=== PATIENT | female | born 1960 | race Caucasian/White ===

== ENCOUNTER 2019-04-23 20:34 | Inpatient (IN) | payer MEDICAID, SELFPAY ==
[2019-04-23 20:40] VITALS: BP 218/87; TEMP 36.8
--- NOTE | 2019-04-23 20:44 | W.ED.GENAD ---
Discharge Plan Disposition Patient Disposition: [facility] INPATIENT Condition: Improving Discharge Details Chief Complaint: Abd Prob Clinical Impression: Left sided abdominal pain, Altered bowel elimination due to intestinal ostomy Primary Care Provider: Hanane Martinez ED Provider: Ten Albrecht Home Meds and New Rx's Prescriptions: No Action docusate sodium [Colace] 100 mg Capsule 50 mg PO DAILY RF: 0 Medical Decision Making This is a 58-year-old female who presents today for severe abdominal pain. Patient had a colectomy on March 19 for diverticulitis. Over the last 24 hours she has had no output from her ostomy site, pain began this afternoon and is currently severe. Entire abdomen is diffusely tender throughout, guarding and rebound is present. Near absent bowel sounds. Patient does appear to be in notable pain and distress. Differential is highest for obstruction, postop perforation or infection, and less likely volvulus or atypical intussusception. We will treat the patient's pain, gently rehydrate, get a CT scan for further differentiation monitor closely. 10:[address] scan has returned, no evidence of obstruction. The stomach is notably distended, however there is no evidence of small bowel obstruction. Digital exam of the stoma for the patient's ostomy site shows easy invagination with no signs of obstruction. I did contact radiology and spoke with radiologist and they see no signs of obstruction distally anywhere else. Potential gastric outlet obstruction, but no radiographic evidence of this otherwise. Laboratory work-up shows white count of 12, no bandemia. Potassium 3.4, electrolytes otherwise normal. Lactate mildly elevated at 2 lipase normal. Patient still has no output from her ostomy site. This does concern me. The pain is improved with the Dilaudid, however she still has definite left-sided abdominal pain on palpation. I did contact surgery Dr. Wayne discussed the case and imaging findings with her. At this time she would like to keep the patient overnight for observation. We will place an NG tube, I have placed orders including continued hydration fluids at 150 cc/h, in addition to Ofirmev and Toradol being the primary means of pain control with morphine only being used for breakthrough pain. Patient will remain n.p.o. otherwise. I have extensively reviewed the treatment plan with the patient. I have addressed all patient concerns at this time. I have also discussed the plan with the admitting physician and they agree with the current assessment and plan and have agreed to assume responsibility for the patient. All parties demonstrate verbal understanding and agreement with our assessment and plan at this time. FINDINGS: There is minimal atelectasis within the lung bases. There are degenerative changes of the spine. There is no liver mass. There is no intrahepatic biliary dilatation. The patient is status post cholecystectomy. There are no ductal stones. The pancreas is unremarkable. The spleen is unremarkable. There is no adrenal mass. There is no hydronephrosis. There are no renal calculi. There is no perinephric stranding. There is no renal mass. The aorta is normal in caliber. The IVC is normal in caliber. There is no retroperitoneal adenopathy. There is no mesenteric adenopathy. The stomach is filled with food. There is no gastric wall thickening. The small bowel loops in the upper abdomen are nondistended with no bowel wall thickening. There are changes of left-sided colostomy. There is some feces seen within the colon and some scattered colonic diverticuli. There is some edema within the subcutaneous fat likely due to recent surgery. In the pelvis: A normal appendix is seen within the right lower quadrant. The bladder is unremarkable. The patient is status post hysterectomy. There are no adnexal masses. There is no free fluid within the pelvis. There is no inguinal adenopathy. There is no pelvic adenopathy. There are postop changes of the rectosigmoid colon. IMPRESSION: 1. Left-sided colostomy. Stranding of the mesenteric fat likely due to recent surgery. 2. The stomach is distended with food. No small bowel obstruction is identified. Thank you for allowing us to participate in the care of your patient. Dictated and Authenticated by: Smuan Bledsoe MD 04/23/2019 9:28 PM Eastern Time ([place] & [place]) HPI General Date/Time Provider Initiated Documentation: 04/23/19 20:35. HPI Narrative: 58-year-old female with no significant past medical history but a past surgical history positive for cholecystectomy, hysterectomy, umbilical hernia repair x2, with diverticulitis and subsequent colectomy and wound VAC on April 08 of this year, performed by Dr. Hodge of the [facility], surgery was performed at [facility] though. Patient recently moved to [place]. Patient states that she has been having normal output from her ostomy until yesterday, she has not had any output for the last 24 hours, she developed mild pain earlier this afternoon which is subsequently become severe pain this evening. She has had no vomiting, but does admit to nausea. Pain is described as stabbing crampy and severe. There was a small amount of blood at her ostomy site earlier today. She denies any fever or chills. She denies any chest pain or urinary symptoms. Wound VAC is still in place. No other complaints at this time. Related Data Home Medications Medication Instructions Recorded Confirmed docusate sodium [Colace] 50 mg PO DAILY 04/23/19 04/23/19 Allergies Allergy/AdvReac Type Severity Reaction Status Date / Time No Known Allergies Allergy Unverified 04/23/19 20:59 Review of Systems All systems reviewed & are unremarkable except as noted in HPI and below PFSH Medical History (Updated 04/23/19 @ 22:11 by Ten Albrecht DO) Diverticulitis (Chronic) Surgical History (Updated 04/23/19 @ 21:05 by Magaly Ballard) History of (Chronic) History of cholecystectomy (Chronic) History of colostomy (Acute) History of hernia repair (Chronic) History of partial colectomy (Acute) Social History Smoking/Tobacco Use Status: Unknown Do you feel safe at home: Yes Do you feel safe in your relationship?: Yes Exam Narrative Exam Narrative: 1.Const: Well-nourished, Well-developed, appearing stated age 2.Eyes: PERRL, no conjunctival injection, and symmetrical lids. 3.ENT: Atraumatic external nose and ears. Moist MM. Neck: Symmetric, trachea midline, No thyromegaly. 4.CVS: +S1/S2, No murmurs or gallops. Peripheral pulses 2+ and equal in all extremities. Brisk capillary refill in all extremities. 5.RESP: Unlabored respiratory effort. Clear to auscultation bilaterally. No wheezes rales or rhonchi 6.GI: Tense abdomen, mild distention, near absent bowel sounds, notable tenderness with voluntary guarding throughout. No tenderness over the stoma itself, however the remainder of the surrounding abdomen is exquisitely tender. Wound VAC in place with no redness erythema or drainage. Stoma itself is pink/reddish, small amount of minimal blood. Palpation of the ostomy site allows digital invagination without difficulty, no signs of ostomy site obstruction. 7.MSK: Normocephalic/Atraumatic, Extremities w/o deformity or ttp No cyanosis or clubbing, Normal movement of all extremities 8.Skin: Warm, Dry. No rashes or lesions. 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 Sensation grossly intact, no focal neurologic deficits. 10.Psych: (AAO) x3. Appropriate mood and affect
[2019-04-23] MEDS: HYDROmorphone 2 MG/ML VIAL 1 MG IVP (20:49)
[2019-04-23] MEDS: Normal Saline 1,000 ML 1000 ML IV (20:50)
--- NOTE | 2019-04-23 20:56 | DI.CT_ITS ---
EXAM: CT ABDOMEN PELVIS W CLINICAL HISTORY: Recent colectomy, distention, no output for 24 hrs TECHNIQUE: Post IV contrast. Without oral contrast. COMPARISON: No exams were available for comparison FINDINGS: The lung bases show mild dependent changes. The liver, spleen, pancreas, kidneys and adrenals are un remarkable. The patient is status post cholecystectomy and hysterectomy. There are surgical clips in the anterior abdominal wall. The left sided colostomy is seen. There is some stranding in this a lorne which is likely secondary to the recent surgery. There is sigmoid diverticulosis. There is no ev idence of bowel obstruction. There is no free air or free fluid. The appendix appears normal. Bladder is unremarkable. The aorta is calcified and shows slight focal dilatation 2.2 cm. IMPRESSION: Status post left lower quadrant colostomy. There is stranding in the fat surrounding the ostomy pres umably related to recent surgery. There is no evidence of obstruction.
[2019-04-23] MEDS: Omnipaque 350 MG/ML 100 ML BTL IJ (20:57)
[2019-04-23 21:00] LABS: Abs Immature Grans 0.02 k/cumm (0.0-0.09); Absolute Basophil Count 0.08 k/cumm (0.0-0.2); Absolute Eosinophil Count 0.59 k/cumm (0.0-0.7); Absolute Lymphocyte Count 4.84 k/cumm (1.2-3.4); Absolute Neutrophil Count 6.21 k/cumm (1.2-6.7); Basophils % 0.6; Eosinophils % 4.7; HCT 43.1 % (36.0-46.0); HGB 14.3 g/dL (12.0-15.5); Immature Grans % 0.2 %; Lymphocytes % 38.3; Mean Corp. HGB Concentration 33.2 g/dL (32.0-36.0); Mean Corpuscular Hemoglobin 30.4 pg (27.0-33.0); Mean Corpuscular Volume 91.7 fL (80-95); Mean Platelet Volume 9.5 fL (8.0-11.0); Monocytes % 7.1; Neutrophils % 49.1; Platelet Count 371 x1000/uL (130-400); RBC Distribution Width 14.8 % (11.7-14.6); White Blood Cell Count 12.65 k/cumm (4.4-10.8)
[2019-04-23 21:14] LABS: ALT 22 U/L (14-59); AST 17 U/L (15-37); Albumin 3.5 g/dL (3.4-5.0); Alkaline Phosphatase 104 U/L (46-116); BUN 16 mg/dL (7-18); Bilirubin, Total 0.2 mg/dL (0.2-1.0); CREATININE 0.81 mg/dL (0.55-1.02); Calcium 9.1 mg/dL (8.5-10.1); Chloride 105 mmol/L (98-107); Glucose 159 mg/dL (74-106); Lipase 110 U/L (73-393); Potassium 3.4 mmol/L (3.5-5.1); Sodium 141 mmol/L (136-145); Total Protein 7.7 g/dL (6.4-8.2)
--- NOTE | 2019-04-23 21:29 | DI.VRAD_ITS ---
PROCEDURE INFORMATION: Exam: CT Abdomen And Pelvis With Contrast Exam date and time: 04/23/2019 8:44 PM Age: 58 years old Clinical indication: Abdominal pain; Generalized; Prior surgery; Patient HX: Recent colectomy, distention; Additional info: No output for 24 hours TECHNIQUE: Imaging protocol: Computed tomography of the abdomen and pelvis with intravenous contrast. COMPARISON: No relevant prior studies available. FINDINGS: There is minimal atelectasis within the lung bases. There are degenerative changes of the spine. There is no liver mass. There is no intrahepatic biliary dilatation. The patient is status post cholecystectomy. There are no ductal stones. The pancreas is unremarkable. The spleen is unremarkable. There is no adrenal mass. There is no hydronephrosis. There are no renal calculi. There is no perinephric stranding. There is no renal mass. The aorta is normal in caliber. The IVC is normal in caliber. There is no retroperitoneal adenopathy. There is no mesenteric adenopathy. The stomach is filled with food. There is no gastric wall thickening. The small bowel loops in the upper abdomen are nondistended with no bowel wall thickening. There are changes of left-sided colostomy. There is some feces seen within the colon and some scattered colonic diverticuli. There is some edema within the subcutaneous fat likely due to recent surgery. In the pelvis: A normal appendix is seen within the right lower quadrant. The bladder is unremarkable. The patient is status post hysterectomy. There are no adnexal masses. There is no free fluid within the pelvis. There is no inguinal adenopathy. There is no pelvic adenopathy. There are postop changes of the rectosigmoid colon. IMPRESSION: 1. Left-sided colostomy. Stranding of the mesenteric fat likely due to recent surgery. 2. The stomach is distended with food. No small bowel obstruction is identified. Dictated and Authenticated by: Suman Bledsoe MD. Ordering:ANITA Caal MD
[2019-04-23] MEDS: Ondansetron 4 MG/2 ML VIAL (22:30)
[2019-04-23] MEDS: ACETAMINOPHEN 1,000 MG/100 ML BTL 400 MG IVPB (22:30)
[2019-04-23 22:32] VITALS: BP 168/90; PULSE 74; RESP 18; TEMP 36.8; O2SAT 98
[2019-04-23 23:09] VITALS: BP 119/74; PULSE 63; RESP 18; TEMP 36; O2SAT 97
[2019-04-23] MEDS: Normal Saline 1,000 ML 150 ML IV (23:44)
[2019-04-24 03:28] VITALS: BP 136/69; PULSE 62; RESP 17; TEMP 36.6; O2SAT 97
[2019-04-24] MEDS: Normal Saline 1,000 ML 150 ML IV (03:44)
[2019-04-24] MEDS: ACETAMINOPHEN 1,000 MG/100 ML BTL 400 MG IVPB (03:56)
[2019-04-24 07:03] VITALS: BP 135/83; PULSE 63; RESP 16; TEMP 35.8; O2SAT 96
[2019-04-24 07:41] LABS: Bilirubin Negative (Negative); Blood Trace-intact (Negative); Clarity Clear (Clear); Glucose Negative (Negative); Ketones Negative (Negative); Leukocyte Esterase Negative (Negative); Nitrite Negative (Negative); Specific Gravity 1.015 (1.005-1.025); Urobilinogen 0.2 EU/dL (Up TO 0.2); pH 5.5 (5-8)
[2019-04-24 07:52] LABS: Bacteria Rare HPF (Negative); C & S Indicated? No; Casts Negative LPF (Negative); Crystals Negative HPF (Negative); Epithelial Cells Few HPF (Negative); Mucus Negative (Negative); WBC 0-2 HPF (0-5)
--- NOTE | 2019-04-24 09:11 | INITIAL_ITS ---
- If Service Date Differs Date of service: 04/24/19 Time of Service: 09:11 Care Management Initial Assess REASON FOR HOSPITALIZATION:: Abdominal pain, Gastric Distension PAST MEDICAL HISTORY/PAST SURGICAL HISTORY:: Patient had a colectomy on March 19 for ruptured diverticulitis. She now has an ostomy, and a wound vac. Tobacco dependency. Surgical hx: , hattie, colostomy, hernia repair, partial colectomy. PREVIOUS FUNCTIONAL STATUS/SOCIAL/FAMILY SUPPORTS:: Jahaira lives in [place], [place] her main support is her sister in law Kimberly Holm. Jahaira is at baseline indepedent with ADL's, meals and other daily functions. 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 Jahaira currently has a NG tube in place. Jahaira states she wants to have a cigarette and does not want nicotine replacement. Jahaira states she has home health services for the wound vac and ostomy she receives dressing changes three times a week. ADVANCE DIRECTIVES:: None on file she states she has the forms however she has not completed them to date. Has patient been provided with information about the portal?: Yes Did the patient sign up for the portal?: No CODE STATUS:: Full Code INSURANCE COVERAGE / FINANCIAL ISSUES:: [place] Medicaid pending, she was told last week it was all set and will be rectroactive CURRENT HOME/COMMUNITY SERVICES/EQUIPMENT:: Home Health nursing, wound vac PRIMARY CARE PHYSICIAN:: Hanane Martinez, [place] POTENTIAL DISCHARGE NEEDS:: Follow up with surgical provider and resumption of home health services for nursing as time of discharge. PATIENT/FAMILY EDUCATION NEEDS:: Discharge edcuation, limitations and follow up plan of care including ask me three and self management. ANTICIPATED BARRIERS TO DISCHARGE:: None TRANSPORTATION:: Via private car with family at time of discharge PLAN:: Jahaira will be discharged home when medically ready. Her sister in law will bring in the dressing supplies for the wound vac to change prior to discharge. She will need resumption of home health services nursing on discharge instructions. CM to continue to assess for potential discharge needs.
[2019-04-24 09:40] LABS: Lactate 0.7 mmol/L (0.6-1.4)
[2019-04-24 09:41] LABS: HCT 39.7 % (36.0-46.0); HGB 12.7 g/dL (12.0-15.5); Mean Corpuscular Hemoglobin 29.9 pg (27.0-33.0); Mean Corpuscular Volume 93.4 fL (80-95); Mean Platelet Volume 9.2 fL (8.0-11.0); Platelet Count 302 x1000/uL (130-400); RBC 4.25 m/cumm (4.00-5.20); RBC Distribution Width 14.7 % (11.7-14.6); White Blood Cell Count 9.54 k/cumm (4.4-10.8)
[2019-04-24 09:49] LABS: Anion Gap 9.3 mmol/L (3-11); BUN 13 mg/dL (7-18); CO2 26.7 mmol/L (21.0-32.0); CREATININE 0.52 mg/dL (0.55-1.02); Calcium 8.4 mg/dL (8.5-10.1); Chloride 108 mmol/L (98-107); Glucose 92 mg/dL (74-106); Magnesium 1.7 mg/dL (1.8-2.4); Potassium 3.5 mmol/L (3.5-5.1); Sodium 144 mmol/L (136-145)
--- NOTE | 2019-04-24 09:56 | HPE_ITS ---
Date of service: 04/24/19 Time of Service: 09:57 Assessment and Plan Assessment and plan (1) Constipation: Status: Acute Assessment and plan: A\\ 58 year old female status post Hartmans procedure for diverticulitis. Was doing well up until yesterday when she had increased abdominal pain around the ostomy. Also had had no stool through her ostomy in 24 hours. Has hx of intermittent constipation and takes Colace as needed. CT scan showed no ileus or obstruction. Only abnormality was gastric distention with food. Moderate amount of stool in her large bowel on CT scan. Digital exam of ostomy reveals a small ostomy with a tight passage through the fascia. No stool in this part of the large bowel on exam. Ostomy otherwise healthy Minimal output from NG tube. Increased gas from ostomy today, but still no stool P\\ Clamp NG tube Mag Citrate Continue NPO until there is some stool through her ostomy Will get records from [facility] Qualifiers: Constipation type: unspecified constipation type Qualified Code(s): K59.00 - Constipation, unspecified (2) Gastric distention: Status: Acute Assessment and plan: A\\ Stomach full of food on CT scan. Minimal output from the NG tube Abdominal exam benign P\\ Clamp Ng tube and check residuals (3) Hypomagnesemia: Status: Acute Assessment and plan: A\\ Magnesium low at 1.7 P\\ replace with 2 GM IV recheck in am (4) DVT prophylaxis: Status: Acute Assessment and plan: P\\ Lovenox SQ daily Ambulate TID at least History of Present Illness History of Present Illness Chief Complaint: Abdominal pain Consults Consult date: 04/23/19 Requesting physician: Ten Albrecht Narrative: This is a 58-year-old female who presented to [facility] ER for severe abdominal pain last night. Patient had a colectomy on March 19 for ruptured diverticulitis. Patient states that she was seen at [facility] ER on March 12 for abdominal pain and was diagnosed with uncomplicated diverticulitis. She was discharged on antibiotics. Her pain worsened on March 16 and she went back to the ER at [facility]. She was admitted for IV antibiotics. 3 days later she developed worsening pain dispite IV antibiotics and was taken to the OR for Hartmans procedure. She has an end colostomy in the LLQ and a wound vac. Prior to arrival in our ER she had had no output from her ostomy site for 24 hours. She ate breakfast as usual yesterday and then went grocery shopping with her Brother. [place] she came home she had some cramping abdominal pain which she thought was from hunger and so she ate lunch. She then developed progressively worse pain. her caregiver tried giving her an enema without results. She did call her surgeon regarding taking a laxative but was told to go to the ER. CT scan reviewed by me today shows a stomach full of food. No abnormal dilatation of the small or large bowel. There is a fair amount of stool throughout the colon. There is some mild mesenteric inflammation. No abscess is identified. No bowel wall thickening or gastric wall thickening. Patient denies history of Gastritis or PUD. She does seem to get constipated easily. This morning she feels a lot better and is starting to have increased gas from her ostomy but no stool yet. She has required minimal pain medication overnight. Her NG tube has put out minimal amount of clear fluid tinged with blood. her only complaint this morning is that of a sore throat from the Ng tube Labs reviewed and are unremarkable. Lactate is back to normal. Magnesium is low. Review of Systems Constitutional Constitutional: Denies fatigue, Denies fever(s), Denies headache(s), Denies malaise, Reports poor appetite and Denies weight loss Eyes Eyes: Denies change in vision ENT Ears, Nose, Mouth, and Throat: Denies dysphagia, Denies headache(s) and Denies hoarseness Cardiovascular Cardiovascular: Denies chest pain, Denies chest pain at rest, Denies chest pain with activity, Denies rapid heart rate, Denies irregular heart rhythm, Denies palpitations, Denies dyspnea and Denies dyspnea on exertion Respiratory Respiratory: Denies chest congestion, Denies cough, Denies dyspnea and Denies dyspnea on exertion Gastrointestinal Gastrointestinal: Reports as per HPI, Denies dysphagia, Denies dyspepsia and Denies heartburn Genitourinary Genitourinary: Reports system reviewed and no additional complaints, except as docu, Denies hematuria and Denies dysuria Musculoskeletal Musculoskeletal: Reports system reviewed and no additional complaints, except as docu Integumentary/Breasts Skin/Breast: Reports system reviewed and no additional complaints, except as docu Neurologic Neurologic: Reports system reviewed and no additional complaints, except as docu and Denies headache(s) Psychiatric Psychiatric: Reports system reviewed and no additional complaints, except as docu Endocrine Endocrine: Reports system reviewed and no additional complaints, except as docu, Denies fatigue and Denies palpitations Hematologic/Lymphatic Hematologic/Lymphatic: Denies easy bleeding, Denies easy bruising and Denies lymphadenopathy Allergic/Immunologic Allergic/Immunologic: Reports system reviewed and no additional complaints, except as docu [facility] Medical History (Updated 04/24/19 @ 10:17 by Sherri Wayne MD) Diverticulitis (Chronic) Surgical History (Updated 04/23/19 @ 21:05 by Magaly Ballard) History of (Chronic) History of cholecystectomy (Chronic) History of colostomy (Acute) History of hernia repair (Chronic) History of partial colectomy (Acute) Social History (Updated 04/24/19 @ 09:57 by Sherri Wayne MD) Smoking/Tobacco Use Status: Never Alcohol Intake: current Alcohol Intake frequency: holidays/special occasions only Drug use: Never Do you feel safe at home: Yes Do you feel safe in your relationship?: Yes Meds Home Medications and Allergies Home Medications Medication Instructions Recorded Confirmed Type docusate sodium [Colace] 50 mg PO DAILY 04/23/19 04/23/19 History Allergies Allergy/AdvReac Type Severity Reaction Status Date / Time No Known Allergies Allergy Unverified 04/23/19 20:59 Exam Const General: cooperative, comfortable and no acute distress Nutritional Appearance: obese Orientation: alert and oriented x3 HENMT Head: normocephalic and atraumatic Eyes Pupils: PERRL Resp Effort & Inspection: normal respiratory effort Auscultation: clear to auscultation bilaterally Cardio Rate: regular rate Rhythm: regular rhythm Heart Sounds: no gallops, no murmurs and no rubs GI Inspection: normal to inspection Palpation: soft, no hepatosplenomegaly and nontender Auscultation: hypoactive bowel sounds Other: Ostomy- [place], very small Digital exam- very tight going through the fascia. No stool past the fascia Wound vac in place Results Labs Result diagrams: 04/24/19 09:30 04/24/19 09:30 Labs: Laboratory Results - last 24 hr 04/23/19 04/23/19 04/23/19 20:50 20:50 20:50 WBC 12.65 H RBC 4.70 Hgb 14.3 Hct 43.1 MCV 91.7 MCH 30.4 MCHC 33.2 RDW 14.8 H Plt Count 371 MPV 9.5 Immature Gran % 0.2 Neutrophils % 49.1 Lymphocytes % 38.3 Monocytes % 7.1 Eosinophils % 4.7 Basophils % 0.6 Absolute Neutrophils 6.21 Absolute Lymphocytes 4.84 H Absolute Monocytes 0.90 H Absolute Eosinophils 0.59 Absolute Basophils 0.08 Sodium 141 Potassium 3.4 L Chloride 105 Carbon Dioxide 26.0 Anion Gap 10.0 BUN 16 Creatinine 0.81 Estimated GFR/1.73 m2 >= 60.00 Glucose 159 H Lactate 2.0 H Calcium 9.1 Magnesium Total Bilirubin 0.2 AST 17 ALT 22 Alkaline Phosphatase 104 Total Protein 7.7 Albumin 3.5 Lipase 110 Urine Color Urine Clarity Urine pH Ur Specific [place] Urine Protein Urine Ketones Urine Blood Urine Nitrite Urine Bilirubin Urine Urobilinogen Ur Leukocyte Esterase Urine RBC Urine WBC Ur Epithelial Cells Urine Crystals Urine Bacteria Urine Casts Urine Mucus Ur Culture Indicated? Urine Glucose Patient ABO/Rh Antibody Screen 04/23/19 04/24/19 04/24/19 20:51 07:16 09:30 WBC RBC Hgb Hct MCV MCH MCHC RDW Plt Count MPV Immature Gran % Neutrophils % Lymphocytes % Monocytes % Eosinophils % Basophils % Absolute Neutrophils Absolute Lymphocytes Absolute Monocytes Absolute Eosinophils Absolute Basophils Sodium 144 Potassium 3.5 Chloride 108 H Carbon Dioxide 26.7 Anion Gap 9.3 BUN 13 Creatinine 0.52 L Estimated GFR/1.73 m2 >= 60.00 Glucose 92 D Lactate Calcium 8.4 L Magnesium 1.7 L Total Bilirubin AST ALT Alkaline Phosphatase Total Protein Albumin Lipase Urine Color Yellow Urine Clarity Clear Urine pH 5.5 Ur Specific [place] 1.015 Urine Protein Negative Urine Ketones Negative Urine Blood Trace-intact H Urine Nitrite Negative Urine Bilirubin Negative Urine Urobilinogen 0.2 Ur Leukocyte Esterase Negative Urine RBC 3-5 H Urine WBC 0-2 Ur Epithelial Cells Few Urine Crystals Negative Urine Bacteria Rare Urine Casts Negative Urine Mucus Negative Ur Culture Indicated? No Urine Glucose Negative Patient ABO/Rh O Positive Antibody Screen Negative 04/24/19 04/24/19 09:30 09:30 WBC 9.54 RBC 4.25 Hgb 12.7 Hct 39.7 MCV 93.4 MCH 29.9 MCHC 32.0 RDW 14.7 H Plt Count 302 MPV 9.2 Immature Gran % Neutrophils % Lymphocytes % Monocytes % Eosinophils % Basophils % Absolute Neutrophils Absolute Lymphocytes Absolute Monocytes Absolute Eosinophils Absolute Basophils Sodium Potassium Chloride Carbon Dioxide Anion Gap BUN Creatinine Estimated GFR/1.73 m2 Glucose Lactate 0.7 Calcium Magnesium Total Bilirubin AST ALT Alkaline Phosphatase Total Protein Albumin Lipase Urine Color Urine Clarity Urine pH Ur Specific [place] Urine Protein Urine Ketones Urine Blood Urine Nitrite Urine Bilirubin Urine Urobilinogen Ur Leukocyte Esterase Urine RBC Urine WBC Ur Epithelial Cells Urine Crystals Urine Bacteria Urine Casts Urine Mucus Ur Culture Indicated? Urine Glucose Patient ABO/Rh Antibody Screen Last Vital Signs Temp 96.4 F L 04/24/19 07:03 Pulse 63 04/24/19 07:03 Resp 16 04/24/19 07:03 BP 135/83 04/24/19 07:03 Pulse Ox 96 04/24/19 07:03
[2019-04-24] MEDS: Normal Saline Flush 10 ML SYR IVP (10:21)
[2019-04-24] MEDS: Pantoprazole 40 MG VIAL IVP (10:21)
[2019-04-24] MEDS: Magnesium Citrate 300 ML BTL PO (10:22)
[2019-04-24] MEDS: Normal Saline 1,000 ML 80 ML IV (10:22)
[2019-04-24] MEDS: MAGNESIUM SULFATE 2 GM/50 ML BAG IVPB (10:29)
[2019-04-24] MEDS: Polyethylene Glycol 3350 17 GM PACKET PO ×2 (10:37→21:32)
--- NOTE | 2019-04-24 10:56 | PHARADMIT ---
Admission Pharmacy Clinical Review Abdominal pain, gastric distention Code Status Full Code Current Weight 92.6 kg Renally Cleared and Narrow Therapeutic Index Meds CrCl~56ml/min QTc Value / Action Taken n/a BP Control, Fever BP 135/83 Afebrile Electrolytes reviewed K+ 3.5 Mag 1.7 (2gram IV x1) DVT Prophylaxis NONE at this time Opiate Usage / Scheduled Bowel Regimen Ordered no/yes Plt/SCr for Heparin / Enoxaparin Plt 302 SCr 0.52 INR for Warfarin H/H stable, WBC/Bands H/H 12.7/39.7 WBC 9.54 Antibiotic appropriateness n/a Cultures and Sensitivities n/a Surgical ABX d/c within 24 hr DM control / Insulin Dosing Heart Failure (Check EF%) (DRAGAN's, B-Block, Diuretics) IV to PO Switch IV APAP ordered scheduled but pt refusing, expect Surgeon to change Home Meds Reviewed Home Meds Not Ordered ok Comments Mag Citrate, Miralax for constipation- does have colostomy w/no stool x 24hr CT scan: no ileus or obstruction diet: npo
--- NOTE | 2019-04-24 14:20 | PGE_ITS ---
Date of Service Date of service: 04/24/19 Time of Service: 14:20 Assessment and Plan Assessment and plan (1) Constipation: Status: Acute Assessment and plan: Having stool and air come through the Ostomy. Stool is in small pellets. D/C NG Continue to sip on the Mag Citrate MAy sip on Mariel[employer] Pastora and ice chips Qualifiers: Constipation type: unspecified constipation type Qualified Code(s): K59.00 - Constipation, unspecified Subjective Subjective Interval history since last seen: Patient feeling a bit better. No pain. HAs been up a couple of times. HAs some stool in the bag as well as air. Feels full when trying to have the Mag Citrate placed through the NG tube. HAd a small amount of emesis of Mag Citrate. Fells the fullness disapear every time she has some stool come through the ostomy Exam GI Palpation: soft and nontender Auscultation: normoactive bowel sounds (increased from this am) Objective Objective Clinical Data: Abnormal lab results 04/23/19 04/23/19 04/23/19 Range/Units 20:50 20:50 20:50 WBC 12.65 H (4.4-10.8) k/cumm RDW 14.8 H (11.7-14.6) % Absolute Lymphocytes 4.84 H (1.2-3.4) k/cumm Absolute Monocytes 0.90 H (0.11-0.7) k/cumm Potassium 3.4 L (3.5-5.1) mmol/L Chloride (98-107) mmol/L Creatinine (0.55-1.02) mg/dL Glucose 159 H (74-106) mg/dL Lactate 2.0 H (0.6-1.4) mmol/L Calcium (8.5-10.1) mg/dL Magnesium (1.8-2.4) mg/dL Urine Blood (Negative) Urine RBC (0-2) HPF 04/24/19 04/24/19 04/24/19 Range/Units 07:16 09:30 09:30 WBC (4.4-10.8) k/cumm RDW 14.7 H (11.7-14.6) % Absolute Lymphocytes (1.2-3.4) k/cumm Absolute Monocytes (0.11-0.7) k/cumm Potassium (3.5-5.1) mmol/L Chloride 108 H (98-107) mmol/L Creatinine 0.52 L (0.55-1.02) mg/dL Glucose (74-106) mg/dL Lactate (0.6-1.4) mmol/L Calcium 8.4 L (8.5-10.1) mg/dL Magnesium 1.7 L (1.8-2.4) mg/dL Urine Blood Trace-intact H (Negative) Urine RBC 3-5 H (0-2) HPF Vital Signs Temperature 96.4 F L 04/24/19 07:03 Temperature Source Tympanic 04/24/19 07:03 Pulse 63 04/24/19 07:03 Pulse Rhythm Regular 04/24/19 07:30 Respiratory Rate 16 04/24/19 07:03 Respiratory Effort Non-Labored 04/24/19 07:30 Respiratory Depth Normal 04/24/19 07:30 Respiratory Pattern Normal 04/24/19 07:30 Blood Pressure 135/83 04/24/19 07:03 Pulse Oximetry 96 04/24/19 07:03 Oxygen Delivery Method Room Air 04/24/19 07:03 Oxygen Flow Rate 0 04/24/19 07:03 Pain Level 0 04/24/19 03:28 Intake & Output 04/23/19 04/24/19 04/24/19 23:59 11:59 23:59 Intake Total 1100 / 1100 1695 / 1695 Output Total 100 / 100 1000 / 1275 275 / 1275 Balance 1000 / 1000 695 / 420 -275 / 420 Weight 197 lb 15.99 oz 204 lb 2.369 oz Intake: IV 1100 / 1100 1695 / 1695 Output: Gastric Drainage 50 / 250 200 / 250 Right Nare 50 / 250 200 / 250 Urine 950 / 950 Emesis 100 / 100 75 / 75 Other: Urine Color Yellow Urine Appearance Clear Urine Odor None Emesis Description Undigested Food Clear/Water Voiding Methods Toilet Laboratory Results WBC 9.54 k/cumm (4.4-10.8) 04/24/19 09:30 RBC 4.25 m/cumm (4.00-5.20) 04/24/19 09:30 Hgb 12.7 g/dL (12.0-15.5) 04/24/19 09:30 Hct 39.7 % (36.0-46.0) 04/24/19 09:30 MCV 93.4 fL (80-95) 04/24/19 09:30 MCH 29.9 pg (27.0-33.0) 04/24/19 09:30 MCHC 32.0 g/dL (32.0-36.0) 04/24/19 09:30 RDW 14.7 % (11.7-14.6) H 04/24/19 09:30 Plt Count 302 x1000/uL (130-400) 04/24/19 09:30 MPV 9.2 fL (8.0-11.0) 04/24/19 09:30 Immature Gran % 0.2 % 04/23/19 20:50 Neutrophils % 49.1 04/23/19 20:50 Lymphocytes % 38.3 04/23/19 20:50 Monocytes % 7.1 04/23/19 20:50 Eosinophils % 4.7 04/23/19 20:50 Basophils % 0.6 04/23/19 20:50 Absolute Neutrophils 6.21 k/cumm (1.2-6.7) 04/23/19 20:50 Absolute Lymphocytes 4.84 k/cumm (1.2-3.4) H 04/23/19 20:50 Absolute Monocytes 0.90 k/cumm (0.11-0.7) H 04/23/19 20:50 Absolute Eosinophils 0.59 k/cumm (0.0-0.7) 04/23/19 20:50 Absolute Basophils 0.08 k/cumm (0.0-0.2) 04/23/19 20:50 Sodium 144 mmol/L (136-145) 04/24/19 09:30 Potassium 3.5 mmol/L (3.5-5.1) 04/24/19 09:30 Chloride 108 mmol/L (98-107) H 04/24/19 09:30 Carbon Dioxide 26.7 mmol/L (21.0-32.0) 04/24/19 09:30 Anion Gap 9.3 mmol/L (3-11) 04/24/19 09:30 BUN 13 mg/dL (7-18) 04/24/19 09:30 Creatinine 0.52 mg/dL (0.55-1.02) L 04/24/19 09:30 Estimated GFR/1.73 m2 >= 60.00 (mL/min/1.73m2) 04/24/19 09:30 Glucose 92 mg/dL (74-106) D 04/24/19 09:30 Lactate 0.7 mmol/L (0.6-1.4) 04/24/19 09:30 Calcium 8.4 mg/dL (8.5-10.1) L 04/24/19 09:30 Magnesium 1.7 mg/dL (1.8-2.4) L 04/24/19 09:30 Total Bilirubin 0.2 mg/dL (0.2-1.0) 04/23/19 20:50 AST 17 U/L (15-37) 04/23/19 20:50 ALT 22 U/L (14-59) 04/23/19 20:50 Alkaline Phosphatase 104 U/L (46-116) 04/23/19 20:50 Total Protein 7.7 g/dL (6.4-8.2) 04/23/19 20:50 Albumin 3.5 g/dL (3.4-5.0) 04/23/19 20:50 Lipase 110 U/L (73-393) 04/23/19 20:50 Urine Color Yellow (Yellow) 04/24/19 07:16 Urine Clarity Clear (Clear) 04/24/19 07:16 Urine pH 5.5 (5-8) 04/24/19 07:16 Ur Specific [place] 1.015 (1.005-1.025) 04/24/19 07:16 Urine Protein Negative mg/dL (Negative) 04/24/19 07:16 Urine Ketones Negative mg/dL (Negative) 04/24/19 07:16 Urine Blood Trace-intact (Negative) H 04/24/19 07:16 Urine Nitrite Negative (Negative) 04/24/19 07:16 Urine Bilirubin Negative (Negative) 04/24/19 07:16 Urine Urobilinogen 0.2 EU/dL (Up TO 0.2) 04/24/19 07:16 Ur Leukocyte Esterase Negative (Negative) 04/24/19 07:16 Urine RBC 3-5 HPF (0-2) H 04/24/19 07:16 Urine WBC 0-2 HPF (0-5) 04/24/19 07:16 Ur Epithelial Cells Few HPF (Negative) 04/24/19 07:16 Urine Crystals Negative HPF (Negative) 04/24/19 07:16 Urine Bacteria Rare HPF (Negative) 04/24/19 07:16 Urine Casts Negative LPF (Negative) 04/24/19 07:16 Urine Mucus Negative (Negative) 04/24/19 07:16 Ur Culture Indicated? No 04/24/19 07:16 Urine Glucose Negative mg/dL (Negative) 04/24/19 07:16 Patient ABO/Rh O Positive 04/23/19 20:51 Antibody Screen Negative 04/23/19 20:51
[2019-04-24 16:14] VITALS: BP 155/92; PULSE 65; RESP 17; TEMP 36.8; O2SAT 97
--- NOTE | 2019-04-24 18:06 | NUR.NOTE ---
Nursing Note: Beginning of the shift, pt called staff to empty colostomy bag and fha underwriter did it emptied 400 cc liquidy stool while she was on bed.just after cleaning pt bag, pt requested to go to toilet for voiding and independently get out of bed just need assistance on IV pole then pt walked in the hallway without difficulty and back to bed with family at bedside. At 1750 hrs., pt called and the fha underwriter responded and asked the fha underwriter to empty the colostomy bag for second time, The fha underwriter asked her if we can do it in the bathroom but she stated No!, I can't walk because I have cramps then fha underwriter offered we will do it on bed with my supervision, it upsets her and said No! I am also nauseous then verbally and physically aggressive that moment and got out of herself to bathroom and throwing the fha underwriter out of the door. Education of [place] on appliance care not able to be implemented because of pt behavior presented. insulation cupola charger nurse took over.
[2019-04-24 19:29] VITALS: BP 145/90; PULSE 62; RESP 16; TEMP 36.9; O2SAT 97
[2019-04-24 23:05] VITALS: BP 131/76; PULSE 61; RESP 18; TEMP 36.5; O2SAT 95
[2019-04-25] MEDS: Normal Saline 1,000 ML 80 ML IV (00:24)
[2019-04-25 03:32] VITALS: BP 142/82; PULSE 69; RESP 18; TEMP 36.8; O2SAT 94
[2019-04-25 06:38] LABS: Magnesium 2.2 mg/dL (1.8-2.4)
--- NOTE | 2019-04-25 07:26 | W.PM.PROGNOT ---
Date of Service Date of service: 04/25/19 Time of Service: 07:26 Assessment and Plan Assessment and plan (1) Constipation: Status: Acute Assessment and plan: (+) Flatus and Stool in ostomy Wound vac in place, due to be changed today. Patient will need to shower prior to this being changed. Her gmgwdw-[id number]-nel will be bringing in her dressing material's. Diet was advanced to a soft diet for breakfast. Encouraged her to sit out of bed for meals and to ambulate throughout the day. D/C home potentially later today if tolerating soft diet. Qualifiers: Constipation type: unspecified constipation type Qualified Code(s): K59.00 - Constipation, unspecified Subjective Subjective Interval history since last seen: Patient reports that she is feeling much better this morning. Denies any nausea or vomiting. (+) Flatus and stool through her ostomy. Exam Const General: cooperative, healthy appearing and comfortable Resp Effort & Inspection: normal respiratory effort, no audible wheezes and no cough GI Inspection: normal to inspection and incision (Woudn vac in place. ) Palpation: soft, no guarding and nontender Objective Objective Clinical Data: Abnormal lab results 04/24/19 04/24/19 04/24/19 Range/Units 07:16 09:30 09:30 RDW 14.7 H (11.7-14.6) % Chloride 108 H (98-107) mmol/L Creatinine 0.52 L (0.55-1.02) mg/dL Calcium 8.4 L (8.5-10.1) mg/dL Magnesium 1.7 L (1.8-2.4) mg/dL Urine Blood Trace-intact H (Negative) Urine RBC 3-5 H (0-2) HPF Vital Signs Temperature 36.8 C 04/25/19 03:32 Temperature Source Tympanic 04/25/19 03:32 Pulse 69 04/25/19 03:32 Pulse Rhythm Regular 04/25/19 00:28 Respiratory Rate 18 04/25/19 03:32 Respiratory Effort Non-Labored 04/25/19 00:28 Respiratory Depth Normal 04/25/19 00:28 Respiratory Pattern Normal 04/25/19 00:28 Blood Pressure 142/82 H 04/25/19 03:32 Pulse Oximetry 94 L 04/25/19 03:32 Oxygen Delivery Method Room Air 04/25/19 03:32 Oxygen Flow Rate 0 04/25/19 03:32 Pain Level 0 04/25/19 03:32 Intake & Output 04/24/19 04/25/19 04/25/19 18:59 06:59 18:59 Intake Total 1335 / 2335 1000 / 2335 Output Total 2625 / 3125 500 / 3125 Balance -1290 / -790 500 / -790 Weight 92.6 kg 92.6 kg Intake: IV 1095 / 2095 1000 / 2095 Oral 240 / 240 Output: Gastric Drainage 250 / 250 Right Nare 250 / 250 Urine 1700 / 1900 200 / 1900 Stool 600 / 900 300 / 900 Emesis 75 / 75 Other: Urine Color Yellow Yellow Urine Appearance Clear Clear Urine Odor None Stool Size Large Stool Characteristics Liquid Emesis Description Clear/Water Voiding Methods Toilet Toilet Laboratory Results WBC 9.54 k/cumm (4.4-10.8) 04/24/19 09:30 RBC 4.25 m/cumm (4.00-5.20) 04/24/19 09:30 Hgb 12.7 g/dL (12.0-15.5) 04/24/19 09:30 Hct 39.7 % (36.0-46.0) 04/24/19 09:30 MCV 93.4 fL (80-95) 04/24/19 09:30 MCH 29.9 pg (27.0-33.0) 04/24/19 09:30 MCHC 32.0 g/dL (32.0-36.0) 04/24/19 09:30 RDW 14.7 % (11.7-14.6) H 04/24/19 09:30 Plt Count 302 x1000/uL (130-400) 04/24/19 09:30 MPV 9.2 fL (8.0-11.0) 04/24/19 09:30 Immature Gran % 0.2 % 04/23/19 20:50 Neutrophils % 49.1 04/23/19 20:50 Lymphocytes % 38.3 04/23/19 20:50 Monocytes % 7.1 04/23/19 20:50 Eosinophils % 4.7 04/23/19 20:50 Basophils % 0.6 04/23/19 20:50 Absolute Neutrophils 6.21 k/cumm (1.2-6.7) 04/23/19 20:50 Absolute Lymphocytes 4.84 k/cumm (1.2-3.4) H 04/23/19 20:50 Absolute Monocytes 0.90 k/cumm (0.11-0.7) H 04/23/19 20:50 Absolute Eosinophils 0.59 k/cumm (0.0-0.7) 04/23/19 20:50 Absolute Basophils 0.08 k/cumm (0.0-0.2) 04/23/19 20:50 Sodium 144 mmol/L (136-145) 04/24/19 09:30 Potassium 3.5 mmol/L (3.5-5.1) 04/24/19 09:30 Chloride 108 mmol/L (98-107) H 04/24/19 09:30 Carbon Dioxide 26.7 mmol/L (21.0-32.0) 04/24/19 09:30 Anion Gap 9.3 mmol/L (3-11) 04/24/19 09:30 BUN 13 mg/dL (7-18) 04/24/19 09:30 Creatinine 0.52 mg/dL (0.55-1.02) L 04/24/19 09:30 Estimated GFR/1.73 m2 >= 60.00 (mL/min/1.73m2) 04/24/19 09:30 Glucose 92 mg/dL (74-106) D 04/24/19 09:30 Lactate 0.7 mmol/L (0.6-1.4) 04/24/19 09:30 Calcium 8.4 mg/dL (8.5-10.1) L 04/24/19 09:30 Magnesium 2.2 mg/dL (1.8-2.4) 04/25/19 05:55 Total Bilirubin 0.2 mg/dL (0.2-1.0) 04/23/19 20:50 AST 17 U/L (15-37) 04/23/19 20:50 ALT 22 U/L (14-59) 04/23/19 20:50 Alkaline Phosphatase 104 U/L (46-116) 04/23/19 20:50 Total Protein 7.7 g/dL (6.4-8.2) 04/23/19 20:50 Albumin 3.5 g/dL (3.4-5.0) 04/23/19 20:50 Lipase 110 U/L (73-393) 04/23/19 20:50 Urine Color Yellow (Yellow) 04/24/19 07:16 Urine Clarity Clear (Clear) 04/24/19 07:16 Urine pH 5.5 (5-8) 04/24/19 07:16 Ur Specific [place] 1.015 (1.005-1.025) 04/24/19 07:16 Urine Protein Negative mg/dL (Negative) 04/24/19 07:16 Urine Ketones Negative mg/dL (Negative) 04/24/19 07:16 Urine Blood Trace-intact (Negative) H 04/24/19 07:16 Urine Nitrite Negative (Negative) 04/24/19 07:16 Urine Bilirubin Negative (Negative) 04/24/19 07:16 Urine Urobilinogen 0.2 EU/dL (Up TO 0.2) 04/24/19 07:16 Ur Leukocyte Esterase Negative (Negative) 04/24/19 07:16 Urine RBC 3-5 HPF (0-2) H 04/24/19 07:16 Urine WBC 0-2 HPF (0-5) 04/24/19 07:16 Ur Epithelial Cells Few HPF (Negative) 04/24/19 07:16 Urine Crystals Negative HPF (Negative) 04/24/19 07:16 Urine Bacteria Rare HPF (Negative) 04/24/19 07:16 Urine Casts Negative LPF (Negative) 04/24/19 07:16 Urine Mucus Negative (Negative) 04/24/19 07:16 Ur Culture Indicated? No 04/24/19 07:16 Urine Glucose Negative mg/dL (Negative) 04/24/19 07:16 Patient ABO/Rh O Positive 04/23/19 20:51 Antibody Screen Negative 04/23/19 20:51
[2019-04-25 07:33] VITALS: BP 145/95; PULSE 64; RESP 17; TEMP 36.6; O2SAT 95
[2019-04-25] MEDS: Polyethylene Glycol 3350 17 GM PACKET PO (08:11)
[2019-04-25] MEDS: Normal Saline Flush 10 ML SYR IVP (09:48)
[2019-04-25] MEDS: Pantoprazole 40 MG VIAL IVP (09:48)
--- NOTE | 2019-04-25 10:22 | NUR.NOTE ---
Nursing Note: PT TOLERATED HER BREAKFAST WELL. NOTIFIED AND SAID SHE'D BE UP TO SEE PT AFTER HER Cases today which would be after lunch. Pt wants to leave by 1130 or 12n or she will sign out AMA. notified of pts intent.
--- NOTE | 2019-04-25 11:01 | W.NUTCONSULT ---
Date of service: 04/25/19 Time of Service: 11:01 Nutritional Consult ASSESSMENT: 58 year old female admitted with abdominal pain, constipation, s/p Hartmans procedure (03/19/19) for diverticulitis with ostomy, reports no BM for several days. BMI indicates morbid obesity. Following soft, high fiber diet and receiving IV hydration. Will follow and adjust meal plan as needed. INTERVENTION: soft , high fiber diet MONITORING AND EVALUATION: weight, po intake, labs Time Spent in Nutritional Counseling and Treatment: 0 time spent face to face
--- NOTE | 2019-04-25 11:20 | W.PM.DS.N ---
Documented by User: JESSIE Landers 04/25/19 11:30 Date of service: 04/25/19 Time of Service: 11:20 DS: Diagnosis Discharge Diagnosis (1) Constipation: Status: Acute Discharge Plan Disposition Patient Disposition: HOME Condition: Good Discharge Details Chief Complaint: Abd Prob Clinical Impression: Left sided abdominal pain, Altered bowel elimination due to intestinal ostomy Reason For Visit: ABDOMIN PAIN, GASTRIC DISTENTION Admit Date/Time: 04/23/19 21:48 Admit Provider: Sherri Wayne Attending Provider: Sherri Wayne Primary Care Provider: Hanane Martinez ED Provider: Ten Albrecht Hospital Course Hospital Course: 58 y/o female s/p rahman procedure for diverticulitis presented to the ER with complaints of abdominal pain around her ostomy and no stool out of her ostomy x 24 hours. She was admitted on 04/24/19 and was treated with mag citrate and miralax. She had (+) flatus and stool during the day on 04/24, showing her constipation had resolved. Her diet was progressed to a soft diet in the AM of 04/25/19 which the patient tolerated without any complaints of abdominal pain. She will be D/C to home. She is eager to return home and states that her Yovvap-ug-Ymy will assist her in changing her wound vac for she does not wish to wait. She was instructed to follow up with her surgeon from [facility]. Restart Home Health as directed by her surgeon Home Meds and New Rx's Prescriptions: Continued docusate sodium [Colace] 100 mg Capsule 50 mg PO DAILY RF: 0 Discharge Instructions Additional Instructions: Continue with taking daily Colace and Miralax to maintain soft stools to prevent constipation. Ensure they are you staying hydrated also to reduce your risk of becoming constipated. Stand Alone Forms: Nursing Discharge Form Referrals: [facility] [place] [Other] (follow up with your surgeon) Activity:: Activity as Tolerated Equipment/Supplies:: No Equipment Needed Diet:: Soft, Low Fiber diet Discharge Orders Discharge Orders: Discharge Order (Routine); Ordered 04/25/19 Ordered By: Miranda Magallon Discharge Data Discharge Date/Time-TO BE ENTERED AT DEPARTURE: 04/25/19 12:00 DS: Summary Status at Discharge Functional status at discharge: independent ambulation Overall status at discharge: patient is progressing back to baseline Mental Status: mental status grossly normal Speech and Movement: speech and movement normal Mood: congruent mood Affect: normal affect Exam Const General: cooperative, healthy appearing and comfortable Resp Effort & Inspection: normal respiratory effort, no audible wheezes and no cough GI Inspection: normal to inspection and incision (Woudn vac in place. ) Palpation: soft, no guarding and nontender Psych Mental Status: mental status grossly normal Speech and Movement: speech and movement normal Mood: congruent mood Affect: normal affect DS: Data Vitals/I&O Vitals and I&O: Vital Signs Temperature 36.6 C 04/25/19 07:33 Temperature Source Tympanic 04/25/19 07:33 Pulse 64 04/25/19 07:33 Pulse Rhythm Regular 04/25/19 08:44 Respiratory Rate 17 04/25/19 07:33 Respiratory Effort Non-Labored 04/25/19 08:44 Respiratory Depth Normal 04/25/19 08:44 Respiratory Pattern Normal 04/25/19 08:44 Blood Pressure 145/95 H 04/25/19 07:33 Pulse Oximetry 95 04/25/19 07:33 Oxygen Delivery Method Room Air 04/25/19 07:33 Oxygen Flow Rate 0 04/25/19 07:33 Pain Level 0 04/25/19 07:33 Intake & Output 04/24/19 04/25/19 04/25/19 18:59 06:59 18:59 Intake Total 1335 / 2335 1000 / 2335 804 / 804 Output Total 2625 / 3125 500 / 3125 150 / 150 Balance -1290 / -790 500 / -790 654 / 654 Weight 92.6 kg 92.6 kg Intake: IV 1095 / 2095 1000 / 2095 804 / 804 Oral 240 / 240 Output: Gastric Drainage 250 / 250 Right Nare 250 / 250 Urine 1700 / 1900 200 / 1900 Stool 600 / 900 300 / 900 150 / 150 Emesis 75 / 75 Other: Urine Color Yellow Yellow Urine Appearance Clear Clear Urine Odor None Stool Size Large Stool Characteristics Liquid Liquid Emesis Description Clear/Water Voiding Methods Toilet Toilet Toilet Data Completed and Pending Labs on day of discharge: Labs from last 24 hours 04/25/19 05:55 Magnesium 2.2 [facility] Medical History (Updated 04/24/19 @ 10:17 by Sherri Wayne MD) Diverticulitis (Chronic) Surgical History (Updated 04/23/19 @ 21:05 by Magaly Ballard) History of (Chronic) History of cholecystectomy (Chronic) History of colostomy (Acute) History of hernia repair (Chronic) History of partial colectomy (Acute) Social History (Updated 04/24/19 @ 09:57 by Sherri Wayne MD) Smoking/Tobacco Use Status: Never Alcohol Intake: current Alcohol Intake frequency: holidays/special occasions only Drug use: Never Do you feel safe at home: Yes Do you feel safe in your relationship?: Yes Documented by User: Sherri Wayne MD 04/25/19 13:29 Discharge Plan Disposition Patient Disposition: HOME Condition: Good Discharge Details Chief Complaint: Abd Prob Clinical Impression: Left sided abdominal pain, Altered bowel elimination due to intestinal ostomy Reason For Visit: ABDOMIN PAIN, GASTRIC DISTENTION Admit Date/Time: 04/23/19 21:48 Admit Provider: Sherri Wayne Attending Provider: Sherri Wayne Primary Care Provider: Hanane Martinez ED Provider: Ten Albrecht Hospital Course Hospital Course: 58 y/o female s/p rahman procedure for diverticulitis presented to the ER with complaints of abdominal pain around her ostomy and no stool out of her ostomy x 24 hours. She was admitted on 04/24/19 and was treated with mag citrate and miralax. She had (+) flatus and stool during the day on 04/24, showing her constipation had resolved. Her diet was progressed to a soft diet in the AM of 04/25/19 which the patient tolerated without any complaints of abdominal pain. She will be D/C to home. She is eager to return home and states that her Dxxbbk-ap-Cle will assist her in changing her wound vac for she does not wish to wait. She was instructed to follow up with her surgeon from [facility]. Restart Home Health as directed by her surgeon Home Meds and New Rx's Prescriptions: Continued docusate sodium [Colace] 100 mg Capsule 50 mg PO DAILY RF: 0 Discharge Instructions Additional Instructions: Continue with taking daily Colace and Miralax to maintain soft stools to prevent constipation. Ensure they are you staying hydrated also to reduce your risk of becoming constipated. Stand Alone Forms: Nursing Discharge Form Referrals: [facility] [place] [Other] (follow up with your surgeon) Activity:: Activity as Tolerated Equipment/Supplies:: No Equipment Needed Diet:: Soft, Low Fiber diet Discharge Orders Discharge Orders: Discharge Order (Routine); Ordered 04/25/19 Ordered By: Miranda Magallon Discharge Data Discharge Date/Time-TO BE ENTERED AT DEPARTURE: 04/25/19 12:00 [facility] Medical History (Updated 04/24/19 @ 10:17 by Sherri Wayne MD) Diverticulitis (Chronic) Surgical History (Updated 04/23/19 @ 21:05 by Magaly Ballard) History of (Chronic) History of cholecystectomy (Chronic) History of colostomy (Acute) History of hernia repair (Chronic) History of partial colectomy (Acute) Social History (Updated 04/24/19 @ 09:57 by Sherri Wayne MD) Smoking/Tobacco Use Status: Never Alcohol Intake: current Alcohol Intake frequency: holidays/special occasions only Drug use: Never Do you feel safe at home: Yes Do you feel safe in your relationship?: Yes
--- NOTE | 2019-04-25 13:42 | PDOC.CMDIS ---
- If Service Date Differs Date of service: 04/25/19 Time of Service: 13:43 LACE Index Scoring Tool - Questions: Length of Stay (in days): 2 Acuity (Admit via E.D.?): Yes E.D. Visits: 1 - Answers: Total Score: 6 Risk of Readmission: Low Risk Care Management Discharge Reason for Hospitalization: Abdominal pain, Gastric Distension Discharge Plan: Jahaira will be discharged home with a resumption of home health nursing. She will transport via priavte vehicle with a friend and follow up with her surgeon and PCP. Patient/Family Education Needs: Discharge and follow up plans, limitations and Ask Me Three. Services Needed at Discharge: Home Health Care Services
== END 2019-04-25 12:00 | disposition home or self-care (01) | DRG 395 ==
LOC: ER 22:11 → MS 22:41
PROVIDERS: Admitting Provider Surgery; Emergency Provider Student in an Organized Health Care Education/Training Program; PCP Hospitalist; Visit Provider Surgery
DX: K94.03 Colostomy malfunction (principal); K59.00 Constipation, unspecified; Y83.6 Removal of other organ (partial) (total) as the cause of abnormal reaction of the patient, or of later complication, without mention of misadventure at the time of the procedure; K31.89 Other diseases of stomach and duodenum; Z90.49 Acquired absence of other specified parts of digestive tract
CPT/HCPCS: 36415; 80048; 80053; 83690; 85027; 86850; 86900; 86901; 96361; 96374; 96375; 99222; 99223; 99233; 99238; 99285; NC; 74177; 81003; 81015; 83605; 83735; 85025; J0131; J2405; J3490

== ENCOUNTER 2020-04-24 13:26 | Emergency (ER) | payer MEDICAID, SELFPAY ==
[2020-04-24] VITALS (25 sets, daily range): BP systolic 107–153; BP diastolic 49–101; PULSE 64–90; RESP 12–26; TEMP 36.3; O2SAT 88–98
--- NOTE | 2020-04-24 13:45 | RT.EKG_ITS ---
APPROVED REPORT Exam: Resting ECG Patient Location: E HR:87 bpm ECG Measurements Heart Rate 87 AXIS TX 142 P 10 QRSd 64 QRS 18 QT 384 T 88 QTc 462 Conclusion Sinus rhythm...normal P axis, V-rate 60- 99 Nonspecific T abnormalities, lateral leads...T <-0.10mV, I aVL V5 V6 I have reviewed and interpreted ECG and agree with software generated interpretation.
[2020-04-24] MEDS: Ondansetron 4 MG/2 ML VIAL IVP (14:04)
[2020-04-24] MEDS: Normal Saline Flush 10 ML SYR IVP ×2 (14:04→15:11)
[2020-04-24] MEDS: Normal Saline 1,000 ML 1000 ML IV (14:04)
[2020-04-24 14:06] LABS: Absolute Basophil Count 0.08 10^3/uL (0.0-0.2); Absolute Monocyte Count 1.39 10^3/uL (0.1-0.8); Basophils % 0.4; Eosinophils % 1.3; HCT 51.5 % (36.0-46.0); Immature Grans % 0.5; MCH 30.8 pg (27.0-33.0); MCV 93.3 fL (80-95); MPV 9.6 fL (8.0-11.0); Neutrophils % 62.8; Nucleated RBC 0 %; Platelet Count 340 10^3/uL (130-400); RBC 5.52 10^6/uL (3.93-5.22); RDW 12.8 % (11.7-14.6); RDW-SD 44.4 fL; WBC 19.81 10^3/uL (4.4-10.8)
[2020-04-24 14:07] LABS: Absolute Eosinophil Count 0.26 10^3/uL (0.0-0.7); Absolute Lymphocyte Count 5.55 10^3/uL (1.2-3.4); Absolute Neutrophil Count 12.44 10^3/uL (1.2-6.7)
[2020-04-24 14:18] LABS: Diff Comment Agrees w/ Instrument; RBC Morphology Normal
[2020-04-24 14:21] LABS: ALT 29 U/L (14-59); AST 18 U/L (15-37); Albumin 3.5 g/dL (3.4-5.0); Alkaline Phosphatase 113 U/L (46-116); Anion Gap 12.6 mmol/L (3-11); BUN 22 mg/dL (7-18); Bilirubin, Total 0.5 mg/dL (0.2-1.0); CO2 24.4 mmol/L (21.0-32.0); CREATININE 0.8 mg/dL (0.55-1.02); Calcium 9.8 mg/dL (8.5-10.1); Chloride 101 mmol/L (98-107); Glucose 128 mg/dL (74-106); Magnesium 2.2 mg/dL (1.8-2.4); Sodium 138 mmol/L (136-145); Total Protein 7.9 g/dL (6.4-8.2)
[2020-04-24 14:22] LABS: Troponin I < 0.05 ng/mL (<0.06)
--- NOTE | 2020-04-24 14:38 | ED.GENADUL_ITS ---
Discharge Plan Disposition Patient Disposition: [facility] Condition: Serious Discharge Details Clinical Impression: Small bowel obstruction Primary Care Provider: Hanane Martinez ED Provider: Konstantin Miller Home Meds and New Rx's Prescriptions: No Action albuterol 90 mcg/actuation Aerosol 90 mcg INHALATION PRN PRNRF: 0 Discharge Data Discharge Date/Time-TO BE ENTERED AT DEPARTURE: 04/24/20 20:55 Medical Decision Making <Ladonna Sandoval - Last Filed: 04/25/20 12:19> 59-year-old female presents to the ED with chief complaint of lower abdominal pain, nausea and vomiting for the last 3 days. She does have a history of diverticulosis and diverticulitis with resection surgery done in September of last year at [facility]. She states that she always has some sort of pain since the surgery but it has worsened over the last 3 days. She states that she is unable to even tolerate water by mouth. She denies any fever, no diarrhea, she denies any problems urinating or burning with urination. She is a current every day smoker. She denies any shortness of breath or trouble breathing. She has a past medical history of diverticulitis, colostomy partial colectomy, cholecystectomy, . She does not currently have a colostomy. She states that the pain is intermittent and waxes and wanes describes as sharp. At this time work-up ordered including CBC, CMP, EKG, troponin, urinalysis, blood cultures x2 be ordered, glucose is 128 Labs show white blood cell count of 19.81, hemoglobin 17.0, hematocrit 51.5, 1550: Spoke with radiologist regarding CT appears patient has a bowel obstruction related to the abdominal wall hernia. 1614: Surgery paged. FINDINGS: ABDOMEN: Lung Bases: Dependent atelectasis. Liver: There is decreased attenuation of the liver consistent with fatty infiltration. No measurable mass. The liver measures 21 cm in length. Portal, Superior Mesenteric, and Splenic Veins: Unremarkable. Gallbladder and Biliary Tract: Status post cholecystectomy. No biliary ductal dilatation. Pancreas: Normal density, no abnormal calcifications or inflammatory process. Spleen: Normal. Adrenals: No masses seen. Kidneys: Normal size, contour and axis. No radiodense stones or obstructive uropathy. No masses seen. Abdominal Aorta: Abdominal portion non-dilated. Moderate atherosclerosis. Bowel: There is a paraumbilical hernia containing a loop of small bowel and a small amount of fluid. The bowel proximal to the hernia is eyaf-ll-nwisbqfvef dilated. The bowel distal to the hernia is of normal caliber. (Series 5, images 487 through 581). The findings are suspicious for small-bowel obstruction. Appendix is unremarkable. Colonic diverticulosis but no evidence of acute diverticulitis. Peritoneal Cavity: No ascites, collection or mesenteric inflammatory response. No free air. Lymph Nodes: Within normal limits. Bones: Within normal limits for the patient's age. Soft Tissues: Please see above. PELVIS: Bladder: Symmetric distention, no gross wall thickening. Reproductive Organs: Status post hysterectomy. Lymph Nodes: Within normal limits. Bones: Within normal limits for the patient's age. IMPRESSION: Findings most suggestive of a small bowel obstruction secondary to the para umbilical hernia. Results of this exam have been verbally communicated with provider. Case discussed with oncoming provider JESSIE Leigh lactate ordered and added onto labs. At this time surgical consult is pending. <JESSIE Barber - Last Filed: 04/24/20 21:33> I assumed care of this patient at 1600, diagnosis of small bowel obstruction already made. Lactate pending. Surgical consultation pending. Lactate 1.3 I received a call back from surgery, Dr. Carcamo, who personally reviewed the the case. Given her complicated past medical history, previous abdominal surgery, etc., she recommends transfer to [facility], higher level of care. I subsequently spoke with Dr. Rollins, surgery at [facility]. He is agreeable to accept transfer of the patient. He does recommend transferring the patient to the ER. Patient had initially declined an NG tube but after speaking with the patient again she was agreeable to NG tube placement. NG tube placement attempted twice both in the left nare, patient refused attempt in the right nare. Both attempts were unsuccessful. Patient declined a 3rd attempt. It was made very clear to the patient that the surgical team at [facility] felt as though the NG tube was necessary. Not placing the NG tube could directly result in aspiration, prolonged time on a ventilator, eventually . Patient declined. Tr ansportation here to transport patient to [facility] ER. A 3rd attempt was not made. Patient agreeable to transfer. All appropriate paperwork completed. The patient remained hemodynamically stable under my care. Medical Records Medical records reviewed: Yes I reviewed the patient's medical records. HPI <Ladonna Sandoval - Last Filed: 04/25/20 12:19> General Mode of arrival: ambulatory . Date/Time Provider Initiated Documentation: 04/24/20 13:48 . Limitations to Documentation: no limitations . Information obtained by: patient . HPI Narrative: 59-year-old female presents to the ED with chief complaint of lower abdominal pain, nausea and vomiting for the last 3 days. She does have a history of diverticulosis and diverticulitis with resection surgery done in September of last year at [facility]. She states that she always has some sort of pain since the surgery but it has worsened over the last 3 days. She states that she is unable to even tolerate water by mouth. She denies any fever, no diarrhea, she denies any problems urinating or burning with urination. She is a current every day smoker. She denies any shortness of breath or trouble breathing. She has a past medical history of diverticulitis, colostomy partial colectomy, cholecys tectomy, . She does not currently have a colostomy. She states that the pain is intermittent and waxes and wanes describes as sharp. Related Data Home Medications Medication Instructions Recorded Confirmed albuterol 90 mcg INHALATION PRN PRN 04/24/20 04/24/20 Allergies Allergy/AdvReac Type Severity Reaction Status Date / Time No Known Allergies Allergy Unverified 04/24/20 13:38 General Stated Complaint: Nausea/Vomit/Diar TAE: 3 Review of Systems <Ladonna Sandoval - Last Filed: 04/25/20 12:19> Narrative: Constitutional: Negative for weight loss, alert and oriented, well groomed, obese body habitus, appears uncomfortable. HEENT: Denies trauma, headaches, blurry vision, nasal discharge, sore throat, trouble swallowing. Chest: Denies chest pain, palpitations, irregular rhythm, hypertension. Respiratory: Denies Shortness of breath, cough, hemoptysis. GI: Denies diarrhea, constipation. Positive abdominal pain, nausea, vomiting x3 days : Denies dysuria, hematuria, flank pain, rectal bleeding. Neuro: Denies dizziness, blurry vision, weakness, syncope, headache or facial numbness. Hematologic: Denies easy bruising, intolerance to heat or cold, hair loss. PFSH <Ladonna Sandoval - Last Filed: 04/25/20 12:19> Medical History Diverticulitis Surgical History History of History of cholecystectomy History of colostomy History of hernia repair History of partial colectomy Social History Smoking/Tobacco Use Status: Current every day Tobacco Type: cigarettes Smoking risk assessment performed?: Yes Alcohol Intake: never Drug use: Never Substance use type: does not use Do you feel safe at home: Yes Do you feel safe in your relationship?: Yes Exam <Ladonna Sandoval - Last Filed: 04/25/20 12:19> Narrative Exam Narrative: Constitutional: Alert and oriented x3. Appears stated age. obese body habitus. Head: Normocephalic, no trauma. Eyes: Pupils PERRLA, Red reflex noted, EOM's intact. Eyelids symmetrical without lesions, discharge, or swelling. ENT: Bilateral TM's WNL, External ear normal to inspection, no mastoid TTP, swelling, or erythema, Nasal turbinates WNL, no nasal discharge. Normal dentition, Posterior pharynx WNL, no exudate. Chest: RRR, Normal S1, S2, distal pulses intact. Resp: Lungs clear to auscultation bilaterally, rales, or rhonchi. Patient has scattered wheezes throughout, does use albuterol and is a current daily smoker. O2 sat is 96% on room air. Abdominal: Obese habitus, very tender with palpation to the lower left quadrant and lower right quadrant, does have healed surgical scars noted midline vertically, pain increases with movement. Musculoskeletal: Normal gait, 5/5 strength to all four extremities. Skin: No suspicious rashes or lesions. Capillary refill less than 2 sec. Neurologic: Cranial nerves II-XII intact. Alert and oriented x 3. DTR's intact. Hematologic/Lymphatic: No ecchymosis, no lymphadenopathy. Course <Ladonna Sandoval - Last Filed: 04/25/20 12:19> Vital Signs Vital signs: Vital Signs Temperature 36.3 C L 04/24/20 13:36 Pulse 90 04/24/20 13:36 Respiratory Rate 20 04/24/20 13:36 Blood Pressure 153/101 H 04/24/20 13:36 Pulse Oximetry 96 04/24/20 13:36 Temperature 36.3 C L 04/24/20 13:36 Temperature Source Skin 04/24/20 13:36 Pulse 90 04/24/20 13:36 Respiratory Rate 20 04/24/20 13:36 Respiratory Effort 04/24/20 13:38 Blood Pressure 153/101 H 04/24/20 13:36 Blood Pressure Position Sitting 04/24/20 13:36 Pulse Oximetry 96 04/24/20 13:36 Oxygen Delivery Method Room Air 04/24/20 13:36 Oxygen Flow Rate 0 04/24/20 13:36 Pain Level 8 04/24/20 13:36 Lab/Test Results Lab/Test Results: Laboratory Tests Range/Units 04/24/20 04/24/20 13:52 13:52 WBC (4.4-10.8) 10^3/uL 19.81 H RBC (3.93-5.22) 10^6/uL 5.52 H Hgb (11.2-15.7) g/dL 17.0 H Hct (36.0-46.0) % 51.5 H MCV (80-95) fL 93.3 MCH (27.0-33.0) pg 30.8 MCHC (32.0-36.0) % 33.0 RDW (11.7-14.6) % 12.8 Plt Count (130-400) 10^3/uL 340 MPV (8.0-11.0) fL 9.6 Immature Gran % 0.5 Neutrophils % 62.8 Lymphocytes % 28.0 Monocytes % 7.0 Eosinophils % 1.3 Basophils % 0.4 Nucleated RBC % % 0 Absolute Neutrophils (1.2-6.7) 10^3/uL 12.44 H Absolute Lymphocytes (1.2-3.4) 10^3/uL 5.55 H Absolute Monocytes (0.1-0.8) 10^3/uL 1.39 H Absolute Eosinophils (0.0-0.7) 10^3/uL 0.26 Absolute Basophils (0.0-0.2) 10^3/uL 0.08 RBC Morphology Normal Sodium (136-145) mmol/L 138 Potassium (3.5-5.1) mmol/L 4.0 Chloride (98-107) mmol/L 101 Carbon Dioxide (21.0-32.0) mmol/L 24.4 Anion Gap (3-11) mmol/L 12.6 H BUN (7-18) mg/dL 22 H Creatinine (0.55-1.02) mg/dL 0.8 Estimated GFR/1.73 m2 (mL/min/1.73m2) >= 60.00 Glucose (74-106) mg/dL 128 H Calcium (8.5-10.1) mg/dL 9.8 Magnesium (1.8-2.4) mg/dL 2.2 Total Bilirubin (0.2-1.0) mg/dL 0.5 AST (15-37) U/L 18 ALT (14-59) U/L 29 Alkaline Phosphatase (46-116) U/L 113 Troponin I (<0.06) ng/mL < 0.05 Total Protein (6.4-8.2) g/dL 7.9 Albumin (3.4-5.0) g/dL 3.5 Sign Out <Ladonna Sandoval - Last Filed: 04/25/20 12:19> Sign Out Data: Sign Out Comment: Bowel Obstruction, Pending surgical consult, Carlos Alberto mendez initially at 1630 vasiliy. Last updated by Ladonna Sandoval at 04/24/20 16:37
[2020-04-24] MEDS: metroNIDAZOLE 500 MG/100 ML BAG 100 MG IVPB (15:11)
[2020-04-24] MEDS: Normal Saline - Diluent 50 ML VIAL IV (15:39)
[2020-04-24] MEDS: Omnipaque 350 MG/ML 100 ML BTL IJ (15:39)
--- NOTE | 2020-04-24 15:41 | DI.CT_ITS ---
EXAM: CT ABDOMEN PELVIS W CLINICAL HISTORY: Abdominal pain, hx diverticulitis and colectomy TECHNIQUE: Imaging Protocol: Axial computed tomography images with coronal and sagittal reformatted images were created and reviewed CONTRAST MATERIAL: Intravenous: Omnipaque 350 Contrast volume:100 mL Oral: No COMPARISON: CT CT ABDOMEN PELVIS W from 04/23/2019 FINDINGS: ABDOMEN: Lung Bases: Dependent atelectasis. Liver: There is decreased attenuation of the liver consistent with fatty infiltration. No measurable mass. The liver measures 21 cm in length. Portal, Superior Mesenteric, and Splenic Veins: Unremarkable. Gallbladder and Biliary Tract: Status post cholecystectomy. No biliary ductal dilatation. Pancreas: Normal density, no abnormal calcifications or inflammatory process. Spleen: Normal. Adrenals: No masses seen. Kidneys: Normal size, contour and axis. No radiodense stones or obstructive uropathy. No masses seen. Abdominal Aorta: Abdominal portion non-dilated. Moderate atherosclerosis. Bowel: There is a paraumbilical hernia containing a loop of small bowel and a small amount of fluid. The bowel proximal to the hernia is lwxj-el-mzdghicwtt dilated. The bowel distal to the hernia is o f normal caliber. (Series 5, images 487 through 581). The findings are suspicious for small-bowel o bstruction. Appendix is unremarkable. Colonic diverticulosis but no evidence of acute diverticulitis . Peritoneal Cavity: No ascites, collection or mesenteric inflammatory response. No free air. Lymph Nodes: Within normal limits. Bones: Within normal limits for the patient's age. Soft Tissues: Please see above. PELVIS: Bladder: Symmetric distention, no gross wall thickening. Reproductive Organs: Status post hysterectomy. Lymph Nodes: Within normal limits. Bones: Within normal limits for the patient's age. IMPRESSION: Findings most suggestive of a small bowel obstruction secondary to the para umbilical hernia. Results of this exam have been verbally communicated with provider. RADIATION DOSE DELIVERED: 1,306.85mGy.cm Total DLP DATA REPOSITORY: All CT scans at this facility are submitted to the National Radiology Data Registry (NRDR) Dose Index Registry (DIR) with the [employer] ([employer]). RADIATION OPTIMIZATION: All CT scans at this facility use at least one of these dose optimization te chniques: automated exposure control; mA and/or kV adjustment per patient size (includes targeted exa ms where dose is matched to clinical indication); or iterative reconstruction.
[2020-04-24 16:42] LABS: Lactate 1.3 mmol/L (0.6-1.4)
[2020-04-24 17:24] LABS: Troponin I < 0.05 ng/mL (<0.06)
== END 2020-04-24 20:55 | disposition short-term general hospital (02) ==
PROVIDERS: Registered Nurse Emergency; Emergency Provider Physician Assistant; PCP Hospitalist
DX: K42.0 Umbilical hernia with obstruction, without gangrene (principal); Y83.8 Other surgical procedures as the cause of abnormal reaction of the patient, or of later complication, without mention of misadventure at the time of the procedure
CPT/HCPCS: 36415; 80053; 87040; 93005; 96361; 96365; 96366; 96375; 99285; 74177; 81003; 83605; 83735; 84484; 85025; 93010; J2405; J3490

== ENCOUNTER 2020-08-01 01:26 | Outpatient (CLI) | payer MEDICAID, SELFPAY ==
--- NOTE | 2020-08-01 09:36 | DI.RAD_ITS ---
Exam(s) XR KNEE RT 4V+ EXAM: XR KNEE RT 4V+ CLINICAL HISTORY: RT KNEE PAIN, M25.561. TECHNIQUE: 2D digital imaging was performed. COMPARISON: No exams were available for comparison FINDINGS: There is no evidence of obvious acute fracture although there does appear to be a small joint effusio n. No obvious degenerative changes nor osseous lesions. On the frontal view there is a subtle verti mary grace line in the intercondylar region of the distal femur, possibly nutrient artery canal. IMPRESSION: DATA REPOSITORY: RADIATION DOSE DELIVERED:
--- NOTE | 2020-08-01 09:36 | DI.RAD_ITS ---
Exam(s) XR KNEE LT 4V+ EXAM: XR KNEE LT 4V+ CLINICAL HISTORY: LT KNEE PAIN, M25.562. TECHNIQUE: 2D digital imaging was performed. COMPARISON: CR XR KNEE RT 4V+ from 08/01/2020 FINDINGS: Four views of left knee reveal no evidence of fracture or prominent joint effusion. No obvious degen erative changes nor osseous lesions. No osteochondral defect. IMPRESSION: DATA REPOSITORY: RADIATION DOSE DELIVERED:
== END 2020-08-01 01:46 ==
PROVIDERS: PCP Hospitalist; Visit Provider Hospitalist
DX: M25.561 Pain in right knee (principal); M25.562 Pain in left knee; M25.461 Effusion, right knee
CPT/HCPCS: 73564

== ENCOUNTER 2020-10-19 03:57 | Outpatient (CLI) | payer MEDICAID, SELFPAY ==
--- NOTE | 2020-10-19 07:15 | DI.MRI_ITS ---
Exam(s) MR LOWER JOINT RT WO EXAM: MR LOWER JOINT RT WO CLINICAL HISTORY: RT KNEE PAIN, INTERNAL DERANGEMENT, M23.91 TECHNIQUE: Multiplanar multisequence MRI was performed.. COMPARISON: No exams were available for comparison FINDINGS: MR examination of the knee was performed according to the usual protocol. There is a small knee joint effusion. There is a 2 cm x 1 cm Gibbons's cyst noted. No significant bony signal abnormality seen. Medial tibiofemoral joint: There is irregular thinning of the articular cartilage of the medial femor al condyle medial tibial plateau. There is a mildly displaced tear of the posterior horn the medial meniscus which probably extends into the posterior attachment. The medial collateral ligament appear s intact. No posteromedial corner injury seen. Lateral tibiofemoral joint: The articular cartilage of the femur and tibia appears slightly thinned w ith no focal defect period. The meniscus and attachments appear intact. The lateral collateral liga ment complex and posterolateral corner structures appear intact, with the exception an apparent small cyst at the myotendinous junction of the popliteus which may represent an old tear.. Patellofemoral joint and extensor mechanism: The articular cartilage of the patellofemoral joint show s mild signal abnormality involving both the patellar and trochlear components without significant co ntour defect period. The superior and inferior patellar fat pads appear normal with no signal abnorm ality. The quadriceps tendon and patellar tendon appear intact with no evidence of a tear or significant bessie ma. The medial and lateral retinacula appear intact. Cruciate ligaments: Posterior cruciate ligament appears normal. Anterior cruciate ligament shows no evidence of a tear but does show diffuse abnormal signal consistent with degeneration. Tibiofibular joint: No specific abnormality involving the tibiofibular joint. IMPRESSION: Medial meniscal posterior horn/attachment tear. Degenerative articular cartilage changes of the medial tibiofemoral joint. Probable small old myotendinous junction tear of the popliteus with resulting chronic cyst. Degeneration of the anterior cruciate ligament without evidence of a tear DATA REPOSITORY:
== END 2020-10-19 04:17 ==
PROVIDERS: PCP Hospitalist; Visit Provider Student in an Organized Health Care Education/Training Program
DX: M23.8X1 Other internal derangements of right knee (principal); S83.241A Other tear of medial meniscus, current injury, right knee, initial encounter; X58.XXXA Exposure to other specified factors, initial encounter
CPT/HCPCS: 73721

== ENCOUNTER 2020-12-03 02:36 | Outpatient (CLI) | payer MEDICAID, SELFPAY ==
[2020-12-03 10:48] LABS: Source Nasal/Nares
[2020-12-03 14:17] LABS: COVID-19 PCR Negative (Negative)
== END 2020-12-03 02:37 | disposition home or self-care (01) ==
LOC: LBO 02:37
PROVIDERS: PCP Hospitalist; Visit Provider Student in an Organized Health Care Education/Training Program
DX: Z20.822 Contact with and (suspected) exposure to COVID-19 (principal); Z01.818 Encounter for other preprocedural examination
CPT/HCPCS: 87635

== ENCOUNTER 2020-12-04 11:03 | Day surgery (SDC) | payer MEDICAID, SELFPAY ==
[2020-12-04] VITALS (10 sets, daily range): BP systolic 100–174; BP diastolic 57–98; PULSE 61–81; RESP 12–26; TEMP 36–36.5; O2SAT 92–98; BMI 47.8
--- NOTE | 2020-12-04 10:27 | ANES.PREOP_ITS ---
General Info Date of Service Date Performed: 12/04/20 Height: 4 ft 10 in Weight: 103.873 kg Body Mass Index (BMI): 47.8 Surgical Procedure: Operation Date: 12/04/20 13:55 Proposed Procedures Side Surgeon p Knee Arthroscopy (R) partial medial meniscectomy Right Azar Johnson MD Meds Allergies and Home Medications Allergies Allergy/AdvReac Type Severity Reaction Status Date / Time No Known Allergies Allergy Unverified 12/04/20 11:34 Home Medication Medication Instructions Recorded albuterol 90 mcg INHALATION PRN PRN 04/24/20 senna 2 mg PO 12/04/20 Current Visit Medications: Current Medications Generic Name Dose Route Start Last Admin Trade Name Freq PRN Reason Stop Dose Admin Ringer's Solution 1,000 mls @ 80 mls/hr 12/04/20 06:00 IV 01/02/21 23:59 INFUSION MICHAEL Cefazolin Sodium 2,000 mg/ 100 mls @ 200 mls/hr 12/04/20 06:00 Sodium Chloride IVPB 12/04/20 16:00 PREOP MICHAEL IV Miscellaneous Supplies 1 each 12/04/20 06:00 Iv Access IV 01/02/21 23:59 DIRECTED MICHAEL Sodium Chloride 0 ml 12/04/20 06:00 Normal Saline Flush 10 Ml Syr IV 01/02/21 23:59 PRN PRN Sodium Chloride 0 ml 12/04/20 06:00 Normal Saline 10 Ml Vial IJ 01/02/21 23:59 DIRECTED PRN Sterile Water 0 ml 12/04/20 06:00 Water,Injection,Sterile 10 Ml Vial IJ 01/02/21 23:59 DIRECTED PRN PFSH Active Problems Active Problems: Problem Status Onset Code Left sided abdominal pain R10.9 Altered bowel elimination due to intestinal ostomy K94.19 Constipation K59.00 Gastric distention K31.89 Hypomagnesemia E83.42 DVT prophylaxis Z29.9 Internal derangement of right knee M23.91 Internal derangement of left knee M23.92 Medical History Medical History Anal fissure Diverticulitis History of anal fissures Surgical History Surgical History (Updated 12/04/20 @ 11:37 by Ya Ryan) 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 History of x2 History of cholecystectomy History of colostomy History of hernia repair umbilical x3 History of partial colectomy Hx of colonoscopy Status post hysterectomy Tobacco Smoking/Tobacco Use Status: Current every day Tobacco Type: cigarettes Smoking packs per day: 1 Smoking cigarettes per day: 20.0 Years smoked: 43 Smoking pack- years: 43.00 Alcohol Alcohol Intake: never Substance Use Substance use: Never Substance use type: does not use Vital Signs and Lab Results Lab Results Blood Type / Crossmatch: No Data to Display Complete Blood Count: No Data to Display Complete Metabolic Panel: No Data to Display Liver Function Panel: No Data to Display Coagulation Panel: No Data to Display Cardiac Panel: No Data to Display Arterial Blood Gas: No Data to Display Venous Blood Gas: No Data to Display Pancreas Panel: No Data to Display Thyroid Panel: No Data to Display Infectious Disease: Coronavirus (COVID-19)(PCR) Negative (Negative) 12/03/20 10:12/03/20 Coronavirus 2019 Source Nasal/Nares 12/03/20 10:12/03/20 Blood Cultures: No Data to Display Toxicology Panel: No Data to Display Imaging and Studies Imaging and Studies EKG Summary: 04/2020: sinus rhythm, normal P axis. Anesthesia Assessment and Plan Anesthesia History Personal History: No History of Anesthesia Complications Family History: No Family History of Anesthesia Complications Exercise Tolerance Exercise Tolerance: Metabolic Equivalents<4 Pertinent Negatives Pertinent Negatives: No Symptoms of GERD, No Major Cardiovascular Symptoms or Complaints, No Major Pulmonary Symptoms or Complaints and No History of CVA/TIA Cardiac & Pulmonary Exam Cardiac Exam: Normal S1/S2 Heart Sounds Pulmonary Exam: Clear Bilateral Breath Sounds Airway Exam Known Difficult Airway: No Mallampati Class: 3 Mouth Opening: Normal (> 3cm) Thyromental Distance: Greater than 3 cm Neck Range of Motion: Full ROM Neck Circumference: Normal Teeth Condition: Normal Dentition and Loose or Chipped (Two broken molars) Tooth Numberin. Patient indicated broken. Difficult to ascertain number of tooth 2. Patient indicated broken. Difficult to ascertain number of tooth ASA Classification ASA Score: ASA 3 Emergency Case?: No NPO Status NPO Status: NPO Clears >2 hours, Solids >8 hours Anesthesia Plan Resuscitation Status: Full Code Anesthesia Technique: General Anesthesia Airway Planned: Endotracheal Tube Monitors Used: Standard Monitors Preoperative Comments:: 60 yo female for knee scope. Sig PMHx: asthma (albut): Patient denies, reports bronchitis 6 years ago is reason for this diagnosis. Has not used albuterol since. previous anesthesia: mac grade 1 x 2, easy mask.
[2020-12-04] MEDS: Lactated Ringers 1,000 ML 80 ML IV (11:55)
--- NOTE | 2020-12-04 13:20 | W.PM.DSUDISC ---
Discharge Plan Disposition Patient Disposition: HOME Condition: Good Discharge Details Reason For Visit: Right knee internal derangement Attending Provider: Azar Johnsno Primary Care Provider: Hanane Martinez Home Meds and New Rx's Prescriptions: New acetaminophen 500 mg tablet 500 mg PO Q6H PRN (Reason: pain) Qty: 60 RF: 2 ibuprofen 600 mg tablet 600 mg PO TID PRN (Reason: pain) Qty: 60 RF: 0 hydrocodone-acetaminophen 5-325 mg tablet 1 tab PO Q6H PRN (Reason: severe pain) Qty: 4 RF: 0 Continued albuterol 90 mcg/actuation Aerosol 90 mcg INHALATION PRN PRNRF: 0 senna 187 mg Tablet 2 mg PO RF: 0 Discharge Instructions Stand Alone Forms: Alex Knee Arthroscopy Equipment/Supplies: Partial Weight Bearing Crutches Activity:: Elevate Remove Dressings/Wound Care:: 72 hours Shower/Bathe:: 72 hours Diet:: As Tolerated Discharge Orders Discharge Orders: Discharge Order (Routine); Ordered 12/04/20 Ordered By: Mavis Rodriguez DS: Diagnosis Discharge Diagnosis (1) Internal derangement of right knee: Status: Acute
[2020-12-04] MEDS: ceFAZolin 2,000 MG in Normal Saline 100 ML 200 MG IVPB (13:49)
[2020-12-04] MEDS: Bupivacaine 0.5% Pres-Free 30 ML VIAL (14:27)
[2020-12-04] MEDS: HYDROmorphone 2 MG/ML VIAL IVP ×2 (15:20→15:35)
[2020-12-04] MEDS: Normal Saline Flush 10 ML SYR IV (15:20)
--- NOTE | 2020-12-04 15:54 | W.ANESPOSTOP ---
Postoperative Evaluation Date, Time and Location Date Performed: 12/04/20 Time Performed: 15:55 Patient Location: PACU Vital Signs Most Recent Imported Vital Signs: Most Recent Vital Signs Temp Pulse Resp BP Pulse Ox 36.2 C L 63 12 125/68 93 12/04/20 15:51 12/04/20 15:51 12/04/20 15:51 12/04/20 15:51 12/04/20 15:51 Pain Score Most Recent Pain Score: Most Recent Pain Score Pain Level 5 12/04/20 15:51 Assessment Mental Status: Awake (Alert & Oriented to Patient Baseline) Airway and Respiratory Function: Patent airway with normal (patient baseline) respiratory exam Cardiovascular Function: Hemodynamically Stable Hydration Status: Adequately Hydrated Nausea & Vomiting: No Nausea or Vomiting Pain: Pain is tolerable per patient Peripheral Nerve Block: Patient did not receive a nerve block
--- NOTE | 2020-12-04 18:01 | ROE_ITS ---
Date of service: 12/04/20 Time of Service: 14:31 Operative Note Operative Note DATE OF PROCEDURE: 12/04/20 PRE-OP DIAGNOSIS: Right Knee Medial Meniscus Tear POST-OP DIAGNOSIS: same Right Knee Lateral Meniscus Tear PROCEDURE: Right knee arthroscopic partial medial and lateral meniscectomies SURGEON: Azar Johnson ANESTHESIA TYPE: General LMA/ETT Refer to Anesthesia Record ESTIMATED BLOOD LOSS: 0 PATHOLOGY: none sent TOURNIQUET TIME: 0 COMPLICATIONS: None Patient was transported to: PACU Patient's condition: stable Indications: I have seen Jahaira in clinic for symptoms of a meniscus tear. This was confirmed based on MRI and exam findings. Nonoperative measures were exhausted but disability and pain persisted. I discussed knee arthroscopy with meniscal intervention with the patient. I reviewed the risks of the procedure to include, but not limited to, bleeding, infection, pain, stiffness, damage to nerves or vessels, recurrence, blood clot. Despite these risks, the patient elected to proceed. Findings: A diagnostic arthroscopy was performed with the following findings: Suprapatellar Pouch: Mild inflammatory changes, no loose bodies Medial Compartment: Complex medial meniscal tear, only a small portion of meniscal root intact, focal areas of grade II chondromalacia, no loose bodies Notch: ACL and PCL were intact Lateral Compartment: Complex tearing of the lateral meniscus at the posterior horn, intact meniscal root, there were some areas of fissuring and focal grade II chondromalacia, mostly of the tibia, No loose bodies Patellofemoral Compartment: Some central grade II chondromalacia of the patella and trochlea, slight lateral maltracking Procedure Description: Jahaira was greeted in the preoperative holding area where the correct side was identified and marked. The consent was reviewed with the patient and signed. The history and physical was updated. All questions were answered. Jahaira was taken back to the operating room. The patient was placed into the sup ine position on the operating room table. All bony prominences were well padded. Prophylactic antibiotics in the form of cefazolin were administered. The right leg was then prepped with Chloraprep and draped in a standard fashion with stockinette and extremity drape. A timeout to confirm correct identity, side and site, procedure, allergies, anesthesia, and medical concerns was performed. The leg was placed into a pneumatic leg robertson, [id number]. A standard lateral portal was made at the lateral border of the patella tendon in line with the inferior pole of the patella, soft spot. The skin and deep tissue was incised sharply and the blunt trochar was inserted atraumatically. A diagnostic arthroscopy was performed and the findings are listed above. The suprapatellar pouch had only some mild inflammatory change. The patellofemoral articulation showed some central chondromalacia of the trochlea and the patella ridge as well as slight lateral tracking and extended position which localized into the trochlea in a flexed position. The lateral gutter had no loose bodies and the medial gutter had no loose bodies. The knee was brought into some valgus stress in extension to open the medial compartment. A medial portal was made, localized by a spinal needle. The portal was created with an #11 blade through skin and capsule under direct visualization avoiding any meniscal injury. A probe was then inserted into the medial compartment. The medial compartment was fully inspected. The chondral surface of the tibia showed grade I chondromalacia and the surface of the femur showed focal areas of grade II chondromalacia. The medial meniscus had a complex meniscal tear. There was a complex tear which extended into the root leaving only a small band of tissue attached to the root and the posterior aspect of the medial meniscus. There is also a vertical tear at the meniscocapsular junction in the body of the medial meniscus. The meniscal tissue quality was quite poor as I was able to penetrate my probe into the meniscus with very little effort.. After evaluation, the meniscus was debrided down to a stable base using a series of biters and arthroscopic paige. It was probed afterwards to confirm that the tear had been removed and the meniscus was stable. Unfortunately, given the complexity of the tear, there is little meniscus remaining in the posterior aspect of the medial compartment. There is a small band of tissue attached to the root and the capsule of the posterior knee but the near entirety of the posterior horn was unstable and of poor quality. The notch was then inspected which showed an intact ACL and an intact PCL. The leg was then brought into a figure of 4 position. The lateral compartment was fully inspected with the arthroscope and a probe. The chondral surface of the lateral femur showed only some fissuring. The chondral surface of the lateral tibia showed some focal areas of grade II chondromalacia. The lateral meniscus had a complex meniscal tear of the posterior horn and extending towards the root. The posterior root attachment was intact. After evaluation, the meniscus was debrided down to a stable base using a series of biters and arthroscopic paige. It was probed afterwards to confirm that the tear had been removed and the meniscus was stable. The arthroscope was brought back into the suprapatellar pouch and the leg was in full extension. The knee was thoroughly irrigated with the arthroscopic fluid on high flow and pressure. Inflow was stopped and excess fluid was removed. The wounds were closed with 4-0 Nylon. The knee was then anesthetized with 0.5% bupivacaine. They were dressed with Xeroform, 4x4 gauze, ABD pad, Kerlix and an DRAGAN wrap. A cryo-cuff was applied. The patient tolerated the procedure well and was returned to the Same Day Surgery area in a stable condition suffering no known complication.
== END 2020-12-04 17:03 | disposition home or self-care (01) ==
PROVIDERS: PCP Hospitalist; Visit Provider Student in an Organized Health Care Education/Training Program
PROC: (CPT 29870; principal; 2020-12-04 13:45)
DX: M23.251 Derangement of posterior horn of lateral meniscus due to old tear or injury, right knee (principal); M23.231 Derangement of other medial meniscus due to old tear or injury, right knee; M17.11 Unilateral primary osteoarthritis, right knee; M94.261 Chondromalacia, right knee
CPT/HCPCS: 29880; J0690; J1100; J1885; J2001; J2405; J2704

== ENCOUNTER 2021-02-05 07:26 | Inpatient (IN) | payer MEDICAID, SELFPAY ==
[2021-02-05] VITALS (95 sets, daily range): BP systolic 97–162; BP diastolic 57–100; PULSE 56–87; RESP 8–26; TEMP 36.3–36.8; O2SAT 89–97
[2021-02-05] MEDS: Normal Saline 1,000 ML 1000 ML IV (08:20)
--- NOTE | 2021-02-05 08:30 | W.ED.GENAD ---
Discharge Plan Disposition Patient Disposition: [facility] INPATIENT Condition: Improving Discharge Details Chief Complaint: Nausea/Vomit/Diar Clinical Impression: SBO (small bowel obstruction) Admit Date/Time: 02/05/21 16:37 Admit Provider: Mavis Carcamo Attending Provider: Mavis Carcamo Primary Care Provider: Hanane Martinez ED Provider: Beti Ward Discharge Data Discharge Date/Time-TO BE ENTERED AT DEPARTURE: 02/05/21 17:35 Medical Decision Making Patient is a pleasant 60-year-old female presents today with chief complaint of abdominal discomfort, nausea and vomiting. She reports that abdominal pain began at 10 AM yesterday. Has been persistent since then. States that the pain is fairly diffuse and indicates the central and left side of her abdomen is area of maximal pain. Feel that her abdomen is more bloated and distended than typical. States that she has vomited x3 this morning. Describes the vomit as brown. Had 2 very small loose bowel movement this morning. Denies any blood in her stool. She denies any fevers or chills. Patient denies any chest pain, shortness of breath. Past surgical history is pertinent for , cholecystectomy, colectomy with colostomy and reversal, hysterectomy. Past surgical history is pertinent for anal fissure. on exam, patient appears uncomfortable. She is obese. She has normal cardiac auscultation, lungs are clear. Abdomen is firm. She has diminished bowel sounds. Surgical scarring has healed well. Patient is slightly symptomatic. And primarily can potential obstruction based on exam. No CVA tenderness. Patient denies any vaginal discharge, change in urinary habits. Also consider recurrence of her diverticulitis. Will obtain baseline labs, patient given Zofran for her nausea which worked quite well. Will give acetaminophen for discomfort. Will obtain CT for evaluation of her abdominal comfort. Labs reviewed, signficant for WBC of 16. Contacted by radiologist. He eis concerned for SBO. Advises that the previous ventral hernia has recurred and that they notee even more hernias. He advises that proximal to the SBO, there is thickening consistent with enteritis. He advises consultation with general surgery, as her hx is complicated has offered to discuss with theem as well. Reviewed note from [facility] from her last episode of discomfort in April. At that time, patient was admitted for incarcerated ventral hernia with SBO. Consult with general surgeon. She is currently in surgery but will review imaging when she is completed. Advise placing NGT. Patient refuses NGT, states they have had difficulty placing this in the past. General surgeon reviewed images, concerned she needs another procedure for her recurrent hernia and advised transfer to [facility] for definitive care. Images pushed, will request consult and transfer. [facility] called back, unable to accept secondary to capacity. Called [facility], they are unable to accept secondary to capacity. Will request consult with general surgery at [facility] to see if immediate surgical intervention is needed. Patient is feeling improved. She had 4mg of Zofran with no recurrence of her nausea, vomiting. Did well with APAP for pain. Consulted with generaly surgery, Dr. Moeller reviewed the images. He does not see evidence to suggest immediate surgical intervention. She advised holding off on he NGT as stomach is decompress. Advised omnipaque and abdominal XR Q6hrs x 4. If to the colon within 24 hours, indicates imrpvement and continued non-operative management. Advises that this can improve resolution of the SBO. Does not feel that she needs immediate surgical intervention. Gives 50mL undiluted omnipaque. Consulted again with surgery here, they are concerned for possible incarcerated hernia and will not accept patient here. They do not feel that [facility] is approriate facility for her as we cannot provide surgcial care. Discussed concern for possible incarcerateed hernia with radiologist, he advises that this is possible. Have contacted a multitude of hospitals in [place], [place], [place], [place]. No bed availability at [facility] time. Discussed with patient. She is now passing flatus. Spoke with surgeorn here, as marizol is now passing flatus and has had no continued N/V, improvement of pain, will admit here for continued observation of SBO. Discussed plan with the patient who is in agreement. HPI General Mode of arrival: ambulatory. Date/Time Provider Initiated Documentation: 02/05/21 07:27. Limitations to Documentation: no limitations. Information obtained by: patient, RN notes reviewed and old records reviewed. History of Present Illness 60 year old F presents to the emergency department with the chief complaint of abdominal pain, nausea, vomiting, described as severe and similar to prior episodes, with intensity rated at 8. Quality is described as constant, and is localized to the abdomen. Patient reports no radiation. Patient started experiencing this day(s) (1) and it has been constant. No relieving factors improve symptom(s), No exacerbating factors reported . Patient notes loss of appetite and nausea/vomiting; denies chest pain, cough, diaphoresis, fever/chills, headaches, rash, shortness of breath and weakness. Patient did receive the following treatments prior to arrival, none Related Data Home Medications Medication Instructions Recorded Confirmed albuterol 90 mcg INHALATION PRN PRN 04/24/20 02/05/21 acetaminophen 500 mg PO Q6H PRN #60 tab 12/04/20 02/05/21 ibuprofen 600 mg PO TID PRN #60 tab 12/04/20 02/05/21 senna 2 mg PO DAILY 12/04/20 02/05/21 Previous Rx's Medication Instructions Recorded acetaminophen 500 mg PO Q6H PRN #60 tab 12/04/20 ibuprofen 600 mg PO TID PRN #60 tab 12/04/20 Allergies Allergy/AdvReac Type Severity Reaction Status Date / Time No Known Allergies Allergy Unverified 02/05/21 08:07 General Stated Complaint: Nausea/Vomit/Diar TAE: 3 Review of Systems Constitutional Constitutional: Reports as per HPI, Denies chills, Denies fever(s) and Denies headache(s) ENT Ears, Nose, Mouth, and Throat: Denies headache(s) Cardiovascular Cardiovascular: Reports as per HPI, Denies chest pain and Denies dyspnea Respiratory Respiratory: Reports as per HPI, Denies cough and Denies dyspnea Gastrointestinal Gastrointestinal: Reports as per HPI Musculoskeletal Musculoskeletal: Reports as per HPI and Denies back pain Integumentary/Breasts Skin/Breast: Reports as per HPI and Denies rash Neurologic Neurologic: Reports as per HPI and Denies headache(s) [facility] Active Problem List BMI 45.0-49.9, adult (Acute) Dehydration (Acute) Recurrent ventral hernia (Acute) Ventral hernia with bowel obstruction (Acute) Status post arthroscopy of right knee (Acute 12/04/20) Internal derangement of right knee (Acute) Internal derangement of left knee (Acute) Medical History Anal fissure Diverticulitis History of anal fissures Surgical History 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 History of x2 History of cholecystectomy History of colostomy History of hernia repair umbilical x3 History of partial colectomy Hx of colonoscopy Status post hysterectomy Social History Smoking/Tobacco Use Status: Current every day Tobacco Type: cigarettes Smoking packs per day: 1 Smoking cigarettes per day: 20.0 Years smoked: 43 Smoking pack-years: 43.00 Smoking risk assessment performed?: Yes Alcohol Intake: never Drug use: Never Substance use type: does not use 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 [employer] Current gender identity: male Do you feel safe at home: Yes Do you feel safe in your relationship?: Yes Exam Const General: cooperative, uncomfortable, no acute distress, well developed and ill appearing acutely Nutritional Appearance: well nourished and overweight Orientation: alert and awake HENMS Head: normal to inspection Mouth: mucous membranes dry Resp Effort & Inspection: normal respiratory effort, able to speak in complete sentences and no respiratory distress Auscultation: clear to auscultation bilaterally, no rales, no rhonchi and no wheezes Cardio Rate: regular rate Rhythm: regular rhythm Heart Sounds: S1 normal and S2 normal GI Inspection: distended and visible herniation Palpation: firm (diffuse), no guarding, no hepatosplenomegaly, no pulsatile masses, not rigid and tender (diffusely tender) with no rebound tenderness Percussion: tympanic to percussion Auscultation: absent bowel sounds Back/Spine/Pelvis Back: no CVA tenderness Skin General skin exam: no rashes or lesions noted Trauma: no lacerations or abrasions Neuro General: patient alert and patient awake Cognition: normal cognition Speech: speech normal Gait: normal gait Psych Appearance: grossly normal and well kempt Mental Status: mental status grossly normal Speech and Movement: speech and movement normal Course Vital Signs Vital signs: Vital Signs Temperature 36.3 C L 02/05/21 07:59 Pulse 86 02/05/21 07:59 Respiratory Rate 20 02/05/21 07:59 Blood Pressure 149/76 H 02/05/21 07:59 Pulse Oximetry 97 02/05/21 07:59 Temperature 36.3 C L 02/05/21 07:59 Temperature Source Temporal Artery Scan 02/05/21 07:59 Pulse 86 02/05/21 07:59 Respiratory Rate 20 02/05/21 07:59 Respiratory Effort Non-Labored 02/05/21 08:06 Blood Pressure 149/76 H 02/05/21 07:59 Blood Pressure Position Supine 02/05/21 07:59 Pulse Oximetry 97 02/05/21 07:59 Oxygen Delivery Method Room Air 02/05/21 07:59 Oxygen Flow Rate 0 02/05/21 07:59 Pain Level 8 02/05/21 07:59
[2021-02-05] MEDS: Ondansetron 4 MG/2 ML VIAL IVP (08:35)
[2021-02-05 08:44] LABS: Abs Immature Grans 0.09 10^3/uL (0.0-0.06); Absolute Basophil Count 0.07 10^3/uL (0.0-0.2); Absolute Lymphocyte Count 2.45 10^3/uL (1.2-3.4); Absolute Monocyte Count 1.02 10^3/uL (0.1-0.8); Absolute Neutrophil Count 13.16 10^3/uL (1.2-6.7); Basophils % 0.4; Eosinophils % 0.8; HCT 50.6 % (36.0-46.0); HGB 16.2 g/dL (11.2-15.7); Immature Grans % 0.5; Lymphocytes % 14.5; MCH 30.5 pg (27.0-33.0); MCV 95.1 fL (80-95); MPV 9.4 fL (8.0-11.0); Neutrophils % 77.8; Nucleated RBC 0 %; Platelet Count 321 10^3/uL (130-400); RBC 5.32 10^6/uL (3.93-5.22); RDW 12.6 % (11.7-14.6); RDW-SD 44.7 fL; WBC 16.92 10^3/uL (4.4-10.8)
[2021-02-05 08:49] LABS: Absolute Eosinophil Count 0.14 10^3/uL (0.0-0.7)
[2021-02-05 08:56] LABS: ALT 29 U/L (14-59); AST 19 U/L (15-37); Albumin 3.4 g/dL (3.4-5.0); Alkaline Phosphatase 114 U/L (46-116); BUN 23 mg/dL (7-18); Bilirubin, Total 0.5 mg/dL (0.2-1.0); CREATININE 0.9 mg/dL (0.55-1.02); Calcium 9.2 mg/dL (8.5-10.1); Chloride 103 mmol/L (98-107); Glucose 185 mg/dL (74-106); Lipase 48 U/L (73-393); Magnesium 2.2 mg/dL (1.8-2.4); Potassium 3.8 mmol/L (3.5-5.1); Sodium 141 mmol/L (136-145); Total Protein 7.4 g/dL (6.4-8.2)
[2021-02-05] MEDS: ACETAMINOPHEN 1,000 MG/100 ML BTL 400 MG IVPB (09:03)
--- NOTE | 2021-02-05 10:37 | DI.CT_ITS ---
Exam(s) CT ABDOMEN PELVIS W EXAM: CT ABDOMEN PELVIS W INDICATION: diffuse pain, concerned for obstruction. COMPARISON: CT CT ABDOMEN PELVIS W from 04/23/[address] ABDOMEN PELVIS W from 04/23/[address] ABDOMEN PELVIS W from 04/24/2020 TECHNIQUE: FINDINGS: CT examination of the abdomen and pelvis was performed with a bolus infusion of 100 cc of Omnipaque 3 50. Images obtained through the lung bases are unremarkable. There is marked hepatic steatosis without evidence of focal hepatic lesion. Gallbladder has been surgically removed. No biliary dilatation. Pancreas appears normal. There is low attenuation lesion of anterior aspect inferior pole of the spleen measuring up to about 2.4 cm in diameter, this was not present prior CT April [address] of April 2020. Diagn ostic possibilities would include infarct or mass.. Adrenals appear normal. There are probable small bilateral renal cysts. No hydronephrosis, nephrolithiasis, renal mass. Uri nary bladder unremarkable. Abdominal aorta is of normal diameter and no major vascular abnormality is seen. There are multiple complex ventral hernias. There loops bowel projecting into the anterior abdominal wall least 2 supraumbilical sites. There is marked soft tissue edema and free fluid in the more inf eriorly located sac. There are multiple loops of dilated small bowel, small bowel associated with whitmore perior hernia sac is non dilated. Small bowel associated with or inferiorly located hernia sac is mo derately dilated and there is marked proximal dilatation of small suggesting a small bowel obstructio n at this site. Note is also made of wall thickening of 3rd portion of the duodenum and the proximal jejunum, this is a nonspecific finding but the possibility of enteritis is raised. Uterus is atrophic or absent. IMPRESSION: Appearance of small bowel obstruction, this is in the setting of complex ventral hernia, findings sug gest bowel obstruction at the level of the inferior most ventral hernia site. Additionally there is wall thickening of proximal small bowel remote from the hernia sites raising th e possibility of enteritis. Please correlate clinically. RADIATION DOSE DELIVERED: Total DLP Total DLP CTDIvol RADIATION OPTIMIZATION: All CT scans at this facility use at least one of these dose optimization te chniques: automated exposure control; mA and/or kV adjustment per patient size (includes targeted exa ms where dose is matched to clinical indication); or iterative reconstruction.
[2021-02-05] MEDS: Omnipaque 350 MG/ML 100 ML BTL IJ (10:46)
[2021-02-05] MEDS: Normal Saline - Diluent 50 ML VIAL IV (10:46)
[2021-02-05] MEDS: Lactated Ringers 1,000 ML 250 ML IV (11:15)
[2021-02-05 11:55] LABS: Bilirubin Negative (Negative); Blood Trace-lysed (Negative); Clarity Clear (Clear); Glucose Negative (Negative); Ketones Negative (Negative); Leukocyte Esterase Negative (Negative); Nitrite Negative (Negative); Specific Gravity 1.015 (1.005-1.025)
[2021-02-05 11:59] LABS: Bacteria Negative HPF (Negative); C & S Indicated? No; Casts Negative LPF (Negative); Crystals Negative HPF (Negative); Epithelial Cells Rare HPF (Negative); Mucus Moderate (Negative); WBC 0-2 HPF (0-5)
--- NOTE | 2021-02-05 14:18 | DI.RAD_ITS ---
Exam(s) RF SMALL BOWEL SERIES EXAM: RF SMALL BOWEL SERIES CLINICAL HISTORY: known SBO, omnique for passage 50mL per surgeon TECHNIQUE: COMPARISON: No exams were available for comparison FINDINGS: Images of the abdomen were obtained approximately 6 hours following ingestion contrast material, a no n diluted Omnipaque period there is moderate small bowel distension. There is moderate quantity of c ontrast material throughout the colon including the rectum. Additional images were obtained approximately 12 hours later and show virtually all of the contrast m aterial to have exited the small bowel. Mild small bowel distension persists. There is residual con trast in a nondistended colon. IMPRESSION: The appearance is consistent with significant interval improvement in low-grade small bowel obstructi on since yesterday's CT examination. Mild small bowel dilatation persists. RADIATION DOSE DELIVERED: Total DLP
[2021-02-05] MEDS: Ketorolac 15 MG/ML VIAL IM (14:19)
[2021-02-05] MEDS: Omnipaque 350 MG/ML 50 ML BTL IJ (14:27)
[2021-02-05] MEDS: Lactated Ringers 1,000 ML 100 ML IV (15:31)
--- NOTE | 2021-02-05 16:43 | HPE_ITS ---
Date of service: 02/05/21 Time of Service: 16:43 Assessment and Plan Assessment and plan (1) Ventral hernia with bowel obstruction: Status: Acute Assessment and plan: continue conservative medical management will try ominpaque to reduce hernias. check A1c. I did review the CT w/ radiology. 90 minutes spent in consultation today. (2) Recurrent ventral hernia: Status: Acute (3) Dehydration: Status: Acute (4) BMI 45.0-49.9, adult: Status: Acute History of Present Illness Consults Consult date: 02/05/21 Narrative: PT present to the ED c/o acue abodminal pain and vomting. Pt is well known to the surgical staff. She had a ruptured diverticula and required diverting ostomy. She had a subsequent take down. She developed a incionsal hernia and had a repair w/ out mesh for an acute incarceration, April 2020. This was done at [facility]. I did review her CT w/ rads. Pt has high pitched BS and not passing gas. She actually has multiple hernias. The superior hernia is reducible. The lower hernia is not palpable secondary to BMI. [facility] general Sx reviewed her CT. They did not feel she required emergent surgical intervention and declined admission and continue conservative medical managent. Pt is not a canciddate for surgery at [facility]. She is too high risk and we do not have the implants to do her sugrery. If she requires surgery- she would be best served by transfer to a tertiary center b/c of her BMI and extensive ramiro iation. Unfortunately, due to Covid, there are no ICU beds available in the [place] area. I am going to admit her for pain managemnt and fluids. Hopefully she will resolve spontaeously. 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 History of x2 History of cholecystectomy History of colostomy History of hernia repair umbilical x3 History of partial colectomy Hx of colonoscopy Status post hysterectomy Social History Smoking/Tobacco Use Status: Current every day Tobacco Type: cigarettes Smoking packs per day: 1 Smoking cigarettes per day: 20.0 Years smoked: 43 Smoking pack- years: 43.00 Smoking risk assessment performed?: Yes Alcohol Intake: never Drug use: Never Substance use type: does not use 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 Current gender identity: male Do you feel safe at home: Yes Do you feel safe in your relationship?: Yes Meds Allergies and Home Medications Allergies Allergy/AdvReac Type Severity Reaction Status Date / Time No Known Allergies Allergy Unverified 02/05/21 08:07 Home Medications Medication Instructions Recorded Confirmed Type albuterol 90 mcg INHALATION PRN PRN 04/24/20 02/05/21 History acetaminophen 500 mg PO Q6H PRN #60 tab 12/04/20 02/05/21 Rx ibuprofen 600 mg PO TID PRN #60 tab 12/04/20 02/05/21 Rx senna 2 mg PO DAILY 12/04/20 02/05/21 History Exam Resp Effort & Inspection: able to speak in complete sentences Auscultation: clear to auscultation bilaterally Cardio Rate: regular rate Rhythm: regular rhythm GI Inspection: large pannus, obesity and scar Other: superior hernia- which is easily reducible. inferior hernias are not palpable secondary to obesity. She does have significant tenderness Extrem General: no clubbing, cyanosis or edema Results Labs Result diagrams: 02/05/21 08:20 02/05/21 08:20 Labs: Laboratory Results - last 24 hr 02/05/21 02/05/21 02/05/21 08:20 08:20 11:42 WBC 16.92 H RBC 5.32 H Hgb 16.2 H Hct 50.6 H MCV 95.1 H MCH 30.5 MCHC 32.0 RDW 12.6 Plt Count 321 MPV 9.4 Immature Gran % 0.5 Neutrophils % 77.8 Lymphocytes % 14.5 Monocytes % 6.0 Eosinophils % 0.8 Basophils % 0.4 Nucleated RBC % 0 Absolute Neutrophils 13.16 H Absolute Lymphocytes 2.45 Absolute Monocytes 1.02 H Absolute Eosinophils 0.14 Absolute Basophils 0.07 Sodium 141 Potassium 3.8 Chloride 103 Carbon Dioxide 29.0 Anion Gap 9.0 BUN 23 H Creatinine 0.9 Estimated GFR/1.73 m2 >= 60.00 Glucose 185 H Calcium 9.2 Magnesium 2.2 Total Bilirubin 0.5 AST 19 ALT 29 Alkaline Phosphatase 114 Total Protein 7.4 Albumin 3.4 Lipase 48 Urine Color Yellow Urine Clarity Clear Urine pH 6.0 Ur Specific [place] 1.015 Urine Protein Negative Urine Ketones Negative Urine Blood Trace-lysed H Urine Nitrite Negative Urine Bilirubin Negative Urine Urobilinogen 1.0 H Ur Leukocyte Esterase Negative Urine RBC 3-5 H Urine WBC 0-2 Ur Epithelial Cells Rare Urine Crystals Negative Urine Bacteria Negative Urine Casts Negative Urine Mucus Moderate Ur Culture Indicated? No Urine Glucose Negative Last Vital Signs Temp 36.3 C L 02/05/21 15:32 Pulse 66 02/05/21 15:15 Resp 10 L 02/05/21 15:20 BP 147/77 H 02/05/21 15:15 Pulse Ox 91 L 02/05/21 15:20
[2021-02-05 16:53] LABS: Source Nasal/Nares
[2021-02-05] MEDS: Enoxaparin 40 MG/0.4 ML SYR SC (18:42)
[2021-02-05] MEDS: FAMOTIDINE 20 MG/50 ML BAG 200 MG IVPB (18:42)
[2021-02-05] MEDS: Normal Saline Flush 10 ML SYR IVP (19:55)
[2021-02-05 20:22] LABS: Hemoglobin A1C 7.1 % (<5.7)
[2021-02-05 20:30] LABS: C-Reactive Protein 3.47 mg/dL (0.0-0.3); TSH 1.18 uIU/mL (0.36-3.74)
--- NOTE | 2021-02-05 21:15 | DI.VRAD_ITS ---
PROCEDURE INFORMATION: Exam: XR Abdomen Exam date and time: 02/05/2021 7:25 PM Age: 60 years old Clinical indication: Abdominal pain; Generalized; Prior surgery; Surgery date: 6+ months; Surgery type: Cholecystectomy. Colostomy, hernia repair, partial colectomy, ; Patient HX: Incarcerated ventral hernia/sbo; Additional info: PT drank oral contrast post CT today. TECHNIQUE: Imaging protocol: XR of the abdomen. Views: 2 Views. Upright and supine views. COMPARISON: CT ABDOMEN PELVIS W 02/05/2021 10:35 AM FINDINGS: Lungs: Lung bases are clear. Gastrointestinal tract: Similar diffuse dilation to small bowel loops, in keeping with known small bowel obstruction. Small bowel loops measure up to 4.6 cm in greatest diameter. There is contrast material appreciated throughout small bowel loops and at the level of the rectum. Intraperitoneal space: There is no free intraperitoneal air. Organs: Surgical clips are present in the right upper quadrant, consistent with previous cholecystectomy. Bones/joints: No acute skeletal abnormality or aggressive osseous lesion. IMPRESSION: 1. Persistent small bowel obstruction. 2. No discrete evidence for bowel perforation at this time. Dictated and Authenticated by: Samir Beard MD. Ordering:JAVIER Gamble MD
[2021-02-05 21:22] LABS: COVID-19 PCR Negative (Negative)
[2021-02-05] MEDS: Lactated Ringers 1,000 ML 125 ML IV (21:50)
[2021-02-06] MEDS: Lactated Ringers 1,000 ML 125 ML IV (05:23)
--- NOTE | 2021-02-06 07:10 | PGE_ITS ---
Date of Service Date of service: 02/06/21 Time of Service: 07:10 Assessment and Plan Assessment and plan (1) Ventral hernia with bowel obstruction: Status: Acute Assessment and plan: Continue conservative medical management Pain Control, nsg aware and going to administer pain medications. IV fluids Continue NPO status (+) BM this morning No nausea or vomiting Encouraged pulmonary toilet Ambulation and Activity OOB throughout the day (2) Recurrent ventral hernia: Status: Acute (3) Dehydration: Status: Acute (4) BMI 45.0-49.9, adult: Status: Acute Subjective Subjective Interval history since last seen: Patient reports that she slept well over night. She had a BM this morning. The patient reports that around 6:30 this morning her pain returned, she describes this pain at a level of 8/10PL. She is intermittently moaning and crying out in pain while conversing with this provider. Denies having any nausea or vomiting. Exam Const General: cooperative, comfortable and in distress moderate Orientation: alert and oriented x3 Resp Effort & Inspection: normal respiratory effort, no audible wheezes and no cough GI Inspection: normal to inspection Palpation: soft, guarding and tender periumbilically Auscultation: hypoactive bowel sounds Objective Last Vital Signs Temp 36.6 C 02/05/21 23:02 Pulse 74 02/05/21 23:02 Resp 18 02/05/21 23:02 BP 122/78 02/05/21 23:02 Pulse Ox 93 02/05/21 23:02 Laboratory Results - last 24 hr 02/05/21 02/05/21 02/05/21 08:20 08:20 08:20 WBC 16.92 H RBC 5.32 H Hgb 16.2 H Hct 50.6 H MCV 95.1 H MCH 30.5 MCHC 32.0 RDW 12.6 Plt Count 321 MPV 9.4 Immature Gran % 0.5 Neutrophils % 77.8 Lymphocytes % 14.5 Monocytes % 6.0 Eosinophils % 0.8 Basophils % 0.4 Nucleated RBC % 0 Absolute Neutrophils 13.16 H Absolute Lymphocytes 2.45 Absolute Monocytes 1.02 H Absolute Eosinophils 0.14 Absolute Basophils 0.07 Sodium 141 Potassium 3.8 Chloride 103 Carbon Dioxide 29.0 Anion Gap 9.0 BUN 23 H Creatinine 0.9 Estimated GFR/1.73 m2 >= 60.00 Glucose 185 H Hemoglobin A1c Calcium 9.2 Magnesium 2.2 Total Bilirubin 0.5 AST 19 ALT 29 Alkaline Phosphatase 114 C-Reactive Protein 3.47 H Total Protein 7.4 Albumin 3.4 Lipase 48 TSH 1.18 Urine Color Urine Clarity Urine pH Ur Specific [place] Urine Protein Urine Ketones Urine Blood Urine Nitrite Urine Bilirubin Urine Urobilinogen Ur Leukocyte Esterase Urine RBC Urine WBC Ur Epithelial Cells Urine Crystals Urine Bacteria Urine Casts Urine Mucus Ur Culture Indicated? Urine Glucose COVID-19 Source SARS-CoV-2 (PCR) 02/05/21 02/05/21 02/05/21 08:20 11:42 16:51 WBC RBC Hgb Hct MCV MCH MCHC RDW Plt Count MPV Immature Gran % Neutrophils % Lymphocytes % Monocytes % Eosinophils % Basophils % Nucleated RBC % Absolute Neutrophils Absolute Lymphocytes Absolute Monocytes Absolute Eosinophils Absolute Basophils Sodium Potassium Chloride Carbon Dioxide Anion Gap BUN Creatinine Estimated GFR/1.73 m2 Glucose Hemoglobin A1c 7.1 H Calcium Magnesium Total Bilirubin AST ALT Alkaline Phosphatase C-Reactive Protein Total Protein Albumin Lipase TSH Urine Color Yellow Urine Clarity Clear Urine pH 6.0 Ur Specific [place] 1.015 Urine Protein Negative Urine Ketones Negative Urine Blood Trace-lysed H Urine Nitrite Negative Urine Bilirubin Negative Urine Urobilinogen 1.0 H Ur Leukocyte Esterase Negative Urine RBC 3-5 H Urine WBC 0-2 Ur Epithelial Cells Rare Urine Crystals Negative Urine Bacteria Negative Urine Casts Negative Urine Mucus Moderate Ur Culture Indicated? No Urine Glucose Negative COVID-19 Source Nasal/Nares SARS-CoV-2 (PCR) Negative
[2021-02-06] MEDS: MORPHine 2 MG/ML SYR IVP (07:13)
[2021-02-06 07:25] LABS: Abs Immature Grans 0.07 10^3/uL (0.0-0.06); Absolute Eosinophil Count 0.28 10^3/uL (0.0-0.7); Absolute Monocyte Count 0.75 10^3/uL (0.1-0.8); Basophils % 0.5; Eosinophils % 2.2; HCT 46.8 % (36.0-46.0); HGB 14.8 g/dL (11.2-15.7); Immature Grans % 0.5; Lymphocytes % 24.6; MCH 30.2 pg (27.0-33.0); MCHC 31.6 % (32.0-36.0); MCV 95.5 fL (80-95); MPV 9.7 fL (8.0-11.0); Monocytes % 5.8; Neutrophils % 66.4; Nucleated RBC 0 %; Platelet Count 239 10^3/uL (130-400); RDW 12.7 % (11.7-14.6); RDW-SD 45.2 fL; WBC 12.95 10^3/uL (4.4-10.8)
[2021-02-06 07:34] LABS: Absolute Basophil Count 0.06 10^3/uL (0.0-0.2); Absolute Lymphocyte Count 3.19 10^3/uL (1.2-3.4)
[2021-02-06 07:35] LABS: Anion Gap 8.2 mmol/L (3-11); BUN 19 mg/dL (7-18); CO2 28.8 mmol/L (21.0-32.0); CREATININE 0.7 mg/dL (0.55-1.02); Calcium 8.5 mg/dL (8.5-10.1); Chloride 105 mmol/L (98-107); Glucose 132 mg/dL (74-106); Potassium 3.7 mmol/L (3.5-5.1); Sodium 142 mmol/L (136-145)
[2021-02-06 07:55] VITALS: BP 167/97; PULSE 68; RESP 18; TEMP 37; O2SAT 92
[2021-02-06] MEDS: Ketorolac 30 MG/ML VIAL IVP (08:59)
[2021-02-06] MEDS: Normal Saline Flush 10 ML SYR IVP (09:02)
--- NOTE | 2021-02-06 10:50 | INITIAL_ITS ---
- If Service Date Differs Date of service: 02/06/21 Time of Service: 10:50 Care Management Initial Assess REASON FOR HOSPITALIZATION:: Incarcerated ventral hernia PAST MEDICAL HISTORY/PAST SURGICAL HISTORY:: Active Problem List . BMI 45.0-49.9, adult (Acute). Dehydration (Acute). Recurrent ventral hernia (Acute). Ventral hernia with bowel obstruction (Acute). Status post arthroscopy of right knee (Acute 12/04/20). Internal derangement of right knee (Acute). Internal derangement of left knee (Acute). Medical History . Anal fissure. Diverticulitis. History of anal fissures. Surgical History . 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 History of . x2. History of cholecystectomy. History of colostomy. History of hernia repair. umbilical x3. History of partial colectomy. Hx of colonoscopy. Status post hysterectomy PREVIOUS FUNCTIONAL STATUS/SOCIAL/FAMILY SUPPORTS:: Jahaira lives in [place] with her brother and his partner Kimberly. 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 Jahaira is independent with ADL's, meals and other daily functions at baseline. CURRENT FUNCTIONAL STATUS:: Jahaira was lying in bed when CM met with her. She shared that she is frustrated. She has not been able to eat and drink since Thursday. She is hoping to go home today after talking with the surgeon and feels she can manage just as well at home in her own bed. ADVANCE DIRECTIVES:: None, has the paperwork at home if she desires to complete. Has patient been provided with info about the portal/API?: Yes Did the patient sign up for the portal?: No CODE STATUS:: Full Code INSURANCE COVERAGE / FINANCIAL ISSUES:: Medicaid CURRENT HOME/COMMUNITY SERVICES/EQUIPMENT:: None PRIMARY CARE PHYSICIAN:: Hanane Martinez PATIENT/FAMILY EDUCATION NEEDS:: Discharge education, limitations and follow up plan of care including ask me three and self management. TRANSPORTATION:: Via private vehicle with family PLAN:: Anticipate Jahaira will be discharged home with no services via private vehicle with family when medically cleared by surgeon. Pt will follow up with community providers and discharge plan of care as prescribed.
--- NOTE | 2021-02-06 14:05 | W.PM.DS.N ---
Date of service: 02/06/21 Time of Service: 14:06 DS: Diagnosis Discharge Diagnosis (1) Ventral hernia with bowel obstruction: Status: Acute (2) Recurrent ventral hernia: Status: Acute (3) Dehydration: Status: Acute (4) BMI 45.0-49.9, adult: Status: Acute Discharge Plan Disposition Patient Disposition: HOME Condition: Improving Discharge Details Reason For Visit: Incarcerated ventral hernia Admit Date/Time: 02/05/21 16:37 Admit Provider: Mavis Carcamo Attending Provider: Mavis Carcamo Primary Care Provider: Hanane Martinez [facility] Hospital Course: Ms Montgomery is a 60 year old female who was admitted yesterday with a SBO due to a ventral hernia. BY the time she was admitted she had started pasing flatus and she was no longer nauseated. Overnight she slept and requiered no pain medications. The next morning a follow up Xray revealed that her small bowel was not as dilated and the contrast had moved into the rectum. On exam the patient was non-tender. She had several liquid BM's and was passing lots of flatus. She was started on a clear liquid diet and discharged home. Home Meds and New Rx's Prescriptions: Continued albuterol 90 mcg/actuation Aerosol 90 mcg INHALATION PRN PRNRF: 0 senna 187 mg Tablet 2 mg PO DAILY RF: 0 acetaminophen 500 mg tablet 500 mg PO Q6H PRN (Reason: pain) Qty: 60 RF: 2 ibuprofen 600 mg tablet 600 mg PO TID PRN (Reason: pain) Qty: 60 RF: 0 Discharge Instructions Instructions: Clear Liquid Diet (DC), GI (Gastrointestinal) Soft Diet (DC) Additional Instructions: Activity at Home after surgery: 1. Make sure you walk outside at least 4 times per day 2. You should be able to climb a flight of stairs 3. Please refrain from lifting more then 15 pounds Diet, Nutrition, & wound healin. Continue with clear liquids for 24 hours and then advance diet to a soft diet Pain Medications: 1. Tylenol 650mg every 6 hours as needed and Ibuprofen 600 mg every 6 hours as needed. You may alternate between the 2 medications every 3 hours For Constipation: 1. Take Milk of Magnesia or MiraLax as needed for constipation Other: 1. If you develop N/V and abdominal pain please go to [facility] or [facility] for care. As we discussed your case is very complicated and your abdominal hernias are complex and we would have a hard time fixing them here at [facility]. Please call our office if you develop: 1. Fevers >101.5 2. Nausea or Vomiting 3. Worsening pain 4. Redness and thick discharge from the wounds If after hours please call the Hospital at and ask to speak to the on-call surgeon Activity:: see above Equipment/Supplies:: No Equipment Needed Diet:: see above Discharge Orders Discharge Orders: Discharge Order (Routine); Ordered 02/06/21 Ordered By: Sherri Wayne DS: Summary Time Spent with Patient providing and/or coordinating discharge services: Less than 30 minutes Status at Discharge Functional status at discharge: independent ambulation Overall status at discharge: patient is back to baseline Mental Status: mental status grossly normal Speech and Movement: speech and movement normal Mood: congruent mood Affect: normal affect Exam Resp Effort & Inspection: normal respiratory effort Auscultation: clear to auscultation bilaterally Cardio Rate: regular rate Rhythm: regular rhythm Heart Sounds: no gallops, no murmurs and no rubs GI Inspection: normal to inspection Palpation: soft and nontender Auscultation: normal bowel sounds Psych Mental Status: mental status grossly normal Speech and Movement: speech and movement normal Mood: congruent mood Affect: normal affect DS: Data Vitals/I&O Vitals and I&O: Vital Signs Temperature 98.6 F 02/06/21 07:55 Temperature Source Tympanic 02/06/21 07:55 Pulse 68 02/06/21 07:55 Pulse Rhythm Regular 02/06/21 04:07 Pulse 60 02/05/21 17:20 Respiratory Rate 18 02/06/21 07:55 Respiratory Effort 02/06/21 07:25 Respiratory Depth Deep 02/06/21 07:25 Respiratory Pattern Normal 02/06/21 07:25 Blood Pressure 167/97 H 02/06/21 07:55 Blood Pressure Mean 102 02/05/21 17:16 Blood Pressure Position Supine 02/05/21 07:59 Pulse Oximetry 92 02/06/21 07:55 Oxygen Delivery Method Room Air 02/06/21 07:55 Oxygen Flow Rate 0 02/06/21 07:55 Pain Level 8 02/06/21 08:59 Comment 02/05/21 17:17 Intake & Output 02/05/21 02/06/21 02/06/21 23:59 11:59 23:59 Intake Total 1445 / 2545 943.75 / 1943.75 1000 / 1943.75 Output Total 200 / 400 600 / 600 Balance 1245 / 2145 343.75 / 1343.75 1000 / 1343.75 Weight 232 lb Intake: IV 1445 / 2545 943.75 / 1943.75 1000 / 1943.75 Output: Urine 200 / 400 200 / 200 Stool 400 / 400 Other: Urine Color Light [place] Yellow Urine Appearance Clear Clear Urine Odor Normal None Stool Characteristics Liquid Brown Voiding Methods Toilet Toilet Data Completed and Pending Labs on day of discharge: Labs from last 24 hours 02/06/21 02/06/21 02/05/21 07:00 07:00 16:51 WBC 12.95 H RBC 4.90 Hgb 14.8 Hct 46.8 H MCV 95.5 H MCH 30.2 MCHC 31.6 L RDW 12.7 Plt Count 239 MPV 9.7 Immature Gran % 0.5 Neutrophils % 66.4 Lymphocytes % 24.6 Monocytes % 5.8 Eosinophils % 2.2 Basophils % 0.5 Nucleated RBC % 0 Absolute Neutrophils 8.60 H Absolute Lymphocytes 3.19 Absolute Monocytes 0.75 Absolute Eosinophils 0.28 Absolute Basophils 0.06 Sodium 142 Potassium 3.7 Chloride 105 Carbon Dioxide 28.8 Anion Gap 8.2 BUN 19 H Creatinine 0.7 Estimated GFR/1.73 m2 >= 60.00 Glucose 132 H Hemoglobin A1c Calcium 8.5 C-Reactive Protein TSH COVID-19 Source Nasal/Nares SARS-CoV-2 (PCR) Negative 02/05/21 02/05/21 08:20 08:20 WBC RBC Hgb Hct MCV MCH MCHC RDW Plt Count MPV Immature Gran % Neutrophils % Lymphocytes % Monocytes % Eosinophils % Basophils % Nucleated RBC % Absolute Neutrophils Absolute Lymphocytes Absolute Monocytes Absolute Eosinophils Absolute Basophils Sodium Potassium Chloride Carbon Dioxide Anion Gap BUN Creatinine Estimated GFR/1.73 m2 Glucose Hemoglobin A1c 7.1 H Calcium C-Reactive Protein 3.47 H TSH 1.18 COVID-19 Source SARS-CoV-2 (PCR) [facility] Active Problem List SBO (small bowel obstruction) (Acute) BMI 45.0-49.9, adult (Acute) Dehydration (Acute) Recurrent ventral hernia (Acute) Ventral hernia with bowel obstruction (Acute) Status post arthroscopy of right knee (Acute 12/04/20) Internal derangement of right knee (Acute) Internal derangement of left knee (Acute) Medical History Anal fissure Diverticulitis History of anal fissures Surgical History 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 History of x2 History of cholecystectomy History of colostomy History of hernia repair umbilical x3 History of partial colectomy Hx of colonoscopy Status post hysterectomy Social History Smoking/Tobacco Use Status: Current every day Tobacco Type: cigarettes Smoking packs per day: 1 Smoking cigarettes per day: 20.0 Years smoked: 43 Smoking pack-years: 43.00 Smoking risk assessment performed?: Yes Alcohol Intake: never Drug use: Never Substance use type: does not use 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
--- NOTE | 2021-02-06 15:02 | CMDISCH_ITS ---
- If Service Date Differs Date of service: 02/06/21 Time of Service: 15:02 LACE Index Scoring Tool - Questions: Length of Stay (in days): 1 Acuity (Admit via E.D.?): Yes E.D. Visits: 2 - Answers: Total Score: 6 Risk of Readmission: Low Risk Care Management Discharge Reason for Hospitalization: Incarcerated ventral hernia Discharge Plan: Discharge home with no new services via private vehicle with family. Follow up with community providers and discharge plan of care as presc ribed. Patient/Family Education Needs: Review discharge instructions, limitations and plan to follow up with community providers. ask me three.
--- NOTE | 2021-02-06 15:24 | CHAPLAIN ---
Jahaira said she is being discharged today, but is disappointed that she will not be traveling with family members to [place] for Thanksgiving. A group of relatives already left earlier today. Jahaira said her niece is coming over from [place] to take Jahaira back to [place] for Thanksgiving. She hadn't eaten in four days, so was happy to be having clear liquids today.
== END 2021-02-06 17:23 | disposition home or self-care (01) | DRG 394 ==
LOC: ER 08:12 → MS 22:42
PROVIDERS: Registered Nurse Emergency; Surgery; Admitting Provider Surgery; Emergency Provider Physician Assistant; PCP Hospitalist; Visit Provider Surgery
DX: K43.6 Other and unspecified ventral hernia with obstruction, without gangrene (principal); Z68.42 Body mass index [BMI] 45.0-49.9, adult; R19.7 Diarrhea, unspecified; E86.0 Dehydration; F17.210 Nicotine dependence, cigarettes, uncomplicated; E66.9 Obesity, unspecified
CPT/HCPCS: 36415; 80048; 80053; 83690; 87635; 96361; 96365; 96372; 96375; 99285; J1650; 74177; 74250; 81003; 81015; 83036; 83735; 84443; 85025; 86140; J0131; J1885; J2270; J2405; J3490; Q9967

== ENCOUNTER 2021-04-08 02:06 | Outpatient (CLI) | payer MEDICAID, SELFPAY ==
--- NOTE | 2021-04-08 07:15 | DI.MRI_ITS ---
Exam(s) MR LOWER JOINT RT WO EXAM: MR LOWER JOINT RT WO CLINICAL HISTORY: R KNEE PAIN,S/P ARTHROSCOPY,[id number] TECHNIQUE: Multiplanar multisequence MRI of the knee was performed. COMPARISON: MR MR LOWER JOINT RT WO from 10/19/2020 FINDINGS: EFFUSION: There is a prominent joint effusion. There is also a Gibbons cyst in the popliteal fossa whi ch measures 5 cm craniocaudal by 1.8 cm AP by 2 cm wide. MARROW:There is subarticular edema in the mid and lateral aspect tibial plateau with a developing sub articular 4 x 4 millimeter cyst in the tibial plateau at this level. No abnormal signal evident in t he medial tibial plateau. No abnormal signal in the fibular head and neck. There are no significant osseous lesions. PATELLOFEMORAL COMPARTMENT: There is significant subcutaneous edema anterior to the patella and prakash lar ligament. However, the quadriceps and patellar tendons are intact. There is also no abnormal si gnal within the patella itself. There is no significant thinning of the retropatellar cartilage. No evidence of fissure nor signific ant chondral defect. No osteochondral defect at this level.There is no intraosseous signal to sugges t recent patellar dislocation. There are no patellar retinacular tears. CRUCIATE LIGAMENTS: There is now high-grade tear of the ACL, not evident on the prior scan of October 2020.The posterior cruciate ligament is intact MEDIAL COMPARTMENT/MEDIAL MENISCUS: There is increased tearing and attenuation of the posterior horn of the medial meniscus.This predominately involves the posterior horn. Some thinning of the hyaline cartilage over the medial femoral condyle noted. Also marginal osteophy sandra. Mild subarticular edema. MEDIAL COLLATERAL LIGAMENT: Brain signal but no high-grade tear. LATERAL COMPARTMENT/LATERAL MENISCUS: There is no evidence of lateral meniscal tear.There are no silvestre dral defects, osteochondral defects, nor osteophytes evident. However, subarticular edema is seen in the tibial plateau. Only minimal cartilage loss seen over the lateral femoral condyle and no osteophytes at this level. ILIOTIBIAL BAND: Intact LATERAL COLLATERAL LIGAMENT COMPLEX: The fibular collateral ligament is intact. The biceps femoris t endon is intact.Multi-septated cystic finding at the musculotendinous junction of the popliteus but n o tear of the popliteus tendon. IMPRESSION: 1. Compared to the prior MRI scan of October 2020 there is now a large joint effusion and there is a B kendra cyst in the popliteal fossa. 2. There is also now a full-thickness tear of the ACL, not previously present 3. Increase tear of medial meniscus. No obvious tear of the lateral meniscus. 4. Increasing intraosseous bone edema evident in the tibial plateau, most prominent posteriorly in th e lateral compartment and sub spinous tibial plateau region 5. MCL sprain signal evident no full-thickness tear DATA REPOSITORY:
== END 2021-04-08 02:26 ==
PROVIDERS: PCP Hospitalist; Visit Provider Student in an Organized Health Care Education/Training Program
DX: M25.561 Pain in right knee; M71.21 Synovial cyst of popliteal space [Baker], right knee; S83.241A Other tear of medial meniscus, current injury, right knee, initial encounter; S83.411A Sprain of medial collateral ligament of right knee, initial encounter
CPT/HCPCS: 73721

== ENCOUNTER 2021-04-15 01:51 | Outpatient (CLI) | payer MEDICAID, SELFPAY ==
[2021-04-15 13:46] LABS: HCT 46.1 % (36.0-46.0); HGB 14.8 g/dL (11.2-15.7); MCH 29.9 pg (27.0-33.0); MCHC 32.1 % (32.0-36.0); MCV 93.1 fL (80-95); MPV 9.5 fL (8.0-11.0); Platelet Count 301 10^3/uL (130-400); RBC 4.95 10^6/uL (3.93-5.22); RDW 12.5 % (11.7-14.6); RDW-SD 42.9 fL
[2021-04-15 14:00] LABS: ESR 26 mm/hr (0-30)
[2021-04-15 14:38] LABS: C-Reactive Protein 1.21 mg/dL (0.0-0.3)
== END 2021-04-15 01:52 | disposition home or self-care (01) ==
LOC: LBO 01:51
PROVIDERS: PCP Hospitalist; Visit Provider Student in an Organized Health Care Education/Training Program
DX: M23.8X1 Other internal derangements of right knee (principal)
CPT/HCPCS: 36415; 85027; 85652; 86140

== ENCOUNTER 2021-04-17 11:07 | Outpatient (CLI) | payer MEDICAID, SELFPAY ==
--- NOTE | 2021-04-17 10:30 | DI.RAD_ITS ---
Exam(s) XR STANDING ALIGNMENT EXAM: XR STANDING ALIGNMENT CLINICAL HISTORY: eval R knee pain s/p arthroscopy. TECHNIQUE: 2D digital imaging was performed. Standing AP views were performed from the pelvis throu gh the ankles. COMPARISON: CR XR KNEE LT 4V+ from 08/01/2020 CR XR KNEE RT 4V+ from 08/01/2020 FINDINGS: Visualization of the hip joint is somewhat limited due to patient body habitus. There is no signific ant overall leg length discrepancy. There are degenerative changes of the medial femoral tibial join t space of the right knee. The left knee is unremarkable. There is mild narrowing of the left tibio talar joint. IMPRESSION: No significant leg length discrepancy. Mild degenerative changes of the knees and ankles. DATA REPOSITORY: RADIATION DOSE DELIVERED:
== END 2021-04-17 11:08 | disposition home or self-care (01) ==
LOC: DIORS 11:08
PROVIDERS: PCP Hospitalist; Referring Provider Hospitalist; Visit Provider Student in an Organized Health Care Education/Training Program
DX: M25.561 Pain in right knee (principal); M23.8X1 Other internal derangements of right knee; Z98.890 Other specified postprocedural states; M17.11 Unilateral primary osteoarthritis, right knee
CPT/HCPCS: 77073

== ENCOUNTER 2021-04-17 14:44 | Outpatient (REF) | payer MEDICAID, SELFPAY ==
[2021-04-17 12:59] LABS: Clarity Clear; Nucleated Cells 185 uL (0)
[2021-04-17 13:41] LABS: Mononuclear Cells 80 %; Polynuclear Cells 20 %
== END 2021-04-17 14:45 | disposition home or self-care (01) ==
LOC: LBN 14:44
PROVIDERS: PCP Hospitalist; Visit Provider Student in an Organized Health Care Education/Training Program
DX: M25.561 Pain in right knee (principal); Z98.890 Other specified postprocedural states; M13.861 Other specified arthritis, right knee
CPT/HCPCS: 87070; 87205; 89051

== ENCOUNTER 2021-04-25 02:46 | Outpatient (CLI) | payer MEDICAID, SELFPAY | END 2021-04-25 02:47 | disposition home or self-care (01) | LOC: LBO 02:47 | PROVIDERS: PCP Nurse Practitioner; Visit Provider Nurse Practitioner ==

== ENCOUNTER 2021-05-13 15:00 | Outpatient (CLI) | payer MEDICAID, SELFPAY ==
--- NOTE | 2021-05-13 14:45 | DI.RAD_ITS ---
Exam(s) XR WRIST LT COMPLETE EXAM: XR WRIST LT COMPLETE CLINICAL HISTORY: L wrist pain for 3 weeks M25.532 PAIN LT WRIST. TECHNIQUE: 2D digital imaging was performed. COMPARISON: No exams were available for comparison FINDINGS: BONES: No acute fracture is present. No bony destructive lesion is seen. JOINTS: The carpal bones are normally aligned. SOFT TISSUE: Normal. IMPRESSION: Unremarkable radiographs of the left wrist. DATA REPOSITORY: RADIATION DOSE DELIVERED:
== END 2021-05-13 15:20 ==
PROVIDERS: PCP Nurse Practitioner; Visit Provider Nurse Practitioner
DX: M25.532 Pain in left wrist (principal)
CPT/HCPCS: 73110

== ENCOUNTER 2021-05-14 03:38 | Outpatient (CLI) | payer MEDICAID, SELFPAY ==
[2021-05-14 11:39] LABS: ALT 22 U/L (14-59); AST 10 U/L (15-37); Albumin 3.6 g/dL (3.4-5.0); Alkaline Phosphatase 123 U/L (46-116); Anion Gap 8.4 mmol/L (3-11); BUN 21 mg/dL (7-18); Bilirubin, Total 0.3 mg/dL (0.2-1.0); CO2 30.6 mmol/L (21.0-32.0); CREATININE 0.7 mg/dL (0.55-1.02); Calcium 9.5 mg/dL (8.5-10.1); Chloride 101 mmol/L (98-107); Glucose 145 mg/dL (74-106); Potassium 3.8 mmol/L (3.5-5.1); Sodium 140 mmol/L (136-145); TSH (W/Ref FT4) 1.27 uIU/mL (0.36-3.74); Total Protein 7.4 g/dL (6.4-8.2)
[2021-05-14 14:21] LABS: Calculated LDL 193 mg/dL (<100); Cholesterol 273 mg/dL (<200); HDL Cholesterol 39 mg/dL (40-60); Triglyceride 206 mg/dL (<150)
== END 2021-05-14 03:39 | disposition home or self-care (01) ==
LOC: LBO 03:38
PROVIDERS: PCP Nurse Practitioner; Visit Provider Nurse Practitioner
DX: E11.9 Type 2 diabetes mellitus without complications (principal); I10 Essential (primary) hypertension
CPT/HCPCS: 36415; 80053; 80061; 84443

== ENCOUNTER 2021-06-14 00:48 | Outpatient (CLI) | payer MEDICAID, SELFPAY ==
--- NOTE | 2021-06-14 07:00 | DI.CT_ITS ---
Exam(s) CT HEAD WO EXAM: CT HEAD WO CLINICAL HISTORY: memory loss,R43.3. TECHNIQUE: Imaging Protocol: Axial computed tomography images with coronal and sagittal reformatted images were created and reviewed COMPARISON: No exams were available for comparison FINDINGS: Ventricles and Extra axial spaces: Normal in size and morphology for the patient's age. Hemorrhage: None. 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 There is a small area of encephalomalacia in the posterior medial right occipital lobe which may represent a prior insult. No acute territorial infarct is seen. Midline shift: None. Brainstem/Cerebellum: Normal. Calvarium: Normal. Visualized Paranasal sinuses/Mastoids: Clear. Soft Tissues: Unremarkable. IMPRESSION: No acute intracranial process. RADIATION DOSE DELIVERED: 692.14mGy.cm Total DLP DATA REPOSITORY: All CT scans at this facility are submitted to the National Radiology Data Registry (NRDR) Dose Index Registry (DIR) with the [employer] [place] [employer] (ACR). RADIATION OPTIMIZATION: All CT scans at this facility use at least one of these dose optimization te chniques: automated exposure control; mA and/or kV adjustment per patient size (includes targeted exa ms where dose is matched to clinical indication); or iterative reconstruction.
== END 2021-06-14 01:08 ==
PROVIDERS: PCP Nurse Practitioner; Visit Provider Nurse Practitioner
DX: R41.3 Other amnesia (principal)
CPT/HCPCS: 70450

== ENCOUNTER 2021-06-18 04:37 | Outpatient (CLI) | payer MEDICAID, SELFPAY ==
[2021-06-18 11:46] LABS: TSH (W/Ref FT4) 1.75 uIU/mL (0.36-3.74); Vitamin B12 445 pg/mL (193-986)
== END 2021-06-18 04:38 | disposition home or self-care (01) ==
LOC: LBO 04:37
PROVIDERS: PCP Nurse Practitioner; Visit Provider Nurse Practitioner
DX: R41.3 Other amnesia (principal); I10 Essential (primary) hypertension
CPT/HCPCS: 36415; 82607; 84443

== ENCOUNTER → 2021-07-18 12:40 | Outpatient (CLI) | payer MEDICAID, SELFPAY ==
--- NOTE | 2021-07-18 09:30 | DI.CT_ITS ---
Exam(s) CT ABDOMEN PELVIS WO EXAM: CT ABDOMEN PELVIS WO CLINICAL HISTORY: Pain since June 22, ventral hernia repair 05/07, abd pain TECHNIQUE: COMPARISON: CT CT ABDOMEN PELVIS W from 02/05/2021 FINDINGS: CT examination of the abdomen and pelvis was performed with oral contrast only. Note is made of coronary artery calcification. Images obtained through the lung bases are unremarkable. Liver spleen and pancreas have a grossly normal non-contrast appearance. Gallbladder is has been janette gically removed. No biliary dilatation seen. Adrenals appear normal bilaterally. There is no evidence of urinary tract calcification or obstructi on. Abdominal aorta is of normal diameter. No abdominal or pelvic adenopathy seen. Urinary bladder is unremarkable in appearance. Uterus is atrophic or absent. Note is made of anastomotic sutures of the sigmoid colon. Prior examination of February 05, 2021 showed multiple complex ventral hernias. On today's examinati on, which is reportedly postoperative, there is a reduction in the number and size of the complex her nias, however a number of ventral hernias do persist, several of which contain unobstructed loop of b owel. No gross abscess identified by noncontrast criteria. No significant bowel wall abnormality se en. IMPRESSION: Multiple persistent or recurrent small ventral hernias which contain bowel, no evidence of bowel obst ruction at this time RADIATION DOSE DELIVERED: 1,310.38mGy.cm Total DLP !Error CTDIvol RADIATION OPTIMIZATION: All CT scans at this facility use at least one of these dose optimization te chniques: automated exposure control; mA and/or kV adjustment per patient size (includes targeted exa ms where dose is matched to clinical indication); or iterative reconstruction.
[2021-07-18] MEDS: Breeza Beverage 473 ML BTL PO ×2 (11:46→11:47)
[2021-07-18] MEDS: Gastrografin 120 ML BTL 25 ML PO (11:47)
== END ==
PROVIDERS: PCP Nurse Practitioner; Visit Provider Nurse Practitioner
DX: K43.9 Ventral hernia without obstruction or gangrene; R10.9 Unspecified abdominal pain; Z87.19 Personal history of other diseases of the digestive system; Z98.890 Other specified postprocedural states; Z90.49 Acquired absence of other specified parts of digestive tract
CPT/HCPCS: 74176

== ENCOUNTER → 2021-08-05 02:16 | Outpatient (CLI) | payer MEDICAID, SELFPAY ==
--- NOTE | 2021-08-05 07:45 | DI.MRI_ITS ---
Exam(s) MR ANGIO BRAIN WO CLINICAL HISTORY: stroke, abnl ct scan, I63.9. TECHNIQUE: 3D [id number] study. MIP reconstructions COMPARISON: None. FINDINGS: Exam mildly limited by motion. Carotid Arteries: No aneurysm, occlusion or significant stenosis. Anterior Cerebral Arteries: Right: No aneurysm, occlusion or significant stenosis. Left: No aneurysm, occlusion or significant stenosis. Middle Cerebral Arteries: Right: No aneurysm, occlusion or significant stenosis. Left: No aneurysm, occlusion or significant stenosis. Posterior Cerebral Arteries: Right: No aneurysm, occlusion or significant stenosis. Left: No aneurysm, occlusion or significant stenosis. Vertebral Arteries: Right: No aneurysm, occlusion or significant stenosis. Left: No aneurysm, occlusion or significant stenosis. Basilar Artery: No aneurysm, occlusion or significant stenosis. IMPRESSION: Normal MRA examination of the [place]. DATA REPOSITORY:
--- NOTE | 2021-08-05 07:45 | DI.MRI_ITS ---
Exam(s) MR ANGIO NECK WO EXAM: MR ANGIO NECK WO CLINICAL HISTORY: stroke, abnl ct scan, I63.9 TECHNIQUE: 2D and 3D [id number] studies. MIP reconstructions. COMPARISON: No exams were available for comparison FINDINGS: Exam mildly limited by motion. Mild amount of plaque at the left common carotid bulb and proximal left internal carotid artery no si gnificant stenosis. No significant plaque or stenosis of right common, internal or external carotid arteries. No significant stenosis of the vertebral arteries. IMPRESSION: Mild mount of plaque at the left common carotid bulb and proximal left internal carotid artery causin g mild stenosis. No evidence of dissection. DATA REPOSITORY:
--- NOTE | 2021-08-05 07:45 | DI.MRI_ITS ---
Exam(s) MR BRAIN WO EXAM: MR BRAIN WO CLINICAL HISTORY: abnormal CT scan, I63.9, stroke TECHNIQUE: Multiplanar multisequence MRI of the brain was performed. COMPARISON: CT CT HEAD WO from 06/14/2021 MR MR ANGIO BRAIN WO from 08/05/2021 FINDINGS: VENTRICLES AND EXTRA AXIAL SPACES: Normal in size and morphology for the patient's age. MIDLINE SHIFT: None. CEREBRAL PARENCHYMA: Small area of old infarct with focus of hemosiderin right occipital lobe. No fo cus of restricted diffusion to suggest acute infarct. No space-occupying lesion identified. HEMORRHAGE: None. BRAINSTEM/CEREBELLUM: Small area of old infarct inferior right cerebellum. VISUALIZED PARANASAL SINUSES/MASTOIDS:Clear. [place]: Normal flow void. PITUITARY GLAND: Unremarkable. OTHER FINDINGS: None. IMPRESSION: Small areas of old infarction in the right occipital lobe and inferior right cerebellum. No acute ab normalities. DATA REPOSITORY:
--- NOTE | 2021-08-05 13:25 | DI.US_ITS ---
APPROVED REPORT EXAM: Comprehensive 2D, Doppler, and color-flow Echocardiogram Patient Location: Out-Patient Train Operator: Vero Holloway RDCS (AE) Indications: Stroke Echo Enhancing Agent Indication: Rule out Shunt Agent(s) / Amount(s) Used: Agitated Saline 30.0 cc Comments: Contrast study was performed with 3 IV injections of 10ccs of agitated normal saline, at re st, with cough and post valsalva maneuver. Negative contrast study for shunt flow. Other Information Study Quality: Adequate. Technically limited study due to body habitus. Conclusion Normal left ventricular wall thickness and chamber size. Estimated ejection fraction is 60%. Wall m otion is normal Normal right ventricular size and systolic function The atria are normal in size Aortic valve is trileaflet with trace to mild regurgitation Moderate mitral annular calcification with trace regurgitation Normal tricuspid valve with trace regurgitation There is no evidence of intracardiac shunting with agitated saline Mildly dilated ascending aorta Wall motion Left Ventricle The left ventricle is normal size. The left ventricular systolic function is normal. The left ventric ular ejection fraction is within the normal range. There is normal left ventricular wall thickness. T here is normal LV segmental wall motion. There is no ventricular septal defect visualized. LVEF is 60 %. Right Ventricle The right ventricle is normal size. The right ventricular systolic function is normal. Atria The left atrium size is normal. The right atrium size is normal. The interatrial septum is intact wit h no evidence for an atrial septal defect. Saline bubble contrast intravenous injection does not demo nstrate PFO. Aortic Valve The aortic valve is normal in structure. Aortic valve is trileaflet. There is no aortic valvular sten osis. Trace to mild aortic regurgitation. Mitral Valve Moderate mitral annular calcification. No evidence of mitral valve stenosis. Trace mitral regurgitati on. Tricuspid Valve The tricuspid valve is normal in structure. There is no tricuspid valve stenosis. Trace tricuspid reg urgitation. Unable to assess PA pressure. Pulmonic Valve The pulmonary valve is normal in structure. There is no pulmonic valvular stenosis. Trace to mild pul nati regurgitation. Great Vessels The aortic root is normal in size. The ascending aorta is mildly dilated. Aortic arch is not well vis ualized. IVC is normal in size and collapses >50% with inspiration. Pericardium Prominent anterior epicardial fat pad is present. 2D Dimensions IVSD d PLAX 0.98 cm F: 0.6-1.0 LV Vol A2C d MOD 101.9 mL LVPW d PLAX 0.94 cm F: 0.6 - 1.0 LV Vol A4C d MOD 71.3 mL LVID d PLAX 4.21 cm F: 3.8 - 5.2 LA vol/ BSA A2C s A-L 22.3 mL/m2 LVDs 2.80 cm F: 2.2 - 3.5 LA vol/ BSA A4C s A-L 19.0 mL/m2 Ao Root d 3.00 cm F: 2.7 - 3.3 LA Vol/ BSA Biplane s A-L 20.9 mL/m2 RA Area A4C 14.43 cm2 LA Area A4C s MOD 15.38 cm2 RA Vol/ BSA A4C s A-L 20.2 mL/m2 LA Area A2C s MOD 16.44 cm2 Ao Asc Diam d 3.40 cm F: 2.3 - 3.1 LV EF A4C MOD 60.8 % LV EF Teichholz 61.0 % LV EF A2C MOD 59.0 % LVEF (Meyer's) 57.19 % F: 54 - 74 LV EF Biplane MOD 57.2 % LV Volume 64.33 mL F: 46 - 106 SV 48.79 mL LV Volume Index 32.82 mL/m2 F: 29 - 61 SV Index 24.79 mL/m2 LV Vol Biplane MOD 85.3 mL FS 32.35 % M-Mode TAPSE 1.58 cm (M/F) >1.7 LV Diastology MV E' medial 0.088 (>0.07 m/s) E/A Ratio 0.6 LV E/e MED 8.85 (<14) MV E Vmax 0.78 (0.4-1.3 m/s) MV E' lateral 0.094 (>0.1 m/s) MV A Vmax 1.20 (0.4-1.3 m/s) LV E/e LAT 8.30 (<14) MV E/A Ratio 0.64 MV E/E' medial 8.89 MV E/E' lateral 8.31 Aortic Valve LVOT Area 3.40 cm2 AoV Area Vmax 2.82 cm2 LVOT Vmax 1.67 m/s AoV Area/ BSA (Vmax) 1.43 cm2/m2 LVOT Mean Peter. 1.00 m/s JAG Mean Peter. 2.58 cm2 LVOT Peak Grad 11.2 mmHg JAG Mean Peter. Index 1.31 cm2/m2 LVOT Mean Grad 4.9 mmHg AR DT 4000 msec LVOT VTI 0.363 m AR PHT 1160 msec LVOT Diam s 2.05 cm AoV Vmax 2.02 m/s Velocity Ratio 0.82 AoV Mean Peter. 1.31 m/s AoV Peak Grad 16.2 mmHg LVOT SV 123.39 mL AoV Mean Grad 7.8 mmHg AoV VTI 0.337 m AoV Area VTI 3.66 cm2 AoV Area/ BSA (VTI) 1.86 cm/m2 Mitral Valve MV DT 355 (160-240 msec) MV PHT 103 msec MV Area PHT 2.14 cm2 MV VTI 0.405 m MV Area VTI 3.05 (4.0-6.0 cm2) Pulmonary Valve PV Vmax 1.28 (0.5-1.5 m/s) RVOT Peak Gr. 3.47 mmHg PV Peak Grad 6.6 mmHg RVOT Mean Gr. 1.70 mmHg PV Mean Grad 3.7 mmHg RVOT VTI 0.186 m PV VTI 0.227 m RVOT Vmax 0.93 m/s
== END ==
PROVIDERS: PCP Nurse Practitioner; Visit Provider Nurse Practitioner Adult Health
DX: I63.9 Cerebral infarction, unspecified (principal)
CPT/HCPCS: 70544; 70547; 70551; 93306

== ENCOUNTER → 2021-08-14 03:14 | Outpatient (CLI) | payer MEDICAID, SELFPAY | PROVIDERS: PCP Nurse Practitioner; Visit Provider Student in an Organized Health Care Education/Training Program ==

== ENCOUNTER 2021-09-27 14:40 | Emergency (ER) | payer MEDICAID, SELFPAY ==
--- OUTSIDE RECORDS SUMMARY | 2021-09-27 14:47 | XMS_ITS | Encounter Summary ---
:1960 Author Organization [facility] Address [address] [place] [address] Care Team Providers Name Role Phone Hanane Martinez MD Primary Care Provider [phone] Encounter Details Date Type Department Care Team Description 10/26/2019 Travel Social History Tobacco Use Types Packs/Day Years Used Date Current Every Day Smoker 0.5 40 Smokeless Tobacco: Never Used Alcohol Use Standard Drinks/Week Comments Not Currently 0 (1 standard drink = 0.6 oz pure alcoho l) Sex Assigned at Date Recorded Not on file COVID-19 Exposure Response Date Recorded In the last month, have you been in contact with No / Unsure 10/26/2019 10:01 EDT someone who was confirmed or suspected to have Coronavirus / COVID-19? documented as of this encounter Plan of Treatment Not on filedocumented as of this encounter Visit Diagnoses Not on filedocumented in this encounter Care Teams Human Services Program Specialist Relationship Specialty Start Date End Date Hanane Martinez MD PCP - General 02/09/19 04/03/21 documented as of this encounter
--- OUTSIDE RECORDS SUMMARY | 2021-09-27 14:47 | XMS_ITS | Encounter Summary ---
:1960 Author Organization [facility] Address [address] [place] [address] Care Team Providers Name Role Phone Hanane Martinez MD Primary Care Provider [phone] Reason for Referral Cardiology (Routine) - New Request Specialty Diagnoses / Procedures Referred By Contact Refer red To Contact Diagnoses Pre-operative cardiovascular examination Negro Story MD Procedures EKG 12-LEAD [address] [facility] [address] [place] [address] Referral ID Status Reason Start Date Expiration Date Visits V isits Requested Authorized [id number] New Request 11/08/2019 1 1 Encounter Details Date Type Department Care Team Description 11/08/2019 Orders Only [facility] Negro Story, Pre- operative laboratory examination (Primary Dx); ENT - Papo BAUMAN Encounter for preoperative screening lab oratory testing for COVID-19 virus; [address] [facility] Pre-operative cardiovascular examination ; [place] [address] [address] Current smoker; [phone] [place], [place] [phone] Social History Tobacco Use Types Packs/Day Years [...] as of this encounter Plan of Treatment Scheduled Orders Name Type Priority Associated Diagnoses Order S chedule EKG 12-LEAD ECG Routine Pre-operative cardiovascular Expected: 11/17/2019 examination documented as of this encounter Visit Diagnoses Diagnosis Pre-operative laboratory examination - P rimary Pre-procedural laboratory examination Encounter for preoperative screening lab oratory testing for COVID-19 virus Pre-operative cardiovascular examination Current smoker Tobacco use disorder Pre-op chest exam Pre-operative respiratory examination documented in this encounter Care Teams Blindmaker Relationship Specialty Start Date End Date Hanane Martinez MD PCP - General 02/09/19 04/03/21 documented as of this encounter
--- OUTSIDE RECORDS SUMMARY | 2021-09-27 14:47 | XMS_ITS | Encounter Summary ---
:1960 Author Organization [facility] Address [address] [place] [address] Care Team Providers Name Role Phone Hanane Martinez MD Primary Care Provider [phone] Reason for Visit Reason Onset Date Comments Appointment Related 11/08/2019 Encounter Details Date Type Department Care Team Description 11/08/2019 Telephone [facility] - Jose Alberto Story MD Appointment Related [place] [address] [place] [address] [place], [place] [phone] (Wo rk) Social History Tobacco Use Types Packs/Day Years Used Date Current Every Day Smoker 0.5 40 Smokeless Tobacco: Never Used Alcohol Use Standard Drinks/Week Comments Not Currently 0 (1 standard drink = 0.6 oz pure alcoho l) Sex Assigned at Date Recorded Not on file COVID-19 Exposure Response Date Recorded In the last month, have you been in contact with No / Unsure 11/17/2019 9:29 EDT someone who was confirmed or suspected to have Coronavirus / COVID-19? documented as of this encounter Miscellaneous Notes Telephone Encounter - Justa Modi - 11/18/2019 1501 EDT Patient requested anterior nares test due to deviated septum and nose bleeding. Can you please change her order to the anterior nares test? Thank you elephone Encounter - Justa Modi - 11/18/2019 1442 EDT C-19 screening recommended by provider. Routed for testing ordering. GETTING A RIDE, UNSURE OF VEHICLE PROCEDURE 11/27 Spoke to patient and verbally gave instructions for Testing Facility. Patient is instructed to be there at am / pm sharp. elephone Encounter - Vane Alaniz - 11/08/2019 1147 EDT Pt scheduled for out patient surgery Dr. Story on 11/27 Order in [employer] Pt has confirmed to quarantine documented in this encounter Plan of Treatment Not on filedocumented as of this encounter Visit Diagnoses Diagnosis Pre-procedure lab exam - Primary Pre-procedural laboratory examination documented in this encounter Care Teams Diesel Truck Driver Relationship Specialty Start Date End Date Hanane Martinez MD PCP - General 02/09/19 04/03/21 documented as of this encounter
--- OUTSIDE RECORDS SUMMARY | 2021-09-27 14:47 | XMS_ITS | Encounter Summary ---
:1960 Author Organization [facility] Address [address] [place] [address] Care Team Providers Name Role Phone Hanane Martinez MD Primary Care Provider [phone] Reason for Visit Reason Comments Post-OP Follow Up surgery 11/27, today suture r emoval Encounter Details Date Type Department Care Team Description 12/07/2019 Office Visit [facility] [facility] Negro Story, Granular cell tumor [address] [facility] (Primary Dx) [address] [place] [address] [address] [place] [address] Social History Tobacco Use Types Packs/Day Years Used Date Current Every Day Smoker 0.5 40 Smokeless Tobacco: Never Used Alcohol Use Standard Drinks/Week Comments Not Currently 0 (1 standard drink = 0.6 oz pure alcoho l) Sex Assigned at Date Recorded Not on file COVID-19 Exposure Response Date Recorded In the last month, have you been in contact with No / Unsure 12/07/2019 10:56 EDT someone who was confirmed or suspected to have Coronavirus / COVID-19? 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 SUBJECTIVE: The patient is doing well, no problems eating. OBJECTIVE: Good wound healing, no evidence of infection. Sutures removed. Pathology shows granular cell tumor with positive margin. 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 PLAN: Follow up with ENT in 3 months or p.r.n. documented in this encounter Plan of Treatment Not on filedocumented as of this encounter Visit Diagnoses Diagnosis Granular cell tumor - Primary Other benign neoplasm of connective and other soft tissue of unspecified site documented in this encounter Care Teams Manager Air Relationship Specialty Start Date End Date Hanane Martinez MD PCP - General 02/09/19 04/03/21 documented as of this encounter
--- OUTSIDE RECORDS SUMMARY | 2021-09-27 14:47 | XMS_ITS | Encounter Summary ---
:1960 Author Organization [facility] Address [address] [place] [address] Care Team Providers Name Role Phone Hanane Martinez MD Primary Care Provider [phone] Reason for Visit Reason Comments Other approx 1 year ago had a smal l pimple on tongue and within a week enlarge. recently causing more discom fort depending on food. denies bleeding. Consult (3 - 10 Business Days) - Authorization Not Required Specialty Diagnoses / Procedures Referred By Contact Refer red To Contact Otolaryngology Diagnoses Tongue lesion Hanane Martinez [place] [facility] [id number] [place] [address] Phone: [phone] Referral ID Status Reason Start Expiration Visits Visits Date Date Requested Authorized [id number] Authorization Specialty 1 1 Not Required Services 0 Required Encounter Details Date Type Department Care Team Description 10/26/2019 Office Visit [facility] ENT Negro Story, Tongue lesion (Primary - Papo BAUMAN Dx) 130 [facility] [address] [place] [address] [address] [place] [address] Social History Tobacco Use Types [...] / COVID-19? documented as of this encounter Last Filed Vital Signs Vital Sign Reading Time Taken Comments Blood Pressure 130/82 10/26/2019 1010 EDT Pulse 85 10/26/2019 1010 EDT Temperature - - Respiratory Rate - - Oxygen Saturation - - Inhaled Oxygen Concentration - - Weight 88.9 kg (196 lb) 10/26/2019 1010 EDT Height 152.4 cm (5') 10/26/2019 1010 EDT Body Mass Index 38.28 10/26/2019 1010 EDT documented in this encounter Progress Notes Negro Story MD - 10/26/2019 1010 EDT This is a consult from Hanane Martinez for evaluation of a tongue lesion. HISTORY OF PRESENT ILLNESS: This is a 59-year-old female with a 1-year history of a lesion on the dorsal surface of the tongue that began as a small pimple, which went away and then came back, gradually enlarging over time. It is otherwise asymptomatic, not painful but is causing more discomfort with eating over time. No prior history of trauma or infection. No bleeding. Symptoms are of mild severity, constant. No known modifying factors or other associated signs or symptoms. PAST MEDICAL HISTORY: Current medications include Tylenol, albuterol, and ibuprofen. She has no known drug allergies. MEDICAL ILLNESSES: Significant for asthma, hypertension, diverticulitis. PRIOR SURGERIES: Include colon surgery. FAMILY HISTORY: Negative for anesthesia problems. SOCIAL HISTORY: Positive for smoking. REVIEW OF SYSTEMS: Otherwise negative for a complete review of all systems. PHYSICAL EXAM: General: Well-developed, well-nourished, alert, oriented and cooperative adult femalein no acute distress. Normal voice. Vital Signs: Height 60 inches, weight 196. Blood pressure 130/82, pulse 85. No reportable pain. The face is normal without lesions. Facial strength is symmetric. Eyeexam is normal. Ears: External ears are normal, canals are clear, tympanic membranes are normal. Hearing is intact. Nose: Nasal dorsum is midline; the airway is patent. Oral cavity, lips, floor of mouth, and buccal mucosa within normal limits. There is a 2 cm raised, firm lesion on the dorsal surface of the left anterior tongue. Firm, no ulceration. Neck: No pathologic lymphadenopathy. Trachea is midline. Thyroid is normal. Chest: Clear to auscultation. Heart: Regular rate and rhythm. PROCEDURE: Biopsy of the tongue lesion. ??? INFORMED CONSENT: I explained the procedure, as well as benefits of the procedure, alternative treatments, and consequences of no treatment to patient. ??? Verbal consent for the procedure was obtained. ??? A pre-procedure verification was conducted prior to the procedure. ??? Final verification/timeout immediately prior to procedure has been conducted by the attending provider, including all members of the procedural team as appropriate to their involvement in the procedure. ??? The patient's identity, procedure, and when applicable the: side/site, patient position, availability of special equipment or special requirements was verbally confirmed prior to the procedure. The procedure along with the possible risks, complications, alternatives and aims were discussed indetail with the patient who understands these risks and agrees with the procedure. Topical and localanesthesia was applied. A 3 mm punch biopsy was then performed. Bleeding was controlled with silver nitrate. Specimen was sent to pathology. The patient tolerated the procedure well, no complications. IMPRESSION: Tongue lesion. PLAN: Follow up in 1 week for a review of biopsy results. documented in this encounter Plan of Treatment Not on filedocumented as of this encounter Procedures Procedure Name Priority Date/Time Associated Diagnosis Comme [facility] SURGICAL PATHOLOGY Routine 10/26/2019 Tongue lesion Results for this procedure are i n the results section . documented in this encounter Results SURGICAL PATHOLOGY (10/26/2019) Specimen Narrative [facility] - 020 14:31 EDT Name: BILL MONTGOMERY ? : [birth year] ?Age/Sex: 59/F ?Unit#: [id number] ? Loc: LAB.OPX ? Status: REG REF ?? Reg Date: 10/26/19 ? Pt.Phone Number : ? Specimen: [id number] ? STA TUS: SOUT ?Spec Date:10/26/19 ? Physician Copies: ?Negro Story ??M Tissues: A ?? Tongue biopsy (TONGUE) ? CPT: 39465 ?? Units: ??1 ? 82649 ? 1 ? 83299 ? 1 ? 47400 ? 3 ?FINAL DIAGNOSIS ? TONGUE, PUNCH BIOPSY; ? 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 ??See comment. ? 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 ? - PAS stain positive for fungus, morphologically consistent with Frances. ?COMMENT ? The submucosa is expanded by a prolifer ation of bland appearing polygonal cells with abundant eosinophilic granular cyt oplasm. ??The lesional cells are strongly positive for S100 protein (negative for pankeratin, p63 and CD68). ??Histology and S100 positivity are compatible with granular cell tumor. ??The overlying squamous mucosa is proliferative with c omplex architecture but no overtly malignant features. 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 ??Clinical correlation is recomm ended. ?? Immunohistochemical staining was perfor med on this case to further characterize the lesion. Positive controls stained a ppropriately. ?? Antibody Clone ? Result Keratin AE1-AE3 (AE1/AE3, [facility]) ?Highlights squamous epithelium p63 (4A4, [facility]) ?Highlights epithelial basal layer S-100 (4C4.9, [place]) ?Positive in lesional cells CD68 (514H12, Leica) ?Negative in lesional cells (background ? nonspecific weak reactivity) ?? NOTE: ??One or more of the reagents us ed in immunohistochemical testing in this case may not have been cleared or appro margie by the U.S. Food and Drug Administration (FDA). ??The FDA has det ermined that such clearance or approval is not necessary. ??These tests are use d for clinical purposes. ??They should not be regarded as investigational or for r esearch. ??These reagents' performance characteristics have been determined by [facility] and/or Patient: BILL MONTGOMERY ? #[id number] ? (Continued) Specimen: [id number] ? Rec eived: 10/26/19-6 ?(Continued) ?COMMENT ? (Continued) by the referring laboratory. ??The posi tive and negative controls worked appropriately. If immunoperoxidase belem gutiérrez has been performed on alcohol fixed cytology specimens, which has not been fully validated, the assays should be interpreted with caution and correla lorraine with clinical data. ??This laboratory is certified under the Clinical Laborat ory Improvement Amendments of 1988 (CLIA-88) as qualified to perform high complexity clinical laboratory testing. ? GROSS DESCRIPTION ? Received in formalin labeled Pedro esdras [place] is a piece of burdick-white tissue ? measuring 0.4 x 0.3 x 0.3 cm, ginna ble to orient. ??es 1 KF ?? PREOP DX/CLINICAL HISTORY ?Tongue lesion. Signed ____(signature on file)____ Lorene Santillan M.D. 10/31/19 By the signature above, the attending ph ysician certifies that he/she has personally conducted a gross and/or microscopic exa mination of the described specimens and rendered or confirmed the above diagnosi s. Test Performed by [facility], [address] [place] [address] Supervisor Electron Tube Processing: Lorene Gayle MD PHD Performing Organization Address City/State/ZIP Code Phon e Number [facility] [address] [place] [address] documented in this encounter Visit Diagnoses Diagnosis Tongue lesion - Primary Other specified conditions of the tongue documented in this encounter Discontinued Medications Medication Sig Discontinue Reason Start Date End Date ondansetron (ZOFRAN) 4 Take 1 Tab by mouth 09/23/2019 10/26/2019 mg tablet every 8 hours as needed for Nausea. nystatin (MYCOSTATIN) APPLY 2 TO 3 TIMES A 04/08/2019 10/26/2019 powder DAY NEEDED WITH DRESSING VAC CHANGES amLODIPine (NORVASC) 10 Take 10 mg by mouth 09/20/2019 10/26/2019 mg tablet daily. documented as of this encounter Care Teams Cold Mill Operator Relationship Specialty Start Date End Date Hanane Martinez MD PCP - General 02/09/19 04/03/21 documented as of this encounter
--- OUTSIDE RECORDS SUMMARY | 2021-09-27 14:47 | XMS_ITS | Encounter Summary ---
:1960 Author Organization [facility] Address [address] [place] [address] Care Team Providers Name Role Phone Hanane Martinez MD Primary Care Provider [phone] Reason for Visit Reason Onset Date Comments Update 05/27/2019 Encounter Details Date Type Department Care Team Description 06/01/2019 Telephone [facility] Mary Jo Drew RN Update Family Medicine - [place] [address] [address] Social History Tobacco Use Types Packs/Day Years Used Date Never Assessed Sex Assigned at Date Recorded Not on file documented as of this encounter Miscellaneous Notes Telephone Encounter - Hanane Martinez MD - 06/01/2019 1440 EDT noted Telephone Encounter - Clarissa Drew - 06/01/2019 1405 EDT Message left on Rx line by [facility] that Jahaira has been d/c'd from [facility] services. She reports that Jahaira's [id number] is assisting Jahaira and that they are independent in Jahaira's ostomy care so are no longer in need of [facility]. documented in this encounter Plan of Treatment Not on filedocumented as of this encounter Visit Diagnoses Not on filedocumented in this encounter Care Teams Cost Recorder Relationship Specialty Start Date End Date Hanane Martinez MD PCP - General 02/09/19 04/03/21 documented as of this encounter
--- OUTSIDE RECORDS SUMMARY | 2021-09-27 14:47 | XMS_ITS | Encounter Summary ---
:1960 Author Organization [facility] Address [address] [place] [address] Care Team Providers Name Role Phone Hanane Martinez MD Primary Care Provider [phone] Reason for Referral Consult (Routine) - Closed Specialty Diagnoses / Procedures Referred By Contact Refer red To Contact Diagnoses Medial knee pain, right Hanane Martinez MD [place] [address] [facility] Quinn Patel MD [place] [address] [address] [place] [address] Phone: Fax: Referral ID Status Reason Start Date Expiration Date Visits V isits Requested Authorized [id number] Closed Specialty 07/30/2020 1 1 Services Required Question Answer Reason for Request: chronic partial right ACL te ar, significant subacute worsening with locking/catching, media l tenderness, ?meniscal injury Reason for Visit Reason Comments Knee Pain Encounter Details Date Type Department Care Team Description 07/30/2020 Office Visit [facility] - Hanane Martinez edial knee pain, right (Primary Dx); [facility] Family Medicine MD [place] Chronic pain of left knee - [place] [address] [place], [place] [phone] (Wo rk) Social History Tobacco Use Types Packs/Day Years Used Date Current Every Day Smoker 0.5 40 Smokeless Tobacco: Never Used Alcohol Use Standard Drinks/Week Comments Not Currently 0 (1 standard drink = 0.6 oz pure alcoho l) Sex Assigned at Date Recorded Not on file documented as of this encounter Last Filed Vital Signs Vital Sign Reading Time Taken Comments Blood Pressure 140/70 07/30/2020 1534 EDT Pulse 87 07/30/2020 1534 EDT Temperature 36.8 ??C (98.2 ??F) 07/30/2020 1534 EDT Respiratory Rate 18 07/30/2020 1534 EDT Oxygen Saturation 98% 07/30/2020 1534 EDT Inhaled Oxygen Concentration - - Weight - - Height 152.4 cm (5') 07/30/2020 1534 EDT Body Mass Index - - documented in this encounter Progress Notes Hanane Martinez MD - 07/30/2020 7713 EDT [facility] Primary Care Subjective: Chief Complaint(s): Knee Pain HPI: Has a history of a fall about 5 years ago in which she tore both ACLs, complete on the left partial on the right. Has had waxing and waning apin in the right knee since that time. In the last few months right knee is significantly more painful. Sometimes trouble bending it. Seems unstable, has given out on Jahaira a couple times. Also endorses frequent locking, catching. No new injuries or falls the triggered the subacute worsening. Has been swollen but not red or hot. Remainder of leg has not been swollen. I have reviewed patient's tobacco history: reports that she has been smoking. She has a 20.00 pack-year smoking history. She has never used smokeless tobacco. I have reviewed current problem list and current medications. ROS: see HPI Objective: Examination: Vitals: BP 140/70 (BP Cuff Location: Left arm, BP Patient Position: Sitting, BP Cuff Sizes: Adult, long) Pulse 87 Temp 36.8 ??C (98.2 ??F) (Oral) Resp 18 Ht 152.4 cm (60) SpO2 98% BMI 38.28 kg/m??Body mass index is 38.28 kg/m??. A+O, NAD Bilateral knees without redness or warmth Right knee may be slightly swollen compared to left Tender along right medial joint line, lateral non-tender Pain with both verus and valgus stress to right knee, did not appreciate laxity Unable to flex right knee to 90 degrees due to pain, [facility] test deferred in setting pain/limited ROM Data reviewed with patient (past results): Assessment & Plan: 1. Medial knee pain, right Sent to [facility] in [facility] CONS/FOLLOW UP ORTHOPEDICS; Future - XR KNEE RIGHT 4 OR MORE VIEWS; Future 2. Chronic pain of left knee Sent to [facility] in [facility] - XR KNEE LEFT 4 OR MORE VIEWS; Future Return if symptoms worsen or fail to improve. I spent a total of 30 minutes on the date of this encounter meeting with the patient and reviewing documentation/coordinating care as described in the above note. No procedures were performed at the time of the visit. BTDevika Heart RN - 07/30/2020 1545 EDT Jahaira is here today for RT knee pain. Has a torn ACL in her RT knee which has been getting increasingly more painful. documented in this encounter Plan of Treatment Scheduled Referrals Name Type Priority Associated Order Schedule Diagnoses AMB CONS/FOLLOW UP Outpatient Referral Routine Medial knee dwayne n, Expected: ORTHOPEDICS right 07/30/2020 (Approximate) documented as of this encounter Visit Diagnoses Diagnosis Medial knee pain, right - Primary Chronic pain of left knee Pain in joint, lower leg documented in this encounter Discontinued Medications Medication Sig Discontinue Reason Start Date End Date ALBUTEROL INHL Inhale as directed as needed. Error 1 07/30/2020 documented as of this encounter Historical Medications This list may reflect changes made after this encounter. Medication Sig Dispensed Refills Start Date End Date ALBUTEROL INHL Inhale as directed as needed. 0 07/30/2020 added in this encounter Care Teams Head Strength And Conditioning Coach Relationship Specialty Start Date End Date Hanane Martinez MD PCP - General 02/09/19 04/03/21 documented as of this encounter
--- OUTSIDE RECORDS SUMMARY | 2021-09-27 14:47 | XMS_ITS | Encounter Summary ---
:1960 Author Organization [facility] Address [address] [place] [address] Care Team Providers Name Role Phone Hanane Martinez MD Primary Care Provider [phone] Encounter Details Date Type Department Care Team Description 12/07/2019 Travel Social History Tobacco Use Types Packs/Day [...] on filedocumented in this encounter Care Teams Pm Technician Relationship Specialty Start Date End Date Hanane Martinez MD PCP - General 02/09/19 04/03/21 documented as of this encounter
--- OUTSIDE RECORDS SUMMARY | 2021-09-27 14:47 | XMS_ITS | Encounter Summary ---
:1960 Author Organization [facility] Address [address] [place] [address] Care Team Providers Name Role Phone Hanane Martinez MD Primary Care Provider [phone] Encounter Details Date Type Department Care Team Description 11/28/2019 Results Only [facility] Jose Alberto Montes MD [address] [place] [address] [place] [address] (Wo rk) Social History Tobacco Use [...] Procedure Name Priority Date/Time Associated Diagnosis Comme nts SURGICAL PATHOLOGY Routine 11/28/2019 Results f or this procedure are i n the results section . documented in this encounter Results SURGICAL PATHOLOGY (11/28/2019) Specimen Narrative [facility] - 020 9:25 EDT Name: BILL MONTGOMERY ? : [birth year] ?Age/Sex: 59/F ?Unit#: [id number] ? Loc: SDS ? Status: DEP SDC ?? Reg Date: 11/28/19 ? Pt.Phone Number : ? Specimen: [id number] ? KAMI KINCAID: SIRISHA ?Spec Date:11/28/19 ? Physician Copies: ?Negro Story ??M Tissues: A ?? Tongue biopsy (TONGUE) ? Hanane Martinez CPT: 13716 ?? Units: ??1 ? 07211 ? 1 ?FINAL DIAGNOSIS ? TONGUE, EXCISIONAL BIOPSY; ? 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 The strong, diffuse S100 immunoreactivi ty, tumor cell morphology, and presence of pseudoepitheliomatous hyperplasia [place] pport the diagnosis. Clinicopathologic correlation is suggested. ?? Immunohistochemical staining was perfor med on this case to further characterize the lesion. Positive controls stained a ppropriately. ?? Antibody Clone ? Result S-100 (4C4.9, [place]) ? Tumor cells strongly positive ?? NOTE: ??One or more of the [...] reagents' performance characteristics have been determined by [facility] and/or by the referring laboratory. ??The posi tive and negative controls worked appropriately. If immunoperoxidase stai brock has been performed on alcohol fixed cytology specimens, which has not been fully validated, the assays should be interpreted with caution and correla lorraine with clinical data. ??This laboratory is certified under the Clinical Laborat ory Improvement Amendments of 1988 (CLIA-88) as qualified to perform high complexity clinical laboratory testing. ? GROSS DESCRIPTION ? Received in formalin labeled [facility] and tongue lesion is a telfa pad ? with two seperate fragments of fi rm white tissue ranging in size from 1.2 x 1.1 ? x 0.9 cm to 0.7 x 0.4 x 0.4 cm. T he putative resection margin of the larger ? piece of tissue is inked black. ? ?The specimens are serially sectioned and Patient: BILL MONTGOMERY ? #[id number] ? (Continued) Specimen: [id number] ? Rec eived: 11/28/19-1245 ?(Continued) ? GROSS DESCRIPTION ?(Continued) ? entirely submitted in one sincere hoyos ??MS ?? PREOP DX/CLINICAL HISTORY ?Tongue lesion. Signed ____(signature on file)____ Jori Jain 12/02/19 ?? By the signature above, the attending ph ysician certifies that he/she has personally conducted a gross and/or microscopic exa mination of the described specimens and rendered or confirmed the above diagnosi s. Test Performed by [facility], [address] [place] [address] Supervisor Payroll: Lorene Gayle MD PHD Performing Organization Address City/State/[facility] Code Phon e Number [facility] [address] [place] [address] documented in this encounter Visit Diagnoses Not on filedocumented in this encounter Care Teams Microbiology Director Relationship Specialty Start Date End Date Hanane Martinez MD PCP - General 02/09/19 04/03/21 documented as of this encounter
--- OUTSIDE RECORDS SUMMARY | 2021-09-27 14:47 | XMS_ITS | Encounter Summary ---
:1960 Author Organization [facility] Address [address] [place] [address] Care Team Providers Name Role Phone Hanane Martinez MD Primary Care Provider [phone] Reason for Visit Reason Onset Date Comments Other 05/08/2020 TCM Encounter Details Date Type Department Care Team Description 05/08/2020 Telephone [facility] Channing marques, Hanane Mendez MD Other (TCM) Family Medicine - [address] [place] [address] [place] [address] [phone] Social History Tobacco Use Types Packs/Day Years Used Date Current Every Day Smoker 0.5 40 Smokeless Tobacco: Never Used Alcohol Use Standard Drinks/Week Comments Not Currently 0 (1 standard drink = 0.6 oz pure alcoho l) Sex Assigned at Date Recorded Not on file documented as of this encounter Miscellaneous Notes Telephone Encounter - Payton Saenz RN - 05/08/2020 6750 EST Spoke with Jahaira. She's doing well. Was just discharged from home health since she's doing so well. No indication of infection at the incision. She is watching for this, but her brother is also checking this every two days at least. Sutures are dissolveable per Jahaira. Has a follow up with [facility] on [id number]. Once she has that appt and gets the all clear, she is going to call here to scheduled an appt with Dr. Martinez. Wants to discuss her knees (reports bilateral torn ACLs). States that she saw ortho for this about 5 years ago, and they advised surgery. Was not able to have surgery at the time, as she didn't have insurance. Does not feel that she needs a TCM visit with Dr. Martinez as she is already seeing [facility]. Reviewed meds and allergies with her. Pain has been fine (has not needed anything for pain since the first few days of being home). Bowelsand bladder are WNL, and eating and drinking well. Has not needed Miralax or Senna. Aware of the indications for needing to be assessed again, including but not limited to infection atthe incision site. elephone Encounter - Kandi Hall - 05/08/2020 0808 EST Admission date: 04/24/2020 Discharged from: [facility] Discharge date: 04/27/2020 Discharge to: Home with [facility] Diagnosis: Incarcerated ventral hernia with SBO documented in this encounter Plan of Treatment Not on filedocumented as of this encounter Visit Diagnoses Not on filedocumented in this encounter Discontinued Medications Medication Sig Discontinue Reason Start Date End Date acetaminophen (TYLENOL) Take 500 mg by Therapy completed 09/19/2019 05/08/2020 500 mg tablet mouth every 6 hours as needed. ibuprofen (MOTRIN) 600 mg Take 600 mg by Therapy completed 09/19/1905/08/2020 tablet mouth every 6 hours as needed. documented as of this encounter Historical Medications This list may reflect changes made after this encounter. Medication Sig Dispensed Refills Start Date End Date SENEXON-S 8.6-50 mg per Take 2 Tabs by mouth 0 tablet 2 times daily as needed. polyethylene glycol Take 17 g by mouth 0 04/27/19 21 (GLYCOLAX) 17 gram/dose daily as needed. powder nicotine polacrilex Take 2 mg by mouth 0 04/27/19 21 (NICORETTE) 2 mg gum once as needed. nicotine (NICODERM CQ) 21 Place 1 Patch onto 0 mg/24 hr patch the skin daily. added in this encounter Care Teams Legal Archivist Relationship Specialty Start Date End Date Hanane Martinez MD PCP - General 02/09/19 04/03/21 documented as of this encounter
--- OUTSIDE RECORDS SUMMARY | 2021-09-27 14:47 | XMS_ITS | Clinical Summary ---
:1960 Author Organization [facility] Address [address] [place] [address] Care Team Providers Name Role Phone None, Provider Primary Care Provider Unavailable Allergies No known active allergies Medications Medication Sig Dispensed Refills Start Date End Date Status albuterol (PROAIR HFA) 2 puff(s) inhaled 0 6 Active 90 mcg/actuation USING SPACER 4 inhaler times a day X 1 WEEK THEN PRN nicotine (NICODERM CQ) Place 1 Patch 0 04/27/2020 Active 21 mg/24 hr patch onto the skin daily. nicotine polacrilex Take 2 mg by 0 04/27/2020 Active (NICORETTE) 2 mg gum mouth once as needed. polyethylene glycol Take 17 g by 0 04/27/2020 Active (GLYCOLAX) 17 gram/dose mouth daily as powder needed. SENEXON-S 8.6-50 mg per Take 2 Tabs by 0 04/27/2020 Active tablet mouth 2 times daily as needed. 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 Cutaneous fungal infection 09/23/2019 De Quervain's tenosynovitis, right 09/23/2019 Essential (primary) hypertension 09/23/2019 Smoker 09/23/2019 Attention to colostomy ([facility]) 09/05/2019 Diverticulitis 08/15/2019 Surgical History Surgery Date Site/Laterality Comments COLON SURGERY 03/19/2019 colostomy placed Medical History Medical History Date Comments Diverticulitis 2019 Asthma Hypertension Social History Tobacco Use Types Packs/Day Years Used Date Current Every Day Smoker 0.5 40 Smokeless Tobacco: Never Used Alcohol Use Standard Drinks/Week Comments Not Currently 0 (1 standard drink = 0.6 oz pure alcoho l) Sex Assigned at Date Recorded Not on file Last Filed Vital Signs Vital Sign Reading Time Taken Comments Blood Pressure 140/70 07/30/2020 1534 EDT Pulse 87 07/30/2020 1534 EDT Temperature 36.8 ??C (98.2 ??F) 07/30/2020 1534 EDT Respiratory Rate 18 07/30/2020 1534 EDT Oxygen Saturation 98% 07/30/2020 1534 EDT Inhaled Oxygen Concentration - - Weight 88.9 kg (196 lb) 11/17/2019 0935 EDT Height 152.4 cm (5') 07/30/2020 1534 EDT Body Mass Index 38.28 10/26/2019 1010 EDT Plan of Treatment Health Maintenance Due Date Last Done Comments Asthma Action Plan 1960 Hepatitis C Screen 1960 Lung Function Test (Spirometry) 1960 Social Determinants Of Health (SDOH) 1960 COVID-19 Vaccine (#1) 01/23/1963 Lipid Profile Screening (Cholesterol) 1965 Pneumococcal Immunization (1 - PCV) 1968 Behavioral Health Screen 1974 HIV Screening 1978 Advance Directive 1980 Preventive Care Visit 1980 Pertussis (Adult) Immunization 1981 Tetanus (Adult) Immunization 1981 Cervical Cancer Screening 07/24/1983 Barium Enema (Colon Cancer Screening) 2012 Fecal Blood Test (Colon Cancer Screening) 2012 Fecal DNA (Colon Cancer Screening) 2012 Shingles Immunization (1 of 2) 2012 Sigmoidoscopy (Colon Cancer Screening) 2012 Breast Cancer Screening 01/26/2019 01/26/2017 Influenza Immunization (Adult) (#1) 2021 Colonoscopy (Colon Cancer Screening) 08/17/2029 08/18/2019 Colorectal Cancer Screening 08/17/2029 Insurance Payer Benefit Plan Subscriber ID Effective Phone Address Typ e / Group Dates MEDICAID ACO MEDICAID ACO [id number] 2020-Pres [phone] [address] Medicaid [place] [address] [place] [id number] Jahaira Montgomery Personal/Family Self 1960 [address] [place] [address] Jahaira Montgomery Personal/Family Self 1960 [address] [place] [address] Care Teams Environmental Health Technician Relationship Specialty Start Date End Date None, Provider PCP - General 04/04/21
--- OUTSIDE RECORDS SUMMARY | 2021-09-27 14:47 | XMS_ITS | Encounter Summary ---
:1960 Author Organization [facility] Address [address] [place] [address] Care Team Providers Name Role Phone Hanane Martinez MD Primary Care Provider [phone] Encounter Details Date Type Department Care Team Description 11/24/2019 Results Only [facility] [place] - Jose Alberto Story MD [place] [address] [place], [place] [id number] [place] [phone] (Wo rk) Social History Tobacco Use [...] Name Priority Date/Time Associated Diagnosis Comme nts COVID-19 TESTING Routine 11/24/2019 9:55 EDT Resu lts for this procedure are i n the results section. documented in this encounter Results COVID-19 TESTING (11/24/2019 9:55 EDT) Performing Lab [facility] Comment: [facility] Please indicate the Triage Tier2 Test performed or referred by The [address] [address] COVID-19 rt-PCR Not Detected Negative [facility] Result Comment: [facility] 2019-novel Coronavirus (2019-nCoV) not detected by the qRT-PCR assay. Consider testing for other respiratory viruses or re-collecting for 2019-nCoV testing. Note: Optimum timing for peak viral levels during infections caused by 2019-nCoV have not been determined. Collecti on of multiple specimens from the same patient may be necess jenaro to detect the virus. Limitations Positive results are indicative of active infection wi th SARS-CoV-2 but do not rule out bacterial infection or co-infection with other viruses. The agent detected ma y not be the definite cause of disease. In addition, detecti on of viral RNA may not indicate the presence of infectious virus or that SARS-CoV-2 is the causative agent for clinical symptoms. Negative results do not preclude SARS-CoV-2 infection and should not be used as the sole basis for patient manag ement decisions. Negative results must be combined with clin ical observations, patient history, and epidemiological information. False negative results may also occur if amplification inhibitors are present in the specimen o r if inadequate numbers of organisms are present in the specimen. Optimum specimen types and timing for peak v iral levels during infections caused by SARS-CoV-2 have not been fully determined. Collection of multiple specimens (ty pes and time points) from the same patient may be necessar y to detect the virus. The test was validated for use with upper respiratory specimens obtained via nasopharyngeal or oropharyngeal swabs in VTM, UTM, M4, M5, M6, saline, and MTM media. The performance of this test has not been established for other specimens. Specimens collected using other FDA recomme nded Specimen Collection Materials listed in the FDA COVID- 19 [employer] communication (June 09, 2019) are processed with the caveat that they were not all valid ated for use with this test and the result must be interpre lorraine in this context. Furthermore, a false negative results may occur if a specimen is improperly collected, transport ed or handled. If the virus mutates in the RT-PCR target region, SARS-CoV-2 may not be detected or may be detected less predictably. Inhibitors or other types of interference may produce a false negative result. An interference study evaluatin g the effect of common cold medications was not performed. This test is not FDA-cleared but its performance characteristics were established by our CLIA-certified , CAP-accredited, high complexity laboratory in [facility] with CLIA regulations, College of [place] Pathologist s (CAP) guidelines (Jun 02, 2019), and FDA guidance (May 14, 2019). This test is only for use under the Food and Drug Administration's Emergency Use Authorization. Specimen Narrative [facility] - 020 10:50 EDT PRE PROCEDURAL ??11/27 Performing Organization Address City/State/[facility] Code Phon e Number [facility] [address] [place] [address] documented in this encounter Visit Diagnoses Not on filedocumented in this encounter Care Teams Clinical Support Tech Relationship Specialty Start Date End Date Hanane Martinez MD PCP - General 02/09/19 04/03/21 documented as of this encounter
--- OUTSIDE RECORDS SUMMARY | 2021-09-27 14:47 | XMS_ITS | Encounter Summary ---
:1960 Author Organization [facility] Address [address] [place] [address] Care Team Providers Name Role Phone Hanane Martinez MD Primary Care Provider [phone] None, Provider Primary Care Provider Unavailable Encounter Details Date Type Department Care Team Description 11/24/2019 Lab Requisition [facility] Outr Resulting Lab, Pathology & Laboratory Provider General acute hospital [address], [place] [id number] Social History Tobacco Use Types Packs/Day Years [...] encounter Procedures Procedure Name Priority Date/Time Associated Comments Diagnosis DO NOT ORDER Today 11/24/2019 9:55 EDT Results for this STANDALONE - BROAD procedure are in COVID TEST the results section. COVID-19 TESTING Routine 11/24/2019 9:55 EDT Resu lts for this procedure are i n the results section. documented in this encounter Results DO NOT ORDER STANDALONE - BROAD COVID TEST (11/24/2019 9:55 EDT) COVID-19 rt-PCR NEGATIVE Negative [facility] Result Comment: LABORATORY 2019-novel Coronavirus (2019 -nCoV) not detected by the qRT-PCR assay. Consider testing for other respiratory viruses or re-collecting for 2019-nCoV testing. Note: Optimum timing for peak viral levels du ring infections caused by 20 -nCoV have not been determined. Collection of multiple specimens from the same patient may be necessary to detect the virus. Limitations Positive results are indicat nathan of active infection with SARS-CoV-2 but do not rule out bacterial infection or co-infection with other viruses. The agent detected may not be the definite cause of diseas e. In addition, detection of viral RNA may not indicate the presence of infectious virus or that SARS-CoV-2 is the causative agent for clinical symptoms. Negative results do not prec lude SARS-CoV-2 infection and should not be used as the sole basis for patient management decisions. Negative results must be combined with clinical observations, patient his tory, and epidemiological in formation. False negative results may also occur if amplification inhibitors are present in the specimen or if inadequate numbers of organisms are present in the specimen. Op timum specimen types and jaylin ing for peak viral levels during infections caused by SARS-CoV-2 have not been fully determined. Collection of multiple specimens (types and time points) from the same patient may be necessary to detect the virus. The test was validated for u with upper respiratory specimens obtained via nasopharyngeal or oropharyngeal swabs in VTM, UTM, M4, M5, M6, saline, and MTM media. The performance of this test has not be en established for other spe cimens. Specimens collected using other FDA recommended Specimen Collection Materials listed in the FDA COVID-19 [employer] communication (June 09, 2019) are pr ocessed with the caveat that they were not all validated for use with this test and the result must be interpreted in this context. Furthermore, a false negative results may occur if a specimen is improperly collected, transported or handled. If the virus mutates in the RT-PCR target region, SARS-CoV-2 may not be detected or may be detected less predictably. Inhibitors or other types of interference may produce a false negative result. An interference study evaluating the effect of common cold medications was not performed. This test is not FDA-cleared but its performance characteristics were established by our CLIA-certified, CAP-accredited, high complexity laboratory in accordance with CLIA regulations, College of [place] an Pathologists (CAP) guidel iván (Jun 02, 2019), and FDA guidance (May 14, 2019). This test is only for use un darrel the Food and Drug Administration's Emergency Use Authorization. Specimen Swab - Entire nasopharynx (body structur e) Performing Organization Address City/State/ZIP Code Phon e Number [facility] [place], [place] COVID-19 TESTING (11/24/2019 9:55 EDT) COVID-19 rt-PCR NEGATIVE Negative [facility] Result Comment: LABORATORY 2019-novel Coronavirus (2019 -nCoV) not detected by the qRT-PCR assay. Consider testing for other respiratory viruses or re-collecting for 2019-nCoV testing. Note: Optimum timing for peak viral levels du ring infections caused by 20 -nCoV have not been determined. Collection of multiple specimens from the same patient may be necessary to detect the virus. Limitations Positive results are indicat nathan of active infection with SARS-CoV-2 but do not rule out bacterial infection or co-infection with other viruses. The agent detected may not be the definite cause of diseas e. In addition, detection of viral RNA may not indicate the presence of infectious virus or that SARS-CoV-2 is the causative agent for clinical symptoms. Negative results do not prec lude SARS-CoV-2 infection and should not be used as the sole basis for patient management decisions. Negative results must be combined with clinical observations, patient his tory, and epidemiological in formation. False negative results may also occur if amplification inhibitors are present in the specimen or if inadequate numbers of organisms are present in the specimen. Op timum specimen types and jaylin ing for peak viral levels during infections caused by SARS-CoV-2 have not been fully determined. Collection of multiple specimens (types and time points) from the same patient may be necessary to detect the virus. The test was validated for u se with upper respiratory specimens obtained via nasopharyngeal or oropharyngeal swabs in VTM, UTM, M4, M5, M6, saline, and MTM media. The performance of this test has not be en established for other spe cimens. Specimens collected using other FDA recommended Specimen Collection Materials listed in the FDA COVID-19 [employer] communication (June 09, 2019) are pr ocessed with the caveat that they were not all validated for use with this test and the result must be interpreted in this context. Furthermore, a false negative results may occur if a specimen is improperly collected, transported or handled. If the virus mutates in the RT-PCR target region, SARS-CoV-2 may not be detected or may be detected less predictably. Inhibitors or other types of interference may produce a false negative result. An interference study evaluating the effect of common cold medications was not performed. This test is not FDA-cleared but its performance characteristics were established by our CLIA-certified, CAP-accredited, high complexity laboratory in accordance with CLIA regulations, College of [place] an Pathologists (CAP) guidel iván (Jun 02, 2019), and FDA guidance (May 14, 2019). This test is only for use un darrel the Food and Drug Administration's Emergency Use Authorization. Performing Lab [facility] LABORATORY SERVICES Specimen Swab Performing Organization Address City/State/[facility] Code Phon e Number [facility] [address] [place] [address] SERVICES [facility] [place], [place] documented in this encounter Visit Diagnoses Not on filedocumented in this encounter Care Teams Principal Automation Engineer Relationship Specialty Start Date End Date Hanane Martinez MD PCP - General 02/09/19 04/03/21 None, Provider PCP - General 04/04/21 documented as of this encounter
--- OUTSIDE RECORDS SUMMARY | 2021-09-27 14:47 | XMS_ITS | Encounter Summary ---
:1960 Author Organization [facility] Address [address] [place] [address] Care Team Providers Name Role Phone Hanane Martinez MD Primary Care Provider [phone] Reason for Visit Reason Onset Date Comments Results 08/02/2020 Encounter Details Date Type Department Care Team Description 08/02/2020 Telephone [facility] - [facility] Hanane Christian MD Results Family Medicine - [facility] [address] [place] [address] [address] [place] [address] [place], [place] [id number] [phone] Social History Tobacco Use Types Packs/Day Years Used Date Current Every Day Smoker 0.5 40 Smokeless Tobacco: Never Used Alcohol Use Standard Drinks/Week Comments Not Currently 0 (1 standard drink = 0.6 oz pure alcoho l) Sex Assigned at Date Recorded Not on file documented as of this encounter Miscellaneous Notes Telephone Encounter - Devika Heart RN - 08/02/2020 1607 EDT Relayed results to Jahaira. Plans to follow up with ortho. elephone Encounter - Hanane Martinez MD - 08/02/2020 1458 EDT xrays from [facility] show small joint effusion but no obvious fractures and no significant arthritis. Would follow up with ortho as planned. documented in this encounter Plan of Treatment Not on filedocumented as of this encounter Visit Diagnoses Not on filedocumented in this encounter Care Teams Distillery Worker General Relationship Specialty Start Date End Date Hnaane Martinez MD PCP - General 02/09/19 04/03/21 documented as of this encounter
--- OUTSIDE RECORDS SUMMARY | 2021-09-27 14:47 | XMS_ITS | Encounter Summary ---
:1960 Author Organization [facility] Address [address] [place] [address] Care Team Providers Name Role Phone Hanane Martinez MD Primary Care Provider [phone] Reason for Visit Reason Comments Follow-up f/u tumor excision 11/28/2019 Encounter Details Date Type Department Care Team Description 02/28/2020 [facility] ENT Negro Story, Granular cell tumor [address] [facility] (Primary Dx) [address] [place] [address] [address] [place] [address] Social History Tobacco Use Types [...] been in contact with No / Unsure 02/28/2020 10:08 EST someone who was confirmed or suspected to have Coronavirus / COVID-19? 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 SUBJECTIVE: Patient is doing well no problems. OBJECTIVE: Good wound healing. No evidence of recurrent disease. ASSESSMENT: Doing well status post partial glossectomy. PLAN: Follow-up with ENT as needed. documented in this encounter Plan of Treatment Not on filedocumented as of this encounter Visit Diagnoses Diagnosis Granular cell tumor - Primary Other benign neoplasm of connective and other soft tissue of unspecified site documented in this encounter Care Teams Automobile Tire Builder Relationship Specialty Start Date End Date Hanane Martinez MD PCP - General 02/09/19 04/03/21 documented as of this encounter
--- OUTSIDE RECORDS SUMMARY | 2021-09-27 14:47 | XMS_ITS | Encounter Summary ---
:1960 Author Organization [facility] Address [address] [place] [address] Care Team Providers Name Role Phone Hanane Martinez MD Primary Care Provider [phone] Encounter Details Date Type Department Care Team Description 03/25/2019 Results Only [facility] Magnolia Hawkins MD Lab - Main [place] [address] [facility] [address] [place] [address] [place] [address] [phone] Social History Tobacco Use Types Packs/Day Years Used Date Never Assessed Sex Assigned at Date Recorded Not on file documented as of this encounter Plan of Treatment Not on filedocumented as of this encounter Procedures Procedure Name Priority Date/Time Associated Diagnosis Comme nts CREATININE Routine 03/25/2019 6:00 EST Results for this procedure are i n the results section . documented in this encounter Results CREATININE (03/25/2019 6:00 EST) CREATININE 0.70 0.52 - 1.04 [facility] mg/dL [facility] eGFR >60 [facility] Comment: [facility] Chronic renal impairment is defined as GFR <60 Multiply result by 1.210 for patients . eGFR calculated using the IDMS-traceable MDRD Study Equation. ??(effective 01/16/2014) Specimen Narrative [facility] - 020 7:26 EST Does PT Have a Latex Allergy? NO Performing Organization Address City/State/ZIP Code Phon e Number [facility] [address] [place] [address] [facility] documented in this encounter Visit Diagnoses Not on filedocumented in this encounter Care Teams Riveting Machine Operator Relationship Specialty Start Date End Date Hanane Martinez MD PCP - General 02/09/19 04/03/21 documented as of this encounter
--- OUTSIDE RECORDS SUMMARY | 2021-09-27 14:47 | XMS_ITS | Encounter Summary ---
:1960 Author Organization [facility] Address [address] [place] [address] Care Team Providers Name Role Phone Hanane Martinez MD Primary Care Provider [phone] Reason for Visit Reason Onset Date Comments Other 03/28/2019 TCM Encounter Details Date Type Department Care Team Description 03/28/2019 Telephone [facility] - [facility] Hanane Christian MD Other (TCM) Family Medicine - [facility] [address] [place] [address] [place], [place] [id number] [phone] Social History Tobacco Use Types Packs/Day Years Used Date Never Assessed Sex Assigned at Date Recorded Not on file documented as of this encounter Miscellaneous Notes Telephone Encounter - Payton Saenz RN - 03/28/2019 4059 EST I spoke with Jahaira. She was doing well. Has a follow up appt with Dr. Jiang this so declined a f/u appt here. Reviewed meds and allergies (NKDA). States that she was told prior to discharge that she did not need to take any PO antibiotics as she had received enough antibiotics in the hospital. Taking Tylenol and hydrocodone/APAP PRN only (mostly just before home health does dressing changes). Max of two times per day. Aware that she should take less than 3000 mg of Tylenol daily from all sources. Aware of what to watch out for in terms of fever, incisional redness, etc. No further questions/concerns for our office at this point. elephone Encounter - HallKandi - 03/28/2019 0817 EST Admission date: 03/16/2019 Discharged from: [facility] Med/Surg Discharge date:03/25/2019 Discharge to: ? Diagnosis: Diverticulitis documented in this encounter Plan of Treatment Not on filedocumented as of this encounter Visit Diagnoses Not on filedocumented in this encounter Discontinued Medications Medication Sig Discontinue Reason Start Date End Date ciprofloxacin HCl Alternate therapy 03/14/201903/28 (CIPRO) 500 mg tablet metroNIDAZOLE (FLAGYL) Alternate therapy 03/14/2019 03/28/2019 500 mg tablet nicotine (NICODERM CQ) 1 PATCH transdermally Patient Stopped 201603/28/2019 21 mg/24 hr patch once a day Taking documented as of this encounter Historical Medications This list may reflect changes made after this encounter. Medication Sig Dispensed Refills Start Date End Date albuterol (PROAIR HFA) 2 puff(s) inhaled 0 2015 90 mcg/actuation USING SPACER 4 times a inhaler day X 1 WEEK THEN PRN docusate sodium Take 50 mg by mouth 0 09/23/2019 (COLACE) 50 mg capsule daily. metroNIDAZOLE (FLAGYL) 0 03/14/2019 500 mg tablet HYDROcodone-acetaminoph 0 03/26/2019 0 07/05/2019 en (NORCO) 10-325 mg tablet ciprofloxacin HCl 0 03/14/2019 020 (CIPRO) 500 mg tablet nicotine (NICODERM CQ) 1 PATCH transdermally 0 03/28/2019 21 mg/24 hr patch once a day added in this encounter Care Teams Advanced Registered Nurse Relationship Specialty Start Date End Date Hanane Martinez MD PCP - General 02/09/19 04/03/21 documented as of this encounter
--- OUTSIDE RECORDS SUMMARY | 2021-09-27 14:47 | XMS_ITS | Encounter Summary ---
:1960 Author Organization [facility] Address [address] [place] [address] Care Team Providers Name Role Phone Hanane Martinez MD Primary Care Provider [phone] Reason for Visit Reason Comments Discuss Surgery Encounter Details Date Type Department Care Team Description 11/17/2019 Office Visit [facility] ENT Negro Story, Tongue lesion (Primary Dx); - Papo BAUMAN Granular cell tumor [address] [facility] [address] [place] [address] [address] [place] [address] Social History Tobacco Use Types [...] Sign Reading Time Taken Comments Blood Pressure 143/89 11/17/2019 0935 EDT Pulse 90 11/17/2019 0935 EDT Temperature - - Respiratory Rate - - Oxygen Saturation - - Inhaled Oxygen Concentration - - Weight 88.9 kg (196 lb) 11/17/2019 0935 EDT Height - - Body Mass Index 38.28 10/26/2019 1010 EDT documented in this encounter Progress Notes Negro Story MD - 11/17/2019 0940 EDT CHIEF COMPLAINT: Tongue lesion. HISTORY OF PRESENT ILLNESS: This is a 59-year-old female with a 1-year history of a lesion on the dorsal surface of her tongue that began as a small pimple, enlarging over time. 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 She is scheduled for excision of the tongue lesion. PAST MEDICAL HISTORY: Current medications include Tylenol, albuterol, ibuprofen. She has no known drug allergies. Medical illness is significant for asthma, hypertension, diverticulitis. Prior surgeries include colon surgery. Family history is negative for anesthesia problems. Social history is positive for smoking. PHYSICAL EXAMINATION: General: Well-developed, well-nourished, alert, oriented, cooperative adult female in no acute distress. Normal voice. Vital signs: Height 60 inches, weight 196. See nursing notesfor vital signs. The face is normal without lesions. Facial strength is symmetric. Eye exam is normal. Ears: External ears are normal. Hearing is grossly intact. Nose: Nasal dorsum is midline, the airway is patent. Oral cavity shows the lips, floor of mouth and buccal mucosa are within normal limits. There is a 2 cm raised, firm lesion on the dorsal surface of left anterior tongue. Neck: No pathologic lymphadenopathy. Trachea is midline. Chest is clear to auscultation. Heart regular rate and rhythm. IMPRESSION: Granular cell tumor of the tongue. PLAN: Excision. Informed consent, the procedure along with the possible risks, complications, alternatives and aims were discussed in detail with the patient who understands these risks and agrees withthe surgery. Preoperative laboratory tests were ordered, the consent was signed. No prescriptions were written for the patient. documented in this encounter Plan of Treatment Not on filedocumented as of this encounter Procedures Procedure Name Priority Date/Time Associated Comments Diagnosis EKG 12-LEAD 11/17/2019 10:34 Results for this EDT procedure are i n the results section. COMPLETE BLOOD COUNT Routine 11/17/2019 10:26 Tongue lesion Re sults for this WITH DIFFERENTIAL EDT procedure are in (AUTO) the results section. COMPREHENSIVE Routine 11/17/2019 10:26 Tongue lesion Results f or this METABOLIC PANEL (CMP) EDT proced ure are in the results section. XR CHEST 2 VIEWS 11/17/2019 10:19 Results for this EDT procedure are i n the results section. documented in this encounter Results EKG 12-LEAD (11/17/2019 10:34 EDT) Specimen Narrative [facility] - 020 10:34 EDT ? [facility] ? Test Date: ?2019-11-17 10:34:12 Pat Name: ? BILL MONTGOMERY ? Department: ?Room: ? Gender: ? F ?Darklight Inspector: ?? TIB : ?1960 ? Requested By: Order Number: ?Reading : ?? Osvaldo Fraire MD ? Measurements Intervals ?[place] ? Rate: ? 68 ? P: ?58 NV: ? 122 ?QRS: ?37 QRSD: ? 78 ? T: ?75 QT: ? 434 ? QTc: ?461 ? Interpretive Statements Normal sinus rhythm Possible Left atrial enlargement Borderline ECG Compared to ECG 06/06/2017 16:15:51 No significant changes Electronically Signed On 11-17-2019 17:51: 29 EDT by Osvaldo Fraire MD [email or web address] Procedure Note Osvaldo Fraire MD - 11/17/2019 [facility] Test Date: 2019-11-17 10:34:12 Pat Name: BILL MONTGOMERY Department: Room: Gender: F Darklight Inspector: JUAN M : 1960 Requested By: Order Number: Reading MD: Osvaldo Fraire MD Measurements Intervals [place] Rate: 68 P: 58 NV: 122 QRS: 37 QRSD: 78 T: 75 QT: 434 QTc: 461 Interpretive Statements Normal sinus rhythm Possible Left atrial enlargement Borderline ECG Compared to ECG 06/06/2017 16:15:51 No significant changes Electronically Signed On 11-17-2019 17:51: 29 EDT by Osvaldo Fraire MD [email or web address] Performing Organization Address City/[facility]/ZIP Code Phon e Number [facility] [address] [place] [address] (ABNORMAL) COMPREHENSIVE METABOLIC PANEL (CMP) (11/17/2019 10:26 EDT) ALBUMIN - [facility] 3.8 3.4 - 4.9 [facility] g/dL [facility] ALKALINE 99 38 - 126 U/L [facility] PHOSPHATASE [facility] BILIRUBIN TOTAL 0.4 0.2 - 1.3 [facility] mg/dL [facility] BUN - [facility] 15 10 - 26 mg/dL [facility] CALCIUM - [facility] 9.7 8.5 - 10.5 [facility] mg/dL [facility] Chloride 106 96 - 110 [facility] mmol/L [facility] CO2 Total 27 22 - 32 mEq/L [facility] CREATININE 0.60 0.52 - 1.04 [facility] mg/dL [facility] eGFR >60 [facility] Comment: [facility] Chronic renal impairment is defined as GFR <60 Multiply result by 1.210 for patients . eGFR calculated using the IDMS-traceable MDRD Study Equation. ??(effective 01/16/2014) Anion Gap 7 0 - 18 [facility] GLUCOSE - [facility] 122 (H) 70 - 100 [facility] mg/dL [facility] Potassium 3.9 3.5 - 5.0 [facility] mEq/L [facility] Sodium 140 136 - 145 [facility] mEq/L [facility] TOTAL PROTEIN - 6.8 6.2 - 8.[address] [facility] gm/dL [facility] SGOT/AST - [facility] 21 14 - 36 U/L [facility] SGPT/ALT - [facility] 17 0 - 35 U/L [facility] Specimen Narrative [facility] - 020 11:21 EDT Does PT Have a Latex Allergy? NO Performing Organization Address City/State/ZIP Code Phon e Number [facility] [address] [place] [address] COMPLETE BLOOD COUNT WITH DIFFERENTIAL (AUTO) (11/17/2019 10:26 EDT) Pathologist Sig nature Gran # 6.8 2.2 - 8.85 [facility] 10e3/uL [facility] BASO # - [facility] 0.10 0.01 - 0.11 [facility] 10e/uL [facility] BASO % - [facility] 1 0 - 2 % [facility] EOS # - [facility] 0.39 0.03 - 0.61 [facility] 10e3/ul [facility] EOS % - [facility] 4 0 - 5 % [facility] GRAN % - [facility] 60.7 40 - 80 % [facility] HEMATOCRIT - [facility] 44.2 34.9 - 44.4 % [facility] HEMOGLOBIN - [facility] 14.4 11.6 - 15.2 g/dl [facility] IG# - [facility] 0.06 0 - 0.7 10e3/uL [facility] IG% - [facility] 0.5 0 - 0.9 % [facility] LYMPH # - [facility] 3.2 1.09 - 3.3 [facility] 10e3/ul [facility] LYMPH% - [facility] 28.8 20 - 40 % [facility] MEAN CORPUSCULAR HGB - 30.8 26.7 - 33.3 pg [facility] MEAN CORPUSCULAR HGB 32.6 32.1 - 35.9 g/dL [facility] MEAN CELL VOLUME - 94.4 81 - 98 fl [facility] MONO # - [facility] 0.6 0.1 - 0.8 [facility] 10e3/uL [facility] MONO% - [facility] 5.6 0 - 12 % [facility] PLATELET COUNT 301 141 - 377 [facility] 10e3/ul [facility] RED BLOOD COUNT - [facility] 4.68 3.86 - 5.04 [facility] ME D 10e3/ul [facility] RED CELL DISTRI WIDTH 12.6 <14.7 % [facility] WHITE BLOOD COUNT - 11.1 4.0 - 12.4 [facility] 10e3/ul [facility] Specimen Narrative [facility] - 020 11:00 EDT Does PT Have a Latex Allergy? NO Performing Organization Address City/State/ZIP Code Phon e Number [facility] [address] [place] [address] XR CHEST 2 VIEWS (11/17/2019 10:19 EDT) Specimen Narrative [facility] - 11/17/2019 10:19 EDT ? EXAM: RADIOLOGY/CHEST PA ?? LAT ?EX. D/ (1013) ? CLINICAL INFORMATION: ? F17.200 CURRENT SMOKER ? Z01.811 PRE-OP EXAM ? INDICATION: F17.200 CURRENT SMOKE R, Z01.811 PRE-OP EXAM ??PREOP CXR, ? CURRENT SMOKER ? TECHNIQUE: ??Chest, PA and latera l views ? COMPARISON: 03/19/2019. ? FINDINGS: The lungs are clear. Th e cardiomediastinal silhouette and ? pulmonary vessels are ??within no rmal limits. No pleural effusion or ? pneumothorax is seen. ? IMPRESSION: ? 1. No acute cardiopulmonary disea se detected. ? REPORT SIGNED IN OTHER VENDOR SYSTEM 11/17/2019 ?Reported B y: Alberto Gallo MD ? CC: Negro Story ? Transcribed Date/Time: 11/17/2019 (1019) ? Biomedical Engineering Aide: ? Printed Date/Time: 11/17/2019 (01 01) ? PAGE 1 ? Anny d Report ? Procedure Note Alberto Gallo MD - 11/17/2019 EXAM: RADIOLOGY/CHEST PA LAT EX. D/T: 0 11/17/2019 (1013) CLINICAL INFORMATION: F17.200 CURRENT SMOKER Z01.811 PRE-OP EXAM INDICATION: F17.200 CURRENT SMOKER, Z01 .811 PRE-OP EXAM PREOP CXR, CURRENT SMOKER TECHNIQUE: Chest, PA and lateral views COMPARISON: 03/19/2019. FINDINGS: The lungs are clear. The card iomediastinal silhouette and pulmonary vessels are within normal richardson its. No pleural effusion or pneumothorax is seen. IMPRESSION: 1. No acute cardiopulmonary disease det ected. REPORT SIGNED IN OTHER VENDOR SYSTEM 11/17/2019 Reported By: Alberto Gallo MD CC: Negro Story MD Transcribed Date/Time: 11/17/2019 (1019 ) Biomedical Engineering Aide: Printed Date/Time: 11/17/2019 (8164) PAGE 1 Signed Report Performing Organization Address City/State/ZIP Code Phon e Number [facility]IOLOG[facility] documented in this encounter Visit Diagnoses Diagnosis Tongue lesion - Primary Other specified conditions of the tongue Granular cell tumor Other benign neoplasm of connective and other soft tissue of unspecified site documented in this encounter Care Teams Equal Opportunity Counselor Relationship Specialty Start Date End Date Hanane Martinez MD PCP - General 02/09/19 04/03/21 documented as of this encounter
--- OUTSIDE RECORDS SUMMARY | 2021-09-27 14:47 | XMS_ITS | Encounter Summary ---
:1960 Author Organization [facility] Address [address] [place] [address] Care Team Providers Name Role Phone Hanane Martinez MD Primary Care Provider [phone] Encounter Details Date Type Department Care Team Description 03/23/2019 Results Only [facility] Magnolia Hawkins MD Lab - Main [place] [address] [facility] [address] [place] [address] [place] [address] [phone] Social History Tobacco Use Types Packs/Day Years Used Date Never Assessed Sex Assigned at Date Recorded Not on file documented as of this encounter Plan of Treatment Not on filedocumented as of this encounter Procedures Procedure Name Priority Date/Time Associated Diagnosis Comme nts CREATININE Routine 03/23/2019 6:10 EST Results for this procedure are i n the results section . documented in this encounter Results CREATININE (03/23/2019 6:10 EST) CREATININE 0.72 0.52 - 1.04 [facility] mg/dL [facility] eGFR >[address] [facility] Comment: [facility] Chronic renal impairment is defined as GFR <60 Multiply result by 1.210 for patients . eGFR calculated using the IDMS-traceable MDRD Study Equation. ??(effective 01/16/2014) Specimen Narrative [facility] - 020 7:14 EST Does PT Have a Latex Allergy? NO Performing Organization Address City/State/ZIP Code Phon e Number [facility] [address] [place] [address] [facility] documented in this encounter Visit Diagnoses Not on filedocumented in this encounter Care Teams Student Records Coordinator Relationship Specialty Start Date End Date Hanane Martinez MD PCP - General 02/09/19 04/03/21 documented as of this encounter
--- OUTSIDE RECORDS SUMMARY | 2021-09-27 14:47 | XMS_ITS | Encounter Summary ---
:1960 Author Organization [facility] Address [address] [place] [address] Care Team Providers Name Role Phone Hanane Martinez MD Primary Care Provider [phone] Reason for Visit (Routine/Next Available) - Receiving Office to Obtain Authorization Specialty Diagnoses / Procedures Referred By Contact Refer red To Contact Procedures Unknown, Provider, CT OUTSIDE IMAGES BODY Phone: Referral ID Status Reason Start Expiration Visits Visits Date Date Requested Authorized [id number] Receiving Office 1 to Obtain 1 Authorization Encounter Details Date Type Department Care Team Description 02/05/2021 Hospital Encounter [facility] Secondary Reads [place] Social History Tobacco Use Types Packs/Day Years Used Date Current Every Day Smoker 0.5 40 Smokeless Tobacco: Never Used Alcohol Use Standard Drinks/Week Comments Not Currently 0 (1 standard drink = 0.6 oz pure alcoho l) Sex Assigned at Date Recorded Not on file documented as of this encounter Medications at Time of Discharge Medication Sig Dispensed Refills Start Date End Date albuterol (PROAIR HFA) 90 2 puff(s) inhaled 0 05/2015 mcg/actuation inhaler USING SPACER 4 times a day X 1 WEEK THEN PRN nicotine (NICODERM CQ) 21 Place 1 Patch onto 0 mg/24 hr patch the skin daily. nicotine polacrilex Take 2 mg by mouth 0 04/27/19 21 (NICORETTE) 2 mg gum once as needed. polyethylene glycol Take 17 g by mouth 0 04/27/19 21 (GLYCOLAX) 17 gram/dose daily as needed. powder SENEXON-S 8.6-50 mg per Take 2 Tabs by mouth 0 tablet 2 times daily as needed. documented as of this encounter Discharge Disposition Disposition Code Departure Means Destination Home or Self Care documented in this encounter Plan of Treatment Not on filedocumented as of this encounter Procedures Procedure Name Priority Date/Time Associated Diagnosis Comme nts CT OUTSIDE IMAGES Routine 02/05/2021 13:53 Result s for this BODY EST procedure are i n the results section. documented in this encounter Results CT OUTSIDE IMAGES BODY (02/05/2021 13:53 EST) Specimen Narrative 02/05/2021 13:53 EST This is a non-reportable exam. documented in this encounter Visit Diagnoses Not on filedocumented in this encounter Care Teams Theatre Director Relationship Specialty Start Date End Date Hanane Martinez MD PCP - General 02/09/19 04/03/21 documented as of this encounter
--- OUTSIDE RECORDS SUMMARY | 2021-09-27 14:47 | XMS_ITS | Encounter Summary ---
:1960 Author Organization [facility] Address [address] [place] [address] Care Team Providers Name Role Phone Hanane Martinez MD Primary Care Provider [phone] Reason for Visit Reason Comments Other conversation re: brother hav ing COVID-19 testing Encounter Details Date Type Department Care Team Description 07/05/2019 Telemedicine [facility] - Xavi Reeder, Exp osure to [facility] Family Medicine - EMILIE disease (Primary Dx) [address] [address] [place], [place] [phone] Social History Tobacco Use Types Packs/Day Years Used Date Current Every Day Smoker 0.5 40 Smokeless Tobacco: Never Used Alcohol Use Standard Drinks/Week Comments Not Currently 0 (1 standard drink = 0.6 oz pure alcoho l) Sex Assigned at Date Recorded Not on file documented as of this encounter Last Filed Vital Signs Vital Sign Reading Time Taken Comments Blood Pressure - - Pulse - - Temperature - - Respiratory Rate - - Oxygen Saturation - - Inhaled Oxygen Concentration - - Weight 87.5 kg (193 lb) 07/05/2019 1157 EDT Height 149.9 cm (4' 11) 07/05/2019 1157 EDT Body Mass Index 38.98 07/05/2019 1157 EDT documented in this encounter Progress Notes Xavi Reeder PA-C - 07/05/2019 1145 EDT [facility] Telephone Visit Verbal consent: The concept of ???Telemedicine?? has been described to the patient. Patient has been informed of the anticipated benefits and possible risks. Patient understands the information provided regarding telemedicine, has had the opportunity to ask questions about this information, and all questions have been answered to patient???s satisfaction. Patient consents for the use of telemedicine in his/her medical care and authorizes the transmission of any relevant medical information to providers and their staff involved in patient???s medical or mental health care. Verbal consent obtained by myself or auxiliary staff: yes. Subjective: Chief Complaint(s): Other (conversation re: brother having COVID-19 testing) HPI: This patient is a 58-year-old female with 96-[id number]-mqvv history of smoking, questionable asthma who presents today due to exposure to viral illness via her brother. She has been staying with her brothersince she had an abdominal surgery and is scheduled to have colostomy reversal procedure within the next 4 weeks. Her brother recently came down with fevers, body aches and was tested for coronavirus 2019, which was negative. Patient herself does not currently have any symptoms but is wondering what she should be looking out for in regards to symptoms. She specifically denies any fevers, body aches, sinus congestion, sore throat, swollen glands, GI symptoms, cough, shortness of breath. I have reviewed patient's tobacco history: reports that she has been smoking. She has a 20.00 pack-year smoking history. She has never used smokeless tobacco. I have reviewed current problem list and current medications. ROS: ROS See HPI Objective: Examination: Home Vitals: Ht (!) 149.9 cm (59) Wt 87.5 kg (193 lb) BMI 38.98 kg/m?? Pertinent exam findings: speaking in full sentences, no audible wheeze and mood and affect appropriate Data reviewed with patient: Reviewed and/or ordered active problem list, medication list, allergies,family history, social history, health maintenance, notes from last encounter tests Assessment & Plan: 1. Exposure to viral disease Reviewed signs/symptoms of coronavirus 2019 that are most common, patient will call if she develops any of the symptoms or has any other questions or concerns moving forward. Given that she is asymptomatic and that her brother was negative with testing, not going to test her at this point just yet. Patient initiated phone contact with the office: yes. Patient is an established patient (parent, guardian) yes. E/M provided within previous 7 days for same medical assessment: no Anticipate E/M service within 24hrs or next available urgent appointment no. This visit was conducted by telephone. I spent a total of 11 minutes in discussion with the patient as described in the progress note. documented in this encounter Plan of Treatment Not on filedocumented as of this encounter Visit Diagnoses Diagnosis Exposure to viral disease - Primary Contact with or exposure to other viral diseases documented in this encounter Discontinued Medications Medication Sig Discontinue Reason Start Date End Date HYDROcodone-acetaminophen (NORCO) 10-325 Therapy compl eted 03/26/2019 07/05/2019 mg tablet documented as of this encounter Historical Medications This list may reflect changes made after this encounter. Medication Sig Dispensed Refills Start Date End Date polyethylene glycol 3350 Take 17 g by mouth 0 09/23/2019 (MIRALAX) 17 gram packet daily. nystatin (MYCOSTATIN) APPLY 2 TO 3 TIMES A 0 03/1710/26/2019 powder DAY NEEDED WITH DRESSING VAC CHANGES added in this encounter Care Teams Architect Intern Relationship Specialty Start Date End Date Hanane Martinez MD PCP - General 02/09/19 04/03/21 documented as of this encounter
--- OUTSIDE RECORDS SUMMARY | 2021-09-27 14:47 | XMS_ITS | Encounter Summary ---
:1960 Author Organization [facility] Address [address] [place] [address] Care Team Providers Name Role Phone Hanane Martinez MD Primary Care Provider [phone] Encounter Details Date Type Department Care Team Description 11/17/2019 Travel Social History Tobacco Use Types Packs/Day [...] on filedocumented in this encounter Care Teams Electrolysis Engineer Relationship Specialty Start Date End Date Hanane Martinez MD PCP - General 02/09/19 04/03/21 documented as of this encounter
--- OUTSIDE RECORDS SUMMARY | 2021-09-27 14:47 | XMS_ITS | Encounter Summary ---
:1960 Author Organization [facility] Address [address] [place] [address] Care Team Providers Name Role Phone Hanane Martienz MD Primary Care Provider [phone] Encounter Details Date Type Department Care Team Description 03/24/2019 Results Only [facility] Magnolia Hawkins MD Lab - Main [place] [address] [facility] [address] [place] [address] [place] [address] [phone] Social History Tobacco Use Types Packs/Day Years Used Date Never Assessed Sex Assigned at Date Recorded Not on file documented as of this encounter Plan of Treatment Not on filedocumented as of this encounter Procedures Procedure Name Priority Date/Time Associated Diagnosis Comme nts CREATININE Routine 03/24/2019 6:15 EST Results for this procedure are i n the results section . documented in this encounter Results CREATININE (03/24/2019 6:15 EST) CREATININE 0.69 0.52 - 1.04 [facility] mg/dL [facility] eGFR >60 [facility] Comment: [facility] Chronic renal impairment is defined as GFR <60 Multiply result by 1.210 for patients . eGFR calculated using the IDMS-traceable MDRD Study Equation. ??(effective 01/16/2014) Specimen Narrative [facility] - 020 7:29 EST Does PT Have a Latex Allergy? NO Performing Organization Address City/State/ZIP Code Phon e Number [facility] [address] [place] [address] [facility] documented in this encounter Visit Diagnoses Not on filedocumented in this encounter Care Teams Cryolite Recovery Operator Relationship Specialty Start Date End Date Hanane Martinez MD PCP - General 02/09/19 04/03/21 documented as of this encounter
--- OUTSIDE RECORDS SUMMARY | 2021-09-27 14:47 | XMS_ITS | Encounter Summary ---
:1960 Author Organization [facility] Address [address] [place] [address] Care Team Providers Name Role Phone Hanane Martinez MD Primary Care Provider [phone] Encounter Details Date Type Department Care Team Description 03/22/2019 Results Only [facility] Magnolia Hawkins MD Lab - [address] [place] [address] [place] [address] [phone] Social History Tobacco Use Types Packs/Day Years Used Date Never Assessed Sex Assigned at Date Recorded Not on file documented as of this encounter Plan of Treatment Not on filedocumented as of this encounter Procedures Procedure Name Priority Date/Time Associated Comments Diagnosis COMPLETE BLOOD COUNT Routine 03/22/2019 6:40 Resu lts for this WITH DIFFERENTIAL EST procedure are in (AUTO) the results section. BASIC METABOLIC PANEL Routine 03/22/2019 6:40 Res ults for this (BMP) EST procedure are i n the results section. documented in this encounter Results (ABNORMAL) BASIC METABOLIC PANEL (BMP) (03/22/2019 6:40 EST) BUN - [facility] 13 10 - 26 mg/dL [facility] CALCIUM - [facility] 7.9 (L) 8.5 - 10.5 [facility] mg/dL [facility] Chloride 106 96 - 110 [facility] mmol/L [facility] CO2 Total 30 22 - 32 mEq/L [facility] CREATININE 0.72 0.52 - 1.04 [facility] mg/dL [facility] eGFR >60 [facility] Comment: [facility] Chronic renal impairment is defined as GFR <60 Multiply result by 1.210 for patients . eGFR calculated using the IDMS-traceable MDRD Study Equation. ??(effective 01/16/2014) Anion Gap 3 0 - 18 [facility] GLUCOSE - [facility] 80 70 - 100 mg/dL [facility] Potassium 3.7 3.5 - 5.0 [facility] mEq/L [facility] Sodium 139 136 - 145 [facility] mEq/L [facility] Specimen Narrative [facility] - 020 7:47 EST Does PT Have a Latex Allergy? NO Performing Organization Address City/State/ZIP Code Phon e Number [facility] [address] LAB (ABNORMAL) COMPLETE BLOOD COUNT WITH DIFFERENTIAL (AUTO) (03/22/2019 6:40 EST) Pathologist Sig nature Gran # 9.5 (H) 2.2 - 8.85 [facility] 10e3/uL [facility] BASO # - [facility] 0.06 0.01 - 0.11 [facility] 10e/uL [facility] BASO % - [facility] 0 0 - 2 % [facility] EOS # - [facility] 0.34 0.03 - 0.61 [facility] 10e3/ul [facility] EOS % - [facility] 3 0 - 5 % [facility] GRAN % - [facility] 70.8 40 - 80 % [facility] HEMATOCRIT - [facility] 32.5 (L) 34.9 - 44.4 % [facility] HEMOGLOBIN - [facility] 10.2 (L) 11.6 - 15.2 [facility] g/dl [facility] IG# - CV 0.27 0 - 0.7 10e3/uL [facility] IG% - [facility] 2.0 (H) 0 - 0.9 % [facility] LYMPH # - [facility] 2.5 1.09 - 3.3 [facility] 10e3/ul [facility] LYMPH% - [facility] 18.9 (L) 20 - 40 % [facility] MEAN CORPUSCULAR HGB 29.7 26.7 - 33.3 pg [facility] ME D - [facility] LAB MEAN CORPUSCULAR HGB 31.4 (L) 32.1 - 35.9 [facility] CONC - [facility] g/dL [facility]ENTER [facility] MEAN CELL VOLUME - 94.8 81 - 98 fl [facility] MONO # - [facility] 0.7 0.1 - 0.8 [facility] 10e3/uL [facility] MONO% - [facility] 5.4 0 - 12 % [facility] PLATELET COUNT 388 (H) 141 - [address] [facility] RED BLOOD COUNT - 3.43 (L) 3.86 - 5.04 [facility] 10e3/ul [facility] RED CELL DISTRI WIDTH 14.1 <14.7 % [facility] WHITE BLOOD COUNT - 13.4 (H) 4.0 - 12.4 [place] [id number] [facility] Specimen Performing Organization Address City/State/ZIP Code Phon e Number [facility] [address] LAB documented in this encounter Visit Diagnoses Not on filedocumented in this encounter Care Teams Mowing Machine Operator Relationship Specialty Start Date End Date Hanane Martinez MD PCP - General 02/09/19 04/03/21 documented as of this encounter
--- OUTSIDE RECORDS SUMMARY | 2021-09-27 14:47 | XMS_ITS | Encounter Summary ---
:1960 Author Organization [facility] Address [address] [place] [address] Care Team Providers Name Role Phone Hanane Martinez MD Primary Care Provider [phone] Encounter Details Date Type Department Care Team Description 08/06/2020 Abstract [facility] - [facility] Cht Panel Coord [facility], Family Medicine - De ifeanyi Alatorre [facility] [place] [address] [place] [address] Social History Tobacco Use Types Packs/Day Years [...] Name Priority Date/Time Associated Diagnosis Comme nts COLONOSCOPY PROCEDURE Routine 08/18/2019 Result s for this procedure are i n the results section . documented in this encounter Results COLONOSCOPY PROCEDURE (08/18/2019) Pathologist Sig nature Colonoscopy Colonoscopy, External Comment: Diverticulosis, exam otherwise normal from end-colostomy to cecum and the remnany Lucy's pouch, f/u to discuss colostomy reversal documented in this encounter Visit Diagnoses Not on filedocumented in this encounter Care Teams Bracelet Former Relationship Specialty Start Date End Date Hanane Martinez MD PCP - General 02/09/19 04/03/21 documented as of this encounter
--- OUTSIDE RECORDS SUMMARY | 2021-09-27 14:47 | XMS_ITS | Encounter Summary ---
:1960 Author Organization [facility] Address [address] [place] [address] Care Team Providers Name Role Phone Hanane Martinez MD Primary Care Provider [phone] Reason for Visit Reason Onset Date Comments Diagnostic Imaging Report 04/14/2019 Encounter Details Date Type Department Care Team Description 04/14/2019 Telephone [facility] - Payton Saenz Dia gnostic Imaging [facility] Family Medicine - RN Report [place] [address] [place] [address] [phone] Social History Tobacco Use Types Packs/Day Years Used Date Never Assessed Sex Assigned at Date Recorded Not on file documented as of this encounter Miscellaneous Notes Telephone Encounter - Hanane Martinez MD - 04/15/2019 1128 EST noted Telephone Encounter - Clarissa Drew - 04/15/[address] Martinez would like for Jahaira to come in for appt to discuss further and evaluate. Jahaira currently in [place] where she has family that can assist her and where she is receiving [facility] Jahaira will call back to schedule appt when her sister is available as she currently relies onher sister for transportation. elephone Encounter - Payton Saenz RN - 04/14/[address] Martinez's request, called the patient. Per CT report from 03/17/19, there was a low density 4X 5 cm left adnexal cyst structure for which workup with a pelvic US or MRI is recommended. Spoke with Jahaira. She stated that about 2 weeks ago she started having cramping and pelvic/vaginal pain (onearea/side not worse than the other) along with a brown, mucus-filled vaginal discharge. Dr. Hodge was called at that point, and it was her belief, per Jahaira, that a cyst might have burst and as long as she wasn't having other symptoms like a fever, nausea, etc, that nothing further needed to be done. Jahaira reports that Dr. Jiang was also notified, and he agreed. Of note, last night was the first n ight where Jahaira did not have any vaginal discharge, and she hasn't had any today. If you believe that additional imaging/testing is needed, however, she agrees to it. Please advise. documented in this encounter Plan of Treatment Not on filedocumented as of this encounter Visit Diagnoses Not on filedocumented in this encounter Care Teams Oncology Social Work Relationship Specialty Start Date End Date Hanane Martinez MD PCP - General 02/09/19 04/03/21 documented as of this encounter
--- OUTSIDE RECORDS SUMMARY | 2021-09-27 14:47 | XMS_ITS | Encounter Summary ---
:1960 Author Organization [facility] Address [address] [place] [address] Care Team Providers Name Role Phone Hanane Martinez MD Primary Care Provider [phone] Reason for Referral PT/OT/ST (Routine) - Closed Specialty Diagnoses / Procedures Referred By Contact Refer red To Contact Diagnoses Post-operative [facility] Hanane Martinez MD [address] [place] [phone] Referral ID Status Reason Start Date Expiration Date Visits Requ ested Visits Authorized [id number] Closed 09/23/2019 1 1 Question Answer Reason for Request: Will call home health servic es already in place to request OT eval for equipment recommend ations Reason for Visit Reason Comments Follow-up hospital discharge Encounter Details Date Type Department Care Team Description 09/23/[address] [facility] - Hanane Martinez rinary urgency (Primary Dx); [facility] Family Medicine MD Vanessa Post-operative [facility] [place] [address] [place] [address] [address] [place], [place] [phone] (Wo rk) Social History Tobacco Use [...] Sign Reading Time Taken Comments Blood Pressure 124/66 09/23/2019922 EDT Pulse 88 09/23/2019922 EDT Temperature 36.9 ??C (98.5 ??F) 09/23/2019922 EDT Respiratory Rate - - Oxygen Saturation - - Inhaled Oxygen Concentration - - Weight 84.8 kg (187 lb) 09/23/2019922 EDT Height - - Body Mass Index 37.77 07/05/2019 1157 EDT documented in this encounter Ordered Prescriptions Prescription Sig Dispensed Refills Start Date End Date ondansetron (ZOFRAN) 4 mg Take 1 Tab by mouth 30 Tab 0 0 09/23/2019 10/26/2019 tablet every 8 hours as needed for Nausea. documented in this encounter Progress Notes Hanane Martinez MD - 09/23/2019 09 EDT [facility] Primary Care Subjective: Chief Complaint(s): Follow-up (hospital discharge ) HPI[place] [facility] [place] for Lucy's reversal with colostomy take down, need to end anastomosis, had an intraoperative indwelling J-J ureteral stent placed. Course complicated by hypertensive emergency with Blurred vision, started on amlodipine. No further incidences, BP has been well controlled at home, tolerating amlodipine. Has ongoing urinary frequency that is unchanged from hospital discharge and tells me she was cautioned by Urology that this would be the case. No dysuria. No fevers or chills. Some nausea since the procedure that is also unchanged. No vomiting. Hoping to get some nausea medication. Also having trouble with the wedge she is using (slides to the bottom) and the belt she was given. Hoping to get some equipment recommendations. We discussed a [facility] home health referral. I have reviewed patient's tobacco history: reports that she has been smoking. She has a 20.00 pack-year smoking history. She has never used smokeless tobacco. I have reviewed current problem list and current medications. ROS: see HPI Objective: Examination: Vitals: BP 124/66 Pulse 88 Temp 36.9 ??C (98.5 ??F) Wt 84.8 kg (187 lb) BMI 37.77 kg/m?? Body mass index is 37.77 kg/m??. A+O, NAD Anicteric RRR CTAB and non-labored abd soft, midlines surgical scar with stables in place, well approximated, no erythema or drainage. No extremity edema Data reviewed with patient (past results): [facility] [place] and hospital course Assessment & Plan: 1. Post-operative state OT referral for equipment recommendations. - AMB CONS/FOLLOW UP OCCUPATIONAL THERAPY; Future Urine dip obtained in error before visit completed and history/symptoms reviewed. Notable for blood,to be expected in setting ureteral stent placement. Follow up with urology as planned. Ondansetron sent for nausea. Return in about 3 months (around 12/24/2019) for hypertension, sooner prn. documented in this encounter Plan of Treatment Scheduled Referrals Name Type Priority Associated Order Schedule Diagnoses AMB CONS/FOLLOW UP Outpatient Referral Routine Post-operative Expected: OCCUPATIONAL THERAPY state 020 (Approximate) documented as of this encounter Procedures Procedure Name Priority Date/Time Associated Diagnosis Comme nts POCT URINE Routine 09/23/2019 9:38 EDT Urinary urgency Resul ts for this DIPSTICK, VISUAL procedure a re in READ the results section. documented in this encounter Results (ABNORMAL) POCT URINE DIPSTICK, VISUAL READ (09/23/2019 9:38 EDT) Pathologist Sig nature Color, UA [place] POINT OF CARE [facility] Clarity, UA Clear [facility] Glucose, UA Negative . mg/dL [facility] Bilirubin, UA Negative . POINT [facility]ARE [facility] Ketones, UA Negative . mg/dL [facility] Spec Grav, UA 1.015 . [facility] Blood, UA Large . [facility] pH, UA 5.0 4.6 - 8.0 [facility] Protein, UA 3+ (A) . mg/dL [facility] Urobilinogen, UA 0.2 0.2 - 1.0 E.U./dL [facility] Nitrite, UA Negative . POINT [facility] CARE [facility] Leuk Esterase Moderate . POINT OF CARE [facility] Comment POINT OF CARE [facility] Specimen Urine - Urine, Clean Catch Performing Organization Address City/State/ZIP Code Phon e Number [facility] POINT OF CARE POINT OF CARE [facility] documented in this encounter Visit Diagnoses Diagnosis Urinary urgency - Primary Urgency of urination Post-operative state Other postprocedural status documented in this encounter Discontinued Medications Medication Sig Discontinue Reason Start Date End Date clindamycin (CLEOCIN) every 6 hours. Therapy completed 10/06/2017 09/23/2019 300 mg capsule docusate sodium (COLACE) Take 100 mg by mouth Therapy completed 09/23/2019 100 mg capsule daily. docusate sodium (COLACE) Take 50 mg by mouth Therapy completed 09/23/2019 50 mg capsule daily. metroNIDAZOLE (FLAGYL) TAKE 4 TABLETS Therapy completed 09/06/2019 09/23/2019 500 mg tablet ORALLY AT 7PM. AND 11PM. NIGHT BEFORE SURGERY neomycin 500 mg tablet TAKE 4 TABLETS Therapy completed 09/06/2019 09/23/2019 ORALLY AT 7PM. AND 11PM. NIGHT BEFORE SURGERY polyethylene glycol 3350 Take 17 g by mouth Therapy completed 09/23/2019 (MIRALAX) 17 gram packet daily. polyethylene MIX AND DRINK Therapy completed 08/06/20192019 glycol-electrolytes DIRECTED (NULYTELY) 420 gram solution ondansetron (ZOFRAN) 8 TAKE 1 TABLET ORALLY Dose adjustment 020 09/23/2019 mg tablet AT 1PM. THE AFTERNOON BEFORE SURGERY THEN EVERY 8 HOURS documented as of this encounter Historical Medications This list may reflect changes made after this encounter. Medication Sig Dispensed Refills Start Date End Date ibuprofen (MOTRIN) 600 mg Take 600 mg by mouth 0 09/19/2019 05/08/2020 tablet every 6 hours as needed. acetaminophen (TYLENOL) Take 500 mg by mouth 0 05/08/2020 500 mg tablet every 6 hours as needed. clindamycin (CLEOCIN) 300 every 6 hours. 0 201709/23/2019 mg capsule metroNIDAZOLE (FLAGYL) TAKE 4 TABLETS 0 0 09/23/2019 500 mg tablet ORALLY AT 7PM. AND 11PM. NIGHT BEFORE SURGERY docusate sodium (COLACE) Take 100 mg by mouth 0 09/23/2019 100 mg capsule daily. polyethylene MIX AND DRINK 0 08/06/20192019 glycol-electrolytes DIRECTED (NULYTELY) 420 gram solution ondansetron (ZOFRAN) 8 mg TAKE 1 TABLET ORALLY 0 09/06/2019 09/23/2019 tablet AT 1PM. THE AFTERNOON BEFORE SURGERY THEN EVERY 8 HOURS neomycin 500 mg tablet TAKE 4 TABLETS 0 0 09/23/2019 ORALLY AT 7PM. AND 11PM. NIGHT BEFORE SURGERY amLODIPine (NORVASC) 10 Take 10 mg by mouth 0 09/201910/26/2019 mg tablet daily. enoxaparin (LOVENOX) 40 Inject 40 mg into 0 09/1810/13/2019 mg/0.4 mL injection the skin daily. added in this encounter Care Teams Animal Husbandry Teacher Relationship Specialty Start Date End Date Hanane Martinez MD PCP - General 02/09/19 04/03/21 documented as of this encounter
[2021-09-27 14:48] VITALS: BP 127/75; PULSE 99; RESP 16; TEMP 36.8; O2SAT 92
--- OUTSIDE RECORDS SUMMARY | 2021-09-27 14:48 | XMS_ITS | Encounter Summary ---
:1960 Author Organization [facility] Address [address] [place] [address] Care Team Providers Name Role Phone Hanane Martinez MD Primary Care Provider [phone] Encounter Details Date Type Department Care Team Description 03/19/2019 Results Only [facility] Magnolia Hawkins MD Lab - [address] [address] [place], [place] [id number] [phone] Social History Tobacco Use Types Packs/Day Years Used Date Never Assessed Sex Assigned at Date Recorded Not on file documented as of this encounter Plan of Treatment Not on filedocumented as of this encounter Procedures Procedure Name Priority Date/Time Associated Comments Diagnosis COMPLETE BLOOD COUNT Routine 03/19/2019 13:00 Res ults for this WITH DIFFERENTIAL EST procedure are in (AUTO) the results section. TROPONIN I Routine 03/19/2019 13:00 Results for this EST procedure are i n the results section. TYPE AND SCREEN Routine 03/19/2019 13:00 Results for this EST procedure are i n the results section. CK Routine 03/19/2019 13:00 Results for this EST procedure are i n the results section. COMPREHENSIVE Routine 03/19/2019 13:00 Results fo r this METABOLIC PANEL (CMP) EST proced ure are in the results section. POCT GLUCOSE, Routine 03/19/2019 12:36 Results fo r this INTERFACED EST procedure are i n the results section. COMPLETE BLOOD COUNT Routine 03/19/2019 5:55 Resu lts for this WITH DIFFERENTIAL EST procedure are in (AUTO) the results section. CREATININE Routine 03/19/2019 5:55 Results for this EST procedure are i n the results section. ELECTROLYTES Routine 03/19/2019 5:55 Results for this EST procedure are i n the results section. SURGICAL PATHOLOGY Routine 03/19/2019 Results f or this procedure are i n the results section. documented in this encounter Results TYPE AND SCREEN (03/19/2019 13:00 EST) [facility] BLOOD TYPE [facility] O Positive [facility] Antibody Screen NEGATIVE [facility] Specimen Expires: 04/09/2019 @2359 [facility] Specimen Performing Organization Address [facility] Phon e Number [facility] [address] [place], [place] [id number] [place] [address] LAB TROPONIN I (03/19/2019 13:00 EST) [facility] Troponin I <0.034 0.000 [facility] (ng/mL) Comment: 0.034 ng/mL [facility] Interpretation comments: ??Cutoff for a positive troponin result is set at the 99th percentile of the upper reference limit. ??Elevated troponin must always be interpreted in the context of the clinical presentation. ?Serial troponin testing 3-6 hr from baseline is fav ored over relying on a single troponin level. ?? The results of this assay can be falsely lowered d ue to the consumption of Biotin. Specimen Performing Organization Address [facility] Phon e Number [facility] [address] [place], [place] [id number] [place] [address] LAB CK (03/19/2019 13:00 EST) [facility] CPK [facility] 44 30 - 135 U/L [facility] AB Specimen Performing Organization Address City/[facility]/ZIP [facility] Phon [place] Number [facility] [address] [place] [address] [facility] (ABNORMAL) COMPREHENSIVE METABOLIC PANEL (CMP) (03/19/2019 13:00 EST) [facility] ALBUMIN [facility] 3.0 (L) 3.4 - 4.9 [facility] g/dL [facility] ALKALINE 92 38 - 126 U/L [facility] PHOSPHATASE [facility] BILIRUBIN TOTAL 0.6 0.2 - 1.3 [facility] mg/dL [facility] BUN - [facility] 7 (L) 10 - 26 mg/dL [facility] CALCIUM - [facility] 8.3 (L) 8.5 - 10.5 [facility] mg/dL [facility] Chloride 103 96 - 110 [facility] mmol/L [facility] CO2 Total 25 22 - 32 mEq/L [facility] CREATININE 0.51 (L) 0.52 - 1.04 [facility] mg/dL [facility] eGFR >60 [facility] Comment: MED CENTER LAB Chronic renal impairment is defined as GFR <60 Multiply result by 1.210 for patients . eGFR calculated using the IDMS-traceable MDRD Study Equation. ??(effective 01/16/2014) Anion Gap 8 0 - 18 [facility] GLUCOSE - [facility] 127 (H) 70 - 100 [facility] mg/dL [facility] Potassium 3.9 3.5 - 5.0 [facility] mEq/L [facility] Sodium 136 136 - 145 [facility] mEq/L [facility] TOTAL PROTEIN - 6.2 6.2 - 8.2 [facility] gm/dL [facility] SGOT/AST - [facility] 29 14 - 36 U/L [facility] SGPT/ALT - [facility] 33 9 - 52 U/L [facility] Specimen Performing Organization Address City/State/[facility] Code Phon e Number [facility] [address] LAB (ABNORMAL) COMPLETE BLOOD COUNT WITH DIFFERENTIAL (AUTO) (03/19/2019 13:00 EST) Pathologist Sig nature Gran # 12.5 (H) 2.2 - 8.85 [facility] 10e3/uL CENTER LAB BASO # - [facility] 0.10 0.01 - 0.11 [facility] 10e/uL [facility]ENTER [facility] BASO % - [facility] 1 0 - 2 % [facility] EOS # - [facility] 0.17 0.03 - 0.61 [facility] 10e3/ul CENTER LAB EOS % - [facility] 1 0 - 5 % [facility] GRAN % - [facility] 71.7 40 - 80 % [facility] HEMATOCRIT - [facility] 38.9 34.9 - 44.4 % [facility] HEMOGLOBIN - [facility] 12.5 11.6 - 15.2 [facility] g/dl [facility] IG# - [facility] 0.46 0 - 0.7 10e3/uL [facility] IG% - [facility] 2.6 (H) 0 - 0.9 % [facility] LYMPH # - [facility] 2.8 1.09 - 3.3 [facility] 10e3/ul [facility] LYMPH% - [facility] 16.2 (L) 20 - 40 % [facility] MEAN CORPUSCULAR HGB 29.8 26.7 - 33.3 pg [facility] ME D [facility]ENTER LAB MEAN CORPUSCULAR HGB 32.1 32.1 - 35.9 [facility] CONC [facility] g/dL [facility] MEAN CELL VOLUME - 92.8 81 - [address] [facility] LAB MONO # - [facility] 1.4 (H) 0.1 - 0.8 [facility] 10e3/uL [facility] MONO% [facility] 7.9 0 - 12 % [facility] PLATELET COUNT 377 141 - 377 [facility] 10e3/ul [facility] RED BLOOD COUNT - 4.19 3.86 - 5.04 [facility] 10e3/ul [facility] RED CELL DISTRI WIDTH 13.7 <14.7 % [facility] WHITE BLOOD COUNT - 17.4 (H) 4.0 - 12.4 [facility] 10e3/ul [facility] Specimen Performing Organization Address City/[facility]/ZIP Code Phon e Number [facility] [address] LAB (ABNORMAL) POCT GLUCOSE, GLUCOMETER (03/19/2019 12:36 EST) Pathologist Sig nature Glucose, POC 131 (H) 70 - 100 mg/dL [facility] Specimen Performing Organization Address City/[facility]/ZIP Code Phon e Number [facility] [address] LAB (ABNORMAL) ELECTROLYTES (03/19/2019 5:55 EST) Pathologist Sig nature Chloride 101 96 - 110 mmol/L [facility] CENT R LAB CO2 Total 27 22 - 32 mEq/L [facility] Anion Gap 6 0 - 18 [facility] Potassium 3.8 3.5 - 5.0 mEq/L [facility] Sodium 134 (L) 136 - 145 mEq/L [facility] Specimen Narrative [facility] - 020 7:34 EST Does PT Have a Latex Allergy? NO Performing Organization Address City/[facility]/ZIP Code Phon e Number [facility] [address] LAB CREATININE (03/19/2019 5:55 EST) CREATININE 0.53 0.52 - 1.04 [facility] mg/dL [facility] eGFR >60 [facility] Comment: [facility]ENTER LAB Chronic renal impairment is defined as GFR <60 Multiply result by 1.210 for patients . eGFR calculated using the IDMS-traceable MDRD Study Equation. ??(effective 01/16/2014) Specimen Narrative [facility] - 7:34 EST Does PT Have a Latex Allergy? NO Performing Organization Address City/[facility]/ZIP Code Phon e Number [facility] [address] LAB (ABNORMAL) COMPLETE BLOOD COUNT WITH DIFFERENTIAL (AUTO) (03/19/2019 5:55 EST) Pathologist Sig nature Gran # 12.5 (H) 2.2 - 8.85 [facility] 10e3/uL [facility]ENTER LAB BASO # - [facility] 0.08 0.01 - 0.11 [facility] 10e/uL [facility] BASO % - [facility] 1 0 - 2 % [facility] EOS # - [facility] 0.16 0.03 - 0.61 [facility] 10e3/ul [facility] EOS % - [facility] 1 0 - 5 % [facility] GRAN % - [facility] 72.8 40 - 80 % [facility] HEMATOCRIT - [facility] 35.6 34.9 - 44.4 % [facility] HEMOGLOBIN - [facility] 11.6 11.6 - 15.2 [facility] g/dl [facility] IG# - [facility] 0.42 0 - 0.7 10e3/uL [facility] IG% - [facility] 2.5 (H) 0 - 0.9 % [facility] LYMPH # - [facility] 2.8 1.09 - 3.3 [facility] 10e3/ul [facility] LYMPH% - [facility] 16.2 (L) 20 - 40 % [facility] MEAN CORPUSCULAR HGB 29.7 26.7 - 33.3 pg [facility] ME D - [facility] CENTER LAB MEAN CORPUSCULAR HGB 32.6 32.1 - 35.9 [facility] CONC - [facility] g/dL CENTER LAB MEAN CELL VOLUME - 91.3 81 - [address] [facility] LAB MONO # - [facility] 1.2 (H) 0.1 - 0.8 [facility] 10e3/uL [facility] MONO% - [facility] 7.1 0 - 12 % [facility] PLATELET COUNT 347 141 - 377 [facility] 10e3/ul [facility] RED BLOOD COUNT - 3.90 3.86 - 5.04 [facility] 10e3/ul [facility] RED CELL DISTRI WIDTH 13.7 <14.7 % [facility] WHITE BLOOD COUNT - 17.1 (H) 4.0 - 12.4 [facility] 10e3/ul [facility] Specimen Performing Organization Address City/State/[facility] Code Phon e Number [facility] [address] [place], [place] [id number] [place] [address] LAB SURGICAL PATHOLOGY (03/19/2019) Specimen Narrative [facility] - 020 10:34 EST Name: BILL MONTGOMERY ? : [birth year] ?Age/Sex: 58/F ?Unit#: [id number] ? Loc: 2S ?Status: ADM IN ? Reg Date: 03/16/19 ? Pt.Phone Number : ? Specimen: [id number] ? [facility] ATUS: SOUT ?Spec Date:03/19/19 ? Physician Copies: ?Magnolia Hodge ?? Tissues: A ?? Colon, resection other claudia n tumor (SIGMOID) ?Hanane Martinez ? B ?? Skin cyst (PELVIC CYST ) ? CPT: 73665 ?? Units: ??1 ? 66465 ? 1 ?FINAL DIAGNOSIS ? A. ??SIGMOID COLON, LAPROSCOPIC R ESECTION; ? - Acute diverticulitis with focal perforation, background diverticular disease ? - Peritonitis and focal fat necro sis ? - No histologic evidence of dyspl libby or malignancy ? - Resection margins viable, one m argin involved by peritonitis ? B. ??PELVIC CYST, EXCISION; ? - Ovary with serous cystadenoma, 5.5 cm (greatest dimension) ? GROSS DESCRIPTION ? A. ??Received in formalin in a co ntainer labeled Bill Montgomery S and sigmoid ? colon is an unoriented, previuos ly opened, 12.2 x 3.4 cm segment of sigmoid ? colon with attached epiploic fat. ??Serial sectioning reveals multiple ? diverticula with a focal area of hemorrhage that appears to penetrate into the ? adrián-sigmoidal fat. ??Representat nathan sections are submitted. ?A1-2: ? Resection mar gins, ?A3-4: ? Representativ e sections of diverticula, ?A5: ? Focus of per iappendiceal hemorrhage, ?A6: ? Additional s ection of diverticula, ?A7: ? Random secti on of normal-appearing mucosa. ? B. ??Received in formalin in a co ntainer labeled Bill Montgomery S and pelvic ? cyst is a 46-gram, 5.5 x 4.2 x 3 .8 cm, burdick cyst filled with serous-type fluid. ? The white capsular surface is smo oth and glistening with no apparent masses or ? lesions. The internal cyst wall i s smooth and glistening, except for a solitary ? 0.7 cm (greatest dimension) clear walled internal cyst. ??Supervisor Of Research ? sections are submitted in sincere es B1 and B2. ?MS Patient: BILL MONTGOMERY ? #[id number] ? (Continued) Specimen: [id number] ? Re ceived: 03/20/19-1256 ?(Continued) ?? PREOP DX/CLINICAL HISTORY ?DIVERTICULITIS Signed ____(signature on file)____ Jori Jain 03/22/19 ?? By the signature above, the attending ph ysician certifies that he/she has personally conducted a gross and/or microscopic exa mination of the described specimens and rendered or confirmed the above diagnosi s. Test Performed by [facility], [address] [place] [address] Nursing Home Admissions Director: Lorene Gayle MD PHD Performing Organization Address City/State/ZIP Code Phon e Number [facility] [address] [place] [address] LAB documented in this encounter Visit Diagnoses Not on filedocumented in this encounter Care Teams Transplant Nurse Relationship Specialty Start Date End Date Hanane Martinez MD PCP - General 02/09/19 04/03/21 documented as of this encounter
--- OUTSIDE RECORDS SUMMARY | 2021-09-27 14:48 | XMS_ITS | Encounter Summary ---
:1960 Author Organization [facility] Address [address] [place] [address] Care Team Providers Name Role Phone Abhinav Agarwal MD Primary Care Provider Unavailable Encounter Details Date Type Department Care Team Description 05/06/2015 Historical Results [facility] - [place] Only [facility] [place], [address] [place], [place] [address] 2 [facility] [phone] [place] [address] Social History Tobacco Use Types Packs/Day Years Used Date Never Assessed Sex Assigned at Date Recorded Not on file documented as of this encounter Plan of Treatment Not on filedocumented as of this encounter Procedures Procedure Name Priority Date/Time Associated Diagnosis Comme nts MR KNEE WO CONTRAST 05/06/2015 12:21 Resu lts for this LEFT EST procedure are i n the results section. documented in this encounter Results MR KNEE WO CONTRAST LEFT (05/06/2015 12:21 EST) Specimen Narrative RADIOLOGY - 05/06/2015 12:37 EST ? EXAM: MAGNETIC RESONANCE IMAGING/KNEE LT ??EX. D/ (1135) ? CLINICAL INFORMATION: ? W00.9XXD ? L KNEE INJURY S/P FELL ON ICE ? R/O ACP TEAR OR CAPSUL TEAR ? KNEE LT W/O CONTRAST ? Signs and Symptoms/Comments: W00. 9XXD: L KNEE INJURY S/P FELL ON ICE. ? RULE OUT ACL OR CAPSULE TEAR. ? Comparison: Left knee radiographs on 03/27/2015. ? Technique: Noncontrast MR of the left knee was performed with the ? following sequences: Axial T2 fat sat, sagittal proton density, ? sagittal proton density fat sat, coronal proton density, coronal ? proton density fat-sat. ? FINDINGS: ? Medial Meniscus: Subtle altered i ntrasubstance signal in the ? posterior horn of the medial meni scus likely reflects mucoid ? degeneration as no definite fluid signal is identified extending to ? the articular surface to suggest a tear (sagittal proton density ? fat-sat image 9, coronal proton d ensity fat-sat image 15). The medial ? meniscus is otherwise unremarkabl e. The meniscal root ligaments are ? intact. ? Lateral Meniscus: The lateral men iscus and meniscal root ligaments ? are intact. ? Medial Supporting Structures: Tra ce fluid adjacent to the proximal ? aspect of the superficial MCL may be reactive or represent sequela of ? low-grade strain. No MCL tear is identified. ? Lateral Supporting Structures: Th e iliotibial band, FCL, biceps ? femoris and popliteus tendons are intact. ? Cruciate Ligaments: There is a co mplete tear of the anterior cruciate ? ligament (sagittal images 13). Th e posterior cruciate ligament is ? intact. ? Extensor Mechanism: The extensor mechanism of the knee is intact. ? Cartilage: Mild superficial chond ral thinning and irregularity are ? present in the tibiofemoral and p atellofemoral compartments. ? Bone Marrow: Mild bone marrow con tusions are present in the lateral ? femoral condyle and lateral tibia l plateau. ? Joint Space: A small suprapatella r joint effusion is present with ? mild reactive synovitis. Tiny lob ulated fluid signal structures ? between the posterior joint reces s and the popliteus tendon may ? reflect tiny ganglion cysts or re dundant synovium (sagittal image 16, ? axial image 8). No definite intra -articular bodies are identified. ? PAGE 1 ? Anny d Report ? (CONTINUED) ? Supporting Soft Tissues: Mild lorne ctive subcutaneous edema is present ? about the knee. ? IMPRESSION: ? 1. Complete ACL tear. ? 2. Probable focal mucoid degenera tion in the posterior horn of the ? medial meniscus. No definite meni scal tear identified. ? 3. Mild bone marrow contusions in the lateral femoral condyle and ? tibial plateau. ? 4. Mild tricompartmental degenera tive changes. ? 5. Small suprapatellar joint effu nicolasa. ? REPORT SIGNED IN OTHER VENDOR SYSTEM 05/06/2015 ?Reported B y: Noel Silva MD ? CC: ? Transcribed Date/Time: 05/06/2015 (1237) ? Edge Gluer: ? Printed Date/Time: 08/26/2018 (13 46) ? PAGE 2 ? Anny d Report ? Procedure Note Noel Silva MD - 01/19/2019 EXAM: MAGNETIC RESONANCE IMAGING/KNEE L T EX. D/ (1135) CLINICAL INFORMATION: W00.9XXD L KNEE INJURY S/P FELL ON ICE R/O ACP TEAR OR CAPSUL TEAR KNEE LT W/O CONTRAST Signs and Symptoms/Comments: W00.9XXD: L KNEE INJURY S/P FELL ON ICE. RULE OUT ACL OR CAPSULE TEAR. Comparison: Left knee radiographs on 02/2016. Technique: Noncontrast MR of the left k nee was performed with the following sequences: Axial T2 fat sat, sagittal proton density, sagittal proton density fat sat, arambula l proton density, coronal proton density fat-sat. FINDINGS: Medial Meniscus: Subtle altered intrasu bstance signal in the posterior horn of the medial meniscus l ikely reflects mucoid degeneration as no definite fluid signa l is identified extending to the articular surface to suggest a tear (sagittal proton density fat-sat image 9, coronal proton density fat-sat image 15). The medial meniscus is otherwise unremarkable. The meniscal root ligaments are intact. Lateral Meniscus: The lateral meniscus and meniscal root ligaments are intact. Medial Supporting Structures: Trace flu id adjacent to the proximal aspect of the superficial MCL may be re active or represent sequela of low-grade strain. No MCL tear is identi fied. Lateral Supporting Structures: The ilio tibial band, FCL, biceps femoris and popliteus tendons are intac t. Cruciate Ligaments: There is a complete tear of the anterior cruciate ligament (sagittal images 13). The post erior cruciate ligament is intact. Extensor Mechanism: The extensor mechan ism of the knee is intact. Cartilage: Mild superficial chondral th inning and irregularity are present in the tibiofemoral and patello femoral compartments. Bone Marrow: Mild bone marrow contusion s are present in the lateral femoral condyle and lateral tibial plat eau. Joint Space: A small suprapatellar join t effusion is present with mild reactive synovitis. Tiny lobulated fluid signal structures between the posterior joint recess and the popliteus tendon may reflect tiny ganglion cysts or redundan t synovium (sagittal image 16, axial image 8). No definite intra-artic ular bodies are identified. PAGE 1 Signed Report (CONTINUED) Supporting Soft Tissues: Mild reactive subcutaneous edema is present about the knee. IMPRESSION: 1. Complete ACL tear. 2. Probable focal mucoid degeneration i n the posterior horn of the medial meniscus. No definite meniscal t ear identified. 3. Mild bone marrow contusions in the l ateral femoral condyle and tibial plateau. 4. Mild tricompartmental degenerative c hanges. 5. Small suprapatellar joint effusion. REPORT SIGNED IN OTHER VENDOR SYSTEM 05/06/2015 Reported By: Noel Silva MD CC: Transcribed Date/Time: 05/06/2015 (2984 ) Edge Gluer: Printed Date/Time: 08/26/2018 (2123) PAGE 2 Signed Report Performing Organization Address City/State/ZIP Code Phon e Number RADIOLOGY documented in this encounter Visit Diagnoses Not on filedocumented in this encounter Care Teams Hogshead Weigher Relationship Specialty Start Date End Date Abhinav Agarwal MD PCP - General 01/20/15 02/08/19 documented as of this encounter
--- OUTSIDE RECORDS SUMMARY | 2021-09-27 14:48 | XMS_ITS | Encounter Summary ---
:1960 Author Organization [facility] Address [address] [place] [address] Care Team Providers Name Role Phone Unavailable Primary Care Provider Unavailable Encounter Details Date Type Department Care Team Description 02/19/2009 Orders Only [facility] Kyle Pepe MD Laboratory Services - [address] [place] [id number] [address] [facility] [place] [address] [phone] Social History Tobacco Use Types Packs/Day Years Used Date Never Assessed Sex Assigned at Date Recorded Not on file documented as of this encounter Plan of Treatment Not on filedocumented as of this encounter Procedures Procedure Name Priority Date/Time Associated Comments Diagnosis HPV DETECTION, HIGH Routine 02/19/2009 16:58 Resu lts for this RISK TYPES EST procedure are i n the results section. CYTOPATHOLOGY Routine 02/19/2009 0:00 Results for this EST procedure are i n the results section. documented in this encounter Results HUMAN PAPILLOMA VIRUS DNA TEST (02/19/2009 16:58 EST) Specimen Description Cervix, ThinPrep [facility] vial Result Negative for HPV [facility] types 16, 18, 31, 33, 35, 39, 45, 51, 52, 56, 58, 59, and 68. Report Status Final [facility] 03/07/2009 Specimen Performing Organization Address City/State/ZIP Code Phon e Number [facility] [address] [place] [address] SERVICES [facility] [address] [place] [address] CYTOPATHOLOGY (02/19/2009 0:00 EST) Pathology Report: CYTOPATHOLOGY REPORT ? TOBIAS ALL EN ? LAB Reports generated via PraXcell interface contain original data; ? however they are lacking the format of the original report. ? Caution should be taken when reading/interpreting unformatted reports. ? Name: ? CHIKIS, BILL ? Accession #: ? [id number] ? : ? 1960 (Age: 48) ??F ?Collect Date: ? 02/19/2009 ? Location: ? [facility] ? Receive Date: ? 02/22/2009 ? Provider: ?KYLE YORRA MD ? Copy to: ? Specimen/Source: ? Pap Test, Vagina, ThinPrep Imaging System with manual ?? evaluation ? Last Menstrual Period: ? Treatment History: ? Hysterectomy: 2000 ? Other: ? HPVDX - HPV testing requeste d regardless of diagnosis on current ThinPrep Pap ?? test. ? SPECIMEN ADEQUACY ? Satisfactory for Eval uation ? - assessment of transformati on zone component not applicable ( e.g. atrophy, ? vaginal sample, hysterectomy ) ? GENERAL CATEGORIZATION ? Negative for Intraepi thelial Lesion or Malignancy ? INTERPRETATION ? Trichomonas vaginalis present. ? Document reviewed and electr onically signed by: ? Jean Claude Aldridge, CT( CP) ? Report Date: ??12/14/ 2009 11:05 ? End of Report ? Specimen Performing Organization Address City/State/ZIP Code Phon e Number [facility] [address] [place] [address] SERVICES [facility] [address] [place] [address] documented in this encounter Visit Diagnoses Not on filedocumented in this encounter
--- OUTSIDE RECORDS SUMMARY | 2021-09-27 14:48 | XMS_ITS | Encounter Summary ---
:1960 Author Organization [facility] Address [address] [place] [address] Care Team Providers Name Role Phone Hanane Martinez MD Primary Care Provider [phone] Encounter Details Date Type Department Care Team Description 03/21/2019 Results Only [facility] system Magnolia Hawkins MD Lab - [address] [place] [address] [place] [address] [phone] Social History Tobacco Use Types Packs/Day Years Used Date Never Assessed Sex Assigned at Date Recorded Not on file documented as of this encounter Plan of Treatment Not on filedocumented as of this encounter Procedures Procedure Name Priority Date/Time Associated Comments Diagnosis COMPLETE BLOOD COUNT Routine 03/21/2019 5:30 Resu lts for this WITH DIFFERENTIAL EST procedure are in (AUTO) the results section. BASIC METABOLIC PANEL Routine 03/21/2019 5:30 Res ults for this (BMP) EST procedure are i n the results section. documented in this encounter Results (ABNORMAL) BASIC METABOLIC PANEL (BMP) (03/21/2019 5:30 EST) BUN - [facility] 10 10 - 26 mg/dL [facility] CALCIUM - [facility] 7.8 (L) 8.5 - 10.5 [facility] mg/dL [facility] Chloride 103 96 - 110 [facility] mmol/L [facility] CO2 Total 29 22 - 32 mEq/L [facility] CREATININE 0.86 0.52 - 1.04 [facility] mg/dL [facility] eGFR >60 [facility] Comment: [facility] Chronic renal impairment is defined as GFR <60 Multiply result by 1.210 for patients . eGFR calculated using the IDMS-traceable MDRD Study Equation. ??(effective 01/16/2014) Anion Gap 5 0 - 18 [facility] GLUCOSE - [facility] 125 (H) 70 - 100 mg/dL [facility] Potassium 4.0 3.5 - 5.0 [facility] mEq/L [facility] Sodium 137 136 - 145 [facility] mEq/L [facility] Specimen Narrative [facility] - 020 7:35 EST Does PT Have a Latex Allergy? NO Performing Organization Address City/State/ZIP Code Phon e Number [facility] [address] LAB (ABNORMAL) COMPLETE BLOOD COUNT WITH DIFFERENTIAL (AUTO) (03/21/2019 5:30 EST) Pathologist Sig nature Gran # 11.6 (H) 2.2 - 8.85 [facility] 10e3/uL [facility] BASO # - [facility] 0.06 0.01 - 0.11 [facility] 10e/uL [facility] BASO % - [facility] 0 0 - 2 % [facility] EOS # - [facility] 0.23 0.03 - 0.61 [facility] 10e3/ul [facility] EOS % - [facility] 2 0 - 5 % [facility] GRAN % - [facility] 74.2 40 - 80 % [facility] HEMATOCRIT - [facility] 32.5 (L) 34.9 - 44.4 % [facility] HEMOGLOBIN - [facility] 10.1 (L) 11.6 - 15.2 [facility] g/dl [facility] IG# - [facility] 0.27 0 - 0.7 10e3/uL [facility] IG% - [facility] 1.7 (H) 0 - 0.9 % [facility] LYMPH # - [facility] 2.5 1.09 - 3.3 [facility] 10e3/ul [facility] LYMPH% - [facility] 16.0 (L) 20 - 40 % [facility] MEAN CORPUSCULAR HGB 29.7 26.7 - 33.3 pg [facility] D - [facility] CENTER LAB MEAN CORPUSCULAR HGB 31.1 (L) 32.1 - 35.9 [facility] CONC - [facility] g/dL CENTER LAB MEAN CELL VOLUME - 95.6 81 - 98 fl [facility] MONO # - [facility] 1.0 (H) 0.1 - 0.8 [facility] 10e3/uL [facility] MONO% - [facility] 6.2 0 - 12 % [facility] PLATELET COUNT 372 141 - 377 [place] [id number] [facility] RED BLOOD COUNT - 3.40 (L) 3.86 - 5.04 [facility] 10e3/ul [facility] RED CELL DISTRI WIDTH 13.9 <14.7 % [facility] WHITE BLOOD COUNT - 15.6 (H) 4.0 - 12.4 [place] [id number] [facility] Specimen Performing Organization Address City/State/ZIP Code Phon e Number [facility] [address] [place], [place] [id number] [place] [address] LAB documented in this encounter Visit Diagnoses Not on filedocumented in this encounter Care Teams Financial Agent Relationship Specialty Start Date End Date Hanane Martinez MD PCP - General 02/09/19 04/03/21 documented as of this encounter
--- OUTSIDE RECORDS SUMMARY | 2021-09-27 14:48 | XMS_ITS | Encounter Summary ---
:[address] [facility] Address [address] [place] [address] Care Team Providers Name Role Phone Hanane Martinez MD Primary Care Provider Reason for Referral (Routine) - Receiving Office to Obtain Authorization Specialty Diagnoses / Procedures Referred By Contact Refer red To Contact Procedures Unknown, MD Dipti CT OUTSIDE IMAGES BODY Phone: Referral ID Status Reason Start Expiration Visits Visits Date Date Requested Authorized [id number] Receiving Office 03/17/201903 16 to Obtain Authorization (Routine) - Receiving Office to Obtain Authorization Specialty Diagnoses / Procedures Referred By Contact Refer red To Contact Procedures Lowell, MD Dipti XR OUTSIDE IMAGES CHEST Phone: Referral ID Status Reason Start Expiration Visits Visits Date Date Requested Authorized [id number] Receiving Office 03/17/201903 16 to Obtain Authorization Reason for Visit (Routine) - Receiving Office to Obtain Authorization Specialty Diagnoses / Procedures Referred By Contact Refer red To Contact Procedures Unknown, MD Dipti CT OUTSIDE IMAGES BODY Phone: Referral ID Status Reason Start Expiration Visits Visits Date Date Requested Authorized [id number] Receiving Office 03/16/201903 16 to Obtain Authorization Encounter Details Date Type Department Care Team Description 03/17/2019 Hospital Encounter [facility] Radiology - Main [place] [address] [place], [place] [address] Social History Tobacco Use Types Packs/Day Years Used Date Never Assessed Sex Assigned at Date Recorded Not on file documented as of this encounter Medications at Time of Discharge Medication Sig Dispensed Refills Start Date End Date albuterol (PROAIR HFA) 2 puff(s) inhaled 0 2015 90 mcg/actuation USING SPACER 4 times a inhaler day X 1 WEEK THEN PRN ciprofloxacin HCl 0 03/14/2019 020 (CIPRO) 500 mg tablet clindamycin (CLEOCIN) every 6 hours. 0 10/06/2017 09/23/2019 300 mg capsule metroNIDAZOLE (FLAGYL) 0 03/14/2019 500 mg tablet nicotine (NICODERM CQ) 1 PATCH transdermally 0 03/28/2019 21 mg/24 hr patch once a day documented as of this encounter Discharge Disposition Disposition Code Departure Means Destination Home or Self Care documented in this encounter Plan of Treatment Not on filedocumented as of this encounter Procedures Procedure Name Priority Date/Time Associated Diagnosis Comme nts CT OUTSIDE IMAGES Routine 03/17/2019 12:20 Result s for this BODY EST procedure are i n the results section. XR OUTSIDE IMAGES Routine 03/17/2019 12:19 Result s for this CHEST EST procedure are i n the results section. CT OUTSIDE IMAGES Routine 03/16/2019 21:38 Result s for this BODY EST procedure are i n the results section. documented in this encounter Results CT OUTSIDE IMAGES BODY (03/17/2019 12:20 EST) Specimen Narrative [facility] - 03/17/2019 12:20 EST This result has an attachment that is no t available. This is a non-reportable exam. Procedure Note Reva Barrera - 03/17/2019 This is a non-reportable exam. Performing Organization Address City/State/ZIP Code Phon e Number [facility] XR OUTSIDE IMAGES CHEST (03/17/2019 12:19 EST) Specimen Narrative [facility] - 03/17/2019 12:19 EST This result has an attachment that is no t available. This is a non-reportable exam. Procedure Note Reva Barrera - 03/17/2019 This is a non-reportable exam. Performing Organization Address City/[facility] Code Phon e Number [facility] CT OUTSIDE IMAGES BODY (03/16/2019 21:38 EST) Specimen Narrative [facility] - 03/16/2019 21:38 EST This result has an attachment that is no t available. This is a non-reportable exam. Procedure Note Moises Freeman - 03/16/2019 This is a non-reportable exam. Performing Organization Address City/State/ZIP Code Phon e Number [facility] documented in this encounter Visit Diagnoses Not on filedocumented in this encounter Care Teams Audiology Technician Relationship Specialty Start Date End Date Hanane Martinez MD PCP - General 02/09/19 04/03/21 documented as of this encounter
--- OUTSIDE RECORDS SUMMARY | 2021-09-27 14:48 | XMS_ITS | Encounter Summary ---
:[address] [facility] Address [address] [place] [address] Care Team Providers Name Role Phone Hanane Martinez MD Primary Care Provider [phone] Encounter Details Date Type Department Care Team Description 03/16/2019 Historical Results [facility] - Kendrick Zapata, Rosa [facility] Lab - Main [facility] DO [address] [place] [id number] [place] [address] [phone] Social History Tobacco Use Types Packs/Day Years Used Date Never Assessed Sex Assigned at Date Recorded Not on file documented as of this encounter Plan of Treatment Not on filedocumented as of this encounter Procedures Procedure Name Priority Date/Time Associated Diagnosis Comme nts BACTERIAL CULTURE, Routine 03/16/2019 20:48 Resul ts for this URINE EST procedure are i n the results section. documented in this encounter Results BACTERIAL CULTURE, URINE (03/16/2019 20:48 EST) USUAL UROGENITAL [facility] - [facility] CitrateConcentration <10,000 CFU/ML [facility] Specimen Performing Organization Address City/State/ZIP Code Phon e Number [facility] [address] [place], [place] [id number] [place] [address] LAB documented in this encounter Visit Diagnoses Not on filedocumented in this encounter Care Teams Rotary Slicing Machine Operator Relationship Specialty Start Date End Date Hanane Martinez MD PCP - General 02/09/19 04/03/21 documented as of this encounter
--- OUTSIDE RECORDS SUMMARY | 2021-09-27 14:48 | XMS_ITS | Encounter Summary ---
:1960 Author Organization [facility] Address [address] [place] [address] Care Team Providers Name Role Phone Abhinav Agarwal MD Primary Care Provider Unavailable Encounter Details Date Type Department Care Team Description 03/27/2015 Hospital Encounter [facility] - Unknown, Provi darrel, [facility] [phone] [place] [address] (Work) [place] [address] Social History Tobacco Use Types Packs/Day Years Used Date Never Assessed Sex Assigned at Date Recorded Not on file documented as of this encounter Discharge Disposition Disposition Code Departure Means Destination Home or Self Prison documented in this encounter Plan of Treatment Not on filedocumented as of this encounter Visit Diagnoses Not on filedocumented in this encounter Care Teams Assembler Product Relationship Specialty Start Date End Date Abhinav Agarwal MD PCP - General 01/20/15 02/08/19 documented as of this encounter
--- OUTSIDE RECORDS SUMMARY | 2021-09-27 14:48 | XMS_ITS | Encounter Summary ---
:1960 Author Organization [facility] Address [address] [place] [address] Care Team Providers Name Role Phone Hanane Martinez MD Primary Care Provider [phone] None, Provider Primary Care Provider Unavailable Encounter Details Date Type Department Care Team Description 03/13/2019 Results Only Imaging [facility] - [place], [facility] Radiology Resul ts PA-C [address] [place] [address] [place], [place] [phone] Social History Tobacco Use Types Packs/Day Years Used Date Never Assessed Sex Assigned at Date Recorded Not on file documented as of this encounter Plan of Treatment Not on filedocumented as of this encounter Procedures Procedure Name Priority Date/Time Associated Diagnosis Comme nts CT ABDOMEN PELVIS W 03/13/2019 14:21 Resu lts for this CONTRAST EST procedure are i n the results section. documented in this encounter Results CT ABDOMEN PELVIS W CONTRAST (03/13/2019 14:21 EST) Specimen Narrative [facility] - 03/13/2019 14:21 EST ? EXAM: CAT SCAN/ABDOMEN PELVIS WITH CONTRA EX. D/ (1351) ? CLINICAL INFORMATION: ? lower abdominal pain, vomiting ? PROCEDURE INFORMATION: ? Exam: CT Abdomen And Pelvis With Contrast ? Exam date and time: 03/13/2019 12 :26 PM ? Age: 58 years old ? Clinical indication: Other: Unkno wn; Prior surgery; Surgery ? type: Cholecystectomy, (x2), hernia (x2), ? hysterectomy, appendectomy; Addit ional info: Lower abdominal ? pain, vomiting ? TECHNIQUE: ? Imaging protocol: Computed tomogr aphy of the abdomen and pelvis ? with intravenous contrast. ? Radiation optimization: All CT sc ans at this facility use at ? least one of these dose optimizat ion techniques: automated ? exposure control; mA and/or kV ad justment per patient size ? (includes targeted exams where do se is matched to clinical ? indication); or iterative reconst ruction. ? Contrast material: OMNI 350; Cont rast volume: 100 ml; Contrast ? route: RT ANTECUBITAL; ? COMPARISON: ? No relevant prior studies availab le. ? FINDINGS: ? Liver: Normal. No mass. ? Gallbladder and bile ducts: Previ ous cholecystectomy. ? Pancreas: Normal. No ductal dilat ion. ? Spleen: Normal. No splenomegaly. ? Adrenals: Normal. No mass. ? Kidneys and ureters: Normal. No h ydronephrosis. ? Stomach and bowel: Segment of wal l thickening at the mid sigmoid ? colon, consistent in appearance w ith acute diverticulitis. Small ? foci of extraluminal air within t he adjacent pericolonic ? mesenteric fat, consistent with a contained diverticular ? perforation. ? Appendix: No evidence of appendic itis. ? Intraperitoneal space: See Stomac h And Bowel Finding. ? Vasculature: Unremarkable. No abd ominal aortic aneurysm. ? Lymph nodes: Unremarkable. No enl arged lymph nodes. ? Bladder: Unremarkable as visualiz ed. ? Reproductive: Left adnexal cyst m easures 4.8 x 4.2 cm. ? Bones/joints: Unremarkable. No ac winnebago fracture. ? Soft tissues: Unremarkable. ? IMPRESSION: ? 1. Segment of wall thickening at the mid sigmoid colon, ? consistent in appearance with acu te diverticulitis. Small foci ? of extraluminal air within the ad jacent pericolonic mesenteric ? fat, consistent with a contained diverticular perforation. ? 2. As an underlying malignancy ca nnot be entirely excluded, a ? follow-up examination after a cou rse of treatment is recommended ? PAGE 1 ? Anny d Report ? (CONTINUED) ? if clinically warranted. ? 3. Left adnexal cyst measures 4.8 x 4.2 cm. ? REPORT SIGNED IN OTHER VENDOR SYSTEM 03/13/2019 ?Reported B y: Ivanna Stack MD ? CC: ? Transcribed Date/Time: 03/13/2019 (1421) ? Senior Production Planner: ? Printed Date/Time: 03/13/2019 (14 21) ? PAGE 2 ? Anny d Report ? Procedure Note Ivanna Stack MD - 03/13/2019 EXAM: CAT SCAN/ABDOMEN PELVIS WITH CONT RA EX. D/ (1351) CLINICAL INFORMATION: lower abdominal pain, vomiting PROCEDURE INFORMATION: Exam: CT Abdomen And Pelvis With Contra st Exam date and time: 03/13/2019 12:26 PM Age: 58 years old Clinical indication: Other: Unknown; Pr ior surgery; Surgery type: Cholecystectomy, (x2), hernia (x2), hysterectomy, appendectomy; Additional info: Lower abdominal pain, vomiting TECHNIQUE: Imaging protocol: Computed tomography o f the abdomen and pelvis with intravenous contrast. Radiation optimization: All CT scans at this facility use at least one of these dose optimization te chniques: automated exposure control; mA and/or kV adjustme nt per patient size (includes targeted exams where dose is matched to clinical indication); or iterative reconstructio n. Contrast material: OMNI 350; Contrast v olume: 100 ml; Contrast route: RT ANTECUBITAL; COMPARISON: No relevant prior studies available. FINDINGS: Liver: Normal. No mass. Gallbladder and bile ducts: Previous ch olecystectomy. Pancreas: Normal. No ductal dilation. Spleen: Normal. No splenomegaly. Adrenals: Normal. No mass. Kidneys and ureters: Normal. No hydrone phrosis. Stomach and bowel: Segment of wall thic kening at the mid sigmoid colon, consistent in appearance with ac winnebago diverticulitis. Small foci of extraluminal air within the adj acent pericolonic mesenteric fat, consistent with a conta ined diverticular perforation. Appendix: No evidence of appendicitis. Intraperitoneal space: See Stomach And Bowel Finding. Vasculature: Unremarkable. No abdominal aortic aneurysm. Lymph nodes: Unremarkable. No enlarged lymph nodes. Bladder: Unremarkable as visualized. Reproductive: Left adnexal cyst measure s 4.8 x 4.2 cm. Bones/joints: Unremarkable. No acute fr acture. Soft tissues: Unremarkable. IMPRESSION: 1. Segment of wall thickening at the mi d sigmoid colon, consistent in appearance with acute div erticulitis. Small foci of extraluminal air within the adjacent pericolonic mesenteric fat, consistent with a contained divert icular perforation. 2. As an underlying malignancy cannot b e entirely excluded, a follow-up examination after a course of treatment is recommended PAGE 1 Signed Report (CONTINUED) if clinically warranted. 3. Left adnexal cyst measures 4.8 x 4.2 cm. REPORT SIGNED IN OTHER VENDOR SYSTEM 03/13/2019 Reported By: Ivanna Stack MD CC: Transcribed Date/Time: 03/13/2019 (7050 ) Senior Production Planner: Printed Date/Time: 03/13/2019 (2833) PAGE 2 Signed Report Performing Organization Address City/State/ZIP Code Phon e Number [facility] documented in this encounter Visit Diagnoses Not on filedocumented in this encounter Care Teams Public Relations Account Supervisor Relationship Specialty Start Date End Date Hanane Martinez MD PCP - General 02/09/19 04/03/21 None, Provider PCP - General 04/04/21 documented as of this encounter
--- OUTSIDE RECORDS SUMMARY | 2021-09-27 14:48 | XMS_ITS | Encounter Summary ---
:1960 Author Organization [facility] Address [address] [place] [address] Care Team Providers Name Role Phone Abhinav Agarwal MD Primary Care Provider Unavailable Encounter Details Date Type Department Care Team Description 12/21/2015 Historical Results [facility] - Hilary Campos , Only [facility] Res[facility] PA-C [address] [place], [place] [id number] [place] [address] Road [address] [place] [address] Social History Tobacco Use Types Packs/Day Years Used Date Never Assessed Sex Assigned at Date Recorded Not on file documented as of this encounter Plan of Treatment Not on filedocumented as of this encounter Procedures Procedure Name Priority Date/Time Associated Diagnosis Comme nts XR CHEST 2 VIEWS 12/21/2015 17:40 EDT Res ults for this procedure are i n the results section. documented in this encounter Results XR CHEST 2 VIEWS (12/21/2015 17:40 EDT) Specimen Narrative [facility] RADIOLOGY - 12/21/2015 17:45 EDT ? EXAM: RADIOLOGY EXPRESS CARE/EXP CARE XR ??EX. D/ (1733) ? CLINICAL INFORMATION: ? R05 - COUGH, COMPLETED COURSE OF PREDNISONE. XRAY DONE AT EX[facility] ? EXP CARE XR CHEST PA ?? LAT ? Signs and Symptoms/Comments: R05 - COUGH, COMPLETED COURSE OF ? PREDNISONE. XRAY DONE AT [facility] ? Comparison: 01/08/2009. CT abdome n on 12/03/2006. ? FINDINGS: ? Frontal and lateral views of the chest were performed. The lungs are ? clear. No pneumothorax or pleural effusion is present. The ? cardiomediastinal silhouette and pulmonary vascularity are ? unremarkable. Mild multilevel tho racolumbar degenerative disease is ? present. Cholecystectomy clips ar e present. ? IMPRESSION: ? No acute cardiopulmonary process. ? REPORT SIGNED IN OTHER VENDOR SYSTEM 12/21/2015 ?Reported B y: Noel Silva MD ? CC: ? Transcribed Date/Time: 12/21/2015 (1745) ? Globe Cleaner: [email or web address] ? Printed Date/Time: 08/27/2018 (13 14) ? PAGE 1 ? Anny d Report ? Procedure Note Noel Silva MD - 01/19/2019 EXAM: RADIOLOGY EXPRESS CARE/EXP CARE X R EX. D/ (1733) CLINICAL INFORMATION: R05 - COUGH, COMPLETED COURSE OF PREDNI SONE. XRAY DONE AT [facility] EXP CARE XR CHEST PA LAT Signs and Symptoms/Comments: R05 - COUG H, COMPLETED COURSE OF PREDNISONE. XRAY DONE AT EX[facility] Comparison: 01/08/2009. CT abdomen on . FINDINGS: Frontal and lateral views of the chest were performed. The lungs are clear. No pneumothorax or pleural effus ion is present. The cardiomediastinal silhouette and pulmon jenaro vascularity are unremarkable. Mild multilevel thoracolu mbar degenerative disease is present. Cholecystectomy clips are pres ent. IMPRESSION: No acute cardiopulmonary process. REPORT SIGNED IN OTHER VENDOR SYSTEM 12/21/2015 Reported By: Noel Silva MD CC: Transcribed Date/Time: 12/21/2015 (2562 ) Globe Cleaner: Printed Date/Time: 08/27/2018 (0433) PAGE 1 Signed Report Performing Organization Address City/State/ZIP Code Phon e Number [facility] RADIOLOGY documented in this encounter Visit Diagnoses Not on filedocumented in this encounter Care Teams Vault Attendant Relationship Specialty Start Date End Date Abhinav Agarwal MD PCP - General 01/20/15 02/08/19 documented as of this encounter
--- OUTSIDE RECORDS SUMMARY | 2021-09-27 14:48 | XMS_ITS | Encounter Summary ---
:1960 Author Organization [facility] Address [address] [place] [address] Care Team Providers Name Role Phone Abhinav Agarwal MD Primary Care Provider Unavailable Encounter Details Date Type Department Care Team Description 06/01/2017 Hospital Encounter [facility] - Unknown, Karthiki darrel, [facility] [phone] [place] [address] (Work) [place] [address] Social History Tobacco Use Types Packs/Day Years Used Date Never Assessed Sex Assigned at Date Recorded Not on file documented as of this encounter Medications at Time of Discharge Medication Sig Dispensed Refills Start Date End Date albuterol (PROAIR 2 puff(s) inhaled USING 0 12/16 HFA) 90 mcg/actuation SPACER 4 times a day X 1 inhaler WEEK THEN PRN nicotine (NICODERM 1 PATCH transdermally 0 201603/28/2019 CQ) 21 mg/24 hr patch once a day documented as of this encounter Discharge Disposition Disposition Code Departure Means Destination Home or Self Halfway documented in this encounter Plan of Treatment Not on filedocumented as of this encounter Visit Diagnoses Not on filedocumented in this encounter Care Teams Outsole Tacker Relationship Specialty Start Date End Date Abhinav Agarwal MD PCP - General 01/20/15 02/08/19 documented as of this encounter
--- OUTSIDE RECORDS SUMMARY | 2021-09-27 14:48 | XMS_ITS | Encounter Summary ---
:[address] [facility] Address [address] [place] [address] Care Team Providers Name Role Phone Hanane Martinez MD Primary Care Provider [phone] Encounter Details Date Type Department Care Team Description 03/17/2019 Results Only [facility] Hawkins MD Lab - [address] [address] [place], [place] [id number] [phone] Social History Tobacco Use Types Packs/Day Years Used Date Never Assessed Sex Assigned at Date Recorded Not on file documented as of this encounter Plan of Treatment Not on filedocumented as of this encounter Procedures Procedure Name Priority Date/Time Associated Comments Diagnosis COMPLETE BLOOD COUNT Routine 03/17/2019 6:15 Resu lts for this AND DIFFERENTIAL EST procedure a re in the results section. CREATININE Routine 03/17/2019 6:15 Results for this EST procedure are i n the results section. documented in this encounter Results (ABNORMAL) COMPLETE BLOOD COUNT AND DIFFERENTIAL (03/17/2019 6:15 EST) ABSOLUTE NEUTROPHIL 14.04 (H) 1.7 - 7.0 [facility] COUN - [facility] 10e3/ul CENTER LAB BANDS - [facility] 4 (H) 0 - 3 % [facility] HEMATOCRIT - [facility] 38.6 34.9 - 44.4 % [facility] HEMOGLOBIN - [facility] 12.8 11.6 - 15.2 [facility] g/dl [facility] LYMPH # - [facility] 3.06 (H) 0.9 - 2.9 [facility] 10e3/uL CENTER LAB LYMPHOCYTES - [facility] 17 (L) 20 - 40 % [facility] LAB MEAN CORPUSCULAR HGB 30.0 26.7 - 33.3 pg [facility] ME D - [facility] CENTER LAB MEAN CORPUSCULAR HGB 33.2 32.1 - 35.9 [facility] CONC - [facility] g/dL CENTER LAB MEAN CELL VOLUME - 90.6 81 - 98 fl [facility] LAB MONO # - [facility] 0.90 0.3 - 0.9 [facility] 10e3/uL CENTER LAB MONOCYTE - [facility] 5 0 - 12 % [facility] LAB PLATELET COUNT 300 141 - 377 [facility] 10e3/ul [facility] NEUTROPHILS - [facility] 74 40 - 80 % [facility] LAB RED BLOOD COUNT - 4.26 3.86 - 5.04 [facility] 10e3/ul [facility] RED CELL DISTRI WIDTH 13.4 <14.7 % [facility] LAB WHITE BLOOD COUNT - 18.0 (H) 4.0 - 12.4 [facility] 10e3/ul [facility] Specimen Performing Organization Address City/[facility]/ZIP Code Phon e Number [facility] [address] LAB CREATININE (03/17/2019 6:15 EST) CREATININE 0.56 0.52 - 1.04 [facility] mg/dL [facility] eGFR >60 [facility] Comment: CENTER LAB Chronic renal impairment is defined as GFR <60 Multiply result by 1.210 for patients . eGFR calculated using the IDMS-traceable MDRD Study Equation. ??(effective 01/16/2014) Specimen Narrative [facility] - 020 7:23 EST Does PT Have a Latex Allergy? NO Performing Organization Address City/[facility]/ZIP Code Phon e Number [facility] [address] [place] [id number] [facility] documented in this encounter Visit Diagnoses Not on filedocumented in this encounter Care Teams Marine Steam Fitter Relationship Specialty Start Date End Date Hanane Martinez MD PCP - General 02/09/19 04/03/21 documented as of this encounter
--- OUTSIDE RECORDS SUMMARY | 2021-09-27 14:48 | XMS_ITS | Encounter Summary ---
:[address] [facility] Address [address] [place] [address] Care Team Providers Name Role Phone Abhinav Agarwal MD Primary Care Provider Unavailable Encounter Details Date Type Department Care Team Description 01/26/2017 Hospital Encounter [facility] - Unknown, Yasmany rooj [facility] [phone] [place] [address] (Work) [place] [address] Social History Tobacco Use Types Packs/Day Years [...] Code Departure Means Destination Home or Self Assisted documented in this encounter Plan of Treatment Not on filedocumented as of this encounter Visit Diagnoses Not on filedocumented in this encounter Care Teams Mastercam Programmer Relationship Specialty Start Date End Date Abhinav Agarwal MD PCP - General 01/20/15 02/08/19 documented as of this encounter
--- OUTSIDE RECORDS SUMMARY | 2021-09-27 14:48 | XMS_ITS | Encounter Summary ---
:1960 Author Organization [facility] Address [address] [place] [address] Care Team Providers Name Role Phone Abhinav Agarwal MD Primary Care Provider Unavailable Encounter Details Date Type Department Care Team Description 05/05/2015 Historical Results [facility] - Shana Only [facility] Radiology Resul ts Johanna, [address] Sonam, [place] [address] [address] [facility] [phone] [place] [address] Social History Tobacco Use Types Packs/Day Years Used Date Never Assessed Sex Assigned at Date Recorded Not on file documented as of this encounter Plan of Treatment Not on filedocumented as of this encounter Visit Diagnoses Not on filedocumented in this encounter Care Teams Financial Report Service Sales Agent Relationship Specialty Start Date End Date Abhinav Agarwal MD PCP - General 01/20/15 02/08/19 documented as of this encounter
--- OUTSIDE RECORDS SUMMARY | 2021-09-27 14:48 | XMS_ITS | Encounter Summary ---
:1960 Author Organization [facility] Address [address] [place] [address] Care Team Providers Name Role Phone Hanane Martinez MD Primary Care Provider [phone] Encounter Details Date Type Department Care Team Description 03/16/2019 Results Only [facility] - [facility] Anival Dong DO Lab - [address] [address] [place] [address] [phone] Social History Tobacco Use Types Packs/Day Years Used Date Never Assessed Sex Assigned at Date Recorded Not on file documented as of this encounter Plan of Treatment Not on filedocumented as of this encounter Procedures Procedure Name Priority Date/Time Associated Comments Diagnosis LACTIC ACID SEPSIS Routine 03/16/2019 20:50 Resul ts for this REFLEX - [facility] EST procedure are in the results section. URINALYSIS/COMPLETE - Routine 03/16/2019 20:48 Re sults for this [facility] EST procedure are i n the results section. COMPLETE BLOOD COUNT Routine 03/16/2019 20:30 Res ults for this WITH DIFFERENTIAL EST procedure are in (AUTO) the results section. C REACTIVE PROTEIN Routine 03/16/2019 20:30 Resul ts for this EST procedure are i n the results section. COMPREHENSIVE Routine 03/16/2019 20:30 Results fo r this METABOLIC PANEL (CMP) EST proced ure are in the results section. documented in this encounter Results LACTIC ACID SEPSIS REFLEX - [facility] (03/16/2019 20:50 EST) Pathologist [facility] nature LACTIC ACID - [facility] 1.0 <2.0 mmol/L [facility] NTER LAB Specimen Performing Organization Address City/[facility]/ZIP Code Phon e Number [facility] [address] LAB URINALYSIS/COMPLETE - [facility] (03/16/2019 20:48 EST) URINE APPEARANCE - Clear CLEAR [facility] URINE BACTERIA - FEW [facility] URINE BILIRUBIN - Negative NEGATIVE [facility] DIPSTICK [facility] URINE BLOOD - [facility] 2+ NEG [facility] URINE COLOR - [facility] Yellow YELLOW [facility] URINE GLUCOSE - Negative NEGATIVE [facility] DIPSTICK [facility] URINE KETONE - [facility] Negative NEGATIVE [facility] LAB URINE LEUK ESTERASE Trace NEG [facility] LAB URINE NITRITE - Negative NEG [facility] URINE PH - [facility] 6.5 4.0 - 8.0 [facility] URINE PROTEIN - Negative NEG [facility] DIPSTICK [facility] URINE RBC - [facility] NEG rbc/hpf [facility] URCULTIF+? - [facility] Culture Ordered [facility] URINE SPECIFIC <=1.005 1.001 - 1.035 [facility] GRAVITY [facility] URINE SQUAMOUS CELLS FEW NEG #/hpf [facility] URINE UROBILINOGEN - 0.2 0.2 - 1.0 [facility] URINE WBC - [facility] 1-4 NEG wbc/hpf [facility] Specimen Performing Organization Address City/[facility]/ZIP Code Phon e Number [facility] [address] LAB (ABNORMAL) C REACTIVE PROTEIN (03/16/2019 20:30 EST) Pathologist Sig nature C-Reactive Protein 260.8 (H) <10.0 mg/L [facility] Specimen Performing Organization Address City/[facility]/ZIP Code Phon e Number [facility] [address] LAB (ABNORMAL) COMPREHENSIVE METABOLIC PANEL (CMP) (03/16/2019 20:30 EST) Pathologist [facility] ALBUMIN - [facility] 3.3 (L) 3.4 - 4.9 [facility] g/dL [facility] ALKALINE 100 38 - 126 U/L [facility] PHOSPHATASE [facility] BILIRUBIN TOTAL 0.5 0.2 - 1.3 [facility] mg/dL [facility] BUN - [facility] 13 10 - 26 mg/dL [facility] CALCIUM - [facility] 8.9 8.5 - 10.5 [facility] mg/dL [facility] Chloride 98 96 - 110 [facility] mmol/L [facility] CO2 Total 26 22 - 32 mEq/L [facility] LAB CREATININE 0.56 0.52 - 1.04 [facility] mg/dL [facility] LAB eGFR >60 [facility] Comment: [facility] LAB Chronic renal impairment is defined as GFR <60 Multiply result by 1.210 for patients . eGFR calculated using the IDMS-traceable MDRD Study Equation. ??(effective 01/16/2014) Anion Gap 9 0 - 18 [facility] GLUCOSE - [facility] 133 (H) 70 - 100 [facility] mg/dL [facility] Potassium 4.0 3.5 - 5.0 [facility] mEq/L [facility] Sodium 133 (L) 136 - 145 [facility] mEq/L [facility] TOTAL PROTEIN - 6.6 6.2 - 8.2 [facility] gm/dL [facility] LAB SGOT/AST - [facility] 39 (H) 14 - 36 U/L [facility] SGPT/ALT - [facility] 36 9 - 52 U/L [facility] Specimen Performing Organization Address City/State/[facility] Code Phon e Number [facility] [address] LAB (ABNORMAL) COMPLETE BLOOD COUNT WITH DIFFERENTIAL (AUTO) (03/16/2019 20:30 EST) Pathologist Sig nature Gran # 14.6 (H) 2.2 - 8.85 [facility] 10e3/uL CENTER LAB BASO # - [facility] 0.08 0.01 - 0.11 [facility] 10e/uL CENTER LAB BASO % - [facility] 0 0 - 2 % [facility] EOS # - [facility] 0.06 0.03 - 0.61 [facility] 10e3/ul CENTER LAB EOS % - [facility] 0 0 - 5 % [facility] GRAN % - [facility] 77.5 40 - 80 % [facility] HEMATOCRIT - [facility] 43.5 34.9 - 44.4 % [facility] HEMOGLOBIN - [facility] 14.4 11.6 - 15.2 [facility] g/dl [place] [facility] IG# - [facility] 0.22 0 - 0.7 10e3/uL [facility] IG% - [facility] 1.2 (H) 0 - 0.9 % [facility] LYMPH # - [facility] 2.4 1.09 - 3.3 [facility] 10e3/ul [place] [facility] LYMPH% - [facility] 12.9 (L) 20 - 40 % [facility] MEAN CORPUSCULAR HGB 30.0 26.7 - 33.3 pg [facility] ME D [facility] CENTER LAB MEAN CORPUSCULAR HGB 33.1 32.1 - 35.9 [facility] CONC - [facility] g/dL CENTER LAB MEAN CELL VOLUME - 90.6 81 - 98 fl [facility] CENTER LAB MONO # - [facility] 1.5 (H) 0.1 - 0.8 [facility] 10e3/uL [place] [facility] MONO% - [facility] 7.7 0 - 12 % [facility] LAB PLATELET COUNT 337 141 - 377 [facility] 10e3/ul [place] [facility] RED BLOOD COUNT - 4.80 3.86 - 5.04 [facility] 10e3/ul [place] [facility] RED CELL DISTRI WIDTH 13.1 <14.7 % [facility] LAB WHITE BLOOD COUNT - 18.9 (H) 4.0 - 12.4 [facility] 10e3/ul [place] [facility] Specimen Performing Organization Address City/State/ZIP Code Phon e Number [facility] [address] [place], [place] [id number] [place] [address] LAB documented in this encounter Visit Diagnoses Not on filedocumented in this encounter Care Teams Automobile Service Writer Relationship Specialty Start Date End Date Hanane Martinez MD PCP - General 02/09/19 04/03/21 documented as of this encounter
--- OUTSIDE RECORDS SUMMARY | 2021-09-27 14:48 | XMS_ITS | Encounter Summary ---
:1960 Author Organization [facility] Address [address] [place] [address] Care Team Providers Name Role Phone Abhinav Agarwal MD Primary Care Provider Unavailable Encounter Details Date Type Department Care Team Description 12/21/2015 Hospital Encounter [facility] - Unknown, Provi darrel, [facility] [phone] [place] [address] (Work) [place] [address] Social History Tobacco Use Types Packs/Day Years Used Date Never Assessed Sex Assigned at Date Recorded Not on file documented as of this encounter Medications at Time of Discharge Medication Sig Dispensed Refills Start Date End Date albuterol (PROAIR HFA) 90 2 puff(s) inhaled 0 05/2015 mcg/actuation inhaler USING SPACER 4 times a day X 1 WEEK THEN PRN documented as of this encounter Discharge Disposition Disposition Code Departure Means Destination Home or Self Long Term documented in this encounter Plan of Treatment Not on filedocumented as of this encounter Visit Diagnoses Not on filedocumented in this encounter Care Teams Scheduling Representative Relationship Specialty Start Date End Date Abhinav Agarwal MD PCP - General 01/20/15 02/08/19 documented as of this encounter
--- OUTSIDE RECORDS SUMMARY | 2021-09-27 14:48 | XMS_ITS | Encounter Summary ---
:1960 Author Organization [facility] Address [address] [place] [address] Care Team Providers Name Role Phone Hanane Martinez MD Primary Care Provider [phone] None, Provider Primary Care Provider Unavailable Encounter Details Date Type Department Care Team Description 03/19/2019 Results Only Imaging [facility] - Hilario Hodge [facility] Radiology Resul ts [address] [phone] (Wo rk) Social History Tobacco Use Types Packs/Day Years Used Date Never Assessed Sex Assigned at Date Recorded Not on file documented as of this encounter Plan of Treatment Not on filedocumented as of this encounter Procedures Procedure Name Priority Date/Time Associated Diagnosis Comme nts XR CHEST 1 VIEW 03/19/2019 17:32 Results for this EST procedure are i n the results section. XR ABDOMEN 1 VIEW 03/19/2019 14:00 Result s for this EST procedure are i n the results section. XR CHEST 1 VIEW 03/19/2019 13:34 Results for this EST procedure are i n the results section. documented in this encounter Results XR CHEST 1 VIEW (03/19/2019 17:32 EST) Specimen Narrative [facility] RADIOLOG[facility] - 03/19/2019 17:32 EST ? EXAM: RADIOLOGY/CHEST-PORTABLE ?EX. D/ (1721) ? CLINICAL INFORMATION: ? Confirm central line tip placemen t ? PROCEDURE INFORMATION: ? Exam: XR Chest, 1 View ? Exam date and time: 03/19/2019 4:54 PM ? Age: 58 years old ? Clinical indication: Pain; Other: Confirm central line tip ? placement; Patient HX: Please sta te if line is in lower svc or ? not ? TECHNIQUE: ? Imaging protocol: XR of the chest ? Views: 1 view. ? COMPARISON: ? CR (AP Non Grid, CHEST, Portable Chest) 03/19/2019 12:44 PM ? FINDINGS: ? Tubes, catheters and devices: Rig ht IJ catheter tip over the ? distal SVC. Enteric tube tip is b eyond the proximal portion of ? the stomach and is not seen becau se it is below the inferior ? margin of the film. ? Lungs: Mild interstitial pattern consistent with infectious ? pneumonitis, allergic pneumonitis or pulmonary interstitial ? edema. ? Pleural space: Unremarkable. No p leural effusion. No ? pneumothorax. ? Heart/Mediastinum: Unremarkable. No cardiomegaly. ? Bones/joints: Unremarkable. ? Other findings: Patient rotation to the right. ? IMPRESSION: ? 1. Right IJ catheter tip over the distal SVC. ? 2. Mild interstitial pattern cons istent with infectious ? pneumonitis, allergic pneumonitis or pulmonary interstitial ? edema. ? 3. Enteric tube tip is beyond the proximal portion of the ? stomach and is not seen because i t is below the inferior margin ? of the film. ? REPORT SIGNED IN OTHER VENDOR SYSTEM 03/19/2019 ?Reported B y: Jas Aly MD ? CC: ? Transcribed Date/Time: 03/19/2019 (1732) ? [place]: ? Printed Date/Time: 03/19/2019 (17 32) ? PAGE 1 ? Anny d Report ? Procedure Note Jas Aly MD - 03/19/2019 EXAM: RADIOLOGY/CHEST-PORTABLE EX. D/ (1721) CLINICAL INFORMATION: Confirm central line tip placement PROCEDURE INFORMATION: Exam: XR Chest, 1 View Exam date and time: 03/19/2019 4:54 PM Age: 58 years old Clinical indication: Pain; Other: Confi rm central line tip placement; Patient HX: Please state if line is in lower svc or not TECHNIQUE: Imaging protocol: XR of the chest Views: 1 view. COMPARISON: CR (AP Non Grid, CHEST, Portable Chest) 03/19/2019 12:44 PM FINDINGS: Tubes, catheters and devices: Right IJ catheter tip over the distal SVC. Enteric tube tip is beyond the proximal portion of the stomach and is not seen because it is below the inferior margin of the film. Lungs: Mild interstitial pattern consis tent with infectious pneumonitis, allergic pneumonitis or pu lmonary interstitial edema. Pleural space: Unremarkable. No pleural effusion. No pneumothorax. Heart/Mediastinum: Unremarkable. No car diomegaly. Bones/joints: Unremarkable. Other findings: Patient rotation to the right. IMPRESSION: 1. Right IJ catheter tip over the dista l SVC. 2. Mild interstitial pattern consistent with infectious pneumonitis, allergic pneumonitis or pu lmonary interstitial edema. 3. Enteric tube tip is beyond the proxi mal portion of the stomach and is not seen because it is b elow the inferior margin of the film. REPORT SIGNED IN OTHER VENDOR SYSTEM 03/19/2019 Reported By: Jas Aly MD CC: Transcribed Date/Time: 03/19/2019 (1732 ) [place]: Printed Date/Time: 03/19/2019 (1732) PAGE 1 Signed Report Performing Organization Address City/State/ZIP Code Phon e Number [facility] RAD[facility] XR ABDOMEN 1 VIEW (03/19/2019 14:00 EST) Specimen Narrative [facility] RAD[facility] - 03/19/2019 14:00 EST ? EXAM: RADIOLOGY/ABDOMEN PORTABLE KUB ?EX. D/ (9894) ? CLINICAL INFORMATION: ? acute abdominal pain r/o perforat ion ? PROCEDURE INFORMATION: ? Exam: XR Abdomen, 1 View ? Exam date and time: 03/19/2019 12:0 0 AM ? Age: 58 years old ? Clinical indication: Abdominal pa in; Acute; Additional info: ? Acute abdominal pain R/O perforat ion ? TECHNIQUE: ? Imaging protocol: XR of the abdom en. ? Views: Frontal supine view of the abdomen. 1 View. ? COMPARISON: ? CT ABDOMEN PELVIS WITH CONTRAST 9:02 PM ? FINDINGS: ? Gastrointestinal tract: Small bow el dilatation ? Intraperitoneal space: Postoperat nathan change in the pelvis. ? Organs: Cholecystectomy. ? Bones/joints: No acute findings. ? IMPRESSION: ? Nonspecific bowel dilatation cons istent with ileus versus ? partial small bowel obstruction. ? REPORT SIGNED IN OTHER VENDOR SYSTEM 03/19/2019 ?Reported B y: Abel Bright MD ? CC: ? Transcribed Date/Time: 03/19/2019 (1400) ? [place]: ? Printed Date/Time: 03/19/2019 (14 00) ? PAGE 1 ? Anny d Report ? Procedure Note Abel Bright MD - 03/19/2019 EXAM: RADIOLOGY/ABDOMEN PORTABLE KUB EX . D/ (1354) CLINICAL INFORMATION: acute abdominal pain r/o perforation PROCEDURE INFORMATION: Exam: XR Abdomen, 1 View Exam date and time: 03/19/2019 12:00 AM Age: 58 years old Clinical indication: Abdominal pain; Ac bertha; Additional info: Acute abdominal pain R/O perforation TECHNIQUE: Imaging protocol: XR of the abdomen. Views: Frontal supine view of the abdom en. 1 View. COMPARISON: CT ABDOMEN PELVIS WITH CONTRAST 0 9:02 PM FINDINGS: Gastrointestinal tract: Small bowel dil atation Intraperitoneal space: Postoperative ch louie in the pelvis. Organs: Cholecystectomy. Bones/joints: No acute findings. IMPRESSION: Nonspecific bowel dilatation consistent with ileus versus partial small bowel obstruction. REPORT SIGNED IN OTHER VENDOR SYSTEM 03/19/2019 Reported By: Abel Bright MD CC: Transcribed Date/Time: 03/19/2019 (1400 ) [place]: Printed Date/Time: 03/19/2019 (1400) PAGE 1 Signed Report Performing Organization Address City/State/ZIP Code Phon e Number [facility] XR CHEST 1 VIEW (03/19/2019 13:34 EST) Specimen Narrative [facility] - 03/19/2019 13:34 EST ? EXAM: RADIOLOGY/CHEST-PORTABLE ?EX. D/ (1306) ? CLINICAL INFORMATION: ? INCREASED ABDOMINAL PAIN. ? PROCEDURE INFORMATION: ? Exam: XR Chest, 1 View ? Exam date and time: 03/19/2019 1:05 PM ? Age: 58 years old ? Clinical indication: Pain; Other: Abdominal; Additional info: ? Increased abdominal pain. ? TECHNIQUE: ? Imaging protocol: XR of the chest ? Views: 1 view. ? COMPARISON: ? CR CHEST (PA ?? LAT) 03/16/2019 10: 25 PM ? FINDINGS: ? Lungs: Minimal nonspecific inters titial thickening, unchanged. ? No consolidation. ? Pleural space: Unremarkable. No p leural effusion. No ? pneumothorax. ? Heart/Mediastinum: Unremarkable. No cardiomegaly. ? Bones/joints: No acute findings. ? IMPRESSION: ? No acute findings. ? REPORT SIGNED IN OTHER VENDOR SYSTEM 03/19/2019 ?Reported B y: Abel Bright MD ? CC: ? Transcribed Date/Time: 03/19/2019 (1334) ? [place]ser: HIS.[email or web address] ? Printed Date/Time: 03/19/2019 (13 34) ? PAGE 1 ? Anny d Report ? Procedure Note Abel Bright MD - 03/19/2019 EXAM: RADIOLOGY/CHEST-PORTABLE EX. D/ (1306) CLINICAL INFORMATION: INCREASED ABDOMINAL PAIN. PROCEDURE INFORMATION: Exam: XR Chest, 1 View Exam date and time: 03/19/2019 1:05 PM Age: 58 years old Clinical indication: Pain; Other: Abdom inal; Additional info: Increased abdominal pain. TECHNIQUE: Imaging protocol: XR of the chest Views: 1 view. COMPARISON: CR CHEST (PA LAT) 03/16/2019 10:25 PM FINDINGS: Lungs: Minimal nonspecific interstitial thickening, unchanged. No consolidation. Pleural space: Unremarkable. No pleural effusion. No pneumothorax. Heart/Mediastinum: Unremarkable. No car diomegaly. Bones/joints: No acute findings. IMPRESSION: No acute findings. REPORT SIGNED IN OTHER VENDOR SYSTEM 03/19/2019 Reported By: Abel Bright MD CC: Transcribed Date/Time: 03/19/2019 (6362 ) [place]: Printed Date/Time: 03/19/2019 (4651) PAGE 1 Signed Report Performing Organization Address City/State/ZIP Code Phon e Number [facility] documented in this encounter Visit Diagnoses Not on filedocumented in this encounter Care Teams Clinical Trial Assistant Relationship Specialty Start Date End Date Hanane Martinez MD PCP - General 02/09/19 04/03/21 None, Provider PCP - General 04/04/21 documented as of this encounter
--- OUTSIDE RECORDS SUMMARY | 2021-09-27 14:48 | XMS_ITS | Encounter Summary ---
:1960 Author Organization [facility] Address [address] [place] [address] Care Team Providers Name Role Phone Hanane Martinez MD Primary Care Provider Encounter Details Date Type Department Care Team Description 03/13/2019 Results Only [facility]- Lianet Solo PA-C [phone] [place] [phone] Social History Tobacco Use Types Packs/Day Years Used Date Never Assessed Sex Assigned at Date Recorded Not on file documented as of this encounter Plan of Treatment Not on filedocumented as of this encounter Procedures Procedure Name Priority Date/Time Associated Comments Diagnosis LACTIC ACID SEPSIS Routine 03/13/2019 12:36 Resul ts for this REFLEX - [facility] EST procedure are in the results section. LIPASE - [facility] Routine 03/13/2019 12:24 Results fo r this EST procedure are i n the results section. COMPLETE BLOOD COUNT Routine 03/13/2019 12:24 Res ults for this WITH DIFFERENTIAL EST procedure are in (AUTO) the results section. C REACTIVE PROTEIN Routine 03/13/2019 12:24 Resul ts for this EST procedure are i n the results section. COMPREHENSIVE Routine 03/13/2019 12:24 Results fo r this METABOLIC PANEL (CMP) EST proced ure are in the results section. documented in this encounter Results LACTIC ACID SEPSIS REFLEX - [facility] (03/13/2019 12:36 EST) Pathologist Sig nature LACTIC ACID [place] [facility] 1.8 <2.0 mmol/L [facility] Specimen Performing Organization Address City/State/ZIP Code Phon e Number [facility] [phone] [place] [address] LAB LIPASE [facility] (03/13/2019 12:24 EST) Pathologist Sig nature [facility] 35 <251 U/L [facility] Specimen Performing Organization Address City/State/ZIP Code Phon e Number [facility] [address] [place] [address] [facility] (ABNORMAL) C REACTIVE PROTEIN (03/13/2019 12:24 EST) Pathologist Sig nature C-Reactive Protein 170.8 (H) <10.0 mg/L [facility] Specimen Performing Organization Address City/[facility]/ZIP Code Phon e Number [facility] [address] LAB (ABNORMAL) COMPREHENSIVE METABOLIC PANEL (CMP) (03/13/2019 12:24 EST) ALBUMIN - [facility] 3.7 3.4 - 4.9 [facility] g/dL [facility] ALKALINE 90 38 - 126 U/L [facility] PHOSPHATASE [facility] BILIRUBIN TOTAL 0.6 0.2 - 1.3 [facility] mg/dL [facility] BUN - [facility] 17 10 - 26 mg/dL [facility] CALCIUM - [facility] 9.4 8.5 - 10.5 [facility] mg/dL [facility] Chloride 99 96 - 110 [facility] mmol/L [facility] CO2 Total 31 22 - 32 mEq/L [facility] CREATININE 0.97 0.52 - 1.04 [facility] mg/dL [facility] eGFR 59 [facility] Comment: [facility] Stage 3: Moderate renal impairment is defined as GFR 3 0-59 Multiply result by 1.210 for patients . eGFR calculated using the IDMS-traceable MDRD Study Equation. ??(effective 01/16/2014) Anion Gap 6 0 - 18 [facility] GLUCOSE - [facility] 120 (H) 70 - 100 [facility] mg/dL [facility] Potassium 4.2 3.5 - 5.0 [facility] mEq/L [facility] Sodium 136 136 - 145 [facility] mEq/L [facility] TOTAL PROTEIN - 6.7 6.2 - 8.2 [facility] gm/dL [facility] SGOT/AST - [facility] 21 14 - 36 U/L [facility] SGPT/ALT - [facility] 25 9 - 52 U/L [facility] Specimen Performing Organization Address City/State/ZIP Code Phon e Number [facility] [address] [place], [place] [id number] [place] [address] LAB (ABNORMAL) COMPLETE BLOOD COUNT WITH DIFFERENTIAL (AUTO) (03/13/2019 12:24 EST) Pathologist Sig nature Gran # 16.1 (H) 2.2 - 8.85 [facility] 10e3/uL [facility] BASO # - [facility] 0.07 0.01 - 0.11 [facility] 10e/uL [facility] BASO % - [facility] 0 0 - 2 % [facility] EOS # - [facility] 0.04 0.03 - 0.61 [facility] 10e3/ul [facility] EOS % - [facility] 0 0 - 5 % [facility] GRAN % - [facility] 90.4 (H) 40 - 80 % [facility] HEMATOCRIT - [facility] 45.8 (H) 34.9 - 44.4 % [facility] HEMOGLOBIN - [facility] 15.2 11.6 - 15.2 [facility] g/dl [facility] IG# - [facility] 0.09 0 - 0.7 10e3/uL [facility] IG% - [facility] 0.5 0 - 0.9 % [facility] LYMPH # - [facility] 1.2 1.09 - 3.3 [facility] 10e3/ul [facility] LYMPH% - [facility] 6.4 (L) 20 - 40 % [facility] MEAN CORPUSCULAR HGB 30.6 26.7 - 33.3 pg [facility] ME D - CV [facility]ENTER LAB MEAN CORPUSCULAR HGB 33.2 32.1 - 35.9 [facility] CONC - [facility] g/dL [facility] MEAN CELL VOLUME - 92.3 81 - 98 fl [facility] MONO # - [facility] 0.4 0.1 - 0.8 [facility] 10e3/uL [facility] MONO% - [facility] 2.1 0 - 12 % [facility] PLATELET COUNT 272 141 - 377 [facility] 10e3/ul CENTER LAB RED BLOOD COUNT - 4.96 3.86 - 5.04 [facility] 10e3/ul [facility] RED CELL DISTRI WIDTH 12.7 <14.7 % [facility] LAB WHITE BLOOD COUNT - 17.8 (H) 4.0 - 12.4 [facility] 10e3/[facility] LAB Specimen Performing Organization Address City/State/ZIP Code Phon e Number [facility] [address] LAB documented in this encounter Visit Diagnoses Not on filedocumented in this encounter Care Teams Snuff Container Inspector Relationship Specialty Start Date End Date Hanane Martinez MD PCP - General 02/09/19 04/03/21 documented as of this encounter
--- OUTSIDE RECORDS SUMMARY | 2021-09-27 14:48 | XMS_ITS | Encounter Summary ---
:1960 Author Organization [facility] Address [address] [place] [address] Care Team Providers Name Role Phone Hanane Martinez MD Primary Care Provider [phone] None, Provider Primary Care Provider Unavailable Encounter Details Date Type Department Care Team Description 03/16/2019 Results Only Imaging [facility] - Monica Dong DO [facility] [place] [address] [facility] [address] [place] [phone] (Wo rk) Social History Tobacco Use Types Packs/Day Years Used Date Never Assessed Sex Assigned at Date Recorded Not on file documented as of this encounter Plan of Treatment Not on filedocumented as of this encounter Procedures Procedure Name Priority Date/Time Associated Diagnosis Comme nts XR CHEST 2 VIEWS 03/16/2019 22:32 Results for this EST procedure are i n the results section. CT ABDOMEN PELVIS W 03/16/2019 22:02 Resu lts for this CONTRAST EST procedure are i n the results section. documented in this encounter Results XR CHEST 2 VIEWS (03/16/2019 22:32 EST) Specimen Narrative [facility] RADIOLOGY - 03/16/2019 22:32 EST ? EXAM: RADIOLOGY/CHEST PA ?? LAT ?EX. D/ (2228) ? CLINICAL INFORMATION: ? possible preop ? PROCEDURE INFORMATION: ? Exam: XR Chest, 2 Views ? Exam date and time: 03/16/2019 00:0 0 ? Age: 58 years old ? Clinical indication: Smoker's cou gh; Additional info: Possible ? preop, smoker ? TECHNIQUE: ? Imaging protocol: XR of the chest ? Views: 2 views. ? COMPARISON: ? CR ([id number], CHEST, CHEST PA) 1 03/28/2016 11:40 ? FINDINGS: ? Lungs: Low lung volumes. No airsp chantel consolidation. Slight ? vascular and interstitial crowdin g probably relating to low lung ? volumes. ? Pleural space: No pleural effusio n. No pneumothorax. ? Heart/Mediastinum: No cardiomegal y. ? Bones/joints: No acute fracture. ? Other findings: Right upper quadr ant clips, probable ? cholecystectomy. ? IMPRESSION: ? No acute cardiopulmonary patholog y. ? REPORT SIGNED IN OTHER VENDOR SYSTEM 03/16/2019 ?Reported B y: Alessandra Zee MD ? CC: ? Transcribed Date/Time: 03/16/2019 (2232) ? Wafer Polishing Lead Worker: [facility] ? Printed Date/Time: 03/16/2019 (22 32) ? PAGE 1 ? Anny d Report ? Procedure Note Alessandra Zee MD - 03/16/2019 EXAM: RADIOLOGY/CHEST PA LAT EX. D/T: 0 03/16/2019 (2228) CLINICAL INFORMATION: possible preop PROCEDURE INFORMATION: Exam: XR Chest, 2 Views Exam date and time: 03/16/2019 00:00 Age: 58 years old Clinical indication: Smoker's cough; Ad ditional info: Possible preop, smoker TECHNIQUE: Imaging protocol: XR of the chest Views: 2 views. COMPARISON: CR ([id number], CHEST, CHEST PA) 017 11:40 FINDINGS: Lungs: Low lung volumes. No airspace co nsolidation. Slight vascular and interstitial crowding prob ably relating to low lung volumes. Pleural space: No pleural effusion. No pneumothorax. Heart/Mediastinum: No cardiomegaly. Bones/joints: No acute fracture. Other findings: Right upper quadrant cl ips, probable cholecystectomy. IMPRESSION: No acute cardiopulmonary pathology. REPORT SIGNED IN OTHER VENDOR SYSTEM 03/16/2019 Reported By: Alessandra Zee MD CC: Transcribed Date/Time: 03/16/2019 (2231 ) Wafer Polishing Lead Worker: Printed Date/Time: 03/16/2019 (2231) PAGE 1 Signed Report Performing Organization Address City/State/ZIP Code Phon e Number [facility] RADIOLOGY CT ABDOMEN PELVIS W CONTRAST (03/16/2019 22:02 EST) Specimen Narrative [facility] RADIOLOG[facility] - 03/16/2019 22:02 EST ? AN ADDENDUM IS INCLUDED ON THIS REPORT ? ADDENDUM ? THIS REPORT CONTAINS FINDINGS DEQUAN T MAY BE CRITICAL TO PATIENT ? CARE. The pertinent findings were verbally communicated via ? telephone conference with MONICA VILLASENOR at 22:02 EST on ? 03/16/2019. The findings were ackno wledged and understood. ? ADDEND UM SIGNED IN OTHER VENDOR SYSTEM 03/16/2019 ?Reported B y: Alessandra Zee MD ?Transcribe d: 03/16/2019 (2202) [facility] ?REPORT ? EXAM: CAT SCAN/ABDOMEN PELVIS WIT H CONTRA EX. D/ (2125) ? CLINICAL INFORMATION: ? worsening diverticulitis ? PROCEDURE INFORMATION: ? Exam: CT Abdomen And Pelvis With Contrast ? Exam date and time: 03/16/2019 20:3 9 ? Age: 58 years old ? Clinical indication: Other: Worse brock diverticulitis; Prior ? surgery; Surgery date: 6+ months; Surgery type: Appy, reina, ? hysterectomy, hernia repair ? TECHNIQUE: ? Imaging protocol: Computed tomogr [...] rast volume: 100 ml; Contrast ? route: IV; ? COMPARISON: ? CT ABDOMEN PELVIS WITH CONTRAST 1 13:35 ? FINDINGS: ? Lungs: Minimal dependent subsegme ntal atelectasis. ? Liver: Similar mild hepatomegaly, 22 cm craniocaudad. ? Gallbladder and bile ducts: Reina cystectomy. ? Pancreas: A truncated appearance of the distal pancreas probably ? surgical resection and appearing similar to the previous study. ? No pancreatic ductal dilation. ? Spleen: No splenomegaly or focal lesions. ? Adrenals: No mass. ? Kidneys and ureters: A benign-quinn earing 5 mm left renal probable ? cyst similar to the previous stud y, no dedicated imaging follow ? up indicated in the absence of cl inically suspicious findings. ? No renal masses or hydronephrosis bilaterally. ? Stomach and bowel: Redemonstratio n of significant wall ? thickening and diverticular infla mmation in the mid to distal ? sigmoid colon, overall slight inc rease in wall thickening ? PAGE 1 ? Anny d Report ? (CONTINUED) ? AN ADDENDUM IS INC LUDED ON THIS REPORT ? particularly distal aspect of the inflamed segment. No colonic ? obstruction. Extensive descending and sigmoid diverticulosis ? again seen. Proximal colon is unr emarkable. No acute pathology ? in the small bowel. ? Appendix: No evidence of appendic itis. ? Intraperitoneal space: Significan t worsening of a sigmoid ? diverticulitis, now involving a m oderate amount of mesenteric ? gas in the sigmoid colon mesenter y, dominant region ? approximately 6 x 5 cm, as well a s a new very small associated ? paracolic abscess, 2 x 2 centimet ers. Extension of mesenteric ? gas more cephalad than on the pre vious study however there is no ? rafa upper pneumoperitoneum. ? Vasculature: See Reproductive Fin ding. ? Lymph nodes: No significantly enl arged lymph nodes. ? Bladder: Unremarkable as visualiz ed. ? Reproductive: Similar minor dilat ion distal aorta with no ? pressure. Mild aortoiliac atheros clerosis. Hysterectomy. ? Redemonstration of a low density 4 x 5 cm left adnexal cystic ? structure for which workup with p elvic ultrasound or MRI is ? recommended given the presumed po stmenopausal age if not ? previously performed. Similar sin ce the recent prior study. ? Bones/joints: A chronic appearing mild anterolisthesis L5 over ? S1 in the setting of significant degenerative changes in the ? lumbar spine. No acute fracture o r subluxation. ? Soft tissues: No suspicious lesio ns. ? Other findings: Pelvic edema over all has worsened. New mild ? presacral edema. ? IMPRESSION: ? 1. Significant worsening of known sigmoid diverticulitis. ? Increased mesenteric gas, predomi nantly confined to the sigmoid ? mesentery. A new 2 x 2 centimeter paracolic abscess. ? 2. Incidental findings as describ ed are similar to the recent ? prior study. ? REPORT SIGNED IN OTHER VENDOR SYSTEM 03/16/2019 ?Reported B y: Alessandra Zee MD ? CC: ? Transcribed Date/Time: 03/16/2019 (2201) ? Wafer Polishing Lead Worker: ? Printed Date/Time: 03/16/2019 (07 05) ? PAGE 2 ? Anny d Report ? Procedure Note Alessandra Zee MD - 03/16/2019 AN ADDENDUM IS INCLUDED ON THIS REPO RT ADDENDUM THIS REPORT CONTAINS FINDINGS THAT MAY BE CRITICAL TO PATIENT CARE. The pertinent findings were verba lly communicated via telephone conference with JORGE VILLASENOR at 22:02 EST on 03/16/2019. The findings were acknowledge d and understood. ADDENDUM SIGNED IN OTHER VENDOR SYS TEM 03/16/2019 Reported By: Alessandra Zee MD Transcribed: 03/16/2019 (2201) [facility] REPORT EXAM: CAT SCAN/ABDOMEN PELVIS WITH CONT RA EX. D/ (2124) CLINICAL INFORMATION: worsening diverticulitis PROCEDURE INFORMATION: Exam: CT Abdomen And Pelvis With Contra st Exam date and time: 03/16/2019 20:39 Age: 58 years old Clinical indication: Other: Worsening d iverticulitis; Prior surgery; Surgery date: 6+ months; Surge ry type: Appy, reina, hysterectomy, hernia repair TECHNIQUE: Imaging protocol: Computed tomography o f [...] Contrast v olume: 100 ml; Contrast route: IV; COMPARISON: CT ABDOMEN PELVIS WITH CONTRAST 019 13:35 FINDINGS: Lungs: Minimal dependent subsegmental a telectasis. Liver: Similar mild hepatomegaly, 22 cm craniocaudad. Gallbladder and bile ducts: Cholecystec maria. Pancreas: A truncated appearance of the distal pancreas probably surgical resection and appearing simila r to the previous study. No pancreatic ductal dilation. Spleen: No splenomegaly or focal lesion s. Adrenals: No mass. Kidneys and ureters: A benign-appearing 5 mm left renal probable cyst similar to the previous study, no dedicated imaging follow up indicated in the absence of clinical ly suspicious findings. No renal masses or hydronephrosis bilat erally. Stomach and bowel: Redemonstration of s ignificant wall thickening and diverticular inflammatio n in the mid to distal sigmoid colon, overall slight increase in wall thickening PAGE 1 Signed Report (CONTINUED) AN ADDENDUM IS INCLUDED ON THIS REPO RT particularly distal aspect of the infla med segment. No colonic obstruction. Extensive descending and s igmoid diverticulosis again seen. Proximal colon is unremarka ble. No acute pathology in the small bowel. Appendix: No evidence of appendicitis. Intraperitoneal space: Significant wors ening of a sigmoid diverticulitis, now involving a moderat e amount of mesenteric gas in the sigmoid colon mesentery, dom inant region approximately 6 x 5 cm, as well as a ne w very small associated paracolic abscess, 2 x 2 centimeters. E xtension of mesenteric gas more cephalad than on the previous study however there is no rafa upper pneumoperitoneum. Vasculature: See Reproductive Finding. Lymph nodes: No significantly enlarged lymph nodes. Bladder: Unremarkable as visualized. Reproductive: Similar minor dilation di stal aorta with no pressure. Mild aortoiliac atheroscleros is. Hysterectomy. Redemonstration of a low density 4 x 5 cm left adnexal cystic structure for which workup with pelvic ultrasound or MRI is recommended given the presumed postmeno pausal age if not previously performed. Similar since the recent prior study. Bones/joints: A chronic appearing mild anterolisthesis L5 over S1 in the setting of significant degene rative changes in the lumbar spine. No acute fracture or subl uxation. Soft tissues: No suspicious lesions. Other findings: Pelvic edema overall hammond s worsened. New mild presacral edema. IMPRESSION: 1. Significant worsening of known sigmo id diverticulitis. Increased mesenteric gas, predominantly confined to the sigmoid mesentery. A new 2 x 2 centimeter parac olic abscess. 2. Incidental findings as described are similar to the recent prior study. REPORT SIGNED IN OTHER VENDOR SYSTEM 03/16/2019 Reported By: Alessandra Zee MD CC: Transcribed Date/Time: 03/16/2019 (2201 ) Wafer Polishing Lead Worker: Printed Date/Time: 03/16/2019 (2201) PAGE 2 Signed Report Performing Organization Address City/State/ZIP Code Phon e Number [facility] documented in this encounter Visit Diagnoses Not on filedocumented in this encounter Care Teams Chemical Waste Management Technician Relationship Specialty Start Date End Date Hanane Martinez MD PCP - General 02/09/19 04/03/21 None, Provider PCP - General 04/04/21 documented as of this encounter
--- OUTSIDE RECORDS SUMMARY | 2021-09-27 14:48 | XMS_ITS | Encounter Summary ---
:1960 Author Organization [facility] Address [address] [place] [address] Care Team Providers Name Role Phone Abhinav Agarwal MD Primary Care Provider Unavailable Encounter Details Date Type Department Care Team Description 06/06/2017 Historical Results [facility] - Darshan Griffith, Only [facility] [place] [facility] [address] [place], [place] [address] [place] [address] [phone] Social History Tobacco Use Types Packs/Day Years Used Date Never Assessed Sex Assigned at Date Recorded Not on file documented as of this encounter Plan of Treatment Not on filedocumented as of this encounter Procedures Procedure Name Priority Date/Time Associated Comments Diagnosis TROPONIN I Routine 06/06/2017 16:20 Results for this EDT procedure are i n the results section. COMPLETE BLOOD COUNT Routine 06/06/2017 16:20 Res ults for this AND DIFFERENTIAL EDT procedure a re in the results section. COMPREHENSIVE Routine 06/06/2017 16:20 Results fo r this METABOLIC PANEL (CMP) EDT proced ure are in the results section. documented in this encounter Results (ABNORMAL) COMPREHENSIVE METABOLIC PANEL (CMP) (06/06/2017 16:20 EDT) ALBUMIN - [facility] 3.6 3.4 - 4.9 [facility] g/dL [facility] ALKALINE 88 38 - 126 U/L [facility] PHOSPHATASE - [facility] BILIRUBIN TOTAL 0.2 0.2 - 1.3 [facility] mg/dL [facility] BUN - [facility] 23 10 - 26 mg/dL [facility] CALCIUM - [facility] 9.1 8.5 - 10.5 [facility] mg/dL [facility] Chloride 105 96 - 110 [facility] mmol/L [facility] CO2 Total 28 22 - 32 mEq/L [facility] CREATININE 0.81 0.52 - 1.04 [facility] mg/dL [facility] eGFR >60 [facility] Comment: [facility] Chronic renal impairment is defined as GFR <60 Multiply result by 1.210 for patients . eGFR calculated using the IDMS-traceable MDRD Study Equation. ??(effective 01/16/2014) Anion Gap 7 0 - 18 [facility] GLUCOSE - [facility] 128 (H) 70 - 100 [facility] mg/dL [facility] Potassium 4.0 3.5 - 5.0 [facility] mEq/L [facility] Sodium 140 136 - 145 [facility] mEq/L [facility] TOTAL PROTEIN - 6.2 6.2 - 8.2 [facility] gm/dL [facility] SGOT/AST - [facility] 25 14 - 36 U/L [facility] SGPT/ALT - [facility] 33 9 - 52 U/L [facility] Specimen Narrative [facility] - 018 16:36 EDT Does PT Have a Latex Allergy? NO Performing Organization Address City/[facility] Code Phon e Number [facility] [address] LAB TROPONIN I (06/06/2017 16:20 EDT) Troponin I <0.012 0.000 - [facility] (ng/mL) Comment: 0.034 ng/mL [facility] Interpretation comments: ??Cutoff for a positive troponin result is set at the 99th percentile of the upper reference limit. ??Elevated troponin must always be interpreted in the context of the clinical presentation. ?Serial troponin testing 3-6 hr from baseline is fav ored over relying on a single troponin level. Specimen Narrative [facility] - 018 17:11 EDT Does PT Have a Latex Allergy? NO Performing Organization Address City/[facility] Code Phon e Number [facility] [address] LAB (ABNORMAL) COMPLETE BLOOD COUNT AND DIFFERENTIAL (06/06/2017 16:20 EDT) Pathologist Sig nature ABSOLUTE NEUTROPHIL 6.83 1.7 - 7.0 [facility] COUN - [facility] 10e3/ul CENTER LAB BASOPHILS - [facility] 0.12 0.0 - 0.3 [facility] 10e3/uL [facility] LAB BASOPHIL - [facility] 1 0 - 2 % [facility] EOS # - [facility] 0.12 0.05 - 0.5 [facility] 10e3/uL [facility] EOSINOPHILS - [facility] 1 0 - 5 % [facility] HEMATOCRIT - [facility] 46.3 34.0 - 47.0 % [facility] HEMOGLOBIN - [facility] 15.3 11.2 - 15.7 [facility] g/dl [facility] LYMPH # - [facility] 4.51 (H) 0.9 - 2.9 [facility] 10e3/uL [facility] LYMPHOCYTES - [facility] 37 20 - 40 % [facility] MEAN CORPUSCULAR HGB 31.0 26 - 34 pg [facility] MEAN CORPUSCULAR HGB 33.0 31 - 36 g/dL [facility] CON[facility] MEAN CELL VOLUME - 93.7 77 - [address] [facility] MONO # - [facility] 0.61 0.3 - 0.9 [facility] 10e3/uL [facility] MONOCYTE - [facility] 5 0 - 12 % [facility] PLATELET COUNT 185 150 - 400 [facility] 10e3/ul [facility] NEUTROPHILS - [facility] 56 40 - 80 % [facility] RED BLOOD COUNT - 4.94 3.8 - [address] [facility] 10e6/ul [facility] LAB RED CELL DISTRI WIDTH 13.6 11.8 - 15.6 % [facility] ME D [facility] WHITE BLOOD COUNT - 12.2 (H) 3.5 - 10.5 [facility] 10e3/ul [facility] LAB Specimen Narrative [facility] - 018 17:10 EDT Does PT Have a Latex Allergy? NO Performing Organization Address City/State/ZIP Code Phon e Number [facility] [address] [place] [address] [facility] documented in this encounter Visit Diagnoses Not on filedocumented in this encounter Care Teams Equal Opportunity Officer Relationship Specialty Start Date End Date Abhinav Agarwal MD PCP - General 01/20/15 02/08/19 documented as of this encounter
--- OUTSIDE RECORDS SUMMARY | 2021-09-27 14:48 | XMS_ITS | Encounter Summary ---
:1960 Author Organization [facility] Address [address] [place] [address] Care Team Providers Name Role Phone Abhinav Agarwal MD Primary Care Provider Unavailable Encounter Details Date Type Department Care Team Description 01/26/2017 Historical Results [facility] - Lana Martinez Only [facility] Radiology SMD Results [address] [place] [address] [phone] (Wo rk) Social History Tobacco Use Types Packs/Day Years Used Date Never Assessed Sex Assigned at Date Recorded Not on file documented as of this encounter Plan of Treatment Not on filedocumented as of this encounter Procedures Procedure Name Priority Date/Time Associated Comments Diagnosis XR CHEST 2 VIEWS 01/26/2017 13:40 Results for this EST procedure are i n the results section. US BREAST LIMITED 01/26/2017 12:44 Result s for this UNILATERAL EST procedure are i n the results section. MA BREAST DIAGNOSTIC 01/26/2017 12:44 Res ults for this ISAAK BILATERAL EST procedure are in the results section. documented in this encounter Results XR CHEST 2 VIEWS (01/26/2017 13:40 EST) Specimen Narrative RADIOLOGY - 01/26/2017 13:43 EST ? EXAM: RADIOLOGY/CHEST (PA ?? LAT) ?EX. D/ (1149) ? CLINICAL INFORMATION: ? R07.89 CHEST WALL PAIN ? (L) CHEST WALL PAIN/TENDERNESS, ? R/O RIB LESION ? CHEST (PA ?? LAT) ? Signs and Symptoms/Comments: ??R0 7.89 CHEST WALL PAIN, (L) CHEST WALL ? PAIN/TENDERNESS, R/O RIB LESION ? Comparisons: 12/21/2015, 9 ? FINDINGS: ? PA and lateral views of the chest were performed. The lungs are ? clear. No pneumothorax or pleural effusion is present. The ? cardiomediastinal silhouette and pulmonary vascularity are normal. No ? displaced rib fracture or destruc tive rib lesion is visible ? radiographically. Mild multilevel thoracolumbar degenerative changes ? are present. Right upper quadrant surgical clips suggest prior ? cholecystectomy. ? IMPRESSION: ? 1. ??No acute cardiopulmonary pro cess. ? 2. ??No findings to explain left chest wall pain. CT (or MR) ? recommended if symptoms persist. ? REPORT SIGNED IN OTHER VENDOR SYSTEM 01/26/2017 ?Reported B y: Noel Silva MD ? CC: ? Transcribed Date/Time: 01/26/2017 (1343) ? Supervisor Safety Deposit: ? Printed Date/Time: 09/01/2018 (13 42) ? PAGE 1 ? Anny d Report ? Procedure Note Noel Silva MD - 01/19/2019 EXAM: RADIOLOGY/CHEST (PA LAT) EX. D/ (1149) CLINICAL INFORMATION: R07.89 CHEST WALL PAIN (L) CHEST WALL PAIN/TENDERNESS, R/O RIB LESION CHEST (PA LAT) Signs and Symptoms/Comments: R07.[address] WALL PAIN, (L) CHEST WALL PAIN/TENDERNESS, R/O RIB LESION Comparisons: 12/21/2015, 01/08/2009 FINDINGS: PA and lateral views of the chest were performed. The lungs are clear. No pneumothorax or pleural effus ion is present. The cardiomediastinal silhouette and pulmon jenaro vascularity are normal. No displaced rib fracture or destructive r ib lesion is visible radiographically. Mild multilevel thora columbar degenerative changes are present. Right upper quadrant surgi mary grace clips suggest prior cholecystectomy. IMPRESSION: 1. No acute cardiopulmonary process. 2. No findings to explain left chest wa ll pain. CT (or MR) recommended if symptoms persist. REPORT SIGNED IN OTHER VENDOR SYSTEM 01/26/2017 Reported By: Noel Silva MD CC: Transcribed Date/Time: 01/26/2017 (0551 ) Supervisor Safety Deposit: Printed Date/Time: 09/01/2018 (3740) PAGE 1 Signed Report Performing Organization Address City/State/ZIP Code Phon e Number RADIOLOGY US BREAST LIMITED UNILATERAL (01/26/2017 12:44 EST) Specimen Narrative RADIOLOGY - 01/26/2017 12:44 EST ? EXAM: ULTRASOUND/UNILATERAL BREAST LIMITE EX. D/ (1124) ? CLINICAL INFORMATION: ? N64.4 (L) BREAST PAIN/TENDERNESS ? LATERAL LOWER QUADRANT ?? (L) JEANNE ST WALL MID ? AXILLARY LINE R/O MASS ? UNILATERAL BREAST LIMITED, MAMMO BILATERAL DX W ISAAK ? SIGNS AND SYMPTOMS/COMMENTS: ??N6 4.4 (L) BREAST PAIN/TENDERNESS, ? LATERAL LOWER QUADRANT ?? (L) JEANNE ST WALL MID, AXILLARY LINE R/O MASS. ? Of note, the patient reports a br oad area of pain radiating from the ? left nipple out laterally. Howeve r, she denies a palpable lump or ? nipple discharge ? COMPARISONS: MAMMOGRAPHY - 2008. ? FINDINGS: ? RIGHT BREAST MAMMOGRAPHY: 2-D (C- view) and 3-D CC and MLO views were ? performed with CAD. ? The breast tissue is of fatty den sity. No suspicious mass, ? calcifications, or architectural distortion is identified. ? LEFT BREAST MAMMOGRAPHY: 2-D (C-v iew) and 3-D CC, XCCL and MLO views ? were performed with CAD. ? The breast tissue is of fatty den sity. The patient denies a focal ? palpable lump, therefore a marker could not be placed. No suspicious ? mass, calcifications, or architec tural distortion is identified. ? LEFT BREAST ULTRASOUND: Targeted ultrasound of the outer half of the ? left breast was performed includi ng the retroareolar breast. ? No sonographic abnormality is alexa ntified in the scanned portion of ? the breast to explain patient's p ain. ? RIGHT BREAST IMPRESSION: BI-RADS Category 1: Normal. ? Normal. ? LEFT BREAST IMPRESSION: BI-RADS C ategory 2: Benign. ? No mammographic or sonographic ab normality identified to explain ? patient's breast pain. ? RECOMMENDATION: Follow-up with re ferring provider as negative imaging ? results should never preclude fur ther evaluation and/or biopsy of any ? clinically suspicious palpable cristina mp. Resume annual mammographic ? screening with next exam to be sc heduled for January 2018. ? FINAL ASSESSMENT: ??SCREENING RIG HT BREAST MAMMOGRAM - Category 1 - ? Negative. ? FINAL ASSESSMENT: ??DIAGNOSTIC LE FT BREAST MAMMOGRAM/ULTRASOUND - ? Category 2 - Benign findings. ? These findings and recommendation s were discussed with the patient by ? PAGE 1 ? Anny d Report ? (CONTINUED) ? the inspector bullet slugs shortly after com pletion of the examination. ? These results will be communicate d to your patient via a lay letter ? from Radiology. ??If any addition al imaging is needed we will contact ? your patient directly. ? REPORT SIGNED IN OTHER VENDOR SYSTEM 01/26/2017 ?Reported B y: Noel Silva MD ? CC: ? Transcribed Date/Time: 01/26/2017 (1244) ? Supervisor Safety Deposit: ? Printed Date/Time: 09/01/2018 (13 42) ? PAGE 2 ? Anny d Report ? Procedure Note Noel Silva MD - 01/19/2019 EXAM: ULTRASOUND/UNILATERAL BREAST LIMI TE EX. D/ (1124) CLINICAL INFORMATION: N64.4 (L) BREAST PAIN/TENDERNESS LATERAL LOWER QUADRANT (L) CHEST WALL M ID AXILLARY LINE R/O MASS UNILATERAL BREAST LIMITED, MAMMO BILATE RAL DX W ISAAK SIGNS AND SYMPTOMS/COMMENTS: N64.4 (L) BREAST PAIN/TENDERNESS, LATERAL LOWER QUADRANT (L) CHEST WALL M ID, AXILLARY LINE R/O MASS. Of note, the patient reports a broad ar ea of pain radiating from the left nipple out laterally. However, she denies a palpable lump or nipple discharge COMPARISONS: MAMMOGRAPHY - 03/06/2009. FINDINGS: RIGHT BREAST MAMMOGRAPHY: 2-D (C-view) and 3-D CC and MLO views were performed with CAD. The breast tissue is of fatty density. No suspicious mass, calcifications, or architectural distor tion is identified. LEFT BREAST MAMMOGRAPHY: 2-D (C-view) a nd 3-D CC, XCCL and MLO views were performed with CAD. The breast tissue is of fatty density. The patient denies a focal palpable lump, therefore a marker could not be placed. No suspicious mass, calcifications, or architectural distortion is identified. LEFT BREAST ULTRASOUND: Targeted ultras ound of the outer half of the left breast was performed including the retroareolar breast. No sonographic abnormality is identifie d in the scanned portion of the breast to explain patient's pain. RIGHT BREAST IMPRESSION: BI-RADS Catego ry 1: Normal. Normal. LEFT BREAST IMPRESSION: BI-RADS Categor y 2: Benign. No mammographic or sonographic abnormal ity identified to explain patient's breast pain. RECOMMENDATION: Follow-up with referrin g provider as negative imaging results should never preclude further e valuation and/or biopsy of any clinically suspicious palpable lump. Re sume annual mammographic screening with next exam to be schedule d for January 2018. FINAL ASSESSMENT: SCREENING RIGHT BREAS T MAMMOGRAM - Category 1 - Negative. FINAL ASSESSMENT: DIAGNOSTIC LEFT BREAS T MAMMOGRAM/ULTRASOUND - Category 2 - Benign findings. These findings and recommendations were discussed with the patient by PAGE 1 Signed Report (CONTINUED) the inspector bullet slugs shortly after completio n of the examination. These results will be communicated to y our patient via a lay letter from Radiology. If any additional imagi ng is needed we will contact your patient directly. REPORT SIGNED IN OTHER VENDOR SYSTEM 01/26/2017 Reported By: Noel Silva MD CC: Transcribed Date/Time: 01/26/2017 (3176 ) Supervisor Safety Deposit: Printed Date/Time: 09/01/2018 (6845) PAGE 2 Signed Report Performing Organization Address City/State/ZIP Code Phon e Number RADIOLOGY MA BREAST DIAGNOSTIC ISAAK BILATERAL (01/26/2017 12:44 EST) Specimen Narrative [facility] RADIOLOGY - 01/26/2017 12:44 EST ? EXAM: MAMMOGRAM/MAMMO BILATERAL DX W ISAAK EX. D/ (1053) ? CLINICAL INFORMATION: ? N64.4 (L) BREAST PAIN ? (R) SCREENING ? UNILATERAL BREAST LIMITED, MAMMO BILATERAL DX W ISAAK ? SIGNS AND SYMPTOMS/COMMENTS: ??N6 4.4 (L) BREAST PAIN/TENDERNESS, ? LATERAL LOWER QUADRANT ?? (L) JEANNE ST WALL MID, AXILLARY LINE R/O MASS. ? Of note, the patient reports a br oad area of pain radiating from the ? left nipple out laterally. Howeve r, she denies a palpable lump or ? nipple discharge ? COMPARISONS: MAMMOGRAPHY - 2008. ? FINDINGS: ? RIGHT BREAST MAMMOGRAPHY: 2-D (C- view) and 3-D CC and MLO views were ? performed with CAD. ? The breast tissue is of fatty den sity. No suspicious mass, ? calcifications, or architectural distortion is identified. ? LEFT BREAST MAMMOGRAPHY: 2-D (C-v iew) and 3-D CC, XCCL and MLO views ? were performed with CAD. ? The breast tissue is of fatty den sity. The patient denies a focal ? palpable lump, therefore a marker could not be placed. No suspicious ? mass, calcifications, or architec tural distortion is identified. ? LEFT BREAST ULTRASOUND: Targeted ultrasound of the outer half of the ? left breast was performed includi ng the retroareolar breast. ? No sonographic abnormality is alexa ntified in the scanned portion of ? the breast to explain patient's p ain. ? RIGHT BREAST IMPRESSION: BI-RADS Category 1: Normal. ? Normal. ? LEFT BREAST IMPRESSION: BI-RADS C ategory 2: Benign. ? No mammographic or sonographic ab normality identified to explain ? patient's breast pain. ? RECOMMENDATION: Follow-up with re ferring provider as negative imaging ? results should never preclude fur ther evaluation and/or biopsy of any ? clinically suspicious palpable cristina mp. Resume annual mammographic ? screening with next exam to be sc heduled for January 2018. ? FINAL ASSESSMENT: ??SCREENING RIG HT BREAST MAMMOGRAM - Category 1 - ? Negative. ? FINAL ASSESSMENT: ??DIAGNOSTIC LE FT BREAST MAMMOGRAM/ULTRASOUND - ? Category 2 - Benign findings. ? These findings and recommendation s were discussed with the patient by ? the inspector bullet slugs shortly after com pletion of the examination. ? PAGE 1 ? Anny d Report ? (CONTINUED) ? These results will be communicate d to your patient via a lay letter ? from Radiology. ??If any addition al imaging is needed we will contact ? your patient directly. ? REPORT SIGNED IN OTHER VENDOR SYSTEM 01/26/2017 ?Reported B y: Noel Silva MD ? CC: ? Transcribed Date/Time: 01/26/2017 (9604) ? Supervisor Safety Deposit: ? Printed Date/Time: 09/01/2018 (13 42) ? PAGE 2 ? Anny d Report ? Procedure Note Noel Silva MD - 01/19/2019 EXAM: MAMMOGRAM/MAMMO BILATERAL DX W TO MO EX. D/ (1053) CLINICAL INFORMATION: N64.4 (L) BREAST PAIN (R) SCREENING UNILATERAL BREAST LIMITED, MAMMO BILATE RAL DX W ISAAK SIGNS AND SYMPTOMS/COMMENTS: N64.4 (L) BREAST PAIN/TENDERNESS, LATERAL LOWER QUADRANT (L) CHEST WALL M ID, AXILLARY LINE R/O MASS. Of note, the patient reports a broad ar ea of pain radiating from the left nipple out laterally. However, she denies a palpable lump or nipple discharge COMPARISONS: MAMMOGRAPHY - 03/06/2009. FINDINGS: RIGHT BREAST MAMMOGRAPHY: 2-D (C-view) and 3-D CC and MLO views were performed with CAD. The breast tissue is of fatty density. No suspicious mass, calcifications, or architectural distor tion is identified. LEFT BREAST MAMMOGRAPHY: 2-D (C-view) a nd 3-D CC, XCCL and MLO views were performed with CAD. The breast tissue is of fatty density. The patient denies a focal palpable lump, therefore a marker could not be placed. No suspicious mass, calcifications, or architectural distortion is identified. LEFT BREAST ULTRASOUND: Targeted ultras ound of the outer half of the left breast was performed including the retroareolar breast. No sonographic abnormality is identifie d in the scanned portion of the breast to explain patient's pain. RIGHT BREAST IMPRESSION: BI-RADS Catego ry 1: Normal. Normal. LEFT BREAST IMPRESSION: BI-RADS Categor y 2: Benign. No mammographic or sonographic abnormal ity identified to explain patient's breast pain. RECOMMENDATION: Follow-up with referleslie g provider as negative imaging results should never preclude further e valuation and/or biopsy of any clinically suspicious palpable lump. Re sume annual mammographic screening with next exam to be schedule d for January 2018. FINAL ASSESSMENT: SCREENING RIGHT BREAS T MAMMOGRAM - Category 1 - Negative. FINAL ASSESSMENT: DIAGNOSTIC LEFT BREAS T MAMMOGRAM/ULTRASOUND - Category 2 - Benign findings. These findings and recommendations were discussed with the patient by the inspector bullet slugs shortly after completio n of the examination. PAGE 1 Signed Report (CONTINUED) These results will be communicated to y our patient via a lay letter from Radiology. If any additional imagi ng is needed we will contact your patient directly. REPORT SIGNED IN OTHER VENDOR SYSTEM 01/26/2017 Reported By: Noel Silva MD CC: Transcribed Date/Time: 01/26/2017 (1241 ) Supervisor Safety Deposit: Printed Date/Time: 09/01/2018 (2470) PAGE 2 Signed Report Performing Organization Address City/State/ZIP Code Phon e Number RADIOLOGY documented in this encounter Visit Diagnoses Not on filedocumented in this encounter Care Teams Ocularist Relationship Specialty Start Date End Date Abhinav Agarwal MD PCP - General 01/20/15 02/08/19 documented as of this encounter
--- OUTSIDE RECORDS SUMMARY | 2021-09-27 14:48 | XMS_ITS | Encounter Summary ---
:1960 Author Organization [facility] Address [address] [place] [address] Care Team Providers Name Role Phone Hanane Martinez MD Primary Care Provider [phone] Reason for Visit (Routine) - Receiving Office to Obtain Authorization Specialty Diagnoses / Procedures Referred By Contact Refer red To Contact Procedures Unknown, Provider, CT OUTSIDE IMAGES BODY Phone: Referral ID Status Reason Start Expiration Visits Visits Date Date Requested Authorized [id number] Receiving Office 03/17/2019 1 1 to Obtain Authorization Encounter Details Date Type Department Care Team Description 03/13/2019 Hospital Encounter [facility] Radiology - Main [address] [address] Social History Tobacco Use Types Packs/Day Years Used Date Never Assessed Sex Assigned at Date Recorded Not on file documented as of this encounter Medications at Time of Discharge Medication Sig Dispensed Refills Start Date End Date albuterol (PROAIR HFA) 2 puff(s) inhaled USING 0 12/17/2015 90 mcg/actuation SPACER 4 times a day X inhaler 1 WEEK THEN PRN clindamycin (CLEOCIN) every 6 hours. 0 10/06/2017 09/23/2019 300 mg capsule nicotine (NICODERM CQ) 1 PATCH transdermally 0 03/28/2019 21 mg/24 hr patch once a day documented as of this encounter Discharge Disposition Disposition Code Departure Means Destination Home or Self Care documented in this encounter Plan of Treatment Not on filedocumented as of this encounter Procedures Procedure Name Priority Date/Time Associated Diagnosis Comme nts CT OUTSIDE IMAGES Routine 03/17/2019 11:59 Result s for this BODY EST procedure are i n the results section. documented in this encounter Results CT OUTSIDE IMAGES BODY (03/17/2019 11:59 EST) Specimen Narrative JACQUELYN - 03/17/2019 11:59 EST This result has an attachment that is no t available. This is a non-reportable exam. Procedure Note Reva Barrera - 03/17/2019 This is a non-reportable exam. Performing Organization Address City/State/[facility] Code Phon e Number JACQUELYN documented in this encounter Visit Diagnoses Not on filedocumented in this encounter Care Teams Fiber Optic Assembly Worker Relationship Specialty Start Date End Date Hanane Martinez MD PCP - General 02/09/19 04/03/21 documented as of this encounter
--- OUTSIDE RECORDS SUMMARY | 2021-09-27 14:48 | XMS_ITS | Encounter Summary ---
:1960 Author Organization [facility] Address [address] [place] [address] Care Team Providers Name Role Phone Hanane Martinez MD Primary Care Provider [phone] Encounter Details Date Type Department Care Team Description 03/18/2019 Results Only [facility] Magnolia Hawkins MD Lab - [address] [id number] [place], [place] [id number] [phone] Social History Tobacco Use Types Packs/Day Years Used Date Never Assessed Sex Assigned at Date Recorded Not on file documented as of this encounter Plan of Treatment Not on filedocumented as of this encounter Procedures Procedure Name Priority Date/Time Associated Comments Diagnosis COMPLETE BLOOD COUNT Routine 03/18/2019 6:10 Resu lts for this AND DIFFERENTIAL EST procedure a re in the results section. CREATININE Routine 03/18/2019 6:10 Results for this EST procedure are i n the results section. documented in this encounter Results (ABNORMAL) COMPLETE BLOOD COUNT AND DIFFERENTIAL (03/18/2019 6:10 EST) ABSOLUTE NEUTROPHIL 12.01 (H) 1.7 - 7.0 [facility] COUN - [facility] 10e3/ul CENTER LAB ATYPICAL LYMPHOCYTES 6 % [facility] CENTER LAB BANDS - [facility] 8 (H) 0 - 3 % [facility] EOS # - [facility] 0.18 0.05 - 0.5 [facility] 10e3/uL CENTER LAB EOSINOPHILS - [facility] 1 0 - 5 % [facility] LAB HEMATOCRIT - [facility] 38.3 34.9 - 44.4 % [facility] HEMOGLOBIN - [facility] 12.5 11.6 - 15.2 [facility] g/dl CENTER LAB LYMPH # - [facility] 5.27 (H) 0.9 - 2.9 [facility] 10e3/uL CENTER LAB LYMPHOCYTES - [facility] 23 20 - 40 % [facility] LAB MEAN CORPUSCULAR HGB 30.0 26.7 - 33.3 pg [facility] ME D - [facility] CENTER LAB MEAN CORPUSCULAR HGB 32.6 32.1 - 35.9 [facility] g/dL CENTER LAB MEAN CELL VOLUME - 92.1 81 - 98 fl [facility] MONO # - [facility] 0.72 0.3 - 0.9 [facility] 10e3/uL [facility] MONOCYTE - [facility] 4 0 - 12 % [facility] LAB PLATELET COUNT 317 141 - 377 [facility] 10e3/ul [facility] NEUTROPHILS - [facility] 58 40 - 80 % [facility] LAB RED BLOOD COUNT - 4.16 3.86 - [address].04 [facility] 10e3/ul [facility] RED CELL DISTRI WIDTH 13.5 <14.7 % [facility] CENTER LAB WHITE BLOOD COUNT - 18.2 (H) 4.0 - 12.4 [facility] 10e3/ul [facility] Specimen Performing Organization Address City/[facility] Code Phon e Number [facility] [address] LAB CREATININE (03/18/2019 6:10 EST) CREATININE 0.62 0.52 - 1.04 [facility] mg/dL [facility] eGFR >60 [facility] Comment: CENTER LAB Chronic renal impairment is defined as GFR <60 Multiply result by 1.210 for patients . eGFR calculated using the IDMS-traceable MDRD Study Equation. ??(effective 01/16/2014) Specimen Narrative [facility] - 020 7:33 EST Does PT Have a Latex Allergy? NO Performing Organization Address City/[facility] Code Phon e Number [facility] [address] LAB documented in this encounter Visit Diagnoses Not on filedocumented in this encounter Care Teams Rental Manager Relationship Specialty Start Date End Date Hanane Martinez MD PCP - General 02/09/19 04/03/21 documented as of this encounter
--- OUTSIDE RECORDS SUMMARY | 2021-09-27 14:48 | XMS_ITS | Encounter Summary ---
:1960 Author Organization [facility] Address [address] [place] [address] Care Team Providers Name Role Phone Hanane Martinez MD Primary Care Provider [phone] Encounter Details Date Type Department Care Team Description 03/20/2019 Results Only [facility] Magnolia Hawkins MD Lab - [address] [place] [address] [place], [place] [id number] [phone] Social History Tobacco Use Types Packs/Day Years Used Date Never Assessed Sex Assigned at Date Recorded Not on file documented as of this encounter Plan of Treatment Not on filedocumented as of this encounter Procedures Procedure Name Priority Date/Time Associated Comments Diagnosis COMPLETE BLOOD COUNT Routine 03/20/2019 5:30 Resu lts for this WITH DIFFERENTIAL EST procedure are in (AUTO) the results section. BASIC METABOLIC PANEL Routine 03/20/2019 5:30 Res ults for this (BMP) EST procedure are i n the results section. documented in this encounter Results (ABNORMAL) BASIC METABOLIC PANEL (BMP) (03/20/2019 5:30 EST) BUN - [facility] 6 (L) 10 - 26 mg/dL [facility] CALCIUM - [facility] 7.7 (L) 8.5 - 10.5 [facility] mg/dL [facility] Chloride 103 96 - 110 [facility] mmol/L [facility] CO2 Total 29 22 - 32 mEq/L [facility] CREATININE 0.50 (L) 0.52 - 1.04 [facility] mg/dL [facility] eGFR >60 [facility] Comment: [facility] Chronic renal impairment is defined as GFR <60 Multiply result by 1.210 for patients . eGFR calculated using the IDMS-traceable MDRD Study Equation. ??(effective 01/16/2014) Anion Gap 3 0 - 18 [facility] GLUCOSE - [facility] 195 (H) 70 - 100 mg/dL [facility] Potassium 4.3 3.5 - 5.0 [facility] mEq/L [facility] Sodium 135 (L) 136 - 145 [facility] mEq/L [facility] Specimen Narrative [facility] - 020 7:32 EST Does PT Have a Latex Allergy? NO Performing Organization Address City/State/ZIP Code Phon e Number [facility] [address] LAB (ABNORMAL) COMPLETE BLOOD COUNT WITH DIFFERENTIAL (AUTO) (03/20/2019 5:30 EST) Pathologist Sig nature Gran # 12.4 (H) 2.2 - 8.85 [facility] 10e3/uL [facility] BASO # - [facility] 0.04 0.01 - 0.11 [facility] 10e/uL [facility] BASO % - [facility] 0 0 - 2 % [facility] EOS # - [facility] 0.01 (L) 0.03 - 0.61 [facility] 10e3/ul [place] EOS % - [facility] 0 0 - 5 % [facility] GRAN % - [facility] 81.3 (H) 40 - 80 % [facility] HEMATOCRIT - [facility] 36.9 34.9 - 44.4 % [facility] HEMOGLOBIN - [facility] 11.8 11.6 - 15.2 [facility] g/dl [place] IG# - [facility] 0.28 0 - 0.7 10e3/uL [facility] IG% - [facility] 1.8 (H) 0 - 0.9 % [facility] LYMPH # - [facility] 1.5 1.09 - 3.3 [facility] 10e3/ul [place] LYMPH% - [facility] 9.9 (L) 20 - 40 % [facility] MEAN CORPUSCULAR HGB 29.4 26.7 - 33.3 pg [facility] ME D - [facility] CENTER LAB MEAN CORPUSCULAR HGB 32.0 (L) 32.1 - 35.9 [facility] g/dL [facility] MEAN CELL VOLUME - 91.8 81 - 98 fl [facility] MONO # - [facility] 1.0 (H) 0.1 - 0.8 [facility] 10e3/uL [place] [facility] MONO% - [facility] 6.6 0 - 12 % [facility] PLATELET COUNT 389 (H) 141 - 377 [place] [id number]/ul [facility] RED BLOOD COUNT - 4.02 3.86 - 5.04 [facility] 10e3/ul [place] [facility] RED CELL DISTRI WIDTH 13.5 <14.7 % [facility] WHITE BLOOD COUNT - 15.3 (H) 4.0 - 12.4 [facility] 10e3/[facility] LAB Specimen Performing Organization Address City/State/ZIP Code Phon e Number [facility] [address] [place], [place] [id number] [place] [address] LAB documented in this encounter Visit Diagnoses Not on filedocumented in this encounter Care Teams Integrity Specialist Relationship Specialty Start Date End Date Hanane Martinez MD PCP - General 02/09/19 04/03/21 documented as of this encounter
--- OUTSIDE RECORDS SUMMARY | 2021-09-27 14:48 | XMS_ITS | Encounter Summary ---
:1960 Author Organization [facility] [place] [address] Care Team Providers Name Role Phone Ally Ortiz Mary MNUOZ Primary Care Provider Encounter Details Date Type Department Care Team Description 09/27/2021 Telephone [facility] Grecia Anglin, [place] [address] Social History Tobacco Use Types Packs/Day Years Used Date Current Every Day Smoker Cigarettes 0.5 40 Smokeless Tobacco: Never Used Alcohol Use Standard Drinks/Week Comments Never 0 (1 standard drink = 0.6 oz pure alcoho l) almost 20 years Alcohol Habits Answer Date Recorded How often do you have a drink containing alcohol? Never 08/18/2019 How many drinks containing alcohol do you have on a Not aske d typical day when you are drinking? How often do you have six or more drinks on one Not asked occasion? Comment: almost 20 years 08/18/2019 Sex Assigned at Date Recorded Not on file documented as of this encounter Miscellaneous Notes Telephone Encounter - Grecia Anglin RN - 09/27/2021 2:27 PM EDT GENA Barrera from Jahaira's PCP office ([facility]) called to inform us that Jahaira had called them today to try and get imaging done through us. Holly spoke with the patient and instructed her to go to the local ED as that was a more appropriate place to be evaluated/get imaging done todaygiven the patient new onset of symtoms. The patient agreed with this plan and will present to [facility] ED today. documented in this encounter Plan of Treatment Upcoming Encounters Date Type Specialty Care Team Description 09/30/2021 Office Visit General Surgery Paloma Mota APRN [facility] ER GENERAL SURGERY [place], [place] [address] (Wo rk) 09/30/2021 Office Visit Infectious Diseases Werner Harrell MD [facility] ER INFECTIOUS DISEA [place], [place] [address] (Wo rk) documented as of this encounter Visit Diagnoses Not on filedocumented in this encounter Care Teams Court Deputy Relationship Specialty Start Date End Date Ally Ortiz APRN PCP - General Internal Medicine 04/24/21 [address] [place] [address] documented as of this encounter
--- OUTSIDE RECORDS SUMMARY | 2021-09-27 14:48 | XMS_ITS | Encounter Summary ---
:1960 Author Organization [facility] Address [address] [place] [address] Care Team Providers Name Role Phone Abhinav Agarwal MD Primary Care Provider Unavailable Encounter Details Date Type Department Care Team Description 03/27/[address] [facility] Wiley Only [facility] Radiology Resul ts MD Yazmin 130 [facility] [address] [phone] Social History Tobacco Use Types Packs/Day Years Used Date Never Assessed Sex Assigned at Date Recorded Not on file documented as of this encounter Plan of Treatment Not on filedocumented as of this encounter Procedures Procedure Name Priority Date/Time Associated Diagnosis Comme nts XR KNEE 4 OR MORE 03/27/2015 22:27 Result s for this VIEWS EST procedure are i n the results section. XR KNEE LEFT 4 OR 03/27/2015 22:26 Result s for this MORE VIEWS EST procedure are i n the results section. documented in this encounter Results XR KNEE 4 OR MORE VIEWS (03/27/2015 22:27 EST) Specimen Narrative [facility] - 03/27/2015 22:27 EST ? EXAM: RADIOLOGY/[id number]+VIE EX. D/ (2206) ? CLINICAL INFORMATION: ? PAIN, TRAUMA ? EXAM: ? XR Right Knee Complete, 4 or M ore Views. ? CLINICAL HISTORY: ? 54 years old, female; Pain; Kn ee; Right; Additional info: ? Pain, trauma ? TECHNIQUE: ? Four or more views of the righ t knee. ? COMPARISON: ? No relevant prior studies tito lable. ? FINDINGS: ? There is no evidence of fractu re. The joint spaces are well ? maintained. There is no bony dest ruction. ??There is no joint ? effusion. ? IMPRESSION: ? No evidence of fracture. ? REPORT SIGNED IN OTHER VENDOR SYSTEM 03/27/2015 ?Reported B y: Suman Bledsoe MD ? CC: ? Transcribed Date/Time: 03/27/2015 (2227) ? Fibre Optic Cable Splicer: ? Printed Date/Time: 08/25/2018 (12 33) ? PAGE 1 ? Anny d Report ? Procedure Note Suman Bledsoe MD - 01/19/2019 EXAM: RADIOLOGY/[id number]+V IE EX. D/ (2206) CLINICAL INFORMATION: PAIN, TRAUMA EXAM: XR Right Knee Complete, 4 or More Views . CLINICAL HISTORY: 54 years old, female; Pain; Knee; Right ; Additional info: Pain, trauma TECHNIQUE: Four or more views of the right knee. COMPARISON: No relevant prior studies available. FINDINGS: There is no evidence of fracture. The j oint spaces are well maintained. There is no bony destructio n. There is no joint effusion. IMPRESSION: No evidence of fracture. REPORT SIGNED IN OTHER VENDOR SYSTEM 03/27/2015 Reported By: Suman Bledsoe MD CC: Transcribed Date/Time: 03/27/2015 (7007 ) [employer] Cable Splicer: Printed Date/Time: 08/25/2018 (2988) PAGE 1 Signed Report Performing Organization Address City/State/ZIP Code Phon e Number [facility] XR KNEE LEFT 4 OR MORE VIEWS (03/27/2015 22:26 EST) Specimen Narrative [facility] - 03/27/2015 22:27 EST ? EXAM: RADIOLOGY/[id number]+VIEW EX. D/ (4598) ? CLINICAL INFORMATION: ? PAIN, TRAUMA ? EXAM: ? XR Left Knee Complete, 4 or Mo re Views. ? CLINICAL HISTORY: ? 54 years old, female; Pain; Kn ee; Left; Additional info: Pain, ? trauma ? TECHNIQUE: ? Four or more views of the left knee. ? COMPARISON: ? No relevant prior studies tito juárez. ? FINDINGS: ? No fractures are identified. ? ?The joint spaces are ? well-maintained. ??There is a morteza nt effusion. ??There is no bony ? destruction. ? IMPRESSION: ? Joint effusion. ? No evidence of fracture. ? REPORT SIGNED IN OTHER VENDOR SYSTEM 03/27/2015 ?Reported B y: Suman Bledsoe MD ? CC: ? Transcribed Date/Time: 03/27/2015 (7) ? Fib[employer] Optic Cable Splicer: ? Printed Date/Time: 08/25/2018 (12 33) ? PAGE 1 ? Anny d Report ? Procedure Note Suman Bledsoe MD - 01/19/2019 EXAM: RADIOLOGY/[id number]+ EW EX. D/ (6) CLINICAL INFORMATION: PAIN, TRAUMA EXAM: XR Left Knee Complete, 4 or More Views. CLINICAL HISTORY: 54 years old, female; Pain; Knee; Left; Additional info: Pain, trauma TECHNIQUE: Four or more views of the left knee. COMPARISON: No relevant prior studies available. FINDINGS: No fractures are identified. The joint spaces are well-maintained. There is a joint effus ion. There is no bony destruction. IMPRESSION: Joint effusion. No evidence of fracture. REPORT SIGNED IN OTHER VENDOR SYSTEM 03/27/2015 Reported By: Suman Bledsoe MD CC: Transcribed Date/Time: 03/27/2015 (2226 ) Fib[employer] Optic Cable Splicer: Printed Date/Time: 08/25/2018 (4232) PAGE 1 Signed Report Performing Organization Address City/State/ZIP Code Phon e Number [facility] documented in this encounter Visit Diagnoses Not on filedocumented in this encounter Care Teams Gas Pumper Relationship Specialty Start Date End Date Abhinav Agarwal MD PCP - General 01/20/15 02/08/19 documented as of this encounter
--- OUTSIDE RECORDS SUMMARY | 2021-09-27 14:48 | XMS_ITS | Encounter Summary ---
:1960 [place] [address] Care Team Providers Name Role Phone Gabriele Ortizkwadwo Hernandez APRN Primary Care Provider Encounter Details Date Type Department Care Team Description 09/27/2021 Notes Only General Surgery at [facility] Paloma Mota APRN [facility] [place] [phone] GENERAL SURGERY [phone] [place], [place] [address] (Wo rk) Social History Tobacco Use Types [...] on file documented as of this encounter Progress Notes Paloma Mota APRN - 09/27/2021 1:02 PM EDT Quinton Fermin logging operations inspector RN from [facility] called to report increased erythema, and tenderness from the periwound tissue as well as new purulence from the pt's abdominal wound. From my conversation with him, is sounds as though this is an acute change. I have asked him to have the pt report to her local ED or [facility] ED for further evaluation as she may need labs and repeat imaging. He told me he would do this. I have discussed the above with Dr Frost documented in this encounter Plan of Treatment Upcoming Encounters Date Type Specialty Care Team Description 09/30/2021 Office Visit General Surgery Paloma Mota APRN [facility] GENERAL SURGERY [place], [place] [address] (Wo rk) 09/30/2021 Office Visit Infectious Diseases Werner Harrell MD [facility] INFECTIOUS DISEA [place], [place] [address] (Wo rk) documented as of this encounter Visit Diagnoses Not on filedocumented in this encounter Care Teams Pan Operator Relationship Specialty Start Date End Date Ally Ortiz APRN PCP - General Internal Medicine 04/24/[address] [place] [place] [address] documented as of this encounter
--- OUTSIDE RECORDS SUMMARY | 2021-09-27 14:48 | XMS_ITS | Clinical Summary ---
:1960 Author Organization [facility] [place] [address] Care Team Providers Name Role Phone Ally Ortiz APRN Primary Care Provider Allergies Active Allergy Reactions Severity Noted Date Comments Aspirin Nausea Only 09/02/2021 Medications Medication Sig Dispensed Refills Start Date End Date Status atorvastatin (Lipitor) 20 Take 20 mg by 0 06/11/2021 Active mg Tablet mouth every evening. hydroCHLOROthiazide Take 25 mg by 0 04/22/2021 Active (Hydrodiuril) 25 mg mouth daily. Tablet clopidogreL (Plavix) 75 Take 75 mg by 0 Active mg Tablet mouth daily. metroNIDAZOLE (Flagyl) Take 1 tablet 123 tablet 0 08/22/2021 0 Active 500 mg Tablet by mouth 3 2 times daily for 41 days. doxycycline monohydrate Take 1 capsule 82 capsule 0 08/22/2021 Active (Monodox) 100 mg Capsule by mouth 2 2 times daily for 41 days. gabapentin (Neurontin) Take 2 90 capsule 12 09/19/2021 Active 300 mg Capsule capsules by mouth 3 times daily. HYDROmorphone (Dilaudid) Take 1 tablet 20 tablet 0 09/19/2021 Active 2 mg Tablet by mouth every 4 hours as needed for Pain (for wound changes only). Active Problems Patient Care Coordination Note Formatting of this note might be differe nt from the original. Has used: [facility] PHONE: [phone] FAX: [phone] Problem Noted Date Abscess of abdominal wall 09/02/2021 Wound infection after surgery 08/12/2021 Recurrent abdominal hernia 07/22/2021 Incarcerated ventral hernia 04/25/2021 Incarcerated hernia 04/25/2020 Ostomy nurse consultation 07/26/2019 Resolved Problems Problem Noted Date Resolved Date Attention to colostomy 09/05/2019 10/18/2019 Diverticulitis 08/15/2019 10/18/2019 Encounters Date Type Specialty Care Team Description 09/27/2021 Telephone General Surgery Grecia Anglin RN 09/27/2021 Notes Only General Surgery Paloma Mota, VASCULAR NURSE 09/13/2021 Anesthesia Event Surgery Paloma Daniels MD Spence, Brian C, MD 09/13/2021 Surgery Surgery Ai Arriaza, EDILMAEME NT SKIN AND MD SUBCU, FIRST 20 SQ CM, ABDOMEN (WR VU 1.01) 09/11/2021 Anesthesia Event Hugh Cevallos MD 09/02/2021 - Hospital Encounter Fred Delong MD Abscess; 09/19/2021 Jerod Frost, Wound infe ction after surgery; Abscess of abdominal wall Negro Watters, Joshua Jaquez MD Briggs, Alexandra, Gabriel Fairchild MD 09/02/2021 Orders Only Radiology Jerod Nieto, DO 09/02/2021 Telephone General Surgery Hanane Moralez, GENA 08/19/2021 Anesthesia Event Surgery Hailey Pérez MD Fillingham, Jacquelyn N, EXPANDED DUTY DENTAL ASSISTANT 08/19/2021 Surgery Surgery Jerod Frost, SECONDARY CLOSURE SURGICAL WOUND OR DEHISCENCE, EXTENSIVE OR COMPLICATED, TR UNK (WRVU 12.04) 08/17/2021 Anesthesia Event Surgery Joan Lepe MD Grua, Bengt J, MD 08/17/2021 Surgery Surgery Negro Watters, DEBRIDEMENT SKIN AND SUBCU, FIRST 20 SQ CM, ABDOMEN (WR VU 1.01) 08/15/2021 Anesthesia Event Surgery Adonis Piedra, Patricia Bradley, EXPANDED DUTY DENTAL ASSISTANT 08/15/2021 Surgery Surgery Gabriel Daniel MD MODIFIER WOUND VAC 08/12/2021 Anesthesia Event Surgery Shola Montilla, Patricia Funes MD 08/12/2021 Surgery Surgery Joshua Che I & D Alin MARTÍNEZ MD SIMPLE OR SINGL E, TRUNK (WRVU 1.2 2) 08/12/2021 - Hospital Encounter Camacho, Wound inf ection 08/22/2021 Viviana Abrams MD after surgery Joshua Che MD Rhynhart, Kurt K, MD Briggs, Alexandra, MD 08/07/2021 Emergency Emergency Left lower quad rant abdominal pain; Medicine Hypokalemia; History of vent ral hernia repair 08/07/2021 Office Visit General Surgery Paloma Mota, Jennifer y follow-up VASCULAR NURSE 08/07/2021 Notes Only General Surgery Paloma Mota, VASCULAR NURSE 2021 Anesthesia Event Surgery Azar Dent MD Cahill, Emily, HAIDER 2021 Surgery Surgery Negro Watters, HERNIA DANIELITO RUIZ MD VENTRAL OR INCISIONAL, RECURRENT, INCARCERATED (W RVU 15.53) 07/22/2021 - Hospital Encounter Negro Watters, Recur rent abdominal 07/25/2021 hernia without obstruction or gangrene, unspecified her geraldo type 07/22/2021 Office Visit General Surgery Negro Watters, Sary t incisional hernia with incarceration 07/18/2021 Ancillary Radiology Ally Ortiz, Procedure VASCULAR NURSE 07/18/2021 Transcribe Orders Primary Care Ally Ortiz, S/P re pair of ventral hernia; VASCULAR NURSE Chronic abdomin al pain from Last 3 Months Family History Medical History Relation Comments Cancer Father pancreas Relation Status Comments Father Social History Tobacco Use Types Packs/Day Years Used Date Current Every Day Smoker Cigarettes 0.5 40 Smokeless Tobacco: Never Used Tobacco Cessation: Ready to Quit: Yes Alcohol Use Standard Drinks/Week Comments Never 0 [...] Sign Reading Time Taken Comments Blood Pressure 137/76 09/19/2021 7:55 AM EDT Pulse 64 09/18/2021 12:40 PM EDT Temperature 36.8 ??C (98.2 ??F) 09/19/2021 7:55 AM EDT Respiratory Rate 16 09/19/2021 7:55 AM EDT Oxygen Saturation 96% 09/19/2021 7:55 AM EDT Inhaled Oxygen Concentration - - Weight 97.1 kg (214 lb) 09/02/2021 11:00 PM EDT Height 149.9 cm (4' 11) 09/02/2021 11:00 PM EDT Body Mass Index 43.22 09/02/2021 11:00 PM EDT Plan of Treatment Upcoming Encounters Date Type Specialty Care Team Description 09/30/2021 Office Visit General Surgery Paloma Mota, TAMMY [facility] GENERAL SURGERY [place], [place] [address] (Wo rk) 09/30/2021 Office Visit Infectious Diseases Werner Harrell MD [facility] INFECTIOUS [place], [place] [address] (Wo rk) Health Maintenance Due Date Last Done Comments Covid-19 Vaccine (#1) 07/24/1967 Pneumococcal Vaccine: At-Risk 1968 5-64yrs (1 - PCV) HIV screen 1980 Hepatitis C Screening 1980 Tdap adult 1981 Tetanus vaccine 1981 HPV test 1992 PAP Smear 1992 Breast Cancer Share Decision 2002 Needed Breast Cancer screening 2012 Zoster vaccine (1 of 2) 2012 Advance Directive 2017 Influenza (Flu) vaccine (1 of 1 - 11/14/2021 Influenza standard series) Diabetes Screening (HgbA1C or 09/06/2024 09/06/2021, 2021, Glucose) 09/03/2021, Additional history exists Colonoscopy 08/17/2029 08/18/2019, 08/18/2019 Medical Devices Implanted Type Area Hammer Adjuster Device Shelf Model / Identifier Expiration Serial / Date Lot Stent,Uret,Univ,Soft,5fr,22-32 ([id number]) - [id number] IMPLANTS Righ t: [place] 04/04/2022 [id number] / Implanted: Qty: 1 on 09/14/2019 by Werner Fournier MD at [facility] [employer] / [employer] - [id number] [place] [employer] Graft Soft Tissue [id number] Mesh Square Ov in[employer] ([id number]) (Autoreq) - [id number] IMPLANTS N/A: [employer] - 09/12/2021 [id number] / Implanted: Qty: 1 on 2021 by Negro Watters MD at [facility] Abdomen NOE BIO I / [id number] Procedures Procedure Name Priority Date/Time Associated Comments Diagnosis POCT GLUCOSE Routine 09/19/2021 10:54 Results for this AM EDT procedure are i n the results section. POCT GLUCOSE Routine 09/19/2021 7:52 Results for this AM EDT procedure are i n the results section. POCT GLUCOSE Routine 09/18/2021 8:41 Results for this PM EDT procedure are i n the results section. POCT GLUCOSE Routine 09/18/2021 5:46 Results for this PM EDT procedure are i n the results section. POCT GLUCOSE Routine 09/18/2021 12:42 Results for this PM EDT procedure are i n the results section. POCT GLUCOSE Routine 09/18/2021 8:31 Results for this AM EDT procedure are i n the results section. POCT GLUCOSE Routine 09/17/2021 8:57 Results for this PM EDT procedure are i n the results section. POCT GLUCOSE Routine 09/17/2021 3:29 Results for this PM EDT procedure are i n the results section. POCT GLUCOSE Routine 09/17/2021 11:07 Results for this AM EDT procedure are i n the results section. POCT GLUCOSE Routine 09/17/2021 6:42 Results for this AM EDT procedure are i n the results section. POCT GLUCOSE Routine 09/16/2021 9:04 Results for this PM EDT procedure are i n the results section. POCT GLUCOSE Routine 09/16/2021 4:31 Results for this PM EDT procedure are i n the results section. POCT GLUCOSE Routine 09/16/2021 11:45 Results for this AM EDT procedure are i n the results section. POCT GLUCOSE Routine 09/16/2021 7:01 Results for this AM EDT procedure are i n the results section. POCT GLUCOSE Routine 09/15/2021 9:24 Results for this PM EDT procedure are i n the results section. POCT GLUCOSE Routine 09/15/2021 3:45 Results for this PM EDT procedure are i n the results section. POCT GLUCOSE Routine 09/15/2021 11:29 Results for this AM EDT procedure are i n the results section. POCT GLUCOSE Routine 09/15/2021 7:44 Results for this AM EDT procedure are i n the results section. POCT GLUCOSE Routine 09/14/2021 9:23 Results for this PM EDT procedure are i n the results section. POCT GLUCOSE Routine 09/14/2021 4:28 Results for this PM EDT procedure are i n the results section. POCT GLUCOSE Routine 09/14/2021 11:56 Results for this AM EDT procedure are i n the results section. POCT GLUCOSE Routine 09/14/2021 7:58 Results for this AM EDT procedure are i n the results section. POCT GLUCOSE Routine 09/13/2021 10:30 Results for this PM EDT procedure are i n the results section. DEBRIDEMENT SKIN AND 09/13/2021 8:13 midline wound SUBCU, FIRST 20 SQ CM, PM EDT needing debridemen t ABDOMEN (WRVU 1.01) POCT GLUCOSE Routine 09/13/2021 3:37 Results for this PM EDT procedure are i n the results section. DEBRIDEMENT SKIN AND Routine 09/13/2021 1:21 SUBCU, ABDOMEN PM EDT POCT GLUCOSE Routine 09/13/2021 11:55 Results for this AM EDT procedure are i n the results section. POCT GLUCOSE Routine 09/13/2021 7:38 Results for this AM EDT procedure are i n the results section. POCT GLUCOSE Routine 09/12/2021 8:37 Results for this PM EDT procedure are i n the results section. POCT GLUCOSE Routine 09/12/2021 4:50 Results for this PM EDT procedure are i n the results section. POCT GLUCOSE Routine 09/12/2021 11:44 Results for this AM EDT procedure are i n the results section. POCT GLUCOSE Routine 09/12/2021 8:01 Results for this AM EDT procedure are i n the results section. POCT GLUCOSE Routine 09/11/2021 9:01 Results for this PM EDT procedure are i n the results section. POCT GLUCOSE Routine 09/11/2021 4:22 Results for this PM EDT procedure are i n the results section. POCT GLUCOSE Routine 09/11/2021 12:06 Results for this PM EDT procedure are i n the results section. POCT GLUCOSE Routine 09/11/2021 7:18 Results for this AM EDT procedure are i n the results section. POCT GLUCOSE Routine 09/10/2021 9:38 Results for this PM EDT procedure are i n the results section. POCT GLUCOSE Routine 09/10/2021 6:43 Results for this PM EDT procedure are i n the results section. POCT GLUCOSE Routine 09/10/2021 11:33 Results for this AM EDT procedure are i n the results section. POCT GLUCOSE Routine 09/10/2021 7:29 Results for this AM EDT procedure are i n the results section. POCT GLUCOSE Routine 09/09/2021 8:11 Results for this PM EDT procedure are i n the results section. POCT GLUCOSE Routine 09/09/2021 3:50 Results for this PM EDT procedure are i n the results section. POCT GLUCOSE Routine 09/09/2021 11:49 Results for this AM EDT procedure are i n the results section. POCT GLUCOSE Routine 09/09/2021 7:11 Results for this AM EDT procedure are i n the results section. POCT GLUCOSE Routine 09/08/2021 8:36 Results for this PM EDT procedure are i n the results section. POCT GLUCOSE Routine 09/08/2021 3:26 Results for this PM EDT procedure are i n the results section. POCT GLUCOSE Routine 09/08/2021 12:01 Results for this PM EDT procedure are i n the results section. POCT GLUCOSE Routine 09/08/2021 7:57 Results for this AM EDT procedure are i n the results section. POCT GLUCOSE Routine 09/07/2021 8:39 Results for this PM EDT procedure are i n the results section. POCT GLUCOSE Routine 09/07/2021 5:26 Results for this PM EDT procedure are i n the results section. POCT GLUCOSE Routine 09/07/2021 12:09 Results for this PM EDT procedure are i n the results section. POCT GLUCOSE Routine 09/06/2021 8:12 Results for this PM EDT procedure are i n the results section. POCT GLUCOSE Routine 09/06/2021 4:46 Results for this PM EDT procedure are i n the results section. POCT GLUCOSE Routine 09/06/2021 11:28 Results for this AM EDT procedure are i n the results section. HC PHOSPHORUS, SERUM Routine 09/06/2021 9:09 Resu lts for this AM EDT procedure are i n the results section. HC MAGNESIUM, SERUM Routine 09/06/2021 9:09 Resul ts for this AM EDT procedure are i n the results section. HC VENIPUNCTURE Routine 09/06/2021 9:09 Results f or this AM EDT procedure are i n the results section. POCT GLUCOSE Routine 09/06/2021 7:37 Results for this AM EDT procedure are i n the results section. HC PHOSPHORUS, SERUM Routine 09/06/2021 4:33 Resu lts for this AM EDT procedure are i n the results section. HC MAGNESIUM, SERUM Routine 09/06/2021 4:33 Resul ts for this AM EDT procedure are i n the results section. HC VENIPUNCTURE Routine 09/06/2021 4:33 Results f or this AM EDT procedure are i n the results section. POCT GLUCOSE Routine 09/05/2021 8:03 Results for this PM EDT procedure are i n the results section. POCT GLUCOSE Routine 09/05/2021 4:38 Results for this PM EDT procedure are i n the results section. POCT GLUCOSE Routine 09/05/2021 11:30 Results for this AM EDT procedure are i n the results section. POCT GLUCOSE Routine 09/05/2021 7:15 Results for this AM EDT procedure are i n the results section. POCT GLUCOSE Routine 09/04/2021 8:19 Results for this PM EDT procedure are i n the results section. POCT GLUCOSE Routine 09/04/2021 4:19 Results for this PM EDT procedure are i n the results section. POCT GLUCOSE Routine 09/04/2021 11:30 Results for this AM EDT procedure are i n the results section. POCT GLUCOSE Routine 09/04/2021 7:40 Results for this AM EDT procedure are i n the results section. POCT GLUCOSE Routine 09/03/2021 8:36 Results for this PM EDT procedure are i n the results section. POCT GLUCOSE Routine 09/03/2021 4:35 Results for this PM EDT procedure are i n the results section. DIFFERENTIAL, AUTOMATED Timed 09/03/2021 3:29 R esults for this PM EDT procedure are i n the results section. HEMOGRAM Timed 09/03/2021 3:29 Results for this PM EDT procedure are i n the results section. HC CBC,PLT & AUTO DIFF Timed 09/03/2021 3:29 PM EDT HC PHOSPHORUS, SERUM Routine 09/03/2021 3:29 Resu lts for this PM EDT procedure are i n the results section. HC MAGNESIUM, SERUM Routine 09/03/2021 3:29 Resul ts for this PM EDT procedure are i n the results section. HC VENIPUNCTURE Timed 09/03/2021 3:29 Results f or this PM EDT procedure are i n the results section. POCT GLUCOSE Routine 09/03/2021 12:29 Results for this PM EDT procedure are i n the results section. POCT GLUCOSE Routine 09/03/2021 7:36 Results for this AM EDT procedure are i n the results section. HC VENIPUNCTURE Timed 09/03/2021 1:24 Results f or this AM EDT procedure are i n the results section. URINALYSIS MICROSCOPIC STAT 09/02/2021 10:30 R esults for this EXAM PM EDT procedure are i n the results section. URINALYSIS WITH REFLEX STAT 09/02/2021 10:30 R esults for this CULTURE PM EDT procedure are i n the results section. POCT GLUCOSE Routine 09/02/2021 10:10 Results for this PM EDT procedure are i n the results section. RAPID COVID-19 PCR STAT 09/02/2021 9:31 Result s for this ([facility]) PM EDT procedure are in the results section. HC BLOOD CULTURE- STAT 09/02/2021 7:30 Results for this PM EDT procedure are i n the results section. CT ABDOMEN AND PELVIS W STAT 09/02/2021 6:01 R esults for this CONTRAST PM EDT procedure are i n the results section. HC BLOOD CULTURE- STAT 09/02/2021 5:08 Results for this PM EDT procedure are i n the results section. PHOSPHORUS STAT 09/02/2021 5:07 Results for this PM EDT procedure are i n the results section. MAGNESIUM STAT 09/02/2021 5:07 Results for this PM EDT procedure are i n the results section. SCAN, PERIPHERAL BLOOD STAT 09/02/2021 5:07 Re sults for this PM EDT procedure are i n the results section. DIFFERENTIAL, AUTOMATED STAT 09/02/2021 5:07 R esults for this PM EDT procedure are i n the results section. HEMOGRAM STAT 09/02/2021 5:07 Results for this PM EDT procedure are i n the results section. HC L-LACTATE STAT 09/02/2021 5:07 Results for this PM EDT procedure are i n the results section. BASIC METABOLIC PANEL STAT 09/02/2021 5:07 Res ults for this (NON-FASTING) PM EDT procedure are in the results section. HC CBC,PLT & AUTO DIFF STAT 09/02/2021 5:07 PM EDT POCT GLUCOSE Routine 08/22/2021 7:45 Results for this AM EDT procedure are i n the results section. POCT GLUCOSE Routine 08/22/2021 3:38 Results for this AM EDT procedure are i n the results section. POCT GLUCOSE Routine 08/22/2021 2:04 Results for this AM EDT procedure are i n the results section. POCT GLUCOSE Routine 08/21/2021 10:19 Results for this PM EDT procedure are i n the results section. POCT GLUCOSE Routine 08/21/2021 3:38 Results for this PM EDT procedure are i n the results section. POCT GLUCOSE Routine 08/21/2021 11:22 Results for this AM EDT procedure are i n the results section. POCT GLUCOSE Routine 08/21/2021 7:44 Results for this AM EDT procedure are i n the results section. POCT GLUCOSE Routine 08/21/2021 4:08 Results for this AM EDT procedure are i n the results section. POCT GLUCOSE Routine 08/20/2021 11:31 Results for this PM EDT procedure are i n the results section. POCT GLUCOSE Routine 08/20/2021 8:13 Results for this PM EDT procedure are i n the results section. POCT GLUCOSE Routine 08/20/2021 3:30 Results for this PM EDT procedure are i n the results section. POCT GLUCOSE Routine 08/20/2021 11:09 Results for this AM EDT procedure are i n the results section. HC VENIPUNCTURE Timed 08/20/2021 10:31 Results for this AM EDT procedure are i n the results section. POCT GLUCOSE Routine 08/20/2021 7:27 Results for this AM EDT procedure are i n the results section. POCT GLUCOSE Routine 08/20/2021 5:14 Results for this AM EDT procedure are i n the results section. POCT GLUCOSE Routine 08/19/2021 11:34 Results for this PM EDT procedure are i n the results section. POCT GLUCOSE Routine 08/19/2021 8:26 Results for this PM EDT procedure are i n the results section. POCT GLUCOSE Routine 08/19/2021 6:53 Results for this PM EDT procedure are i n the results section. SCAN DOC: TELEMETRY 08/19/2021 5:52 STRIPS PM EDT SECONDARY CLOSE Routine 08/19/2021 5:20 SURGICAL WOUND OR PM EDT DEHISCENCE, EXTENS/COMPLICAT, TRNK SECONDARY CLOSURE 08/19/2021 4:05 Abdominal wall SURGICAL WOUND OR PM EDT wound DEHISCENCE, EXTENSIVE OR COMPLICATED, TRUNK (WRVU 12.04) POCT GLUCOSE Routine 08/19/2021 12:02 Results for this PM EDT procedure are i n the results section. POCT GLUCOSE Routine 08/19/2021 7:57 Results for this AM EDT procedure are i n the results section. SCAN, PERIPHERAL BLOOD Routine 08/19/2021 5:50 Re sults for this AM EDT procedure are i n the results section. DIFFERENTIAL, AUTOMATED Routine 08/19/2021 5:50 R esults for this AM EDT procedure are i n the results section. HEMOGRAM Routine 08/19/2021 5:50 Results for this AM EDT procedure are i n the results section. HC PHOSPHORUS, SERUM Routine 08/19/2021 5:50 Resu lts for this AM EDT procedure are i n the results section. HC MAGNESIUM, SERUM Routine 08/19/2021 5:50 Resul ts for this AM EDT procedure are i n the results section. BASIC METABOLIC PANEL Routine 08/19/2021 5:50 Res ults for this (NON-FASTING) AM EDT procedure are in the results section. HC C-REACTIVE PROTEIN Routine 08/19/2021 5:50 Res ults for this AM EDT procedure are i n the results section. HC VENIPUNCTURE Routine 08/19/2021 5:50 AM EDT POCT GLUCOSE Routine 08/19/2021 4:39 Results for this AM EDT procedure are i n the results section. POCT GLUCOSE Routine 08/19/2021 12:03 Results for this AM EDT procedure are i n the results section. POCT GLUCOSE Routine 08/18/2021 7:54 Results for this PM EDT procedure are i n the results section. POCT GLUCOSE Routine 08/18/2021 5:22 Results for this PM EDT procedure are i n the results section. POCT GLUCOSE Routine 08/18/2021 12:05 Results for this PM EDT procedure are i n the results section. HC VENIPUNCTURE Timed 08/18/2021 8:45 Results f or this AM EDT procedure are i n the results section. POCT GLUCOSE Routine 08/18/2021 8:28 Results for this AM EDT procedure are i n the results section. POCT GLUCOSE Routine 08/18/2021 4:20 Results for this AM EDT procedure are i n the results section. POCT GLUCOSE Routine 08/17/2021 11:32 Results for this PM EDT procedure are i n the results section. POCT GLUCOSE Routine 08/17/2021 8:02 Results for this PM EDT procedure are i n the results section. POCT GLUCOSE Routine 08/17/2021 4:52 Results for this PM EDT procedure are i n the results section. SCAN DOC: TELEMETRY 08/17/2021 12:28 STRIPS PM EDT POCT GLUCOSE Routine 08/17/2021 12:26 Results for this PM EDT procedure are i n the results section. MODIFIER WOUND VAC 08/17/2021 11:38 Abdominal wall AM EDT wound DEBRIDEMENT SKIN AND 08/17/2021 11:38 Abdominal wall SUBCU, FIRST 20 SQ CM, AM EDT wound ABDOMEN (WRVU 1.01) POCT GLUCOSE Routine 08/17/2021 11:20 Results for this AM EDT procedure are i n the results section. POCT GLUCOSE Routine 08/17/2021 7:53 Results for this AM EDT procedure are i n the results section. DEBRIDEMENT SKIN AND Routine 08/17/2021 7:23 SUBCU, ABDOMEN AM EDT POCT GLUCOSE Routine 08/17/2021 4:12 Results for this AM EDT procedure are i n the results section. POCT GLUCOSE Routine 08/16/2021 11:06 Results for this PM EDT procedure are i n the results section. POCT GLUCOSE Routine 08/16/2021 8:27 Results for this PM EDT procedure are i n the results section. HC C-REACTIVE PROTEIN Routine 08/16/2021 5:44 Res ults for this PM EDT procedure are i n the results section. POCT GLUCOSE Routine 08/16/2021 4:38 Results for this PM EDT procedure are i n the results section. POCT GLUCOSE Routine 08/16/2021 12:22 Results for this PM EDT procedure are i n the results section. POCT GLUCOSE Routine 08/16/2021 7:38 Results for this AM EDT procedure are i n the results section. POCT GLUCOSE Routine 08/16/2021 4:26 Results for this AM EDT procedure are i n the results section. HC VANCOMYCIN Timed 08/16/2021 4:07 Results for this AM EDT procedure are i n the results section. POCT GLUCOSE Routine 08/16/2021 12:24 Results for this AM EDT procedure are i n the results section. POCT GLUCOSE Routine 08/15/2021 7:15 Results for this PM EDT procedure are i n the results section. POCT GLUCOSE Routine 08/15/2021 4:58 Results for this PM EDT procedure are i n the results section. COVID-19 PCR Routine 08/15/2021 3:31 Results for this PM EDT procedure are i n the results section. POCT GLUCOSE Routine 08/15/2021 12:42 Results for this PM EDT procedure are i n the results section. POCT GLUCOSE Routine 08/15/2021 6:21 Results for this AM EDT procedure are i n the results section. PHOSPHORUS Routine 08/15/2021 5:40 Results for this AM EDT procedure are i n the results section. MAGNESIUM Routine 08/15/2021 5:40 Results for this AM EDT procedure are i n the results section. BASIC METABOLIC PANEL Routine 08/15/2021 5:40 Res ults for this (NON-FASTING) AM EDT procedure are in the results section. DEBRIDEMENT SKIN, Routine 08/15/2021 3:52 SUBCU, MUSCLE, ABDOMEN AM EDT DEBRIDEMENT SKIN, 08/15/2021 2:59 Abdominal wall SUBCU, MUSCLE, ABDOMEN AM EDT abscess (WRVU 2.7) MODIFIER WOUND VAC 08/15/2021 2:59 Abdominal wall AM EDT abscess POCT GLUCOSE Routine 08/14/2021 11:26 Results for this PM EDT procedure are i n the results section. POCT GLUCOSE Routine 08/14/2021 7:39 Results for this PM EDT procedure are i n the results section. POCT GLUCOSE Routine 08/14/2021 4:34 Results for this PM EDT procedure are i n the results section. HC VENIPUNCTURE Timed 08/14/2021 12:01 Results for this PM EDT procedure are i n the results section. POCT GLUCOSE Routine 08/14/2021 11:32 Results for this AM EDT procedure are i n the results section. POCT GLUCOSE Routine 08/14/2021 8:03 Results for this AM EDT procedure are i n the results section. EKG 12-LEAD STAT 08/14/2021 4:30 Wound infection Results f or this AM EDT after surgery procedure are in the results section. BASIC METABOLIC PANEL Routine 08/14/2021 3:47 Res ults for this (NON-FASTING) AM EDT procedure are in the results section. HC PHOSPHORUS, SERUM Routine 08/14/2021 3:47 Resu lts for this AM EDT procedure are i n the results section. HC VENIPUNCTURE Routine 08/14/2021 3:47 Results f or this AM EDT procedure are i n the results section. POCT GLUCOSE Routine 08/14/2021 2:58 Results for this AM EDT procedure are i n the results section. POCT GLUCOSE Routine 08/13/2021 9:40 Results for this PM EDT procedure are i n the results section. POCT GLUCOSE Routine 08/13/2021 4:44 Results for this PM EDT procedure are i n the results section. POCT GLUCOSE Routine 08/13/2021 1:54 Results for this PM EDT procedure are i n the results section. POCT GLUCOSE Routine 08/13/2021 11:47 Results for this AM EDT procedure are i n the results section. DIFFERENTIAL, AUTOMATED Routine 08/13/2021 5:54 R esults for this AM EDT procedure are i n the results section. HEMOGRAM Routine 08/13/2021 5:54 Results for this AM EDT procedure are i n the results section. HC HEMOGLOBIN A1C Routine 08/13/2021 5:54 Results for this AM EDT procedure are i n the results section. HC PHOSPHORUS, SERUM Routine 08/13/2021 5:54 Resu lts for this AM EDT procedure are i n the results section. HC MAGNESIUM, SERUM Routine 08/13/2021 5:54 Resul ts for this AM EDT procedure are i n the results section. BASIC METABOLIC PANEL Routine 08/13/2021 5:54 Res ults for this (NON-FASTING) AM EDT procedure are in the results section. HC CBC,PLT & AUTO DIFF Routine 08/13/2021 5:54 AM EDT ANAEROBIC CULTURE Routine 08/12/2021 7:49 Results for this PM EDT procedure are i n the results section. TISSUE CULTURE Routine 08/12/2021 7:49 Results fo r this PM EDT procedure are i n the results section. ANAEROBIC CULTURE Routine 08/12/2021 7:49 Results for this PM EDT procedure are i n the results section. BODY FLUID CULTURE, Routine 08/12/2021 7:49 Resul ts for this AEROBIC PM EDT procedure are i n the results section. HC TISSUE CULTURE Routine 08/12/2021 7:49 PM EDT HC BODY FLUID CULTURE Routine 08/12/2021 7:49 PM EDT SCAN DOC: TELEMETRY 08/12/2021 7:31 STRIPS PM EDT I & D ABSCESS, SIMPLE 08/12/2021 6:17 wound infection OR SINGLE, TRUNK (WRVU PM EDT 1.22) I&D ABSCESS, Routine 08/12/2021 5:45 SIMPLE/SINGLE,TRUNK PM EDT RAPID COVID-19 PCR STAT 08/12/2021 4:02 Result s for this ([facility]) PM EDT procedure are in the results section. CT ABDOMEN AND PELVIS STAT 08/12/2021 2:33 Res ults for this WO CONTRAST PM EDT procedure are i n the results section. BLOOD GAS 2 VENOUS Routine 08/12/2021 2:15 Result s for this PM EDT procedure are i n the results section. DIFFERENTIAL, AUTOMATED STAT 08/12/2021 2:10 R esults for this PM EDT procedure are i n the results section. HEMOGRAM STAT 08/12/2021 2:10 Results for this PM EDT procedure are i n the results section. BASIC METABOLIC PANEL STAT 08/12/2021 2:10 Res ults for this (NON-FASTING) PM EDT procedure are in the results section. HC CBC,PLT & AUTO DIFF STAT 08/12/2021 2:[address] ABDOMEN AND PELVIS STAT 08/07/2021 3:16 Res ults for this WO CONTRAST PM EDT procedure are i n the results section. L-LACTATE2 WHOLE BLOOD Routine 08/07/2021 2:47 Re sults for this PM EDT procedure are i n the results section. DIFFERENTIAL, AUTOMATED STAT 08/07/2021 2:46 R esults for this PM EDT procedure are i n the results section. HEMOGRAM STAT 08/07/2021 2:46 Results for this PM EDT procedure are i n the results section. HC LIPASE STAT 08/07/2021 2:46 Results for this PM EDT procedure are i n the results section. COMPREHENSIVE METABOLIC STAT 08/07/2021 2:46 R esults for this PANEL (NON-FASTING) PM EDT procedur e are in the results section. HC CBC,PLT & AUTO DIFF STAT 08/07/2021 2:46 PM EDT POCT GLUCOSE Routine 07/24/2021 5:33 Results for this AM EDT procedure are i n the results section. HC PHOSPHORUS, SERUM Routine 07/24/2021 5:21 Resu lts for this AM EDT procedure are i n the results section. HC MAGNESIUM, SERUM Routine 07/24/2021 5:21 Resul ts for this AM EDT procedure are i n the results section. HC VENIPUNCTURE Routine 07/24/2021 5:21 Results f or this AM EDT procedure are i n the results section. SCAN DOC: TELEMETRY 2021 5:45 STRIPS PM EDT POCT GLUCOSE Routine 2021 5:40 Results for this PM EDT procedure are i n the results section. IMPLANT MESH FOR Routine 2021 5:06 INCISIONAL OR VENTRAL PM EDT HERNIA REPAIR HERNIA REPAIR,VENTRAL Routine 2021 5:06 OR INCISIONAL, PM EDT RECURRENT, INCARCERATED ANAEROBIC CULTURE Routine 2021 3:37 Results for this PM EDT procedure are i n the results section. ABSCESS/WOUND ASPIRATE Routine 2021 3:37 Re sults for this CULTURE PM EDT procedure are i n the results section. HC GRAM STAIN FOR Routine 2021 3:37 BACTERIA PM EDT IMPLANT MESH FOR 2021 2:35 recurrent ventral INCISIONAL OR VENTRAL PM EDT hernia HERNIA REPAIR (WRVU 4.88) HERNIA REPAIR, VENTRAL 2021 2:35 recurrent ventr al OR INCISIONAL, PM EDT hernia RECURRENT, INCARCERATED (WRVU 15.53) TYPE AND SCREEN Routine 2021 4:29 Results f or this VALIDITY AM EDT procedure are i n the results section. ABORH RECHECK STATUS Routine 2021 4:29 Resu lts for this AM EDT procedure are i n the results section. ANTIBODY SCREEN Routine 2021 4:29 Results f or this AM EDT procedure are i n the results section. ABO/RH TYPING Routine 2021 4:29 Results for this AM EDT procedure are i n the results section. DIFFERENTIAL, AUTOMATED Routine 2021 4:29 R esults for this AM EDT procedure are i n the results section. HEMOGRAM Routine 2021 4:29 Results for this AM EDT procedure are i n the results section. HC ABO-MICROTITER Routine 2021 4:29 AM EDT HC PHOSPHORUS, SERUM Routine 2021 4:29 Resu lts for this AM EDT procedure are i n the results section. HC MAGNESIUM, SERUM Routine 2021 4:29 Resul ts for this AM EDT procedure are i n the results section. COMPREHENSIVE METABOLIC Routine 2021 4:29 R esults for this PANEL (NON-FASTING) AM EDT procedur e are in the results section. HC CBC,PLT & AUTO DIFF Routine 2021 4:29 AM EDT HC PARTIAL Routine 2021 4:29 Results for this THROMBOPLASTIN TIME AM EDT procedur e are in the results section. HC PROTHROMBIN TIME Routine 2021 4:29 Resul ts for this AM EDT procedure are i n the results section. RAPID COVID-19 PCR Routine 07/22/2021 7:21 Result s for this ([facility]) PM EDT procedure are in the results section. SCAN, PERIPHERAL BLOOD Routine 07/22/2021 4:52 Re sults for this PM EDT procedure are i n the results section. DIFFERENTIAL, AUTOMATED Routine 07/22/2021 4:52 R esults for this PM EDT procedure are i n the results section. HEMOGRAM Routine 07/22/2021 4:52 Results for this PM EDT procedure are i n the results section. HC PHOSPHORUS, SERUM Routine 07/22/2021 4:52 Resu lts for this PM EDT procedure are i n the results section. HC MAGNESIUM, SERUM Routine 07/22/2021 4:52 Resul ts for this PM EDT procedure are i n the results section. BASIC METABOLIC PANEL Routine 07/22/2021 4:52 Res ults for this (NON-FASTING) PM EDT procedure are in the results section. HC VENIPUNCTURE Routine 07/22/2021 4:52 PM EDT FILM LIBRARY STORAGE Routine 07/18/2021 3:53 Resu lts for this ONLY CT ABDOMEN AND PM EDT procedur e are in PELVIS the results section. CT SCAN (SCAN) 07/18/2021 12:00 Results f or this AM EDT procedure are i n the results section. from Last 3 Months Results POCT Glucose (09/19/2021 10:54 AM EDT)Only the most recent of122 resultswithin the time period is included. athologist Signature POC Glucose 175 65 - 199 [place] mg/dL [facility] Comment: Supplemental ranges: <140 mg/dL before meals <180 mg/dL all other times of the day Specimen Anatomical Collection Method Collection Time Receive d Time (Source) Location / / Volume Laterality Blood 09/19/2021 10:54 09/19/2021 AM EDT 10:54 AM EDT Gabriel Daniel MD POINT OF CARE TEST ORDERABLE S Performing Organization Address City/State/ZIP Code Phon e Number [address] Phosphorus (09/06/2021 9:09 AM EDT)Only the most recent of11 resultswithin the time period is included. athologist Signature Phosphorus 4.0 2.5 - 4.5 [facility] [place] mg/dL [facility] Specimen Anatomical Collection Method Collection Time Receive d Time (Source) Location / / Volume Laterality Blood 09/06/2021 9:09 AM 2 9:22 EDT AM EDT Resulting Agency Comment Spec In Lab Negro Watters MD CHEMISTRY ORDERABLES Performing Organization Address City/State/ZIP Code Phon e Number [address] Magnesium (09/06/2021 9:09 AM EDT)Only the most recent of11 resultswithin the time period is included. athologist Signature Magnesium 0.73 0.69 - 1.07 [facility] mmol/L [facility] Specimen Anatomical Collection Method Collection Time Receive d Time (Source) Location / / Volume Laterality Blood 09/06/2021 9:09 AM 2 9:22 EDT AM EDT Resulting Agency Comment Spec In Lab Negro Watters MD CHEMISTRY ORDERABLES Performing Organization Address City/State/ZIP Code Phon e Number [address] (ABNORMAL) Basic Metabolic Panel (non-fasting) (09/06/2021 9:09 AM EDT)Only the most recent of12 resultswithin the time period is included. athologist Signature Glucose Lvl 118 65 - 199 [facility] mg/dL [facility] Comment: Diabetes: >=200 mg/dL plus symp toms BUN 23 (H) 8 - 18 mg/dL [facility] Creatinine 0.59 (L) 0.70 - 1.20 mg/dL [facility] Sodium 141 135 - 145 mmol/L [facility] Potassium 4.0 3.5 - 5.0 mmol/L [facility] Comment: Please note: ??Patients with WBC >100,00 0 may have falsely elevated Potassium levels. ??For accurate Potassium quantif ication in these patients send serum separator tube (gold top) for subsequent determinations. ??Contact the Clinical Chemistry Laboratory if there are any qu estions. Chloride 104 98 - 107 mmol/L [facility] CO2 27 22 - 31 mmol/L [facility] Anion Gap 10 5 - 15 mmol/L [facility] Calcium 9.3 8.5 - 10.5 mg/dL [facility] Estimated GFR 104 >=60 mL/min/1.73 m?? [facility] Comment: This patient's estimated GFR was calcula lorraine using the 2020 CKD-EPI equation. The estimated GFR can vary from the morro ured GFR by up to 30% in the absence of rapidly changing kidney function. Assess ment of the estimated GFR is not appropriate when creatinine concentratio ns are rapidly changing. For clinical situations in which a more precise estim ate of GFR is necessary, consider alternative methods of GFR estimation whitmore ch as a 24-hour urine creatinine clearance. Assignment of CKD stage 1-5 for patients with an eGFR near the transition point between stages may be based on clinical assessment of muscle mass and symptoms in addition to eGFR. Specimen Anatomical Collection Method Collection Time Receive d Time (Source) Location / / Volume Laterality Blood 09/06/2021 9:09 AM 2 9:22 EDT AM EDT Resulting Agency Comment Spec In Lab Negro Watters MD CHEMISTRY ORDERABLES Performing Organization Address City/State/[place] [address] (ABNORMAL) Hemogram (09/03/2021 3:29 PM EDT)Only the most recent of8 results within the time period is included. Analysis Performed At Patho logist Time Signature WBC 8.8 4.0 - 9.5 [facility] x10(3)/[facility] LABORATORY RBC 4.05 4.00 - [facility] [place] 5.21 [facility] x10(6)/[facility] LABORATORY Hemoglobin 12.1 11.7 - [facility] 15.5 g/dL [facility] Hematocrit 37.9 35.7 - [facility] 45.8 % [facility] MCV 93.6 82.6 - [facility] 94[facility]4 [facility] LAB[facility]ATORY MCH 29.9 27.1 - [facility] 32.0 pg [facility] MCHC 31.9 31.7 - [facility] 35.0 g/dL [facility] Platelets 296 145 - 357 [facility] x10(3)/[facility] LABORATORY RDWSD 48.1 (H) 37.0 - [facility] 46.0 [facility] LABORATORY RDWCV 14.1 11.5 - [facility] 14.1 % [facility] MPV 9.8 7.6 - 12.9 [facility] LABORATORY nRBC % Auto 0.0 % [facility] nRBC Abs Auto 0.000 0.000 - [facility] 0.000 [facility] x10(3)/[facility] LABORATORY Specimen Anatomical Collection Method Collection Time Receive d Time (Source) Location / / Volume Laterality Blood 09/03/2021 3:29 PM 2 4:08 EDT PM EDT Resulting Agency Comment Spec In Lab Rosmery Moreno MD HEMATOLOGY ORDERABLES Performing Organization Address City/State/[place] [address] (ABNORMAL) Differential, Automated (09/03/2021 3:29 PM EDT)Only the most recent of8 resultswithin the time period is included. Patholo gist Method Time Signature Neutrophils % 51.7 % [facility] Neutr Abs (ANC) 4.57 1.70 - [facility] 6.10 [facility] x10(3)/[facility] LABORATORY Lymphocytes % 31.6 % [facility] Lymphocytes Abs 2.8 0.9 - 3.2 [facility] x10(3)/[facility] LABORATORY Monocytes % 7.7 % [facility] Monocyte Abs 0.7 0.3 - 0.9 [facility] x10(3)/[facility] LABORATORY Eosinophils % 7.8 % [facility] Eosinophils Abs 0.7 (H) 0.0 - 0.4 [facility] x10(3)/[facility] LABORATORY Basophils % 0.9 % [facility] Basophils Abs 0.1 0.0 - 0.1 [facility] x10(3)/[facility] LABORATORY Immature Gran % 0.30 % [facility] Comment: Immature granulocytes(IG's)percentage an d absolute count will include metamyelocytes, myelocytes, and promyelo cytes. Blood smears from CBCs yielding IG's will be scanned manually for concor dance. If this scan disagrees with the automated IG or if promyelocytes are not ed, a manual differential will be performed. Shantell Gran Abs 0.03 0.00 - 0.04 x10(3)/[facility] LABORATORY Specimen Anatomical Collection Method Collection Time Receive d Time (Source) Location / / Volume Laterality Blood 09/03/2021 3:29 PM 2 4:08 EDT PM EDT Resulting Agency Comment Spec In Lab Rosmery Moreno MD HEMATOLOGY ORDERABLES Performing Organization Address City/State/[place] [address] (ABNORMAL) Urinalysis Microscopic Exam (09/02/2021 10:30 PM EDT) P athologist Signature RBC UA 5 (H) 0 - 4 /HPF [facility] WBC UA 9 (H) 0 - 5 /HPF [facility] Squam Epith UA 3 <=4 /HPF [facility] Hyaline Cast 7 (H) 0 - 2 /LPF [facility] Specimen Anatomical Collection Method Collection Time Receive d Time (Source) Location / / Volume Laterality Clean Catch 09/02/2021 10:30 09/02/2021 Urine PM EDT 11:00 PM EDT Resulting Agency Comment Spec In Lab Charly Agrawal MD URINE ORDERABLES Performing Organization Address City/State/[place] [address] (ABNORMAL) Urinalysis with reflex Culture (09/02/2021 10:30 PM EDT) [facility] Method Time Signature Glucose UA Negative Negative [facility] mg/dL [facility] Protein UA Trace (A) Negative [facility] mg/dL [facility] Bilirubin UA Negative Negative [facility] mg/dL [facility] Comment: Clinical correlation required for positi ve Urine Bilirubin results as false positive may occur with some drugs and d rug related products. If a false positive is suspected a serum total bili herring should be considered if clinically indicated. Urobilinogen UA Normal Normal mg/dL [facility] pH UA 6.0 5.0 - 8.0 [facility] Blood UA Negative Negative mg/dL [facility] Ketones UA Negative Negative mg/dL [facility] Nitrite UA Negative Negative [facility] Leukocytes UA Trace (A) Negative [facility] LABORATORY Appearance UA Clear Clear [facility] Spec [place] UA >=1.030 (A) 1.005 - 1.030 [facility] LAB[facility]ATORY Color UA Yellow Yellow [facility] Culture Reflexed No [facility] Specimen Anatomical Collection Method Collection Time Receive d Time (Source) Location / / Volume Laterality Clean Catch 09/02/2021 10:30 09/02/2021 Urine PM EDT 11:00 PM EDT Resulting Agency Comment Spec In Lab Jerod Frost MD URINE ORDERABLES Performing Organization Address City/State/ZIP Code [place] [address] COVID-19 PCR (09/02/2021 9:31 PM EDT)Only the most recent of3 resultswithin the time period is included. [facility] Method Time Signature SARS-CoV-2 Not Detected Not Detected [place] RNA PCR [facility] Comment: This result should be interpreted in com bination with the clinical observations, patient history and epidem iological information. For testing of asymptomatic individuals, assay performa nce characteristics and clinical utility have not been evaluated. Testing for SARS-CoV-2 (Severe acute respiratory syndrome coronavirus 2, form erly known as 2018 novel coronavirus or 2019-nCoV) to aid in the diagnosis of CO VID-19 is performed using the Simplexa COVID-19 Direct Assay by [employer] (powering [employer])noemi Pinpoint MD as authorized by the FDA issued Emergency Use Authorization (EUA). This assay is intended for In-vitro Diagnostic (IVD) use with nasopharyngeal swabs collected from individuals meeting the CDC criteria for testing. Th e assay is performed based on the instructions for use and additional guid ance provided by the FDA. Testing is performed in the Microbiology Laboratory within the Department of Pathology and Laboratory Medicine at [facility], certified under the Clinical Laboratory Improvement Amendmen ts of 1988 (CLIA), 42 U.S.C. section 263a, to perform high complexity tests. Assay performance has been verified according to clinical laboratory regulat ory requirements. Test results are provided above. A resul t of Not Detected indicates that the viral RNA target is not present but does not preclude SARS-CoV-2 infection. False negative results may occur if a sp ecimen is improperly collected, transported or handled; if amplification inhibitors are present; or if inadequate numbers of viral particles ar e present in the specimen. A result of Detected suggests a current or recent infection and the patient is presumed to be infected. Positive and negative pr edictive values for this test are highly dependent on disease prevalence. A result of Invalid indicates the inability to conclusively determine the presence or absence of SARS-CoV-2 RNA in the sample which can be due to a vari ety of factors. Recollection is recommended in the case of an invalid re sult. CDC COVID-19 criteria for testing on hum an specimens and clinical management guidance information are available at [facility] Coronavirus Disease 2019 (COVID-19) webpage under Information fo r Healthcare Professionals (https://www.cdc.gov/coronavirus/2019-nc ov/hcp/index.html). Additional information about this and ot her EUA tests can be found in provider and patient fact sheets at the following FDA website: https://www.fda.gov/medical-devices/clvsxkbhifw-snvwavx-8643-usuuj-45-vqdxjzcrh- nmh-pjduklechvorhw-fmwpluf-devices/czsnh-gikumhhfiza-mrtg SARS-CoV-2 Source [employer]OR LABORATORY TECHNICIAN Swab [facility] Specimen (Source) Anatomical Collection Method Collection Time Re ceived Time Location / / Volume Laterality Nasopharyngeal Swab 09/02/2021 9:31 09/02 PM EDT 10:05 PM EDT Comment: Symptoms->Surveillance Resulting Agency Comment Spec In Lab Ten Delong MD MICROBIOLOGY - GENERAL ORDER [place] Performing Organization Address City/[facility]/[place]IP [place] [address] Blood culture (09/02/2021 7:30 PM EDT)Only the most recent of2 resultswithin the time period is included. [facility] gist Method Time Signature Blood Culture No growth OLGA HDOGE at 5 days. [facility] Specimen Anatomical Collection Method Collection Time Receive d Time (Source) Location / / Volume Laterality Blood 09/02/2021 7:30 PM 8:05 EDT PM EDT Comment: Right AC Resulting Agency Comment Spec In Lab Shira Mcclelland MD MICROBIOLOGY - BLOOD ORDERAB LES Performing Organization Address City/[facility]/ZIP Code Phon e Number [address] CT Abdomen & Pelvis w Contrast (09/02/2021 6:01 PM EDT) Anatomical Region Laterality Modality Abdomen, Pelvis Computed Tomography Specimen (Source) Anatomical Collection Method Collection Time Re ceived Time Location / / Volume Laterality 09/02/2021 6:23 PM EDT Impressions 09/02/2021 6:19 PM EDT 1. ??Interval placement of a catheter in to the subcutaneous fat of the lower anterior abdominal wall. There is persis tent air and fluid in this region although it has improved. Hazy soft tiss ue stranding consistent with ongoing infection/inflammation. Cannot exclude a n enterocutaneous fistula given technique utilized. Correlation with ope rative history is needed as none has been provided. Thank you for letting us participate in the care of this patient. ??If you are a health care provider and have any questi ons regarding this report, please contact the number below. ??For patients who have questions please contact the health career education teacher that requested your imaging first. ? Narrative 09/02/2021 6:19 PM EDT EXAMINATION: CT ABDOMEN AND PELVIS W CONTRAST CLINICAL HISTORY: Abdominal abscess/infe ction suspected TECHNIQUE: Helical CT of the abdomen and pelvis was performed following the intravenous administration of contrast. 120 cc of Omnipaque 350 were given intravenously. Oral contrast was not adm inistered. COMPARISON: 08/12/2021, 04/24/2020 FINDINGS: Lower chest: No basilar pleural or peric ardial effusion. No focal consolidation. Liver: Normal size and density with smoo th contour. Widely patent hepatic and portal veins. No focal lesions. Bile ducts: Nondilated. Gallbladder: Surgically absent Pancreas: Fatty infiltration, most prono unced in the tail, unchanged from 04/2020. No adjacent inflammation. Spleen: Normal Adrenals: Normal. Kidneys: A less than 5 mm low-attenuatio n lesion in each kidney are both unchanged from 04/2020 and remain too sma ll to characterize. There is focal posterior right upper pole scarring. No hydronephrosis or urolithiasis. Urinary Bladder: Normal. Vasculature: 27 mm ectasia of the infrar enal aorta is unchanged. Lymph Nodes: No enlarged lymph nodes. Bowel: No definite dilated small or larg e bowel loops, suboptimally assessed due to lack of contrast. Normal terminal ile um and appendix. Scattered colonic diverticuli are present, most pronounced in the sigmoid colon. Rectosigmoid anastomosis is widely patent. Peritoneum and mesentery: No free intrap eritoneal fluid, loculated collection, or mesenteric inflammation. No free intr aperitoneal air. Abdominal wall: There is a subcutaneous catheter in the ventral subcutaneous fat extending from the right side, with a U- shaped configuration, terminating in the left lower midline abdomen. Multiple foc i of air intermixed with fluid throughout the anterior subcutaneous fat , and there is multifocal soft tissue stranding. Overall the findings have imp roved. Reproductive organs: Uterus is surgicall y absent. Neither ovary is identified. No adnexal masses. Osseous structures: No suspicious lesion s. Moderate hypertrophic facet arthropathy is present in the lower lumb ar spine. No suspicious lytic or sclerotic osseous lesion. Procedure Note Kathy Jolly MD - 09/02/2021Formatt ing of this note might be different from the original. EXAMINATION: CT ABDOMEN AND PELVIS W CON TRAST CLINICAL HISTORY: Abdominal abscess/infe ction suspected TECHNIQUE: Helical CT of the abdomen and pelvis was performed following the intravenous administration of contrast. 120 cc of Omnipaque 350 were given intravenously. Oral contrast was not adm inistered. COMPARISON: 08/12/2021, 04/24/2020 FINDINGS: Lower chest: No basilar pleural or peric ardial effusion. No focal consolidation. Liver: Normal size and density with smoo th contour. Widely patent hepatic and portal veins. No focal lesions. Bile ducts: Nondilated. Gallbladder: Surgically absent Pancreas: Fatty infiltration, most prono unced in the tail, unchanged from 04/2020. No adjacent inflammation. Spleen: Normal Adrenals: Normal. Kidneys: A less than 5 mm low-attenuatio n lesion in each kidney are both unchanged from 04/2020 and remain too sma ll to characterize. There is focal posterior right upper pole scarring. No hydronephrosis or urolithiasis. Urinary Bladder: Normal. Vasculature: 27 mm ectasia of the infrar enal aorta is unchanged. Lymph Nodes: No enlarged lymph nodes. Bowel: No definite dilated small or larg e bowel loops, suboptimally assessed due to lack of contrast. Normal terminal ile um and appendix. Scattered colonic diverticuli are present, most pronounced in the sigmoid colon. Rectosigmoid anastomosis is widely patent. Peritoneum and mesentery: No free intrap eritoneal fluid, loculated collection, or mesenteric inflammation. No free intr aperitoneal air. Abdominal wall: There is a subcutaneous catheter in the ventral subcutaneous fat extending from the right side, with a U- shaped configuration, terminating in the left lower midline abdomen. Multiple foc i of air intermixed with fluid throughout the anterior subcutaneous fat , and there is multifocal soft tissue stranding. Overall the findings have imp roved. Reproductive organs: Uterus is surgicall y absent. Neither ovary is identified. No adnexal masses. Osseous structures: No suspicious lesion s. Moderate hypertrophic facet arthropathy is present in the lower lumb ar spine. No suspicious lytic or sclerotic osseous lesion. IMPRESSION 1. Interval placement of a catheter into the subcutaneous fat of the lower anterior abdominal wall. There is persis tent air and fluid in this region although it has improved. Hazy soft tiss ue stranding consistent with ongoing infection/inflammation. Cannot exclude a n enterocutaneous fistula given technique utilized. Correlation with ope rative history is needed as none has been provided. Thank you for letting us participate in the care of this patient. If you are a health care provider and have any questi ons regarding this report, please contact the number below. For patients w ho have questions please contact the health career education teacher that requested your imaging first. Shira Mcclelland MD IMG CT ORDERABLES Scan, Peripheral Blood (09/02/2021 5:07 PM EDT)Only the most recent of3 results within the time period is included. [facility] gist Method Time Signature Plat Estimate Increased [facility] RBC Morphology Normal [facility] Specimen Anatomical Collection Method Collection Time Receive d Time (Source) Location / / Volume Laterality Blood 09/02/2021 5:07 PM 2 5:23 EDT PM EDT Resulting Agency Comment Spec In Lab Demetrius ROMAN HEMATOLOGY ORDERABLES Performing Organization Address City/[facility]/ZIP Code Phon e Number [address] Lactate, whole blood, send to lab ([facility] [place] [place]) (09/02/2021 5:07 PM EDT) athologist Signature Lactate WB 2.1 0.5 - 2.2 [facility] mmol/L [facility] Specimen Anatomical Collection Method Collection Time Receive d Time (Source) Location / / Volume Laterality Blood 09/02/2021 5:07 PM 5:22 EDT PM EDT Resulting Agency Comment Spec In Lab Shira Mcclelland MD CHEMISTRY ORDERABLES Performing Organization Address City/[facility]/ZIP Code Phon e Number [address] Vancomycin, trough (08/20/2021 10:31 AM EDT)Only the most recent of4 results within the time period is included. athologist Signature Vanc Trough 19.3 mg/L [facility] Comment: Therapeutic range for complicated infect ions such as bacteremia, endocarditis, osteomyelitis, meningitis, and hospital- acquired pneumonia caused by S. aureus: 15-20 mg/L Therapeutic range for other indications: 10-15 mg/L Toxic: >20 mg/L Reference: Vancomycin Therapeutic Monitoring: Clive perez and Recommendations from the ASHP, IDSA and SIDP Task Force. ??Am J Health- Syst Pharm. 2009; 66:82-98 Specimen Anatomical Collection Method Collection Time Receive d Time (Source) Location / / Volume Laterality Blood 08/20/2021 10:31 08/20/2021 AM EDT 10:56 AM EDT Resulting Agency Comment Spec In Lab Loco White MD CHEMISTRY ORDERABLES Performing Organization Address City/[facility]/ZIP Code Phon e Number [address] SCAN DOC: TELEMETRY STRIPS (08/19/2021 5:52 PM EDT)Only the most recent of4 resultswithin the time period is included. Narrative This result has an attachment that is no t available. Unknown MEDIA MGR SCAN EXT ORDR/RSLT (ABNORMAL) CRP, acute inflammation (08/19/2021 5:50 AM EDT)Only the most recent of2 resultswithin the time period is included. P athologist Signature CRP 40.2 (H) <=4.9 mg/L [facility] Comment: result rechecked-KS Specimen Anatomical Collection Method Collection Time Receive d Time (Source) Location / / Volume Laterality Blood 08/19/2021 5:50 AM 6:07 EDT AM EDT Resulting Agency Comment Spec In Lab Loco White MD CHEMISTRY ORDERABLES Performing Organization Address City/State/[place] [address] COVID-19 PCR (08/15/2021 3:31 PM EDT) Patholo gist Method Time Signature SARS-CoV-2 Not Detected Not Detected [facility] Comment: This result should be interpreted in com bination with the clinical observations, patient history and epidem iological information in making a final diagnosis. For testing of asymptomatic i ndividuals, assay performance characteristics and clinical utility hav e not been evaluated. Testing for SARS-CoV-2 (Severe acute respiratory syn drome coronavirus 2, formerly known as 2019 novel coronavirus or 2019-nCoV) to aid in the diagnosis of COVID-19 is performed using the [employer] VERONICA S-CoV-2 Assay as authorized by the FDA Emergency Use Authorization (EUA). This EUA assay is intended for In-vitro Diagnostic (IVD) use with respiratory sp ecimens such as nasopharyngeal swabs collected from individuals during the ac bertha phase of infection. This assay is performed based on the instructions for use provided by [employer] and additional guidance provided by CDC and FDA. Testing is performed in the [facility] Laboratory within the Department of Pathology and Laboratory Medicine at [facility], certified under the Clinical Laboratory Improvement Amendments of 1988 (CLIA), 42 U.S.C. 263a, to perform high complexi ty tests. Assay performance has been verified according to clinical laborator y regulatory requirements for use with specimens collected from individuals brandon pected of COVID-19. Test results are provided above. A result of Not Detecte d indicates that the viral RNA target is not present above the limit of detect ion, but does not preclude SARS-CoV-2 infection. False negative results may oc cur if a specimen is improperly collected, transported or handled; if am plification inhibitors are present; or if inadequate numbers of viral particles are present in the specimen. When a diagnostic test is negative, the possibi lity of a false negative result should be considered in the context of a patien t's recent exposures and the presence of clinical signs and symptoms consisten t with COVID-19. A result of Detected indicates that RNA from SARS-CoV-2 was d etected and the patient is infected. As required or requested by public health a uthorities, positive specimens may be sent for additional testing. Positive an d negative predictive values for this test are highly dependent on disease pre valence. A result of Invalid indicates that neither the viral RNA tar gets nor the internal control target was detected. An invalid result suggests the presence of inhibitors. Recollection and re-testing is recommend ed in the case of an invalid result. CDC COVID-19 criteria for testing on hum an specimens and clinical management guidance information are available at [facility] CDC Coronavirus Disease 2019 (COVID-19) webpage under Information fo r Healthcare Professionals (https://www.cdc.gov/coronavirus/2019-nc ov/hcp/index.html) Additional information about this and ot her EUA tests can be found in provider and patient fact sheets at the following FDA website: https://www.fda.gov/medical-devices/enygipfdbtt-rdgzqkn-0989-mckrp-27-uucfavpjq- hqc-jhyjyhilqilknv-wqjwjwq-devices/boyxa-tvjhywgjbcg-geaq SARS-Cov-2 RNA Source COLOR LABORATORY TECHNICIAN Swab [facility] Specimen (Source) Anatomical Collection Method Collection Time Re ceived Time Location / / Volume Laterality Nasopharyngeal Swab 08/15/2021 3:31 08/15 PM EDT 9:54 PM EDT Comment: Symptoms->Surveillance Resulting Agency Comment Spec In Lab Loco White MD MICROBIOLOGY - GENERAL ORDER ARLEY Performing Organization Address City/State/[place] [address] EKG 12 Lead (08/14/2021 4:30 AM EDT) Component Value Ref Range Test Analysis Performed Pathologis t Method Time At Signature Ventricular rate 46 BPM MUSE SYSTEM Atrial Rate 46 BPM MUSE SYSTEM P-R Interval 114 ms MUSE SYSTEM QRS Duration 80 ms MUSE SYSTEM Q-T Interval 518 ms MUSE SYSTEM QTC Calculated 453 ms MUSE SYSTEM (Bezet) Calculated P [place] 49 degrees MUSE SYSTEM Calculated R [place] 28 degrees MUSE SYSTEM Calculated T [place] 72 degrees MUSE SYSTEM INTERPRETATION Marked sinus bradycardia MUSE SYSTEM Abnormal ECG When compared with ECG of 18-SEP-2019 11:29, Vent. rate has decreased BY ??24 BPM I personally reviewed the tracing and edited the fellows int erpretation Confirmed by fellow Senser, Cuauhtemoc Liu ([id number]) on 08/14/2021 2:2 6:50 PM Confirmed by MD Acosta, Gabriel ([id number]) on 08/14/2021 3:04:56 P M Specimen Anatomical Collection Method Collection Time Receive d Time (Source) Location / / Volume Laterality 08/14/2021 4:30 AM 2 3:04 EDT PM EDT Loco White MD ECG ORDERABLES Performing Organization Address City/State/ZIP Code Phon e Number MUSE SYSTEM (ABNORMAL) Hemoglobin A1c (08/13/2021 5:54 AM EDT) Analysis Performed At Patho logist Time Signature Hemoglobin A1C 7.1 (H) 4.3 - 5.6 [facility] Comment: Reference Range: 4.3 - 5.6% 5.7 - 6.4% - Increased Risk of Developin g Diabetes Mellitus >= 6.5% - Consistent with diagnosis of D iabetes Mellitus In the absence of hyperglycemia (i.e. pl asma glucose > 200 mg/dL) or classic symptoms of hyperglycemia a repeat measu rement of HbA1c should be performed on a separate sample to confirm the diagnos is. Diagnosis and Classification of Diabetes Mellitus, Diabetes Care 2013; 36: Suppl. 1, I48-77 Est Avg Gluc 156 mg/dL [facility] Comment: eAG equivalents for HbA1c percentages: HbA1c(%) ?eAG(mg/dL) 6.0 ?126 6.5 ?140 7.0 ?154 7.5 ?169 8.0 ?183 8.5 ?197 9.0 ?212 9.5 ?226 10.0 ? 240 Limitations: The eAG calculation has not been validated on women, individuals below 18 years old and above 70 years old, and individuals with hemoglobinopathies. Additional resources are available on [facility] website. Adrian DUMONT, Rufus J, Jaylene R, et al. ??Tr anslating the A1C assay into estimated average glucose values. ??Diabetes Care 2008:31(8):0946-9364. Specimen Anatomical Collection Method Collection Time Receive d Time (Source) Location / / Volume Laterality Blood 08/13/2021 5:54 AM 2 6:05 EDT AM EDT Resulting Agency Comment Spec In Lab Joshua Che MD CHEMISTRY ORDERABLES Performing Organization Address City/State/[place] [address] (ABNORMAL) Anaerobic Culture (08/12/2021 7:49 PM EDT)Only the most recent of3 resultswithin the time period is included. [facility] gist Method Time Signature Anaerobic Moderate OLGA Culture Chilangoia POCATELLO magna (A) [facility] Organism Finemaryldia OLGA magna (A) [facility] Specimen Anatomical Collection Method Collection Time Receive d Time (Source) Location / / Volume Laterality Stomach 08/12/2021 7:49 PM 2 8:56 EDT PM EDT Comment: Abdominal Wall Abscess Tissue C ulture Resulting Agency Comment Spec In Lab Organism Antibiotic Method Susceptibility Finegoldia magna Metronidazole MINIMUM INHIBITORY CONCENTRATIO N 0.5: Sensitive Finegoldia magna Penicillin MINIMUM INHIBITORY CONCENTRATIO N 0.125: Sensitive Finegoldia magna Vancomycin MINIMUM INHIBITORY CONCENTRATIO N 0.25 Joshua Che MD MICROBIOLOGY - GENERAL ORDER [place] Performing Organization Address City/[facility]/[place] [address] (ABNORMAL) Tissue culture (08/12/2021 7:49 PM EDT) Component Value Ref Test Analysis Performed At [facility] Range Method Time Signature Tissue Moderate OLGA Culture Coagulase POCATELLO negative [facility] species (A) LABORATORY Gram Stain Moderate Neutrophils seen [facility] Moderate Gram Positive Cocci seen POCATELLO Results called to and read back by maritza ??08/12/21 21:42:05 [facility] () [facility] Organism Coagulase OLGA negative POCATELLO Staphylococcus [facility] species () [facility] Organism Gram Positive OLGA Cocci () [facility] Specimen Anatomical Collection Method Collection Time Receive d Time (Source) Location / / Volume Laterality Stomach 08/12/2021 7:49 PM 8:56 EDT PM EDT Comment: Abdominal Wall Abscess Tissue C ulture Resulting Agency Comment Spec In Lab Organism Antibiotic Method Susceptibility Coagulase negative staphylococcus Ciprofloxacin MICROSCAN METH OD Sensitive species Coagulase negative staphylococcus Clindamycin MICROSCAN METH OD Resistant species Coagulase negative staphylococcus Erythromycin MICROSCAN METH OD Resistant species Coagulase negative staphylococcus Gentamicin MICROSCAN METH OD Sensitive species Comment: Gentamicin is not a ppropriate for Barton-therapy. Coagulase negative staphylococcus Levofloxacin MICROSCAN METH OD Sensitive species Coagulase negative staphylococcus Oxacillin MICROSCAN METH OD Resistant species Coagulase negative staphylococcus Rifampin MICROSCAN METH OD Sensitive species Coagulase negative staphylococcus Tetracycline MICROSCAN METH OD Sensitive species Coagulase negative staphylococcus Trimethoprim/Sulfa MICROSCAN M ETHOD Sensitive species Coagulase negative staphylococcus Vancomycin MICROSCAN METH OD Sensitive species Joshua Che MD MICROBIOLOGY - GENERAL ORDER [place] Performing Organization Address City/[facility]/ZIP Code Phon e Number [place] [id number] (ABNORMAL) Body Fluid Culture, Aerobic (08/12/2021 7:49 PM EDT) Component Value Ref Test Analysis Performed At Patholo gist Range Method Time Signature Body Fluid Moderate mixed Gram Positive organisms including Coagulase negative [facility] Culture Staphylococcus species [facility] CK Susceptibilities previously reported [facility] () [facility] Gram Stain Cytocentrifuge Gram Stain performed OLGA Neutrophils seen NAVEEN Many Gram Positive Cocci seen [facility] Results called to and read back by Dilip rojas ?? 22:08:54 [facility] () LABORATORY Organism Coagulase negative OLGA Staphylococcus POCATELLO species (A) [facility] Organism Gram Positive Cocci [facility] (A) [facility] Specimen (Source) Anatomical Collection Method Collection Time Re ceived Time Location / / Volume Laterality Abdominal Fluid 08/12/2021 7:49 8:55 PM EDT PM EDT Comment: Abdominal Wall Abscess Fluid Cu lture Resulting Agency Comment Spec In Lab Joshua Che MD MICROBIOLOGY - GENERAL ORDER [place] Performing Organization Address City/State/ZIP Code Phon e Number [place] [id number] CT Abdomen & Pelvis wo Contrast (08/12/2021 2:33 PM EDT)Only the most recent of2 resultswithin the time period is included. Anatomical Region Laterality Modality Abdomen, Pelvis Computed Tomography Specimen (Source) Anatomical Collection Method Collection Time Re ceived Time Location / / Volume Laterality 08/12/2021 2:51 PM EDT Impressions 08/12/2021 3:53 PM EDT * ??Interval increase in size of midline gas containing soft tissue abscess superficial to the prior mesh repair, no w measuring up to 15 cm in craniocaudal dimension. * ??No evidence of hernia recurrence or intraperitoneal abscess extension. Preliminary report signed by: Jone haskins at 08/12/2021 3:00 PM I have personally reviewed the image(s) and the resident's interpretation and agree with the findings, Jas sanchez MD at 08/12/2021 3:53 PM Thank you for letting us participate in the care of this patient. ??If you are a health care provider and have any questi ons regarding this report, please contact the number below. ??For patients who have questions please contact the health career education teacher that requested your imaging first. ? Narrative 08/12/2021 3:53 PM EDT EXAMINATION: CT ABDOMEN AND PELVIS WO CONTRAST CLINICAL HISTORY: Abdominal pain, post-o p; worsening post-op abd pain now with increased drainage, eval abscess, perfor ation PLEASE PROTOCOL TO WITH IV CONTRAST IF A BLE -- had a recent noncon CT and think contrast will help differentiate TECHNIQUE: Helical CT of the abdomen and pelvis was performed without the use of intravenous contrast. ??Multiplanar refo rmatted images were generated. COMPARISON: CT 08/07/2021 FINDINGS: The absence of intravenous contrast limi ts the evaluation of solid viscera and vasculature. Lower chest: Normal. Liver: Normal. Bile ducts: Nondilated. Gallbladder: Surgically absent. Pancreas: Normal attenuation without rolly blu dilatation. Spleen: Normal. Adrenals: Normal. Right kidney/ureter: No collecting syste m dilation or calculi. Left kidney/ureter: No collecting system dilation or calculi. Urinary Bladder: No bladder or proximal urethral calculi. Vasculature: No aneurysm. Lymph Nodes: No enlarged lymph nodes. Bowel: Small bowel loops are nondilated. Question mild wall thickening of anterior small bowel loops adjacent to t he hernia mesh repair, likely reactive. Normal appendix. Peritoneum and mesentery: No ascites, fr ee air, or loculated fluid collection. No mesenteric inflammation. Abdominal wall: Status post ventral ramiro ia repair. Interval increase in size of gas containing collection within the ant erior abdominal soft tissues superficial to the mesh. Collection now measures quinn roximately 15.0 cm in craniocaudal dimension and 2.8 cm in depth. Increased adjacent superficial fat stranding. No definite intraperitoneal extension or ev idence of hernia recurrence. Reproductive organs: Status post hystere ctomy. No adnexal masses. 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 Procedure Note Jas Weir MD - 08/12/2021Form atting of this note might be different from the original. EXAMINATION: CT ABDOMEN AND PELVIS WO CO NTRAST CLINICAL HISTORY: Abdominal pain, post-o p; worsening post-op abd pain now with increased drainage, eval abscess, perfor ation PLEASE PROTOCOL TO WITH IV CONTRAST IF A BLE -- had a recent noncon CT and think contrast will help differentiate TECHNIQUE: Helical CT of the abdomen and pelvis was performed without the use of intravenous contrast. Multiplanar reform atted images were generated. COMPARISON: CT 08/07/2021 FINDINGS: The absence of intravenous contrast limi ts the evaluation of solid viscera and vasculature. Lower chest: Normal. Liver: Normal. Bile ducts: Nondilated. Gallbladder: Surgically absent. Pancreas: Normal attenuation without rolly blu dilatation. Spleen: Normal. Adrenals: Normal. Right kidney/ureter: No collecting syste m dilation or calculi. Left kidney/ureter: No collecting system dilation or calculi. Urinary Bladder: No bladder or proximal urethral calculi. Vasculature: No aneurysm. Lymph Nodes: No enlarged lymph nodes. Bowel: Small bowel loops are nondilated. Question mild wall thickening of anterior small bowel loops adjacent to t he hernia mesh repair, likely reactive. Normal appendix. Peritoneum and mesentery: No ascites, fr ee air, or loculated fluid collection. No mesenteric inflammation. Abdominal wall: Status post ventral ramiro ia repair. Interval increase in size of gas containing collection within the ant erior abdominal soft tissues superficial to the mesh. Collection now measures quinn roximately 15.0 cm in craniocaudal dimension and 2.8 cm in depth. Increased adjacent superficial fat stranding. No definite intraperitoneal extension or ev idence of hernia recurrence. Reproductive organs: Status post hystere ctomy. No adnexal masses. 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 IMPRESSION * Interval increase in size of midline g as containing soft tissue abscess superficial to the prior mesh repair, no w measuring up to 15 cm in craniocaudal dimension. * No evidence of hernia recurrence or in traperitoneal abscess extension. Preliminary report signed by: Jone haskins at 08/12/2021 3:00 PM I have personally reviewed the image(s) and the resident's interpretation and agree with the findings, Jas sanchez MD at 08/12/2021 3:53 PM Thank you for letting us participate in the care of this patient. If you are a health care provider and have any questi ons regarding this report, please contact the number below. For patients w ho have questions please contact the health career education teacher that requested your imaging first. Tu Banegas VASCULAR NURSE IMG CT ORDERABLES (ABNORMAL) BLOOD GAS 2 VENOUS (08/12/2021 2:15 PM EDT) Analysis Performed At [facility] logis Time Signature pH Lan 7.43 (H) 7.32 - [facility] 7.42 [facility] pCO2 Lan 44 41 - 51 [facility] pO2 Lan 29 25 - 40 [facility] HCO3 Lan 28.2 mmol/L [facility] BE Lan 3.8 mmol/L [facility] Hgb Blood Gas 14.2 11.[address] [facility] 15.5 g/dL [facility] O2HB Lan 51.2 % [facility] COHB Lan 5.8 % [facility] Comment: Nonsmokers: 0.5-1.5% COHB Smokers: Variable, but usually less than 10% Toxic: 20-30% COHB Lethal: Greater than 60% COHB METHB Lan 0.2 <=1.5 % [facility] Na Whole Blood 136 135 - 145 mmol/L [facility] K Whole Blood 2.6 (Critical) 3.5 - 5.0 mmol/L [facility] Comment: Noted by instrument maintenance supervisor. Please note: Patients with WBC >100,000 may have falsely elevated Potassium levels. Contact the Clinical Chemistry L aboratory if there are any questions. ICa Whole Blood 1.19 1.15 - 1.33 mmol/L [facility] Comment: Note: ??Total bilirubin higher than 20 m g/dL may lead to falsely low ionized calcium. CL Whole Blood 97 (L) 98 - 107 mmol/L [facility] Gluc Whole Bld 146 65 - 199 mg/dL [facility] Comment: Diabetes: >=200 mg/dL plus symp toms Lactate WB 1.7 0.5 - 2.2 mmol/L [facility] BGas Source Venous [facility] Specimen Anatomical Collection Method Collection Time Receive d Time (Source) Location / / Volume Laterality Blood 08/12/2021 2:15 PM 2 2:15 EDT PM EDT Viviana Camacho MD CHEMISTRY ORDERABLES Performing Organization Address City/[facility]/ZIP Code Phon e Number [address] L-Lactate2 Whole Blood (08/07/2021 2:47 PM EDT) P athologist Signature Lactate WB 1.4 0.5 - 2.2 [facility] LABORATORY Specimen Anatomical Collection Method Collection Time Receive d Time (Source) Location / / Volume Laterality Blood 08/07/2021 2:47 PM 2 2:47 EDT PM EDT Emergency Dept CHEMISTRY ORDERABLES Performing Organization Address City/[facility]/ZIP Code Phon e Number [address] Lipase (08/07/2021 2:46 PM EDT) P athologist Signature Lipase 16 0 - 60 [facility] unit/L [facility] Specimen Anatomical Collection Method Collection Time Receive d Time (Source) Location / / Volume Laterality Blood 08/07/2021 2:46 PM 2 2:50 EDT PM EDT Resulting Agency Comment Spec In Lab Tu Banegas APRN CHEMISTRY ORDERABLES Performing Organization Address City/State/[place] [address] (ABNORMAL) Comprehensive metabolic panel (non-fasting) (08/07/2021 2:46 PM EDT) Only the most recent of2 resultswithin the time period is included. athologist Signature Glucose Lvl 120 65 - 199 [facility] mg/dL [facility] Comment: Diabetes: >=200 mg/dL plus symp toms BUN 16 8 - 18 mg/dL [facility] Creatinine 0.70 0.70 - 1.20 mg/dL [facility] Sodium 139 135 - 145 mmol/L [facility] Potassium 2.8 (Critical) 3.5 - 5.0 mmol/L [facility] Comment: Called by: Aleja, Read back by: Macy burkett, Date/Time:08/07/21 15:28. Please note: ??Patients with WBC >100,00 0 may have falsely elevated Potassium levels. ??For accurate Potassium quantif ication in these patients send serum separator tube (gold top) for subsequent determinations. ??Contact the Clinical Chemistry Laboratory if there are any qu estions. Chloride 97 (L) 98 - 107 mmol/L [facility] CO2 30 22 - 31 mmol/L [facility] Anion Gap 12 5 - 15 mmol/L [facility] Calcium 10.1 8.5 - 10.5 mg/dL [facility] Total Protein 7.4 6.1 - 8.0 g/dL [facility] Albumin 4.0 3.2 - 5.2 g/dL [facility] AST 14 0 - 30 unit/L [facility] ALT 16 0 - 30 unit/L [facility] Alk Phos 118 (H) 35 - 105 unit/L [facility] Total Bilirubin 0.3 0.2 - 1.3 mg/dL [facility] Estimated GFR 95 >=60 mL/min/1.73 m?? [facility] Comment: This patient? s estimated glomerular filtration rate (eGFR) is between 95 mL/min/1.73 m2 (patients with less muscl e mass) and 110 mL/min/1.73 m2 (patients with more muscle mass) as dete rmined by the CKD-EPI equation. Assessment of eGFR is not appropriate wh en creatinine concentrations are rapidly changing. For clinical decisions where creatinine clearance will affect therapy, a 24-hour urine creatinine armando david may be advised. Assignment of CKD stage 1 - 5 for patien ts with an eGFR near the transition point between stages may be based on cli nical assessment of muscle mass and symptoms in addition to eGFR. Specimen Anatomical Collection Method Collection Time Receive d Time (Source) Location / / Volume Laterality Blood 08/07/2021 2:46 PM 2 2:50 EDT PM EDT Resulting Agency Comment Spec In Lab Tu Banegas APRN CHEMISTRY ORDERABLES Performing Organization Address City/[facility]/[place] [address] Abscess/Wound Aspirate Culture (2021 3:37 PM EDT) Component Value Ref Test Analysis Performed At [facility] Method Time Signature Abscess/Wound Normal cutaneous tania isolated from broth culture. OLGA Aspirate No growth on original plates. [facility] LABORATORY Gram Stain Few Neutrophils seen OLGA No microorganisms seen. [facility] Specimen Anatomical Collection Method Collection Time Receive d Time (Source) Location / / Volume Laterality Deep Wound ABDOMEN / Unknown 2021 3:37 PM 07/14 4:00 EDT PM EDT Comment: Midline Abdominal wound - cultu re Resulting Agency Comment Spec In Lab Lisandro Treviño MD MICROBIOLOGY - GENERAL ORDER [place] Performing Organization Address City/[facility]/[place] [address] Type and Screen Validity (2021 4:29 AM EDT) [facility] Method Time Signature T&S only valid [facility] LABORATORY Comment: This Type and Screen result is only valid at the [facility] Hospital Specimen Anatomical Collection Method Collection Time Receive d Time (Source) Location / / Volume Laterality Blood 2021 4:29 AM 2 4:58 EDT AM EDT Resulting Agency Comment Spec In Lab Willie Chandler MD BLOOD BANK ORDERABLES Performing Organization Address City/State/[place] [address] ABORH Recheck Status (2021 4:29 AM EDT) Patholo gist Method Time Signature ABORH Type Completed [facility] LABORATORY Specimen Anatomical Collection Method Collection Time Receive d Time (Source) Location / / Volume Laterality Blood 2021 4:29 AM 2 4:58 EDT AM EDT Resulting Agency Comment Spec In Lab Willie Chandler MD BLOOD BANK ORDERABLES Performing Organization Address City/[facility]/[place] [address] ABO/Rh Typing (2021 4:29 AM EDT) P athologist Signature ABORh Type O Pos [facility] Specimen Anatomical Collection Method Collection Time Receive d Time (Source) Location / / Volume Laterality Blood 2021 4:29 AM 2 4:58 EDT AM EDT Resulting Agency Comment Spec In Lab Willie Chandler MD BLOOD BANK ORDERABLES Performing Organization Address City/[facility]/[place] [address] APTT (2021 4:29 AM EDT) P athologist Signature PTT 34 25 - 37 sec [facility] Comment: The PTT is NOT appropriate for heparin m onitoring. Use the Anti-Xa level for heparin monitoring (HEP UFH) or LMWH mon itoring (HEP LMW). A PTT less than 37 seconds generally indicates adequate hem ostasis. Specimen Anatomical Collection Method Collection Time Receive d Time (Source) Location / / Volume Laterality Blood 2021 4:29 AM 2 4:49 EDT AM EDT Resulting Agency Comment Spec In Lab Negro Watters MD HEMATOLOGY ORDERABLES Performing Organization Address City/State/[place] [address] Prothrombin Time (2021 4:29 AM EDT) P athologist Signature PT 11.6 9.4 - 12.5 [facility] LABORATORY INR 1.0 [facility] Comment: An INR <2.0 indicates adequate procoagul ant activity for hemostasis in most patients without underlying bleeding dis orders, though the INR may not adequately reflect hemostatic capacity i n patients with liver disease and synthetic impairment. The recommended ta rget INR range for therapeutic anticoagulation is 2.0 ? 3.0 for most applications, though lower and higher ranges may be appropriate depending on c linical circumstances. Specimen Anatomical Collection Method Collection Time Receive d Time (Source) Location / / Volume Laterality Blood 2021 4:29 AM 2 4:49 EDT AM EDT Resulting Agency Comment Spec In Lab Negro Watters MD HEMATOLOGY ORDERABLES Performing Organization Address City/State/ZIP Code Phon e Number [address] Antibody screen (2021 4:29 AM EDT) Patholo gist Method Time Signature Ab Screen Negative [facility] LABORATORY Expires at 07/26/2021 [facility] [id number] on: [facility] Specimen Anatomical Collection Method Collection Time Receive d Time (Source) Location / / Volume Laterality Blood 2021 4:29 AM 2 4:58 EDT AM EDT Resulting Agency Comment Spec In Lab Willie Chandler MD BLOOD BANK ORDERABLES Performing Organization Address City/State/[place] [address] Film Library- Storage Only CT Abdomen & Pelvis (07/18/2021 3:53 PM EDT) Specimen (Source) Anatomical Location Collection Method / Collectio n Time Received Time / Laterality Volume Narrative [facility] - 07/18/2021 3:53 PM EDT This exam is auto-finalizing. It's purpo se is for storage only. Ally Ortiz APRN IMG FILM LIBRARY ORDERABLES Performing Organization Address City/State/ZIP Code Phon e Number [facility] [place], [place] SCAN DOC: CT SCAN (07/18/2021 12:00 AM EDT) Narrative This result has an attachment that is no t available. Unknown MEDIA MGR SCAN EXT ORDR/RSLT from Last 3 Months Insurance Payer Benefit Plan / Subscriber ID Effective Dates Phone Addre ss Type Group [place] [id number] 2019-Presen [phone] [address] [place] [address] Advance Directives Latest Code Status on File Code Status Date Activated Date Inactivated Comments Attempt Cardiopulmonary Resuscitation - 09/02/2021 8:37 PM 09/20/19 22 2:39 PM Inpatient Code Status decision made by: Patient Attempt Cardiopulmonary Resuscitation - 08/12/2021 5:29 PM 08/23/19 22 2:09 PM Inpatient Code Status decision made by: Patient Attempt Cardiopulmonary Resuscitation - 07/22/2021 3:04 PM 07/26/19 22 7:25 PM Inpatient Code Status decision made by: Patient Attempt Cardiopulmonary Resuscitation - 04/25/2021 2:11 AM 022 4:32 PM Inpatient Code Status decision made by: Patient Attempt Cardiopulmonary Resuscitation - 04/25/2020 2:00 AM 021 3:21 PM Inpatient Code Status decision made by: Patient Care Teams Optical Mechanic Apprentice Relationship Specialty Start Date End Date Ally Ortiz APRN PCP - General Internal Medicine 04/24/21 [address] [place] [address]
--- OUTSIDE RECORDS SUMMARY | 2021-09-27 14:49 | XMS_ITS | Encounter Summary ---
:1960 [place] [address] Care Team Providers Name Role Phone Diana Ally Mary MUNOZ Primary Care Provider Reason for Visit Auth/Cert Specialty Diagnoses / Procedures Referred By Contact Refer red To Contact Diagnoses Abscess of abdominal wall Abscess Jerod Frost MD [facility] Procedures EMERGENCY I [facility] [place] [address] Referral ID Status Reason Start Date Expiration Date Visits Requ ested Visits Authorized [id number] 1 1 Encounter Details Date Type Department Care Team Description 09/13/2021 Anesthesia Event Main Operating Room Paloma Das MD [facility] [place] [address] [facility] Ramakrishna Jaeger MD [facility] [place] [address] [place] [address] Anesthesia Record Procedure Summary Procedure Name Responsible Anesthesia Start Anesthesia Stop Anesthesiologist Time Time DEBRIDEMENT SKIN AND Paloma Daniels MD 09/13/2109/13 SUBCU, FIRST 20 SQ CM, ABDOMEN (WRVU 1.01) (Midline Abdomen) Events Date Time Event Comment 09/13/20211947 AN Verify 2011 Start 2011 An Start Data 2019 An Induction 2021 An Intubation 2022 Anesthesia Ready 2022 An Data Art 2045 Extubation/LMA Out 2046 an stop data 2048 Recovery or ICU Handoff Patient care was transferred to the destination unit staff after review of the patient's medica l history, current anesthetic/surgi mary grace status and plan, according to the Provider Handoff Checklist. 2052 Stop Name Total Propofol 200 mg Propofol INF 46.12 mg fentaNYL 100 mcg Ondansetron 4 mg ePHEDrine 5 mg Lactated Ringers 200 mL Agents Name O2 Air N2O Sevoflurane (et) O2 Auxiliary Flowmeter 2 Blood No blood administrations on file. Lines, Drains, and Airways Type Details Placement Removal Incision 07/23/21; 1511; midline, 07/23/21 1511 by anterior; abdomen; Nikos Avila RN vertical PIV 09/02/21; 1713; median 09/02/21 1713 by Ponce, 0 09/16/21 1501 by cubital vein (antecubital GENA Benavides, GENA Dorado), left; [id number] catheter system; 20 gauge; Angela AVERY; IV LEAKING; site care per policy/procedure, removed per policy/procedure, catheter/device intact; 09/16/21; 1501 Supraglottic Mask Ventilation: Not 09/13/212021 by Adán, 09/13/212045 by Attempted (0); LMA Type: Pattie E, SEISMIC SURVEY ASSISTANT Pattie Mccain, iGel; LMA Size: 4; SEISMIC SURVEY ASSISTANT Inserted by: Paige Davies CRNA documented in this encounter Social History Tobacco Use Types Packs/Day Years [...] on file documented as of this encounter OR Notes Anesthesia Postprocedure Evaluation - Paloma Daniels MD - 09/13/2021 9:30 PM EDT Department of Anesthesiology Post-procedure Note Patient: Jahaira Montgomery Procedure Summary Date: 09/13/21 Room / Location: [address] MAIN OR Anesthesia Start: 2011 Anesthesia Stop: 2052 Procedure: DEBRIDEMENT SKIN AND SUBCU, FIRST 20 SQ CM, ABDOMEN (WRVU 1.01) (Midline Abdomen) Diagnosis: (midline wound needing debridement) Surgeons: Ai Arriaza MD Responsible Provider: Paloma Daniels MD Anesthesia Type: general ASA Status: 3 All Anesthesia Providers: Anesthesiologist: Paloma Daniels MD SEISMIC SURVEY ASSISTANT: Pattie Mccain CRNA Vitals Value Taken Time BP 133/89 09/13/212114 Temp Pulse 62 09/13/212129 Resp 15 09/13/212129 SpO2 95 % 09/13/212129 Pain Level Vitals shown include unvalidated device data. Patient Location: PACU/[facility] Level of Consciousness: Awake and Alert Pain Management: Satisfactory Analgesia PONV: None Cardiovascular Status: At Baseline Respiratory Status: Room Air and Stable Respiratory Status Postoperative Fluid Status: Intravascular EUvolemia Possible Anesthetic Complications: NONE apparent at time of evaluation Final Primary Anesthesia Type: General (The anesthetic type performed was the same as planned.) Comments: Ms. Montgomery tolerated the procedure well and without complication. VSS on RA. Anesthesia Preprocedure Evaluation - Paloma Daniels MD - 09/13/2021 7:35 PM EDT Pre-Anesthesia Evaluation for: Jahaira Montgomery a 61 y.o. female. Procedure(s): DEBRIDEMENT SKIN AND SUBCU, FIRST 20 SQ CM, ABDOMEN (WRVU 1.01) MODIFIER WOUND VAC Patient Active Problem List Diagnosis Date Noted ??? Abscess of abdominal wall 09/02/2021 ??? Wound infection after surgery 08/12/2021 ??? Recurrent abdominal hernia 07/22/2021 ??? Incarcerated ventral hernia 04/25/2021 ??? Incarcerated hernia 04/25/2020 ??? Ostomy nurse consultation 07/26/2019 Past Medical History: Diagnosis Date ??? Chronic pain Chronic bilat knee (ACL) pain ??? Claudication left leg no acl right leg torn acl ??? Diverticulitis ??? Syncope fainted 10 years ago from heat Past Surgical History: Procedure Laterality Date ??? COLON SURGERY 03/19/2019 Open Lucy's ??? HERNIA REPAIR open umbilical x2 ??? HYSTERECTOMY ??? PRO CLOSE ENTEROSTOMY, RESEC+COLOREC ANAS N/A 09/14/2019 @CLOSE ENTEROSTOMY, LG,SM INTESTINE, W\RESECT COLORECTAL ANAST. (WRVU 27.9) performed by Miryam Wiley MD at [facility] MAIN OR ??? PRO COLONOSCOPY, DIAGNOSTIC N/A 08/18/2019 COLONOSCOPY, DIAGNOSTIC performed by Emigdio Lanier MD at [facility] ENDOSCOPY ??? PRO CYSTOSCOPY, INSERT URETERAL STENT Right 09/14/2019 CYSTO, STENT PLACEMENT INTRAOP, TEMPORARY (WRVU 2.82) performed by Werner Fournier MD at [facility] OR ? ? PRO DEBRIDEMENT MUSCLE AND FASCIA 20 SQ CM/< Midline 08/15/2021 DEBRIDEMENT SKIN, SUBCU, MUSCLE, ABDOMEN (WRVU 2.7) performed by Gabriel Daniel MD at [facility] OR ? ? PRO DEBRIDEMENT SUBCUTANEOUS TISSUE 20 SQCM/< Midline 08/17/2021 DEBRIDEMENT SKIN AND SUBCU, FIRST 20 SQ CM, ABDOMEN (WRVU 1.01) performed by Negro Watters MD [facility] OR ??? PRO EXPLORATION OF ABDOMEN N/A 04/25/2020 @EXPLORATORY LAPAROTOMY, WITH/WITHOUT BIOPSY(S) (WRVU 12.54) performed by Jerod Frost MD at [facility] OR ??? PRO IMPLANT MESH HERNIA REPAIR/DEBRIDEMENT CLOSURE N/A 2021 IMPLANT MESH FOR INCISIONAL OR VENTRAL HERNIA REPAIR (WRVU 4.88) performed by Negro Watters MD at [facility] OR ??? PRO INCISION AND DRAINAGE ABSCESS SIMPLE/SINGLE N/A 08/12/2021 I & D ABSCESS, SIMPLE OR SINGLE, TRUNK (WRVU 1.22) performed by Joshua Che MD at [facility] OR ??? PRO MOBILIZE SPLENIC FLEX N/A 09/14/2019 @MOBILIZATION OF SPLENIC FLEXURE (WRVU 2.23) performed by Miryam Wiley MD at [facility] OR ??? PRO OMENTAL FLAP, INTRA-ABDOMINAL 09/14/2019 @OMENTAL FLAP, INTRA-ABDOMINAL (WRVU 6.54) performed by Miryam Wiley MD at [facility] OR ??? PRO REPAIR RECURR INCIS HERNIA, DEONTE N/A 04/25/2020 HERNIA REPAIR, VENTRAL OR INCISIONAL, RECURRENT, INCARCERATED (WRVU 15.53) performed by Jerod Frost MD at [facility] OR ??? PRO REPAIR RECURR INCIS HERNIA, DEONTE Left 04/25/2021 HERNIA REPAIR, VENTRAL OR INCISIONAL, RECURRENT, INCARCERATED (WRVU 15.53) performed by Loco White MD at [facility] OR ??? PRO REPAIR RECURR INCIS HERNIA, DEONTE N/A 2021 HERNIA REPAIR, VENTRAL OR INCISIONAL, RECURRENT, INCARCERATED (WRVU 15.53) performed by Negro Watters MD at [facility] OR ??? PRO SEC CLSR SURG WOUND/DEHSN EXTENSIVE/COMPLICATED Midline 08/19/2021 SECONDARY CLOSURE SURGICAL WOUND OR DEHISCENCE, EXTENSIVE OR COMPLICATED, TRUNK (WRVU 12.04) performed by Jerod Frost MD at [facility] OR ??? PRO SIGMOIDOSCOPY, DIAGNOSTIC N/A 09/14/2019 SIGMOIDOSCOPY, FLEXIBLE W/WO SPECIMEN BY BRUSHING OR WASHING (WRVU 0.84) performed by Miryam Wiley MD at [facility] OR ??? TUBAL LIGATION Social History Tobacco Use ??? Smoking status: Current Every Day Smoker Packs/day: 0.50 Years: 40.00 Pack years: 20.00 Types: Cigarettes ??? Smokeless tobacco: Never Used Substance Use Topics ??? Alcohol use: Never Comment: almost 20 years Social History Substance and Sexual Activity Drug Use Never Allergies Allergen Reactions ??? Aspirin Nausea Only Medications: MAR and/or home medications have been reviewed. Physical Exam: Preprocedure Vitals Current as of 09/13/21 1935 BP: 147/75 Pulse: Not recorded Resp: Not recorded SpO2: 97 Temp: 36.8 ??C (98.2 ??F) Height: 149.9 cm (4' 11) (09/02/21) Weight: 97.1 kg (214 lb) (09/02/21) BMI: 43.22 IBW: 39.1 kg (86 lb 3.6 oz) Last edited 09/13/21 1534 by DM Airway Assessment: Mallampati: II TM distance: >3 FB Neck ROM: full Cardiovascular Assessment: system normal Pulmonary Assessment: pulmonary exam normal Dental Assessment: - normal exam Misc Assessment: Patient is wearing No contact(s). IV access: Peripheral line Last Filed Perioperative Cognitive Screening None Anesthesia Plan: ASA 3 general, with a(n) intravenous induction Ms. Montgomery is a 61 year old female with PMhx of tobacco abuse, and an incarcerated ventral hernia with a midline wound with VAC placement returning to the OR for serial debridement. Pt has an ADR to ASA. Pt has tolerated GA multiple times without issue, last for similar procedure with GA/LMA (iGel #4). Serial consent in place. Region - Other Informed Consent: Anesthetic plan and risks discussed with patient. Plan discussed with SEISMIC SURVEY ASSISTANT. Anesthesia Screening documented in this encounter Plan of Treatment Upcoming Encounters Date Type Specialty Care Team Description 09/30/2021 Office Visit General Surgery Paloma Mota, ED TRANSPORTER [facility] GENERAL SURGERY [place], [place] [address] (Wo rk) 09/30/2021 Office Visit Infectious Diseases Werner Harrell MD [facility] INFECTIOUS DISEA [place], [place] [address] (Wo rk) documented as of this encounter Visit Diagnoses Not on filedocumented in this encounter Administered Medications Inactive Administered Medications - up to 3 most recent administrations Medication Order MAR Action Action Date Dose Rate Site ePHEDrine sulfate (5 mg/mL) Given 09/13/2021 8:27 PM EDT 5 mg multi-dose injection Intravenous, PRN, Starting on Thu09/13/21 at 2026, Until Thu09/13/21 at 2052, Anesthesia Intra-op, Routine fentaNYL (pf) (50 mcg/mL) multi-dose Given 09/13/2021 8:17 PM ED T 50 mcg injection Intravenous, PRN, Starting on Thu09/13/21 at 2015, Until Thu09/13/21 at 2052, Anesthesia Intra-op, Routine Given 09/13/2021 8:15 PM EDT 50 mcg lactated ringers infusion New Bag 09/13/2021 8:12 PM EDT Intravenous, CONTINUOUS PRN, Starting on Thu09/13/21 at 2012, Until Thu09/13/21 at 2052, Anesthesia Intra-op ondansetron (pf) (Zofran) (2 mg/mL) inje ction Given 09/13/2021 8:27 PM EDT 4 mg Intravenous, PRN, Starting on Thu09/13/21 at 2026, Until Thu09/13/21 at 2052, Anesthesia Intra-op, Routine propofoL (Diprivan) (10 mg/mL) New Bag 09/13/2021 8:22 PM 25 m cg/kg/min 14.565 mL/hr infusion EDT Intravenous, CONTINUOUS PRN, Starting on Thu09/13/21 at 1951, Until Thu09/13/21 at 2052, Anesthesia Intra-op, Routine propofoL (Diprivan) 10 mg/mL bolus injection Given 03/2021 8:19 PM EDT 200 mg (Anesthesia) Intravenous, PRN, Starting on Thu09/13/21 at 2019, Until Thu09/13/21 at 2052, Anesthesia Intra-op documented in this encounter Care Teams Paint Striping Machine Operator Relationship Specialty Start Date End Date Ally Ortiz, ED TRANSPORTER PCP - General Internal Medicine 04/24/21 [address] [place] [address] documented as of this encounter
--- OUTSIDE RECORDS SUMMARY | 2021-09-27 14:49 | XMS_ITS | Encounter Summary ---
:1960 Author Organization [facility] [place] [address] Care Team Providers Name Role Phone Ally Ortiz APRN Primary Care Provider Reason for Visit Reason Comments Abdominal Pain Auth/Cert Specialty Diagnoses / Procedures Referred By Contact Refer red To Contact Diagnoses Abscess of abdominal wall Abscess Jerod Frost MD [facility] Procedures [facility] [place] [address] Referral ID Status Reason Start Date Expiration Date Visits Requ ested Visits Authorized [id number] 1 1 Encounter Details Date Type Department Care Team Description 09/13/2021 Surgery Main Operating Room Ai Arriaza DE BRIDEMENT SKIN AND Nella Xiao MD SUBCU, FIRST 20 SQ CM, [facility] ABDOMEN (WRVU 1.01) [facility] [place] [address] [place] [address] [phone] Social History Tobacco Use Types Packs/Day Years [...] Sign Reading Time Taken Comments Blood Pressure 133/89 09/13/2021 9:15 PM EDT Pulse 67 09/13/2021 9:15 PM EDT Temperature 36.4 ??C (97.5 ??F) 09/13/2021 8:52 PM EDT Respiratory Rate 11 09/13/2021 9:15 PM EDT Oxygen Saturation 95% 09/13/2021 9:15 PM EDT Inhaled Oxygen Concentration - - Weight 97.1 kg (214 lb) 09/02/2021 11:00 PM EDT Height 149.9 cm (4' 11) 09/02/2021 11:00 PM EDT Body Mass Index 43.22 09/02/2021 11:00 PM EDT documented in this encounter Discharge Summaries Gus Clark MD - 09/13/2021 8:38 AM EDT General Surgery Inpatient - Discharge Summary Patient Name: Jahaira Montgomery Patient Age: 61 y.o. Birthdate: 1960 Admit date: 09/02/2021 Discharge date: 09/19/2021 Admitting Physician: Gabriel Daniel MD Primary Diagnosis: Abdominal pain, abdominal open wound Secondary Diagnosis: Active Hospital Problems Diagnosis ??? Abscess of abdominal wall Resolved Hospital Problems No resolved problems to display. Active Non-Hospital Problems Diagnosis ??? Wound infection after surgery ??? Recurrent abdominal hernia ??? Incarcerated ventral hernia ??? Incarcerated hernia ??? Ostomy nurse consultation HPI: Jahaira Montgomery is a 61 y.o. female with a history of tobacco use, obesity, T2DM (HbA1c 7.1%), chronic knee pain, diverticulitis s/p Lucy's procedure with reversal 03/2019, incarcerated ventral hernia in 04/2020 s/p primary repair, hospitalization in 04/2021 for recurrent incarcerated ventral hernia treated conservatively, and most recently??s/p??ventral??hernia repair with??Ovitex on-lay??mesh??with 2 supra-mesh drains??07/23/[address] Watters. Postoperatively she developed an abscess anterior to the mesh, s/p I&D and eventual closure over a drain. ?? She presented to the ED with sharp left abdominal pain. It was similar to the pain she had in the past. It did not not radiate. It was relatively constant. She denied fevers, chills, cough, SOB, nausea, or vomiting. Her drain has been reportedly putting out about 25mL every other day. Her PO intake was poor. Of note, on exam she had received 2mg dilaudid and was somnolent, limiting her history of present illness. History obtained only in part from the patient, mostly from her two family members. Operations/Major Procedures: - 09/13/2021: DEBRIDEMENT SKIN AND SUBCU, FIRST 20 SQ CM, ABDOMEN (WRVU 1.01) (Midline) Operative Findings: Necrotic skin edge along left lateral aspect of wound and necrotic fat debrided. Hospital Course: Jahaira Montgomery was admitted to the hospital for abdominal pain, similar to her chronic abdominal pain, in the setting of recent ventral hernia repair c/b abd wall abscess requiring I&D, serial wound vac changes, and eventual closure over a GEE drain (prior admission). Admission labs were notable for severe hypokalemia which was corrected while in the hospital. Her GEE drain was removed on hospital day 1. Sutures from the inferior portion of the incision were also removed on hospitalday 1, removal of sutures from the remainder of the wound had to be aborted secondary to poor patient tolerance. Remainder of sutures were removed the following day, requiring IV anxiolytics and liposomal lidocaine cream for pain control. At this time the wound was noted to be dehisced at the umbilicus. The wound was probed with evacuation of old hematoma. A wound vac was placed, however pt did not tolerate presence of wound vac secondary to pain. The wound vac was removed and replaced with wet to dry dressing which was changed daily. On 09/08 20 cc of lidocaine was injected into subcutaneous tissueon left upper incision edge. This was met with immediately relief of pain which lasted for a few hours before the pain returned. On 09/09 a mixture of 10cc 1% lidocaine and 40mg (1cc) of triamcinolone was injected into the left side of Mrs. Montgomery's open incision with significant but temporary relief of pain. On 09/13 Mrs. Montgomery was taken to the operating room for debridement of the left side of her open incision and possible traction neurectomy. The left side of her wound was debrided at that time, however no nerve was identified in the OR so traction neurectomy was not performed. The following day on 09/14 she had a wound vac placed at bedside and she tolerated the procedure well. On 09/15 she had some severe abdominal with ambulation, she was given IV dilaudid x1 with resolution of pain. She then was able to ambulate multiple times later that day with pain adequately controlled with PO meds. Her wound vac was changed at bedside on 09/15 which was not tolerated well. The patient had to be given additional IV Dilaudid on top of pre vac change PO Dilaudid. Given intolerance of wound vac changes, the patient was switched over to receiving Aquacel AG dressing changes. She tolerated the procedure well the day prior and today (09/19). Plan is for her to continue with Aquacel AG dressing changes at home with VNA services 3x a week on a MWF schedule. Mrs. Montgomery is hemodynamically stable, tolerating a full diet, and has been determined medically ready for discharge by the surgery team on 09/19/21. Important Studies and Lab Data: See below. Pathology: none Microbiology: Blood Culture from 09/02: No growth at 5 days. Labs: No CBC, CMP since 09/03 Pending Lab Data at Discharge: none Studies: Results for orders placed or performed during the hospital encounter of 09/02/21 CT Abdomen & Pelvis w Contrast (Exam End: 09/02/2021 6:01 PM) Impression 1. Interval placement of a catheter into the subcutaneous fat of the lower anterior abdominal wall. There is persistent air and fluid in this region although it has improved. Hazy soft tissue stranding consistent with ongoing infection/inflammation. Cannot exclude an enterocutaneous fistula given technique utilized. Correlation with operative history is needed as none has been provided. Thank you for letting us participate in the care of this patient. If you are a health care provider and have any questions regarding this report, please contact the number below. For patients who have questions please contact the health nursing care partner that requested your imaging first. Discharge Exam: Last value Range last 12 hrs Temperature Temp: 36.8 ??C (98.2 ??F) Temp: [36.7 ??C (98.1 ??F)-36.8 ??C (98.2 ??F)] Heart Rate Heart Rate: 64 Heart Rate: -- Blood Pressure BP: 137/76 BP: (130-141)/(71-76) Respiratory Rate Resp: 16 Resp: [16] SpO2 SpO2: 96 % SpO2: [95 %-96 %] I/Os: I/O last 3 completed shifts: In: 900 [P.O.:900] Out: 25 [Other:25] No intake/output data recorded. Physical exam: General: Alert, in distress/ pain with movement Neuro: Oriented, speech normal, moves all extremities spontaneously HEENT: No scleral icterus, atraumatic, normocephalic Cardio: Regular rhythm Pulm: Breathing comfortably on room air Abd: Protuberant abdomen, midline incision with Aquacel dressing in place, small spot of erythema onabdominal wall (unchanged from previous) : Voiding spontaneously Extremities: Movement of all 4 extremities, no edema of ankles or fingers Discharge Plans: Discharge to: Home with VNA services VNA: Yes, for wound care Please evaluate Jahaira Montgomery for admission to Home Health. [address] [address] Phone Number: [phone] (home) Date of : 1960 Inpatient DOCUMENTATION FOR VNA SERVICES (INCLUDING THOSE PATIENTS WITH MEDICARE COVERAGE REQUIRING HOME VNA SERVICES AND/OR HOSPICE SERVICES) PATIENT'S LOCATION: Jahaira Montgomery [address] [address] Recruiting Specialist's Name: Self In discussion with the attending physician, it is certified that this patient is under their care and that they, or a Nurse Practitioner,Clinical Nurse specialist or Physician Chancellor who is working directly with them, had a face to face encounter that meets the physician face to face encounter requirements with this patient on The encounter with the patient was in whole, or in part, for the following medical condition, which is the primary reason for home health care services: abdominal wound, open, dressing changes In discussion with the provider, it is certified that, based on their findings, the following services are medically necessary for home health services. To provide the following care/treatments with the clinical findings supporting the need for servicesas follows: HOME CARE ORDERS: RN ORDERS:Assess wound or incision, vital signs, cardiopulmonary status, nutrition, hydration, elimination, meds effectiveness and management; reinforce education re health issues Wound care instructions: Please change the Aquacel AG Advantage dressing on a M, W, F schedule. Please use scissors to createa circular form with the dressing. The [place] should cover the inside of the wound well. No healing tissue should be exposed. You can apply a Mepilex dressing on top afterwards. Please write the date of change on top of the Mepilex so that the visiting nurses can know when the last dressing change wasperformed. Location: Midline abdomen Cleaning solutions and instructions: N/A Packing material: Aquacel AG Advantage (instructions above) Dressing materials and instructions: Mepilex (instructions above) Frequency: M, W, F schedule OT: assess and continue rehab for managing ADL's. HOME HEALTH CARE AGENCY: [facility]. [address] [place] [id number] Start of care: 24-48hrs after discharge Please note that any additional orders needs or changes will need to be obtained from this patient'sPCP: Ally Ortiz, STRIP CUTTING MACHINE OPERATOR [id number] [facility] [id number] All A agencies which cover the area of patient's residence have been reviewed, either verbally or in writing, and patient/family have chosen the home health care agency noted Discharge Conditions/Prognosis: Stable Discharge Medications: The following medications have been prescribed for you. If you notice any adverse reactions to your medications, please contact your primary care physician immediately or go to the nearest Emergency Department. Your Medications New Medications Dose Details gabapentin 300 mg Cap Commonly known as: Neurontin Take 2 capsules by mouth 3 times daily. 600 mg Quantity: 90 capsule Refills: 12 HYDROmorphone 2 mg Tab Commonly known as: Dilaudid Take 1 tablet by mouth every 4 hours as needed for Pain (for wound changes only). 2 mg Quantity: 20 tablet Refills: 0 Continued medications, unchanged Dose Details atorvastatin 20 mg Tab Commonly known as: Lipitor Take 20 mg by mouth every evening. 20 mg Refills: 0 clopidogreL 75 mg Tab Commonly known as: Plavix Take 75 mg by mouth daily. 75 mg Refills: 0 doxycycline monohydrate 100 mg Cap Commonly known as: Monodox Take 1 capsule by mouth 2 times daily for 41 days. 100 mg Quantity: 82 capsule Refills: 0 hydroCHLOROthiazide 25 mg Tab Commonly known as: Hydrodiuril Take 25 mg by mouth daily. 25 mg Refills: 0 metroNIDAZOLE 500 mg Tab Commonly known as: Flagyl Take 1 tablet by mouth 3 times daily for 41 days. 500 mg Quantity: 123 tablet Refills: 0 STOPPED Medications acetaminophen 500 mg Tab Commonly known as: Tylenol Extra Strength Eszopiclone 1 mg Tab Commonly known as: LUNESTA polyethylene glycoL 17 gram/dose Powd Commonly known as: Miralax senna 8.6 mg Tab Commonly known as: Senokot senna-docusate 8.6-50 mg Tab Commonly known as: Pericolace Updated Allergies/ADRs: Allergies Allergen Reactions ??? Aspirin Nausea Only Scheduled Appointments: Future Appointments Date Time Provider Department Center 09/30/2021 1:30 PM Werner Harrell MD [facility] ID [id number] [facility] Instructions Given to Patient at Discharge:. Thank you for trusting [facility] with your care. We will see you in clinic in 2 weeks for checkup. You are able to shower, but please refrain from bathing or hot tubs until after your follow-up clinic appointment. Please do not scrub your wound, but let soapy water run over it to clean it. We encourage mobility to build muscle and balance, but we recommend against heavy lifting (more than 10 pounds, or a gallon of milk) and straining yourself in any way. Please take tylenol and ibuprofen for pain, along with Dilaudid 2mg PO PRN that we have prescribed for you. Please do not hesitate to call the Surgery Clinic if your pain is not adequately controlled. In addition, please reach out to the Surgery Clinic, your primary care physician, or present to the emergency room if you experience persistent nausea, vomiting, abdominal pain, inability to have a bowel movement or pass flatus, fevers, chills, or if your wound appears infected (becomes red, smells, pus). We have not halted any of the medications you take at home. Please continue taking all of the medications you took before this hospitalization as you did before. CC: Ally Ortiz APRN Signed: Gus Clark MD Acute Care Surgery Service Team Pager #[phone] 09/19/2021 10:18 AM documented in this encounter Discharge Instructions Patient InstructionsGus Clark MD - 09/19/2021 10:24 AM EDT Discharge Instructions You were were admitted and treated for the following diagnosis: abdominal pain, abdominal wound dehiscence, open wound CALL YOUR PHYSICIAN IF: You have a fever greater than 101F You have diarrhea or vomiting for >24 hours, or stop having bowel movements and passing flatus You have worsening pain, not controlled with your pain medication. You develop redness, swelling, or new drainage from your wounds Follow up: Future Appointments Date Time Provider Department Center 09/30/2021 1:30 PM Werner Harrell MD [facility] ID [id number] [facility] Narcotics: You may be given a prescription for a narcotic medication immediately following your surgery. You are to use them only for wound changes NEEDED. Narcotics do not reduce inflammation and it is inflammation that is usually a major cause of pain after surgery. Narcotics have many side effects such as constipation, lightheadedness, dizziness, sedation, confusion, nausea and vomiting. Driving and the use of alcohol are not recommended while you are using narcotic pain medications. Non-steroidal anti-inflammatories (NSAIDS) such as aspirin, and ibuprofen (Advil, Motrin) are medications that reduce pain and inflammation. To reduce your chance of side effects, it is recommended that you use Tylenol as needed for pain andthen NSAIDs and use narcotics as the last resort. Alternative means of pain relief such as rest and relaxation, positioning, as well as decreasing stimulants such as coffee, tea, soft drinks, and nicotine may also help to alleviate pain. If you continue to experience significant pain 4-5 days after your discharge, it may be necessary selina re-evaluated by your physician. Driving Restrictions: - No driving if you are too sore to enter or exit your vehicle comfortably, or if you are too sore to easily check your blind spot. No driving while using prescription pain medications Activities: - Discuss return to work or school with your provide at your follow up appointment in the trauma clinic. - Increase your activity slowly. If it hurts don't do it, but try again the following day. - You may tire easily, so frequent naps may be necessary.. - Talk with your doctor about when you can return to work or school. - You may take a shower but have someone nearby in case you need help. Diet: Eat a well-balanced diet. Fresh fruits, vegetables and fiber-containing foods are recommended. This will assist in wound healing. Recommendations: - Take it easy for two weeks. Remember, If it hurts, don't do it. - Take several slow, short walks each day for the first two weeks, and gradually increase your distance. We recommend at least 4 times a day. Wound Care: - You can shower per usual routine - Do not submerge wounds under water (avoid spas, pools and bathtubs) until fully healed. - Do not use creams, oils, or ointments on the wound. - See follow-up appointments for removal of sutures/shelley. Comfort: - Some soreness can be expected. - Take your pain medication as needed and prescribed. - Taper use of pain medication as pain lessens. Follow up appointments: 1. You will have follow-up appointments at [facility] as indicated in the ???Future Appointments and Orders?? section of your discharge summary. If X-rays or CT scans have been ordered for you prior to thisappointment you will need to report to the Radiology department, desk 3T, 1 hour prior to your clinic appointment time. 2. If you do not have a scheduled follow-up appointment listed at the time of discharge, you will benotified of your scheduled appointment on the next business day. Please call [phone] if you do not hear from us by that time, as your timely follow-up is very important to us. Your care was managed by the Trauma and Acute Care Surgery Team at [facility]. If you have any questions or concerns, please feel free to contact us. Provider Contact Information: General Surgery: [facility] (after business hours): CC: Primary Care Physician: Ally Ortiz APRN documented in this encounter Medications at Time of Discharge Medication Sig Dispensed Refills Start Date End Date gabapentin (Neurontin) 300 Take 2 capsules 90 capsule 12 09/2021 mg Capsule by mouth 3 times daily. HYDROmorphone (Dilaudid) 2 Take 1 tablet by 20 tablet 0 09/2021 mg Tablet mouth every 4 hours as needed for Pain (for wound changes only). metroNIDAZOLE (Flagyl) 500 Take 1 tablet by 123 tablet 0 11/202110/02/2021 mg Tablet mouth 3 times daily for 41 days. doxycycline monohydrate Take 1 capsule 82 capsule 0 08/23/19 22 10/02/2021 (Monodox) 100 mg Capsule by mouth 2 times daily for 41 days. clopidogreL (Plavix) 75 mg Take 75 mg by 0 Tablet mouth daily. atorvastatin (Lipitor) 20 mg Take 20 mg by 0 05/15 Tablet mouth every evening. hydroCHLOROthiazide Take 25 mg by 0 04/22/2021 (Hydrodiuril) 25 mg Tablet mouth daily. documented as of this encounter Progress Notes Dilip Dawson RN - 09/19/2021 11:18 AM EDT Patient discharge to home with VNA. IV removed, site benign. My assessment remains unchanged from myprevious assessment. RN Discussed pain management with patient, pain tolerable. Patient medicated prior to discharge. Patient has all belongings and supplies needed. Patient received After Visit Summary and prescriptions. These were reviewed, patient verbalizes understanding of AVS. All questions answered. Patient encouraged to call with questions or concerns. Patient discharged to home with family. Dilip Dawson RN Gus Clark MD - 09/19/2021 9:33 AM EDT ID/MECHANISM OF INJURY: Jahaira Montgomery is a 61 y.o. female S/p ventral hernia repair, abscess, abdominal wall debridement, open healing wound OR CASE INFORMATION: 09/13/2021 Procedure(s): DEBRIDEMENT SKIN AND SUBCU, FIRST 20 SQ CM, ABDOMEN (WRVU 1.01) FOLLOW-UP NEEDED: Does pt need to f-u with surgeon or LUBRICATING ENGINEER (please indicate reason if attending provider): LUBRICATING ENGINEER How soon should TACS f/u be? The patient has an appointment with ID on 09/30. If we can get her to be able to be seen by us on the that would be ideal given that she lives 2 hours away. Her appt with ID is at 1:30 pm. Does patient need imaging prior to TACS f/u? No Are CT/MRI Safety questions complete (if needed)? No, n/a Does patient have shelley/sutures? When should they be removed? What service is responsible? No Does patient need labs with TACS f/u? No Follow-up with other services? No Advise of Service and needs. Imaging orders entered: No, n/a Radiology Safety questions done for MRI/CT? N/A New or current ostomy? Ostomy nurse shared visit N/A Mobility concerns: Fully ambulatory Wound vac (requires 60min clinic visit) N/A On vent? If Yes - Needs to have someone from facility and supplies. N/A On Dialysis: N/A INCIDENTAL FINDINGS Incidental Findings (yes/no): No OPIOID CONSENT/NARCOTIC AGREEMENTS Current Month Narcotic Consent? N/A D/c to: Home with VNA services If Rehab - Rehab Name: PCP Name: TAMMY Marx MD 09/19/2021 Racehl Mendoza RN - 09/19/2021 4:01 AM EDT OUTCOME EVALUATION NOTE: OUTCOME SUMMARY: Pt A&O x 4, VSS on RA. Pt continues to struggle with pain control. ABd wound with dry gauze dressing in place. No drainage noted. Patient progressing towards d/c goals appropriately at this time. Patient's pain adequately controlled with scheduled and PRN medications, see MAR for medications given. Will continue to monitor and help patient reach d/c goals. PLAN MOVING FORWARD: Pain control Mobilize D/C planning INDIVIDUALIZED FALL PREVENTION: Patient is currently a high risk to Fall. Patient educated on bed/chair alarm, demonstrates proper use of call glover and verbalizes understanding of fall preventions implemented. Patient-specific fall risk factors per assessment: [current deficits]: Pain, wound management, Medications, Hospital Environment, Impaired Mobility Assistance [level of assistance required for transfers and ambulation]: SBA Supervision [direct monitoring required during toileting and ADLs]: Eyes on with ADL's Surveillance [continuous indirect monitoring]: Masimo, Purposeful Rounding, Nurse Knowledge Exchangeat Bedside, Bed Alarm Set Gabriel Daniel MD - 09/18/2021 2:51 PM EDT Acute Care Surgery Inpatient Progress Note ID: Jahaira Montgomery is a 61 y.o. female with a history of tobacco use, obesity, T2DM (HbA1c 7.1%), chronic knee pain, diverticulitis s/p Lucy's procedure with reversal 03/2019, incarcerated ventral hernia in 04/2020 s/p primary repair, hospitalization in 04/2021 for recurrent incarcerated ventral herniatreated conservatively, and most recently??s/p??ventral??hernia repair with??Ovitex on-lay??mesh??with 2 supra-mesh drains??07/23/21. Postoperatively she developed an abscess anterior to the mesh, s/p I&D and eventual closure over a drain on prior admission admitted for abdominal pain, found to have skin dehiscence and hypersensitive left sided abdominal wall. 09/13/2021: Abdominal wall debridement and local field block 09/14/2021: Wound vac placed at bedside 09/16/2021: Wound vac change at bedside Subjective/Interval Events: -APS consulted, recommend Dilaudid scale 2 to 6 mg every 4 as needed, increasing gabapentin to 600 3times daily -Pain control improved last night with new regimen -No acute events overnight O: Vitals: Patient Vitals for the past 24 hrs: BP Temp Temp src Pulse Resp SpO2 09/18/21 1240 162/80 36.8 ??C (98.2 ??F) Oral 64 16 95 % 09/18/21 1210 136/78 -- Oral 61 16 92 % 09/18/21 0803 155/80 36.8 ??C (98.2 ??F) Oral 63 16 94 % 09/18/21 0316 129/66 36.8 ??C (98.2 ??F) Oral -- 16 96 % 09/18/21 0200 -- -- -- -- -- 97 % 09/17/21 2336 148/71 36.8 ??C (98.2 ??F) Oral -- 18 96 % 09/17/21 2053 (!) 143/92 36.8 ??C (98.2 ??F) Axillary -- 18 91 % 09/17/21 1525 143/69 37 ??C (98.6 ??F) Oral -- 17 90 % General: Alert, in distress/ pain with movement Neuro: Oriented, speech normal, moves all extremities spontaneously HEENT: No scleral icterus, atraumatic, normocephalic Cardio: Regular rhythm Pulm: Breathing comfortably on room air Abd: Protuberant abdomen, midline incision with wound vac in place, small spot of erythema on abdominal wall (unchanged from previous) : Voiding spontaneously Extremities: Movement of all 4 extremities, no edema of ankles or fingers Labs: - No new Micro: - Blood cxs collected on 09/02 final read: no growth Images: no new A/P: 61-year-old woman with recent recurrent hernia repair with overtax onlay complicated by abdominal wall abscess status post incision and drainage, serial VAC OR changes, and eventual closure over drain 2 weeks ago. She presented with recurrent left abdominal pain, skin incision dehiscence, and hypersensitive left abdominal wall. Now 5 Days Post-Op from abdominal wound debridement (09/13) with her wound vac was changed at bedside 09/16. Since the vac change she continues to endorse 10/10 pain, APS was consulted yesterday (09/17) and adjustments were made to her pain regimen. She appears to have improved pain control with the new regimen thus far. We attempted a wound VAC change at bedside today, due to severe pain we did not replace the wound VAC. Her wound was packed and covered with an ABD pad. Going forward we will plan to haveher wound packed with Aquacel Ag with dressing changes every other day. If she is able to tolerate dressing change tomorrow, she may be able to be discharged on this dressing change schedule with VNA to [facility]. Plan: Neuro/ Pain: - Scheduled Tylenol - Gabapentin 600 TID - Lidociane patches - 2-6mg Dilaudid PRN CV: - Hemodynamically stable, CTM - Cont home Atorvastatin, Plavix, HCTZ Resp: - Encourage IS, OOB - No active interventions, CTM GI: - Antiemetics PRN - Miralax daily - Senna-docusate PRN FEN: F: PO ad patrice E: CTM, supplement prn N: Carb Control diet 60/60/75 CHO counting level 2 Renal/: - Adequate UOP Heme: - DVT ppx: Lovenox daily, SCDs - Cont home Plavix ID: - Cont home Doxycycline and flagyl until ID appointment 09/30 for prior wound cultures on last admission Endo: - Insulin sliding scale Wound: - Wound vac removed at bedside today 09/18, wound packed and covered with ABD pad - Plan for Aquacel AG wound packing and dressing changes every other day - s/p debridement in OR 09/13. Wound vac placed at bedside 09/14, wound vac change 09/16. Dispo: - PT/OT consulted - Floor status Code Status: Attempt Cardiopulmonary Resuscitation - Inpatient Troy Weaver MD 09/18/21 [facility] 5055 Acute Care Surgery Attending Addendum: I have seen this patient and agree with the above note with the following additions and/or modifications. Comfortable on our arrival as she had been pre-medicatedwith dilaudid for the VAC change. Despite using saline to remove the dressing she was in exquisite pain. This does not appear to be a durable discharge plan for home wound care so will move towards an Aquacel dressing covered by ABD. Will change this at the bedside tomorrow and if tolerated plan to discharge with Aquacel Ag to allow for every other day dressing changes. Rachel Mendoza RN - 09/18/2021 2:25 AM EDT OUTCOME SUMMARY: ?? Pt A&O x 4, VSS on RA. Abdominal Wound vac in place with minimal serosanguinous output Pt with increased pain throughout day. Pain medications increased on previous shift and pt states her pain control is much better. Up to BSC and using bedpan for elimination. Patient progressing towards d/c goals appropriately at this time. Patient's pain adequately controlled with scheduled and PRN medications, see MAR for medications given. ?? Plan Moving Forward ?? Will continue to monitor and help patient reach d/c goals. ?? PLAN MOVING FORWARD: ?? Pain control Mobilize Wound vac D/C planning ?? INDIVIDUALIZED FALL PREVENTION: Patient is currently a high risk to Fall. Patient educated on bed/chair alarm, demonstrates proper use of call glover and verbalizes understanding of fall preventions implemented. Patient-specific fall risk factors per assessment: [current deficits]: Wound vac, Pain, Medications,Hospital Environment, Impaired Mobility, Recent Surgery ?? Assistance [level of assistance required for transfers and ambulation]: SBA ?? Supervision [direct monitoring required during toileting and ADLs]: Hands on with ADL's ?? Surveillance [continuous indirect monitoring]: Masimo, Purposeful Rounding, Nurse Knowledge Exchangeat Bedside, Bed Alarm Set Lena Walton RN - 09/17/2021 6:29 PM EDT OUTCOME EVALUATION NOTE: OUTCOME SUMMARY: Pt AOx4 throughout shift. VSS. Pain not well controlled throughout shift. ACS consulted to assist w/pain management; medication regimen adjusted. Wound vac therapy continued at continuous -125. BM today. PLAN MOVING FORWARD: Mobilize Pain management D/C planning INDIVIDUALIZED FALL PREVENTION INTERVENTIONS: Patient-specific fall risk factors per assessment: [current deficits]: Pain medication, wound vac, hospital environment, Assistance [level of assistance required for transfers and ambulation]: Standby Supervision [direct monitoring required during toileting and ADLs]: Eyes on Surveillance [continuous indirect monitoring]: Masimo, bed alarm, purposeful rounding, room close tonurses station : Stephenie Norwood MD - 09/17/2021 3:21 PM EDT Acute Pain Service Daily Visit Note Jahaira Montgomery is being evaluated for the management of their acute somatic nociceptive pain with a neuropathic component. Interval History: Jahaira reports that she has been in excruciating 10/10 pain which comes and goes. Pain is described as sharp, lightning-like and radiating outwards from the left side of her wound vac. The only alleviating factor is when she does not move at all. Problem List: Active Hospital Problems Diagnosis ??? Abscess of abdominal wall Resolved Hospital Problems No resolved problems to display. Active Non-Hospital Problems Diagnosis ??? Wound infection after surgery ??? Recurrent abdominal hernia ??? Incarcerated ventral hernia ??? Incarcerated hernia ??? Ostomy nurse consultation Review of Systems: Sedation Level: awake, alert Pruritis/Skin: denies GI/Bowels/Nausea: denies Vital Signs: Last Set of Vitals BP 124/73 (BP Location (NBP): Left arm, Patient Position: Sitting) Pulse 66 Temp 36.9 ??C (98.4 ??F) (Oral) Resp 17 Ht 149.9 cm (4' 11) Wt 97.1 kg (214 lb) SpO2 95% BMI 43.22 kg/m?? Pain Scores: 10 Physical Exam: Affect: appropriate Pain Behaviors: guarding, tearful Pertinent Medications: Tylenol 1000mg Q6hrs Gabapentin 300mg TID Dilaudid PO 2mg Q 4hrs PRN, with an additional 2mg after 30min Ibuprofen 400mg Q6hrs PRN Lido patches x3 Assessment: Jahaira is a 61 yo female with multiple abdominal surgeries in relatively recent past with persistent pain from abdominal incision complicated by abscess s/p I+D. Admitted for left-sided abd pain and undergoing serial wound debridements and vac changes. Patient currently with poor pain control. Jahaira reports that she had good relief with slightly higher doses of PO Dilaudid (4mg). Plan: -Consider changing PO Dilaudid regimen to 2-6mg PO Q4hrs PRN -Consider increasing gabapentin to 600mg TID if tolerated -Continue all other multimodal adjuncts Possible weaning recs for discharge: Dilaudid PO 2-6mg Q4hrs PRN for 2 days Dilaudid PO 2-4mg Q4hrs PRN for 2 days Dilaudid PO 2-4mg Q6hrs PRN for 2 days Dilaudid PO 2mg PRN for subsequent days Plan was discussed with patient, and ACS team. Recommendations as above, please page if further consultation required. Cassi Muñiz MD 09/17/2021 Acute Pain Service Pager: [phone] I have seen and examined the patient. I have reviewed Dr. Muñiz's note and agree with the findings, assessment and plan. STEPHENIE NORWOOD MD Gabriel Daniel MD - 09/17/2021 12:10 PM EDT Acute Care Surgery Inpatient Progress Note ID: Jahaira Montgomery is a 61 y.o. female with a history of tobacco use, obesity, T2DM (HbA1c 7.1%), chronic knee pain, diverticulitis s/p Lucy's procedure with reversal 03/2019, incarcerated ventral hernia in 04/2020 s/p primary repair, hospitalization in 04/2021 for recurrent incarcerated ventral herniatreated conservatively, and most recently??s/p??ventral??hernia repair with??Ovitex on-lay??mesh??with 2 supra-mesh drains??07/23/21. Postoperatively she developed an abscess anterior to the mesh, s/p I&D and eventual closure over a drain on prior admission admitted for abdominal pain, found to have skin dehiscence and hypersensitive left sided abdominal wall. 09/13/2021: Abdominal wall debridement and local field block 09/14/2021: Wound vac placed at bedside 09/16/2021: Wound vac change at bedside Subjective/Interval Events: - No acute events overnight - Wound vac change, suction holding - Continues to have 10/10 pain post-vac change, given PRN dilaudid IV and PO with minimal relief O: Vitals: Patient Vitals for the past 24 hrs: BP Temp Temp src Resp SpO2 09/17/21 1104 124/73 36.9 ??C (98.4 ??F) Oral 17 95 % 09/17/21 0826 151/84 36.8 ??C (98.2 ??F) Oral 18 92 % 09/17/21 0424 129/72 36.7 ??C (98.1 ??F) Oral 16 94 % 09/16/210 138/69 37 ??C (98.6 ??F) Oral 16 96 % 09/16/212007 117/68 37 ??C (98.6 ??F) Oral 16 96 % 09/16/21 192 125/68 37 ??C (98.6 ??F) Oral 18 97 % 09/16/21 163 159/84 36.7 ??C (98.1 ??F) Oral 16 95 % General: Alert, in distress/ pain with movement Neuro: Oriented, speech normal, moves all extremities spontaneously HEENT: No scleral icterus, atraumatic, normocephalic Cardio: Regular rhythm Pulm: Breathing comfortably on room air Abd: Protuberant abdomen, midline incision with wound vac in place, small spot of erythema on abdominal wall (unchanged from previous) : Voiding spontaneously Extremities: Movement of all 4 extremities, no edema of ankles or fingers Labs: - No new Micro: - Blood cxs collected on 09/02 final read: no growth Images: no new A/P: 61-year-old woman with recent recurrent hernia repair with overtax onlay complicated by abdominal wall abscess status post incision and drainage, serial VAC OR changes, and eventual closure over drain 2 weeks ago. She presented with recurrent left abdominal pain, skin incision dehiscence, and hypersensitive left abdominal wall. Now 4 Days Post-Op from abdominal wound debridement (09/13) with wound vac placed at bedside 09/14. Underwent wound vac change yesterday with significant pain. Was given PRN dilaudid 4mg PO and 0.2mg dilaudid IV before procedure. Since the vac change she continues to endorse 10/10 pain that is minimally relieved with current pain regimen. Mrs. Montgomery refused APS services last week, but today was amenableto the idea. We will touch base them today (09/17). If she can tolerate the wound vac we can plan to d/c later this week. We reached out to her PCP to ask if they would be able to change daily wet to drydressings should Ms. Montgomery not tolerate a wound vac- they report not having the time/resources daily. She has VNA for wound vac changes set up. - Speak to APS for care home pain management - Wound Vac change at bedside 09/18 Plan: Neuro/ Pain: - Scheduled Tylenol, Ibuprofen prn, Gabapentin, Lidociane patches, Dilaudid PRN CV: - Hemodynamically stable, CTM - Cont home Atorvastatin, Plavix, HCTZ Resp: - Encourage IS, OOB - No active interventions, CTM GI: - Antiemetics PRN - Miralax daily - Senna-docusate PRN FEN: F: PO ad patrice E: CTM, supplement prn N: Carb Control diet 60/60/75 CHO counting level 2 Renal/: - Adequate UOP Heme: - DVT ppx: Lovenox daily, SCDs - Cont home Plavix ID: - Cont home Doxycycline and flagyl until ID appointment 09/30 for prior wound cultures on last admission Endo: - Insulin sliding scale Wound: - Wound vac placed in open wound, set to 125 suction Prophy: Resp: OOB, IS GI: antiemetics PRN DVT: Lovenox, IPCs, OOB Dispo: - PT/OT consulted - Floor status Code Status: Attempt Cardiopulmonary Resuscitation - Inpatient Gus Clark MD 09/17/21 [facility] 5054 Acute Care Surgery Attending Addendum: I have seen this patient and agree with the above note with the following additions and/or modifications. Pain continues to be problematic, PS help appreciated. Suspect a focal suture causing her pain and consider an alternative dressing plan with VAC change tomorrow. Adonis Little - 09/17/2021 11:19 AM EDT Narrative:Follow-up visit for continued assessment and support.? Assessment:Patient coping positively with stresses of illness/hospitalization at this time. Patient was awake, alert, oriented and in bed. Patient says that she is hoping to get better and go home and has two children. Patient is taking one day at time and seems to be calm. ?? Intervention and Outcome:Provided emotional, spiritual support and listening presence.??Theatrical Dresser services accepted. Conversation to build trusting relationship. Provided pastoral presence. Provided spiritual guidance. ?? Follow-up: yes ?? Time in Direct Care:10 Mins Adonis isaias 09/17/2021 Rachel Mendoza RN - 09/17/2021 2:35 AM EDT OUTCOME EVALUATION NOTE: OUTCOME SUMMARY: Pt A&O x 4, VSS on RA. Wound vac changed on previous shift. Pt with increased pain post drsg change. Pain control improved after extra medication given. Wound vac with scant serosanguinous drainage. Up to BSC for elimination. Patient progressing towards d/c goals appropriately at this time. Patient's pain adequately controlled with scheduled and PRN medications, see MAR for medications given. Plan Moving Forward Will continue to monitor and help patient reach d/c goals. PLAN MOVING FORWARD: Pain control Mobilize Wound vac D/C planning INDIVIDUALIZED FALL PREVENTION: Patient is currently a high risk to Fall. Patient educated on bed/chair alarm, demonstrates proper use of call glover and verbalizes understanding of fall preventions implemented. Patient-specific fall risk factors per assessment: [current deficits]: Wound vac, Pain, Medications,Hospital Environment, Impaired Mobility, Recent Surgery Assistance [level of assistance required for transfers and ambulation]: SBA Supervision [direct monitoring required during toileting and ADLs]: Hands on with ADL's Surveillance [continuous indirect monitoring]: [place], Purposeful Rounding, Nurse Knowledge Exchangeat Bedside, Bed Alarm Set arheen Lafleur RN - 09/16/2021 6:14 PM EDT OUTCOME EVALUATION NOTE: ?? OUTCOME SUMMARY: ?? Patient a/ox4. Patient's pain well controlled until wound vac change this afternoon. Pain 10/10 after vac change, 1x dose of IV Dilaudid given. Pain still not controlled w/ PO PRN Dilaudid, team paged.VSS on RA. Incisional wound vac to abdomen C/D/I, set to -125mmHG, no output this shift. PIV replaced, new 20G in R arm, capped. Voiding in BSC. LBM 09/16. Tolerating carb control diet. BG well controlled with insulin. ?? PLAN MOVING FORWARD: ?? Pain control Mobilize Wound vac to -125 D/C planning ?? INDIVIDUALIZED FALL PREVENTION: Patient is currently a high risk to Fall. Patient educated on bed/chair alarm, demonstrates proper use of call glover and verbalizes understanding of fall preventions implemented. Patient-specific fall risk factors per assessment: [current deficits]: Wound vac, Pain, Medications,Hospital Environment, Impaired Mobility, Recent Surgery ?? Assistance [level of assistance required for transfers and ambulation]: SBA ?? Supervision [direct monitoring required during toileting and ADLs]: Hands on with ADL's ?? Surveillance [continuous indirect monitoring]: [place], Purposeful Rounding, Bed Alarm Set Ai Arriaza MD - 09/16/2021 11:40 AM EDT Acute Care Surgery Inpatient Progress Note ID: Jahaira Montgomery is a 61 y.o. female with a history of tobacco use, obesity, T2DM (HbA1c 7.1%), chronic knee pain, diverticulitis s/p Lucy's procedure with reversal 03/2019, incarcerated ventral hernia in 04/2020 s/p primary repair, hospitalization in 04/2021 for recurrent incarcerated ventral herniatreated conservatively, and most recently??s/p??ventral??hernia repair with??Ovitex on-lay??mesh??with 2 supra-mesh drains??07/23/21. Postoperatively she developed an abscess anterior to the mesh, s/p I&D and eventual closure over a drain on prior admission admitted for abdominal pain, found to have skin dehiscence and hypersensitive left sided abdominal wall. 09/13/2021: Abdominal wall debridement and local field block 09/14/2021: Wound vac placed at bedside 09/16/2021: Plan to change wound vac Subjective/Interval Events: - No acute events overnight - Pt continues to complain of abd pain with movement 09/22, PO dilaudid effective for pain control O: Vitals: Patient Vitals for the past 24 hrs: BP Temp Temp src Resp SpO2 09/16/21 1138 -- 37 ??C (98.6 ??F) Oral 15 -- 09/16/21 0748 155/79 36.7 ??C (98.1 ??F) Oral 14 96 % 09/16/21 0317 143/71 36.8 ??C (98.2 ??F) Oral 16 97 % 09/15/21 2342 126/68 36.7 ??C (98.1 ??F) Oral 18 93 % 09/15/21 2250 142/70 36.8 ??C (98.2 ??F) Oral 20 91 % 09/15/21 1942 121/64 36.6 ??C (97.9 ??F) Oral 18 95 % 09/15/21 1548 116/64 36.8 ??C (98.2 ??F) Oral 16 94 % General: Alert, no acute distress Neuro: Alert and oriented, speech normal, moves all extremities spontaneously HEENT: No scleral icterus, atraumatic, normocephalic Cardio: Regular rhythm Pulm: Breathing comfortably on room air Abd: Protuberant abdomen, midline incision with wound vac in place, small new spot of erythema on abdominal wall : Voiding spontaneously Extremities: Movement of all 4 extremities, no edema of ankles or fingers Labs: - No new Micro: - Blood cxs collected on 09/02 final read: no growth A/P: 61-year-old woman with recent recurrent hernia repair with overtax onlay complicated by abdominal wall abscess status post incision and drainage, serial VAC OR changes, and eventual closure over drain 2 weeks ago. She presented with recurrent left abdominal pain, skin incision dehiscence, and hypersensitive left abdominal wall. Now 3 Days Post-Op from abdominal wound debridement (09/13) with wound vac placed at bedside 09/14. She is tolerating the vac well though with some manageable discomfort in the left side of the wound. Planfor wound vac change today (09/16) and if she tolerates it, plan to d/c her home soon with VNA help. Plan: Neuro/ Pain: - Scheduled Tylenol, Ibuprofen prn, Gabapentin, Lidociane patches, Dilaudid PRN - 4mg of Dilaudid ordered to be administered prior to wound vac change per previous note CV: - Hemodynamically stable, CTM - Cont home Atorvastatin, Plavix, HCTZ Resp: - Encourage IS, OOB - No active interventions, CTM GI: - Antiemetics PRN - Miralax daily - Senna-docusate PRN FEN: F: PO ad patrice E: CTM, supplement prn N: Carb Control diet 60/60/75 CHO counting level 2 Renal/: - Adequate UOP Heme: - DVT ppx: Lovenox daily, SCDs - Cont home Plavix ID: - Cont home Doxycycline and flagyl until ID appointment 09/30 for prior wound cultures on last admission Endo: - Insulin sliding scale Wound: - Wound vac placed in open wound, set to 125 suction, plan to change today, Saturday 09/16 Prophy: Resp: OOB, IS GI: antiemetics PRN DVT: Lovenox, IPCs, OOB Dispo: - PT/OT consulted - Floor status Code Status: Attempt Cardiopulmonary Resuscitation - Inpatient Gus Clark MD 09/16/21 [facility] 5054 Attending Addendum I have seen and examined the patient, I have reviewed the vitals, labs and pertinent imaging. I havediscussed the documentation above and agree, with the following comments: Small new area of erythema on left abdominal wall today - marked at bedside. Plan for vac change today to see whether this is feasible for wound care as an outpatient. Ai Arriaza MD [id number] Rachel Mendoza RN - 09/16/2021 6:00 AM EDT OUTCOME EVALUATION NOTE: OUTCOME SUMMARY: Pt A&O x 4, VSS on RA. Pt continues to complain of abd pain with movement 09/22, PO dilaudid effective for pain control. Abd wound vac in place, no output noted. Pt up to BSC for elimination. Patient progressing towards d/c goals appropriately at this time. Patient's pain adequately controlled withscheduled and PRN medications, see MAR for medications given. Will continue to monitor and help patient reach d/c goals. PLAN MOVING FORWARD: Pain control Mobilize Wound vac PO antibiotics D/C planning INDIVIDUALIZED FALL PREVENTION: Patient is currently a high risk to Fall. Patient educated on bed/chair alarm, demonstrates proper use of call glover and verbalizes understanding of fall preventions implemented. Patient-specific fall risk factors per assessment: [current deficits]: Wound vac, Pain, Medications,Hospital Environment, Impaired Mobility, Recent Surgery Assistance [level of assistance required for transfers and ambulation]: SBA Supervision [direct monitoring required during toileting and ADLs]: Hands on with ADL's Surveillance [continuous indirect monitoring]: Abner Miller Roundmarybel, Nurse Knowledge Exchangeat Bedside, Bed Alarm Set Farheen Doll RN - 09/15/2021 5:36 PM EDT OUTCOME EVALUATION NOTE: OUTCOME SUMMARY: Patient a/ox4. Patient reports pain 3/10 without moving and 7-10/10 with walking / repositioning. Severe pain after ambulating this morning, team notified, 1x of IV Dilaudid given. PO PRN Dilaudid given around the clock. VSS on RA. Incisional wound vac to abdomen C/D/I, set to -125mmHG, no output thisshift. PIV intact, capped. Voiding in bedpan r/t pain w/ mobilization. LBM 7/3. Tolerating carb control diet. BG well controlled with insulin. PLAN MOVING FORWARD: Pain control Mobilize Wound vac to -125 D/C planning INDIVIDUALIZED FALL PREVENTION: Patient is currently a high risk to Fall. Patient educated on bed/chair alarm, demonstrates proper use of call glover and verbalizes understanding of fall preventions implemented. Patient-specific fall risk factors per assessment: [current deficits]: Wound vac, Pain, Medications,Hospital Environment, Impaired Mobility, Recent Surgery Assistance [level of assistance required for transfers and ambulation]: SBA Supervision [direct monitoring required during toileting and ADLs]: Hands on with ADL's Surveillance [continuous indirect monitoring]: Abner Miller, Bed Alarm Set Ai Arriaza MD - 09/15/2021 8:19 AM EDT Acute Care Surgery Inpatient Progress Note ID: Jahaira Montgomery is a 61 y.o. female with a history of tobacco use, obesity, T2DM (HbA1c 7.1%), chronic knee pain, diverticulitis s/p Lucy's procedure with reversal 03/2019, incarcerated ventral hernia in 04/2020 s/p primary repair, hospitalization in 04/2021 for recurrent incarcerated ventral herniatreated conservatively, and most recently??s/p??ventral??hernia repair with??Ovitex on-lay??mesh??with 2 supra-mesh drains??07/23/21. Postoperatively she developed an abscess anterior to the mesh, s/p I&D and eventual closure over a drain on prior admission admitted for abdominal pain, found to have skin dehiscence and hypersensitive left sided abdominal wall. 09/13/2021: Abdominal wall debridement and local field block 09/14/2021: Wound vac placed at bedside Subjective/Interval Events: - Wound vac placed at bedside, tolerated well with some additional pain medication (2mg of dilaudid) - No acute events overnight, sleeping well this am O: Vitals: Patient Vitals for the past 24 hrs: BP Temp Temp src Resp SpO2 09/15/21 0740 129/75 36.8 ??C (98.2 ??F) Oral 16 94 % 09/15/21 0034 124/62 36.7 ??C (98.1 ??F) Oral 18 91 % 09/14/21 2118 128/71 37.1 ??C (98.8 ??F) Oral -- 95 % 09/14/21 1630 129/66 37 ??C (98.6 ??F) Oral 18 94 % 09/14/21 1154 128/70 36.8 ??C (98.2 ??F) Oral 18 94 % General: Alert, no acute distress Neuro: Alert and oriented, speech normal, moves all extremities spontaneously HEENT: No scleral icterus, atraumatic, normocephalic Cardio: Regular rhythm Pulm: Breathing comfortably on room air Abd: Protuberant abdomen, midline incision with wound vac in place : Voiding spontaneously Extremities: Movement of all 4 extremities, no edema of ankles or fingers Labs: - No new Micro: - Blood cxs collected on 09/02 final read: no growth A/P: 61-year-old woman with recent recurrent hernia repair with overtax onlay complicated by abdominal wall abscess status post incision and drainage, serial VAC OR changes, and eventual closure over drain 2 weeks ago. She presented with recurrent left abdominal pain, skin incision dehiscence, and hypersensitive left abdominal wall. Now 2 Days Post-Op from abdominal wound debridement (09/13) with wound vac placed at bedside 09/14. She is tolerating the vac well though with some manageable discomfort in the left side of the wound. Planfor wound vac change Thursday and if tolerating plan to d/c her home with VNA help with wound vacs within a week. Plan: Neuro/ Pain: - Scheduled Tylenol, Ibuprofen prn, Gabapentin, Lidociane patches, Dilaudid PRN, Will need 4mg of dilaudid given prior to wound vac change CV: - Hemodynamically stable, CTM - Cont home Atorvastatin, Plavix, HCTZ Resp: - Encourage IS, OOB - No active interventions, CTM GI: - Antiemetics PRN - Miralax daily - Senna-docusate PRN FEN: F: PO ad patrice E: CTM, supplement prn N: Carb Control diet 60/60/75 CHO counting level 2 Renal/: - Adequate UOP Heme: - DVT ppx: Lovenox daily, SCDs - Cont home Plavix ID: - Cont home Doxycycline and flagyl until ID appointment 09/30 for prior wound cultures on last admission Endo: - Insulin sliding scale Wound: - Wound vac placed in open wound, set to 125 suction, plan to change Saturday 09/16 Prophy: Resp: OOB, IS GI: antiemetics PRN DVT: Lovenox, IPCs, OOB Dispo: - PT/OT consulted - Floor status Code Status: Attempt Cardiopulmonary Resuscitation - Inpatient Danica Ricks MD 09/15/21 ACS 5052 Attending Addendum I have seen and examined the patient, I have reviewed the vitals, labs and pertinent imaging. I havediscussed the documentation above and agree, with the following comments: Reporting more pain at the time of my visit - encouraged her to take the PO meds and still mobilize / ambulate. If pain can be tolerable with the vac in place with low dose medications that is ideal - if not, we will have to reconsider next steps though options are limited if vac is not feasible. Ai Arriaza MD [phone] Teri Singh, RN - 09/15/2021 3:12 AM EDT OUTCOME EVALUATION NOTE: OUTCOME SUMMARY: Pt A&O x4. VSS, O2 sats maintained on RA. Abdomen with surgical incision with negative pressure wound therapy. Wound Vac to 125 continuous with no output this shift. Endorses pain to surgical site,pain managed with scheduled and PRN medication, see MAR for medication administered. No acute distress noted and/or reported at this current time. Care clustered to promote sleep hygiene. All safety measures in place, no immediate needs at this present time, see flow sheets for additional documentation. PLAN MOVING FORWARD: Pain control Mobilize Monitor I/Os D/c planning INDIVIDUALIZED FALL PREVENTION: Patient is currently a risk to Fall. Patient educated on bed/chair alarm, demonstrates proper use of call glover and verbalizes understanding of fall preventions implemented. Patient-specific fall risk factors per assessment: [current deficits]: Lines/tubes/drains, Pain, Medications, Hospital Environment. Assistance [level of assistance required for transfers and ambulation]: Standby Supervision [direct monitoring required during toileting and ADLs]: Eyes on with ADL's Surveillance [continuous indirect monitoring]: Bed alarm, Masimo, Purposeful Rounding, Nurse Knowledge Exchange Patient-specific fall prevention interventions for sensory deficits provided, if applicable: n/a CPG GOAL OUTCOME EVALUATION: Lena Walton RN - 09/14/2021 6:38 PM EDT OUTCOME EVALUATION NOTE: OUTCOME SUMMARY: Pt AOx4 throughout shift. VSS. Pt reporting consistent abdominal pain throughout shift; medicated PRN. 1030 team placed wound vac to abdomen; -125 continuous. OOB w/ standby assist to help manage woundvac. PLAN MOVING FORWARD: Mobilize Pain management D/C planning INDIVIDUALIZED FALL PREVENTION INTERVENTIONS: Patient-specific fall risk factors per assessment: [current deficits]: Pain medication, wound vac, hospital environment, Assistance [level of assistance required for transfers and ambulation]: Standby Supervision [direct monitoring required during toileting and ADLs]: Eyes on Surveillance [continuous indirect monitoring]: Masimo, bed alarm, purposeful rounding, room close tonurses station : Adonis Little - 09/14/2021 3:19 PM EDT Theatrical Dresser Encounter Note Patient Name: Jahaira Montgomery : [id number] MR#: [id number] Admit Date: 09/02/2021 4:29 PM Hospital Day 12 days Narrative:Follow-up visit for continued assessment and support. Assessment:Patient coping positively with stresses of illness/hospitalization at this time. 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 Intervention and Outcome:Provided emotional, spiritual support and listening presence. Theatrical Dresser services accepted. Conversation to build trusting relationship. Follow-up: yes Time in Direct Care:03 Mins Adonis Little 09/14/2021 Ai Arriaza MD - 09/14/2021 10:01 AM EDT Acute Care Surgery Inpatient Progress Note ID: Jahaira Montgomery is a 61 y.o. female with a history of tobacco use, obesity, T2DM (HbA1c 7.1%), chronic knee pain, diverticulitis s/p Lucy's procedure with reversal 03/2019, incarcerated ventral hernia in 04/2020 s/p primary repair, hospitalization in 04/2021 for recurrent incarcerated ventral herniatreated conservatively, and most recently??s/p??ventral??hernia repair with??Ovitex on-lay??mesh??with 2 supra-mesh drains??07/23/21. Postoperatively she developed an abscess anterior to the mesh, s/p I&D and eventual closure over a drain on prior admission. Admitted for L abd pain. Presented with severe hypokalemia. Subjective/Interval Events: - Pt went to the OR yesterday (09/13) for wound debridement and also received a field block with 30 ccof 0.25% Sensorcaine into the subcutaneous tissues around wound area. Pt doing well post procedure. - No acute events overnight O: Vitals: Patient Vitals for the past 24 hrs: BP Temp Temp src Pulse Resp SpO2 09/14/21 0751 117/73 36.7 ??C (98.1 ??F) Oral -- -- 94 % 09/14/21 0605 131/75 36.6 ??C (97.9 ??F) Oral 66 16 96 % 09/14/21 0155 116/60 36.5 ??C (97.7 ??F) Oral 61 18 94 % 09/13/21 2205 107/71 36.7 ??C (98.1 ??F) Oral -- 18 98 % 09/13/21 2130 135/68 36.1 ??C (97 ??F) Temporal 62 15 95 % 09/13/21 2115 133/89 -- -- 67 11 95 % 09/13/21 2100 127/72 -- -- 71 10 99 % 09/13/212 136/81 36.4 ??C (97.5 ??F) Temporal 76 8 98 % 09/13/212005 (!) 150/96 36.7 ??C (98.1 ??F) Oral 87 -- 98 % 09/13/21 1534 147/75 36.8 ??C (98.2 ??F) Oral -- -- 97 % 09/13/21 1131 133/71 36.9 ??C (98.4 ??F) Oral -- 18 96 % General: Alert, no acute distress Neuro: Alert and oriented, speech normal, moves all extremities spontaneously HEENT: No scleral icterus, atraumatic, normocephalic Cardio: Regular rhythm Pulm: Breathing comfortably on room air Abd: Protuberant abdomen, midline incision with wet to dry kerlix packing and Mepilex on top c/d/i. : Voiding spontaneously Extremities: Movement of all 4 extremities, no edema of ankles or fingers Labs: - No new Micro: - Blood cxs collected on 09/02 final read: no growth A/P: 61-year-old woman with recent recurrent hernia repair with overtax onlay complicated by abdominal wall abscess status post incision and drainage, serial VAC OR changes, and eventual closure over drain 2 weeks ago. She presented with recurrent left upper quadrant abdominal pain, leukocytosis to 16, and severe hypokalemia. Mrs. Montgomery reported continued pain with palpation at the L wound border. We believed this is due wesley exposed nerve ending or neuroma formation. Overall, her wound appears to be healing well and has improved granulation tissue. The left border of her open incision had appeared necrotic over the pastfew days. She was taken to the OR yesterday (09/13) for debridement and a field block injection. Doingwell post procedure. She has been getting WTD dressing changes, however given the size of the wound,and [id number] management, she would benefit form a wound vac placement. Wound vac placed today(09/14). If Mrs. Montgomery can tolerate the wound vac, we plan to d/c her home with VNA help with wound va cs within a week. - On Carb Control diet - Wound vac placed today (09/14) - Ambulation encouraged Plan: Neuro/ Pain: - Scheduled Tylenol 1g q6h, Ibuprofen 400 mg q6h PRN, Gabapentin 300 mg TID, Lidociane patches - PO Dilaudid 2 mg q4h PRN for pain not controlled on current regimen - Given 2mg Dilaudid, one time dose, for pain management during wound vac placement (09/14) - APS consulted 09/10, recs appreciated CV: - Hemodynamically stable, CTM - Cont home Atorvastatin, Plavix, HCTZ Resp: - Encourage IS, OOB - No active interventions, CTM GI: - Antiemetics PRN - Miralax daily - Senna-docusate PRN FEN: F: PO ad patrice E: CTM, supplement prn N: Carb Control diet 60/60/75 CHO counting level 2 Renal/: - No active interventions, CTM - Adequate UOP Heme: - DVT ppx: Lovenox daily - Cont home Plavix ID: - Cont home PO Flagyl 500 mg q8h, Monodox - No active interventions, CTM Endo: - Insulin sliding scale MSK: - Wound vac placed in open wound, set to 125 suction Prophy: Resp: OOB, IS GI: antiemetics PRN DVT: Lovenox, IPCs, OOB Dispo: - PT/OT consulted - Floor status Code Status: Attempt Cardiopulmonary Resuscitation - Inpatient Gus Clark MD 09/14/21 ACS 5054 Attending Addendum I have seen and examined the patient, I have reviewed the vitals, labs and pertinent imaging. I havediscussed the documentation above and agree, with the following comments: Feeling quite well today - some discomfort but not severe pain at the same site near the wound, she is happy with this. Vac on today. Will plan for inpatient change on Thursday and then home if doing well. Ai Arriaza MD [phone] Evelia Martin RN - 09/14/2021 5:28 AM EDT OUTCOME EVALUATION NOTE: OUTCOME SUMMARY: Patient progressing towards d/c goals appropriately at this time. Patient's pain adequately controlled with scheduled pain medications and PRN, see MAR for medications given. Went to the OR for a debridement of the abdomen.Tolerated well. Pain controlled. Abdomen dressing is clean, dry, and intact. Will continue to monitor and help patient reach d/c goals. PLAN MOVING FORWARD: Pain control Mobilize D/c planning INDIVIDUALIZED FALL PREVENTION: Patient is currently a low risk to Fall. Patient educated on bed/chair alarm, demonstrates proper use of call glover and verbalizes understanding of fall preventions implemented. Patient-specific fall risk factors per assessment: [current deficits]: Recent procedure, Pain, Medications, Hospital Environment. Assistance [level of assistance required for transfers and ambulation]: Independent Supervision [direct monitoring required during toileting and ADLs]: Independent with ADL's Surveillance [continuous indirect monitoring]: Masimo, Purposeful hourly Roundings, Nurse Knowledge Exchange Patient-specific fall prevention interventions for sensory deficits provided, if applicable: N/A CPG GOAL OUTCOME EVALUATION: Ezra Swain MD - 09/14/2021 2:22 AM EDT Post-Operative Check Jahaira Montgomery is a 61 y.o. female s/p Procedure(s): DEBRIDEMENT SKIN AND SUBCU, FIRST 20 SQ CM, ABDOMEN (WRVU 1.01) S: No fever/chills, chest pain, SOB, pain well controlled, offers no complaints. O: Temp: [36.1 ??C (97 ??F)-36.7 ??C (98.1 ??F)] Heart Rate: [61-87] Resp: [8-18] BP: (107-150)/(60-96) SpO2: [94 %-99 %] Heart Rate from SpO2: [60 bpm-76 bpm] I/O last 3 completed shifts: In: 400 [P.O.:400] Out: - I/O this shift: In: 300 [P.O.:100; I.V.:200] Out: 5 [Blood:5] Physical Exam Gen: A0x3, NAD, resting comfortably CVS: RRR, no murmurs/rubs/gallops Resp: CTAB, breathing comfortably on RA Abd: Nontender, slightly distended, midline wound dressing is clean and dry. AP Jahaira Montgomery is a 61 y.o. female s/p debridement of midline wound. currently in stable condition and recovering well - Carb Control diet 60/60/75 CHO counting level 2 - Pain well controlled - Hemodynamically stable, UOP adequate - Continue post operative plan per primary team Ezra Swain MD 09/14/2021 Pattie Prado RN - 09/13/2021 8:55 PM EDT 2049: Patient arrived to PACU13 from OR. Vital signs stable. Alarms audible and set appropriately. Report received from surgical service and anesthesia. Abdominal incision dressing clean, dry, intact. Patient in no apparent distress. 2139: Patient resting in bed. Appears comfortable. Converses appropriately. Endorses incisional painstarting, 2 mg PO dilaudid given. Tolerating ice chips and sips of water. Report given to GENA Altamirano on 3W. Ai Arriaza MD - 09/13/2021 1:47 PM EDT Acute Care Surgery Inpatient Progress Note ID: Jahaira Montgomery is a 61 y.o. female with a history of tobacco use, obesity, T2DM (HbA1c 7.1%), chronic knee pain, diverticulitis s/p Lucy's procedure with reversal 03/2019, incarcerated ventral hernia in 04/2020 s/p primary repair, hospitalization in 04/2021 for recurrent incarcerated ventral herniatreated conservatively, and most recently??s/p??ventral??hernia repair with??Ovitex on-lay??mesh??with 2 supra-mesh drains??07/23/21. Postoperatively she developed an abscess anterior to the mesh, s/p I&D and eventual closure over a drain on prior admission. Admitted for L abd pain. Presented with severe hypokalemia. Subjective/Interval Events: - Denies nausea, emesis, chest pain, fever. No other complaints at this time. - Wet to Dry dressing changed daily. - APS recs: PO opioids before vac changes (when necessary), discharge on tylenol and ibuprofen - No acute events overnight. - NPO at midnight for OR today (09/13) O: Vitals: - Vital signs stable, sating well on RA Patient Vitals for the past 24 hrs: BP Temp Temp src Resp SpO2 09/13/21 1131 133/71 36.9 ??C (98.4 ??F) Oral 18 96 % 09/13/21 0740 153/77 36.6 ??C (97.9 ??F) Oral -- 96 % 09/13/21 0554 128/69 36.7 ??C (98.1 ??F) Oral 18 93 % 09/13/21 0017 129/59 36.7 ??C (98.1 ??F) Oral 16 97 % 09/12/21 2042 145/71 36.8 ??C (98.2 ??F) Oral 16 -- 09/12/21 1604 111/67 37 ??C (98.6 ??F) Oral 16 97 % General: Alert, no acute distress Neuro: Alert and oriented, speech normal, moves all extremities spontaneously HEENT: No scleral icterus, atraumatic, normocephalic Cardio: Regular rhythm Pulm: Breathing comfortably on room air Abd: Protuberant abdomen, midline incision with wet to dry kerlix packing and Mepilex on top c/d/i. Dressing changed at beside, left wound border has some necrotic tissue sloughing at skin line. : Voiding spontaneously Extremities: Movement of all 4 extremities, no edema of ankles or fingers Labs: - No new Micro: - No new - Blood cxs collected on 09/02 final read: no growth Images reviewed (CT on 09/02 for persistent abd pain, see report) A/P: 61-year-old woman with recent recurrent hernia repair with overtax onlay complicated by abdominal wall abscess status post incision and drainage, serial VAC OR changes, and eventual closure over drain 2 weeks ago. She presented with recurrent left upper quadrant abdominal pain, leukocytosis to 16, and severe hypokalemia. Mrs. Montgomery reports continued pain with palpation at the L wound border. We believe this is due to an exposed nerve ending or neuroma formation. The left boarder of her open incision has appeared necrotic over the past few days. We are planning to take her to the OR today (09/13) for debridement, possible traction neurectomy, and wound vac placement. Her wound appears to be healing well and has improved granulation tissue. She has been getting WTD dressing changes, however given the size of the wound,and [id number]-kb-[id number] management, she would benefit form a wound vac placement. Mrs. Campo is hemodynamically stable and there are no signs/sxs of systemic infection. If Mrs. Montgomery can tolerate the wound vac, we plan to d/c her home with VNA help with wound vacs within a week. - Possibly OR today (09/13) for debridement, possible traction neurectomy, and wound vac placement - NPO since midnight Plan: Neuro: #Pain - Scheduled Tylenol 1g q6h - Gabapentin 300 mg TID - Lidociane patches - PO Dilaudid 2 mg q4h PRN for pain not controlled on current regimen - Ibuprofen 400 mg q6h PRN - S/p local lidociane + triamcinolone injection along L side of incision 09/09 - APS consulted 09/10, recs: --Encourage Jahaira to take her PO opioid prior to wound vac changes / debridements CV: - Hemodynamically stable, CTM - Cont home atorvastatin, plavix, HCTZ, Resp: - Encourage IS, OOB - No active interventions, CTM GI: - Antiemetics PRN - Miralax daily - Senna-docusate PRN FEN: F: PO ad patrice E: CTM, supplement prn N: NPO diet (Give Meds) Renal/: - No active interventions, CTM - Adequate UOP Heme: - DVT ppx: lovenox daily - Cont home plavix ID: - Cont home PO Flagyl 500 mg q8h, Monodox - No active interventions, CTM Endo: - Insulin sliding scale MSK: - Midline incision opened at bedside - Wound change (wet to dry) completed 09/13 Prophy: Resp: OOB, IS GI: antiemetics PRN DVT: Lovenox, IPCs, OOB Dispo: - PT/OT consulted - Floor status Code Status: Attempt Cardiopulmonary Resuscitation - Inpatient Gus Clark MD 09/13/21 ACS 5054 \Attending Addendum I have seen and examined the patient, I have reviewed the vitals, labs and pertinent imaging. I havediscussed the documentation above and agree, with the following comments: Awaiting OR time - I hope to be able to do this today or this evening. I discussed this with her andshe understands. Ai Arriaza MD [phone] Adonis Little - 09/12/2021 3:07 PM EDT Theatrical Dresser Encounter Note Patient Name: Jahaira Montgomery : [id number] MR#: [id number] Admit Date: 09/02/2021 4:29 PM Hospital Day 10 days Narrative:Visited to introduce and assess acceptance of Theatrical Dresser services. Assessment: Patient was awake, alert, oriented and in bed. Patient coping positively with stresses of illness/hospitalization at this time. Patient says that she is hoping to get better and go home as she is living with family. Pt talked about her children and grandchildren which are source of courageand strength and purpose of life. Intervention and Outcome:Provided emotional, spiritual support and listening presence. Theatrical Dresser services accepted. Conversation to build trusting relationship. Provided pastoral presence. Provided spiritual guidance. Follow-up: yes Time in Direct Care:10 Mins Adonis Little 09/12/2021 Ai Arriaza MD - 09/12/2021 2:45 PM EDT Acute Care Surgery Inpatient Progress Note ID: Jahaira Montgomery is a 61 y.o. female with a history of tobacco use, obesity, T2DM (HbA1c 7.1%), chronic knee pain, diverticulitis s/p Lucy's procedure with reversal 03/2019, incarcerated ventral hernia in 04/2020 s/p primary repair, hospitalization in 04/2021 for recurrent incarcerated ventral herniatreated conservatively, and most recently??s/p??ventral??hernia repair with??Ovitex on-lay??mesh??with 2 supra-mesh drains??07/23/[address] Watters. Postoperatively she developed an abscess anterior tothe mesh, s/p I&D and eventual closure over a drain on prior admission. Admitted for L abd pain.Presented with severe hypokalemia. Subjective/Interval Events: - Denies nausea, emesis, chest pain, fever. No other complaints at this time. - Wet to Dry dressing changed daily. - No acute events overnight. O: Vitals: - Vital signs stable, sating well on RA Patient Vitals for the past 24 hrs: BP Temp Temp src Resp SpO2 09/12/21 1146 137/89 36.8 ??C (98.2 ??F) Oral 16 97 % 09/12/21 0804 147/78 36.6 ??C (97.9 ??F) Oral 16 97 % 09/12/21 0305 126/62 36.6 ??C (97.9 ??F) Oral 16 97 % 09/11/21 2305 127/76 36.7 ??C (98.1 ??F) Oral 16 95 % 09/11/212057 150/75 36.6 ??C (97.9 ??F) Oral 16 96 % 09/11/21 1622 -- -- -- -- 99 % 09/11/211617 150/76 36.7 ??C (98.1 ??F) Oral 15 96 % General: Alert, no acute distress Neuro: Alert and oriented, speech normal, moves all extremities spontaneously HEENT: No scleral icterus, atraumatic, normocephalic Cardio: Regular rhythm Pulm: Breathing comfortably on room air Abd: Protuberant abdomen, midline incision with wet to dry kerlix packing and Mepilex on top c/d/i. Dressing changed at beside, wound appears to have increased granulation tissue from prior, some fibrinous exudate at base of wound, left wound border has some necrotic tissue sloughing at skin line. : Voiding spontaneously Extremities: Movement of all 4 extremities, swelling much improved post course of lasix Labs: - No new Micro: - No new - Blood cxs collected on 09/02 final read: no growth Images reviewed (CT on 09/02 for persistent abd pain, see report) A/P: 61-year-old woman with recent recurrent hernia repair with overtax onlay complicated by abdominal wall abscess status post incision and drainage, serial VAC OR changes, and eventual closure over drain 2 weeks ago. She presented with recurrent left upper quadrant abdominal pain, leukocytosis to 16, and severe hypokalemia. Mrs. Montgomery reports continued improvement in pain associated with her wound. She still reports pain with palpation at the L wound border. This may be due to an exposed nerve, however the pain is improved from prior. Her wound appears to be healing well and has improved granulation tissue. She has beengetting WTD dressing changes, however given the size of the wound she would benefit form a wound vacplacement, however this will be dependent on her ability to tolerate the wound vac from a pain perspective. We discussed the possibility of taking her to the OR for a debridement, wound vac placement and possible traction neurectomy if exposed nerve is identified in the OR. Pt amenable to plan. Bc pt and family are unable to change dressing, PT/OT consults are in place for possible rehab qualification. Plan: Neuro: #Pain - Scheduled Tylenol 1g q6h - Gabapentin 300 mg TID - Lidociane patches - PO Dilaudid 2 mg q4h PRN for pain not controlled on current regimen - Ibuprofen 400 mg q6h PRN - S/p local lidociane + triamcinolone injection along L side of incision 09/09 - APS consulted 09/10, recs: --Encourage Jahaira to take her PO opioid prior to wound vac changes / debridements -- Consider 2.5mg-5mg dronabinol BID CV: - Hemodynamically stable, CTM - Cont home atorvastatin, plavix, HCTZ, Resp: - Encourage IS, OOB - No active interventions, CTM GI: - Antiemetics PRN - Miralax daily - Senna-docusate PRN FEN: F: PO ad patrice E: CTM, supplement prn N: Carb Control diet 75/75/90 CHO counting level 3 NPO diet (Give Meds) after midnight due to OR scheduled 09/13 for traction neurectomy and wound vac placement Renal/: - No active interventions, CTM - Adequate UOP Heme: - DVT ppx: lovenox daily - Cont home plavix ID: - Cont home PO Flagyl 500 mg q8h, Monodox - No active interventions, CTM Endo: - Insulin sliding scale MSK: - Midline incision opened at bedside - Wound change (wet to dry) completed 09/12 Prophy: Resp: OOB, IS GI: antiemetics PRN DVT: Lovenox, IPCs, OOB Dispo: - PT/OT consulted - Floor status Code Status: Attempt Cardiopulmonary Resuscitation - Inpatient Gus Clark MD 09/12/21 ACS 5054 Attending Addendum I have seen and examined the patient, I have reviewed the vitals, labs and pertinent imaging. I havediscussed the documentation above and agree, with the following comments: Plan OR tomorrow for wound exploration / debridement. She is loathe to try any additional pain medications as she does not want them - she is looking forward to seeing how the OR works. Ai Arriaza MD [phone] Sherie Castañeda - 09/11/2021 2:56 PM EDT Nutrition Services Note - Low Nutrition Acuity Jahaira Montgomery is a 61 y.o. female Reason for intervention: hospital day 9 Nutrition Plan: Continue current diet. Encourage good PO intake. Snack added 1x/day. Monitor weight. Support and encouragement provided. Patient screened for hospital length of stay. Patient seen in room for a nutrition visit. Per patient, her appetite at the hospital comes and goes, but was very good prior to admission. PO intakes recorded in flow sheets consistently documented at 100%. Patient endorses some hunger between meals, pat mahamed requested to received a snack of Baked lay's chips in the afternoon. Patient had no nutrition questions at this time. Nutrition services to continue to monitor and follow up. Active Orders Diet Carb Control diet 75/75/90 CHO counting level 3 Frequency: Effective Now Number of Occurrences: Until Specified Admit Weight: 97.07 kg Estimated body mass index is 43.22 kg/m?? as calculated from the following: Height as of this encounter: 149.9 cm (4' 11). Weight as of this encounter: 97.1 kg (214 lb). Wt Readings from Last 5 Encounters: 09/02/21 97.1 kg (214 lb) 08/12/21 104.3 kg (230 lb) 07/24/21 102.4 kg (225 lb 12 oz) 07/22/21 102.4 kg (225 lb 11.2 oz) 04/24/21 107 kg (236 lb) Weight loss: not clinically significant - per graph. Patient does not know UBW, but does endorse that she feels that she has lost some weight recently. Appetite: Excellent (75%-100%) Food allergies:no known food allergies Chewing/Swallowing difficulty: none Nausea/Vomiting: no nausea and no vomiting Last Bowel Movement: 09/09/21 Patient education / questions: all nutrition related questions answered at this time Nutrition services to follow weekly through hospital course unless consulted in the interim. TONE Yeung [phone] Ai Arriaza MD - 09/11/2021 10:14 AM EDT Acute Care Surgery Inpatient Progress Note ID: Jahaira Montgomery is a 61 y.o. female with a history of tobacco use, obesity, T2DM (HbA1c 7.1%), chronic knee pain, diverticulitis s/p Lucy's procedure with reversal 03/2019, incarcerated ventral hernia in 04/2020 s/p primary repair, hospitalization in 04/2021 for recurrent incarcerated ventral herniatreated conservatively, and most recently??s/p??ventral??hernia repair with??Ovitex on-lay??mesh??with 2 supra-mesh drains??07/23/[address] Watters. Postoperatively she developed an abscess anterior tothe mesh, s/p I&D and eventual closure over a drain on prior admission. Admitted for L abd pain.Presented with severe hypokalemia. Subjective/Interval Events: - Brother, Solomon, updated yesterday by team - APS consulted to assist with pain management, recs pending - Patient still reportspain concentrated on the L side of her open incision and associated with point tenderness near skin border, however this is improved form prior. - Denies nausea, emesis, chest pain, fever. No other complaints at this time. - was able to shower yesterday O: Vitals: - Vital signs stable, sating well on RA Patient Vitals for the past 24 hrs: BP Temp Temp src Pulse Resp SpO2 09/11/21 0717 151/76 36.6 ??C (97.9 ??F) Oral 56 16 96 % 09/11/21 0310 131/77 36.7 ??C (98.1 ??F) Oral -- 18 94 % 09/10/21 2320 155/76 36.7 ??C (98.1 ??F) Oral -- 16 95 % 09/10/21 1944 131/69 36.9 ??C (98.4 ??F) Oral -- 16 92 % 09/10/21 1610 141/79 36.9 ??C (98.4 ??F) Oral 74 16 96 % 09/10/21 1218 137/69 36.3 ??C (97.3 ??F) Oral -- 15 97 % General: Alert, no acute distress Neuro: Alert and oriented, speech normal, moves all extremities spontaneously HEENT: No scleral icterus, atraumatic, normocephalic Cardio: Regular rhythm Pulm: Breathing comfortably on room air Abd: Protuberant abdomen, midline incision with wet to dry kerlix packing and Mepilex on top c/d/i. Dressing changed at beside, wound appears to have increased granulation tissue from prior, some fibrinous exudate at base of wound, Left wound border has some necrotic tissue sloughing at skin line. : Voiding spontaneously Extremities: movement of all 4 extremities, swelling much improved post course of lasix No new labs Micro: no new - blood cxs collected on 09/02 final read: no growth Images reviewed (CT on 09/02 for persistent abd pain, see report) A/P: 61-year-old woman with recent recurrent hernia repair with overtax onlay complicated by abdominal wall abscess status post incision and drainage, serial VAC OR changes, and eventual closure over drain 2 weeks ago. She presented with recurrent left upper quadrant abdominal pain, leukocytosis to 16, and severe hypokalemia. Mrs. Montgomery reports continued improvement in pain associated with her wound. She still reports pain with palpation at the L wound border. This may be due to an exposed nerve, however the pain is improved from prior. Her wound appears to be healing well and has improved granulation tissue. She has be getting WTD dressing changes, however given the size of the wound she would benefit form a wound vac placement, however this will be dependent on her ability to tolerate the wound vac from a pain perspective. We will discuss the possibility of taking her to the OR for a debridement, wound vac placement and possible traction neurectomy if exposed nerve is identified in the OR. Bc pt and family are unable to change dressing, PT/OT consults are in place for possible rehab qualification. Plan: Neuro: #Pain - Scheduled Tylenol 1g q6h - Gabapentin 300 mg TID - Lidociane patches - PO Dilaudid 2 mg q4h PRN for pain not controlled on current regimen - Ibuprofen 400 mg q6h PRN - s/p local lidociane + triamcinolone injection along L side of incision 09/09 - APS consulted 09/10, recs pending CV: - Hemodynamically stable, CTM - cont home atorvastatin, plavix, HCTZ, Resp: - Encourage IS, OOB - No active interventions, CTM GI: - antiemetics PRN - Miralax daily - Senna-docusate PRN FEN: F: PO ad patrice E: CTM, supplement prn N: Carb Control diet 75/75/90 CHO counting level 3 Renal/: - No active interventions, CTM - adequate UOP Heme: - DVT ppx: lovenox daily - cont home plavix ID: - Cont home PO Flagyl 500 mg q8h, Monodox - No active interventions, CTM Endo: - Insulin sliding scale MSK: - Midline incision opened at bedside - Will discuss possible OR for debridement, wound vac placement and traction neurectomy Prophy: Resp: OOB, IS GI: antiemetics PRN DVT: Lovenox, IPCs, OOB Dispo: - PT/OT consulted - Floor status Code Status: Attempt Cardiopulmonary Resuscitation - Inpatient Troy Weaver MD 09/11/21 ACS 5057 Attending Addendum I have seen and examined the patient, I have reviewed the vitals, labs and pertinent imaging. I havediscussed the documentation above and agree, with the following comments: Reported improvement with injection of the site with local anesthetic, but still with pain in that identical spot. Discussed with her the possibility of debridement and possibly neurectomy if identifiable in coming days. She is amenable to this. Will continue to explore options that will work for her to move forward with wound care. Ai Arriaza MD [phone] Joshua Che MD - 09/10/2021 7:53 PM EDT Acute Care Surgery Inpatient Progress Note ID: Jahaira Montgomery is a 61 y.o. female with a history of tobacco use, obesity, T2DM (HbA1c 7.1%), chronic knee pain, diverticulitis s/p Lucy's procedure with reversal 03/2019, incarcerated ventral hernia in 04/2020 s/p primary repair, hospitalization in 04/2021 for recurrent incarcerated ventral herniatreated conservatively, and most recently??s/p??ventral??hernia repair with??Ovitex on-lay??mesh??with 2 supra-mesh drains??07/23/[address] Watters. Postoperatively she developed an abscess anterior tothe mesh, s/p I&D and eventual closure over a drain on prior admission. Admitted for L abd pain.Presented with severe hypokalemia. S: - Pt saying her abdominal pain has subsided, so much so that she was able to shower for the first time in two weeks and comfortably so. This is due to the lidocaine and triamcinolone injection given toher on 09/09. Pt very happy with her care. - Her abdominal pain is typically concentrated on the L side of her open incision and associated with point tenderness near skin border. - Denies nausea, emesis, chest pain, fever. No other complaints at this time. 24 hour events: - PT/OT assessing for discharge plan. Case management also on board. - No acute events overnight. O: Vitals: - Vital signs stable, sating well on RA Patient Vitals for the past 24 hrs: BP Temp Temp src Pulse Resp SpO2 09/10/21 1944 131/69 36.9 ??C (98.4 ??F) Oral -- 16 92 % 09/10/21 1610 141/79 36.9 ??C (98.4 ??F) Oral 74 16 96 % 09/10/21 1218 137/69 36.3 ??C (97.3 ??F) Oral -- 15 97 % 09/10/21 0732 140/78 36.3 ??C (97.3 ??F) Oral -- 14 98 % 09/10/21 0420 109/70 36.6 ??C (97.9 ??F) Oral -- 14 98 % 09/09/21 2320 108/61 37.1 ??C (98.8 ??F) Oral -- 14 95 % General: Alert, no acute distress Neuro: Alert and oriented, speech normal, moves all extremities spontaneously HEENT: No scleral icterus, atraumatic, normocephalic Cardio: Regular rhythm Pulm: Breathing comfortably on room air Abd: Protuberant abdomen, midline incision with wet to dry kerlix packing and ABD on top c/d/i, no pain with palpation of the L abdomen, slight discomfort with wound dressing changes : Voiding spontaneously Extremities: movement of all 4 extremities, swelling much improved post course of lasix No new labs Micro: no new - blood cxs collected on 09/02 final read: no growth Images reviewed (CT on 09/02 for persistent abd pain, see report) A/P: 61-year-old woman with recent recurrent hernia repair with overtax onlay complicated by abdominal wall abscess status post incision and drainage, serial VAC OR changes, and eventual closure over drain 2 weeks ago. She presented with recurrent left upper quadrant abdominal pain, leukocytosis to 16, and severe hypokalemia. Mrs. Montgomery currently denies L sided abdominal pain that was typically concentrated in the L side ofher open incision. This is as a result of the lidocaine and triamcinolone injection she received on 09/09. Bc pt and family are unable to change dressing, PT/OT consults are in place for possible rehab q ualification. Continue to change dressing daily with wet to drys covered with ABD. - Daily wet to dry dressing to midline wound until the patient is able to tolerate a wound vac. - We will attempt wound vac placement on 09/11. If patient unable to tolerate, we will return to wet and dry dressing. - Case Management is following and has placed referrals to three local SNF/ Swing locations. - Brother (Solomon) called by this MD today (09/10) and updated on Ms. Montgomery's situation and discharge planning. - APS consulted for care home pain modality care. NEURO: Gabapentin, lidocaine patches, Tylenol, ibuprofen, Dilaudid p.o., local lidociane + triamcinolone injection along L side of incision 09/09 CV: Hemodynamically normal. Atorvastatin, clopidogrel PULM: Encourage OOB/IS GI/FEN: Carb Control diet 75/75/90 CHO counting level 3 RENAL: UOP adequate ENDO: RADHA HEME: DVT ppx with Lovenox ID: Doxycycline, metronidazole MSK: RADHA PPX: PPI, IS, SCDs LINES: PIV DISPO: Floor status, Attempt Cardiopulmonary Resuscitation - Inpatient Gus Clark MD 09/10/21 ACS 5052 I saw and evaluated the patient with Dr. Clark (resident). I have independently reviewed the relevant laboratory and radiographic studies. I have edited the above note and agree with the details as written. My physical examination confirms the resident's findings. The assessment and plan were formulated in discussion with me at the time of the visit and I agree with them as documented. Joshua Che MD Gretchen Marshall RN - 09/10/2021 7:29 PM EDT Admit to from [facility], report received from Vilma [id number], VSS on RA, pain adequately controlled Pt denies chest pain, sob, nausea, numbness or tingling Skin to perineum is excoriated, z-guard applied Abdominal incision/wound dressing c/d/i Oriented to room & call glover, will continue to monitor Vilma Watkins RN - 09/10/2021 3:50 PM EDT PT A+Ox4 and denies any pain or SOB. VSS. See flowsheet. Abdominal incision packed w/ gauze and covered w/ mepilex. Report given to GENA Godinez and transferred to [facility]. Sandrine Delarosa, PT - 09/10/2021 11:29 AM EDT Physical Therapy Note Treatment Number PT: 2 Patient profile: Jahaira Montgomery??is a 61 y.o.??female??with a history of tobacco use, obesity, T2DM (HbA1c 7.1%), chronic knee pain, diverticulitis s/p Lucy's procedure with reversal 03/2019, incarcerated ventral hernia in 04/2020 s/p primary repair, hospitalization in 04/2021 for recurrent incarcerated ventral hernia treated conservatively, and most recently??s/p??ventral??hernia repair with??Ovitex on-lay??mesh??with 2 supra-mesh drains??07/23/[address] Watters. Postoperatively she developed an abscess anterior to the mesh, s/p I&D and eventual closure over a drain on prior admission. Admittedfor L abd pain. Presented with severe hypokalemia. ?? Interval History: has had lidocaine injection x2 to subcutaneous tissue on the left upper incision edge with good relief Social History: lives with siblings, ramp into one level living space, has FWW to use as needed at home ?? Precautions/Special Considerations: open wound (wet to dry dressing), abdominal pain (likely from nerve irritation near incision) ? Mobility and Positioning Recommendations: ?? Pt. to utilize no device and supervision for ambulation and transfers with nursing. ?? Please encourage up to chair for meal times as able. ?? Pt encouraged to ambulate frequently with staff, getting into the bathroom for toileting and walking out in the king >/= 3 times daily as able. Subective: Fingers crossed that this continues to work, it's definitely better. If I can tolerate the vac dressing, I can go home. Objective: Patient seen for physical therapy and demonstrated the following: Pain: it's sore, but not sharp like it was; I might be sore from the needle Mental Status: alert oriented, appropriate Vital Signs: vital signs have been stable, Spo2 95-97% with activity and at rest ?? Checked in with pt. Had brought her a cane to try but she had not tried it yet. Pt had also had another lidocaine injection and was feeling sore but much less pain overall. She was able to get out of the chair and demonstrate independent bed mobility (hob up slightly to the level that her stacked pillows are at home). ?? She ambulated in hallway with cane but did not like it and did not feel any added benfit to her stability or knee issues and prefers no device at this time ?? Pt left in bedside recliner chair Assessment: Jahaira Montgomery was seen today for physical therapy treatment session for continuation of POC. Pt mobilizing independently today in/out of bed. She tried a cane for her knee issues, but prefers no device and is safe with or without; cane was taken from her room. Pt pleased with her pain control today and is hoping she will tolerate the vac dressing next trial so she can go home. Anticipated Discharge Disposition (PT): home with home health Consult Recommendations: No other consults recommended at this time. Anticipated Equipment Needs at Discharge (PT): None Goals: Goal met today 09/10/21 1. Pt able to perform bed mobility with HOB flat, no rail as it will be at home. ?? Plan: Therapy Frequency (PT): Monitor as outlined in initial evaluation. Patient agrees with plan asstated. Time IN / OUT: 115-1127 Total Minutes, Physical Therapy: 12 Billing Code: te-theodore SANDRINE DELAROSA, PT Pager: [phone] Physical Therapy Inpatient Rehabilitation Department Supriya Olivera RN - 09/10/2021 4:36 AM EDT Pt a/ox4 no c/o CP. Pain managed with scheduled and PRN medications. See flowsheets for I/O. Per provider note waiting for SNF placement. Safety maintained. Danica Ricks MD - 09/09/2021 7:01 PM EDT After discussing the risks and benefits performed a local nerve block with 10cc of lidocaine and 40mg (1cc) of triamcinolone injected into the subcutaneous tissue on the left upper incision edge. This was met with immediate relief of pain. Danica Ricks MD PGY-5 Acute Care Surgery pager [phone] Joshua Che MD - 09/09/2021 4:33 PM EDT Acute Care Surgery Inpatient Progress Note ID: Jahaira Montgomery is a 61 y.o. female with a history of tobacco use, obesity, T2DM (HbA1c 7.1%), chronic knee pain, diverticulitis s/p Lucy's procedure with reversal 03/2019, incarcerated ventral hernia in 04/2020 s/p primary repair, hospitalization in 04/2021 for recurrent incarcerated ventral herniatreated conservatively, and most recently??s/p??ventral??hernia repair with??Ovitex on-lay??mesh??with 2 supra-mesh drains??07/23/[address] Watters. Postoperatively she developed an abscess anterior tothe mesh, s/p I&D and eventual closure over a drain on prior admission. Admitted for L abd pain.Presented with severe hypokalemia. S: - Continues to endorse abdominal pain. Her abdominal pain is concentrated on the L side of her open incision and associated with point tenderness near skin border. - Reports that the abdominal pain completely subsided following the lidocaine injection for ~4 hours, pain then returned to prior intensity. - Denies nausea, emesis, chest pain, fever. No other complaints at this time. 24 hour events: - Lidocaine injection along L side of open incision - PT/OT consult placed to see if Mrs. Montgomery qualifies for rehab - Pt states she and family are unable to do dressing changes at home - No acute events overnight. O: Vitals: - Vital signs stable, sating well on RA Patient Vitals for the past 24 hrs: BP Temp Temp src Resp SpO2 09/09/21 1541 145/78 36.6 ??C (97.9 ??F) Oral 16 98 % 09/09/21 1212 129/77 -- -- -- 97 % 09/09/21 0828 115/67 36.9 ??C (98.4 ??F) Oral 15 97 % 09/09/21 0352 95/71 36.9 ??C (98.4 ??F) Oral 14 96 % 09/09/21 0003 130/72 37.3 ??C (99.1 ??F) Oral 14 98 % 09/08/21 1958 117/67 37.1 ??C (98.8 ??F) Oral 18 97 % General: Alert, no acute distress Neuro: Alert and oriented, speech normal, moves all extremities spontaneously HEENT: No scleral icterus, atraumatic, normocephalic Cardio: Regular rhythm Pulm: Breathing comfortably on room air Abd: Protuberant abdomen, midline incision with wet to dry kerlix packing and ABD on top c/d/i, painwith palpation of the L abdomen, pain with light touch on L side of open incision, discomfort with wound dressing changes : Voiding spontaneously Extremities: movement of all 4 extremities, swelling much improved post course of lasix No new labs Micro: no new - blood cxs collected on 09/02 final read: no growth Images reviewed (CT on 09/02 for persistent abd pain, see report) A/P: 61-year-old woman with recent recurrent hernia repair with overtax onlay complicated by abdominal wall abscess status post incision and drainage, serial VAC OR changes, and eventual closure over drain 2 weeks ago. She presented with recurrent left upper quadrant abdominal pain, leukocytosis to 16, and severe hypokalemia. Mrs. Montgomery continues to endorse L sided abdominal pain that is concentrated in the L side of her open incision. The abdominal pain is worsened by palpation of the L abdomen and light touching of the Lside of the incision. Possibly due to exposed nerve from prior operation and wound opening, injection with local lidocaine led to complete resolution of pain for ~4 hrs. Bc pt and family are unable to change dressing, PT/OT consults are in place for possible rehab qualification. Continue to change dressing daily with wet to drys covered with ABD. Due to the success of the local lidocaine, on 09/09, the patient was injected with a mix of triamcinolone and lidocaine. - Daily wet to dry dressing to midline wound until the patient is able to tolerate a wound vac. - Local lidocaine + triamcinolone injection along L side of open incision tomorrow - Will take pic of wound for chart 09/10 - Case Management is following and has placed referrals to three local SNF/ Swing locations. NEURO: Gabapentin, lidocaine patches, Tylenol, ibuprofen, Dilaudid p.o., local lidociane + triamcinolone injection along L side of incision tomorrow CV: Hemodynamically normal. Atorvastatin, clopidogrel PULM: Encourage OOB/IS GI/FEN: Carb Control diet 75/75/90 CHO counting level 3 RENAL: UOP adequate ENDO: RADHA HEME: DVT ppx with Lovenox ID: Doxycycline, metronidazole MSK: RADHA PPX: PPI, IS, SCDs LINES: PIV DISPO: Floor status, Attempt Cardiopulmonary Resuscitation - Inpatient Gus Clark MD 09/09/21 ACS 5054 I saw and evaluated the patient with Dr. Clark (resident). I have independently reviewed the relevant laboratory and radiographic studies. I have edited the above note and agree with the details as written. My physical examination confirms the resident's findings. The assessment and plan were formulated in discussion with me at the time of the visit and I agree with them as documented. Joshua Che MD Elida Kapoor I, OT - 09/09/2021 2:00 PM EDT Occupational Therapy Evaluation Patient profile: Per MD note: Jahaira Montgomery??is a 61 y.o.??female??with a history of tobacco use, obesity, T2DM (HbA1c 7.1%), chronic knee pain, diverticulitis s/p Lucy's procedure with reversal 03/2019, incarcerated ventral hernia in 04/2020 s/p primary repair, hospitalization in 04/2021 for recurrent incarcerated ventral hernia treated conservatively, and most recently??s/p??ventral??hernia repair with??Ovitex on-lay??mesh??with 2 supra-mesh drains??07/23/[address] Watters. Postoperatively she developed an abscess anterior to the mesh, s/p I&D and eventual closure over a drain on prior admission. Admitted for L abd pain. Presented with severe hypokalemia. Past Medical History: Diagnosis Date ??? Chronic [...] 27.9) performed by Miryam Wiley MD at [facility] MAIN OR ??? PRO COLONOSCOPY, DIAGNOSTIC N/A 08/18/2019 COLONOSCOPY, DIAGNOSTIC performed by Emigdio Lanier MD at [facility] ENDOSCOPY ??? PRO CYSTOSCOPY, INSERT URETERAL STENT Right 09/14/2019 CYSTO, STENT PLACEMENT INTRAOP, TEMPORARY (WRVU 2.82) performed by Werner Fournier MD at [facility] MAIN OR ? ? PRO DEBRIDEMENT MUSCLE AND FASCIA 20 SQ CM/< Midline 08/15/2021 DEBRIDEMENT SKIN, SUBCU, MUSCLE, ABDOMEN (WRVU 2.7) performed by Gabriel Daniel MD at [facility] OR ? ? PRO DEBRIDEMENT SUBCUTANEOUS TISSUE 20 SQCM/< Midline 08/17/2021 DEBRIDEMENT SKIN AND SUBCU, FIRST 20 SQ CM, ABDOMEN (WRVU 1.01) performed by Negro Watters MD [facility] OR ??? PRO EXPLORATION OF ABDOMEN N/A 04/25/2020 @EXPLORATORY LAPAROTOMY, WITH/WITHOUT BIOPSY(S) (WRVU 12.54) performed by Jerod Frost MD at [facility] OR ??? PRO IMPLANT MESH HERNIA REPAIR/DEBRIDEMENT CLOSURE N/A 2021 IMPLANT MESH FOR INCISIONAL OR VENTRAL HERNIA REPAIR (WRVU 4.88) performed by Negro Watters MD at [facility] OR ??? PRO INCISION AND DRAINAGE ABSCESS SIMPLE/SINGLE N/A 08/12/2021 I & D ABSCESS, SIMPLE OR SINGLE, TRUNK (WRVU 1.22) performed by Joshua Che MD at [facility] OR ??? PRO MOBILIZE SPLENIC FLEX N/A 09/14/2019 @MOBILIZATION OF SPLENIC FLEXURE (WRVU 2.23) performed by Miryam Wiley MD at [facility] OR ??? PRO OMENTAL FLAP, INTRA-ABDOMINAL 09/14/2019 @OMENTAL FLAP, INTRA-ABDOMINAL (WRVU 6.54) performed by Miryam Wiley MD at [facility] OR ??? PRO REPAIR RECURR INCIS HERNIA, DEONTE N/A 04/25/2020 HERNIA REPAIR, VENTRAL OR INCISIONAL, RECURRENT, INCARCERATED (WRVU 15.53) performed by Jerod Frost MD at [facility] OR ??? PRO REPAIR RECURR INCIS HERNIA, DEONTE Left 04/25/2021 HERNIA REPAIR, VENTRAL OR INCISIONAL, RECURRENT, INCARCERATED (WRVU 15.53) performed by Loco White MD at [facility] OR ??? PRO REPAIR RECURR INCIS HERNIA, DEONTE N/A 2021 HERNIA REPAIR, VENTRAL OR INCISIONAL, RECURRENT, INCARCERATED (WRVU 15.53) performed by Negro Watters MD at [facility] OR ??? PRO SEC CLSR SURG WOUND/DEHSN EXTENSIVE/COMPLICATED Midline 08/19/2021 SECONDARY CLOSURE SURGICAL WOUND OR DEHISCENCE, EXTENSIVE OR COMPLICATED, TRUNK (WRVU 12.04) performed by Jerod Frost MD at [facility] MAIN OR ??? PRO SIGMOIDOSCOPY, DIAGNOSTIC N/A 09/14/2019 SIGMOIDOSCOPY, FLEXIBLE W/WO SPECIMEN BY BRUSHING OR WASHING (WRVU 0.84) performed by Miryam Wiley MD at [facility] MAIN OR ??? TUBAL LIGATION Social History: Patient lives with her brother and extended family Home Setup: lives on 1st level; has been staying on the couch; too painful to get into bed; walk in shower w shower seat DME: FWW, shower seat Baseline ADL/Mobility: EMELIA assists w ADLs; family assists w IADLs; wiping is challenging for pt; pt has a bidet at home Precautions/Special Considerations: midline incision, AAT, full code Subjective: My family is going on vacation to [place]. My EMELIA helps me w dressing and bathing. Right now when I am sitting here, my pain is a 0. Objective: Seen today for OT evaluation. Cognitive Status/Behavior: ?? Behavior / Mood: alert and cooperative ?? Alert and oriented to: person, place, time and situation ?? Follows commands: multi step and 100% of the time ?? Attention: WFL ?? Safety awareness: WFL Vision & Perception: ?? WNL/WFL ?? corrective lenses multimedia producer Communication: WFL Range of motion, strength, coordination: Bilateral UEs are within functional limitations LE limitations: WFL; pt reports needing knee replacements; decreased strength and weakness; see PT note for further detail Sensation: no report of numbness and tingling Activities of Daily Living: Self-feeding: independent Grooming: independent Dressing: pt used both feet to doff socks; pt uses this technique at home; discussed w pt to do the technique in sitting; use of sock aide and min cues; pt able to don socks seated in recliner chair Bathing: anticipate mod I Toileting: Transfer: SBA no device Hygiene: anticipate max A; pt reports difficulty wiping but has a bidet at home that she uses Functional Mobility: Supine to sit: not assessed; pt presented in recliner chair and agreeable to therapy Sit to stand: SBA Ambulation: SBA no device; ~15 ft to BR from recliner chair; reaching for environmental supports intermittently Stand to sit: SBA Sit to supine: pt left in recliner with all needs met and call glover within reach Balance: Sitting balance: good Standing balance: fair + Vitals: VSS on RA Pain: 0/10 at rest; increased w Skin: midline incision dressing c/d/i Education: patient have been educated on Role of occupational therapy/rehabilitation, Transfers, Assistive device/technique, Adaptive equipment training, ADL, Positioning, Safety, Functional Mobility, Activity pacing/Energy conservation, Balance, Recommendations and Discharge planning and verbalizes understanding. Patient status, treatment, and mobility recommendations discussed with nursing. Assessment: Pt has been seen for occupational therapy evaluation. Jahaira Montgomery presents with the following performance skill deficits and client factors: increased pain and decreased flexibility/ROM. These performance deficits have led to activity limitations and participation restrictions in the following areas of occupation: dressing, bathing and toileting. However, despite the deficits listed above pt demonstrates the ability to manage own needs. Pt reports she has LH AE from previous admissions.Reviewed AE; bag liner and sock aide; as well as gave pt handout for technique. Pt demonstrated good technique w cues. Anticipate that pt will return home with assistance from family once medically ready. Do not anticipate further OT needs while hospitalized. Equipment Recommendations: Equipment Needs Upon Discharge (OT): None Anticipated Discharge Disposition (OT): home with supervision Other Recommendations: ?? Transfer to recliner chair and/or BR as appropriate with SBA no device, ambulate as tolerated ?? Encourage participation in ADL's by providing set up A on tray table and physical assist only as needed Other Recommendations: No other consults recommended at this time Plan: OT: Therapy Frequency (OT): Monitor Total Minutes, Occupational Therapy: 30 (1 low complexity eval ([id number])) OT Evaluation Code Rationale: ?? Diagnosis & Pertinent Co-Morbidities affecting Plan of Care: see PMHx ?? Occupational Profile & Client History: Brief Expanded Extensive x ?? Assessment of Occupational Performance: 1-3 performance deficits x 3-5 performance deficits 5 + performance deficits ?? Clinical Decision Making: Low Moderate High x Clinical decision making of low complexity using standardized patient assessment instrument and measurable assessment of functional outcome. Pager: [phone] Elida Kapoor OT 09/09/2021 Occupational Therapy Rehabilitation Department Sandrine Delarosa, PT - 09/09/2021 12:01 PM EDT Physical Therapy Evaluation Patient profile: Jahaira Montgomery??is a 61 y.o.??female??with a history of tobacco use, obesity, T2DM (HbA1c 7.1%), chronic knee pain, diverticulitis s/p Lucy's procedure with reversal 03/2019, incarcerated ventral hernia in 04/2020 s/p primary repair, hospitalization in 04/2021 for recurrent incarcerated ventral hernia treated conservatively, and most recently??s/p??ventral??hernia repair with??Ovitex on-lay??mesh??with 2 supra-mesh drains??07/23/[address] Watters. Postoperatively she developed an abscess anterior to the mesh, s/p I&D and eventual closure over a drain on prior admission. Admittedfor L abd pain. Presented with severe hypokalemia. ?? Patient with the following active problems: Past Medical History: Diagnosis Date ??? Chronic [...] 27.9) performed by Miryam Wiley MD at [facility] MAIN OR ??? PRO COLONOSCOPY, DIAGNOSTIC N/A 08/18/2019 COLONOSCOPY, DIAGNOSTIC performed by Emigdio Lanier MD at [facility] ENDOSCOPY ??? PRO CYSTOSCOPY, INSERT URETERAL STENT Right 09/14/2019 CYSTO, STENT PLACEMENT INTRAOP, TEMPORARY (WRVU 2.82) performed by Werner Fournier MD at [facility] MAIN OR ? ? PRO DEBRIDEMENT MUSCLE AND FASCIA 20 SQ CM/< Midline 08/15/2021 DEBRIDEMENT SKIN, SUBCU, MUSCLE, ABDOMEN (WRVU 2.7) performed by Gabriel Daniel MD at [facility] OR ? ? PRO DEBRIDEMENT SUBCUTANEOUS TISSUE 20 SQCM/< Midline 08/17/2021 DEBRIDEMENT SKIN AND SUBCU, FIRST 20 SQ CM, ABDOMEN (WRVU 1.01) performed by Negro Watters MD [facility] OR ??? PRO EXPLORATION OF ABDOMEN N/A 04/25/2020 @EXPLORATORY LAPAROTOMY, WITH/WITHOUT BIOPSY(S) (WRVU 12.54) performed by Jerod Frost MD at [facility] OR ??? PRO IMPLANT MESH HERNIA REPAIR/DEBRIDEMENT CLOSURE N/A 2021 IMPLANT MESH FOR INCISIONAL OR VENTRAL HERNIA REPAIR (WRVU 4.88) performed by Negro Watters MD at [facility] OR ??? PRO INCISION AND DRAINAGE ABSCESS SIMPLE/SINGLE N/A 08/12/2021 I & D ABSCESS, SIMPLE OR SINGLE, TRUNK (WRVU 1.22) performed by Joshua Che MD at [facility] OR ??? PRO MOBILIZE SPLENIC FLEX N/A 09/14/2019 @MOBILIZATION OF SPLENIC FLEXURE (WRVU 2.23) performed by Miryam Wiley MD at [facility] OR ??? PRO OMENTAL FLAP, INTRA-ABDOMINAL 09/14/2019 @OMENTAL FLAP, INTRA-ABDOMINAL (WRVU 6.54) performed by Miryam Wiely MD at [facility] OR ??? PRO REPAIR RECURR INCIS HERNIA, DEONTE N/A 04/25/2020 HERNIA REPAIR, VENTRAL OR INCISIONAL, RECURRENT, INCARCERATED (WRVU 15.53) performed by Jerod Frost MD at [facility] OR ??? PRO REPAIR RECURR INCIS HERNIA, DEONTE Left 04/25/2021 HERNIA REPAIR, VENTRAL OR INCISIONAL, RECURRENT, INCARCERATED (WRVU 15.53) performed by Loco White MD at [facility] OR ??? PRO REPAIR RECURR INCIS HERNIA, DEONTE N/A 2021 HERNIA REPAIR, VENTRAL OR INCISIONAL, RECURRENT, INCARCERATED (WRVU 15.53) performed by Negro Watters MD at [facility] OR ??? PRO SEC CLSR SURG WOUND/DEHSN EXTENSIVE/COMPLICATED Midline 08/19/2021 SECONDARY CLOSURE SURGICAL WOUND OR DEHISCENCE, EXTENSIVE OR COMPLICATED, TRUNK (WRVU 12.04) performed by Jerod Frost MD at [facility] MAIN OR ??? PRO SIGMOIDOSCOPY, DIAGNOSTIC N/A 09/14/2019 SIGMOIDOSCOPY, FLEXIBLE W/WO SPECIMEN BY BRUSHING OR WASHING (WRVU 0.84) performed by Miryam Wiley MD at [facility] MAIN OR ??? TUBAL LIGATION Social History: lives with siblings, ramp into one level living space, has FWW to use as needed at home Precautions/Special Considerations: open wound (wet to dry dressing), abdominal pain (likely from nerve irritation near incision) Mobility and Positioning Recommendations: ?? Pt. to utilize no device and supervision for ambulation and transfers with nursing. ?? Please encourage up to chair for meal times as able. ?? Pt encouraged to ambulate frequently with staff, getting into the bathroom for toileting and walking out in the king >/= 3 times daily as able. Subjective: ???I would be fine if it wasn't for this pain, and my family can't change these dressings.?? Objective: Pt seen for evaluation today. Pain: 5/10 pain L side of abdominal incision, did not seem to change with mobility (timing for PT evaluation was around scheduled dilaudid) Vital Signs: SpO2: 97-98% on RA HR: 81-93 BP: 115/67 rest, 129/83 after mobility Mental Status: alert, oriented to person, place, and time, pleasant and cooperative Vision: no acute issues noted Skin: open abdominal wound, covered with wet to dry dressing, no drainage noted on dressing; would benefit from wound vac, but cannot tolerate it Musculoskeletal: ROM: wfl(limited L shoulders > 70 degrees due to stretch it causes to abdomen); Knees are painful/stiff (was scheduled for R TKA prior to when issue began with abdomen, but has been put off)) Strength: wfl throughout, symmetrical Sensation: hypersensitive at bottom of feet and L side of Abd wound (per vascular team , though to be an irritated nerve) Bed Mobility:Pt was already out of bed, per nurse required min A (HOB up slightly) due to discomfort. We discussed getting up from a flat bed as at home and pt stated that she would be able to do so aslong as her pain is controlled. the other day when they gave me that nerve block , I got up with out any problem at all Transfers: Sit to Stand: supervision Stand to Sit: supervision Bed to Chair: supervision Gait: Distance: able to ambulate 300 ft in hallway Device used: none Level of assist: supervision Gait mechanics: antalgic gait, favors R knee, trendelenburg gait with lean to R, occasional mild LOBbalance with stepping to L or R and independent recovery Stairs: NT today, pt does not have stairs at home Balance: good sitting, standing static good, occ stepping strategy with ambulation noted(due to my knee instability), but no recent or h/o falls and good independent recovery. Has FWW at home, if ever needed Education: patient has been educated on Bed mobility and verbalizes understanding. Patient status, treatment, and mobility recommendations discussed with nursing. Addendum:dropped of cane for pt to to try in her room next time she mobilizes and will check in withher tomorrow; she was initially resistance, but willing to give it a try to see if it made her a little more comfortable walking due to her knee. Assessment: Jahaira Montgomery was seen today for physical therapy evaluation. Pt presents with abdominal pain thought to be nerve irritation from recent surgeries. When pain is controlled, pt feels she can mobilize without difficulty. When pain is not controlled it is very difficult for pt especially to mobilize OOB and to tolerate transfers/gait. It is very important that she remain to maintain good strength and endurance for her general healing as well as her eventual upcoming knee replacement, making pain control critical. Team is working on this. Will reassess bed mobility in the next few days if pain is better controlled for this kind of movement. Consult Recommendations: No other consults recommended at this time. D/C rec: home with VN if pain can be well controlled to allow for safe and comfortable mobility Goals: 1. Pt able to perform bed mobility with HOB flat, no rail as it will be at home. Plan: 1-2 more times for therapy including bed mobility training. Patient/family understand and agree with plan as stated above. 2017 PT Evaluation Code Rationale: ?? Diagnosis & Pertinent Co-Morbidities, personal factors, and present illness affecting Plan ofCare: (see above); Additional personal factors or co- morbidities that impact plan: ?? Total # of Factors: 0 1-2 3+ x ?? Examination of body system impairments, functional limitations and behaviors, and/or participation restrictions. Addressing 1-2 elements x Addressing 3 + elements Addressing 4 + elements ?? Clinical presentation: See assessment above. Stable/Uncomplicated Evolving/Fluctuating Symptoms Unstable/Unpredictable x ?? Clinical decision making of low complexity based on pt's functional performance as outlined in this evaluation. Time IN / OUT: 0671-1095 Total Minutes, Physical Therapy: 38 Billing Code: kike SANDRINE DELAROSA, PT Pager: [phone] Physical Therapy Inpatient Rehabilitation Department Supriya Olivera RN - 09/09/2021 4:49 AM EDT Pt a/ox4 this shift. Pain managed w/ PRN and scheduled meds see MAY. PT able to rest in bed throughout shift. Needs PT consult to determine placement. See flowsheets for I/O. Safety maintained. Danica Ricks MD - 09/08/2021 1:19 PM EDT After discussing the risks and benefits performed a local nerve block with 20cc of lidocaine injected into the subcutaneous tissue on the left upper incision edge. This was met with immediate relief ofpain. Danica Ricks MD PGY-5 Acute Care Surgery pager [phone] Patricia Crabtree PT - 09/08/2021 11:05 AM EDT Physical Therapy Contact Note Consult received, thank you, and pt history reviewed in eDH. Unable to complete initial physical therapy assessment at this time. Attempted to see pt this AM, yet pt politely deferred working with PT this date 2/2 increased abdominal pain. Pt reported that she spent most of yesterday sitting in the recliner chair and ambulate 3x with staff. Pt agreeable to working with PT tomorrow if pain better controlled. PT to follow up as able/appropriate. Please page thiswriter if you have any questions, thank you. Patricia Crabtree, PT, DPT Pager #[phone] Physical Therapy Inpatient Rehabilitation Troy Weaver MD - 09/08/2021 9:33 AM EDTSummary: Jahaira Montgomery Progress Note 09/08 Acute Care Surgery Inpatient Progress Note ID: Jahaira Montgomery is a 61 y.o. female with a history of tobacco use, obesity, T2DM (HbA1c 7.1%), chronic knee pain, diverticulitis s/p Lucy's procedure with reversal 03/2019, incarcerated ventral hernia in 04/2020 s/p primary repair, hospitalization in 04/2021 for recurrent incarcerated ventral herniatreated conservatively, and most recently??s/p??ventral??hernia repair with??Ovitex on-lay??mesh??with 2 supra-mesh drains??07/23/[address] Watters. Postoperatively she developed an abscess anterior tothe mesh, s/p I&D and eventual closure over a drain on prior admission. Admitted for L abd pain.Presented with severe hypokalemia. S: - continues to endorse abdominal pain. Her abdominal pain is concentrated on the L side of her open incision and associated with point tenderness near skin border. - Denies nausea, emesis, chest pain, fever. No other complaints at this time. 24 hour events: - walked with nurse - PT/OT consult placed to see if Mrs. Montgomery qualifies for rehab - pt states she and family are unable to do dressing changes at home O: Vitals: Patient Vitals for the past 24 hrs: BP Temp Temp src Pulse Resp SpO2 09/08/21 1159 104/78 37.1 ??C (98.8 ??F) Oral -- 15 97 % 09/08/21 0754 128/72 37.3 ??C (99.1 ??F) Oral 79 13 96 % 09/08/21 0300 105/68 37.5 ??C (99.5 ??F) Oral -- 12 94 % 09/07/212043 181/83 37.4 ??C (99.3 ??F) Oral -- 18 99 % 09/07/21 1729 141/85 -- -- -- 16 95 % General: Alert, no acute distress Neuro: Alert and oriented, speech normal, moves all extremities spontaneously HEENT: No scleral icterus, atraumatic, normocephalic Cardio: Regular rhythm Pulm: Breathing comfortably on room air Abd: Protuberant abdomen, midline incision with wet to dry kerlix packing and ABD on top c/d/i, painwith palpation of the L abdomen, pain with light touch on L side of open incision : Voiding spontaneously Extremities: edema of fingers, ankles, and forearms bilaterally much improved No new labs Micro: - blood cxs collected on 09/02 final read: no growth Images reviewed (CT on 09/02 for persistent abd pain, see report) A/P: 61-year-old woman with recent recurrent hernia repair with overtax onlay complicated by abdominal wall abscess status post incision and drainage, serial VAC OR changes, and eventual closure over drain 2 weeks ago. She presented with recurrent left upper quadrant abdominal pain, leukocytosis to 16, and severe hypokalemia. Mrs. Montgomery continues to endorse L sided abdominal pain that is concentrated in the L side of her open incision. The abdominal pain is worsened by palpation of the L abdomen and light touching of the Lside of the incision. Possibly due to exposed nerve from prior operation and wound opening, plan to inject locally with lidocaine today. Bc pt and family are unable to change dressing, PT/OT consults are in place for possible rehab qualification. Continue to change dressing daily with wet to drys covered with ABD. - Daily wet to dry dressing to midline wound - Local lidocaine along L side of open incision NEURO: Gabapentin, lidocaine patches, Tylenol, ibuprofen, Dilaudid p.o., local lidocaine along L side of incision CV: Hemodynamically normal. Atorvastatin, clopidogrel PULM: Encourage OOB/IS GI/FEN: Carb Control diet 75/75/90 CHO counting level 3, RENAL: UOP adequate ENDO: RADHA HEME: DVT ppx with Lovenox ID: Doxycycline, metronidazole MSK: RADHA PPX: PPI, IS, SCDs LINES: PIV DISPO: Floor status, Attempt Cardiopulmonary Resuscitation - Inpatient Troy Weaver MD 09/08/21 ACS 5054 Associated attestation - Negro Watters MD - 09/08/2021 5:52 PM EDT This patient was personally seen and examined on team rounds. I agree with the assessment and plan as discussed. Diagnoses and therapy were explained and all questions were answered. No clear explanation of pain, ?inflammation secondary to old hematoma. No signs of wound infection. Remains quite severe, recommended and agreed to local anesthesia infiltration in attempt to provide relief and break cycle of pain stimulation. Did not tolerate VAC, continue with moist to moist dressing changes until pain improves to the pointof allowing another attempt at VAC placement DC planning Negro Watters MD 09/08/2021 5:51 PM Sheila Abdullahi RN - 09/07/2021 6:08 PM EDT OUTCOME EVALUATION NOTE: OUTCOME SUMMARY: Patient ambulated in hallway twice today. Gait unsteady, but able to catch balance with contact assist. Encouraging ambulation as tolerated to build endurance. PT and OT consults placed. Dressing completed wet-dry as directed by team. Pt will need dressing changes daily. Potential for wound vac to be put back in place if pt can tolerate. Pain well controlled today with scheduled Tylenol. PLAN MOVING FORWARD: Daily dressing changes on midline wound Discharge planning Miryam Whatley MD - 09/07/2021 4:37 PM EDT Acute Care Surgery Inpatient Progress Note ID: Jahaira Montgomery is a 61 y.o. female with a history of tobacco use, obesity, T2DM (HbA1c 7.1%), chronic knee pain, diverticulitis s/p Lcuy's procedure with reversal 03/2019, incarcerated ventral hernia in 04/2020 s/p primary repair, hospitalization in 04/2021 for recurrent incarcerated ventral herniatreated conservatively, and most recently??s/p??ventral??hernia repair with??Ovitex on-lay??mesh??with 2 supra-mesh drains??07/23/[address] Watters. Postoperatively she developed an abscess anterior tothe mesh, s/p I&D and eventual closure over a drain on prior admission. Admitted for L abd pain.Presented with severe hypokalemia. S: Mrs. Montgomery continues to be tearful during rounds and continues to endorse abdominal pain. Deniesnausea, emesis, chest pain, fever. No other complaints at this time. Additionally, reports swelling of fingers and all 4 extremities. 24 hour events: - abdominal pain much improved - pt states she and family are unable to do dressing changes at home O: Vitals: Afebrile, blood pressure within normal limits, saturating over 90% on room air General: Alert, no acute distress, c/o abdominal pain Neuro: Alert and oriented, speech normal, moves all extremities spontaneously HEENT: No scleral icterus Cardio: Regular rhythm Pulm: Breathing comfortably on room air Abd: Protuberant abdomen, midline incision with wet to dry kerlix packing and ABD on top c/d/i : Voiding spontaneously Extremities: edema of fingers, ankles, and forearms bilaterally much improved No AM labs Images reviewed (CT on 09/02 for persistent abd pain, see report) A/P: 61-year-old woman with recent recurrent hernia repair with overtax onlay complicated by abdominal wall abscess status post incision and drainage, serial VAC OR changes, and eventual closure over drain 2 weeks ago. She presented with recurrent left upper quadrant abdominal pain, leukocytosis to 16, and severe hypokalemia. Mrs. Montgomery abdominal pain improved after opening incision. Changing dressing daily with wet to dryscovered with ABD. - Daily wet to dry dressing to midline wound NEURO: Gabapentin, lidocaine patches, Tylenol, ibuprofen, Dilaudid p.o. CV: Hemodynamically normal. Atorvastatin, clopidogrel PULM: Encourage OOB/IS GI/FEN: Carb Control diet 75/75/90 CHO counting level 3, RENAL: UOP adequate ENDO: RADHA HEME: DVT ppx with Lovenox ID: Doxycycline, metronidazole MSK: RADHA PPX: PPI, IS, SCDs LINES: PIV DISPO: Floor status, Attempt Cardiopulmonary Resuscitation - Inpatient Miryam Whatley MD 09/07/21 ACS 5057 Associated attestation - Negro Watters MD - 09/08/2021 7:28 AM EDT This patient was personally seen and examined on team rounds. I agree with the assessment and plan as discussed. Diagnoses and therapy were explained and all questions were answered. No clear explanation of pain, ?inflammation secondary to old hematoma. No signs of wound infection. Did not tolerate VAC, continue with moist to moist dressing changes Shraddhae DC planning Negro Watters MD 09/08/2021 7:27 AM Lynnette Judd RN - 09/06/2021 6:19 PM EDT A/Ox4. Continuous pulse oxymetry monitoring. No reports of chest pain or SOB. SpO2 WNL. Ambulated in king x1. Up to commode x2. BM x2. Spontaneous voiding. Wet to dry dressing over abdominal wound. Dressing CDI. Daily dressing changes per care team. Family expressed concerns with being able to provide appropriate care for pt when ready for discharge. Rosmery Moreno MD - 09/06/2021 1:43 PM EDT Acute Care Surgery Inpatient Progress Note ID: Jahaira Montgomery is a 61 y.o. female with a history of tobacco use, obesity, T2DM (HbA1c 7.1%), chronic knee pain, diverticulitis s/p Lucy's procedure with reversal 03/2019, incarcerated ventral hernia in 04/2020 s/p primary repair, hospitalization in 04/2021 for recurrent incarcerated ventral herniatreated conservatively, and most recently??s/p??ventral??hernia repair with??Ovitex on-lay??mesh??with 2 supra-mesh drains??07/23/[address] Watters. Postoperatively she developed an abscess anterior tothe mesh, s/p I&D and eventual closure over a drain on prior admission. Admitted for L abd pain.Presented with severe hypokalemia. S: Mrs. Montgomery continues to be tearful during rounds and continues to endorse abdominal pain. Deniesnausea, emesis, chest pain, fever. No other complaints at this time. Additionally, reports swelling of fingers and all 4 extremities. 24 hour events: - abdominal pain much improved - pt midline incision dehiscence at skin, fascia intact - has d/c plan for when medically ready (will go home w/ brother) O: Vitals: Afebrile, blood pressure within normal limits, saturating over 90% on room air General: Alert, no acute distress, c/o abdominal pain Neuro: Alert and oriented, speech normal, moves all extremities spontaneously HEENT: No scleral icterus Cardio: Regular rhythm Pulm: Breathing comfortably on room air Abd: Protuberant abdomen, midline incision with skin dehiscence at superior aspect of wound, tracks inferiorly : Voiding spontaneously Extremities: edema of fingers, ankles, and forearms bilaterally much improved No AM labs Images reviewed (CT on 09/02 for persistent abd pain, see report) A/P: 61-year-old woman with recent recurrent hernia repair with overtax onlay complicated by abdominal wall abscess status post incision and drainage, serial VAC OR changes, and eventual closure over drain 2 weeks ago. She presented with recurrent left upper quadrant abdominal pain, leukocytosis to 16, and severe hypokalemia. Mrs. Montgomery continues to endorse persistent abdominal pain and is tearful in room. Incision opened further at bedside and old clotted hematoma evacuated, likely source of patients pain. Wound packed atbedside with kerlix wet to dry and plan for vac placement later today. - Daily wet to dry dressing to midline wound - Bmp with hypokalemia resolved NEURO: Gabapentin, lidocaine patches, Tylenol, ibuprofen, Dilaudid p.o.. Dilaudid IV for severe breakthrough pain not responsive to oral medications. CV: Hemodynamically normal. Atorvastatin, clopidogrel PULM: Encourage OOB/IS GI/FEN: Carb Control diet 75/75/90 CHO counting level 3, RENAL: UOP adequate ENDO: RADHA HEME: DVT ppx with Lovenox ID: Doxycycline, metronidazole MSK: RADHA PPX: PPI, IS, SCDs LINES: PIV DISPO: Floor status, Attempt Cardiopulmonary Resuscitation - Inpatient Rosmery Moreno MD 09/06/21 ACS 5050 Associated attestation - Negro Watters MD - 09/06/2021 2:28 PM EDT This patient was personally seen and examined on team rounds. I agree with the assessment and plan as discussed. Diagnoses and therapy were explained and all questions were answered. No clear explanation of pain, ?inflammation secondary to old hematoma. No signs of wound infection. VAC to facilitate healing and wound care, next change tomorrow Yaneli TORRES planning with [facility] for VAC changes Negro Watters MD 09/06/2021 2:27 PM Miryam Whatley MD - 09/05/2021 11:33 AM EDT Acute Care Surgery Inpatient Progress Note ID: Jahaira Montgomery is a 61 y.o. female with a history of tobacco use, obesity, T2DM (HbA1c 7.1%), chronic knee pain, diverticulitis s/p Lucy's procedure with reversal 03/2019, incarcerated ventral hernia in 04/2020 s/p primary repair, hospitalization in 04/2021 for recurrent incarcerated ventral herniatreated conservatively, and most recently??s/p??ventral??hernia repair with??Ovitex on-lay??mesh??with 2 supra-mesh drains??07/23/[address] Watters. Postoperatively she developed an abscess anterior tothe mesh, s/p I&D and eventual closure over a drain on prior admission. Admitted for L abd pain.Presented with severe hypokalemia. S: Mrs. Montgomery continues to be tearful during rounds and continues to endorse abdominal pain. Deniesnausea, emesis, chest pain, fever. No other complaints at this time. Additionally, reports swelling of fingers and all 4 extremities. 24 hour events: - continued abdominal pain - pt midline incision dehiscence at skin, fascia intact - due to persistent pain, started PRN dilaudid PO, lidoderm patches PRN, and gabapentin 300 TID - has d/c plan for when medically ready (will go home w/ brother) O: Vitals: Afebrile, blood pressure within normal limits, saturating over 90% on room air General: Alert, no acute distress, c/o abdominal pain Neuro: Alert and oriented, speech normal, moves all extremities spontaneously HEENT: No scleral icterus Cardio: Regular rhythm Pulm: Breathing comfortably on room air Abd: Protuberant abdomen, midline incision with skin dehiscence at superior aspect of wound, tracks inferiorly, small amount of clotted hematoma evacuated : Voiding spontaneously Extremities: edema of fingers, ankles, and forearms bilaterally No AM labs Images reviewed (CT on 09/02 for persistent abd pain, see report) A/P: 61-year-old woman with recent recurrent hernia repair with overtax onlay complicated by abdominal wall abscess status post incision and drainage, serial VAC OR changes, and eventual closure over drain 2 weeks ago. She presented with recurrent left upper quadrant abdominal pain, leukocytosis to 16, and severe hypokalemia. Mrs. Montgomery continues to endorse persistent abdominal pain and is tearful in room. Incision opened further at bedside and old clotted hematoma evacuated, likely source of patients pain. Wound packed atbedside with kerlix wet to dry and plan for vac placement later today. - place vac over midline wound - lasix 20mg BID NEURO: Gabapentin, lidocaine patches, Tylenol, ibuprofen, Dilaudid p.o.. Dilaudid IV for severe breakthrough pain not responsive to oral medications. CV: Hemodynamically normal. Atorvastatin, clopidogrel PULM: Encourage OOB/IS GI/FEN: Carb Control diet 75/75/90 CHO counting level 3, RENAL: UOP adequate, lasix 20mg BID ENDO: RADHA HEME: DVT ppx with Lovenox ID: Doxycycline, metronidazole MSK: RADHA PPX: PPI, IS, SCDs LINES: PIV DISPO: Floor status, Attempt Cardiopulmonary Resuscitation - Inpatient Miryam Whatley MD 09/05/21 ACS 5054 Associated attestation - Negro Watters MD - 09/05/2021 4:20 PM EDT This patient was personally seen and examined on team rounds. I agree with the assessment and plan as discussed. Diagnoses and therapy were explained and all questions were answered. No clear explanation of pain, ?inflammation secondary to old hematoma. No signs of wound infection. Her midline incision dehisced with suture removal, exposing old hematoma. This was bluntly opened further at bedside to allow for improved drainage and wound care. Will place a VAC to facilitate healing and wound care. Yaneli TORRES planning with [facility] for VAC changes Negro Watters MD 09/05/2021 4:18 PM Miryam Whatley MD - 09/04/2021 2:57 PM EDTSummary: Jahaira Montgomery Progress Note 09/04 Acute Care Surgery Inpatient Progress Note ID: Jahaira Montgomery is a 61 y.o. female with a history of tobacco use, obesity, T2DM (HbA1c 7.1%), chronic knee pain, diverticulitis s/p Lucy's procedure with reversal 03/2019, incarcerated ventral hernia in 04/2020 s/p primary repair, hospitalization in 04/2021 for recurrent incarcerated ventral herniatreated conservatively, and most recently??s/p??ventral??hernia repair with??Ovitex on-lay??mesh??with 2 supra-mesh drains??07/23/[address] Watters. Postoperatively she developed an abscess anterior tothe mesh, s/p I&D and eventual closure over a drain on prior admission. Admitted for L abd pain.Presented with severe hypokalemia. S: Mrs. Montgomery continues to be tearful during rounds and continues to endorse abdominal pain. Deniesnausea, emesis, chest pain, fever. No other complaints at this time. Additionally, reports swelling of fingers and all 4 extremities. 24 hour events: - repleted K (responded to 3.5) - attempted to remove sutures yesterday. Aborted due to scabbing over sutures and intense pain. Incision left to soak in [place] overnight and will remove remaining sutures today. - due to persistent pain, started PRN dilaudid PO, lidoderm patches PRN, and gabapentin 300 TID - Mg repleted (responded to 0.88) - has d/c plan for when medically ready (will go home w/ brother) O: Vitals: Afebrile, intermittent bradycardia, blood pressure within normal limits, saturating over 90%on room air General: Alert, tearful upon surgery team entering room Neuro: Alert and oriented, speech normal, moves all extremities spontaneously HEENT: No scleral icterus Cardio: Intermittent bradycardia, regular rhythm Pulm: Breathing comfortably on room air Abd: Protuberant abdomen, midline incision closed with Prolene sutures, well approximated. : Voiding spontaneously Extremities: edema of fingers, ankles, and forearms bilaterally Significant labs: - CBC: WBC 8.8 (from 16.8), hgb 12.1 (down 14.1), plt 296 (down 387), otherwise stable + wnl - Chemistry: Cr 0.55 (from 0.58), Ca 8.4 (down 8.7) Images reviewed (CT on 09/02 for persistent abd pain, see report) A/P: 61-year-old woman with recent recurrent hernia repair with overtax onlay complicated by abdominal wall abscess status post incision and drainage, serial VAC OR changes, and eventual closure over drain 2 weeks ago. She presented with recurrent left upper quadrant abdominal pain, leukocytosis to 16, and severe hypokalemia. Mrs. Montgomery continues to endorse persistent LLQ abdominal pain and often appears tearful when in herroom. She would report pain when removing sutures to the point we had to stop yesterday and start a new pain regimen of gabapentin, lidoderm, and PO dilaudid PRN. Mrs. Montgomery's abdominal pain has been worked up with a CT abd/pelvis with contrast on 09/02. For Mrs. Montgomery's swelling we have started 20mglasix BID and d/c'd IVF. She is on flagyl 500 Q8 and doxy 100mg BID. Pt's Mg and K responded appropriately to repletion. - remove remaining midline sutures, observe for dehiscence - lasix 20mg BID - d/c IVF NEURO: Gabapentin, lidocaine patches, Tylenol, ibuprofen, Dilaudid p.o.. Dilaudid IV for severe breakthrough pain not responsive to oral medications. CV: Hemodynamically normal. Atorvastatin, clopidogrel PULM: Encourage OOB/IS GI/FEN: Carb Control diet 75/75/90 CHO counting level 3, halt IVF; replete electrolytes PRN; RENAL: UOP adequate, lasix 20mg BID ENDO: RADHA HEME: DVT ppx with Lovenox ID: Doxycycline, metronidazole MSK: RADHA PPX: PPI, IS, SCDs LINES: PIV DISPO: Floor status, Attempt Cardiopulmonary Resuscitation - Inpatient Miryam Whatley MD 09/04/21 Associated attestation - Negro Watters MD - 09/05/2021 6:53 AM EDT This patient was personally seen and examined on team rounds. I agree with the assessment and plan as discussed. Diagnoses and therapy were explained and all questions were answered. No clear explanation of pain. No signs of wound infection. Remove sutures Diurese DC planning Negro Watters MD 09/05/2021 6:52 AM Vilma Watkins RN - 09/03/2021 6:15 PM EDT OUTCOME EVALUATION NOTE: OUTCOME SUMMARY: PT A+Ox4 and denies any SOB. PT c/o of ABD pain most of the day that was brought on when she wakes up and moves. Pain medication given w/ some relief. Pt states that she just wants to be left alone.and is upset because she is not getting what I want? VSS. See flow sheet. ABD incision [employer]. Provider removed GEE drain and sutures. PLAN MOVING FORWARD: Continue to monitor INDIVIDUALIZED FALL PREVENTION INTERVENTIONS: Patient-specific fall risk factors per assessment: [current deficits]: Gen weakness, purwick, SpO2 Assistance [level of assistance required for transfers and ambulation]: 1A Supervision [direct monitoring required during toileting and ADLs]: Intermittent supervision Surveillance [continuous indirect monitoring]: SPO2, Rounds Patient-specific fall prevention interventions for sensory deficits provided, if applicable: Bed in lowest position, nonskid socks, call glover within reach CARE PLAN GOAL OUTCOME EVALUATION: Ongoing Rosmery Moreno MD - 09/03/2021 4:31 PM EDT Acute Care Surgery Inpatient Progress Note ID: Jahaira Montgomery is a 61 y.o. female with a history of tobacco use, obesity, T2DM (HbA1c 7.1%), chronic knee pain, diverticulitis s/p Lucy's procedure with reversal 03/2019, incarcerated ventral hernia in 04/2020 s/p primary repair, hospitalization in 04/2021 for recurrent incarcerated ventral herniatreated conservatively, and most recently??s/p??ventral??hernia repair with??Ovitex on-lay??mesh??with 2 supra-mesh drains??07/23/[address] Watters. Postoperatively she developed an abscess anterior tothe mesh, s/p I&D and eventual closure over a drain on prior admission. Admitted for L abd pain.Presented with severe hypokalemia. S: Tearful this morning. States she is having pain in her abdomen. Denies nausea, emesis, chest pain, fever. No other complaints at this time. 24 hour events: Admitted. K recheck overnight 2.5, being repleted. Hospital Course: 09/02: Admitted. Hypokalemia. O: Vitals: Afebrile, intermittent bradycardia, blood pressure within normal limits, saturating over 90%on room air General: Alert, tearful upon surgery team entering room Neuro: Alert and oriented, speech normal, moves all extremities spontaneously HEENT: No scleral icterus Cardio: Intermittent bradycardia, regular rhythm Pulm: Breathing comfortably on room air Abd: Protuberant abdomen, midline incision closed with Prolene sutures, well approximated. GEE right abdomen with minimal serous drainage. : Voiding spontaneously Extremities: No edema Labs reviewed Notable for hypokalemia to 2.5 Images reviewed A/P: 61-year-old woman with recent recurrent hernia repair with overtax onlay complicated by abdominal wall abscess status post incision and drainage, serial VAC OR changes, and eventual closure over drain 2 weeks ago. She presented with recurrent left upper quadrant abdominal pain, leukocytosis to 16, and severe hypokalemia. -Continue potassium repletion, recheck BMP this afternoon -We will add gabapentin and Lidoderm patches for pain control -GEE drain with serous output, will remove today -We will discontinue midline abdominal sutures NEURO: Gabapentin, lidocaine patches, Tylenol, ibuprofen, Dilaudid p.o.. Dilaudid IV for severe breakthrough pain not responsive to oral medications. CV: Hemodynamically normal. Atorvastatin, clopidogrel PULM: Encourage OOB/IS GI/FEN: Carb Control diet 75/75/90 CHO counting level 3, LR at 75 cc/h; replete electrolytes PRN; RENAL: UOP adequate. ENDO: RADHA HEME: DVT ppx with Lovenox ID: Doxycycline, metronidazole MSK: RADHA PPX: PPI, IS, SCDs LINES: PIV DISPO: Floor status, Attempt Cardiopulmonary Resuscitation - Inpatient Rosmery Moreno MD 09/03/21 Associated attestation - Negro Watters MD - 09/04/2021 11:02 AM EDT This patient was personally seen and examined on team rounds. I agree with the assessment and plan as discussed. Diagnoses and therapy were explained and all questions were answered. CT images reviewed No clear explanation of pain. No signs of wound infection. Will remove drain and sutures Negro Watters MD 09/04/2021 11:02 AM Miryam Brown RN - 09/03/2021 6:34 AM EDT Pt admitted from ED overnight, c/o 12/23 abd pain, partially controlled with pain meds (see eMAR), K and mag replaced, IV fluids continued, GEE drain with minimal output documented in this encounter H&P Notes Jerod Frost MD - 09/02/2021 8:08 PM EDT [facility] Department of Surgery History and Physical Chief Complaint: Abdominal pain HPI: Jahaira Montgomery is a 61 y.o. female with a history of tobacco use, obesity, T2DM (HbA1c 7.1%), chronic knee pain, diverticulitis s/p Lucy's procedure with reversal 03/2019, incarcerated ventral hernia in 04/2020 s/p primary repair, hospitalization in 04/2021 for recurrent incarcerated ventral hernia treated conservatively, and most recently??s/p??ventral??hernia repair with??Ovitex on-lay??mesh??with 2 supra-mesh drains??07/23/[address] Watters. Postoperatively she developed an abscess anterior to the mesh, s/p I&D and eventual closure over a drain. She presents with sharp left abdominal pain since yesterday. It is similar to the pain she has had in the past. It does not radiate. It is relatively constant. She denies fevers, chills, cough, SOB, nausea, or vomiting. Her drain has been reportedly putting out about 25mL every other day. Her PO intake has been poor recently due to being a picky eater, and over the last day due to pain. Of note, on exam she had received 2mg dilaudid and was somnolent, limiting her history of present illness. Historyobtained only in part from the patient, mostly from her two family members. Past Medical History Past Medical History: Diagnosis Date ??? Chronic pain Chronic bilat knee (ACL) pain ??? Claudication left leg no acl right leg torn acl ??? Diverticulitis ??? Syncope fainted 10 years ago from heat Past Surgical History Past Surgical History: Procedure Laterality Date ??? COLON SURGERY 03/19/2019 Open Lucy's ??? HERNIA REPAIR open umbilical x2 ??? HYSTERECTOMY ??? PRO CLOSE ENTEROSTOMY, RESEC+COLOREC ANAS N/A 09/14/2019 @CLOSE ENTEROSTOMY, LG,SM INTESTINE, W\RESECT COLORECTAL ANAST. (WRVU 27.9) performed by Miryam Wiley MD at [facility] MAIN OR ??? PRO COLONOSCOPY, DIAGNOSTIC N/A 08/18/2019 COLONOSCOPY, DIAGNOSTIC performed by Emigdio Lanier MD at [facility] ENDOSCOPY ??? PRO CYSTOSCOPY, INSERT URETERAL STENT Right 09/14/2019 CYSTO, STENT PLACEMENT INTRAOP, TEMPORARY (WRVU 2.82) performed by Werner Fournier MD at [facility] MAIN OR ? ? PRO DEBRIDEMENT MUSCLE AND FASCIA 20 SQ CM/< Midline 08/15/2021 DEBRIDEMENT SKIN, SUBCU, MUSCLE, ABDOMEN (WRVU 2.7) performed by Gabriel Daniel MD at [facility] MAIN OR ? ? PRO DEBRIDEMENT SUBCUTANEOUS TISSUE 20 SQCM/< Midline 08/17/2021 DEBRIDEMENT SKIN AND SUBCU, FIRST 20 SQ CM, ABDOMEN (WRVU 1.01) performed by Negro Watters MD [facility] MAIN OR ??? PRO EXPLORATION OF ABDOMEN N/A 04/25/2020 @EXPLORATORY LAPAROTOMY, WITH/WITHOUT BIOPSY(S) (WRVU 12.54) performed by Jerod Frost MD at [facility] OR ??? PRO IMPLANT MESH HERNIA REPAIR/DEBRIDEMENT CLOSURE N/A 2021 IMPLANT MESH FOR INCISIONAL OR VENTRAL HERNIA REPAIR (WRVU 4.88) performed by Negro Watters MD at [facility] OR ??? PRO INCISION AND DRAINAGE ABSCESS SIMPLE/SINGLE N/A 08/12/2021 I & D ABSCESS, SIMPLE OR SINGLE, TRUNK (WRVU 1.22) performed by Joshua Che MD at [facility] OR ??? PRO MOBILIZE SPLENIC FLEX N/A 09/14/2019 @MOBILIZATION OF SPLENIC FLEXURE (WRVU 2.23) performed by Miryam Wiley MD at [facility] OR ??? PRO OMENTAL FLAP, INTRA-ABDOMINAL 09/14/2019 @OMENTAL FLAP, INTRA-ABDOMINAL (WRVU 6.54) performed by Miryam Wiley MD at [facility] OR ??? PRO REPAIR RECURR INCIS HERNIA, DEONTE N/A 04/25/2020 HERNIA REPAIR, VENTRAL OR INCISIONAL, RECURRENT, INCARCERATED (WRVU 15.53) performed by Jerod Frost MD at [facility] OR ??? PRO REPAIR RECURR INCIS HERNIA, DEONTE Left 04/25/2021 HERNIA REPAIR, VENTRAL OR INCISIONAL, RECURRENT, INCARCERATED (WRVU 15.53) performed by Loco White MD at [facility] OR ??? PRO REPAIR RECURR INCIS HERNIA, DEONTE N/A 2021 HERNIA REPAIR, VENTRAL OR INCISIONAL, RECURRENT, INCARCERATED (WRVU 15.53) performed by Negro Watters MD at [facility] OR ??? PRO SEC CLSR SURG WOUND/DEHSN EXTENSIVE/COMPLICATED Midline 08/19/2021 SECONDARY CLOSURE SURGICAL WOUND OR DEHISCENCE, EXTENSIVE OR COMPLICATED, TRUNK (WRVU 12.04) performed by Jerod Frost MD at [facility] OR ??? PRO SIGMOIDOSCOPY, DIAGNOSTIC N/A 09/14/2019 SIGMOIDOSCOPY, FLEXIBLE W/WO SPECIMEN BY BRUSHING OR WASHING (WRVU 0.84) performed by Miryam Wiley MD at [facility] MAIN OR ??? TUBAL LIGATION Medications No current facility-administered medications on file prior to encounter. Current Outpatient Medications on File Prior to Encounter Medication Sig Dispense Refill ??? polyethylene glycoL (Miralax) 17 gram/dose Powder Take 17 g by mouth daily as needed (take as need for constipation. Hold if you are having diarrhea) for up to 30 doses. 510 g 0 ??? senna (Senokot) 8.6 mg Tablet Take 2 tablets by mouth nightly. Hold if you are having diarrhea 60 tablet 11 ??? senna-docusate (Pericolace) 8.6-50 mg Tablet Take 2 tablets by mouth 2 times daily as needed forConstipation. Hold if you are having diarrhea 60 tablet 11 ??? metroNIDAZOLE (Flagyl) 500 mg Tablet Take 1 tablet by mouth 3 times daily for 41 days. 123 tablet 0 ??? doxycycline monohydrate (Monodox) 100 mg Capsule Take 1 capsule by mouth 2 times daily for 41 days. 82 capsule 0 ??? clopidogreL (Plavix) 75 mg Tablet Take 75 mg by mouth daily. ??? atorvastatin (Lipitor) 20 mg Tablet Take 20 mg by mouth every evening. ??? hydroCHLOROthiazide (Hydrodiuril) 25 mg Tablet Take 25 mg by mouth daily. ??? Eszopiclone (LUNESTA) 1 mg Tablet Take 1 mg by mouth nightly as needed. ??? acetaminophen (Tylenol Extra Strength) 500 mg Tablet Take 1 tablet by mouth every 6 hours as needed for Pain. 30 tablet 0 Allergies No Known Allergies Family History Family History Problem Relation Age of Onset ??? Cancer Father pancreas Social History Social History Socioeconomic History ??? Marital status: Single Spouse name: Not on file ??? Number of children: Not on file ??? Years of education: Not on file ??? Highest education level: Not on file Occupational History ??? Not on file Tobacco Use ??? Smoking status: Current Every Day Smoker Packs/day: 0.50 Years: 40.00 Pack years: 20.00 Types: Cigarettes ??? Smokeless tobacco: Never Used Vaping Use ??? Vaping Use: Never used Substance and Sexual Activity ??? Alcohol use: Never Comment: almost 20 years ??? Drug use: Never ??? Sexual activity: Not on file Other Topics Concern ??? Not on file Social History Narrative ??? Not on file Social Determinants of Health Financial Resource Strain: Not on file Food Insecurity: Not on file Transportation Needs: Not on file Physical Activity: Not on file Housing Stability: Not on file Review of Systems As above Physical Exam Temp: [37 ??C (98.6 ??F)] Heart Rate: [76-103] Resp: [10-21] BP: (121-160)/(64-123) SpO2: [91 %-99 %] Heart Rate from SpO2: [75 bpm-82 bpm] No intake/output data recorded. General: Sleepy but arousable, NAD CV: RRR Resp: Unlabored Abd: Soft, obese, nondistended. Sharp tenderness focally in the left midabdomen otherwise benign exam. Midline healing with some scabbing, sutures in place, drain with serous output. Ext: Mildly edematous lower legs with out hair, slightly pink at baseline, warm, dry Neuro: No gross deficit Labs Recent Results (from the past 24 hour(s)) Basic Metabolic Panel (non-fasting) Result Value Ref Range Glucose Lvl 132 65 - 199 mg/dL BUN 16 8 - 18 mg/dL Creatinine 0.58 (L) 0.70 - 1.20 mg/dL Sodium 140 135 - 145 mmol/L Potassium 2.5 (CRIT) 3.5 - 5.0 mmol/L Chloride 98 98 - 107 mmol/L CO2 24 22 - 31 mmol/L Anion Gap 18 (H) 5 - 15 mmol/L Calcium 9.5 8.5 - 10.5 mg/dL Estimated GFR 104 >=60 mL/min/1.73 m?? Lactate, whole blood, send to lab ([facility]) Result Value Ref Range Lactate WB 2.1 0.5 - 2.2 mmol/L Hemogram Result Value Ref Range WBC 16.8 (H) 4.0 - 9.5 x10(3)/mcL RBC 4.64 4.00 - 5.21 x10(6)/mcL Hemoglobin 14.1 11.7 - 15.5 g/dL Hematocrit 41.7 35.7 - 45.8 % MCV 89.9 82.6 - 94.4 fL MCH 30.4 27.1 - 32.0 pg MCHC 33.8 31.7 - 35.0 g/dL Platelets 387 (H) 145 - 357 x10(3)/mcL RDWSD 46.0 37.0 - 46.0 fL RDWCV 14.0 11.5 - 14.1 % MPV 9.4 7.6 - 12.9 fL nRBC % Auto 0.0 % nRBC Abs Auto 0.000 0.000 - 0.000 x10(3)/mcL Differential, Automated Result Value Ref Range Neutrophils % 63.0 % Neutr Abs (ANC) 10.53 (H) 1.70 - 6.10 x10(3)/mcL Lymphocytes % 24.8 % Lymphocytes Abs 4.2 (H) 0.9 - 3.2 x10(3)/mcL Monocytes % 7.0 % Monocyte Abs 1.2 (H) 0.3 - 0.9 x10(3)/mcL Eosinophils % 3.9 % Eosinophils Abs 0.7 (H) 0.0 - 0.4 x10(3)/mcL Basophils % 0.7 % Basophils Abs 0.1 0.0 - 0.1 x10(3)/mcL Immature Gran % 0.60 % Shantell Gran Abs 0.10 (H) 0.00 - 0.04 x10(3)/mcL Scan, Peripheral Blood Result Value Ref Range Plat Estimate Increased RBC Morphology Normal Imaging CT A/P Interval placement of a catheter into the subcutaneous fat of the lower anterior abdominal wall. There is persistent air and fluid in this region although it has improved. Hazy soft tissue stranding consistent with ongoing infection/inflammation. Cannot exclude an enterocutaneous fistula given technique utilized. Correlation with operative history is needed as none has been provided. Assessment: This is a 61 y.o. female with a history of tobacco use, obesity, T2DM (HbA1c 7.1%), chronic knee pain, diverticulitis s/p Lucy's procedure, multiple recurrent hernia repairs recently with ovitex onlay complicated by abscess s/p I&D, vac, and closure over a drain who presents with recurrent left sided abdominal pain similar to her chronic abdominal pain, leukocytosis, and hypokalemia. No apparent recurrence of her abscess, though there is still inflammation in the wound bed. Drainis benign and has minimal output. Electrolyte abnormalities secondary to poor PO intake, dehydration, and diuretic use. We will admit for observation, rule out UTI, replete electrolytes, and work on pain control. Plan: NEURO/PAIN: Tylenol, lido patch, ibuprofen, will consider gabapentin CV: Home statin, plavix PULM: IS, monitor GI: Carb control diet /FE: UA ID: Continue course of doxy/flagyl HEME: RADHA ENDO: SSI PROPHYLAXIS: Lovenox nightly DISPO: Floor, full code Charly Agrawal MD 09/02/2021 General Surgery Pager [phone] Attending Addendum I have seen and examined the patient and reviewed the history documented above and I agree with the details as written. I have reviewed the laboratory data and viewed the pertinent imaging. The assessment and plan were formulated in discussion with me and I agree with them as documented. 61 yo female with recent recurrent hernia repair with Ovitex onlay complicated by abscess s/p I&D, vac, and closure over a drain 2 weeks ago who presents with recurrent left upper quadrant abdominal pain similar but more severe than her chronic abdominal pain, along with severe hypokalemia and wbcto 16. Drain has been putting out 25 mL every other day and she reports the drainage as cloudy. Drainage appears serous on examination in the ED. CT scan shows collapsed pocket in the subq space with some air. Will plan to admit for IV abx, drain observation and repletion of K. No indication for surgical intervention at this time. Tonya Frost MD documented in this encounter Procedure Notes Gus Clark MD - 09/16/2021 3:57 PM EDT [facility] [place] [facility] Wound Vac Change Note ID: Jahaira Montgomery ( ) Wound Location: Midline abdomen Wound Dimensions: 12cm W x 15cm L x 3cm D Procedure: Dilaudid 4mg PO was given prior to the procedure for pain and anxiolysis. The wound vac change was performed at the bedside. Healthy granulation tissue was found in wound. A new vac sponge was placed with good approximation and good seal. 2 pieces of black sponge were used. The patient tolerated the procedure with need for additional pain medication. 0.2 Dilaudid IV had to be administered during the vac change for pain management. Gus Clark MD 09/16/2021 Gus Clark MD - 09/14/2021 10:49 AM EDT [facility]acement Note ID: Jahaira Montgomery ( ) Wound Location: Midline abdomen Wound Dimensions: 12cm W x 15cm L x 3cm D Procedure: The wound vac placement was performed at the bedside. Healthy granulation tissue was found in wound. A new vac sponge was placed with good approximation and good seal. 1 piece of black sponge was used. Vac was set to 125 suction. The patient tolerated the procedure well with need for additional pain medication (2mg Dilaudid PO x1). Gus Clark MD 09/14/2021 documented in this encounter ED Notes Angela Serra RN - 09/02/2021 9:31 PM EDT Pt being brought to the floor by transpo. She is leaving with all personal belongings. Pt is requesting more pain medication at this time. Pt refused to take her oral antibiotics at this time stating I am in too much pain to sit up. Angela Serra RN - 09/02/2021 9:00 PM EDT Report called to receiving GENA. Lauri ordered. Angela Serra RN - 09/02/2021 7:22 PM EDT Surgery at bedside Angela Serra RN - 09/02/2021 5:49 PM EDT Pt in CT Ten Delong MD - 09/02/2021 4:42 PM EDT ED Attending Note HPI: Jahaira Montgomery is a 61 y.o. female who presents to the Emergency Department with increasing abdominal pain similar to multiple prior episodes as documented below, although somewhat more severe. He has had decreased output, although did have a bowel movement yesterday, which partially relieved this pain.Output from her GEE drain over the past 24 hours has become somewhat purulent. Patient has not had any fevers, nausea, or vomiting. She has not had any oral solid intake since yesterday. Patient states still on and compliant with doxy/flagyl as at discharge. Per chart review: 03/2019 Diverticulitis s/p Lucy's with reversal 04/2020 incarcerative ventral hernia repair 04/2021 recurrent ventral hernia (nonop) 2021 ventral hernia repair with mesh C[place], 2 supramesh drains left in 08/07/2021 drains pulled, shelley, out, c/o pain found to be due to 9 cm asbcess, readmitted, drained, multiple wound vac changes in OR 08/20/2021 wound closure over a drain Abscess CoNS, had been on vanc with flagyl addition recommended by ID based on + finegoldia magna anaerobic CX and transitioned to doxy/flagyl at discharge on 08/22 Review of Systems Pertinent positives and negatives are included in the HPI, otherwise at least ten systems were reviewed and negative. Past Medical and Surgical Histories, Social History, Medications, Allergies were reviewed in the chart. Vitals: ED Triage Vitals [09/02/21 1551] BP: (!) 160/123 Heart Rate: (!) 103 Resp: 20 Temp: 37 ??C (98.6 ??F) Temp src: n/a SpO2: 98 % O2 Device: n/a O2 Flow Rate (L/min): n/a Physical Exam Gen: Moderate distress Eyes: Anicteric/noninjected Pulm: CTAB CV: Tachy, regular, no mgr Abd: incision clean, intact with trace serous drainage. Some bloody purulent drainage in GEE drain. Moderate diffuse tenderness somewhat worse inferiorly. Nondistended per patient. Neuro awake/alert/interacting appropriately Skin warm/dry/no rashes ED Course: DDx includes recurrent abscess, hernia, SBO, perforation Plan: sx control, IVF ressuc given poor oral intake, CT A/P for likely recurrent infection, ACS consult Ten Delong MD 09/02/21 [id number] Demetrius Camejo PA - 09/02/2021 3:52 PM EDT 61 y/o F with hx of recurrent abdominal abscesses presents to the ED with worsening abdominal pain and concern for recurrent abscess. Pain has been getting worse over the last 24 hours. No fevers or chills. Appears very uncomfortable. Belly labs, CT scan, and cultures ordered. Demetrius Camejo PA 09/02/21 [id number] documented in this encounter Miscellaneous Notes Care Management Discharge - Aria Shultz RN - 09/19/2021 10:35 AM EDT CARE MANAGEMENT FINAL DISCHARGE NOTE Chart reviewed, care reviewed with primary team and at interdisciplinary rounds. Patient is medically ready for discharge to Home with [facility]. Confirmed through John that RN will see 3x week starting tomorrow. Team updated. Needs for Transition of Care: Plan for discharge is: [facility] Facility / Swing Outpatient Agency/Support Group Needs: Homecare agency Home Health Services: Registered Nurse, Occupational Therapy Agency Referrals & Follow-up Care: Contact information for follow-up Home Health & Hospice, [facility] [address] [place] [address] Transportation: family or friend will provide Functional status prior to admission: Independent Home Environment: Others in the home: sibling(s). Current Living Arrangements: home/apartment/condo. Accessibility Concerns:2 level home, stays on first level, ramp with railing to enter.. 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 All are in agreement with plan. Aria Shultz RN, BSN Case Management Plan of Care - Gretchen Marshall RN - 09/18/2021 4:16 PM EDT OUTCOME EVALUATION NOTE: OUTCOME SUMMARY: AOx4, VSS on RA, pain controlled w/ scheduled & PRN meds Pt denies chest pain, sob, nausea, numbness or tingling Abdominal incision/wound vac in place this am. Removed per team and NOT replaced this afternoon due to pain. When oob activity was offered, pt c/o feeling like she has no energy to do anything. Up to commode to void/pass BMs. LBM 09/18 PLAN MOVING FORWARD: Discharge pending pain control INDIVIDUALIZED FALL PREVENTION INTERVENTIONS: Patient-specific fall risk factors per assessment: [current deficits]: Hospital setting, pain Assistance [level of assistance required for transfers and ambulation]: sba Supervision [direct monitoring required during toileting and ADLs]: Eyes on Surveillance [continuous indirect monitoring]: Thom Patient-specific fall prevention interventions for sensory deficits provided, if applicable: [X] N/A CARE PLAN GOAL OUTCOME EVALUATION: Care Management - Aria Shultz RN - 09/17/2021 3:09 PM EDT OFFICE OF CARE MANAGEMENT PROGRESS NOTE LOS: Hospital Day 15 days Chart reviewed, care reviewed with primary team and at interdisciplinary rounds. Patient continues to meet inpatient level of care related to: Wound vac changes Tu//Sat. Team completed Medicaid form for Wound vac. Faxed to [facility] form and supporting documentation. Functional status prior to admission: Independent Home Environment: Others in the home: sibling(s). Current Living Arrangements: home/apartment/condo. Accessibility Concerns: 2 level home, stays on first level, ramp with railing to enter.. 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 DME used at home: none Other DME Needs: Wound Vac Provider: [facility] Delivery: In Process Patient is insured through: Primary Insurance: [place] Pay[place] / Plan: [place] / Product Type: *No Product type* / Secondary Insurance: N/A Last Physical Therapy Recommendation: home with home health with None Last Occupational Therapy Recommendation: home with supervision with None Plan for discharge is: [facility] Facility / Swing Outpatient Agency/Support Group Needs: Homecare agency Home Health Services: Registered Nurse, Occupational Therapy Agency Referrals: [facility], [facility] Transportation: family or friend will provide Plan going forward: Care Management will continue to follow and assist with discharge planning and coordination of care as indicated. Anticipated Date of Discharge: 09/18/2021 Aria Shultz RN, BSN Case Management Op Note - Ai Arriaza MD - 09/13/2021 8:52 PM EDT [facility] Operative Note Patient Name: Jahaira Montgomery : [id number] MR#: [id number] Case Date: 09/13/2021 Surgeon: Surgeon(s) and Role: * Ai Arriaza MD - Primary * Bentley Dale MD - Resident Preoperative diagnosis: midline wound needing debridement Postoperative diagnosis: midline wound needing debridement Procedure(s) (LRB): DEBRIDEMENT SKIN AND SUBCU, FIRST 20 SQ CM, ABDOMEN (WRVU 1.01) (Midline) Findings: Necrotic skin edge along left lateral aspect of wound and necrotic fat debrided. Anesthesia: General Estimated Blood Loss: * No values recorded between 09/13/2021 8:33 PM and 09/13/2021 8:46 PM * Specimens removed during surgery: None Drains: None Surgical Closure: Other Than Primary Closure - deep and superficial layers are left completely open during original surgery Disposition: awakened from anesthesia, extubated and taken to the recovery room in a stable condition, having suffered no apparent untoward event. Condition: doing well (Please see the Surgical Encounter Summary for any Implant and Specimen details pertinent to this patient.) HPI/Surgical Indications: Jahaira Montgomery is a 61 y.o. female with a history of recurrent ventral hernia s/p multiple repairs, most recently w/ Ovitex onlay mesh in July c/b wound infection and dehiscence of skin. Procedure Description: Ms. Montgomery was brought to the operating room and positioned supine on the operating room table. Following induction of general endotracheal anesthesia, the abdomen was prepped and draped in usual sterile fashion. A standard surgical safety timeout was performed. Necrotic skin and subcutaneous fat on the left lateral aspect of the wound was debrided with cauteryback to healthy bleeding tissue. Hemostasis was ensured. There was no obvious nerve in the area thatcould be identified. A field block with 30 cc of 0.25% Sensorcaine was injected into the subcutaneous tissues in the area. The wound was packed with a single saline-soaked Kerlix. An ABD pad and Medipore tape were placed over top. All counts were correct at the conclusion of the procedure. The patient was awakened from anesthesia, extubated, and transferred to recovery room in stable condition having suffered no untoward event. Dr. Arriaza was present for all critical portions of the procedure. Surgical Infection Prevention Bundle Used? N/A Bentley Dale MD Attestation: Case Date: 09/13/2021 I was present and I participated during the entire procedure (does not need to include opening and closing). Total area of debridement approximately 6cm x 4cm. Ai Arriaza MD 09/13/2021 Plan of Care - Christiano Shea RN - 09/13/2021 4:41 PM EDT OUTCOME EVALUATION NOTE: ?? OUTCOME SUMMARY: ?? A&Ox4, VSS on RA. Voiding to toilet stand by assist. NPO since midnight for potential OR today. Patient progressing towards d/c goals appropriately at this time. Patient's pain adequately controlled with scheduled and PRN medications, see MAR for medications given. Dressing to incision/wound CDI.Will continue to monitor and help patient reach d/c goals. ?? PLAN MOVING FORWARD: ?? Pain control Mobilize Wound management - OR today? D/C planning ?? INDIVIDUALIZED FALL PREVENTION: Patient is currently a medium risk to Fall. Patient educated on bed/chair alarm, demonstrates proper use of call glover and verbalizes understanding of fall preventions implemented. Patient-specific fall risk factors per assessment: [current deficits]: Pain, Medications, Hospital Environment ?? Assistance [level of assistance required for transfers and ambulation]: SBA ?? Supervision [direct monitoring required during toileting and ADLs]: Eyes on with ADL's ?? Surveillance [continuous indirect monitoring]: Masimo, Purposeful Rounding, Nurse Knowledge Exchangeat Bedside, Bed Alarm Set Plan of Care - Tiana Connelly RN - 09/13/2021 3:34 AM EDT OUTCOME EVALUATION NOTE: OUTCOME SUMMARY: A/Ox4. Voices needs and wants. Up with SBA in room. VSS on RA. Tolerating diet, NPO at OH for procedure. Conts with glucose monitoring for hypo/hyperglycemia. Denies pain. PLAN MOVING FORWARD: Pain control, wound care, OR, maintain comfort and safety INDIVIDUALIZED FALL PREVENTION INTERVENTIONS: Patient-specific fall risk factors per assessment: Hospital environment, weakness Assistance: SBA Supervision: Eyes on Surveillance: Bed locked in low position, call glover within reach, purposeful hourly rounding, clutter free environment, bed/chair alarm on Patient-specific fall prevention interventions for sensory deficits provided: N/A CPG GOAL OUTCOME EVALUATION: Continue care plan as documented. Consult Note - Jerod Reyes MD - 09/12/2021 1:28 PM EDT Acute Pain Service Consultation Date of APS Consultation: 09/12/2021 Jahaira Montgomery is being evaluated for the management of their acute pain on chronic pain. Pain is categorized as somatic nociceptive pain. History of Present Illness: 61 y.o.??female??with a history of tobacco use, obesity, T2DM (HbA1c 7.1%), chronic knee pain, diverticulitis s/p Lucy's procedure with reversal 03/2019, incarcerated ventral hernia in 04/2020 s/p primary repair, hospitalization in 04/2021 for recurrent incarcerated ventral hernia treated conservatively, and most recently??s/p??ventral??hernia repair with??Ovitex on-lay??mesh??with 2 supra-mesh drains??07/23/[address] Watters. Postoperatively she developed an abscess anterior to the mesh, s/p I&D and eventual closure over a drain on prior admission. Admitted for L abd pain. Undergoing wound debridements this hospitalization. Past Medical History: Past Medical History: Diagnosis Date ??? Chronic pain Chronic bilat knee (ACL) pain ??? Claudication left leg no acl right leg torn acl ??? Diverticulitis ??? Syncope fainted 10 years ago from heat Family History: Family History Problem Relation Age of Onset ??? Cancer Father pancreas Social History: Social History Socioeconomic History ??? Marital status: Single Spouse name: Not on file ??? Number of children: Not on file ??? Years of education: Not on file ??? Highest education level: Not on file Occupational History ??? Not on file Tobacco Use ??? Smoking status: Current Every Day Smoker Packs/day: 0.50 Years: 40.00 Pack years: 20.00 Types: Cigarettes ??? Smokeless tobacco: Never Used Vaping Use ??? Vaping Use: Never used Substance and Sexual Activity ??? Alcohol use: Never Comment: almost 20 years ??? Drug use: Never ??? Sexual activity: Not on file Other Topics Concern ??? Not on file Social History Narrative ??? Not on file Social Determinants of Health Financial Resource Strain: Not on file Food Insecurity: Not on file Transportation Needs: Not on file Physical Activity: Not on file Housing Stability: Not on file Review of Systems: Sedation Level: awake Pruritis/Skin: none GI/Bowels/Nausea: none Vital Signs: Last Set of Vitals BP 137/89 (BP Location (NBP): Right arm, Patient Position: Lying) Pulse 56 Temp 36.8 ??C (98.2 ??F) (Oral) Resp 16 Ht 149.9 cm (4' 11) Wt 97.1 kg (214 lb) SpO2 97% BMI 43.22 kg/m?? Pain Scores: 3 Physical Exam: Affect: normal Pain Behaviors: none Labs: Pertinent Medications: HYDROmorphone Assessment: 61 y.o.??female??with multiple abdominal surgeries in relatively recent past with persistent pain from abdominal incision complicated by abscess s/p I+D. Admitted for L abd pain. Undergoing wound debridements this hospitalization. Recommendations: - Encourage Jahaira to take her PO opioid prior to wound vac changes / debridements - Consider 2.5mg-5mg dronabinol BID - discharge recs: acetaminophen and ibuprofen Plan discussed with patient and APS attending. Consult service will sign off. Jerod Reyes MD 09/12/2021 Acute Pain Service Pager: [phone] Associated attestation - Neal Espinal MD - 09/18/2021 4:31 PM EDT I have seen and examined the patient, providing onofre components as outlined below. I have reviewed the resident???s above note; Plan of Care - Christiano Shea RN - 09/12/2021 11:37 AM EDT OUTCOME EVALUATION NOTE: ?? OUTCOME SUMMARY: ?? A&Ox4, VSS on RA. Voiding to toilet stand by assist. NPO since midnight for potential OR today. Patient progressing towards d/c goals appropriately at this time. Patient's pain adequately controlled with scheduled and PRN medications, see MAR for medications given. Dressing to incision/wound CDI.Will continue to monitor and help patient reach d/c goals. ?? PLAN MOVING FORWARD: ?? Pain control Mobilize Wound management - OR today? D/C planning ?? INDIVIDUALIZED FALL PREVENTION: Patient is currently a medium risk to Fall. Patient educated on bed/chair alarm, demonstrates proper use of call glover and verbalizes understanding of fall preventions implemented. Patient-specific fall risk factors per assessment: [current deficits]: Pain, Medications, Hospital Environment ?? Assistance [level of assistance required for transfers and ambulation]: SBA ?? Supervision [direct monitoring required during toileting and ADLs]: Eyes on with ADL's ?? Surveillance [continuous indirect monitoring]: Masimo, Purposeful Rounding, Nurse Knowledge Exchangeat Bedside, Bed Alarm Set Care Management - Aria Shultz RN - 09/12/2021 9:04 AM EDT OFFICE OF CARE MANAGEMENT PROGRESS NOTE LOS: Hospital Day 10 days Chart reviewed, care reviewed with primary team and at interdisciplinary rounds. Patient continues to meet inpatient level of care related to: Patient will be going to OR today and the team will attempt to place wound vac. Reminded team that we will need wound measurements to order wound vac if it is needed at DC. Functional status prior to admission: Independent Home Environment: Others in the home: sibling(s). Current Living Arrangements: home/apartment/condo. Accessibility Concerns: 2 level home, stays on first level, ramp with railing to enter.. 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 DME used at home: none DME Needed at Discharge: ??Woundvac Patient is insured through: Primary Insurance: [place] Payor[place] / Plan: [place] / Product Type: *No Product type* / Secondary Insurance: N/A Last Physical Therapy Recommendation: home with home health with None Last Occupational Therapy Recommendation: home with supervision with None Plan for discharge is: [facility] Facility / Swing Outpatient Agency/Support Group Needs: Homecare agency Home Health Services: Registered Nurse, Occupational Therapy Agency Referrals: [facility] for RN, OT Transportation: family or friend will provide Barriers to discharge: Woundcare Plan going forward: Care Management will continue to follow and assist with discharge planning and coordination of care as indicated. Anticipated Date of Discharge: 09/17/2021 Aria Shultz RN, BSN Case Management Plan of Care - Evelia Perez RN - 09/12/2021 12:34 AM EDT OUTCOME EVALUATION NOTE: ?? OUTCOME SUMMARY: ?? Patient progressing towards d/c goals appropriately at this time. A&Ox4, VSS on RA. Patient's pain adequately controlled with scheduled and PRN medications, see MAR for medications given. Dressing to incision/wound CDI. Voiding to toilet SBA. NPO since midnight for potential OR today. Will continue to monitor and help patient reach d/c goals. ?? PLAN MOVING FORWARD: ?? Pain control Mobilize Wound management - OR today? D/C planning ?? INDIVIDUALIZED FALL PREVENTION: Patient is currently a medium risk to Fall. Patient educated on bed/chair alarm, demonstrates proper use of call glover and verbalizes understanding of fall preventions implemented. Patient-specific fall risk factors per assessment: [current deficits]: Pain, Medications, Hospital Environment ?? Assistance [level of assistance required for transfers and ambulation]: SBA ?? Supervision [direct monitoring required during toileting and ADLs]: Eyes on with ADL's ?? Surveillance [continuous indirect monitoring]: Saritha Millerful Rounding, Nurse Knowledge Exchangeat Bedside, Bed Alarm Set Plan of Care - Gretchen Marshall RN - 09/11/2021 7:18 PM EDT OUTCOME EVALUATION NOTE: OUTCOME SUMMARY: AOx4, VSS on RA, pain adequately controlled Pt denies chest pain, sob, nausea, numbness or tingling Skin to perineum is excoriated, z-guard applied periodically Abdominal incision/wound dressing c/d/i Ambulated 2 laps around unit with staff Pt became tearful in the afternoon when informed she would likely go back to the OR tomorrow. This production underwriter offered emotional support & to take the patient off the unit in a wheelchair for a change of scenery- the patient seemed appreciative but did decline at the time PLAN MOVING FORWARD: OR tomorrow Discharge pending pain control INDIVIDUALIZED FALL PREVENTION INTERVENTIONS: Patient-specific fall risk factors per assessment: [current deficits]: Hospital setting, pain Assistance [level of assistance required for transfers and ambulation]: sba Supervision [direct monitoring required during toileting and ADLs]: Eyes on Surveillance [continuous indirect monitoring]: Thom Patient-specific fall prevention interventions for sensory deficits provided, if applicable: [X] N/A CARE PLAN GOAL OUTCOME EVALUATION: Plan of Care - Evelia Perez RN - 09/11/2021 3:03 AM EDT OUTCOME EVALUATION NOTE: OUTCOME SUMMARY: Patient progressing towards d/c goals appropriately at this time. A&Ox4, VSS on RA. Patient's pain adequately controlled with scheduled and PRN medications, see MAR for medications given. Dressing to incision/wound CDI. Voiding to toilet SBA. Will continue to monitor and help patient reach d/c goals. PLAN MOVING FORWARD: Pain control Mobilize Wound management D/C planning INDIVIDUALIZED FALL PREVENTION: Patient is currently a medium risk to Fall. Patient educated on bed/chair alarm, demonstrates proper use of call glover and verbalizes understanding of fall preventions implemented. Patient-specific fall risk factors per assessment: [current deficits]: Pain, Medications, Hospital Environment Assistance [level of assistance required for transfers and ambulation]: SBA Supervision [direct monitoring required during toileting and ADLs]: Eyes on with ADL's Surveillance [continuous indirect monitoring]: Paul, Purposeful Rounding, Nurse Knowledge Exchangeat Bedside, Bed Alarm Set Care Management - Aria Shultz RN - 09/09/2021 2:54 PM EDT Based on discussions with the multi-disciplinary healthcare team, the patient would benefit from SNF/ Swing level of care at discharge. I have met with the patient to: ?? discuss discharge planning needs. ?? provide the [facility], Office of Care Management letter from the Canopy Inspector pertaining to rehab referrals. ?? provide a letter describing our affiliations within the [facility] and educate about their right to choose where referrals are sent. ?? provide the CMS Star Quality Rating handout. ?? review the different levels of rehab including SNF, swing, and acute. ?? provide a list of facilities within their preferred geographic area. ?? request that they provide at least three choices for referral. They have requested referrals to: [facility] previous [facility] [address] [place] [address] P: [phone] F: [phone] [facility] ([facility]) [address] [place] [address] (Accepts pts only after exhausting all other local SNF options) [facility] [address] [place] [address] Note routed to a Roll Filler who will communicate referrals to facilities and provide any required information. Care Management - Aria Shultz RN - 09/06/2021 1:38 PM EDT OFFICE OF CARE MANAGEMENT PROGRESS NOTE LOS: Hospital Day 4 days Chart reviewed, care reviewed with primary team and at interdisciplinary rounds. Patient continues to meet inpatient level of care related to: wet to dry dressing d/t patient unable to tolerate wound vac. At discharge patient will require daily dressing changes. Called [facility] and [place] 3x week. Patient unable to see wound to participate in wound care. Patient called family (brother and sister in law) and they stated they are uncomfortable changing patient's dressing. Asked team to order a PT/OT consults to see if patient needs inpatient rehab. Team updated of above. Functional status prior to admission: Independent Home Environment: Others in the home: sibling(s). Current Living Arrangements: home/apartment/condo. Accessibility Concerns: 2 level home, stays on first level, ramp with railing to enter.. 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 DME used at home: none Patient is insured through: Primary Insurance: [place] Payor: [place] / Plan: [place] / Product Type: *No Product type* / Secondary Insurance: N/A Plan for discharge is: Home w/ Services Outpatient Agency/Support Group Needs: Homecare agency Home Health Services: Registered Nurse, Occupational Therapy Agency Referrals: [facility] for RN, OT Transportation: family or friend will provide Plan going forward: Care Management will continue to follow and assist with discharge planning and coordination of care as indicated. Anticipated Date of Discharge: 09/07/2021 Aria Shultz RN, BSN Case Management Initial Assessments - Aria Shultz RN - 09/03/2021 2:17 PM EDT Office of Care Management Initial Assessment Aria Shultz RN reviewed record and discussed patient with Care Team. 61 yo female with recent recurrent hernia repair with [employer] onlay complicated by abscess s/p I&D, vac, and closure over a drain 2 weeks ago who presents with recurrent left upper quadrant abdominal pain similar but more severe than her chronic abdominal pain, along with severe hypokalemia and wbcto 16. Drain has been putting out 25 mL every other day and she reports the drainage as cloudy. Drainage appears serous on examination in the ED. CT scan shows collapsed pocket in the subq space with some air. Will plan to admit for IV abx, drain observation and repletion of K. No indication for surgical intervention at this time. ??D. Ten Frost MD Patient admitted to [facility] for follow up with pain. Source of Information: Team, bedside nurse, medical record, and Patient Introduced self/reviewed role; services accepted. Reason for Hospitalization: Pain from incision Covid Vaccination Status: 1st, 2nd & booster (Moderna x3) Last COVID test: Lab Results Component Value Date COVID19 Not Detected 08/15/2021 [id number] Not Detected 09/02/2021 Past medical History: Past Medical History: Diagnosis Date ??? Chronic pain Chronic bilat knee (ACL) pain ??? Claudication left leg no acl right leg torn acl ??? Diverticulitis ??? Syncope fainted 10 years ago from heat Hospitalizations Within the Past 30 Days: previous discharge plan unsuccessful Current Decision-Making Capacity: Self Advance Care Planning: Attempt Cardiopulmonary Resuscitation - Inpatient <no information> -Advanced Directive: No, declines If AD's have not been completed brother would be surrogate decision maker per [place] surrogate decision making law. (Only good for 180 days) Any patient receiving care at [facility] must abide by [place] law. The hierarchy for surrogate decision making is: (a) Patient???s spouse, or civil union partner or common law spouse unless there is a divorce proceeding, separation agreement, or restraining order limiting that person???s relationship with the patient. (b) Any adult son or daughter of the patient. (c) Either parent of the patient. (d) Any adult brother or sister of the patient. (e) Any adult grandchild of the patient. (f) Any grandparent of the patient. (g) Any adult aunt, uncle, niece, or nephew of the patient. (h) A close friend of the patient. (i) The agent with financial power of production drilling machine operator or a conservator appointed in accordance with RSA 464-A. (j) The guardian of the patient???s estate. Current Coping/Education/Information Needs: coping ok 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 Functional Status Prior to Admission: Independent Prior ADLs & IADLs: Independent with all ADLs & IADLs Home Environment: Others in the home: sibling(s). Current Living Arrangements: home/apartment/condo. Accessibility Concerns:2 level home, stays on first level, ramp with railing to enter.. Resource / Environmental Concerns: Resource/Environmental Concerns: none Current DME: none Home Address confirmed as: [address] [place] [id number] Social & Family Supports: Extended Emergency Contact Information Primary Emergency Contact: SOLOMON LACY Mobile Relation: Sibling Current Care Provided by: self Provides Primary Care For: no one Caregiver if needed: sibling(s) Quality of Family relationships: helpful, involved Community Resources being provided currently: homecare agency Behavioral Health History: Denies Substance Use/Abuse listed: Social History Tobacco Use Smoking Status Current Every Day Smoker ??? Packs/day: 0.50 ??? Years: 40.00 ??? Pack years: 20.00 ??? Types: Cigarettes Smokeless Tobacco Never Used In the past year have you used an illegal drug or used a prescription medication for non-medical reasons?: No 0 No problems reported 1-2 Low level 3-5 Moderate level 6-8 Substantial level 9- 10 Severe level In the past year have you had 4 or more drinks a day containing alcohol?: No 0 to 7 points: Low risk 8 to 15 points: Medium risk 16 to 19 points: High risk 20 to 40 points: Addiction likely Other Pertinent/Service Specific Information: n/a Health/Prescription Coverage: Primary Insurance: [place] Payor[place] / Plan: [place] / Product Type: *No Product type* / Secondary Insurance: N/A Prescription Coverage: Yes Preferred Pharmacy: [id number] - [place], [place] - [address] [address] [place], [place] - [address] [facility] [address] [place] [address] [address] [facility] [id number] Status: Patient is a : No Primary Care Provider: Ally Ortiz APRN [phone] Patient/Caregiver Goals of Treatment: figure out the pain Potential Needs for Transition of Care: home health care Agency Referrals: I have met with the patient to: ?? discuss discharge planning needs. ?? provide the [facility], Office of Care Management letter from the Canopy Inspector pertaining to rehab referrals. ?? provide a letter describing our affiliations within the [facility] and educate about their right to choose where referrals are sent. ?? provide a list of Home Health Agencies / Durable Medical Equipment vendors which serve their preferred geographic area. ?? provided patient with [facility] Star Quality Rating handout. They have requested referrals to: [facility] For RN & OT [address] [place] [address] PHONE: [phone] FAX: [phone] Note routed to a Roll Filler who will communicate referrals to facilities and provide any required information. Transportation: no concerns Transportation Anticipated: family or friend will provide Concerns to be Addressed: discharge planning Assessment: Patient is admitted to ACS service for Pain Plan: Patient will require test to determine pain issues. When med ready she will discharge home with brother and support of [facility] [employer]. A member of the Care Management team will continue to monitor progress, follow for continuity of care and assist with transition of care planning. Aria Shultz, RN, BSN Case Management ED Triage - Ellen Stauffer RN - 09/02/2021 3:52 PM EDT HPI (Adult) Stated Reason for Visit: recent abd abcess with surgery, no with signifiant abd pain, reported melody discharge from wound in abd, denies fever documented in this encounter Plan of Treatment Upcoming Encounters Date Type Specialty Care Team Description 09/30/2021 Office Visit General Surgery Paloma Mota, STRIP CUTTING MACHINE OPERATOR [facility] ER GENERAL SURGERY [place], [place] [address] (Wo rk) 09/30/2021 Office Visit Infectious Diseases Werner Harrell MD [facility] ER INFECTIOUS DISEA SE [place], [place] [address] (Wo rk) Scheduled Referrals Name Type Priority Associated Diagnoses Order S chedule Referral to Home Outpatient Referral Routine Wound infection O rdered: Health after surgery 09/19/2021 Abscess of abdominal wall documented as of this encounter Procedures Procedure Name Priority Date/Time Associated Diagnosis Comme nts POCT GLUCOSE Routine 09/19/2021 10:54 Results for this AM EDT procedure are i n the results section. POCT GLUCOSE Routine 09/19/2021 7:52 AM Results f or this EDT procedure are i n the results section. POCT GLUCOSE Routine 09/18/2021 8:41 PM Results f or this EDT procedure are i n the results section. POCT GLUCOSE Routine 09/18/2021 5:46 PM Results f or this EDT procedure are i n the results section. POCT GLUCOSE Routine 09/18/2021 12:42 Results for this PM EDT procedure are i n the results section. POCT GLUCOSE Routine 09/18/2021 8:31 AM Results f or this EDT procedure are i n the results section. POCT GLUCOSE Routine 09/17/2021 8:57 PM Results f or this EDT procedure are i n the results section. POCT GLUCOSE Routine 09/17/2021 3:29 PM Results f or this EDT procedure are i n the results section. POCT GLUCOSE Routine 09/17/2021 11:07 Results for this AM EDT procedure are i n the results section. POCT GLUCOSE Routine 09/17/2021 6:42 AM Results f or this EDT procedure are i n the results section. POCT GLUCOSE Routine 09/16/2021 9:04 PM Results f or this EDT procedure are i n the results section. POCT GLUCOSE Routine 09/16/2021 4:31 PM Results f or this EDT procedure are i n the results section. POCT GLUCOSE Routine 09/16/2021 11:45 Results for this AM EDT procedure are i n the results section. POCT GLUCOSE Routine 09/16/2021 7:01 AM Results f or this EDT procedure are i n the results section. POCT GLUCOSE Routine 09/15/2021 9:24 PM Results f or this EDT procedure are i n the results section. POCT GLUCOSE Routine 09/15/2021 3:45 PM Results f or this EDT procedure are i n the results section. POCT GLUCOSE Routine 09/15/2021 11:29 Results for this AM EDT procedure are i n the results section. POCT GLUCOSE Routine 09/15/2021 7:44 AM Results f or this EDT procedure are i n the results section. POCT GLUCOSE Routine 09/14/2021 9:23 PM Results f or this EDT procedure are i n the results section. POCT GLUCOSE Routine 09/14/2021 4:28 PM Results f or this EDT procedure are i n the results section. POCT GLUCOSE Routine 09/14/2021 11:56 Results for this AM EDT procedure are i n the results section. POCT GLUCOSE Routine 09/14/2021 7:58 AM Results f or this EDT procedure are i n the results section. POCT GLUCOSE Routine 09/13/2021 10:30 Results for this PM EDT procedure are i n the results section. DEBRIDEMENT SKIN AND 09/13/2021 8:13 PM midline wound SUBCU, FIRST 20 SQ EDT needing debridement CM, ABDOMEN (WRVU 1.01) POCT GLUCOSE Routine 09/13/2021 3:37 PM Results f or this EDT procedure are i n the results section. DEBRIDEMENT SKIN AND Routine 09/13/2021 1:21 PM SUBCU, ABDOMEN EDT POCT GLUCOSE Routine 09/13/2021 11:55 Results for this AM EDT procedure are i n the results section. POCT GLUCOSE Routine 09/13/2021 7:38 AM Results f or this EDT procedure are i n the results section. POCT GLUCOSE Routine 09/12/2021 8:37 PM Results f or this EDT procedure are i n the results section. POCT GLUCOSE Routine 09/12/2021 4:50 PM Results f or this EDT procedure are i n the results section. POCT GLUCOSE Routine 09/12/2021 11:44 Results for this AM EDT procedure are i n the results section. POCT GLUCOSE Routine 09/12/2021 8:01 AM Results f or this EDT procedure are i n the results section. POCT GLUCOSE Routine 09/11/2021 9:01 PM Results f or this EDT procedure are i n the results section. POCT GLUCOSE Routine 09/11/2021 4:22 PM Results f or this EDT procedure are i n the results section. POCT GLUCOSE Routine 09/11/2021 12:06 Results for this PM EDT procedure are i n the results section. POCT GLUCOSE Routine 09/11/2021 7:18 AM Results f or this EDT procedure are i n the results section. POCT GLUCOSE Routine 09/10/2021 9:38 PM Results f or this EDT procedure are i n the results section. POCT GLUCOSE Routine 09/10/2021 6:43 PM Results f or this EDT procedure are i n the results section. POCT GLUCOSE Routine 09/10/2021 11:33 Results for this AM EDT procedure are i n the results section. POCT GLUCOSE Routine 09/10/2021 7:29 AM Results f or this EDT procedure are i n the results section. POCT GLUCOSE Routine 09/09/2021 8:11 PM Results f or this EDT procedure are i n the results section. POCT GLUCOSE Routine 09/09/2021 3:50 PM Results f or this EDT procedure are i n the results section. POCT GLUCOSE Routine 09/09/2021 11:49 Results for this AM EDT procedure are i n the results section. POCT GLUCOSE Routine 09/09/2021 7:11 AM Results f or this EDT procedure are i n the results section. POCT GLUCOSE Routine 09/08/2021 8:36 PM Results f or this EDT procedure are i n the results section. POCT GLUCOSE Routine 09/08/2021 3:26 PM Results f or this EDT procedure are i n the results section. POCT GLUCOSE Routine 09/08/2021 12:01 Results for this PM EDT procedure are i n the results section. POCT GLUCOSE Routine 09/08/2021 7:57 AM Results f or this EDT procedure are i n the results section. POCT GLUCOSE Routine 09/07/2021 8:39 PM Results f or this EDT procedure are i n the results section. POCT GLUCOSE Routine 09/07/2021 5:26 PM Results f or this EDT procedure are i n the results section. POCT GLUCOSE Routine 09/07/2021 12:09 Results for this PM EDT procedure are i n the results section. POCT GLUCOSE Routine 09/06/2021 8:12 PM Results f or this EDT procedure are i n the results section. POCT GLUCOSE Routine 09/06/2021 4:46 PM Results f or this EDT procedure are i n the results section. POCT GLUCOSE Routine 09/06/2021 11:28 Results for this AM EDT procedure are i n the results section. HC PHOSPHORUS, SERUM Routine 09/06/2021 9:09 AM R esults for this EDT procedure are i n the results section. HC MAGNESIUM, SERUM Routine 09/06/2021 9:09 AM Re sults for this EDT procedure are i n the results section. HC VENIPUNCTURE Routine 09/06/2021 9:09 AM Result s for this EDT procedure are i n the results section. POCT GLUCOSE Routine 09/06/2021 7:37 AM Results f or this EDT procedure are i n the results section. HC PHOSPHORUS, SERUM Routine 09/06/2021 4:33 AM R esults for this EDT procedure are i n the results section. HC MAGNESIUM, SERUM Routine 09/06/2021 4:33 AM Re sults for this EDT procedure are i n the results section. HC VENIPUNCTURE Routine 09/06/2021 4:33 AM Result s for this EDT procedure are i n the results section. POCT GLUCOSE Routine 09/05/2021 8:03 PM Results f or this EDT procedure are i n the results section. POCT GLUCOSE Routine 09/05/2021 4:38 PM Results f or this EDT procedure are i n the results section. POCT GLUCOSE Routine 09/05/2021 11:30 Results for this AM EDT procedure are i n the results section. POCT GLUCOSE Routine 09/05/2021 7:15 AM Results f or this EDT procedure are i n the results section. POCT GLUCOSE Routine 09/04/2021 8:19 PM Results f or this EDT procedure are i n the results section. POCT GLUCOSE Routine 09/04/2021 4:19 PM Results f or this EDT procedure are i n the results section. POCT GLUCOSE Routine 09/04/2021 11:30 Results for this AM EDT procedure are i n the results section. POCT GLUCOSE Routine 09/04/2021 7:40 AM Results f or this EDT procedure are i n the results section. POCT GLUCOSE Routine 09/03/2021 8:36 PM Results f or this EDT procedure are i n the results section. POCT GLUCOSE Routine 09/03/2021 4:35 PM Results f or this EDT procedure are i n the results section. HEMOGRAM Timed 09/03/2021 3:29 PM Results f or this EDT procedure are i n the results section. DIFFERENTIAL, Timed 09/03/2021 3:29 PM Results for this AUTOMATED EDT procedure are i n the results section. HC CBC,PLT & AUTO Timed 09/03/2021 3:29 PM DIFF EDT HC PHOSPHORUS, SERUM Routine 09/03/2021 3:29 PM R esults for this EDT procedure are i n the results section. HC MAGNESIUM, SERUM Routine 09/03/2021 3:29 PM Re sults for this EDT procedure are i n the results section. HC VENIPUNCTURE Timed 09/03/2021 3:29 PM Result s for this EDT procedure are i n the results section. POCT GLUCOSE Routine 09/03/2021 12:29 Results for this PM EDT procedure are i n the results section. POCT GLUCOSE Routine 09/03/2021 7:36 AM Results f or this EDT procedure are i n the results section. HC VENIPUNCTURE Timed 09/03/2021 1:24 AM Result s for this EDT procedure are i n the results section. URINALYSIS STAT 09/02/2021 10:30 Results for this MICROSCOPIC EXAM PM EDT procedure a re in the results section. URINALYSIS WITH STAT 09/02/2021 10:30 Results for this REFLEX CULTURE PM EDT procedure are in the results section. POCT GLUCOSE Routine 09/02/2021 10:10 Results for this PM EDT procedure are i n the results section. RAPID COVID-19 PCR STAT 09/02/2021 9:31 PM Res ults for this ([facility]) EDT procedure are in the results section. HC BLOOD CULTURE- STAT 09/02/2021 7:30 PM Resu lts for this EDT procedure are i n the results section. CT ABDOMEN AND PELVIS STAT 09/02/2021 6:01 PM Results for this W CONTRAST EDT procedure are i n the results section. HC BLOOD CULTURE- STAT 09/02/2021 5:08 PM Resu lts for this EDT procedure are i n the results section. SCAN, PERIPHERAL STAT 09/02/2021 5:07 PM Resul ts for this BLOOD EDT procedure are i n the results section. HEMOGRAM STAT 09/02/2021 5:07 PM Results f or this EDT procedure are i n the results section. DIFFERENTIAL, STAT 09/02/2021 5:07 PM Results for this AUTOMATED EDT procedure are i n the results section. HC L-LACTATE STAT 09/02/2021 5:07 PM Results f or this EDT procedure are i n the results section. HC CBC,PLT & AUTO STAT 09/02/2021 5:07 PM DIFF EDT PHOSPHORUS STAT 09/02/2021 5:07 PM Results f or this EDT procedure are i n the results section. MAGNESIUM STAT 09/02/2021 5:07 PM Results f or this EDT procedure are i n the results section. BASIC METABOLIC PANEL STAT 09/02/2021 5:07 PM Results for this (NON-FASTING) EDT procedure are in the results section. documented in this encounter Results POCT Glucose (09/19/2021 10:54 AM EDT) athologist Signature POC Glucose 175 65 - 199 NELLA NAVEEN mg/dL [facility] Comment: Supplemental ranges: <140 mg/dL before meals <180 mg/dL all other times of the day Specimen Anatomical Collection Method Collection Time Receive d Time (Source) Location / / Volume Laterality Blood 09/19/2021 10:54 09/19/2021 AM EDT 10:54 AM EDT Gabriel Daniel MD POINT OF CARE TEST ORDERABLE S Performing Organization Address City/[facility]/ZIP Code Phon e Number [address] POCT Glucose (09/19/2021 7:52 AM EDT) athologist Signature POC Glucose 108 65 - 199 NELLA NAVEEN mg/dL [facility] Comment: Supplemental ranges: <140 mg/dL before meals <180 mg/dL all other times of the day Specimen Anatomical Collection Method Collection Time Receive d Time (Source) Location / / Volume Laterality Blood 09/19/2021 7:52 AM 7:52 EDT AM EDT Gabriel Daniel MD POINT OF CARE TEST ORDERABLE S Performing Organization Address City/State/[place] [address] POCT Glucose (09/18/2021 8:41 PM EDT) athologist Signature POC Glucose 184 65 - 199 NELLA NAVEEN mg/dL [facility] Comment: Supplemental ranges: <140 mg/dL before meals <180 mg/dL all other times of the day Specimen Anatomical Collection Method Collection Time Receive d Time (Source) Location / / Volume Laterality Blood 09/18/2021 8:41 PM 2 8:41 EDT PM EDT Gabriel Daniel MD POINT OF CARE TEST ORDERABLE S Performing Organization Address City/State/[place] [address] POCT Glucose (09/18/2021 5:46 PM EDT) athologist Signature POC Glucose 135 65 - 199 NELLA HERNANDEZNAVEEN mg/dL [facility] Comment: Supplemental ranges: <140 mg/dL before meals <180 mg/dL all other times of the day Specimen Anatomical Collection Method Collection Time Receive d Time (Source) Location / / Volume Laterality Blood 09/18/2021 5:46 PM 5:46 EDT PM EDT Gabriel Daniel MD POINT OF CARE TEST ORDERABLE S Performing Organization Address City/State/ZIP Code Phon e Number [address] POCT Glucose (09/18/2021 12:42 PM EDT) athologist Signature POC Glucose 133 65 - 199 NELLA HERNANDEZNAVEEN mg/dL [facility] Comment: Supplemental ranges: <140 mg/dL before meals <180 mg/dL all other times of the day Specimen Anatomical Collection Method Collection Time Receive d Time (Source) Location / / Volume Laterality Blood 09/18/2021 12:42 09/18/2021 PM EDT 12:42 PM EDT Gabriel Daniel MD POINT OF CARE TEST ORDERABLE S Performing Organization Address City/State/ZIP Code Phon e Number [address] POCT Glucose (09/18/2021 8:31 AM EDT) athologist Signature POC Glucose 109 65 - 199 NELLA NAVEEN mg/dL [facility] Comment: Supplemental ranges: <140 mg/dL before meals <180 mg/dL all other times of the day Specimen Anatomical Collection Method Collection Time Receive d Time (Source) Location / / Volume Laterality Blood 09/18/2021 8:31 AM 8:31 EDT AM EDT Gabriel Daniel MD POINT OF CARE TEST ORDERABLE S Performing Organization Address City/State/[place] [address] POCT Glucose (09/17/2021 8:57 PM EDT) athologist Signature POC Glucose 155 65 - 199 NELLA NAVEEN mg/dL [facility] Comment: Supplemental ranges: <140 mg/dL before meals <180 mg/dL all other times of the day Specimen Anatomical Collection Method Collection Time Receive d Time (Source) Location / / Volume Laterality Blood 09/17/2021 8:57 PM 2 8:57 EDT PM EDT Gabriel Daniel MD POINT OF CARE TEST ORDERABLE S Performing Organization Address City/State/[place] [address] (ABNORMAL) POCT Glucose (09/17/2021 3:29 PM EDT) athologist Signature POC Glucose 225 (H) 65 - 199 NELLA HERNANDEZNAVEEN mg/dL [facility] Comment: Supplemental ranges: <140 mg/dL before meals <180 mg/dL all other times of the day Specimen Anatomical Collection Method Collection Time Receive d Time (Source) Location / / Volume Laterality Blood 09/17/2021 3:29 PM 2 3:29 EDT PM EDT Gabriel Daniel MD POINT OF CARE TEST ORDERABLE S Performing Organization Address City/State/[place] [address] POCT Glucose (09/17/2021 11:07 AM EDT) athologist Signature POC Glucose 156 65 - 199 NELLA NAVEEN mg/dL [facility] Comment: Supplemental ranges: <140 mg/dL before meals <180 mg/dL all other times of the day Specimen Anatomical Collection Method Collection Time Receive d Time (Source) Location / / Volume Laterality Blood 09/17/2021 11:07 09/17/2021 AM EDT 11:07 AM EDT Gabriel Daniel MD POINT OF CARE TEST ORDERABLE S Performing Organization Address City/State/[place] [address] POCT Glucose (09/17/2021 6:42 AM EDT) athologist Signature POC Glucose 135 65 - 199 NELLA NAVEEN mg/dL [facility] Comment: Supplemental ranges: <140 mg/dL before meals <180 mg/dL all other times of the day Specimen Anatomical Collection Method Collection Time Receive d Time (Source) Location / / Volume Laterality Blood 09/17/2021 6:42 AM 2 6:42 EDT AM EDT Gabriel Daniel MD POINT OF CARE TEST ORDERABLE S Performing Organization Address City/State/[place] [address] POCT Glucose (09/16/2021 9:04 PM EDT) athologist Signature POC Glucose 154 65 - 199 NELLA NAVEEN mg/dL [facility] Comment: Supplemental ranges: <140 mg/dL before meals <180 mg/dL all other times of the day Specimen Anatomical Collection Method Collection Time Receive d Time (Source) Location / / Volume Laterality Blood 09/16/2021 9:04 PM 2 9:04 EDT PM EDT Ai Arriaza MD POINT OF CARE TEST ORDERABLE S Performing Organization Address City/State/[place] [address] POCT Glucose (09/16/2021 4:31 PM EDT) athologist Signature POC Glucose 155 65 - 199 [place]LLA [place]AVEEN mg/dL [facility] Comment: Supplemental ranges: <140 mg/dL before meals <180 mg/dL all other times of the day Specimen Anatomical Collection Method Collection Time Receive d Time (Source) Location / / Volume Laterality Blood 09/16/2021 4:31 PM 2 4:31 EDT PM EDT Ai Arriaza MD POINT OF CARE TEST ORDERABLE S Performing Organization Address City/State/ZIP Code Phon e Number [address] POCT Glucose (09/16/2021 11:45 AM EDT) athologist Signature POC Glucose 133 65 - 199 [place] NAVEEN mg/dL [facility] Comment: Supplemental ranges: <140 mg/dL before meals <180 mg/dL all other times of the day Specimen Anatomical Collection Method Collection Time Receive d Time (Source) Location / / Volume Laterality Blood 09/16/2021 11:45 09/16/2021 AM EDT 11:45 AM EDT Ai Arriaza MD POINT OF CARE TEST ORDERABLE S Performing Organization Address City/State/ZIP Code Phon e Number [address] POCT Glucose (09/16/2021 7:01 AM EDT) athologist Signature POC Glucose 125 65 - 199 [place]AVE[place] mg/dL [facility] Comment: Supplemental ranges: <140 mg/dL before meals <180 mg/dL all other times of the day Specimen Anatomical Collection Method Collection Time Receive d Time (Source) Location / / Volume Laterality Blood 09/16/2021 7:01 AM 7:01 EDT AM EDT Ai Arriaza MD POINT OF CARE TEST ORDERABLE S Performing Organization Address City/State/ZIP Code Phon e Number [address] POCT Glucose (09/15/2021 9:24 PM EDT) athologist Signature POC Glucose 139 65 - 199 [place]AVE[place] mg/dL [facility] Comment: Supplemental ranges: <140 mg/dL before meals <180 mg/dL all other times of the day Specimen Anatomical Collection Method Collection Time Receive d Time (Source) Location / / Volume Laterality Blood 09/15/2021 9:24 PM 2 9:24 EDT PM EDT Ai Arriaza MD POINT OF CARE TEST ORDERABLE S Performing Organization Address City/State/ZIP Code Phon e Number [address] POCT Glucose (09/15/2021 3:45 PM EDT) athologist Signature POC Glucose 186 65 - 199 [place]AVE[place] mg/dL [facility] Comment: Supplemental ranges: <140 mg/dL before meals <180 mg/dL all other times of the day Specimen Anatomical Collection Method Collection Time Receive d Time (Source) Location / / Volume Laterality Blood 09/15/2021 3:45 PM 3:45 EDT PM EDT Ai Arriaza MD POINT OF CARE TEST ORDERABLE S Performing Organization Address City/State/[place] [address] POCT Glucose (09/15/2021 11:29 AM EDT) athologist Signature POC Glucose 145 65 - 199 [place] NAVE[place] mg/dL [facility] Comment: Supplemental ranges: <140 mg/dL before meals <180 mg/dL all other times of the day Specimen Anatomical Collection Method Collection Time Receive d Time (Source) Location / / Volume Laterality Blood 09/15/2021 11:29 09/15/2021 AM EDT 11:29 AM EDT Ai Arriaza MD POINT OF CARE TEST ORDERABLE S Performing Organization Address City/State/[place] [address] POCT Glucose (09/15/2021 7:44 AM EDT) athologist Signature POC Glucose 107 65 - 199 [place]AVE[place] mg/dL [facility] Comment: Supplemental ranges: <140 mg/dL before meals <180 mg/dL all other times of the day Specimen Anatomical Collection Method Collection Time Receive d Time (Source) Location / / Volume Laterality Blood 09/15/2021 7:44 AM 7:44 EDT AM EDT Ai Arriaza MD POINT OF CARE TEST ORDERABLE S Performing Organization Address City/State/ZIP Code Phon e Number [place] [id number] [address] POCT Glucose (09/14/2021 9:23 PM EDT) athologist Signature POC Glucose 177 65 - 199 NELL[place] NAVEEN mg/dL [facility] Comment: Supplemental ranges: <140 mg/dL before meals <180 mg/dL all other times of the day Specimen Anatomical Collection Method Collection Time Receive d Time (Source) Location / / Volume Laterality Blood 09/14/2021 9:23 PM 2 9:23 EDT PM EDT Ai Arriaza MD POINT OF CARE TEST ORDERABLE S Performing Organization Address City/State/[place] [address] (ABNORMAL) POCT Glucose (09/14/2021 4:28 PM EDT) athologist Signature POC Glucose 231 (H) 65 - 199 [place] NAVEEN mg/dL [facility] Comment: Supplemental ranges: <140 mg/dL before meals <180 mg/dL all other times of the day Specimen Anatomical Collection Method Collection Time Receive d Time (Source) Location / / Volume Laterality Blood 09/14/2021 4:28 PM 2 4:28 EDT PM EDT Ai Arriaza MD POINT OF CARE TEST ORDERABLE S Performing Organization Address City/State/[place] [address] POCT Glucose (09/14/2021 11:56 AM EDT) athologist Signature POC Glucose 160 65 - 199 [place] NAVEEN mg/dL [facility] Comment: Supplemental ranges: <140 mg/dL before meals <180 mg/dL all other times of the day Specimen Anatomical Collection Method Collection Time Receive d Time (Source) Location / / Volume Laterality Blood 09/14/2021 11:56 09/14/2021 AM EDT 11:56 AM EDT Ai Arriaza MD POINT OF CARE TEST ORDERABLE S Performing Organization Address City/State/[place] [address] POCT Glucose (09/14/2021 7:58 AM EDT) athologist Signature POC Glucose 171 65 - 199 [place] NAVE[place] mg/dL [facility] Comment: Supplemental ranges: <140 mg/dL before meals <180 mg/dL all other times of the day Specimen Anatomical Collection Method Collection Time Receive d Time (Source) Location / / Volume Laterality Blood 09/14/2021 7:58 AM 2 7:58 EDT AM EDT Ai Arriaza MD POINT OF CARE TEST ORDERABLE S Performing Organization Address City/State/[place] [address] POCT Glucose (09/13/2021 10:30 PM EDT) athologist Signature POC Glucose 167 65 - 199 [place]AVE[place] mg/dL [facility] Comment: Supplemental ranges: <140 mg/dL before meals <180 mg/dL all other times of the day Specimen Anatomical Collection Method Collection Time Receive d Time (Source) Location / / Volume Laterality Blood 09/13/2021 10:30 09/13/2021 PM EDT 10:30 PM EDT Ai Arriaza MD POINT OF CARE TEST ORDERABLE S Performing Organization Address City/State/[place] [address] POCT Glucose (09/13/2021 3:37 PM EDT) athologist Signature POC Glucose 124 65 - 199 [place]AVE[place] mg/dL [facility] Comment: Supplemental ranges: <140 mg/dL before meals <180 mg/dL all other times of the day Specimen Anatomical Collection Method Collection Time Receive d Time (Source) Location / / Volume Laterality Blood 09/13/2021 3:37 PM 2 3:37 EDT PM EDT Ai Arriaza MD POINT OF CARE TEST ORDERABLE S Performing Organization Address City/State/[place] [address] POCT Glucose (09/13/2021 11:55 AM EDT) athologist Signature POC Glucose 118 65 - 199 [place]AVE[place] mg/dL [facility] Comment: Supplemental ranges: <140 mg/dL before meals <180 mg/dL all other times of the day Specimen Anatomical Collection Method Collection Time Receive d Time (Source) Location / / Volume Laterality Blood 09/13/2021 11:55 09/13/2021 AM EDT 11:55 AM EDT Ai Arriaza MD POINT OF CARE TEST ORDERABLE S Performing Organization Address City/State/[place] [address] POCT Glucose (09/13/2021 7:38 AM EDT) athologist Signature POC Glucose 116 65 - 199 [place]AVE[place] mg/dL [facility] Comment: Supplemental ranges: <140 mg/dL before meals <180 mg/dL all other times of the day Specimen Anatomical Collection Method Collection Time Receive d Time (Source) Location / / Volume Laterality Blood 09/13/2021 7:38 AM 2 7:38 EDT AM EDT Ai Arriaza MD POINT OF CARE TEST ORDERABLE S Performing Organization Address City/State/[place] [address] POCT Glucose (09/12/2021 8:37 PM EDT) athologist Signature POC Glucose 131 65 - 199 [place]AVE[place] mg/dL [facility] Comment: Supplemental ranges: <140 mg/dL before meals <180 mg/dL all other times of the day Specimen Anatomical Collection Method Collection Time Receive d Time (Source) Location / / Volume Laterality Blood 09/12/2021 8:37 PM 2 8:37 EDT PM EDT Ai Arriaza MD POINT OF CARE TEST ORDERABLE S Performing Organization Address City/State/[place] [address] POCT Glucose (09/12/2021 4:50 PM EDT) athologist Signature POC Glucose 183 65 - 199 [place]AVE[place] mg/dL [facility] Comment: Supplemental ranges: <140 mg/dL before meals <180 mg/dL all other times of the day Specimen Anatomical Collection Method Collection Time Receive d Time (Source) Location / / Volume Laterality Blood 09/12/2021 4:50 PM 2 4:50 EDT PM EDT Ai Arriaza MD POINT OF CARE TEST ORDERABLE S Performing Organization Address City/State/[place] [address] POCT Glucose (09/12/2021 11:44 AM EDT) athologist Signature POC Glucose 128 65 - 199 [place]AVEEN mg/dL [facility] Comment: Supplemental ranges: <140 mg/dL before meals <180 mg/dL all other times of the day Specimen Anatomical Collection Method Collection Time Receive d Time (Source) Location / / Volume Laterality Blood 09/12/2021 11:44 09/12/2021 AM EDT 11:44 AM EDT Ai Arriaza MD POINT OF CARE TEST ORDERABLE S Performing Organization Address City/State/[place] [address] POCT Glucose (09/12/2021 8:01 AM EDT) athologist Signature POC Glucose 116 65 - 199 [place]AVE[place] mg/dL [facility] Comment: Supplemental ranges: <140 mg/dL before meals <180 mg/dL all other times of the day Specimen Anatomical Collection Method Collection Time Receive d Time (Source) Location / / Volume Laterality Blood 09/12/2021 8:01 AM 2 8:01 EDT AM EDT Ai Arriaza MD POINT OF CARE TEST ORDERABLE S Performing Organization Address City/State/[place] [address] (ABNORMAL) POCT Glucose (09/11/2021 9:01 PM EDT) athologist Signature POC Glucose 218 (H) 65 - 199 [place]AVE[place] mg/dL [facility] Comment: Supplemental ranges: <140 mg/dL before meals <180 mg/dL all other times of the day Specimen Anatomical Collection Method Collection Time Receive d Time (Source) Location / / Volume Laterality Blood 09/11/2021 9:01 PM 2 9:01 EDT PM EDT Ai Arriaza MD POINT OF CARE TEST ORDERABLE S Performing Organization Address City/State/ZIP Code Phon e Number [address] POCT Glucose (09/11/2021 4:22 PM EDT) P athologist Signature POC Glucose 137 65 - 199 [place]AVE[place] mg/dL [facility] Comment: Supplemental ranges: <140 mg/dL before meals <180 mg/dL all other times of the day Specimen Anatomical Collection Method Collection Time Receive d Time (Source) Location / / Volume Laterality Blood 09/11/2021 4:22 PM 2 4:22 EDT PM EDT Joshua Che MD POINT OF CARE TEST ORDERABLE S Performing Organization Address City/State/[place] [address] POCT Glucose (09/11/2021 12:06 PM EDT) athologist Signature POC Glucose 163 65 - 199 [place]AVE[place] mg/dL [facility] Comment: Supplemental ranges: <140 mg/dL before meals <180 mg/dL all other times of the day Specimen Anatomical Collection Method Collection Time Receive d Time (Source) Location / / Volume Laterality Blood 09/11/2021 12:06 09/11/2021 PM EDT 12:06 PM EDT Joshua Che MD POINT OF CARE TEST ORDERABLE S Performing Organization Address City/State/ZIP Code Phon e Number [place] [id number] [facility] [address] POCT Glucose (09/11/2021 7:18 AM EDT) athologist Signature POC Glucose 141 65 - 199 [place] NAVEEN mg/dL [facility] Comment: Supplemental ranges: <140 mg/dL before meals <180 mg/dL all other times of the day Specimen Anatomical Collection Method Collection Time Receive d Time (Source) Location / / Volume Laterality Blood 09/11/2021 7:18 AM 06/29/202 2 7:18 EDT AM EDT Joshua Che MD POINT OF CARE TEST ORDERABLE S Performing Organization Address City/State/ZIP Code Phon e Number [address] POCT Glucose (09/10/2021 9:38 PM EDT) athologist Signature POC Glucose 199 65 - 199 [place]AVE[place] mg/dL [facility] Comment: Supplemental ranges: <140 mg/dL before meals <180 mg/dL all other times of the day Specimen Anatomical Collection Method Collection Time Receive d Time (Source) Location / / Volume Laterality Blood 09/10/2021 9:38 PM 2 9:38 EDT PM EDT Joshua Che MD POINT OF CARE TEST ORDERABLE S Performing Organization Address City/[facility]/[place] [address] POCT Glucose (09/10/2021 6:43 PM EDT) athologist Signature POC Glucose 149 65 - 199 [place] NAVE[place] mg/dL [facility] Comment: Supplemental ranges: <140 mg/dL before meals <180 mg/dL all other times of the day Specimen Anatomical Collection Method Collection Time Receive d Time (Source) Location / / Volume Laterality Blood 09/10/2021 6:43 PM 2 6:43 EDT PM EDT Joshua Che MD POINT OF CARE TEST ORDERABLE S Performing Organization Address City/State/[place] [address] POCT Glucose (09/10/2021 11:33 AM EDT) athologist Signature POC Glucose 125 65 - 199 [place] NAVE[place] mg/dL [facility] Comment: Supplemental ranges: <140 mg/dL before meals <180 mg/dL all other times of the day Specimen Anatomical Collection Method Collection Time Receive d Time (Source) Location / / Volume Laterality Blood 09/10/2021 11:33 09/10/2021 AM EDT 11:33 AM EDT Joshua Che MD POINT OF CARE TEST ORDERABLE S Performing Organization Address City/State/[place] [address] POCT Glucose (09/10/2021 7:29 AM EDT) athologist Signature POC Glucose 126 65 - 199 [place] HERNAN[place]ZNAVEEN mg/dL [facility] Comment: Supplemental ranges: <140 mg/dL before meals <180 mg/dL all other times of the day Specimen Anatomical Collection Method Collection Time Receive d Time (Source) Location / / Volume Laterality Blood 09/10/2021 7:29 AM 2 7:29 EDT AM EDT Joshua Che MD POINT OF CARE TEST ORDERABLE S Performing Organization Address City/[facility]/[place] [address] (ABNORMAL) POCT Glucose (09/09/2021 8:11 PM EDT) athologist Signature POC Glucose 221 (H) 65 - 199 [place]AVE[place] mg/dL [facility] Comment: Supplemental ranges: <140 mg/dL before meals <180 mg/dL all other times of the day Specimen Anatomical Collection Method Collection Time Receive d Time (Source) Location / / Volume Laterality Blood 09/09/2021 8:11 PM 2 8:11 EDT PM EDT Joshua Che MD POINT OF CARE TEST ORDERABLE S Performing Organization Address City/State/[place] [address] POCT Glucose (09/09/2021 3:50 PM EDT) athologist Signature POC Glucose 165 65 - 199 [place] NAVEEN mg/dL [facility] Comment: Supplemental ranges: <140 mg/dL before meals <180 mg/dL all other times of the day Specimen Anatomical Collection Method Collection Time Receive d Time (Source) Location / / Volume Laterality Blood 09/09/2021 3:50 PM 2 3:50 EDT PM EDT Joshua Che MD POINT OF CARE TEST ORDERABLE S Performing Organization Address City/State/ZIP Code Phon e Number [address] POCT Glucose (09/09/2021 11:49 AM EDT) athologist Signature POC Glucose 121 65 - 199 [place] NAVEEN mg/dL [facility] Comment: Supplemental ranges: <140 mg/dL before meals <180 mg/dL all other times of the day Specimen Anatomical Collection Method Collection Time Receive d Time (Source) Location / / Volume Laterality Blood 09/09/2021 11:49 09/09/2021 AM EDT 11:49 AM EDT Negro Watetrs MD POINT OF CARE TEST ORDERABLE S Performing Organization Address City/[facility]/ZIP Code Phon e Number [address] POCT Glucose (09/09/2021 7:11 AM EDT) athologist Signature POC Glucose 117 65 - 199 [place] NAVE[place] mg/dL [facility] Comment: Supplemental ranges: <140 mg/dL before meals <180 mg/dL all other times of the day Specimen Anatomical Collection Method Collection Time Receive d Time (Source) Location / / Volume Laterality Blood 09/09/2021 7:11 AM 2 7:11 EDT AM EDT Negro Watters MD POINT OF CARE TEST ORDERABLE S Performing Organization Address City/[facility]/ZIP Code Phon e Number [address] POCT Glucose (09/08/2021 8:36 PM EDT) athologist Signature POC Glucose 175 65 - 199 [place] NAVEEN mg/dL [facility] Comment: Supplemental ranges: <140 mg/dL before meals <180 mg/dL all other times of the day Specimen Anatomical Collection Method Collection Time Receive d Time (Source) Location / / Volume Laterality Blood 09/08/2021 8:36 PM 2 8:36 EDT PM EDT Negro Watters MD POINT OF CARE TEST ORDERABLE S Performing Organization Address City/State/[place] [address] (ABNORMAL) POCT Glucose (09/08/2021 3:26 PM EDT) athologist Signature POC Glucose 206 (H) 65 - 199 [place] NAVE[place] mg/dL [facility] Comment: Supplemental ranges: <140 mg/dL before meals <180 mg/dL all other times of the day Specimen Anatomical Collection Method Collection Time Receive d Time (Source) Location / / Volume Laterality Blood 09/08/2021 3:26 PM 3:26 EDT PM EDT Negro Watters MD POINT OF CARE TEST ORDERABLE S Performing Organization Address City/State/ZIP Code Phon e Number [place] [phone] POCT Glucose (09/08/2021 12:01 PM EDT) athologist Signature POC Glucose 142 65 - 199 [place] NAVEEN mg/dL [facility] Comment: Supplemental ranges: <140 mg/dL before meals <180 mg/dL all other times of the day Specimen Anatomical Collection Method Collection Time Receive d Time (Source) Location / / Volume Laterality Blood 09/08/2021 12:01 09/08/2021 PM EDT 12:01 PM EDT Negro Watters MD POINT OF CARE TEST ORDERABLE S Performing Organization Address City/State/ZIP Code Phon e Number [facility] [place] [address] POCT Glucose (09/08/2021 7:57 AM EDT) athologist Signature POC Glucose 137 65 - 199 NELL[place] NAVEEN mg/dL [facility] Comment: Supplemental ranges: <140 mg/dL before meals <180 mg/dL all other times of the day Specimen Anatomical Collection Method Collection Time Receive d Time (Source) Location / / Volume Laterality Blood 09/08/2021 7:57 AM 7:57 EDT AM EDT Negro Watters MD POINT OF CARE TEST ORDERABLE S Performing Organization Address City/State/ZIP Code Phon e Number [address] POCT Glucose (09/07/2021 8:39 PM EDT) athologist Signature POC Glucose 132 65 - 199 [facility] NAVE[facility] mg/dL [facility] Comment: Supplemental ranges: <140 mg/dL before meals <180 mg/dL all other times of the day Specimen Anatomical Collection Method Collection Time Receive d Time (Source) Location / / Volume Laterality Blood 09/07/2021 8:39 PM 2 8:39 EDT PM EDT Negro Watters MD POINT OF CARE TEST ORDERABLE S Performing Organization Address City/State/ZIP Code Phon e Number [address] POCT Glucose (09/07/2021 5:26 PM EDT) athologist Signature POC Glucose 123 65 - 199 [facility] Comment: Supplemental ranges: <140 mg/dL before meals <180 mg/dL all other times of the day Specimen Anatomical Collection Method Collection Time Receive d Time (Source) Location / / Volume Laterality Blood 09/07/2021 5:26 PM 2 5:26 EDT PM EDT Negro Watters MD POINT OF CARE TEST ORDERABLE S Performing Organization Address City/State/ZIP Code Phon e Number [address] POCT Glucose (09/07/2021 12:09 PM EDT) athologist Signature POC Glucose 117 65 - 199 [place] NAVEEN mg/dL [facility] Comment: Supplemental ranges: <140 mg/dL before meals <180 mg/dL all other times of the day Specimen Anatomical Collection Method Collection Time Receive d Time (Source) Location / / Volume Laterality Blood 09/07/2021 12:09 09/07/2021 PM EDT 12:09 PM EDT Negro Watters MD POINT OF CARE TEST ORDERABLE S Performing Organization Address City/State/ZIP Code Phon e Number [address] POCT Glucose (09/06/2021 8:12 PM EDT) athologist Signature POC Glucose 174 65 - 199 [place] NAVEEN mg/dL [facility] Comment: Supplemental ranges: <140 mg/dL before meals <180 mg/dL all other times of the day Specimen Anatomical Collection Method Collection Time Receive d Time (Source) Location / / Volume Laterality Blood 09/06/2021 8:12 PM 2 8:12 EDT PM EDT Negro Watters MD POINT OF CARE TEST ORDERABLE S Performing Organization Address City/State/ZIP Code Phon e Number [address] POCT Glucose (09/06/2021 4:46 PM EDT) athologist Signature POC Glucose 123 65 - 199 [facility] mg/dL [facility] Comment: Supplemental ranges: <140 mg/dL before meals <180 mg/dL all other times of the day Specimen Anatomical Collection Method Collection Time Receive d Time (Source) Location / / Volume Laterality Blood 09/06/2021 4:46 PM 2 4:46 EDT PM EDT Negro Watters MD POINT OF CARE TEST ORDERABLE S Performing Organization Address City/State/[place] [address] (ABNORMAL) POCT Glucose (09/06/2021 11:28 AM EDT) athologist Signature POC Glucose 202 (H) 65 - 199 [place] NAVEEN mg/dL [facility] Comment: Supplemental ranges: <140 mg/dL before meals <180 mg/dL all other times of the day Specimen Anatomical Collection Method Collection Time Receive d Time (Source) Location / / Volume Laterality Blood 09/06/2021 11:28 09/06/2021 AM EDT 11:28 AM EDT Negro Watters MD POINT OF CARE TEST ORDERABLE S Performing Organization Address City/State/[place] [address] Phosphorus (09/06/2021 9:09 AM EDT) athologist Signature Phosphorus 4.0 2.5 - 4.5 [facility] Specimen Anatomical Collection Method Collection Time Receive d Time (Source) Location / / Volume Laterality Blood 09/06/2021 9:09 AM 2 9:22 EDT AM EDT Resulting Agency Comment Spec In Lab Negro Watters MD CHEMISTRY ORDERABLES Performing Organization Address City/[facility]/ZIP Code Phon e Number [address] Magnesium (09/06/2021 9:09 AM EDT) athologist Signature Magnesium 0.73 0.69 - 1.07 [facility]L [facility] Specimen Anatomical Collection Method Collection Time Receive d Time (Source) Location / / Volume Laterality Blood 09/06/2021 9:09 AM 2 9:22 EDT AM EDT Resulting Agency Comment Spec In Lab Negro Watters MD CHEMISTRY ORDERABLES Performing Organization Address City/State/ZIP Code Phon e Number [address] (ABNORMAL) Basic Metabolic Panel (non-fasting) (09/06/2021 9:09 AM EDT) athologist Signature Glucose Lvl 118 65 - 199 [facility] mg/dL [facility] Comment: Diabetes: >=200 mg/dL plus symp toms BUN 23 (H) 8 - 18 mg/dL [facility] Creatinine 0.59 (L) 0.70 - 1.20 mg/dL [facility] Sodium 141 135 - 145 mmol/L [facility] Potassium 4.0 3.5 - 5.0 mmol/L [facility] Comment: Please note: ??Patients with WBC >100,00 0 may have falsely elevated Potassium levels. ??For accurate Potassium quantif ication in these patients send serum separator tube (gold top) for subsequent determinations. ??Contact the Clinical Chemistry Laboratory if there are any qu estions. Chloride 104 98 - 107 mmol/L [facility] CO2 27 22 - 31 mmol/L [facility] Anion Gap 10 5 - 15 mmol/L [facility] Calcium 9.3 8.5 - 10.5 mg/dL [facility] Estimated GFR 104 >=60 mL/min/1.73 m?? [facility] Comment: This patient's estimated GFR [...] Organization Address City/State/ZIP Code Phon e Number [address] POCT Glucose (09/06/2021 7:37 AM EDT) P athologist Signature POC Glucose 124 65 - 199 [facility] mg/dL [facility] Comment: Supplemental ranges: <140 mg/dL before meals <180 mg/dL all other times of the day Specimen Anatomical Collection Method Collection Time Receive d Time (Source) Location / / Volume Laterality Blood 09/06/2021 7:37 AM 2 7:37 EDT AM EDT Negro Watters MD POINT OF CARE TEST ORDERABLE S Performing Organization Address City/State/[place] [address] (ABNORMAL) Phosphorus (09/06/2021 4:33 AM EDT) athologist Signature Phosphorus 4.6 (H) 2.5 - 4.5 [facility] Comment: result rechecked-sf Specimen Anatomical Collection Method Collection Time Receive d Time (Source) Location / / Volume Laterality Blood 09/06/2021 4:33 AM 2 4:38 EDT AM EDT Resulting Agency Comment Spec In Lab Negro Watters MD CHEMISTRY ORDERABLES Performing Organization Address City/State/ZIP Code Phon e Number [address] Magnesium (09/06/2021 4:33 AM EDT) athologist Signature Magnesium 0.76 0.69 - 1.07 [facility] mmol/L [facility] Specimen Anatomical Collection Method Collection Time Receive d Time (Source) Location / / Volume Laterality Blood 09/06/2021 4:33 AM 2 4:38 EDT AM EDT Resulting Agency Comment Spec In Lab Negro Watters MD CHEMISTRY ORDERABLES Performing Organization Address City/State/ZIP Code Phon e Number [address] (ABNORMAL) Basic Metabolic Panel (non-fasting) (09/06/2021 4:33 AM EDT) athologist Signature Glucose Lvl 114 65 - 199 [facility] mg/dL [facility] Comment: Diabetes: >=200 mg/dL plus symp toms BUN 24 (H) 8 - 18 mg/dL [facility] Comment: result rechecked-sf Creatinine 0.62 (L) 0.70 - 1.20 mg/dL [facility] Sodium 140 135 - 145 mmol/L [facility] Potassium 3.7 3.5 - 5.0 mmol/L [facility] Comment: Please note: ??Patients with WBC >100,00 0 may have falsely elevated Potassium levels. ??For accurate Potassium quantif ication in these patients send serum separator tube (gold top) for subsequent determinations. ??Contact the Clinical Chemistry Laboratory if there are any qu estions. Chloride 104 98 - 107 mmol/L [facility] CO2 25 22 - 31 mmol/L [facility] Anion Gap 11 5 - 15 mmol/L [facility] Calcium 9.5 8.5 - 10.5 mg/dL [facility] Comment: result rechecked-sf Estimated GFR 103 >=60 mL/min/1.73 m?? [facility] Comment: This patient's estimated GFR [...] Location / / Volume Laterality Blood 09/06/2021 4:33 AM 2 4:38 EDT AM EDT Resulting Agency Comment Spec In Lab Negro Watters MD CHEMISTRY ORDERABLES Performing Organization Address City/State/[place] [address] POCT Glucose (09/05/2021 8:03 PM EDT) P athologist Signature POC Glucose 138 65 - 199 [facility] mg/dL [facility] Comment: Supplemental ranges: <140 mg/dL before meals <180 mg/dL all other times of the day Specimen Anatomical Collection Method Collection Time Receive d Time (Source) Location / / Volume Laterality Blood 09/05/2021 8:03 PM 2 8:03 EDT PM EDT Negro Watters MD POINT OF CARE TEST ORDERABLE S Performing Organization Address City/State/[place] [address] POCT Glucose (09/05/2021 4:38 PM EDT) athologist Signature POC Glucose 122 65 - 199 [facility] mg/dL [facility] Comment: Supplemental ranges: <140 mg/dL before meals <180 mg/dL all other times of the day Specimen Anatomical Collection Method Collection Time Receive d Time (Source) Location / / Volume Laterality Blood 09/05/2021 4:38 PM 2 4:38 EDT PM EDT Negro Watters MD POINT OF CARE TEST ORDERABLE S Performing Organization Address City/State/[place] [address] POCT Glucose (09/05/2021 11:30 AM EDT) athologist Signature POC Glucose 137 65 - 199 [facility] mg/dL [facility] Comment: Supplemental ranges: <140 mg/dL before meals <180 mg/dL all other times of the day Specimen Anatomical Collection Method Collection Time Receive d Time (Source) Location / / Volume Laterality Blood 09/05/2021 11:30 09/05/2021 AM EDT 11:30 AM EDT Negro Watters MD POINT OF CARE TEST ORDERABLE S Performing Organization Address City/State/[place] [address] POCT Glucose (09/05/2021 7:15 AM EDT) athologist Signature POC Glucose 188 65 - 199 [facility] mg/dL [facility] Comment: Supplemental ranges: <140 mg/dL before meals <180 mg/dL all other times of the day Specimen Anatomical Collection Method Collection Time Receive d Time (Source) Location / / Volume Laterality Blood 09/05/2021 7:15 AM 7:15 EDT AM EDT Negro Watters MD POINT OF CARE TEST ORDERABLE S Performing Organization Address City/State/[place] [address] (ABNORMAL) POCT Glucose (09/04/2021 8:19 PM EDT) athologist Signature POC Glucose 220 (H) 65 - 199 [facility] mg/dL [facility] Comment: Supplemental ranges: <140 mg/dL before meals <180 mg/dL all other times of the day Specimen Anatomical Collection Method Collection Time Receive d Time (Source) Location / / Volume Laterality Blood 09/04/2021 8:19 PM 2 8:19 EDT PM EDT Negro Watters MD POINT OF CARE TEST ORDERABLE S Performing Organization Address City/State/[place] [address] (ABNORMAL) POCT Glucose (09/04/2021 4:19 PM EDT) athologist Signature POC Glucose 225 (H) 65 - 199 [facility] Comment: Supplemental ranges: <140 mg/dL before meals <180 mg/dL all other times of the day Specimen Anatomical Collection Method Collection Time Receive d Time (Source) Location / / Volume Laterality Blood 09/04/2021 4:19 PM 2 4:19 EDT PM EDT Negro Watters MD POINT OF CARE TEST ORDERABLE S Performing Organization Address City/State/[place] [address] POCT Glucose (09/04/2021 11:30 AM EDT) athologist Signature POC Glucose 114 65 - 199 [facility] mg/dL [facility] Comment: Supplemental ranges: <140 mg/dL before meals <180 mg/dL all other times of the day Specimen Anatomical Collection Method Collection Time Receive d Time (Source) Location / / Volume Laterality Blood 09/04/2021 11:30 09/04/2021 AM EDT 11:30 AM EDT Negro Wattesr MD POINT OF CARE TEST ORDERABLE S Performing Organization Address City/State/[place] [address] POCT Glucose (09/04/2021 7:40 AM EDT) athologist Signature POC Glucose 125 65 - 199 [facility] mg/dL [facility] Comment: Supplemental ranges: <140 mg/dL before meals <180 mg/dL all other times of the day Specimen Anatomical Collection Method Collection Time Receive d Time (Source) Location / / Volume Laterality Blood 09/04/2021 7:40 AM 2 7:40 EDT AM EDT Negro Watters MD POINT OF CARE TEST ORDERABLE S Performing Organization Address City/State/[place] [address] POCT Glucose (09/03/2021 8:36 PM EDT) athologist Signature POC Glucose 106 65 - 199 [facility] mg/dL [facility] Comment: Supplemental ranges: <140 mg/dL before meals <180 mg/dL all other times of the day Specimen Anatomical Collection Method Collection Time Receive d Time (Source) Location / / Volume Laterality Blood 09/03/2021 8:36 PM 2 8:36 EDT PM EDT Negro Watters MD POINT OF CARE TEST ORDERABLE S Performing Organization Address City/State/[place] [address] POCT Glucose (09/03/2021 4:35 PM EDT) athologist Signature POC Glucose 135 65 - 199 [facility] mg/dL [facility] Comment: Supplemental ranges: <140 mg/dL before meals <180 mg/dL all other times of the day Specimen Anatomical Collection Method Collection Time Receive d Time (Source) Location / / Volume Laterality Blood 09/03/2021 4:35 PM 2 4:35 EDT PM EDT Negro Watters MD POINT OF CARE TEST ORDERABLE S Performing Organization Address City/State/[place] [address] (ABNORMAL) Differential, Automated (09/03/2021 3:29 PM EDT) [facility] gist Method Time Signature Neutrophils % 51.7 % [facility] Neutr Abs (ANC) 4.57 1.70 - [facility] 6.10 [facility] x10(3)/[facility] LABORATORY Lymphocytes % 31.6 % [facility] Lymphocytes Abs 2.8 0.9 - 3.2 [facility] x10(3)/[facility] LABORATORY Monocytes % 7.7 % [facility] Monocyte Abs 0.7 0.3 - 0.9 [facility] x10(3)/[facility] LABORATORY Eosinophils % 7.8 % [facility] Eosinophils Abs 0.7 (H) 0.0 - 0.4 [facility] x10(3)/[facility] LABORATORY Basophils % 0.9 % [facility] Basophils Abs 0.1 0.0 - 0.1 [facility] x10(3)/[facility] LABORATORY Immature Gran % 0.30 % [facility] Comment: Immature granulocytes(IG's)percentage an d absolute count will include metamyelocytes, myelocytes, and promyelo cytes. Blood smears from CBCs yielding IG's will be scanned manually for concor dance. If this scan disagrees with the automated IG or if promyelocytes are not ed, a manual differential will be performed. [place] Gran Abs 0.03 0.00 - 0.04 x10(3)/[facility] Specimen Anatomical Collection Method Collection Time Receive d Time (Source) Location / / Volume Laterality Blood 09/03/2021 3:29 PM 4:08 EDT PM EDT Resulting Agency Comment Spec In Lab Rosmery Moreno MD HEMATOLOGY ORDERABLES Performing Organization Address City/State/[place] [address] (ABNORMAL) Hemogram (09/03/2021 3:29 PM EDT) Analysis Performed At [facility] logist Time Signature WBC 8.8 4.0 - 9.5 [facility] x10(3)/[facility] LABORATORY RBC 4.05 4.00 - [facility] 5.21 [facility] x10(6)/[facility]OR[facility]ORY Hemoglobin 12.1 11.7 - [facility] 15.5 g/dL [facility] Hematocrit 37.9 35.7 - [facility] 45.8 % [facility] MCV 93.6 82.6 - [facility] 94.4 [facility] LABORATORY MCH 29.9 27.1 - [facility] 32.0 pg [facility] MCHC 31.9 31.7 - [facility] 35.0 g/dL [facility] Platelets 296 145 - 357 [facility] x10(3)/[facility] LABORATORY RDWSD 48.1 (H) 37.0 - [facility] 46.0 [facility] LABORATORY RDWCV 14.1 11.5 - [facility] 14.1 % [facility] MPV 9.8 7.6 - 12.9 [facility] LABORATORY nRBC % Auto 0.0 % [facility] nRBC Abs Auto 0.000 0.000 - [facility] 0.000 [facility] x10(3)/[facility] LABORATORY Specimen Anatomical Collection Method Collection Time Receive d Time (Source) Location / / Volume Laterality Blood 09/03/2021 3:29 PM 2 4:08 EDT PM EDT Resulting Agency Comment Spec In Lab Rosmery Moreno MD HEMATOLOGY ORDERABLES Performing Organization Address City/State/[place] [address] (ABNORMAL) Phosphorus (09/03/2021 3:29 PM EDT) P athologist Signature Phosphorus 2.0 (L) 2.5 - 4.5 [facility] mg/dL [facility] Specimen Anatomical Collection Method Collection Time Receive d Time (Source) Location / / Volume Laterality Blood 09/03/2021 3:29 PM 2 4:08 EDT PM EDT Resulting Agency Comment Spec In Lab Jerod Frost MD CHEMISTRY ORDERABLES Performing Organization Address City/State/[place] [address] Magnesium (09/03/2021 3:29 PM EDT) athologist Signature Magnesium 0.88 0.69 - 1.07 [facility] mmol/L [facility] Specimen Anatomical Collection Method Collection Time Receive d Time (Source) Location / / Volume Laterality Blood 09/03/2021 3:29 PM 2 4:08 EDT PM EDT Resulting Agency Comment Spec In Lab Jerod Frost MD CHEMISTRY ORDERABLES Performing Organization Address City/State/ZIP Code Phon e Number [address] (ABNORMAL) Basic Metabolic Panel (non-fasting) (09/03/2021 3:29 PM EDT) athologist Signature Glucose Lvl 162 65 - 199 [facility] mg/dL [facility] Comment: Diabetes: >=200 mg/dL plus symp toms BUN 11 8 - 18 mg/dL [facility] Creatinine 0.55 (L) 0.70 - 1.20 mg/dL [facility] Sodium 139 135 - 145 mmol/L [facility] Potassium 3.5 3.5 - 5.0 mmol/L [facility] Comment: Please note: ??Patients with WBC >100,00 0 may have falsely elevated Potassium levels. ??For accurate Potassium quantif ication in these patients send serum separator tube (gold top) for subsequent determinations. ??Contact the Clinical Chemistry Laboratory if there are any qu estions. Chloride 104 98 - 107 mmol/L [facility] CO2 24 22 - 31 mmol/L [facility] Anion Gap 11 5 - 15 mmol/L [facility] Calcium 8.4 (L) 8.5 - 10.5 mg/dL [facility] Estimated GFR 106 >=60 mL/min/1.73 m?? [facility] Comment: This patient's estimated GFR [...] Comment Spec In Lab Jerod Frost MD CHEMISTRY ORDERABLES Performing Organization Address City/[facility]/ZIP Code Phon e Number [address] POCT Glucose (09/03/2021 12:29 PM EDT) P athologist Signature POC Glucose 128 65 - 199 [facility] mg/dL [facility] Comment: Supplemental ranges: <140 mg/dL before meals <180 mg/dL all other times of the day Specimen Anatomical Collection Method Collection Time Receive d Time (Source) Location / / Volume Laterality Blood 09/03/2021 12:29 09/03/2021 PM EDT 12:29 PM EDT Jerod Frost MD POINT OF CARE TEST ORDERABLE S Performing Organization Address City/[facility]/[place] [address] POCT Glucose (09/03/2021 7:36 AM EDT) P athologist Signature POC Glucose 129 65 - 199 [facility] mg/dL [facility] Comment: Supplemental ranges: <140 mg/dL before meals <180 mg/dL all other times of the day Specimen Anatomical Collection Method Collection Time Receive d Time (Source) Location / / Volume Laterality Blood 09/03/2021 7:36 AM 2 7:36 EDT AM EDT Jerod Frost MD POINT OF CARE TEST ORDERABLE S Performing Organization Address City/[facility]/[place] [address] (ABNORMAL) Basic Metabolic Panel (non-fasting) (09/03/2021 1:24 AM EDT) athologist Signature Glucose Lvl 150 65 - 199 [facility] mg/dL [facility] Comment: Diabetes: >=200 mg/dL plus symp toms BUN 15 8 - 18 mg/dL [facility] Creatinine 0.58 (L) 0.70 - 1.20 mg/dL [facility] Sodium 139 135 - 145 mmol/L [facility] Potassium 2.9 (Critical) 3.5 - 5.0 mmol/L [facility] Comment: Called by: ray, Read back by: glenn barry, Date/Time:09/03/21 02:07. Please note: ??Patients with WBC >100,00 0 may have falsely elevated Potassium levels. ??For accurate Potassium quantif ication in these patients send serum separator tube (gold top) for subsequent determinations. ??Contact the Clinical Chemistry Laboratory if there are any qu estions. Chloride 100 98 - 107 mmol/L [facility] CO2 29 22 - 31 mmol/L [facility] Anion Gap 10 5 - 15 mmol/L [facility] Calcium 8.7 8.5 - 10.5 mg/dL [facility] Estimated GFR 104 >=60 mL/min/1.73 m?? [facility] Comment: This patient's estimated GFR [...] Location / / Volume Laterality Blood 09/03/2021 1:24 AM 2 1:32 EDT AM EDT Resulting Agency Comment Spec In Lab Jerod Frost MD CHEMISTRY ORDERABLES Performing Organization Address City/State/[place] [address] (ABNORMAL) Urinalysis Microscopic Exam (09/02/2021 10:30 PM EDT) P athologist Signature RBC UA 5 (H) 0 - 4 /HPF [facility] WBC UA 9 (H) 0 - 5 /HPF [facility] Squam Epith UA 3 <=4 /HPF [facility] Hyaline Cast 7 (H) 0 - 2 /LPF [facility] Specimen Anatomical Collection Method Collection Time Receive d Time (Source) Location / / Volume Laterality Clean Catch 09/02/2021 10:30 09/02/2021 Urine PM EDT 11:00 PM EDT Resulting Agency Comment Spec In Lab Charly Agrawal MD URINE ORDERABLES Performing Organization Address City/State/[place] [address] (ABNORMAL) Urinalysis with reflex Culture (09/02/2021 10:30 PM EDT) Patholo gist Method Time Signature Glucose UA Negative Negative [facility] Protein UA Trace (A) Negative [facility] Bilirubin UA Negative Negative [facility] Comment: Clinical correlation required for positi ve Urine Bilirubin results as false positive may occur with some drugs and d rug related products. If a false positive is suspected a serum total bili herring should be considered if clinically indicated. Urobilinogen UA Normal Normal mg/dL [facility] pH UA 6.0 5.0 - 8.[address] [facility] Blood UA Negative Negative mg/dL [facility] Ketones UA Negative Negative mg/dL [facility] Nitrite UA Negative Negative [facility] Leukocytes UA Trace (A) Negative [facility] LABORATORY Appearance UA Clear Clear [facility] Spec [place] UA >=1.030 (A) 1.005 - 1.030 [facility] Color UA Yellow Yellow [facility] Culture Reflexed No [facility] Specimen Anatomical Collection Method Collection Time Receive d Time (Source) Location / / Volume Laterality Clean Catch 09/02/2021 10:30 09/02/2021 Urine PM EDT 11:00 PM EDT Resulting Agency Comment Spec In Lab Jerod Frost MD URINE ORDERABLES Performing Organization Address City/[facility]/ZIP Code Phon e Number [address] POCT Glucose (09/02/2021 10:10 PM EDT) P athologist Signature POC Glucose 163 65 - 199 [facility] mg/dL [facility] Comment: Supplemental ranges: <140 mg/dL before meals <180 mg/dL all other times of the day Specimen Anatomical Collection Method Collection Time Receive d Time (Source) Location / / Volume Laterality Blood 09/02/2021 10:10 09/02/2021 PM EDT 10:10 PM EDT Jerod Frost MD POINT OF CARE TEST ORDERABLE S Performing Organization Address City/State/[place] [address] COVID-19 PCR (09/02/2021 9:31 PM EDT) [facility] Method Time Signature SARS-CoV-2 Not Detected Not Detected [facility] RNA PCR [facility] Comment: This result should be interpreted in com bination with the clinical observations, patient history and epidem iological information. For testing of asymptomatic individuals, assay performa nce characteristics and clinical utility have not been evaluated. Testing for SARS-CoV-2 (Severe acute respiratory syndrome coronavirus 2, form erly known as 2019 novel coronavirus or 2019-nCoV) to aid in the diagnosis of CO VID-19 is performed using the Simplexa COVID-19 Direct Assay by [employer] as authorized by the FDA issued Emergency Use Authorization (EUA). This assay is intended for In-vitro Diagnostic (IVD) use with nasopharyngeal swabs collected from individuals meeting the CDC criteria for testing. assay is performed based on the instructions for use and additional guid ance provided by the FDA. Testing is performed in the Microbiology Laboratory within the Department of Pathology and Laboratory Medicine at [facility], certified under the Clinical [...] clinical management guidance information are available at e CDC Coronavirus Disease 2019 (COVID-19) webpage under Information fo r Healthcare Professionals (https://www.cdc.gov/coronavirus/2019-nc ov/hcp/index.html). Additional information about this and ot her EUA tests can be found in provider and patient fact sheets at the following FDA website: https://www.fda.gov/medical-devices/addktbjodfc-ffaglmo-0757-cqozo-36-fvqhjqhcz- wat-ybqhjfedgjtfuk-dfrffce-devices/sovib-psucisduirh-zbhg SARS-CoV-2 Source [employer] Swab [facility] Specimen (Source) Anatomical Collection Method Collection Time Re ceived Time Location / / Volume Laterality Nasopharyngeal Swab 09/02/2021 9:31 09/02 PM EDT 10:05 PM EDT Comment: Symptoms->Surveillance Resulting Agency Comment Spec In Lab Ten Delong MD MICROBIOLOGY - GENERAL ORDER ARLEY Performing Organization Address City/[facility]/ZIP Code Phon [place] [address] Blood culture (09/02/2021 7:30 PM EDT) [facility] gist Method Time Signature Blood Culture No growth [facility]LL[facility] HODGE at 5 days. [facility] Specimen Anatomical Collection Method Collection Time Receive d Time (Source) Location / / Volume Laterality Blood 09/02/2021 7:30 PM 8:05 EDT PM EDT Comment: Right AC Resulting Agency Comment Spec In Lab Shira Mcclelland MD MICROBIOLOGY - BLOOD ORDERAB LES Performing Organization Address City/[facility]/ZIP Code Phon [place] [address] Abdomen & Pelvis w [...] who have questions please contact the health nursing care partner that requested your imaging first. ? Narrative [...] ho have questions please contact the health nursing care partner that requested your imaging first. Shira Mcclelland MD IMG CT ORDERABLES Blood culture (09/02/2021 5:08 PM EDT) [facility] gist Method Time Signature Blood Culture No growth NELLA NAVEEN at 5 days. [facility] Specimen Anatomical Collection Method Collection Time Receive d Time (Source) Location / / Volume Laterality Blood 09/02/2021 5:08 PM 2 5:23 EDT PM EDT Comment: l ac Resulting Agency Comment Spec In Lab Shira Mcclelland MD MICROBIOLOGY - BLOOD ORDERAB LES Performing Organization Address City/[facility]/[place] [address] Phosphorus (09/02/2021 5:07 PM EDT) athologist Signature Phosphorus 2.9 2.5 - 4.5 NELLA SHANNONCOCK mg/dL [facility] Specimen Anatomical Collection Method Collection Time Receive d Time (Source) Location / / Volume Laterality Blood Venous Draw / 09/02/2021 5:07 PM 09/03/19 22 5:29 Unknown EDT PM EDT Resulting Agency Comment Spec In Lab Charly Agrawal MD CHEMISTRY ORDERABLES Performing Organization Address City/[facility]/[place] [address] (ABNORMAL) Magnesium (09/02/2021 5:07 PM EDT) athologist Signature Magnesium 0.65 (L) 0.69 - 1.07 [facility] mmol/L [facility] Specimen Anatomical Collection Method Collection Time Receive d Time (Source) Location / / Volume Laterality Blood Venous Draw / 09/02/2021 5:07 PM 09/03/19 22 5:29 Unknown EDT PM EDT Resulting Agency Comment Spec In Lab Charly Agrawal MD CHEMISTRY ORDERABLES Performing Organization Address City/[facility]/[place] [address] Scan, Peripheral Blood (09/02/2021 5:07 PM EDT) [facility] Method Time Signature Plat Estimate Increased [facility] RBC Morphology Normal [facility] Specimen Anatomical Collection Method Collection Time Receive d Time (Source) Location / / Volume Laterality Blood 09/02/2021 5:07 PM 2 5:23 EDT PM EDT Resulting Agency Comment Spec In Lab Demetrius ROMAN HEMATOLOGY ORDERABLES Performing Organization Address City/State/[place] [address] (ABNORMAL) Differential, Automated (09/02/2021 5:07 PM EDT) [facility] Method Time Signature Neutrophils % 63.0 % [facility] Neutr Abs (ANC) 10.53 (H) 1.70 - [facility] 6.10 [facility] x10(3)/[facility] LABORATORY Lymphocytes % 24.8 % [facility] Lymphocytes Abs 4.2 (H) 0.9 - 3.2 [facility] x10(3)/[facility] LABORATORY Monocytes % 7.0 % [facility] Monocyte Abs 1.2 (H) 0.3 - 0.9 [facility] x10(3)/[facility] LABORATORY Eosinophils % 3.9 % [facility] Eosinophils Abs 0.7 (H) 0.0 - 0.4 [facility] x10(3)/[facility] LABORATORY Basophils % 0.7 % [facility] Basophils Abs 0.1 0.0 - 0.1 [facility] x10(3)/[facility] LABORATORY Immature Gran % 0.60 % [facility] Comment: Immature granulocytes(IG's)percentage an d absolute count will include metamyelocytes, myelocytes, and promyelo cytes. Blood smears from CBCs yielding IG's will be scanned manually for concor dance. If this scan disagrees with the automated IG or if promyelocytes are not ed, a manual differential will be performed. Shantell Gran Abs 0.10 (H) 0.00 - 0.04 x10(3)/[facility] LABORATORY Specimen Anatomical Collection Method Collection Time Receive d Time (Source) Location / / Volume Laterality Blood 09/02/2021 5:07 PM 5:23 EDT PM EDT Resulting Agency Comment Spec In Lab Demetrius ROMAN HEMATOLOGY ORDERABLES Performing Organization Address City/State/[place] [address] (ABNORMAL) Hemogram (09/02/2021 5:07 PM EDT) Analysis Performed At Patho logist Time Signature WBC 16.8 (H) 4.0 - 9.5 [facility] x10(3)/[facility] LABORATORY RBC 4.64 4.00 - [facility] x10(6)/[facility] LABORATORY Hemoglobin 14.1 11.7 - [facility] 15.[facility] g/dL [facility] Hematocrit 41.7 35.7 - [facility] 45.[facility] % [facility] MCV 89.9 82.6 - [facility] 94.4 [facility] LABORATORY MCH 30.4 27.1 - [facility] 32.0 pg [facility] MCHC 33.8 31.7 - [facility] 35.0 g/dL [facility] Platelets 387 (H) 145 - 357 [facility] x10(3)/[facility] LABORATORY RDWSD 46.0 37.0 - [facility] 46.0 [facility] LABORATORY RDWCV 14.0 11.5 - [facility] 14.1 % [facility] MPV 9.4 7.6 - 12.9 [facility] LABORATORY nRBC % Auto 0.0 % [facility] nRBC Abs Auto 0.000 0.000 - [facility] 0.000 [facility] x10(3)/[facility] LABORATORY Specimen Anatomical Collection Method Collection Time Receive d Time (Source) Location / / Volume Laterality Blood 09/02/2021 5:07 PM 2 5:23 EDT PM EDT Resulting Agency Comment Spec In Lab Demetrius ROMAN HEMATOLOGY ORDERABLES Performing Organization Address City/[facility]/ZIP Code Phon e Number [address] Lactate, whole blood, send to lab ([facility]) (09/02/2021 5:07 PM EDT) athologist Signature Lactate WB 2.1 0.5 - 2.2 [facility] mmol/L [facility] Specimen Anatomical Collection Method Collection Time Receive d Time (Source) Location / / Volume Laterality Blood 09/02/2021 5:07 PM 2 5:22 EDT PM EDT Resulting Agency Comment Spec In Lab Shira Mcclelland MD CHEMISTRY ORDERABLES Performing Organization Address City/State/ZIP Code Phon e Number [address] (ABNORMAL) Basic Metabolic Panel (non-fasting) (09/02/2021 5:07 PM EDT) P athologist Signature Glucose Lvl 132 65 - 199 [facility] mg/dL [facility] Comment: Diabetes: >=200 mg/dL plus symp toms BUN 16 8 - 18 mg/dL [facility] Creatinine 0.58 (L) 0.70 - 1.20 mg/dL [facility] Sodium 140 135 - 145 mmol/L [facility] Potassium 2.5 (Critical) 3.5 - 5.0 mmol/L [facility] Comment: Called by: TAMMY, Read back by: Bharti garner, Date/Time:09/02/21 18:11. Please note: ??Patients with WBC >100,00 0 may have falsely elevated Potassium levels. ??For accurate Potassium quantif ication in these patients send serum separator tube (gold top) for subsequent determinations. ??Contact the Clinical Chemistry Laboratory if there are any qu estions. Chloride 98 98 - 107 mmol/L [facility] CO2 24 22 - 31 mmol/L [facility] Anion Gap 18 (H) 5 - 15 mmol/L [facility] Calcium 9.5 8.5 - 10.5 mg/dL [facility] Estimated GFR 104 >=60 mL/min/1.73 m?? [facility] Comment: This patient's estimated GFR [...] Mcclelland MD CHEMISTRY ORDERABLES Performing Organization Address City/State/[place] [address] documented in this encounter Visit Diagnoses Not on filedocumented in this encounter Admitting Diagnoses Diagnosis Abscess of abdominal wall Cellulitis and abscess of trunk documented in this encounter Administered Medications Inactive Administered Medications - up to 3 most recent administrations Medication Order MAR Action Action Date Dose Rate Site acetaminophen (Tylenol) tablet Given 09/19/2021 11:03 AM EDT 1,0 00 mg 1,000 mg 1,000 mg, Oral, EVERY 6 HOURS SCHEDULED, First dose (after last modification) on Thu09/03/21 at 1800, Until Discontinued, Should be used concomitantly if other analgesics are ordered. Maximum dose of acetaminophen is 4000 mg from all sources in 24 hours., Routine Given 09/19/2021 5:44 AM EDT 1,000 mg Given 09/18/2021 11:29 PM EDT 1,000 mg atorvastatin (Lipitor) tablet 20 mg Given 09/18/2021 5:47 PM EDT 20 mg 20 mg, Oral, EVERY EVENING, First dose on Thu09/02/21 at 2245, Until Discontinued, Routine Given 09/17/2021 5:14 PM EDT 20 mg Given 09/16/2021 5:05 PM EDT 20 mg BUpivacaine (pf) (Marcaine) Given 09/13/2021 8:45 PM EDT 30 mLs 19- Surgical Site (2.5 mg/mL) 0.25% injection ONCE PRN, Starting on Thu09/13/21 at 2045, Until Thu09/19/21 at 1439, Intra-Operative (Intra-Procedure), Routine clopidogreL (Plavix) tablet 75 mg Given 09/19/2021 9:09 AM EDT 75 mg 75 mg, Oral, DAILY, First dose on Thu09/03/21 at 0900, Until Discontinued, Routine Given 09/18/2021 8:39 AM EDT 75 mg Given 09/17/2021 9:33 AM EDT 75 mg dextrose 10% infusion 250 mL, at 1,000 mL/hr, Intravenous, IRIS RY 30 MIN PRN, Starting on Thu09/02/21 at 2146, Until Thu09/19/21 at 1439, For B G 50-70 mg/dL: Oral treatment preferred: If able to drink, give 120 mL Juice or Regu lar (not diet) soda OR If NPO, give 15 gram glucose 40% oral gel massaged into buccal mucosa OR if unconscious or uncooperative, give 25 gram (250 mL) Dex trose 10% IV over 15 minutes per protocol OR, if no IV access, 1 mg Glucagon IM. * * For BG less than 50 mg/dL: Oral treatment preferred: If able to drink, give 240 mL Juice or Regu lar (not diet) soda OR If NPO, give 30 gram glucose 40% oral gel m assaged in buccal mucosa OR if unconscious or uncooperative, give 25 gram (250 mL) Dextrose 10% I V over 15 minutes per protocol OR, if no IV access, 1 mg Glucagon IM. Rech darnell BG in 30 minutes. May repeat juice/soda, gel, dextrose or gluc agon once per episode. For persistent hypoglycemia, consider longer-acting treatment for the duration of the active insulin. doxycycline monohydrate (Monodox) capsule 100 Given 9:09 AM EDT 100 mg mg 100 mg, Oral, 2 TIMES DAILY, First dose on Thu09/02/21 at 2100, Until Discontinued, Routine Given 09/18/2021 8:38 PM EDT 100 mg Given 09/18/2021 8:39 AM EDT 100 mg enoxaparin (Lovenox) (40 mg/0.4 Given 09/18/2021 8:38 PM EDT 40 mg Abdominal Tissue mL) subcutaneous injection 40 mg 40 mg, Subcutaneous, NIGHTLY, First dose on Thu09/02/21 at 2245, Until Discontinued, Routine Given 09/17/2021 8:23 PM EDT 40 mg Abdom inal Tissue Given 09/16/2021 9:05 PM EDT 40 mg Abdom inal Tissue gabapentin (Neurontin) capsule 600 mg Given 09/19/2021 9:10 AM EDT 600 mg 600 mg, Oral, 3 TIMES DAILY, First dose (after last modification) on Thu09/17/21 at 2100, Until Discontinued, Routine Given 09/18/2021 8:38 PM EDT 600 mg Given 09/18/2021 2:57 PM EDT 600 mg glucagon (Glucagen) (1 mg/mL) injection solution 1 mg 1 mg, Intramuscular, EVERY 30 MIN PRN, S tarting on Thu09/02/21 at 2146, Until Kiara 09/19/21 at 1439, Low blood sugar, For BG 50-70 mg/dL: Oral treatment preferred: If able to drink, give 120 mL Juice or R egular (not diet) soda OR If NPO, give 15 gram glucose 40% oral gel massaged into buccal mucosa OR if unconscious or uncooperative, give 25 gram (250 mL) Dex trose 10% IV over 15 minutes per protocol OR, if no IV access, 1 mg Glucagon IM. * * For BG less than 50 mg/dL: Oral treatment preferred: If able to drink, give 240 mL Juice or Regu lar (not diet) soda OR If NPO, give 30 gram glucose 40% oral gel m assaged in buccal mucosa OR if unconscious or uncooperative, give 25 gram (250 mL) Dextrose 10% I V over 15 minutes per protocol OR, if no IV access, 1 mg Glucagon IM. Rech darnell BG in 30 minutes. May repeat juice/soda, gel, dextrose or gluc agon once per episode. For persistent hypoglycemia, consider longer-acting treatment for the duration of the active insulin., Routine glucose (Glutose) 40% oral geL 15-30 g of glucose, Buccal, EVERY 30 MIN PRN, Starting on Thu09/02/21 at 2146, Until Kiara 09/19/21 at 1439, Low blood suga r, For BG 50-70 mg/dL: Oral treatment preferred: If able to drink, give 120 mL Juice or Regu lar (not diet) soda OR If NPO, give 15 gram glucose 40% oral gel massaged into b uccal mucosa OR if unconscious or uncooperative, give 25 gr am (250 mL) Dextrose 10% IV over 15 minutes per protocol OR, if no IV access, 1 mg G lucagon IM. For BG less than 50 mg/dL: Oral treatment preferred: If able to dri nk, give 240 mL Juice or Regular (not diet) soda OR If NPO, give 30 gram glucose 40% oral gel massaged in buccal mucosa OR if unconscious or uncooperative, give 25 gr am (250 mL) Dextrose 10% IV over 15 minutes per protocol OR, if no IV access, 1 mg G lucagon IM. Recheck BG in 30 minutes. May repeat juice/soda, gel, dextrose or gluc agon once per episode. For persistent hypoglycemia, consider longer-acting treatment for the duration of the active insulin. 1 tube of Glutose-15 contains 1 5 grams of glucose (net weight of tube = 37.5 grams.), Routine hydroCHLOROthiazide (Hydrodiuril) tablet 25 mg Given 09/19/2021 9:10 AM EDT 25 mg 25 mg, Oral, DAILY, First dose on Thu09/06/21 at 1145, Until Discontinued, Routine Given 09/18/2021 8:38 AM EDT 25 mg Given 09/17/2021 9:32 AM EDT 25 mg HYDROmorphone (Dilaudid) tablet 2 mg 2 mg, Oral, EVERY 4 HOURS PRN, Starting on Thu09/17/21 at 1732, Until Kiara 09/19/21 at 1439, Pain, for mild pain (1-3), May give an additiona l 2 mg once if pain not relieved in 30-60 minutes., Routine HYDROmorphone (Dilaudid) tablet 4 mg Given 09/19/2021 11:04 AM EDT 4 mg 4 mg, Oral, EVERY 4 HOURS PRN, Starting on Thu09/17/21 at 1732, Until Kiara 09/19/21 at 1439, Pain, for moderate pain (4-6), May give an additional 2 mg once if pain not relieved in 30-60 minutes., Routine Given 09/18/2021 8:38 PM EDT 4 mg Given 09/18/2021 2:57 PM EDT 4 mg HYDROmorphone (Dilaudid) tablet 6 mg 6 mg, Oral, EVERY 4 HOURS PRN, Starting on Thu09/17/21 at 1732, Until Kiara 09/19/21 at 1439, Pain, for severe pain (7-10), May give an additional 2 mg once if pain not relieved in 30-60 minutes., Routine ibuprofen (Motrin) tablet 400 mg Given 09/18/2021 3:04 PM EDT 400 mg 400 mg, Oral, EVERY 6 HOURS PRN, Starting on Thu09/02/21 at 2033, Until Kiara 09/19/21 at 1439, Pain, for MODERATE pain (4-6), Should be used concomitantly if other analgesics are ordered. Do not administer with ketorolac., Routine Given 09/17/2021 10:18 AM EDT 400 mg Given 09/16/2021 9:22 PM EDT 400 mg insulin lispro (HumaLOG;Admelog) (100 Given 09/19/2021 11:05 AM EDT 2 Units unit/mL) subcutaneous injection vial 1-6 Units 1-6 Units, Subcutaneous, 4 TIMES DAILY BEFORE MEALS & NIGHTLY, First dose on Thu09/02/21 at 2245, Until Discontinued, CORRECTION BOLUS [1-6 Units] Moderate Sliding Scale (BG in mg/dL): Correction factor 20 (1 unit of insulin is expected to drop the glucose 20 mg/dL) BG 140 - 160 Give 1 unit BG 161 - 180 Give 2 units BG 181 - 200 Give 3 units BG 201 - 220 Give 4 units BG 221 - 240 Give 5 units BG greater than 240, give 6 units and recheck BG in 2 hours. - If recheck BG is LESS than 240, give no insulin and resume schedule. - If recheck BG is GREATER than 240, give 6 units and repeat BG in 2 hours (no more than 3 times) & call for new insulin orders. DO NOT hold if NPO, unless specifically directed to do so by written order. Per Blood Glucose Monitoring Policy, re-check a BG of > 240 mg/dL in 2 hours., Routine Given 09/18/2021 8:44 PM EDT 3 Units Given 09/17/2021 8:58 PM EDT 1 Units Abdom inal Tissue lidocaine (Lidoderm) 5% Patch Applied 09/19/2021 11:03 AM 3 patches 13- Abdomen patch 3 patch EDT (Left) 3 patch, Transdermal, EVERY 24 HOURS, First dose on Thu09/03/21 at 1200, Until Discontinued, Apply patch(es) for 12 hours, and then remove for 12 hours., Routine Patch Applied 09/18/2021 12:43 PM EDT 3 patches 13- Abdomen (Left) Patch Applied 09/17/2021 11:26 AM EDT 3 patches 13- Abdomen (Left) lidocaine (Lidoderm) topical patch REMOV AL Transdermal, EVERY 24 HOURS, First dose on Thu09/03/21 at 2315, Until Discontinued, Remove lidocaine 5% patch metroNIDAZOLE (Flagyl) tablet 500 mg Given 09/19/2021 5:44 AM EDT 500 mg 500 mg, Oral, EVERY 8 HOURS SCHEDULED, First dose on Thu09/03/21 at 0500, Until Discontinued, Routine Given 09/18/2021 10:28 PM EDT 500 mg Given 09/18/2021 2:57 PM EDT 500 mg miconazole (Micotin) 2 % powder Given 09/16/2021 9:06 PM EDT Topical (Top), 2 TIMES DAILY, First dose on Thu09/06/21 at 2100, Until Discontinued Given 09/15/2021 8:02 PM EDT Given 09/14/2021 9:20 PM EDT ondansetron (pf) (Zofran) (2 mg/mL) inje ction 4-8 mg 4-8 mg, Intravenous, EVERY 8 HOURS PRN, Starting on Thu09/02/21 at 2032, Until Kiara 09/19/21 at 1439, Nausea, Start with 4mg a nd if ineffective in 30 minutes, give an additional 4mg If multiple antiemetic s are ordered, give ondansetron first. ondansetron (Zofran) tablet 4-8 mg 4-8 mg, Oral, EVERY 8 HOURS PRN, Startin g on Thu09/02/21 at 2032, Until Kiara 09/19/21 at 1439, Nausea, Vomiting, If multiple antiemetics are ordered, use ondansetron first. PO Preferred. If patient unable to take PO, may give IV if ordered. Start with 4mg and if ineffective in 45 minutes, give an add itional 4mg. If unable to take PO, may give IV., Routine polyethylene glycoL (Miralax) packet 17 g 17 g, Oral, DAILY, First dose on 08/15 at 1145, Until Discontinued, Routine senna-docusate (Pericolace) 8.6-50 mg per Given 2021 8:35 AM EDT 2 tablets tablet 2 tablet 2 tablet, Oral, 2 TIMES DAILY PRN, Starting on Thu09/02/21 at 2146, Until Kiara 09/19/21 at 1439, Constipation, Routine sodium chloride 0.9 % (flush) (BD PosiFlush Given 09/19/2021 9:0 0 AM EDT 5 mLs Normal Saline 0.9) flush 5 mL 5 mL, Intravenous, 2 TIMES DAILY, First dose on Thu09/02/21 at 2245, Until Discontinued, Recovery (Recovery-Hospital Unit), Routine Given 09/18/2021 8:47 PM EDT 5 mLs Given 09/18/2021 8:39 AM EDT 5 mLs documented in this encounter Active and Recently Administered Medications Times are shown in EDT. Scheduled Medication Order 09/17/2021 09/18/2021 09/19/2021 acetaminophen (Tylenol) tablet 1,000 mg 0528 (Given - Provider: Rachel Mendoza RN)1126 (Given - Provider: Christel Parker LPN)1713 (Given - Provider: Christel Parker LPN)2334 (Given - Provider: Rachel Mendoza RN) 0516 (Given - Provider: Rachel Mendoza RN)1243 (Given - Provider: Marah Urena RN)1747 (Given - Provider: Marah Urena RN)2329 (Given - Provider: Good Escobedo LPN) 0544 (Given - Provider: Good Escobedo LPN)1103 (Given - Provider: Dilip Dawson RN) 1,000 mg, Oral, EVERY 6 HOURS SCHEDULED, First dose (after last modification) on Thu09/03/21 at 1800, Until Discontinued, Should be used concomitantly if other analgesics are ordered. Maximum dose of ac etaminophen is 4000 mg from all sources in 24 hours., Routine atorvastatin (Lipitor) tablet 20 mg 171 (Given - Prov ider: Christel Parker LPN) 174 (Given - Provider: Marah Urena RN) 20 mg, Oral, EVERY EVENING, First dose o n Thu09/02/21 at 2245, Until Discontinued, Routine clopidogreL (Plavix) tablet 75 mg 0933 (Given - Provider: Latoya Walton RN) 0839 (Given - Provider: Gretchen Marshall RN) 0909 (Given - Provider: Christel Parker LPN) 75 mg, Oral, DAILY, First dose on Thu at 0900, Until Discontinued, Routine doxycycline monohydrate (Monodox) capsule 100 mg 0933 (Given - Provider: Lena Walton RN)2022 (Given - Provider: Rachel Mendoza RN) 0839 (Given - Provider: Gretchen Marshall RN)2037 (Given - Provider: Rachel Mendoza RN) 0909 (Given - Provider: Christel Parker LPN) 100 mg, Oral, 2 TIMES DAILY, First dose on Thu09/02/21 at 2100, Until Discontinued, Routine enoxaparin (Lovenox) (40 mg/0.4 mL) subcutaneous injec tion 40 mg 2022 (Given - Provider: Rachel Mendoza RN) 2037 (Given - Provider: Rachel Mendoza RN) 40 mg, Subcutaneous, NIGHTLY, First dose on Thu09/02/21 at 2245, Until Discontinued, Routine gabapentin (Neurontin) capsule 300 mg (CANCELED) 0933 (Given - Provider: Lena Walton RN)1543 (Given - Provider: Christel Parker LPN) 300 mg, Oral, 3 TIMES DAILY, First dose on Thu09/03/21 at 1500, Until Discontinued, Routine gabapentin (Neurontin) capsule 600 mg 2022 (Given - Pr ovider: Rachel Mendoza RN) 0838 (Given - Provider: Gretchen Marshall RN)1457 (Given - Provider: Gretchen Marshall RN)2037 (Given - Provider: Rachel Mendoza RN) 0910 (Given - Provider: Christel Parker LPN) 600 mg, Oral, 3 TIMES DAILY, First dose (after last modification) on Thu09/17/21 at 2100, Until Discontinued, Routine hydroCHLOROthiazide (Hydrodiuril) tablet 25 mg 0932 (G iven - Provider: Lena Walton RN) 0838 (Given - Provider: Gretchen Marshall RN) 0910 (Give n - Provider: Christel Parker LPN) 25 mg, Oral, DAILY, First dose on Thu at 1145, Until Discontinued, Routine HYDROmorphone (Dilaudid) tablet 2 mg (COMPLETED) 1038 (Given - Provider: Christel Parker LPN) 2 mg, Oral, ONCE, 1 dose, On Thu09/17/21 at 1130, Routine HYDROmorphone (Dilaudid) tablet 4 mg (COMPLETED) 1243 (Given - Provider: Marah Urena RN) 4 mg, Oral, ONCE, 1 dose, On Thu09/18/21 at 1330, VILLA, Routine insulin lispro (HumaLOG;Admelog) (100 un it/mL) subcutaneous injection vial 1-6 Units(Linked Group 1) 0730 (Not Given - Provider: Rachel Ellis RN - Reason: Order parameters not met)1126 (Given - Provider: Christel Parker LPN - Comment: BG 156)1544 (Given - Provider: Christel Parker LPN - Comment: BG 225) 0730 (Not Given - Provider: Gretchen Marshall RN - Reason: Order parameters not met)1130 (Not Given - Provider: Gretchen Marshall RN - Reason: Order parameters not met)1630 (Not Given - Provider: Marah Urena RN - Reason: Order parameters not met) 0730 (Not Given - Provider: Christel hunt LPN - Reason: Order parameters not met - Comment: BG 108)1105 (Given - Provider: Dilip Dawson RN - Comment: BG 175) 1-6 Units, Subcutaneous, 4 TIMES DAILY B EFORE MEALS & NIGHTLY, First dose on Thu09/02/21 at 2245, Until Discontinued, CORRECTION BOLUS [1-6 Units] Moderate Sliding Scale (BG in mg/dL): Correctio 2057 (Given - Provider: Rachel Mendoza RN) 2043 (Given - Provider: Rachel Mendoza RN) n factor 20 (1 unit of insulin is expect ed to drop the glucose 20 mg/dL) BG 140 - 160 Give 1 unit BG 161 - 180 Give 2 units BG 181 - 200 Give 3 units BG 201 - 220 Give 4 units BG 221 - 240 Give 5 units BG greater than 240, give 6 units and re check BG in 2 hours. - If recheck BG is LESS than 240, give no insulin and resume schedule. - If recheck BG is GREATER than 240, give 6 units and repeat BG in 2 h ours (no more than 3 times) & call for n ew insulin orders. DO NOT hold if NPO, unless specifically directed to do so by written order. Per Blood Glucose Monitoring Policy, re-check a BG of > 240 mg/dL in 2 hours., Routine lidocaine (Lidoderm) 5% patch 3 patch(Linked Group 2) 1126 (Patch Applied - Provider: Christel Parker LPN) 1243 (Patch Applied - Provider: Marah Urena, GENA) 1103 (Patch Applied - Provider: Dilip Dawson RN) 3 patch, Transdermal, EVERY 24 HOURS, Fi rst dose on Thu09/03/21 at 1200, Until Discontinued, Apply patch(es) for 12 hours, and then remove for 12 hours., Routine lidocaine (Lidoderm) topical patch REMOVAL(Linked Grou p 2) 2315 (Patch Removed - Provider: Rachel Mendoza RN) 2315 (Patch Removed - Provider: Rachel Mendoza RN) Transdermal, EVERY 24 HOURS, First dose on Thu09/03/21 at 2315, Until Discontinued, Remove lidocaine 5% patch metroNIDAZOLE (Flagyl) tablet 500 mg 0528 (Given - Pro vider: Rachel Mendoza RN)1542 (Given - Provider: Christel Parker LPN)2207 (Given - Provider: Rachel Mendoza RN) 0516 (Given - Provider: Rachel Mendoza RN)1457 (Given - Provider: Gretchen Marshall RN)2228 (Given - Provider: Rachel Mendoza RN) 0544 (Given - Provider: Good Escobedo LPN) 500 mg, Oral, EVERY 8 HOURS SCHEDULED, F irst dose on Thu09/03/21 at 0500, Until Discontinued, Routine miconazole (Micotin) 2 % powder 0900 (Not Given - Prov ider: Lena Walton RN - Reason: Patient/family refused)2100 (Not Given - Provider: Rachel Mendoza RN - Reason: Patient/family refused) 0900 (Not Given - Provider: Gretchen quiñones RN - Reason: Patient/family refused)2100 (Not Given - Provider: Rachel Mendoza RN - Reason: Patient/family refused) 0900 (Not Given - Provider: Christel hunt LPN - Reason: Patient/family refused) Topical (Top), 2 TIMES DAILY, First dose on Thu09/06/21 at 2100, Until Discontinued polyethylene glycoL (Miralax) packet 17 g 0900 (Not Gi leta - Provider: Lena Walton RN - Reason: Patient/family refused) 0900 (Not Given - Provider: Gretchen Marshall RN - Reason: Patient/family refused) 0900 (Not Given - Provider: Christel Parker LPN - Reason: Patient/family refused) 17 g, Oral, DAILY, First dose on 08/15 at 1145, Until Discontinued, Routine sodium chloride 0.9 % (flush) (BD PosiFlush Normal Harpal ine 0.9) flush 5 mL 0935 (Given - Provider: Lena Walton RN)2024 (Given - Provider: Rachel Mendoza RN) 0839 (Given - Provider: Gretchen Marshall RN)2046 (Given - Provider: Rachel Mendoza RN) 0900 (Given - Provider: Dell Sawyer) 5 mL, Intravenous, 2 TIMES DAILY, First dose on Thu09/02/21 at 2245, Until Discontinued, Recovery (Recovery-Hospital Unit), Routine PRN Medication Order 09/17/2021 09/18/2021 09/19/2021 dextrose 10% infusion(Linked Group 3) 250 mL, at 1,000 mL/hr, Intravenous, IRIS RY 30 MIN PRN, Starting on Thu09/02/21 at 2146, Until Kiara 09/19/21 at 1439, For BG 50-70 mg/dL: Oral treatment preferred: If able to drink, give 120 mL Juice or Regular (not diet) soda OR If NPO, give 15 gram glucose 40% oral gel massaged into buccal mucosa OR if unconscious or uncooperative, give 25 gram (250 mL) Dextrose 10% IV over 15 minutes per protocol OR , if no IV access, 1 mg Glucagon IM. For BG less than 50 mg/dL: Oral treatment preferred: If able to drink, give 240 mL Juice or Regular (not diet) soda OR If NPO, give 30 gram glucose 40% oral gel m assaged in buccal mucosa OR if unconscio us or uncooperative, give 25 gram (250 mL) Dextrose 10% IV over 15 minutes per protocol OR, if no IV access, 1 mg Glucagon IM. Recheck BG in 30 minutes. May rep eat juice/soda, gel, dextrose or glucago n once per episode. For persistent hypoglycemia, consider longer-acting treatment for the duration of the active insulin. glucagon (Glucagen) (1 mg/mL) injection solution 1 mg(Linked Elvia up 3) 1 mg, Intramuscular, EVERY 30 MIN PRN, S tarting on Thu09/02/21 at 2146, Until Kiara 09/19/21 at 1439, Low blood sugar, For BG 50-70 mg/dL: Oral treatment preferred: If able to drink, give 120 mL Juice or Regular (not diet) soda OR If NPO, give 15 gram glucose 40% oral gel massaged into buccal mucosa OR if unconscious or uncooperative, give 25 gram (250 mL) Dextrose 10% IV over 15 minutes per protocol O R, if no IV access, 1 mg Glucagon IM. For BG less than 50 mg/dL: Oral treatment preferred: If able to drink, give 240 mL Juice or Regular (not diet) soda OR If NPO, give 30 gram glucose 40% oral gel massaged in buccal mucosa OR if unconsci ous or uncooperative, give 25 gram (250 mL) Dextrose 10% IV over 15 minutes per protocol OR, if no IV access, 1 mg Glucagon IM. Recheck BG in 30 minutes. May re peat juice/soda, gel, dextrose or glucag on once per episode. For persistent hypoglycemia, consider longer-acting treatment for the duration of the active insulin., Routine glucose (Glutose) 40% oral geL(Linked Group 3) 15-30 g of glucose, Buccal, EVERY 30 MIN PRN, Starting on Thu09/02/21 at 2146, Until Kiara 09/19/21 at 1439, Low blood sugar, For BG 50-70 mg/dL: Oral treatment preferred: If able to drink, give 120 mL J uice or Regular (not diet) soda OR If LUBRICATING ENGINEER O, give 15 gram glucose 40% oral gel massaged into buccal mucosa OR if unconscious or uncooperative, give 25 gram (250 mL) Dextrose 10% IV over 15 minutes per pro tocol OR, if no IV access, 1 mg Glucagon IM. For BG less than 50 mg/dL: Oral treatment preferred: If able to drink, give 240 mL Juice or Regular (not diet) soda OR If NPO, give 30 gram glucose 40% or al gel massaged in buccal mucosa OR if u nconscious or uncooperative, give 25 gram (250 mL) Dextrose 10% IV over 15 minutes per protocol OR, if no IV access, 1 mg Glucagon IM. Recheck BG in 30 minutes. May repeat juice/soda, gel, dextrose or glucagon once per episode. For persistent hypoglycemia, consider longer-acting treatment for the duration of the active insulin. 1 tube of Glutose-15 contains 15 grams of glucose (net weight of tube = 37.5 grams.), Routine HYDROmorphone (Dilaudid) tablet 2 mg (CANCELED) 0736 ( Given - Provider: Lena Walton RN) 2 mg, Oral, EVERY 4 HOURS PRN, Starting on Thu09/06/21 at 1042, Until Thu09/17/21 at 1046, Pain, For pain not controlled with current regimen., Routine HYDROmorphone (Dilaudid) tablet 2 mg (CANCELED) 1144 ( Given - Provider: Christel Parker LPN) 2 mg, Oral, EVERY 4 HOURS PRN, Starting on Thu09/17/21 at 1042, Until Thu09/17/21 at 1737, Pain, For pain not releived within 30-60 minutes of receiving 2 mg dilaudid, give additional 2mg dilaudid, For pa in not releived within 30-60 minutes of receiving 2 mg dilaudid, give additional 2mg dilaudid, Routine HYDROmorphone (Dilaudid) tablet 2 mg(Linked Group 4) 1 823 (See Alternative - Provider: Christel Parker LPN)2207 (See Alternative - Provider: Rachel Mendoza RN) 0518 (See Alternative - Provider: Rachel Mendoza RN)0939 (See Alternative - Provider: Gretchen Marshall RN)1457 (See Alternative - Provider: Gretchen Marshall RN)2038 (See Alternative - Provider: Rachel Mendoza RN) 1104 (See Alternative - Provider: Dilip Dawson RN) 2 mg, Oral, EVERY 4 HOURS PRN, Starting on Thu09/17/21 at 1732, Until Thu09/19/21 at 1439, Pain, for mild pain (1-3), May give an additional 2 mg once if pain not relieved in 30-60 minutes., Routine HYDROmorphone (Dilaudid) tablet 4 mg(Linked Group 4) 1 823 (Given - Provider: Christel aPrker LPN)2207 (Given - Provider: Rachel Mendoza RN) 0518 (Given - Provider: Rachel Mendoza RN)0939 (Given - Provider: Gretchen Marshall RN)1457 (Given - Provider: Gretchen Marshall RN)2037 (Given - Provider: Rachel Mendoza RN) 1104 (Given - Provider: Dell Sawyer) 4 mg, Oral, EVERY 4 HOURS PRN, Starting on Thu09/17/21 at 1732, Until Kiara 09/19/21 at 1439, Pain, for moderate pain (4-6), May give an additional 2 mg once if pain not relieved in 30-60 minutes., Routine HYDROmorphone (Dilaudid) tablet 6 mg(Linked Group 4) 1 823 (See Alternative - Provider: Christel Parker LPN)2207 (See Alternative - Provider: Rachel Mendoza RN) 0518 (See Alternative - Provider: Rachel Mendoza RN)0939 (See Alternative - Provider: Gretchen Marshall RN)1457 (See Alternative - Provider: Gretchen Marshall RN)2037 (See Alternative - Provider: Rachel Mendoza RN) 1104 (See Alternative - Provider: Dilip Dawson RN) 6 mg, Oral, EVERY 4 HOURS PRN, Starting on Thu09/17/21 at 1732, Until Kiara 09/19/21 at 1439, Pain, for severe pain (7-10), May give an additional 2 mg once if pain not relieved in 30-60 minutes., Routine ibuprofen (Motrin) tablet 400 mg 1018 (Given - Provider: Jamilah Parker LPN) 1504 (Given - Provider: Gretchen Marshall RN) 400 mg, Oral, EVERY 6 HOURS PRN, Startin g on Thu09/02/21 at 2033, Until Kiara 09/19/21 at 1439, Pain, for MODERATE pain (4-6), Should be used concomitantly if other analgesics are ordered. Do not administer with ketorolac., Routine lidocaine (Xylocaine) 1% (10 mg/mL) injection 3 mg 3 mg (0.3 mL), Subcutaneous, ONCE PRN, 1 dose, Starting on Thu09/02/21 at 2146, Until Kiara 09/19/21 at 1439, for discomfort with PIV insertion, Recovery (Recovery- Hospital Unit), Routine naloxone (Narcan) (0.4 mg/mL) injection 0.2 mg 0.2 mg, Intravenous, EVERY 1 MIN PRN, St arting on Thu09/02/21 at 2146, Until Kiara 09/19/21 at 1439, Opioid Reversal, If respiratory rate less than 6 OR the patient is unable to arouse OR SpO2 is declining, Give for respiratory rate of less than or equal to 6 and patient is heavily sedated or unarousable. May repeat every 60 seconds to increase respiratory rate. DO NOT exceed 2 mg total dose., Recovery (Recovery-Hospital Unit), Routine ondansetron (pf) (Zofran) (2 mg/mL) injection 4-8 mg(Linked Grou p 5) 4-8 mg, Intravenous, EVERY 8 HOURS PRN, Starting on Thu09/02/21 at 2031, Until Kiara 09/19/21 at 1439, Nausea, Start with 4mg and if ineffective in 30 minutes, give an additional 4mg If multiple antiemetics are ordered, give ondansetron first. ondansetron (Zofran) tablet 4-8 mg(Linked Group 5) 4-8 mg, Oral, EVERY 8 HOURS PRN, Startin g on Thu09/02/21 at 2031, Until Kiara 09/19/21 at 1439, Nausea, Vomiting, If multiple antiemetics are ordered, use ondansetron first. PO Preferred. If patient ginna ble to take PO, may give IV if ordered. Start with 4mg and if ineffective in 45 minutes, give an additional 4mg. If unable to take PO, may give IV., Routine senna-docusate (Pericolace) 8.6-50 mg per tablet 2 tablet 2 tablet, Oral, 2 TIMES DAILY PRN, Start ing on Thu09/02/21 at 2146, Until Kiara 09/19/21 at 1439, Constipation, Routine sodium chloride 0.9 % (flush) (BD PosiFlush Normal Saline 0.9) f lush 5-20 mL 5-20 mL, Intravenous, EVERY 1 MIN PRN, S tarting on Thu09/02/21 at 2146, Until Kiara 09/19/21 at 1439, flush, Flush pertains to all indwelling lines. Flush per protocol found in the job aid using the link pr ovided on this medication record., Recovery (Recovery-Hospital U nit), Routine Linked Groups Order Group 1: POCT Fingerstick Glucose (CANCELED) Routine, 4 TIMES DAILY BEFORE MEALS & AT BEDTIME, First occurrence on Thu09/02/21 at 2200, Until Specified
Consider choosing FOUR TIMES A DAY BEFORE MEALS AND AT BEDTIME as frequency fo r: Patients who have a good hypoglycemia awareness: -Patients who are eating meals during the day and sleeping at night -Patient who are otherwise stable And insulin lispro (HumaLOG;Admelog) (100 unit/mL) subcutaneous injection vial 1-6 UnitsJump to med 1-6 Units, Subcutaneous, 4 TIMES DAILY B EFORE MEALS & NIGHTLY, First dose on Thu09/02/21 at 2245, Until Discontinued
CORRECTION BOLUS [1-6 Units] Moderate Sliding Scale (BG in mg/dL): Correction factor 20 (1 unit of insulin is expected to drop the glucose 20 mg/dL) BG 140 - 160 Give 1 unit BG 161 - 180 Give 2 units BG 181 - 200 Give 3 units BG 201 - 220 Give 4 units BG 221 - 240 Give 5 units BG greater than 240, give 6 units and recheck BG in 2 hours. - If recheck BG is LESS than 240, give n o insulin and resume schedule. - I f recheck BG is GREATER than 240, give 6 units and repeat BG in 2 hours (no more than 3 times) & call for new insulin orders. DO N OT hold if NPO, unless specifically dire cted to do so by written order. Per Blood Glucose Monitoring Policy, re-check a BG of > 240 mg/dL in 2 hours.
Routine Group 2: lidocaine (Lidoderm) 5% patch 3 patchJump to med 3 patch, Transdermal, EVERY 24 HOURS, Fi rst dose on Thu09/03/21 at 1200, Until Discontinued
Apply patch(es) for 12 hours, and then remove for 12 hours.
Routine And lidocaine (Lidoderm) topical patch REMOVALJump to med Transdermal, EVERY 24 HOURS, First dose on Thu09/03/21 at 2315, Until Discontinued
Remove lidocaine 5% patch
Group 3: glucose (Glutose) 40% oral geLJump to med 15-30 g of glucose, Buccal, EVERY 30 MIN PRN, Starting on Thu09/02/21 at 2146, Until Kiara 09/19/21 at 1439, Low blood sugar
For BG 50-70 mg/dL: &nbsp ;Oral treatment preferred: If able to dr ink, give 120 mL Juice or Regular (not diet) soda OR If NPO, give 15 gram glucose 40% oral gel massaged into buccal mucosa OR if unconscious or uncooperative, giv e 25 gram (250 mL) Dextrose 10% IV over 15 minutes per protocol OR, if no IV access, 1 mg Glucagon IM. For BG less than 50 mg/dL: Oral treatment pref erred: If able to drink, give 240 mL Jui ce or Regular (not diet) soda OR If NPO, give 30 gram glucose 40% oral gel massaged in buccal mucosa OR if unconscious or uncooperative, give 25 gram (250 mL) Dex trose 10% IV over 15 minutes per protoco l OR, if no IV access, 1 mg Glucagon IM. Recheck BG in 30 minutes. May repeat juice/soda, gel, dextrose or glucagon once per episode.&nbs p; For persistent hypoglycemia, consider longer-acting treatment for the duration of the active insulin. 1 tube of Glutose-15 contains 15 grams of glucose (net weight of tube = 37.5 grams.)
Routine Or dextrose 10% infusionJump to med 250 mL, at 1,000 mL/hr, Intravenous, IRIS RY 30 MIN PRN, Starting on Thu09/02/21 at 2146, Until Kiara 09/19/21 at 1439
For BG 50-70 mg/dL: Oral tr eatment preferred: If able to drink, giv e 120 mL Juice or Regular (not diet) soda OR If NPO, give 15 gram glucose 40% oral gel massaged into buccal mucosa OR if unconscious or uncooperative, give 25 gra m (250 mL) Dextrose 10% IV over 15 minut es per protocol OR, if no IV access, 1 mg Glucagon IM. For BG less than 50 mg/dL: Oral treatment preferred: I f able to drink, give 240 mL Juice or Re gular (not diet) soda OR If NPO, give 30 gram glucose 40% oral gel massaged in buccal mucosa OR if unconscious or uncooperative, give 25 gram (250 mL) Dextrose 10 % IV over 15 minutes per protocol OR, if no IV access, 1 mg Glucagon IM. Recheck BG in 30 minutes. May repeat juice/soda, gel, dextrose or glucagon once per episode. &n bsp; For persistent hypoglycemia, cons ider longer-acting treatment for the duration of the active insulin.
Or glucagon (Glucagen) (1 mg/mL) injection solution 1 mgJump to med 1 mg, Intramuscular, EVERY 30 MIN PRN, S tarting on Thu09/02/21 at 2146, Until Kiara 09/19/21 at 1439, Low blood sugar
For BG 50-70 mg/dL: Oral t reatment preferred: If able to drink, gi ve 120 mL Juice or Regular (not diet) soda OR If NPO, give 15 gram glucose 40% oral gel massaged into buccal mucosa OR if unconscious or uncooperative, give 25 gr am (250 mL) Dextrose 10% IV over 15 guilherme sandra per protocol OR, if no IV access, 1 mg Glucagon IM. For BG less than 50 mg/dL: Oral treatment preferred: If able to drink, give 240 mL Juice or R egular (not diet) soda OR If NPO, give 30 gram glucose 40% oral gel massaged in buccal mucosa OR if unconscious or uncooperative, give 25 gram (250 mL) Dextrose 1 0% IV over 15 minutes per protocol OR, i f no IV access, 1 mg Glucagon IM. Recheck BG in 30 minutes. May repeat juice/soda, gel, dextrose or glucagon once per episode. 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
Routine Group 4: HYDROmorphone (Dilaudid) tablet 2 mgJump to med 2 mg, Oral, EVERY 4 HOURS PRN, Starting on Thu09/17/21 at 1732, Until Kiara 09/19/21 at 1439, Pain, for mild pain (1-3)
May give an additional 2 mg once if pain not relieved in 30-60 minutes.
Routine Or HYDROmorphone (Dilaudid) tablet 4 mgJump to med 4 mg, Oral, EVERY 4 HOURS PRN, Starting on Thu09/17/21 at 1732, Until Kiara 09/19/21 at 1439, Pain, for moderate pain (4-6)
May give an additional 2 mg once if pain not relieved in 30-60 minutes.
Routine Or HYDROmorphone (Dilaudid) tablet 6 mgJump to med 6 mg, Oral, EVERY 4 HOURS PRN, Starting on Thu09/17/21 at 1732, Until Kiara 7 at 1439, Pain, for severe pain (7-10)
May give an additional 2 mg once if pain not relieved in 30-60 minutes.
Routine Group 5: ondansetron (Zofran) tablet 4-8 mgJump to med 4-8 mg, Oral, EVERY 8 HOURS PRN, Startin g on Thu09/02/21 at 2031, Until Kiara 09/19/21 at 1439, Nausea, Vomiting
If multiple antiemetics are ordered, use ondansetron first. PO Preferr ed. If patient unable to take PO, may gi ve IV if ordered. Start with 4mg and if ineffective in 45 minutes, give an additional 4mg. If unable to take PO, may give IV.
Routine Or ondansetron (pf) (Zofran) (2 mg/mL) injection 4-8 mgJump to med 4-8 mg, Intravenous, EVERY 8 HOURS PRN, Starting on 09/02/21 at 2031, Until Kiara 09/19/21 at 1439, Nausea
Start with 4mg and if ineffective in 30 minutes, give an additional 4mg If multiple antiemetics are ordered, give o ndansetron first.
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
--- OUTSIDE RECORDS SUMMARY | 2021-09-27 14:49 | XMS_ITS | Encounter Summary ---
:1960 Author Organization [facility] [place] [address] Care Team Providers Name Role Phone Ally Ortiz APRN Primary Care Provider Reason for Referral Home Health Care (Routine) - Pending Review Specialty Diagnoses / Procedures Referred By Contact Refer red To Contact Diagnoses Wound infection after surgery Abscess of abdominal wall Gabriel Daniel MD Home [facility] H[facility], [facility] [address] [place] [address] [place] [address] [place] [address] Phone: Fax: Referral ID Status Reason Start Expiration Visits Visits Date Date Requested Authorized [id number] Pending Consult, 09/19/2021 03/18/2022 999 999 Review Test & Treat Reason for Visit Reason Comments Abdominal Pain Auth/Cert Specialty Diagnoses / Procedures Referred By Contact Refer red To Contact Diagnoses Abscess of abdominal wall Abscess Jerod Frost MD [facility] Procedures EMERGENCY [facility] [place] [address] Referral ID Status Reason Start Date Expiration Date Visits Requ ested Visits Authorized [id number] 1 1 Encounter Details Date Type Department Care Team Description 09/02/2021 - Hospital Encounter 3 Fred Cardoza MD [facility] [place] [address] Abs[facility]; [facility] [place] [address] [facility]ound [facility] [place] [address] Abscess of abdominal wall [facility] Joshua Che MD [facility] [place] [address] Ai Corrales MD [facility] [place] [address] [place], [place] Gabriel Daniel MD [facility] [place] [phone] Social History Tobacco Use Types Packs/Day Years [...] who have questions please contact the health student career development specialist that requested your imaging first. Discharge Exam: [...] Montgomery for admission to Home Health. [address] [address] Phone Number: [phone] (home) Date of : 1960 Inpatient DOCUMENTATION FOR VNA SERVICES (INCLUDING THOSE PATIENTS WITH MEDICARE COVERAGE REQUIRING HOME VNA SERVICES AND/OR HOSPICE SERVICES) PATIENT'S LOCATION: Jahaira Montgomery [address] [address] User Interface Developer's Name: Self In discussion with the attending physician, it is certified that this patient is under their care and that they, or a Nurse Practitioner,Clinical Nurse specialist or Physician Relationship Manager who is working directly with them, had [...] createa circular form with the dressing. The cherokee should cover the inside of the wound [...] for managing ADL's. HOME HEALTH CARE AGENCY: [facility]. [address] [place] [id number] Start of care: 24-48hrs after discharge Please note that any additional orders needs or changes will need to be obtained from this patient'sPCP: Ally Ortiz, MEDICAL ASSEMBLY [phone] [facility] [id number] All A agencies which cover the [...] Center 09/30/2021 1:30 PM Werner Harrell MD [facility] ID [id number] [facility] Instructions Given to Patient at Discharge:. Thank you for trusting [facility] with your care. We will see you [...] MD Acute Care Surgery Service Team Pager #[phone] 09/19/2021 10:18 AM documented in this encounter [...] Center 09/30/2021 1:30 PM Werner Harrell MD [facility] ID [id number] [facility] Narcotics: You may be given a prescription [...] 1. You will have follow-up appointments at [facility] as indicated in the ???Future Appointments and [...] on the next business day. Please call [phone] if you do not hear from us by that time, as your timely follow-up is very important to us. Your care was managed by the Trauma and Acute Care Surgery Team at [facility]. If you have any questions or concerns, please feel free to contact us. Provider Contact Information: General Surgery: [facility] (after business hours): CC: Primary Care Physician: Ally Ortiz APRN documented in this encounter Medications at Time of Discharge Medication Sig Dispensed Refills Start Date End Date gabapentin (Neurontin) 300 Take 2 capsules 90 capsule 09/2021 mg Capsule by mouth 3 times [...] to home with family. Dilip Dawson RN BT Gus Clark MD - 09/19/2021 9:33 AM EDT ID/MECHANISM OF INJURY: Jahaira Montgomery is a 61 y.o. female S/p ventral hernia repair, abscess, abdominal wall debridement, open healing wound OR CASE INFORMATION: 09/13/2021 Procedure(s): DEBRIDEMENT SKIN AND SUBCU, FIRST 20 SQ CM, ABDOMEN (WRVU 1.01) FOLLOW-UP NEEDED: Does pt need to f-u with surgeon or ORDER SELECTOR (please indicate reason if attending provider): ORDER SELECTOR How soon should TACS f/u be? The [...] Name: PCP Name: TAMMY Marx MD 09/19/2021 Rachel Mendoza RN - 09/19/2021 4:01 AM EDT [...] (98.2 ??F) Oral -- 18 96 % 09/17/213 (!) 143/92 36.8 ??C (98.2 ??F) Axillary [...] - Inpatient Troy Weaver MD 09/18/21 [facility] 5054 Acute Care Surgery Attending Addendum: [...] Muñiz MD 09/17/2021 Acute Pain Service Pager: [phone] I have seen and examined the patient. [...] ??C (98.1 ??F) Oral 16 94 % 09/16/212319 138/69 37 ??C (98.6 ??F) Oral 16 96 % 09/16/212007 117/68 37 ??C (98.6 ??F) Oral 16 96 % 09/16/21 192 125/68 37 ??C (98.6 ??F) Oral 18 97 % 09/16/21 1632 159/84 36.7 ??C (98.1 ??F) Oral 16 [...] set up. - Speak to APS for half-way pain management - Wound Vac change at [...] and Outcome:Provided emotional, spiritual support and listening presence.??Spray Machine Operator services accepted. Conversation to build trusting relationship. Provided pastoral presence. Provided spiritual guidance. ?? Follow-up: yes ?? Time in Direct Care:10 Mins Adonis Little 09/17/2021 Rachel Mendoza RN - 09/17/2021 2:35 [...] Bed Alarm Set Farheen Doll RN - 09/16/2021 6:14 PM EDT OUTCOME [...] R arm, capped. Voiding in BSC. LBM /. Tolerating carb control diet. BG well controlled [...] bed/chair alarm, demonstrates proper use of call glovre and verbalizes understanding of fall preventions implemented. [...] - Inpatient Danica Ricks MD 09/15/21 [facility] 5054 Attending Addendum I have seen [...] not feasible. Ai Arriaza MD [phone] Teri Singh RN - 09/15/2021 3:12 AM EDT OUTCOME [...] purposeful rounding, room close tonurses station : dAonis Little - 09/14/2021 3:19 PM EDT Spray Machine Operator Encounter Note Patient Name: Jahaira Montgomery : [id number] MR#: [id number] Admit Date: 09/02/2021 4:29 PM Hospital Day 12 days Narrative:Follow-up visit for continued assessment and support. Assessment:Patient coping positively with stresses of illness/hospitalization at this time. 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 Intervention and Outcome:Provided emotional, spiritual support and listening presence. Spray Machine Operator services accepted. Conversation to build trusting relationship. [...] (98.1 ??F) Oral -- -- 94 % 07/02/22 0605 131/75 36.6 ??C (97.9 ??F) Oral [...] 127/72 -- -- 71 10 99 % 09/13/212051 136/81 36.4 ??C (97.5 ??F) Temporal 76 [...] however given the size of the wound,and lnl-eo-[id number] management, she would benefit form a wound [...] - Inpatient Gus Clark MD 09/14/21 ACS 4152 Attending Addendum I have seen and examined [...] however given the size of the wound,and yfe-cx-eysqvsqk management, she would benefit form a wound [...] Adonis Little - 09/12/2021 3:07 PM EDT Spray Machine Operator Encounter Note Patient Name: Jahaira Montgomery : [id number] MR#: [id number] Admit Date: 09/02/2021 4:29 PM Hospital Day 10 days Narrative:Visited to introduce and assess acceptance of Spray Machine Operator services. Assessment: Patient was awake, alert, oriented [...] Outcome:Provided emotional, spiritual support and listening presence. Spray Machine Operator services accepted. Conversation to build trusting relationship. [...] ??C (98.1 ??F) Oral 16 95 % 09/11/21 2058 150/75 36.6 ??C (97.9 ??F) Oral 16 96 % 09/11/21 1622 -- -- -- -- 99 % 09/11/21 1618 150/76 36.7 ??C (98.1 ??F) Oral 15 [...] Patient endorses some hunger between meals, pat ient requested to received a snack of Baked [...] hospital course unless consulted in the interim. Sherie Castañeda, TONE [phone] Ai Arriaza MD - 09/11/2021 10:14 AM [...] - Inpatient Troy Weaver MD 09/11/21 [facility] 5054 Attending Addendum I have seen [...] and discharge planning. - APS consulted for half-way pain modality care. NEURO: Gabapentin, lidocaine patches, [...] - Inpatient Gus Clark MD 09/10/21 [facility] 5054 I saw and evaluated the [...] - 09/10/2021 7:29 PM EDT Admit to 3W from [facility], report received from HERLINDA Barajas on RA, pain adequately controlled Pt denies [...] given to GENA Godinez [facility] Sandrine Delarosa, PT - 09/10/2021 11:29 [...] Total Minutes, Physical Therapy: 12 Billing Code: te-f SANDRINE DELAROSA PT Pager: [phone] Physical Therapy Inpatient Rehabilitation Department Supriya Olivera [...] Ricks MD PGY-5 Acute Care Surgery pager [phone] Joshua Che MD - 09/09/2021 4:33 PM [...] as documented. Joshua Che MD Elida Kapoor OT - 09/09/2021 2:00 PM EDT Occupational Therapy Evaluation Patient profile: Per note: Jahaira Montgomery??is a 61 y.o.??female??with a [...] 27.9) performed by Miryam Wiley MD at [facility] MAIN OR ??? PRO COLONOSCOPY, DIAGNOSTIC N/A 08/18/2019 COLONOSCOPY, DIAGNOSTIC performed by Emigdio Lanier MD at [facility] ENDOSCOPY ??? PRO CYSTOSCOPY, INSERT URETERAL STENT Right 09/14/2019 CYSTO, STENT PLACEMENT INTRAOP, TEMPORARY (WRVU 2.82) performed by Werner Fournier MD at [facility] MAIN OR ? ? PRO DEBRIDEMENT MUSCLE AND FASCIA 20 SQ CM/< Midline 08/15/2021 DEBRIDEMENT SKIN, SUBCU, MUSCLE, ABDOMEN (WRVU 2.7) performed by Gabriel Daniel MD at [facility] MAIN OR ? ? PRO DEBRIDEMENT SUBCUTANEOUS TISSUE 20 SQCM/< Midline 08/17/2021 DEBRIDEMENT SKIN AND SUBCU, FIRST 20 SQ CM, ABDOMEN (WRVU 1.01) performed by Negro Watters MD Count includes the [facility] OR ??? PRO EXPLORATION OF ABDOMEN N/A 04/25/2020 @EXPLORATORY LAPAROTOMY, WITH/WITHOUT BIOPSY(S) (WRVU 12.54) performed by Jerod Frost MD at [facility] MAIN OR ??? PRO IMPLANT MESH HERNIA REPAIR/DEBRIDEMENT CLOSURE N/A 2021 IMPLANT MESH FOR INCISIONAL OR VENTRAL HERNIA REPAIR (WRVU 4.88) performed by Negro Watters MD at [facility] OR ??? PRO INCISION AND DRAINAGE ABSCESS SIMPLE/SINGLE N/A 08/12/2021 I & D ABSCESS, SIMPLE OR SINGLE, TRUNK (WRVU 1.22) performed by Joshua Che MD at [facility] OR ??? PRO MOBILIZE SPLENIC FLEX N/A 09/14/2019 @MOBILIZATION OF SPLENIC FLEXURE (WRVU 2.23) performed by Miryam Wiley MD at [facility] OR ??? PRO OMENTAL FLAP, INTRA-ABDOMINAL 09/14/2019 @OMENTAL FLAP, INTRA-ABDOMINAL (WRVU 6.54) performed by Miryam Wiley MD at [facility] OR ??? PRO REPAIR RECURR INCIS HERNIA, DEONTE N/A 04/25/2020 HERNIA REPAIR, VENTRAL OR INCISIONAL, RECURRENT, INCARCERATED (WRVU 15.53) performed by Jerod Frost MD at [facility] OR ??? PRO REPAIR RECURR INCIS HERNIA, DEONTE Left 04/25/2021 HERNIA REPAIR, VENTRAL OR INCISIONAL, RECURRENT, INCARCERATED (WRVU 15.53) performed by Loco White MD at [facility] OR ??? PRO REPAIR RECURR INCIS HERNIA, DEONTE N/A 2021 HERNIA REPAIR, VENTRAL OR INCISIONAL, RECURRENT, INCARCERATED (WRVU 15.53) performed by Negro Watters MD at [facility] OR ??? PRO SEC CLSR SURG WOUND/DEHSN EXTENSIVE/COMPLICATED Midline 08/19/2021 SECONDARY CLOSURE SURGICAL WOUND OR DEHISCENCE, EXTENSIVE OR COMPLICATED, TRUNK (WRVU 12.04) performed by Jerod Frost MD at [facility] OR ??? PRO SIGMOIDOSCOPY, DIAGNOSTIC N/A 09/14/2019 SIGMOIDOSCOPY, FLEXIBLE W/WO SPECIMEN BY BRUSHING OR WASHING (WRVU 0.84) performed by Miryam Wiley MD at [facility] OR ??? TUBAL LIGATION Social History: Patient [...] My family is going on vacation to [place]. My EMELIA helps me w dressing and [...] & Perception: ?? WNL/WFL ?? 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 Diagnosis & [...] and measurable assessment of functional outcome. Pager: [phone] Elida Kapoor OT 09/09/2021 Occupational Therapy Rehabilitation Department Sandrine Delarosa PT - 09/09/2021 12:01 PM EDT Physical [...] 27.9) performed by Miryam Wiley MD at [facility] MAIN OR ??? PRO COLONOSCOPY, DIAGNOSTIC N/A 08/18/2019 COLONOSCOPY, DIAGNOSTIC performed by Emigdio Lanier MD at [facility] ENDOSCOPY ??? PRO CYSTOSCOPY, INSERT URETERAL STENT Right 09/14/2019 CYSTO, STENT PLACEMENT INTRAOP, TEMPORARY (WRVU 2.82) performed by Werner Fournier MD at [facility] MAIN OR ? ? PRO DEBRIDEMENT MUSCLE AND FASCIA 20 SQ CM/< Midline 08/15/2021 DEBRIDEMENT SKIN, SUBCU, MUSCLE, ABDOMEN (WRVU 2.7) performed by Gabriel Daniel MD at [facility] MAIN OR ? ? PRO DEBRIDEMENT SUBCUTANEOUS TISSUE 20 SQCM/< Midline 08/17/2021 DEBRIDEMENT SKIN AND SUBCU, FIRST 20 SQ CM, ABDOMEN (WRVU 1.01) performed by Negro Watters MD [facility] MAIN OR ??? PRO EXPLORATION OF ABDOMEN N/A 04/25/2020 @EXPLORATORY LAPAROTOMY, WITH/WITHOUT BIOPSY(S) (WRVU 12.54) performed by Jerod Frost MD at [facility] OR ??? PRO IMPLANT MESH HERNIA REPAIR/DEBRIDEMENT CLOSURE N/A 2021 IMPLANT MESH FOR INCISIONAL OR VENTRAL HERNIA REPAIR (WRVU 4.88) performed by Negro Watters MD at [facility] OR ??? PRO INCISION AND DRAINAGE ABSCESS SIMPLE/SINGLE N/A 08/12/2021 I & D ABSCESS, SIMPLE OR SINGLE, TRUNK (WRVU 1.22) performed by Joshua Che MD at [facility] OR ??? PRO MOBILIZE SPLENIC FLEX N/A 09/14/2019 @MOBILIZATION OF SPLENIC FLEXURE (WRVU 2.23) performed by Miryam Wiley MD at [facility] OR ??? PRO OMENTAL FLAP, INTRA-ABDOMINAL 09/14/2019 @OMENTAL FLAP, INTRA-ABDOMINAL (WRVU 6.54) performed by Miryam Wiley MD at [facility] OR ??? PRO REPAIR RECURR INCIS HERNIA, DEONTE N/A 04/25/2020 HERNIA REPAIR, VENTRAL OR INCISIONAL, RECURRENT, INCARCERATED (WRVU 15.53) performed by Jerod Frost MD at [facility] OR ??? PRO REPAIR RECURR INCIS HERNIA, DEONTE Left 04/25/2021 HERNIA REPAIR, VENTRAL OR INCISIONAL, RECURRENT, INCARCERATED (WRVU 15.53) performed by Loco White MD at [facility] OR ??? PRO REPAIR RECURR INCIS HERNIA, DEONTE N/A 2021 HERNIA REPAIR, VENTRAL OR INCISIONAL, RECURRENT, INCARCERATED (WRVU 15.53) performed by Negro Watters MD at [facility] OR ??? PRO SEC CLSR SURG WOUND/DEHSN EXTENSIVE/COMPLICATED Midline 08/19/2021 SECONDARY CLOSURE SURGICAL WOUND OR DEHISCENCE, EXTENSIVE OR COMPLICATED, TRUNK (WRVU 12.04) performed by Jerod Frost MD at [facility] OR ??? PRO SIGMOIDOSCOPY, DIAGNOSTIC N/A 09/14/2019 SIGMOIDOSCOPY, FLEXIBLE W/WO SPECIMEN BY BRUSHING OR WASHING (WRVU 0.84) performed by Miryam Wiley MD at [facility] OR ??? TUBAL LIGATION Social History: lives [...] in this evaluation. Time IN / OUT: 6981-1341 Total Minutes, Physical Therapy: 38 Billing Code: kike DELAROSA, PT Pager: [phone] Physical Therapy Inpatient Rehabilitation Department Supriya Olivera [...] Ricks MD PGY-5 Acute Care Surgery pager [phone] Patricia Crabtree PT - 09/08/2021 11:05 AM [...] thank you. Patricia Crabtree, PT, DPT Pager #[phone] Physical Therapy Inpatient Rehabilitation Troy Weaver MD [...] (99.5 ??F) Oral -- 12 94 % 09/07/21 2044 181/83 37.4 ??C (99.3 ??F) Oral -- [...] changes on midline wound Discharge planning Miryam Lay MD - 09/07/2021 4:37 PM EDT Acute [...] - Inpatient Miryam Whatley MD 09/07/21 [facility] 5054 Associated attestation - Negro Watters [...] continue with moist to moist dressing changes Yaneli TORRES planning Negro Watters MD 09/08/2021 7:27 AM [...] - Inpatient Rosmery Moreno MD 09/06/21 [facility] 5054 Associated attestation - Negro Watters [...] healing and wound care, next change tomorrow Diurese DC planning with VNA for VAC changes Negro [...] No signs of wound infection. Remove sutures Yaneli TORRES planning Negro Watters MD 09/05/2021 6:52 AM [...] want? VSS. See flow sheet. 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 Provider removed GEE drain and sutures. PLAN [...] Frost MD - 09/02/2021 8:08 PM EDT [facility] Department of Surgery History and Physical [...] 27.9) performed by Miryam Wiley MD at [facility] MAIN OR ??? PRO COLONOSCOPY, DIAGNOSTIC N/A 08/18/2019 COLONOSCOPY, DIAGNOSTIC performed by Emigdio Lanier MD at [facility] ENDOSCOPY ??? PRO CYSTOSCOPY, INSERT URETERAL STENT Right 09/14/2019 CYSTO, STENT PLACEMENT INTRAOP, TEMPORARY (WRVU 2.82) performed by Werner Fournier MD at [facility] OR ? ? PRO DEBRIDEMENT MUSCLE AND FASCIA 20 SQ CM/< Midline 08/15/2021 DEBRIDEMENT SKIN, SUBCU, MUSCLE, ABDOMEN (WRVU 2.7) performed by Gabriel Daniel MD at [facility] OR ? ? PRO DEBRIDEMENT SUBCUTANEOUS TISSUE 20 SQCM/< Midline 08/17/2021 DEBRIDEMENT SKIN AND SUBCU, FIRST 20 SQ CM, ABDOMEN (WRVU 1.01) performed by Negro Watters MD Count includes the [facility] OR ??? PRO EXPLORATION OF ABDOMEN N/A 04/25/2020 @EXPLORATORY LAPAROTOMY, WITH/WITHOUT BIOPSY(S) (WRVU 12.54) performed by Jerod Frost MD at [facility] OR ??? PRO IMPLANT MESH HERNIA REPAIR/DEBRIDEMENT CLOSURE N/A 2021 IMPLANT MESH FOR INCISIONAL OR VENTRAL HERNIA REPAIR (WRVU 4.88) performed by Negro Watters MD at [facility] OR ??? PRO INCISION AND DRAINAGE ABSCESS SIMPLE/SINGLE N/A 08/12/2021 I & D ABSCESS, SIMPLE OR SINGLE, TRUNK (WRVU 1.22) performed by Joshua Che MD at [facility] OR ??? PRO MOBILIZE SPLENIC FLEX N/A 09/14/2019 @MOBILIZATION OF SPLENIC FLEXURE (WRVU 2.23) performed by Miryam Wiley MD at [facility] OR ??? PRO OMENTAL FLAP, INTRA-ABDOMINAL 09/14/2019 @OMENTAL FLAP, INTRA-ABDOMINAL (WRVU 6.54) performed by Miryam Wiley MD at [facility] OR ??? PRO REPAIR RECURR INCIS HERNIA, DEONTE N/A 04/25/2020 HERNIA REPAIR, VENTRAL OR INCISIONAL, RECURRENT, INCARCERATED (WRVU 15.53) performed by Jerod Frost MD at [facility] OR ??? PRO REPAIR RECURR INCIS HERNIA, DEONTE Left 04/25/2021 HERNIA REPAIR, VENTRAL OR INCISIONAL, RECURRENT, INCARCERATED (WRVU 15.53) performed by Loco White MD at [facility] OR ??? PRO REPAIR RECURR INCIS HERNIA, DEONTE N/A 2021 HERNIA REPAIR, VENTRAL OR INCISIONAL, RECURRENT, INCARCERATED (WRVU 15.53) performed by Negro Watters MD at [facility] OR ??? PRO SEC CLSR SURG WOUND/DEHSN EXTENSIVE/COMPLICATED Midline 08/19/2021 SECONDARY CLOSURE SURGICAL WOUND OR DEHISCENCE, EXTENSIVE OR COMPLICATED, TRUNK (WRVU 12.04) performed by Jerod Frost MD at [facility] OR ??? PRO SIGMOIDOSCOPY, DIAGNOSTIC N/A 09/14/2019 SIGMOIDOSCOPY, FLEXIBLE W/WO SPECIMEN BY BRUSHING OR WASHING (WRVU 0.84) performed by Miryam Wiley MD at [facility] OR ??? TUBAL LIGATION Medications No current [...] m?? Lactate, whole blood, send to lab ([facility]) Result Value Ref Range Lactate WB 2.1 [...] Charly Agrawal MD 09/02/2021 General Surgery Pager [phone] Attending Addendum I have seen and examined [...] Clark MD - 09/16/2021 3:57 PM EDT ACS Surgery Service Wound Vac Change Note ID: [...] Clark MD - 09/14/2021 10:49 AM EDT [facility] Placement Note ID: [...] 9:00 PM EDT Report called to receiving RN. Lauri ordered. 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 Pain has been getting worse over the last 24 hours. No fevers or chills. Appears very uncomfortable. Belly labs, CT scan, and cultures ordered. Demetrius Camejo PA 09/02/21 1553 documented in this encounter Miscellaneous Notes Care Management Discharge - Aria Shultz RN - 09/19/2021 10:35 AM EDT CARE MANAGEMENT FINAL DISCHARGE NOTE Chart reviewed, care reviewed with primary team and at interdisciplinary rounds. Patient is medically ready for discharge to Home with [facility]. Confirmed through John that RN will see 3x week starting tomorrow. Team updated. Needs for Transition of Care: Plan for discharge is: Long Term Facility / Swing Outpatient Agency/Support Group Needs: Homecare agency Home Health Services: Registered Nurse, Occupational Therapy Agency Referrals & Follow-up Care: Contact information for follow-up Home Health & Hospice, [place] [address] Transportation: family or friend will provide Functional [...] of care related to: Wound vac changes Tu//Thu. Team completed Medicaid form for Wound vac. Faxed to [employer] form and supporting documentation. Functional status prior to admission: Independent Home Environment: Others in the home: sibling(s). Current Living Arrangements: home/apartment/condo. Accessibility Concerns: 2 level home, stays on first level, ramp with railing to enter.. 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 DME used at home: none Other DME Needs: Wound Vac Provider: [place] Delivery: In Process Patient is insured through: Primary Insurance: [place] Payor[place] / Plan: [place] / Product Type: *No Product type* / Secondary Insurance: N/A Last Physical Therapy Recommendation: home with home health with None Last Occupational Therapy Recommendation: home with supervision with None Plan for discharge is: Long Term Facility / Swing Outpatient Agency/Support Group Needs: Homecare agency Home Health Services: Registered Nurse, Occupational Therapy Agency Referrals: [facility], [facility] Transportation: family or friend will provide Plan going forward: Care Management will continue to follow and assist with discharge planning and coordination of care as indicated. Anticipated Date of Discharge: 09/18/2021 Aria Shultz RN, BSN Case Management Op Note - Ai Arriaza MD - 09/13/2021 8:52 PM EDT [facility] Operative Note Patient Name: Jahaira Montgomery : [id number] MR#: [id number] Case Date: 09/13/2021 Surgeon: Surgeon(s) and Role: [...] VSS on RA. Tolerating diet, NPO at [place] for procedure. Conts with glucose monitoring for [...] Reyes MD 09/12/2021 Acute Pain Service Pager: [phone] Associated attestation - Neal Espinal MD - [...] supervision with None Plan for discharge is: Long Term Facility / [facility] Outpatient Agency/Support Group Needs: Homecare agency Home Health Services: Registered Nurse, Occupational Therapy Agency Referrals: [facility] for RN, OT Transportation: family [...] go back to the OR tomorrow. This medical writer offered emotional support & to take the [...] on with ADL's Surveillance [continuous indirect monitoring]: Paul Purposeful Rounding, Nurse Knowledge Exchangeat Bedside, Bed Alarm Set Care Management - Aria Shultz RN - 09/09/2021 2:54 PM EDT Based on discussions with the multi-disciplinary healthcare team, the patient would benefit from SNF/ Swing level of care at discharge. I have met with the patient to: ?? discuss discharge planning needs. ?? provide the [facility], Office of Care Management letter from the Doffer pertaining to rehab referrals. ?? provide a letter describing our affiliations within the [facility] and educate about their right to choose where referrals are sent. ?? provide the CMS Star Quality Rating handout. ?? review the different levels of rehab including SNF, swing, and acute. ?? provide a list of facilities within their preferred geographic area. ?? request that they provide at least three choices for referral. They have requested referrals to: [facility] [place] [address] [place] [address] P: [phone] F: [phone] [facility]) [address] [place] [address] (Accepts pts only after exhausting all other local SNF options) [facility] [address] [place] [address] Note routed to a Plumbing Engineer who will communicate referrals to facilities and [...] patient will require daily dressing changes. Called [facility] and the [place] [facility] visits would be 3x week. Patient [...] Services: Registered Nurse, Occupational Therapy Agency Referrals: [facility] for RN, OT Transportation: family [...] ??D. Ten Frost MD Patient admitted to [facility] for follow up with pain. Source of Information: Team, bedside nurse, medical record, and Patient Introduced self/reviewed role; services accepted. Reason for Hospitalization: Pain from incision Covid Vaccination Status: 1st, 2nd & booster (Moderna x3) Last COVID test: Lab Results Component Value Date COVID19 Not Detected 08/15/2021 [id number] Not Detected 09/02/2021 Past medical History: Past [...] brother would be surrogate decision maker per [place] surrogate decision making law. (Only good for 180 days) Any patient receiving care at [facility] must abide by [place] law. The hierarchy for surrogate decision making [...] (i) The agent with financial power of estate attorney or a conservator appointed in accordance with [...] Current DME: none Home Address confirmed as: [address] [place] [id number] Social & Family Supports: Extended Emergency Contact [...] Insurance: N/A Prescription Coverage: Yes Preferred Pharmacy: [email or web address] [email or web address] [place], [place] - [address] [facility] [address] [facility] [address] [place], [place] - [address] [facility] [address] [facility] [address] [facility] [address] [place] Status: Patient is a : No Primary Care Provider: Ally Ortiz APRN [phone] Patient/Caregiver Goals of Treatment: figure out the pain Potential Needs for Transition of Care: home health care Agency Referrals: I have met with the patient to: ?? discuss discharge planning needs. ?? provide the [facility], Office of Care Management letter from the Doffer pertaining to rehab referrals. ?? provide a letter describing our affiliations within the [facility] and educate about their right to choose where referrals are sent. ?? provide a list of Home Health Agencies / Durable Medical Equipment vendors which serve their preferred geographic area. ?? provided patient with [facility] Star Quality Rating handout. They have requested referrals to: [facility] For RN & OT [address] [facility] [address] PHONE: [phone] FAX: [phone] Note routed to a Plumbing Engineer who will communicate referrals to facilities and provide any required information. Transportation: no concerns Transportation Anticipated: family or friend will provide Concerns to be Addressed: discharge planning Assessment: Patient is admitted to ACS service for Pain Plan: Patient will require test to determine pain issues. When med ready she will discharge home with brother and support of [facility]. A member of the Care Management team will continue to monitor progress, follow for continuity of care and assist with transition of care planning. Aria Shultz RN, BSN Case Management ED Triage - Ellen Stauffer RN - 09/02/2021 3:52 PM EDT HPI (Adult) Stated Reason for Visit: recent abd abcess with surgery, no with signifiant abd pain, reported melody discharge from wound in abd, denies fever documented in this encounter Plan of Treatment Upcoming Encounters Date Type Specialty Care Team Description 09/30/2021 Office Visit General Surgery Paloma Mota, [facility] GENERAL SURGERY [place], [place] [address] (Wo rk) 09/30/2021 Office Visit Infectious Diseases Werner Harrell MD [facility]ICAL [facility] INFECTIOUS DISEA [place], [place] [address] (Wo rk) Scheduled Referrals Name [...] POC Glucose 175 65 - 199 OLGA NAVEEN mg/dL [facility] Comment: Supplemental ranges: <140 mg/dL before meals <180 mg/dL all other times of the day Specimen Anatomical Collection Method Collection Time Receive d Time (Source) Location / / Volume Laterality Blood 09/19/2021 10:54 09/19/2021 AM EDT 10:54 AM EDT Gabriel Daniel MD POINT OF CARE TEST ORDERABLE S Performing Organization Address City/[facility]/ZIP Code Phon e Number [address] POCT Glucose (09/19/2021 7:52 AM EDT) athologist Signature POC Glucose 108 65 - 199 OL[place] HERNANDEZNAVEEN mg/dL [facility] Comment: Supplemental ranges: <140 mg/dL before meals <180 mg/dL all other times of the day Specimen Anatomical Collection Method Collection Time Receive d Time (Source) Location / / Volume Laterality Blood 09/19/2021 7:52 AM 2 7:52 EDT AM EDT Gabriel Daniel MD POINT OF CARE TEST ORDERABLE S Performing Organization Address City[facility]/ZIP Code Phon e Number [address] POCT Glucose (09/18/2021 8:41 PM EDT) athologist Signature POC Glucose 184 65 - 199 OL[place] HERNANDEZNAVEEN mg/dL [facility] Comment: Supplemental ranges: <140 mg/dL before meals <180 mg/dL all other times of the day Specimen Anatomical Collection Method Collection Time Receive d Time (Source) Location / / Volume Laterality Blood 09/18/2021 8:41 PM 2 8:41 EDT PM EDT Gabriel Daniel MD POINT OF CARE TEST ORDERABLE S Performing Organization Address City[facility]/ZIP [place] [address] POCT Glucose (09/18/2021 5:46 PM EDT) athologist Signature POC Glucose 135 65 - 199 [place] HERNANDEZNAVEEN mg/dL [facility] Comment: Supplemental ranges: <140 mg/dL before meals <180 mg/dL all other times of the day Specimen Anatomical Collection Method Collection Time Receive d Time (Source) Location / / Volume Laterality Blood 09/18/2021 5:46 PM 2 5:46 EDT PM EDT Gabriel Daniel MD POINT OF CARE TEST ORDERABLE S Performing Organization Address City/State/ZIP Code Phon e Number [address] POCT Glucose (09/18/2021 12:42 PM EDT) athologist Signature POC Glucose 133 65 - 199 OL[place] NAVEEN mg/dL [facility] Comment: Supplemental ranges: <140 mg/dL before meals <180 mg/dL all other times of the day Specimen Anatomical Collection Method Collection Time Receive d Time (Source) Location / / Volume Laterality Blood 09/18/2021 12:42 09/18/2021 PM EDT 12:42 PM EDT Gabriel Daniel MD POINT OF CARE TEST ORDERABLE S Performing Organization Address [facility]/ZIP Code Phon e Number [address] POCT Glucose (09/18/2021 8:31 AM EDT) athologist Signature POC Glucose 109 65 - 199 OL[place] NAVEEN mg/dL [facility] Comment: Supplemental ranges: <140 mg/dL before meals <180 mg/dL all other times of the day Specimen Anatomical Collection Method Collection Time Receive d Time (Source) Location / / Volume Laterality Blood 09/18/2021 8:31 AM 2 8:31 EDT AM EDT Gabriel Daniel MD POINT OF CARE TEST ORDERABLE S Performing Organization Address [facility]/[place] [address] POCT Glucose (09/17/2021 8:57 PM EDT) athologist Signature POC Glucose 155 65 - 199 OLGA NAVEEN mg/dL [facility] Comment: Supplemental ranges: <140 mg/dL before meals <180 mg/dL all other times of the day Specimen Anatomical Collection Method Collection Time Receive d Time (Source) Location / / Volume Laterality Blood 09/17/2021 8:57 PM 2 8:57 EDT PM EDT Gabriel Daniel MD POINT OF CARE TEST ORDERABLE S Performing Organization Address City/State/[place] [address] (ABNORMAL) POCT Glucose (09/17/2021 3:29 PM EDT) athologist Signature POC Glucose 225 (H) 65 - 199 OL[place] NAVEEN mg/dL [facility] Comment: Supplemental ranges: <140 mg/dL before meals <180 mg/dL all other times of the day Specimen Anatomical Collection Method Collection Time Receive d Time (Source) Location / / Volume Laterality Blood 09/17/2021 3:29 PM 3:29 EDT PM EDT Gabriel Daniel MD POINT OF CARE TEST ORDERABLE S Performing Organization Address [facility]/[place] [address] POCT Glucose (09/17/2021 11:07 AM EDT) athologist Signature POC Glucose 156 65 - 199 OL[place] NAVEEN mg/dL [facility] Comment: Supplemental ranges: <140 mg/dL before meals <180 mg/dL all other times of the day Specimen Anatomical Collection Method Collection Time Receive d Time (Source) Location / / Volume Laterality Blood 09/17/2021 11:07 09/17/2021 AM EDT 11:07 AM EDT Gabriel Daniel MD POINT OF CARE TEST ORDERABLE S Performing Organization Address City/State/[place] [address] POCT Glucose (09/17/2021 6:42 AM EDT) athologist Signature POC Glucose 135 65 - 199 OL[place] NAVEEN mg/dL [facility] Comment: Supplemental ranges: <140 mg/dL before meals <180 mg/dL all other times of the day Specimen Anatomical Collection Method Collection Time Receive d Time (Source) Location / / Volume Laterality Blood 09/17/2021 6:42 AM 6:42 EDT AM EDT Gabriel Daniel MD POINT OF CARE TEST ORDERABLE S Performing Organization Address City/State/[place] [address] [facility] [address] POCT Glucose (09/16/2021 9:04 PM EDT) athologist Signature POC Glucose 154 65 - 199 [place] HERNANDEZNAVEEN mg/dL [facility] Comment: Supplemental ranges: <140 mg/dL before meals <180 mg/dL all other times of the day Specimen Anatomical Collection Method Collection Time Receive d Time (Source) Location / / Volume Laterality Blood 09/16/2021 9:04 PM 2 9:04 EDT PM EDT Ai Arriaza MD POINT OF CARE TEST ORDERABLE S Performing Organization Address City/State/ZIP Code Phon e Number [address] POCT Glucose (09/16/2021 4:31 PM EDT) athologist Signature POC Glucose 155 65 - 199 [place] HERNANDEZNAVEEN mg/dL [facility] Comment: Supplemental ranges: <140 mg/dL before meals <180 mg/dL all other times of the day Specimen Anatomical Collection Method Collection Time Receive d Time (Source) Location / / Volume Laterality Blood 09/16/2021 4:31 PM 2 4:31 EDT PM EDT Ai Arriaza MD POINT OF CARE TEST ORDERABLE S Performing Organization Address City/State/ZIP Code Phon e Number [place] [id number] [facility] [address] POCT Glucose (09/16/2021 11:45 AM EDT) athologist Signature POC Glucose 133 65 - 199 OL[place] NAVEEN mg/dL [facility] Comment: Supplemental ranges: <140 mg/dL before meals <180 mg/dL all other times of the day Specimen Anatomical Collection Method Collection Time Receive d Time (Source) Location / / Volume Laterality Blood 09/16/2021 11:45 09/16/2021 AM EDT 11:45 AM EDT Ai Arriaza MD POINT OF CARE TEST ORDERABLE S Performing Organization Address City/State/ZIP Code Phon e Number [address] POCT Glucose (09/16/2021 7:01 AM EDT) athologist Signature POC Glucose 125 65 - 199 OL[place] NAVEEN mg/dL [facility] Comment: Supplemental ranges: <140 mg/dL before meals <180 mg/dL all other times of the day Specimen Anatomical Collection Method Collection Time Receive d Time (Source) Location / / Volume Laterality Blood 09/16/2021 7:01 AM 2 7:01 EDT AM EDT Ai Arriaza MD POINT OF CARE TEST ORDERABLE S Performing Organization Address City/State/ZIP Code Phon e Number [address] POCT Glucose (09/15/2021 9:24 PM EDT) athologist Signature POC Glucose 139 65 - 199 [place]VEEN mg/dL [facility] Comment: Supplemental ranges: <140 mg/dL before meals <180 mg/dL all other times of the day Specimen Anatomical Collection Method Collection Time Receive d Time (Source) Location / / Volume Laterality Blood 09/15/2021 9:24 PM 2 9:24 EDT PM EDT Ai Arriaza MD POINT OF CARE TEST ORDERABLE S Performing Organization Address City/State/ZIP Code Phon e Number [address] POCT Glucose (09/15/2021 3:45 PM EDT) athologist Signature POC Glucose 186 65 - 199 [place] NAVEEN mg/dL [facility] Comment: Supplemental ranges: <140 mg/dL before meals <180 mg/dL all other times of the day Specimen Anatomical Collection Method Collection Time Receive d Time (Source) Location / / Volume Laterality Blood 09/15/2021 3:45 PM 2 3:45 EDT PM EDT Ai Arriaza MD POINT OF CARE TEST ORDERABLE S Performing Organization Address City/State/Z[place] [address] POCT Glucose (09/15/2021 11:29 AM EDT) athologist Signature POC Glucose 145 65 - 199 [place] HERNANDEZNAVEEN mg/dL [facility] Comment: Supplemental ranges: <140 mg/dL before meals <180 mg/dL all other times of the day Specimen Anatomical Collection Method Collection Time Receive d Time (Source) Location / / Volume Laterality Blood 09/15/2021 11:29 09/15/2021 AM EDT 11:29 AM EDT Ai Arriaza MD POINT OF CARE TEST ORDERABLE S Performing Organization Address City/State/Z[place] [address] POCT Glucose (09/15/2021 7:44 AM EDT) athologist Signature POC Glucose 107 65 - 199 [place] HERNANDEZNAVEEN mg/dL [facility] Comment: Supplemental ranges: <140 mg/dL before meals <180 mg/dL all other times of the day Specimen Anatomical Collection Method Collection Time Receive d Time (Source) Location / / Volume Laterality Blood 09/15/2021 7:44 AM 7:44 EDT AM EDT Ai Arriaza MD POINT OF CARE TEST ORDERABLE S Performing Organization Address City/State/[place] [address] POCT Glucose (09/14/2021 9:23 PM EDT) athologist Signature POC Glucose 177 65 - 199 OL[place] NAVEEN mg/dL [facility] Comment: Supplemental ranges: <140 mg/dL before meals <180 mg/dL all other times of the day Specimen Anatomical Collection Method Collection Time Receive d Time (Source) Location / / Volume Laterality Blood 09/14/2021 9:23 PM 9:23 EDT PM EDT Ai Arriaza MD POINT OF CARE TEST ORDERABLE S Performing Organization Address City/State/Z[place] [address] (ABNORMAL) POCT Glucose (09/14/2021 4:28 PM EDT) athologist Signature POC Glucose 231 (H) 65 - 199 OL[place] NAVEEN mg/dL [facility] Comment: Supplemental ranges: <140 mg/dL before meals <180 mg/dL all other times of the day Specimen Anatomical Collection Method Collection Time Receive d Time (Source) Location / / Volume Laterality Blood 09/14/2021 4:28 PM 2 4:28 EDT PM EDT Ai Arriaza MD POINT OF CARE TEST ORDERABLE S Performing Organization Address City/State/Z[place] [address] POCT Glucose (09/14/2021 11:56 AM EDT) athologist Signature POC Glucose 160 65 - 199 [place] NAVEEN mg/dL [facility] Comment: Supplemental ranges: <140 mg/dL before meals <180 mg/dL all other times of the day Specimen Anatomical Collection Method Collection Time Receive d Time (Source) Location / / Volume Laterality Blood 09/14/2021 11:56 09/14/2021 AM EDT 11:56 AM EDT Ai Arriaza MD POINT OF CARE TEST ORDERABLE S Performing Organization Address City/State/ZIP Code Phon e Number [address] POCT Glucose (09/14/2021 7:58 AM EDT) athologist Signature POC Glucose 171 65 - 199 [place] NAVEEN mg/dL [facility] Comment: Supplemental ranges: <140 mg/dL before meals <180 mg/dL all other times of the day Specimen Anatomical Collection Method Collection Time Receive d Time (Source) Location / / Volume Laterality Blood 09/14/2021 7:58 AM 2 7:58 EDT AM EDT Ai Arriaza MD POINT OF CARE TEST ORDERABLE S Performing Organization Address City/State/ZIP [place] [address] POCT Glucose (09/13/2021 10:30 PM EDT) athologist Signature POC Glucose 167 65 - 199 [place] HERNANDEZNAVEEN mg/dL [facility] Comment: Supplemental ranges: <140 mg/dL before meals <180 mg/dL all other times of the day Specimen Anatomical Collection Method Collection Time Receive d Time (Source) Location / / Volume Laterality Blood 09/13/2021 10:30 09/13/2021 PM EDT 10:30 PM EDT Ai Arriaza MD POINT OF CARE TEST ORDERABLE S Performing Organization Address City/State/ZIP Code Phon e Number [address] POCT Glucose (09/13/2021 3:37 PM EDT) athologist Signature POC Glucose 124 65 - 199 [facility] Comment: Supplemental ranges: <140 mg/dL before meals <180 mg/dL all other times of the day Specimen Anatomical Collection Method Collection Time Receive d Time (Source) Location / / Volume Laterality Blood 09/13/2021 3:37 PM 3:37 EDT PM EDT Ai Arriaza MD POINT OF CARE TEST ORDERABLE S Performing Organization Address City/State/Z[place] [address] POCT Glucose (09/13/2021 11:55 AM EDT) athologist Signature POC Glucose 118 65 - 199 OL[place] NAVEEN mg/dL [facility] Comment: Supplemental ranges: <140 mg/dL before meals <180 mg/dL all other times of the day Specimen Anatomical Collection Method Collection Time Receive d Time (Source) Location / / Volume Laterality Blood 09/13/2021 11:55 09/13/2021 AM EDT 11:55 AM EDT Ai Arriaza MD POINT OF CARE TEST ORDERABLE S Performing Organization Address City/State/ZIP Code Phon e Number [address] POCT Glucose (09/13/2021 7:38 AM EDT) athologist Signature POC Glucose 116 65 - 199 [place] NAVEEN mg/dL [facility] Comment: Supplemental ranges: <140 mg/dL before meals <180 mg/dL all other times of the day Specimen Anatomical Collection Method Collection Time Receive d Time (Source) Location / / Volume Laterality Blood 09/13/2021 7:38 AM 2 7:38 EDT AM EDT Ai Arriaza MD POINT OF CARE TEST ORDERABLE S Performing Organization Address City/State/ZIP Code Phon e Number [address] POCT Glucose (09/12/2021 8:37 PM EDT) athologist Signature POC Glucose 131 65 - 199 [place] NAVEEN mg/dL [facility] Comment: Supplemental ranges: <140 mg/dL before meals <180 mg/dL all other times of the day Specimen Anatomical Collection Method Collection Time Receive d Time (Source) Location / / Volume Laterality Blood 09/12/2021 8:37 PM 2 8:37 EDT PM EDT Ai Arriaza MD POINT OF CARE TEST ORDERABLE S Performing Organization Address City/State/Z[place] [address] POCT Glucose (09/12/2021 4:50 PM EDT) athologist Signature POC Glucose 183 65 - 199 [place] NAVEEN mg/dL [facility] Comment: Supplemental ranges: <140 mg/dL before meals <180 mg/dL all other times of the day Specimen Anatomical Collection Method Collection Time Receive d Time (Source) Location / / Volume Laterality Blood 09/12/2021 4:50 PM 2 4:50 EDT PM EDT Ai Arriaza MD POINT OF CARE TEST ORDERABLE S Performing Organization Address City/State/ZIP Code Phon e Number [address] POCT Glucose (09/12/2021 11:44 AM EDT) athologist Signature POC Glucose 128 65 - 199 [place] NAVEEN mg/dL [facility] Comment: Supplemental ranges: <140 mg/dL before meals <180 mg/dL all other times of the day Specimen Anatomical Collection Method Collection Time Receive d Time (Source) Location / / Volume Laterality Blood 09/12/2021 11:44 09/12/2021 AM EDT 11:44 AM EDT Ai Arriaza MD POINT OF CARE TEST ORDERABLE S Performing Organization Address City/State/Z[place] [address] POCT Glucose (09/12/2021 8:01 AM EDT) athologist Signature POC Glucose 116 65 - 199 [place] NAVEEN mg/dL [facility] Comment: Supplemental ranges: <140 mg/dL before meals <180 mg/dL all other times of the day Specimen Anatomical Collection Method Collection Time Receive d Time (Source) Location / / Volume Laterality Blood 09/12/2021 8:01 AM 2 8:01 EDT AM EDT Ai Arriaza MD POINT OF CARE TEST ORDERABLE S Performing Organization Address City/State/Z[place] [address] (ABNORMAL) POCT Glucose (09/11/2021 9:01 PM EDT) athologist Signature POC Glucose 218 (H) 65 - 199 [place] NAVEEN mg/dL [facility] Comment: Supplemental ranges: <140 mg/dL before meals <180 mg/dL all other times of the day Specimen Anatomical Collection Method Collection Time Receive d Time (Source) Location / / Volume Laterality Blood 09/11/2021 9:01 PM 2 9:01 EDT PM EDT Ai Arriaza MD POINT OF CARE TEST ORDERABLE S Performing Organization Address City/State/Z[place] [address] POCT Glucose (09/11/2021 4:22 PM EDT) athologist Signature POC Glucose 137 65 - 199 [place] NAVEEN mg/dL [facility] Comment: Supplemental ranges: <140 mg/dL before meals <180 mg/dL all other times of the day Specimen Anatomical Collection Method Collection Time Receive d Time (Source) Location / / Volume Laterality Blood 09/11/2021 4:22 PM 2 4:22 EDT PM EDT Joshua Che MD POINT OF CARE TEST ORDERABLE S Performing Organization Address City/State/ZIP [place] [address] POCT Glucose (09/11/2021 12:06 PM EDT) athologist Signature POC Glucose 163 65 - 199 [place] HER[place]NAVEEN mg/dL [facility] Comment: Supplemental ranges: <140 mg/dL before meals <180 mg/dL all other times of the day Specimen Anatomical Collection Method Collection Time Receive d Time (Source) Location / / Volume Laterality Blood 09/11/2021 12:06 09/11/2021 PM EDT 12:06 PM EDT Joshua hCe MD POINT OF CARE TEST ORDERABLE S Performing Organization Address City/State/Z[place] [address] POCT Glucose (09/11/2021 7:18 AM EDT) athologist Signature POC Glucose 141 65 - 199 OL[place] NAVEEN mg/dL [facility] Comment: Supplemental ranges: <140 mg/dL before meals <180 mg/dL all other times of the day Specimen Anatomical Collection Method Collection Time Receive d Time (Source) Location / / Volume Laterality Blood 09/11/2021 7:18 AM 2 7:18 EDT AM EDT Joshua Che MD POINT OF CARE TEST ORDERABLE S Performing Organization Address City/State/Z[place] [address] POCT Glucose (09/10/2021 9:38 PM EDT) athologist Signature POC Glucose 199 65 - 199 [place] NAVEEN mg/dL [facility] Comment: Supplemental ranges: <140 mg/dL before meals <180 mg/dL all other times of the day Specimen Anatomical Collection Method Collection Time Receive d Time (Source) Location / / Volume Laterality Blood 09/10/2021 9:38 PM 2 9:38 EDT PM EDT Joshua Che MD POINT OF CARE TEST ORDERABLE S Performing Organization Address City/State/Z[place] [address] POCT Glucose (09/10/2021 6:43 PM EDT) athologist Signature POC Glucose 149 65 - 199 [place] mg/dL [facility] Comment: Supplemental ranges: <140 mg/dL before meals <180 mg/dL all other times of the day Specimen Anatomical Collection Method Collection Time Receive d Time (Source) Location / / Volume Laterality Blood 09/10/2021 6:43 PM 2 6:43 EDT PM EDT Joshua Che MD POINT OF CARE TEST ORDERABLE S Performing Organization Address City/State/ZIP Code Phon e Number [address] POCT Glucose (09/10/2021 11:33 AM EDT) athologist Signature POC Glucose 125 65 - 199 [facility] mg/dL [facility] Comment: Supplemental ranges: <140 mg/dL before meals <180 mg/dL all other times of the day Specimen Anatomical Collection Method Collection Time Receive d Time (Source) Location / / Volume Laterality Blood 09/10/2021 11:33 09/10/2021 AM EDT 11:33 AM EDT Joshua Che MD POINT OF CARE TEST ORDERABLE S Performing Organization Address City/State/[place] [address] POCT Glucose (09/10/2021 7:29 AM EDT) athologist Signature POC Glucose 126 65 - 199 [place] mg/dL [facility] Comment: Supplemental ranges: <140 mg/dL before meals <180 mg/dL all other times of the day Specimen Anatomical Collection Method Collection Time Receive d Time (Source) Location / / Volume Laterality Blood 09/10/2021 7:29 AM 2 7:29 EDT AM EDT Joshua Che MD POINT OF CARE TEST ORDERABLE S Performing Organization Address City/State/ZIP [place] [address] (ABNORMAL) POCT Glucose (09/09/2021 8:11 PM EDT) athologist Signature POC Glucose 221 (H) 65 - 199 [place] mg/dL [facility] Comment: Supplemental ranges: <140 mg/dL before meals <180 mg/dL all other times of the day Specimen Anatomical Collection Method Collection Time Receive d Time (Source) Location / / Volume Laterality Blood 09/09/2021 8:11 PM 2 8:11 EDT PM EDT Joshua Che MD POINT OF CARE TEST ORDERABLE S Performing Organization Address City/State/ZIP [place] [address] POCT Glucose (09/09/2021 3:50 PM EDT) athologist Signature POC Glucose 165 65 - 199 [place] mg/dL [facility] Comment: Supplemental ranges: <140 mg/dL before meals <180 mg/dL all other times of the day Specimen Anatomical Collection Method Collection Time Receive d Time (Source) Location / / Volume Laterality Blood 09/09/2021 3:50 PM 2 3:50 EDT PM EDT Joshua Che MD POINT OF CARE TEST ORDERABLE S Performing Organization Address City/State/ZIP [place] [address] POCT Glucose (09/09/2021 11:49 AM EDT) athologist Signature POC Glucose 121 65 - 199 [place] mg/dL [facility] Comment: Supplemental ranges: <140 mg/dL before meals <180 mg/dL all other times of the day Specimen Anatomical Collection Method Collection Time Receive d Time (Source) Location / / Volume Laterality Blood 09/09/2021 11:49 09/09/2021 AM EDT 11:49 AM EDT Negro Watters MD POINT OF CARE TEST ORDERABLE S Performing Organization Address City/State/Z[place] [address] POCT Glucose (09/09/2021 7:11 AM EDT) athologist Signature POC Glucose 117 65 - 199 [place] mg/dL [facility] Comment: Supplemental ranges: <140 mg/dL before meals <180 mg/dL all other times of the day Specimen Anatomical Collection Method Collection Time Receive d Time (Source) Location / / Volume Laterality Blood 09/09/2021 7:11 AM 2 7:11 EDT AM EDT Authorizing Provider Result Kim Watters MD POINT OF CARE TEST ORDERABLE S Performing Organization Address City/State/ZIP [place] [address] POCT Glucose (09/08/2021 8:36 PM EDT) athologist Signature POC Glucose 175 65 - 199 [place] mg/dL [facility] Comment: Supplemental ranges: <140 mg/dL before meals <180 mg/dL all other times of the day Specimen Anatomical Collection Method Collection Time Receive d Time (Source) Location / / Volume Laterality Blood 09/08/2021 8:36 PM 2 8:36 EDT PM EDT Authorizing Provider Result Kim Watters MD POINT OF CARE TEST ORDERABLE S Performing Organization Address City/State/ZIP [place] [address] (ABNORMAL) POCT Glucose (09/08/2021 3:26 PM EDT) athologist Signature POC Glucose 206 (H) 65 - 199 [place] mg/dL [facility] Comment: Supplemental ranges: <140 mg/dL before meals <180 mg/dL all other times of the day Specimen Anatomical Collection Method Collection Time Receive d Time (Source) Location / / Volume Laterality Blood 09/08/2021 3:26 PM 2 3:26 EDT PM EDT Negro Watters MD POINT OF CARE TEST ORDERABLE S Performing Organization Address City/State/ZIP [place] [address] POCT Glucose (09/08/2021 12:01 PM EDT) athologist Signature POC Glucose 142 65 - 199 [place] mg/dL [facility] Comment: Supplemental ranges: <140 mg/dL before meals <180 mg/dL all other times of the day Specimen Anatomical Collection Method Collection Time Receive d Time (Source) Location / / Volume Laterality Blood 09/08/2021 12:01 09/08/2021 PM EDT 12:01 PM EDT Negro Watters MD POINT OF CARE TEST ORDERABLE S Performing Organization Address City/State/ZIP [place] [address] POCT Glucose (09/08/2021 7:57 AM EDT) athologist Signature POC Glucose 137 65 - 199 [place] mg/dL [facility] Comment: Supplemental ranges: <140 mg/dL before meals <180 mg/dL all other times of the day Specimen Anatomical Collection Method Collection Time Receive d Time (Source) Location / / Volume Laterality Blood 09/08/2021 7:57 AM 2 7:57 EDT AM EDT Negro Watters MD POINT OF CARE TEST ORDERABLE S Performing Organization Address City/State/ZIP [place] [address] POCT Glucose (09/07/2021 8:39 PM EDT) athologist Signature POC Glucose 132 65 - 199 [place] mg/dL [facility] Comment: Supplemental ranges: <140 mg/dL before meals <180 mg/dL all other times of the day Specimen Anatomical Collection Method Collection Time Receive d Time (Source) Location / / Volume Laterality Blood 09/07/2021 8:39 PM 2 8:39 EDT PM EDT Negro Watters MD POINT OF CARE TEST ORDERABLE S Performing Organization Address City/State/Z[place] [address] POCT Glucose (09/07/2021 5:26 PM EDT) P athologist Signature POC Glucose 123 65 - 199 [place] mg/dL [facility] Comment: Supplemental ranges: <140 mg/dL before meals <180 mg/dL all other times of the day Specimen Anatomical Collection Method Collection Time Receive d Time (Source) Location / / Volume Laterality Blood 09/07/2021 5:26 PM 2 5:26 EDT PM EDT Negro Watters MD POINT OF CARE TEST ORDERABLE S Performing Organization Address City/[facility]/ZIP [place] [address] POCT Glucose (09/07/2021 12:09 PM EDT) P athologist Signature POC Glucose 117 65 - 199 [place]AVE[place] mg/dL [facility] Comment: Supplemental ranges: <140 mg/dL before meals <180 mg/dL all other times of the day Specimen Anatomical Collection Method Collection Time Receive d Time (Source) Location / / Volume Laterality Blood 09/07/2021 12:09 09/07/2021 PM EDT 12:09 PM EDT Negro Watters MD POINT OF CARE TEST ORDERABLE S Performing Organization Address City/State/ZIP Code Phon e Number [address] POCT Glucose (09/06/2021 8:12 PM EDT) P athologist Signature POC Glucose 174 65 - 199 [place]AVE[place] mg/dL [facility] Comment: Supplemental ranges: <140 mg/dL before meals <180 mg/dL all other times of the day Specimen Anatomical Collection Method Collection Time Receive d Time (Source) Location / / Volume Laterality Blood 09/06/2021 8:12 PM 2 8:12 EDT PM EDT Negro Watters MD POINT OF CARE TEST ORDERABLE S Performing Organization Address City/[facility]/ZIP [place] [address] POCT Glucose (09/06/2021 4:46 PM EDT) athologist Signature POC Glucose 123 65 - 199 [place] mg/dL [facility] Comment: Supplemental ranges: <140 mg/dL before meals <180 mg/dL all other times of the day Specimen Anatomical Collection Method Collection Time Receive d Time (Source) Location / / Volume Laterality Blood 09/06/2021 4:46 PM 2 4:46 EDT PM EDT Negro Watters MD POINT OF CARE TEST ORDERABLE S Performing Organization Address [facility]/ZIP [place] [address] (ABNORMAL) POCT Glucose (09/06/2021 11:28 AM EDT) athologist Signature POC Glucose 202 (H) 65 - 199 [place] mg/dL [facility] Comment: Supplemental ranges: <140 mg/dL before meals <180 mg/dL all other times of the day Specimen Anatomical Collection Method Collection Time Receive d Time (Source) Location / / Volume Laterality Blood 09/06/2021 11:28 09/06/2021 AM EDT 11:28 AM EDT Negro Watters MD POINT OF CARE TEST ORDERABLE S Performing Organization Address City/[facility]/ZIP [place] [address] Phosphorus (09/06/2021 9:09 AM EDT) athologist Signature Phosphorus 4.0 2.5 - 4.5 [facility] mg/dL [facility] Specimen Anatomical Collection Method Collection Time Receive d Time (Source) Location / / Volume Laterality Blood 09/06/2021 9:09 AM 9:22 EDT AM EDT Resulting Agency Comment Spec In Lab Negro Watters MD CHEMISTRY ORDERABLES Performing Organization Address City/State/[place] [address] [facility] [address] Magnesium (09/06/2021 9:09 AM EDT) athologist Signature Magnesium 0.73 0.69 - 1.07 [facility] mmol/L [facility] Specimen Anatomical Collection Method Collection Time Receive d Time (Source) Location / / Volume Laterality Blood 09/06/2021 9:09 AM 9:22 EDT AM EDT Resulting Agency Comment Spec In Lab Negro Watters MD CHEMISTRY ORDERABLES Performing Organization Address City/State/ZIP Code Phon e Number [address] (ABNORMAL) Basic Metabolic Panel (non-fasting) (09/06/2021 9:09 AM EDT) athologist Signature Glucose Lvl 118 65 - 199 [facility] mg/dL [facility] Comment: Diabetes: >=200 mg/dL plus symp toms BUN 23 (H) 8 - 18 mg/dL [facility] Creatinine 0.59 (L) 0.70 - 1.20 mg/dL [facility] Sodium 141 135 - 145 mmol/L [facility] Potassium 4.0 3.5 - 5.0 mmol/L [facility] Comment: Please note: ??Patients with WBC >100,00 0 may have falsely elevated Potassium levels. ??For accurate Potassium quantif ication in these patients send serum separator tube (gold top) for subsequent determinations. ??Contact the Clinical Chemistry Laboratory if there are any qu estions. Chloride 104 98 - 107 mmol/L [facility] CO2 27 22 - 31 mmol/L [facility] Anion Gap 10 5 - 15 mmol/L [facility] Calcium 9.3 8.5 - 10.5 mg/dL [facility] Estimated GFR 104 >=60 mL/min/1.73 m?? [facility] Comment: This patient's estimated GFR [...] Watters MD CHEMISTRY ORDERABLES Performing Organization Address City/[facility]/ZIP [place] [address] POCT Glucose (09/06/2021 7:37 AM EDT) athologist Signature POC Glucose 124 65 - 199 [facility] mg/dL [facility] Comment: Supplemental ranges: <140 mg/dL before meals <180 mg/dL all other times of the day Specimen Anatomical Collection Method Collection Time Receive d Time (Source) Location / / Volume Laterality Blood 09/06/2021 7:37 AM 2 7:37 EDT AM EDT Negro Watters MD POINT OF CARE TEST ORDERABLE S Performing Organization Address City/[facility]/ZIP [place] [address] (ABNORMAL) Phosphorus (09/06/2021 4:33 AM EDT) P athologist Signature Phosphorus 4.6 (H) 2.5 - 4.5 [facility] mg/dL [facility] Comment: result rechecked-sf Specimen Anatomical Collection Method Collection Time Receive d Time (Source) Location / / Volume Laterality Blood 09/06/2021 4:33 AM 2 4:38 EDT AM EDT Resulting Agency Comment Spec In Lab Negro Watters MD CHEMISTRY ORDERABLES Performing Organization Address City/State/ZIP Code Phon e Number [place] [id number] [facility] Drive Magnesium (09/06/2021 4:33 AM EDT) athologist Signature Magnesium 0.76 0.69 - 1.07 [facility] mmol/L [facility] Specimen Anatomical Collection Method Collection Time Receive d Time (Source) Location / / Volume Laterality Blood 09/06/2021 4:33 AM 4:38 EDT AM EDT Resulting Agency Comment Spec In Lab Negro Watters MD CHEMISTRY ORDERABLES Performing Organization Address City/State/ZIP Code Phon e Number [address] (ABNORMAL) Basic Metabolic Panel (non-fasting) (09/06/2021 4:33 AM EDT) athologist Signature Glucose Lvl 114 65 - 199 [facility] mg/dL [facility] Comment: Diabetes: >=200 mg/dL plus symp toms BUN 24 (H) 8 - 18 mg/dL [facility] Comment: result rechecked-sf Creatinine 0.62 (L) 0.70 - 1.20 mg/dL [facility] Sodium 140 135 - 145 mmol/L [facility] Potassium 3.7 3.5 - 5.0 mmol/L [facility] Comment: Please note: ??Patients with WBC >100,00 0 may have falsely elevated Potassium levels. ??For accurate Potassium quantif ication in these patients send serum separator tube (gold top) for subsequent determinations. ??Contact the Clinical Chemistry Laboratory if there are any qu estions. Chloride 104 98 - 107 mmol/L [facility] CO2 25 22 - 31 mmol/L [facility] Anion Gap 11 5 - 15 mmol/L [facility] Calcium 9.5 8.5 - 10.5 mg/dL [facility] Comment: result rechecked-sf Estimated GFR 103 >=60 mL/min/1.73 m?? [facility] Comment: This patient's estimated GFR [...] Watters MD CHEMISTRY ORDERABLES Performing Organization Address City/[facility]/ZIP Code Phon e Number [address] POCT Glucose (09/05/2021 8:03 PM EDT) athologist Signature POC Glucose 138 65 - 199 [facility] mg/dL [facility] Comment: Supplemental ranges: <140 mg/dL before meals <180 mg/dL all other times of the day Specimen Anatomical Collection Method Collection Time Receive d Time (Source) Location / / Volume Laterality Blood 09/05/2021 8:03 PM 2 8:03 EDT PM EDT Negro Watters MD POINT OF CARE TEST ORDERABLE S Performing Organization Address City/State/ZIP [place] [address] POCT Glucose (09/05/2021 4:38 PM EDT) athologist Signature POC Glucose 122 65 - 199 [facility] Comment: Supplemental ranges: <140 mg/dL before meals <180 mg/dL all other times of the day Specimen Anatomical Collection Method Collection Time Receive d Time (Source) Location / / Volume Laterality Blood 09/05/2021 4:38 PM 2 4:38 EDT PM EDT Negro Watters MD POINT OF CARE TEST ORDERABLE S Performing Organization Address City/State/Z[place] [address] POCT Glucose (09/05/2021 11:30 AM EDT) athologist Signature POC Glucose 137 65 - 199 [place] mg/dL [facility] Comment: Supplemental ranges: <140 mg/dL before meals <180 mg/dL all other times of the day Specimen Anatomical Collection Method Collection Time Receive d Time (Source) Location / / Volume Laterality Blood 09/05/2021 11:30 09/05/2021 AM EDT 11:30 AM EDT Negro Watters MD POINT OF CARE TEST ORDERABLE S Performing Organization Address City/State/Z[place] [address] POCT Glucose (09/05/2021 7:15 AM EDT) athologist Signature POC Glucose 188 65 - 199 [place]AVE[place] mg/dL [facility] Comment: Supplemental ranges: <140 mg/dL before meals <180 mg/dL all other times of the day Specimen Anatomical Collection Method Collection Time Receive d Time (Source) Location / / Volume Laterality Blood 09/05/2021 7:15 AM 2 7:15 EDT AM EDT Negro Watters MD POINT OF CARE TEST ORDERABLE S Performing Organization Address City/State/ZIP [place] [address] (ABNORMAL) POCT Glucose (09/04/2021 8:19 PM EDT) athologist Signature POC Glucose 220 (H) 65 - 199 [place]AVEEN mg/dL [facility] Comment: Supplemental ranges: <140 mg/dL before meals <180 mg/dL all other times of the day Specimen Anatomical Collection Method Collection Time Receive d Time (Source) Location / / Volume Laterality Blood 09/04/2021 8:19 PM 2 8:19 EDT PM EDT Negro Watters MD POINT OF CARE TEST ORDERABLE S Performing Organization Address City/State/Z[place] [address] (ABNORMAL) POCT Glucose (09/04/2021 4:19 PM EDT) P athologist Signature POC Glucose 225 (H) 65 - 199 [facility] mg/dL [facility] Comment: Supplemental ranges: <140 mg/dL before meals <180 mg/dL all other times of the day Specimen Anatomical Collection Method Collection Time Receive d Time (Source) Location / / Volume Laterality Blood 09/04/2021 4:19 PM 4:19 EDT PM EDT Negro Watters MD POINT OF CARE TEST ORDERABLE S Performing Organization Address City/State/ZIP Code Phon e Number [address] POCT Glucose (09/04/2021 11:30 AM EDT) athologist Signature POC Glucose 114 65 - 199 [place]AVE[place] mg/dL [facility] Comment: Supplemental ranges: <140 mg/dL before meals <180 mg/dL all other times of the day Specimen Anatomical Collection Method Collection Time Receive d Time (Source) Location / / Volume Laterality Blood 09/04/2021 11:30 09/04/2021 AM EDT 11:30 AM EDT Negro Watters MD POINT OF CARE TEST ORDERABLE S Performing Organization Address City/State/Z[place] [address] POCT Glucose (09/04/2021 7:40 AM EDT) athologist Signature POC Glucose 125 65 - 199 [place]AVE[place] mg/dL [facility] Comment: Supplemental ranges: <140 mg/dL before meals <180 mg/dL all other times of the day Specimen Anatomical Collection Method Collection Time Receive d Time (Source) Location / / Volume Laterality Blood 09/04/2021 7:40 AM 7:40 EDT AM EDT Negro Watters MD POINT OF CARE TEST ORDERABLE S Performing Organization Address City/State/ZIP Code Phon e Number [address] POCT Glucose (09/03/2021 8:36 PM EDT) P athologist Signature POC Glucose 106 65 - 199 [facility] Comment: Supplemental ranges: <140 mg/dL before meals <180 mg/dL all other times of the day Specimen Anatomical Collection Method Collection Time Receive d Time (Source) Location / / Volume Laterality Blood 09/03/2021 8:36 PM 2 8:36 EDT PM EDT Negro Watters MD POINT OF CARE TEST ORDERABLE S Performing Organization Address City/State/ZIP Code Phon e Number [address] POCT Glucose (09/03/2021 4:35 PM EDT) athologist Signature POC Glucose 135 65 - 199 [facility] Comment: Supplemental ranges: <140 mg/dL before meals <180 mg/dL all other times of the day Specimen Anatomical Collection Method Collection Time Receive d Time (Source) Location / / Volume Laterality Blood 09/03/2021 4:35 PM 2 4:35 EDT PM EDT Negro Watters MD POINT OF CARE TEST ORDERABLE S Performing Organization Address City/State/ZIP Code Phon e Number [address] (ABNORMAL) Differential, Automated (09/03/2021 3:29 PM EDT) [facility] gist Method Time Signature Neutrophils % 51.7 % [facility] Neutr Abs (ANC) 4.57 1.70 - [facility] 6.10 [facility] x10(3)/[facility] LABORATORY Lymphocytes % 31.6 % [facility] Lymphocytes Abs 2.8 0.9 - 3.2 [facility] x10(3)/[facility] LABORATORY Monocytes % 7.7 % [facility] Monocyte Abs 0.7 0.3 - 0.9 [facility] x10(3)/[facility] LABORATORY Eosinophils % 7.8 % [facility] Eosinophils Abs 0.7 (H) 0.0 - 0.4 [facility] x10(3)/[facility] LABORATORY Basophils % 0.9 % [facility] Basophils Abs 0.1 0.0 - 0.1 [facility] x10(3)/[facility] LABORATORY Immature Gran % 0.30 % [facility] Comment: Immature granulocytes(IG's)percentage an d absolute count will include metamyelocytes, myelocytes, and promyelo cytes. Blood smears from CBCs yielding IG's will be scanned manually for concor dance. If this scan disagrees with the automated IG or if promyelocytes are not ed, a manual differential will be performed. [place] Gran Abs 0.03 0.00 - 0.04 x10(3)/[facility] MAR Y [facility] LABORATORY Specimen Anatomical Collection Method Collection Time Receive d Time (Source) Location / / Volume Laterality Blood 09/03/2021 3:29 PM 2 4:08 EDT PM EDT Resulting Agency Comment Spec In Lab Rosmery Moreno MD HEMATOLOGY ORDERABLES Performing Organization Address City/State/[place] [address] (ABNORMAL) Hemogram (09/03/2021 3:29 PM EDT) Analysis Performed At Patho logist Time Signature WBC 8.8 4.0 - 9.5 [facility] x10(3)/[facility] LABORATORY RBC 4.05 4.00 - [facility] 5.21 [facility] x10(6)/[facility] LABORATORY Hemoglobin 12.1 11.7 - [facility] 15.5 g/dL [facility] Hematocrit 37.9 35.7 - [facility] 45.8 % [facility] MCV 93.6 82.6 - [facility] 94.4 fL [facility] MCH 29.9 27.1 - [facility] 32.0 pg [facility] MCHC 31.9 31.7 - [place] [facility] 35.0 g/dL [facility] Platelets 296 145 - 357 [facility] LABORATORY RDWSD 48.1 (H) 37.0 - [place] 46.0 [facility] LABORATORY RDWCV 14.1 11.5 - [facility] 14.1 % [facility] MPV 9.8 7.6 - 12.9 [facility] LABORATORY nRBC % Auto 0.0 % [facility] nRBC Abs Auto 0.000 0.000 - [place] 0.000 [facility] x10(3)/[facility] LABORATORY Specimen Anatomical Collection Method Collection Time Receive d Time (Source) Location / / Volume Laterality Blood 09/03/2021 3:29 PM 2 4:08 EDT PM EDT Resulting Agency Comment Spec In Lab Rosmery Moreno MD HEMATOLOGY ORDERABLES Performing Organization Address City/State/ZIP Code Phon e Number [address] (ABNORMAL) Phosphorus (09/03/2021 3:29 PM EDT) P athologist Signature Phosphorus 2.0 (L) 2.5 - 4.5 [facility] Specimen Anatomical Collection Method Collection Time Receive d Time (Source) Location / / Volume Laterality Blood 09/03/2021 3:29 PM 2 4:08 EDT PM EDT Resulting Agency Comment Spec In Lab Jerod Frost MD CHEMISTRY ORDERABLES Performing Organization Address City/State/ZIP Code Phon e Number [address] Magnesium (09/03/2021 3:29 PM EDT) P athologist Signature Magnesium 0.88 0.69 - 1.07 [facility] mmol/L [facility] Specimen Anatomical Collection Method Collection Time Receive d Time (Source) Location / / Volume Laterality Blood 09/03/2021 3:29 PM 2 4:08 EDT PM EDT Resulting Agency Comment Spec In Lab Jerod Frost MD CHEMISTRY ORDERABLES Performing Organization Address City/State/[place] [address] (ABNORMAL) Basic Metabolic Panel (non-fasting) (09/03/2021 3:29 PM EDT) P athologist Signature Glucose Lvl 162 65 - 199 [facility] mg/dL [facility] Comment: Diabetes: >=200 mg/dL plus symp toms BUN 11 8 - 18 mg/dL [facility] Creatinine 0.55 (L) 0.70 - 1.20 mg/dL [facility] Sodium 139 135 - 145 mmol/L [facility] Potassium 3.5 3.5 - 5.0 mmol/L [facility] Comment: Please note: ??Patients with WBC >100,00 0 may have falsely elevated Potassium levels. ??For accurate Potassium quantif ication in these patients send serum separator tube (gold top) for subsequent determinations. ??Contact the Clinical Chemistry Laboratory if there are any qu estions. Chloride 104 98 - 107 mmol/L [facility] CO2 24 22 - 31 mmol/L [facility] Anion Gap 11 5 - 15 mmol/L [facility] Calcium 8.4 (L) 8.5 - 10.5 mg/dL [facility] Estimated GFR 106 >=60 mL/min/1.73 m?? [facility] Comment: This patient's estimated GFR [...] Organization Address City/State/ZIP Code Phon e Number [address] POCT Glucose (09/03/2021 12:29 PM EDT) athologist Signature POC Glucose 128 65 - 199 [place] mg/dL [facility] Comment: Supplemental ranges: <140 mg/dL before meals <180 mg/dL all other times of the day Specimen Anatomical Collection Method Collection Time Receive d Time (Source) Location / / Volume Laterality Blood 09/03/2021 12:29 09/03/2021 PM EDT 12:29 PM EDT Jerod Frost MD POINT OF CARE TEST ORDERABLE S Performing Organization Address City/[facility]/ZIP [place] [address] POCT Glucose (09/03/2021 7:36 AM EDT) athologist Signature POC Glucose 129 65 - 199 [facility] mg/dL [facility] Comment: Supplemental ranges: <140 mg/dL before meals <180 mg/dL all other times of the day Specimen Anatomical Collection Method Collection Time Receive d Time (Source) Location / / Volume Laterality Blood 09/03/2021 7:36 AM 2 7:36 EDT AM EDT Jerod Frost MD POINT OF CARE TEST ORDERABLE S Performing Organization Address City/State/[place] [address] (ABNORMAL) Basic Metabolic Panel (non-fasting) (09/03/2021 1:24 AM EDT) athologist Signature Glucose Lvl 150 65 - 199 [facility] Comment: Diabetes: >=200 mg/dL plus symp toms BUN 15 8 - 18 mg/dL [facility] Creatinine 0.58 (L) 0.70 - 1.20 mg/dL [facility] Sodium 139 135 - 145 mmol/L [facility] Potassium 2.9 (Critical) 3.5 - 5.0 mmol/L [facility] Comment: Called by: ray, Read back by: glenn barry, Date/Time:09/03/21 02:07. Please note: ??Patients with WBC >100,00 0 may have falsely elevated Potassium levels. ??For accurate Potassium quantif ication in these patients send serum separator tube (gold top) for subsequent determinations. ??Contact the Clinical Chemistry Laboratory if there are any qu estions. Chloride 100 98 - 107 mmol/L [facility] CO2 29 22 - 31 mmol/L [facility] Anion Gap 10 5 - 15 mmol/L [facility] Calcium 8.7 8.5 - 10.5 mg/dL [facility] Estimated GFR 104 >=60 mL/min/1.73 m?? [facility] Comment: This patient's estimated GFR [...] Organization Address City/State/[place] [address] (ABNORMAL) Urinalysis Microscopic Exam (09/02/2021 10:30 PM EDT) P athologist Signature RBC UA 5 (H) 0 - 4 /HPF [facility] WBC UA 9 (H) 0 - 5 /HPF [facility] Squam Epith UA 3 <=4 /HPF [facility] Hyaline Cast 7 (H) 0 - 2 /LPF [facility] Specimen Anatomical Collection Method Collection Time Receive d Time (Source) Location / / Volume Laterality Clean Catch 09/02/2021 10:30 09/02/2021 Urine PM EDT 11:00 PM EDT Resulting Agency Comment Spec In Lab Charly Agrawal MD URINE ORDERABLES Performing Organization Address City/State/[place] [address] (ABNORMAL) Urinalysis with reflex Culture (09/02/2021 10:30 PM EDT) Patholo gist Method Time Signature Glucose UA Negative Negative [facility] mg/dL [facility] Protein UA Trace (A) Negative [facility] mg/dL [facility] Bilirubin UA Negative Negative [facility] mg/dL [facility] Comment: Clinical correlation required for positi ve Urine Bilirubin results as false positive may occur with some drugs and d rug related products. If a false positive is suspected a serum total bili herring should be considered if clinically indicated. Urobilinogen UA Normal Normal mg/dL [facility] pH UA 6.0 5.0 - 8.0 [facility] Blood UA Negative Negative mg/dL [facility] Ketones UA Negative Negative mg/dL [facility] Nitrite UA Negative Negative [facility] Leukocytes UA Trace (A) Negative [facility] LABORATORY Appearance UA Clear Clear [facility] Spec Jackson UA >=1.030 (A) 1.005 - 1.030 [facility] Color UA Yellow Yellow [facility] Culture Reflexed No [facility] Specimen Anatomical Collection Method Collection Time Receive d Time (Source) Location / / Volume Laterality Clean Catch 09/02/2021 10:30 09/02/2021 Urine PM EDT 11:00 PM EDT Resulting Agency Comment Spec In Lab Jerod Frost MD URINE ORDERABLES Performing Organization Address City/State/ZIP Code Phon e Number [address] POCT Glucose (09/02/2021 10:10 PM EDT) P athologist Signature POC Glucose 163 65 - 199 [facility] Comment: Supplemental ranges: <140 mg/dL before meals <180 mg/dL all other times of the day Specimen Anatomical Collection Method Collection Time Receive d Time (Source) Location / / Volume Laterality Blood 09/02/2021 10:10 09/02/2021 PM EDT 10:10 PM EDT Jerod Frost MD POINT OF CARE TEST ORDERABLE S Performing Organization Address City/State/[place] [address] COVID-19 PCR (09/02/2021 9:31 PM EDT) Patholo gist Method Time Signature SARS-CoV-2 Not Detected Not Detected [facility] RNA PCR [facility] Comment: This result should be interpreted [...] using the Simplexa COVID-19 Direct Assay by Oncimmuneu vicente as authorized by the FDA issued Emergency [...] Department of Pathology and Laboratory Medicine at [facility], certified under the Clinical Laboratory Improvement Amendmen [...] fact sheets at the following FDA website: https://www.fda.gov/medical-devices/kizcqtnmocy-gvunizc-5557-vacit-89-ovpynhogs- rzk-hkppsorvyqezir-ffqeudh-devices/ryaaq-fpdrkokhsuq-gksb SARS-CoV-2 Source ORDER SELECTOR Swab [facility] Specimen (Source) Anatomical Collection Method Collection Time Re ceived Time Location / / Volume Laterality Nasopharyngeal Swab 09/02/2021 9:31 09/02 PM EDT 10:05 PM EDT Comment: Symptoms->Surveillance Resulting Agency Comment Spec In Lab Ten Delong MD MICROBIOLOGY - GENERAL ORDER ARLEY Performing Organization Address City/State/ZIP Code [place] [address] Blood culture (09/02/2021 7:30 PM EDT) [facility] gist Method Time Signature Blood Culture No growth [facility] HODGE at 5 days. [facility] Specimen Anatomical Collection Method Collection Time Receive d Time (Source) Location / / Volume Laterality Blood 09/02/2021 7:30 PM 2 8:05 EDT PM EDT Comment: Right AC Resulting Agency Comment Spec In Lab Shira Mcclelland MD MICROBIOLOGY - BLOOD ORDERAB LES Performing Organization Address City/State/ZIP [place] [address] Abdomen & Pelvis [...] who have questions please contact the health student career development specialist that requested your imaging first. ? Narrative [...] ho have questions please contact the health student career development specialist that requested your imaging first. Shira Mcclelland MD IMG CT ORDERABLES Blood culture (09/02/2021 5:08 PM EDT) Patholo gist Method Time Signature Blood Culture No growth [facility] HODGE at 5 days. [facility] Specimen Anatomical Collection Method Collection Time Receive d Time (Source) Location / / Volume Laterality Blood 09/02/2021 5:08 PM 5:23 EDT PM EDT Comment: l ac Resulting Agency Comment Spec In Lab Shira Mcclelland MD MICROBIOLOGY - BLOOD ORDERAB LES Performing Organization Address City/[facility]/ZIP [place] [address] Phosphorus (09/02/2021 5:07 PM EDT) athologist Signature Phosphorus 2.9 2.5 - 4.5 [place] [facility] mg/dL [facility] Specimen Anatomical Collection Method Collection Time Receive d Time (Source) Location / / Volume Laterality Blood Venous Draw / 09/02/2021 5:07 PM 09/03/19 22 5:29 Unknown EDT PM EDT Resulting Agency Comment Spec In Lab Charly Agrawal MD CHEMISTRY ORDERABLES Performing Organization Address City/[facility]/ZIP [place] [address] (ABNORMAL) Magnesium (09/02/2021 5:07 PM EDT) P athologist Signature Magnesium 0.65 (L) 0.69 - 1.07 [place] mmol/L [facility] Specimen Anatomical Collection Method Collection Time Receive d Time (Source) Location / / Volume Laterality Blood Venous Draw / 09/02/2021 5:07 PM 09/03/19 22 5:29 Unknown EDT PM EDT Resulting Agency Comment Spec In Lab Charly Agrawal MD CHEMISTRY ORDERABLES Performing Organization Address City/[facility]/ZIP Code Phon e Number [place] Scan, Peripheral Blood (09/02/2021 5:07 PM EDT) [facility] Method Time Signature Plat Estimate Increased [facility] RBC Morphology Normal [facility] Specimen Anatomical Collection Method Collection Time Receive d Time (Source) Location / / Volume Laterality Blood 09/02/2021 5:07 PM 5:23 EDT PM EDT Resulting Agency Comment Spec In Lab Demetrius ROMAN HEMATOLOGY ORDERABLES Performing Organization Address City/State/ZIP Code Phon e Number [address] (ABNORMAL) Differential, Automated (09/02/2021 5:07 PM EDT) [facility] [employer] Method Time Signature Neutrophils % 63.0 % [facility] Neutr Abs (ANC) 10.53 (H) 1.70 - [facility] 6.10 [facility] x10(3)/[facility] LABORATORY Lymphocytes % 24.8 % [facility] Lymphocytes Abs 4.2 (H) 0.9 - 3.2 [facility] x10(3)/[facility] LABORATORY Monocytes % 7.0 % [facility] Monocyte Abs 1.2 (H) 0.3 - 0.9 [facility] x10(3)/[facility] LABORATORY Eosinophils % 3.9 % [facility] Eosinophils Abs 0.7 (H) 0.0 - 0.4 [facility] x10(3)/[facility] LABORATORY Basophils % 0.7 % [facility] Basophils Abs 0.1 0.0 - 0.1 [facility] x10(3)/[facility] LABORATORY Immature Gran % 0.60 % [facility] Comment: Immature granulocytes(IG's)percentage an d absolute count will include metamyelocytes, myelocytes, and promyelo cytes. Blood smears from CBCs yielding IG's will be scanned manually for concor dance. If this scan disagrees with the automated IG or if promyelocytes are not ed, a manual differential will be performed. Shantell Gran Abs 0.10 (H) 0.00 - 0.04 x10(3)/[facility] LABORATORY Specimen Anatomical Collection Method Collection Time Receive d Time (Source) Location / / Volume Laterality Blood 09/02/2021 5:07 PM 2 5:23 EDT PM EDT Resulting Agency Comment Spec In Lab Demetrius ROMAN HEMATOLOGY ORDERABLES Performing Organization Address City/State/[place] [address] (ABNORMAL) Hemogram (09/02/2021 5:07 PM EDT) Analysis Performed At Patho logist Time Signature WBC 16.8 (H) 4.0 - 9.5 [facility] x10(3)/[facility] LABORATORY RBC 4.64 4.00 - [facility] 5.21 [facility] x10(6)/[facility] LABORATORY Hemoglobin 14.1 11.7 - [facility] 15.5 g/dL [facility] Hematocrit 41.7 35.7 - [facility] 45.8 % [facility] MCV 89.9 82.6 - [facility] 94.4 [facility] LABORATORY MCH 30.4 27.1 - [facility] 32.0 pg [facility] MCHC 33.8 31.7 - [facility] 35.0 g/dL [facility] Platelets 387 (H) 145 - 357 [facility] x10(3)/[facility] LABORATORY RDWSD 46.0 37.0 - [facility] 46.0 [facility] LABORATORY RDWCV 14.0 11.5 - [facility] 14.1 % [facility] MPV 9.4 7.6 - 12.9 [facility] LABORATORY nRBC % Auto 0.0 % [facility] nRBC Abs Auto 0.000 0.000 - [facility] 0.000 [facility] x10(3)/[facility] LABORATORY Specimen Anatomical Collection Method Collection Time Receive d Time (Source) Location / / Volume Laterality Blood 09/02/2021 5:07 PM 2 5:23 EDT PM EDT Resulting Agency Comment Spec In Lab Demetrius ROMAN HEMATOLOGY ORDERABLES Performing Organization Address City/State/ZIP Code Phon e Number [address] Lactate, whole blood, send to lab ([facility]) (09/02/2021 5:07 PM EDT) athologist Signature Lactate WB 2.1 0.5 - 2.2 [facility] mmol/L [facility] Specimen Anatomical Collection Method Collection Time Receive d Time (Source) Location / / Volume Laterality Blood 09/02/2021 5:07 PM 5:22 EDT PM EDT Resulting Agency Comment Spec In Lab Shira Mcclelland MD CHEMISTRY ORDERABLES Performing Organization Address City/[facility]/ZIP [place] [address] (ABNORMAL) Basic Metabolic Panel (non-fasting) (09/02/2021 5:07 PM EDT) athologist Signature Glucose Lvl 132 65 - 199 [facility] mg/dL [facility] Comment: Diabetes: >=200 mg/dL plus symp toms BUN 16 8 - 18 mg/dL [facility] Creatinine 0.58 (L) 0.70 - 1.20 mg/dL [facility] Sodium 140 135 - 145 mmol/L [facility] Potassium 2.5 (Critical) 3.5 - 5.0 mmol/L [facility] Comment: Called by: TAMMY, Read back by: Bharti garner, Date/Time:09/02/21 18:11. Please note: ??Patients with WBC >100,00 0 may have falsely elevated Potassium levels. ??For accurate Potassium quantif ication in these patients send serum separator tube (gold top) for subsequent determinations. ??Contact the Clinical Chemistry Laboratory if there are any qu estions. Chloride 98 98 - 107 mmol/L [facility] CO2 24 22 - 31 mmol/L [facility] Anion Gap 18 (H) 5 - 15 mmol/L [facility] Calcium 9.5 8.5 - 10.5 mg/dL [facility] Estimated GFR 104 >=60 mL/min/1.73 m?? [facility] Comment: This patient's estimated GFR [...] Organization Address City/State/ZIP Code Phon e Number [place] [id number]OS[address] documented in this encounter Visit Diagnoses Diagnosis Abscess Cellulitis and abscess of unspecified si te Wound infection after surgery Other postoperative infection Abscess of abdominal wall Cellulitis and abscess of trunk documented in this encounter Admitting Diagnoses Diagnosis Abscess of abdominal wall Cellulitis and abscess of trunk documented in this encounter Administered Medications Inactive Administered Medications - up to 3 most recent administrations Medication Order MAR Action Action Date Dose Rate Site acetaminophen (Tylenol) tablet Given 09/03/2021 12:15 PM EDT 1,0 00 mg 1,000 mg 1,000 mg, Oral, EVERY 6 HOURS PRN, Starting on 09/02/21 at 2033, Until Thu09/03/21 at 1643, Pain, for MODERATE pain (4-6), Should be used concomitantly if other analgesics are ordered. Maximum dose of acetaminophen is 4000 mg from all sources in 24 hours., Routine Given 09/03/2021 5:47 AM EDT 1,000 mg Given 09/02/2021 10:20 PM EDT 1,000 mg acetaminophen (Tylenol) tablet 1,000 mg Given 09/19/2021 11:03 AM EDT 1,000 mg 1,000 mg, Oral, EVERY 6 [...] Given 09/16/2021 5:05 PM EDT 20 mg clopidogreL (Plavix) tablet 75 mg Given 09/19/2021 [...] 2146, Until Kiara 09/19/21 at 1439, For B G 50-70 mg/dL: [...] PM EDT 40 mg Abdom inal Tissue furosemide (Lasix) (10 mg/mL) injection 20 mg Given 09/06/2021 9:00 AM EDT 20 mg 20 mg, Intravenous, 2 TIMES DAILY, First dose on Thu09/04/21 at 1145, Until Discontinued Given 09/05/2021 4:53 PM EDT 20 mg Given 09/05/2021 8:35 AM EDT 20 mg gabapentin (Neurontin) capsule 300 mg Given 09/17/2021 3:43 PM EDT 300 mg 300 mg, Oral, 3 TIMES DAILY, First dose on Thu09/03/21 at 1500, Until Discontinued, Routine Given 09/17/2021 9:33 AM EDT 300 mg Given 09/16/2021 9:05 PM EDT 300 mg gabapentin (Neurontin) capsule 600 mg Given 09/19/2021 [...] 9:32 AM EDT 25 mg HYDROmorphone (Dilaudid) (0.5 mg/0.5 mL) Given 09/03/2021 6:19 A M EDT 0.2 mg injection syringe 0.2 mg 0.2 mg, Intravenous, EVERY 2 HOURS PRN, Starting on Thu09/02/21 at 2034, Until Thu09/03/21 at 0709, Pain, For breakthrough pain >5/10 not controlled by tylenol/ibuprofen, Routine Given 09/02/2021 9:53 PM EDT 0.2 mg HYDROmorphone (Dilaudid) (0.5 mg/0.5 mL) Given 09/03/2021 7:56 P M EDT 0.2 mg injection syringe 0.2 mg 0.2 mg, Intravenous, EVERY 2 HOURS PRN, Starting on Thu09/03/21 at 0708, Until Thu09/04/21 at 0916, Pain, For breakthrough pain not controlled by tylenol/ibuprofen. If PO dilaudid is ordered, use po first, Routine HYDROmorphone (Dilaudid) (0.5 mg/0.5 mL) Given 09/05/2021 5:53 P M EDT 0.2 mg injection syringe 0.2 mg 0.2 mg, Intravenous, ONCE, 1 dose, On Thu09/05/21 at 1830, Routine HYDROmorphone (Dilaudid) (0.5 mg/0.5 mL) Given 09/15/2021 11:19 AM EDT 0.2 mg injection syringe 0.2 mg 0.2 mg, Intravenous, ONCE, 1 dose, On Thu09/15/21 at 1130, Routine HYDROmorphone (Dilaudid) (0.5 mg/0.5 mL) Given 09/16/2021 1:27 P M EDT 0.2 mg injection syringe 0.2 mg 0.2 mg, Intravenous, ONCE, 1 dose, On Thu09/16/21 at 1415, Routine HYDROmorphone (Dilaudid) (0.5 mg/0.5 mL) Given 09/16/2021 7:31 P M EDT 0.2 mg injection syringe 0.2 mg 0.2 mg, Intravenous, ONCE, 1 dose, On Thu09/16/21 at 2015, Routine HYDROmorphone (Dilaudid) (0.5 mg/0.5 mL) Given 09/02/2021 5:13 P M EDT 1 mg injection syringe 1 mg 1 mg, Intravenous, ONCE, 1 dose, On Thu09/02/21 at 1656, STAT HYDROmorphone (Dilaudid) (0.5 mg/0.5 mL) Given 09/02/2021 7:13 P M EDT 1 mg injection syringe 1 mg 1 mg, Intravenous, ONCE, 1 dose, On Thu09/02/21 at 1904, STAT HYDROmorphone (Dilaudid) (2 mg/mL) multi-dose Given 9:44 PM EDT 0.6 mg injection solution 0.6 mg 0.6 mg, Intravenous, EVERY 10 MIN PRN, Starting on Thu09/13/21 at 2053, Until Thu09/13/21 at 2200, Pain, For Moderate to Severe Pain (6-10 out of 10), Hold for respiratory rate less than 10 per minute. Maximum dose 4 mg over one hour including administrations in the OR. If multiple pain medications are ordered, start with HYDROmorphone or morphine and use fentaNYL for breakthrough pain, PACU Recovery, Routine HYDROmorphone (Dilaudid) tablet 2 mg Given 09/03/2021 9:06 PM EDT 2 mg 2 mg, Oral, EVERY 4 HOURS PRN, Starting on Thu09/03/21 at 0708, Until Thu09/03/21 at 2157, Pain, Routine Given 09/03/2021 5:03 PM EDT 2 mg Given 09/03/2021 1:24 PM EDT 2 mg HYDROmorphone (Dilaudid) tablet 2 mg Given 09/17/2021 7:36 AM EDT 2 mg 2 mg, Oral, EVERY 4 HOURS PRN, Starting on Thu09/06/21 at 1042, Until Thu09/17/21 at 1046, Pain, For pain not controlled with current regimen., Routine Given 09/16/2021 9:22 PM EDT 2 mg Given 09/16/2021 5:30 PM EDT 2 mg HYDROmorphone (Dilaudid) tablet 2 mg Given 09/14/2021 10:39 AM EDT 2 mg 2 mg, Oral, ONCE, 1 dose, On Thu09/14/21 at 1130, VILLA- do not need to wait for 11:30am, Routine HYDROmorphone (Dilaudid) tablet 2 mg Given 09/17/2021 10:38 AM EDT 2 mg 2 mg, Oral, ONCE, 1 dose, On Thu09/17/21 at 1130, Routine HYDROmorphone (Dilaudid) tablet 2 mg Given 09/17/2021 11:44 AM EDT 2 mg 2 mg, Oral, EVERY 4 HOURS PRN, Starting on Thu09/17/21 at 1042, Until Thu09/17/21 at 1737, Pain, For pain not releived within 30-60 minutes of receiving 2 mg dilaudid, give additional 2mg dilaudid, For pain not releived within 30-60 minutes of receiving 2 mg dilaudid, give additional 2mg dilaudid, Routine HYDROmorphone (Dilaudid) tablet 2 mg 2 mg, Oral, EVERY 4 HOURS PRN, Starting on Thu09/17/21 at 1732, Until Thu09/19/21 at 1439, Pain, for mild pain (1-3), May give an additiona l 2 mg once if pain not relieved in 30-60 minutes., Routine HYDROmorphone (Dilaudid) tablet 2-4 mg Given 09/06/2021 5:24 AM EDT 2 mg 2-4 mg, Oral, EVERY 4 HOURS PRN, Starting on Thu09/03/21 at 2156, Until Thu09/06/21 at 1046, Pain, For pain 3-7, give 2mg PO Dilaudid For 8-10, give 4mg PO Dilaudid, Routine Given 09/05/2021 9:05 PM EDT 2 mg Given 09/05/2021 4:51 PM EDT 2 mg HYDROmorphone (Dilaudid) tablet 4 mg Given 09/16/2021 12:43 PM EDT 4 mg 4 mg, Oral, ONCE, 1 dose, On Thu09/16/21 at 1245, To be administered at 12:00 pm today (09/16)., Routine HYDROmorphone (Dilaudid) tablet 4 mg Given 09/19/2021 11:04 AM EDT 4 mg 4 mg, Oral, EVERY 4 HOURS PRN, Starting on Thu09/17/21 at 1732, Until Thu09/19/21 at 1439, Pain, for moderate pain (4-6), May give an additional 2 mg once if pain not relieved in 30-60 minutes., Routine Given 09/18/2021 8:38 PM EDT 4 mg Given 09/18/2021 2:57 PM EDT 4 mg HYDROmorphone (Dilaudid) tablet 4 mg Given 09/18/2021 12:43 PM EDT 4 mg 4 mg, Oral, ONCE, 1 dose, On Thu09/18/21 at 1330, VILLA, Routine HYDROmorphone (Dilaudid) tablet 6 mg 6 mg, [...] PM EDT 1 Units Abdom inal Tissue iohexoL (Omnipaque) (300 mg/mL) solution Given 09/02/2021 5:51 P M EDT 120 mLs 0-200 mL 0-200 mL, Intravenous, ONCE PRN, 1 dose, Starting on Thu09/02/21 at 1751, Until Thu09/02/21 at 1751, Per Protocol, Warning Vesicant/Irritant Medication , Radiology Contrast, Routine lactated Ringers 1,000 mL IV bolus New Bag 09/02/2021 5:17 PM EDT 2000 mL/hr at 2,000 mL/hr, Intravenous, ONCE, 1 dose, On Thu09/02/21 at 1656 lactated ringers infusion New Bag 09/04/2021 12:51 AM EDT 75 mL/hr 75 mL/hr 75 mL/hr, Intravenous, CONTINUOUS, Starting on Thu09/02/21 at 2039, Until Thu09/04/21 at 0916 Rate/Dose Verify 09/03/2021 7:30 PM EDT 75 mL/hr 75 mL/hr New Bag 09/03/2021 11:30 AM EDT 75 mL/hr 75 mL/hr lidocaine (Lidoderm) 5% Patch Applied 09/19/2021 11:03 [...] 2315, Until Discontinued, Remove lidocaine 5% patch lidocaine (Xylocaine) 1% (10 mg/mL) Given 09/08/2021 12:15 PM ED T 200 mg injection 200 mg 200 mg (20 mL), Subcutaneous, ONCE, 1 dose, On Thu09/08/21 at 1215, Routine Liposomal Lidocaine (LMX) 4 % cream Given 09/04/2021 1:38 PM EDT Topical (Top), ONCE, On Thu09/04/21 at 1330, 1 dose, Rub a small amount of LMX4 cream into site for 30 seconds. Apply a thick second layer of LMX4 cream to site and cover with occlusive dressing. Remove product after 30 minutes. Total application time should not exceed 60 minutes. LORazepam (Ativan) (2 mg/mL) injection 1 mg Given 09/04/2021 1:55 PM EDT 1 mg 1 mg, Intravenous, ONCE, 1 dose, On Thu09/04/21 at 1430, For suture removal, Routine magnesium sulfate 2 g in sterile water New Bag 09/02/2021 9:28 PM EDT 2 g 25 mL/hr 50 mL infusion 2 g, Intravenous, ONCE, 1 dose, On Thu09/02/21 at 2024, Administer over 120 Minutes magnesium sulfate 2 g in sterile water New Bag 09/03/2021 2:53 AM EDT 2 g 25 mL/hr 50 mL infusion 2 g, Intravenous, ONCE, 1 dose, On Thu09/03/21 at 0315, Administer over 120 Minutes metroNIDAZOLE (Flagyl) 500 mg in New Bag 09/02/2021 7:00 PM 500 mg 200 mL/hr sodium chloride 0.9% 100 mL infusion EDT 500 mg, Intravenous, ONCE, 1 dose, On Thu09/02/21 at 1815, Administer over 30 Minutes, Indication for (Active or Suspected): Anaerobic infection-GI/Intrabdominal metroNIDAZOLE (Flagyl) tablet 500 mg Given 09/19/2021 [...] on 08/15 at 1145, Until Discontinued, Routine potassium chloride 10 mEq in New Bag 09/02/2021 9:19 PM EDT 10 mEq 100 mL/hr sterile water 100 mL infusion 10 mEq, Intravenous, EVERY HOUR, 4 doses, First dose on Thu09/02/21 at 1815, Last dose on Thu09/02/21 at 2100, Administer over 60 Minutes, Warning Vesicant/Irritant Medication New Bag 09/02/2021 8:26 PM EDT 10 mEq 100 mL/hr New Bag 09/02/2021 7:17 PM EDT 10 mEq 100 mL/hr potassium chloride 10 mEq in New Bag 09/03/2021 11:30 AM EDT 10 mE q 100 mL/hr sterile water 100 mL infusion 10 mEq, Intravenous, EVERY 2 HOURS, 5 doses, First dose on Thu09/03/21 at 0315, Last dose on Thu09/03/21 at 1115, Administer over 60 Minutes, Warning Vesicant/Irritant Medication New Bag 09/03/2021 9:11 AM EDT 10 mEq 100 mL/hr New Bag 09/03/2021 6:20 AM EDT 10 mEq 100 mL/hr potassium chloride ER (K-Dur/Klor-Con) tablet Given 5:47 AM EDT 40 mEq 40 mEq 40 mEq, Oral, ONCE, 1 dose, On Thu09/03/21 at 0615, Please dissolve 20 mEq tablet may be dissolved in water for administration, Routine potassium chloride ER (K-Dur/Klor-Con) tablet Given 8:01 PM EDT 40 mEq 40 mEq 40 mEq, Oral, ONCE, 1 dose, On Thu09/03/21 at 1945, 20 mEq tablet may be dissolved in water for administration, Routine potassium, sodium phosphates (Neutra-Phos) Given 09/03/2021 9:31 PM EDT 3 g 280-160-250 mg oral packet 3 g 3 g, Oral, ONCE, 1 dose, On Thu09/03/21 at 1945, Take with full glass of water, Routine senna-docusate (Pericolace) 8.6-50 mg per Given [...] hours., Routine atorvastatin (Lipitor) tablet 20 mg 1714 (Given - Prov ider: Christel Parker LPN) 1747 (Given - Provider: Marah Urena RN) 20 [...] Routine gabapentin (Neurontin) capsule 300 mg (CANCELED) 33 (Given - Provider: Lena Walton RN)1543 (Given [...] LPN) 1243 (Patch Applied - Provider: Marah Urena RN) 1103 (Patch Applied - Provider: Dilip Dawson [...] EVERY 30 MIN PRN, S tarting on 09/02/21 at 2146, Until Kiara 09/19/21 at 1439, [...] Buccal, EVERY 30 MIN PRN, Starting on 09/02/21 at 2146, Until Kiara 09/19/21 at 1439, Low blood sugar, For BG 50-70 mg/dL: Oral treatment preferred: If able to drink, give 120 mL J uice or Regular (not diet) soda OR If ORDER SELECTOR O, give 15 gram glucose 40% oral [...] 4) 1 823 (Given - Provider: Christel Parker LPN)2207 (Given - Provider: Rachel Mendoza RN) 0518 (Given - Provider: Rachel Mendoza RN)0939 (Given - Provider: Gretchen Marshall RN)1457 (Given - Provider: Gretchen Marshall RN)2037 (Given - Provider: Rachel Mendoza RN) 1104 (Given - Provider: Dilip Dawson, Dell Kaye) 4 mg, Oral, EVERY 4 HOURS PRN, [...] Marshall RN)2038 (See Alternative - Provider: Rachel Mendoza, RN) 1104 (See Alternative - Provider: Dilip Dawson, GENA) 6 mg, Oral, EVERY 4 HOURS PRN, Starting on Thu09/17/21 at 1732, Until Kiara 09/19/21 at 1439, Pain, for severe pain (7-10), May give an additional 2 mg once if pain not relieved in 30-60 minutes., Routine ibuprofen (Motrin) tablet 400 mg 1018 (Given - Provider: Jamilah Parker LPN) 1504 (Given - Provider: Gretchen Marshall, GENA) 400 mg, Oral, EVERY 6 HOURS PRN, [...] Start ing on Thu09/02/21 at 2146, Until Thu09/19/21 at 1439, Constipation, Routine sodium chloride 0.9 [...] Thu09/02/21 at 2146, Until Thu09/19/21 at 1439, Low blood sugar
For BG [...] IRIS RY 30 MIN PRN, Starting on 09/02/21 at 2146, Until Kiara 09/19/21 at 1439
[...] EVERY 30 MIN PRN, S tarting on 09/02/21 at 2146, Until Kiara 09/19/21 at 1439, [...] episode. & nbsp; For persistent hypoglycemia, con proration clerk longer-acting treatment for the duration of the [...] Oral, EVERY 4 HOURS PRN, Starting on Tu09/17/21 at 1732, Until Kiara 09/19/21 at 1439, Pain, for moderate pain (4-6)
May give an additional 2 mg once if pain not relieved in 30-60 minutes.
Routine Or HYDROmorphone (Dilaudid) tablet 6 mgJump to med 6 mg, Oral, EVERY 4 HOURS PRN, Starting on Thu09/17/21 at 1732, Until Kiara 09/19/21 at 1439, Pain, for severe pain (7-10)
May give an additional 2 mg once if pain not relieved in 30-60 minutes.
Routine Group 5: ondansetron (Zofran) tablet 4-8 mgJump to med 4-8 mg, Oral, EVERY 8 HOURS PRN, Startin g on Thu09/02/21 at 203, Until Kiara 09/19/21 at 1439, Nausea, Vomiting
[...] 8 HOURS PRN, Starting on Thu09/02/21 at 203, Until Kiara 09/19/21 at 1439, Nausea
Start with 4mg and if ineffective in 30 minutes, give an additional 4mg If multiple antiemetics are ordered, give o ndansetron first.
documented in this encounter Care Teams Director Of Engineering Relationship Specialty Start Date End Date Ally Ortiz APRN PCP - General Internal Medicine 04/24/21 [address] [address] documented as of this encounter
--- OUTSIDE RECORDS SUMMARY | 2021-09-27 14:50 | XMS_ITS | Encounter Summary ---
:1960 Author Organization [facility] [place] [address] Care Team Providers Name Role Phone Ally Ortiz APRN Primary Care Provider Reason for Referral Home Health Care (Routine) - Authorized Specialty Diagnoses / Procedures Referred By Contact Refer red To Contact Diagnoses Wound infection after surgery Ai Arriaza MD [facility], [place] [address] [facility] [place] [address] Phone: Fax: Referral ID Status Reason Start Date Expiration Visits Visits Date Requested Authorized [id number] Authorized Consult, 08/22/2021 02/18/2022 999 999 Test & Treat Reason for Visit Reason Comments Post-op Problem Auth/Cert Specialty Diagnoses / Procedures Referred By Contact Refer red To Contact Diagnoses Wound infection after surgery Procedures ER IPI Referral ID Status Reason Start Date Expiration Date Visits Requ ested Visits Authorized [id number] 1 1 Encounter Details Date Type Department Care Team Description 08/12/2021 - Hospital Encounter 4 [facility] - CodyZita MD [facility] EMERGENCY [place] [address] Wound infection 08/22/2021 [facility] Joshua Che [place] [facility] [place] [address] after surgery [facility] Loco White MD [facility] [place] [address] [facility] Ai Arriaza MD [facility] [place] [address] [place] [address] Social History Tobacco Use Types Packs/Day Years [...] Sign Reading Time Taken Comments Blood Pressure 167/85 08/22/2021 8:21 AM EDT Pulse 55 08/22/2021 3:40 AM EDT Temperature 36.6 ??C (97.9 ??F) 08/22/2021 8:21 AM EDT Respiratory Rate 20 08/22/2021 7:47 AM EDT Oxygen Saturation 92% 08/22/2021 8:21 AM EDT Inhaled Oxygen Concentration - - Weight 104.3 kg (230 lb) 08/12/2021 1:39 PM EDT Height 149.9 cm (4' 11) 08/12/2021 1:39 PM EDT Body Mass Index 46.45 08/12/2021 1:39 PM EDT documented in this encounter Discharge Summaries Rosmery Moreno MD - 08/22/2021 10:18 AM EDT Images from the original note were not included. Acute Care Surgery Discharge Summary Patient Name: Jahaira Montgomery Patient Age: 61 y.o. : 1960 Attending Physician: Ai Arriaza MD Date of Admission: 08/12/2021 Date of Discharge: 08/22/21 ID: 61 y.o.yo pt admitted on 08/12/2021 for abdominal wall abscess Other In-hospital Issues: - Sinus bradycardia - Acute Pain Secondary Diagnosis: Past Medical History: Diagnosis Date ??? Chronic pain Chronic bilat knee (ACL) pain ??? Claudication left leg no acl right leg torn acl ??? Diverticulitis ??? Syncope fainted 10 years ago from heat Allergies: No Known Allergies Operations/Procedures: 08/12/2021 I & D ABSCESS, SIMPLE OR SINGLE, TRUNK (WRVU 1.22) (N/A) 08/15/2021 MODIFIER WOUND VAC (N/A) DEBRIDEMENT SKIN, SUBCU, MUSCLE, ABDOMEN (WRVU 2.7) (Midline) ?? 08/17/2021 Procedure(s): DEBRIDEMENT SKIN AND SUBCU, FIRST 20 SQ CM, ABDOMEN (WRVU 1.01) MODIFIER WOUND VAC 08/20/2021 SECONDARY CLOSURE SURGICAL WOUND OR DEHISCENCE, EXTENSIVE OR COMPLICATED, TRUNK (WRVU 12.04) (Midline) Operative findings: 08/12/2021 - [id number] abscess of abdominal wall over mesh. - Skin and subcutaneous tissue debrided, superficial layers of ovitex mesh removed as they had dissociated from the bulk of the mesh. - Vac placed with 1 piece white and 1 piece black sponge 08/15/2021 Small amount of mesh debrided from the edge of the fascia. Ischemic fat sharply removed with scissors. One white sponge and one black sponge placed.??[id number] wound.?? 08/17/2021 -22 x 14 x 4 cm wound, clean with healthy granulation tissue 08/20/2021 Wound clean with beginning of granulation base, additional necrotic fat debrided on the left side ofthe wound with electrocautery back to healthy tissue, small skin flaps raised and skin closed down the midline with 2-0 Prolene over 15 Fr channel drain HPI (Mavis Tamayo MD 08/12/2021): Jahaira Montgomery is a 61 y.o. female with tobacco use, obesity, T2DM (HbA1c 7.1%), chronic knee pain, diverticulitis s/p Lucy's procedure with reversal 03/2019, incarcerated ventral hernia in 04/2020 s/pprimary repair, hospitalization in 04/2021 for recurrent incarcerated ventral hernia treated conservatively, and most recently s/p ventral hernia repair with Ovitex on-lay mesh with 2 supra- mesh drains 07/23/[address] Watters, The left drain was pulled prior to discharge, and the right drain was pulledin clinic 08/07 at which time the shelley were also removed. She complained of pain during that clinic visit and was sent to the ED for further evaluation where CT scan showed a 9cm collection ventral to the mesh containing a fair amount of gas c/f possible abscess. However, the wound appeared to be healing well, and the air was thought to be related to the GEE that was removed that day since the eyelet was well outside the body, so she was discharged home. ?? She again presented to the ED today with intense pain around her incision and purulent drainage. Thepain awoke her from sleep early this morning, and nothing she has done (ice, tylenol) has relieved her pain even a little. She noticed new erythema at the wound edges and some purulent drainage, so shepresented to the ED where workup notable for tachycardia, a white count of 16.6, and CT showing enlarged gas-containing collection ventral to the mesh. She endorses fever/chills but denies obstructive symptoms. Hospital Course: Ms. Montgomery presented [place] [facility] [place] and subsequently seen by the ACS team due to the above history. She was made NPO, started on IV zosyn and vancomycin, and given IV fluids with potassium replacement, and pain was managed with IV dilaudid. She was taken to the IR for the above noted procedure and the above noted findings. A wound vac was placed, and the procedure was uncomplicated. Wound cultures were obtained and grew coagulase negative staph, with the discontinuation of her zosyn at that time. Post-opperatively she had episodes of asymptomatic bradycardia that was confirmed with EKG and was self resolving. She was taken back to the OR for routine wound vac changes as noted above without complication, and subsequently uncomplicated post-op course. Infectious disease was consultedregarding antibiotic management, with the recommendation made to continue vancomycin and start metronidazole (08/16/2021). On 08/19 maintenance IVF were started while NPO for a slight increase in creatinine (Cr 0.78). Patient was taken to the OR the final time on 08/20/2021 for wound closure over a drain. Ms. Montgomery tolerated the operations without complication. She tolerated the resumption of her diet andnormalized to PO pain medication. Based off of wound cultures, ID recommended to change vancomycin to PO doxycycline with continuation of metronidazole for 4 wks, with scheduled ID clinic follow up. Jahaira Montgomery's pain was adequately controlled on non-narcotic medications, she was maintaining adequate oxygen saturation on room air, and was hemodynamically stable. She was tolerating a diet without abdominal complaints and voiding adequately. WBC and Hgb were stable. She was ambulating, voiding spontaneously, and having BMs. Jahaira Montgomery was evaluated by the Surgery Team and deemed medically stable for discharge today 08/22/21. Plan: - Follow up in general surgery clinic in 2 weeks for wound check, suture removal, and drain check/removal - Discharged on doxycycline 100mg BID and metronidazole 500mg TID for at least 6 weeks. The patient was given a prescription to last until 2 days after scheduled ID follow up on 09/30. Active issues to be addressed at discharge: GEE drain management. Incidental Radiographic Findings: None Pending Lab Data at Discharge: None Pertinent Lab Data: No results for input(s): WBC, HGB, HCT, PLATELET, PT, INR, PTT in the last 72 hours. No results for input(s): NA, K, CL, CO2, BUN, CREATININE, GLUCOSE, CALCIUM, MAGNESIUM, PHOS in the last 72 hours. Microbiology Data: Microbiology Results (Last 30 days) Procedure Component Value Units Date/Time COVID-19 PCR [[id number]] Collected: 08/15/21 1531 Lab Status: Final result Specimen: Nasopharyngeal Swab Updated: 08/16/21 0251 SARS-CoV-2 RNA Not Detected Comment: This result should be interpreted in combination with the clinical observations, patient history and epidemiological information in making a final diagnosis. For testing of asymptomatic individuals, assay performance characteristics and clinical utility have not been evaluated. Testing for SARS-CoV-2 (Severe acute respiratory syndrome coronavirus 2, formerly known as 2019 novel coronavirus or 2019-nCoV) to aid in the diagnosis of COVID-19 is performed using the [employer] SARS-CoV-2 Assay as authorized by the FDA Emergency Use Authorization (EUA). This EUA assay is intended for In-vitro Diagnostic (IVD) use with respiratory specimens such as nasopharyngeal swabs collected from individuals during the acute phase of infection. This assay is performed based on the instructions for use provided by [employer] and additional guidance provided by CDC and FDA. Testing is performed in the [facility] [employer] [facility] within the Department of Pathology and Laboratory Medicine at [facility], certified under the Clinical Laboratory Improvement Amendments of 1988 (CLIA), 42 U.S.C. 263a, to perform high complexity tests. Assay performance has been verified according to clinical laboratory regulatory requirements for use with specimens collected from individuals suspected of COVID-19. Test results are provided above. A result of Not Detected indicates that the viral RNA target is not present above the limit of detection, but does not preclude SARS-CoV-2 infection. False negative results may occur if a specimen is improperly collected, transported or handled; if amplification inhibitors are present; or if inadequate numbers of viral particles are present in the specimen. When a diagnostic test is negative, the possibility of a false negative result should be considered in the context of a patient's recent exposures and the presence of clinical signs and symptoms consistent with COVID-19. A result of Detected indicates that RNA from SARS-CoV-2 was detected and the patient is infected. As required or requested by public health authorities, positive specimens may be sent for additional testing. Positive and negative predictive values for this test are highly dependent on disease prevalence. A result of Invalid indicates that neither the viral RNA targets nor the internal control target was detected. An invalid result suggests the presence of inhibitors. Recollection and re-testing is recommended in the case of an invalid result. CDC COVID-19 criteria for testing on human specimens and clinical management guidance information are available at the CDC Coronavirus Disease 2019 (COVID-19) webpage under Information for Healthcare Professionals (https://www.cdc.gov/coronavirus/2019-ncov/hcp/index.html) Additional information about this and other EUA tests can be found in provider and patient fact sheets at the following FDA website: https://www.fda.gov/medical-devices/uefvrsbbagh-slckpcp-4094-orfac-62-xfstnyhpa- agh-huiglzkcxdqyxk-ggrhnuu-devices/iogjy-dvuzhamprff-nbbk SARS-Cov-2 RNA Source [employer] Swab Body Fluid Culture, Aerobic & Anaerobic Abdominal Fluid [[id number]] (Abnormal) Collected: 08/12/211948 Lab Status: Final result Specimen: Abdominal Fluid Updated: 08/16/21 1551 Tissue Culture, Aerobic & Anaerobic Stomach [[id number]] (Abnormal) Collected: 08/12/211948 Lab Status: Final result Specimen: Stomach Updated: 08/20/21 1236 Body Fluid Culture, Aerobic [[id number]] (Abnormal) Collected: 08/12/211948 Lab Status: Final result Specimen: Abdominal Fluid Updated: 08/16/21 1319 Body Fluid Culture -- Moderate mixed Gram Positive organisms including Coagulase negative Staphylococcus species Susceptibilities previously reported Gram Stain -- Cytocentrifuge Gram Stain performed Neutrophils seen Many Gram Positive Cocci seen Results called to and read back by Dilip rojas 08/12/21 22:08:54 WS Anaerobic Culture [[id number]] Collected: 08/12/211948 Lab Status: Final result Specimen: Abdominal Fluid Updated: 08/16/21 1551 Anaerobic Culture No anaerobic organisms isolated Tissue culture [[id number]] (Abnormal) (Susceptibility) Collected: 08/12/211948 Lab Status: Final result Specimen: Stomach Updated: 08/20/21 1236 Tissue Culture Moderate Coagulase negative Staphylococcus species Gram Stain -- Moderate Neutrophils seen Moderate Gram Positive Cocci seen Results called to and read back by maritza 08/12/21 21:42:05 WS Susceptibility Coagulase negative staphylococcus species MICROSCAN METHOD Ciprofloxacin Sensitive Clindamycin Resistant Erythromycin Resistant Gentamicin Sensitive [1] Levofloxacin Sensitive Oxacillin Resistant Rifampin Sensitive Tetracycline Sensitive Trimethoprim/Sulfa Sensitive Vancomycin Sensitive [1] Gentamicin is not appropriate for [place]-therapy. Linear View Anaerobic Culture [[id number]] (Abnormal) (Susceptibility) Collected: 08/12/211948 Lab Status: Final result Specimen: Stomach Updated: 08/18/21 1355 Anaerobic Culture Moderate Finegoldia magna Susceptibility Finegoldia magna MINIMUM INHIBITORY CONCENTRATION Metronidazole Sensitive Penicillin Sensitive Linear View COVID-19 PCR [[id number]] Collected: 08/12/21 1602 Lab Status: Final result Specimen: Nasopharyngeal Swab Updated: 08/12/21 1859 SARS-CoV-2 RNA PCR Not Detected Comment: This result should be interpreted in combination with the clinical observations, patient history and epidemiological information. For testing of asymptomatic individuals, assay performance characteristics and clinical utility have not been evaluated. Testing for SARS-CoV-2 (Severe acute respiratory syndrome coronavirus 2, formerly known as 2019 novel coronavirus or 2019-nCoV) to aid in the diagnosis of COVID-19 is performed using the [employer] COVID-19 Direct Assay by [employer] as authorized by the FDA issued Emergency Use Authorization (EUA). This assay is intended for In-vitro Diagnostic (IVD) use with nasopharyngeal swabs collected from individuals meeting the CDC criteria for testing. The assay is performed based on the instructions for use and additional guidance provided by the FDA. Testing is performed in the Microbiology Laboratory within the Department of Pathology and Laboratory Medicine at [facility], certified under the Clinical Laboratory Improvement Amendments of 1988 (CLIA), 42 U.S.C. section 263a, to perform high complexity tests. Assay performance has been verified according to clinical laboratory regulatory requirements. Test results are provided above. A result of Not Detected indicates that the viral RNA target is not present but does not preclude SARS-CoV-2 infection. False negative results may occur if a specimen is improperly collected, transported or handled; if amplification inhibitors are present; or if inadequate numbers of viral particles are present in the specimen. A result of Detected suggests a current or recent infection and the patient is presumed to be infected. Positive and negative predictive values for this test are highly dependent on disease prevalence. A result of Invalid indicates the inability to conclusively determine the presence or absence of SARS-CoV-2 RNA in the sample which can be due to a variety of factors. Recollection is recommended in the case of an invalid result. CDC COVID-19 criteria for testing on human specimens and clinical management guidance information are available at the CDC Coronavirus Disease 2019 (COVID-19) webpage under Information for Healthcare Professionals (https://www.cdc.gov/coronavirus/2019-ncov/hcp/index.html). Additional information about this and other EUA tests can be found in provider and patient fact sheets at the following FDA website: https://www.fda.gov/medical-devices/pvobgwyvlxs-hnyrten-0127-wiixh-10-gzupgsaqc- djv-iidlwvjjodmppj-bgugtsu-devices/slcmc-gshywlhdmsb-ggrg SARS-CoV-2 Source [employer] Swab Abscess/Wound Asp Culture, Aerobic and Anaerobic Deep Wound; Abdomen [[id number]] Collected: 07/23/211536 Lab Status: Final result Specimen: Deep Wound from Abdomen Updated: 07/27/21 1340 Abscess/Wound Aspirate Culture [[id number]] Collected: 07/23/211536 Lab Status: Final result Specimen: Deep Wound from Abdomen Updated: 07/27/21 1029 Abscess/Wound Aspirate Culture -- Normal cutaneous tania isolated from broth culture. No growth on original plates. Gram Stain -- Few Neutrophils seen No microorganisms seen. Anaerobic Culture [[id number]] Collected: 07/23/211536 Lab Status: Final result Specimen: Deep Wound from Abdomen Updated: 07/27/21 1340 Anaerobic Culture No anaerobic organisms isolated Pertinent Imaging: Results for orders placed or performed during the hospital encounter of 08/12/21 CT Abdomen & Pelvis wo Contrast (Exam End: 08/12/2021 2:33 PM) Impression * Interval increase in size of midline gas containing soft tissue abscess superficial to the prior mesh repair, now measuring up to 15 cm in craniocaudal dimension. * No evidence of hernia recurrence or intraperitoneal abscess extension. Preliminary report signed by: Jone Sanders at 08/12/2021 3:00 PM I have personally reviewed the image(s) and the resident's interpretation and agree with the findings, Jas Weir MD at 08/12/2021 3:53 PM Thank you for letting us participate in the care of this patient. If you are a health care provider and have any questions regarding this report, please contact the number below. For patients who have questions please contact the health animal care giver that requested your imaging first. Discharge Physical Examination: Vital Signs: Last value Range last 24hrs Temperature Temp: 36.6 ??C (97.9 ??F) Temp: [36.5 ??C (97.7 ??F)-36.8 ??C (98.2 ??F)] Heart Rate Heart Rate: 55 Heart Rate: [55-58] Blood Pressure BP: 167/85 BP: (134-189)/(60-92) Respiratory Rate Resp: 20 Resp: [16-20] SpO2 SpO2: 92 % SpO2: [91 %-94 %] Physical Exam: GENERAL: Alert, awake and in no apparent distress, obese HEAD: Normocephalic, atraumatic FACE: Pupils/eyes: Equal round and reactive to light, no orbital or periorbital ecchymosis or edema. No scleral icterus, subconjunctival hemorrhage, no injection. LUNGS: breathing comfortably on RA CARDIAC: Intermittent asymptomatic bradycardia ABDOMEN/GI: Soft, nontender, nondistended. Wound C/D/I closed with prolene sutures. GEE in place withSS/serous output EXT: Normal and symmetric movement, normal range of motion, no edema NEURO: alert and oriented, normal speech, answers questions appropriately, moves all extremities spontaneously Current Medications: The following medications have been prescribed for you. If you notice any adverse reactions to your medications, please contact your primary care physician immediately or go to the nearest Emergency Department. Your Medications New Medications Dose Details doxycycline monohydrate 100 mg Cap Commonly known as: Monodox Take 1 capsule by mouth 2 times daily for 41 days. 100 mg Quantity: 82 capsule Refills: 0 metroNIDAZOLE 500 mg Tab Commonly known as: Flagyl Take 1 tablet by mouth 3 times daily for 41 days. 500 mg Quantity: 123 tablet Refills: 0 Continued medications with new dosing Dose Details polyethylene glycoL 17 gram/dose Powd Commonly known as: Miralax Take 17 g by mouth daily as needed (take as need for constipation. Hold if you are having diarrhea) for up to 30 doses. What changed: reasons to take this 17 g Quantity: 510 g Refills: 0 senna 8.6 mg Tab Commonly known as: Senokot Take 2 tablets by mouth nightly. Hold if you are having diarrhea What changed: additional instructions 2 tablet Quantity: 60 tablet Refills: 11 senna-docusate 8.6-50 mg Tab Commonly known as: Pericolace Take 2 tablets by mouth 2 times daily as needed for Constipation. Hold if you are having diarrhea What changed: additional instructions 2 tablet Quantity: 60 tablet Refills: 11 Continued medications, unchanged Dose Details acetaminophen 500 mg Tab Commonly known as: Tylenol Extra Strength Take 1 tablet by mouth every 6 hours as needed for Pain. 500 mg Quantity: 30 tablet Refills: 0 atorvastatin 20 mg Tab Commonly known as: Lipitor Take 20 mg by mouth every evening. 20 mg Refills: 0 clopidogreL 75 mg Tab Commonly known as: Plavix Take 75 mg by mouth daily. 75 mg Refills: 0 Eszopiclone 1 mg Tab Commonly known as: LUNESTA Take 1 mg by mouth nightly as needed. 1 mg Refills: 0 hydroCHLOROthiazide 25 mg Tab Commonly known as: Hydrodiuril Take 25 mg by mouth daily. 25 mg Refills: 0 STOPPED Medications ALBUTEROL INHL ibuprofen 200 mg Tab Commonly known as: Advil ibuprofen 600 mg Tab Commonly known as: Advil nicotine 14 mg/24 hr Pt24 Commonly known as: Nicoderm CQ nicotine polacrilex 2 mg Gum Commonly known as: Nicorette potassium chloride ER 20 mEq Tbtq Commonly known as: K-Dur/Klor-Con Disposition: Home with VNA Scheduled Appointments: The following appointments have been scheduled on your behalf: Future Appointments Date Time Provider Department Center 09/03/2021 10:30 AM Paloma Mota APRN [facility] [place] 09/30/2021 1:30 PM Werner Harrell MD [facility] [place] [id number] [place]patient Services/Studies: Referral to Home Health Referral Priority: Routine Referral Type: Home Health Care Referral Reason: Consult, Test & Treat Referred to Provider: [facility] Number of Visits Requested: 999 Special Instructions Given to Patient at Discharge:. An After Visit Summary was printed and given to the patient. Patient Instructions [facility] Department of General Surgery Discharge Instructions CALL YOUR PHYSICIAN'S OFFICE IF: ??? You have a fever greater than 101 degrees Farenheit (38.3C) within one month of your surgery. ? ? You have diarrhea or vomiting for >24 hours, stop having bowel movements and/or passing flatus, have pain with urination. ??? You have worsening pain, not controlled with your pain medication. ??? You develop redness, swelling, or new drainage from your wound. Medications: [x] Pain Control [x] Non-narcotic pain medication - We recommend alternating with tylenol 650mg and ibuprofen 400-600mg every 6 hours (ie; tylenol at12pm, ibuprofen 3pm, tylenol 6pm, ibuprofen 9pm). - Do not take more than 4,000mg (4g) of tylenol in 24hours. [x] Antibiotics - You have been prescribed 100mg doxycycline twice daily and 500mg metronidazole three times daily.You will be on these antibiotics for at least 4 weeks. You will follow up with infectious diseases regarding further antibiotic plans. [x] Other Medication(s) - The remainder of your medications are listed in the first section of the After Visit Summary. Driving Restrictions: - No driving if you are too sore from surgery to enter or exit your vehicle comfortably, or if you are too sore to easily check your blind spot. No driving while using narcotic pain medications. Shower: - It is ok to shower. You can shower per usual routine and let soapy water run over your incision. Pat incision dry with a clean, dry towel. Do not submerge the wound under water (no swimming or soaking) for at least 6 weeks, or until approved by your surgeon. Diet: [x] You have been cleared to resume your regular diet - We recommend eating a regular healthy diet (ie; fresh fruits, vegetables and fiber-containing foods will assist in wound healing,) Activity: - It is normal to feel tired after surgery/hospitalization. Be as active as tolerated as this will improve recovery and prevent blood clots. - You should avoid any heavy lifting for 4 weeks after surgery. A gallon of milk is a good estimateof the maximum you should be lifting while your wounds heal. -We recommend taking several slow, short walks each day for the first two weeks, and gradually increase your distance. We recommend at least 4 times a day. Wound/Incision Care: Closure: Your skin incision is closed with: [x] Sutures - If your sutures are visible, they will need to be removed at a follow up appointment.If they are not visible, then they are underneath the skin and will dissolve. You may also have Steristrips covering your skin, which are strips of white tape that should fall off after ~10 days (if not, please remove manually). You may shower with them on. Infection: Observe for changes and alert the clinic if new/worsening redness or drainage. Things to avoid: Do not use creams, oils, or ointments on the wound. Keep wound open to air if it is not draining. Lines/Drains/Tubes: [] You are being discharged with a GEE drain. Please see the multidisciplinary instructions below for details Who to call? If you have concerns or questions: - During the day, it is best to call the [facility] to speak with the Surgery nurses. The number is [phone]. - During the night or weekends call the [facility] sewer pipe press operator at [phone] and ask to speak to the surgery resident concrete craftsman for general surgery. Please note: Your surgeon may not be Drapery Estimator, especially during the night or on weekends, so be ready to describe yourself and your surgery when you call. Follow up appointments: You will follow up with Infectious Diseases on 09/30/21 at 1:30pm as below. You will follow up with general Surgery on 09/03/21 at 10:30am as below In regards to the your potassium levels, they were low when you came into the hospital, but become normal while you were here. Please follow up with your primary care provider early next week (Thursday or Thursday) for a potassium check. Future Appointments Date Time Provider Department Center 09/03/2021 10:30 AM Paloma Mota APRN [facility] 09/30/2021 1:30 PM Werner Harrell MD [facility] ID [facility] [x] Follow-up appointment with General Surgery has already been scheduled [] A request for a follow-up appointment has been made and you should receive information via phone/mail in the next week. If you do not hear anything, please call the clinic at [phone] to confirmor reschedule. If you need a prior authorization, please call the General Surgery Clinic nurses [phone] for prior authorizations assistance General Instructions None Your care was managed by the Trauma and Acute Care Surgery Team at [facility]. If you have any questions or concerns, please feel free to contact us. Provider Contact Information: General Surgery Scheduling: Nurses line for questions: [facility] (after business hours): CC: TAMMY Marx APRN Signed: Rosmery Moreno MD Department of Surgery 08/22/2021 Acute Care Surgery Pager [phone] documented in this encounter Discharge Instructions Patient InstructionsRosmery Moreno MD - 08/22/2021 8:54 AM EDT [facility] Department of General Surgery Discharge Instructions CALL YOUR PHYSICIAN'S OFFICE IF: You have a fever greater than 101 degrees Farenheit (38.3C) within one month of your surgery. You have diarrhea or vomiting for >24 hours, stop having bowel movements and/or passing flatus, have pain with urination. You have worsening pain, not controlled with your pain medication. You develop redness, swelling, or new drainage from your wound. Medications: [x] Pain Control [x] Non-narcotic pain medication - We recommend alternating with tylenol 650mg and ibuprofen 400-600mg every 6 hours (ie; tylenol at12pm, ibuprofen 3pm, tylenol 6pm, ibuprofen 9pm). - Do not take more than 4,000mg (4g) of tylenol in 24hours. [x] Antibiotics - You have been prescribed 100mg doxycycline twice daily and 500mg metronidazole three times daily.You will be on these antibiotics for at least 4 weeks. You will follow up with infectious diseases regarding further antibiotic plans. [x] Other Medication(s) - The remainder of your medications are listed in the first section of the After Visit Summary. Driving Restrictions: - No driving if you are too sore from surgery to enter or exit your vehicle comfortably, or if you are too sore to easily check your blind spot. No driving while using narcotic pain medications. Shower: - It is ok to shower. You can shower per usual routine and let soapy water run over your incision. Pat incision dry with a clean, dry towel. Do not submerge the wound under water (no swimming or soaking) for at least 6 weeks, or until approved by your surgeon. Diet: [x] You have been cleared to resume your regular diet - We recommend eating a regular healthy diet (ie; fresh fruits, vegetables and fiber-containing foods will assist in wound healing,) Activity: - It is normal to feel tired after surgery/hospitalization. Be as active as tolerated as this will improve recovery and prevent blood clots. - You should avoid any heavy lifting for 4 weeks after surgery. A gallon of milk is a good estimateof the maximum you should be lifting while your wounds heal. -We recommend taking several slow, short walks each day for the first two weeks, and gradually increase your distance. We recommend at least 4 times a day. Wound/Incision Care: Closure: Your skin incision is closed with: [x] Sutures - If your sutures are visible, they will need to be removed at a follow up appointment.If they are not visible, then they are underneath the skin and will dissolve. You may also have Steristrips covering your skin, which are strips of white tape that should fall off after ~10 days (if not, please remove manually). You may shower with them on. Infection: Observe for changes and alert the clinic if new/worsening redness or drainage. Things to avoid: Do not use creams, oils, or ointments on the wound. Keep wound open to air if it is not draining. Lines/Drains/Tubes: [] You are being discharged with a GEE drain. Please see the multidisciplinary instructions below for details Who to call? If you have concerns or questions: - During the day, it is best to call the General Surgery Clinic to speak with the Surgery nurses. The number is [phone]. - During the night or weekends call the [facility] sewer pipe press operator at [phone] and ask to speak to the surgery resident concrete craftsman for general surgery. Please note: Your surgeon may not be Drapery Estimator, especially during the night or on weekends, so be ready to describe yourself and your surgery when you call. Follow up appointments: You will follow up with Infectious Diseases on 09/30/21 at 1:30pm as below. You will follow up with general Surgery on 09/03/21 at 10:30am as below In regards to the your potassium levels, they were low when you came into the hospital, but become normal while you were here. Please follow up with your primary care provider early next week (Thursday or Thursday) for a potassium check. Future Appointments Date Time Provider Department Center 09/03/2021 10:30 AM Paloma Mota APRN [facility] 09/30/2021 1:30 PM Werner Harrell MD [facility] [place] [facility] [x] Follow-up appointment with General Surgery has already been scheduled [] A request for a follow-up appointment has been made and you should receive information via phone/mail in the next week. If you do not hear anything, please call the clinic at [phone] to confirmor reschedule. If you need a prior authorization, please call the General Surgery Clinic nurses [phone] for prior authorizations assistance documented in this encounter Medications at Time of Discharge Medication Sig Dispensed Refills Start Date End Date metroNIDAZOLE (Flagyl) 500 Take 1 tablet by [...] 04/22/2021 (Hydrodiuril) 25 mg Tablet mouth daily. polyethylene glycoL Take 17 g by 510 g 0 08/22/202109/2021 (Miralax) 17 gram/dose mouth daily as Powder needed (take as need for constipation. Hold if you are having diarrhea) for up to 30 doses. senna (Senokot) 8.6 mg Take 2 tablets 60 tablet 11 2 09/19/2021 Tablet by mouth nightly. Hold if you are having diarrhea senna-docusate (Pericolace) Take 2 tablets 60 tablet 11 11/202109/19/2021 8.6-50 mg Tablet by mouth 2 times daily as needed for Constipation. Hold if you are having diarrhea Eszopiclone (LUNESTA) 1 mg Take 1 mg by 0 04/18/ 022 09/19/2021 Tablet mouth nightly as needed. acetaminophen (Tylenol Extra Take 1 tablet by 30 tablet 0 0 09/19/2019 09/19/2021 Strength) 500 mg Tablet mouth every 6 hours as needed for Pain. documented as of this encounter Progress Notes Rosmery Moreno MD - 08/22/2021 9:10 AM EDT ID/MECHANISM OF INJURY: Jahaira Montgomery is a 61 y.o. female S/p I&D abd wall abscess, vac placement with serial changes in OR, now s/p wound closure over GEE drain OR CASE INFORMATION: 08/19/2021 Procedure(s): SECONDARY CLOSURE SURGICAL WOUND OR DEHISCENCE, EXTENSIVE OR COMPLICATED, [facility]UNK [facility] FOLLOW-UP NEEDED: Does pt need to f-u with surgeon or FIREARMS INSTRUCTOR (please indicate reason if attending provider): Yes, FIREARMS INSTRUCTOR How soon should TACS f/u be? 2 weeks Does patient need imaging prior to TACS f/u? No Are CT/MRI Safety questions complete (if needed)? No Does patient have shelley/sutures? When should they be removed? What service is responsible? Sutures, should be removed in 2 weeks, TACS is responsible Does patient need labs with TACS f/u? No Follow-up with other services? Yes, Infectious Diseases Advise of Service and needs. Imaging orders entered: No Radiology Safety questions done for MRI/CT? No New or current ostomy? Ostomy nurse shared visit No Mobility concerns: Fully ambulatory Wound vac (requires 60min clinic visit) No On vent? If Yes - Needs to have someone from facility and supplies. No On Dialysis: No (SCHEDULE?) INCIDENTAL FINDINGS Incidental Findings (yes/no): No OPIOID CONSENT/NARCOTIC AGREEMENTS Current Month Narcotic Consent? No Isolation No Isolation D/c to: Home If Rehab - Rehab Name: PCP Name: TAMMY Marx MD 08/22/2021 Ai Arriaza MD - 08/21/2021 12:12 PM EDT Images from the original note were not included. Acute Care Surgery Inpatient Progress Note ID: Jahaira Montgomery is a 61 y.o. female with tobacco use, obesity, T2DM (HbA1c 7.1%), chronic knee pain, diverticulitis s/p Lucy's procedure with reversal 03/2019, incarcerated ventral hernia in /p primary repair, hospitalization in 04/2021 for recurrent incarcerated ventral hernia treated non-operatively, and most recently s/p ventral hernia repair with Ovitex on-lay mesh with 2 supra-mesh drains 07/23/[address] Watters, The left drain was pulled prior to discharge, and the right drain was pulled in clinic 08/07 at which time the shelley were also removed. She complained of pain during that clinic visit and was sent to the ED for further evaluation where CT scan showed a 9cm collection ventral to the mesh containing a fair amount of gas c/f possible abscess. However, the wound appeared to be healing well, and the air was thought to be related to the GEE that was removed that day since the eyelet was well outside the body, so she was discharged home. ?? She again presented to the ED at a later day with intense pain around her incision and purulent drainage, fever, chills and leukocytosis. She was taken to the operating room on 08/12/21 for I &D of abdominal wall abscess. 24 hour events/Subjective: - evaluated by PT, cleared for home - pain well controlled on oral medications Hospital Course: 08/12: To OR for I&D abdominal wall hernia. 08/13: Pain well controlled. 08/14: OR for I&D abdominal wall hernia and wound vac change. 08/15: no changes 08/16: vac reinforced in the morning with good seal. ID consult, flagyl added. 08/17: no changes 08/18: to OR for vac change 08/19:: to OR for abd wound closure over GEE drain. 08/20: evaluated by PT, cleared for home. Pain well controlled on oral medications. O: Vitals: Afebrile, HR and BP WNL, saturating over 90% on RA General: Sitting comfortably in bed, conversant Neuro: alert and oriented, speech normal, moves all extremities spontaneously HEENT: no scleral icterus Cardio: Regular rate Pulm: breathing comfortably on RA Abd: soft, nondistended, appropriate adrián-incisional tenderness, midline incision C/D/I, open to air, closed with sutures, GEE with SS output. Abd binder in place Extremities: WWP, no edema Labs reviewed Micro: Microbiology Results (Last 30 days) Procedure Component Value Units Date/Time Body Fluid Culture, Aerobic & Anaerobic Abdominal Fluid [[id number]] (Abnormal) Collected: 08/12/211948 Lab Status: Preliminary result Specimen: Abdominal Fluid Updated: 08/14/21 1059 Tissue Culture, Aerobic & Anaerobic Stomach [[id number]] (Abnormal) Collected: 08/12/211948 Lab Status: Preliminary result Specimen: Stomach Updated: 08/15/21 0949 Body Fluid Culture, Aerobic [[id number]] (Abnormal) Collected: 08/12/211948 Lab Status: Preliminary result Specimen: Abdominal Fluid Updated: 08/14/21 1059 Body Fluid Culture -- Moderate mixed Gram Positive organisms including Coagulase negative Staphylococcus species Gram Stain -- Cytocentrifuge Gram Stain performed Neutrophils seen Many Gram Positive Cocci seen Results called to and read back by Dilip rojas 08/12/21 22:08:54 WS Anaerobic Culture [[id number]] Collected: 08/12/211948 Lab Status: Preliminary result Specimen: Abdominal Fluid Updated: 08/13/21 1135 Anaerobic Culture No anaerobic organisms isolated to date Tissue culture [[id number]] (Abnormal) (Susceptibility) Collected: 08/12/211948 Lab Status: Preliminary result Specimen: Stomach Updated: 08/15/21 0949 Tissue Culture Moderate Coagulase negative Staphylococcus species Gram Stain -- Moderate Neutrophils seen Moderate Gram Positive Cocci seen Results called to and read back by maritza 08/12/21 21:42:05 WS Susceptibility Coagulase negative staphylococcus species MICROSCAN METHOD Ciprofloxacin Sensitive Clindamycin Resistant Erythromycin Resistant Gentamicin Sensitive [1] Levofloxacin Sensitive Oxacillin Resistant Tetracycline Sensitive Trimethoprim/Sulfa Sensitive Vancomycin Sensitive [1] Gentamicin is not appropriate for [place]-therapy. Linear View A/P: 61 year old female with history as above admitted for abdominal wall abscess now s/p I&D inOR and vac placement, serial returns to the operating room for wound vac changes and now s/p abd wound closure over surgical drain on 08/19/21. Pain is well controlled on PO medications. - transition vancomycin to oral doxycycline, continue flagyl per ID recs - cultures with coag negative staph - PT evaluation, cleared for home - Carb Control diet 60/60/75 CHO counting level 2 NEURO: ileana tylenol for pain, dilaudid, lidocaine patches CV: Hemodynamically normal. Atorvastatin, hctz PULM: Encourage OOB/IS GI/FEN: Carb Control diet 60/60/75 CHO counting level 2 at midnight for OR , pericolace, bisacodyl; replete electrolytes PRN RENAL: UOP adequate ENDO: SSI HEME: DVT ppx with lovenox ID: doxycline, flagyl MSK: RADHA PPX: PPI, IS, SCDs LINES: PIV DISPO: Floor status, Attempt Cardiopulmonary Resuscitation - Inpatient Rosmery Moreno MD 08/21/21 Acute Care Surgery Pager: [phone] Attending Addendum I have seen and examined the patient, I have reviewed the vitals, labs and pertinent imaging. I havediscussed the documentation above and agree, with the following comments: Looks great and in excellent spirits today. Eager to progress to home tomorrow. Plan for likely discharge in AM if she continues to do this well. Appreciate ID recommendations for oral abx regimen, switched today. Ai Arriaza MD [id number] Patricia Rai OT - 08/21/2021 10:36 AM EDT Occupational Therapy Evaluation Patient profile: Jahaira Montgomery??is a 61 y.o.??female??with tobacco use, obesity, T2DM (HbA1c 7.1%), chronic knee pain, diverticulitis s/p Lucy's procedure with reversal 03/2019, incarcerated ventral hernia in 04/2020 s/p primary repair, hospitalization in 04/2021 for recurrent incarcerated ventral hernia treated non- operatively, and most recently??s/p??ventral??hernia repair with??Ovitex on-lay??mesh??with 2 supra-mesh drains??07/23/[address] Watters, The left drain was pulled prior to discharge, and the right drain was pulled in clinic 08/07 at which time the shelley were also removed. She complained of pain during that clinic visit and was sent to the ED for further evaluation where CT scan showed a 9cm collection ventral to the mesh containing a fair amount of gas c/f possible abscess. However,the wound appeared to be healing well, and the air was thought to be related to the GEE that was removed that day since the eyelet was well outside the body, so she was discharged home. She again presented to the ED at a later day with intense pain around her incision and purulent drainage, fever, chills and leukocytosis. She was taken to the operating room on 08/12/21 for I &D of abdominal wall abscess.? Past Medical History: Diagnosis Date ??? Chronic [...] 27.9) performed by Miryam Wiley MD at [facility] MAIN OR ??? PRO COLONOSCOPY, DIAGNOSTIC N/A 08/18/2019 COLONOSCOPY, DIAGNOSTIC performed by Emigdio Lanier MD at [facility] ENDOSCOPY ??? PRO CYSTOSCOPY, INSERT URETERAL STENT Right 09/14/2019 CYSTO, STENT PLACEMENT INTRAOP, TEMPORARY (WRVU 2.82) performed by Werner Fournier MD at [facility] MAIN OR ? ? PRO DEBRIDEMENT MUSCLE AND FASCIA 20 SQ CM/< Midline 08/15/2021 DEBRIDEMENT SKIN, SUBCU, MUSCLE, ABDOMEN (WRVU 2.7) performed by Olya Daniel MD at [facility] MAIN OR ? ? PRO DEBRIDEMENT SUBCUTANEOUS TISSUE 20 SQCM/< Midline 08/17/2021 DEBRIDEMENT SKIN AND SUBCU, FIRST 20 SQ CM, ABDOMEN (WRVU 1.01) performed by Negro Watters MD [facility] MAIN OR ??? PRO EXPLORATION OF ABDOMEN N/A 04/25/2020 @EXPLORATORY LAPAROTOMY, WITH/WITHOUT BIOPSY(S) (WRVU 12.54) performed by Liberty Swann MD at [facility] MAIN OR ??? PRO IMPLANT MESH HERNIA REPAIR/DEBRIDEMENT CLOSURE N/A 2021 IMPLANT MESH FOR INCISIONAL OR VENTRAL HERNIA REPAIR (WRVU 4.88) performed by Negro Watters MD at [facility] MAIN OR ??? PRO INCISION AND DRAINAGE ABSCESS SIMPLE/SINGLE N/A 08/12/2021 I & D ABSCESS, SIMPLE OR SINGLE, TRUNK (WRVU 1.22) performed by Joshua Che MD at [facility] OR ??? PRO MOBILIZE SPLENIC FLEX N/A 09/14/2019 @MOBILIZATION OF SPLENIC FLEXURE (WRVU 2.23) performed by Miryam Wiley MD at [facility] OR ??? PRO OMENTAL FLAP, INTRA-ABDOMINAL 09/14/2019 @OMENTAL FLAP, INTRA-ABDOMINAL (WRVU 6.54) performed by Miryam Wiley MD at [facility] OR ??? PRO REPAIR RECURR INCIS HERNIA, DEONTE N/A 04/25/2020 HERNIA REPAIR, VENTRAL OR INCISIONAL, RECURRENT, INCARCERATED (WRVU 15.53) performed by Liberty Swann MD at [facility] OR ??? PRO REPAIR RECURR INCIS HERNIA, DEONTE Left 04/25/2021 HERNIA REPAIR, VENTRAL OR INCISIONAL, RECURRENT, INCARCERATED (WRVU 15.53) performed by Loco White MD at [facility] OR ??? PRO REPAIR RECURR INCIS HERNIA, DEONTE N/A 2021 HERNIA REPAIR, VENTRAL OR INCISIONAL, RECURRENT, INCARCERATED (WRVU 15.53) performed by Negro Watters MD at [facility] OR ??? PRO SEC CLSR SURG WOUND/DEHSN EXTENSIVE/COMPLICATED Midline 08/19/2021 SECONDARY CLOSURE SURGICAL WOUND OR DEHISCENCE, EXTENSIVE OR COMPLICATED, TRUNK (WRVU 12.04) performed by Liberty Swann MD at [facility] OR ??? PRO SIGMOIDOSCOPY, DIAGNOSTIC N/A 09/14/2019 SIGMOIDOSCOPY, FLEXIBLE W/WO SPECIMEN BY BRUSHING OR WASHING (WRVU 0.84) performed by Miryam Wiley MD at [facility] OR ??? TUBAL LIGATION Social History: Home set up: pt lives in a large 2 level home with several family members. All needs met on the 1stlevel and there is a ramp at the entrance. Pt essentially has 24/7 supervision/assist available. Bathroom has a stall shower with grab bars. PLOF: Pt is independent with most ADLs; EMELIA assist with drying off after shower and occasional bathing if needed. Pt wears dresses and slip on shoes. Pt c/o difficulty with anything that requires bending but uses a structural test engineer for picking things up from the floor, a sock aid when she wears socks, and toilet bidet for BM hygiene. Family manages medical front desk coordinator, shopping and cooking. Pt uses a rollator at all times. Pt has been receiving VNA services for nursing services. Prior to her surgery in 2021, pt was fully independent with all I/ADLs but was not working. DME: rollator, shower chair Falls: pt denies falls Precautions/Special Considerations: at risk to fall, midline abdominal incision, abdominal binder Subjective: My knees are really bad so I don't go far. Objective: Seen today for OT evaluation. Pain: 0/10 Vitals: o HR: 68 bpm o SpO2: 95% on RA Cognitive Status/Behavior: ?? Behavior / Mood: alert and cooperative ?? Alert and oriented to: person, place, time and situation ?? Follows commands: multi step and 100% of the time ?? Attention: WFL ?? Safety awareness: WFL Vision & Perception: WNL/WFL corrective lenses surgical sales representative Communication/Hearing: WFL Musculoskeletal: Hand dominance: right Strength/AROM: WFL Skin: midline abdominal incision Activities of Daily Living: Self-feeding: independent Grooming: independent Dressing: NA Bathing: pt reports independence Toileting: max assist for BM hygiene d/t abdominal incision and body habitus. Provided pt with a toilet aid and instructed on use; pt verbalized understanding Functional Mobility: NA; per RN, pt ambulated to/from bathroom with supervision Education: Patient has been educated on Role of occupational therapy/rehabilitation, Transfers, ADL,Positioning, Safety, Functional Mobility, Activity pacing/Energy conservation, Balance, Recommendations and Discharge planning and pt verbalized understanding. Patient status, treatment, and mobility recommendations discussed with nursing. Assessment: Pt has been seen for occupational therapy evaluation. Jahaira Montgomery presents with the following performance skill deficits and client factors: decreased flexibility/ROM, precautions/bracing,compromised mobility status and skin integrity. These performance deficits have led to activity limitations and participation restrictions in the following areas of occupation: toileting, transfers/mobility and home management. However, despite the deficits listed above pt appears to be close to her baseline level of function. Anticipate that pt will return home with assistance once medically ready. Do not anticipate further OT needs while hospitalized. Equipment needs at discharge: Equipment Needs Upon Discharge (OT): None Anticipated Discharge Disposition (OT): home with home health, home with supervision Staff Recommendations: ??? Bathroom/Commode for toileting ??? Reorient pt multiple times a day as needed ??? Assist pt OOB to chair for meals ??? Promote wellbeing through engagement in leisure and relaxation activities ??? Encourage good sleep hygiene with appropriate sleep/wake cycles ??? Utilize upright chair position using bed features or transfer to recliner chair as appropriate ??? Encourage participation in ADL's and provide physical assist only as needed Other Recommendations: No other consults recommended at this time Plan: OT: Therapy Frequency (OT): evaluation only Total Minutes, Occupational Therapy: 23 (Evaluation; 10:36-10:59) 2017 OT Evaluation Code Rationale: ?? Diagnosis & [...] and measurable assessment of functional outcome. Pager: [phone] Patricia Rai, INGRIDR/L Occupational Therapy Rehabilitation Department Uy, Werner Gama MD - 08/20/2021 6:40 PM EDT INFECTIOUS DISEASE FOLLOW-UP NOTE Patient ID: Jahaira Montgomery Room: [address] [place] [address] Active ID Issue(s): Abdominal SSTI infection involving mesh Antimicrobial Therapy: Vancomycin and metronidazole Intercurrent Events/Subjective Data: S/p secondary closure on 08/19 with findings: Findings: Wound clean with beginning of granulation base, additional necrotic fat debrided on the left side ofthe wound with electrocautery back to healthy tissue, small skin flaps raised and skin closed down the midline with 2-0 Prolene over 15 Fr channel drain. Tolerating PO intake, no nausea or vomiting No rash or diarrhea No fevers or rigors Physical Exam: BP 133/64 (BP Location (NBP): Left arm, Patient Position: Lying) Pulse 61 Temp 36.5 ??C (97.7 ??F) (Oral) Resp 16 Ht 149.9 cm (4' 11) Wt 104.3 kg (230 lb) SpO2 93% BMI 46.45 kg/m?? General: awake, alert, obese oriented x 3, non-toxic Eyes: no icterus, no pallor HENT:NC/AT, no nasal secretions, no tonsillar exudates, no thrush, no ulceration Neck: no LAD Cardiovascular: RRR, no murmur Pulmonary: CTA bilateral Abdomen: BS + +abdominal binder; non tender on mild palpation Ext: no pedal edema Skin: no rashes, no splinter hemorrhages Neuro: alert and oriented to person place time and situation. No facial droop. No dysarthia Psych: normal affect R sided GEE surgical drain 08/19 - Medications: Medications reviewed. Labs: Labs reviewed. Vanc trough levels 19.3 Microbiology: 08/12 Abdominal fluid Cx: Mod mixed GP organisms including CoNS/MRSE (S: doxy, TMP-SMX) 08/12 Abdominal fluid Cx: Finegoldia magna (mckeon-S) Imaging: Imaging reviewed. No new imaging today Impression: Jahaira Montgomery is a 61 y.o.female with history of stroke who we are seeing for abdominal incisional SSTI adjacent to biologic mesh with intraoperative cultures growing CoNS and Finegoldia magna. Based onimaging, the fluid collection was superficial without intraperitoneal extension or evidence of hernia. This was supported by intraoperative findings as well. Her wound was closed by secondary closure on 08/19. We initially thought of adding rifampin given the presence of mesh. However, it has significant drug interaction with Plavix which the patient is taking for secondary prevention of stroke. We felt that targeting the CoNS and F.magna with 2 antibiotics would be enough without the need for rifampin. At this juncture, we make the following recommendations below. Recommendations: Please adjust/decrease the dose of IV vancomycin dosing to target trough levels (10-15 mcg/kg) -- discuss with pharmacy If being discharge, please switch IV vancomycin to PO doxycycline 100 mg PO BID Continue PO metronidazole 500 mg PO TID. Continue for at least 4 weeks. Please order outpatient referral to ID. Follow up in ID in 4 weeks, give patient adequate supply of PO doxy and Flagyl until follow up. Duration of therapy ~3-6 months given the presence of the mesh. Patient discussed with ID attending Dr. Tracy. Recommendations discussed with primary treating team. ID consult service will sign off. Please do not hesitate to page ID RED [phone] with any questions or concerns. Werner Harrell MD Infectious Diseases Fellow Pager #: [phone] 08/20/2021 6:22 PM Associated attestation - Liberty Tracy MD - 08/21/2021 9:42 AM EDT I have seen and examined the patient and discussed the assessment and plan with the fellow. I reviewed the fellow's note and I agree with the documented findings and recommendations. Liberty Tracy MD ID Staff Physician Porsha Santos RN - 08/20/2021 2:52 PM EDT RN/CM has updated [employer] rep/[facility]. Pt will NOT be discharged home with VAC in place. Merle Santos RN (Jonas) RN/CM - Cellphone: [phone] Pager: [phone] Covering Service RN/CM Arvin Lacy PT - 08/20/2021 1:15 PM EDT Physical Therapy Evaluation Patient profile: per note, Jahaira Montgomery??is a 61 y.o.??female??with tobacco use, obesity, T2DM (HbA1c 7.1%), chronic knee pain, diverticulitis s/p Lucy's procedure with reversal 03/2019, incarcerated ventral hernia in 04/2020 s/p primary repair, hospitalization in 04/2021 for recurrent incarcerated ventral hernia treated non-operatively, and most recently??s/p??ventral??hernia repair with??Ovitex on-lay??mesh??with 2 supra-mesh drains??07/23/[address] Watters, The left drain was pulled prior todischarge, and the right drain was pulled in clinic 08/07 at which time the shelley were also removed. She complained of pain during that clinic visit and was sent to the ED for further evaluation whereCT scan showed a 9cm collection ventral to the mesh containing a fair amount of gas c/f possible abscess. However, the wound appeared to be healing well, and the air was thought to be related to the JPthat was removed that day since the eyelet was well outside the body, so she was discharged home. She again presented to the ED at a later day with intense pain around her incision and purulent drainage, fever, chills and leukocytosis. She was taken to the operating room on 08/12/21 for I &D of abdominal wall abscess.? 24 hour events/Subjective: - to OR for abd wound closure - pain well controlled on oral medications ?? Surgeries this admission: 08/12: To OR for I&D abdominal wall hernia. 08/14: OR for I&D abdominal wall hernia and wound vac change. 08/18: to OR for vac change 08/20: to OR for abd wound closure over GEE drain. Patient with the following active problems: Past [...] 27.9) performed by Miryam Wiley MD at [facility] MAIN OR ??? PRO COLONOSCOPY, DIAGNOSTIC N/A 08/18/2019 COLONOSCOPY, DIAGNOSTIC performed by Emigdio Lanier MD at [facility] ENDOSCOPY ??? PRO CYSTOSCOPY, INSERT URETERAL STENT Right 09/14/2019 CYSTO, STENT PLACEMENT INTRAOP, TEMPORARY (WRVU 2.82) performed by Werner Fournier MD at [facility] OR ? ? PRO DEBRIDEMENT MUSCLE AND FASCIA 20 SQ CM/< Midline 08/15/2021 DEBRIDEMENT SKIN, SUBCU, MUSCLE, ABDOMEN (WRVU 2.7) performed by Olya Daniel MD at [facility] OR ? ? PRO DEBRIDEMENT SUBCUTANEOUS TISSUE 20 SQCM/< Midline 08/17/2021 DEBRIDEMENT SKIN AND SUBCU, FIRST 20 SQ CM, ABDOMEN (WRVU 1.01) performed by Negro Watters MD [facility] OR ??? PRO EXPLORATORY OF ABDOMEN N/A 04/25/2020 @EXPLORATORY LAPAROTOMY, WITH/WITHOUT BIOPSY(S) (WRVU 12.54) performed by Liberty Swann MD at [facility] OR ??? PRO IMPLANT MESH HERNIA REPAIR/DEBRIDEMENT CLOSURE N/A 2021 IMPLANT MESH FOR INCISIONAL OR VENTRAL HERNIA REPAIR (WRVU 4.88) performed by Negro Watters MD at [facility] OR ??? PRO INCISION AND DRAINAGE ABSCESS SIMPLE/SINGLE N/A 08/12/2021 I & D ABSCESS, SIMPLE OR SINGLE, TRUNK (WRVU 1.22) performed by Joshua Che MD at [facility] OR ??? PRO MOBILIZE SPLENIC FLEX N/A 09/14/2019 @MOBILIZATION OF SPLENIC FLEXURE (WRVU 2.23) performed by Miryam Wiley MD at [facility] OR ??? PRO OMENTAL FLAP, INTRA-ABDOMINAL 09/14/2019 @OMENTAL FLAP, INTRA-ABDOMINAL (WRVU 6.54) performed by Miryam Wiley MD at [facility] OR ??? PRO REPAIR RECURR INCIS HERNIA, DEONTE N/A 04/25/2020 HERNIA REPAIR, VENTRAL OR INCISIONAL, RECURRENT, INCARCERATED (WRVU 15.53) performed by Liberty Swann MD at [facility] OR ??? PRO REPAIR RECURR INCIS HERNIA, DEONTE Left 04/25/2021 HERNIA REPAIR, VENTRAL OR INCISIONAL, RECURRENT, INCARCERATED (WRVU 15.53) performed by Loco White MD at [facility] OR ??? PRO REPAIR RECURR INCIS HERNIA, DEONTE N/A 2021 HERNIA REPAIR, VENTRAL OR INCISIONAL, RECURRENT, INCARCERATED (WRVU 15.53) performed by Negro Watters MD at [facility] MAIN OR ??? PRO SEC CLSR SURG WOUND/DEHSN EXTENSIVE/COMPLICATED Midline 08/19/2021 SECONDARY CLOSURE SURGICAL WOUND OR DEHISCENCE, EXTENSIVE OR COMPLICATED, TRUNK (WRVU 12.04) performed by Liberty Swann MD at [facility] MAIN OR ??? PRO SIGMOIDOSCOPY, DIAGNOSTIC N/A 09/14/2019 SIGMOIDOSCOPY, FLEXIBLE W/WO SPECIMEN BY BRUSHING OR WASHING (WRVU 0.84) performed by Miryam Wiley MD at [facility] MAIN OR ??? TUBAL LIGATION Social History: Pt lives with multiple family members in a large house, she has all needs on main floor and has rampto enter. She has bad knees, and she uses a rollator walker at all times. She is indep at home, doesnot drive, and does not walk long distances. Precautions/Special Considerations: midline incision, abdominal binder, obesity Mobility and Positioning Recommendations: ?? Pt. to utilize walker and indep other than help for IV pole, for ambulation and transfers with nursing. ?? Please encourage up to chair for meal times as able. ?? Pt encouraged to ambulate frequently with staff, getting into the bathroom for toileting and walking out in the king >/= 3 times daily as able. Subjective: ???I can walk, no problem I've walked out her a few times?? Objective: Pt seen for evaluation today. Pain: moderate Vital Signs: stable Mental Status: alert, oriented to person, place, and time Musculoskeletal: ROM: WFL, limited d/t body habitus baseline Strength: WFL Bed Mobility: Supine to Sit: indep Sit to Supine: indep Transfers: Sit to Stand: indep Stand to Sit: indep Gait: Distance: 150 feet Device used: front wheel walker Level of assist: indep other than help for IV pole Gait mechanics: steady, normal Balance: Sitting Static: good Sitting Dynamic: good Standing Static: good with walker Standing Dynamic / Gait: Good with walker Education: patient has been educated on Bed mobility, Role of therapy and Discharge planning and verbalizes understanding. Patient status, treatment, and mobility recommendations discussed with nursing. Assessment: Jahaira Montgomery was seen today for physical therapy evaluation. The patient tolerated the PT eval well. She is essentially at or very near her functional baseline and has no ongoing PT needs. Discharge Recommendations: Based on the current findings, Anticipated Discharge Disposition (PT): home with daily check in whenmedically ready for hospital discharge. Consult Recommendations: No other consults recommended at this time Equipment needs: Anticipated Equipment Needs at Discharge (PT): None Plan: Therapy Frequency (PT): evaluation only. Patient/family understand and agree with plan as [...] in this evaluation. Time IN / OUT: 5414-8567 Total Minutes, Physical Therapy: 15 Billing Code: Swetha Lacy, PT Pager: [phone] Physical Therapy Inpatient Rehabilitation Department Ai Arriaza MD - 08/20/2021 11:05 AM EDT Images from the original note were not included. Acute Care Surgery Inpatient Progress Note ID: Jahaira Montgomery is a 61 y.o. female with tobacco use, obesity, T2DM (HbA1c 7.1%), chronic knee pain, diverticulitis s/p Lucy's procedure with reversal 03/2019, incarcerated ventral hernia in /p primary repair, hospitalization in 04/2021 for recurrent incarcerated ventral hernia treated non-operatively, and most recently s/p ventral hernia repair with Ovitex on-lay mesh with 2 supra-mesh drains 07/23/[address] Watters, The left drain was pulled prior to discharge, and the right drain was pulled in clinic 08/07 at which time the shelley were also removed. She complained of pain during that clinic visit and was sent to the ED for further evaluation where CT scan showed a 9cm collection ventral to the mesh containing a fair amount of gas c/f possible abscess. However, the wound appeared to be healing well, and the air was thought to be related to the GEE that was removed that day since the eyelet was well outside the body, so she was discharged home. ?? She again presented to the ED at a later day with intense pain around her incision and purulent drainage, fever, chills and leukocytosis. She was taken to the operating room on 08/12/21 for I &D of abdominal wall abscess. 24 hour events/Subjective: - to OR for abd wound closure - pain well controlled on oral medications Hospital Course: 08/12: To OR for I&D abdominal wall hernia. 08/13: Pain well controlled. 08/14: OR for I&D abdominal wall hernia and wound vac change. 08/15: no changes 08/16: vac reinforced in the morning with good seal. ID consult, flagyl added. 08/17: no changes 08/18: to OR for vac change 08/19: No changes 08/20: to OR for abd wound closure over GEE drain. O: Vitals: Afebrile, HR and BP WNL, saturating over 90% on RA General: Sitting comfortably in bed, conversant Neuro: alert and oriented, speech normal, moves all extremities spontaneously HEENT: no scleral icterus Cardio: Regular rate Pulm: breathing comfortably on RA Abd: soft, nondistended, appropriate adrián-incisional tenderness, midline incision with dressing C/D/I, GEE with SS output. Abd binder in place Extremities: WWP, no edema Labs reviewed Micro: Microbiology Results (Last 30 days) Procedure Component Value Units Date/Time Body Fluid Culture, Aerobic & Anaerobic Abdominal Fluid [[id number]] (Abnormal) Collected: 08/12/211948 Lab Status: Preliminary result Specimen: Abdominal Fluid Updated: 08/14/21 1059 Tissue Culture, Aerobic & Anaerobic Stomach [[id number]] (Abnormal) Collected: 08/12/211948 Lab Status: Preliminary result Specimen: Stomach Updated: 08/15/21 0949 Body Fluid Culture, Aerobic [[id number]] (Abnormal) Collected: 08/12/211948 Lab Status: Preliminary result Specimen: Abdominal Fluid Updated: 08/14/21 1059 Body Fluid Culture -- Moderate mixed Gram Positive organisms including Coagulase negative Staphylococcus species Gram Stain -- Cytocentrifuge Gram Stain performed Neutrophils seen Many Gram Positive Cocci seen Results called to and read back by Dilip rojas 08/12/21 22:08:54 WS Anaerobic Culture [[id number]] Collected: 08/12/211948 Lab Status: Preliminary result Specimen: Abdominal Fluid Updated: 08/13/21 1135 Anaerobic Culture No anaerobic organisms isolated to date Tissue culture [[id number]] (Abnormal) (Susceptibility) Collected: 08/12/211948 Lab Status: Preliminary result Specimen: Stomach Updated: 08/15/21 0949 Tissue Culture Moderate Coagulase negative Staphylococcus species Gram Stain -- Moderate Neutrophils seen Moderate Gram Positive Cocci seen Results called to and read back by maritza 08/12/21 21:42:05 WS Susceptibility Coagulase negative staphylococcus species MICROSCAN METHOD Ciprofloxacin Sensitive Clindamycin Resistant Erythromycin Resistant Gentamicin Sensitive [1] Levofloxacin Sensitive Oxacillin Resistant Tetracycline Sensitive Trimethoprim/Sulfa Sensitive Vancomycin Sensitive [1] Gentamicin is not appropriate for [place]-therapy. Linear View A/P: 61 year old female with history as above admitted for abdominal wall abscess now s/p I&D inOR and vac placement, serial returns to the operating room for wound vac changes and now s/p abd wound closure over surgical drain on 08/19/21. Pain is well controlled on PO medications. - continue vanc, flagyl. Appreciate ID recommendations for oral abx treatment plan as pt nears discharge criteria. - cultures with coag negative staph - PT evaluation - Carb Control diet 60/60/75 CHO counting level 2 NEURO: ileana tylenol for pain, dilaudid, lidocaine patches CV: Hemodynamically normal. Atorvastatin, hctz PULM: Encourage OOB/IS GI/FEN: Carb Control diet 60/60/75 CHO counting level 2 at midnight for OR , pericolace, bisacodyl; replete electrolytes PRN RENAL: UOP adequate ENDO: SSI HEME: DVT ppx with lovenox ID: Vanc, flagyl MSK: RADHA PPX: PPI, IS, SCDs LINES: PIV DISPO: Floor status, Attempt Cardiopulmonary Resuscitation - Inpatient Rosmery Moreno MD 08/20/21 Acute Care Surgery Pager: [phone] Attending Addendum I have seen and examined the patient, I have reviewed the vitals, labs and pertinent imaging. I havediscussed the documentation above and agree, with the following comments: Wound now closed and drain in place. Working towards discharge. Mobilizing more today. PT/OT involved. Appreciate ID recommendations for abx course. On oral medications at this time and doing well, will monitor progress. If continued progress, could discharge in next 48 hours. Ai Arriaza MD [phone] Sabrina Corona RN - 08/20/2021 6:43 AM EDT OUTCOME EVALUATION NOTE: OUTCOME SUMMARY: Pt AO x4. Vitals WNL. 1L NC O2 needed at NOC. S/p Secondary wound closure and GEE drain placement. Pain of 9-10/10, managed with PRN Dilaudid. Midline dressing CDI. GEE drain with good output. Abdominal binder in place. Refused to get OOB, so bedpan being used. No other concerns. ?? PLAN MOVING FORWARD: DC planning Pain and post-op management ?? INDIVIDUALIZED FALL PREVENTION INTERVENTIONS: Patient-specific fall risk factors per assessment: [current deficits]: IV lines, hospital environment, narcotics. ?? Assistance [level of assistance required for transfers and ambulation]: Currently on bed. Refused to get OOB due to pain. Was SBA FWW prior to surgery. ?? Supervision [direct monitoring required during toileting and ADLs]: Hands on. ?? Surveillance [continuous indirect monitoring]: Call glover within reach, purposeful hourly rounding. ?? Patient-specific fall prevention interventions for sensory deficits provided, if applicable: Yes, non-skid socks when OOB. Room near unit. ?? CPG Goal Outcome Evaluation: Ongoing. Farnaz Moeller RN - 08/19/2021 6:35 PM EDT Handoff from Clarissa. Patient resting with eyes closed. VSS. 1940 - Report called to GENA Bennett. Nadir Prather Jr., MD - 08/19/2021 6:00 PM EDT Post-Op Check Note ID: Patient Name: Jahaira Montgomery : 1960 Jahaira Montgomery is a 61 y.o. female s/p closure of midline wound S: Patient sleeping comfortably. No chest pain or SOB. Abdominal binder in place. Surgical bandage intact. O: Temp: [36.8 ??C (98.2 ??F)] Heart Rate: -- Resp: [18] BP: (115)/(64) SpO2: [92 %] Heart Rate from SpO2: [70 bpm] Physical Exam: GEN: NAD, sleeping comfortably CV: regular rate PULM: no increased work of breathing on RA ABD: soft, appropriately tender, binder in place, surgical dressing intact minimal SS output from drain EXT: WWP, no LE edema NEURO: grossly intact A&P: Jahaira Montgomery is a 61 y.o. female s/p midline wound closure currently in stable condition and recovering well. - Vitals: WNL - Pain: well controlled - Volume status: appears euvolemic - Diet: Carb Control diet 60/60/75 CHO counting level 2 - DVT prophylaxis: Lovenox, SCDs - Labs: none - Imaging: none - Dispo: floor status - Continue post operative plan per primary team Nadir Prather Jr, MD General Surgery PGY-1 Ai Arriaza MD - 08/19/2021 9:19 AM EDT Images from the original note were not included. Acute Care Surgery Inpatient Progress Note ID: Jahaira Montgomery is a 61 y.o. female with tobacco use, obesity, T2DM (HbA1c 7.1%), chronic knee pain, diverticulitis s/p Lucy's procedure with reversal 03/2019, incarcerated ventral hernia in /p primary repair, hospitalization in 04/2021 for recurrent incarcerated ventral hernia treated non-operatively, and most recently s/p ventral hernia repair with Ovitex on-lay mesh with 2 supra- mesh drains 07/23/[address] Watters, The left drain was pulled prior to discharge, and the right drain was pulled in clinic 08/07 at which time the shelley were also removed. She complained of pain during that clinic visit and was sent to the ED for further evaluation where CT scan showed a 9cm collection ventral to the mesh containing a fair amount of gas c/f possible abscess. However, the wound appeared to be healing well, and the air was thought to be related to the GEE that was removed that day since the eyelet was well outside the body, so she was discharged home. ?? She again presented to the ED at a later day with intense pain around her incision and purulent drainage, fever, chills and leukocytosis. She was taken to the operating room on 08/12/21 for I &D of abdominal wall abscess. 24 hour events/Subjective: - no acute events overnight Hospital Course: 08/12: To OR for I&D abdominal wall hernia. 08/13: Pain well controlled. 08/14: OR for I&D abdominal wall hernia and wound vac change. 08/15: no changes 08/16: vac reinforced in the morning with good seal. ID consult, flagyl added. 08/17: no changes 08/18: to OR for vac change O: Vitals: Afebrile, HR and BP WNL, saturating over 90% on RA General: Sitting comfortably in bed, conversant Neuro: alert and oriented, speech normal, moves all extremities spontaneously HEENT: no scleral icterus Cardio: Regular rate Pulm: breathing comfortably on RA Abd: soft, nondistended, adrián-incisional tenderness (on left side), mid wound vac in place holding suction. Extremities: WWP, no edema Labs reviewed Notable for creatinine 0.78 from 0.44 Micro: Microbiology Results (Last 30 days) Procedure Component Value Units Date/Time Body Fluid Culture, Aerobic & Anaerobic Abdominal Fluid [[id number]] (Abnormal) Collected: 08/12/211948 Lab Status: Preliminary result Specimen: Abdominal Fluid Updated: 08/14/21 1059 Tissue Culture, Aerobic & Anaerobic Stomach [[id number]] (Abnormal) Collected: 08/12/211948 Lab Status: Preliminary result Specimen: Stomach Updated: 08/15/21 0949 Body Fluid Culture, Aerobic [[id number]] (Abnormal) Collected: 05/30/22 1949 Lab Status: Preliminary result Specimen: Abdominal Fluid Updated: 08/14/21 1059 Body Fluid Culture -- Moderate mixed Gram Positive organisms including Coagulase negative Staphylococcus species Gram Stain -- Cytocentrifuge Gram Stain performed Neutrophils seen Many Gram Positive Cocci seen Results called to and read back by Dilip rojas 08/12/21 22:08:54 WS Anaerobic Culture [[id number]] Collected: 08/12/211948 Lab Status: Preliminary result Specimen: Abdominal Fluid Updated: 08/13/21 1135 Anaerobic Culture No anaerobic organisms isolated to date Tissue culture [[id number]] (Abnormal) (Susceptibility) Collected: 08/12/211948 Lab Status: Preliminary result Specimen: Stomach Updated: 08/15/21 0949 Tissue Culture Moderate Coagulase negative Staphylococcus species Gram Stain -- Moderate Neutrophils seen Moderate Gram Positive Cocci seen Results called to and read back by maritza 08/12/21 21:42:05 WS Susceptibility Coagulase negative staphylococcus species MICROSCAN METHOD Ciprofloxacin Sensitive Clindamycin Resistant Erythromycin Resistant Gentamicin Sensitive [1] Levofloxacin Sensitive Oxacillin Resistant Tetracycline Sensitive Trimethoprim/Sulfa Sensitive Vancomycin Sensitive [1] Gentamicin is not appropriate for [place]-therapy. Linear View A/P: 61 year old female with history as above admitted for abdominal wall abscess now s/p I&D inOR and vac placement. - continue vanc, flagyl - cultures with coag negative staph - to OR for vac change today - IVF while NPO given slight increase in creatinine. After OR will encourage PO hydration. NEURO: ileana tylenol for pain, dilaudid, lidocaine patches CV: Hemodynamically normal. Atorvastatin, hctz PULM: Encourage OOB/IS GI/FEN: NPO diet (Give Meds) at midnight for OR , pericolace, bisacodyl; replete electrolytes PRN RENAL: UOP adequate ENDO: SSI HEME: DVT ppx with lovenox ID: Vanc, flagyl MSK: RADHA PPX: PPI, IS, SCDs LINES: PIV DISPO: Floor status, Attempt Cardiopulmonary Resuscitation - Inpatient Rosmery Moreno MD 08/19/21 Acute Care Surgery Pager: [phone] Attending Addendum I have seen and examined the patient, I have reviewed the vitals, labs and pertinent imaging. I havediscussed the documentation above and agree, with the following comments: Return to OR for evaluation of wound and possible closure today. Slight increase in creatinine but appears well, no hemodynamic concerns, receiving IVF while NPO. Ai Arriaza MD [phone] Loco White MD - 08/18/2021 9:25 AM EDT Images from the original note were not included. Acute Care Surgery Inpatient Progress Note ID: Jahaira Montgomery is a 61 y.o. female with tobacco use, obesity, T2DM (HbA1c 7.1%), chronic knee pain, diverticulitis s/p Lucy's procedure with reversal 03/2019, incarcerated ventral hernia in /p primary repair, hospitalization in 04/2021 for recurrent incarcerated ventral hernia treated non-operatively, and most recently s/p ventral hernia repair with Ovitex on-lay mesh with 2 supra-mesh drains 07/23/[address] Watters, The left drain was pulled prior to discharge, and the right drain was pulled in clinic 08/07 at which time the shelley were also removed. She complained of pain during that clinic visit and was sent to the ED for further evaluation where CT scan showed a 9cm collection ventral to the mesh containing a fair amount of gas c/f possible abscess. However, the wound appeared to be healing well, and the air was thought to be related to the GEE that was removed that day since the eyelet was well outside the body, so she was discharged home. ?? She again presented to the ED at a later day with intense pain around her incision and purulent drainage, fever, chills and leukocytosis. She was taken to the operating room on 08/12/21 for I &D of abdominal wall abscess. 24 hour events/Subjective: - Patient went to OR yesterday for abdominal wound vac change. - no acute events overnight Hospital Course: 08/12: To OR for I&D abdominal wall hernia. 08/13: Pain well controlled. 08/14: OR for I&D abdominal wall hernia and wound vac change. 08/15: no changes 08/16: vac reinforced in the morning with good seal. ID consult, flagyl added. 08/17: OR for I&D abdominal wall hernia and wound vac change. O: Vitals: Afebrile, HR and BP WNL, saturating over 90% on RA General: Sitting comfortably in bed, conversant Neuro: alert and oriented, speech normal, moves all extremities spontaneously HEENT: no scleral icterus Cardio: Regular rate Pulm: breathing comfortably on RA Abd: soft, nondistended, adrián-incisional tenderness (on left side), mid wound vac in place holding suction. Extremities: WWP, no edema Labs reviewed Micro: Microbiology Results (Last 30 days) Procedure Component Value Units Date/Time Body Fluid Culture, Aerobic & Anaerobic Abdominal Fluid [[id number]] (Abnormal) Collected: 08/12/211948 Lab Status: Preliminary result Specimen: Abdominal Fluid Updated: 08/14/21 1059 Tissue Culture, Aerobic & Anaerobic Stomach [[id number]] (Abnormal) Collected: 08/12/211948 Lab Status: Preliminary result Specimen: Stomach Updated: 08/15/21 0949 Body Fluid Culture, Aerobic [[id number]] (Abnormal) Collected: 08/12/211948 Lab Status: Preliminary result Specimen: Abdominal Fluid Updated: 08/14/21 1059 Body Fluid Culture -- Moderate mixed Gram Positive organisms including Coagulase negative Staphylococcus species Gram Stain -- Cytocentrifuge Gram Stain performed Neutrophils seen Many Gram Positive Cocci seen Results called to and read back by Dilip rojas 08/12/21 22:08:54 WS Anaerobic Culture [[id number]] Collected: 08/12/211948 Lab Status: Preliminary result Specimen: Abdominal Fluid Updated: 08/13/21 1135 Anaerobic Culture No anaerobic organisms isolated to date Tissue culture [[id number]] (Abnormal) (Susceptibility) Collected: 08/12/211948 Lab Status: Preliminary result Specimen: Stomach Updated: 08/15/21 0949 Tissue Culture Moderate Coagulase negative Staphylococcus species Gram Stain -- Moderate Neutrophils seen Moderate Gram Positive Cocci seen Results called to and read back by maritza 08/12/21 21:42:05 WS Susceptibility Coagulase negative staphylococcus species MICROSCAN METHOD Ciprofloxacin Sensitive Clindamycin Resistant Erythromycin Resistant Gentamicin Sensitive [1] Levofloxacin Sensitive Oxacillin Resistant Tetracycline Sensitive Trimethoprim/Sulfa Sensitive Vancomycin Sensitive [1] Gentamicin is not appropriate for [place]-therapy. Linear View A/P: 61 year old female with history as above admitted for abdominal wall abscess now s/p I&D inOR and vac placement. - Continue vanc, flagyl. ID consult, appreciate recommendations - Cultures with coag negative staph - to OR tomorrow for vac change, NPO at midnight NEURO: ileana tylenol for pain, dilaudid, lidocaine patches CV: Hemodynamically normal. Atorvastatin, hctz PULM: Encourage OOB/IS GI/FEN: Carb Control diet 60/60/75 CHO counting level 2 NPO diet (Give Meds) at midnight for OR tomorrow, pericolace, bisacodyl; replete electrolytes PRN RENAL: UOP adequate ENDO: SSI HEME: DVT ppx with lovenox ID: Vanc, flagyl MSK: RADHA PPX: PPI, IS, SCDs LINES: PIV DISPO: Floor status, Attempt Cardiopulmonary Resuscitation - Inpatient John Reyes MD 08/18/21 Acute Care Surgery Pager: [phone] SURGICAL ATTENDING NOTE: Pt seen and examined with the resident staff on AM rounds and I agree with the above note and plan with the following additions/modifications. No acute events overnight. Patient had her VAC changed yesterday with no issues. She is scheduled to have it repeated again tomorrow. She has no complaints atthe present time include any nausea or vomiting or fevers or chills. She states her pain is being adequately controlled. She is tolerating a diet without difficulty. Presently patient is on vancomycin and Flagyl for both coag negative staph as well as Finegoldia magna with antibiotic sensitivities pending. Will discuss with infectious disease today regarding appropriate antibiotic regimen. Given thatthe mesh is completely covered by fascia on the completely sure we need to continue with prolonged IV antibiotics but will continue them until after the operating room tomorrow. We will consider possible wound closure over drain tomorrow if the wound bed looks healthy in appearance. Otherwise as noted above. BT Gabriela Acharya MD - 08/17/2021 6:48 PM EDT Post-Operative Progress Note Jahaira Montgomery 08/17/2021 Surgery/Issue: Procedure(s): DEBRIDEMENT SKIN AND SUBCU, FIRST 20 SQ CM, ABDOMEN (WRVU 1.01) MODIFIER WOUND VAC Date of surgery: 08/17/2021 Subjective/Events: Pt was seen and examined. She having some LLQ abdominal pain similar to previous but was somewhat uncomfortable because of it. No tenderness around or under where the wound vac was replaced. Patient eating and drinking well, tolerating PO intake, no N/V. Objcetive: Temp: [36.6 ??C (97.9 ??F)] Heart Rate: -- Resp: [16-18] BP: (154-156)/(68-86) SpO2: [91 %-95 %] Heart Rate from SpO2: [58 bpm] Intake/Output Summary (Last 24 hours) at 08/17/2021 2247 Last data filed at 08/17/2021 1856 Gross per 24 hour Intake 1268 ml Output 2350 ml Net -1082 ml Lab Results Component Value Date NA 137 08/15/2021 K 3.5 08/15/2021 CL 101 08/15/2021 CO2 28 08/15/2021 BUN 17 08/15/2021 CREATININE 0.44 (L) 08/15/2021 GLUCOSE 106 08/15/2021 CALCIUM 8.6 08/15/2021 Lab Results Component Value Date WBC 12.1 (H) 08/13/2021 HGB 11.5 (L) 08/13/2021 HCT 36.2 08/13/2021 MCV 92.3 08/13/2021 PLATELET 374 (H) 08/13/2021 Lab Results Component Value Date INR 1.0 2021 Exam: General: alert, no acute distress Head: atraumatic, non cyanotic Cardiac: regular rate Pulmonary: normal respiratory effort. Abdominal: tenderness to palpation over the LLQ, midline vac in place with excellent seal. Neuro: grossly intact, follows commands, moving all extremities Psych: normal affect, good insight/judgment A/P: Jahaira Montgomery is a 61 y.o. female patient s/p wound vac change in OR. 1. Pain - controlled 2. Nausea - denies 3. Specific c/o - none 4. Volume status - Urine output adequate 5. DVT prophylaxis - SCDs, enoxaparin 6. Diet: Carb Control diet 60/60/75 CHO counting level 2 7. Requested Imaging: none 8. Disposition - floor status Gabriela Acharya MD PGY1 General Surgery Miryam Youngblood RN - 08/17/2021 12:36 PM EDT 1222 pt admitted from OR s/p wound vac change. Monitors attached and alarms set. Report received from OR team. Pt arrousable, following simple commands, c/o abd discomfort. wcm 1255 Pt grabbing abdomen and shifting belly complaining of left sided pain. Medicated with 0.2 of IVDilaudid and 4 mg PO. VSS. WCM. 1345 report given and patient transported back to her room. Loco White MD - 08/17/2021 11:30 AM EDT Images from the original note were not included. Acute Care Surgery Inpatient Progress Note ID: Jahaira Montgomery is a 61 y.o. female with tobacco use, obesity, T2DM (HbA1c 7.1%), chronic knee pain, diverticulitis s/p Lucy's procedure with reversal 03/2019, incarcerated ventral hernia in /p primary repair, hospitalization in 04/2021 for recurrent incarcerated ventral hernia treated non-operatively, and most recently s/p ventral hernia repair with Ovitex on-lay mesh with 2 supra- mesh drains 07/23/[address] Watters, The left drain was pulled prior to discharge, and the right drain was pulled in clinic 08/07 at which time the shelley were also removed. She complained of pain during that clinic visit and was sent to the ED for further evaluation where CT scan showed a 9cm collection ventral to the mesh containing a fair amount of gas c/f possible abscess. However, the wound appeared to be healing well, and the air was thought to be related to the GEE that was removed that day since the eyelet was well outside the body, so she was discharged home. ?? She again presented to the ED at a later day with intense pain around her incision and purulent drainage, fever, chills and leukocytosis. She was taken to the operating room on 08/12/21 for I &D of abdominal wall abscess. 24 hour events/Subjective: - no acute events overnight Hospital Course: 08/12: To OR for I&D abdominal wall hernia. 08/13: Pain well controlled. 08/14: OR for I&D abdominal wall hernia and wound vac change. 08/15: no changes 08/16: vac reinforced in the morning with good seal. ID consult, flagyl added. O: Vitals: Afebrile, HR and BP WNL, saturating over 90% on RA General: Sitting comfortably in bed, conversant Neuro: alert and oriented, speech normal, moves all extremities spontaneously HEENT: no scleral icterus Cardio: Regular rate Pulm: breathing comfortably on RA Abd: soft, nondistended, adrián-incisional tenderness (on left side), mid wound vac in place holding suction. Extremities: WWP, no edema Labs reviewed Notable for downtrending leukocytosis normalized K Micro: Microbiology Results (Last 30 days) Procedure Component Value Units Date/Time Body Fluid Culture, Aerobic & Anaerobic Abdominal Fluid [[id number]] (Abnormal) Collected: 08/12/211948 Lab Status: Preliminary result Specimen: Abdominal Fluid Updated: 08/14/21 1059 Tissue Culture, Aerobic & Anaerobic Stomach [[id number]] (Abnormal) Collected: 08/12/211948 Lab Status: Preliminary result Specimen: Stomach Updated: 08/15/21 0949 Body Fluid Culture, Aerobic [[id number]] (Abnormal) Collected: 08/12/211948 Lab Status: Preliminary result Specimen: Abdominal Fluid Updated: 08/14/21 1059 Body Fluid Culture -- Moderate mixed Gram Positive organisms including Coagulase negative Staphylococcus species Gram Stain -- Cytocentrifuge Gram Stain performed Neutrophils seen Many Gram Positive Cocci seen Results called to and read back by Dilip rojas 08/12/21 22:08:54 WS Anaerobic Culture [[id number]] Collected: 08/12/211948 Lab Status: Preliminary result Specimen: Abdominal Fluid Updated: 08/13/21 1135 Anaerobic Culture No anaerobic organisms isolated to date Tissue culture [[id number]] (Abnormal) (Susceptibility) Collected: 08/12/211948 Lab Status: Preliminary result Specimen: Stomach Updated: 08/15/21 0949 Tissue Culture Moderate Coagulase negative Staphylococcus species Gram Stain -- Moderate Neutrophils seen Moderate Gram Positive Cocci seen Results called to and read back by maritza 08/12/21 21:42:05 WS Susceptibility Coagulase negative staphylococcus species MICROSCAN METHOD Ciprofloxacin Sensitive Clindamycin Resistant Erythromycin Resistant Gentamicin Sensitive [1] Levofloxacin Sensitive Oxacillin Resistant Tetracycline Sensitive Trimethoprim/Sulfa Sensitive Vancomycin Sensitive [1] Gentamicin is not appropriate for [place]-therapy. Linear View A/P: 61 year old female with history as above admitted for abdominal wall abscess now s/p I&D inOR and vac placement. - continue vanc, flagyl - cultures with coag negative staph - to OR for vac change NEURO: ileana tylenol for pain, dilaudid, lidocaine patches CV: Hemodynamically normal. Atorvastatin, hctz PULM: Encourage OOB/IS GI/FEN: NPO diet (Give Meds) at midnight for OR tomorrow, pericolace, bisacodyl; replete electrolytes PRN RENAL: UOP adequate ENDO: SSI HEME: DVT ppx with lovenox ID: Vanc, flagyl MSK: RADHA PPX: PPI, IS, SCDs LINES: PIV DISPO: Floor status, Attempt Cardiopulmonary Resuscitation - Inpatient Rosmery Moreno MD 08/17/21 Acute Care Surgery Pager: [phone] SURGICAL ATTENDING NOTE: Pt seen and examined with the resident staff on AM rounds and I agree with the above note and plan with the following additions/modifications. Patient overall doing well. She remains afebrile stable vitals. Plan is for OR today for VAC sponge change and wound evaluation. We will continue antibiotics until we have complete speciation and sensitivities. Otherwise as noted above. Ralph Abdullahi RN - 08/17/2021 6:52 AM EDT OUTCOME EVALUATION NOTE: OUTCOME SUMMARY: Pt is A/Ox4 and VSS on RA. No complaints of nausea, SOB or numbness/tingling. Pain reported in abdomen. Pain managed with scheduled and PRN medications. Pt up to bathroom to void, adequate output. WV in abdomen to -125. NPO at 0000 for OR today. Pt able to rest in between care overnight. PLAN MOVING FORWARD: Discharge planning Encourage ambulation Monitor I&O INDIVIDUALIZED FALL PREVENTION INTERVENTIONS: Patient-specific fall risk factors per assessment: [current deficits]: Tethering lines, recent surgery, narcotics, weakness, mobility aid, unfamiliar environment Assistance [level of assistance required for transfers and ambulation]: SBA w/ walker Supervision [direct monitoring required during toileting and ADLs]: SBA Surveillance [continuous indirect monitoring]: Purposeful rounding, call glover within reach Patient-specific fall prevention interventions for sensory deficits provided, if applicable: [X] No CPG GOAL OUTCOME EVALUATION: Loco White MD - 08/16/2021 1:12 PM EDT Acute Care Surgery Inpatient Progress Note ID: Jahaira Montgomery is a 61 y.o. female with tobacco use, obesity, T2DM (HbA1c 7.1%), chronic knee pain, diverticulitis s/p Lucy's procedure with reversal 03/2019, incarcerated ventral hernia in /p primary repair, hospitalization in 04/2021 for recurrent incarcerated ventral hernia treated non-operatively, and most recently s/p ventral hernia repair with Ovitex on-lay mesh with 2 supra-mesh drains 07/23/[address] Watters, The left drain was pulled prior to discharge, and the right drain was pulled in clinic 08/07 at which time the shelley were also removed. She complained of pain during that clinic visit and was sent to the ED for further evaluation where CT scan showed a 9cm collection ventral to the mesh containing a fair amount of gas c/f possible abscess. However, the wound appeared to be healing well, and the air was thought to be related to the GEE that was removed that day since the eyelet was well outside the body, so she was discharged home. ?? She again presented to the ED at a later day with intense pain around her incision and purulent drainage, fever, chills and leukocytosis. She was taken to the operating room on 08/12/21 for I &D of abdominal wall abscess. 24 hour events/Subjective: - Lilypad on wound vac changed overnight. Alarming leak again this morning, reinforced at bedside, holding suction. - She endorses adrián-incisional pain on left side this morning, otherwise no nausea, emesis, chest pain, or SOB. Hospital Course: 08/12: To OR for I&D abdominal wall hernia. 08/13: Pain well controlled. 08/14: OR for I&D abdominal wall hernia and wound vac change. Reeder discontinues, voiding. 08/15: No acute events. O: Vitals: Afebrile, HR and BP WNL, saturating over 90% on RA General: Sitting comfortably in bed, conversant Neuro: alert and oriented, speech normal, moves all extremities spontaneously HEENT: no scleral icterus Cardio: Regular rate Pulm: breathing comfortably on RA Abd: soft, nondistended, adrián-incisional tenderness (on left side), abd wound vac in place holding suction. Extremities: WWP, no edema Labs reviewed Notable for vancomycin trough 20.1 Micro: Tissue culture [[id number]] (Abnormal) Collected: 08/12/211948 Lab Status: Preliminary result Specimen: Stomach Updated: 08/15/21 0949 Tissue Culture Moderate Coagulase negative Staphylococcus species??Abnormal?? Gram Stain --??Abnormal?? Moderate Neutrophils seen Moderate Gram Positive Cocci seen Results called to and read back by maritza ??08/12/21 21:42:05 WS ??Abnormal?? Susceptibility Coagulase negative staphylococcus species MICROSCAN METHOD Ciprofloxacin Sensitive Clindamycin Resistant Erythromycin Resistant Gentamicin Sensitive 1 Levofloxacin Sensitive Oxacillin Resistant Tetracycline Sensitive Trimethoprim/Sulfa Sensitive Vancomycin Sensitive ?? A/P: 61 year old female with history as above admitted for abdominal wall abscess now s/p I&D inOR and vac placement. - continue vanc - cultures with coag negative staph, ID for further abx management - to OR tomorrow for vac change, NPO at midnight NEURO: ileana tylenol for pain, dilaudid, lidocaine patches CV: Hemodynamically normal. Atorvastatin, hctz PULM: Encourage OOB/IS GI/FEN: Carb Control diet 75/75/90 CHO counting level 3 NPO diet (Give Meds) at midnight for OR tomorrow, pericolace, bisacodyl; replete electrolytes PRN RENAL: UOP adequate ENDO: SSI HEME: DVT ppx with lovenox ID: Vanc MSK: RADHA PPX: PPI, IS, SCDs LINES: PIV DISPO: Floor status, Attempt Cardiopulmonary Resuscitation - Inpatient Rosmery Moreno MD 08/16/21 Acute Care Surgery Pager: [phone] SURGICAL ATTENDING NOTE: Pt seen and examined with the resident staff on AM rounds and I agree with the above note and plan with the following additions/modifications. Events overnight include a leaking VAC sponge that was corrected quite easily at the bedside. She otherwise remains afebrile with stable vitals. Plan is for return trip to the operating room tomorrow for VAC sponge change. Continue antibiotics as noted above.Otherwise as noted above. Ralph Abdullahi RN - 08/16/2021 6:16 AM EDT OUTCOME EVALUATION NOTE: OUTCOME SUMMARY: Pt is A/Ox4 and VSS on RA. No complaints of nausea, SOB or numbness/tingling. Pain reported in abdomen. Pain managed with scheduled and PRN medications. Pt up to bathroom to void, adequate output. WV in abdomen to -125. NPO at 0000 for OR today. WV darline pad needing to be changed overnight by MD. Pt able to rest in between care overnight. PLAN MOVING FORWARD: Discharge planning Encourage ambulation Monitor I&O INDIVIDUALIZED FALL PREVENTION INTERVENTIONS: Patient-specific fall risk factors per assessment: [current deficits]: Tethering lines, recent surgery, narcotics, weakness, mobility aid, unfamiliar environment Assistance [level of assistance required for transfers and ambulation]: SBA w/ walker Supervision [direct monitoring required during toileting and ADLs]: SBA Surveillance [continuous indirect monitoring]: Purposeful rounding, call glover within reach Patient-specific fall prevention interventions for sensory deficits provided, if applicable: [X] No CPG GOAL OUTCOME EVALUATION: John Reyes MD - 08/15/2021 9:45 AM EDT Images from the original note were not included. Acute Care Surgery Inpatient Progress Note ID: Jahaira Montgomery is a 61 y.o. female with tobacco use, obesity, T2DM (HbA1c 7.1%), chronic knee pain, diverticulitis s/p Lucy's procedure with reversal 03/2019, incarcerated ventral hernia in /p primary repair, hospitalization in 04/2021 for recurrent incarcerated ventral hernia treated non-operatively, and most recently s/p ventral hernia repair with Ovitex on-lay mesh with 2 supra-mesh drains 07/23/[address] Watters, The left drain was pulled prior to discharge, and the right drain was pulled in clinic 08/07 at which time the shelley were also removed. She complained of pain during that clinic visit and was sent to the ED for further evaluation where CT scan showed a 9cm collection ventral to the mesh containing a fair amount of gas c/f possible abscess. However, the wound appeared to be healing well, and the air was thought to be related to the GEE that was removed that day since the eyelet was well outside the body, so she was discharged home. ?? She again presented to the ED at a later day with intense pain around her incision and purulent drainage, fever, chills and leukocytosis. She was taken to the operating room on 08/12/21 for I &D of abdominal wall abscess. 24 hour events/Subjective: - This morning, patient went to OR again for I&D and wound vac change, which she tolerated well. - She endorses adrián-incisional pain on left side this morning, otherwise no nausea, emesis, chest pain, or SOB. - Reeder catheter was removed yesterday, patient was able to void without issues. - Cultures grew coagulase negative staph yesterday, Zosyn was discontinued and Vancomycin was resumed. - Patient had some episodes of asymptomatic bradycardia yesterday, EKG showed sinus bradycardia. Hospital Course: 08/12: To OR for I&D abdominal wall hernia. 08/13: Pain well controlled. 08/14: OR for I&D abdominal wall hernia and wound vac change. O: Vitals: Afebrile, HR and BP WNL, saturating over 90% on RA General: Sitting comfortably in bed, conversant Neuro: alert and oriented, speech normal, moves all extremities spontaneously HEENT: no scleral icterus Cardio: Regular rate Pulm: breathing comfortably on RA Abd: soft, nondistended, adrián-incisional tenderness (on left side), mid wound vac in place holding suction. Extremities: WWP, no edema Labs reviewed Notable for downtrending leukocytosis normalized K Micro: Microbiology Results (Last 30 days) Procedure Component Value Units Date/Time Body Fluid Culture, Aerobic & Anaerobic Abdominal Fluid [[id number]] (Abnormal) Collected: 08/12/211948 Lab Status: Preliminary result Specimen: Abdominal Fluid Updated: 08/14/21 1059 Tissue Culture, Aerobic & Anaerobic Stomach [[id number]] (Abnormal) Collected: 08/12/211948 Lab Status: Preliminary result Specimen: Stomach Updated: 08/15/21 0949 Body Fluid Culture, Aerobic [[id number]] (Abnormal) Collected: 08/12/211948 Lab Status: Preliminary result Specimen: Abdominal Fluid Updated: 08/14/21 1059 Body Fluid Culture -- Moderate mixed Gram Positive organisms including Coagulase negative Staphylococcus species Gram Stain -- Cytocentrifuge Gram Stain performed Neutrophils seen Many Gram Positive Cocci seen Results called to and read back by Dilip orjas 08/12/21 22:08:54 WS Anaerobic Culture [[id number]] Collected: 08/12/211948 Lab Status: Preliminary result Specimen: Abdominal Fluid Updated: 08/13/21 1135 Anaerobic Culture No anaerobic organisms isolated to date Tissue culture [[id number]] (Abnormal) (Susceptibility) Collected: 08/12/211948 Lab Status: Preliminary result Specimen: Stomach Updated: 08/15/21 0949 Tissue Culture Moderate Coagulase negative Staphylococcus species Gram Stain -- Moderate Neutrophils seen Moderate Gram Positive Cocci seen Results called to and read back by maritza 08/12/21 21:42:05 WS Susceptibility Coagulase negative staphylococcus species MICROSCAN METHOD Ciprofloxacin Sensitive Clindamycin Resistant Erythromycin Resistant Gentamicin Sensitive [1] Levofloxacin Sensitive Oxacillin Resistant Tetracycline Sensitive Trimethoprim/Sulfa Sensitive Vancomycin Sensitive [1] Gentamicin is not appropriate for [place]-therapy. Linear View A/P: 61 year old female with history as above admitted for abdominal wall abscess now s/p I&D inOR and vac placement. - continue vanc - cultures with coag negative staph - to OR tomorrow for vac change, NPO at midnight NEURO: ileana tylenol for pain, dilaudid, lidocaine patches CV: Hemodynamically normal. Atorvastatin, hctz PULM: Encourage OOB/IS GI/FEN: Carb Control diet 75/75/90 CHO counting level 3 NPO diet (Give Meds) at midnight for OR tomorrow, pericolace, bisacodyl; replete electrolytes PRN RENAL: UOP adequate ENDO: SSI HEME: DVT ppx with lovenox ID: Vanc MSK: RADHA PPX: PPI, IS, SCDs LINES: PIV DISPO: Floor status, Attempt Cardiopulmonary Resuscitation - Inpatient John Reyes MD 08/15/21 Acute Care Surgery Pager: [phone] Ralph Abdullahi RN - 08/15/2021 6:55 AM EDT OUTCOME EVALUATION NOTE: OUTCOME SUMMARY: Pt is A/Ox4 and VSS on RA. No complaints of nausea, SOB or numbness/tingling. Pain reported in abdomen. Pain managed with scheduled and PRN medications. Pt up to bathroom to void, adequate output. Pt had 2 small BMs in toilet overnight. WV in abdomen to -125. Pt left this AM for OR I&D. Returned from PACU in stable condition. PLAN MOVING FORWARD: Discharge planning Encourage ambulation Monitor I&O INDIVIDUALIZED FALL PREVENTION INTERVENTIONS: Patient-specific fall risk factors per assessment: [current deficits]: Tethering lines, recent surgery, narcotics, weakness, mobility aid, unfamiliar environment Assistance [level of assistance required for transfers and ambulation]: SBA w/ walker Supervision [direct monitoring required during toileting and ADLs]: SBA Surveillance [continuous indirect monitoring]: Purposeful rounding, call glover within reach Patient-specific fall prevention interventions for sensory deficits provided, if applicable: [X] No CPG GOAL OUTCOME EVALUATION: Kenneth Shelton RN - 08/15/2021 5:59 AM EDT 0355 Pt arrived to PACU from OR on hospital bed. Pt attached to monitor, wound vac intact and set [id number], hemodynamically stable, receiving 6L O2 via SFM and opens eyes to pain. 0527 Pt ready for transfer from PACU to room. 0558 SBAR handoff report given with opportunity to ask questions, Jackson AVERY. Hina Ho RN - 08/14/2021 6:42 PM EDT . OUTCOME EVALUATION NOTE: OUTCOME SUMMARY: Pt A&Ox4, VSS on RA. Pt complaining of 4/10 at rest, 8/10 pain with movement - pain localized toleft lower abdominal area. PRN PO dilaudid given x2. Pt NPO throughout day, plan for OR tonight around 9PM for WV change and debridement. Reeder removed mid day, pt voiding adequately, passed voiding trial. WV at -125, dressing CDI. IV ABX given per orders. PLAN MOVING FORWARD: Pain management WV change/debridement Monitor I/Os INDIVIDUALIZED FALL PREVENTION INTERVENTIONS: Patient-specific fall risk factors per assessment: [current deficits]: Pain/narcotics Lines/drains Unfamiliar environment Assistance [level of assistance required for transfers and ambulation]: 1A w/FWW Supervision [direct monitoring required during toileting and ADLs]: Hands on Surveillance [continuous indirect monitoring]: Purposeful rounding Call glover within reach Maso Patient-specific fall prevention interventions for sensory deficits provided, if applicable: Lights adjusted to task Non skid socks when OOB CARE PLAN GOAL OUTCOME EVALUATION: Ongoing Loco White MD - 08/14/2021 10:55 AM EDT Acute Care Surgery Inpatient Progress Note ID: Jahaira Montgomery is a 61 y.o. female with tobacco use, obesity, T2DM (HbA1c 7.1%), chronic knee pain, diverticulitis s/p Lucy's procedure with reversal 03/2019, incarcerated ventral hernia in /p primary repair, hospitalization in 04/2021 for recurrent incarcerated ventral hernia treated non-operatively, and most recently s/p ventral hernia repair with Ovitex on-lay mesh with 2 supra- mesh drains 07/23/[address] Watters, The left drain was pulled prior to discharge, and the right drain was pulled in clinic 08/07 at which time the shelley were also removed. She complained of pain during that clinic visit and was sent to the ED for further evaluation where CT scan showed a 9cm collection ventral to the mesh containing a fair amount of gas c/f possible abscess. However, the wound appeared to be healing well, and the air was thought to be related to the GEE that was removed that day since the eyelet was well outside the body, so she was discharged home. ?? She again presented to the ED at a later day with intense pain around her incision and purulent drainage, fever, chills and leukocytosis. She was taken to the operating room on 08/12/21 for I &D of abdominal wall abscess. OR findings: - [id number] abscess of abdominal wall over mesh. - Skin and subcutaneous tissue debrided, superficial layers of ovitex mesh removed as they had dissociated from the bulk of the mesh. - Vac placed with 1 piece white and 1 piece black sponge S: Feels well this morning. No complaints. Denies fever, chills, nausea, emesis. 24 hour events: - no acute events Hospital Course: 08/12: To OR for I&D abdominal wall hernia. 08/13: Pain well controlled. O: Vitals: Afebrile, HR and BP WNL, saturating over 90% on RA General: Sitting comfortably in bed, conversant Neuro: alert and oriented, speech normal, moves all extremities spontaneously HEENT: no scleral icterus Cardio: Regular rate Pulm: breathing comfortably on RA Abd: soft, nondistended, adrián-incisional tenderness, wound vac in place holding suction. : reeder with clear yellow urine Extremities: WWP, no edema Labs reviewed Notable for downtrending leukocytosis normalized K Micro: Body Fluid Culture, Aerobic [[id number]] (Abnormal) Collected: 08/12/211948 Lab Status: Preliminary result Specimen: Abdominal Fluid Updated: 08/14/21 1059 Body Fluid Culture --??Abnormal?? Moderate mixed Gram Positive organisms including Coagulase negative Staphylococcus species ??Abnormal?? Gram Stain --??Abnormal?? Cytocentrifuge Gram Stain performed Neutrophils seen Many Gram Positive Cocci seen Results called to and read back by Dilip rojas ??08/12/21 22:08:54 WS ??Abnormal?? Anaerobic Culture [[id number]] Collected: 08/12/211948 Lab Status: Preliminary result Specimen: Abdominal Fluid Updated: 08/13/21 1135 Anaerobic Culture No anaerobic organisms isolated to date Tissue culture [[id number]] (Abnormal) Collected: 08/12/211948 Lab Status: Preliminary result Specimen: Stomach Updated: 08/14/21 1059 Tissue Culture --??Abnormal?? Moderate Coagulase negative Staphylococcus species Susceptibility testing in progress ??Abnormal?? Gram Stain --??Abnormal?? Moderate Neutrophils seen Moderate Gram Positive Cocci seen Results called to and read back by maritza ??08/12/21 21:42:05 WS ??Abnormal?? A/P: 61 year old female with history as above admitted for abdominal wall abscess now s/p I&D inOR and vac placement. - continue vanc, dc zosyn - cultures with coag negative staph - discontinue reeder - to OR today for vac change - asymptomatic bradycardia, EKG showing sinus bradycardia NEURO: ileana tyl for pain. Oxycodone, dilaudid CV: Hemodynamically normal. Atorvastatin, hctz PULM: Encourage OOB/IS GI/FEN: NPO diet (Give Meds) pericolace, bisacodyl; replete electrolytes PRN; RENAL: UOP adequate. ENDO: SSI, hA1c HEME: DVT ppx with lovenox ID: Vanc, zosyn MSK: RADHA PPX: PPI, IS, SCDs LINES: PIV, reeder DISPO: Floor status, Attempt Cardiopulmonary Resuscitation - Inpatient Rosmery Moreno MD 08/14/21 SURGICAL ATTENDING NOTE: Pt seen and examined with the resident staff on AM rounds and I agree with the above note and plan with the following additions/modifications. Cultures finalized to coag negative staph with sensitivities pending. We will continue vancomycin for now. Plan is for operating room VAC change today. Otherwise noted above. Susana Payne RN - 08/13/2021 7:42 PM EDT Alert and oriented x4. SBA, declined ambulation in the hallways. VSS. Weaned to room air. Persistent pain to left upper abdominal quadrant reported to MD, pain medicine changed, po dilaudid given withgood effect. Wound vac in place to midline incision. Reeder catheter in place, maintain per MD, low urine output reported to MD, no new orders. Sliding scale insulin started today, eating well. Bowel sounds normoactive, passing gas, no BM this shift. Rosmery Moreno MD - 08/13/2021 10:14 AM EDT Acute Care Surgery Inpatient Progress Note ID: Jahaira Montgomery is a 61 y.o. female with tobacco use, obesity, T2DM (HbA1c 7.1%), chronic knee pain, diverticulitis s/p Lucy's procedure with reversal 03/2019, incarcerated ventral hernia in /p primary repair, hospitalization in 04/2021 for recurrent incarcerated ventral hernia treated non-operatively, and most recently s/p ventral hernia repair with Ovitex on-lay mesh with 2 supra-mesh drains 07/23/[address] Watters, The left drain was pulled prior to discharge, and the right drain was pulled in clinic 08/07 at which time the shelley were also removed. She complained of pain during that clinic visit and was sent to the ED for further evaluation where CT scan showed a 9cm collection ventral to the mesh containing a fair amount of gas c/f possible abscess. However, the wound appeared to be healing well, and the air was thought to be related to the GEE that was removed that day since the eyelet was well outside the body, so she was discharged home. ?? She again presented to the ED at a later day with intense pain around her incision and purulent drainage, fever, chills and leukocytosis. She was taken to the operating room on 08/12/21 for I &D of abdominal wall abscess. OR findings: - [id number] abscess of abdominal wall over mesh. - Skin and subcutaneous tissue debrided, superficial layers of ovitex mesh removed as they had dissociated from the bulk of the mesh. - Vac placed with 1 piece white and 1 piece black sponge S: Wells well this morning. No complaints. Denies fever, chills, nausea, emesis. 24 hour events: To OR for above procedure Hospital Course: 08/12: To OR for I&D abdominal wall hernia. O: Vitals: Afebrile, HR and BP WNL, saturating over 90% on RA General: Sitting comfortably in bed, conversant Neuro: alert and oriented, speech normal, moves all extremities spontaneously HEENT: no scleral icterus Cardio: Regular rate Pulm: breathing comfortably on RA Abd: soft, nondistended, adrián-incisional tenderness, wound vac in place holding suction. : reeder with clear yellow urine Extremities: WWP, no edema Labs reviewed Notable for downtrending leukocytosis normalized K Micro: Body Fluid Culture, Aerobic [[id number]] (Abnormal) Collected: 08/12/211948 Lab Status: Preliminary result Specimen: Abdominal Fluid Updated: 08/12/212208 Gram Stain --??Abnormal?? Cytocentrifuge Gram Stain performed Neutrophils seen Many Gram Positive Cocci seen Results called to and read back by Dilip rojas ??08/12/21 22:08:54 WS ??Abnormal?? Tissue culture [[id number]] (Abnormal) Collected: 08/12/211948 Lab Status: Preliminary result Specimen: Stomach Updated: 08/12/212141 Gram Stain --??Abnormal?? Moderate Neutrophils seen Moderate Gram Positive Cocci seen Results called to and read back by maritza ??08/12/21 21:42:05 WS ??Abnormal?? A/P: 61 year old female with history as above admitted for abdominal wall abscess now s/p I&D inOR and vac placement. - continue IV abx - NPO at midnight for vac change in OR tomorrow NEURO: ileana tyl for pain. Oxycodone, dilaudid CV: Hemodynamically normal. Atorvastatin, hctz PULM: Encourage OOB/IS GI/FEN: Carb Control diet 75/75/90 CHO counting level 3 NPO diet (Give Meds) pericolace, bisacodyl; replete electrolytes PRN; RENAL: UOP adequate. ENDO: SSI, hA1c HEME: DVT ppx with lovenox ID: Vanc, zosyn MSK: RADHA PPX: PPI, IS, SCDs LINES: PIV, reeder DISPO: Floor status, Attempt Cardiopulmonary Resuscitation - Inpatient Rosmery Moreno MD 08/13/21 Kalee Rojas RN - 08/13/2021 1:24 AM EDT Report taken from Clarissa AVERY in PACU. Pt arrived to room 426 via bed around 2100. A&Ox4. VSS on 3L NC. Afebrile. Pt denies SOB, CP, N/V, N/T. Passing flatus. Pt c/o LUQ & LLQ abd pain 8/10, toosoon to give oxy & tylenol; PRN IV dilaudid given w/ good effect. Abd wound vac to -125 intact. Reeder cath in place w/ adequate UOP. Masimo attached. SCDs on. LR IVF d/c'd per MAY. Pt oriented to room & call glover. Tolerating PO intake. Bed alarm on. Nadir Prather Jr., MD - 08/13/2021 12:13 AM EDT Post-Op Check Note ID: Patient Name: Jahaira Montgomery : 1960 Jahaira Montgomery is a 61 y.o. female s/p Procedure(s): I & D ABSCESS, SIMPLE OR SINGLE, TRUNK (WRVU 1.22). S: Patient feels well overall without fever/chills, nausea/vomiting, chest pain, or shortness of breath. She was initially sleeping comfortably. Her abdominal pain is localized left adjacent to her incision. She otherwise offers no new complaints. O: Temp: [36.1 ??C (97 ??F)-36.6 ??C (97.9 ??F)] Heart Rate: [65-82] Resp: [7-13] BP: (101-141)/(55-77) SpO2: [83 %-100 %] Heart Rate from SpO2: [65 bpm-76 bpm] Physical Exam: GEN: A&O, NAD, resting comfortably CV: regular rate PULM: no increased work of breathing on RA ABD: obese, soft, tender left adjacent to midline incision, non-distended wound vac in place holding appropriate suction NEURO: grossly intact A&P: Jahaira Montgomery is a 61 y.o. female s/p I&D of midline incision with wound vac placement currently in stable condition and recovering well. - Vitals: WNL - Pain: well controlled - Volume status: appears euvolemic - Diet: Carb Control diet 75/75/90 CHO counting level 3 - DVT prophylaxis: HSQ, SCDs - Dispo: floor status - Continue post-operative plan per primary team Nadir Prather Jr, MD General Surgery PGY-1 08/13/2021 12:13 AM documented in this encounter H&P Notes Mckenna Sandoval MD - 08/17/2021 7:19 AM EDT General Surgery Interval H&P HPI: Jahaira Montgomery is a 61 y.o. ??with tobacco use, obesity, T2DM (HbA1c 7.1%), chronic knee pain, diverticulitis s/p Lucy's procedure with reversal 03/2019, incarcerated ventral hernia in 04/2020 s/pprimary repair, hospitalization in 04/2021 for recurrent incarcerated ventral hernia treated non-operatively, and most recently??s/p??ventral??hernia repair with??Ovitex on-lay??mesh??with 2 supra-mesh drains??07/23/[address] Watters, The left drain was pulled prior to discharge, and the right drain was pulled in clinic 08/07 at which time the shelley were also removed. She complained of pain during that clinic visit and was sent to the ED for further evaluation where CT scan showed a 9cm collection ventral to the mesh containing a fair amount of gas c/f possible abscess. However, the wound appeared to be healing well, and the air was thought to be related to the GEE that was removed that day since the eyelet was well outside the body, so she was discharged home. ?? She again presented to the ED at a later day with intense pain around her incision and purulent drainage, fever, chills and leukocytosis. She was taken to the operating room on 08/12/21 for I &D of abdominal wall abscess. She has been undergoing serial wound vac changes in the OR for her abdominal wall abscess. She reports pain at the site of her wound vac that is unchanged but otherwise feels well. Denies fevers, chills, SOB, chest pain. O: Patient Vitals for the past 24 hrs: Temp Heart Rate From SP02 Resp BP SpO2 O2 Device 08/16/21 0735 36.4 ??C (97.5 ??F) 63 bpm 18 137/86 94 % RA 08/16/21 1220 36.8 ??C (98.2 ??F) 62 bpm 17 153/82 94 % RA 08/16/21 1634 36.8 ??C (98.2 ??F) -- -- -- -- -- 08/16/21 1635 36.8 ??C (98.2 ??F) 57 bpm 18 145/78 93 % RA 08/16/21 2025 36.9 ??C (98.4 ??F) 60 bpm 16 144/77 94 % RA 08/16/21 2309 36.7 ??C (98.1 ??F) 65 bpm 18 146/76 95 % RA 08/17/21 0413 36.4 ??C (97.5 ??F) 68 bpm 18 154/76 95 % RA Physical Exam: General: NAD, resting comfortably, pleasant, conversant HEENT: NCAT, EOMI CVS: Regular rate Pulm: nonlabored breathing on room air Abd: soft, nontender, nondistended, wound vac in place over abdomen with minimal output Skin: warm, dry Ext: no cyanosis, cap refill <2sec Neuro: grossly intact, nonfocal, moving all four extremities spontaneously No results for input(s): WBC, HGB, HCT, PLATELET, PT, INR, PTT in the last 72 hours. Recent Labs 08/15/21 0540 NA 137 K 3.5 CL 101 CO2 28 BUN 17 CREATININE 0.44* GLUCOSE 106 CALCIUM 8.6 MAGNESIUM 0.81 PHOS 3.0 ASSESSMENT/PLAN: Jahaira Montgomery is a 61 y.o. admitted for abdominal wall abscess now s/p I&D in ORand vac placement, now undergoing serial wound vac changes. A serial consent was signed, all questions were answered, and the patient would like to proceed as planned. Mckenna Sandoval MD PGY-2, General Surgery Mckenna Sandoval MD - 08/16/2021 8:47 AM EDT General Surgery Interval H&P HPI: Jahaira Montgomery is a 61 y.o. ??with tobacco use, obesity, T2DM (HbA1c 7.1%), chronic knee pain, diverticulitis s/p Lucy's procedure with reversal 03/2019, incarcerated ventral hernia in 04/2020 s/pprimary repair, hospitalization in 04/2021 for recurrent incarcerated ventral hernia treated non-operatively, and most recently??s/p??ventral??hernia repair with??Ovitex on-lay??mesh??with 2 supra-mesh drains??07/23/[address] Watters, The left drain was pulled prior to discharge, and the right drain was pulled in clinic 08/07 at which time the shelley were also removed. She complained of pain during that clinic visit and was sent to the ED for further evaluation where CT scan showed a 9cm collection ventral to the mesh containing a fair amount of gas c/f possible abscess. However, the wound appeared to be healing well, and the air was thought to be related to the GEE that was removed that day since the eyelet was well outside the body, so she was discharged home. ?? She again presented to the ED at a later day with intense pain around her incision and purulent drainage, fever, chills and leukocytosis. She was taken to the operating room on 08/12/21 for I &D of abdominal wall abscess. She has been undergoing serial wound vac changes in the OR for her abdominal wall abscess. She reports pain at the site of her wound vac but otherwise feels well. Denies fevers, chills, SOB, chest pain. O: Patient Vitals for the past 24 hrs: Temp Heart Rate From SP02 Pulse Resp BP SpO2 O2 Device 08/15/21 1242 36.8 ??C (98.2 ??F) 60 bpm -- 16 144/74 94 % -- 08/15/21 1243 -- 55 bpm -- -- -- 94 % -- 08/15/21 1426 -- 54 bpm -- -- 129/80 92 % -- 08/15/21 1655 37 ??C (98.6 ??F) 64 bpm -- 18 159/85 96 % -- 08/15/21 1921 36.6 ??C (97.9 ??F) 58 bpm 62 18 156/86 96 % RA 08/16/21 0026 36.6 ??C (97.9 ??F) 64 bpm 59 16 159/84 94 % RA 08/16/21 0428 36.6 ??C (97.9 ??F) 56 bpm 64 16 167/82 96 % RA 08/16/21 0735 36.4 ??C (97.5 ??F) 63 bpm -- 18 137/86 94 % RA Physical Exam: General: NAD, resting comfortably, pleasant, conversant HEENT: NCAT, EOMI CVS: Regular rate Pulm: nonlabored breathing on room air Abd: soft, nontender, nondistended, wound vac in place over abdomen with minimal output Skin: warm, dry Ext: no cyanosis, cap refill <2sec Neuro: grossly intact, nonfocal, moving all four extremities spontaneously No results for input(s): WBC, HGB, HCT, PLATELET, PT, INR, PTT in the last 72 hours. Recent Labs 08/15/21 0540 08/14/21 0347 NA 137 139 K 3.5 3.1* CL 101 102 CO2 28 Not Perf BUN 17 25* CREATININE 0.44* 0.66* GLUCOSE 106 155 CALCIUM 8.6 8.6 MAGNESIUM 0.81 0.79 PHOS 3.0 2.6 ASSESSMENT/PLAN: Jahaira Montgomery is a 61 y.o. admitted for abdominal wall abscess now s/p I&D in ORand vac placement. A serial consent was signed, all questions were answered, and the patient would like to proceed as planned. Mckenna Sandoval MD PGY-2, General Surgery Joshua Che MD - 08/12/2021 2:34 PM EDT Images from the original note were not included. General Surgery Admission History and Physical Note Reason for consult: post-op wound infection Consulting team: Emergency Department HPI: Jahaira Montgomery is a 61 y.o. female with tobacco use, obesity, T2DM (HbA1c 7.1%), chronic knee pain, diverticulitis s/p Lucy's procedure with reversal 03/2019, incarcerated ventral hernia in 04/2020 s/pprimary repair, hospitalization in 04/2021 for recurrent incarcerated ventral hernia treated conservatively, and most recently s/p ventral hernia repair with Ovitex on-lay mesh with 2 supra- mesh drains 07/23/[address] Watters, The left drain was pulled prior to discharge, and the right drain was pulledin clinic 08/07 at which time the shelley were also removed. She complained of pain during that clinic visit and was sent to the ED for further evaluation where CT scan showed a 9cm collection ventral to the mesh containing a fair amount of gas c/f possible abscess. However, the wound appeared to be healing well, and the air was thought to be related to the GEE that was removed that day since the eyelet was well outside the body, so she was discharged home. She again presented to the ED today with intense pain around her incision and purulent drainage. Thepain awoke her from sleep early this morning, and nothing she has done (ice, tylenol) has relieved her pain even a little. She noticed new erythema at the wound edges and some purulent drainage, so shepresented to the ED where workup notable for tachycardia, a white count of 16.6, and CT showing enlarged gas-containing collection ventral to the mesh. She endorses fever/chills but denies obstructive symptoms. PMH: Past Medical History: Diagnosis Date ??? Chronic pain Chronic bilat knee (ACL) pain ??? Claudication left leg no acl right leg torn acl ??? Diverticulitis ??? Syncope fainted 10 years ago from heat PSH: Past Surgical History: Procedure Laterality Date ??? COLON SURGERY 03/19/2019 Open Lucy's ??? HERNIA REPAIR open umbilical x2 ??? HYSTERECTOMY ??? PRO CLOSE ENTEROSTOMY, RESEC+COLOREC ANAS N/A 09/14/2019 @CLOSE ENTEROSTOMY, LG,SM INTESTINE, W\RESECT COLORECTAL ANAST. (WRVU 27.9) performed by Miryam Wiley MD at [facility] OR ??? PRO COLONOSCOPY, DIAGNOSTIC N/A 08/18/2019 COLONOSCOPY, DIAGNOSTIC performed by Emigdio Lanier MD at [facility] ENDOSCOPY ??? PRO CYSTOSCOPY, INSERT URETERAL STENT Right 09/14/2019 CYSTO, STENT PLACEMENT INTRAOP, TEMPORARY (WRVU 2.82) performed by Werner Fournier MD at [facility] OR ??? PRO EXPLORATORY OF ABDOMEN N/A 04/25/2020 @EXPLORATORY LAPAROTOMY, WITH/WITHOUT BIOPSY(S) (WRVU 12.54) performed by Liberty Swann MD at [facility] OR ??? PRO IMPLANT MESH HERNIA REPAIR/DEBRIDEMENT CLOSURE N/A 2021 IMPLANT MESH FOR INCISIONAL OR VENTRAL HERNIA REPAIR (WRVU 4.88) performed by Negro Watters MD at [facility] OR ??? PRO MOBILIZE SPLENIC FLEX N/A 09/14/2019 @MOBILIZATION OF SPLENIC FLEXURE (WRVU 2.23) performed by Miryam Wiley MD at [facility] OR ??? PRO OMENTAL FLAP, INTRA-ABDOMINAL 09/14/2019 @OMENTAL FLAP, INTRA-ABDOMINAL (WRVU 6.54) performed by Miryam Wiley MD at [facility] OR ??? PRO REPAIR RECURR INCIS HERNIA, DEONTE N/A 04/25/2020 HERNIA REPAIR, VENTRAL OR INCISIONAL, RECURRENT, INCARCERATED (WRVU 15.53) performed by Liberty Swann MD at [facility] OR ??? PRO REPAIR RECURR INCIS HERNIA, DEONTE Left 04/25/2021 HERNIA REPAIR, VENTRAL OR INCISIONAL, RECURRENT, INCARCERATED (WRVU 15.53) performed by Loco White MD at [facility] OR ??? PRO REPAIR RECURR INCIS HERNIA, DEONTE N/A 2021 HERNIA REPAIR, VENTRAL OR INCISIONAL, RECURRENT, INCARCERATED (WRVU 15.53) performed by Negro Watters MD at [facility] MAIN OR ??? PRO SIGMOIDOSCOPY, DIAGNOSTIC N/A 09/14/2019 SIGMOIDOSCOPY, FLEXIBLE W/WO SPECIMEN BY BRUSHING OR WASHING (WRVU 0.84) performed by Miryam Wiley MD at [facility] MAIN OR ??? TUBAL LIGATION MEDICATIONS: Medication Sig ??? potassium chloride ER (K-Dur/Klor-Con) 20 mEq Tab Sust.Rel. Particle/Crystal Take 1 tablet by mouth 2 times daily. ??? atorvastatin (Lipitor) 20 mg Tablet Take 20 mg by mouth every evening. ??? hydroCHLOROthiazide (Hydrodiuril) 25 mg Tablet Take 25 mg by mouth daily. ??? Eszopiclone (LUNESTA) 1 mg Tablet Take 1 mg by mouth nightly. ??? senna (Senokot) 8.6 mg Tablet Take 1 tablet by mouth daily. ??? ALBUTEROL INHL Inhale into the lungs as needed. ??? senna-docusate (Pericolace) 8.6-50 mg Tablet Take 2 tablets by mouth 2 times daily as needed forConstipation. ??? polyethylene glycoL (Miralax) 17 gram/dose Powder Take 17 g by mouth daily as needed for up to 30 doses. (Patient not taking: Reported on 07/22/2021) ??? nicotine (NICODERM CQ) 14 mg/24 hr Patch 24 hr Change 1 patch on the skin Q10 Weeks. (Patient not taking: No sig reported) ??? nicotine polacrilex (NICORETTE) 2 mg Gum Take 1 each by mouth as needed for Smoking cessation. (Patient not taking: No sig reported) ??? acetaminophen (Tylenol Extra Strength) 500 mg Tablet Take 1 tablet by mouth every 6 hours as needed for Pain. ??? ibuprofen (Advil;Motrin) 600 mg Tablet Take 1 tablet by mouth every 6 hours as needed for Pain. ALLERGIES: No Known Allergies FAMILY HISTORY: Family History Problem Relation Age of Onset ??? Cancer Father pancreas SOCIAL HISTORY: Socioeconomic History ??? Marital status: Single Occupational History Tobacco Use ??? Smoking status: Current Every Day Smoker Packs/day: 0.50 Years: 40.00 Pack years: 20.00 Types: Cigarettes ??? Smokeless tobacco: Never Used Vaping Use ??? Vaping Use: Never used Substance and Sexual Activity ??? Alcohol use: Never Comment: almost 20 years ??? Drug use: Never PHYSICAL EXAM: Afebrile General: mild distress, moaning in ED stretcher, grimaces intermittently during conversation CV: HR 110s regular, hypertensive SBP 180s Pulm: breathing comfortably on RA Abd/GI: obese, not distended, soft, tender to palpation near incision, steri strips saturated, skin edges with 1-3cm erythema and seropurulent drainage from middle 3rd of wound Extr: warm, dry, no notable edema Neuro: alert, oriented, no focal deficits LABS: Recent Labs 08/12/21 1410 08/07/21 1446 WBC 16.6* 13.6* HGB 13.4 13.8 HCT 40.7 41.2 PLATELET 480* 368* NEUTROABS 11.06* 7.89* Recent Labs 08/07/21 1446 NA 139 K 2.8* CL 97* CO2 30 BUN 16 CREATININE 0.70 Recent Labs 08/07/21 1446 CALCIUM 10.1 Recent Labs 08/07/21 1446 GLUCOSE 120 Recent Labs 08/07/21 1446 AST 14 ALT 16 ALKPHOS 118* BILITOT 0.3 IMAGING: CT A/P 08/12/21: * Interval increase in size of midline gas containing soft tissue abscess superficial to the prior mesh repair, now measuring up to 15 cm in craniocaudal dimension. * No evidence of hernia recurrence or intraperitoneal abscess extension. CT A/P 08/07/21: 1. Ventral hernia repair with mesh. No recurrent hernia. 2. Mostly gas containing collection ventral to the mesh 9 cm in craniocaudal dimension. This is moregas than expected 2 weeks post op. Suspicious linear tract to the right periumbilical skin surface. Suspected abscess. ASSESSMENT and RECOMMENDATIONS: Jahaira Montgomery is a 61 y.o. female with wound infection and superficial s/p ventral hernia repair withmesh. Will admit for IV antibiotics and operative debridement. - Admit to Floor - Consented and booked for I&D in OR, likely VAC placement - IV Zosyn q8h - NPO, okay for regular diet post-op - IVF bolus and K replacement in ED - Pain control with scheduled tylenol, PRN oxycodone, IV dilaudid for breakthrough - DVT ppx: SQH q8h - Code status: FULL Evaluated and discussed with attending surgeon Dr. Che and communicated to ED team. Mavis Tamayo MD 08/12/2021 General Surgery consult pager #[phone] I saw and evaluated the patient with Dr. Tamayo (resident). I have independently reviewed the relevant laboratory and radiographic studies. I have edited the above note and agree with the details as written. My physical examination confirms the resident's findings. The assessment and plan were formulated in discussion with me at the time of the visit and I agree with them as documented. The patient is a 61yo woman with an abdominal wall/wound infection following a ventral hernia repairwith Ovitex mesh earlier this month. NPO for OR, proceeding with I&D of abdominal wall, potential wound vac placement. Joshua Che MD documented in this encounter Nursing Notes Clarissa Velázquez RN - 08/12/2021 7:33 PM EDT 1924: Pt. Arrived from OR to PA22. Monitors on, alarms active and audible. 2049: Report to GENA Granda documented in this encounter ED Notes Violeta Kumar RN - 08/12/2021 6:00 PM EDT 1800: Report callled to floor, OR called about pt being seen soon. Will wait to send patient to floor after OR. Viviana Camacho MD - 08/12/2021 2:37 PM EDT Images from the original note were not included. ED Attending Note HPI: Jahaira Montgomery is a 61 y.o. female who presents to the Emergency Department with pain and purulent drainage from surgical incision. Patient had a hernia repair with mesh on 07/23, seen on 08/07 for pain around her incision site and was ultimately discharged home. This morning she was awoken from sleep in the early hours by intense pain in her abdomen and redness around her incision. She had been previously managing her pain with ibuprofen and Tylenol, has had no relief from this today. Denies any fevers. On the way to the hospital began having purulent drainage from her incision as well. Review of Systems Constitutional: Negative for activity change, appetite change, chills, fatigue and fever. HENT: Negative for trouble swallowing and voice change. Eyes: Negative for visual disturbance. Respiratory: Negative for cough and shortness of breath. Cardiovascular: Negative for chest pain. Gastrointestinal: Positive for abdominal pain. Negative for nausea and vomiting. Genitourinary: Negative for difficulty urinating. Skin: Positive for color change and wound. Neurological: Negative for headaches. All other systems reviewed and are negative. Pertinent positives and negatives are included in the HPI, otherwise at least ten systems were reviewed and negative. Past Medical and Surgical Histories, Social History, Medications, Allergies were reviewed in the chart. Vitals: ED Triage Vitals [08/12/21 1339] BP: 180/88 Heart Rate: (!) 110 Resp: 20 Temp: 37.4 ??C (99.3 ??F) Temp src: Oral SpO2: 96 % O2 Device: RA O2 Flow Rate (L/min): n/a Physical Exam Constitutional: General: She is in acute distress. Comments: Distress, moaning in pain HENT: Head: Normocephalic and atraumatic. Nose: Nose normal. Mouth/Throat: Mouth: Mucous membranes are moist. Eyes: Extraocular Movements: Extraocular movements intact. Pupils: Pupils are equal, round, and reactive to light. Cardiovascular: Rate and Rhythm: Normal rate. Pulmonary: Effort: Pulmonary effort is normal. No respiratory distress. Abdominal: Tenderness: There is abdominal tenderness. Comments: Erythema and purulent drainage from ventral incision, see photo below Musculoskeletal: Cervical back: Normal range of motion. Neurological: General: No focal deficit present. Mental Status: She is alert. Psychiatric: Mood and Affect: Mood normal. ED Course: I have reviewed labs and imaging, images and available reports, and they are significant for: Labs Reviewed HEMOGRAM - Abnormal; Notable for the following components: Result Value WBC 16.6 (*) Platelets 480 (*) All other components within normal limits DIFFERENTIAL, AUTOMATED - Abnormal; Notable for the following components: Neutr Abs (ANC) 11.06 (*) Monocyte Abs 1.3 (*) Eosinophils Abs 0.9 (*) Basophils Abs 0.2 (*) Shantell Gran Abs 0.06 (*) All other components within normal limits CBC (WITH DIFF) REQUEST FOR BLOOD GAS DRAW ([facility]) BASIC METABOLIC PANEL (NON-FASTING) BLOOD GAS [address] Abdomen & Pelvis wo Contrast (Results Pending) Procedures Assessment and Plan: 61 y.o. female with pain, erythema and purulence draining from hernia repair incision site. Patient is tachycardic but afebrile. Pain controlled with IV Dilaudid, patient started on Zosyn. Found to be hypokalemic to 2.6, potassium repletion ordered as well. Patient will be evaluated by the surgery team for surgical site infection. CT scan has been ordered as well. Anticipate admission for further management. Did this case involve critical care? No The visit findings, diagnosis, and care plan were discussed with the patient. Viviana Camacho MD 08/12/21 1451 Tu Banegas APRN - 08/12/2021 1:44 PM EDT Patient Name: Jahaira Montgomery Patient Age/: 61 y.o./1960 Encounter Date: 08/12/2021 Brief Provider Triage Note 61 y.o. female presents to the emergency department with abdominal pain and large volumes of reported drainage. S/p hernia repair with mesh on 07/23. Complicated history and surgical history seen here on 08/07. Brief focused physical exam notable for alert female who appears uncomfortable. Drainage leaking through clothes and onto floor. BP 180/88 Pulse (!) 110 Temp 37.4 ??C (99.3 ??F) (Oral) Resp 20 Ht 149.9 cm (4' 11) Wt 104.3 kg (230 lb) SpO2 96% BMI 46.45 kg/m?? Plan: labs, CT Brought to ED room 11 Patient requires further evaluation, diagnosis and management in the emergency department. PPE worn during this encounter: Level 2 mask and Eyeglasses Tu Banegas APRN 08/12/21 1346 documented in this encounter Miscellaneous Notes Plan of Care - Evelia Durham RN - 08/22/2021 12:09 PM EDT Patient A/Ox4, VSS on room air. Pain well controlled. Noted patient with frequent dry cough, afebrile. MD notified. Voiding adequately in the toilet. Loose BMx1. Scheduled stool softener refused. Incision site CDI. Abdominal binder remained in place. GEE drain to bulb with minimal SS output. Discharge o rder received and patient informed. PIV removed and pressure dressing applied. Discharge summary/education given to patient and verbalized understanding. All issue/concern addressed. Patient left unit via wheelchair accompanied by the AIRCRAFT MAINTENANCE INSTRUCTOR, along with personal belongings. Care Management Discharge - Porsha Santos RN - 08/22/2021 10:43 AM EDT CARE MANAGEMENT FINAL DISCHARGE NOTE Chart reviewed, care reviewed with primary team and at interdisciplinary rounds. Patient is medically ready for discharge today. Needs for Transition of Care: Plan for discharge is: Home w/ Services Outpatient Agency/Support Group Needs: Homecare agency Home Health Services: Wound care, Registered Nurse Agency Referrals & Follow-up Care: [facility] [address] [place] [address] Transportation: family or friend will provide Functional status prior to admission: Independent Home Environment: Others in the home: sibling(s). Current Living Arrangements: home/apartment/condo. Accessibility Concerns:ramp to enter home and lives on one level. 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 DME used at home: none DME Needed at Discharge: none anticipated Patient is insured through: Primary Insurance: [place] Payor[place] / Plan: [place] / Product Type: *No Product type* / Secondary Insurance: N/A Prescription Coverage: Yes This plan was formulated with input from patient and team. All are in agreement with plan. Merle Santos RN (Jonas) RN/CM - Cellphone: [phone] Pager: [phone] Covering Service RN/CM Plan of Care - Evelia Durham RN - 08/21/2021 7:16 PM EDT OUTCOME EVALUATION NOTE: OUTCOME SUMMARY: Patient Jahaira had a good day, up to toilet with walker. VSS on room air. Tolerated oral intake well. Pain well controled. GEE drain to bulb. Patient will go home with GEE drain. GEE drain care initiated, however patient refused GEE drain care. Patient stated that her xlaslc-ir-wvw will do it when she gets home. Vajldq-fy-hyv has done it before. 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 Active bowel sounds, loose/creamy stool. Refused Miralax. Voiding in the toilet with adequate urine output. Worked with OT. All issue/concern addressed. Continue to monitor. PLAN MOVING FORWARD: Monitor I/O, V/S, fingerstick Q4H OOB ambulating D/C planning home INDIVIDUALIZED FALL PREVENTION INTERVENTIONS: Patient-specific fall risk factors per assessment: [current deficits]: Unfamiliar environment, drain Assistance [level of assistance required for transfers and ambulation]: SBA, with walker Supervision [direct monitoring required during toileting and ADLs]: Arm reach Surveillance [continuous indirect monitoring]: Purposeful hourly rounding, call light within reach,safety precaution maintained. Patient-specific fall prevention interventions for sensory deficits provided, if applicable: [X] Yes CARE PLAN GOAL OUTCOME EVALUATION: Ongoing Plan of Care - Kandi Grubbs RN - 08/19/2021 6:13 PM EDT Outcome Evaluation Note: Outcome Summary: Pt A&Ox4, VSS on RA, afebrile. Pt reporting moderate pain with PRN Dilaudid and scheduled meds. Midline abdomen WV to -125 suction, CDI. AUOP via bathroom, no BM this shift. Pt NPO for OR debridement / closure. [facility] 1535 - Pt down to OR. Plan Moving Forward: DC planning. Individualized Fall Prevention Interventions: Patient-specific fall risk factors per assessment: [current deficits]: Narcotics, tethering lines / drains. Assistance [level of assistance required for transfers and ambulation]: SBA with FWW. Supervision [direct monitoring required during toileting and ADLs]: Hands on. Surveillance [continuous indirect monitoring]: Masimo, call glover within reach, purposeful hourly rounding, bed alarm. Patient-specific fall prevention interventions for sensory deficits provided, if applicable: Yes, non-skid socks when OOB. CPG Goal Outcome Evaluation: Ongoing. Op Note - Liberty Swann MD - 08/19/2021 5:19 PM EDT [facility] [place] Patient Name: Jahaira Montgomery : [id number] MR#: [id number] Case Date: 08/19/2021 Surgeon: Surgeon(s) and Role: * Liberty Swann MD - Primary * Lisandro Treviño MD - Resident Preoperative diagnosis: Abdominal wall wound Postoperative diagnosis: Abdominal wall wound Procedure(s) (LRB): SECONDARY CLOSURE SURGICAL WOUND OR DEHISCENCE, EXTENSIVE OR COMPLICATED, TRUNK (WRVU 12.04) (Midline) Findings: Wound clean with beginning of granulation base, additional necrotic fat debrided on the left side ofthe wound with electrocautery back to healthy tissue, small skin flaps raised and skin closed down the midline with 2-0 Prolene over 15 Fr channel drain Anesthesia: General Estimated Blood Loss: 2 mL Specimens removed during surgery: None Drains: 15 Fr Adrian drain Surgical Closure: Primary Closure - skin incision is closed but with open spaces for wires, piotr, drains or other devices Disposition: awakened from anesthesia, extubated and taken to the recovery room in a stable condition, having suffered no apparent untoward event. Condition: doing well without problems (Please see the Surgical Encounter Summary for any Implant and Specimen details pertinent to this patient.) HPI/Surgical Indications: Jahaira Montgomery??is a 61 y.o.??female??who recently underwent abdominal ventral hernia repair with meshon 2021. ?? She represented??08/12/2021??with signs and symptoms of a wound infection with a large subcutaneous abscess confirmed on CT??which was opened, drained and debrided on admission. A VAC was placed. Plan for VAC change, debridement and possible wound closure. ? Procedure Description: The patient was brought to the operating room where a time out was performed to confirm the patient's identity and the procedure. The patient was placed in supine position on the OR bed. General anesthesia was induced and the patient was intubated. 1 piece of black sponge and 2 pieces of white sponge were removed which correlated with charted sponge number and tag on the plastic. ?? The patient was sterilely prepped and draped in usual fashion. The wound was overall clean, with healthy granulation tissue. ??20 sq cm of additional necrotic fat was sharply debrided on the left side of the wound with electrocautery back to healthy tissue. Small skin flaps raised with electrocautery.15 Fr channel drain brought into the wound through a separate stab incision and positioned in the wound bed. Skin closed down the midline for the entire 25 cm of the wound length with 2-0 Prolene vertical mattress sutures. Incision dressed with Xeroform and Primapore dressing. All counts were correct at the end of the case. The patient tolerated the procedure well, was extubated in the OR and was taken to the recovery room in good condition. Attestation: Case Date: 08/19/2021 I was present and I participated during the entire procedure (does not need to include opening and closing). LIBERTY SWANN MD 08/19/2021 Care Management - Porsha Santos RN - 08/19/2021 12:03 PM EDT OFFICE OF CARE MANAGEMENT PROGRESS NOTE LOS: Hospital Day 7 days Chart reviewed, care reviewed with primary team and at interdisciplinary rounds. Patient continues to meet inpatient level of care related to: 08/19/2021 - Rosmery Moreno MD 61 year old female with history as above admitted for abdominal wall abscess now s/p I&D in OR and vac placement. ?? - continue vanc, flagyl - cultures with coag negative staph - to OR for vac change today - IVF while NPO for relative EITAN. After OR will encourage PO hydration. IDR: 08/19/2021 - 08/19: OR Today - close wounds over drain; DC Thursday - NO VAC AT DC. [facility] updated and will communicate final information on date of discharge. Functional status prior to admission: Independent Home Environment: Others in the home: sibling(s). Current Living Arrangements: home/apartment/condo. Accessibility Concerns: ramp to enter home and lives on one level. 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 DME used at home: none DME Needed at Discharge: none anticipated Patient is insured through: Primary Insurance: [place] Pay[place] / Plan: [place] / Product Type: *No Product type* / Secondary Insurance: N/A Plan for discharge is: Home w/ Services Outpatient Agency/Support Group Needs: Homecare agency Home Health Services: Wound care, Registered Nurse Agency Referrals: Agata LOPEZ Transportation: family or friend will provide Barriers to discharge: Discharge planning Plan going forward: [facility] Care Management will continue to follow and assist with discharge planning and coordination of care as indicated. Anticipated Date of Discharge: 08/20/2021 Merle Freeman) GENA Santos RN/CM - Cellphone: [phone] Pager: [phone] Covering Service RN/CM Plan of Care - Pablo Cancino RN - 08/18/2021 5:16 PM EDT OUTCOME EVALUATION NOTE: ?? OUTCOME SUMMARY: ?? Pt A&Ox4. Vanco troph critical this AM-MD and pharmacy notified-vanco held per pharmacy instructions and MD aware. OOB 1 assist w/walker. Walked for 1 lap in the hallway today-tolerated well. Washed up and linens changed today. Pain in L.abdomen 3-7/10-tolerable per pt w/PRN dilaudid per MAY. Wound vac to -125mmhg of suction CDI. Bowel sounds audible and hypoactive-pt passing gas. Abdomen soft but tender.??Lungs dim. IS encouraged. BLE trace edema-scott coloration. Pulses palpable. Bowel sounds normoactive-passing flatus. LBM??6/2-offered suppository but pt declined. VSS. WCTM.? PLAN MOVING FORWARD: ?? Monitor pain control. Encourage movement. Encourage staying awake more during the day.??NPO at 0000 for WV change in the morning. ?? INDIVIDUALIZED FALL PREVENTION INTERVENTIONS: ?? Patient-specific fall risk factors per assessment: [current deficits]:?1??assist OOB w/walker; WVcreates tripping hazard; obese; uses a walker at baseline? Assistance [level of assistance required for transfers and ambulation]:?1??assist OOB w/walker? Supervision [direct monitoring required during toileting and ADLs]:?SBA??w/walker? Surveillance [continuous indirect monitoring]:?Masimo? Patient-specific fall prevention interventions for sensory deficits provided, if applicable:?[X] Yes??Bed alarm on; room near nurse's station? CARE PLAN GOAL OUTCOME EVALUATION:? Consult Note - Kaye Peña, [facility] - 08/18/2021 9:47 AM EDT Clinical Pharmacist Note-Vanc Jahaira Montgomery [id number] 1960 Jahaira Montgomery is a 61 y.o. female is being monitored due to antibiotic therapy which includes intravenous vancomycin. Regimen: Vancomycin 1750 mg every 12 hours Indication: treatment of GI/Intraabdominal infection Initiation Date: 08/13/21 Day of Therapy: 5 Targeted Goal Range: 10 - 15 mcg/mL Pharmacokinetic information: Wt Readings from Last 1 Encounters: 08/12/21 104.3 kg (230 lb) Ht Readings from Last 1 Encounters: 08/12/21 149.9 cm (4' 11) Labs: Vancomycin: Vanc Trough (mg/L) Date Value 08/18/2021 25.4 (CRIT) Creatinine clearance: Creatinine (mg/dL) Date Value 08/15/2021 0.44 (L) Estimated Half-Life (T1/2) = 11 hours: Recommendations: Dosing recommendations: ?? Hold the 0900 dose on 08/18/21 due to supratherapeutic level of 25.4 mg/L. ?? Based on this information a dose of 1250 mg every 12 hours, to start at 2000 (time) on 08/18/2021 should achieve an estimated trough level of 10 - 15 mcg/mL. Monitoring recommendations: ?? A new steady state level should be achieved after 4 half-lives. I suggest rechecking a vancomycintrough level (30 minutes prior to a scheduled dose) at 0730 (time) on 08/20/21. We will continue to monitor the patient as long as she remains on vancomycin therapy. Please watch SCr, BUN and fluid status closely. Please page the care area pharmacist with any questions you may have. Alternately, during off-hours you may call [phone] to contact a pharmacist. Kaye Peña [facility] Pager [phone] Plan of Care - Clarissa Hay RN - 08/18/2021 4:41 AM EDT OUTCOME EVALUATION NOTE: OUTCOME SUMMARY: Pt VSS on RA. Fingersticks within range. Pain controlled with PRN IV Dilaudid and PO Dilaudid, alongwith scheduled tylenol. @23:30 Pt c/o pain in PIV when flush, vasc access to assess, PIV ok to use. @0430, pt asked for iv dilaudid, PIV flushed, pt c/o pain. This RN told pt I have to page vasc accessto come assess, pt refused saying she didn't want to be poked, and would wait for PO pain meds. Pt educated upon reasoning for paging vasc access to assess. Wound Vac -125. AUOP via bed pain. WCM. PLAN MOVING FORWARD: Pain Control Q4 Fingersticks Discharge Planning INDIVIDUALIZED FALL PREVENTION INTERVENTIONS: Patient-specific fall risk factors per assessment: [current deficits]: Narcotics for pain, tetheringlines/drains, Assistance [level of assistance required for transfers and ambulation]: 2A FWW Supervision [direct monitoring required during toileting and ADLs]: Hands on Surveillance [continuous indirect monitoring]: Paul, purposeful rounding, call glover within reach Patient-specific fall prevention interventions for sensory deficits provided, if applicable: [X] Yes, non skids on, lighting adjusted CARE PLAN GOAL OUTCOME EVALUATION: Ongoing Plan of Care - Pablo Cancino RN - 08/17/2021 5:51 PM EDT OUTCOME EVALUATION NOTE: ?? OUTCOME SUMMARY: ?? Pt A&Ox4. OOB 1 assist w/walker. Pain prior to WV change controlled. Pt received WV change in ORand returned around 1353-c/o 10/10 pain but stated it was improving and she did not want me to page for more pain meds at that time. Pt given IV dilaudid at 1626 and PO dilaudid at 1703-sleeping between doses-WCTM. Voiding w/o difficulty in bedpan-says she does not want to get OOB until pain more controlled. Wound vac to -125mmhg of suction CDI. Bowel sounds audible and normoactive-pt passing gas. Abdomen soft but tender. Lungs dim. IS encouraged. BLE trace edema-scott coloration. Pulses palpable. Bowel sounds normoactive- passing flatus. LBM 6/2. VSS. WCTM.? PLAN MOVING FORWARD: ?? Monitor pain control. Encourage movement. Encourage staying awake more during the day.? INDIVIDUALIZED FALL PREVENTION INTERVENTIONS: ?? Patient-specific fall risk factors per assessment: [current deficits]:?1 assist OOB w/walker; NotOOB since WV change; WV creates tripping hazard; obese; uses a walker at baseline? Assistance [level of assistance required for transfers and ambulation]:?1 assist OOB w/walker? Supervision [direct monitoring required during toileting and ADLs]:? SBA w/walker? Surveillance [continuous indirect monitoring]:?Masimo? Patient-specific fall prevention interventions for sensory deficits provided, if applicable:?[X] Yes??Bed alarm on; room near nurse's station? CARE PLAN GOAL OUTCOME EVALUATION:? Op Note - Jean Claude Aly MD - 08/17/2021 12:09 PM EDT [facility] [place] Patient Name: Jahaira Montgomery : [id number] MR#: [id number] Case Date: 08/17/2021 Surgeon: Surgeon(s) and Role: * Negro Watters MD - Primary * Jean Claude Aly MD - Resident * Mckenna Sandoval MD - Resident Preoperative diagnosis: Abdominal wall wound Postoperative diagnosis: Abdominal wall wound Procedure(s) (LRB): DEBRIDEMENT SKIN AND SUBCU, FIRST 20 SQ CM, ABDOMEN (WRVU 1.01) (Midline) Findings: -22 x 14 x 4 cm wound, clean with healthy granulation tissue Anesthesia: General Estimated Blood Loss: * No values recorded between 08/17/2021 12:01 PM and 08/17/2021 12:10 PM * Specimens removed during surgery: * No orders in the log * Drains: none Surgical Closure: Primary Closure - skin incision is completely closed without any wires, piotr, drains or other devices Disposition: awakened from anesthesia, extubated and taken to the recovery room in a stable condition, having suffered no apparent untoward event. Condition: doing well without problems (Please see the Surgical Encounter Summary for any Implant and Specimen details pertinent to this patient.) HPI/Surgical Indications: Jahaira Montgomery??is a 61 y.o.??female??who recently underwent abdominal ventral hernia repair with meshon 2021. She represented 08/12/2021 with signs and symptoms of a wound infection with a large subcutaneous abscess confirmed on CT which was opened, drained and debrided on admission. A vac was placed. Plan for vac change and serial debridement. Procedure Description: The patient was brought to the operating room where a time out was performed to confirm the patient's identity and the procedure. General anesthesia was induced and the patient was intubated. The patient was placed in supine position with arms in. 1 piece of black sponge and 1 piece of white sponge was removed which correlated with charted sponge number and tag on the plastic. The patient was sterilely prepped and draped in usual fashion. The wound was overall clean, with healthy granulation tissue. 4 x 4 cm of necrotic fat was sharply debrided with Metzenbaum scissors. The wound was irrigated. The wound vac was replaced with 1 black and 2 white sponges. The patient was awoken from anesthesia and taken to recovery without issue. Dr. Watters present for all critical portions of the procedure. Jean Claude Aly MD 08/17/2021 12:14 PM Associated attestation - Negro Watters MD - 08/17/2021 12:30 PM EDT I was the attending physician supervising the resident in the above care and I was present with the resident for the onofre component(s) of the procedure and remained immediately available throughout the remainder. Negro Watters MD 08/17/2021 12:30 PM Plan of Care - Pablo Cancino, RN - 08/16/2021 6:23 PM EDT OUTCOME EVALUATION NOTE: ?? OUTCOME SUMMARY: ?? Pt A&Ox4. OOB 1 assist w/walker. Pt denied any dizziness w/ambulation today; c/o of increased pain and appears fatigued w/ a lot of movement. Pt went for two walks today; tolerated well. Pain throughout the day 2-7/10 in LUQ of abdomen-pt pain well controlled and decreases to 2/10 after doses. This RN encouraging lower doses of pain medication during the day so pt will stay awake-pt has been tolerating well and is agreeable to this plan. Voiding w/o difficulty. Wound vac to -125mmhg of suction CDI-reinforced this morning and has not leaked since. Bowel sounds audible and normoactive-pt passing gas. Abdomen soft but tender. Lungs dim w/expiratory wheezing in L. lobes of lungs-unchanged. IS encouraged. BLE trace edema-scott coloration. Pulses palpable. Bowel sounds normoactive- passing flatus. LBM /. VSS. WCTM. ?? PLAN MOVING FORWARD: ?? NPO 0000 tonight for WV change in OR tomorrow. Monitor pain control. Encourage movement. Encourage staying awake more during the day. ?? INDIVIDUALIZED FALL PREVENTION INTERVENTIONS: ?? Patient-specific fall risk factors per assessment: [current deficits]: 1 assist OOB w/walker; dizzy yesterday; WV creates tripping hazard; obese; uses a walker at baseline ?? Assistance [level of assistance required for transfers and ambulation]: 1 assist OOB w/walker ?? Supervision [direct monitoring required during toileting and ADLs]: SBA w/walker ?? Surveillance [continuous indirect monitoring]: Masimo ?? Patient-specific fall prevention interventions for sensory deficits provided, if applicable: [X] YesBed alarm on; chair alarm on; room near nurse's station ? CARE PLAN GOAL OUTCOME EVALUATION: ?? Care Management - Aria Shultz RN - 08/16/2021 1:17 PM EDT OFFICE OF CARE MANAGEMENT PROGRESS NOTE LOS: Hospital Day 4 days Chart reviewed, care reviewed with primary team and at interdisciplinary rounds. Patient continues to meet inpatient level of care related to: Patient requiring OR for wound vac changes. Wound vac order has been approved for when patient is discharged.. Functional status prior to admission: Independent Home Environment: Others in the home: sibling(s). Current Living Arrangements: home/apartment/condo. Accessibility Concerns: ramp to enter home and lives on one level. 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 DME used at home: none Patient is insured through: Primary Insurance: [place] Pay[place] / Plan: [place] / Product Type: *No Product type* / Secondary Insurance: N/A Plan for discharge is: Home w/ Services Outpatient Agency/Support Group Needs: Homecare agency Home Health Services: Wound care, Registered Nurse Agency Referrals: [facility] for RN, OT and [facility] for wound vac. Wound vac approved. Transportation: family or friend will provide Barriers to discharge: None Plan going forward: Care Management will continue to follow and assist with discharge planning and coordination of care as indicated. Anticipated Date of Discharge: 08/21/2021 Aria Shultz RN, BSN Case Management Consult Note - Viviana Topete MD - 08/16/2021 1:09 PM EDT Infectious Disease Reason for consult: complex intraabdominal infection Requesting: Loco Luque MD (General Surgery) History of Present Illness: This is a 61 y/o female with a complicated abdominal surgical history including Lucy's procedure for diverticulitis s/p reversal and recurrent incarcerated ventral hernia that was eventually repaired with mesh who presents with a complex intraabdominal infection involving mesh. Jahaira initially underwent Lucy's procedure for complicated diverticulitis in March 2019, followed by Lucy's reversal and primary ventral hernia repair in September 2019. In April 2020, she presented with SBO in setting of incarcerated ventral hernia for which she underwent exploratory laparotomy with repair of the incarcerated hernia without mesh on 04/25/20. She did well until April 2021, when she presented again with recurrent incarcerated ventral hernia that was unable to be reduced at bedside. She went to the OR on 04/25/21, where she was found to have a superior hernia defect containing non-obstructed transverse colon and an inferior defect with incarcerated loop of small bowel. Thiswas reduced and all bowel appeared viable. Hernia was ultimately repaired primarily without mesh. InMay 2021, she presented again with abdominal pain. She went to the OR on 07/23/21, where she was found to have multiple ventral hernia defects without any incarcerated or threatened bowel and subsequentunder repair with mesh. Cultures sent intra-op were negative. She was discharged on 07/25/21 with only a right sided drain. Jahaira reports that she initially did well, but then developed progressive left sided abdominal pain.She presented for General Surgery follow-up visit on 08/07/21, where her shelley and right sided drain was removed. She was then referred to the ER since she was in a lot of pain. Labs showed WBC 13.6. CT A/P showed a gas containing collection ventral to the mesh that was 9cm in craniocaudal dimension (more gas than expected for post-op changes) with suspicious linear tract to the right periumbilical skin surface. General Surgery attributed the gas to recent drain removal and did not think the patient's presentation was consistent with an infection. She was discharged home. She reports that the pain escalated over the next couple of days, prompting her to re-present to theED. On the way to the hospital, she noticed that her incision had purulent drainage. On arrival, shewas afebrile with stable vitals. Labs showed WBC 16.6. Repeat CT A/P showed interval increase in size of midline gas-containing soft tissue abscess superior to prior mesh repair, now measuring up to 15cm in craniocaudal dimension, without evidence of hernia recurrence or retroperitoneal abscess extension. She was taken to the OR on 08/12/21 with below findings per operative note: Findings: - [id number] abscess of abdominal wall over mesh. - Skin and subcutaneous tissue debrided, superficial layers of ovitex mesh removed as they had dissociated from the bulk of the mesh. - Vac placed with 1 piece white and 1 piece black sponge Wound cultures sent of the purulent drainage are growing moderate mixed gram positive organisms including CoNS (R-oxacillin; gram stain: moderate neutrophils, GPC) and moderate Finegoldia magna. She was started on vancomycin. She returned to the OR on 08/14/21 with below findings: Findings: Small amount of mesh debrided from the edge of the fascia. Ischemic fat sharply removed with scissors. One white sponge and one black sponge placed.??[id number] wound.?? At bedside interview, Jahaira reports that she is hanging in there. Still has LLQ abdominal pain. She has been tolerating her antibiotics. No nausea, vomiting, or diarrhea. No new rashes. 10-point ROS: negative other than that stated in HPI. Other Medical and Surgical History: - DM - HLD - Tongue tumor s/p partial glossectomy - Anal fissures - - Hysterectomy - CCY Medications: reviewed Allergies/SE to antibiotics: none Family History: negative for recurrent infections or immunocompromised conditions Social History: She lives with brother and [id number] in [facility]. They own several cats and dogs. She is a chronic tobacco smoker. No alcohol or recreational drug use. Objective: BP 153/82 (BP Location (NBP): Right arm, Patient Position: Lying) Pulse 64 Temp 36.8 ??C (98.2 ??F) (Oral) Resp 17 Ht 149.9 cm (4' 11) Wt 104.3 kg (230 lb) SpO2 94% BMI 46.45 kg/m?? General: pleasant obese female in no acute distress HEENT: oropharynx without exudates or erythema, neck supple CV: regular rate and rhythm, no obvious murmurs Resp: clear to auscultation bilaterally; no wheezing, crackles, or rhonchi Abd: rotund, midline incision with wound vac, tender to palpation to light touch on left side Skin: no visible rashes, chronic skin discoloration on lower extremities Neuro: alert and oriented, able to follow commands, moves extremities spontaneously Pertinent labs, microbiology, imaging and procedures were reviewed. Impression: In brief, this is a 61 y/o female with a complicated abdominal history including Lucy's procedure for diverticulitis that was reversed in September 2019 and recurrent incarcerated ventral hernia that was ultimately repaired with mesh in July 2021 who presented with worsening left sided abdominal pain and purulent drainage from her incision. Imaging showed an enlarging gas-containing collection suspicious for an abscess that was ventral to the mesh with possible communication to the periumbilical skin surface. She was taken to the OR for serial debridements and incremental excision of the infected mesh. We were consulted for antimicrobial guidance in treatment of this complex intraabdominal infection. Infection seems to be localized to ventral to the mesh without any intraperitoneal extension based on radiographic and intraoperative findings. Nevertheless source control with eradication of infectionwill be difficult any time a foreign body (in this case, her mesh) is involved. General Surgery is pl anning to take her back to the OR tomorrow for further debridement. In the meantime, we suggest the addition of metronidazole to cover the Finegoldia magna isolate. CoNS (R-oxacillin) is well-covered with vancomycin. Further recommendations to follow pending her clinical course and culture data. Recommendations: 1. Continue vancomycin per pharmacy, trough goal 10-15 2. Start metronidazole 500mg PO q8h 3. Follow-up cultures 4. Check a set of CRP with am labs to help us monitor disease progression Following. Please call with questions. Discussed with attending, Dr. Efrem Bhatt, DO ID Fellow Red Team Pager: [phone] Infectious Diseases Attending I saw the patient with the infectious diseases fellow. I have made some modifications and agree withthe presentation of data and the assessment and plan as outlined above. The patient appears to understand the plan and also the challenges we face with sterilizing necessary mesh. Viviana Topete MD Professor, Department of Medicine Page [phone] minutes of this 55 minute visit were spent on the floor/unit in counseling or coordination of care with the patient, regarding treatment of infection as detailed in note above. Consult Note - Alberto Murrieta [facility] - 08/16/2021 7:06 AM EDT Clinical Pharmacist Note-Vanc Jahaira Montgomery [id number] Jahaira Montgomery is a 61 y.o. female is being monitored due to antibiotic therapy which includes intravenous vancomycin. Regimen: Vancomycin 1000 mg every 8 hours Indication: treatment of GI/intraabdomial infection Initiation Date:08/13/21 Day of Therapy:3 Targeted Goal Range: 10 - 15 mcg/mL Pharmacokinetic information: Wt Readings from Last 1 Encounters: 08/12/21 104.3 kg (230 lb) Ht Readings from Last 1 Encounters: 08/12/21 149.9 cm (4' 11) Labs: Vancomycin: Vanc Trough (mg/L) Date Value 08/16/2021 20.1 (CRIT) Creatinine clearance: Creatinine (mg/dL) Date Value 08/15/2021 0.44 (L) Estimated Half-Life (T1/2) = 8 hours: Estimated Volume of distribution (Vd) = 73 Liters Recommendations: Dosing recommendations: ?? Based on this information a dose of 1750 mg every 12 hours, to start at 09:00 (time) on 08/16/21 (today) should achieve an estimated trough level of 10 - 15 mcg/mL. Monitoring recommendations: ?? A new steady state level should be achieved after 4 half-lives. I suggest rechecking a vancomycintrough level (30 minutes prior to a scheduled dose) if significant changes in renal function. ?? Consider trough prior to 4th or 5th dose to confirm trough attainment. We will continue to monitor the patient as long as she remains on vancomycin therapy. Please watch SCr, BUN and fluid status closely. Please page the care area pharmacist with any questions you may have. Alternately, during off-hours you may call [phone] to contact a pharmacist. ALBERTO MURRIETA [facility] Pager [phone] Plan of Care - Pablo Cancino RN - 08/15/2021 7:01 PM EDT OUTCOME EVALUATION NOTE: OUTCOME SUMMARY: Pt A&Ox4. OOB 1-2 assist w/walker. Pt OOB to nurse's station around 1430. Pt felt dizzy/ like the room was spinning and assisted to wheelchair. Pt BP in wheelchair 129/80 and assisted back to bed. Pt dizziness resolved. Pain throughout the day 3-/10 in LUQ of abdomen-pt tends to fall asleep directly after pain medication. Since pt dizzy around 1430 this RN has been trying to encourage lower dose of the pain medication if tolerable for pt's pain and pt pain still seems well controlled w/the lower doses/pt still falls asleep after dose and rests comfortably. Voiding w/o difficulty. Wound vac to-125mmhg of suction CDI. Lungs dim w/expiratory wheezing in ANAMARIA of lungs-MD notified and aware. IS encouraged. BLE trace edema-scott coloration. Pulses palpable. Bowel sounds normoactive-passing flatus. LBM today. VSS. WCTM. PLAN MOVING FORWARD: NPO 0000 tonight for WV change in OR tomorrow. Monitor pain control. Encourage movement. Encourage staying awake more during the day. INDIVIDUALIZED FALL PREVENTION INTERVENTIONS: Patient-specific fall risk factors per assessment: [current deficits]: 2 assist OOB; dizzy today; WVcreates tripping hazard; obese; uses a walker at baseline Assistance [level of assistance required for transfers and ambulation]: 2 assist OOB w/walker Supervision [direct monitoring required during toileting and ADLs]: Hands on 2 assist OOB w/walker Surveillance [continuous indirect monitoring]: Masimo Patient-specific fall prevention interventions for sensory deficits provided, if applicable: [X] YesBed alarm on; chair alarm on; room near nurse's station CARE PLAN GOAL OUTCOME EVALUATION: Brief Op Note - Olya Daniel MD - 08/15/2021 3:49 AM EDT Brief Operative Note Patient Name: Jahaira Montgomery : [id number] MR#: [id number] Case Date: 08/15/2021 Surgeon: Surgeon(s) and Role: * Olya Daniel MD - Primary * Charly Agrawal MD - Resident * Shauna Whitaker MD - Resident Preoperative diagnosis: Abdominal wall abscess Postoperative diagnosis: Abdominal wall abscess Procedure(s) (LRB): MODIFIER WOUND VAC (N/A) DEBRIDEMENT SKIN, SUBCU, MUSCLE, ABDOMEN (WRVU 2.7) (Midline) Anesthesia: General Findings: Small amount of mesh debrided from the edge of the fascia. Ischemic fat sharply removed with scissors. One white sponge and one black sponge placed. Complications: none Estimated Blood Loss: 20 mls Specimens removed during surgery: None Fluids: 300 mls PRBCs: none (See Anesthesia Record/Report for Other Blood Products) Urine Output: (no urine output recorded) Drains: none Disposition: awakened from anesthesia, extubated and taken to the recovery room in a stable condition, having suffered no apparent untoward event. Condition: doing well without problems (Please see the Surgical Encounter Summary for any Implant and Specimen details pertinent to this patient.) Surgical Infection Prevention Bundle Used? N/A Op Note - Olya Daniel MD - 08/15/2021 3:21 AM EDT Images from the original note were not included. [facility] [place] Patient Name: Jahaira Montgomery : [id number] MR#: [id number] Case Date: 08/15/2021 Surgeon: Surgeon(s) and Role: * Olya Daniel MD - Primary * Charly Agrawal MD - Resident Preoperative diagnosis: Abdominal wall abscess Postoperative diagnosis: Abdominal wall abscess Procedure(s) (LRB): MODIFIER WOUND VAC (N/A) DEBRIDEMENT SKIN, SUBCU, MUSCLE, ABDOMEN (WRVU 2.7) (Midline) Findings: Small amount of mesh debrided from the edge of the fascia. Ischemic fat sharply removed with scissors. One white sponge and one black sponge placed. [id number] wound. Anesthesia: General Estimated Blood Loss: 20 mls Specimens removed during surgery: None Drains: Wound vac Surgical Closure: Other Than Primary Closure - superficial layers are left completely open during original surgery, deep layers completely closed Disposition: awakened from anesthesia, extubated and taken to the recovery room in a stable condition, having suffered no apparent untoward event. Condition: doing well without problems (Please see the Surgical Encounter Summary for any Implant and Specimen details pertinent to this patient.) HPI/Surgical Indications: Jahaira Montgomery is a 61 y.o. female who recently underwent abdominal ventral hernia repair with mesh on 2021. She represented 08/12/2021 with signs and symptoms of a wound infection with a large subcutaneous abscess confirmed on CT which was opened, drained and debrided on admission. A vac was placed. Plan for vac change and serial debridement. Procedure Description: The patient was identified and consented preoperatively. She was brought to the OR and after induction of anesthesia an LMA was placed. She was positioned supine. Her wound vac was removed and 1 piece black and 1 piece white sponge were removed. Her abdomen was prepped with betadine and draped in sterile fashion. Antibiotics had recently been given. A timeout was performed. Her wound showed early granulation tissue along the base of the wound over the fascia. The midline remained similarly discolored with no obvious fluctuance, no fascial dehiscence. The remaining mesh was intact. The wound edges had ischemic fat that was sharply debrided with scissors until healthier bleeding tissue was identified. The wound was irrigated with warm saline. Hemostasis was ensured. A wound vac was reapplied in usual fashion with 1 piece white and 1 piece black in the wound. All counts were correct. The patient was extubated and returned to the PACU in stable condition. A picture from prior to debridement is below: Surgical Infection Prevention Bundle Used? N/A Attestation: Case Date: 08/15/2021 I was present and I participated during the entire procedure (does not need to include opening and closing). OLYA DANIEL MD 08/15/2021 Plan of Care - Enedina Gastelum RN - 08/14/2021 3:45 AM EDT OUTCOME EVALUATION NOTE: OUTCOME SUMMARY: Patient complains of pain on LUQ, medicated with dilaudid 4 mg every 4 hours and patient reported adequate pain control. Wound vac in place on abdomen. NPO since MN. Reeder draining yellow urine adequate amounts. Patient slept well. HR 48 when sleeping and alarming on Masimo at times. PLAN MOVING FORWARD: Monitor pain control, Plan for OR in am. Monitor vital signs INDIVIDUALIZED FALL PREVENTION INTERVENTIONS: Patient-specific fall risk factors per assessment: [current deficits]: unfamiliar place, pain , narcotics Assistance [level of assistance required for transfers and ambulation]: 1 assist Supervision [direct monitoring required during toileting and ADLs]: Hands on Surveillance [continuous indirect monitoring]: Call light in reach, purposeful rounds Patient-specific fall prevention interventions for sensory deficits provided, if applicable: [X] Yesadjust lighting CARE PLAN GOAL OUTCOME EVALUATION: ongoing Initial Assessments - Aria Shultz RN - 08/13/2021 1:37 PM EDT Office of Care Management Initial Assessment Aria Shultz RN reviewed record and discussed patient with Care Team. Patient previously admitted from 07/22-07/25 for hernia repair. On the went to f/u appt to remove shelley and came back [facility] yesterday with abdominal pain d/t surgical wound infection. Pt is now s/p I&D in OR and wound vac placement. To OR tomorrow for wound vac change. Source of Information: Team, bedside nurse, medical record, and Patient Introduced self/reviewed role; services accepted. Reason for Hospitalization: Wound infection after surgery Last COVID test: Lab Results Component Value Date COVID19 Not Detected 04/27/2021 [id number] Not Detected 08/12/2021 Past medical History: Past Medical History: Diagnosis [...] declines If AD's have not been completed sibling would be surrogate decision maker per [place] surrogate decision making law. (Only good for 180 days) Any patient receiving care at [facility] must abide by [place] law. The hierarchy for surrogate decision making [...] (i) The agent with financial power of real estate attorney or a conservator appointed in accordance with RSA 464-A. (j) The guardian of the patient???s estate. Current Coping/Education/Information Needs: coping ok 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, Assistive Equipment and Assistive Person Functional Status Prior to Admission: Independent Prior ADLs & IADLs: Independent with all ADLs & IADLs Home Environment: Others in the home: sibling(s). Current Living Arrangements: home/apartment/condo. Accessibility Concerns:ramp to enter home and lives on one level. Resource / Environmental Concerns: Resource/Environmental Concerns: none Current DME: none Home Address confirmed as: [address] [place] [id number] Social & Family Supports: Extended Emergency Contact Information Primary Emergency Contact: SOLOMON LACY Mobile Relation: Sibling Current Care Provided by: self Provides Primary Care For: no one Caregiver if needed: sibling(s) Quality of Family relationships: helpful, involved Community Resources being provided currently: homecare agency Behavioral Health History: denies Substance Use/Abuse confirmed: Social History Tobacco Use Smoking Status Current Every Day Smoker ??? Packs/day: 0.50 ??? Years: 40.00 ??? Pack years: 20.00 ??? Types: Cigarettes Smokeless Tobacco Never Used 0 No problems reported 1-2 Low level 3-5 Moderate level 6-8 Substantial level 9- 10 Severe level 0 to 7 points: Low risk 8 to 15 points: Medium risk 16 to 19 points: High risk 20 to 40 points: Addiction likely Other Pertinent/Service Specific Information: n/a Health/Prescription Coverage: Primary Insurance: [place] Pay[place] / Plan[place] / Product Type: *No Product type* / Secondary Insurance: N/A Prescription Coverage: Yes Preferred Pharmacy: [facility] [address] [facility] [address] [facility] [address] Status: Patient is a : No Primary Care Provider: Ally Ortiz, [employer]SULTANT [phone] Patient/Caregiver Goals of Treatment: feel better Potential Needs for Transition of Care: home health care Agency Referrals: I have met with the patient to: ?? discuss discharge planning needs. ?? provide the [facility], Office of Care Management letter from the Plastic Eye Technician pertaining to rehab referrals. ?? provide a letter describing our affiliations within the [facility] and educate about their right to choose where referrals are sent. ?? provide a list of Home Health Agencies / Durable Medical Equipment vendors which serve their preferred geographic area. ?? provided patient with [facility] Star Quality Rating handout. They have requested referrals to: [facility] [place] [address] PHONE: [phone] FAX: [phone] Name: [employer]-For wound vac Tel.#: [phone] fax#: Equipment ordered:wound vac Note routed to a Tread Cutter who will communicate referrals to facilities and provide any required information. Transportation: no concerns Transportation Anticipated: family or friend will provide Concerns to be Addressed: discharge planning Assessment: Patient is admitted to [facility] service for wound infection after surgery Plan: Patient will go home with support of brother, homecare and will require a wound vac. Wound Vacpaperwork faxed to [facility]. Order placed. Medicaid paperwork given to team tocomplete and will need to be faxed to [facility]. A member of the Care Management team will continue to monitor progress, follow for continuity of care and assist with transition of care planning. Aria Shultz RN, BSN Case Management Consult Note - Manuel King RPH - 08/13/2021 12:00 PM EDT TelePharmacy Home Medication List Update for Medication Reconciliation 08/13/21 12:00 PM Jahaira Montgomery 1960 No Known Allergies ??? Person Interviewed: patient ??? Quality of Interview/accuracy of medication list: good ??? Sources used to compile medication list: [x] Epic medication list [x] SureScripts [] PCP/Specialist list [] Retail pharmacy [] Patient list [] MAR [] Other ??? Changes made to home medication list: o Additions: - Plavix 75mg po daily o Deletions: - Nicotine patches - Nicotine gum - Albuterol inhaler o Changes: - Senokot 2 tab po nightly - Ibuprofen 400mg po every 6 hours prn ??? Additional Notes: None ??? Recommended changes: None The home medication list is now updated to the best of my knowledge and is ready to be reconciled bythe provider. Please contact the TelePharmacy Medication Reconciliation Pharmacist at for any questions. Manuel King RPH Op Note - Joshua Che MD - 08/12/2021 6:51 PM EDT [facility] [place] Patient Name: Jahaira Montgomery : [id number] MR#: [id number] Case Date: 08/12/2021 Surgeon: Surgeon(s) and Role: * Joshua Che MD - Primary * Charly Agrawal MD - Resident Preoperative diagnosis: wound infection Postoperative diagnosis: wound infection Procedure(s) (LRB): I & D ABSCESS, SIMPLE OR SINGLE, TRUNK (WRVU 1.22) (N/A) Findings: - [id number] abscess of abdominal wall over mesh. - Skin and subcutaneous tissue debrided, superficial layers of ovitex mesh removed as they had dissociated from the bulk of the mesh. - Vac placed with 1 piece white and 1 piece black sponge Anesthesia: General Estimated Blood Loss: * No values recorded between 08/12/2021 6:51 PM and 08/12/2021 7:14 PM * Specimens removed during surgery: Wound cultures Drains: Vac Surgical Closure: Other Than Primary Closure - superficial layers are left completely open during original surgery, deep layers completely closed Disposition: awakened from anesthesia, extubated and taken to the recovery room in a stable condition, having suffered no apparent untoward event. Condition: doing well without problems (Please see the Surgical Encounter Summary for any Implant and Specimen details pertinent to this patient.) HPI/Surgical Indications: Jahaira Montgomery is a 61 y.o. female who recently underwent abdominal ventral hernia repair with mesh on 2021. She represented today with signs and symptoms of a wound infection with a large subcutaneous abscess confirmed on CT. Plan for debridement, drainage of abscess, wound exploration. Procedure Description: The patient was identified and consented preoperatively. She was brought to the OR and after induction of anesthesia an ETT and reeder were placed. She was positioned supine. Her abdomen was prepped with betadine and draped in sterile fashion. Antibiotics had recently been given.A timeout was performed. There was an area of necrotic skin overlying the abscess that was sharply debrided and excised with a scalpel, measuring approximately 7cm by 3 cm by 1 cm. Wound cultures were sent from the pus emanating from the wound. The entire midline incision was reopened as there was purulent material along the entire length of the incision. The abscess was completely drained and areas of loculated material opened. There were loose superficial layers of the ovitex mesh that were removed but the bulk of the mesh was left in place. There was midline discoloration underlying the mesh but no obvious infection andno evidence of fascial dehiscence or EC fistula. Hemostasis was gained with cautery. A small bleeding vein along the skin edge was controlled with vicryl stitches. A strip of white sponge was placed over the midline portion of the mesh and a black sponge placed on top. The vac was secured and suction applied in usual fashion. The patient was extubated and returned to the PACU in stable condition. Allcounts were correct. Surgical Infection Prevention Bundle Used? N/A Attestation: Case Date: 08/12/2021 I was present and I participated during the entire procedure (does not need to include opening and closing). Joshua Che MD 08/12/2021 documented in this encounter Plan of Treatment Upcoming Encounters Date Type Specialty Care Team Description 09/30/2021 Office Visit General Surgery Paloma Mota, T[facility] GENERAL SURGERY [place], [place] [address] (Wo rk) 09/30/2021 Office Visit Infectious Diseases Werner Harrell MD [facility] INF[facility]OUS [place], [place] [address] (Wo rk) Scheduled Referrals Name Type Priority Associated Diagnoses Order S chedule Referral to Home Outpatient Referral Routine Wound infection O rdered: Health after surgery 08/22/2021 documented as of this encounter Procedures Procedure Name Priority Date/Time Associated Comments Diagnosis POCT GLUCOSE Routine 08/22/2021 7:45 AM Results f or this EDT procedure are i n the results section. POCT GLUCOSE Routine 08/22/2021 3:38 AM Results f or this EDT procedure are i n the results section. POCT GLUCOSE Routine 08/22/2021 2:04 AM Results f or this EDT procedure are i n the results section. POCT GLUCOSE Routine 08/21/2021 10:19 Results for this PM EDT procedure are i n the results section. POCT GLUCOSE Routine 08/21/2021 3:38 PM Results f or this EDT procedure are i n the results section. POCT GLUCOSE Routine 08/21/2021 11:22 Results for this AM EDT procedure are i n the results section. POCT GLUCOSE Routine 08/21/2021 7:44 AM Results f or this EDT procedure are i n the results section. POCT GLUCOSE Routine 08/21/2021 4:08 AM Results f or this EDT procedure are i n the results section. POCT GLUCOSE Routine 08/20/2021 11:31 Results for this PM EDT procedure are i n the results section. POCT GLUCOSE Routine 08/20/2021 8:13 PM Results f or this EDT procedure are i n the results section. POCT GLUCOSE Routine 08/20/2021 3:30 PM Results f or this EDT procedure are i n the results section. POCT GLUCOSE Routine 08/20/2021 11:09 Results for this AM EDT procedure are i n the results section. HC VENIPUNCTURE Timed 08/20/2021 10:31 Results for this AM EDT procedure are i n the results section. POCT GLUCOSE Routine 08/20/2021 7:27 AM Results f or this EDT procedure are i n the results section. POCT GLUCOSE Routine 08/20/2021 5:14 AM Results f or this EDT procedure are i n the results section. POCT GLUCOSE Routine 08/19/2021 11:34 Results for this PM EDT procedure are i n the results section. POCT GLUCOSE Routine 08/19/2021 8:26 PM Results f or this EDT procedure are i n the results section. POCT GLUCOSE Routine 08/19/2021 6:53 PM Results f or this EDT procedure are i n the results section. SECONDARY CLOSE Routine 08/19/2021 5:20 PM SURGICAL WOUND OR EDT DEHISCENCE, EXTENS/COMPLICAT, TRNK SECONDARY CLOSURE 08/19/2021 4:05 PM Abdominal wall SURGICAL WOUND OR EDT wound DEHISCENCE, EXTENSIVE OR COMPLICATED, TRUNK (WRVU 12.04) POCT GLUCOSE Routine 08/19/2021 12:02 Results for this PM EDT procedure are i n the results section. POCT GLUCOSE Routine 08/19/2021 7:57 AM Results f or this EDT procedure are i n the results section. HC C-REACTIVE PROTEIN Routine 08/19/2021 5:50 AM Results for this EDT procedure are i n the results section. SCAN, PERIPHERAL Routine 08/19/2021 5:50 AM Resul ts for this BLOOD EDT procedure are i n the results section. HEMOGRAM Routine 08/19/2021 5:50 AM Results f or this EDT procedure are i n the results section. DIFFERENTIAL, Routine 08/19/2021 5:50 AM Results for this AUTOMATED EDT procedure are i n the results section. HC VENIPUNCTURE Routine 08/19/2021 5:50 AM EDT HC PHOSPHORUS, SERUM Routine 08/19/2021 5:50 AM R esults for this EDT procedure are i n the results section. HC MAGNESIUM, SERUM Routine 08/19/2021 5:50 AM Re sults for this EDT procedure are i n the results section. BASIC METABOLIC PANEL Routine 08/19/2021 5:50 AM Results for this (NON-FASTING) EDT procedure are in the results section. POCT GLUCOSE Routine 08/19/2021 4:39 AM Results f or this EDT procedure are i n the results section. POCT GLUCOSE Routine 08/19/2021 12:03 Results for this AM EDT procedure are i n the results section. POCT GLUCOSE Routine 08/18/2021 7:54 PM Results f or this EDT procedure are i n the results section. POCT GLUCOSE Routine 08/18/2021 5:22 PM Results f or this EDT procedure are i n the results section. POCT GLUCOSE Routine 08/18/2021 12:05 Results for this PM EDT procedure are i n the results section. HC VENIPUNCTURE Timed 08/18/2021 8:45 AM Result s for this EDT procedure are i n the results section. POCT GLUCOSE Routine 08/18/2021 8:28 AM Results f or this EDT procedure are i n the results section. POCT GLUCOSE Routine 08/18/2021 4:20 AM Results f or this EDT procedure are i n the results section. POCT GLUCOSE Routine 08/17/2021 11:32 Results for this PM EDT procedure are i n the results section. POCT GLUCOSE Routine 08/17/2021 8:02 PM Results f or this EDT procedure are i n the results section. POCT GLUCOSE Routine 08/17/2021 4:52 PM Results f or this EDT procedure are i n the results section. POCT GLUCOSE Routine 08/17/2021 12:26 Results for this PM EDT procedure are i n the results section. MODIFIER WOUND VAC 08/17/2021 11:38 Abdominal wall AM EDT wound DEBRIDEMENT SKIN AND 08/17/2021 11:38 Abdominal wall SUBCU, FIRST 20 SQ AM EDT wound CM, ABDOMEN (WRVU 1.01) POCT GLUCOSE Routine 08/17/2021 11:20 Results for this AM EDT procedure are i n the results section. POCT GLUCOSE Routine 08/17/2021 7:53 AM Results f or this EDT procedure are i n the results section. DEBRIDEMENT SKIN AND Routine 08/17/2021 7:23 AM SUBCU, ABDOMEN EDT POCT GLUCOSE Routine 08/17/2021 4:12 AM Results f or this EDT procedure are i n the results section. POCT GLUCOSE Routine 08/16/2021 11:06 Results for this PM EDT procedure are i n the results section. POCT GLUCOSE Routine 08/16/2021 8:27 PM Results f or this EDT procedure are i n the results section. HC C-REACTIVE PROTEIN Routine 08/16/2021 5:44 PM Results for this EDT procedure are i n the results section. POCT GLUCOSE Routine 08/16/2021 4:38 PM Results f or this EDT procedure are i n the results section. POCT GLUCOSE Routine 08/16/2021 12:22 Results for this PM EDT procedure are i n the results section. POCT GLUCOSE Routine 08/16/2021 7:38 AM Results f or this EDT procedure are i n the results section. POCT GLUCOSE Routine 08/16/2021 4:26 AM Results f or this EDT procedure are i n the results section. HC VANCOMYCIN Timed 08/16/2021 4:07 AM Results for this EDT procedure are i n the results section. POCT GLUCOSE Routine 08/16/2021 12:24 Results for this AM EDT procedure are i n the results section. POCT GLUCOSE Routine 08/15/2021 7:15 PM Results f or this EDT procedure are i n the results section. POCT GLUCOSE Routine 08/15/2021 4:58 PM Results f or this EDT procedure are i n the results section. COVID-19 PCR Routine 08/15/2021 3:31 PM Results f or this EDT procedure are i n the results section. POCT GLUCOSE Routine 08/15/2021 12:42 Results for this PM EDT procedure are i n the results section. POCT GLUCOSE Routine 08/15/2021 6:21 AM Results f or this EDT procedure are i n the results section. PHOSPHORUS Routine 08/15/2021 5:40 AM Results f or this EDT procedure are i n the results section. MAGNESIUM Routine 08/15/2021 5:40 AM Results f or this EDT procedure are i n the results section. BASIC METABOLIC PANEL Routine 08/15/2021 5:40 AM Results for this (NON-FASTING) EDT procedure are in the results section. DEBRIDEMENT SKIN, Routine 08/15/2021 3:52 AM SUBCU, MUSCLE, EDT ABDOMEN DEBRIDEMENT SKIN, 08/15/2021 2:59 AM Abdominal wall SUBCU, MUSCLE, EDT abscess ABDOMEN (WRVU 2.7) MODIFIER WOUND VAC 08/15/2021 2:59 AM Abdominal wall EDT abscess POCT GLUCOSE Routine 08/14/2021 11:26 Results for this PM EDT procedure are i n the results section. POCT GLUCOSE Routine 08/14/2021 7:39 PM Results f or this EDT procedure are i n the results section. POCT GLUCOSE Routine 08/14/2021 4:34 PM Results f or this EDT procedure are i n the results section. HC VENIPUNCTURE Timed 08/14/2021 12:01 Results for this PM EDT procedure are i n the results section. POCT GLUCOSE Routine 08/14/2021 11:32 Results for this AM EDT procedure are i n the results section. POCT GLUCOSE Routine 08/14/2021 8:03 AM Results f or this EDT procedure are i n the results section. EKG 12-LEAD STAT 08/14/2021 4:30 AM Wound infection Result s for this EDT after surgery procedure are in the results section. HC PHOSPHORUS, SERUM Routine 08/14/2021 3:47 AM R esults for this EDT procedure are i n the results section. HC VENIPUNCTURE Routine 08/14/2021 3:47 AM Result s for this EDT procedure are i n the results section. BASIC METABOLIC PANEL Routine 08/14/2021 3:47 AM Results for this (NON-FASTING) EDT procedure are in the results section. POCT GLUCOSE Routine 08/14/2021 2:58 AM Results f or this EDT procedure are i n the results section. POCT GLUCOSE Routine 08/13/2021 9:40 PM Results f or this EDT procedure are i n the results section. POCT GLUCOSE Routine 08/13/2021 4:44 PM Results f or this EDT procedure are i n the results section. POCT GLUCOSE Routine 08/13/2021 1:54 PM Results f or this EDT procedure are i n the results section. POCT GLUCOSE Routine 08/13/2021 11:47 Results for this AM EDT procedure are i n the results section. HEMOGRAM Routine 08/13/2021 5:54 AM Results f or this EDT procedure are i n the results section. DIFFERENTIAL, Routine 08/13/2021 5:54 AM Results for this AUTOMATED EDT procedure are i n the results section. HC CBC,PLT & AUTO Routine 08/13/2021 5:54 AM DIFF EDT HC PHOSPHORUS, SERUM Routine 08/13/2021 5:54 AM R esults for this EDT procedure are i n the results section. HC MAGNESIUM, SERUM Routine 08/13/2021 5:54 AM Re sults for this EDT procedure are i n the results section. HC HEMOGLOBIN A1C Routine 08/13/2021 5:54 AM Resu lts for this EDT procedure are i n the results section. BASIC METABOLIC PANEL Routine 08/13/2021 5:54 AM Results for this (NON-FASTING) EDT procedure are in the results section. ANAEROBIC CULTURE Routine 08/12/2021 7:49 PM Resu lts for this EDT procedure are i n the results section. ANAEROBIC CULTURE Routine 08/12/2021 7:49 PM Resu lts for this EDT procedure are i n the results section. HC TISSUE CULTURE Routine 08/12/2021 7:49 PM EDT HC BODY FLUID CULTURE Routine 08/12/2021 7:49 PM EDT TISSUE CULTURE Routine 08/12/2021 7:49 PM Results for this EDT procedure are i n the results section. BODY FLUID CULTURE, Routine 08/12/2021 7:49 PM Re sults for this AEROBIC EDT procedure are i n the results section. I & D ABSCESS, SIMPLE 08/12/2021 6:17 PM wound infecti on OR SINGLE, TRUNK EDT (WRVU 1.22) I&D ABSCESS, Routine 08/12/2021 5:45 PM SIMPLE/SINGLE,TRUNK EDT RAPID COVID-19 PCR STAT 08/12/2021 4:02 PM Res ults for this ([facility]) EDT procedure are in the results section. CT ABDOMEN AND PELVIS STAT 08/12/2021 2:33 PM Results for this WO CONTRAST EDT procedure are i n the results section. BLOOD GAS 2 VENOUS Routine 08/12/2021 2:15 PM Res ults for this EDT procedure are i n the results section. HEMOGRAM STAT 08/12/2021 2:10 PM Results f or this EDT procedure are i n the results section. DIFFERENTIAL, STAT 08/12/2021 2:10 PM Results for this AUTOMATED EDT procedure are i n the results section. HC CBC,PLT & AUTO STAT 08/12/2021 2:10 PM DIFF EDT BASIC METABOLIC PANEL STAT 08/12/2021 2:10 PM Results for this (NON-FASTING) EDT procedure are in the results section. documented in this encounter Results POCT Glucose (08/22/2021 7:45 AM EDT) P athologist Signature POC Glucose 105 65 - 199 [facility] mg/dL [facility] Comment: Supplemental ranges: <140 mg/dL before meals <180 mg/dL all other times of the day Specimen Anatomical Collection Method Collection Time Receive d Time (Source) Location / / Volume Laterality Blood 08/22/2021 7:45 AM 7:45 EDT AM EDT Ai Arriaza MD POINT OF CARE TEST ORDERABLE S Performing Organization Address City/State/ZIP [place] [address] POCT Glucose (08/22/2021 3:38 AM EDT) athologist Signature POC Glucose 96 65 - 199 [place] mg/dL [facility] Comment: Supplemental ranges: <140 mg/dL before meals <180 mg/dL all other times of the day Specimen Anatomical Collection Method Collection Time Receive d Time (Source) Location / / Volume Laterality Blood 08/22/2021 3:38 AM 2 3:38 EDT AM EDT Ai Arriaza MD POINT OF CARE TEST ORDERABLE S Performing Organization Address City/State/[place] [address] POCT Glucose (08/22/2021 2:04 AM EDT) athologist Signature POC Glucose 106 65 - 199 [place] mg/dL [facility] Comment: Supplemental ranges: <140 mg/dL before meals <180 mg/dL all other times of the day Specimen Anatomical Collection Method Collection Time Receive d Time (Source) Location / / Volume Laterality Blood 08/22/2021 2:04 AM 2 2:04 EDT AM EDT Ai Arriaza MD POINT OF CARE TEST ORDERABLE S Performing Organization Address City/State/[place] [address] POCT Glucose (08/21/2021 10:19 PM EDT) athologist Signature POC Glucose 106 65 - 199 [place] mg/dL [facility] Comment: Supplemental ranges: <140 mg/dL before meals <180 mg/dL all other times of the day Specimen Anatomical Collection Method Collection Time Receive d Time (Source) Location / / Volume Laterality Blood 08/21/2021 10:19 08/21/2021 PM EDT 10:19 PM EDT Ai Arriaza MD POINT OF CARE TEST ORDERABLE S Performing Organization Address City/State/[place] [address] POCT Glucose (08/21/2021 3:38 PM EDT) athologist Signature POC Glucose 97 65 - 199 [place] mg/dL [facility] Comment: Supplemental ranges: <140 mg/dL before meals <180 mg/dL all other times of the day Specimen Anatomical Collection Method Collection Time Receive d Time (Source) Location / / Volume Laterality Blood 08/21/2021 3:38 PM 2 3:38 EDT PM EDT Ai Arriaza MD POINT OF CARE TEST ORDERABLE S Performing Organization Address City/State/ZIP Code Phon e Number [address] POCT Glucose (08/21/2021 11:22 AM EDT) athologist Signature POC Glucose 144 65 - 199 [facility] Comment: Supplemental ranges: <140 mg/dL before meals <180 mg/dL all other times of the day Specimen Anatomical Collection Method Collection Time Receive d Time (Source) Location / / Volume Laterality Blood 08/21/2021 11:22 08/21/2021 AM EDT 11:22 AM EDT Loco White MD POINT OF CARE TEST ORDERABLE S Performing Organization Address City/State/ZIP Code Phon e Number [address] POCT Glucose (08/21/2021 7:44 AM EDT) athologist Signature POC Glucose 105 65 - 199 [facility] [place] mg/dL [facility] Comment: Supplemental ranges: <140 mg/dL before meals <180 mg/dL all other times of the day Specimen Anatomical Collection Method Collection Time Receive d Time (Source) Location / / Volume Laterality Blood 08/21/2021 7:44 AM 2 7:44 EDT AM EDT Loco White MD POINT OF CARE TEST ORDERABLE S Performing Organization Address City/State/ZIP Code Phon e Number [address] POCT Glucose (08/21/2021 4:08 AM EDT) athologist Signature POC Glucose 109 65 - 199 [place] mg/dL [facility] Comment: Supplemental ranges: <140 mg/dL before meals <180 mg/dL all other times of the day Specimen Anatomical Collection Method Collection Time Receive d Time (Source) Location / / Volume Laterality Blood 08/21/2021 4:08 AM 2 4:08 EDT AM EDT Loco White MD POINT OF CARE TEST ORDERABLE S Performing Organization Address City/State/ZIP Code Phon e Number [address] POCT Glucose (08/20/2021 11:31 PM EDT) athologist Signature POC Glucose 113 65 - 199 [place] mg/dL [facility] Comment: Supplemental ranges: <140 mg/dL before meals <180 mg/dL all other times of the day Specimen Anatomical Collection Method Collection Time Receive d Time (Source) Location / / Volume Laterality Blood 08/20/2021 11:31 08/20/2021 PM EDT 11:31 PM EDT Loco White MD POINT OF CARE TEST ORDERABLE S Performing Organization Address City/State/[place] [address] POCT Glucose (08/20/2021 8:13 PM EDT) athologist Signature POC Glucose 118 65 - 199 [place] mg/dL [facility] Comment: Supplemental ranges: <140 mg/dL before meals <180 mg/dL all other times of the day Specimen Anatomical Collection Method Collection Time Receive d Time (Source) Location / / Volume Laterality Blood 08/20/2021 8:13 PM 2 8:13 EDT PM EDT Loco White MD POINT OF CARE TEST ORDERABLE S Performing Organization Address City/State/ZIP Code Phon e Number [address] POCT Glucose (08/20/2021 3:30 PM EDT) athologist Signature POC Glucose 118 65 - 199 [place] mg/dL [facility] Comment: Supplemental ranges: <140 mg/dL before meals <180 mg/dL all other times of the day Specimen Anatomical Collection Method Collection Time Receive d Time (Source) Location / / Volume Laterality Blood 08/20/2021 3:30 PM 3:30 EDT PM EDT Loco White MD POINT OF CARE TEST ORDERABLE S Performing Organization Address City/[facility]/ZIP Code Phon e Number [address] POCT Glucose (08/20/2021 11:09 AM EDT) P athologist Signature POC Glucose 143 65 - 199 [facility] mg/dL [facility] Comment: Supplemental ranges: <140 mg/dL before meals <180 mg/dL all other times of the day Specimen Anatomical Collection Method Collection Time Receive d Time (Source) Location / / Volume Laterality Blood 08/20/2021 11:09 08/20/2021 AM EDT 11:09 AM EDT Loco White MD POINT OF CARE TEST ORDERABLE S Performing Organization Address City/[facility]/[place] [address] Vancomycin, trough (08/20/2021 10:31 AM EDT) P athologist Signature Vanc Trough 19.3 mg/L [facility] Comment: Therapeutic range for complicated infect ions such as bacteremia, endocarditis, osteomyelitis, meningitis, and hospital- acquired pneumonia caused by S. aureus: 15-20 mg/L Therapeutic range for other indications: 10-15 mg/L Toxic: >20 mg/L Reference: Vancomycin Therapeutic Monitoring: Clive w and Recommendations from the ASHP, IDSA and SIDP Task Force. ??[employer] J [employer]- Syst Pharm. 2009; 66:82-98 Specimen Anatomical Collection Method Collection Time Receive d Time (Source) Location / / Volume Laterality Blood 08/20/2021 10:31 08/20/2021 AM EDT 10:56 AM EDT Resulting Agency Comment Spec In Lab Loco White MD CHEMISTRY ORDERABLES Performing Organization Address City/[facility]/ZIP Code [place] [address] POCT Glucose (08/20/2021 7:27 AM EDT) athologist Signature POC Glucose 113 65 - 199 [place] mg/dL [facility] Comment: Supplemental ranges: <140 mg/dL before meals <180 mg/dL all other times of the day Specimen Anatomical Collection Method Collection Time Receive d Time (Source) Location / / Volume Laterality Blood 08/20/2021 7:27 AM 2 7:27 EDT AM EDT Loco White MD POINT OF CARE TEST ORDERABLE S Performing Organization Address City/State/ZIP Code Phon e Number [place] [id number] POCT Glucose (08/20/2021 5:14 AM EDT) athologist Signature POC Glucose 128 65 - 199 [place] mg/dL [facility] Comment: Supplemental ranges: <140 mg/dL before meals <180 mg/dL all other times of the day Specimen Anatomical Collection Method Collection Time Receive d Time (Source) Location / / Volume Laterality Blood 08/20/2021 5:14 AM 2 5:14 EDT AM EDT Loco White MD POINT OF CARE TEST ORDERABLE S Performing Organization Address City/State/ZIP [place] [address] POCT Glucose (08/19/2021 11:34 PM EDT) athologist Signature POC Glucose 174 65 - 199 [place] mg/dL [facility] Comment: Supplemental ranges: <140 mg/dL before meals <180 mg/dL all other times of the day Specimen Anatomical Collection Method Collection Time Receive d Time (Source) Location / / Volume Laterality Blood 08/19/2021 11:34 08/19/2021 PM EDT 11:34 PM EDT Loco White MD POINT OF CARE TEST ORDERABLE S Performing Organization Address City/State/ZIP [place] [address] POCT Glucose (08/19/2021 8:26 PM EDT) athologist Signature POC Glucose 153 65 - 199 [place] mg/dL [facility] Comment: Supplemental ranges: <140 mg/dL before meals <180 mg/dL all other times of the day Specimen Anatomical Collection Method Collection Time Receive d Time (Source) Location / / Volume Laterality Blood 08/19/2021 8:26 PM 2 8:26 EDT PM EDT Loco White MD POINT OF CARE TEST ORDERABLE S Performing Organization Address City/State/ZIP Code Phon e Number [address] POCT Glucose (08/19/2021 6:53 PM EDT) athologist Signature POC Glucose 150 65 - 199 [place] mg/dL [facility] Comment: Supplemental ranges: <140 mg/dL before meals <180 mg/dL all other times of the day Specimen Anatomical Collection Method Collection Time Receive d Time (Source) Location / / Volume Laterality Blood 08/19/2021 6:53 PM 2 6:53 EDT PM EDT Loco White MD POINT OF CARE TEST ORDERABLE S Performing Organization Address City/State/[place] [address] POCT Glucose (08/19/2021 12:02 PM EDT) athologist Signature POC Glucose 106 65 - 199 [place] mg/dL [facility] Comment: Supplemental ranges: <140 mg/dL before meals <180 mg/dL all other times of the day Specimen Anatomical Collection Method Collection Time Receive d Time (Source) Location / / Volume Laterality Blood 08/19/2021 12:02 08/19/2021 PM EDT 12:02 PM EDT Loco White MD POINT OF CARE TEST ORDERABLE S Performing Organization Address City/State/[place] [address] POCT Glucose (08/19/2021 7:57 AM EDT) P athologist Signature POC Glucose 105 65 - 199 [facility] mg/dL [facility] Comment: Supplemental ranges: <140 mg/dL before meals <180 mg/dL all other times of the day Specimen Anatomical Collection Method Collection Time Receive d Time (Source) Location / / Volume Laterality Blood 08/19/2021 7:57 AM 2 7:57 EDT AM EDT Loco White MD POINT OF CARE TEST ORDERABLE S Performing Organization Address City/State/ZIP Code Phon e Number [address] Scan, Peripheral Blood (08/19/2021 5:50 AM EDT) [facility] Method Time Signature Plat Estimate Increased [facility] RBC Morphology Normal [facility] Platelet Clumps Present [facility] Specimen Anatomical Collection Method Collection Time Receive d Time (Source) Location / / Volume Laterality Blood 08/19/2021 5:50 AM 2 6:07 EDT AM EDT Resulting Agency Comment Spec In Lab Lisandro Treviño MD HEMATOLOGY ORDERABLES Performing Organization Address City/[facility]/ZIP Code Phon e Number [address] (ABNORMAL) Differential, Automated (08/19/2021 5:50 AM EDT) [facility] Method Time Signature Neutrophils % 39.5 % [facility] Neutr Abs (ANC) 4.74 1.70 - [facility] 6.10 [facility] x10(3)/[facility] LABORATORY Lymphocytes % 30.7 % [facility] Lymphocytes Abs 3.7 (H) 0.9 - 3.2 [facility] x10(3)/[facility] LABORATORY Monocytes % 7.6 % [facility] Monocyte Abs 0.9 0.3 - 0.9 [facility] x10(3)/[facility] LABORATORY Eosinophils % 20.8 % [facility] Eosinophils Abs 2.5 (H) 0.0 - 0.4 [facility] x10(3)/[facility] LABORATORY Basophils % 0.7 % [facility] Basophils Abs 0.1 0.0 - 0.1 [facility] x10(3)/[facility] LABORATORY Immature Gran % 0.70 % [facility] Comment: Immature granulocytes(IG's)percentage an d absolute count will include metamyelocytes, myelocytes, and promyelo cytes. Blood smears from CBCs yielding IG's will be scanned manually for concor dance. If this scan disagrees with the automated IG or if promyelocytes are not ed, a manual differential will be performed. [place] Gran Abs 0.09 (H) 0.00 - 0.04 x10(3)/[facility] LABORATORY Specimen Anatomical Collection Method Collection Time Receive d Time (Source) Location / / Volume Laterality Blood 08/19/2021 5:50 AM 6:07 EDT AM EDT Resulting Agency Comment Spec In Lab Lisandro Treviño MD HEMATOLOGY ORDERABLES Performing Organization Address City/State/ZIP Code Phon e Number [place] [id number] (ABNORMAL) Hemogram (08/19/2021 5:50 AM EDT) Analysis Performed At Patho logist Time Signature WBC 12.0 (H) 4.0 - 9.5 [facility] x10(3)/[facility] LABORATORY RBC 4.40 4.00 - [facility] 5.21 [facility] x10(6)/[facility] LABORATORY Hemoglobin 12.9 11.7 - [facility] 15.5 g/dL [facility] Hematocrit 40.0 35.7 - [facility] 45.8 % [facility] MCV 90.9 82.6 - [facility] 94.4 fL [facility] MCH 29.3 27.1 - [place] 32.0 pg [facility] MCHC 32.3 31.7 - [facility] 35.0 g/dL [facility] Platelets 419 (H) 145 - 357 [facility] x10(3)/[facility] LABORATORY RDWSD 42.9 37.0 - [place] 46.0 [facility] LABORATORY RDWCV 13.1 11.5 - [place] 14.1 % [facility] MPV 9.1 7.6 - 12.9 [place] [facility] LABORATORY nRBC % Auto 0.0 % [facility] nRBC Abs Auto 0.000 0.000 - [place] 0.000 [facility] x10(3)/[facility] LABORATORY Specimen Anatomical Collection Method Collection Time Receive d Time (Source) Location / / Volume Laterality Blood 08/19/2021 5:50 AM 2 6:07 EDT AM EDT Resulting Agency Comment Spec In Lab Lisandro Treviño MD HEMATOLOGY ORDERABLES Performing Organization Address City/[facility]/[place] [address] (ABNORMAL) Phosphorus (08/19/2021 5:50 AM EDT) P athologist Signature Phosphorus 5.2 (H) 2.5 - 4.5 [facility] [place] mg/dL [facility] Specimen Anatomical Collection Method Collection Time Receive d Time (Source) Location / / Volume Laterality Blood 08/19/2021 5:50 AM 2 6:07 EDT AM EDT Resulting Agency Comment Spec In Lab Loco White MD CHEMISTRY ORDERABLES Performing Organization Address City/[facility]/[place] [address] Magnesium (08/19/2021 5:50 AM EDT) P athologist Signature Magnesium 0.77 0.69 - 1.07 [facility] mmol/L [facility] Specimen Anatomical Collection Method Collection Time Receive d Time (Source) Location / / Volume Laterality Blood 08/19/2021 5:50 AM 2 6:07 EDT AM EDT Resulting Agency Comment Spec In Lab Loco White MD CHEMISTRY ORDERABLES Performing Organization Address City/[facility]/[place] [address] (ABNORMAL) Basic Metabolic Panel (non-fasting) (08/19/2021 5:50 AM EDT) athologist Signature Glucose Lvl 115 65 - 199 [facility] mg/dL [facility] Comment: Diabetes: >=200 mg/dL plus symp toms BUN 20 (H) 8 - 18 mg/dL [facility] Creatinine 0.78 0.70 - 1.20 mg/dL [facility] LABOR[facility]ORY Sodium 136 135 - 145 mmol/L [facility] Potassium 4.2 3.5 - 5.0 mmol/L [facility] Comment: Please note: ??Patients with WBC >100,00 0 may have falsely elevated Potassium levels. ??For accurate Potassium quantif ication in these patients send serum separator tube (gold top) for subsequent determinations. ??Contact the Clinical Chemistry Laboratory if there are any qu estions. Chloride 100 98 - 107 mmol/L [facility] CO2 22 22 - 31 mmol/L [facility] Anion Gap 14 5 - 15 mmol/L [facility] LABORATORY Calcium 10.1 8.5 - 10.5 mg/dL [facility] Estimated GFR 83 >=60 mL/min/1.73 m?? [facility] Comment: This patient? s estimated glomerular filtration rate (eGFR) is between 83 mL/min/1.73 m2 (patients with less muscl e mass) and 96 mL/min/1.73 m2 (patients with more muscle mass) as determined by the CKD-EPI equation. Assessment of eGFR is not appropriate when creatinine concentrations are rapidly changing. For clinical decisions where creatinine clearance will affect therapy, a 24-hour urine creatinine clearance may b e advised. Assignment of CKD stage 1 - [...] Organization Address City/State/[place] [address] (ABNORMAL) CRP, acute inflammation (08/19/2021 5:50 AM EDT) athologist Signature CRP 40.2 (H) <=4.9 mg/L [facility] Comment: result rechecked-KS Specimen Anatomical Collection Method Collection Time Receive d Time (Source) Location / / Volume Laterality Blood 08/19/2021 5:50 AM 2 6:07 EDT AM EDT Resulting Agency Comment Spec In Lab Loco White MD CHEMISTRY ORDERABLES Performing Organization Address City/[facility]/[place] [address] POCT Glucose (08/19/2021 4:39 AM EDT) athologist Signature POC Glucose 119 65 - 199 [facility] mg/dL [facility] Comment: Supplemental ranges: <140 mg/dL before meals <180 mg/dL all other times of the day Specimen Anatomical Collection Method Collection Time Receive d Time (Source) Location / / Volume Laterality Blood 08/19/2021 4:39 AM 2 4:39 EDT AM EDT Loco White MD POINT OF CARE TEST ORDERABLE S Performing Organization Address City/[facility]/[place] [address] POCT Glucose (08/19/2021 12:03 AM EDT) athologist Signature POC Glucose 122 65 - 199 [facility] mg/dL [facility] Comment: Supplemental ranges: <140 mg/dL before meals <180 mg/dL all other times of the day Specimen Anatomical Collection Method Collection Time Receive d Time (Source) Location / / Volume Laterality Blood 08/19/2021 12:03 08/19/2021 AM EDT 12:03 AM EDT Loco White MD POINT OF CARE TEST ORDERABLE S Performing Organization Address City/State/ZIP [place] [address] POCT Glucose (08/18/2021 7:54 PM EDT) athologist Signature POC Glucose 119 65 - 199 [place] mg/dL [facility] Comment: Supplemental ranges: <140 mg/dL before meals <180 mg/dL all other times of the day Specimen Anatomical Collection Method Collection Time Receive d Time (Source) Location / / Volume Laterality Blood 08/18/2021 7:54 PM 2 7:54 EDT PM EDT Loco White MD POINT OF CARE TEST ORDERABLE S Performing Organization Address City/State/ZIP Code Phon e Number [place] [phone] [facility] [address] Drive POCT Glucose (08/18/2021 5:22 PM EDT) athologist Signature POC Glucose 115 65 - 199 [place] mg/dL [facility] Comment: Supplemental ranges: <140 mg/dL before meals <180 mg/dL all other times of the day Specimen Anatomical Collection Method Collection Time Receive d Time (Source) Location / / Volume Laterality Blood 08/18/2021 5:22 PM 2 5:22 EDT PM EDT Loco White MD POINT OF CARE TEST ORDERABLE S Performing Organization Address City/State/ZIP [place] [address] POCT Glucose (08/18/2021 12:05 PM EDT) athologist Signature POC Glucose 103 65 - 199 [place] mg/dL [facility] Comment: Supplemental ranges: <140 mg/dL before meals <180 mg/dL all other times of the day Specimen Anatomical Collection Method Collection Time Receive d Time (Source) Location / / Volume Laterality Blood 08/18/2021 12:05 08/18/2021 PM EDT 12:05 PM EDT Loco White MD POINT OF CARE TEST ORDERABLE S Performing Organization Address City/State/[place] [address] (ABNORMAL) Vancomycin, trough (08/18/2021 8:45 AM EDT) athologist Signature Vanc Trough 25.4 mg/L [facility] (Critical) [facility] Comment: called by ARR; read back by (Pablo smith); 08/18/21 8051 Therapeutic range for complicated infect ions such [...] (Source) Location / / Volume Laterality Blood 08/18/2021 8:45 AM 2 8:55 EDT AM EDT Resulting Agency Comment Spec In Lab Loco White MD CHEMISTRY ORDERABLES Performing Organization Address City/State/[place] [address] POCT Glucose (08/18/2021 8:28 AM EDT) athologist Signature POC Glucose 103 65 - 199 [facility] mg[facility]dL [facility] Comment: Supplemental ranges: <140 mg/dL before meals <180 mg/dL all other times of the day Specimen Anatomical Collection Method Collection Time Receive d Time (Source) Location / / Volume Laterality Blood 08/18/2021 8:28 AM 2 8:28 EDT AM EDT Loco White MD POINT OF CARE TEST ORDERABLE S Performing Organization Address City/State/[place] [address] POCT Glucose (08/18/2021 4:20 AM EDT) athologist Signature POC Glucose 109 65 - 199 [facility] mg/dL [facility] Comment: Supplemental ranges: <140 mg/dL before meals <180 mg/dL all other times of the day Specimen Anatomical Collection Method Collection Time Receive d Time (Source) Location / / Volume Laterality Blood 08/18/2021 4:20 AM 2 4:20 EDT AM EDT Loco White MD POINT OF CARE TEST ORDERABLE S Performing Organization Address City/State/[place] [address] POCT Glucose (08/17/2021 11:32 PM EDT) athologist Signature POC Glucose 100 65 - 199 [place] mg/dL [facility] Comment: Supplemental ranges: <140 mg/dL before meals <180 mg/dL all other times of the day Specimen Anatomical Collection Method Collection Time Receive d Time (Source) Location / / Volume Laterality Blood 08/17/2021 11:32 08/17/2021 PM EDT 11:32 PM EDT Loco White MD POINT OF CARE TEST ORDERABLE S Performing Organization Address City/State/ZIP Code Phon e Number [place] [phone] [facility] [address] POCT Glucose (08/17/2021 8:02 PM EDT) athologist Signature POC Glucose 118 65 - 199 [place] mg/dL [facility] Comment: Supplemental ranges: <140 mg/dL before meals <180 mg/dL all other times of the day Specimen Anatomical Collection Method Collection Time Receive d Time (Source) Location / / Volume Laterality Blood 08/17/2021 8:02 PM 8:02 EDT PM EDT Loco White MD POINT OF CARE TEST ORDERABLE S Performing Organization Address City/State/[place] [address] POCT Glucose (08/17/2021 4:52 PM EDT) athologist Signature POC Glucose 87 65 - 199 [place] mg/dL [facility] Comment: Supplemental ranges: <140 mg/dL before meals <180 mg/dL all other times of the day Specimen Anatomical Collection Method Collection Time Receive d Time (Source) Location / / Volume Laterality Blood 08/17/2021 4:52 PM 4:52 EDT PM EDT Loco White MD POINT OF CARE TEST ORDERABLE S Performing Organization Address City/State/[place] [address] POCT Glucose (08/17/2021 12:26 PM EDT) athologist Signature POC Glucose 103 65 - 199 [place] mg/dL [facility] Comment: Supplemental ranges: <140 mg/dL before meals <180 mg/dL all other times of the day Specimen Anatomical Collection Method Collection Time Receive d Time (Source) Location / / Volume Laterality Blood 08/17/2021 12:26 08/17/2021 PM EDT 12:26 PM EDT Loco White MD POINT OF CARE TEST ORDERABLE S Performing Organization Address City/State/[place] [address] POCT Glucose (08/17/2021 11:20 AM EDT) athologist Signature POC Glucose 112 65 - 199 [place] mg/dL [facility] Comment: Supplemental ranges: <140 mg/dL before meals <180 mg/dL all other times of the day Specimen Anatomical Collection Method Collection Time Receive d Time (Source) Location / / Volume Laterality Blood 08/17/2021 11:20 08/17/2021 AM EDT 11:20 AM EDT Loco White MD POINT OF CARE TEST ORDERABLE S Performing Organization Address City/State/[place] [address] POCT Glucose (08/17/2021 7:53 AM EDT) athologist Signature POC Glucose 111 65 - 199 [place] mg/dL [facility] Comment: Supplemental ranges: <140 mg/dL before meals <180 mg/dL all other times of the day Specimen Anatomical Collection Method Collection Time Receive d Time (Source) Location / / Volume Laterality Blood 08/17/2021 7:53 AM 2 7:53 EDT AM EDT Loco White MD POINT OF CARE TEST ORDERABLE S Performing Organization Address City/State/[place] [address] POCT Glucose (08/17/2021 4:12 AM EDT) athologist Signature POC Glucose 121 65 - 199 [place] mg/dL [facility] Comment: Supplemental ranges: <140 mg/dL before meals <180 mg/dL all other times of the day Specimen Anatomical Collection Method Collection Time Receive d Time (Source) Location / / Volume Laterality Blood 08/17/2021 4:12 AM 2 4:12 EDT AM EDT Loco White MD POINT OF CARE TEST ORDERABLE S Performing Organization Address City/State/[place] [address] POCT Glucose (08/16/2021 11:06 PM EDT) athologist Signature POC Glucose 118 65 - 199 [place] mg/dL [facility] Comment: Supplemental ranges: <140 mg/dL before meals <180 mg/dL all other times of the day Specimen Anatomical Collection Method Collection Time Receive d Time (Source) Location / / Volume Laterality Blood 08/16/2021 11:06 08/16/2021 PM EDT 11:06 PM EDT Loco White MD POINT OF CARE TEST ORDERABLE S Performing Organization Address City/State/[place] [address] POCT Glucose (08/16/2021 8:27 PM EDT) athologist Signature POC Glucose 116 65 - 199 [place] mg/dL [facility] Comment: Supplemental ranges: <140 mg/dL before meals <180 mg/dL all other times of the day Specimen Anatomical Collection Method Collection Time Receive d Time (Source) Location / / Volume Laterality Blood 08/16/2021 8:27 PM 2 8:27 EDT PM EDT Loco White MD POINT OF CARE TEST ORDERABLE S Performing Organization Address City/[facility]/[place] [address] (ABNORMAL) CRP, acute inflammation (08/16/2021 5:44 PM EDT) athologist Signature CRP 54.8 (H) <=4.9 mg/L [facility]OR[facility]ORY Specimen Anatomical Collection Method Collection Time Receive d Time (Source) Location / / Volume Laterality Blood 08/16/2021 5:44 PM 2 5:51 EDT PM EDT Resulting Agency Comment Spec In Lab Loco White MD CHEMISTRY ORDERABLES Performing Organization Address City/[facility]/[place] [address] POCT Glucose (08/16/2021 4:38 PM EDT) athologist Signature POC Glucose 135 65 - 199 [facility] mg/dL [facility] Comment: Supplemental ranges: <140 mg/dL before meals <180 mg/dL all other times of the day Specimen Anatomical Collection Method Collection Time Receive d Time (Source) Location / / Volume Laterality Blood 08/16/2021 4:38 PM 2 4:38 EDT PM EDT Loco White MD POINT OF CARE TEST ORDERABLE S Performing Organization Address City/[facility]/[place] [address] POCT Glucose (08/16/2021 12:22 PM EDT) athologist Signature POC Glucose 105 65 - 199 [facility] mg/dL [facility] Comment: Supplemental ranges: <140 mg/dL before meals <180 mg/dL all other times of the day Specimen Anatomical Collection Method Collection Time Receive d Time (Source) Location / / Volume Laterality Blood 08/16/2021 12:22 08/16/2021 PM EDT 12:22 PM EDT Loco White MD POINT OF CARE TEST ORDERABLE S Performing Organization Address City/State/[place] [address] POCT Glucose (08/16/2021 7:38 AM EDT) athologist Signature POC Glucose 113 65 - 199 [facility] mg/dL [facility] Comment: Supplemental ranges: <140 mg/dL before meals <180 mg/dL all other times of the day Specimen Anatomical Collection Method Collection Time Receive d Time (Source) Location / / Volume Laterality Blood 08/16/2021 7:38 AM 2 7:38 EDT AM EDT Loco White MD POINT OF CARE TEST ORDERABLE S Performing Organization Address City/State/[place] [address] POCT Glucose (08/16/2021 4:26 AM EDT) athologist Signature POC Glucose 126 65 - 199 [facility] mg/dL [facility] Comment: Supplemental ranges: <140 mg/dL before meals <180 mg/dL all other times of the day Specimen Anatomical Collection Method Collection Time Receive d Time (Source) Location / / Volume Laterality Blood 08/16/2021 4:26 AM 2 4:26 EDT AM EDT Loco White MD POINT OF CARE TEST ORDERABLE S Performing Organization Address City/State/[place] [address] (ABNORMAL) Vancomycin, trough (08/16/2021 4:07 AM EDT) athologist Signature Vanc Trough 20.1 mg/L [facility] (Critical) [facility] Comment: Called by: [place], Read back by: Kandi okeefe, Date/Time:08/16/21 05:00. Therapeutic range for complicated infect ions such [...] (Source) Location / / Volume Laterality Blood 08/16/2021 4:07 AM 2 4:24 EDT AM EDT Resulting Agency Comment Spec In Lab Loco White MD CHEMISTRY ORDERABLES Performing Organization Address City/[facility]/ZIP Code Phon e Number [address] POCT Glucose (08/16/2021 12:24 AM EDT) athologist Signature POC Glucose 131 65 - 199 [facility] mg/dL [facility] Comment: Supplemental ranges: <140 mg/dL before meals <180 mg/dL all other times of the day Specimen Anatomical Collection Method Collection Time Receive d Time (Source) Location / / Volume Laterality Blood 08/16/2021 12:24 08/16/2021 AM EDT 12:24 AM EDT Loco White MD POINT OF CARE TEST ORDERABLE S Performing Organization Address City/[facility]/ZIP Code Phon e Number [address] POCT Glucose (08/15/2021 7:15 PM EDT) athologist Signature POC Glucose 112 65 - 199 [facility] mg/dL [facility] Comment: Supplemental ranges: <140 mg/dL before meals <180 mg/dL all other times of the day Specimen Anatomical Collection Method Collection Time Receive d Time (Source) Location / / Volume Laterality Blood 08/15/2021 7:15 PM 2 7:15 EDT PM EDT Loco White MD POINT OF CARE TEST ORDERABLE S Performing Organization Address City/[facility]/ZIP Code Phon e Number [address] POCT Glucose (08/15/2021 4:58 PM EDT) athologist Signature POC Glucose 116 65 - 199 [place]AVE[place] mg/dL [facility] LABORATORY Comment: Supplemental ranges: <140 mg/dL before meals <180 mg/dL all other times of the day Specimen Anatomical Collection Method Collection Time Receive d Time (Source) Location / / Volume Laterality Blood 08/15/2021 4:58 PM 4:58 EDT PM EDT Loco White MD POINT OF CARE TEST ORDERABLE S Performing Organization Address City/State/ZIP [place] [address] COVID-19 PCR (08/15/2021 3:31 PM EDT) Patholo gist Method Time Signature SARS-CoV-2 Not Detected Not Detected [facility] RNA [facility] LABORATORY Comment: This result [...] diagnosis of COVID-19 is performed using the [employer] VERONICA S-CoV-2 Assay as authorized by the FDA Emergency Use Authorization (EUA). This EUA assay is intended for In-vitro Diagnostic (IVD) use with respiratory sp ecimens such as nasopharyngeal swabs collected from individuals during the ac bertha phase of infection. This assay is performed based on the instructions for use provided by [employer] and additional guidance provided by CDC and FDA. Testing is performed in the Clinical Genomics and Advanced Technolog y Laboratory within the Department of Pathology and Laboratory Medicine at [facility], certified under the Clinical Laboratory Improvement [...] is infected. As required or requested by [facility] health a uthorities, positive specimens may be [...] clinical management guidance information are available at [facility] CDC Coronavirus Disease 2019 (COVID-19) webpage under Information fo r Healthcare Professionals (https://www.cdc.gov/coronavirus/2019-nc ov/hcp/index.html) Additional information about this and ot her EUA tests can be found in provider and patient fact sheets at the following FDA website: https://www.fda.gov/medical-devices/emewoquduaf-dggyrav-1575-wcdsc-91-oswemlazs- csd-ibjjwswquspplb-zaaxcop-devices/kzvtk-wqctscjrnpn-lowc SARS-Cov-2 RNA Source [employer] Sw[employer] [facility] LABORATORY Specimen (Source) Anatomical Collection Method Collection Time Re ceived Time Location / / Volume Laterality Nasopharyngeal Swab 08/15/2021 3:31 08/15 PM EDT 9:54 PM EDT Comment: Symptoms->Surveillance Resulting Agency Comment Spec In Lab Loco White MD MICROBIOLOGY - GENERAL ORDER ARLEY Performing Organization Address City/State/ZIP [place] [address] POCT Glucose (08/15/2021 12:42 PM EDT) athologist Signature POC Glucose 149 65 - 199 [facility] mg/dL [facility] Comment: Supplemental ranges: <140 mg/dL before meals <180 mg/dL all other times of the day Specimen Anatomical Collection Method Collection Time Receive d Time (Source) Location / / Volume Laterality Blood 08/15/2021 12:42 08/15/2021 PM EDT 12:42 PM EDT Loco White MD POINT OF CARE TEST ORDERABLE S Performing Organization Address City/State/ZIP Code Phon e Number [address] POCT Glucose (08/15/2021 6:21 AM EDT) athologist Signature POC Glucose 105 65 - 199 [place]NDEZNAVEEN mg/dL [facility]OR[facility] Comment: Supplemental ranges: <140 mg/dL before meals <180 mg/dL all other times of the day Specimen Anatomical Collection Method Collection Time Receive d Time (Source) Location / / Volume Laterality Blood 08/15/2021 6:21 AM 6:21 EDT AM EDT Loco White MD POINT OF CARE TEST ORDERABLE S Performing Organization Address City/State/ZIP Code Phon e Number [address] Phosphorus (08/15/2021 5:40 AM EDT) athologist Signature Phosphorus 3.0 2.5 - 4.5 [place] HER[place]NDE[place]VE[place] mg/dL [facility]ORATORY Specimen Anatomical Collection Method Collection Time Receive d Time (Source) Location / / Volume Laterality Blood Venous Draw / 08/15/2021 5:40 AM 08/16/19 5:46 Unknown EDT AM EDT Resulting Agency Comment Spec In Lab Lisandro Treviño MD CHEMISTRY ORDERABLES Performing Organization Address City/State/ZIP Code Phon e Number [address] Magnesium (08/15/2021 5:40 AM EDT) athologist Signature Magnesium 0.81 0.69 - 1.07 [place] mmol/L [facility]OR[facility]ORY Specimen Anatomical Collection Method Collection Time Receive d Time (Source) Location / / Volume Laterality Blood Venous Draw / 08/15/2021 5:40 AM 08/16/19 5:46 Unknown EDT AM EDT Resulting Agency Comment Spec In Lab Lisandro Treviño MD CHEMISTRY ORDERABLES Performing Organization Address City/State/ZIP Code [place] [address] (ABNORMAL) Basic Metabolic Panel (non-fasting) (08/15/2021 5:40 AM EDT) athologist Signature Glucose Lvl 106 65 - 199 [facility] mg/dL [facility] Comment: Diabetes: >=200 mg/dL plus symp toms BUN 17 8 - 18 mg/dL [facility] Creatinine 0.44 (L) 0.70 - 1.20 mg/dL [facility] LABOR[facility]ORY Sodium 137 135 - 145 mmol/L [facility] Potassium 3.5 3.5 - 5.0 mmol/L [facility] Comment: Please note: ??Patients with WBC >100,00 0 may have falsely elevated Potassium levels. ??For accurate Potassium quantif ication in these patients send serum separator tube (gold top) for subsequent determinations. ??Contact the Clinical Chemistry Laboratory if there are any qu estions. Chloride 101 98 - 107 mmol/L [facility] CO2 28 22 - 31 mmol/L [facility] Anion Gap 8 5 - 15 mmol/L [facility] LABORATORY Calcium 8.6 8.5 - 10.5 mg/dL [facility]OR[facility]ORY Estimated GFR 110 >=60 mL/min/1.73 m?? [facility] Comment: This patient? s estimated glomerular filtration rate (eGFR) is between 110 mL/min/1.73 m2 (patients with less muscl e mass) and 128 mL/min/1.73 m2 (patients with more muscle mass) as dete rmined by the CKD-EPI equation. Assessment of eGFR is not appropriate wh en creatinine concentrations are rapidly changing. For clinical decisions where creatinine clearance will affect therapy, a 24-hour urine creatinine armando hernandez may be advised. Assignment of CKD stage 1 - 5 for patien ts with an eGFR near the transition point between stages may be based on cli nical assessment of muscle mass and symptoms in addition to eGFR. Specimen Anatomical Collection Method Collection Time Receive d Time (Source) Location / / Volume Laterality Blood 08/15/2021 5:40 AM 2 5:45 EDT AM EDT Resulting Agency Comment Spec In Lab Loco White MD CHEMISTRY ORDERABLES Performing Organization Address City/State/ZIP Code Phon e Number [address] POCT Glucose (08/14/2021 11:26 PM EDT) athologist Signature POC Glucose 112 65 - 199 [place] mg/dL [facility] Comment: Supplemental ranges: <140 mg/dL before meals <180 mg/dL all other times of the day Specimen Anatomical Collection Method Collection Time Receive d Time (Source) Location / / Volume Laterality Blood 08/14/2021 11:26 08/14/2021 PM EDT 11:26 PM EDT Loco White MD POINT OF CARE TEST ORDERABLE S Performing Organization Address City/State/ZIP Code Phon e Number [address] POCT Glucose (08/14/2021 7:39 PM EDT) athologist Signature POC Glucose 119 65 - 199 [place] mg/dL [facility] Comment: Supplemental ranges: <140 mg/dL before meals <180 mg/dL all other times of the day Specimen Anatomical Collection Method Collection Time Receive d Time (Source) Location / / Volume Laterality Blood 08/14/2021 7:39 PM 2 7:39 EDT PM EDT Loco White MD POINT OF CARE TEST ORDERABLE S Performing Organization Address City/[facility]/ZIP Code Phon e Number [address] POCT Glucose (08/14/2021 4:34 PM EDT) athologist Signature POC Glucose 118 65 - 199 [place]AVE[place] mg/dL [facility] Comment: Supplemental ranges: <140 mg/dL before meals <180 mg/dL all other times of the day Specimen Anatomical Collection Method Collection Time Receive d Time (Source) Location / / Volume Laterality Blood 08/14/2021 4:34 PM 4:34 EDT PM EDT Loco White MD POINT OF CARE TEST ORDERABLE S Performing Organization Address City/[facility]/[place] [address] Vancomycin, trough (08/14/2021 12:01 PM EDT) P athologist Signature Vanc Trough 10.5 mg/L [facility]OR[facility] Comment: Therapeutic range for complicated infect [...] (Source) Location / / Volume Laterality Blood 08/14/2021 12:01 08/14/2021 PM EDT 12:25 PM EDT Resulting Agency Comment Spec In Lab Loco White MD CHEMISTRY ORDERABLES Performing Organization Address City/[facility]/ZIP Code Phon e Number [address] POCT Glucose (08/14/2021 11:32 AM EDT) P athologist Signature POC Glucose 107 65 - 199 [facility] Comment: Supplemental ranges: <140 mg/dL before meals <180 mg/dL all other times of the day Specimen Anatomical Collection Method Collection Time Receive d Time (Source) Location / / Volume Laterality Blood 08/14/2021 11:32 08/14/2021 AM EDT 11:32 AM EDT Loco White MD POINT OF CARE TEST ORDERABLE S Performing Organization Address City/[facility]/ZIP Code [place] [address] [facility] [address] POCT Glucose (08/14/2021 8:03 AM EDT) P athologist Signature POC Glucose 139 65 - 199 [place]ON[place]OCK mg/dL [facility]OR[facility] Comment: Supplemental ranges: <140 mg/dL before meals <180 mg/dL all other times of the day Specimen Anatomical Collection Method Collection Time Receive d Time (Source) Location / / Volume Laterality Blood 08/14/2021 8:03 AM 2 8:03 EDT AM EDT Loco White MD POINT OF CARE TEST ORDERABLE S Performing Organization Address City/State/ZIP Code Phon e Number [address] EKG 12 Lead (08/14/2021 4:30 AM EDT) Component Value Ref Range Test Analysis Performed Pathologis t Method Time At Signature Ventricular rate 46 BPM MUSE SYSTEM Atrial Rate 46 BPM MUSE SYSTEM P-R Interval 114 ms MUSE SYSTEM QRS Duration 80 ms MUSE SYSTEM Q-T Interval 518 ms MUSE SYSTEM QTC Calculated 453 ms MUSE SYSTEM (Bezet) Calculated P [place] 49 degrees MUSE SYSTEM Calculated R [place] 28 degrees MUSE SYSTEM Calculated T [place] 72 degrees MUSE SYSTEM INTERPRETATION Marked sinus bradycardia MUSE SYSTEM Abnormal ECG When compared with ECG of 18-SEP-2019 11:29, Vent. rate has decreased BY ??24 BPM I personally reviewed the tracing and edited the fellows int erpretation Confirmed by fellow Senser, Cuauhtemoc Liu ([id number]) on 08/14/2021 2:2 6:50 PM Confirmed by MD Acosta, Olya ([id number]) on 08/14/2021 3:04:56 P M Specimen Anatomical Collection Method Collection Time Receive d Time (Source) Location / / Volume Laterality 08/14/2021 4:30 AM 2 3:04 EDT PM EDT Loco White MD ECG ORDERABLES Performing Organization Address City/State/ZIP Code Phon e Number MUSE SYSTEM (ABNORMAL) Basic Metabolic Panel (non-fasting) (08/14/2021 3:47 AM EDT) P athologist Signature Glucose Lvl 155 65 - 199 [place] mg/dL [facility] Comment: Diabetes: >=200 mg/dL plus symp toms BUN 25 (H) 8 - 18 mg/dL [facility]OR[facility] Creatinine 0.66 (L) 0.70 - 1.20 mg/dL [facility]ORY Sodium 139 135 - 145 mmol/L [facility] Potassium 3.1 (L) 3.5 - 5.0 mmol/L [facility] Comment: Please note: ??Patients with WBC >100,00 0 may have falsely elevated Potassium levels. ??For accurate Potassium quantif ication in these patients send serum separator tube (gold top) for subsequent determinations. ??Contact the Clinical Chemistry Laboratory if there are any qu estions. Chloride 102 98 - 107 mmol/L [facility] CO2 Not Perf [facility] Comment: Add-on request. Sample too old to perform test. Anion Gap Unable to Calculate 5 - 15 mmol/L [facility] Calcium 8.6 8.5 - 10.5 mg/dL [facility] Estimated GFR 97 >=60 mL/min/1.73 m?? [facility] Comment: This patient? s estimated glomerular filtration rate (eGFR) is between 97 mL/min/1.73 m2 (patients with less muscl e mass) and 112 mL/min/1.73 m2 (patients with more muscle mass) as dete rmined by the CKD-EPI equation. Assessment of eGFR is not appropriate wh en creatinine concentrations are rapidly changing. For clinical decisions where creatinine clearance will affect therapy, a 24-hour urine creatinine armando hernandez may be advised. Assignment of CKD stage 1 - 5 for patien ts with an eGFR near the transition point between stages may be based on cli nical assessment of muscle mass and symptoms in addition to eGFR. Specimen Anatomical Collection Method Collection Time Receive d Time (Source) Location / / Volume Laterality Blood Venous Draw / 08/14/2021 3:47 AM 08/15/19 4:18 Unknown EDT AM EDT Resulting Agency Comment Spec In Lab Rosmery Moreno MD CHEMISTRY ORDERABLES Performing Organization Address City/State/[place] [address] Phosphorus (08/14/2021 3:47 AM EDT) athologist Signature Phosphorus 2.6 2.5 - 4.5 [place]VE[place] mg/dL [facility]OR[facility]ORY Specimen Anatomical Collection Method Collection Time Receive d Time (Source) Location / / Volume Laterality Blood 08/14/2021 3:47 AM 2 4:13 EDT AM EDT Resulting Agency Comment Spec In Lab Joshua Che MD CHEMISTRY ORDERABLES Performing Organization Address City/State/ZIP Code Phon e Number [address] Magnesium (08/14/2021 3:47 AM EDT) athologist Signature Magnesium 0.79 0.69 - 1.07 [facility]/L [facility] Specimen Anatomical Collection Method Collection Time Receive d Time (Source) Location / / Volume Laterality Blood 08/14/2021 3:47 AM 2 4:13 EDT AM EDT Resulting Agency Comment Spec In Lab Joshua Che MD CHEMISTRY ORDERABLES Performing Organization Address City/State/[place] [address] POCT Glucose (08/14/2021 2:58 AM EDT) athologist Signature POC Glucose 159 65 - 199 [place] mg/dL [facility] Comment: Supplemental ranges: <140 mg/dL before meals <180 mg/dL all other times of the day Specimen Anatomical Collection Method Collection Time Receive d Time (Source) Location / / Volume Laterality Blood 08/14/2021 2:58 AM 2 2:58 EDT AM EDT Loco White MD POINT OF CARE TEST ORDERABLE S Performing Organization Address City/State/[place] [address] POCT Glucose (08/13/2021 9:40 PM EDT) athologist Signature POC Glucose 142 65 - 199 [place] HER[place]NDEZ[place]VEEN mg/dL [facility] Comment: Supplemental ranges: <140 mg/dL before meals <180 mg/dL all other times of the day Specimen Anatomical Collection Method Collection Time Receive d Time (Source) Location / / Volume Laterality Blood 08/13/2021 9:40 PM 2 9:40 EDT PM EDT Loco White MD POINT OF CARE TEST ORDERABLE S Performing Organization Address City/State/[place] [address] POCT Glucose (08/13/2021 4:44 PM EDT) athologist Signature POC Glucose 136 65 - 199 [place] NAVE[place] mg/dL [facility] Comment: Supplemental ranges: <140 mg/dL before meals <180 mg/dL all other times of the day Specimen Anatomical Collection Method Collection Time Receive d Time (Source) Location / / Volume Laterality Blood 08/13/2021 4:44 PM 2 4:44 EDT PM EDT Loco White MD POINT OF CARE TEST ORDERABLE S Performing Organization Address City/State/[place] [address] (ABNORMAL) POCT Glucose (08/13/2021 1:54 PM EDT) athologist Signature POC Glucose 223 (H) 65 - 199 [place]AVE[place] mg/dL [facility] Comment: Supplemental ranges: <140 mg/dL before meals <180 mg/dL all other times of the day Specimen Anatomical Collection Method Collection Time Receive d Time (Source) Location / / Volume Laterality Blood 08/13/2021 1:54 PM 2 1:54 EDT PM EDT Loco White MD POINT OF CARE TEST ORDERABLE S Performing Organization Address City/State/[place] [address] (ABNORMAL) POCT Glucose (08/13/2021 11:47 AM EDT) athologist Signature POC Glucose 246 (H) 65 - 199 [facility] mg/dL [facility] Comment: Supplemental ranges: <140 mg/dL before meals <180 mg/dL all other times of the day Specimen Anatomical Collection Method Collection Time Receive d Time (Source) Location / / Volume Laterality Blood 08/13/2021 11:47 08/13/2021 AM EDT 11:47 AM EDT Joshua Che MD POINT OF CARE TEST ORDERABLE S Performing Organization Address City/State/ZIP [place] [address] (ABNORMAL) Differential, Automated (08/13/2021 5:54 AM EDT) Patholo gist Method Time Signature Neutrophils % 82.7 % [facility] LABORATORY Neutr Abs (ANC) 10.00 (H) 1.70 - [facility] 6.10 [facility] x10(3)/[facility] LABORATORY Lymphocytes % 12.3 % [facility] LABORATORY Lymphocytes Abs 1.5 0.9 - 3.2 [facility] x10(3)/[facility] LABORATORY Monocytes % 4.1 % [facility] LABORATORY Monocyte Abs 0.5 0.3 - 0.9 [facility] x10(3)/[facility] LABORATORY Eosinophils % 0.2 % [facility] LABORATORY Eosinophils Abs 0.0 0.0 - 0.4 [facility] x10(3)/[facility] LABORATORY Basophils % 0.2 % [facility] LABORATORY Basophils Abs 0.0 0.0 - 0.1 [facility] x10(3)/[facility] LABORATORY Immature Gran % 0.50 % [facility] LABOR[facility] Comment: Immature granulocytes(IG's)percentage an d absolute count will include metamyelocytes, myelocytes, and promyelo cytes. Blood smears from CBCs yielding IG's will be scanned manually for concor dance. If this scan disagrees with the automated IG or if promyelocytes are not ed, a manual differential will be performed. Shantell Gran Abs 0.06 (H) 0.00 - 0.04 x10(3)/[facility] LABORATORY Specimen Anatomical Collection Method Collection Time Receive d Time (Source) Location / / Volume Laterality Blood 08/13/2021 5:54 AM 2 6:05 EDT AM EDT Resulting Agency Comment Spec In Lab Mavis Tamayo MD HEMATOLOGY ORDERABLES Performing Organization Address City/[facility]/ZIP [facility] [place] [address] (ABNORMAL) Hemogram (08/13/2021 5:54 AM EDT) Analysis Performed At Patho logist Time Signature WBC 12.1 (H) 4.0 - 9.5 [facility] x10(3)/[facility] LABORATORY RBC 3.92 (L) 4.00 [facility] 5[facility] x10(6)/[facility] LABORATORY Hemoglobin 11.5 (L) 11.7 - [facility] 15.5 g/dL [facility] Hematocrit 36.2 35.7 - [facility] 45.8 % [facility] MCV 92.3 82.6 - [facility] 94.4 [facility] LABORATORY MCH 29.3 27.1 - [facility] 32.0 pg [facility]ORATORY MCHC 31.8 31.7 - [facility] 35.0 g/dL [facility] Platelets 374 (H) 145 - 357 [facility] x10(3)/[facility] LABORATORY RDWSD 42.4 37.0 - [facility] 46.0 [facility] LABORATORY RDWCV 12.5 11.5 - [facility] NAVEEN 14.1 % [facility] LABORATORY MPV 9.2 7.6 - 12.9 [facility] LABORATORY nRBC % Auto 0.0 % [facility] LABORATORY nRBC Abs Auto 0.000 0.000 - [facility] 0.000 [facility] x10(3)/[facility] LABORATORY Specimen Anatomical Collection Method Collection Time Receive d Time (Source) Location / / Volume Laterality Blood 08/13/2021 5:54 AM 2 6:05 EDT AM EDT Resulting Agency Comment Spec In Lab Mavis Tamayo MD HEMATOLOGY ORDERABLES Performing Organization Address City/State/ZIP Code [place] [address] (ABNORMAL) Hemoglobin A1c (08/13/2021 5:54 AM EDT) Analysis [facility] Time Signature Hemoglobin A1C 7.1 (H) 4.3 - 5.6 [facility] LABORATORY Comment: Reference Range: 4.3 - 5.6% [...] Mellitus, Diabetes Care 2013; 36: Suppl. 1, S67-08 Est Avg Gluc 156 mg/dL [facility] LABORATORY Comment: eAG equivalents for HbA1c percentages: HbA1c(%) ?eAG(mg/dL) 6.0 ?126 6.5 ?140 7.0 ?154 7.5 ?169 8.0 ?183 8.5 ?197 9.0 ?212 9.5 ?226 10.0 ? 240 Limitations: The eAG calculation has not been validated on women, individuals below 18 years old and above 70 years old, and individuals with hemoglobinopathies. Additional resources are available on [facility] ADA website. Adrian DUMONT, Rufus J, Jaylene R, et al. ??Tr anslating the A1C assay into estimated average glucose values. ??Diabetes Care 2008:31(8):7990-6363. Specimen Anatomical Collection Method Collection Time Receive d Time (Source) Location / / Volume Laterality Blood 08/13/2021 5:54 AM 2 6:05 EDT AM EDT Resulting Agency Comment Spec In Lab Joshua Che MD CHEMISTRY ORDERABLES Performing Organization Address City/[facility]/ZIP Code Phon e Number [address] Phosphorus (08/13/2021 5:54 AM EDT) athologist Signature Phosphorus 3.1 2.5 - 4.5 [facility] mg/dL [facility] Specimen Anatomical Collection Method Collection Time Receive d Time (Source) Location / / Volume Laterality Blood 08/13/2021 5:54 AM 2 6:05 EDT AM EDT Resulting Agency Comment Spec In Lab Joshua Che MD CHEMISTRY ORDERABLES Performing Organization Address City/[facility]/[place] [address] Magnesium (08/13/2021 5:54 AM EDT) athologist Signature Magnesium 0.80 0.69 - 1.07 [facility] mmol/L [facility] LABORATORY Specimen Anatomical Collection Method Collection Time Receive d Time (Source) Location / / Volume Laterality Blood 08/13/2021 5:54 AM 2 6:05 EDT AM EDT Resulting Agency Comment Spec In Lab Joshua Che MD CHEMISTRY ORDERABLES Performing Organization Address City/[facility]/[place] [address] (ABNORMAL) Basic Metabolic Panel (non-fasting) (08/13/2021 5:54 AM EDT) athologist Signature Glucose Lvl 196 65 - 199 [facility] mg/dL [facility] Comment: Diabetes: >=200 mg/dL plus symp toms BUN 16 8 - 18 mg/dL [facility] Creatinine 0.59 (L) 0.70 - 1.20 mg/dL [facility] LABORATORY Sodium 136 135 - 145 mmol/L [facility] LABORATORY Potassium 3.5 3.5 - 5.0 mmol/L [facility]ORAT[facility] Comment: Please note: ??Patients with WBC >100,00 0 may have falsely elevated Potassium levels. ??For accurate Potassium quantif ication in these patients send serum separator tube (gold top) for subsequent determinations. ??Contact the Clinical Chemistry Laboratory if there are any qu estions. Chloride 99 98 - 107 mmol/L [facility] CO2 26 22 - 31 mmol/L [facility] Anion Gap 11 5 - 15 mmol/L [facility] Calcium 8.7 8.5 - 10.5 mg/dL [facility] Estimated GFR 100 >=60 mL/min/1.73 m?? [facility] Comment: This patient? s estimated glomerular filtration rate (eGFR) is between 100 mL/min/1.73 m2 (patients with less muscl e mass) and 116 mL/min/1.73 m2 (patients with more muscle mass) [...] Organization Address City/State/ZIP [place] [address] (ABNORMAL) Anaerobic Culture (08/12/2021 7:49 PM EDT) [facility] Method Time Signature Anaerobic Moderate OLGA Culture Aishwaryaia NAVEEN magna (A) [facility] Organism Fineelma loredoa (A) [facility] Specimen [...] Organization Address City/State/ZIP [place] [address] (ABNORMAL) Tissue culture (08/12/2021 7:49 PM EDT) Component Value Ref Test [facility] Method Time Signature Tissue Moderate [facility] Culture Coagulase [facility] species (A) LABORATORY Gram Stain Moderate Neutrophils seen [facility] Moderate Gram Positive Cocci seen RUTH Results called to and read back by maritza ??08/12/21 21:42:05 [facility] () [facility] Organism Coagulase OLGA negative RUTH Staphylococcus [facility] species () [facility] Organism Gram Positive [facility] Cocci (A) [facility] Specimen [...] Comment: Gentamicin is not a ppropriate for [place]-therapy. Coagulase negative staphylococcus Levofloxacin MICROSCAN METH OD [...] - GENERAL ORDER [place] Performing Organization Address City/[facility]/ZIP Code Phon e Number [address] Anaerobic Culture (08/12/2021 7:49 PM EDT) [facility] Method Time Signature Anaerobic No anaerobic [facility] Culture organisms [facility] LABORATORY Specimen (Source) Anatomical Collection Method Collection Time Re ceived Time Location / / Volume Laterality Abdominal Fluid 08/12/2021 7:49 2 8:55 PM EDT PM EDT Comment: Abdominal Wall Abscess Fluid Cu lture Resulting Agency Comment Spec In Lab Joshua Che MD MICROBIOLOGY - GENERAL ORDER [place] Performing Organization Address City/[facility]/[place] [address] (ABNORMAL) Body Fluid Culture, Aerobic (08/12/2021 7:49 PM EDT) Component Value Ref Test Analysis Performed At [facility] Method Time Signature Body Fluid Moderate mixed Gram Positive organisms including Coagulase negative [facility] Culture Staphylococcus species [facility] Susceptibilities previously reported [facility] Gram Stain Cytocentrifuge Gram Stain performed OLGA Neutrophils seen RUTH Many Gram Positive Cocci seen [facility] Results called to and read back by Dilip rojas ?? 2 22:08:54 [facility] () LABORATORY Organism Coagulase negative OLGA Staphylococcus NAVEEN species (A) [facility] Organism Gram Positive Cocci [facility] () [facility] Specimen (Source) Anatomical Collection Method Collection Time Re ceived Time Location / / Volume Laterality Abdominal Fluid 08/12/2021 7:49 2 8:55 PM EDT PM EDT Comment: Abdominal Wall Abscess Fluid Cu lture Resulting Agency Comment Spec In Lab Joshua Che MD MICROBIOLOGY - GENERAL ORDER [place] Performing Organization Address City/[facility]/ZIP Code Phon e Number [address] COVID-19 PCR (08/12/2021 4:02 PM EDT) [facility] Method Time Signature SARS-CoV-2 Not Detected Not Detected OLGA RNA PCR [facility] Comment: This result [...] using the Simplexa COVID-19 Direct Assay by Caninesnoeim zhang as authorized by the FDA issued Emergency Use Authorization (EUA). This assay is intended for In-vitro Diagnostic (IVD) use with nasopharyngeal swabs collected from individuals meeting the CDC criteria for testing. e assay is performed based on the instructions for use and additional guid ance provided by the FDA. Testing is performed in the Microbiology Laboratory within the Department of Pathology and Laboratory Medicine at [facility], certified under the Clinical Laboratory Improvement Amendmen [...] clinical management guidance information are available at th e CDC Coronavirus Disease 2019 (COVID-19) webpage under Information fo r Healthcare Professionals (https://www.cdc.gov/coronavirus/2019-nc ov/hcp/index.html). Additional information about this and ot her EUA tests can be found in provider and patient fact sheets at the following FDA website: https://www.fda.gov/medical-devices/xqeraeyxojh-lptqgvh-3095-rdkuq-12-zrrnixikj- aji-ysiovrtynugufe-kxdtgst-devices/qjzgt-oufatqpesfl-ttmj SARS-CoV-2 Source [employer] Swab [facility] Specimen (Source) Anatomical Collection Method Collection Time Re ceived Time Location / / Volume Laterality Nasopharyngeal Swab 08/12/2021 4:02 08/12 PM EDT 4:49 PM EDT Comment: Symptoms->Surveillance Resulting Agency Comment Spec In Lab Viviana Camacho MD MICROBIOLOGY - GENERAL ORDER [place] Performing Organization Address City/State/ZIP [place] [address] Abdomen & Pelvis wo Contrast (08/12/2021 2:33 PM EDT) Anatomical Region Laterality Modality Abdomen, [...] who have questions please contact the health animal care giver that requested your imaging first. ? Narrative [...] ho have questions please contact the health animal care giver that requested your imaging first. Tu Banegas [employer] IMG CT ORDERABLES (ABNORMAL) BLOOD GAS 2 VENOUS (08/12/2021 2:15 PM EDT) Analysis Performed At Patho logist Time Signature pH Lan 7.43 (H) 7.32 - [facility] 7.42 [facility] pCO2 Lan 44 41 - 51 [facility]ATORY pO2 Lan 29 25 - 40 [facility]ORY HCO3 Lan 28.2 mmol/L [facility] BE Lan 3.8 mmol/L [facility] Hgb Blood Gas 14.2 11.7 - [facility] 15.5 g/dL [facility] O2HB Lan 51.2 % [facility] COHB Lan 5.8 % [facility] Comment: Nonsmokers: 0.5-1.5% COHB Smokers: Variable, but usually less than 10% Toxic: 20-30% COHB Lethal: Greater than 60% COHB METHB Lan 0.2 <=1.5 % [facility] Na Whole Blood 136 135 - 145 mmol/L [facility] K Whole Blood 2.6 (Critical) 3.5 - 5.0 mmol/L [facility] Comment: Noted by brass and wind instrument repairer. Please note: Patients with WBC >100,000 may have falsely elevated Potassium levels. Contact the Clinical Chemistry L aboratory if there are any questions. ICa Whole Blood 1.19 1.15 - 1.33 mmol/L [facility] Comment: Note: ??Total bilirubin higher than 20 m g/dL may lead to falsely low ionized calcium. CL Whole Blood 97 (L) 98 - 107 mmol/L [facility] Gluc Whole Bld 146 65 - 199 mg/dL [facility] Comment: Diabetes: >=200 mg/dL plus symp toms Lactate WB 1.7 0.5 - 2.2 mmol/L [facility] BGas Source Venous [facility] Specimen Anatomical Collection Method Collection Time Receive d Time (Source) Location / / Volume Laterality Blood 08/12/2021 2:15 PM 2:15 EDT PM EDT Viviana Camacho MD CHEMISTRY ORDERABLES Performing Organization Address City/State/ZIP [place] [address] (ABNORMAL) Differential, Automated (08/12/2021 2:10 PM EDT) [facility] gist Method Time Signature Neutrophils % 66.7 % [facility] Neutr Abs (ANC) 11.06 (H) 1.70 - [facility] 6.10 [facility] x10(3)/[facility] LABORATORY Lymphocytes % 18.6 % [facility] Lymphocytes Abs 3.1 0.9 - 3.2 [facility] x10(3)/[facility] LABORATORY Monocytes % 7.7 % [facility] Monocyte Abs 1.3 (H) 0.3 - 0.9 [facility] x10(3)/[facility] LABORATORY Eosinophils % 5.6 % [facility] Eosinophils Abs 0.9 (H) 0.0 - 0.4 [facility] x10(3)/[facility] LABORATORY Basophils % 1.0 % [facility] Basophils Abs 0.2 (H) 0.0 - 0.1 [facility] x10(3)/[facility] LABORATORY Immature Gran % 0.40 % [facility] Comment: Immature granulocytes(IG's)percentage an d absolute count will include metamyelocytes, myelocytes, and promyelo cytes. Blood smears from CBCs yielding IG's will be scanned manually for concor dance. If this scan disagrees with the automated IG or if promyelocytes are not ed, a manual differential will be performed. Shantell Gran Abs 0.06 (H) 0.00 - 0.04 x10(3)/[facility] LABORATORY Specimen Anatomical Collection Method Collection Time Receive d Time (Source) Location / / Volume Laterality Blood 08/12/2021 2:10 PM 2 2:20 EDT PM EDT Resulting Agency Comment Spec In Lab Tu Bacaicoa [employer] HEMATOLOGY ORDERABLES Performing Organization Address City/State/ZIP [place] [address] (ABNORMAL) Hemogram (08/12/2021 2:10 PM EDT) Analysis Performed At Patho logist Time Signature WBC 16.6 (H) 4.0 - 9.5 [facility] LABORATORY RBC 4.60 4.00 - OLGA NAVEEN 5.21 [facility] x10(6)/[facility] LABORATORY Hemoglobin 13.4 11.7 - [place] NAVEEN 15.5 g/dL [facility] Hematocrit 40.7 35.7 - [facility] NAVEEN 45.8 % [facility] MCV 88.5 82.6 - [facility] NAVEEN 94.4 [facility] LABORATORY MCH 29.1 27.1 - [place] NAVEEN 32.0 pg [facility] MCHC 32.9 31.7 - [facility] NAVEEN 35.0 g/dL [facility] Platelets 480 (H) 145 - 357 [facility] x10(3)/[facility] LABORATORY RDWSD 41.2 37.0 - [facility] NAVEEN 46.0 [facility] LABORATORY RDWCV 12.6 11.5 - [facility] NAVEEN 14.1 % [facility] LABORATORY MPV 9.2 7.6 - 12.9 [facility] nRBC % Auto 0.0 % [facility] nRBC Abs Auto 0.000 0.000 - [facility] NAVEEN 0.000 [facility] x10(3)/[facility] LABORATORY Specimen Anatomical Collection Method Collection Time Receive d Time (Source) Location / / Volume Laterality Blood 08/12/2021 2:10 PM 2 2:20 EDT PM EDT Resulting Agency Comment Spec In Lab Tu Bacaicoa [employer] HEMATOLOGY ORDERABLES Performing Organization Address City/State/ZIP Code Phon [place] [address] (ABNORMAL) Basic Metabolic Panel (non-fasting) (08/12/2021 2:10 PM EDT) athologist Signature Glucose Lvl 147 65 - 199 [facility] mg/dL [facility] Comment: Diabetes: >=200 mg/dL plus symp toms BUN 16 8 - 18 mg/dL [facility] Creatinine 0.64 (L) 0.70 - 1.20 mg/dL [facility] Sodium 135 135 - 145 mmol/L [facility] Potassium 2.7 (Critical) 3.5 - 5.0 mmol/L [facility] Comment: called by EB/read back by Lana Pantoja 5-3 0-22 @ 6247 Please note: ??Patients with WBC >100,00 0 may have falsely elevated Potassium levels. ??For accurate Potassium quantif ication in these patients send serum separator tube (gold top) for subsequent determinations. ??Contact the Clinical Chemistry Laboratory if there are any qu estions. Chloride 96 (L) 98 - 107 mmol/L [facility] CO2 27 22 - 31 mmol/L [facility] Anion Gap 12 5 - 15 mmol/L [facility] Calcium 8.7 8.5 - 10.5 mg/dL [facility] Estimated GFR 98 >=60 mL/min/1.73 m?? [facility] Comment: This patient? s estimated glomerular filtration rate (eGFR) is between 98 mL/min/1.73 m2 (patients with less muscl e mass) and 113 mL/min/1.73 m2 (patients with more muscle mass) [...] Location / / Volume Laterality Blood 08/12/2021 2:10 PM 2 2:20 EDT PM EDT Resulting Agency Comment Spec In Lab Tu Banegas APRN CHEMISTRY ORDERABLES Performing Organization Address City/State/ZIP [place] [address] documented in this encounter Visit Diagnoses Diagnosis Wound infection after surgery Other postoperative infection documented in this encounter Admitting Diagnoses Diagnosis Wound infection after surgery Other postoperative infection documented in this encounter Administered Medications Inactive Administered Medications - up to 3 most recent administrations Medication Order MAR Action Action Date Dose Rate Site acetaminophen (Tylenol) tablet Given 08/22/2021 11:55 AM EDT 1,0 00 mg 1,000 mg 1,000 mg, Oral, EVERY 6 HOURS SCHEDULED, First dose (after last modification) on Thu08/13/21 at 0600, Until Discontinued, Administer for temperature greater than or equal to 38.2 degrees celsius. Maximum daily dose of acetaminophen from all sources not to exceed 4,000 mg. When ordered for pain, acetaminophen should be given even when other ordered pain medications are indicated., Routine Given 08/22/2021 5:33 AM EDT 1,000 mg Given 08/21/2021 11:26 PM EDT 1,000 mg acetaminophen (Tylenol) tablet 650 mg Given 08/13/2021 12:35 AM EDT 650 mg 650 mg, Oral, EVERY 6 HOURS SCHEDULED, First dose on Thu08/12/21 at 2000, Until Discontinued, Administer for temperature greater than or equal to 38.2 degrees celsius. Maximum daily dose of acetaminophen from all sources not to exceed 4,000 mg. When ordered for pain, acetaminophen should be given even when other ordered pain medications are indicated., Routine Given 08/12/2021 7:58 PM EDT 650 mg atorvastatin (Lipitor) tablet 20 mg Given 08/21/2021 5:38 PM EDT 20 mg 20 mg, Oral, EVERY EVENING, First dose on Thu08/12/21 at 2230, Until Discontinued, Routine Given 08/20/2021 5:13 PM EDT 20 mg Given 08/18/2021 4:59 PM EDT 20 mg dextrose 10% infusion 250 mL, at 1,000 mL/hr, Intravenous, IRIS RY 30 MIN PRN, Starting on Thu08/13/21 at 1130, Until Thu08/22/21 at 1409, For B G 50-70 mg/dL: Oral treatment [...] insulin. doxycycline monohydrate (Monodox) capsule 100 Given 8:18 AM EDT 100 mg mg 100 mg, Oral, 2 TIMES DAILY, First dose on Thu08/21/21 at 0900, Until Discontinued, Routine Given 08/21/2021 8:21 PM EDT 100 mg Given 08/21/2021 8:45 AM EDT 100 mg enoxaparin (Lovenox) (40 mg/0.4 mL) Given 08/22/2021 8:18 AM EDT 40 mg subcutaneous injection 40 mg 40 mg, Subcutaneous, DAILY, First dose on Thu08/13/21 at 0900, Until Discontinued, Routine Given 08/21/2021 8:45 AM EDT 40 mg Given 08/20/2021 8:09 AM EDT 40 mg fentaNYL (pf) (50 mcg/mL) multi-dose Given 08/15/2021 4:00 AM ED T 25 mcg injection 25 mcg 25 mcg, Intravenous, EVERY 5 MIN PRN, Starting on Thu08/15/21 at 0357, Until Thu08/15/21 at 0404, Pain, Moderate to severe pain (6-10 out of 10), Hold for respiratory rate less than 10 per minute. Maximum dose 200 mcg over one hour, including OR administration. If ordered with HYDROmorphone or morphine, give HYDROmorphone or morphine first and use fentaNYL for breakthrough pain., PACU Recovery, Routine fentaNYL (pf) (50 mcg/mL) multi-dose Given 08/15/2021 5:24 AM ED T 25 mcg injection 25 mcg 25 mcg, Intravenous, EVERY 5 MIN PRN, Starting on Kiara 08/15/21 at 0447, Until Kiara 08/15/21 at 0614, Pain, Moderate to severe pain (6-10 out of 10), Hold for respiratory rate less than 10 per minute. Maximum dose 200 mcg over one hour, including OR administration. If ordered with HYDROmorphone or morphine, give HYDROmorphone or morphine first and use fentaNYL for breakthrough pain., PACU Recovery, Routine Given 08/15/2021 5:16 AM EDT 25 mcg Given 08/15/2021 4:59 AM EDT 25 mcg glucagon (Glucagen) (1 mg/mL) injection solution 1 mg 1 mg, Intramuscular, EVERY 30 MIN PRN, S tarting on 08/13/21 at 1130, Until Kiara 08/22/21 at 1409, Low blood sugar, For BG 50-70 mg/dL: [...] Buccal, EVERY 30 MIN PRN, Starting on Thu08/13/21 at 1130, Until Thu08/22/21 at 1409, Low blood suga r, For BG 50-70 [...] Routine hydroCHLOROthiazide (Hydrodiuril) tablet 25 mg Given 08/22/2021 8:18 AM EDT 25 mg 25 mg, Oral, DAILY, First dose on Thu08/13/21 at 0900, Until Discontinued, Routine Given 08/21/2021 8:45 AM EDT 25 mg Given 08/20/2021 8:10 AM EDT 25 mg HYDROmorphone (Dilaudid) (0.5 mg/0.5 mL) Given 08/18/2021 11:53 PM EDT 0.2 mg injection syringe 0.2 mg 0.2 mg, Intravenous, EVERY 2 HOURS PRN, Starting on Thu08/12/21 at 2142, Until Thu08/20/21 at 0811, Pain, Administer for pain still >5/10 after PO pain meds., Routine Given 08/18/2021 7:48 AM EDT 0.2 mg Given 08/17/2021 11:30 PM EDT 0.2 mg HYDROmorphone (Dilaudid) (0.5 mg/0.5 mL) Given 08/12/2021 2:18 P M EDT 1 mg injection syringe 1 mg 1 mg, Intravenous, ONCE, 1 dose, On Thu08/12/21 at 1405, STAT HYDROmorphone (Dilaudid) (0.5 mg/0.5 mL) Given 08/12/2021 3:02 P M EDT 1 mg injection syringe 1 mg 1 mg, Intravenous, ONCE, 1 dose, On Thu08/12/21 at 1502, STAT HYDROmorphone (Dilaudid) (2 mg/mL) multi-dose Given 4:24 AM EDT 0.2 mg injection solution 0.2 mg 0.2 mg, Intravenous, EVERY 10 MIN PRN, Starting on Kiara 08/15/21 at 0357, Until Kiara 08/15/21 at 0405, Pain, For Mild to Moderate Pain (1-5 out of 10), Hold for respiratory rate less than 10 per minute. Maximum dose 3 mg over one hour including administrations in the OR. If multiple pain medications are ordered, start with HYDROmorphone or morphine and use fentaNYL for breakthrough pain, PACU Recovery, Routine HYDROmorphone (Dilaudid) (2 mg/mL) multi-dose Given 7:50 PM EDT 0.4 mg injection solution 0.4 mg 0.4 mg, Intravenous, EVERY 10 MIN PRN, Starting on Thu08/12/21 at 1918, Until Thu08/12/21 at 2103, Pain, For Moderate to Severe Pain (6-10 out of 10), Hold for respiratory rate less than 10 per minute. Maximum dose 3 mg over one hour including administrations in the OR. If multiple pain medications are ordered, start with HYDROmorphone or morphine and use fentaNYL for breakthrough pain, PACU Recovery, Routine Given 08/12/2021 7:40 PM EDT 0.4 mg HYDROmorphone (Dilaudid) (2 mg/mL) multi-dose Given 6:17 PM EDT 0.4 mg injection solution 0.4 mg 0.4 mg, Intravenous, EVERY 10 MIN PRN, Starting on Thu08/19/21 at 1744, Until Thu08/19/21 at 1959, Pain, For Mild to Moderate Pain (1-5 out of 10), Hold for respiratory rate less than 10 per minute. Maximum dose 4 mg over one hour including administrations in the OR. If multiple pain medications are ordered, start with HYDROmorphone or morphine and use fentaNYL for breakthrough pain, PACU Recovery, Routine HYDROmorphone (Dilaudid) tablet 2 mg Given 08/17/2021 9:05 AM EDT 2 mg 2 mg, Oral, EVERY 4 HOURS PRN, Starting on Thu08/13/21 at 1308, Until Thu08/22/21 at 1409, Pain, for pain not controlled with tylenol and toradol, May give an additional 2 mg once if pain not relieved in 30-60 minutes., Routine Given 08/17/2021 4:12 AM EDT 2 mg Given 08/16/2021 11:07 PM EDT 2 mg HYDROmorphone (Dilaudid) tablet 4 mg Given 08/20/2021 10:22 PM EDT 4 mg 4 mg, Oral, EVERY 4 HOURS PRN, Starting on Thu08/13/21 at 1308, Until Thu08/22/21 at 1409, Pain, Routine Given 08/20/2021 6:19 PM EDT 4 mg Given 08/20/2021 5:15 AM EDT 4 mg insulin lispro (HumaLOG;Admelog) (100 Given 08/22/2021 10:29 AM EDT 4 Units unit/mL) subcutaneous injection vial 0-8 Units 0-8 Units, Subcutaneous, 3 TIMES DAILY WITH MEALS, First dose on Thu08/13/21 at 1230, Until Discontinued, MEAL ASSOCIATED Give 1 unit for every 10 grams carbohydrate. Hold if not eating or if BG less than 70 mg/dL., Routine Given 08/21/2021 7:48 PM EDT 3 Units Given 08/21/2021 1:24 PM EDT 3 Units insulin lispro (HumaLOG;Admelog) Given 08/19/2021 11:58 PM EDT 1 Units Right Arm (100 unit/mL) subcutaneous injection vial 1-4 Units 1-4 Units, Subcutaneous, EVERY 4 HOURS SCHEDULED, First dose on Thu08/13/21 at 1230, Until Discontinued, CORRECTION BOLUS [1-4 Units] Sensitive Sliding Scale (BG in mg/dL): Correction factor 40 (1 unit of insulin is expected to drop the glucose 40 mg/dL) BG 160 - 200 Give 1 unit BG 201 - 240 Give 2 units BG 241 - 280 Give 3 units BG greater than 280, give 4 units and recheck BG in 2 hours. - If recheck BG is LESS than 280, give no insulin and resume schedule - If recheck BG is GREATER than 280, give 4 units and repeat BG in 2 hours (no more than 3 times) & call for new insulin orders. DO NOT hold if NPO, unless specifically directed to do so by written order. Per Blood Glucose Monitoring Policy, re-check a BG of > 240 mg/dL in 2 hours., Routine Given 08/13/2021 12:51 PM EDT 3 Units ketorolac (Toradol) (15 mg/mL) injection 15 mg Given 08/15/2021 9:50 AM EDT 15 mg 15 mg, Intravenous, EVERY 6 HOURS PRN, Starting on Thu08/13/21 at 1309, Until Thu08/15/21 at 1308, Pain, for pain not controlled with tylenol, Routine Given 08/14/2021 11:33 PM EDT 15 mg Given 08/14/2021 3:42 PM EDT 15 mg lactated ringers infusion New Bag 08/12/2021 7:58 PM EDT 1,000 mLs 100 mL/hr 1,000 mL, at 100 mL/hr, Intravenous, CONTINUOUS, Starting on Thu08/12/21 at 2000, Until Thu08/12/21 at 2142 lactated ringers infusion New Bag 08/14/2021 8:45 AM EDT 50 mL/hr 50 mL/hr 50 mL/hr, Intravenous, CONTINUOUS, Starting on Thu08/14/21 at 0845, Until Thu08/14/21 at 1200 lactated ringers infusion New Bag 08/19/2021 9:56 AM EDT 100 mL/hr 100 mL/hr 100 mL/hr, Intravenous, CONTINUOUS, Starting on Thu08/19/21 at 0915, Until Thu08/19/21 at 1914 lidocaine (Lidoderm) 5% Patch Applied 08/18/2021 2:12 PM 3 patches 13- Abdomen patch 3 patch EDT (Left) 3 patch, Transdermal, EVERY 24 HOURS, First dose on Thu08/13/21 at 1400, Until Discontinued, Apply patch(es) for 12 hours, and then remove for 12 hours., Routine Patch Applied 08/17/2021 1:32 PM EDT 3 patches 13- Abdomen (Left) Patch Applied 08/15/2021 1:43 PM EDT 3 patches 13- Abdomen (Left) lidocaine (Lidoderm) topical patch REMOV AL Transdermal, EVERY 24 HOURS, First dose on Thu08/14/21 at 0200, Until Discontinued, Remove lidocaine 5% patch magnesium sulfate 2 g in sterile water New Bag 08/14/2021 8:36 AM EDT 2 g 25 mL/hr 50 mL infusion 2 g, Intravenous, ONCE, 1 dose, On Thu08/14/21 at 0845, Administer over 120 Minutes metroNIDAZOLE (Flagyl) tablet 500 mg Given 08/22/2021 8:18 AM EDT 500 mg 500 mg, Oral, 3 TIMES DAILY, First dose on Thu08/16/21 at 2100, Until Discontinued, Routine Given 08/21/2021 8:21 PM EDT 500 mg Given 08/21/2021 3:36 PM EDT 500 mg ondansetron (pf) (Zofran) (2 mg/mL) inje ction 4 mg 4 mg, Intravenous, EVERY 8 HOURS PRN, St arting on Thu08/12/21 at 1528, Until Thu08/22/21 at 1409, Nausea oxyCODONE (Roxicodone) tablet 5 mg Given 08/13/2021 11:55 AM EDT 5 mg 5 mg, Oral, EVERY 4 HOURS PRN, Starting on Thu08/12/21 at 1936, Until Thu08/13/21 at 1310, Pain, Routine Given 08/13/2021 7:58 AM EDT 5 mg Given 08/12/2021 7:58 PM EDT 5 mg piperacillin-tazobactam (Zosyn) New Bag 08/14/2021 6:20 AM 3.375 g 12.5 mL/hr 3.375 g vial attach to sodium EDT chloride 0.9% 50 mL Mini-Bag Plus 3.375 g, Intravenous, EVERY 8 HOURS, First dose on Thu08/12/21 at 2230, Until Discontinued, Administer over 4 Hours, Warning Vesicant/Irritant Medication Do not administer or Y-site with lactated ringers., Indication for (Active or Suspected): Skin/Skin Structure New Bag 08/13/2021 10:26 PM EDT 3.375 g 12.5 mL/hr New Bag 08/13/2021 1:44 PM EDT 3.375 g 12.5 mL/hr piperacillin-tazobactam (Zosyn) 4.5 New Bag 08/12/2021 2:18 PM EDT 4.5 g 200 mL/hr g vial attach to sodium chloride 0.9% 100 mL Mini-Bag Plus 4.5 g, Intravenous, ONCE, 1 dose, On Thu08/12/21 at 1409, Administer over 0.5 Hours, Warning Vesicant/Irritant Medication Do not administer or Y-site with lactated ringers., Indication for (Active or Suspected): Skin/Skin Structure potassium chloride 10 mEq in New Bag 08/12/2021 4:22 PM EDT 10 mEq 100 mL/hr sterile water 100 mL infusion 10 mEq, Intravenous, ONCE, 1 dose, On Thu08/12/21 at 1423, Administer over 60 Minutes, Warning Vesicant/Irritant Medication potassium chloride 10 mEq in New Bag 08/12/2021 5:36 PM EDT 10 mEq 100 mL/hr sterile water 100 mL infusion 10 mEq, Intravenous, ONCE, 1 dose, On Thu08/12/21 at 1424, Administer over 60 Minutes, Warning Vesicant/Irritant Medication potassium chloride ER (K-Dur/Klor-Con) tablet Given 8:18 AM EDT 20 mEq 20 mEq 20 mEq, Oral, 2 TIMES DAILY, First dose on Thu08/12/21 at 2230, Until Discontinued, 20 mEq tablet may be dissolved in water for administration, Routine Given 08/21/2021 8:21 PM EDT 20 mEq Given 08/21/2021 8:45 AM EDT 20 mEq potassium chloride ER (K-Dur/Klor-Con) Given 08/14/2021 11:33 AM EDT 40 mEq tablet 40 mEq 40 mEq, Oral, ONCE, 1 dose, On Thu08/14/21 at 1200, 20 mEq tablet may be dissolved in water for administration, Routine senna-docusate (Pericolace) 8.6-50 mg per Given 2021 8:47 AM EDT 2 tablets tablet 2 tablet 2 tablet, Oral, 2 TIMES DAILY, First dose on Thu08/12/21 at 2230, Until Discontinued, Routine Given 08/20/2021 8:14 PM EDT 2 tablets Given 08/20/2021 8:25 AM EDT 2 tablets sodium chloride 0.9 % (flush) (BD PosiFlush Given 08/22/2021 8:1 9 AM EDT 5 mLs Normal Saline 0.9) flush 5 mL 5 mL, Intravenous, 2 TIMES DAILY, First dose on Thu08/12/21 at 2230, Until Discontinued, Routine Given 08/21/2021 8:18 PM EDT 5 mLs Given 08/21/2021 8:45 AM EDT 5 mLs sodium chloride 0.9% 1,000 mL IV bolus New Bag 08/12/2021 2:21 PM EDT 2000 mL/hr at 2,000 mL/hr, Intravenous, ONCE, 1 dose, On Thu08/12/21 at 1407 vancomycin (Vancocin) 1 gram in New Bag 08/13/2021 11:50 PM EDT 1 g 250 mL/hr sodium chloride 0.9% 250 mL infusion 1 g, Intravenous, EVERY 8 HOURS, First dose on Thu08/13/21 at 0500, Until Discontinued, Administer over 60 Minutes, Maximum infusion rate is 1 gram/hour. If flushing of the face, neck, upper body, arms, and/or back occurs decrease infusion rate by 50% to reduce the severity of symptoms. This medication may have an associated drug lab level. Please see MAR for scheduled level. Warning Vesicant/Irritant Medication , Indication for (Active or Suspected): GI/Intra-abdominal New Bag 08/13/2021 4:40 PM EDT 1 g 250 mL/hr New Bag 08/13/2021 8:01 AM EDT 1 g 250 mL/hr vancomycin (Vancocin) 1 gram in sodium New Bag 08/15/2021 9:31 PM EDT 1 g 250 mL/hr chloride 0.9% 250 mL infusion 1 g, Intravenous, EVERY 8 HOURS, First dose (after last modification) on Thu08/14/21 at 0800, Until Discontinued, Administer over 60 Minutes, Maximum infusion rate is 1 gram/hour. If flushing of the face, neck, upper body, arms, and/or back occurs decrease infusion rate by 50% to reduce the severity of symptoms. This medication may have an associated drug lab level. Please see MAR for scheduled level. Warning Vesicant/Irritant Medication , Indication for (Active or Suspected): GI/Intra-abdominal New Bag 08/15/2021 1:43 PM EDT 1 g 250 mL/hr New Bag 08/15/2021 6:31 AM EDT 1 g 250 mL/hr vancomycin (Vancocin) 1 gram in New Bag 08/21/2021 12:49 AM EDT 1 g 250 mL/hr sodium chloride 0.9% 250 mL infusion 1 g, Intravenous, EVERY 12 HOURS, First dose (after last modification) on Thu08/20/21 at 1300, Until Discontinued, Administer over 60 Minutes, Maximum infusion rate is 1 gram/hour. If flushing of the face, neck, upper body, arms, and/or back occurs decrease infusion rate by 50% to reduce the severity of symptoms. This medication may have an associated drug lab level. Please see MAR for scheduled level. Warning Vesicant/Irritant Medication , Indication for (Active or Suspected): GI/Intra-abdominal New Bag 08/20/2021 12:35 PM EDT 1 g 250 mL/hr vancomycin (Vancocin) 1.25 gram New Bag 08/19/2021 10:25 PM ED T 1,250 mg 200 mL/hr in sodium chloride 0.9% 250 mL infusion 1,250 mg, Intravenous, EVERY 12 HOURS, First dose on Thu08/18/21 at 2000, Until Discontinued, Administer over 75 Minutes, Maximum infusion rate is 1 gram/hour. If flushing of the face, neck, upper body, arms, and/or back occurs decrease infusion rate by 50% to reduce the severity of symptoms. This medication may have an associated drug lab level. Please see MAR for scheduled level. Warning Vesicant/Irritant Medication , Indication for (Active or Suspected): GI/Intra-abdominal New Bag 08/19/2021 7:58 AM EDT 1,250 mg 200 mL/hr New Bag 08/18/2021 8:55 PM EDT 1,250 mg 200 mL/hr vancomycin (Vancocin) 1.75 gram in Given 08/17/2021 9:16 PM EDT 1,750 mg 250 mL/hr sodium chloride 0.9% 500 mL infusion 1,750 mg (1.75 g), Intravenous, EVERY 12 HOURS, First dose (after last modification) on Thu08/16/21 at 0900, Until Discontinued, Administer over 120 Minutes, Maximum infusion rate is 1 gram/hour. If flushing of the face, neck, upper body, arms, and/or back occurs decrease infusion rate by 50% to reduce the severity of symptoms. This medication may have an associated drug lab level. Please see MAR for scheduled level. Warning Vesicant/Irritant Medication , Indication for (Active or Suspected): GI/Intra-abdominal Given 08/17/2021 9:50 AM EDT 1,750 mg 250 mL/hr Given 08/16/2021 8:33 PM EDT 1,750 mg 250 mL/hr documented in this encounter Active and Recently Administered Medications Times are shown in EDT. Scheduled Medication Order 08/20/2021 08/21/2021 08/22/2021 acetaminophen (Tylenol) tablet 1,000 mg 0001 (Given - Provider: Sabrina Corona RN)0515 (Given - Provider: Sabrina Corona RN)1235 (Not Given - Provider: Kandi Grubbs RN - Reason: Patient/family refused)1800 (Not Given - Provider: Kandi Grubbs RN - Reason: Patient/family refused) 0552 (Given - Provider: Joshua Mccallum, GENA)1210 (Given - Provider: Evelia Durham RN)1738 (Given - Provider: Evelia Durham RN)2326 (Given - Provider: Joshua Mccallum, GENA) 0533 (Given - Provider: Joshua Mccallum, GENA)1155 (Given - Provider: Evelia Durham RN) 1,000 mg, Oral, EVERY 6 HOURS SCHEDULED, First dose (after last modification) on Thu08/13/21 at 0600, Until Discontinued, Administer for temperature greater than or equal to 38.2 degrees celsius. Maximu 181 (Given - Provider: Kandi Grubbs RN)2323 (Given - Provider: Joshua Mccallum RN) m daily dose of acetaminophen from all s ources not to exceed 4,000 mg. When ordered for pain, acetaminophen should be given even when other ordered pain medications are indicated., Routine atorvastatin (Lipitor) tablet 20 mg 171 (Given - Prov ider: Kandi Grubbs RN) 173 (Given - Provider: Evelia Durham RN) 20 mg, Oral, EVERY EVENING, First dose o n Thu08/12/21 at 2230, Until Discontinued, Routine doxycycline monohydrate (Monodox) capsule 100 mg 0845 (Given - Provider: Evelia Durham RN)2020 (Given - Provider: Joshua Mccallum, GENA) 0818 (Given - Provider: Evelia Durham RN) 100 mg, Oral, 2 TIMES DAILY, First dose on Thu08/21/21 at 0900, Until Discontinued, Routine enoxaparin (Lovenox) (40 mg/0.4 mL) subcutaneous injec tion 40 mg 0809 (Given - Provider: Kandi Grubbs RN) 0845 (Given - Provider: Evelia Durham RN) 0818 (Given - Provider: Evelia Durham RN) 40 mg, Subcutaneous, DAILY, First dose o n Thu08/13/21 at 0900, Until Discontinued, Routine hydroCHLOROthiazide (Hydrodiuril) tablet 25 mg 0810 (G iven - Provider: Kandi Grubbs RN) 0845 (Given - Provider: Evelia Durham RN) 0818 (Given - Provider: Evelia Durham RN) 25 mg, Oral, DAILY, First dose on Thu at 0900, Until Discontinued, Routine insulin lispro (HumaLOG;Admelog) (100 un it/mL) subcutaneous injection vial 0-8 Units 0939 (Given - Provider: Kandi Grubbs RN)1257 (Given - Provider: Amira Uribe LPN)1814 (Given - Provider: Kandi Grubbs RN) 1030 (Given - Provider: Evelia Durham RN)1324 (Given - Provider: Evelia Durham RN)1948 (Given - Provider: Joshua Mccallum RN - Comment: Pt just finished dinner. Received late.) 1029 (Given - Provider: Dell Doss N)1200 (Due - Provider: Admin Adt) 0-8 Units, Subcutaneous, 3 TIMES DAILY W ITH MEALS, First dose on Thu08/13/21 at 1230, Until Discontinued, MEAL ASSOCIATED Give 1 unit for every 10 grams carbohydrate. Hold if not eating or if BG less than 70 mg/dL., Routine insulin lispro (HumaLOG;Admelog) (100 un it/mL) subcutaneous injection vial 1-4 Units(Linked Group 1) 0400 (Not Given - Provider: Sabrina kerr RN - Reason: Order parameters not met)0800 (Not Given - Provider: Kandi Grubbs RN - Reason: Order parameters not met - Comment: BS 113) 0000 (Not Given - Provider: Joshua Mccallum RN - Reason: Order parameters not met)0400 (Not Given - Provider: Joshua Mccallum RN - Reason: Order parameters not met) 0200 (Not Given - Provider: Joshua Mccallum RN - Reason: Order parameters not met)0430 (Not Given - Provider: Joshua Mccallum RN - Reason: Order parameters not met) 1-4 Units, Subcutaneous, EVERY 4 HOURS S CHEDULED, First dose on Thu08/13/21 at 1230, Until Discontinued, CORRECTION BOLUS [1-4 Units] Sensitive Sliding Scale (BG in mg/dL): Correction factor 40 (1 u 1200 (Not Given - Provider: Amira Uribe LPN - Reason: Order parameters not met)1600 (Not Given - Provider: Kandi Grubbs RN - Reason: Order parameters not met - Comment: BS 118) 0800 (Not Given - Provider: Evelia Durham RN - Reason: Order parameters not met - Comment: 105)1200 (Not Given - Provider: Evelia Durham RN - Reason: Order parameters not met - Comment: 144) 0800 (Not Given - Provider: Evelia gama RN - Reason: Order parameters not met - Comment: 105)1200 (Due - Provider: Admin Adt) nit of insulin is expected to drop the g lucose 40 mg/dL) BG 160 - 200 Give 1 unit BG 201 - 240 Give 2 units BG 241 - 280 Give 3 units BG greater than 280, give 4 units and recheck BG in 2 hours. - If re 2000 (Not Given - Provider: Amira Uribe LPN - Reason: Order parameters not met) 1600 (Not Given - Provider: Evelia Durham RN - Reason: Order parameters not met)2200 (Not Given - Provider: Joshua Mccallum RN - Reason: Order parameters not met) check BG is LESS than 280, give no insul in and resume schedule - If recheck BG is GREATER than 280, give 4 units and repeat BG in 2 hours (no more than 3 times) & call for new insulin orders. DO NOT hold if NPO, unless specifically direct ed to do so by written order. Per Blood Glucose Monitoring Policy, re-check a BG of > 240 mg/dL in 2 hours., Routine lidocaine (Lidoderm) 5% patch 3 patch(Linked Group 2) 1400 (Not Given - Provider: Kandi Grubbs RN - Reason: Patient/family refused) 1400 (Not Given - Provider: Evelia Durham RN - Reason: Patient/family refused) 3 patch, Transdermal, EVERY 24 HOURS, Fi rst dose on Thu08/13/21 at 1400, Until Discontinued, Apply patch(es) for 12 hours, and then remove for 12 hours., Routine lidocaine (Lidoderm) topical patch REMOVAL(Linked Grou p 2) 0200 (Hold - Provider: Sabrina Corona RN - Reason: Order parameters not met - Comment: lidocaine patch was not applied yesterday) 0200 (Patch Not Removed (add comment) - Provider: Joshua Mccallum RN - Comment: Not found) 0200 (Patch Not Removed (add comment) - Provider: Joshua Mccallum RN - Comment: Not applied earlier) Transdermal, EVERY 24 HOURS, First dose on Thu08/14/21 at 0200, Until Discontinued, Remove lidocaine 5% patch metroNIDAZOLE (Flagyl) tablet 500 mg 0810 (Given - Pro vider: Kandi Grubbs RN)1421 (Given - Provider: Kandi Grubbs RN)2014 (Given - Provider: Amira Uribe LPN) 0845 (Given - Provider: Dell Doss)1536 (Given - Provider: Evelia Durham RN)2020 (Given - Provider: Joshua Mccallum RN) 0818 (Given - Provider: Evelia Durham RN) 500 mg, Oral, 3 TIMES DAILY, First dose on Thu08/16/21 at 2100, Until Discontinued, Routine potassium chloride ER (K-Dur/Klor-Con) tablet 20 mEq 0 810 (Given - Provider: Kandi Grubbs RN)2013 (Given - Provider: Amira Uribe LPN) 0845 (Given - Provider: Evelia Durham RN)2020 (Given - Provider: Joshua Mccallum, GENA) 0818 (Given - Provider: Evelia Durham RN) 20 mEq, Oral, 2 TIMES DAILY, First dose on Thu08/12/21 at 2230, Until Discontinued, 20 mEq tablet may be dissolved in water for administration, Routine senna-docusate (Pericolace) 8.6-50 mg per tablet 2 tab let (CANCELED) 0825 (Given - Provider: Kandi Grubbs RN)2013 (Given - Provider: Amira Uribe LPN) 0847 (Given - Provider: Evelia Durham RN)2099 (Not Given - Provider: Joshua Mccallum RN - Reason: Patient/family refused - Comment: Loose stools today) 0900 (Not Given - Provider: Evelia Durham RN - Reason: Patient/family refused) 2 tablet, Oral, 2 TIMES DAILY, First dos e on Thu08/12/21 at 2230, Until Discontinued, Routine sodium chloride 0.9 % (flush) (BD PosiFlush Normal Harpal ine 0.9) flush 5 mL 0810 (Given - Provider: Kandi Grubbs RN)2015 (Given - Provider: Amira Uribe LPN) 0845 (Given - Provider: Dell Doss)2017 (Given - Provider: Joshua Mccallum RN) 0819 (Given - Provider: Dell Doss) 5 mL, Intravenous, 2 TIMES DAILY, First dose on Thu08/12/21 at 2230, Until Discontinued, Routine vancomycin (Vancocin) 1 gram in sodium chloride 0.9% 2 50 mL infusion (CANCELED) 1235 (New Bag - Provider: Kandi Grubbs, RN)1335 (Stopped - Provider: Kandi Grubbs, RN) 0049 (New Bag - Provider: Joshua gama RN)0149 (Stopped - Provider: Joshua Mccallum, GENA) 1 g, Intravenous, EVERY 12 HOURS, First dose (after last modification) on Thu08/20/21 at 1300, Until Discontinued, Administer over 60 Minutes, Maximum infusion rate is 1 gram/hour. If flushing of the fac e, neck, upper body, arms, and/or back o ccurs decrease infusion rate by 50% to reduce the severity of symptoms. This medication may have an associated drug lab level. Please see MAR for scheduled level. Warning Vesicant/Irritant Medication , Indication for (Active or Suspected): GI/Intra-abdominal PRN Medication Order 08/20/2021 08/21/2021 08/22/2021 bisacodyL (Dulcolax) suppository 10 mg 10 mg, Rectal, DAILY PRN, Starting on 08/12/21 at 2142, Until Thu08/22/21 at 1409, Constipation, Administer if needed per patient's routine or if no bowel movement within 48 hours to achieve: (1) One bowel movement every 48 hours, AND (2) W ithout straining. If multiple PRN bowel medications ordered, start with magnesium hydroxide, then bisacodyl. Multiple medications may be given concomitantly for constipation., Routine dextrose 10% infusion(Linked Group 3) 250 mL, at 1,000 mL/hr, Intravenous, IRIS RY 30 MIN PRN, Starting on Thu08/13/21 at 1130, Until Thu08/22/21 at 1409, For BG 50-70 mg/dL: Oral treatment preferred: [...] EVERY 30 MIN PRN, S tarting on Thu08/13/21 at 1130, Until Kiara 08/22/21 at 1409, Low blood sugar, For BG 50-70 mg/dL: [...] Buccal, EVERY 30 MIN PRN, Starting on Thu08/13/21 at 1130, Until Kiara 08/22/21 at 1409, Low blood sugar, For BG 50-70 mg/dL: Oral treatment preferred: If able to drink, give 120 mL J uice or Regular (not diet) soda OR If FIREARMS INSTRUCTOR O, give 15 gram glucose 40% oral [...] 37.5 grams.), Routine HYDROmorphone (Dilaudid) tablet 2 mg(Linked Group 4) 0 000 (See Alternative - Provider: Sabrina Corona RN)0515 (See Alternative - Provider: Sabrina Corona RN)1818 (See Alternative - Provider: Kandi Grubbs, GENA)2221 (See Alternative - Provider: Joshua Mccallum, GENA) 2 mg, Oral, EVERY 4 HOURS PRN, Starting on Thu08/13/21 at 1308, Until Kiara 08/22/21 at 1409, Pain, for pain not controlled with tylenol and toradol, May give an additional 2 mg once if pain not relieved in 30-60 minutes., Routine HYDROmorphone (Dilaudid) tablet 4 mg(Linked Group 4) 0 000 (Given - Provider: Sabrina Corona RN)0515 (Given - Provider: Sabrina Corona RN)1818 (Given - Provider: Kandi Grubbs, GENA)2221 (Given - Provider: Joshua Mccallum, GENA) 4 mg, Oral, EVERY 4 HOURS PRN, Starting on Thu08/13/21 at 1308, Until Kiara 08/22/21 at 1409, Pain, Routine lidocaine (Xylocaine) 1% (10 mg/mL) injection 3 mg 3 mg (0.3 mL), Subcutaneous, ONCE PRN, 1 dose, Starting on Thu08/12/21 at 2142, Until Kiara 9/22 at 1409, for discomfort with PIV insertion, Routine melatonin tablet 6 mg 6 mg, Oral, NIGHTLY PRN, Starting on Thu08/12/21 at 2142, Until Thu08/22/21 at 1409, Sleep, Routine ondansetron (pf) (Zofran) (2 mg/mL) injection 4 mg 4 mg, Intravenous, EVERY 8 HOURS PRN, St arting on Thu08/12/21 at 1528, Until Thu08/22/21 at 1409, Nausea sodium chloride 0.9 % (flush) (BD PosiFlush Normal Saline 0.9) f lush 5-20 mL 5-20 mL, Intravenous, EVERY 1 MIN PRN, S tarting on Thu08/12/21 at 2142, Until Thu08/22/21 at 1409, flush, Flush pertains to all indwelling lines. Flush per protocol found in the job aid using the link provided on this medication record., Routine Linked Groups Order Group 1: POCT Fingerstick Glucose (CANCELED) Routine, EVERY 4 HOURS, First occurrence on Thu08/13/21 at 1135, Until Specified
Consider choosing EVERY 4 HOURS as frequency for: - Type 1 Diabetes - At least 24 hours after coming off an insu ghanshyam drip - At least 24 hours after admis nicolasa for DKA - Hypoglycemia unawareness - Patients who are otherwise unstable Select the same frequency for the correction bolus insulin order And insulin lispro (HumaLOG;Admelog) (100 unit/mL) subcutaneous injection vial 1-4 UnitsJump to med 1-4 Units, Subcutaneous, EVERY 4 HOURS S CHEDULED, First dose on Thu08/13/21 at 1230, Until Discontinued
CORRECTION BOLUS [1-4 Units] Sensitive Sliding Scale (BG in mg/dL): Correcti on factor 40 (1 unit of insulin is expec lorraine to drop the glucose 40 mg/dL) BG 160 - 200 Give 1 unit BG 201 - 240 Give 2 units BG 241 - 280 Give 3 units BG greater than 280, give 4 units and re check BG in 2 hours. - If recheck BG is LESS than 280, give no insulin and resume schedule - If recheck BG is GREATER than 280, give 4 units an d repeat BG in 2 hours (no more than 3 t imes) & call for new insulin orders. DO NOT hold if NPO, unless specifically directed to do so by written order.&am p;nbsp; Per Blood Gluco se Monitoring Policy, re-check a BG of > 240 mg/dL in 2 hours.
Routine Group 2: lidocaine (Lidoderm) 5% patch 3 patchJump to med 3 patch, Transdermal, EVERY 24 HOURS, Fi rst dose on Thu08/13/21 at 1400, Until Discontinued
Apply patch(es) for 12 hours, and then remove for 12 hours.
Routine And lidocaine (Lidoderm) topical patch REMOVALJump to med Transdermal, EVERY 24 HOURS, First dose on Thu08/14/21 at 0200, Until Discontinued
Remove lidocaine 5% patch
Group 3: glucose (Glutose) 40% oral geLJump to med 15-30 g of glucose, Buccal, EVERY 30 MIN PRN, Starting on Thu08/13/21 at 1130, Until Thu08/22/21 at 1409, Low blood sugar
For BG 50-70 mg/dL: [...] IRIS RY 30 MIN PRN, Starting on Thu08/13/21 at 1130, Until Kiara 08/22/21 at 1409
For BG 50-70 mg/dL: Oral tr eatment [...] EVERY 30 MIN PRN, S tarting on Thu08/13/21 at 1130, Until Kiara 08/22/21 at 1409, Low blood sugar
For BG 50-70 mg/dL: [...] episode. & nbsp; For persistent hypoglycemia, con product development scientist longer-acting treatment for the duration of the active insulin.
Routine Group 4: HYDROmorphone (Dilaudid) tablet 2 mgJump to med 2 mg, Oral, EVERY 4 HOURS PRN, Starting on Thu08/13/21 at 1308, Until Kiara 08/22/21 at 1409, Pain, for pain not controlled with tylenol and toradol
May give an additional 2 mg once if pain not relieved in 30-60 minutes.
Routine Or HYDROmorphone (Dilaudid) tablet 4 mgJump to med 4 mg, Oral, EVERY 4 HOURS PRN, Starting on Thu08/13/21 at 1308, Until Kiara 08/22/21 at 1409, Pain, Routine documented in this encounter Care Teams [place] Management Specialist Relationship Specialty Start Date End Date Ally Ortiz, FREIGHT TRAFFIC CONSULTANT PCP - General Internal Medicine 04/24/[address] [place] [address] documented as of this encounter
--- OUTSIDE RECORDS SUMMARY | 2021-09-27 14:50 | XMS_ITS | Encounter Summary ---
:1960 [place] [address] Care Team Providers Name Role Phone DianaAlly Mary MUNOZ Primary Care Provider Reason for Visit Auth/Cert Specialty Diagnoses / Procedures Referred By Contact Refer red To Contact Diagnoses Wound infection after surgery Procedures ER IPI Referral ID Status Reason Start Date Expiration Date Visits Requ ested Visits Authorized [id number] 1 1 Encounter Details Date Type Department Care Team Description 08/19/2021 Anesthesia Event Main Operating Room Hailey Pérez MD [facility] [place] [address] [facility] [place] [address] [place] [address] Anesthesia Record Procedure Summary Procedure Name Responsible Anesthesia Start Anesthesia Stop Time Anesthesiologist Time SECONDARY CLOSURE Hailey Pérez MD 08/19/21 1605 2 1750 SURGICAL WOUND OR DEHISCENCE, EXTENSIVE OR COMPLICATED, TRUNK (WRVU 12.04) (Midline Abdomen) Events Date Time Event Comment 08/19/2021 1605 AN Verify 1605 Start 1605 An Start Data 1615 An Induction 1616 An Intubation 1617 Anesthesia Ready 1626 1702 Handoff Intra-procedure anesthesia care was transferred afte r review of the patient's history, current anesthetic/surgical status and procedural p sj, anticipated issues and expected post-op erative course (including disposition.) ER VIDA DAVID CRNA 1728 Extubation/LMA Out 1744 an stop data 1748 Recovery or ICU Handoff Patient care was transferred to the destination unit staff after review of the patient's medica l history, current anesthetic/surgi mary grace status and plan, according to the Provider Handoff Checklist. 1750 Stop Name Total Propofol 400 mg fentaNYL 100 mcg Dexamethasone 4 mg Ondansetron 4 mg ePHEDrine 20 mg Lactated Ringers 200 mL Agents Name O2 Air N2O Sevoflurane (et) Blood No blood administrations on file. Lines, Drains, and Airways Type Details Placement Removal Incision 07/23/21; 1511; midline, 07/23/21 1511 by anterior; abdomen; Nikos Avila, vertical RN NPWT 08/12/21; 1926; midline; 08/12/21 1926 by Hernán, 0 08/19/21 1703 by abdomen; 08/19/21; 1703 GENA Hall Sarah B, GENA PIV 08/18/21; 0740; cephalic 08/18/21 0740 by 1044 by vein (lateral side of Ten Rayo RN Quirma y, Ganesh M, TASSEL MAKING MACHINE OPERATOR arm), right; [id number] catheter system; Ultrasound Guidance; 22 gauge, 1 in length, 3/4 in length; Jose Alberto Rayo RN VAS; distraction, intradermal injection, tolerated well; 0; 08/22/21; 1044 Supraglottic Mask Ventilation: Not 08/19/21 1616 by 08/19/21 1728 by Attempted (0); LMA Type: Ines Harris Eric iGel; LMA Size: 4; N, SATISH M, ROUNDING MACHINE TENDER Inserted by: satish harris Lumbar/CSF Drain 08/19/21; 1652; Right; 08/19/21 1652 by 2 0000 by abdomen; collapsible Chani Carballo, RN Alona, Jose Alberto Mendez RN closed device; 09/03/21 (removed by ) documented in this encounter Social History Tobacco [...] encounter OR Notes Anesthesia Postprocedure Evaluation - Hailey Pérez MD - 08/19/2021 7:30 PM EDT Department of Anesthesiology Post-procedure Note Patient: Jahaira Montgomery Procedure Summary Date: 08/19/21 Room / Location: [address] MAIN OR Anesthesia Start: 1605 Anesthesia Stop: 1750 Procedure: SECONDARY CLOSURE SURGICAL WOUND OR DEHISCENCE, EXTENSIVE OR COMPLICATED, TRUNK (WRVU 12.04) (Midline Abdomen) Diagnosis: (Abdominal wall wound) Surgeons: Jerod Frost MD Responsible Provider: Hailey Pérez MD Anesthesia Type: general ASA Status: 3 All Anesthesia Providers: Anesthesiologist: Hailey Pérez MD; Werner Paniagua MD ROUNDING MACHINE TENDER: Gabriel David CRNA; Ines Harris CRNA Vitals Value Taken Time BP 116/70 08/19/21 1930 Temp 36.4 ??C (97.5 ??F) 08/19/21 1900 Pulse 62 08/19/21 1941 Resp 16 08/19/21 194 SpO2 93 % 08/19/211952 Pain Level 9 08/19/211950 Vitals shown include unvalidated device data. Patient Location: PACU/[facility] Level of Consciousness: Conscious but Sleepy Pain Management: Pain Being Addressed PONV: None Cardiovascular Status: Hemodynamically Stable Respiratory Status: Stable Respiratory Status and Room Air Postoperative Fluid Status: Intravascular EUvolemia Possible Anesthetic Complications: NONE apparent at time of evaluation Final Primary Anesthesia Type: General (The anesthetic type performed was the same as planned.) Comments: Patient doing well. She is pleased they were able to close her abdomen. She is having somepain, which has been treated. She has had no desaturation events and is on RA. There was some concern for staining of the LMA upon removal (possible bile stain). However, there was no other evidence of aspiration. Hailey Pérez MD Anesthesia Preprocedure Evaluation - Werner Paniagua MD - 08/19/2021 2:37 PM EDT Pre-Anesthesia Evaluation for: Jahaira Montgomery a 61 y.o. female. Procedure(s): DEBRIDEMENT SKIN AND SUBCU, FIRST 20 SQ CM, ABDOMEN (WRVU 1.01) Patient Active Problem List Diagnosis Date Noted ??? Wound infection after surgery 08/12/2021 ??? [...] 27.9) performed by Miryam Wiley MD at [facility] MAIN OR ??? PRO COLONOSCOPY, DIAGNOSTIC N/A 08/18/2019 COLONOSCOPY, DIAGNOSTIC performed by Emigdio Lanier MD at [facility] ENDOSCOPY ??? PRO CYSTOSCOPY, INSERT URETERAL STENT Right 09/14/2019 CYSTO, STENT PLACEMENT INTRAOP, TEMPORARY (WRVU 2.82) performed by Werner Fournier MD at [facility] MAIN OR ? ? PRO DEBRIDEMENT MUSCLE AND FASCIA 20 SQ CM/< Midline 08/15/2021 DEBRIDEMENT SKIN, SUBCU, MUSCLE, ABDOMEN (WRVU 2.7) performed by Gabriel Daniel MD at [facility] MAIN OR ? ? PRO DEBRIDEMENT SUBCUTANEOUS TISSUE 20 SQCM/< Midline 08/17/2021 DEBRIDEMENT SKIN AND SUBCU, FIRST 20 SQ CM, ABDOMEN (WRVU 1.01) performed by Negro Watters MD [facility] OR ??? PRO EXPLORATORY OF ABDOMEN N/A 04/25/2020 @EXPLORATORY LAPAROTOMY, WITH/WITHOUT BIOPSY(S) (WRVU 12.54) performed by Jerod Frost MD at [facility] MAIN OR ??? PRO IMPLANT MESH HERNIA REPAIR/DEBRIDEMENT CLOSURE N/A 2021 IMPLANT MESH FOR INCISIONAL OR VENTRAL HERNIA REPAIR (WRVU 4.88) performed by Negro Watters MD at [facility] OR ??? PRO INCISION AND DRAINAGE ABSCESS SIMPLE/SINGLE N/A 08/12/2021 I & D ABSCESS, SIMPLE OR SINGLE, TRUNK (WRVU 1.22) performed by Joshua Che MD at [facility] OR ??? PRO MOBILIZE SPLENIC FLEX N/A 09/14/2019 @MOBILIZATION OF SPLENIC FLEXURE (WRVU 2.23) performed by Miryam Wiley MD at [facility] OR ??? PRO OMENTAL FLAP, INTRA-ABDOMINAL 09/14/2019 @OMENTAL FLAP, INTRA-ABDOMINAL (WRVU 6.54) performed by Miryam Wiley MD at [facility] OR ??? PRO REPAIR RECURR INCIS HERNIA, DEONTE N/A 04/25/2020 HERNIA REPAIR, VENTRAL OR INCISIONAL, RECURRENT, INCARCERATED (WRVU 15.53) performed by Jerod Frost MD at [facility] OR ??? PRO REPAIR RECURR INCIS HERNIA, DEONTE Left 04/25/2021 HERNIA REPAIR, VENTRAL OR INCISIONAL, RECURRENT, INCARCERATED (WRVU 15.53) performed by Loco White MD at [facility] OR ??? PRO REPAIR RECURR INCIS HERNIA, DEONTE N/A 2021 HERNIA REPAIR, VENTRAL OR INCISIONAL, RECURRENT, INCARCERATED (WRVU 15.53) performed by Negro Watters MD at [facility] OR ??? PRO SIGMOIDOSCOPY, DIAGNOSTIC N/A 09/14/2019 SIGMOIDOSCOPY, FLEXIBLE W/WO SPECIMEN BY BRUSHING OR WASHING (WRVU 0.84) performed by Miryam Wiley MD at [facility] MAIN OR ??? TUBAL LIGATION Social History Tobacco Use ??? Smoking status: Current Every Day Smoker Packs/day: 0.50 Years: 40.00 Pack years: 20.00 Types: Cigarettes ??? Smokeless tobacco: Never Used Substance Use Topics ??? Alcohol use: Never Comment: almost 20 years Social History Substance and Sexual Activity Drug Use Never No Known Allergies Medications: MAR and/or home medications have been reviewed. Physical Exam: Preprocedure Vitals Current as of 08/19/21 1437 BP: 154/82 Pulse: Resp: 16 SpO2: 93 Temp: 36.4 ??C (97.5 ??F) Height: 149.9 cm (4' 11) (08/12/21) Weight: 104.3 kg (230 lb) (08/12/21) BMI: 46.45 IBW: 39.1 kg (86 lb 3.6 oz) Last edited 08/19/21 1153 by [place]AS[place] Airway Assessment: Mallampati: II TM distance: >3 FB Neck ROM: full Proven #4 igel and easy intubation. Cardiovascular Assessment: Rhythm: regular Pulmonary Assessment: unlabored breathing Dental Assessment: - normal exam Misc Assessment: IV access: Peripheral line Other exam findings: #22 right forearm Last Filed Perioperative Cognitive Screening None Anesthesia Plan: ASA 3 general, with a(n) intravenous induction 61 y.o. female BMI 47 presenting for Recurrent I&D of abdominal wound. For wound closure today. Last I&D 08/17/21 without issue. Patient is NPO. PMH significant for HTN, current 25pyr smoker. ADR: No Known Allergies Anesthesia Hx: Numerous Gas, G1v Mac 3, igel 4 Plan GA w/SGA Standard ASA monitors Region - Other Informed Consent: Anesthetic plan and risks discussed with patient. Use of blood products discussed with patient who consented to blood products. Plan discussed with ROUNDING MACHINE TENDER. Anesthesia Screening documented in this encounter Plan of Treatment Upcoming Encounters Date Type Specialty Care Team Description 09/30/2021 Office Visit General Surgery Paloma Mota, CIRCULATION ASSISTANT [facility] GENERAL SURGERY [place], [place] [address] (Wo rk) 09/30/2021 Office Visit Infectious Diseases Werner aHrrell MD [facility] INFECTIOUS [place], [place] [address] (Wo rk) documented as of this encounter Visit Diagnoses Not on filedocumented in this encounter Administered Medications Inactive Administered Medications - up to 3 most recent administrations Medication Order MAR Action Action Date Dose Rate Site dexAMETHasone (Decadron) injection Given 08/19/2021 4:37 PM EDT 4 mg Intravenous, PRN, Starting on Thu08/19/21 at 1637, Until Thu08/19/21 at 1751, Anesthesia Intra-op, Routine ePHEDrine sulfate (5 mg/mL) multi-dose Given 08/19/2021 4:49 PM EDT 10 mg injection Intravenous, PRN, Starting on Thu08/19/21 at 1633, Until Thu08/19/21 at 1751, Anesthesia Intra-op, Routine Given 08/19/2021 4:33 PM EDT 10 mg fentaNYL (pf) (50 mcg/mL) multi-dose Given 08/19/2021 4:37 PM ED T 50 mcg injection Intravenous, PRN, Starting on Thu08/19/21 at 1635, Until Thu08/19/21 at 1751, Anesthesia Intra-op, Routine Given 08/19/2021 4:35 PM EDT 50 mcg lactated ringers infusion New Bag 08/19/2021 4:05 PM EDT Intravenous, CONTINUOUS PRN, Starting on Thu08/19/21 at 1605, Until Thu08/19/21 at 1751, Anesthesia Intra-op ondansetron (pf) (Zofran) (2 mg/mL) inje ction Given 08/19/2021 5:03 PM EDT 4 mg Intravenous, PRN, Starting on Thu08/19/21 at 1703, Until Thu08/19/21 at 1751, Anesthesia Intra-op, Routine propofoL (Diprivan) 10 mg/mL bolus injection Given 08/2021 4:33 PM EDT 100 mg (Anesthesia) Intravenous, PRN, Starting on Thu08/19/21 at 1619, Until Thu08/19/21 at 1751, Anesthesia Intra-op Given 08/19/2021 4:19 PM EDT 100 mg Given 08/19/2021 4:15 PM EDT 200 mg documented in this encounter Care Teams Kiln Furniture Caster Relationship Specialty Start Date End Date Ally Ortiz APRN PCP - General Internal Medicine 04/24/[address] [place] [address] documented as of this encounter
--- OUTSIDE RECORDS SUMMARY | 2021-09-27 14:50 | XMS_ITS | Encounter Summary ---
:1960 Author Organization [facility] [place] [address] Care Team Providers Name Role Phone Ally Ortiz APRN Primary Care Provider Encounter Details Date Type Department Care Team Description 09/02/2021 Telephone General Surgery at [facility] Hanane Moralez, [place] [address] Social History Tobacco Use Types Packs/Day [...] encounter Miscellaneous Notes Telephone Encounter - Hanane Moralez RN - 09/02/2021 1:50 PM EDT Nursing Triage - Phone Note CALLER: Pt to the general surgery clinic nurses line; RN to the patient Learning Needs Assessment Reviewed: Yes CHIEF COMPLAINT:pain and drainage SUBJECTIVE- I am supposed to come tomorrow to have my stitches out but I am having bad pains and leakage again PERTINENT PAST SURGICAL HISTORY: pt admitted on 08/12/2021 for abdominal wall abscess. most recently??s/p??ventral??hernia repair with??Ovitex on- lay??mesh??with 2 supra-mesh drains??07/23/[address] Watters, The left drain was pulled prior to discharge, and the right drain was pulled in clinic 08/07 at [facility] time the shelley were also removed. She complained of pain during that clinic visit and was sent to the ED for further evaluation where CT scan showed a 9cm collection ventral to the mesh containing a fair amount of gas c/f possible abscess. However, the wound appeared to be healing well, and theair was thought to be related to the GEE that was removed that day since the eyelet was well outside the body, so she was discharged home. ?? She again presented to the ED today with intense pain around her incision and purulent drainage She is s/p multiple trips to the OR and ultimately wound closure on 08/20/21. NURSING ASSESSMENT: Pt calling about above. She states that the drainage started last night. She states that it is creamy color and the GEE drain output that was serosanguinous is now also the creamy colored drainage. She states that the drainage is coming from the middle of her incision, but she can'tsee it to tell if it is red. She denies fevers or chills. She states that the pain is on her left side again. She describes it as being very sharp and very stabbing. She has been taking the antibioticsas prescribed. She rates her pain at 15/10 most of the time. She has been taking advil for the pain with little to no relief. INTERVENTION/PLAN/ FOLLOW UP:Will discuss with the team and get back to the patient with a plan. Pt agrees with this plan. Discussed with Paloma Mota APRN. Given the pt's pain level and the change to purulent drainage, she would like the patient to go be assessed, either at her local ED or here. She feels the patient most likely needs to be scanned and needs assistance to get her pain under control, which we cannot do here in clinic. Pt states that she is being brought to our ED. Disposition: Pt to go the the ED for assessment/evaluation. Teaching:I reviewed the signs and symptoms of infection (fever of 101, spreading redness that is hotto the touch, purulent drainage, severe persistent pain) and instructed the patient to continue to monitor. See above. Patient able to verbalize teaching plan: Y Worsening symptoms:If you develop fever of 101, spreading redness, purulent drainage, severe prolonged pain, prolonged nausea and vomiting, please call ([phone] during daytime and [phone] at night/weekends) and/or go to the ED for evaluation. If you are bleeding and cannot get it to stop, have chest pain or breathing difficulties please go to the closest ED or call 911 for assistance. Patient able to verbalize worsening symptom plan: Y Resource in decision making: Paloma Mota APRN PCP: Ally Ortiz APRN documented in this encounter Plan of Treatment Upcoming Encounters Date Type Specialty Care Team Description 09/30/2021 Office Visit General Surgery Paloma Mota APRN [facility] GENERAL SURGERY [place], [place] [address] (Wo rk) 09/30/2021 Office Visit Infectious Diseases Werner Harrell MD [facility] INFECTIOUS [place], [place] [address] (Wo rk) documented as of this encounter Visit Diagnoses Not on filedocumented in this encounter Care Teams Bench Manager Relationship Specialty Start Date End Date Ally Ortiz APRN PCP - General Internal Medicine 04/24/21 [facility] [place] [address] [place] [address] documented as of this encounter
--- OUTSIDE RECORDS SUMMARY | 2021-09-27 14:50 | XMS_ITS | Encounter Summary ---
:1960 Author Organization [facility] Address [facility] [place] [address] Care Team Providers Name Role Phone Diana Allyjudy Hernandez APRN Primary Care Provider Encounter Details Date Type Department Care Team Description 09/11/2021 Anesthesia Event 3 [facility] MD Karen [facility] [address] Wheeler [place] [address] [place] [address] [phone] (Wo rk) Anesthesia Record Procedure Summary Procedure Name Responsible Anesthesia Start Anesthesia Stop Time Anesthesiologist Time Acute Pain Service (consult) Events No events on file. No medications on file. Agents No agents on file. Blood No blood administrations on file. Lines, Drains, and Airways No LDAs on file. documented in this encounter Social History Tobacco [...] as of this encounter Plan of Treatment Upcoming Encounters Date Type Specialty Care Team Description 09/30/2021 Office Visit General Surgery Paloma Mota APRN [facility] GENERAL SURGERY [place], [place] [address] (Wo rk) 09/30/2021 Office Visit Infectious Diseases Werner Harrell MD [facility] ER INFECTIOUS [place], [place] [address] (Wo rk) documented as of this encounter Visit Diagnoses Not on filedocumented in this encounter Care Teams Utility Porter Relationship Specialty Start Date End Date Ally Ortiz APRN PCP - General Internal Medicine 04/24/[address] [place] [address] documented as of this encounter
--- OUTSIDE RECORDS SUMMARY | 2021-09-27 14:51 | XMS_ITS | Encounter Summary ---
:1960 [place] [address] Care Team Providers Name Role Phone DianaAlly Mary MUNOZ Primary Care Provider Reason for Visit Auth/Cert Specialty Diagnoses / Procedures Referred By Contact Refer red To Contact Diagnoses Wound infection after surgery Procedures ER IPI Referral ID Status Reason Start Date Expiration Date Visits Requ ested Visits Authorized [id number] 1 1 Encounter Details Date Type Department Care Team Description 08/17/2021 Anesthesia Event Main Operating Room Violet Henry MD [facility] [place] [address] [facility] Saranya Morgan MD [facility] [address] ANESTHESIOLOGY [place] [address] [place] [address] Anesthesia Record Procedure Summary Procedure Name Responsible Anesthesia Start Anesthesia Stop Anesthesiologist Time Time DEBRIDEMENT SKIN AND Joan Lepe MD 08/17/21 1143 08/17/21 12 20 SUBCU, FIRST 20 SQ CM, ABDOMEN (WRVU 1.01) (Midline Abdomen) Events Date Time Event Comment 08/17/2021 1058 1143 AN Verify 1143 Start 1143 An Start Data 1145 An Induction 1146 An Intubation 1147 Anesthesia Ready 1217 Extubation/LMA Out 1219 an stop data 1220 Recovery or ICU Handoff Patient care was transferred to the destination unit staff after review of the patient's medica l history, current anesthetic/surgi mary grace status and plan, according to the Provider Handoff Checklist. 1220 Stop Name Total Midazolam 2 mg fentaNYL 100 mcg Propofol 150 mg Propofol INF 365.05 mg Agents Name O2 Air N2O Sevoflurane (et) Blood No blood administrations on file. Lines, Drains, and Airways Type Details Placement Removal Incision 07/23/21; 1511; midline, 07/23/21 1511 by anterior; abdomen; Nikos Avila RN vertical NPWT 08/12/21; 1926; midline; 08/12/21 1926 by Hernán, 0 08/19/21 1703 by abdomen; 08/19/21; 1703 GENA Hall Sarah B, RN PIV 08/13/21; 0745; basilic 08/13/21 0745 by Noe, 08/18/21 0740 by vein (medial side of arm), GENA Perez Joshua M, RN left; [id number] catheter system; Ultrasound Guidance; Yes - US guidance used but Image NOT saved; 22 gauge, 3/4 in length; krysten jin rn, vas; distraction, tolerated well, complained of discomfort; 0; IV painful to flush; removed per policy/procedure, site care per policy/procedure, catheter/device intact; 08/18/21; 0740 Supraglottic Mask Ventilation: Not 08/17/21 1151 by Roberth, 07/05 1217 by Roberth, Attempted (0); LMA Type: MD Joan Franco M D iGel; LMA Size: 4 documented in this encounter Social History Tobacco [...] encounter OR Notes Anesthesia Postprocedure Evaluation - Joan Lepe MD - 08/17/2021 1:54 PM EDT Department of Anesthesiology Post-procedure Note Patient: Jahaira Montgomery Procedure Summary Date: 08/17/21 Room / Location: [facility] OR [address] [place] [address] MAIN OR Anesthesia Start: 1143 Anesthesia Stop: 1220 Procedures: DEBRIDEMENT SKIN AND SUBCU, FIRST 20 SQ CM, ABDOMEN (WRVU 1.01) (Midline Abdomen) MODIFIER WOUND VAC (N/A Abdomen) Diagnosis: (Abdominal wall wound) Surgeons: Negro Watters MD Responsible Provider: Joan Lepe MD Anesthesia Type: general ASA Status: 3 All Anesthesia Providers: Anesthesiologist: Joan Lepe MD Vitals Value Taken Time BP 114/93 08/17/21 1330 Temp 37.1 ??C (98.8 ??F) 08/17/21 1222 Pulse 57 08/17/21 1336 Resp 13 08/17/21 1336 SpO2 89 % 08/17/21 1341 Pain Level Vitals shown include unvalidated device data. Patient Location: PACU/[facility] Level of Consciousness: Conscious but Sleepy Pain Management: Satisfactory Analgesia PONV: None Cardiovascular Status: At Baseline and Hemodynamically Stable Respiratory Status: At Baseline and Supplemental O2 (NC or FM) Postoperative Fluid Status: Intravascular EUvolemia Possible Anesthetic Complications: NONE apparent at time of evaluation Final Primary Anesthesia Type: General (The anesthetic type performed was the same as planned.) Comments: Joan Lepe MD Anesthesia Preprocedure Evaluation - Joan Lepe MD - 08/17/2021 7:19 AM EDT Pre-Anesthesia Evaluation for: Jahaira Montgomery a [...] 27.9) performed by Miryam Wiley MD at [facility] OR ??? PRO COLONOSCOPY, DIAGNOSTIC N/A 08/18/2019 COLONOSCOPY, DIAGNOSTIC performed by Emigdio Lanier MD at [facility] ENDOSCOPY ??? PRO CYSTOSCOPY, INSERT URETERAL STENT Right 09/14/2019 CYSTO, STENT PLACEMENT INTRAOP, TEMPORARY (WRVU 2.82) performed by Werner Fournier MD at [facility] OR ? ? PRO DEBRIDEMENT MUSCLE AND FASCIA 20 SQ CM/< Midline 08/15/2021 DEBRIDEMENT SKIN, SUBCU, MUSCLE, ABDOMEN (WRVU 2.7) performed by Gabriel Daniel MD at [facility] OR ??? PRO EXPLORATORY OF ABDOMEN N/A 04/25/2020 @EXPLORATORY LAPAROTOMY, WITH/WITHOUT BIOPSY(S) (WRVU 12.54) performed by Jerod Frost MD at [facility] OR ??? PRO IMPLANT MESH HERNIA REPAIR/DEBRIDEMENT CLOSURE N/A 2021 IMPLANT MESH FOR INCISIONAL OR VENTRAL HERNIA REPAIR (WRVU 4.88) performed by Negro Watters MD at [facility] OR ??? PRO INCISION AND DRAINAGE ABSCESS SIMPLE/SINGLE N/A 08/12/2021 I & D ABSCESS, SIMPLE OR SINGLE, TRUNK (WRVU 1.22) performed by Joshua Che MD at [facility] OR ??? PRO MOBILIZE SPLENIC FLEX N/A 09/14/2019 @MOBILIZATION OF SPLENIC FLEXURE (WRVU 2.23) performed by Miryam Wiley MD at [facility] OR ??? PRO OMENTAL FLAP, INTRA-ABDOMINAL 09/14/2019 @OMENTAL FLAP, INTRA-ABDOMINAL (WRVU 6.54) performed by Miryam Wiley MD at [facility] OR ??? PRO REPAIR RECURR INCIS HERNIA, DEONTE N/A 04/25/2020 HERNIA REPAIR, VENTRAL OR INCISIONAL, RECURRENT, INCARCERATED (WRVU 15.53) performed by Jerod Frost MD at [facility] MAIN OR ??? PRO REPAIR RECURR INCIS HERNIA, DEONTE Left 04/25/2021 HERNIA REPAIR, VENTRAL OR INCISIONAL, RECURRENT, INCARCERATED (WRVU 15.53) performed by Loco White MD at [facility] MAIN OR ??? PRO REPAIR RECURR INCIS HERNIA, DEONTE N/A 2021 HERNIA REPAIR, VENTRAL OR INCISIONAL, RECURRENT, INCARCERATED (WRVU 15.53) performed by Negro Watters MD at [facility] MAIN OR ??? PRO SIGMOIDOSCOPY, DIAGNOSTIC N/A 09/14/2019 SIGMOIDOSCOPY, FLEXIBLE W/WO SPECIMEN BY BRUSHING OR WASHING (WRVU 0.84) performed by Miryam Wiley MD at [facility] MAIN OR ??? TUBAL LIGATION Social History [...] Physical Exam: Preprocedure Vitals Current as of 08/17/21 0719 BP: 154/76 Pulse: Resp: 18 SpO2: 95 Temp: 36.4 ??C (97.5 ??F) Height: 149.9 cm (4' 11) (08/12/21) Weight: 104.3 kg (230 lb) (08/12/21) BMI: 46.45 IBW: 39.1 kg (86 lb 3.6 oz) Last edited 08/17/21 0413 by ZG Airway Assessment: Mallampati: II TM distance: >3 FB Neck ROM: full Cardiovascular Assessment: Rhythm: regular Rate: normal system normal Pulmonary Assessment: unlabored breathing pulmonary exam normal Dental Assessment: - normal exam Misc Assessment: Last Filed Perioperative Cognitive Screening None Anesthesia Plan: ASA 3 general, with a(n) intravenous induction 61 y.o. female BMI 47 presenting for Recurrent I&D of abdominal wound Last I&D 08/15/21 without issue PMH significant for HTN, current 25pyr smoker, T2DM ADR: No Known Allergies Anesthesia Hx: Numerous Gas, G1v Mac 3, igel 4 Plan GA w/SGA Standard ASA monitors Region - Other Informed Consent: Anesthetic plan and risks discussed with patient. Use of blood products discussed with patient who consented to blood products. Plan discussed with attending. Anesthesia Screening documented in this encounter Plan of Treatment Upcoming Encounters Date Type Specialty Care Team Description 09/30/2021 Office Visit General Surgery Paloma Mota, [employer] [facility] ER GENERAL SURGERY [place], [place] [address] (Wo rk) 09/30/2021 Office Visit Infectious Diseases Werner Harrell MD [facility] INFECT[facility]OUS [facility], [place] [address] (Wo rk) documented as of this encounter Visit Diagnoses Not on filedocumented in this encounter Administered Medications Inactive Administered Medications - up to 3 most recent administrations Medication Order MAR Action Action Date Dose Rate Site fentaNYL (pf) (50 mcg/mL) Given 08/17/2021 12:05 PM EDT 50 mcg multi-dose injection Intravenous, PRN, Starting on 08/17/21 at 1153, Until 08/17/21 at 1321, Anesthesia Intra-op, Routine Given 08/17/2021 11:53 AM EDT 50 mcg midazolam (pf) (Versed) (1 mg/mL) multi-dose Given 11:43 AM EDT 2 mg injection Intravenous, PRN, Starting on 08/17/21 at 1143, Until 08/17/21 at 1321, Anesthesia Intra-op, Routine propofoL (Diprivan) (10 Rate/Dose 08/17/2021 12:12 50 mcg/kg/min 31. 29 mg/mL) infusion Change PM EDT mL/hr Intravenous, CONTINUOUS PRN, Starting on 08/17/21 at 1145, Until 08/17/21 at 1321, Anesthesia Intra-op, Routine Rate/Dose Change 08/17/2021 12:06 PM EDT 100 mcg/kg/min 62.58 mL/hr Rate/Dose Change 08/17/2021 11:54 AM EDT 150 mcg/kg/min 93.87 mL/hr propofoL (Diprivan) 10 mg/mL bolus injection Given 06/2021 11:46 AM EDT 50 mg (Anesthesia) Intravenous, PRN, Starting on 08/17/21 at 1145, Until 08/17/21 at 1321, Anesthesia Intra-op Given 08/17/2021 11:45 AM EDT 100 mg documented in this encounter Care Teams Credit And Collections Analyst Relationship Specialty Start Date End Date Ally Ortiz APRN PCP - General Internal Medicine 04/24/[address] [place] [address] documented as of this encounter
--- OUTSIDE RECORDS SUMMARY | 2021-09-27 14:51 | XMS_ITS | Encounter Summary ---
:1960 Author Organization [place] [address] Care Team Providers Name Role Phone Ally Ortiz APRN Primary Care Provider Reason for Visit Reason Comments Post-op Problem Auth/Cert Specialty Diagnoses / Procedures Referred By Contact Refer red To Contact Diagnoses Wound infection after surgery Procedures ER IPI Referral ID Status Reason Start Date Expiration Date Visits Requ ested Visits Authorized [id number] 1 1 Encounter Details Date Type Department Care Team Description 08/19/2021 Surgery Main Operating Room Gurdeep Swann MD SECONDARY CLOSURE [facility] SURGICAL WOUND OR Hospital SHAYE ROSARIO [facility] GENERAL SURGE RY OR COMPLICATED, [place] [address] (WRU 02.16) [place] [address] [phone] Social History Tobacco Use Types Packs/Day Years [...] Sign Reading Time Taken Comments Blood Pressure 154/82 08/19/2021 11:53 AM EDT Pulse 58 08/18/2021 12:00 PM EDT Temperature 36.4 ??C (97.5 ??F) 08/19/2021 11:53 AM EDT Respiratory Rate 16 08/19/2021 11:53 AM EDT Oxygen Saturation 93% 08/19/2021 11:53 AM EDT Inhaled Oxygen Concentration - - [...] (WRVU 12.04) (Midline) Operative findings: 08/12/2021 - [id number] abscess of abdominal wall over mesh. - [...] One white sponge and one black sponge placed.??[id number] wound.?? 08/17/2021 -22 x 14 x 4 [...] symptoms. Hospital Course: Ms. Montgomery presented the [facility] emergency department and subsequently seen by the [...] Procedure Component Value Units Date/Time COVID-19 PCR [[id number]] Collected: 08/15/21 1531 Lab Status: Final result Specimen: Nasopharyngeal Swab Updated: 08/16/21 025 SARS-CoV-2 RNA Not Detected Comment: This result [...] diagnosis of COVID-19 is performed using the Tufinni[employer] m SARS-CoV-2 Assay as authorized by the FDA Emergency Use Authorization (EUA). This EUA assay is intended for In-vitro Diagnostic (IVD) use with respiratory specimens such as nasopharyngeal swabs collected from individuals during the acute phase of infection. This assay is performed based on the instructions for use provided by [facility] and additional guidance provided by CDC and FDA. Testing is performed in the [facility] Laboratory within the Department of Pathology and Laboratory Medicine at [facility], certified under the Clinical Laboratory Improvement Amendments [...] fact sheets at the following FDA website: https://www.fda.gov/medical-devices/xbquaraonwi-rzuuwuk-7582-yogbl-45-fxcarnrki- izd-bskhnsumlcmbiy-fwurcpc-devices/alqnr-leyuxtazsfa-vaca SARS-Cov-2 RNA Source CAN COVERER Swab Body Fluid Culture, Aerobic & Anaerobic Abdominal Fluid [[id number]] (Abnormal) Collected: 08/12/211948 Lab Status: Final result Specimen: Abdominal Fluid Updated: 08/16/21 1551 Tissue Culture, Aerobic & Anaerobic Stomach [[id number]] (Abnormal) Collected: 08/12/211948 Lab Status: Final result Specimen: Stomach Updated: 08/20/21 1236 Body Fluid Culture, Aerobic [[id number]] (Abnormal) Collected: 08/12/211948 Lab Status: Final result Specimen: Abdominal Fluid Updated: 08/16/21 1319 Body Fluid Culture -- Moderate mixed Gram Positive organisms including Coagulase negative Staphylococcus species Susceptibilities previously reported Gram Stain -- Cytocentrifuge Gram Stain performed Neutrophils seen Many Gram Positive Cocci seen Results called to and read back by Dilip rojas 08/12/21 22:08:54 WS Anaerobic Culture [[id number]] Collected: 08/12/211948 Lab Status: Final result Specimen: Abdominal Fluid Updated: 08/16/21 1551 Anaerobic Culture No anaerobic organisms isolated Tissue culture [[id number]] (Abnormal) (Susceptibility) Collected: 08/12/211948 Lab Status: Final [...] Sensitive [1] Gentamicin is not appropriate for Perkins-therapy. Linear View Anaerobic Culture [[id number]] (Abnormal) (Susceptibility) Collected: 08/12/21 1949 Lab Status: Final result Specimen: Stomach Updated: 08/18/21 1355 Anaerobic Culture Moderate Finegoldia magna Susceptibility Finegoldia magna MINIMUM INHIBITORY CONCENTRATION Metronidazole Sensitive Penicillin Sensitive Linear View COVID-19 PCR [[id number]] Collected: 08/12/21 1602 Lab Status: Final result [...] using the Simplexa COVID-19 Direct Assay by Wenwo as authorized by the FDA issued Emergency [...] Department of Pathology and Laboratory Medicine at [facility], certified under the Clinical Laboratory Improvement Amendments [...] fact sheets at the following FDA website: https://www.fda.gov/medical-devices/cvavsrjoxgz-wdulrtd-3116-socnk-12-lhvvgkyns- und-zjihfgoqybfljw-gzrtfzt-devices/vvpqk-awzgugwyqvu-nwvb SARS-CoV-2 Source CAN COVERER Swab Abscess/Wound Asp Culture, Aerobic and Anaerobic Deep Wound; Abdomen [[id number]] Collected: 07/23/211536 Lab Status: Final result Specimen: Deep Wound from Abdomen Updated: 07/27/21 1340 Abscess/Wound Aspirate Culture [[id number]] Collected: 07/23/211536 Lab Status: Final result Specimen: Deep Wound from Abdomen Updated: 07/27/21 1029 Abscess/Wound Aspirate Culture -- Normal cutaneous tania isolated from broth culture. No growth on original plates. Gram Stain -- Few Neutrophils seen No microorganisms seen. Anaerobic Culture [[id number]] Collected: 07/23/211536 Lab Status: Final result Specimen: [...] who have questions please contact the health physician locums urgent care that requested your imaging first. Discharge Physical [...] Center 09/03/2021 10:30 AM Paloma Mota APRN [facility] SUR[facility] 09/30/2021 1:30 PM Werner Harrell MD [facility] ID 5C [facility] Outpatient Services/Studies: Referral to Home Health Referral Priority: Routine Referral Type: Home Health Care Referral Reason: Consult, Test & Treat Referred to Provider: [facility] Number of Visits Requested: 999 Special Instructions Given to Patient at Discharge:. An After Visit Summary was printed and given to the patient. Patient Instructions [facility] Department of General Surgery Discharge Instructions [...] with the Surgery nurses. The number is [phone]. - During the night or weekends call the [facility] gas processing plant operator at [phone] and ask to speak to the surgery resident soft iron inspector for general surgery. Please note: Your surgeon may not be Ballistic Technician, especially during the night or on weekends, [...] Center 09/03/2021 10:30 AM Paloma Mota APRN [facility] SUR[facility] 09/30/2021 1:30 PM Werner Harrell MD [facility] ID 5C [facility] [x] Follow-up appointment with General Surgery has already been scheduled [] A request for a follow-up appointment has been made and you should receive information via phone/mail in the next week. If you do not hear anything, please call the clinic at [phone] to confirmor reschedule. If you need a prior authorization, please call the General Surgery Clinic nurses [phone] for prior authorizations assistance General Instructions None Your care was managed by the Trauma and Acute Care Surgery Team at [facility]. If you have any questions or concerns, please feel free to contact us. Provider Contact Information: General Surgery Scheduling: Nurses line for questions: [facility] (after business hours): CC: Ally Ortiz APRN Noelle Gurjit Mota APRN Signed: Rosmery Moreno MD Department of Surgery 08/22/2021 Acute Care Surgery Pager [phone] documented in this encounter Discharge Instructions Patient InstructionsRosmery Moreno MD - 08/22/2021 8:54 AM EDT [facility] Department of General Surgery Discharge Instructions [...] with the Surgery nurses. The number is [phone]. - During the night or weekends call the [facility] gas processing plant operator at [phone] and ask to speak to the surgery resident soft iron inspector for general surgery. Please note: Your surgeon may not be Ballistic Technician, especially during the night or on weekends, [...] Center 09/03/2021 10:30 AM Paloma Mota APRN [facility] SUR[facility] 09/30/2021 1:30 PM Werner Harrell MD [facility] ID 5C [facility] [x] Follow-up appointment with General Surgery has already been scheduled [] A request for a follow-up appointment has been made and you should receive information via phone/mail in the next week. If you do not hear anything, please call the clinic at [phone] to confirmor reschedule. If you need a prior authorization, please call the General Surgery Clinic nurses [phone] for prior authorizations assistance documented in this [...] WOUND OR DEHISCENCE, EXTENSIVE OR COMPLICATED, [facility] FOLLOW-UP NEEDED: Does pt need to f-u with surgeon or CAN COVERER (please indicate reason if attending provider): Yes, CAN COVERER How soon should TACS f/u be? 2 [...] abdominal wall hernia and wound vac change. 2: no changes 08/16: vac reinforced in the [...] Fluid Culture, Aerobic & Anaerobic Abdominal Fluid [[id number]] (Abnormal) Collected: 08/12/211948 Lab Status: Preliminary result Specimen: Abdominal Fluid Updated: 08/14/21 1059 Tissue Culture, Aerobic & Anaerobic Stomach [[id number]] (Abnormal) Collected: 08/12/211948 Lab Status: Preliminary result Specimen: Stomach Updated: 08/15/21 0949 Body Fluid Culture, Aerobic [[id number]] (Abnormal) Collected: 08/12/211948 Lab Status: Preliminary result Specimen: Abdominal Fluid Updated: 08/14/21 1059 Body Fluid Culture -- Moderate mixed Gram Positive organisms including Coagulase negative Staphylococcus species Gram Stain -- Cytocentrifuge Gram Stain performed Neutrophils seen Many Gram Positive Cocci seen Results called to and read back by Dilip rojas 08/12/21 22:08:54 WS Anaerobic Culture [[id number]] Collected: 08/12/211948 Lab Status: Preliminary result Specimen: Abdominal Fluid Updated: 08/13/21 1135 Anaerobic Culture No anaerobic organisms isolated to date Tissue culture [[id number]] (Abnormal) (Susceptibility) Collected: 08/12/211948 Lab Status: Preliminary [...] Sensitive [1] Gentamicin is not appropriate for Perkins-therapy. Linear View A/P: 61 year old female [...] Moreno MD 08/21/21 Acute Care Surgery Pager: [phone] Attending Addendum I have seen and examined [...] 27.9) performed by Miryam Wiley MD at [facility] MAIN OR ??? PRO COLONOSCOPY, DIAGNOSTIC N/A 08/18/2019 COLONOSCOPY, DIAGNOSTIC performed by Emigdio Lanier MD at [facility] ENDOSCOPY ??? PRO CYSTOSCOPY, INSERT URETERAL STENT Right 09/14/2019 CYSTO, STENT PLACEMENT INTRAOP, TEMPORARY (WRVU 2.82) performed by Werner Fournier MD at [facility] OR ? ? PRO DEBRIDEMENT MUSCLE AND FASCIA 20 SQ CM/< Midline 08/15/2021 DEBRIDEMENT SKIN, SUBCU, MUSCLE, ABDOMEN (WRVU 2.7) performed by Olya Daniel MD at [facility] OR ? ? PRO DEBRIDEMENT SUBCUTANEOUS TISSUE 20 SQCM/< Midline 08/17/2021 DEBRIDEMENT SKIN AND SUBCU, FIRST 20 SQ CM, ABDOMEN (WRVU 1.01) performed by Negro Watters MD [facility] OR ??? PRO EXPLORATION OF ABDOMEN N/A 04/25/2020 @EXPLORATORY LAPAROTOMY, WITH/WITHOUT BIOPSY(S) (WRVU 12.54) performed by Liberty Swann MD at [facility] OR ??? PRO IMPLANT MESH HERNIA REPAIR/DEBRIDEMENT CLOSURE N/A 2021 IMPLANT MESH FOR INCISIONAL OR VENTRAL HERNIA REPAIR (WRVU 4.88) performed by Negro Watters MD at [facility] OR ??? PRO INCISION AND DRAINAGE ABSCESS SIMPLE/SINGLE N/A 08/12/2021 I & D ABSCESS, SIMPLE OR SINGLE, TRUNK (WRVU 1.22) performed by Joshua Che MD at [facility] OR ??? PRO MOBILIZE SPLENIC FLEX N/A 09/14/2019 @MOBILIZATION OF SPLENIC FLEXURE (WRVU 2.23) performed by Miryam Wiley MD at [facility] OR ??? PRO OMENTAL FLAP, INTRA-ABDOMINAL 09/14/2019 @OMENTAL FLAP, INTRA-ABDOMINAL (WRVU 6.54) performed by Miryam Wiley MD at [facility] OR ??? PRO REPAIR RECURR INCIS HERNIA, DEONTE N/A 04/25/2020 HERNIA REPAIR, VENTRAL OR INCISIONAL, RECURRENT, INCARCERATED (WRVU 15.53) performed by Lbierty Swann MD at [facility] OR ??? PRO REPAIR RECURR INCIS HERNIA, DEONTE Left 04/25/2021 HERNIA REPAIR, VENTRAL OR INCISIONAL, RECURRENT, INCARCERATED (WRVU 15.53) performed by Loco White MD at [facility] OR ??? PRO REPAIR RECURR INCIS HERNIA, DEONTE N/A 2021 HERNIA REPAIR, VENTRAL OR INCISIONAL, RECURRENT, INCARCERATED (WRVU 15.53) performed by Negro Watters MD at [facility] MAIN OR ??? PRO SEC CLSR SURG WOUND/DEHSN EXTENSIVE/COMPLICATED Midline 08/19/2021 SECONDARY CLOSURE SURGICAL WOUND OR DEHISCENCE, EXTENSIVE OR COMPLICATED, TRUNK (WRVU 12.04) performed by Liberty Swann MD at [facility] MAIN OR ??? PRO SIGMOIDOSCOPY, DIAGNOSTIC N/A 09/14/2019 SIGMOIDOSCOPY, FLEXIBLE W/WO SPECIMEN BY BRUSHING OR WASHING (WRVU 0.84) performed by Miryam Wiley MD at [facility] MAIN OR ??? TUBAL LIGATION Social History: Home set up: pt lives in a large 2 level home with several family members. All needs met on the 1stlevel and there is a ramp at the entrance. Pt essentially has / supervision/assist available. Bathroom has a stall shower with grab bars. PLOF: Pt is independent with most ADLs; EMELIA assist with drying off after shower and occasional bathing if needed. Pt wears dresses and slip on shoes. Pt c/o difficulty with anything that requires bending but uses a brush material preparer for picking things up from the floor, a sock aid when she wears socks, and toilet bidet for BM hygiene. 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 Pt uses a rollator [...] WFL Vision & Perception: WNL/WFL corrective lenses yard jockey Communication/Hearing: WFL Musculoskeletal: Hand dominance: right Strength/AROM: [...] and measurable assessment of functional outcome. Pager: [phone] Patricia Rai OTR/L Occupational Therapy Rehabilitation Department Werner Harrell MD - 08/20/2021 6:40 PM EDT INFECTIOUS DISEASE FOLLOW-UP NOTE Patient ID: Jahaira Montgomery Room: [address] [place] [address] Active ID Issue(s): Abdominal SSTI infection involving [...] reviewed. No new imaging today Impression: Jahaira Montogmery is a 61 y.o.female with history of [...] do not hesitate to page ID RED [phone] with any questions or concerns. Werner Harrell MD Infectious Diseases Fellow Pager #: [phone] 08/20/2021 6:22 PM Associated attestation - Liberty Tracy MD - 08/21/2021 9:42 AM EDT I have seen and examined the patient and discussed the assessment and plan with the fellow. I reviewed the fellow's note and I agree with the documented findings and recommendations. Liberty Tracy MD ID Staff Physician Read, Porsha Emerson RN - 08/20/2021 2:52 PM EDT RN/CM has updated [employer] rep/[facility] and [facility]. Pt will NOT be discharged home with VAC in place. R. (Aris) GENA Santos RN/CM - Cellphone: [phone] Pager: [phone] Covering Service RN/CM Arvin Lacy, PT - 08/20/2021 1:15 PM EDT Physical Therapy Evaluation Patient profile: per MD note, Jahaira Montgomery??is a 61 y.o.??female??with tobacco [...] 27.9) performed by Miryam Wiley MD at [facility] MAIN OR ??? PRO COLONOSCOPY, DIAGNOSTIC N/A 08/18/2019 COLONOSCOPY, DIAGNOSTIC performed by Emigdio Lanier MD at [facility] ENDOSCOPY ??? PRO CYSTOSCOPY, INSERT URETERAL STENT Right 09/14/2019 CYSTO, STENT PLACEMENT INTRAOP, TEMPORARY (WRVU 2.82) performed by Werner Fournier MD at [facility] OR ? ? PRO DEBRIDEMENT MUSCLE AND FASCIA 20 SQ CM/< Midline 08/15/2021 DEBRIDEMENT SKIN, SUBCU, MUSCLE, ABDOMEN (WRVU 2.7) performed by Olya Daniel MD at [facility] OR ? ? PRO DEBRIDEMENT SUBCUTANEOUS TISSUE 20 SQCM/< Midline 08/17/2021 DEBRIDEMENT SKIN AND SUBCU, FIRST 20 SQ CM, ABDOMEN (WRVU 1.01) performed by Negro Watters MD [facility] OR ??? PRO EXPLORATORY OF ABDOMEN N/A 04/25/2020 @EXPLORATORY LAPAROTOMY, WITH/WITHOUT BIOPSY(S) (WRVU 12.54) performed by Liberty Swann MD at [facility] OR ??? PRO IMPLANT MESH HERNIA REPAIR/DEBRIDEMENT CLOSURE N/A 2021 IMPLANT MESH FOR INCISIONAL OR VENTRAL HERNIA REPAIR (WRVU 4.88) performed by Negro Watters MD at [facility] OR ??? PRO INCISION AND DRAINAGE ABSCESS SIMPLE/SINGLE N/A 08/12/2021 I & D ABSCESS, SIMPLE OR SINGLE, TRUNK (WRVU 1.22) performed by Joshua Che MD at [facility] OR ??? PRO MOBILIZE SPLENIC FLEX N/A 09/14/2019 @MOBILIZATION OF SPLENIC FLEXURE (WRVU 2.23) performed by Miryam Wiley MD at [facility] OR ??? PRO OMENTAL FLAP, INTRA-ABDOMINAL 09/14/2019 @OMENTAL FLAP, INTRA-ABDOMINAL (WRVU 6.54) performed by Miryam Wiley MD at [facility] OR ??? PRO REPAIR RECURR INCIS HERNIA, DEONTE N/A 04/25/2020 HERNIA REPAIR, VENTRAL OR INCISIONAL, RECURRENT, INCARCERATED (WRVU 15.53) performed by Liberty Swann MD at [facility] OR ??? PRO REPAIR RECURR INCIS HERNIA, DEONTE Left 04/25/2021 HERNIA REPAIR, VENTRAL OR INCISIONAL, RECURRENT, INCARCERATED (WRVU 15.53) performed by Loco White MD at [facility] OR ??? PRO REPAIR RECURR INCIS HERNIA, DEONTE N/A 2021 HERNIA REPAIR, VENTRAL OR INCISIONAL, RECURRENT, INCARCERATED (WRVU 15.53) performed by Negro Watters MD at [facility] OR ??? PRO SEC CLSR SURG WOUND/DEHSN EXTENSIVE/COMPLICATED Midline 08/19/2021 SECONDARY CLOSURE SURGICAL WOUND OR DEHISCENCE, EXTENSIVE OR COMPLICATED, TRUNK (WRVU 12.04) performed by Liberty Swann MD at [facility] OR ??? PRO SIGMOIDOSCOPY, DIAGNOSTIC N/A 09/14/2019 SIGMOIDOSCOPY, FLEXIBLE W/WO SPECIMEN BY BRUSHING OR WASHING (WRVU 0.84) performed by Miryam Wiley MD at [facility] OR ??? TUBAL LIGATION Social History: Pt [...] in this evaluation. Time IN / OUT: 3595-7280 Total Minutes, Physical Therapy: 15 Billing Code: Swetha Lacy, PT Pager: [phone] Physical Therapy Inpatient Rehabilitation Department Ai Cunningham MD - 08/20/2021 11:05 AM EDT Images [...] Fluid Culture, Aerobic & Anaerobic Abdominal Fluid [[id number]] (Abnormal) Collected: 08/12/211948 Lab Status: Preliminary result Specimen: Abdominal Fluid Updated: 08/14/21 1059 Tissue Culture, Aerobic & Anaerobic Stomach [[id number]] (Abnormal) Collected: 08/12/211948 Lab Status: Preliminary result Specimen: Stomach Updated: 08/15/21 0949 Body Fluid Culture, Aerobic [[id number]] (Abnormal) Collected: 08/12/211948 Lab Status: Preliminary result Specimen: Abdominal Fluid Updated: 08/14/21 1059 Body Fluid Culture -- Moderate mixed Gram Positive organisms including Coagulase negative Staphylococcus species Gram Stain -- Cytocentrifuge Gram Stain performed Neutrophils seen Many Gram Positive Cocci seen Results called to and read back by Dilip rojas 08/12/21 22:08:54 WS Anaerobic Culture [[id number]] Collected: 08/12/211948 Lab Status: Preliminary result Specimen: Abdominal Fluid Updated: 08/13/21 1135 Anaerobic Culture No anaerobic organisms isolated to date Tissue culture [[id number]] (Abnormal) (Susceptibility) Collected: 08/12/211948 Lab Status: Preliminary [...] Sensitive [1] Gentamicin is not appropriate for Perkins-therapy. Linear View A/P: 61 year old female [...] SSI HEME: DVT ppx with lovenox ID: dale Arias MSK: RADHA PPX: PPI, IS, SCDs LINES: PIV DISPO: Floor status, Attempt Cardiopulmonary Resuscitation - Inpatient Rosmery Moreno MD 08/20/21 Acute Care Surgery Pager: [phone] Attending Addendum I have seen and examined [...] Clarissa. Patient resting with eyes closed. VSS. 1939 - Report called to GENA Bennett. Nadir [...] Fluid Culture, Aerobic & Anaerobic Abdominal Fluid [[id number]] (Abnormal) Collected: 08/12/211948 Lab Status: Preliminary result Specimen: Abdominal Fluid Updated: 08/14/21 1059 Tissue Culture, Aerobic & Anaerobic Stomach [[id number]] (Abnormal) Collected: 08/12/211948 Lab Status: Preliminary result Specimen: Stomach Updated: 08/15/21 0949 Body Fluid Culture, Aerobic [[id number]] (Abnormal) Collected: 08/12/211948 Lab Status: Preliminary result Specimen: Abdominal Fluid Updated: 08/14/21 1059 Body Fluid Culture -- Moderate mixed Gram Positive organisms including Coagulase negative Staphylococcus species Gram Stain -- Cytocentrifuge Gram Stain performed Neutrophils seen Many Gram Positive Cocci seen Results called to and read back by Dilip rojas 08/12/21 22:08:54 WS Anaerobic Culture [[id number]] Collected: 08/12/211948 Lab Status: Preliminary result Specimen: Abdominal Fluid Updated: 08/13/21 1135 Anaerobic Culture No anaerobic organisms isolated to date Tissue culture [[id number]] (Abnormal) (Susceptibility) Collected: 08/12/211948 Lab Status: Preliminary [...] Sensitive [1] Gentamicin is not appropriate for Perkins-therapy. Linear View A/P: 61 year old female [...] Moreno MD 08/19/21 Acute Care Surgery Pager: [phone] Attending Addendum I have seen and examined [...] Fluid Culture, Aerobic & Anaerobic Abdominal Fluid [[id number]] (Abnormal) Collected: 08/12/211948 Lab Status: Preliminary result Specimen: Abdominal Fluid Updated: 08/14/21 1059 Tissue Culture, Aerobic & Anaerobic Stomach [[id number]] (Abnormal) Collected: 08/12/211948 Lab Status: Preliminary result Specimen: Stomach Updated: 08/15/21 0949 Body Fluid Culture, Aerobic [[id number]] (Abnormal) Collected: 08/12/211948 Lab Status: Preliminary result Specimen: Abdominal Fluid Updated: 08/14/21 1059 Body Fluid Culture -- Moderate mixed Gram Positive organisms including Coagulase negative Staphylococcus species Gram Stain -- Cytocentrifuge Gram Stain performed Neutrophils seen Many Gram Positive Cocci seen Results called to and read back by Dilip rojas 08/12/21 22:08:54 WS Anaerobic Culture [[id number]] Collected: 08/12/211948 Lab Status: Preliminary result Specimen: Abdominal Fluid Updated: 08/13/21 1135 Anaerobic Culture No anaerobic organisms isolated to date Tissue culture [[id number]] (Abnormal) (Susceptibility) Collected: 08/12/211948 Lab Status: Preliminary [...] Sensitive [1] Gentamicin is not appropriate for Perkins-therapy. Linear View A/P: 61 year old female [...] Reyes MD 08/18/21 Acute Care Surgery Pager: [phone] SURGICAL ATTENDING NOTE: Pt seen and examined [...] healthy in appearance. Otherwise as noted above. Gabriela Acharya MD - 08/17/2021 6:48 PM [...] Fluid Culture, Aerobic & Anaerobic Abdominal Fluid [[id number]] (Abnormal) Collected: 08/12/21 194 Lab Status: Preliminary result Specimen: Abdominal Fluid Updated: 08/14/21 1059 Tissue Culture, Aerobic & Anaerobic Stomach [[id number]] (Abnormal) Collected: 08/12/211948 Lab Status: Preliminary result Specimen: Stomach Updated: 08/15/21 0949 Body Fluid Culture, Aerobic [[id number]] (Abnormal) Collected: 08/12/211948 Lab Status: Preliminary result Specimen: Abdominal Fluid Updated: 08/14/21 1059 Body Fluid Culture -- Moderate mixed Gram Positive organisms including Coagulase negative Staphylococcus species Gram Stain -- Cytocentrifuge Gram Stain performed Neutrophils seen Many Gram Positive Cocci seen Results called to and read back by Dilip rojas 08/12/21 22:08:54 WS Anaerobic Culture [[id number]] Collected: 08/12/211948 Lab Status: Preliminary result Specimen: Abdominal Fluid Updated: 08/13/21 1135 Anaerobic Culture No anaerobic organisms isolated to date Tissue culture [[id number]] (Abnormal) (Susceptibility) Collected: 08/12/211948 Lab Status: Preliminary [...] Sensitive [1] Gentamicin is not appropriate for Perkins-therapy. Linear View A/P: 61 year old female [...] Moreno MD 08/17/21 Acute Care Surgery Pager: [phone] SURGICAL ATTENDING NOTE: Pt seen and examined [...] for vancomycin trough 20.1 Micro: Tissue culture [[id number]] (Abnormal) Collected: 08/12/211948 Lab Status: Preliminary result [...] Moreno MD 08/16/21 Acute Care Surgery Pager: [phone] SURGICAL ATTENDING NOTE: Pt seen and examined [...] pad needing to be changed overnight by . Pt able to rest in between care [...] Fluid Culture, Aerobic & Anaerobic Abdominal Fluid [[id number]] (Abnormal) Collected: 08/12/211948 Lab Status: Preliminary result Specimen: Abdominal Fluid Updated: 08/14/21 105 Tissue Culture, Aerobic & Anaerobic Stomach [[id number]] (Abnormal) Collected: 08/12/211948 Lab Status: Preliminary result Specimen: Stomach Updated: 08/15/21 0949 Body Fluid Culture, Aerobic [[id number]] (Abnormal) Collected: 08/12/211948 Lab Status: Preliminary result Specimen: Abdominal Fluid Updated: 08/14/21 1059 Body Fluid Culture -- Moderate mixed Gram Positive organisms including Coagulase negative Staphylococcus species Gram Stain -- Cytocentrifuge Gram Stain performed Neutrophils seen Many Gram Positive Cocci seen Results called to and read back by Dilip rojas 08/12/21 22:08:54 WS Anaerobic Culture [[id number]] Collected: 08/12/211948 Lab Status: Preliminary result Specimen: Abdominal Fluid Updated: 08/13/21 1135 Anaerobic Culture No anaerobic organisms isolated to date Tissue culture [[id number]] (Abnormal) (Susceptibility) Collected: 08/12/211948 Lab Status: Preliminary [...] Sensitive [1] Gentamicin is not appropriate for Perkins-therapy. Linear View A/P: 61 year old female [...] Reyes MD 08/15/21 Acute Care Surgery Pager: [phone] Ralph Abdullahi RN - 08/15/2021 6:55 AM [...] to monitor, wound vac intact and set [id number], hemodynamically stable, receiving 6L O2 via SFM [...] monitoring]: Purposeful rounding Call glover within reach [facility] Patient-specific fall prevention interventions for sensory deficits [...] of abdominal wall abscess. OR findings: - [id number] abscess of abdominal wall over mesh. - [...] normalized K Micro: Body Fluid Culture, Aerobic [[id number]] (Abnormal) Collected: 08/12/211948 Lab Status: Preliminary result Specimen: Abdominal Fluid Updated: 08/14/21 105 Body Fluid Culture --??Abnormal?? Moderate mixed Gram Positive organisms including Coagulase negative Staphylococcus species ??Abnormal?? Gram Stain --??Abnormal?? Cytocentrifuge Gram Stain performed Neutrophils seen Many Gram Positive Cocci seen Results called to and read back by Dilip rojas ??08/12/21 22:08:54 WS ??Abnormal?? Anaerobic Culture [[id number]] Collected: 08/12/211948 Lab Status: Preliminary result Specimen: Abdominal Fluid Updated: 08/13/21 1135 Anaerobic Culture No anaerobic organisms isolated to date Tissue culture [[id number]] (Abnormal) Collected: 08/12/211948 Lab Status: Preliminary result [...] hA1c HEME: DVT ppx with lovenox ID: chrissy Arias MSK: RADHA PPX: PPI, IS, SCDs LINES: [...] of abdominal wall abscess. OR findings: - [id number] abscess of abdominal wall over mesh. - [...] normalized K Micro: Body Fluid Culture, Aerobic [[id number]] (Abnormal) Collected: 08/12/211948 Lab Status: Preliminary result Specimen: Abdominal Fluid Updated: 08/12/212208 Gram Stain --??Abnormal?? Cytocentrifuge Gram Stain performed Neutrophils seen Many Gram Positive Cocci seen Results called to and read back by Dilip rojas ??08/12/21 22:08:54 WS ??Abnormal?? Tissue culture [[id number]] (Abnormal) Collected: 08/12/211948 Lab Status: Preliminary result [...] 57 bpm 18 145/78 93 % RA 08/16/212024 36.9 ??C (98.4 ??F) 60 bpm 16 [...] 27.9) performed by Miryam Wiley MD at [facility] MAIN OR ??? PRO COLONOSCOPY, DIAGNOSTIC N/A 08/18/2019 COLONOSCOPY, DIAGNOSTIC performed by Emigdio Lanier MD at [facility] ENDOSCOPY ??? PRO CYSTOSCOPY, INSERT URETERAL STENT Right 09/14/2019 CYSTO, STENT PLACEMENT INTRAOP, TEMPORARY (WRVU 2.82) performed by Werner Fournier MD at [facility] MAIN OR ??? PRO EXPLORATORY OF ABDOMEN N/A 04/25/2020 @EXPLORATORY LAPAROTOMY, WITH/WITHOUT BIOPSY(S) (WRVU 12.54) performed by Liberty Swann MD at [facility] MAIN OR ??? PRO IMPLANT MESH HERNIA REPAIR/DEBRIDEMENT CLOSURE N/A 2021 IMPLANT MESH FOR INCISIONAL OR VENTRAL HERNIA REPAIR (WRVU 4.88) performed by Negro Watters MD at [facility] MAIN OR ??? PRO MOBILIZE SPLENIC FLEX N/A 09/14/2019 @MOBILIZATION OF SPLENIC FLEXURE (WRVU 2.23) performed by Miryam Wiley MD at [facility] MAIN OR ??? PRO OMENTAL FLAP, INTRA-ABDOMINAL 09/14/2019 @OMENTAL FLAP, INTRA-ABDOMINAL (WRVU 6.54) performed by Miryam Wiley MD at [facility] MAIN OR ??? PRO REPAIR RECURR INCIS HERNIA, DEONTE N/A 04/25/2020 HERNIA REPAIR, VENTRAL OR INCISIONAL, RECURRENT, INCARCERATED (WRVU 15.53) performed by Liberty Swann MD at [facility] OR ??? PRO REPAIR RECURR INCIS HERNIA, DEONTE Left 04/25/2021 HERNIA REPAIR, VENTRAL OR INCISIONAL, RECURRENT, INCARCERATED (WRVU 15.53) performed by Loco White MD at [facility] OR ??? PRO REPAIR RECURR INCIS HERNIA, DEONTE N/A 2021 HERNIA REPAIR, VENTRAL OR INCISIONAL, RECURRENT, INCARCERATED (WRVU 15.53) performed by Negro Watters MD at [facility] MAIN OR ??? PRO SIGMOIDOSCOPY, DIAGNOSTIC N/A 09/14/2019 SIGMOIDOSCOPY, FLEXIBLE W/WO SPECIMEN BY BRUSHING OR WASHING (WRVU 0.84) performed by Miryam Wiley MD at [facility] MAIN OR ??? TUBAL LIGATION MEDICATIONS: Medication [...] Tamayo MD 08/12/2021 General Surgery consult pager #[phone] I saw and evaluated the patient with [...] EDT 1924: Pt. Arrived from OR to IA22. Monitors on, alarms active and audible. 2049: [...] src: Oral SpO2: 96 % O2 Device: O2 Flow Rate (L/min): n/a Physical Exam [...] (WITH DIFF) REQUEST FOR BLOOD GAS DRAW ([facility]) BASIC METABOLIC PANEL (NON-FASTING) BLOOD GAS 2 [...] left unit via wheelchair accompanied by the SKID ADZER, along with personal belongings. Care Management Discharge [...] information for follow-up [facility], [place] [address] Transportation: family or friend will provide Functional [...] and team. All are in agreement with planKatherin Santos RN (Jonas) RN/CM - Cellphone: [phone] Pager: [phone] Covering Service RN/CM Plan of Care - [...] GEE drain care. Patient stated that her llcbfg-bf-nsq will do it when she gets home. Rsagng-gw-chr has done it before. 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 Active bowel sounds, loose/creamy stool. Refused Miralax. [...] Pt NPO for OR debridement / closure. [facility] 1535 - Pt down to OR. [...] Swann MD - 08/19/2021 5:19 PM EDT [facility] Operative Note Patient Name: Jahaira Montgomery : [id number] MR#: [id number] Case Date: 08/19/2021 Surgeon: Surgeon(s) and Role: [...] indicated. Anticipated Date of Discharge: 08/20/2021 Merle Santos RN (Jonas) RN/CM - Cellphone: [phone] Pager: [phone] Covering Service RN/CM Plan of Care - Pablo Cancino RN - 08/18/2021 5:16 PM EDT OUTCOME EVALUATION NOTE: ?? OUTCOME SUMMARY: ?? Pt A&Ox4. Vanco troph critical this AM-MD and pharmacy notified-vanco held per pharmacy instructions and MD aware. OOB 1 assist w/walker. Walked for 1 lap in the hallway today-tolerated well. Washed up and linens changed today. Pain in L.abdomen 3-09/22-tolerable per pt w/PRN dilaudid per MAY. Wound [...] GOAL OUTCOME EVALUATION:? Consult Note - Kaye Peña RPH - 08/18/2021 9:47 AM EDT Clinical Pharmacist Note-Vanc Jahaira Montgomery [id number] 1960 Jahaira Montgomery is a 61 y.o. [...] have. Alternately, during off-hours you may call [phone] to contact a pharmacist. Kaye Peña RPH Pager [phone] Plan of Care - Clarissa Hay RN [...] ADLs]: Hands on Surveillance [continuous indirect monitoring]: Masimo, purposeful rounding, call glover within reach Patient-specific [...] palpable. Bowel sounds normoactive- passing flatus. LBM 08/15. VSS. WCTM.? PLAN MOVING FORWARD: ?? Monitor [...] Aly MD - 08/17/2021 12:09 PM EDT [facility] Operative Note Patient Name: Jahaira Montgomery : [id number] MR#: [id number] Case Date: 08/17/2021 Surgeon: Surgeon(s) and Role: [...] palpable. Bowel sounds normoactive- passing flatus. LBM 08/15. VSS. WCTM. ?? PLAN MOVING FORWARD: ?? [...] Services: Wound care, Registered Nurse Agency Referrals: [facility] for RN, OT and [facility] for wound [...] below findings per operative note: Findings: - [id number] abscess of abdominal wall over mesh. - [...] One white sponge and one black sponge placed.??[id number] wound.?? At bedside interview, Jahaira reports that [...] Social History: She lives with brother and gitkco-lk-mys in [place]. They own several cats and dogs. She [...] Bhatt, DO ID Fellow Red Team Pager: [phone] Infectious Diseases Attending I saw the patient with the infectious diseases fellow. I have made some modifications and agree withthe presentation of data and the assessment and plan as outlined above. The patient appears to understand the plan and also the challenges we face with sterilizing necessary mesh. Viviana Topete MD Professor, Department of Medicine Page [phone] minutes of this 55 minute visit were spent on the floor/unit in counseling or coordination of care with the patient, regarding treatment of infection as detailed in note above. Consult Note - Alberto Murrieta, [facility] - 08/16/2021 7:06 AM EDT Clinical Pharmacist Note-Vanc Jahaira Montgomery [id number] 1960 Jahaira Montgomery is a 61 y.o. [...] have. Alternately, during off-hours you may call [phone] to contact a pharmacist. ALBERTO MURRIETA [facility] Pager [phone] Plan of Care - Pablo Cancino RN - 08/15/2021 7:01 PM EDT OUTCOME EVALUATION NOTE: OUTCOME SUMMARY: Pt A&Ox4. OOB 1-2 assist w/walker. Pt OOB to nurse's station around 1430. Pt felt dizzy/ like the room was spinning and assisted to wheelchair. Pt BP in wheelchair 129/80 and assisted back to bed. Pt dizziness resolved. Pain throughout the day 3-12/23 in LUQ of abdomen-pt tends to fall [...] Operative Note Patient Name: Jahaira Montgomery : [id number] MR#: [id number] Case Date: 08/15/2021 Surgeon: Surgeon(s) and Role: [...] from the original note were not included. [facility] Operative Note Patient Name: Jahaira Montgomery : [id number] MR#: [id number] Case Date: 08/15/2021 Surgeon: Surgeon(s) and Role: [...] white sponge and one black sponge placed. [id number] wound. Anesthesia: General Estimated Blood Loss: 20 [...] appt to remove shelley and came back [facility] yesterday with abdominal pain d/t surgical wound infection. Pt is now s/p I&D in OR and wound vac placement. To OR tomorrow for wound vac change. Source of Information: Team, bedside nurse, medical record, and Patient Introduced self/reviewed role; services accepted. Reason for Hospitalization: Wound infection after surgery Last COVID test: Lab Results Component Value Date COVID19 Not Detected 04/27/2021 [id number] Not Detected 08/12/2021 Past medical History: Past [...] sibling would be surrogate decision maker per [place] surrogate decision making law. (Only good for 180 days) Any patient receiving care at [facility] must abide by [place] law. The hierarchy for surrogate decision making [...] (i) The agent with financial power of research attorney or a conservator appointed in accordance [...] Current DME: none Home Address confirmed as: [address] [place] [id number] Social & Family Supports: Extended Emergency Contact [...] Insurance: N/A Prescription Coverage: Yes Preferred Pharmacy: [facility] [address] - [address] [place] [address] [place], [place] - [address] [facility] [address] [place] [address] [address] [facility] [address] Status: Patient is a : No Primary Care Provider: Ally Mary Ortiz, VACCINE MANAGER [phone] Patient/Caregiver Goals of Treatment: feel better Potential Needs for Transition of Care: home health care Agency Referrals: I have met with the patient to: ?? discuss discharge planning needs. ?? provide the [facility], Office of Care Management letter from the Sales [employer] pertaining to rehab referrals. ?? provide a letter describing our affiliations within the [facility] and educate about their right to choose where referrals are sent. ?? provide a list of Home Health Agencies / Durable Medical Equipment vendors which serve their preferred geographic area. ?? provided patient with [facility] Star Quality Rating handout. They have requested referrals to: [facility] [place] [address] PHONE: [phone] FAX: [phone] Name: DANTEFor wound vac Tel.#: ext [phone] fax#: Equipment ordered:wound vac Note routed to a Maintenance Supervisor 2Nd Shift who will communicate referrals to facilities and [...] planning. Aria Shultz, RN, BSN Case Management Consult Note - Manuel King [facility] - 08/13/2021 12:00 PM EDT TelePharmacy Home [...] Che MD - 08/12/2021 6:51 PM EDT [facility] Operative Note Patient Name: Jahaira Montgomery : [id number] MR#: [id number] Case Date: 08/12/2021 Surgeon: Surgeon(s) and Role: * Joshua Che MD - Primary * Charly Agrawal MD - Resident Preoperative diagnosis: wound infection Postoperative diagnosis: wound infection Procedure(s) (LRB): I & D ABSCESS, SIMPLE OR SINGLE, TRUNK (WRVU 1.22) (N/A) Findings: - [id number] abscess of abdominal wall over mesh. - [...] 09/30/2021 Office Visit General Surgery Paloma Mota, VACCINE MANAGER [facility] GENER[facility] SURGERY [place], [place] [address] (Wo rk) 09/30/2021 Office Visit Infectious Diseases Werner Harrell MD [facility] ER INFECTIOUS DISEMary [place], [place] [address] (Wo rk) Scheduled Referrals Name Type [...] the results section. POCT GLUCOSE Routine 08/17/2021 11:20 Results for [...] 08/15/2021 3:52 AM SUBCU, MUSCLE, EDT ABDOMEN POCT GLUCOSE Routine 08/14/2021 11:26 Results for [...] procedure are i n the results section. I&D ABSCESS, Routine 08/12/2021 5:45 PM SIMPLE/SINGLE,TRUNK [...] Results POCT Glucose (08/22/2021 7:45 AM EDT) athologist Signature POC Glucose 105 65 - 199 [facility] mg/dL [facility] Comment: Supplemental ranges: <140 mg/dL before meals <180 mg/dL all other times of the day Specimen Anatomical Collection Method Collection Time Receive d Time (Source) Location / / Volume Laterality Blood 08/22/2021 7:45 AM 2 7:45 EDT AM EDT Ai Arriaza MD POINT OF CARE TEST ORDERABLE S Performing Organization Address City/State/[place] [address] POCT Glucose (08/22/2021 3:38 AM EDT) athologist Signature POC Glucose 96 65 - 199 [place] mg/dL [facility] Comment: Supplemental ranges: <140 mg/dL before meals <180 mg/dL all other times of the day Specimen Anatomical Collection Method Collection Time Receive d Time (Source) Location / / Volume Laterality Blood 08/22/2021 3:38 AM 2 3:38 EDT AM EDT Ai Arriaza MD POINT OF CARE TEST ORDERABLE S Performing Organization Address City/State/[place] [address] POCT Glucose (08/22/2021 2:04 AM EDT) athologist Signature POC Glucose 106 65 - 199 [place] mg/dL [facility] Comment: Supplemental ranges: <140 mg/dL before meals <180 mg/dL all other times of the day Specimen Anatomical Collection Method Collection Time Receive d Time (Source) Location / / Volume Laterality Blood 08/22/2021 2:04 AM 2 2:04 EDT AM EDT Ai Arriaza MD POINT OF CARE TEST ORDERABLE S Performing Organization Address City/State/ZIP [place] [address] POCT Glucose (08/21/2021 10:19 PM EDT) athologist Signature POC Glucose 106 65 - 199 [place] mg/dL [facility] Comment: Supplemental ranges: <140 mg/dL before meals <180 mg/dL all other times of the day Specimen Anatomical Collection Method Collection Time Receive d Time (Source) Location / / Volume Laterality Blood 08/21/2021 10:19 08/21/2021 PM EDT 10:19 PM EDT Ai Arriaza MD POINT OF CARE TEST ORDERABLE S Performing Organization Address City/State/ZIP Code Phon e Number [address] POCT Glucose (08/21/2021 3:38 PM EDT) athologist Signature POC Glucose 97 65 - 199 [place] mg/dL [facility] Comment: Supplemental ranges: <140 mg/dL before meals <180 mg/dL all other times of the day Specimen Anatomical Collection Method Collection Time Receive d Time (Source) Location / / Volume Laterality Blood 08/21/2021 3:38 PM 3:38 EDT PM EDT Ai Arriaza MD POINT OF CARE TEST ORDERABLE S Performing Organization Address City/[facility]/ZIP Code Phon e Number [address] POCT Glucose (08/21/2021 11:22 AM EDT) athologist Signature POC Glucose 144 65 - 199 [place] mg/dL [facility] Comment: Supplemental ranges: <140 mg/dL before meals <180 mg/dL all other times of the day Specimen Anatomical Collection Method Collection Time Receive d Time (Source) Location / / Volume Laterality Blood 08/21/2021 11:22 08/21/2021 AM EDT 11:22 AM EDT Loco White MD POINT OF CARE TEST ORDERABLE S Performing Organization Address City/State/ZIP [place] [address] POCT Glucose (08/21/2021 7:44 AM EDT) athologist Signature POC Glucose 105 65 - 199 [place] mg/dL [facility] Comment: Supplemental ranges: <140 mg/dL before meals <180 mg/dL all other times of the day Specimen Anatomical Collection Method Collection Time Receive d Time (Source) Location / / Volume Laterality Blood 08/21/2021 7:44 AM 7:44 EDT AM EDT Loco White MD POINT OF CARE TEST ORDERABLE S Performing Organization Address City/State/ZIP [place] [address] POCT Glucose (08/21/2021 4:08 AM EDT) athologist Signature POC Glucose 109 65 - 199 [place] mg/dL [facility] Comment: Supplemental ranges: <140 mg/dL before meals <180 mg/dL all other times of the day Specimen Anatomical Collection Method Collection Time Receive d Time (Source) Location / / Volume Laterality Blood 08/21/2021 4:08 AM 4:08 EDT AM EDT Loco White MD POINT OF CARE TEST ORDERABLE S Performing Organization Address City/State/ZIP [place] [address] POCT Glucose (08/20/2021 11:31 PM EDT) athologist Signature POC Glucose 113 65 - 199 [place] mg/dL [facility] Comment: Supplemental ranges: <140 mg/dL before meals <180 mg/dL all other times of the day Specimen Anatomical Collection Method Collection Time Receive d Time (Source) Location / / Volume Laterality Blood 08/20/2021 11:31 08/20/2021 PM EDT 11:31 PM EDT Loco White MD POINT OF CARE TEST ORDERABLE S Performing Organization Address City/State/ZIP [place] [address] POCT Glucose (08/20/2021 8:13 PM EDT) athologist Signature POC Glucose 118 65 - 199 [place] mg/dL [facility] Comment: Supplemental ranges: <140 mg/dL before meals <180 mg/dL all other times of the day Specimen Anatomical Collection Method Collection Time Receive d Time (Source) Location / / Volume Laterality Blood 08/20/2021 8:13 PM 8:13 EDT PM EDT Loco White MD POINT OF CARE TEST ORDERABLE S Performing Organization Address City/State/ZIP Code Phon e Number [address] POCT Glucose (08/20/2021 3:30 PM EDT) athologist Signature POC Glucose 118 65 - 199 [facility] Comment: Supplemental ranges: <140 mg/dL before meals <180 mg/dL all other times of the day Specimen Anatomical Collection Method Collection Time Receive d Time (Source) Location / / Volume Laterality Blood 08/20/2021 3:30 PM 3:30 EDT PM EDT Loco White MD POINT OF CARE TEST ORDERABLE S Performing Organization Address City/State/ZIP Code Phon e Number [address] POCT Glucose (08/20/2021 11:09 AM EDT) athologist Signature POC Glucose 143 65 - 199 [facility] Comment: Supplemental ranges: <140 mg/dL before meals <180 mg/dL all other times of the day Specimen Anatomical Collection Method Collection Time Receive d Time (Source) Location / / Volume Laterality Blood 08/20/2021 11:09 08/20/2021 AM EDT 11:09 AM EDT Loco White MD POINT OF CARE TEST ORDERABLE S Performing Organization Address City/State/Z[place] [address] Vancomycin, trough (08/20/2021 10:31 AM EDT) athologist Signature Vanc Trough 19.3 mg/L [facility] Comment: Therapeutic range for complicated [...] White MD CHEMISTRY ORDERABLES Performing Organization Address City/[facility]/ZIP Code Phon e Number [address] POCT Glucose (08/20/2021 7:27 AM EDT) athologist Signature POC Glucose 113 65 - 199 [place] mg/dL [facility] Comment: Supplemental ranges: <140 mg/dL before meals <180 mg/dL all other times of the day Specimen Anatomical Collection Method Collection Time Receive d Time (Source) Location / / Volume Laterality Blood 08/20/2021 7:27 AM 2 7:27 EDT AM EDT Loco White MD POINT OF CARE TEST ORDERABLE S Performing Organization Address City/[facility]/ZIP Code Phon e Number [address] POCT Glucose (08/20/2021 5:14 AM EDT) athologist Signature POC Glucose 128 65 - 199 [place] mg/dL [facility] Comment: Supplemental ranges: <140 mg/dL before meals <180 mg/dL all other times of the day Specimen Anatomical Collection Method Collection Time Receive d Time (Source) Location / / Volume Laterality Blood 08/20/2021 5:14 AM 2 5:14 EDT AM EDT Loco White MD POINT OF CARE TEST ORDERABLE S Performing Organization Address City/State/ZIP [place] [address] POCT Glucose (08/19/2021 11:34 PM EDT) athologist Signature POC Glucose 174 65 - 199 [place] mg/dL [facility] Comment: Supplemental ranges: <140 mg/dL before meals <180 mg/dL all other times of the day Specimen Anatomical Collection Method Collection Time Receive d Time (Source) Location / / Volume Laterality Blood 08/19/2021 11:34 08/19/2021 PM EDT 11:34 PM EDT Loco White MD POINT OF CARE TEST ORDERABLE S Performing Organization Address City/State/ZIP [place] [address] POCT Glucose (08/19/2021 8:26 PM EDT) athologist Signature POC Glucose 153 65 - 199 [place] mg/dL [facility] Comment: Supplemental ranges: <140 mg/dL before meals <180 mg/dL all other times of the day Specimen Anatomical Collection Method Collection Time Receive d Time (Source) Location / / Volume Laterality Blood 08/19/2021 8:26 PM 2 8:26 EDT PM EDT Loco White MD POINT OF CARE TEST ORDERABLE S Performing Organization Address City/State/ZIP [place] [address] POCT Glucose (08/19/2021 6:53 PM EDT) athologist Signature POC Glucose 150 65 - 199 [place] mg/dL [facility] Comment: Supplemental ranges: <140 mg/dL before meals <180 mg/dL all other times of the day Specimen Anatomical Collection Method Collection Time Receive d Time (Source) Location / / Volume Laterality Blood 08/19/2021 6:53 PM 2 6:53 EDT PM EDT Loco White MD POINT OF CARE TEST ORDERABLE S Performing Organization Address City/State/ZIP [place] [address] POCT Glucose (08/19/2021 12:02 PM EDT) athologist Signature POC Glucose 106 65 - 199 [place] mg/dL [facility] Comment: Supplemental ranges: <140 mg/dL before meals <180 mg/dL all other times of the day Specimen Anatomical Collection Method Collection Time Receive d Time (Source) Location / / Volume Laterality Blood 08/19/2021 12:02 08/19/2021 PM EDT 12:02 PM EDT Loco White MD POINT OF CARE TEST ORDERABLE S Performing Organization Address City/[facility]/ZIP [place] [address] POCT Glucose (08/19/2021 7:57 AM EDT) P athologist Signature POC Glucose 105 65 - 199 [facility] mg/dL [facility] Comment: Supplemental ranges: <140 mg/dL before meals <180 mg/dL all other times of the day Specimen Anatomical Collection Method Collection Time Receive d Time (Source) Location / / Volume Laterality Blood 08/19/2021 7:57 AM 2 7:57 EDT AM EDT Loco White MD POINT OF CARE TEST ORDERABLE S Performing Organization Address City/[facility]/ZIP [place] [address] Scan, Peripheral Blood (08/19/2021 5:50 AM EDT) [facility] proVITAL Method Time Signature Plat Estimate Increased [facility] RBC Morphology Normal [facility] Platelet Clumps Present [facility] Specimen Anatomical Collection Method Collection Time Receive d Time (Source) Location / / Volume Laterality Blood 08/19/2021 5:50 AM 2 6:07 EDT AM EDT Resulting Agency Comment Spec In Lab Lisandro Treviño MD HEMATOLOGY ORDERABLES Performing Organization Address City/State/ZIP [place] [address] (ABNORMAL) Differential, Automated (08/19/2021 5:50 AM EDT) [facility] proVITAL Method Time Signature Neutrophils % 39.5 % [facility] Neutr Abs (ANC) 4.74 1.70 - [facility] 6.10 [facility] x10(3)/[facility] LABORATORY Lymphocytes % 30.7 % [facility] Lymphocytes Abs 3.7 (H) 0.9 - 3.2 [facility] x10(3)/[facility] LABORATORY Monocytes % 7.6 % [facility] Monocyte Abs 0.9 0.3 - 0.9 [facility] x10(3)/[facility] LABORATORY Eosinophils % 20.8 % [facility] Eosinophils Abs 2.5 (H) 0.0 - 0.4 [facility] x10(3)/[facility] LABORATORY Basophils % 0.7 % [facility] Basophils Abs 0.1 0.0 - 0.1 [facility] x10(3)/[facility] LABORATORY Immature Gran % 0.70 % [facility] Comment: Immature granulocytes(IG's)percentage an d absolute count will include metamyelocytes, myelocytes, and promyelo cytes. Blood smears from CBCs yielding IG's will be scanned manually for concor dance. If this scan disagrees with the automated IG or if promyelocytes are not ed, a manual differential will be performed. [place]ant[place] Gran Abs 0.09 (H) 0.00 - 0.04 x10(3)/[facility] LABORATORY Specimen Anatomical Collection Method Collection Time Receive d Time (Source) Location / / Volume Laterality Blood 08/19/2021 5:50 AM 6:07 EDT AM EDT Resulting Agency Comment Spec In Lab Lisandro Treviño MD HEMATOLOGY ORDERABLES Performing Organization Address City/State/[place] [address] (ABNORMAL) Hemogram (08/19/2021 5:50 AM EDT) Analysis Performed At Patho logist Time Signature WBC 12.0 (H) 4.0 - 9.5 [facility] x10(3)/[facility] LABORATORY RBC 4.40 4.00 - [facility] 5.21 [facility] x10(6)/[facility] LABORATORY Hemoglobin 12.9 11.7 - [facility] 15.5 g/dL [facility] Hematocrit 40.0 35.7 - [facility] 45.8 % [facility] MCV 90.9 82.6 - [facility] 94.4 [facility] LABORATORY MCH 29.3 27.1 - [place] SHANNONCOCK 32.0 pg [facility] MCHC 32.3 31.7 - [place] HODGE 35.0 g/dL [facility] Platelets 419 (H) 145 - 357 [facility] x10(3)/[facility] LABORATORY RDWSD 42.9 37.0 - [place] 46.0 [facility] LABORATORY RDWCV 13.1 11.5 - [place] 14.1 % [facility] MPV 9.1 7.6 - 12.9 [place] NAVE[place] [facility] LABORATORY nRBC % Auto 0.0 % [facility] nRBC Abs Auto 0.000 0.000 - [place] 0.000 [facility] x10(3)/[facility] LABORATORY Specimen Anatomical Collection Method Collection Time Receive d Time (Source) Location / / Volume Laterality Blood 08/19/2021 5:50 AM 2 6:07 EDT AM EDT Resulting Agency Comment Spec In Lab Lisandro Treviño MD HEMATOLOGY ORDERABLES Performing Organization Address City/State/ZIP [place] [address] (ABNORMAL) Phosphorus (08/19/2021 5:50 AM EDT) P athologist Signature Phosphorus 5.2 (H) 2.5 - 4.5 [facility] NAVEEN mg/dL [facility] Specimen Anatomical Collection Method Collection Time Receive d Time (Source) Location / / Volume Laterality Blood 08/19/2021 5:50 AM 2 6:07 EDT AM EDT Resulting Agency Comment Spec In Lab Loco White MD CHEMISTRY ORDERABLES Performing Organization Address City/State/ZIP Code Phon e Number [address] Magnesium (08/19/2021 5:50 AM EDT) P athologist Signature Magnesium 0.77 0.69 - 1.07 [facility] [place] mmol/L [facility] Specimen Anatomical Collection Method Collection Time Receive d Time (Source) Location / / Volume Laterality Blood 08/19/2021 5:50 AM 2 6:07 EDT AM EDT Resulting Agency Comment Spec In Lab Loco White MD CHEMISTRY ORDERABLES Performing Organization Address City/State/[place] [address] (ABNORMAL) Basic Metabolic Panel (non-fasting) (08/19/2021 5:50 AM EDT) P athologist Signature Glucose Lvl 115 65 - 199 [facility] mg/dL [facility] Comment: Diabetes: >=200 mg/dL plus symp toms BUN 20 (H) 8 - 18 mg/dL [facility] Creatinine 0.78 0.70 - 1.20 mg/dL [facility] Sodium 136 135 - 145 mmol/L [facility] Potassium 4.2 3.5 - 5.0 mmol/L [facility] Comment: Please note: ??Patients with WBC >100,00 0 may have falsely elevated Potassium levels. ??For accurate Potassium quantif ication in these patients send serum separator tube (gold top) for subsequent determinations. ??Contact the Clinical Chemistry Laboratory if there are any qu estions. Chloride 100 98 - 107 mmol/L [facility] CO2 22 22 - 31 mmol/L [facility] Anion Gap 14 5 - 15 mmol/L [facility] Calcium 10.1 8.5 - 10.5 mg/dL [facility] Estimated GFR 83 >=60 mL/min/1.73 m?? [facility] Comment: This patient? s estimated [...] White MD CHEMISTRY ORDERABLES Performing Organization Address City/[facility]/ZIP [place] [address] (ABNORMAL) CRP, acute inflammation (08/19/2021 5:50 AM EDT) athologist Signature CRP 40.2 (H) <=4.9 mg/L [facility] Comment: result rechecked-KS Specimen Anatomical Collection Method Collection Time Receive d Time (Source) Location / / Volume Laterality Blood 08/19/2021 5:50 AM 2 6:07 EDT AM EDT Resulting Agency Comment Spec In Lab Loco White MD CHEMISTRY ORDERABLES Performing Organization Address City/[facility]/ZIP [place] [address] POCT Glucose (08/19/2021 4:39 AM EDT) athologist Signature POC Glucose 119 65 - 199 [facility] Comment: Supplemental ranges: <140 mg/dL before meals <180 mg/dL all other times of the day Specimen Anatomical Collection Method Collection Time Receive d Time (Source) Location / / Volume Laterality Blood 08/19/2021 4:39 AM 2 4:39 EDT AM EDT Loco White MD POINT OF CARE TEST ORDERABLE S Performing Organization Address City/[facility]/ZIP [place] [address] POCT Glucose (08/19/2021 12:03 AM EDT) athologist Signature POC Glucose 122 65 - 199 [facility] Comment: Supplemental ranges: <140 mg/dL before meals <180 mg/dL all other times of the day Specimen Anatomical Collection Method Collection Time Receive d Time (Source) Location / / Volume Laterality Blood 08/19/2021 12:03 08/19/2021 AM EDT 12:03 AM EDT Loco White MD POINT OF CARE TEST ORDERABLE S Performing Organization Address City/State/ZIP Code Phon e Number [address] POCT Glucose (08/18/2021 7:54 PM EDT) athologist Signature POC Glucose 119 65 - 199 [place] mg/dL [facility] Comment: Supplemental ranges: <140 mg/dL before meals <180 mg/dL all other times of the day Specimen Anatomical Collection Method Collection Time Receive d Time (Source) Location / / Volume Laterality Blood 08/18/2021 7:54 PM 2 7:54 EDT PM EDT Loco White MD POINT OF CARE TEST ORDERABLE S Performing Organization Address City/State/ZIP Code Phon e Number [address] POCT Glucose (08/18/2021 5:22 PM EDT) athologist Signature POC Glucose 115 65 - 199 [place] mg/dL [facility] Comment: Supplemental ranges: <140 mg/dL before meals <180 mg/dL all other times of the day Specimen Anatomical Collection Method Collection Time Receive d Time (Source) Location / / Volume Laterality Blood 08/18/2021 5:22 PM 2 5:22 EDT PM EDT Loco White MD POINT OF CARE TEST ORDERABLE S Performing Organization Address City/State/ZIP Code Phon e Number [address] POCT Glucose (08/18/2021 12:05 PM EDT) athologist Signature POC Glucose 103 65 - 199 [place] mg/dL [facility] Comment: Supplemental ranges: <140 mg/dL before meals <180 mg/dL all other times of the day Specimen Anatomical Collection Method Collection Time Receive d Time (Source) Location / / Volume Laterality Blood 08/18/2021 12:05 08/18/2021 PM EDT 12:05 PM EDT Loco White MD POINT OF CARE TEST ORDERABLE S Performing Organization Address City/State/ZIP Code Phon e Number [place] [address] (ABNORMAL) Vancomycin, trough (08/18/2021 8:45 AM EDT) P athologist Signature Vanc Trough 25.4 mg/L [facility] (Critical) [facility] Comment: called by ARR; read back by (Pablo smith); 08/18/21 [id number] Therapeutic range for complicated infect ions such [...] White MD CHEMISTRY ORDERABLES Performing Organization Address City/[facility]/ZIP Code Phon e Number [facility] [place] [address] POCT Glucose (08/18/2021 8:28 AM EDT) P athologist Signature POC Glucose 103 65 - 199 [facility] Comment: Supplemental ranges: <140 mg/dL before meals <180 mg/dL all other times of the day Specimen Anatomical Collection Method Collection Time Receive d Time (Source) Location / / Volume Laterality Blood 08/18/2021 8:28 AM 2 8:28 EDT AM EDT Loco White MD POINT OF CARE TEST ORDERABLE S Performing Organization Address City/State/[place] [address] POCT Glucose (08/18/2021 4:20 AM EDT) athologist Signature POC Glucose 109 65 - 199 [place] mg/dL [facility] Comment: Supplemental ranges: <140 mg/dL before meals <180 mg/dL all other times of the day Specimen Anatomical Collection Method Collection Time Receive d Time (Source) Location / / Volume Laterality Blood 08/18/2021 4:20 AM 4:20 EDT AM EDT Loco White MD POINT OF CARE TEST ORDERABLE S Performing Organization Address City/State/[place] [address] POCT Glucose (08/17/2021 11:32 PM EDT) athologist Signature POC Glucose 100 65 - 199 [place] mg/dL [facility] Comment: Supplemental ranges: <140 mg/dL before meals <180 mg/dL all other times of the day Specimen Anatomical Collection Method Collection Time Receive d Time (Source) Location / / Volume Laterality Blood 08/17/2021 11:32 08/17/2021 PM EDT 11:32 PM EDT Loco White MD POINT OF CARE TEST ORDERABLE S Performing Organization Address City/State/[place] [address] POCT Glucose (08/17/2021 8:02 PM EDT) athologist Signature POC Glucose 118 65 - 199 [place] mg/dL [facility] Comment: Supplemental ranges: <140 mg/dL before meals <180 mg/dL all other times of the day Specimen Anatomical Collection Method Collection Time Receive d Time (Source) Location / / Volume Laterality Blood 08/17/2021 8:02 PM 8:02 EDT PM EDT Loco White MD POINT OF CARE TEST ORDERABLE S Performing Organization Address City/State/[place] [address] POCT Glucose (08/17/2021 4:52 PM EDT) athologist Signature POC Glucose 87 65 - 199 [place] mg/dL [facility] Comment: Supplemental ranges: <140 mg/dL before meals <180 mg/dL all other times of the day Specimen Anatomical Collection Method Collection Time Receive d Time (Source) Location / / Volume Laterality Blood 08/17/2021 4:52 PM 4:52 EDT PM EDT Loco White MD POINT OF CARE TEST ORDERABLE S Performing Organization Address City/State/ZIP [place] [address] POCT Glucose (08/17/2021 12:26 PM EDT) athologist Signature POC Glucose 103 65 - 199 [place] mg/dL [facility] Comment: Supplemental ranges: <140 mg/dL before meals <180 mg/dL all other times of the day Specimen Anatomical Collection Method Collection Time Receive d Time (Source) Location / / Volume Laterality Blood 08/17/2021 12:26 08/17/2021 PM EDT 12:26 PM EDT Loco White MD POINT OF CARE TEST ORDERABLE S Performing Organization Address City/State/ZIP [place] [address] POCT Glucose (08/17/2021 11:20 AM EDT) athologist Signature POC Glucose 112 65 - 199 [place] mg/dL [facility] Comment: Supplemental ranges: <140 mg/dL before meals <180 mg/dL all other times of the day Specimen Anatomical Collection Method Collection Time Receive d Time (Source) Location / / Volume Laterality Blood 08/17/2021 11:20 08/17/2021 AM EDT 11:20 AM EDT Loco White MD POINT OF CARE TEST ORDERABLE S Performing Organization Address City/State/ZIP [place] [address] POCT Glucose (08/17/2021 7:53 AM EDT) athologist Signature POC Glucose 111 65 - 199 [place] mg/dL [facility] Comment: Supplemental ranges: <140 mg/dL before meals <180 mg/dL all other times of the day Specimen Anatomical Collection Method Collection Time Receive d Time (Source) Location / / Volume Laterality Blood 08/17/2021 7:53 AM 7:53 EDT AM EDT Loco White MD POINT OF CARE TEST ORDERABLE S Performing Organization Address City/State/ZIP Code Phon e Number [address] POCT Glucose (08/17/2021 4:12 AM EDT) athologist Signature POC Glucose 121 65 - 199 [place] mg/dL [facility] Comment: Supplemental ranges: <140 mg/dL before meals <180 mg/dL all other times of the day Specimen Anatomical Collection Method Collection Time Receive d Time (Source) Location / / Volume Laterality Blood 08/17/2021 4:12 AM 2 4:12 EDT AM EDT Loco White MD POINT OF CARE TEST ORDERABLE S Performing Organization Address City/State/ZIP Code Phon e Number [address] POCT Glucose (08/16/2021 11:06 PM EDT) athologist Signature POC Glucose 118 65 - 199 [place] mg/dL [facility] Comment: Supplemental ranges: <140 mg/dL before meals <180 mg/dL all other times of the day Specimen Anatomical Collection Method Collection Time Receive d Time (Source) Location / / Volume Laterality Blood 08/16/2021 11:06 08/16/2021 PM EDT 11:06 PM EDT Loco White MD POINT OF CARE TEST ORDERABLE S Performing Organization Address City/State/ZIP [place] [address] POCT Glucose (08/16/2021 8:27 PM EDT) athologist Signature POC Glucose 116 65 - 199 [facility] Comment: Supplemental ranges: <140 mg/dL before meals <180 mg/dL all other times of the day Specimen Anatomical Collection Method Collection Time Receive d Time (Source) Location / / Volume Laterality Blood 08/16/2021 8:27 PM 2 8:27 EDT PM EDT Loco White MD POINT OF CARE TEST ORDERABLE S Performing Organization Address City/State/Z[place] [address] (ABNORMAL) CRP, acute inflammation (08/16/2021 5:44 PM EDT) athologist Signature CRP 54.8 (H) <=4.9 mg/L [facility] Specimen Anatomical Collection Method Collection Time Receive d Time (Source) Location / / Volume Laterality Blood 08/16/2021 5:44 PM 2 5:51 EDT PM EDT Resulting Agency Comment Spec In Lab Loco White MD CHEMISTRY ORDERABLES Performing Organization Address City/State/ZIP [place] [address] POCT Glucose (08/16/2021 4:38 PM EDT) athologist Signature POC Glucose 135 65 - 199 [facility] mg/dL [facility] Comment: Supplemental ranges: <140 mg/dL before meals <180 mg/dL all other times of the day Specimen Anatomical Collection Method Collection Time Receive d Time (Source) Location / / Volume Laterality Blood 08/16/2021 4:38 PM 2 4:38 EDT PM EDT Loco White MD POINT OF CARE TEST ORDERABLE S Performing Organization Address City/State/ZIP [place] [address] POCT Glucose (08/16/2021 12:22 PM EDT) athologist Signature POC Glucose 105 65 - 199 [place] mg/dL [facility] Comment: Supplemental ranges: <140 mg/dL before meals <180 mg/dL all other times of the day Specimen Anatomical Collection Method Collection Time Receive d Time (Source) Location / / Volume Laterality Blood 08/16/2021 12:22 08/16/2021 PM EDT 12:22 PM EDT Loco White MD POINT OF CARE TEST ORDERABLE S Performing Organization Address City/State/ZIP [place] [address] POCT Glucose (08/16/2021 7:38 AM EDT) athologist Signature POC Glucose 113 65 - 199 [place]EN mg/dL [facility] Comment: Supplemental ranges: <140 mg/dL before meals <180 mg/dL all other times of the day Specimen Anatomical Collection Method Collection Time Receive d Time (Source) Location / / Volume Laterality Blood 08/16/2021 7:38 AM 2 7:38 EDT AM EDT Loco White MD POINT OF CARE TEST ORDERABLE S Performing Organization Address City/State/ZIP [place] [address] POCT Glucose (08/16/2021 4:26 AM EDT) athologist Signature POC Glucose 126 65 - 199 [place] mg/dL [facility] Comment: Supplemental ranges: <140 mg/dL before meals <180 mg/dL all other times of the day Specimen Anatomical Collection Method Collection Time Receive d Time (Source) Location / / Volume Laterality Blood 08/16/2021 4:26 AM 2 4:26 EDT AM EDT Loco White MD POINT OF CARE TEST ORDERABLE S Performing Organization Address City/State/ZIP [place] [address] (ABNORMAL) Vancomycin, trough (08/16/2021 4:07 AM EDT) athologist Signature Vanc Trough 20.1 mg/L [place] (Critical) [facility] Comment: Called by: [place], Read back [...] / Volume Laterality Blood 08/16/2021 4:07 AM 4:24 EDT AM EDT Resulting Agency Comment Spec In Lab Loco White MD CHEMISTRY ORDERABLES Performing Organization Address [facility] Phon e Number [address] POCT Glucose (08/16/2021 12:24 AM EDT) P athologist Signature POC Glucose 131 65 - 199 [facility] mg/dL [facility] Comment: Supplemental ranges: <140 mg/dL before meals <180 mg/dL all other times of the day Specimen Anatomical Collection Method Collection Time Receive d Time (Source) Location / / Volume Laterality Blood 08/16/2021 12:24 08/16/2021 AM EDT 12:24 AM EDT Loco White MD POINT OF CARE TEST ORDERABLE S Performing Organization Address City/[facility] Phon e Number [address] POCT Glucose (08/15/2021 7:15 PM EDT) P athologist Signature POC Glucose 112 65 - 199 [facility] mg/dL [facility] Comment: Supplemental ranges: <140 mg/dL before meals <180 mg/dL all other times of the day Specimen Anatomical Collection Method Collection Time Receive d Time (Source) Location / / Volume Laterality Blood 08/15/2021 7:15 PM 7:15 EDT PM EDT Loco White MD POINT OF CARE TEST ORDERABLE S Performing Organization Address City/State/ZIP Code Phon e Number [place] [address] POCT Glucose (08/15/2021 4:58 PM EDT) P athologist Signature POC Glucose 116 65 - 199 [facility] mg/dL [facility] Comment: Supplemental ranges: <140 mg/dL before meals <180 mg/dL all other times of the day Specimen Anatomical Collection Method Collection Time Receive d Time (Source) Location / / Volume Laterality Blood 08/15/2021 4:58 PM 4:58 EDT PM EDT Loco White MD POINT OF CARE TEST ORDERABLE S Performing Organization Address City/State/ZIP [place] [address] COVID-19 PCR (08/15/2021 3:31 PM EDT) Patholo gist Method Time Signature SARS-CoV-2 Not Detected Not Detected [place] RNA [facility] Comment: This result should be interpreted [...] diagnosis of COVID-19 is performed using the [employer] m VERONICA S-CoV-2 Assay as authorized by the FDA Emergency Use Authorization (EUA). This EUA assay is intended for In-vitro Diagnostic (IVD) use with respiratory sp ecimens such as nasopharyngeal swabs collected from individuals during the ac bertha phase of infection. This assay is performed based on the instructions for use provided by [facility] and additional guidance provided by CDC and FDA. Testing is performed in the [facility] within the Department of Pathology and Laboratory Medicine at [facility], certified under the Clinical Laboratory [...] fact sheets at the following FDA website: https://www.fda.gov/medical-devices/ameoeejvdgx-wuojkfx-5038-qnxwb-77-qypofmspe- gwr-zxepbjhqahkrlq-hztufxs-devices/tzqef-wuspvteiycm-rkap SARS-Cov-2 RNA Source [facility] [employer]ER Swab [facility] Specimen (Source) Anatomical Collection Method Collection Time Re ceived Time Location / / Volume Laterality Nasopharyngeal Swab 08/15/2021 3:31 08/15 PM EDT 9:54 PM EDT Comment: Symptoms->Surveillance Resulting Agency Comment Spec In Lab Loco White MD MICROBIOLOGY - GENERAL ORDER AR[place] Performing Organization Address City/State/ZIP [place] [address] POCT Glucose (08/15/2021 12:42 PM EDT) athologist Signature POC Glucose 149 65 - 199 [place] mg/dL [facility] Comment: Supplemental ranges: <140 mg/dL before meals <180 mg/dL all other times of the day Specimen Anatomical Collection Method Collection Time Receive d Time (Source) Location / / Volume Laterality Blood 08/15/2021 12:42 08/15/2021 PM EDT 12:42 PM EDT Loco White MD POINT OF CARE TEST ORDERABLE S Performing Organization Address City/[facility]/ZIP [place] [address] POCT Glucose (08/15/2021 6:21 AM EDT) athologist Signature POC Glucose 105 65 - 199 [place] mg/dL [facility] Comment: Supplemental ranges: <140 mg/dL before meals <180 mg/dL all other times of the day Specimen Anatomical Collection Method Collection Time Receive d Time (Source) Location / / Volume Laterality Blood 08/15/2021 6:21 AM 6:21 EDT AM EDT Loco White MD POINT OF CARE TEST ORDERABLE S Performing Organization Address City/[facility]/ZIP [place] [address] Phosphorus (08/15/2021 5:40 AM EDT) athologist Signature Phosphorus 3.0 2.5 - 4.5 [place] mg/dL [facility] Specimen Anatomical Collection Method Collection Time Receive d Time (Source) Location / / Volume Laterality Blood Venous Draw / 08/15/2021 5:40 AM 08/16/19 5:46 Unknown EDT AM EDT Resulting Agency Comment Spec In Lab Lisandro Treviño MD CHEMISTRY ORDERABLES Performing Organization Address City/State/ZIP Code Phon e Number [place] Magnesium (08/15/2021 5:40 AM EDT) athologist Signature Magnesium 0.81 0.69 - 1.07 [facility] mmol/L [facility] Specimen Anatomical Collection Method Collection Time Receive d Time (Source) Location / / Volume Laterality Blood Venous Draw / 08/15/2021 5:40 AM 08/16/19 5:46 Unknown EDT AM EDT Resulting Agency Comment Spec In Lab Lisandro Treviño MD CHEMISTRY ORDERABLES Performing Organization Address City/State/ZIP Code Phon e Number [address] (ABNORMAL) Basic Metabolic Panel (non-fasting) (08/15/2021 5:40 AM EDT) athologist Signature Glucose Lvl 106 65 - 199 [facility] mg/dL [facility] Comment: Diabetes: >=200 mg/dL plus symp toms BUN 17 8 - 18 mg/dL [facility] Creatinine 0.44 (L) 0.70 - 1.20 mg/dL [facility] LABOR[facility] Sodium 137 135 - 145 mmol/L [facility] LABORATORY Potassium 3.5 3.5 - 5.0 mmol/L [facility]OR[facility] Comment: Please note: ??Patients with WBC >100,00 0 may have falsely elevated Potassium levels. ??For accurate Potassium quantif ication in these patients send serum separator tube (gold top) for subsequent determinations. ??Contact the Clinical Chemistry Laboratory if there are any qu estions. Chloride 101 98 - 107 mmol/L [facility] CO2 28 22 - 31 mmol/L [facility] Anion Gap 8 5 - 15 mmol/L [facility] LABORATORY Calcium 8.6 8.5 - 10.5 mg/dL [facility] LABORATORY Estimated GFR 110 >=60 mL/min/1.73 m?? [facility] Comment: This patient? s estimated [...] / Volume Laterality Blood 08/15/2021 5:40 AM 5:45 EDT AM EDT Resulting Agency Comment Spec In Lab Loco White MD CHEMISTRY ORDERABLES Performing Organization Address City/State/ZIP Code Phon e Number [address] POCT Glucose (08/14/2021 11:26 PM EDT) P athologist Signature POC Glucose 112 65 - 199 [facility]dL [facility] Comment: Supplemental ranges: <140 mg/dL before meals <180 mg/dL all other times of the day Specimen Anatomical Collection Method Collection Time Receive d Time (Source) Location / / Volume Laterality Blood 08/14/2021 11:26 08/14/2021 PM EDT 11:26 PM EDT Loco White MD POINT OF CARE TEST ORDERABLE S Performing Organization Address City/State/ZIP [place] [address] POCT Glucose (08/14/2021 7:39 PM EDT) P athologist Signature POC Glucose 119 65 - 199 [facility] mg/dL [facility] Comment: Supplemental ranges: <140 mg/dL before meals <180 mg/dL all other times of the day Specimen Anatomical Collection Method Collection Time Receive d Time (Source) Location / / Volume Laterality Blood 08/14/2021 7:39 PM 7:39 EDT PM EDT Loco White MD POINT OF CARE TEST ORDERABLE S Performing Organization Address City/State/ZIP [place] [address] POCT Glucose (08/14/2021 4:34 PM EDT) athologist Signature POC Glucose 118 65 - 199 [facility] mg/dL [facility] Comment: Supplemental ranges: <140 mg/dL before meals <180 mg/dL all other times of the day Specimen Anatomical Collection Method Collection Time Receive d Time (Source) Location / / Volume Laterality Blood 08/14/2021 4:34 PM 4:34 EDT PM EDT Loco White MD POINT OF CARE TEST ORDERABLE S Performing Organization Address City/[facility]/ZIP [place] [address] Vancomycin, trough (08/14/2021 12:01 PM EDT) athologist Signature Vanc Trough 10.5 mg/L [facility] Comment: Therapeutic range for complicated [...] Organization Address City/State/ZIP Code Phon e Number [address] POCT Glucose (08/14/2021 11:32 AM EDT) athologist Signature POC Glucose 107 65 - 199 [facility] mg/dL [facility] Comment: Supplemental ranges: <140 mg/dL before meals <180 mg/dL all other times of the day Specimen Anatomical Collection Method Collection Time Receive d Time (Source) Location / / Volume Laterality Blood 08/14/2021 11:32 08/14/2021 AM EDT 11:32 AM EDT Loco White MD POINT OF CARE TEST ORDERABLE S Performing Organization Address City/State/ZIP [place] [address] POCT Glucose (08/14/2021 8:03 AM EDT) P athologist Signature POC Glucose 139 65 - 199 [facility] mg/dL [facility] Comment: Supplemental ranges: <140 mg/dL before meals <180 mg/dL all other times of the day Specimen Anatomical Collection Method Collection Time Receive d Time (Source) Location / / Volume Laterality Blood 08/14/2021 8:03 AM 2 8:03 EDT AM EDT Loco White MD POINT OF CARE TEST ORDERABLE S Performing Organization Address City/[facility]/ZIP [place] [address] EKG 12 Lead (08/14/2021 4:30 AM EDT) Component Value Ref Range Test Analysis Performed Pathologis t Method Time At Signature Ventricular rate 46 BPM MUSE SYSTEM Atrial Rate 46 BPM MUSE SYSTEM P-R Interval 114 ms MUSE SYSTEM QRS Duration 80 ms MUSE SYSTEM Q-T Interval 518 ms MUSE SYSTEM QTC Calculated 453 ms MUSE SYSTEM (Bezet) Calculated P Stanberry 49 degrees MUSE SYSTEM Calculated R Stan[place] 28 degrees MUSE SYSTEM Calculated T Stan[place] 72 degrees MUSE SYSTEM INTERPRETATION Marked sinus bradycardia MUSE SYSTEM Abnormal ECG When compared with ECG of 18-SEP-2019 11:29, Vent. rate has decreased BY ??24 BPM I personally reviewed the tracing and edited the fellows int erpretation Confirmed by fellow Senser, Cuauhtemoc Liu ([id number]) on 08/14/2021 2:2 6:50 PM Confirmed by [...] Signature Glucose Lvl 155 65 - 199 [facility] mg/dL [facility] Comment: Diabetes: >=200 mg/dL plus symp toms BUN 25 (H) 8 - 18 mg/dL [facility] Creatinine 0.66 (L) 0.70 - 1.20 mg/dL [facility] Sodium 139 135 - 145 mmol/L [facility] Potassium 3.1 (L) 3.5 - 5.0 mmol/L [facility] Comment: Please note: ??Patients with WBC >100,00 0 may have falsely elevated Potassium levels. ??For accurate Potassium quantif ication in these patients send serum separator tube (gold top) for subsequent determinations. ??Contact the Clinical Chemistry Laboratory if there are any qu estions. Chloride 102 98 - 107 mmol/L [facility] CO2 Not Perf 22 - 31 [facility] LABORATORY Comment: Add-on request. Sample too old to perform test. Anion Gap Unable to Calculate 5 - 15 mmol/L [facility] LABORATORY Calcium 8.6 8.5 - 10.5 mg/dL [facility] LABORATORY Estimated GFR 97 >=60 mL/min/1.73 m?? [facility] Comment: This patient? s estimated [...] Venous Draw / 08/14/2021 3:47 AM 08/15/19 22 4:18 Unknown EDT AM EDT Resulting Agency Comment Spec In Lab Rosmery Moreno MD CHEMISTRY ORDERABLES Performing Organization Address City/[facility]/ZIP Code Phon e Number [address] Phosphorus (08/14/2021 3:47 AM EDT) P athologist Signature Phosphorus 2.6 2.5 - 4.5 [place] mg/dL [facility] Specimen Anatomical Collection Method Collection Time Receive d Time (Source) Location / / Volume Laterality Blood 08/14/2021 3:47 AM 2 4:13 EDT AM EDT Resulting Agency Comment Spec In Lab Joshua Che MD CHEMISTRY ORDERABLES Performing Organization Address City/[facility]/ZIP [place] [address] Magnesium (08/14/2021 3:47 AM EDT) P athologist Signature Magnesium 0.79 0.69 - 1.07 [place] mmol/L [facility] Specimen Anatomical Collection Method Collection Time Receive d Time (Source) Location / / Volume Laterality Blood 08/14/2021 3:47 AM 2 4:13 EDT AM EDT Resulting Agency Comment Spec In Lab Joshua Che MD CHEMISTRY ORDERABLES Performing Organization Address City/[facility]/ZIP Code Phon e Number [address] POCT Glucose (08/14/2021 2:58 AM EDT) P athologist Signature POC Glucose 159 65 - 199 [place] mg/dL [facility] Comment: Supplemental ranges: <140 mg/dL before meals <180 mg/dL all other times of the day Specimen Anatomical Collection Method Collection Time Receive d Time (Source) Location / / Volume Laterality Blood 08/14/2021 2:58 AM 2 2:58 EDT AM EDT Loco White MD POINT OF CARE TEST ORDERABLE S Performing Organization Address City/State/ZIP [place] [address] POCT Glucose (08/13/2021 9:40 PM EDT) athologist Signature POC Glucose 142 65 - 199 [place] mg/dL [facility] Comment: Supplemental ranges: <140 mg/dL before meals <180 mg/dL all other times of the day Specimen Anatomical Collection Method Collection Time Receive d Time (Source) Location / / Volume Laterality Blood 08/13/2021 9:40 PM 2 9:40 EDT PM EDT Loco White MD POINT OF CARE TEST ORDERABLE S Performing Organization Address City/State/ZIP [place] [address] POCT Glucose (08/13/2021 4:44 PM EDT) athologist Signature POC Glucose 136 65 - 199 [place] mg/dL [facility] Comment: Supplemental ranges: <140 mg/dL before meals <180 mg/dL all other times of the day Specimen Anatomical Collection Method Collection Time Receive d Time (Source) Location / / Volume Laterality Blood 08/13/2021 4:44 PM 2 4:44 EDT PM EDT Loco White MD POINT OF CARE TEST ORDERABLE S Performing Organization Address City/State/ZIP [place] [address] (ABNORMAL) POCT Glucose (08/13/2021 1:54 PM EDT) athologist Signature POC Glucose 223 (H) 65 - 199 [place] mg/dL [facility] Comment: Supplemental ranges: <140 mg/dL before meals <180 mg/dL all other times of the day Specimen Anatomical Collection Method Collection Time Receive d Time (Source) Location / / Volume Laterality Blood 08/13/2021 1:54 PM 2 1:54 EDT PM EDT Loco White MD POINT OF CARE TEST ORDERABLE S Performing Organization Address City/State/ZIP Code Phon e Number [address] (ABNORMAL) POCT Glucose (08/13/2021 11:47 AM EDT) P athologist Signature POC Glucose 246 (H) 65 - 199 [facility] Comment: Supplemental ranges: <140 mg/dL before meals <180 mg/dL all other times of the day Specimen Anatomical Collection Method Collection Time Receive d Time (Source) Location / / Volume Laterality Blood 08/13/2021 11:47 08/13/2021 AM EDT 11:47 AM EDT Joshua Che MD POINT OF CARE TEST ORDERABLE S Performing Organization Address City/State/ZIP Code Phon e Number [address] (ABNORMAL) Differential, Automated (08/13/2021 5:54 AM EDT) [facility] gist Method Time Signature Neutrophils % 82.7 % [facility] Neutr Abs (ANC) 10.00 (H) 1.70 - [facility] 6.10 [facility] x10(3)/[facility] LABORATORY Lymphocytes % 12.3 % [facility] Lymphocytes Abs 1.5 0.9 - 3.2 [facility] x10(3)/[facility] LABORATORY Monocytes % 4.1 % [facility] Monocyte Abs 0.5 0.3 - 0.9 [facility] x10(3)/[facility] LABORATORY Eosinophils % 0.2 % [facility] Eosinophils Abs 0.0 0.0 - 0.4 [facility] x10(3)/[facility] LABORATORY Basophils % 0.2 % [facility] Basophils Abs 0.0 0.0 - 0.1 [facility] x10(3)/[facility] LABORATORY Immature Gran % 0.50 % [facility] Comment: Immature granulocytes(IG's)percentage an d absolute count will include metamyelocytes, myelocytes, and promyelo cytes. Blood smears from CBCs yielding IG's will be scanned manually for concor dance. If this scan disagrees with the automated IG or if promyelocytes are not ed, a manual differential will be performed. Shantell Gran Abs 0.06 (H) 0.00 - 0.04 x10(3)/[facility] LABORATORY Specimen Anatomical Collection Method Collection Time Receive d Time (Source) Location / / Volume Laterality Blood 08/13/2021 5:54 AM 6:05 EDT AM EDT Resulting Agency Comment Spec In Lab Mavis Tamayo MD HEMATOLOGY ORDERABLES Performing Organization Address City/State/[place] [address] (ABNORMAL) Hemogram (08/13/2021 5:54 AM EDT) Analysis Performed At Patho logist Time Signature WBC 12.1 (H) 4.0 - 9.5 [facility] x10(3)/[facility] LABORATORY RBC 3.92 (L) 4.00 - [facility] 5.[facility] x10(6)/[facility] LABORATORY Hemoglobin 11.5 (L) 11.7 - [facility] 15.5 g/dL [facility] Hematocrit 36.2 35.7 - [facility] 45.8 % [facility] MCV 92.3 82.6 - [facility] 94.4 [facility] LABORATORY MCH 29.3 27.1 - [facility] NAVEEN 32.0 pg [facility]AT[facility] MCHC 31.8 31.7 - [facility] 35.0 g/dL [facility] Platelets 374 (H) 145 - 357 [facility] x10(3)/[facility] LABORATORY RDWSD 42.4 37.0 - [facility] NAVEEN 46.0 [facility] LABORATORY RDWCV 12.5 11.5 - [facility] NAVEEN 14.1 % [facility] LABORATORY MPV 9.2 7.6 - 12.9 [facility] LABORATORY nRBC % Auto 0.0 % [facility]OR[facility] nRBC Abs Auto 0.000 0.000 - [facility] PREMIUM 0.000 [facility] x10(3)/[facility] LABORATORY Specimen Anatomical Collection Method Collection Time Receive d Time (Source) Location / / Volume Laterality Blood 08/13/2021 5:54 AM 2 6:05 EDT AM EDT Resulting Agency Comment Spec In Lab Mavis Tamayo MD HEMATOLOGY ORDERABLES Performing Organization Address City/State/[place] [address] (ABNORMAL) Hemoglobin A1c (08/13/2021 5:54 AM EDT) Analysis Performed At Patho logist Time Signature Hemoglobin A1C 7.1 (H) 4.3 - 5.6 [facility] LABORATORY Comment: Reference Range: 4.3 - [...] Mellitus, Diabetes Care 2013; 36: Suppl. 1, K87-54 Est Avg Gluc 156 mg/dL [facility] LAB[facility]ORY Comment: eAG equivalents for HbA1c percentages: HbA1c(%) ?eAG(mg/dL) 6.0 ?126 6.5 ?140 7.0 ?154 7.5 ?169 8.0 ?183 8.5 ?197 9.0 ?212 9.5 ?226 10.0 ? 240 Limitations: The eAG calculation has not been validated on women, individuals below 18 years old and above 70 years old, and individuals with hemoglobinopathies. Additional resources are available on [facility] website. Adrian DUMONT, Rufus J, Jaylene R, et al. ??Tr anslating the A1C assay into estimated average glucose values. ??Diabetes Care 2008:31(8):1372-8126. Specimen Anatomical Collection Method Collection Time Receive d Time (Source) Location / / Volume Laterality Blood 08/13/2021 5:54 AM 2 6:05 EDT AM EDT Resulting Agency Comment Spec In Lab Joshua Ceh MD CHEMISTRY ORDERABLES Performing Organization Address City/[facility]/ZIP Code Phon e Number [address] Phosphorus (08/13/2021 5:54 AM EDT) P athologist Signature Phosphorus 3.1 2.5 - 4.5 [facility] mg/dL [facility] Specimen Anatomical Collection Method Collection Time Receive d Time (Source) Location / / Volume Laterality Blood 08/13/2021 5:54 AM 2 6:05 EDT AM EDT Resulting Agency Comment Spec In Lab Joshua Che MD CHEMISTRY ORDERABLES Performing Organization Address City/[facility]/ZIP [place] [address] Magnesium (08/13/2021 5:54 AM EDT) P athologist Signature Magnesium 0.80 0.69 - 1.07 [facility] mmol/L [facility] Specimen Anatomical Collection Method Collection Time Receive d Time (Source) Location / / Volume Laterality Blood 08/13/2021 5:54 AM 2 6:05 EDT AM EDT Resulting Agency Comment Spec In Lab Joshua Che MD CHEMISTRY ORDERABLES Performing Organization Address City/[facility]/ZIP [place] [address] (ABNORMAL) Basic Metabolic Panel (non-fasting) (08/13/2021 5:54 AM EDT) athologist Signature Glucose Lvl 196 65 - 199 [facility] mg/dL [facility] Comment: Diabetes: >=200 mg/dL plus symp toms BUN 16 8 - 18 mg/dL [facility] LABORATORY Creatinine 0.59 (L) 0.70 - 1.20 mg/dL [facility] LABORATORY Sodium 136 135 - 145 mmol/L [facility] LABORATORY Potassium 3.5 3.5 - 5.0 mmol/L [facility] LABORATORY Comment: Please note: ??Patients with WBC >100,00 0 may have falsely elevated Potassium levels. ??For accurate Potassium quantif ication in these patients send serum separator tube (gold top) for subsequent determinations. ??Contact the Clinical Chemistry Laboratory if there are any qu estions. Chloride 99 98 - 107 mmol/L [facility] CO2 26 22 - 31 mmol/L [facility] Anion Gap 11 5 - 15 mmol/L [facility] LABORATORY Calcium 8.7 8.5 - 10.5 mg/dL [facility] LABORATORY Estimated GFR 100 >=60 mL/min/1.73 m?? [facility] Comment: This patient? s estimated [...] / Volume Laterality Blood 08/13/2021 5:54 AM 6:05 EDT AM EDT Resulting Agency Comment Spec In Lab Joshua Che MD CHEMISTRY ORDERABLES Performing Organization Address City/State/[place] [address] (ABNORMAL) Anaerobic Culture (08/12/2021 7:49 PM EDT) [facility] Method Time Signature Anaerobic Moderate [place] Culture Finegoldshailesh NAVEENMARCUS loredoa (A) [facility] LABOR[facility] Organism Juan Jose loredoa (A) [facility] LABORATORY Specimen Anatomical Collection Method Collection Time Receive d Time (Source) Location / / Volume Laterality Stomach 08/12/2021 7:49 PM 2 8:56 EDT PM EDT Comment: Abdominal Wall Abscess Tissue C ulture Resulting Agency Comment Spec In Lab Organism Antibiotic Method Susceptibility Chilangoldia facundoa Metronidazole MINIMUM INHIBITORY CONCENTRATIO N 0.5: Sensitive Finemaryldia magna Penicillin MINIMUM INHIBITORY CONCENTRATIO N 0.125: Sensitive Finegoldia magna Vancomycin MINIMUM INHIBITORY CONCENTRATIO N 0.25 Joshua Che MD MICROBIOLOGY - GENERAL ORDER [place] Performing Organization Address City/State/[place] [address] (ABNORMAL) Tissue culture (08/12/2021 7:49 PM EDT) Component Value Ref Test Analysis Performed At [facility] Method Time Signature Tissue Moderate [place] Culture Coagulase [facility] species (A) LABORATORY Gram Stain Moderate Neutrophils seen MAR Y Moderate Gram Positive Cocci seen PREMIUM Results called to and read back by maritza ??08/12/21 21:42:05 [facility] () [facility] LABORATORY Organism Coagulase [facility] negative [facility] species () [facility] LABORATORY Organism Gram Positive [facility] Cocci (A) [facility] LABORATORY Specimen Anatomical Collection Method Collection Time [...] Comment: Gentamicin is not a ppropriate for [facility]-therapy. Coagulase negative staphylococcus Levofloxacin MICROSCAN METH OD [...] - GENERAL ORDER [place] Performing Organization Address City/[facility]/ZIP [place] [address] Anaerobic Culture (08/12/2021 7:49 PM EDT) [facility] Time Signature Anaerobic No anaerobic [place] Culture organisms [facility] LABORATORY Specimen (Source) Anatomical Collection Method Collection Time Re ceived Time Location / / Volume Laterality Abdominal Fluid 08/12/2021 7:49 8:55 PM EDT PM EDT Comment: Abdominal Wall Abscess Fluid Cu lture Resulting Agency Comment Spec In Lab Joshua Che MD MICROBIOLOGY - GENERAL ORDER [place] Performing Organization Address City/[facility] [place] [address] (ABNORMAL) Body Fluid Culture, Aerobic (08/12/2021 7:49 PM EDT) Component Value Ref Test Analysis Performed At [facility] Range Method Time Signature Body Fluid Moderate mixed Gram Positive organisms including Coagulase negative [facility] Culture Staphylococcus species [facility] Susceptibilities previously reported [facility] LABORATORY Gram Stain Cytocentrifuge Gram Stain performed [place] Neutrophils seen [facility] Many Gram Positive Cocci seen [facility] Results called to and read back by Dilip rojas ?? 2 22:08:54 [facility] () LABORATORY Organism Coagulase negative [place] Staphylococcus NAVEEN species (A) [facility] LABORATORY Organism Gram Positive Cocci [facility] (A) [facility] LABORATORY Specimen (Source) Anatomical Collection Method Collection Time Re ceived Time Location / / Volume Laterality Abdominal Fluid 08/12/2021 7:49 8:55 PM EDT PM EDT Comment: Abdominal Wall Abscess Fluid Cu lture Resulting Agency Comment Spec In Lab Joshua Che MD MICROBIOLOGY - GENERAL ORDER [place] Performing Organization Address City/State/Z[place] [address] COVID-19 PCR (08/12/2021 4:02 PM EDT) [facility] Method Time Signature SARS-CoV-2 Not Detected Not Detected [place] RNA PCR [facility] LABORATORY Comment: This result should be interpreted in com bination with the clinical observations, patient history and epidem iological information. For testing of asymptomatic individuals, assay performa nce characteristics and clinical utility have not been evaluated. Testing for SARS-CoV-2 (Severe acute respiratory syndrome coronavirus 2, form erly known as 2018 novel coronavirus or 2018-nCoV) to aid in the diagnosis of CO VID-19 is performed using the Simplexa COVID-19 Direct Assay by [employer] zhang as authorized by the FDA issued [...] Department of Pathology and Laboratory Medicine at [facility], certified under the Clinical Laboratory Improvement [...] clinical management guidance information are available at [facility] CDC Coronavirus Disease 2019 (COVID-19) webpage under Information fo r Healthcare Professionals (https://www.cdc.gov/coronavirus/2019-nc ov/hcp/index.html). Additional information about this and ot her EUA tests can be found in provider and patient fact sheets at the following FDA website: https://www.fda.gov/medical-devices/fabucjkhjmt-egstyht-9002-zvbpv-33-azdyswvnz- zqw-xlhckdkwjdxqbb-ccenhgp-devices/ijmwo-afsxwwgmocw-nauz SARS-CoV-2 Source CAN COVERER Swab [facility] Specimen (Source) Anatomical Collection Method Collection Time Re ceived Time Location / / Volume Laterality Nasopharyngeal Swab 08/12/2021 4:02 08/12 PM EDT 4:49 PM EDT Comment: Symptoms->Surveillance Resulting Agency Comment Spec In Lab Viviana Camacho MD MICROBIOLOGY - GENERAL ORDER ARLEY Performing Organization Address City/State/ZIP Code Phon e Number [place] [id number] CT Abdomen & Pelvis [...] who have questions please contact the health physician locums urgent care that requested your imaging first. ? Electronically signed by: Jas chairez MD, [facility] ([phone]), at 08/12/2021 3:53 PM Narrative 08/12/2021 3:53 PM EDT EXAMINATION: CT [...] ho have questions please contact the health physician locums urgent care that requested your imaging first. Electronically signed by: Jas chairez MD, [facility] ([phone]), at 08/12/2021 3:53 PM Tu Banegas VACCINE MANAGER IMG CT ORDERABLES (ABNORMAL) BLOOD GAS 2 VENOUS (08/12/2021 2:15 PM EDT) Analysis Performed At [facility] Time Signature pH Lan 7.43 (H) 7.32 - [facility] 7.42 [facility] pCO2 Lan 44 41 - 51 [facility] pO2 Lan 29 25 - 40 [facility] HCO3 Lan 28.2 mmol/L [facility] BE Lan 3.8 mmol/L [facility] Hgb Blood Gas 14.2 11.7 - [facility] 15.5 g/dL [facility] O2HB Lan 51.2 % [facility] COHB Lan 5.8 % [facility] Comment: Nonsmokers: 0.5-1.5% COHB Smokers: Variable, but usually less than 10% Toxic: 20-30% COHB Lethal: Greater than 60% COHB METHB Lan 0.2 <=1.5 % [facility] Na Whole Blood 136 135 - 145 mmol/L [facility] K Whole Blood 2.6 (Critical) 3.5 - 5.0 mmol/L [facility] Comment: Noted by percussion instrument tuner. Please note: Patients with WBC >100,000 may have falsely elevated Potassium levels. Contact the Clinical Chemistry L aboratory if there are any questions. ICa Whole Blood 1.19 1.15 - 1.33 mmol/L [facility] Comment: Note: ??Total bilirubin higher than 20 m g/dL may lead to falsely low ionized calcium. CL Whole Blood 97 (L) 98 - 107 mmol/L [facility] Gluc Whole Bld 146 65 - 199 mg/dL [facility] Comment: Diabetes: >=200 mg/dL plus symp toms Lactate WB 1.7 0.5 - 2.2 mmol/L [facility] BGas Source Venous [facility] Specimen Anatomical Collection Method Collection Time Receive d Time (Source) Location / / Volume Laterality Blood 08/12/2021 2:15 PM 2:15 EDT PM EDT Viviana Camacho MD CHEMISTRY ORDERABLES Performing Organization Address City/State/ZIP Code Phon e Number [place] [phone]OS[address] LAB[address]ORY Drive (ABNORMAL) Differential, Automated (08/12/2021 2:10 PM EDT) [facility] Method Time Signature Neutrophils % 66.7 % [facility] Neutr Abs (ANC) 11.06 (H) 1.70 - [facility] 6.10 [facility] x10(3)/[facility] Lymphocytes % 18.6 % [facility] Lymphocytes Abs 3.1 0.9 - 3.2 [facility] x10(3)/[facility] LABORATORY Monocytes % 7.7 % [facility] Monocyte Abs 1.3 (H) 0.3 - 0.9 [facility] x10(3)[facility] LABORATORY Eosinophils % 5.6 % [facility] Eosinophils Abs 0.9 (H) 0.0 - 0.4 [facility] x10(3)[facility]ORATORY Basophils % 1.0 % [facility] Basophils Abs 0.2 (H) 0.0 - 0.1 [facility] x10(3)[facility]ORATORY Immature Gran % 0.40 % [facility] Comment: Immature granulocytes(IG's)percentage an d absolute count will include metamyelocytes, myelocytes, and promyelo cytes. Blood smears from CBCs yielding IG's will be scanned manually for concor dance. If this scan disagrees with the automated IG or if promyelocytes are not ed, a manual differential will be performed. [place]ant[place] Gran Abs 0.06 (H) 0.00 - 0.04 x10(3)/[facility] LABORATORY Specimen Anatomical Collection Method Collection Time Receive d Time (Source) Location / / Volume Laterality Blood 08/12/2021 2:10 PM 2:20 EDT PM EDT Resulting Agency Comment Spec In Lab Tu Banegas APRN HEMATOLOGY ORDERABLES Performing Organization Address City/State/[place] [address] (ABNORMAL) Hemogram (08/12/2021 2:10 PM EDT) Analysis Performed At Patho logist Time Signature WBC 16.6 (H) 4.0 - 9.5 [facility] x10(3)/[facility] LABORATORY RBC 4.60 4.00 - [facility] 5.21 [facility] x10(6)/[facility] LABORATORY Hemoglobin 13.4 11.7 - [facility] 15.5 g/dL [facility] Hematocrit 40.7 35.7 - [facility] 45.8 % [facility] MCV 88.5 82.6 - [facility] 94.4 [facility]ORATORY MCH 29.1 27.1 - [facility] 32.0 pg [facility] MCHC 32.9 31.7 - [facility] 35.0 g/dL [facility] Platelets 480 (H) 145 - 357 [facility] x10(3)/[facility] LABORATORY RDWSD 41.2 37.0 - [facility] 46.0 [facility] RDWCV 12.6 11.5 - [facility] 14.1 % [facility] MPV 9.2 7.6 - 12.9 [facility] LABORATORY nRBC % Auto 0.0 % [facility] nRBC Abs Auto 0.000 0.000 - [facility] 0.000 [facility] x10(3)/[facility] LABORATORY Specimen Anatomical Collection Method Collection Time Receive d Time (Source) Location / / Volume Laterality Blood 08/12/2021 2:10 PM 2 2:20 EDT PM EDT Resulting Agency Comment Spec In Lab Tu Banegas APRN HEMATOLOGY ORDERABLES Performing Organization Address City/State/[place] [address] (ABNORMAL) Basic Metabolic Panel (non-fasting) (08/12/2021 2:10 PM EDT) athologist Signature Glucose Lvl 147 65 - 199 [facility] mg/dL [facility] Comment: Diabetes: >=200 mg/dL plus symp toms BUN 16 8 - 18 mg/dL [facility] Creatinine 0.64 (L) 0.70 - 1.20 mg/dL [facility] Sodium 135 135 - 145 mmol/L [facility] Potassium 2.7 (Critical) 3.5 - 5.0 mmol/L [facility] Comment: called by EB/read back by Lana Pantoja 5-3 0-22 @ 1747 Please note: ??Patients with WBC >100,00 0 may have falsely elevated Potassium levels. ??For accurate Potassium quantif ication in these patients send serum separator tube (gold top) for subsequent determinations. ??Contact the Clinical Chemistry Laboratory if there are any qu estions. Chloride 96 (L) 98 - 107 mmol/L [facility] CO2 27 22 - 31 mmol/L [facility] Anion Gap 12 5 - 15 mmol/L [facility] Calcium 8.7 8.5 - 10.5 mg/dL [facility] Estimated GFR 98 >=60 mL/min/1.73 m?? [facility] Comment: This patient? s estimated [...] / Volume Laterality Blood 08/12/2021 2:10 PM 2:20 EDT PM EDT Resulting Agency Comment Spec In Lab Tu Lobitodaniellapanteramary TAMMY CHEMISTRY ORDERABLES Performing Organization Address City/State/ZIP Code Phon e Number [place] [phone] LAB[address]ORY Drive documented in this encounter Visit Diagnoses Not on filedocumented in this encounter Admitting Diagnoses Diagnosis Wound [...] Given 08/21/2021 11:26 PM EDT 1,000 mg atorvastatin (Lipitor) tablet 20 mg Given 08/21/2021 5:38 PM EDT 20 mg 20 mg, Oral, EVERY EVENING, First dose on 08/12/21 at 2230, Until Discontinued, Routine Given 08/20/2021 5:13 PM EDT 20 mg Given 08/18/2021 4:59 PM EDT 20 mg dextrose 10% infusion 250 mL, at 1,000 mL/hr, Intravenous, IRIS RY 30 MIN PRN, Starting on Thu08/13/21 at 1130, Until Kiara 08/22/21 at 1409, For B G 50-70 mg/dL: [...] Given 08/20/2021 8:09 AM EDT 40 mg glucagon (Glucagen) (1 mg/mL) injection solution [...] 8:10 AM EDT 25 mg HYDROmorphone (Dilaudid) tablet 2 mg Given 08/17/2021 [...] Given 08/13/2021 12:51 PM EDT 3 Units lidocaine (Lidoderm) 5% Patch Applied 08/18/2021 2:12 [...] patch metroNIDAZOLE (Flagyl) tablet 500 mg Given 08/22/2021 8:18 AM EDT 500 mg 500 mg, Oral, 3 TIMES DAILY, First dose on Thu08/16/21 at 2100, Until Discontinued, Routine Given 08/21/2021 8:21 PM EDT 500 mg Given 08/21/2021 3:36 PM EDT 500 mg ondansetron (pf) (Zofran) (2 mg/mL) inje ction 4 mg 4 mg, Intravenous, EVERY 8 HOURS PRN, St arting on 08/12/21 at 1528, Until Kiara 08/22/21 at 1409, Nausea potassium chloride ER (K-Dur/Klor-Con) tablet Given 8:18 AM EDT 20 mEq 20 mEq 20 mEq, Oral, 2 TIMES DAILY, First dose on Thu08/12/21 at 2230, Until Discontinued, 20 mEq tablet may be dissolved in water for administration, Routine Given 08/21/2021 8:21 PM EDT 20 mEq Given 08/21/2021 8:45 AM EDT 20 mEq sodium chloride 0.9 % (flush) (BD PosiFlush Given 08/22/2021 8:1 9 AM EDT 5 mLs Normal Saline 0.9) flush 5 mL 5 mL, Intravenous, 2 TIMES DAILY, First dose on Thu08/12/21 at 2230, Until Discontinued, Routine Given 08/21/2021 8:18 PM EDT 5 mLs Given 08/21/2021 8:45 AM EDT 5 mLs documented in this [...] Patient/family refused) 0552 (Given - Provider: Joshua Mccallum RN)1210 (Given - Provider: Evelia Durham RN)1738 (Given - Provider: Evelia Durham RN)2326 (Given - Provider: Joshua Mccallum RN) 0533 (Given - Provider: Joshua Mccallum RN)1155 (Given - Provider: Evelia Durham RN) 1,000 mg, Oral, EVERY 6 HOURS SCHEDULED, First dose (after last modification) on Thu08/13/21 at 0600, Until Discontinued, Administer for temperature greater than or equal to 38.2 degrees celsius. Maximu 1819 (Given - Provider: Kandi Grubbs RN)2323 (Given - Provider: Joshua Mccallum RN) m daily dose of acetaminophen from all s ources not to exceed 4,000 mg. When ordered for pain, acetaminophen should be given even when other ordered pain medications are indicated., Routine atorvastatin (Lipitor) tablet 20 mg 1713 (Given - Prov ider: Kandi Grubbs RN) 1738 (Given - Provider: Evelia Durham RN) 20 [...] Received late.) 1029 (Given - Provider: Dell Doss)1200 (Due - Provider: Admin Adt) 0-8 Units, [...] Provider: Dell Doss)1536 (Given - Provider: Evelia Durham, RN)2020 (Given - Provider: Joshua Mccallum RN) [...] (CANCELED) 1235 (New Bag - Provider: Kandi Grubbs RN)1335 (Stopped - Provider: Kandi Grubbs RN) 0049 (New Bag - Provider: Joshua gama RN)0149 (Stopped - Provider: Joshua Mccallum RN) 1 g, Intravenous, EVERY 12 HOURS, First [...] 10 mg, Rectal, DAILY PRN, Starting on Mo n 08/12/21 at 2142, Until Kiara 08/22/21 at 1409, Constipation, Administer if needed per [...] IRIS RY 30 MIN PRN, Starting on e 08/13/21 at 1130, Until Kiara 08/22/21 at 1409, For BG 50-70 mg/dL: Oral [...] or Regular (not diet) soda OR If CAN COVERER O, give 15 gram glucose 40% oral [...] GENA)2221 (See Alternative - Provider: Joshua Mccallum, RN) 2 mg, Oral, EVERY 4 HOURS [...] Starting on Thu08/12/21 at 2142, Until Kiara 08/22/21 at 1409, for discomfort with PIV insertion, Routine melatonin tablet 6 mg 6 mg, Oral, NIGHTLY PRN, Starting on Thu08/12/21 at 2142, Until Kiara 08/22/21 at 1409, Sleep, Routine ondansetron (pf) (Zofran) (2 mg/mL) injection 4 mg 4 mg, Intravenous, EVERY 8 HOURS PRN, St arting on Thu08/12/21 at 1528, Until Thu08/22/21 at 1409, Nausea sodium chloride 0.9 % (flush) (BD PosiFlush Normal Saline 0.9) f lush 5-20 mL 5-20 mL, Intravenous, EVERY 1 MIN PRN, S tarting on Thu08/12/21 at 2142, Until Kaira 08/22/21 at 1409, flush, Flush pertains to all [...] episode. & nbsp; For persistent hypoglycemia, con wind field manager longer-acting treatment for the duration of the [...] Routine documented in this encounter Care Teams Panel Wirer Relationship Specialty Start Date End Date Ally Ortiz APRN PCP - General Internal Medicine 04/24/[address] [place] [address] documented as of this encounter
--- OUTSIDE RECORDS SUMMARY | 2021-09-27 14:51 | XMS_ITS | Encounter Summary ---
:1960 Author Organization [facility] [place] [address] Care Team Providers Name Role Phone Ally Ortiz APRN Primary Care Provider Reason for Visit Reason Comments Post-op Problem Auth/Cert Specialty Diagnoses / Procedures Referred By Contact Refer red To Contact Diagnoses Wound infection after surgery Procedures ER IPI Referral ID Status Reason Start Date Expiration Date Visits Requ ested Visits Authorized [id number] 1 1 Encounter Details Date Type Department Care Team Description 08/17/2021 Surgery Main Operating Room Mal Watters MD DEBRIDEMENT SKIN AND [facility] SUBCU, FIRST 20 SQ CM, Hospital ABDOMEN (WRVU 1.01) [place], [place] [address] [facility] [place] [address] [phone] Social History Tobacco Use Types Packs/Day Years [...] Sign Reading Time Taken Comments Blood Pressure 142/97 08/17/2021 11:22 AM EDT Pulse 64 08/16/2021 4:28 AM EDT Temperature 37 ??C (98.6 ??F) 08/17/2021 11:22 AM EDT Respiratory Rate 18 08/17/2021 11:22 AM EDT Oxygen Saturation 92% 08/17/2021 11:22 AM EDT Inhaled Oxygen Concentration - - [...] (WRVU 12.04) (Midline) Operative findings: 08/12/2021 - [id number] abscess of abdominal wall over mesh. - [...] One white sponge and one black sponge placed.??[id number] wound.?? 08/17/2021 -22 x 14 x 4 [...] symptoms. Hospital Course: Ms. Montgomery presented the [facility] emergency department and subsequently seen by the [...] Procedure Component Value Units Date/Time COVID-19 PCR [[id number]] Collected: 08/15/21 1531 Lab Status: Final result [...] diagnosis of COVID-19 is performed using the Sanaexpert m SARS-CoV-2 Assay as authorized by the FDA Emergency Use Authorization (EUA). This EUA assay is intended for In-vitro Diagnostic (IVD) use with respiratory specimens such as nasopharyngeal swabs collected from individuals during the acute phase of infection. This assay is performed based on the instructions for use provided by [employer] and additional guidance provided by CDC and FDA. Testing is performed in the [facility] Laboratory within the Department of Pathology and Laboratory Medicine at [facility], certified under the Clinical Laboratory [...] fact sheets at the following FDA website: https://www.fda.gov/medical-devices/rdrbqqmrbsz-rqzrxzt-1044-hgldg-94-qvcxxrddb- cgx-xwqrgxnmlxijwo-vgrpasp-devices/hobjv-hcghlkmcmsi-cpjw SARS-Cov-2 RNA Source [place] Swab Body Fluid Culture, Aerobic & Anaerobic Abdominal Fluid [[id number]] (Abnormal) Collected: 08/12/211948 Lab Status: Final result Specimen: Abdominal Fluid Updated: 08/16/21 1551 Tissue Culture, Aerobic & Anaerobic Stomach [[id number]] (Abnormal) Collected: 08/12/211948 Lab Status: Final result Specimen: Stomach Updated: 08/20/21 1236 Body Fluid Culture, Aerobic [[id number]] (Abnormal) Collected: 08/12/211948 Lab Status: Final result Specimen: Abdominal Fluid Updated: 08/16/21 1319 Body Fluid Culture -- Moderate mixed Gram Positive organisms including Coagulase negative Staphylococcus species Susceptibilities previously reported Gram Stain -- Cytocentrifuge Gram Stain performed Neutrophils seen Many Gram Positive Cocci seen Results called to and read back by Dilip rojas 08/12/21 22:08:54 WS Anaerobic Culture [[id number]] Collected: 08/12/211948 Lab Status: Final result Specimen: Abdominal Fluid Updated: 08/16/21 1551 Anaerobic Culture No anaerobic organisms isolated Tissue culture [[id number]] (Abnormal) (Susceptibility) Collected: 08/12/211948 Lab Status: Final [...] Sensitive [1] Gentamicin is not appropriate for [place]-therapy. Linear View Anaerobic Culture [[id number]] (Abnormal) (Susceptibility) Collected: 08/12/21 1949 Lab Status: Final result Specimen: Stomach Updated: 08/18/21 1355 Anaerobic Culture Moderate Finegoldia magna Susceptibility Finegoldia magna MINIMUM INHIBITORY CONCENTRATION Metronidazole Sensitive Penicillin Sensitive Linear View COVID-19 PCR [[id number]] Collected: 08/12/21 1602 Lab Status: Final result [...] using the Simplexa COVID-19 Direct Assay by [employer] as authorized by the FDA issued Emergency [...] Department of Pathology and Laboratory Medicine at [facility], certified under the Clinical Laboratory [...] fact sheets at the following FDA website: https://www.fda.gov/medical-devices/kcbzocojtvn-swnzpej-0086-vhwwa-35-sciyilykf- arq-murvmppvtdpuuw-mpcdawf-devices/ehijg-gcdkdeltwsz-akay SARS-CoV-2 Source [place] Swab Abscess/Wound Asp Culture, Aerobic and Anaerobic Deep Wound; Abdomen [[id number]] Collected: 07/23/211536 Lab Status: Final result Specimen: Deep Wound from Abdomen Updated: 07/27/21 1340 Abscess/Wound Aspirate Culture [[id number]] Collected: 07/23/211536 Lab Status: Final result Specimen: Deep Wound from Abdomen Updated: 07/27/21 1029 Abscess/Wound Aspirate Culture -- Normal cutaneous tania isolated from broth culture. No growth on original plates. Gram Stain -- Few Neutrophils seen No microorganisms seen. Anaerobic Culture [[id number]] Collected: 07/23/211536 Lab Status: Final result Specimen: [...] who have questions please contact the health housekeeper caregiver that requested your imaging first. Electronically signed by: Jas Weir MD, [facility] ([phone]), at 08/12/2021 3:53 PM Discharge Physical Examination: Vital Signs: Last value [...] Center 09/03/2021 10:30 AM Paloma Mota APRN [facility] 09/30/2021 1:30 PM Werner Harrell MD [facility] ID 5C [facility] Outpatient Services/Studies: Referral to Home Health Referral Priority: Routine Referral Type: Home Health Care Referral Reason: Consult, Test & Treat Referred to Provider: [facility] Number of Visits Requested: 999 Special Instructions Given to Patient at Discharge:. An After Visit Summary was printed and given to the patient. Patient Instructions [facility] Department of General Surgery Discharge Instructions CALL [...] with the Surgery nurses. The number is [phone]. - During the night or weekends call the [facility] gas compressor operator at [phone] and ask to speak to the surgery resident integration solution architect for general surgery. Please note: Your surgeon may not be Paleontology Teacher, especially during the night or on weekends, [...] Center 09/03/2021 10:30 AM Paloma Mota APRN [facility] 09/30/2021 1:30 PM Werner Harrell MD [facility] ID 5C [facility] [x] Follow-up appointment with General Surgery has already been scheduled [] A request for a follow-up appointment has been made and you should receive information via phone/mail in the next week. If you do not hear anything, please call the clinic at [phone] to confirmor reschedule. If you need a prior authorization, please call the General Surgery Clinic nurses [phone] for prior authorizations assistance General Instructions None Your care was managed by the Trauma and Acute Care Surgery Team at [facility]. If you have any questions or concerns, please feel free to contact us. Provider Contact Information: General Surgery Scheduling: Nurses line for questions: [facility] (after business hours): CC: TAMMY Mrax APRN Signed: Rosmery Moreno MD Department of Surgery 08/22/2021 Acute Care Surgery Pager [phone] documented in this encounter Discharge Instructions Patient InstructionsRosmery Moreno MD - 08/22/2021 8:54 AM EDT [facility] Department of General Surgery Discharge Instructions CALL [...] with the Surgery nurses. The number is [phone]. - During the night or weekends call the [facility] gas compressor operator at [phone] and ask to speak to the surgery resident integration solution architect for general surgery. Please note: Your surgeon may not be Paleontology Teacher, especially during the night or on weekends, [...] Center 09/03/2021 10:30 AM Paloma Mota APRN [facility] 09/30/2021 1:30 PM Werner Harrell MD [facility] ID 5C [facility] [x] Follow-up appointment with General Surgery has already been scheduled [] A request for a follow-up appointment has been made and you should receive information via phone/mail in the next week. If you do not hear anything, please call the clinic at [phone] to confirmor reschedule. If you need a prior authorization, please call the General Surgery Clinic nurses [phone] for prior authorizations assistance documented in this [...] 1 mg Take 1 mg by 0 022 09/19/2021 Tablet mouth nightly as needed. [...] WOUND OR DEHISCENCE, EXTENSIVE OR COMPLICATED, TR[facility]K [facility] FOLLOW-UP NEEDED: Does pt need to f-u with surgeon or [facility] [place] (please indicate reason if attending provider): Yes, [facility] How soon should TACS f/u be? 2 [...] Fluid Culture, Aerobic & Anaerobic Abdominal Fluid [[id number]] (Abnormal) Collected: 08/12/211948 Lab Status: Preliminary result Specimen: Abdominal Fluid Updated: 08/14/21 1059 Tissue Culture, Aerobic & Anaerobic Stomach [[id number]] (Abnormal) Collected: 08/12/211948 Lab Status: Preliminary result Specimen: Stomach Updated: 08/15/21 0949 Body Fluid Culture, Aerobic [[id number]] (Abnormal) Collected: 08/12/211948 Lab Status: Preliminary result Specimen: Abdominal Fluid Updated: 08/14/21 1059 Body Fluid Culture -- Moderate mixed Gram Positive organisms including Coagulase negative Staphylococcus species Gram Stain -- Cytocentrifuge Gram Stain performed Neutrophils seen Many Gram Positive Cocci seen Results called to and read back by Dilip rojas 08/12/21 22:08:54 WS Anaerobic Culture [[id number]] Collected: 08/12/211948 Lab Status: Preliminary result Specimen: Abdominal Fluid Updated: 08/13/21 1135 Anaerobic Culture No anaerobic organisms isolated to date Tissue culture [[id number]] (Abnormal) (Susceptibility) Collected: 08/12/211948 Lab Status: Preliminary [...] Sensitive [1] Gentamicin is not appropriate for [place]-therapy. Linear View A/P: 61 year old female [...] Moreno MD 08/21/21 Acute Care Surgery Pager: [phone] Attending Addendum I have seen and examined [...] 27.9) performed by Miryam Wiley MD at [facility] MAIN OR ??? PRO COLONOSCOPY, DIAGNOSTIC N/A 08/18/2019 COLONOSCOPY, DIAGNOSTIC performed by Emigdio Lanier MD at [facility] ENDOSCOPY ??? PRO CYSTOSCOPY, INSERT URETERAL STENT Right 09/14/2019 CYSTO, STENT PLACEMENT INTRAOP, TEMPORARY (WRVU 2.82) performed by Werner Fournier MD at [facility] OR ? ? PRO DEBRIDEMENT MUSCLE AND FASCIA 20 SQ CM/< Midline 08/15/2021 DEBRIDEMENT SKIN, SUBCU, MUSCLE, ABDOMEN (WRVU 2.7) performed by Olya Daniel MD at [facility] OR ? ? PRO DEBRIDEMENT SUBCUTANEOUS TISSUE 20 SQCM/< Midline 08/17/2021 DEBRIDEMENT SKIN AND SUBCU, FIRST 20 SQ CM, ABDOMEN (WRVU 1.01) performed by Negro Watters MD [facility] OR ??? PRO EXPLORATION OF ABDOMEN N/A 04/25/2020 @EXPLORATORY LAPAROTOMY, WITH/WITHOUT BIOPSY(S) (WRVU 12.54) performed by Liberty Swann MD at [facility] OR ??? PRO IMPLANT MESH HERNIA REPAIR/DEBRIDEMENT CLOSURE N/A 2021 IMPLANT MESH FOR INCISIONAL OR VENTRAL HERNIA REPAIR (WRVU 4.88) performed by Negro Watters MD at [facility] OR ??? PRO INCISION AND DRAINAGE ABSCESS SIMPLE/SINGLE N/A 08/12/2021 I & D ABSCESS, SIMPLE OR SINGLE, TRUNK (WRVU 1.22) performed by Joshua Che MD at [facility] OR ??? PRO MOBILIZE SPLENIC FLEX N/A 09/14/2019 @MOBILIZATION OF SPLENIC FLEXURE (WRVU 2.23) performed by Miryam Wiley MD at [facility] OR ??? PRO OMENTAL FLAP, INTRA-ABDOMINAL 09/14/2019 @OMENTAL FLAP, INTRA-ABDOMINAL (WRVU 6.54) performed by Miryam Wiley MD at [facility] OR ??? PRO REPAIR RECURR INCIS HERNIA, DEONTE N/A 04/25/2020 HERNIA REPAIR, VENTRAL OR INCISIONAL, RECURRENT, INCARCERATED (WRVU 15.53) performed by Liberty Swann MD at [facility] OR ??? PRO REPAIR RECURR INCIS HERNIA, DEONTE Left 04/25/2021 HERNIA REPAIR, VENTRAL OR INCISIONAL, RECURRENT, INCARCERATED (WRVU 15.53) performed by Loco White MD at [facility] OR ??? PRO REPAIR RECURR INCIS HERNIA, DEONTE N/A 2021 HERNIA REPAIR, VENTRAL OR INCISIONAL, RECURRENT, INCARCERATED (WRVU 15.53) performed by Negro Watters MD at [facility] MAIN OR ??? PRO SEC CLSR SURG WOUND/DEHSN EXTENSIVE/COMPLICATED Midline 08/19/2021 SECONDARY CLOSURE SURGICAL WOUND OR DEHISCENCE, EXTENSIVE OR COMPLICATED, TRUNK (WRVU 12.04) performed by Liberty Swann MD at [facility] MAIN OR ??? PRO SIGMOIDOSCOPY, DIAGNOSTIC N/A 09/14/2019 SIGMOIDOSCOPY, FLEXIBLE W/WO SPECIMEN BY BRUSHING OR WASHING (WRVU 0.84) performed by Miryam Wiley MD at [facility] MAIN OR ??? TUBAL LIGATION Social History: Home set up: pt lives in a large 2 level home with several family members. All needs met on the 1stlevel and there is a ramp at the entrance. Pt essentially has 24/ supervision/assist available. Bathroom has a stall shower with grab bars. PLOF: Pt is independent with most ADLs; EMELIA assist with drying off after shower and occasional bathing if needed. Pt wears dresses and slip on shoes. Pt c/o difficulty with anything that requires bending but uses a pug mill operator for picking things up from the floor, a sock aid when she wears socks, and toilet bidet for BM hygiene. Family manages wage adjuster, shopping and cooking. Pt uses a rollator [...] WFL Vision & Perception: WNL/WFL corrective lenses customer expert Communication/Hearing: WFL Musculoskeletal: Hand dominance: right Strength/AROM: [...] and measurable assessment of functional outcome. Pager: [phone] Patricia Rai OTR/L Occupational Therapy Rehabilitation Department Uluis, Werner Gama MD - 08/20/2021 6:40 PM EDT INFECTIOUS DISEASE FOLLOW-UP NOTE Patient ID: Jahaira Montgomery Room: [address] [place] [address] Active ID Issue(s): Abdominal SSTI infection involving [...] do not hesitate to page ID RED [id number] with any questions or concerns. Werner Harrell MD Infectious Diseases Fellow Pager #: [phone] 08/20/2021 6:22 PM Associated attestation - Liberty [...] EDT RN/CM has updated [employer] rep/Georges and Charlo VNA. Pt will NOT be discharged home with VAC in place. Bloom (Jonas) GENA Santos RN/CM - Cellphone: [phone] Pager: [phone] Covering Service RN/CM Arvin Lacy, PT - [...] 27.9) performed by Miryam Wiley MD at [facility] OR ??? PRO COLONOSCOPY, DIAGNOSTIC N/A 08/18/2019 COLONOSCOPY, DIAGNOSTIC performed by Emigdio Lanier MD at [facility] ENDOSCOPY ??? PRO CYSTOSCOPY, INSERT URETERAL STENT Right 09/14/2019 CYSTO, STENT PLACEMENT INTRAOP, TEMPORARY (WRVU 2.82) performed by Werner Fournier MD at [facility] OR ? ? PRO DEBRIDEMENT MUSCLE AND FASCIA 20 SQ CM/< Midline 08/15/2021 DEBRIDEMENT SKIN, SUBCU, MUSCLE, ABDOMEN (WRVU 2.7) performed by Olya Daniel MD at [facility] OR ? ? PRO DEBRIDEMENT SUBCUTANEOUS TISSUE 20 SQCM/< Midline 08/17/2021 DEBRIDEMENT SKIN AND SUBCU, FIRST 20 SQ CM, ABDOMEN (WRVU 1.01) performed by Negro Watters MD [facility] OR ??? PRO EXPLORATORY OF ABDOMEN N/A 04/25/2020 @EXPLORATORY LAPAROTOMY, WITH/WITHOUT BIOPSY(S) (WRVU 12.54) performed by Liberty Swann MD at [facility] OR ??? PRO IMPLANT MESH HERNIA REPAIR/DEBRIDEMENT CLOSURE N/A 2021 IMPLANT MESH FOR INCISIONAL OR VENTRAL HERNIA REPAIR (WRVU 4.88) performed by Negro Watters MD at [facility] OR ??? PRO INCISION AND DRAINAGE ABSCESS SIMPLE/SINGLE N/A 08/12/2021 I & D ABSCESS, SIMPLE OR SINGLE, TRUNK (WRVU 1.22) performed by Joshua Che MD at [facility] OR ??? PRO MOBILIZE SPLENIC FLEX N/A 09/14/2019 @MOBILIZATION OF SPLENIC FLEXURE (WRVU 2.23) performed by Miryam Wiley MD at [facility] OR ??? PRO OMENTAL FLAP, INTRA-ABDOMINAL 09/14/2019 @OMENTAL FLAP, INTRA-ABDOMINAL (WRVU 6.54) performed by Miryam Wiley MD at [facility] OR ??? PRO REPAIR RECURR INCIS HERNIA, DEONTE N/A 04/25/2020 HERNIA REPAIR, VENTRAL OR INCISIONAL, RECURRENT, INCARCERATED (WRVU 15.53) performed by Liberty Swann MD at [facility] OR ??? PRO REPAIR RECURR INCIS HERNIA, DEONTE Left 04/25/2021 HERNIA REPAIR, VENTRAL OR INCISIONAL, RECURRENT, INCARCERATED (WRVU 15.53) performed by Loco White MD at [facility] OR ??? PRO REPAIR RECURR INCIS HERNIA, DEONTE N/A 2021 HERNIA REPAIR, VENTRAL OR INCISIONAL, RECURRENT, INCARCERATED (WRVU 15.53) performed by Negro Watters MD at [facility] OR ??? PRO SEC CLSR SURG WOUND/DEHSN EXTENSIVE/COMPLICATED Midline 08/19/2021 SECONDARY CLOSURE SURGICAL WOUND OR DEHISCENCE, EXTENSIVE OR COMPLICATED, TRUNK (WRVU 12.04) performed by Liberty Swann MD at [facility] OR ??? PRO SIGMOIDOSCOPY, DIAGNOSTIC N/A 09/14/2019 SIGMOIDOSCOPY, FLEXIBLE W/WO SPECIMEN BY BRUSHING OR WASHING (WRVU 0.84) performed by Miryam Wiley MD at [facility] OR ??? TUBAL LIGATION Social History: Pt [...] in this evaluation. Time IN / OUT: 4617-6192 Total Minutes, Physical Therapy: 15 Billing Code: Swetha Lacy, PT Pager: [phone] Physical Therapy Inpatient Rehabilitation Department Ai Cunningham [...] Fluid Culture, Aerobic & Anaerobic Abdominal Fluid [[id number]] (Abnormal) Collected: 08/12/211948 Lab Status: Preliminary result Specimen: Abdominal Fluid Updated: 08/14/21 1059 Tissue Culture, Aerobic & Anaerobic Stomach [[id number]] (Abnormal) Collected: 08/12/211948 Lab Status: Preliminary result Specimen: Stomach Updated: 08/15/21 0949 Body Fluid Culture, Aerobic [[id number]] (Abnormal) Collected: 08/12/211948 Lab Status: Preliminary result Specimen: Abdominal Fluid Updated: 08/14/21 1059 Body Fluid Culture -- Moderate mixed Gram Positive organisms including Coagulase negative Staphylococcus species Gram Stain -- Cytocentrifuge Gram Stain performed Neutrophils seen Many Gram Positive Cocci seen Results called to and read back by Dilip rojas 08/12/21 22:08:54 WS Anaerobic Culture [[id number]] Collected: 08/12/211948 Lab Status: Preliminary result Specimen: Abdominal Fluid Updated: 08/13/21 1135 Anaerobic Culture No anaerobic organisms isolated to date Tissue culture [[id number]] (Abnormal) (Susceptibility) Collected: 08/12/211948 Lab Status: Preliminary [...] Sensitive [1] Gentamicin is not appropriate for [place]-therapy. Linear View A/P: 61 year old female [...] SSI HEME: DVT ppx with lovenox ID: Juana dale MSK: RADHA PPX: PPI, IS, SCDs LINES: PIV DISPO: Floor status, Attempt Cardiopulmonary Resuscitation - Inpatient Rosmery Moreno MD 08/20/21 Acute Care Surgery Pager: [phone] Attending Addendum I have seen and examined [...] Fluid Culture, Aerobic & Anaerobic Abdominal Fluid [[id number]] (Abnormal) Collected: 08/12/211948 Lab Status: Preliminary result Specimen: Abdominal Fluid Updated: 08/14/21 1059 Tissue Culture, Aerobic & Anaerobic Stomach [[id number]] (Abnormal) Collected: 08/12/211948 Lab Status: Preliminary result Specimen: Stomach Updated: 08/15/21 0949 Body Fluid Culture, Aerobic [[id number]] (Abnormal) Collected: 08/12/211948 Lab Status: Preliminary result Specimen: Abdominal Fluid Updated: 08/14/21 1059 Body Fluid Culture -- Moderate mixed Gram Positive organisms including Coagulase negative Staphylococcus species Gram Stain -- Cytocentrifuge Gram Stain performed Neutrophils seen Many Gram Positive Cocci seen Results called to and read back by Dilip rojas 08/12/21 22:08:54 WS Anaerobic Culture [[id number]] Collected: 08/12/211948 Lab Status: Preliminary result Specimen: Abdominal Fluid Updated: 08/13/21 1135 Anaerobic Culture No anaerobic organisms isolated to date Tissue culture [[id number]] (Abnormal) (Susceptibility) Collected: 08/12/211948 Lab Status: Preliminary [...] Sensitive [1] Gentamicin is not appropriate for [place]-therapy. Linear View A/P: 61 year old female [...] Moreno MD 08/19/21 Acute Care Surgery Pager: [phone] Attending Addendum I have seen and examined [...] Fluid Culture, Aerobic & Anaerobic Abdominal Fluid [[id number]] (Abnormal) Collected: 08/12/211948 Lab Status: Preliminary result Specimen: Abdominal Fluid Updated: 08/14/21 1059 Tissue Culture, Aerobic & Anaerobic Stomach [[id number]] (Abnormal) Collected: 08/12/211948 Lab Status: Preliminary result Specimen: Stomach Updated: 08/15/21 0949 Body Fluid Culture, Aerobic [[id number]] (Abnormal) Collected: 08/12/211948 Lab Status: Preliminary result Specimen: Abdominal Fluid Updated: 08/14/21 1059 Body Fluid Culture -- Moderate mixed Gram Positive organisms including Coagulase negative Staphylococcus species Gram Stain -- Cytocentrifuge Gram Stain performed Neutrophils seen Many Gram Positive Cocci seen Results called to and read back by Dilip rojas 08/12/21 22:08:54 WS Anaerobic Culture [[id number]] Collected: 08/12/211948 Lab Status: Preliminary result Specimen: Abdominal Fluid Updated: 08/13/21 1135 Anaerobic Culture No anaerobic organisms isolated to date Tissue culture [[id number]] (Abnormal) (Susceptibility) Collected: 08/12/211948 Lab Status: Preliminary [...] Sensitive [1] Gentamicin is not appropriate for [place]-therapy. Linear View A/P: 61 year old female [...] Reyes MD 08/18/21 Acute Care Surgery Pager: [phone] SURGICAL ATTENDING NOTE: Pt seen and examined [...] Fluid Culture, Aerobic & Anaerobic Abdominal Fluid [[id number]] (Abnormal) Collected: 08/12/21 194 Lab Status: Preliminary result Specimen: Abdominal Fluid Updated: 08/14/21 1059 Tissue Culture, Aerobic & Anaerobic Stomach [[id number]] (Abnormal) Collected: 08/12/211948 Lab Status: Preliminary result Specimen: Stomach Updated: 08/15/21 0949 Body Fluid Culture, Aerobic [[id number]] (Abnormal) Collected: 08/12/211948 Lab Status: Preliminary result Specimen: Abdominal Fluid Updated: 08/14/21 1059 Body Fluid Culture -- Moderate mixed Gram Positive organisms including Coagulase negative Staphylococcus species Gram Stain -- Cytocentrifuge Gram Stain performed Neutrophils seen Many Gram Positive Cocci seen Results called to and read back by Dilip rojas 08/12/21 22:08:54 WS Anaerobic Culture [[id number]] Collected: 08/12/211948 Lab Status: Preliminary result Specimen: Abdominal Fluid Updated: 08/13/21 1135 Anaerobic Culture No anaerobic organisms isolated to date Tissue culture [[id number]] (Abnormal) (Susceptibility) Collected: 08/12/211948 Lab Status: Preliminary [...] Sensitive [1] Gentamicin is not appropriate for [place]-therapy. Linear View A/P: 61 year old female [...] Moreno MD 08/17/21 Acute Care Surgery Pager: [phone] SURGICAL ATTENDING NOTE: Pt seen and examined [...] Care Surgery Inpatient Progress Note ID: Jahaira Mnotgomery is a 61 y.o. female with tobacco [...] for vancomycin trough 20.1 Micro: Tissue culture [[id number]] (Abnormal) Collected: 08/12/211948 Lab Status: Preliminary result Specimen: Stomach Updated: 08/15/2149 Tissue Culture Moderate Coagulase negative Staphylococcus species??Abnormal?? [...] Moreno MD 08/16/21 Acute Care Surgery Pager: [phone] SURGICAL ATTENDING NOTE: Pt seen and examined [...] Fluid Culture, Aerobic & Anaerobic Abdominal Fluid [[id number]] (Abnormal) Collected: 08/12/211948 Lab Status: Preliminary result Specimen: Abdominal Fluid Updated: 08/14/21 105 Tissue Culture, Aerobic & Anaerobic Stomach [[id number]] (Abnormal) Collected: 08/12/211948 Lab Status: Preliminary result Specimen: Stomach Updated: 08/15/21 0949 Body Fluid Culture, Aerobic [[id number]] (Abnormal) Collected: 08/12/211948 Lab Status: Preliminary result Specimen: Abdominal Fluid Updated: 08/14/21 1059 Body Fluid Culture -- Moderate mixed Gram Positive organisms including Coagulase negative Staphylococcus species Gram Stain -- Cytocentrifuge Gram Stain performed Neutrophils seen Many Gram Positive Cocci seen Results called to and read back by Dilip rojas 08/12/21 22:08:54 WS Anaerobic Culture [[id number]] Collected: 08/12/211948 Lab Status: Preliminary result Specimen: Abdominal Fluid Updated: 08/13/21 1135 Anaerobic Culture No anaerobic organisms isolated to date Tissue culture [[id number]] (Abnormal) (Susceptibility) Collected: 08/12/211948 Lab Status: Preliminary [...] Sensitive [1] Gentamicin is not appropriate for [place]-therapy. Linear View A/P: 61 year old female [...] DVT ppx with lovenox ID: Vanc MSK: RADAH PPX: PPI, IS, SCDs LINES: PIV DISPO: Floor status, Attempt Cardiopulmonary Resuscitation - Inpatient John Reyes MD 08/15/21 Acute Care Surgery Pager: [phone] Ralph Abdullahi RN - 08/15/2021 6:55 AM [...] to monitor, wound vac intact and set [id number], hemodynamically stable, receiving 6L O2 via SFM [...] monitoring]: Purposeful rounding Call glover within reach [facility] Patient-specific fall prevention interventions for sensory [...] of abdominal wall abscess. OR findings: - [id number] abscess of abdominal wall over mesh. - [...] To OR for I&D abdominal wall hernia. 5/31: Pain well controlled. O: Vitals: Afebrile, HR [...] normalized K Micro: Body Fluid Culture, Aerobic [[id number]] (Abnormal) Collected: 08/12/211948 Lab Status: Preliminary result Specimen: Abdominal Fluid Updated: 08/14/21 1059 Body Fluid Culture --??Abnormal?? Moderate mixed Gram Positive organisms including Coagulase negative Staphylococcus species ??Abnormal?? Gram Stain --??Abnormal?? Cytocentrifuge Gram Stain performed Neutrophils seen Many Gram Positive Cocci seen Results called to and read back by Dilip rojas ??08/12/21 22:08:54 WS ??Abnormal?? Anaerobic Culture [[id number]] Collected: 08/12/211948 Lab Status: Preliminary result Specimen: Abdominal Fluid Updated: 08/13/21 1135 Anaerobic Culture No anaerobic organisms isolated to date Tissue culture [[id number]] (Abnormal) Collected: 08/12/211948 Lab Status: Preliminary result [...] of abdominal wall abscess. OR findings: - [id number] abscess of abdominal wall over mesh. - [...] normalized K Micro: Body Fluid Culture, Aerobic [[id number]] (Abnormal) Collected: 08/12/211948 Lab Status: Preliminary result Specimen: Abdominal Fluid Updated: 08/12/212208 Gram Stain --??Abnormal?? Cytocentrifuge Gram Stain performed Neutrophils seen Many Gram Positive Cocci seen Results called to and read back by Dilip rojas ??08/12/21 22:08:54 WS ??Abnormal?? Tissue culture [[id number]] (Abnormal) Collected: 08/12/211948 Lab Status: Preliminary result [...] Pt c/o LUQ & LLQ abd pain 10/23, toosoon to give oxy & tylenol; PRN [...] [facility], now undergoing serial wound vac [...] 27.9) performed by Miryam Wiley MD at [facility] MAIN OR ??? PRO COLONOSCOPY, DIAGNOSTIC N/A 08/18/2019 COLONOSCOPY, DIAGNOSTIC performed by Emigdio Lanier MD at [facility] ENDOSCOPY ??? PRO CYSTOSCOPY, INSERT URETERAL STENT Right 09/14/2019 CYSTO, STENT PLACEMENT INTRAOP, TEMPORARY (WRVU 2.82) performed by Werner Fournier MD at [facility] MAIN OR ??? PRO EXPLORATORY OF ABDOMEN N/A 04/25/2020 @EXPLORATORY LAPAROTOMY, WITH/WITHOUT BIOPSY(S) (WRVU 12.54) performed by Liberty Swann MD at [facility] MAIN OR ??? PRO IMPLANT MESH HERNIA REPAIR/DEBRIDEMENT CLOSURE N/A 2021 IMPLANT MESH FOR INCISIONAL OR VENTRAL HERNIA REPAIR (WRVU 4.88) performed by Negro Watters MD at [facility] MAIN OR ??? PRO MOBILIZE SPLENIC FLEX N/A 09/14/2019 @MOBILIZATION OF SPLENIC FLEXURE (WRVU 2.23) performed by Miryam Wiley MD at [facility] MAIN OR ??? PRO OMENTAL FLAP, INTRA-ABDOMINAL 09/14/2019 @OMENTAL FLAP, INTRA-ABDOMINAL (WRVU 6.54) performed by Miryam Wiley MD at [facility] MAIN OR ??? PRO REPAIR RECURR INCIS HERNIA, DEONTE N/A 04/25/2020 HERNIA REPAIR, VENTRAL OR INCISIONAL, RECURRENT, INCARCERATED (WRVU 15.53) performed by Liberty Swann MD at [facility] OR ??? PRO REPAIR RECURR INCIS HERNIA, DEONTE Left 04/25/2021 HERNIA REPAIR, VENTRAL OR INCISIONAL, RECURRENT, INCARCERATED (WRVU 15.53) performed by Loco White MD at [facility] OR ??? PRO REPAIR RECURR INCIS HERNIA, DEONTE N/A 2021 HERNIA REPAIR, VENTRAL OR INCISIONAL, RECURRENT, INCARCERATED (WRVU 15.53) performed by Negro Watters MD at [facility] MAIN OR ??? PRO SIGMOIDOSCOPY, DIAGNOSTIC N/A 09/14/2019 SIGMOIDOSCOPY, FLEXIBLE W/WO SPECIMEN BY BRUSHING OR WASHING (WRVU 0.84) performed by Miryam Wiley MD at [facility] MAIN OR ??? TUBAL LIGATION MEDICATIONS: [...] Tamayo MD 08/12/2021 General Surgery consult pager #[phone] I saw and evaluated the patient with [...] (WITH DIFF) REQUEST FOR BLOOD GAS DRAW ([facility]) BASIC METABOLIC PANEL (NON-FASTING) BLOOD GAS [...] left unit via wheelchair accompanied by the WEBSPHERE PORTAL ARCHITECT, along with personal belongings. Care Management Discharge [...] information for follow-up [facility], [place] [address] Transportation: family or friend will provide Functional [...] Merle Santos RN (Jonas) RN/CM - Cellphone: [phone] Pager: [phone] Covering Service RN/CM Plan of Care - [...] GEE drain care. Patient stated that her [id number] will do it when she gets home. [id number]-[id number] has done it before. Midline incision CDI/LETICIA. Active bowel sounds, loose/creamy stool. Refused Miralax. [...] Pt NPO for OR debridement / closure. [facility] 1535 - Pt down to OR. Plan [...] Swann MD - 08/19/2021 5:19 PM EDT [facility] Operative Note Patient Name: Jahaira Montgomery : [id number] MR#: [id number] Case Date: 08/19/2021 Surgeon: Surgeon(s) and Role: [...] Date of Discharge: 08/20/2021 Merle Santos RN RN (Jonas)/CM - Cellphone: [phone] Pager: [phone] Covering Service RN/CM Plan of Care - [...] AM EDT Clinical Pharmacist Note-Vanc Jahaira Montgomery [id number] 1960 Jahaira Montgomery is a 61 y.o. [...] have. Alternately, during off-hours you may call [phone] to contact a pharmacist. Kaye Peña RPH Pager [phone] Plan of Care - Clarissa Hay RN [...] Aly MD - 08/17/2021 12:09 PM EDT [facility] Operative Note Patient Name: Jahaira Montgomery : [id number] MR#: [id number] Case Date: 08/17/2021 Surgeon: Surgeon(s) and Role: [...] 12:30 PM Plan of Care - Pablo Cancino RN - 08/16/2021 6:23 PM EDT OUTCOME [...] Services: Wound care, Registered Nurse Agency Referrals: [facility] from [facility] for RN, OT and KCI for [...] below findings per operative note: Findings: - [id number] abscess of abdominal wall over mesh. - [...] One white sponge and one black sponge placed.??[id number] wound.?? At bedside interview, Jahaira reports that [...] Social History: She lives with brother and vjtgsi-on-tlb in [facility]. They own several cats and dogs. She [...] with questions. Discussed with attending, Dr. Efrem Bhatt DO ID Fellow Red Team Pager: [phone] Infectious Diseases Attending I saw the patient with the infectious diseases fellow. I have made some modifications and agree withthe presentation of data and the assessment and plan as outlined above. The patient appears to understand the plan and also the challenges we face with sterilizing necessary mesh. Viviana Topete MD Professor, Department of Medicine Page [phone] minutes of this 55 minute visit were spent on the floor/unit in counseling or coordination of care with the patient, regarding treatment of infection as detailed in note above. Consult Note - Alberto Murrieta [facility] - 08/16/2021 7:06 AM EDT Clinical Pharmacist Note-Vanc Jahaira Montgomery [id number] 1960 Jahaira Montgomery is a 61 y.o. [...] have. Alternately, during off-hours you may call [phone] to contact a pharmacist. ALBERTO MURRIETA [facility] Pager [phone] Plan of Care - Pablo Cancino RN [...] Operative Note Patient Name: Jahaira Montgomery : [id number] MR#: [id number] Case Date: 08/15/2021 Surgeon: Surgeon(s) and Role: [...] from the original note were not included. [facility] Operative Note Patient Name: Jahaira Montgomery : [id number] MR#: [id number] Case Date: 08/15/2021 Surgeon: Surgeon(s) and Role: [...] white sponge and one black sponge placed. [id number] wound. Anesthesia: General Estimated Blood Loss: 20 [...] appt to remove shelley and came back [facility] yesterday with abdominal pain d/t surgical wound infection. Pt is now s/p I&D in OR and wound vac placement. To OR tomorrow for wound vac change. Source of Information: Team, bedside nurse, medical record, and Patient Introduced self/reviewed role; services accepted. Reason for Hospitalization: Wound infection after surgery Last COVID test: Lab Results Component Value Date COVID19 Not Detected 04/27/2021 [id number] Not Detected 08/12/2021 Past medical History: Past [...] sibling would be surrogate decision maker per [place] surrogate decision making law. (Only good for 180 days) Any patient receiving care at [facility] must abide by [place] law. The hierarchy [...] (i) The agent with financial power of corporate attorney or a conservator appointed in accordance [...] Current DME: none Home Address confirmed as: [address] [place] [id number] Social & Family Supports: Extended Emergency Contact [...] Insurance: N/A Prescription Coverage: Yes Preferred Pharmacy: [facility] [address] [place], [place] - [address] [place] [address] [place], [place] - [address] [facility] [address] [facility] [address] [place] Status: Patient is a : No Primary Care Provider: Ally Mary Ortiz, OVEN DRIER TENDER [phone] Patient/Caregiver Goals of Treatment: feel better Potential Needs for Transition of Care: home health care Agency Referrals: I have met with the patient to: ?? discuss discharge planning needs. ?? provide the [facility], Office of Care Management letter from the Administrative Fellow pertaining to rehab referrals. ?? provide a letter describing our affiliations within the [facility] and educate about their right to choose where referrals are sent. ?? provide a list of Home Health Agencies / Durable Medical Equipment vendors which serve their preferred geographic area. ?? provided patient with [facility] Star Quality Rating handout. They have requested referrals to: [facility] [place] [address] PHONE: [phone] FAX: [phone] Name: ERIC-For wound vac Tel.#: ext [phone] fax#: Equipment ordered:wound vac Note routed to a Personnel Adviser who will communicate referrals to facilities and [...] Case Management Consult Note - Manuel King [facility] - 08/13/2021 12:00 PM EDT TelePharmacy Home [...] be reconciled bythe provider. Please [facility] Medication Reconciliation Pharmacist at for any questions. Manuel King RPH Op Note - Joshua Che MD - 08/12/2021 6:51 PM EDT [facility] Operative Note Patient Name: Jahaira Montgomery : [id number] MR#: [id number] Case Date: 08/12/2021 Surgeon: Surgeon(s) and Role: * Joshua Che MD - Primary * Charly Agrawal MD - Resident Preoperative diagnosis: wound infection Postoperative diagnosis: wound infection Procedure(s) (LRB): I & D ABSCESS, SIMPLE OR SINGLE, TRUNK (WRVU 1.22) (N/A) Findings: - [id number] abscess of abdominal wall over mesh. - [...] 09/30/2021 Office Visit General Surgery Paloma Mota, OVEN DRIER TENDER [facility] [place], [place] [address] (Wo rk) 09/30/2021 Office Visit Infectious Diseases Werner Harrell MD [facility] INFECTIOUS [place], [place] [address] (Wo rk) Scheduled Referrals Name Type [...] SURGICAL WOUND OR EDT DEHISCENCE, EXTENS/COMPLICAT, TRNK POCT GLUCOSE Routine 08/19/2021 12:02 Results for [...] 08/12/2021 4:02 PM Res ults for this (MH/APD/NLH) EDT procedure are in the results section. [...] Signature POC Glucose 105 65 - 199 [facility] mg/dL [facility] Comment: Supplemental ranges: <140 mg/dL before meals <180 mg/dL all other times of the day Specimen Anatomical Collection Method Collection Time Receive d Time (Source) Location / / Volume Laterality Blood 08/22/2021 7:45 AM 2 7:45 EDT AM EDT Ai Arriaza MD POINT OF CARE TEST ORDERABLE S Performing Organization Address City/State/[place] [address] POCT Glucose (08/22/2021 3:38 AM EDT) athologist Signature POC Glucose 96 65 - 199 [place] mg/dL [facility] Comment: Supplemental ranges: <140 mg/dL before meals <180 mg/dL all other times of the day Specimen Anatomical Collection Method Collection Time Receive d Time (Source) Location / / Volume Laterality Blood 08/22/2021 3:38 AM 2 3:38 EDT AM EDT Ai Arriaza MD POINT OF CARE TEST ORDERABLE S Performing Organization Address City/State/[place] [address] POCT Glucose (08/22/2021 2:04 AM EDT) athologist Signature POC Glucose 106 65 - 199 [place] mg/dL [facility] Comment: Supplemental ranges: <140 mg/dL before meals <180 mg/dL all other times of the day Specimen Anatomical Collection Method Collection Time Receive d Time (Source) Location / / Volume Laterality Blood 08/22/2021 2:04 AM 2 2:04 EDT AM EDT Ai Arriaza MD POINT OF CARE TEST ORDERABLE S Performing Organization Address City/State/[place] [address] POCT Glucose (08/21/2021 10:19 PM EDT) athologist Signature POC Glucose 106 65 - 199 [facility] [place] mg/dL [facility] Comment: Supplemental ranges: <140 mg/dL before meals <180 mg/dL all other times of the day Specimen Anatomical Collection Method Collection Time Receive d Time (Source) Location / / Volume Laterality Blood 08/21/2021 10:19 08/21/2021 PM EDT 10:19 PM EDT Ai Arriaza MD POINT OF CARE TEST ORDERABLE S Performing Organization Address City/State/[place] [address] POCT Glucose (08/21/2021 3:38 PM EDT) athologist Signature POC Glucose 97 65 - 199 [place] mg/dL [facility] Comment: Supplemental ranges: <140 mg/dL before meals <180 mg/dL all other times of the day Specimen Anatomical Collection Method Collection Time Receive d Time (Source) Location / / Volume Laterality Blood 08/21/2021 3:38 PM 3:38 EDT PM EDT Ai Arriaza MD POINT OF CARE TEST ORDERABLE S Performing Organization Address City/State/Z[place] [address] POCT Glucose (08/21/2021 11:22 AM EDT) athologist Signature POC Glucose 144 65 - 199 [place] mg/dL [facility] Comment: Supplemental ranges: <140 mg/dL before meals <180 mg/dL all other times of the day Specimen Anatomical Collection Method Collection Time Receive d Time (Source) Location / / Volume Laterality Blood 08/21/2021 11:22 08/21/2021 AM EDT 11:22 AM EDT Loco White MD POINT OF CARE TEST ORDERABLE S Performing Organization Address City/State/Z[place] [address] POCT Glucose (08/21/2021 7:44 AM EDT) athologist Signature POC Glucose 105 65 - 199 [place] mg/dL [facility] Comment: Supplemental ranges: <140 mg/dL before meals <180 mg/dL all other times of the day Specimen Anatomical Collection Method Collection Time Receive d Time (Source) Location / / Volume Laterality Blood 08/21/2021 7:44 AM 06/08/202 2 7:44 EDT AM EDT Loco White MD POINT OF CARE TEST ORDERABLE S Performing Organization Address City/State/ZIP [place] [address] POCT Glucose (08/21/2021 4:08 AM EDT) athologist Signature POC Glucose 109 65 - 199 [place] mg/dL [facility] Comment: Supplemental ranges: <140 mg/dL before meals <180 mg/dL all other times of the day Specimen Anatomical Collection Method Collection Time Receive d Time (Source) Location / / Volume Laterality Blood 08/21/2021 4:08 AM 2 4:08 EDT AM EDT Loco White MD POINT OF CARE TEST ORDERABLE S Performing Organization Address City/[facility]/ZIP [place] [address] POCT Glucose (08/20/2021 11:31 PM EDT) athologist Signature POC Glucose 113 65 - 199 [place] mg/dL [facility] Comment: Supplemental ranges: <140 mg/dL before meals <180 mg/dL all other times of the day Specimen Anatomical Collection Method Collection Time Receive d Time (Source) Location / / Volume Laterality Blood 08/20/2021 11:31 08/20/2021 PM EDT 11:31 PM EDT Loco White MD POINT OF CARE TEST ORDERABLE S Performing Organization Address City/State/ZIP Code Phon e Number [place] [id number] POCT Glucose (08/20/2021 8:13 PM EDT) athologist Signature POC Glucose 118 65 - 199 [place] mg/dL [facility] Comment: Supplemental ranges: <140 mg/dL before meals <180 mg/dL all other times of the day Specimen Anatomical Collection Method Collection Time Receive d Time (Source) Location / / Volume Laterality Blood 08/20/2021 8:13 PM 8:13 EDT PM EDT Loco White MD POINT OF CARE TEST ORDERABLE S Performing Organization Address City/State/ZIP [place] [address] POCT Glucose (08/20/2021 3:30 PM EDT) athologist Signature POC Glucose 118 65 - 199 [facility] [place] mg/dL [facility] Comment: Supplemental ranges: <140 mg/dL before meals <180 mg/dL all other times of the day Specimen Anatomical Collection Method Collection Time Receive d Time (Source) Location / / Volume Laterality Blood 08/20/2021 3:30 PM 3:30 EDT PM EDT Loco White MD POINT OF CARE TEST ORDERABLE S Performing Organization Address City/State/ZIP [place] [address] POCT Glucose (08/20/2021 11:09 AM EDT) athologist Signature POC Glucose 143 65 - 199 [facility] Comment: Supplemental ranges: <140 mg/dL before meals <180 mg/dL all other times of the day Specimen Anatomical Collection Method Collection Time Receive d Time (Source) Location / / Volume Laterality Blood 08/20/2021 11:09 08/20/2021 AM EDT 11:09 AM EDT Loco White MD POINT OF CARE TEST ORDERABLE S Performing Organization Address City/State/Z[place] [address] Vancomycin, trough (08/20/2021 10:31 AM EDT) athologist Signature Vanc Trough 19.3 mg/L [facility] Comment: Therapeutic range for complicated [...] White MD CHEMISTRY ORDERABLES Performing Organization Address City/[facility]/ZIP Code Phon e Number [address] POCT Glucose (08/20/2021 7:27 AM EDT) athologist Signature POC Glucose 113 65 - 199 [place] mg/dL [facility] Comment: Supplemental ranges: <140 mg/dL before meals <180 mg/dL all other times of the day Specimen Anatomical Collection Method Collection Time Receive d Time (Source) Location / / Volume Laterality Blood 08/20/2021 7:27 AM 2 7:27 EDT AM EDT Loco White MD POINT OF CARE TEST ORDERABLE S Performing Organization Address City/[facility]/ZIP Code Phon e Number [address] POCT Glucose (08/20/2021 5:14 AM EDT) athologist Signature POC Glucose 128 65 - 199 [place] mg/dL [facility] Comment: Supplemental ranges: <140 mg/dL before meals <180 mg/dL all other times of the day Specimen Anatomical Collection Method Collection Time Receive d Time (Source) Location / / Volume Laterality Blood 08/20/2021 5:14 AM 2 5:14 EDT AM EDT Loco White MD POINT OF CARE TEST ORDERABLE S Performing Organization Address City/[facility]/ZIP Code Phon e Number [address] POCT Glucose (08/19/2021 11:34 PM EDT) athologist Signature POC Glucose 174 65 - 199 [place] mg/dL [facility] Comment: Supplemental ranges: <140 mg/dL before meals <180 mg/dL all other times of the day Specimen Anatomical Collection Method Collection Time Receive d Time (Source) Location / / Volume Laterality Blood 08/19/2021 11:34 08/19/2021 PM EDT 11:34 PM EDT Loco White MD POINT OF CARE TEST ORDERABLE S Performing Organization Address City/State/ZIP Code Phon e Number [address] POCT Glucose (08/19/2021 8:26 PM EDT) athologist Signature POC Glucose 153 65 - 199 [place] mg/dL [facility] Comment: Supplemental ranges: <140 mg/dL before meals <180 mg/dL all other times of the day Specimen Anatomical Collection Method Collection Time Receive d Time (Source) Location / / Volume Laterality Blood 08/19/2021 8:26 PM 2 8:26 EDT PM EDT Loco White MD POINT OF CARE TEST ORDERABLE S Performing Organization Address City/State/ZIP [place] [address] POCT Glucose (08/19/2021 6:53 PM EDT) athologist Signature POC Glucose 150 65 - 199 [place] mg/dL [facility] Comment: Supplemental ranges: <140 mg/dL before meals <180 mg/dL all other times of the day Specimen Anatomical Collection Method Collection Time Receive d Time (Source) Location / / Volume Laterality Blood 08/19/2021 6:53 PM 2 6:53 EDT PM EDT Loco Wihte MD POINT OF CARE TEST ORDERABLE S Performing Organization Address City/State/ZIP [place] [address] POCT Glucose (08/19/2021 12:02 PM EDT) athologist Signature POC Glucose 106 65 - 199 [place] mg/dL [facility] Comment: Supplemental ranges: <140 mg/dL before meals <180 mg/dL all other times of the day Specimen Anatomical Collection Method Collection Time Receive d Time (Source) Location / / Volume Laterality Blood 08/19/2021 12:02 08/19/2021 PM EDT 12:02 PM EDT Loco White MD POINT OF CARE TEST ORDERABLE S Performing Organization Address City/[facility]/ZIP [place] [address] POCT Glucose (08/19/2021 7:57 AM EDT) P athologist Signature POC Glucose 105 65 - 199 [facility] mg/dL [facility] Comment: Supplemental ranges: <140 mg/dL before meals <180 mg/dL all other times of the day Specimen Anatomical Collection Method Collection Time Receive d Time (Source) Location / / Volume Laterality Blood 08/19/2021 7:57 AM 2 7:57 EDT AM EDT Loco White MD POINT OF CARE TEST ORDERABLE S Performing Organization Address City/[facility]/ZIP [place] [address] Scan, Peripheral Blood (08/19/2021 5:50 AM EDT) [facility] Method Time Signature Plat Estimate Increased [facility] RBC Morphology Normal [facility] Platelet Clumps Present [facility] Specimen Anatomical Collection Method Collection Time Receive d Time (Source) Location / / Volume Laterality Blood 08/19/2021 5:50 AM 2 6:07 EDT AM EDT Resulting Agency Comment Spec In Lab Lisandro Treviño MD HEMATOLOGY ORDERABLES Performing Organization Address City/[facility]/ZIP Code Phon e Number [address] (ABNORMAL) Differential, Automated (08/19/2021 5:50 AM EDT) [facility] Method Time Signature Neutrophils % 39.5 % [facility] Neutr Abs (ANC) 4.74 1.70 - [facility] 6.10 [facility] x10(3)/[facility] LABORATORY Lymphocytes % 30.7 % [facility] LABORATORY Lymphocytes Abs 3.7 (H) 0.9 - 3.2 [facility] x10(3)/[facility] LABORATORY Monocytes % 7.6 % [facility] LABORATORY Monocyte Abs 0.9 0.3 - 0.9 [facility] x10(3)/[facility] LABORATORY Eosinophils % 20.8 % [facility] LABORATORY Eosinophils Abs 2.5 (H) 0.0 - 0.4 [facility] x10(3)/[facility] LABORATORY Basophils % 0.7 % [facility] LABORATORY Basophils Abs 0.1 0.0 - 0.1 [facility] x10(3)/[facility] LABORATORY Immature Gran % 0.70 % [facility] LABORATORY Comment: Immature granulocytes(IG's)percentage an d absolute count will include metamyelocytes, myelocytes, and promyelo cytes. Blood smears from CBCs yielding IG's will be scanned manually for concor dance. If this scan disagrees with the automated IG or if promyelocytes are not ed, a manual differential will be performed. Shantell Gran Abs 0.09 (H) 0.00 - 0.04 x10(3)/[facility] LABORATORY Specimen Anatomical Collection Method Collection Time Receive d Time (Source) Location / / Volume Laterality Blood 08/19/2021 5:50 AM 6:07 EDT AM EDT Resulting Agency Comment Spec In Lab Lisandro Treviño MD HEMATOLOGY ORDERABLES Performing Organization Address City/State/ZIP [place] [address] (ABNORMAL) Hemogram (08/19/2021 5:50 AM EDT) Analysis Performed At Patho logist Time Signature WBC 12.0 (H) 4.0 - 9.5 [facility] x10(3)/[facility] LABORATORY RBC 4.40 4.00 - [facility] 5.21 [facility] x10(6)/[facility] LABORATORY Hemoglobin 12.9 11.7 - [facility] 15.5 g/dL [facility] LABORATORY Hematocrit 40.0 35.7 - [facility] 45.8 % [facility] LABORATORY MCV 90.9 82.6 - [place] 94.4 [facility] LABORATORY MCH 29.3 27.1 - [place] 32.[address] [facility] LABORATORY MCHC 32.3 31.7 - [place]ONCOCK 35.0 g/dL [facility] LABORATORY Platelets 419 (H) 145 - 357 [facility] x10(3)/[facility] LABORATORY RDWSD 42.9 37.0 - [place] 46.0 [facility] LABORATORY RDWCV 13.1 11.5 - [place] 14.1 % [facility] LABORATORY MPV 9.1 7.6 - 12.9 [facility] nRBC % Auto 0.0 % [facility] LABORATORY nRBC Abs Auto 0.000 0.000 - [place] 0.000 [facility] x10(3)/[facility] LABORATORY Specimen Anatomical Collection Method Collection Time Receive d Time (Source) Location / / Volume Laterality Blood 08/19/2021 5:50 AM 2 6:07 EDT AM EDT Resulting Agency Comment Spec In Lab Lisandro Treviño MD HEMATOLOGY ORDERABLES Performing Organization Address City/State/ZIP Code Phon e Number [address] (ABNORMAL) Phosphorus (08/19/2021 5:50 AM EDT) P athologist Signature Phosphorus 5.2 (H) 2.5 - 4.5 [place]AVE[place] mg/dL [facility] LABORATORY Specimen Anatomical Collection Method Collection Time Receive d Time (Source) Location / / Volume Laterality Blood 08/19/2021 5:50 AM 2 6:07 EDT AM EDT Resulting Agency Comment Spec In Lab Loco White MD CHEMISTRY ORDERABLES Performing Organization Address City/State/ZIP Code Phon e Number [address] Magnesium (08/19/2021 5:50 AM EDT) P athologist Signature Magnesium 0.77 0.69 - 1.07 [place] mmol/L [facility] LABORATORY Specimen Anatomical Collection Method Collection Time Receive d Time (Source) Location / / Volume Laterality Blood 08/19/2021 5:50 AM 6:07 EDT AM EDT Resulting Agency Comment Spec In Lab Loco White MD CHEMISTRY ORDERABLES Performing Organization Address City/State/ZIP [place] [address] (ABNORMAL) Basic Metabolic Panel (non-fasting) (08/19/2021 5:50 AM EDT) athologist Signature Glucose Lvl 115 65 - 199 [facility] mg/dL [facility] LABORATORY Comment: Diabetes: >=200 mg/dL plus symp toms BUN 20 (H) 8 - 18 mg/dL [facility] LABORATORY Creatinine 0.78 0.70 - 1.20 mg/dL [facility] LABORATORY Sodium 136 135 - 145 mmol/L [facility] LABORATORY Potassium 4.2 3.5 - 5.0 mmol/L [facility] LABORATORY Comment: Please note: ??Patients with WBC >100,00 0 may have falsely elevated Potassium levels. ??For accurate Potassium quantif ication in these patients send serum separator tube (gold top) for subsequent determinations. ??Contact the Clinical Chemistry Laboratory if there are any qu estions. Chloride 100 98 - 107 mmol/L [facility] LABORATORY CO2 22 22 - 31 mmol/L [facility] LABORATORY Anion Gap 14 5 - 15 mmol/L [facility] LABORATORY Calcium 10.1 8.5 - 10.5 mg/dL [facility] LABORATORY Estimated GFR 83 >=60 mL/min/1.73 m?? [facility] LABORATORY Comment: This patient? s estimated [...] Organization Address City/State/[place] [address] (ABNORMAL) CRP, acute inflammation (08/19/2021 5:50 AM EDT) athologist Signature CRP 40.2 (H) <=4.9 mg/L [facility] LABORATORY Comment: result rechecked-CA Specimen Anatomical Collection Method Collection Time Receive d Time (Source) Location / / Volume Laterality Blood 08/19/2021 5:50 AM 2 6:07 EDT AM EDT Resulting Agency Comment Spec In Lab Loco White MD CHEMISTRY ORDERABLES Performing Organization Address City/[facility]/ZIP [place] [address] POCT Glucose (08/19/2021 4:39 AM EDT) athologist Signature POC Glucose 119 65 - 199 [facility] mg[facility]dL [facility] LABORATORY Comment: Supplemental ranges: <140 mg/dL before meals <180 mg/dL all other times of the day Specimen Anatomical Collection Method Collection Time Receive d Time (Source) Location / / Volume Laterality Blood 08/19/2021 4:39 AM 2 4:39 EDT AM EDT Loco White MD POINT OF CARE TEST ORDERABLE S Performing Organization Address City/[facility]/ZIP [place] [address] POCT Glucose (08/19/2021 12:03 AM EDT) athologist Signature POC Glucose 122 65 - 199 [facility] mg/dL [facility] LABORATORY Comment: Supplemental ranges: <140 mg/dL before meals <180 mg/dL all other times of the day Specimen Anatomical Collection Method Collection Time Receive d Time (Source) Location / / Volume Laterality Blood 08/19/2021 12:03 08/19/2021 AM EDT 12:03 AM EDT Loco White MD POINT OF CARE TEST ORDERABLE S Performing Organization Address City/State/ZIP [place] [address] POCT Glucose (08/18/2021 7:54 PM EDT) athologist Signature POC Glucose 119 65 - 199 [place] mg/dL [facility] LABORATORY Comment: Supplemental ranges: <140 mg/dL before meals <180 mg/dL all other times of the day Specimen Anatomical Collection Method Collection Time Receive d Time (Source) Location / / Volume Laterality Blood 08/18/2021 7:54 PM 2 7:54 EDT PM EDT Loco White MD POINT OF CARE TEST ORDERABLE S Performing Organization Address City/State/ZIP [place] [address] POCT Glucose (08/18/2021 5:22 PM EDT) athologist Signature POC Glucose 115 65 - 199 [place] mg/dL [facility] LABORATORY Comment: Supplemental ranges: <140 mg/dL before meals <180 mg/dL all other times of the day Specimen Anatomical Collection Method Collection Time Receive d Time (Source) Location / / Volume Laterality Blood 08/18/2021 5:22 PM 2 5:22 EDT PM EDT Loco White MD POINT OF CARE TEST ORDERABLE S Performing Organization Address City/State/ZIP [place] [address] POCT Glucose (08/18/2021 12:05 PM EDT) athologist Signature POC Glucose 103 65 - 199 [place] mg/dL [facility] LABORATORY Comment: Supplemental ranges: <140 mg/dL before meals <180 mg/dL all other times of the day Specimen Anatomical Collection Method Collection Time Receive d Time (Source) Location / / Volume Laterality Blood 08/18/2021 12:05 08/18/2021 PM EDT 12:05 PM EDT Loco White MD POINT OF CARE TEST ORDERABLE S Performing Organization Address City/[facility]/ZIP Code Phon e Number [place] [id number]OS[address] LAB[address]ORY Drive (ABNORMAL) Vancomycin, trough (08/18/2021 8:45 AM EDT) P athologist Signature Vanc Trough 25.4 mg/L [facility] (Critical) [facility] LABORATORY Comment: called by ARR; read back by (Pablo smith); 08/18/21 0934 Therapeutic range for complicated infect ions such [...] White MD CHEMISTRY ORDERABLES Performing Organization Address City/[facility]/ZIP [place] [address] POCT Glucose (08/18/2021 8:28 AM EDT) P athologist Signature POC Glucose 103 65 - 199 [facility] mg/dL [facility] LABORATORY Comment: Supplemental ranges: <140 mg/dL before meals <180 mg/dL all other times of the day Specimen Anatomical Collection Method Collection Time Receive d Time (Source) Location / / Volume Laterality Blood 08/18/2021 8:28 AM 2 8:28 EDT AM EDT Loco White MD POINT OF CARE TEST ORDERABLE S Performing Organization Address City/State/Z[place] [address] POCT Glucose (08/18/2021 4:20 AM EDT) athologist Signature POC Glucose 109 65 - 199 [place] mg/dL [facility] LABORATORY Comment: Supplemental ranges: <140 mg/dL before meals <180 mg/dL all other times of the day Specimen Anatomical Collection Method Collection Time Receive d Time (Source) Location / / Volume Laterality Blood 08/18/2021 4:20 AM 4:20 EDT AM EDT Loco White MD POINT OF CARE TEST ORDERABLE S Performing Organization Address City/[facility]/ZIP Code Phon e Number [place] [address] POCT Glucose (08/17/2021 11:32 PM EDT) athologist Signature POC Glucose 100 65 - 199 [place] mg/dL [facility] LABORATORY Comment: Supplemental ranges: <140 mg/dL before meals <180 mg/dL all other times of the day Specimen Anatomical Collection Method Collection Time Receive d Time (Source) Location / / Volume Laterality Blood 08/17/2021 11:32 08/17/2021 PM EDT 11:32 PM EDT Loco White MD POINT OF CARE TEST ORDERABLE S Performing Organization Address City/State/ZIP Code Phon e Number [place] [phone] LAB[address]ORY [address] POCT Glucose (08/17/2021 8:02 PM EDT) athologist Signature POC Glucose 118 65 - 199 [place] mg/dL [facility] LABORATORY Comment: Supplemental ranges: <140 mg/dL before meals <180 mg/dL all other times of the day Specimen Anatomical Collection Method Collection Time Receive d Time (Source) Location / / Volume Laterality Blood 08/17/2021 8:02 PM 8:02 EDT PM EDT Loco White MD POINT OF CARE TEST ORDERABLE S Performing Organization Address City/State/ZIP [place] [address] POCT Glucose (08/17/2021 4:52 PM EDT) athologist Signature POC Glucose 87 65 - 199 [place] mg/dL [facility] LABORATORY Comment: Supplemental ranges: <140 mg/dL before meals <180 mg/dL all other times of the day Specimen Anatomical Collection Method Collection Time Receive d Time (Source) Location / / Volume Laterality Blood 08/17/2021 4:52 PM 4:52 EDT PM EDT Loco White MD POINT OF CARE TEST ORDERABLE S Performing Organization Address City/State/ZIP [place] [address] POCT Glucose (08/17/2021 12:26 PM EDT) athologist Signature POC Glucose 103 65 - 199 [place] mg/dL [facility] LABORATORY Comment: Supplemental ranges: <140 mg/dL before meals <180 mg/dL all other times of the day Specimen Anatomical Collection Method Collection Time Receive d Time (Source) Location / / Volume Laterality Blood 08/17/2021 12:26 08/17/2021 PM EDT 12:26 PM EDT Loco White MD POINT OF CARE TEST ORDERABLE S Performing Organization Address City/State/ZIP [place] [address] POCT Glucose (08/17/2021 11:20 AM EDT) athologist Signature POC Glucose 112 65 - 199 [place] mg/dL [facility] LABORATORY Comment: Supplemental ranges: <140 mg/dL before meals <180 mg/dL all other times of the day Specimen Anatomical Collection Method Collection Time Receive d Time (Source) Location / / Volume Laterality Blood 08/17/2021 11:20 08/17/2021 AM EDT 11:20 AM EDT Loco White MD POINT OF CARE TEST ORDERABLE S Performing Organization Address City/State/ZIP [place] [address] POCT Glucose (08/17/2021 7:53 AM EDT) athologist Signature POC Glucose 111 65 - 199 [place] mg/dL [facility] LABORATORY Comment: Supplemental ranges: <140 mg/dL before meals <180 mg/dL all other times of the day Specimen Anatomical Collection Method Collection Time Receive d Time (Source) Location / / Volume Laterality Blood 08/17/2021 7:53 AM 2 7:53 EDT AM EDT Loco White MD POINT OF CARE TEST ORDERABLE S Performing Organization Address City/State/Z[place] [address] POCT Glucose (08/17/2021 4:12 AM EDT) athologist Signature POC Glucose 121 65 - 199 [place]AVE[place] mg/dL [facility] LABORATORY Comment: Supplemental ranges: <140 mg/dL before meals <180 mg/dL all other times of the day Specimen Anatomical Collection Method Collection Time Receive d Time (Source) Location / / Volume Laterality Blood 08/17/2021 4:12 AM 2 4:12 EDT AM EDT Loco White MD POINT OF CARE TEST ORDERABLE S Performing Organization Address City/State/Z[place] [address] POCT Glucose (08/16/2021 11:06 PM EDT) athologist Signature POC Glucose 118 65 - 199 [place] mg/dL [facility] LABORATORY Comment: Supplemental ranges: <140 mg/dL before meals <180 mg/dL all other times of the day Specimen Anatomical Collection Method Collection Time Receive d Time (Source) Location / / Volume Laterality Blood 08/16/2021 11:06 08/16/2021 PM EDT 11:06 PM EDT Loco White MD POINT OF CARE TEST ORDERABLE S Performing Organization Address City/State/Z[place] [address] POCT Glucose (08/16/2021 8:27 PM EDT) athologist Signature POC Glucose 116 65 - 199 [place] mg/dL [facility] LABORATORY Comment: Supplemental ranges: <140 mg/dL before meals <180 mg/dL all other times of the day Specimen Anatomical Collection Method Collection Time Receive d Time (Source) Location / / Volume Laterality Blood 08/16/2021 8:27 PM 2 8:27 EDT PM EDT Loco White MD POINT OF CARE TEST ORDERABLE S Performing Organization Address City/State/Z[place] [address] (ABNORMAL) CRP, acute inflammation (08/16/2021 5:44 PM EDT) athologist Signature CRP 54.8 (H) <=4.9 mg/L [facility] LABORATORY Specimen Anatomical Collection Method Collection Time Receive d Time (Source) Location / / Volume Laterality Blood 08/16/2021 5:44 PM 2 5:51 EDT PM EDT Resulting Agency Comment Spec In Lab Loco White MD CHEMISTRY ORDERABLES Performing Organization Address City/[facility]/ZIP [place] [address] POCT Glucose (08/16/2021 4:38 PM EDT) athologist Signature POC Glucose 135 65 - 199 [place] mg/dL [facility] LABORATORY Comment: Supplemental ranges: <140 mg/dL before meals <180 mg/dL all other times of the day Specimen Anatomical Collection Method Collection Time Receive d Time (Source) Location / / Volume Laterality Blood 08/16/2021 4:38 PM 2 4:38 EDT PM EDT Loco White MD POINT OF CARE TEST ORDERABLE S Performing Organization Address City/State/ZIP [place] [address] POCT Glucose (08/16/2021 12:22 PM EDT) athologist Signature POC Glucose 105 65 - 199 [place] mg/dL [facility] LABORATORY Comment: Supplemental ranges: <140 mg/dL before meals <180 mg/dL all other times of the day Specimen Anatomical Collection Method Collection Time Receive d Time (Source) Location / / Volume Laterality Blood 08/16/2021 12:22 08/16/2021 PM EDT 12:22 PM EDT Loco White MD POINT OF CARE TEST ORDERABLE S Performing Organization Address City/State/Z[place] [address] POCT Glucose (08/16/2021 7:38 AM EDT) athologist Signature POC Glucose 113 65 - 199 [facility] NAVEEN mg/dL [facility] LABORATORY Comment: Supplemental ranges: <140 mg/dL before meals <180 mg/dL all other times of the day Specimen Anatomical Collection Method Collection Time Receive d Time (Source) Location / / Volume Laterality Blood 08/16/2021 7:38 AM 2 7:38 EDT AM EDT Loco White MD POINT OF CARE TEST ORDERABLE S Performing Organization Address City/State/Z[place] [address] POCT Glucose (08/16/2021 4:26 AM EDT) athologist Signature POC Glucose 126 65 - 199 [place]AVE[place] mg/dL [facility] LABORATORY Comment: Supplemental ranges: <140 mg/dL before meals <180 mg/dL all other times of the day Specimen Anatomical Collection Method Collection Time Receive d Time (Source) Location / / Volume Laterality Blood 08/16/2021 4:26 AM 2 4:26 EDT AM EDT Loco White MD POINT OF CARE TEST ORDERABLE S Performing Organization Address City/State/Z[place] [address] (ABNORMAL) Vancomycin, trough (08/16/2021 4:07 AM EDT) athologist Signature Vanc Trough 20.1 mg/L [facility] (Critical) [facility] LABORATORY Comment: Called by: , Read back by: Kandi okeefe, Date/Time:08/16/21 05:00. [...] White MD CHEMISTRY ORDERABLES Performing Organization Address City/[facility]/ZIP Code Phon e Number [address] POCT Glucose (08/16/2021 12:24 AM EDT) athologist Signature POC Glucose 131 65 - 199 [facility] mg/dL [facility] LABORATORY Comment: Supplemental ranges: <140 mg/dL before meals <180 mg/dL all other times of the day Specimen Anatomical Collection Method Collection Time Receive d Time (Source) Location / / Volume Laterality Blood 08/16/2021 12:24 08/16/2021 AM EDT 12:24 AM EDT Loco White MD POINT OF CARE TEST ORDERABLE S Performing Organization Address City/State/ZIP [place] [address] POCT Glucose (08/15/2021 7:15 PM EDT) athologist Signature POC Glucose 112 65 - 199 [facility] mg/dL [facility] LABORATORY Comment: Supplemental ranges: <140 mg/dL before meals <180 mg/dL all other times of the day Specimen Anatomical Collection Method Collection Time Receive d Time (Source) Location / / Volume Laterality Blood 08/15/2021 7:15 PM 06/02/202 2 7:15 EDT PM EDT Loco White MD POINT OF CARE TEST ORDERABLE S Performing Organization Address City/State/ZIP Code Phon e Number [place] [address] POCT Glucose (08/15/2021 4:58 PM EDT) P athologist Signature POC Glucose 116 65 - 199 [place] mg/dL [facility] LABORATORY Comment: Supplemental ranges: <140 mg/dL before meals <180 mg/dL all other times of the day Specimen Anatomical Collection Method Collection Time Receive d Time (Source) Location / / Volume Laterality Blood 08/15/2021 4:58 PM 2 4:58 EDT PM EDT Loco White MD POINT OF CARE TEST ORDERABLE S Performing Organization Address City/[facility]/[place] [address] COVID-19 PCR (08/15/2021 3:31 PM EDT) Patholo gist Method Time Signature SARS-CoV-2 Not Detected Not Detected [place] [facility] LABORATORY Comment: This result should be interpreted [...] diagnosis of COVID-19 is performed using the [employer] m VERONICA S-CoV-2 Assay as authorized by the FDA Emergency Use Authorization (EUA). This EUA assay is intended for In-vitro Diagnostic (IVD) use with respiratory sp ecimens such as nasopharyngeal swabs collected from individuals during the ac bertha phase of infection. This assay is performed based on the instructions for use provided by [employer] and additional guidance provided by CDC and FDA. Testing is performed in the Clinical [employer] [facility] within the Department of Pathology and Laboratory Medicine at [facility], certified under the Clinical Laboratory Improvement [...] required or requested by public health [facility], positive specimens may be sent for additional [...] fact sheets at the following FDA website: https://www.fda.gov/medical-devices/ebxpvqomwgi-agxopie-0730-axnuz-93-iaasriddx- miq-ickwnwsuwesfkp-npswrob-devices/tffou-zqfmaqchpbw-ozlq SARS-Cov-2 RNA Source [place] Swab [facility] LABORATORY Specimen (Source) Anatomical Collection Method Collection Time Re ceived Time Location / / Volume Laterality Nasopharyngeal Swab 08/15/2021 3:31 08/15 PM EDT 9:54 PM EDT Comment: Symptoms->Surveillance Resulting Agency Comment Spec In Lab Loco K Rhynhart MD MICROBIOLOGY - GENERAL ORDER [place] Performing Organization Address City/[facility]/ZIP [place] [address] POCT Glucose (08/15/2021 12:42 PM EDT) athologist Signature POC Glucose 149 65 - 199 [place] mg/dL [facility] LABORATORY Comment: Supplemental ranges: <140 mg/dL before meals <180 mg/dL all other times of the day Specimen Anatomical Collection Method Collection Time Receive d Time (Source) Location / / Volume Laterality Blood 08/15/2021 12:42 08/15/2021 PM EDT 12:42 PM EDT Loco White MD POINT OF CARE TEST ORDERABLE S Performing Organization Address City/[facility]/ZIP [place] [address] POCT Glucose (08/15/2021 6:21 AM EDT) athologist Signature POC Glucose 105 65 - 199 [place] mg/dL [facility] LABORATORY Comment: Supplemental ranges: <140 mg/dL before meals <180 mg/dL all other times of the day Specimen Anatomical Collection Method Collection Time Receive d Time (Source) Location / / Volume Laterality Blood 08/15/2021 6:21 AM 6:21 EDT AM EDT Loco White MD POINT OF CARE TEST ORDERABLE S Performing Organization Address City/[facility]/Z[place] [address] Phosphorus (08/15/2021 5:40 AM EDT) athologist Signature Phosphorus 3.0 2.5 - 4.5 [place] mg/dL [facility] LABORATORY Specimen Anatomical Collection Method Collection Time Receive d Time (Source) Location / / Volume Laterality Blood Venous Draw / 08/15/2021 5:40 AM 08/16/19 5:46 Unknown EDT AM EDT Resulting Agency Comment Spec In Lab Lisandro Treviño MD CHEMISTRY ORDERABLES Performing Organization Address City/State/ZIP [place] [address] [facility] LAB[address] Drive Magnesium (08/15/2021 5:40 AM EDT) athologist Signature Magnesium 0.81 0.69 - 1.07 [facility] mmol/L [facility] LABORATORY Specimen Anatomical Collection Method Collection Time Receive d Time (Source) Location / / Volume Laterality Blood Venous Draw / 08/15/2021 5:40 AM 08/16/19 5:46 Unknown EDT AM EDT Resulting Agency Comment Spec In Lab Lisandro Treviño MD CHEMISTRY ORDERABLES Performing Organization Address City/State/ZIP Code Phon e Number [address] (ABNORMAL) Basic Metabolic Panel (non-fasting) (08/15/2021 5:40 AM EDT) athologist Signature Glucose Lvl 106 65 - 199 [facility] mg/dL [facility] Comment: Diabetes: >=200 mg/dL plus symp toms BUN 17 8 - 18 mg/dL [facility] Creatinine 0.44 (L) 0.70 - 1.20 mg/dL [facility] Sodium 137 135 - 145 mmol/L [facility] Potassium 3.5 3.5 - 5.0 mmol/L [facility] Comment: Please note: ??Patients with WBC >100,00 0 may have falsely elevated Potassium levels. ??For accurate Potassium quantif ication in these patients send serum separator tube (gold top) for subsequent determinations. ??Contact the Clinical Chemistry Laboratory if there are any qu estions. Chloride 101 98 - 107 mmol/L [facility] CO2 28 22 - 31 mmol/L [facility] Anion Gap 8 5 - 15 mmol/L [facility] Calcium 8.6 8.5 - 10.5 mg/dL [facility] Estimated GFR 110 >=60 mL/min/1.73 m?? [facility] Comment: This patient? s estimated [...] White MD CHEMISTRY ORDERABLES Performing Organization Address City/[facility]/ZIP [facility] [place] [address] POCT Glucose (08/14/2021 11:26 PM EDT) athologist Signature POC Glucose 112 65 - 199 [facility] mg/dL [facility] Comment: Supplemental ranges: <140 mg/dL before meals <180 mg/dL all other times of the day Specimen Anatomical Collection Method Collection Time Receive d Time (Source) Location / / Volume Laterality Blood 08/14/2021 11:26 08/14/2021 PM EDT 11:26 PM EDT Loco White MD POINT OF CARE TEST ORDERABLE S Performing Organization Address City/[facility]/ZIP [facility] [place] [address] POCT Glucose (08/14/2021 7:39 PM EDT) P athologist Signature POC Glucose 119 65 - 199 [place] mg/dL [facility] Comment: Supplemental ranges: <140 mg/dL before meals <180 mg/dL all other times of the day Specimen Anatomical Collection Method Collection Time Receive d Time (Source) Location / / Volume Laterality Blood 08/14/2021 7:39 PM 7:39 EDT PM EDT Loco White MD POINT OF CARE TEST ORDERABLE S Performing Organization Address City/[facility]/ZIP Code Phon e Number [address] POCT Glucose (08/14/2021 4:34 PM EDT) athologist Signature POC Glucose 118 65 - 199 [facility] mg/dL [facility] Comment: Supplemental ranges: <140 mg/dL before meals <180 mg/dL all other times of the day Specimen Anatomical Collection Method Collection Time Receive d Time (Source) Location / / Volume Laterality Blood 08/14/2021 4:34 PM 4:34 EDT PM EDT Loco White MD POINT OF CARE TEST ORDERABLE S Performing Organization Address [facility]/ZIP Code Phon e Number [address] Vancomycin, trough (08/14/2021 12:01 PM EDT) athologist Signature Vanc Trough 10.5 mg/L [facility] Comment: Therapeutic range for complicated [...] White MD CHEMISTRY ORDERABLES Performing Organization Address City/[facility]/ZIP Code Phon e Number [address] POCT Glucose (08/14/2021 11:32 AM EDT) athologist Signature POC Glucose 107 65 - 199 [facility] mg/dL [facility] Comment: Supplemental ranges: <140 mg/dL before meals <180 mg/dL all other times of the day Specimen Anatomical Collection Method Collection Time Receive d Time (Source) Location / / Volume Laterality Blood 08/14/2021 11:32 08/14/2021 AM EDT 11:32 AM EDT Loco White MD POINT OF CARE TEST ORDERABLE S Performing Organization Address City/[facility]/ZIP Code Phon e Number [address] POCT Glucose (08/14/2021 8:03 AM EDT) P athologist Signature POC Glucose 139 65 - 199 [facility] mg/dL [facility] Comment: Supplemental ranges: <140 mg/dL before meals <180 mg/dL all other times of the day Specimen Anatomical Collection Method Collection Time Receive d Time (Source) Location / / Volume Laterality Blood 08/14/2021 8:03 AM 8:03 EDT AM EDT Loco White MD POINT OF CARE TEST ORDERABLE S Performing Organization Address City/[facility]/ZIP [place] [address] EKG 12 Lead (08/14/2021 4:30 AM EDT) Component Value Ref Range Test Analysis Performed Pathologis t Method Time At Signature Ventricular rate 46 BPM MUSE SYSTEM Atrial Rate 46 BPM MUSE SYSTEM P-R Interval 114 ms MUSE SYSTEM QRS Duration 80 ms MUSE SYSTEM Q-T Interval 518 ms MUSE SYSTEM QTC Calculated 453 ms MUSE SYSTEM (Bezet) Calculated P [place] 49 degrees MUSE SYSTEM Calculated R [place] 28 degrees MUSE SYSTEM Calculated T [place] 72 degrees MUSE SYSTEM INTERPRETATION Marked sinus bradycardia MUSE SYSTEM Abnormal ECG When compared with ECG of 18-SEP-2019 11:29, Vent. rate has decreased BY ??24 BPM I personally reviewed the tracing and edited the fellows int erpretation Confirmed by fellow Senser, Cuauhtemoc Liu ([id number]) on 08/14/2021 2:2 6:50 PM Confirmed by [...] Signature Glucose Lvl 155 65 - 199 [facility] mg/dL [facility] Comment: Diabetes: >=200 mg/dL plus symp toms BUN 25 (H) 8 - 18 mg/dL [facility] Creatinine 0.66 (L) 0.70 - 1.20 mg/dL [facility] Sodium 139 135 - 145 mmol/L [facility] Potassium 3.1 (L) 3.5 - 5.0 mmol/L [facility] Comment: Please note: ??Patients with WBC >100,00 0 may have falsely elevated Potassium levels. ??For accurate Potassium quantif ication in these patients send serum separator tube (gold top) for subsequent determinations. ??Contact the Clinical Chemistry Laboratory if there are any qu estions. Chloride 102 98 - 107 mmol/L [facility] CO2 Not Perf 22 - 31 [facility] Comment: Add-on request. Sample too old to perform test. Anion Gap Unable to Calculate 5 - 15 mmol/L [facility] Calcium 8.6 8.5 - 10.5 mg/dL [facility] Estimated GFR 97 >=60 mL/min/1.73 m?? [facility] Comment: This patient? s estimated [...] Moreno MD CHEMISTRY ORDERABLES Performing Organization Address City/[facility]/ZIP [place] [address] Phosphorus (08/14/2021 3:47 AM EDT) P athologist Signature Phosphorus 2.6 2.5 - 4.5 [place] mg/dL [facility] Specimen Anatomical Collection Method Collection Time Receive d Time (Source) Location / / Volume Laterality Blood 08/14/2021 3:47 AM 2 4:13 EDT AM EDT Resulting Agency Comment Spec In Lab Joshua Che MD CHEMISTRY ORDERABLES Performing Organization Address City/[facility]/ZIP [place] [address] Magnesium (08/14/2021 3:47 AM EDT) P athologist Signature Magnesium 0.79 0.69 - 1.07 [facility] mmol/L [facility] Specimen Anatomical Collection Method Collection Time Receive d Time (Source) Location / / Volume Laterality Blood 08/14/2021 3:47 AM 2 4:13 EDT AM EDT Resulting Agency Comment Spec In Lab Joshua Che MD CHEMISTRY ORDERABLES Performing Organization Address City/[facility]/ZIP Code Phon e Number [address] POCT Glucose (08/14/2021 2:58 AM EDT) athologist Signature POC Glucose 159 65 - 199 [place] mg/dL [facility] Comment: Supplemental ranges: <140 mg/dL before meals <180 mg/dL all other times of the day Specimen Anatomical Collection Method Collection Time Receive d Time (Source) Location / / Volume Laterality Blood 08/14/2021 2:58 AM 2 2:58 EDT AM EDT Loco White MD POINT OF CARE TEST ORDERABLE S Performing Organization Address City/[facility]/ZIP [place] [address] POCT Glucose (08/13/2021 9:40 PM EDT) athologist Signature POC Glucose 142 65 - 199 [place] mg/dL [facility] Comment: Supplemental ranges: <140 mg/dL before meals <180 mg/dL all other times of the day Specimen Anatomical Collection Method Collection Time Receive d Time (Source) Location / / Volume Laterality Blood 08/13/2021 9:40 PM 2 9:40 EDT PM EDT Loco White MD POINT OF CARE TEST ORDERABLE S Performing Organization Address City/[facility]/ZIP [place] [address] POCT Glucose (08/13/2021 4:44 PM EDT) athologist Signature POC Glucose 136 65 - 199 [place] mg/dL [facility] Comment: Supplemental ranges: <140 mg/dL before meals <180 mg/dL all other times of the day Specimen Anatomical Collection Method Collection Time Receive d Time (Source) Location / / Volume Laterality Blood 08/13/2021 4:44 PM 2 4:44 EDT PM EDT Loco White MD POINT OF CARE TEST ORDERABLE S Performing Organization Address City/[facility]/ZIP [place] [address] (ABNORMAL) POCT Glucose (08/13/2021 1:54 PM EDT) athologist Signature POC Glucose 223 (H) 65 - 199 [place] mg/dL [facility] Comment: Supplemental ranges: <140 mg/dL before meals <180 mg/dL all other times of the day Specimen Anatomical Collection Method Collection Time Receive d Time (Source) Location / / Volume Laterality Blood 08/13/2021 1:54 PM 2 1:54 EDT PM EDT Loco White MD POINT OF CARE TEST ORDERABLE S Performing Organization Address City/State/ZIP Code Phon e Number [address] (ABNORMAL) POCT Glucose (08/13/2021 11:47 AM EDT) P athologist Signature POC Glucose 246 (H) 65 - 199 [facility] mg/dL [facility] Comment: Supplemental ranges: <140 mg/dL before meals <180 mg/dL all other times of the day Specimen Anatomical Collection Method Collection Time Receive d Time (Source) Location / / Volume Laterality Blood 08/13/2021 11:47 08/13/2021 AM EDT 11:47 AM EDT Joshua Che MD POINT OF CARE TEST ORDERABLE S Performing Organization Address City/State/ZIP Code Phon e Number [address] (ABNORMAL) Differential, Automated (08/13/2021 5:54 AM EDT) [facility] Method Time Signature Neutrophils % 82.7 % [facility] Neutr Abs (ANC) 10.00 (H) 1.70 - [facility] 6.10 [facility] x10(3)/[facility] LABORATORY Lymphocytes % 12.3 % [facility] Lymphocytes Abs 1.5 0.9 - 3.2 [facility] x10(3)/[facility] LABORATORY Monocytes % 4.1 % [facility] Monocyte Abs 0.5 0.3 - 0.9 [facility] x10(3)/[facility] LABORATORY Eosinophils % 0.2 % [facility] Eosinophils Abs 0.0 0.0 - 0.4 [facility] x10(3)/[facility] LABORATORY Basophils % 0.2 % [facility] Basophils Abs 0.0 0.0 - 0.1 [facility] x10(3)/[facility] LABORATORY Immature Gran % 0.50 % [facility] Comment: Immature granulocytes(IG's)percentage an d absolute count will include metamyelocytes, myelocytes, and promyelo cytes. Blood smears from CBCs yielding IG's will be scanned manually for flor holguin. If this scan disagrees with the automated IG or if promyelocytes are not ed, a manual differential will be performed. [place] Gran Abs 0.06 (H) 0.00 - 0.04 x10(3)/[facility] LABORATORY Specimen Anatomical Collection Method Collection Time Receive d Time (Source) Location / / Volume Laterality Blood 08/13/2021 5:54 AM 2 6:05 EDT AM EDT Resulting Agency Comment Spec In Lab Mavis Tamayo MD HEMATOLOGY ORDERABLES Performing Organization Address City/State/ZIP [place] [address] (ABNORMAL) Hemogram (08/13/2021 5:54 AM EDT) Analysis Performed At Patho logist Time Signature WBC 12.1 (H) 4.0 - 9.5 [facility] x10(3)/[facility] LABORATORY RBC 3.92 (L) 4.00 - [facility] 5.21 [facility] x10(6)/[facility] LABORATORY Hemoglobin 11.5 (L) 11.7 - [facility] 15.5 g/dL [facility] Hematocrit 36.2 35.7 - [facility] 45.8 % [facility] MCV 92.3 82.6 - [facility] 94.4 [facility] LABORATORY MCH 29.3 27.1 - [facility] 32.[address] [facility] MCHC 31.8 31.7 - [facility] 35.0 g/dL [facility] Platelets 374 (H) 145 - 357 [facility] x10(3)/[facility] LABORATORY RDWSD 42.4 37.0 - [facility] [place] 46.0 [facility] LABORATORY RDWCV 12.5 11.5 - [facility] 14.1 % [facility] MPV 9.2 7.6 - 12.9 [facility] LABORATORY nRBC % Auto 0.0 % [facility] nRBC Abs Auto 0.000 0.000 - [facility] 0.000 [facility] x10(3)/[facility] LABORATORY Specimen Anatomical Collection Method Collection Time Receive d Time (Source) Location / / Volume Laterality Blood 08/13/2021 5:54 AM 2 6:05 EDT AM EDT Resulting Agency Comment Spec In Lab Mavis Tamayo MD HEMATOLOGY ORDERABLES Performing Organization Address City/State/ZIP [place] [address] (ABNORMAL) Hemoglobin A1c (08/13/2021 [...] Mellitus, Diabetes Care 2013; 36: Suppl. 1, S67-01 Est Avg Gluc 156 mg/dL [facility] Comment: eAG equivalents for HbA1c percentages: HbA1c(%) ?eAG(mg/dL) 6.0 ?126 6.5 ?140 7.0 ?154 7.5 ?169 8.0 ?183 8.5 ?197 9.0 ?212 9.5 ?226 10.0 ? 240 Limitations: The eAG calculation has not been validated on women, individuals below 18 years old and above 70 years old, and individuals with hemoglobinopathies. Additional resources are available on [facility] website. Adrian DUMONT, Rufus J, Jaylene R, et al. ??Tr anslating the A1C assay into estimated average glucose values. ??Diabetes Care 2008:31(8):1472-4813. Specimen Anatomical Collection Method Collection Time Receive d Time (Source) Location / / Volume Laterality Blood 08/13/2021 5:54 AM 2 6:05 EDT AM EDT Resulting Agency Comment Spec In Lab Joshua Che MD CHEMISTRY ORDERABLES Performing Organization Address City/[facility]/ZIP [place] [address] Phosphorus (08/13/2021 5:54 AM EDT) P athologist Signature Phosphorus 3.1 2.5 - 4.5 [place] mg/dL [facility] Specimen Anatomical Collection Method Collection Time Receive d Time (Source) Location / / Volume Laterality Blood 08/13/2021 5:54 AM 2 6:05 EDT AM EDT Resulting Agency Comment Spec In Lab Joshua Che MD CHEMISTRY ORDERABLES Performing Organization Address City/[facility]/ZIP [place] [address] Magnesium (08/13/2021 5:54 AM EDT) P athologist Signature Magnesium 0.80 0.69 - 1.07 [place] mmol/L [facility] Specimen Anatomical Collection Method Collection Time Receive d Time (Source) Location / / Volume Laterality Blood 08/13/2021 5:54 AM 2 6:05 EDT AM EDT Resulting Agency Comment Spec In Lab Joshua Che MD CHEMISTRY ORDERABLES Performing Organization Address City/[facility]/ZIP [facility] [place] [address] (ABNORMAL) Basic Metabolic Panel (non-fasting) (08/13/2021 5:54 AM EDT) P athologist Signature Glucose Lvl 196 65 - 199 [facility] mg/dL [facility] Comment: Diabetes: >=200 mg/dL plus symp toms BUN 16 8 - 18 mg/dL [facility] Creatinine 0.59 (L) 0.70 - 1.20 mg/dL [facility] Sodium 136 135 - 145 mmol/L [facility] Potassium 3.5 3.5 - 5.0 mmol/L [facility] Comment: Please note: ??Patients with WBC >100,00 0 may have falsely elevated Potassium levels. ??For accurate Potassium quantif ication in these patients send serum separator tube (gold top) for subsequent determinations. ??Contact the Clinical Chemistry Laboratory if there are any qu estions. Chloride 99 98 - 107 mmol/L [facility] CO2 26 22 - 31 mmol/L [facility] Anion Gap 11 5 - 15 mmol/L [facility] Calcium 8.7 8.5 - 10.5 mg/dL [facility] Estimated GFR 100 >=60 mL/min/1.73 m?? [facility] Comment: This patient? s estimated [...] Che MD CHEMISTRY ORDERABLES Performing Organization Address City/[facility]/ZIP [facility] [place] [address] (ABNORMAL) Anaerobic Culture (08/12/2021 7:49 PM EDT) [facility] Method Time Signature Anaerobic Moderate [place] Culture Finegoldia [place] magna (A) [facility] Organism Fineelma ESPINOZA magna (A) [facility] Specimen Anatomical Collection Method Collection Time [...] magna Vancomycin MINIMUM INHIBITORY CONCENTRATIO N 0.25 Jsohua Che MD MICROBIOLOGY - GENERAL ORDER [place] Performing Organization Address City/[facility]/ZIP [place] [address] (ABNORMAL) Tissue culture (08/12/2021 7:49 PM EDT) Component Value Ref Test Analysis Performed At [facility] Method Time Signature Tissue Moderate [place] Culture Coagulase [place] negative [facility] species (A) LABORATORY Gram Stain Moderate Neutrophils seen MAR Y Moderate Gram Positive Cocci seen [place] Results called to and read back by maritza ??08/12/21 21:42:05 [facility] () [facility] Organism Coagulase [facility] negative [place] Staphylococcus [facility] species (A) [facility] Organism Gram Positive [facility] Cocci (A) [facility] Specimen Anatomical Collection Method Collection Time [...] Comment: Gentamicin is not a ppropriate for [place]-therapy. Coagulase negative staphylococcus Levofloxacin MICROSCAN METH OD [...] - GENERAL ORDER [place] Performing Organization Address City/[facility]/ZIP [place] [address] Anaerobic Culture (08/12/2021 7:49 PM EDT) [facility] [employer] Method Time Signature Anaerobic No anaerobic [place] Culture organisms [facility] LABORATORY Specimen (Source) Anatomical Collection Method Collection Time Re ceived Time Location / / Volume Laterality Abdominal Fluid 08/12/2021 7:49 8:55 PM EDT PM EDT Comment: Abdominal Wall Abscess Fluid Cu lture Resulting Agency Comment Spec In Lab Joshua Che MD MICROBIOLOGY - GENERAL ORDER [place] Performing Organization Address City/[facility] [place] [address] (ABNORMAL) Body Fluid Culture, Aerobic (08/12/2021 7:49 PM EDT) Component Value Ref Test Analysis Performed At [facility] [employer] Range Method Time Signature Body Fluid Moderate mixed Gram Positive organisms including Coagulase negative [facility] Culture Staphylococcus species [facility] CK Susceptibilities previously reported [facility] Gram Stain Cytocentrifuge Gram Stain performed [place] Neutrophils seen [place] Many Gram Positive Cocci seen [facility] Results called to and read back by Dilip rojas ?? 2 22:08:54 [facility] () LABORATORY Organism Coagulase negative [place] Staphylococcus [place] species (A) [facility] Organism Gram Positive Cocci [facility] () [facility] Specimen (Source) Anatomical Collection Method Collection Time Re ceived Time Location / / Volume Laterality Abdominal Fluid 08/12/2021 7:49 8:55 PM EDT PM EDT Comment: Abdominal Wall Abscess Fluid Cu lture Resulting Agency Comment Spec In Lab Joshua Che MD MICROBIOLOGY - GENERAL ORDER [place] Performing Organization Address City/State/ZIP [place] [address] COVID-19 PCR (08/12/2021 4:02 PM EDT) [facility] Method Time Signature SARS-CoV-2 Not Detected Not Detected [place] RNA PCR [facility] Comment: This result should be interpreted [...] using the Simplexa COVID-19 Direct Assay by [employer] Livestar as authorized by the FDA issued Emergency [...] Department of Pathology and Laboratory Medicine at [facility], certified under the Clinical Laboratory Improvement Amendmen [...] clinical management guidance information are available at [facility] CDC Coronavirus Disease 2019 (COVID-19) webpage under Information fo r Healthcare Professionals (https://www.cdc.gov/coronavirus/2019-nc ov/hcp/index.html). Additional information about this and ot her EUA tests can be found in provider and patient fact sheets at the following FDA website: https://www.fda.gov/medical-devices/hsohjgfdmig-rmajgsl-6274-weebo-45-dvgusfpne- hjq-qnwanzydaqapwj-rnrwxvx-devices/xkiiy-pnqbjctjdni-mofq SARS-CoV-2 Source [place] Swab [facility] Specimen (Source) Anatomical Collection Method Collection Time Re ceived Time Location / / Volume Laterality Nasopharyngeal Swab 08/12/2021 4:02 08/12 PM EDT 4:49 PM EDT Comment: Symptoms->Surveillance Resulting Agency Comment Spec In Lab Viviana Camacho MD MICROBIOLOGY - GENERAL ORDER [place] Performing Organization Address City/State/ZIP [place] [address] Abdomen & Pelvis [...] who have questions please contact the health housekeeper caregiver that requested your imaging first. ? Electronically signed by: Jas chairez MD, [facility] ([phone]), at 08/12/2021 3:53 PM Narrative 08/12/2021 3:53 [...] ho have questions please contact the health housekeeper caregiver that requested your imaging first. Electronically signed by: Jas chairez MD, [facility] ([phone]), at 08/12/2021 3:53 PM Tu Banegas OVEN DRIER TENDER IMG CT ORDERABLES (ABNORMAL) BLOOD GAS 2 VENOUS (08/12/2021 2:15 PM EDT) Analysis Performed At Patho logist Time Signature pH Lan 7.43 (H) 7.32 - [facility] 7.42 [facility] pCO2 Lan 44 41 - 51 [facility] LABORATORY pO2 Lan 29 25 - 40 [facility] LABORATORY HCO3 Lan 28.2 mmol/L [facility] BE Lan 3.8 mmol/L [facility] Hgb Blood Gas 14.2 11.7 - [facility] 15.5 g/dL [facility] O2HB Lan 51.2 % [facility] COHB Lan 5.8 % [facility] Comment: Nonsmokers: 0.5-1.5% COHB Smokers: Variable, but usually less than 10% Toxic: 20-30% COHB Lethal: Greater than 60% COHB METHB Lan 0.2 <=1.5 % [facility] Na Whole Blood 136 135 - 145 mmol/L [facility] K Whole Blood 2.6 (Critical) 3.5 - 5.0 mmol/L [facility] Comment: Noted by keyboard instrument repairer. Please note: Patients with WBC >100,000 may have falsely elevated Potassium levels. Contact the Clinical Chemistry L aboratory if there are any questions. ICa Whole Blood 1.19 1.15 - 1.33 mmol/L [facility] Comment: Note: ??Total bilirubin higher than 20 m g/dL may lead to falsely low ionized calcium. CL Whole Blood 97 (L) 98 - 107 mmol/L [facility] Gluc Whole Bld 146 65 - 199 mg/dL [facility] Comment: Diabetes: >=200 mg/dL plus symp toms Lactate WB 1.7 0.5 - 2.2 mmol/L [facility] BGas Source Venous [facility] Specimen Anatomical Collection Method Collection Time Receive d Time (Source) Location / / Volume Laterality Blood 08/12/2021 2:15 PM 2 2:15 EDT PM EDT Viviana Camacho MD CHEMISTRY ORDERABLES Performing Organization Address City/State/ZIP [place] [address] (ABNORMAL) Differential, Automated (08/12/2021 2:10 PM EDT) [facility] gist Method Time Signature Neutrophils % 66.7 % [facility] Neutr Abs (ANC) 11.06 (H) 1.70 - [facility] 6.10 [facility] x10(3)/[facility] LABORATORY Lymphocytes % 18.6 % [facility] Lymphocytes Abs 3.1 0.9 - 3.2 [facility] x10(3)[facility] LABORATORY Monocytes % 7.7 % [facility] Monocyte Abs 1.3 (H) 0.3 - 0.9 [facility] x10(3)[facility] LABORATORY Eosinophils % 5.6 % [facility] Eosinophils Abs 0.9 (H) 0.0 - 0.4 [facility] x10(3)/[facility] LABORATORY Basophils % 1.0 % [facility] Basophils Abs 0.2 (H) 0.0 - 0.1 [facility] x10(3)[facility] LABORATORY Immature Gran % 0.40 % [facility] Comment: Immature granulocytes(IG's)percentage an d absolute count will include metamyelocytes, myelocytes, and promyelo cytes. Blood smears from CBCs yielding IG's will be scanned manually for concor dance. If this scan disagrees with the automated IG or if promyelocytes are not ed, a manual differential will be performed. [place] Gran Abs 0.06 (H) 0.00 - 0.04 x10(3)/[facility] LABORATORY Specimen Anatomical Collection Method Collection Time Receive d Time (Source) Location / / Volume Laterality Blood 08/12/2021 2:10 PM 2:20 EDT PM EDT Resulting Agency Comment Spec In Lab Tu Lobitodaniellaanthony MUNOZ HEMATOLOGY ORDERABLES Performing Organization Address City/State/ZIP [place] [address] (ABNORMAL) Hemogram (08/12/2021 2:10 PM EDT) Analysis Performed At Patho logist Time Signature WBC 16.6 (H) 4.0 - 9.5 [facility] x10(3)/[facility] LABORATORY RBC 4.60 4.00 - [facility] 5.21 [facility] x10(6)/[facility] LABORATORY Hemoglobin 13.4 11.7 - [facility] 15.5 g/dL [facility] Hematocrit 40.7 35.7 - [facility] 45.8 % [facility] MCV 88.5 82.6 - [facility] 94.4 [facility] LABORATORY MCH 29.1 27.1 - [facility] 32.[address] [facility] MCHC 32.9 31.7 - [facility] 35.0 g/dL [facility] Platelets 480 (H) 145 - 357 [facility] x10(3)/[facility] LABORATORY RDWSD 41.2 37.0 - [facility] 46.0 [facility] LABORATORY RDWCV 12.6 11.5 - [facility] 14.1 % [facility] MPV 9.2 7.6 - 12.9 [facility] LABORATORY nRBC % Auto 0.0 % [facility] nRBC Abs Auto 0.000 0.000 - [facility] 0.000 [facility] x10(3)/[facility] LABORATORY Specimen Anatomical Collection Method Collection Time Receive d Time (Source) Location / / Volume Laterality Blood 08/12/2021 2:10 PM 2 2:20 EDT PM EDT Resulting Agency Comment Spec In Lab Tu Banegas APRN HEMATOLOGY ORDERABLES Performing Organization Address City/State/ZIP [place] [address] (ABNORMAL) Basic Metabolic Panel (non-fasting) (08/12/2021 2:10 PM EDT) P athologist Signature Glucose Lvl 147 65 - 199 [facility] mg/dL [facility] Comment: Diabetes: >=200 mg/dL plus symp toms BUN 16 8 - 18 mg/dL [facility] Creatinine 0.64 (L) 0.70 - 1.20 mg/dL [facility] Sodium 135 135 - 145 mmol/L [facility] Potassium 2.7 (Critical) 3.5 - 5.0 mmol/L [facility] Comment: called by EB/read back by Lana Pantoja 5-3 0-22 @ [id number] Please note: ??Patients with WBC >100,00 0 may have falsely elevated Potassium levels. ??For accurate Potassium quantif ication in these patients send serum separator tube (gold top) for subsequent determinations. ??Contact the Clinical Chemistry Laboratory if there are any qu estions. Chloride 96 (L) 98 - 107 mmol/L [facility] CO2 27 22 - 31 mmol/L [facility] Anion Gap 12 5 - 15 mmol/L [facility] Calcium 8.7 8.5 - 10.5 mg/dL [facility] Estimated GFR 98 >=60 mL/min/1.73 m?? [facility] Comment: This patient? s estimated [...] Resulting Agency Comment Spec In Lab Tu Lobitodaniellaanthony MUNOZ CHEMISTRY ORDERABLES Performing Organization Address City/State/ZIP Code Phon e Number [place] [id number] documented in this encounter [...] Until Kiara 08/22/21 at 1409, Pain, Routine Given 08/20/2021 6:19 [...] IRIS RY 30 MIN PRN, Starting on 08/13/21 at 1130, Until Kiara 08/22/21 [...] or Regular (not diet) soda OR If SIDE LASTER STAPLE O, give 15 gram glucose 40% oral [...] St arting on Thu08/12/21 at 1528, Until Kiara 6/9/22 at 1409, Nausea sodium chloride 0.9 % [...] PRN, Starting on Thu08/13/21 at 1130, Until Kaira 08/22/21 at 1409
For BG 50-70 mg/dL: [...] episode. & nbsp; For persistent hypoglycemia, con music sound light technician longer-acting treatment for the duration of the [...] Oral, EVERY 4 HOURS PRN, Starting on e 08/13/21 at 1308, Until Kiara 08/22/21 at 1409, Pain, Routine documented in this encounter Care Teams Car Cleaning Supervisor Relationship Specialty Start Date End Date Ally Ortiz APRN PCP - General Internal Medicine 04/24/[address] [place] [address] documented as of this encounter
--- OUTSIDE RECORDS SUMMARY | 2021-09-27 14:52 | XMS_ITS | Encounter Summary ---
:1960 [place] [address] Care Team Providers Name Role Phone DianaLexisAllyjudy Hernandez APRN Primary Care Provider Encounter Details Date Type Department Care Team Description 08/07/2021 Notes Only General Surgery at [facility] Paloma Mota APRN [facility] [phone] GENERAL SURGERY [phone] [place], [place] [address] (Wo rk) Social History Tobacco [...] encounter Progress Notes Paloma Mota APRN - 08/07/2021 2:12 PM EDT Seen in clinic post ventral hernia repair with mesh (07/23/21). Reports 11/23-02/01 left abdominal pain since yesterday am. I am in agony, crying in clinic. No fevers or chills, n/v. Her shelley have been removed, incision without erythema, We have transported the pt to the ED for further evaluation, she was accepted by Dr Darryn Daniel. documented in this encounter Plan of Treatment Upcoming Encounters Date Type Specialty Care Team Description 09/30/2021 Office Visit General Surgery Paloma Mota APRN [facility] ER GENERAL SURGERY [place], [place] [address] (Wo rk) 09/30/2021 Office Visit Infectious Diseases Werner Harrell MD [facility] ER INFECTIOUS DISEA [address] [place], [place] [address] (Wo rk) documented as of this encounter Visit Diagnoses Not on filedocumented in this encounter Care Teams Machine Cell Tuber Relationship Specialty Start Date End Date Ally Ortiz APRN PCP - General Internal Medicine 04/24/[address] [place] [address] documented as of this encounter
--- OUTSIDE RECORDS SUMMARY | 2021-09-27 14:52 | XMS_ITS | Encounter Summary ---
:1960 [place] [address] Care Team Providers Name Role Phone Ally Ortiz APRN Primary Care Provider Reason for Visit Reason Comments Post-op Problem Auth/Cert Specialty Diagnoses / Procedures Referred By Contact Refer red To Contact Diagnoses Wound infection after surgery Procedures ER IPI Referral ID Status Reason Start Date Expiration Date Visits Requ ested Visits Authorized [id number] 1 1 Encounter Details Date Type Department Care Team Description 08/15/2021 Surgery Main Operating Room Olya Edmond MD MODIFIER WOUND VAC [facility] [place] [address] [place] [address] [phone] Social History Tobacco Use Types Packs/Day Years [...] Sign Reading Time Taken Comments Blood Pressure 167/104 08/15/2021 4:00 AM EDT Pulse 56 08/15/2021 4:00 AM EDT Temperature 36.1 ??C (97 ??F) 08/15/2021 3:55 AM EDT Respiratory Rate 13 08/15/2021 4:00 AM EDT Oxygen Saturation 100% 08/15/2021 4:00 AM EDT Inhaled Oxygen Concentration - - [...] (WRVU 12.04) (Midline) Operative findings: 08/12/2021 - [id number] abscess of abdominal wall over mesh. - [...] One white sponge and one black sponge placed.??[id number] wound.?? 08/17/2021 -22 x 14 x 4 [...] symptoms. Hospital Course: Ms. Montgomery presented the [facility] emergency department and subsequently [...] Procedure Component Value Units Date/Time COVID-19 PCR [[id number]] Collected: 08/15/21 1531 Lab Status: Final result [...] diagnosis of COVID-19 is performed using the [employer] m SARS-CoV-2 Assay as authorized by the FDA Emergency Use Authorization (EUA). This EUA assay is intended for In-vitro Diagnostic (IVD) use with respiratory specimens such as nasopharyngeal swabs collected from individuals during the acute phase of infection. This assay is performed based on the instructions for use provided by [employer] and additional guidance provided by CDC and FDA. Testing is performed in the [facility] within the Department of Pathology and Laboratory Medicine at [facility], certified under the Clinical Laboratory [...] fact sheets at the following FDA website: https://www.fda.gov/medical-devices/bxglepfrrud-cdtifcl-2918-ymmqv-59-xpysaniev- wxb-gkhipjzhxrcrlp-runennw-devices/xrrrn-crpjdxbwwik-irnr SARS-Cov-2 RNA Source APPLIANCES SAMPLE MAKER Swab Body Fluid Culture, Aerobic & Anaerobic Abdominal Fluid [[id number]] (Abnormal) Collected: 08/12/211948 Lab Status: Final result Specimen: Abdominal Fluid Updated: 08/16/21 1551 Tissue Culture, Aerobic & Anaerobic Stomach [[id number]] (Abnormal) Collected: 08/12/211948 Lab Status: Final result Specimen: Stomach Updated: 08/20/21 1236 Body Fluid Culture, Aerobic [[id number]] (Abnormal) Collected: 08/12/211948 Lab Status: Final result Specimen: Abdominal Fluid Updated: 08/16/21 1319 Body Fluid Culture -- Moderate mixed Gram Positive organisms including Coagulase negative Staphylococcus species Susceptibilities previously reported Gram Stain -- Cytocentrifuge Gram Stain performed Neutrophils seen Many Gram Positive Cocci seen Results called to and read back by Dilip rojas 08/12/21 22:08:54 WS Anaerobic Culture [[id number]] Collected: 08/12/211948 Lab Status: Final result Specimen: Abdominal Fluid Updated: 08/16/21 1551 Anaerobic Culture No anaerobic organisms isolated Tissue culture [[id number]] (Abnormal) (Susceptibility) Collected: 08/12/211948 Lab Status: Final [...] Sensitive [1] Gentamicin is not appropriate for [place]-therapy. Linear View Anaerobic Culture [[id number]] (Abnormal) (Susceptibility) Collected: 08/12/21 1949 Lab Status: Final result Specimen: Stomach Updated: 08/18/21 1355 Anaerobic Culture Moderate Finegoldia magna Susceptibility Finegoldia magna MINIMUM INHIBITORY CONCENTRATION Metronidazole Sensitive Penicillin Sensitive Linear View COVID-19 PCR [[id number]] Collected: 08/12/21 1602 Lab Status: Final result [...] using the Simplexa COVID-19 Direct Assay by [employer] as authorized by the FDA issued Emergency [...] Department of Pathology and Laboratory Medicine at [facility], certified under the Clinical Laboratory [...] fact sheets at the following FDA website: https://www.fda.gov/medical-devices/zvzrzklgrwm-rlvrdrp-2244-laywi-23-gvjyonude- hya-qwutcsumifisaz-yfrrbkz-devices/rwzpd-jeqmoudrmsq-tapn SARS-CoV-2 Source APPLIANCES SAMPLE MAKER Swab Abscess/Wound Asp Culture, Aerobic and Anaerobic Deep Wound; Abdomen [[id number]] Collected: 07/23/211536 Lab Status: Final result Specimen: Deep Wound from Abdomen Updated: 07/27/21 1340 Abscess/Wound Aspirate Culture [[id number]] Collected: 07/23/211536 Lab Status: Final result Specimen: Deep Wound from Abdomen Updated: 07/27/21 1029 Abscess/Wound Aspirate Culture -- Normal cutaneous tania isolated from broth culture. No growth on original plates. Gram Stain -- Few Neutrophils seen No microorganisms seen. Anaerobic Culture [[id number]] Collected: 07/23/211536 Lab Status: Final result Specimen: [...] who have questions please contact the health primary care coordinator that requested your imaging first. Discharge Physical [...] Center 09/03/2021 10:30 AM Paloma Mota APRN [facility] SURG [facility] 09/30/2021 1:30 PM Werner Harrell MD [facility] ID [id number] [facility] Outpatient Services/Studies: Referral to Home Health Referral Priority: Routine Referral Type: Home Health Care Referral Reason: Consult, Test & Treat Referred to Provider: [facility] [place] Number of Visits Requested: 999 Special Instructions Given to Patient at Discharge:. An After Visit Summary was printed and given to the patient. Patient Instructions [facility] Department of General Surgery Discharge Instructions [...] with the Surgery nurses. The number is [phone]. - During the night or weekends call the [facility] desizing machine operator at [phone] and ask to speak to the surgery resident general road production manager for general surgery. Please note: Your surgeon may not be Assessment Coordinator, especially during the night or on weekends, [...] Center 09/03/2021 10:30 AM Paloma Mota APRN [facility] SURG [facility] 09/30/2021 1:30 PM Werner Harrell MD [facility] ID [id number] [facility] [x] Follow-up appointment with General Surgery has already been scheduled [] A request for a follow-up appointment has been made and you should receive information via phone/mail in the next week. If you do not hear anything, please call the clinic at [phone] to confirmor reschedule. If you need a prior authorization, please call the General Surgery Clinic nurses [phone] for prior authorizations assistance General Instructions None Your care was managed by the Trauma and Acute Care Surgery Team at [facility]. If you have any questions or concerns, please feel free to contact us. Provider Contact Information: General Surgery Scheduling: Nurses line for questions: [facility] (after business hours): CC: Ally Ortiz APRN [facility] Signed: Rosmery Moreno MD Department of Surgery 08/22/2021 Acute Care Surgery Pager [phone] documented in this encounter Discharge Instructions Patient InstructionsRosmery Moreno MD - 08/22/2021 8:54 AM EDT [facility] Department of General Surgery Discharge Instructions [...] day, it is best to call the 4 General Surgery Clinic to speak with the Surgery nurses. The number is [phone]. - During the night or weekends call the [facility] desizing machine operator at [phone] and ask to speak to the surgery resident general road production manager for general surgery. Please note: Your surgeon may not be Assessment Coordinator, especially during the night or on weekends, [...] Center 09/03/2021 10:30 AM Paloma Mota APRN [facility] SURG [facility] 09/30/2021 1:30 PM Werner Harrell MD [facility] ID [id number] [facility] [x] Follow-up appointment with General Surgery has already been scheduled [] A request for a follow-up appointment has been made and you should receive information via phone/mail in the next week. If you do not hear anything, please call the clinic at [phone] to confirmor reschedule. If you need a prior authorization, please call the General Surgery Clinic nurses [phone] for prior authorizations assistance documented in this [...] (Pericolace) Take 2 tablets 60 tablet 11 /11/202109/19/2021 8.6-50 mg Tablet by mouth 2 times daily as needed for Constipation. Hold if you are having diarrhea Eszopiclone (LUNESTA) 1 mg Take 1 mg by 0 //2 022 09/19/2021 Tablet mouth nightly as needed. [...] WOUND OR DEHISCENCE, EXTENSIVE OR COMPLICATED, TRUNK [facility] FOLLOW-UP NEEDED: Does pt need to f-u with surgeon or APPLIANCES SAMPLE MAKER (please indicate reason if attending provider): Yes, APPLIANCES SAMPLE MAKER How soon should TACS f/u be? 2 [...] Fluid Culture, Aerobic & Anaerobic Abdominal Fluid [[id number]] (Abnormal) Collected: 08/12/211948 Lab Status: Preliminary result Specimen: Abdominal Fluid Updated: 08/14/21 1059 Tissue Culture, Aerobic & Anaerobic Stomach [[id number]] (Abnormal) Collected: 08/12/211948 Lab Status: Preliminary result Specimen: Stomach Updated: 08/15/21 0949 Body Fluid Culture, Aerobic [[id number]] (Abnormal) Collected: 08/12/211948 Lab Status: Preliminary result Specimen: Abdominal Fluid Updated: 08/14/21 1059 Body Fluid Culture -- Moderate mixed Gram Positive organisms including Coagulase negative Staphylococcus species Gram Stain -- Cytocentrifuge Gram Stain performed Neutrophils seen Many Gram Positive Cocci seen Results called to and read back by Dilip rojas 08/12/21 22:08:54 WS Anaerobic Culture [[id number]] Collected: 08/12/211948 Lab Status: Preliminary result Specimen: Abdominal Fluid Updated: 08/13/21 1135 Anaerobic Culture No anaerobic organisms isolated to date Tissue culture [[id number]] (Abnormal) (Susceptibility) Collected: 08/12/211948 Lab Status: Preliminary [...] Sensitive [1] Gentamicin is not appropriate for [place]-therapy. Linear View A/P: 61 year old female [...] Moreno MD 08/21/21 Acute Care Surgery Pager: [phone] Attending Addendum I have seen and examined [...] 27.9) performed by Miryam Wiley MD at [facility] MAIN OR ??? PRO COLONOSCOPY, DIAGNOSTIC N/A 08/18/2019 COLONOSCOPY, DIAGNOSTIC performed by Emigdio Lanier MD at [facility] ENDOSCOPY ??? PRO CYSTOSCOPY, INSERT URETERAL STENT Right 09/14/2019 CYSTO, STENT PLACEMENT INTRAOP, TEMPORARY (WRVU 2.82) performed by Werner Fournier MD at [facility] MAIN OR ? ? PRO DEBRIDEMENT MUSCLE AND FASCIA 20 SQ CM/< Midline 08/15/2021 DEBRIDEMENT SKIN, SUBCU, MUSCLE, ABDOMEN (WRVU 2.7) performed by Olya Daniel MD at [facility] OR ? ? PRO DEBRIDEMENT SUBCUTANEOUS TISSUE 20 SQCM/< Midline 08/17/2021 DEBRIDEMENT SKIN AND SUBCU, FIRST 20 SQ CM, ABDOMEN (WRVU 1.01) performed by Negro Watters MD [facility] MAIN OR ??? PRO EXPLORATION OF ABDOMEN N/A 04/25/2020 @EXPLORATORY LAPAROTOMY, WITH/WITHOUT BIOPSY(S) (WRVU 12.54) performed by Liberty Swann MD at [facility] OR ??? PRO IMPLANT MESH HERNIA REPAIR/DEBRIDEMENT CLOSURE N/A 2021 IMPLANT MESH FOR INCISIONAL OR VENTRAL HERNIA REPAIR (WRVU 4.88) performed by Negro Watters MD at [facility] OR ??? PRO INCISION AND DRAINAGE ABSCESS SIMPLE/SINGLE N/A 08/12/2021 I & D ABSCESS, SIMPLE OR SINGLE, TRUNK (WRVU 1.22) performed by Joshua Che MD at [facility] OR ??? PRO MOBILIZE SPLENIC FLEX N/A 09/14/2019 @MOBILIZATION OF SPLENIC FLEXURE (WRVU 2.23) performed by Miryam Wiley MD at [facility] OR ??? PRO OMENTAL FLAP, INTRA-ABDOMINAL 09/14/2019 @OMENTAL FLAP, INTRA-ABDOMINAL (WRVU 6.54) performed by Miryam Wiley MD at [facility] OR ??? PRO REPAIR RECURR INCIS HERNIA, DEONTE N/A 04/25/2020 HERNIA REPAIR, VENTRAL OR INCISIONAL, RECURRENT, INCARCERATED (WRVU 15.53) performed by Liberty Swann MD at [facility] OR ??? PRO REPAIR RECURR INCIS HERNIA, DEONTE Left 04/25/2021 HERNIA REPAIR, VENTRAL OR INCISIONAL, RECURRENT, INCARCERATED (WRVU 15.53) performed by Loco White MD at [facility] OR ??? PRO REPAIR RECURR INCIS HERNIA, DEONTE N/A 2021 HERNIA REPAIR, VENTRAL OR INCISIONAL, RECURRENT, INCARCERATED (WRVU 15.53) performed by Negro Watters MD at [facility] MAIN OR ??? PRO SEC CLSR SURG WOUND/DEHSN EXTENSIVE/COMPLICATED Midline 08/19/2021 SECONDARY CLOSURE SURGICAL WOUND OR DEHISCENCE, EXTENSIVE OR COMPLICATED, TRUNK (WRVU 12.04) performed by Liberty Swann MD at [facility] MAIN OR ??? PRO SIGMOIDOSCOPY, DIAGNOSTIC N/A 09/14/2019 SIGMOIDOSCOPY, FLEXIBLE W/WO SPECIMEN BY BRUSHING OR WASHING (WRVU 0.84) performed by Miryam Wiley MD at [facility] MAIN OR ??? TUBAL LIGATION Social History: Home set up: pt lives in a large 2 level home with several family members. All needs met on the 1stlevel and there is a ramp at the entrance. Pt essentially has 06/10 supervision/assist available. Bathroom has a stall shower with grab bars. PLOF: Pt is independent with most ADLs; EMELIA assist with drying off after shower and occasional bathing if needed. Pt wears dresses and slip on shoes. Pt c/o difficulty with anything that requires bending but uses a courtroom reporter for picking things up from the floor, a sock aid when she wears socks, and toilet bidet for BM hygiene. Family manages boom crane operator, shopping and cooking. Pt uses a rollator [...] WFL Vision & Perception: WNL/WFL corrective lenses timekeeping supervisor Communication/Hearing: WFL Musculoskeletal: Hand dominance: right Strength/AROM: [...] and measurable assessment of functional outcome. Pager: [phone] Patricia Rai, OTR/L Occupational Therapy Rehabilitation Department Werner Harrell MD - 08/20/2021 6:40 PM EDT INFECTIOUS DISEASE FOLLOW-UP NOTE Patient ID: Jahaira Montgomery Room: [address] [place] [address] Active ID Issue(s): Abdominal SSTI infection involving [...] do not hesitate to page ID RED [id number] with any questions or concerns. Werner Harrell MD Infectious Diseases Fellow Pager #: [phone] 08/20/2021 6:22 PM Associated attestation - Liberty Tracy MD - 08/21/2021 9:42 AM EDT I have seen and examined the patient and discussed the assessment and plan with the fellow. I reviewed the fellow's note and I agree with the documented findings and recommendations. Liberty Tracy MD ID Staff Physician Porsha Santos RN - 08/20/2021 2:52 PM EDT RN/MIGDALIA has updated [employer] rep/[facility]. Pt will NOT be discharged home with VAC in place. Merle Freeman) GENA Santos RN/MIGDALIA - Cellphone: [phone] Pager: [phone] Covering Service RN/CM Arvin Lacy PT - [...] 27.9) performed by Miryam Wiley MD at [facility] MAIN OR ??? PRO COLONOSCOPY, DIAGNOSTIC N/A 08/18/2019 COLONOSCOPY, DIAGNOSTIC performed by Emigdio Lanier MD at [facility] ENDOSCOPY ??? PRO CYSTOSCOPY, INSERT URETERAL STENT Right 09/14/2019 CYSTO, STENT PLACEMENT INTRAOP, TEMPORARY (WRVU 2.82) performed by Werner Fournier MD at [facility] OR ? ? PRO DEBRIDEMENT MUSCLE AND FASCIA 20 SQ CM/< Midline 08/15/2021 DEBRIDEMENT SKIN, SUBCU, MUSCLE, ABDOMEN (WRVU 2.7) performed by Olya Daniel MD at [facility] OR ? ? PRO DEBRIDEMENT SUBCUTANEOUS TISSUE 20 SQCM/< Midline 08/17/2021 DEBRIDEMENT SKIN AND SUBCU, FIRST 20 SQ CM, ABDOMEN (WRVU 1.01) performed by Negro Watters MD [facility] OR ??? PRO EXPLORATORY OF ABDOMEN N/A 04/25/2020 @EXPLORATORY LAPAROTOMY, WITH/WITHOUT BIOPSY(S) (WRVU 12.54) performed by Liberty Swann MD at [facility] OR ??? PRO IMPLANT MESH HERNIA REPAIR/DEBRIDEMENT CLOSURE N/A 2021 IMPLANT MESH FOR INCISIONAL OR VENTRAL HERNIA REPAIR (WRVU 4.88) performed by Negro Watters MD at [facility] OR ??? PRO INCISION AND DRAINAGE ABSCESS SIMPLE/SINGLE N/A 08/12/2021 I & D ABSCESS, SIMPLE OR SINGLE, TRUNK (WRVU 1.22) performed by Joshua Che MD at [facility] OR ??? PRO MOBILIZE SPLENIC FLEX N/A 09/14/2019 @MOBILIZATION OF SPLENIC FLEXURE (WRVU 2.23) performed by Miryam Wiley MD at [facility] MAIN OR ??? PRO OMENTAL FLAP, INTRA-ABDOMINAL 09/14/2019 @OMENTAL FLAP, INTRA-ABDOMINAL (WRVU 6.54) performed by Miryam Wiley MD at [facility] OR ??? PRO REPAIR RECURR INCIS HERNIA, DEONTE N/A 04/25/2020 HERNIA REPAIR, VENTRAL OR INCISIONAL, RECURRENT, INCARCERATED (WRVU 15.53) performed by Liberty Swann MD at [facility] OR ??? PRO REPAIR RECURR INCIS HERNIA, DEONTE Left 04/25/2021 HERNIA REPAIR, VENTRAL OR INCISIONAL, RECURRENT, INCARCERATED (WRVU 15.53) performed by Loco White MD at [facility] OR ??? PRO REPAIR RECURR INCIS HERNIA, DEONTE N/A 2021 HERNIA REPAIR, VENTRAL OR INCISIONAL, RECURRENT, INCARCERATED (WRVU 15.53) performed by Negro Watters MD at [facility] OR ??? PRO SEC CLSR SURG WOUND/DEHSN EXTENSIVE/COMPLICATED Midline 08/19/2021 SECONDARY CLOSURE SURGICAL WOUND OR DEHISCENCE, EXTENSIVE OR COMPLICATED, TRUNK (WRVU 12.04) performed by Liberty Swann MD at [facility] OR ??? PRO SIGMOIDOSCOPY, DIAGNOSTIC N/A 09/14/2019 SIGMOIDOSCOPY, FLEXIBLE W/WO SPECIMEN BY BRUSHING OR WASHING (WRVU 0.84) performed by Miryam Wiley MD at [facility] OR ??? TUBAL LIGATION Social History: Pt [...] in this evaluation. Time IN / OUT: 7003-8278 Total Minutes, Physical Therapy: 15 Billing Code: Swetha Lacy, PT Pager: [phone] Physical Therapy Inpatient Rehabilitation Department Ai Arriaza [...] Fluid Culture, Aerobic & Anaerobic Abdominal Fluid [[id number]] (Abnormal) Collected: 08/12/211948 Lab Status: Preliminary result Specimen: Abdominal Fluid Updated: 08/14/21 1059 Tissue Culture, Aerobic & Anaerobic Stomach [[id number]] (Abnormal) Collected: 08/12/211948 Lab Status: Preliminary result Specimen: Stomach Updated: 08/15/21 0949 Body Fluid Culture, Aerobic [[id number]] (Abnormal) Collected: 08/12/211948 Lab Status: Preliminary result Specimen: Abdominal Fluid Updated: 08/14/21 1059 Body Fluid Culture -- Moderate mixed Gram Positive organisms including Coagulase negative Staphylococcus species Gram Stain -- Cytocentrifuge Gram Stain performed Neutrophils seen Many Gram Positive Cocci seen Results called to and read back by Dilip rojas 08/12/21 22:08:54 WS Anaerobic Culture [[id number]] Collected: 08/12/211948 Lab Status: Preliminary result Specimen: Abdominal Fluid Updated: 08/13/21 1135 Anaerobic Culture No anaerobic organisms isolated to date Tissue culture [[id number]] (Abnormal) (Susceptibility) Collected: 08/12/211948 Lab Status: Preliminary [...] Sensitive [1] Gentamicin is not appropriate for [place]-therapy. Linear View A/P: 61 year old female [...] Moreno MD 08/20/21 Acute Care Surgery Pager: [phone] Attending Addendum I have seen and examined [...] Fluid Culture, Aerobic & Anaerobic Abdominal Fluid [[id number]] (Abnormal) Collected: 08/12/211948 Lab Status: Preliminary result Specimen: Abdominal Fluid Updated: 08/14/21 1059 Tissue Culture, Aerobic & Anaerobic Stomach [[id number]] (Abnormal) Collected: 08/12/211948 Lab Status: Preliminary result Specimen: Stomach Updated: 08/15/21 0949 Body Fluid Culture, Aerobic [[id number]] (Abnormal) Collected: 08/12/211948 Lab Status: Preliminary result Specimen: Abdominal Fluid Updated: 08/14/21 1059 Body Fluid Culture -- Moderate mixed Gram Positive organisms including Coagulase negative Staphylococcus species Gram Stain -- Cytocentrifuge Gram Stain performed Neutrophils seen Many Gram Positive Cocci seen Results called to and read back by Dilip rojas 08/12/21 22:08:54 WS Anaerobic Culture [[id number]] Collected: 08/12/211948 Lab Status: Preliminary result Specimen: Abdominal Fluid Updated: 08/13/21 1135 Anaerobic Culture No anaerobic organisms isolated to date Tissue culture [[id number]] (Abnormal) (Susceptibility) Collected: 08/12/211948 Lab Status: Preliminary [...] Sensitive [1] Gentamicin is not appropriate for [place]-therapy. Linear View A/P: 61 year old female [...] Moreno MD 08/19/21 Acute Care Surgery Pager: [phone] Attending Addendum I have seen and examined [...] Fluid Culture, Aerobic & Anaerobic Abdominal Fluid [[id number]] (Abnormal) Collected: 08/12/211948 Lab Status: Preliminary result Specimen: Abdominal Fluid Updated: 08/14/21 1059 Tissue Culture, Aerobic & Anaerobic Stomach [[id number]] (Abnormal) Collected: 08/12/211948 Lab Status: Preliminary result Specimen: Stomach Updated: 08/15/21 0949 Body Fluid Culture, Aerobic [[id number]] (Abnormal) Collected: 08/12/211948 Lab Status: Preliminary result Specimen: Abdominal Fluid Updated: 08/14/21 1059 Body Fluid Culture -- Moderate mixed Gram Positive organisms including Coagulase negative Staphylococcus species Gram Stain -- Cytocentrifuge Gram Stain performed Neutrophils seen Many Gram Positive Cocci seen Results called to and read back by Dilip rojas 08/12/21 22:08:54 WS Anaerobic Culture [[id number]] Collected: 08/12/211948 Lab Status: Preliminary result Specimen: Abdominal Fluid Updated: 08/13/21 1135 Anaerobic Culture No anaerobic organisms isolated to date Tissue culture [[id number]] (Abnormal) (Susceptibility) Collected: 08/12/211948 Lab Status: Preliminary [...] Sensitive [1] Gentamicin is not appropriate for [place]-therapy. Linear View A/P: 61 year old female [...] Reyes MD 08/18/21 Acute Care Surgery Pager: [phone] SURGICAL ATTENDING NOTE: Pt seen and examined [...] with reversal 03/2019, incarcerated ventral hernia in 2/2021s/p primary repair, hospitalization in 04/2021 for recurrent [...] Fluid Culture, Aerobic & Anaerobic Abdominal Fluid [[id number]] (Abnormal) Collected: 08/12/211948 Lab Status: Preliminary result Specimen: Abdominal Fluid Updated: 08/14/21 1059 Tissue Culture, Aerobic & Anaerobic Stomach [[id number]] (Abnormal) Collected: 08/12/211948 Lab Status: Preliminary result Specimen: Stomach Updated: 08/15/21 0949 Body Fluid Culture, Aerobic [[id number]] (Abnormal) Collected: 08/12/211948 Lab Status: Preliminary result Specimen: Abdominal Fluid Updated: 08/14/21 1059 Body Fluid Culture -- Moderate mixed Gram Positive organisms including Coagulase negative Staphylococcus species Gram Stain -- Cytocentrifuge Gram Stain performed Neutrophils seen Many Gram Positive Cocci seen Results called to and read back by Dilip rojas 08/12/21 22:08:54 WS Anaerobic Culture [[id number]] Collected: 08/12/211948 Lab Status: Preliminary result Specimen: Abdominal Fluid Updated: 08/13/21 1135 Anaerobic Culture No anaerobic organisms isolated to date Tissue culture [[id number]] (Abnormal) (Susceptibility) Collected: 08/12/211948 Lab Status: Preliminary [...] Sensitive [1] Gentamicin is not appropriate for [place]-therapy. Linear View A/P: 61 year old female [...] Moreno MD 08/17/21 Acute Care Surgery Pager: [phone] SURGICAL ATTENDING NOTE: Pt seen and examined [...] for vancomycin trough 20.1 Micro: Tissue culture [[id number]] (Abnormal) Collected: 08/12/211948 Lab Status: Preliminary result [...] Moreno MD 08/16/21 Acute Care Surgery Pager: [phone] SURGICAL ATTENDING NOTE: Pt seen and examined [...] Fluid Culture, Aerobic & Anaerobic Abdominal Fluid [[id number]] (Abnormal) Collected: 08/12/211948 Lab Status: Preliminary result Specimen: Abdominal Fluid Updated: 08/14/21 1059 Tissue Culture, Aerobic & Anaerobic Stomach [[id number]] (Abnormal) Collected: 08/12/211948 Lab Status: Preliminary result Specimen: Stomach Updated: 08/15/21 0949 Body Fluid Culture, Aerobic [[id number]] (Abnormal) Collected: 08/12/211948 Lab Status: Preliminary result Specimen: Abdominal Fluid Updated: 08/14/21 1059 Body Fluid Culture -- Moderate mixed Gram Positive organisms including Coagulase negative Staphylococcus species Gram Stain -- Cytocentrifuge Gram Stain performed Neutrophils seen Many Gram Positive Cocci seen Results called to and read back by Dilip rojas 08/12/21 22:08:54 WS Anaerobic Culture [[id number]] Collected: 08/12/211948 Lab Status: Preliminary result Specimen: Abdominal Fluid Updated: 08/13/21 1135 Anaerobic Culture No anaerobic organisms isolated to date Tissue culture [[id number]] (Abnormal) (Susceptibility) Collected: 08/12/211948 Lab Status: Preliminary [...] Sensitive [1] Gentamicin is not appropriate for [place]-therapy. Linear View A/P: 61 year old female [...] Reyes MD 08/15/21 Acute Care Surgery Pager: [phone] Ralph Abdullahi RN - 08/15/2021 6:55 AM [...] to monitor, wound vac intact and set [id number], hemodynamically stable, receiving 6L O2 via SFM [...] monitoring]: Purposeful rounding Call glover within reach Masimo Patient-specific fall prevention interventions for sensory [...] of abdominal wall abscess. OR findings: - 65v07g7ml abscess of abdominal wall over mesh. - [...] normalized K Micro: Body Fluid Culture, Aerobic [[id number]] (Abnormal) Collected: 08/12/211948 Lab Status: Preliminary result Specimen: Abdominal Fluid Updated: 08/14/21 1059 Body Fluid Culture --??Abnormal?? Moderate mixed Gram Positive organisms including Coagulase negative Staphylococcus species ??Abnormal?? Gram Stain --??Abnormal?? Cytocentrifuge Gram Stain performed Neutrophils seen Many Gram Positive Cocci seen Results called to and read back by Dilip rojas ??08/12/21 22:08:54 WS ??Abnormal?? Anaerobic Culture [[id number]] Collected: 08/12/211948 Lab Status: Preliminary result Specimen: Abdominal Fluid Updated: 08/13/21 1135 Anaerobic Culture No anaerobic organisms isolated to date Tissue culture [[id number]] (Abnormal) Collected: 08/12/211948 Lab Status: Preliminary result [...] of abdominal wall abscess. OR findings: - [id number] abscess of abdominal wall over mesh. - [...] normalized K Micro: Body Fluid Culture, Aerobic [[id number]] (Abnormal) Collected: 08/12/211948 Lab Status: Preliminary result Specimen: Abdominal Fluid Updated: 08/12/212208 Gram Stain --??Abnormal?? Cytocentrifuge Gram Stain performed Neutrophils seen Many Gram Positive Cocci seen Results called to and read back by Dilip rojas ??08/12/21 22:08:54 WS ??Abnormal?? Tissue culture [[id number]] (Abnormal) Collected: 08/12/211948 Lab Status: Preliminary result [...] AM EDT General Surgery Interval H&P HPI: Jaahira Montgomery is a 61 y.o. ??with tobacco [...] MAGNESIUM 0.81 0.79 PHOS 3.0 2.6 ASSESSMENT/PLAN: Jaharia Montgomery is a 61 y.o. admitted for [...] 27.9) performed by Miryam Wiley MD at [facility] MAIN OR ??? PRO COLONOSCOPY, DIAGNOSTIC N/A 08/18/2019 COLONOSCOPY, DIAGNOSTIC performed by Emigdio Lanier MD at [facility] ENDOSCOPY ??? PRO CYSTOSCOPY, INSERT URETERAL STENT Right 09/14/2019 CYSTO, STENT PLACEMENT INTRAOP, TEMPORARY (WRVU 2.82) performed by Werner Fournier MD at [facility] OR ??? PRO EXPLORATORY OF ABDOMEN N/A 04/25/2020 @EXPLORATORY LAPAROTOMY, WITH/WITHOUT BIOPSY(S) (WRVU 12.54) performed by Liberty Swann MD at [facility] OR ??? PRO IMPLANT MESH HERNIA REPAIR/DEBRIDEMENT CLOSURE N/A 2021 IMPLANT MESH FOR INCISIONAL OR VENTRAL HERNIA REPAIR (WRVU 4.88) performed by Negro Watters MD at [facility] OR ??? PRO MOBILIZE SPLENIC FLEX N/A 09/14/2019 @MOBILIZATION OF SPLENIC FLEXURE (WRVU 2.23) performed by Miryam Wiley MD at [facility] OR ??? PRO OMENTAL FLAP, INTRA-ABDOMINAL 09/14/2019 @OMENTAL FLAP, INTRA-ABDOMINAL (WRVU 6.54) performed by Miryam Wiley MD at [facility] MAIN OR ??? PRO REPAIR RECURR INCIS HERNIA, DEONTE N/A 04/25/2020 HERNIA REPAIR, VENTRAL OR INCISIONAL, RECURRENT, INCARCERATED (WRVU 15.53) performed by Liberty Swann MD at [facility] MAIN OR ??? PRO REPAIR RECURR INCIS HERNIA, DEONTE Left 04/25/2021 HERNIA REPAIR, VENTRAL OR INCISIONAL, RECURRENT, INCARCERATED (WRVU 15.53) performed by Loco White MD at [facility] MAIN OR ??? PRO REPAIR RECURR INCIS HERNIA, DEONTE N/A 2021 HERNIA REPAIR, VENTRAL OR INCISIONAL, RECURRENT, INCARCERATED (WRVU 15.53) performed by Negro Watters MD at [facility] MAIN OR ??? PRO SIGMOIDOSCOPY, DIAGNOSTIC N/A 09/14/2019 SIGMOIDOSCOPY, FLEXIBLE W/WO SPECIMEN BY BRUSHING OR WASHING (WRVU 0.84) performed by Miryam Wiley MD at [facility] MAIN OR ??? TUBAL LIGATION MEDICATIONS: Medication [...] Tamayo MD 08/12/2021 General Surgery consult pager #[phone] I saw and evaluated the patient with [...] (WITH DIFF) REQUEST FOR BLOOD GAS DRAW ([facility]) BASIC METABOLIC PANEL (NON-FASTING) BLOOD GAS 2 [...] with the patient. Viviana Camacho MD 08/12/21 1459 Tu Banegas APRN - 08/12/2021 1:44 PM [...] left unit via wheelchair accompanied by the FAMILY SERVICE ASSISTANT, along with personal belongings. Care Management Discharge [...] information for follow-up [facility], [place] [address] Transportation: family or friend will provide Functional [...] planKatherin Santos RN (Jonas) RN/CM - Cellphone: [phone] Pager: [phone] Covering Service RN/CM Plan of Care - [...] GEE drain care. Patient stated that her eidury-jm-btu will do it when she gets home. Yyxstn-xf-auq has done it before. 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 Active bowel sounds, loose/creamy stool. Refused Miralax. [...] Pt NPO for OR debridement / closure. [facility] 1535 - Pt down to OR. [...] Swann MD - 08/19/2021 5:19 PM EDT [facility] Operative Note Patient Name: Jahaira Montgomery : [id number] MR#: [id number] Case Date: 08/19/2021 Surgeon: Surgeon(s) and Role: [...] Merle Santos RN (Jonas) RN/CM - Cellphone: [phone] Pager: [phone] Covering Service RN/CM Plan of Care - Pablo Cancino RN - 08/18/2021 5:16 PM EDT OUTCOME EVALUATION NOTE: ?? OUTCOME SUMMARY: ?? Pt A&Ox4. Vanco troph critical this AM-MD and pharmacy notified-vanco held per pharmacy instructions and MD aware. OOB 1 assist w/walker. Walked for 1 lap in the hallway today-tolerated well. Washed up and linens changed today. Pain in L.abdomen 3-710-tolerable per pt w/PRN dilaudid per MAY. Wound [...] OUTCOME EVALUATION:? Consult Note - Kaye Peña [facility] - 08/18/2021 9:47 AM EDT Clinical Pharmacist Note-Vanc Jahaira Montgomery [id number] 1960 Jahaira Montgomery is a 61 y.o. [...] have. Alternately, during off-hours you may call [phone] to contact a pharmacist. Kaye Peña RPH Pager [phone] Plan of Care - Clarissa Hay RN [...] [place] change in ORand returned around 1353-c/o /10 pain but stated it was improving and [...] Aly MD - 08/17/2021 12:09 PM EDT [facility] Operative Note Patient Name: Jahaira Montgomery : [id number] MR#: [id number] Case Date: 08/17/2021 Surgeon: Surgeon(s) and Role: [...] Services: Wound care, Registered Nurse Agency Referrals: [facility] from [facility] for RN, OT and KCI for [...] below findings per operative note: Findings: - [id number] abscess of abdominal wall over mesh. - [...] One white sponge and one black sponge placed.??[id number] wound.?? At bedside interview, Jahaira reports that [...] Social History: She lives with brother and ykcuzt-wa-oho in [facility]. They own several cats and dogs. [...] Bhatt DO ID Fellow Red Team Pager: [phone] Infectious Diseases Attending I saw the patient with the infectious diseases fellow. I have made some modifications and agree withthe presentation of data and the assessment and plan as outlined above. The patient appears to understand the plan and also the challenges we face with sterilizing necessary mesh. Viviana Topete MD Professor, Department of Medicine Page [phone] minutes of this 55 minute visit were spent on the floor/unit in counseling or coordination of care with the patient, regarding treatment of infection as detailed in note above. Consult Note - Alberto Murrieta, [facility] - 08/16/2021 7:06 AM EDT Clinical Pharmacist Note-Vanc Jahaira Montgomery [id number] 1960 Jahaira Montgomery is a 61 y.o. [...] have. Alternately, during off-hours you may call [phone] to contact a pharmacist. ALBERTO MURRIETA [facility] Pager [phone] Plan of Care - Pablo Cancino RN - 08/15/2021 7:01 PM EDT OUTCOME EVALUATION NOTE: OUTCOME SUMMARY: Pt A&Ox4. OOB 1-2 assist w/walker. Pt OOB to nurse's station around 1430. Pt felt dizzy/ like the room was spinning and assisted to wheelchair. Pt BP in wheelchair 129/80 and assisted back to bed. Pt dizziness resolved. Pain throughout the day 3-10 in LUQ of abdomen-pt tends to fall [...] Operative Note Patient Name: Jahaira Montgomery : [id number] MR#: [id number] Case Date: 08/15/2021 Surgeon: Surgeon(s) and Role: [...] from the original note were not included. [facility] Operative Note Patient Name: Jahaira Montgomery : [id number] MR#: [id number] Case Date: 08/15/2021 Surgeon: Surgeon(s) and Role: [...] white sponge and one black sponge placed. [id number] wound. Anesthesia: General Estimated Blood Loss: 20 [...] appt to remove shelley and came back [facility] yesterday with abdominal pain d/t surgical wound infection. Pt is now s/p I&D in OR and wound vac placement. To OR tomorrow for wound vac change. Source of Information: Team, bedside nurse, medical record, and Patient Introduced self/reviewed role; services accepted. Reason for Hospitalization: Wound infection after surgery Last COVID test: Lab Results Component Value Date COVID19 Not Detected 04/27/2021 [id number] Not Detected 08/12/2021 Past medical History: Past [...] sibling would be surrogate decision maker per [place] surrogate decision making law. (Only good for 180 days) Any patient receiving care at [facility] must abide by [place] law. The hierarchy for surrogate decision making [...] (i) The agent with financial power of digester operator or a conservator appointed in accordance [...] Current DME: none Home Address confirmed as: [address] [facility] [address] Social & Family Supports: Extended Emergency Contact [...] Insurance: N/A Prescription Coverage: Yes Preferred Pharmacy: [facility] [address] [place], [place] - [address] [place] [address] [address] [facility] [address] [place], [place] - [address] [facility] [address] [facility] [address] [facility] [address] [place] Status: Patient is a : No Primary Care Provider: Ally Ortiz, FLY SETTER [phone] Patient/Caregiver Goals of Treatment: feel better Potential Needs for Transition of Care: home health care Agency Referrals: I have met with the patient to: ?? discuss discharge planning needs. ?? provide the [facility], Office of Care Management letter from the [employer] pertaining to rehab referrals. ?? provide a letter describing our affiliations within the [facility] and educate about their right to choose where referrals are sent. ?? provide a list of Home Health Agencies / Durable Medical Equipment vendors which serve their preferred geographic area. ?? provided patient with [facility] Star Quality Rating handout. They have requested referrals to: [facility] [address] [place] [address] PHONE: [phone] FAX: [phone] Name: ALFREDOFor wound vac Tel.#:[phone] ext [phone] fax#: Equipment ordered:wound vac Note routed to a Welfare Visitor who will communicate referrals to facilities and [...] Case Management Consult Note - Manuel King [facility] - 08/13/2021 12:00 PM EDT TelePharmacy Home [...] be reconciled bythe provider. Please contact the [facility] Medication Reconciliation Pharmacist at for any questions. Manuel King RPH Op Note - Joshua Che MD - 08/12/2021 6:51 PM EDT [facility] Operative Note Patient Name: Jahaira Montgomery : [id number] MR#: [id number] Case Date: 08/12/2021 Surgeon: Surgeon(s) and Role: * Joshua Che MD - Primary * Charly Agrawal MD - Resident Preoperative diagnosis: wound infection Postoperative diagnosis: wound infection Procedure(s) (LRB): I & D ABSCESS, SIMPLE OR SINGLE, TRUNK (WRVU 1.22) (N/A) Findings: - [id number] abscess of abdominal wall over mesh. - [...] 09/30/2021 Office Visit General Surgery Paloma Mota, FLY SETTER [facility] [place], [place] [address] (Wo rk) 09/30/2021 Office Visit Infectious Diseases Werner Harrell MD [facility] INFECTIOUS [place] [address] [place], [place] [address] (Wo rk) Scheduled Referrals Name Type [...] Signature POC Glucose 105 65 - 199 [facility] mg/dL [facility] LABOR[facility]ORY Comment: Supplemental ranges: <140 mg/dL before meals <180 mg/dL all other times of the day Specimen Anatomical Collection Method Collection Time Receive d Time (Source) Location / / Volume Laterality Blood 08/22/2021 7:45 AM 06/09/202 2 7:45 EDT AM EDT Ai Arriaza MD POINT OF CARE TEST ORDERABLE S Performing Organization Address City/State/ZIP Code Phon e Number [address] POCT Glucose (08/22/2021 3:38 AM EDT) athologist Signature POC Glucose 96 65 - 199 [place] mg/dL [facility] Comment: Supplemental ranges: <140 mg/dL before meals <180 mg/dL all other times of the day Specimen Anatomical Collection Method Collection Time Receive d Time (Source) Location / / Volume Laterality Blood 08/22/2021 3:38 AM 2 3:38 EDT AM EDT Ai Arriaza MD POINT OF CARE TEST ORDERABLE S Performing Organization Address City/[facility]/[place] [address] POCT Glucose (08/22/2021 2:04 AM EDT) athologist Signature POC Glucose 106 65 - 199 [place] mg/dL [facility] Comment: Supplemental ranges: <140 mg/dL before meals <180 mg/dL all other times of the day Specimen Anatomical Collection Method Collection Time Receive d Time (Source) Location / / Volume Laterality Blood 08/22/2021 2:04 AM 2 2:04 EDT AM EDT Ai Arriaza MD POINT OF CARE TEST ORDERABLE S Performing Organization Address City/State/ZIP Code Phon e Number [place] [id number] POCT Glucose (08/21/2021 10:19 PM EDT) athologist Signature POC Glucose 106 65 - 199 [facility] [place] mg/dL [facility]ORY Comment: Supplemental ranges: <140 mg/dL before meals <180 mg/dL all other times of the day Specimen Anatomical Collection Method Collection Time Receive d Time (Source) Location / / Volume Laterality Blood 08/21/2021 10:19 08/21/2021 PM EDT 10:19 PM EDT Ai Arriaza MD POINT OF CARE TEST ORDERABLE S Performing Organization Address City/State/[place] [address] POCT Glucose (08/21/2021 3:38 PM EDT) athologist Signature POC Glucose 97 65 - 199 [place] mg/dL [facility] Comment: Supplemental ranges: <140 mg/dL before meals <180 mg/dL all other times of the day Specimen Anatomical Collection Method Collection Time Receive d Time (Source) Location / / Volume Laterality Blood 08/21/2021 3:38 PM 3:38 EDT PM EDT Ai Arriaza MD POINT OF CARE TEST ORDERABLE S Performing Organization Address City/State/[place] [address] POCT Glucose (08/21/2021 11:22 AM EDT) athologist Signature POC Glucose 144 65 - 199 [place] mg/dL [facility] Comment: Supplemental ranges: <140 mg/dL before meals <180 mg/dL all other times of the day Specimen Anatomical Collection Method Collection Time Receive d Time (Source) Location / / Volume Laterality Blood 08/21/2021 11:22 08/21/2021 AM EDT 11:22 AM EDT Loco White MD POINT OF CARE TEST ORDERABLE S Performing Organization Address City/State/[place] [address] POCT Glucose (08/21/2021 7:44 AM EDT) athologist Signature POC Glucose 105 65 - 199 [place] mg/dL [facility] Comment: Supplemental ranges: <140 mg/dL before meals <180 mg/dL all other times of the day Specimen Anatomical Collection Method Collection Time Receive d Time (Source) Location / / Volume Laterality Blood 08/21/2021 7:44 AM 7:44 EDT AM EDT Loco White MD POINT OF CARE TEST ORDERABLE S Performing Organization Address City/State/[place] [address] POCT Glucose (08/21/2021 4:08 AM EDT) athologist Signature POC Glucose 109 65 - 199 [place] mg/dL [facility] Comment: Supplemental ranges: <140 mg/dL before meals <180 mg/dL all other times of the day Specimen Anatomical Collection Method Collection Time Receive d Time (Source) Location / / Volume Laterality Blood 08/21/2021 4:08 AM 4:08 EDT AM EDT Loco White MD POINT OF CARE TEST ORDERABLE S Performing Organization Address City/[facility]/ZIP Code Phon e Number [address] POCT Glucose (08/20/2021 11:31 PM EDT) athologist Signature POC Glucose 113 65 - 199 [place] mg/dL [facility] Comment: Supplemental ranges: <140 mg/dL before meals <180 mg/dL all other times of the day Specimen Anatomical Collection Method Collection Time Receive d Time (Source) Location / / Volume Laterality Blood 08/20/2021 11:31 08/20/2021 PM EDT 11:31 PM EDT Loco White MD POINT OF CARE TEST ORDERABLE S Performing Organization Address City/[facility]/[place] [address] POCT Glucose (08/20/2021 8:13 PM EDT) athologist Signature POC Glucose 118 65 - 199 [place] mg/dL [facility] Comment: Supplemental ranges: <140 mg/dL before meals <180 mg/dL all other times of the day Specimen Anatomical Collection Method Collection Time Receive d Time (Source) Location / / Volume Laterality Blood 08/20/2021 8:13 PM 8:13 EDT PM EDT Loco White MD POINT OF CARE TEST ORDERABLE S Performing Organization Address City/State/[place] [address] POCT Glucose (08/20/2021 3:30 PM EDT) athologist Signature POC Glucose 118 65 - 199 [facility] [place] mg/dL [facility] Comment: Supplemental ranges: <140 mg/dL before meals <180 mg/dL all other times of the day Specimen Anatomical Collection Method Collection Time Receive d Time (Source) Location / / Volume Laterality Blood 08/20/2021 3:30 PM 3:30 EDT PM EDT Loco White MD POINT OF CARE TEST ORDERABLE S Performing Organization Address City/State/ZIP Code Phon e Number [address] POCT Glucose (08/20/2021 11:09 AM EDT) athologist Signature POC Glucose 143 65 - 199 [facility] Comment: Supplemental ranges: <140 mg/dL before meals <180 mg/dL all other times of the day Specimen Anatomical Collection Method Collection Time Receive d Time (Source) Location / / Volume Laterality Blood 08/20/2021 11:09 08/20/2021 AM EDT 11:09 AM EDT Loco White MD POINT OF CARE TEST ORDERABLE S Performing Organization Address City/State/[place] [address] Vancomycin, trough (08/20/2021 10:31 AM EDT) athologist Signature Vanc Trough 19.3 mg/L [facility] Comment: Therapeutic range for complicated [...] Organization Address City/State/[place] [address] POCT Glucose (08/20/2021 7:27 AM EDT) athologist Signature POC Glucose 113 65 - 199 [place] mg/dL [facility] Comment: Supplemental ranges: <140 mg/dL before meals <180 mg/dL all other times of the day Specimen Anatomical Collection Method Collection Time Receive d Time (Source) Location / / Volume Laterality Blood 08/20/2021 7:27 AM 2 7:27 EDT AM EDT Loco White MD POINT OF CARE TEST ORDERABLE S Performing Organization Address City/State/[place] [address] POCT Glucose (08/20/2021 5:14 AM EDT) athologist Signature POC Glucose 128 65 - 199 [place] mg/dL [facility] Comment: Supplemental ranges: <140 mg/dL before meals <180 mg/dL all other times of the day Specimen Anatomical Collection Method Collection Time Receive d Time (Source) Location / / Volume Laterality Blood 08/20/2021 5:14 AM 2 5:14 EDT AM EDT Loco White MD POINT OF CARE TEST ORDERABLE S Performing Organization Address City/State/ZIP Code Phon e Number [address] POCT Glucose (08/19/2021 11:34 PM EDT) athologist Signature POC Glucose 174 65 - 199 [place] mg/dL [facility] Comment: Supplemental ranges: <140 mg/dL before meals <180 mg/dL all other times of the day Specimen Anatomical Collection Method Collection Time Receive d Time (Source) Location / / Volume Laterality Blood 08/19/2021 11:34 08/19/2021 PM EDT 11:34 PM EDT Loco White MD POINT OF CARE TEST ORDERABLE S Performing Organization Address City/State/[place] [address] POCT Glucose (08/19/2021 8:26 PM EDT) athologist Signature POC Glucose 153 65 - 199 [place] mg/dL [facility] Comment: Supplemental ranges: <140 mg/dL before meals <180 mg/dL all other times of the day Specimen Anatomical Collection Method Collection Time Receive d Time (Source) Location / / Volume Laterality Blood 08/19/2021 8:26 PM 2 8:26 EDT PM EDT Loco White MD POINT OF CARE TEST ORDERABLE S Performing Organization Address City/State/[place] [address] POCT Glucose (08/19/2021 6:53 PM EDT) athologist Signature POC Glucose 150 65 - 199 [place] mg/dL [facility] Comment: Supplemental ranges: <140 mg/dL before meals <180 mg/dL all other times of the day Specimen Anatomical Collection Method Collection Time Receive d Time (Source) Location / / Volume Laterality Blood 08/19/2021 6:53 PM 2 6:53 EDT PM EDT Loco White MD POINT OF CARE TEST ORDERABLE S Performing Organization Address City/State/[place] [address] POCT Glucose (08/19/2021 12:02 PM EDT) athologist Signature POC Glucose 106 65 - 199 [place] mg/dL [facility] Comment: Supplemental ranges: <140 mg/dL before meals <180 mg/dL all other times of the day Specimen Anatomical Collection Method Collection Time Receive d Time (Source) Location / / Volume Laterality Blood 08/19/2021 12:02 08/19/2021 PM EDT 12:02 PM EDT Loco White MD POINT OF CARE TEST ORDERABLE S Performing Organization Address City/[facility]/[place] [address] POCT Glucose (08/19/2021 7:57 AM EDT) P athologist Signature POC Glucose 105 65 - 199 [facility] mg/dL [facility] Comment: Supplemental ranges: <140 mg/dL before meals <180 mg/dL all other times of the day Specimen Anatomical Collection Method Collection Time Receive d Time (Source) Location / / Volume Laterality Blood 08/19/2021 7:57 AM 2 7:57 EDT AM EDT Loco White MD POINT OF CARE TEST ORDERABLE S Performing Organization Address City/[facility]/[place] [address] Scan, Peripheral Blood (08/19/2021 5:50 AM EDT) [facility] [employer] Method Time Signature Plat Estimate Increased [facility] RBC Morphology Normal [facility] Platelet Clumps Present [facility] Specimen Anatomical Collection Method Collection Time Receive d Time (Source) Location / / Volume Laterality Blood 08/19/2021 5:50 AM 2 6:07 EDT AM EDT Resulting Agency Comment Spec In Lab Lisandro Treviño MD HEMATOLOGY ORDERABLES Performing Organization Address City/[facility]/[place] [address] (ABNORMAL) Differential, Automated (08/19/2021 5:50 AM EDT) [facility] [employer] Method Time Signature Neutrophils % 39.5 % [facility] Neutr Abs (ANC) 4.74 1.70 - [facility] 6.10 [place] x10(3)/[facility] LABORATORY Lymphocytes % 30.7 % [facility] Lymphocytes Abs 3.7 (H) 0.9 - 3.2 [facility] x10(3)/[facility] LABORATORY Monocytes % 7.6 % [facility] Monocyte Abs 0.9 0.3 - 0.9 [facility] x10(3)/[facility] LABORATORY Eosinophils % 20.8 % [facility] Eosinophils Abs 2.5 (H) 0.0 - 0.4 [facility] x10(3)/[facility] LABORATORY Basophils % 0.7 % [facility] Basophils Abs 0.1 0.0 - 0.1 [facility] x10(3)/[facility] LABORATORY Immature Gran % 0.70 % [facility] Comment: Immature granulocytes(IG's)percentage an d absolute count will include metamyelocytes, myelocytes, and promyelo cytes. Blood smears from CBCs yielding IG's will be scanned manually for concor dance. If this scan disagrees with the automated IG or if promyelocytes are not ed, a manual differential will be performed. [place] Gran Abs 0.09 (H) 0.00 - 0.04 x10(3)/[facility] LABORATORY Specimen Anatomical Collection Method Collection Time Receive d Time (Source) Location / / Volume Laterality Blood 08/19/2021 5:50 AM 6:07 EDT AM EDT Resulting Agency Comment Spec In Lab Lisandro Treviño MD HEMATOLOGY ORDERABLES Performing Organization Address City/State/[place] [address] (ABNORMAL) Hemogram (08/19/2021 5:50 AM EDT) Analysis Performed At Patho logist Time Signature WBC 12.0 (H) 4.0 - 9.5 [facility] x10(3)/[facility] LABORATORY RBC 4.40 4.00 - [facility] 5.21 [place] x10(6)/[facility] LABORATORY Hemoglobin 12.9 11.7 - [facility] g/dL [facility] LABORATORY Hematocrit 40.0 35.7 - [facility] 45.8 % [facility] LABORATORY MCV 90.9 82.6 - [facility] 94.4 [facility] LABORATORY MCH 29.3 27.1 - [place] 32.0 pg [facility] LABORATORY MCHC 32.3 31.7 - [place] 35.0 g/dL [facility] LABORATORY Platelets 419 (H) 145 - 357 [facility] x10(3)/[facility] LABORATORY RDWSD 42.9 37.0 - [place] 46.0 [facility] LABORATORY RDWCV 13.1 11.5 - [place] 14.1 % [facility] LABORATORY MPV 9.1 7.6 - 12.9 [place] [facility] LABORATORY nRBC % Auto 0.0 % [facility] nRBC Abs Auto 0.000 0.000 - [place] 0.000 [place] x10(3)/[facility] LABORATORY Specimen Anatomical Collection Method Collection Time Receive d Time (Source) Location / / Volume Laterality Blood 08/19/2021 5:50 AM 2 6:07 EDT AM EDT Resulting Agency Comment Spec In Lab Lisandro Treviño MD HEMATOLOGY ORDERABLES Performing Organization Address City/State/ZIP Code Phon e Number [address] (ABNORMAL) Phosphorus (08/19/2021 5:50 AM EDT) P athologist Signature Phosphorus 5.2 (H) 2.5 - 4.5 [place] mg/dL [facility] LABORATORY Specimen Anatomical Collection Method Collection Time Receive d Time (Source) Location / / Volume Laterality Blood 08/19/2021 5:50 AM 2 6:07 EDT AM EDT Resulting Agency Comment Spec In Lab Loco White MD CHEMISTRY ORDERABLES Performing Organization Address City/State/ZIP Code Phon e Number [address] Magnesium (08/19/2021 5:50 AM EDT) P athologist Signature Magnesium 0.77 0.69 - 1.07 [facility] mmol/L [facility] LABORATORY Specimen Anatomical Collection Method Collection Time Receive d Time (Source) Location / / Volume Laterality Blood 08/19/2021 5:50 AM 2 6:07 EDT AM EDT Resulting Agency Comment Spec In Lab Loco White MD CHEMISTRY ORDERABLES Performing Organization Address City/State/[place] [address] (ABNORMAL) Basic Metabolic Panel (non-fasting) (08/19/2021 5:50 AM EDT) athologist Signature Glucose Lvl 115 65 - 199 [facility] mg/dL [facility] LABORATORY Comment: Diabetes: >=200 mg/dL plus symp toms BUN 20 (H) 8 - 18 mg/dL [facility] LABORATORY Creatinine 0.78 0.70 - 1.20 mg/dL [facility] LABORATORY Sodium 136 135 - 145 mmol/L [facility] LABORATORY Potassium 4.2 3.5 - 5.0 mmol/L [facility] LABORATORY Comment: Please note: ??Patients with WBC >100,00 0 may have falsely elevated Potassium levels. ??For accurate Potassium quantif ication in these patients send serum separator tube (gold top) for subsequent determinations. ??Contact the Clinical Chemistry Laboratory if there are any qu estions. Chloride 100 98 - 107 mmol/L [facility] CO2 22 22 - 31 mmol/L [facility] Anion Gap 14 5 - 15 mmol/L [facility] LABORATORY Calcium 10.1 8.5 - 10.5 mg/dL [facility] LABORATORY Estimated GFR 83 >=60 mL/min/1.73 m?? [facility] Comment: This patient? s estimated [...] point between stages may be based on aaron perez assessment of muscle mass and symptoms in addition to eGFR. Specimen Anatomical Collection Method Collection Time Receive d Time (Source) Location / / Volume Laterality Blood 08/19/2021 5:50 AM 2 6:07 EDT AM EDT Resulting Agency Comment Spec In Lab Loco White MD CHEMISTRY ORDERABLES Performing Organization Address City/[facility]/[place] [address] (ABNORMAL) CRP, acute inflammation (08/19/2021 5:50 AM EDT) athologist Signature CRP 40.2 (H) <=4.9 mg/L [facility] Comment: result rechecked-KS Specimen Anatomical Collection Method Collection Time Receive d Time (Source) Location / / Volume Laterality Blood 08/19/2021 5:50 AM 2 6:07 EDT AM EDT Resulting Agency Comment Spec In Lab Loco White MD CHEMISTRY ORDERABLES Performing Organization Address City/[facility]/[place] [address] POCT Glucose (08/19/2021 4:39 AM EDT) athologist Signature POC Glucose 119 65 - 199 [facility] mg/dL [facility] LABORATORY Comment: Supplemental ranges: <140 mg/dL before meals <180 mg/dL all other times of the day Specimen Anatomical Collection Method Collection Time Receive d Time (Source) Location / / Volume Laterality Blood 08/19/2021 4:39 AM 2 4:39 EDT AM EDT Loco White MD POINT OF CARE TEST ORDERABLE S Performing Organization Address City/[facility]/[place] [address] POCT Glucose (08/19/2021 12:03 AM EDT) athologist Signature POC Glucose 122 65 - 199 [facility] mg/dL [facility] LABORATORY Comment: Supplemental ranges: <140 mg/dL before meals <180 mg/dL all other times of the day Specimen Anatomical Collection Method Collection Time Receive d Time (Source) Location / / Volume Laterality Blood 08/19/2021 12:03 08/19/2021 AM EDT 12:03 AM EDT Loco White MD POINT OF CARE TEST ORDERABLE S Performing Organization Address City/State/[place] [address] POCT Glucose (08/18/2021 7:54 PM EDT) athologist Signature POC Glucose 119 65 - 199 [place] mg/dL [facility] LABORATORY Comment: Supplemental ranges: <140 mg/dL before meals <180 mg/dL all other times of the day Specimen Anatomical Collection Method Collection Time Receive d Time (Source) Location / / Volume Laterality Blood 08/18/2021 7:54 PM 2 7:54 EDT PM EDT Loco White MD POINT OF CARE TEST ORDERABLE S Performing Organization Address City/State/[place] [address] POCT Glucose (08/18/2021 5:22 PM EDT) athologist Signature POC Glucose 115 65 - 199 [place] mg/dL [facility] LABORATORY Comment: Supplemental ranges: <140 mg/dL before meals <180 mg/dL all other times of the day Specimen Anatomical Collection Method Collection Time Receive d Time (Source) Location / / Volume Laterality Blood 08/18/2021 5:22 PM 2 5:22 EDT PM EDT Loco White MD POINT OF CARE TEST ORDERABLE S Performing Organization Address City/State/[place] [address] POCT Glucose (08/18/2021 12:05 PM EDT) athologist Signature POC Glucose 103 65 - 199 [place] mg/dL [facility] LAB[facility]ORY Comment: Supplemental ranges: <140 mg/dL before meals <180 mg/dL all other times of the day Specimen Anatomical Collection Method Collection Time Receive d Time (Source) Location / / Volume Laterality Blood 08/18/2021 12:05 08/18/2021 PM EDT 12:05 PM EDT Loco White MD POINT OF CARE TEST ORDERABLE S Performing Organization Address City/[facility]/[place] [address] (ABNORMAL) Vancomycin, trough (08/18/2021 8:45 AM EDT) P athologist Signature Vanc Trough 25.4 mg/L [facility] (Critical) [facility] Comment: called by ARR; [...] White MD CHEMISTRY ORDERABLES Performing Organization Address City/[facility]/[place] [address] POCT Glucose (08/18/2021 8:28 AM EDT) P athologist Signature POC Glucose 103 65 - 199 [facility] mg/dL [facility] LABORATORY Comment: Supplemental ranges: <140 mg/dL before meals <180 mg/dL all other times of the day Specimen Anatomical Collection Method Collection Time Receive d Time (Source) Location / / Volume Laterality Blood 08/18/2021 8:28 AM 2 8:28 EDT AM EDT Loco White MD POINT OF CARE TEST ORDERABLE S Performing Organization Address City/[facility]/ZIP Code Ph[place] [address] POCT Glucose (08/18/2021 4:20 AM EDT) athologist Signature POC Glucose 109 65 - 199 [place] mg/dL [facility] LABORATORY Comment: Supplemental ranges: <140 mg/dL before meals <180 mg/dL all other times of the day Specimen Anatomical Collection Method Collection Time Receive d Time (Source) Location / / Volume Laterality Blood 08/18/2021 4:20 AM 4:20 EDT AM EDT Loco White MD POINT OF CARE TEST ORDERABLE S Performing Organization Address City/State/[place] [address] POCT Glucose (08/17/2021 11:32 PM EDT) athologist Signature POC Glucose 100 65 - 199 [place] mg/dL [facility] LABORATORY Comment: Supplemental ranges: <140 mg/dL before meals <180 mg/dL all other times of the day Specimen Anatomical Collection Method Collection Time Receive d Time (Source) Location / / Volume Laterality Blood 08/17/2021 11:32 08/17/2021 PM EDT 11:32 PM EDT Loco White MD POINT OF CARE TEST ORDERABLE S Performing Organization Address City/State/[place] [address] POCT Glucose (08/17/2021 8:02 PM EDT) athologist Signature POC Glucose 118 65 - 199 [place] mg/dL [facility] LABORATORY Comment: Supplemental ranges: <140 mg/dL before meals <180 mg/dL all other times of the day Specimen Anatomical Collection Method Collection Time Receive d Time (Source) Location / / Volume Laterality Blood 08/17/2021 8:02 PM 8:02 EDT PM EDT Loco White MD POINT OF CARE TEST ORDERABLE S Performing Organization Address City/State/[place] [address] POCT Glucose (08/17/2021 4:52 PM EDT) athologist Signature POC Glucose 87 65 - 199 [place] mg/dL [facility]ORY Comment: Supplemental ranges: <140 mg/dL before meals <180 mg/dL all other times of the day Specimen Anatomical Collection Method Collection Time Receive d Time (Source) Location / / Volume Laterality Blood 08/17/2021 4:52 PM 4:52 EDT PM EDT Loco White MD POINT OF CARE TEST ORDERABLE S Performing Organization Address City/State/ZIP Code Phon e Number [address] POCT Glucose (08/17/2021 12:26 PM EDT) athologist Signature POC Glucose 103 65 - 199 [place] mg/dL [facility]ATORY Comment: Supplemental ranges: <140 mg/dL before meals <180 mg/dL all other times of the day Specimen Anatomical Collection Method Collection Time Receive d Time (Source) Location / / Volume Laterality Blood 08/17/2021 12:26 08/17/2021 PM EDT 12:26 PM EDT Loco White MD POINT OF CARE TEST ORDERABLE S Performing Organization Address City/State/ZIP Code Phon e Number [address] POCT Glucose (08/17/2021 11:20 AM EDT) athologist Signature POC Glucose 112 65 - 199 [place] mg/dL [facility] LABORATORY Comment: Supplemental ranges: <140 mg/dL before meals <180 mg/dL all other times of the day Specimen Anatomical Collection Method Collection Time Receive d Time (Source) Location / / Volume Laterality Blood 08/17/2021 11:20 08/17/2021 AM EDT 11:20 AM EDT Loco White MD POINT OF CARE TEST ORDERABLE S Performing Organization Address City/State/[place] [address] POCT Glucose (08/17/2021 7:53 AM EDT) athologist Signature POC Glucose 111 65 - 199 [place] mg/dL [facility] LABORATORY Comment: Supplemental ranges: <140 mg/dL before meals <180 mg/dL all other times of the day Specimen Anatomical Collection Method Collection Time Receive d Time (Source) Location / / Volume Laterality Blood 08/17/2021 7:53 AM 2 7:53 EDT AM EDT Loco White MD POINT OF CARE TEST ORDERABLE S Performing Organization Address City/State/[place] [address] POCT Glucose (08/17/2021 4:12 AM EDT) athologist Signature POC Glucose 121 65 - 199 [place] mg/dL [facility] LABORATORY Comment: Supplemental ranges: <140 mg/dL before meals <180 mg/dL all other times of the day Specimen Anatomical Collection Method Collection Time Receive d Time (Source) Location / / Volume Laterality Blood 08/17/2021 4:12 AM 2 4:12 EDT AM EDT Loco White MD POINT OF CARE TEST ORDERABLE S Performing Organization Address City/State/ZIP Code Phon e Number [address] POCT Glucose (08/16/2021 11:06 PM EDT) athologist Signature POC Glucose 118 65 - 199 [place] mg/dL [facility] LABORATORY Comment: Supplemental ranges: <140 mg/dL before meals <180 mg/dL all other times of the day Specimen Anatomical Collection Method Collection Time Receive d Time (Source) Location / / Volume Laterality Blood 08/16/2021 11:06 08/16/2021 PM EDT 11:06 PM EDT Loco White MD POINT OF CARE TEST ORDERABLE S Performing Organization Address City/State/ZIP Code Phon e Number [address] POCT Glucose (08/16/2021 8:27 PM EDT) athologist Signature POC Glucose 116 65 - 199 [facility] mg/dL [facility] LABORATORY Comment: Supplemental ranges: <140 mg/dL before meals <180 mg/dL all other times of the day Specimen Anatomical Collection Method Collection Time Receive d Time (Source) Location / / Volume Laterality Blood 08/16/2021 8:27 PM 2 8:27 EDT PM EDT Loco White MD POINT OF CARE TEST ORDERABLE S Performing Organization Address City/State/[place] [address] (ABNORMAL) CRP, acute inflammation (08/16/2021 5:44 PM EDT) athologist Signature CRP 54.8 (H) <=4.9 mg/L [facility] LABORATORY Specimen Anatomical Collection Method Collection Time Receive d Time (Source) Location / / Volume Laterality Blood 08/16/2021 5:44 PM 2 5:51 EDT PM EDT Resulting Agency Comment Spec In Lab Loco hWite MD CHEMISTRY ORDERABLES Performing Organization Address City/State/[place] [address] POCT Glucose (08/16/2021 4:38 PM EDT) athologist Signature POC Glucose 135 65 - 199 [place] mg/dL [facility] LABORATORY Comment: Supplemental ranges: <140 mg/dL before meals <180 mg/dL all other times of the day Specimen Anatomical Collection Method Collection Time Receive d Time (Source) Location / / Volume Laterality Blood 08/16/2021 4:38 PM 2 4:38 EDT PM EDT Loco White MD POINT OF CARE TEST ORDERABLE S Performing Organization Address City/State/[place] [address] POCT Glucose (08/16/2021 12:22 PM EDT) athologist Signature POC Glucose 105 65 - 199 [facility] [place] mg/dL [facility] LABORATORY Comment: Supplemental ranges: <140 mg/dL before meals <180 mg/dL all other times of the day Specimen Anatomical Collection Method Collection Time Receive d Time (Source) Location / / Volume Laterality Blood 08/16/2021 12:22 08/16/2021 PM EDT 12:22 PM EDT Loco White MD POINT OF CARE TEST ORDERABLE S Performing Organization Address City/State/ZIP Code Phon e Number [address] POCT Glucose (08/16/2021 7:38 AM EDT) athologist Signature POC Glucose 113 65 - 199 [facility] mg/dL [facility]ORATORY Comment: Supplemental ranges: <140 mg/dL before meals <180 mg/dL all other times of the day Specimen Anatomical Collection Method Collection Time Receive d Time (Source) Location / / Volume Laterality Blood 08/16/2021 7:38 AM 2 7:38 EDT AM EDT Loco White MD POINT OF CARE TEST ORDERABLE S Performing Organization Address City/[facility]/ZIP Code Phon e Number [address] POCT Glucose (08/16/2021 4:26 AM EDT) athologist Signature POC Glucose 126 65 - 199 [facility] [place] mg/dL [facility]ORY Comment: Supplemental ranges: <140 mg/dL before meals <180 mg/dL all other times of the day Specimen Anatomical Collection Method Collection Time Receive d Time (Source) Location / / Volume Laterality Blood 08/16/2021 4:26 AM 2 4:26 EDT AM EDT Loco White MD POINT OF CARE TEST ORDERABLE S Performing Organization Address City/State/ZIP Code Phon e Number [address] (ABNORMAL) Vancomycin, trough (08/16/2021 4:07 AM EDT) athologist Signature Vanc Trough 20.1 mg/L [facility] (Critical) [facility] Comment: Called by: GH, Read back by: Kandi okeefe, Date/Time:08/16/21 05:00. [...] White MD CHEMISTRY ORDERABLES Performing Organization Address City/[facility]/ZIP [facility] [place] [address] POCT Glucose (08/16/2021 12:24 AM EDT) P athologist Signature POC Glucose 131 65 - 199 [facility]ORY Comment: Supplemental ranges: <140 mg/dL before meals <180 mg/dL all other times of the day Specimen Anatomical Collection Method Collection Time Receive d Time (Source) Location / / Volume Laterality Blood 08/16/2021 12:24 08/16/2021 AM EDT 12:24 AM EDT Loco White MD POINT OF CARE TEST ORDERABLE S Performing Organization Address City/[facility]/[place] [address] POCT Glucose (08/15/2021 7:15 PM EDT) P athologist Signature POC Glucose 112 65 - 199 [facility] mg/dL [facility]ORY Comment: Supplemental ranges: <140 mg/dL before meals <180 mg/dL all other times of the day Specimen Anatomical Collection Method Collection Time Receive d Time (Source) Location / / Volume Laterality Blood 08/15/2021 7:15 PM 7:15 EDT PM EDT Loco White MD POINT OF CARE TEST ORDERABLE S Performing Organization Address City/State/ZIP Code Phon e Number [address] POCT Glucose (08/15/2021 4:58 PM EDT) P athologist Signature POC Glucose 116 65 - 199 [place] mg/dL [facility]ORY Comment: Supplemental ranges: <140 mg/dL before meals <180 mg/dL all other times of the day Specimen Anatomical Collection Method Collection Time Receive d Time (Source) Location / / Volume Laterality Blood 08/15/2021 4:58 PM 4:58 EDT PM EDT Loco White MD POINT OF CARE TEST ORDERABLE S Performing Organization Address City/State/[place] [address] COVID-19 PCR (08/15/2021 3:31 PM EDT) Patholo gist Method Time Signature SARS-CoV-2 Not Detected Not Detected [facility] RNA [facility] LABORATORY Comment: This result should [...] diagnosis of COVID-19 is performed using the [employer] VERONICA S-CoV-2 Assay as authorized by the FDA Emergency Use Authorization (EUA). This EUA assay is intended for In-vitro Diagnostic (IVD) use with respiratory sp ecimens such as nasopharyngeal swabs collected from individuals during the ac [place]alt[place] phase of infection. This assay is performed based on the instructions for use provided by [employer] and additional guidance provided by CDC and FDA. Testing is performed in the [facility] Laboratory within the Department of Pathology and Laboratory Medicine at [facility], certified under the Clinical Laboratory Improvement [...] fact sheets at the following FDA website: https://www.fda.gov/medical-devices/ewgdbhuwkdj-ikgpklo-6848-dykio-38-mvuocwseu- gqi-xrbknlxxbkftks-lxpbhev-devices/qrgtb-ztpqpuqnymo-etoq SARS-Cov-2 RNA Source [employer] Swab [facility] LABORATORY Specimen (Source) Anatomical Collection Method Collection Time Re ceived Time Location / / Volume Laterality Nasopharyngeal Swab 08/15/2021 3:31 08/15 PM EDT 9:54 PM EDT Comment: Symptoms->Surveillance Resulting Agency Comment Spec In Lab Loco White MD MICROBIOLOGY - GENERAL ORDER [place] Performing Organization Address City/State/[place] [address] POCT Glucose (08/15/2021 12:42 PM EDT) athologist Signature POC Glucose 149 65 - 199 [place] mg/dL [facility] Comment: Supplemental ranges: <140 mg/dL before meals <180 mg/dL all other times of the day Specimen Anatomical Collection Method Collection Time Receive d Time (Source) Location / / Volume Laterality Blood 08/15/2021 12:42 08/15/2021 PM EDT 12:42 PM EDT Loco White MD POINT OF CARE TEST ORDERABLE S Performing Organization Address City/State/ZIP Code Phon e Number [address] POCT Glucose (08/15/2021 6:21 AM EDT) athologist Signature POC Glucose 105 65 - 199 [place] mg/dL [facility] LABORATORY Comment: Supplemental ranges: <140 mg/dL before meals <180 mg/dL all other times of the day Specimen Anatomical Collection Method Collection Time Receive d Time (Source) Location / / Volume Laterality Blood 08/15/2021 6:21 AM 6:21 EDT AM EDT Loco White MD POINT OF CARE TEST ORDERABLE S Performing Organization Address City/State/ZIP Code Phon e Number [address] Phosphorus (08/15/2021 5:40 AM EDT) athologist Signature Phosphorus 3.0 2.5 - 4.5 [place] mg/dL [facility] LABORATORY Specimen Anatomical Collection Method Collection Time Receive d Time (Source) Location / / Volume Laterality Blood Venous Draw / 08/15/2021 5:40 AM 08/16/19 5:46 Unknown EDT AM EDT Resulting Agency Comment Spec In Lab Lisandro Treviño MD CHEMISTRY ORDERABLES Performing Organization Address City/State/[place] [address] Magnesium (08/15/2021 5:40 AM EDT) athologist Signature Magnesium 0.81 0.69 - 1.07 [facility] mmol/L [facility] LABORATORY Specimen Anatomical Collection Method Collection Time Receive d Time (Source) Location / / Volume Laterality Blood Venous Draw / 08/15/2021 5:40 AM 08/16/19 5:46 Unknown EDT AM EDT Resulting Agency Comment Spec In Lab Lisandro Treviño MD CHEMISTRY ORDERABLES Performing Organization Address City/State/ZIP Code Phon e Number [address] (ABNORMAL) Basic Metabolic Panel (non-fasting) (08/15/2021 5:40 AM EDT) athologist Signature Glucose Lvl 106 65 - 199 [facility] mg/dL [facility] LABORATORY Comment: Diabetes: >=200 mg/dL plus symp toms BUN 17 8 - 18 mg/dL [facility] LABORATORY Creatinine 0.44 (L) 0.70 - 1.20 mg/dL [facility] LABORATORY Sodium 137 135 - 145 mmol/L [facility] LABORATORY Potassium 3.5 3.5 - 5.0 mmol/L [facility] LABORATORY Comment: Please note: ??Patients with WBC >100,00 0 may have falsely elevated Potassium levels. ??For accurate Potassium quantif ication in these patients send serum separator tube (gold top) for subsequent determinations. ??Contact the Clinical Chemistry Laboratory if there are any qu estions. Chloride 101 98 - 107 mmol/L [facility] LABORATORY CO2 28 22 - 31 mmol/L [facility] LABORATORY Anion Gap 8 5 - 15 mmol/L [facility] LABORATORY Calcium 8.6 8.5 - 10.5 mg/dL [facility] LABORATORY Estimated GFR 110 >=60 mL/min/1.73 m?? [facility] LABORATORY Comment: This patient? s estimated [...] White MD CHEMISTRY ORDERABLES Performing Organization Address City/[facility]/[place] [address] POCT Glucose (08/14/2021 11:26 PM EDT) athologist Signature POC Glucose 112 65 - 199 [facility] LABORATORY Comment: Supplemental ranges: <140 mg/dL before meals <180 mg/dL all other times of the day Specimen Anatomical Collection Method Collection Time Receive d Time (Source) Location / / Volume Laterality Blood 08/14/2021 11:26 08/14/2021 PM EDT 11:26 PM EDT Loco White MD POINT OF CARE TEST ORDERABLE S Performing Organization Address City/[facility]/[place] [address] POCT Glucose (08/14/2021 7:39 PM EDT) P athologist Signature POC Glucose 119 65 - 199 [facility] NAVEEN mg/dL [facility] LABORATORY Comment: Supplemental ranges: <140 mg/dL before meals <180 mg/dL all other times of the day Specimen Anatomical Collection Method Collection Time Receive d Time (Source) Location / / Volume Laterality Blood 08/14/2021 7:39 PM 7:39 EDT PM EDT Loco White MD POINT OF CARE TEST ORDERABLE S Performing Organization Address City/State/ZIP Code Phon e Number [address] POCT Glucose (08/14/2021 4:34 PM EDT) athologist Signature POC Glucose 118 65 - 199 [facility] LABORATORY Comment: Supplemental ranges: <140 mg/dL before meals <180 mg/dL all other times of the day Specimen Anatomical Collection Method Collection Time Receive d Time (Source) Location / / Volume Laterality Blood 08/14/2021 4:34 PM 4:34 EDT PM EDT Loco White MD POINT OF CARE TEST ORDERABLE S Performing Organization Address City/[facility]/ZIP Code Phon e Number [address] Vancomycin, trough (08/14/2021 12:01 PM EDT) athologist Signature Vanc Trough 10.5 mg/L [facility] LABORATORY Comment: Therapeutic range for complicated [...] Organization Address City/State/ZIP Code Phon e Number [address] POCT Glucose (08/14/2021 11:32 AM EDT) athologist Signature POC Glucose 107 65 - 199 [facility] LABORATORY Comment: Supplemental ranges: <140 mg/dL before meals <180 mg/dL all other times of the day Specimen Anatomical Collection Method Collection Time Receive d Time (Source) Location / / Volume Laterality Blood 08/14/2021 11:32 08/14/2021 AM EDT 11:32 AM EDT Loco White MD POINT OF CARE TEST ORDERABLE S Performing Organization Address City/State/ZIP Code Phon e Number [address] POCT Glucose (08/14/2021 8:03 AM EDT) P athologist Signature POC Glucose 139 65 - 199 [facility] mg/dL [facility] LABORATORY Comment: Supplemental ranges: <140 mg/dL before meals <180 mg/dL all other times of the day Specimen Anatomical Collection Method Collection Time Receive d Time (Source) Location / / Volume Laterality Blood 08/14/2021 8:03 AM 2 8:03 EDT AM EDT Loco White MD POINT OF CARE TEST ORDERABLE S Performing Organization Address City/State/[place] [address] EKG 12 Lead (08/14/2021 4:30 AM EDT) Component Value Ref Range Test Analysis Performed Pathologis t Method Time At Signature Ventricular rate 46 BPM MUSE SYSTEM Atrial Rate 46 BPM MUSE SYSTEM P-R Interval 114 ms MUSE SYSTEM QRS Duration 80 ms MUSE SYSTEM Q-T Interval 518 ms MUSE SYSTEM QTC Calculated 453 ms MUSE SYSTEM (Bezet) Calculated P [place] 49 degrees MUSE SYSTEM Calculated R [place] 28 degrees MUSE SYSTEM Calculated T [place] 72 degrees MUSE SYSTEM INTERPRETATION Marked sinus bradycardia MUSE SYSTEM Abnormal ECG When compared with ECG of 18-SEP-2019 11:29, Vent. rate has decreased BY ??24 BPM I personally reviewed the tracing and edited the fellows int erpretation Confirmed by fellow Senser, Cuauhtemoc Liu ([id number]) on 08/14/2021 2:2 6:50 PM Confirmed by MD Acosta, Olya ([id number]) on 08/14/2021 3:04:56 P M Specimen Anatomical Collection Method Collection Time Receive d Time (Source) Location / / Volume Laterality 08/14/2021 4:30 AM 2 3:04 EDT PM EDT Loco White MD ECG ORDERABLES Performing Organization Address City/State/ZIP Code Phon e Number MUSE SYSTEM (ABNORMAL) Basic Metabolic Panel (non-fasting) (08/14/2021 3:47 AM EDT) athologist Signature Glucose Lvl 155 65 - 199 [facility] mg/dL [facility] LABORATORY Comment: Diabetes: >=200 mg/dL plus symp toms BUN 25 (H) 8 - 18 mg/dL [facility] LABORATORY Creatinine 0.66 (L) 0.70 - 1.20 mg/dL [facility] LABORATORY Sodium 139 135 - 145 mmol/L [facility] LABORATORY Potassium 3.1 (L) 3.5 - 5.0 mmol/L [facility] LABORATORY Comment: Please note: ??Patients with WBC >100,00 0 may have falsely elevated Potassium levels. ??For accurate Potassium quantif ication in these patients send serum separator tube (gold top) for subsequent determinations. ??Contact the Clinical Chemistry Laboratory if there are any qu estions. Chloride 102 98 - 107 mmol/L [facility] LABORATORY CO2 Not Perf 22 - 31 [facility] LABORATORY Comment: Add-on request. Sample too old to perform test. Anion Gap Unable to Calculate 5 - 15 mmol/L [facility] LABORATORY Calcium 8.6 8.5 - 10.5 mg/dL [facility] LABORATORY Estimated GFR 97 >=60 mL/min/1.73 m?? [facility] LABORATORY Comment: This patient? s estimated [...] Moreno MD CHEMISTRY ORDERABLES Performing Organization Address City/[facility]/ZIP Code Phon e Number [address] Phosphorus (08/14/2021 3:47 AM EDT) P athologist Signature Phosphorus 2.6 2.5 - 4.5 [place] mg/dL [facility] LABORATORY Specimen Anatomical Collection Method Collection Time Receive d Time (Source) Location / / Volume Laterality Blood 08/14/2021 3:47 AM 2 4:13 EDT AM EDT Resulting Agency Comment Spec In Lab Joshua Che MD CHEMISTRY ORDERABLES Performing Organization Address City/[facility]/[place] [address] Magnesium (08/14/2021 3:47 AM EDT) P athologist Signature Magnesium 0.79 0.69 - 1.07 [facility]/L [facility] LABORATORY Specimen Anatomical Collection Method Collection Time Receive d Time (Source) Location / / Volume Laterality Blood 08/14/2021 3:47 AM 2 4:13 EDT AM EDT Resulting Agency Comment Spec In Lab Joshua Che MD CHEMISTRY ORDERABLES Performing Organization Address City/[facility]/[place] [address] POCT Glucose (08/14/2021 2:58 AM EDT) P athologist Signature POC Glucose 159 65 - 199 [facility] mg/dL [facility] LABORATORY Comment: Supplemental ranges: <140 mg/dL before meals <180 mg/dL all other times of the day Specimen Anatomical Collection Method Collection Time Receive d Time (Source) Location / / Volume Laterality Blood 08/14/2021 2:58 AM 2 2:58 EDT AM EDT Loco White MD POINT OF CARE TEST ORDERABLE S Performing Organization Address City/State/[place] [address] POCT Glucose (08/13/2021 9:40 PM EDT) athologist Signature POC Glucose 142 65 - 199 [place] mg/dL [facility] LABORATORY Comment: Supplemental ranges: <140 mg/dL before meals <180 mg/dL all other times of the day Specimen Anatomical Collection Method Collection Time Receive d Time (Source) Location / / Volume Laterality Blood 08/13/2021 9:40 PM 2 9:40 EDT PM EDT Loco White MD POINT OF CARE TEST ORDERABLE S Performing Organization Address City/[facility]/[place] [address] POCT Glucose (08/13/2021 4:44 PM EDT) athologist Signature POC Glucose 136 65 - 199 [place] mg/dL [facility] LABORATORY Comment: Supplemental ranges: <140 mg/dL before meals <180 mg/dL all other times of the day Specimen Anatomical Collection Method Collection Time Receive d Time (Source) Location / / Volume Laterality Blood 08/13/2021 4:44 PM 2 4:44 EDT PM EDT Loco White MD POINT OF CARE TEST ORDERABLE S Performing Organization Address City/State/[place] [address] (ABNORMAL) POCT Glucose (08/13/2021 1:54 PM EDT) athologist Signature POC Glucose 223 (H) 65 - 199 [place] mg/dL [facility] LABORATORY Comment: Supplemental ranges: <140 mg/dL before meals <180 mg/dL all other times of the day Specimen Anatomical Collection Method Collection Time Receive d Time (Source) Location / / Volume Laterality Blood 08/13/2021 1:54 PM 2 1:54 EDT PM EDT Loco White MD POINT OF CARE TEST ORDERABLE S Performing Organization Address City/State/ZIP Code Phon e Number [place] [id number] [facility] [address] Drive (ABNORMAL) POCT Glucose (08/13/2021 11:47 AM EDT) P athologist Signature POC Glucose 246 (H) 65 - 199 [facility] mg/dL [facility] LABORATORY Comment: Supplemental ranges: <140 mg/dL before meals <180 mg/dL all other times of the day Specimen Anatomical Collection Method Collection Time Receive d Time (Source) Location / / Volume Laterality Blood 08/13/2021 11:47 08/13/2021 AM EDT 11:47 AM EDT Joshua Che MD POINT OF CARE TEST ORDERABLE S Performing Organization Address City/State/ZIP Code Phon e Number [address] (ABNORMAL) Differential, Automated (08/13/2021 5:54 AM EDT) Patholo gist Method Time Signature Neutrophils % 82.7 % [facility] LABORATORY Neutr Abs (ANC) 10.00 (H) 1.70 - [facility] 6.10 [place] x10(3)/[facility] LABORATORY Lymphocytes % 12.3 % [facility] LABORATORY Lymphocytes Abs 1.5 0.9 - 3.2 [facility] x10(3)/[facility] LABORATORY Monocytes % 4.1 % [facility] LABORATORY Monocyte Abs 0.5 0.3 - 0.9 [facility] x10(3)/[facility] LABORATORY Eosinophils % 0.2 % [facility] LABORATORY Eosinophils Abs 0.0 0.0 - 0.4 [facility] x10(3)/[facility] LABORATORY Basophils % 0.2 % [facility] LABORATORY Basophils Abs 0.0 0.0 - 0.1 [facility] x10(3)/[facility] LABORATORY Immature Gran % 0.50 % [facility] LABORATORY Comment: Immature granulocytes(IG's)percentage an d absolute count will include metamyelocytes, myelocytes, and promyelo cytes. Blood smears from CBCs yielding IG's will be scanned manually for flor holguin. If this scan disagrees with the automated IG or if promyelocytes are not ed, a manual differential will be performed. [place]ant[place] Gran Abs 0.06 (H) 0.00 - 0.04 x10(3)/[facility] LABORATORY Specimen Anatomical Collection Method Collection Time Receive d Time (Source) Location / / Volume Laterality Blood 08/13/2021 5:54 AM 6:05 EDT AM EDT Resulting Agency Comment Spec In Lab Mavis Tamayo MD HEMATOLOGY ORDERABLES Performing Organization Address City/State/[place] [address] (ABNORMAL) Hemogram (08/13/2021 5:54 AM EDT) Analysis Performed At Patho logist Time Signature WBC 12.1 (H) 4.0 - 9.5 [facility] x10(3)/[facility] LABORATORY RBC 3.92 (L) 4.00 - [facility] 5.21 [place] x10(6)/[facility] LABORATORY Hemoglobin 11.5 (L) 11.7 - [facility] 15.5 g/dL [facility] LABORATORY Hematocrit 36.2 35.7 - [facility] 45.8 % [facility] LABORATORY MCV 92.3 82.6 - [facility] 94.4 [facility] LABORATORY MCH 29.3 27.1 - [facility] NAVEEN 32.0 pg [facility] LABORATORY MCHC 31.8 31.7 - [facility] 35.0 g/dL [facility] LABORATORY Platelets 374 (H) 145 - 357 [facility] x10(3)/[facility] LABORATORY RDWSD 42.4 37.0 - [facility] NAVEEN 46.0 [facility] LABORATORY RDWCV 12.5 11.5 - [facility] NAVEEN 14.1 % [facility] LABORATORY MPV 9.2 7.6 - 12.9 [facility] LABORATORY nRBC % Auto 0.0 % [facility] LABORATORY nRBC Abs Auto 0.000 0.000 - [facility] NAVEEN 0.000 [place] x10(3)/[facility] LABORATORY Specimen Anatomical Collection Method Collection Time Receive d Time (Source) Location / / Volume Laterality Blood 08/13/2021 5:54 AM 2 6:05 EDT AM EDT Resulting Agency Comment Spec In Lab Mavis Taamyo MD HEMATOLOGY ORDERABLES Performing Organization Address City/State/ZIP Code Phon e Number [place] [id number]OS[address] Drive (ABNORMAL) Hemoglobin A1c (08/13/2021 5:54 AM EDT) Analysis Performed At Patho logist Time Signature Hemoglobin A1C 7.1 (H) 4.3 - 5.6 [facility] LABORATORY Comment: Reference Range: 4.3 [...] Mellitus, Diabetes Care 2013; 36: Suppl. 1, S67-57 Est Avg Gluc 156 mg/dL [facility] LABORATORY Comment: eAG equivalents for HbA1c percentages: HbA1c(%) ?eAG(mg/dL) 6.0 ?126 6.5 ?140 7.0 ?154 7.5 ?169 8.0 ?183 8.5 ?197 9.0 ?212 9.5 ?226 10.0 ? 240 Limitations: The eAG calculation has not been validated on women, individuals below 18 years old and above 70 years old, and individuals with hemoglobinopathies. Additional resources are available on [facility] website. Adrian DUMONT, Rufus J, Jaylene R, et al. ??Tr anslating the A1C assay into estimated average glucose values. ??Diabetes Care 2008:31(8):0744-1159. Specimen Anatomical Collection Method Collection Time Receive d Time (Source) Location / / Volume Laterality Blood 08/13/2021 5:54 AM 2 6:05 EDT AM EDT Resulting Agency Comment Spec In Lab Joshua Che MD CHEMISTRY ORDERABLES Performing Organization Address City/[facility]/ZIP Code Phon e Number [address] Phosphorus (08/13/2021 5:54 AM EDT) P athologist Signature Phosphorus 3.1 2.5 - 4.5 [facility] NAVEEN mg/dL [facility] LABORATORY Specimen Anatomical Collection Method Collection Time Receive d Time (Source) Location / / Volume Laterality Blood 08/13/2021 5:54 AM 2 6:05 EDT AM EDT Resulting Agency Comment Spec In Lab Joshua Che MD CHEMISTRY ORDERABLES Performing Organization Address City/[facility]/[place] [address] Magnesium (08/13/2021 5:54 AM EDT) P athologist Signature Magnesium 0.80 0.69 - 1.07 [place] mmol/L [facility] LABORATORY Specimen Anatomical Collection Method Collection Time Receive d Time (Source) Location / / Volume Laterality Blood 08/13/2021 5:54 AM 2 6:05 EDT AM EDT Resulting Agency Comment Spec In Lab Joshua Che MD CHEMISTRY ORDERABLES Performing Organization Address City/[facility]/[place] [address] (ABNORMAL) Basic Metabolic Panel (non-fasting) (08/13/2021 5:54 AM EDT) P athologist Signature Glucose Lvl 196 65 - 199 [facility] mg/dL [facility] LABORATORY Comment: Diabetes: >=200 mg/dL plus symp toms BUN 16 8 - 18 mg/dL [facility] LABORATORY Creatinine 0.59 (L) 0.70 - 1.20 mg/dL [facility] LABORATORY Sodium 136 135 - 145 mmol/L [facility] LABORATORY Potassium 3.5 3.5 - 5.0 mmol/L [facility] LABORATORY Comment: Please note: ??Patients with WBC >100,00 0 may have falsely elevated Potassium levels. ??For accurate Potassium quantif ication in these patients send serum separator tube (gold top) for subsequent determinations. ??Contact the Clinical Chemistry Laboratory if there are any qu estions. Chloride 99 98 - 107 mmol/L [facility] LABORATORY CO2 26 22 - 31 mmol/L [facility] LABORATORY Anion Gap 11 5 - 15 mmol/L [facility] LABORATORY Calcium 8.7 8.5 - 10.5 mg/dL [facility] LABORATORY Estimated GFR 100 >=60 mL/min/1.73 m?? [facility] LABORATORY Comment: This patient? s estimated [...] Organization Address City/State/[place] [address] (ABNORMAL) Anaerobic Culture (08/12/2021 7:49 PM EDT) [facility] Method Time Signature Anaerobic Moderate [place] Culture Finegoldshailesh NAVEENMARCUS loredoa (A) [facility] LABORATORY Organism Fineelma loredoa (A) [facility] LABORATORY Specimen Anatomical Collection Method [...] Organization Address City/State/ZIP Code Phon e Number [place] [id number]OS[address] Drive (ABNORMAL) Tissue culture (08/12/2021 7:49 PM EDT) Component Value Ref Test Analysis Performed At [facility] Range Method Time Signature Tissue Moderate [facility] Culture Coagulase [facility] species (A) LABORATORY Gram Stain Moderate Neutrophils seen [facility] Moderate Gram Positive Cocci seen [place] Results called to and read back by maritza ??08/12/21 21:42:05 [facility] () [facility] LABORAT[facility] Organism Coagulase [place] negative [place] Staphylococcus [place] species () [facility] LABORATORY Organism Gram Positive [facility] Cocci (A) [facility] LABORATORY Specimen Anatomical Collection Method [...] Comment: Gentamicin is not a ppropriate for [place]-therapy. Coagulase negative staphylococcus Levofloxacin MICROSCAN METH OD [...] - GENERAL ORDER [place] Performing Organization Address City/[facility]/[place] [address] Anaerobic Culture (08/12/2021 7:49 PM EDT) [facility] [employer] Method Time Signature Anaerobic No anaerobic [facility] Culture organisms [facility] LABORATORY Specimen (Source) Anatomical Collection Method Collection Time Re ceived Time Location / / Volume Laterality Abdominal Fluid 08/12/2021 7:49 8:55 PM EDT PM EDT Comment: Abdominal Wall Abscess Fluid Cu lture Resulting Agency Comment Spec In Lab Joshua Che MD MICROBIOLOGY - GENERAL ORDER [place] Performing Organization Address [facility] [place] [address] (ABNORMAL) Body Fluid Culture, Aerobic (08/12/2021 7:49 PM EDT) Component Value Ref Test Analysis Performed At [facility] [employer] Range Method Time Signature Body Fluid Moderate mixed Gram Positive organisms including Coagulase negative [facility] Culture Staphylococcus species [facility] Susceptibilities previously reported [facility] LABORATORY Gram Stain Cytocentrifuge Gram Stain performed [place] Neutrophils seen NAVEEN Many Gram Positive Cocci seen [place] Results called to and read back by Dilip rojas ?? 2 22:08:54 [facility] () LABORATORY Organism Coagulase negative [place] Staphylococcus [place] species (A) [facility] LABORATORY Organism Gram Positive Cocci [facility] (A) [facility] LABORATORY Specimen (Source) Anatomical Collection Method Collection Time Re ceived Time Location / / Volume Laterality Abdominal Fluid 08/12/2021 7:49 8:55 PM EDT PM EDT Comment: Abdominal Wall Abscess Fluid Cu lture Resulting Agency Comment Spec In Lab Joshua Che MD MICROBIOLOGY - GENERAL ORDER [place] Performing Organization Address City/State/Z[place] [address] COVID-19 PCR (08/12/2021 4:02 PM EDT) [facility] Method Time Signature SARS-CoV-2 Not Detected Not Detected [place] RNA PCR [facility] LABORATORY Comment: This result should [...] using the Simplexa COVID-19 Direct Assay by Hifi Engineeringnoemi zhang as authorized by the FDA issued [...] Department of Pathology and Laboratory Medicine at [facility], certified under the Clinical Laboratory Improvement Amendmen [...] clinical management guidance information are available at [facility] CDC Coronavirus Disease 2019 (COVID-19) webpage under Information fo r Healthcare Professionals (https://www.cdc.gov/coronavirus/2019-nc ov/hcp/index.html). Additional information about this and ot her EUA tests can be found in provider and patient fact sheets at the following FDA website: https://www.fda.gov/medical-devices/ztarsjcknnc-aiuavrt-7488-eydhi-76-htiovqthh- dre-clwkjvxpopxurg-czibbzu-devices/kzowx-zhmfhnvgyuc-pazp SARS-CoV-2 Source APPLIANCES SAMPLE MAKER Swab [facility] Specimen (Source) Anatomical Collection Method Collection Time Re ceived Time Location / / Volume Laterality Nasopharyngeal Swab 08/12/2021 4:02 08/12 PM EDT 4:49 PM EDT Comment: Symptoms->Surveillance Resulting Agency Comment Spec In Lab Viviana Camacho MD MICROBIOLOGY - GENERAL ORDER [place] Performing Organization Address City/State/[place] [address] Abdomen & Pelvis [...] who have questions please contact the health primary care coordinator that requested your imaging first. ? Narrative [...] ho have questions please contact the health primary care coordinator that requested your imaging first. Tu Banegas FLY SETTER IMG CT ORDERABLES (ABNORMAL) BLOOD GAS 2 VENOUS (08/12/2021 2:15 PM EDT) Analysis Performed At [facility] Time Signature pH Lan 7.43 (H) 7.32 - [facility] 7.42 [facility] pCO2 Lan 44 41 - 51 [facility] pO2 Lan 29 25 - 40 [facility] HCO3 Lan 28.2 mmol/L [facility] BE Lan 3.8 mmol/L [facility] Hgb Blood Gas 14.2 11.7 - [facility] 15.5 g/dL [facility] O2HB Lan 51.2 % [facility] COHB Lan 5.8 % [facility] Comment: Nonsmokers: 0.5-1.5% COHB Smokers: Variable, but usually less than 10% Toxic: 20-30% COHB Lethal: Greater than 60% COHB METHB Lan 0.2 <=1.5 % [facility] Na Whole Blood 136 135 - 145 mmol/L [facility] K Whole Blood 2.6 (Critical) 3.5 - 5.0 mmol/L M [facility] Comment: Noted by instrument fitter. Please note: Patients with WBC >100,000 may have falsely elevated Potassium levels. Contact the Clinical Chemistry L aboratory if there are any questions. ICa Whole Blood 1.19 1.15 - 1.33 mmol/L [facility] Comment: Note: ??Total bilirubin higher than 20 m g/dL may lead to falsely low ionized calcium. CL Whole Blood 97 (L) 98 - 107 mmol/L [facility] Gluc Whole Bld 146 65 - 199 mg/dL [facility] Comment: Diabetes: >=200 mg/dL plus symp toms Lactate WB 1.7 0.5 - 2.2 mmol/L [facility] BGas Source Venous [facility] Specimen Anatomical Collection Method Collection Time Receive d Time (Source) Location / / Volume Laterality Blood 08/12/2021 2:15 PM 2 2:15 EDT PM EDT Viviana Camacho MD CHEMISTRY ORDERABLES Performing Organization Address City/State/[place] [address] (ABNORMAL) Differential, Automated (08/12/2021 2:10 PM EDT) [facility] gist Method Time Signature Neutrophils % 66.7 % [facility] Neutr Abs (ANC) 11.06 (H) 1.70 - [facility] 6.10 [place] x10(3)/[facility] LABORATORY Lymphocytes % 18.6 % [facility] Lymphocytes Abs 3.1 0.9 - 3.2 [facility] x10(3)[facility] LABORATORY Monocytes % 7.7 % [facility] Monocyte Abs 1.3 (H) 0.3 - 0.9 [facility] x10(3)[facility] LABORATORY Eosinophils % 5.6 % [facility] Eosinophils Abs 0.9 (H) 0.0 - 0.4 [facility] x10(3)[facility] LABORATORY Basophils % 1.0 % [facility] Basophils Abs 0.2 (H) 0.0 - 0.1 [facility] x10(3)[facility] LABORATORY Immature Gran % 0.40 % [facility] Comment: Immature granulocytes(IG's)percentage an d absolute count will include metamyelocytes, myelocytes, and promyelo cytes. Blood smears from CBCs yielding IG's will be scanned manually for concor dance. If this scan disagrees with the automated IG or if promyelocytes are not ed, a manual differential will be performed. [place] Gran Abs 0.06 (H) 0.00 - 0.04 x10(3)/[facility] LABORATORY Specimen Anatomical Collection Method Collection Time Receive d Time (Source) Location / / Volume Laterality Blood 08/12/2021 2:10 PM 2:20 EDT PM EDT Resulting Agency Comment Spec In Lab Tu Banegas APRN HEMATOLOGY ORDERABLES Performing Organization Address City/State/[place] [address] (ABNORMAL) Hemogram (08/12/2021 2:10 PM EDT) Analysis Performed At Patho logist Time Signature WBC 16.6 (H) 4.0 - 9.5 [facility] x10(3)/[facility] LABORATORY RBC 4.60 4.00 - [facility] NAVEEN 5.21 [place] x10(6)/[facility] LABORATORY Hemoglobin 13.4 11.7 - [facility] 15.[facility] g/dL [facility] Hematocrit 40.7 35.7 - [facility] 45.8 % [facility] MCV 88.5 82.6 - [facility] 94.4 [facility] MCH 29.1 27.1 - [place] 32.0 pg [facility] MCHC 32.9 31.7 - [facility] 35.0 g/dL [facility] Platelets 480 (H) 145 - 357 [facility] x10(3)/[facility] LABORATORY RDWSD 41.2 37.0 - [facility] 46.0 [facility] LABORATORY RDWCV 12.6 11.5 - [facility] 14.1 % [facility]ORY MPV 9.2 7.6 - 12.9 [facility] LABORATORY nRBC % Auto 0.0 % [facility] nRBC Abs Auto 0.000 0.000 - [facility] 0.000 [place] x10(3)/[facility] LABORATORY Specimen Anatomical Collection Method Collection Time Receive d Time (Source) Location / / Volume Laterality Blood 08/12/2021 2:10 PM 2 2:20 EDT PM EDT Resulting Agency Comment Spec In Lab Tu Banegas APRN HEMATOLOGY ORDERABLES Performing Organization Address City/State/[place] [address] (ABNORMAL) Basic Metabolic Panel (non-fasting) (08/12/2021 2:10 PM EDT) athologist Signature Glucose Lvl 147 65 - 199 [facility] mg/dL [facility] Comment: Diabetes: >=200 mg/dL plus symp toms BUN 16 8 - 18 mg/dL [facility] Creatinine 0.64 (L) 0.70 - 1.20 mg/dL [facility] Sodium 135 135 - 145 mmol/L [facility] Potassium 2.7 (Critical) 3.5 - 5.0 mmol/L [facility] Comment: called by EB/read back by Lana Pantoja 5-3 0-22 @ 2578 Please note: ??Patients with WBC >100,00 0 may have falsely elevated Potassium levels. ??For accurate Potassium quantif ication in these patients send serum separator tube (gold top) for subsequent determinations. ??Contact the Clinical Chemistry Laboratory if there are any qu estions. Chloride 96 (L) 98 - 107 mmol/L [facility] CO2 27 22 - 31 mmol/L [facility] Anion Gap 12 5 - 15 mmol/L [facility] Calcium 8.7 8.5 - 10.5 mg/dL [facility] Estimated GFR 98 >=60 mL/min/1.73 m?? [facility] Comment: This patient? s estimated [...] Organization Address City/State/ZIP Code Phon e Number [place] [id number] documented in this encounter [...] arting on Thu08/12/21 at 1528, Until Kiara 08/22/21 at 1409, [...] 1,000 mg 0001 (Given - Provider: Sabrina Croona RN)0515 (Given - Provider: Sabrina Corona RN)1235 (Not Given - Provider: Kandi Grubbs RN - Reason: Patient/family refused)1800 (Not Given - Provider: Kandi Grubbs RN - Reason: Patient/family refused) 0552 (Given - Provider: Joshua Mccallum RN)1210 (Given - Provider: Evelia Durham RN)1738 (Given - Provider: Evleia Durham RN)2326 (Given - Provider: Joshua Mccallum [...] Evelia Durham, RN)2020 (Given - Provider: Joshua Mccallum, GENA) [...] 10 mg, Rectal, DAILY PRN, Starting on n 08/12/21 at 2142, Until Thu08/22/21 at 1409, [...] or Regular (not diet) soda OR If APPLIANCES SAMPLE MAKER O, give 15 gram glucose 40% oral [...] S tarting on Thu08/12/21 at 2142, Until Kiara 08/22/21 at 1409, flush, Flush pertains to [...] episode. & nbsp; For persistent hypoglycemia, con supervisor roving department longer-acting treatment for the duration of the [...] Routine documented in this encounter Care Teams Cloth Laminating Supervisor Relationship Specialty Start Date End Date Ally Ortiz APRN PCP - General Internal Medicine 04/24/[address] [place] [address] documented as of this encounter
--- OUTSIDE RECORDS SUMMARY | 2021-09-27 14:52 | XMS_ITS | Encounter Summary ---
:1960 [place] [address] Care Team Providers Name Role Phone DianaLexisAlly Mary MUNOZ Primary Care Provider Reason for Visit Auth/Cert Specialty Diagnoses / Procedures Referred By Contact Refer red To Contact Diagnoses Wound infection after surgery Procedures ER IPI Referral ID Status Reason Start Date Expiration Date Visits Requ ested Visits Authorized [id number] 1 1 Encounter Details Date Type Department Care Team Description 08/12/2021 Anesthesia Event Main Operating Room Alonso Montilla MD [facility] [place] [address] [facility] Patricia Miles MD [facility] [place] [address] [place] [address] Anesthesia Record Procedure Summary Procedure Name Responsible Anesthesia Start Anesthesia Stop Time Anesthesiologist Time I & D ABSCESS, Shola Montilla MD 08/12/21181708/12/211928 SIMPLE OR SINGLE, TRUNK (WRVU 1.22) (N/A Abdomen) Events Date Time Event Comment 08/12/2021 1746 1818 AN Verify 1817 Start 1817 An Start Data 1825 An Induction 1829 An Intubation 1831 Anesthesia Ready 1907 Extubation/LMA Out 1923 an stop data 1926 Recovery or ICU Handoff Patient care was transferred to the destination unit staff after review of the patient's medica l history, current anesthetic/surgi mary grace status and plan, according to the Provider Handoff Checklist. 1929 Stop Name Total fentaNYL 100 mcg Propofol 150 mg Rocuronium 20 mg PHENYLephrine 160 mcg Ondansetron 8 mg Dexamethasone 8 mg Succinylcholine 100 mg PHENYLephrine INF 1,960 mcg Sugammadex 800 mg Lactated Ringers 400 mL Agents Name O2 Air N2O Sevoflurane (et) Blood No blood administrations on file. Lines, Drains, and Airways Type Details Placement Removal Incision 07/23/21; 1511; midline, 07/23/21 1511 by anterior; abdomen; Nikos Avila, vertical RN Incision 04/25/20; 0602; midline; 04/25/20 0602 by [place], 08/12/21 2200 by lower quadrant; midline; GENA Morgan Jaimie L, LDA from 04/25/21; LDA not RN present upon assessment; 08/12/21; 2200 Incision 04/25/21; 0000 (unsure of 04/25/21 0000 by 08/12 2200 by placement time); midline; Good Wallace RN Kalee Miramontes, upper quadrant; LDA from RN 04/25/21; LDA not present upon assessment; 08/12/21; 2200 Lumbar/CSF Drain 07/23/21; 1652; Right; 07/23/21 1652 by 2 0 by anterior; abdomen; Nikos Avila Jalbert, Jaimie L, collapsible closed RN RN device; Dr Lisandro Treviño MD; Sterile technique; 15FR round silicone drain to grenade bulb reservoir - (right abdomen); No GEE drain present. LDA from 07/23/21, previous admission; 08/12/21; 2200 NPWT 07/23/21; 1731; midline; 07/23/21 1731 by 2200 by abdomen; LDA not present, Reinaldo Vázquez RN J albert, Jaimie L, LDA from 07/23/21. New crime prevention police officer vac placed on abdomen 08/12/21.; LDA not present upon assessment; 08/12/21; 2200 PIV 08/12/21; 1358; cephalic 08/12/21 1358 by 1632 by vein (lateral side of Violeta Kumar, Aarti Coe, arm), left; RN [id number] catheter system; 20 gauge; removed per policy/procedure, site care per policy/procedure, site symptomatic, catheter/device intact; 08/14/21; 1632 ETT Mask Ventilation: Not 08/12/21 1830 by 08/12/21 1908 by Attempted (0); ETT Type: Niles Wing MD Br own, William L, MD Cuffed, Oral; ETT Size: 7 mm; Mac Blade: 3; Notes: Asleep, Pre-O2, RSI, Cricoid Pressure, Stylette; Attempts: 1; Laryngoscopy Grade: 1; ETT Placement Verified By: Auscultation, Capnometry, Visual; Secured at Teeth: 21 cm; Inserted by: Dr. Wing Urethral Catheter 08/12/21; 1830; Physician 08/12/21 1830 by Hernán , 08/14/21 1213 by order; indwelling double GENA Hall Anissa C, RN lumen catheter; latex; 14; inserted at this facility; 1; 5; 10; other (see comments) (General Anesthesia); 08/14/21; 1213 NPWT 08/12/21; 1926; midline; 08/12/21 1926 by Hernán, 0 08/19/21 1703 by abdomen; 08/19/21; 1703 GENA Hall Sarah B, RN documented in this encounter Social History Tobacco [...] encounter OR Notes Anesthesia Postprocedure Evaluation - Niles Wing MD - 08/12/2021 7:29 PM EDT Department of Anesthesiology Post-procedure Note Patient: Jahaira Montgomery Procedure Summary Date: 08/12/21 Room / Location: [facility] OR [facility] MAIN OR Anesthesia Start: 1817 Anesthesia Stop: 1928 Procedure: I & D ABSCESS, SIMPLE OR SINGLE, TRUNK (WRVU 1.22) (N/A Abdomen) Diagnosis: (wound infection) Surgeons: Joshua Che MD Responsible Provider: Shola Montilla MD Anesthesia Type: general ASA Status: 2 All Anesthesia Providers: Anesthesiologist: Shola Montilla MD Nursing Care Attendant: Niles Wing MD Vitals Value Taken Time BP 138/58 08/12/211924 Temp Pulse 71 08/12/211927 Resp 18 08/12/211927 SpO2 100 % 08/12/211927 Pain Level Vitals shown include unvalidated device data. Patient Location: PACU/[facility] Level of Consciousness: Conscious but Sleepy Pain Management: Satisfactory Analgesia PONV: None Cardiovascular Status: At Baseline Respiratory Status: Supplemental O2 (NC or FM) Postoperative Fluid Status: Intravascular EUvolemia Possible Anesthetic Complications: NONE apparent at time of evaluation Final Primary Anesthesia Type: General (The anesthetic type performed was the same as planned.) Comments: Anesthesia Preprocedure Evaluation - Peyton Matias MD - 08/12/2021 4:19 PM EDT Pre-Anesthesia Evaluation for: Jahaira Montgomery a 61 y.o. female. Procedure(s): I & D ABSCESS, SIMPLE OR SINGLE, TRUNK (VU 1.22) Patient Active Problem List Diagnosis Date Noted [...] 27.9) performed by Miryam Wiley MD at [facility] OR ??? PRO COLONOSCOPY, DIAGNOSTIC N/A 08/18/2019 COLONOSCOPY, DIAGNOSTIC performed by Emigdio Lanier MD at [facility] ENDOSCOPY ??? PRO CYSTOSCOPY, INSERT URETERAL STENT Right 09/14/2019 CYSTO, STENT PLACEMENT INTRAOP, TEMPORARY (WRVU 2.82) performed by Werner Fournier MD at [facility] OR ??? PRO EXPLORATORY OF ABDOMEN N/A 04/25/2020 @EXPLORATORY LAPAROTOMY, WITH/WITHOUT BIOPSY(S) (WRVU 12.54) performed by Jerod Frost MD at [facility] OR ??? PRO IMPLANT MESH HERNIA REPAIR/DEBRIDEMENT CLOSURE N/A 2021 IMPLANT MESH FOR INCISIONAL OR VENTRAL HERNIA REPAIR (WRVU 4.88) performed by Negro Watters MD at [facility] OR ??? PRO MOBILIZE SPLENIC FLEX N/A 09/14/2019 @MOBILIZATION OF SPLENIC FLEXURE (WRVU 2.23) performed by Miryam Wiley MD at [facility] OR ??? PRO OMENTAL FLAP, INTRA-ABDOMINAL 09/14/2019 @OMENTAL FLAP, INTRA-ABDOMINAL (WRVU 6.54) performed by Miryam Wiley MD at [facility] OR ??? PRO REPAIR RECURR INCIS HERNIA, DEONTE N/A 04/25/2020 HERNIA REPAIR, VENTRAL OR INCISIONAL, RECURRENT, INCARCERATED (WRVU 15.53) performed by Jerod Frost MD at [facility] OR ??? PRO REPAIR RECURR INCIS HERNIA, DEONTE Left 04/25/2021 HERNIA REPAIR, VENTRAL OR INCISIONAL, RECURRENT, INCARCERATED (WRVU 15.53) performed by Loco White MD at [facility] OR ??? PRO REPAIR RECURR INCIS HERNIA, DEONTE N/A 2021 HERNIA REPAIR, VENTRAL OR INCISIONAL, RECURRENT, INCARCERATED (WRVU 15.53) performed by Negro Watters MD at [facility] MAIN OR ??? PRO SIGMOIDOSCOPY, DIAGNOSTIC N/A 09/14/2019 SIGMOIDOSCOPY, FLEXIBLE W/WO SPECIMEN BY BRUSHING OR WASHING (WRVU 0.84) performed by Miryam Wiley MD at [facility] MAIN OR ??? TUBAL LIGATION Social [...] Physical Exam: Preprocedure Vitals Current as of 08/12/21 1619 BP: Pulse: 82 Resp: 10 SpO2: 94 Temp: Height: 149.9 cm (4' 11) (08/12/21) Weight: 104.3 kg (230 lb) (08/12/21) BMI: 46.45 IBW: 39.1 kg (86 lb 3.6 oz) Last edited 08/12/21 1615 by Currently displaying vitals information from multiple entries within 90 minutes of most recent vitals. Airway Assessment: Mallampati: II TM distance: >3 FB Neck ROM: full Cardiovascular Assessment: system normal Pulmonary Assessment: pulmonary exam normal Dental Assessment: - normal exam Misc Assessment: Last Filed Perioperative Cognitive Screening None Anesthesia Plan: ASA 2 general, with a(n) intravenous induction PRELIMINARY NOTE - PER CHART REVIEW 61 y.o. 104kg female with a BMI of 46, PMH significant for current smoker (25 pack years), obesity, . Patient is presenting with recurrent ventral hernia s/p repair (07/23) now infected scheduled for I&D. Last ate at 11am. Very drowsy but arousable likely 2/2 dilaudid administration. Anesthetic History: No reported prior complications with anesthesia Airway History: Multiple GA, last GA G1V, easy mask, Lee 2. Allergies reviewed Labs significant for WBS 16.6, K 2.7, Recent Labs 08/12/21 1410 08/07/21 1446 07/23/21 0429 WBC 16.6* 13.6* 12.0* HGB 13.4 13.8 13.8 HCT 40.7 41.2 43.0 PLATELET 480* 368* 349 Recent Labs 08/12/21 1410 08/07/21 1446 07/24/21 0521 NA 135 139 134* K 2.7* 2.8* 4.3 CL 96* 97* 99 CO2 27 30 22 BUN 16 16 17 CREATININE 0.64* 0.70 0.65* Recent Labs 08/07/21 1446 07/23/21 0429 04/24/21 1750 AST 14 15 14 ALT 16 11 18 ALKPHOS 118* 99 118* BILITOT 0.3 <0.2* 0.4 No results for input(s): PT, INR, PTT in the last 168 hours. Lab Results Component Value Date ABORH O Pos 2021 Anesthetic Plan: GA w/ ETT, RSI Analgesia: tylenol, fentanyl, toradol Antiemetic: zofran, decadron Standard ASA monitoring PIV access Patricia Miles MD 08/12/2021 Region - Other Informed Consent: Anesthetic plan and risks discussed with patient. Use of blood products discussed with patient who. Plan discussed with resident and attending. Anesthesia Screening documented in this encounter Plan of Treatment Upcoming Encounters Date Type Specialty Care Team Description 09/30/2021 Office Visit General Surgery Paloma Mota, OPERATOR COMMAND SU[employer] [facility] ER GENERAL SURGERY [place], [place] [address] (Wo rk) 09/30/2021 Office Visit Infectious Diseases Werner Harrell MD [facility] ER INFECTIOUS [place], [place] [address] (Wo rk) documented as of this encounter Visit Diagnoses Not on filedocumented in this encounter Administered Medications Inactive Administered Medications - up to 3 most recent administrations Medication Order MAR Action Action Date Dose Rate Site dexamethasone (Decadron) injection Given 08/12/2021 6:32 PM EDT 8 mg Intravenous, PRN, Starting on Thu08/12/21 at 1832, Until Thu08/12/21 at 1929, Anesthesia Intra-op, Routine fentaNYL (pf) (50 mcg/mL) multi-dose Given 08/12/2021 6:20 PM ED T 100 mcg injection Intravenous, PRN, Starting on Thu08/12/21 at 1820, Until Thu08/12/21 at 1929, Anesthesia Intra-op, Routine lactated ringers infusion New Bag 08/12/2021 6:18 PM EDT Intravenous, CONTINUOUS PRN, Starting on Thu08/12/21 at 1818, Until Thu08/12/21 at 1929, Anesthesia Intra-op ondansetron (pf) (Zofran) (2 mg/mL) inje ction Given 08/12/2021 7:13 PM EDT 8 mg Intravenous, PRN, Starting on Thu08/12/21 at 1913, Until Thu08/12/21 at 192, Anesthesia Intra-op, Routine PHENYLephrine (Osbaldo-Synephrine) Rate/Dose Change 08/12/2021 6:45 40 mcg/min 30 mL/hr (80 mcg/mL) in sodium chloride PM EDT 0.9% 250 mL infusion Intravenous, CONTINUOUS PRN, Starting on Thu08/12/21 at 1835, Until Thu08/12/21 at 192, Anesthesia Intra-op, Routine New Bag 08/12/2021 6:35 PM EDT 20 mcg/min 15 mL/hr PHENYLephrine in NS (PF) (OSBALDO-SYNEPHRINE) Given 08/12/2021 6:30 PM EDT 160 mcg 0.8 mg/10 mL (80 mcg/mL) multi-dose injection Syrg Intravenous, PRN, Starting on Thu08/12/21 at 1830, Until Thu08/12/21 at 1929, Anesthesia Intra-op, Routine propofoL (Diprivan) 10 mg/mL bolus injection Given 6:28 PM EDT 150 mg (Anesthesia) Intravenous, PRN, Starting on Thu08/12/21 at 1828, Until Thu08/12/21 at 192, Anesthesia Intra-op rocuronium (Zemuron) (10 mg/mL) multi-dose Given 08/12/2021 6:32 PM EDT 20 mg injection Intravenous, PRN, Starting on Thu08/12/21 at 1832, Until Thu08/12/21 at 1929, Anesthesia Intra-op, Routine succinylcholine (Anectine;Quelicin) (20 Given 08/12/2021 6:29 PM EDT 100 mg mg/mL) injection Intravenous, PRN, Starting on Thu08/12/21 at 1829, Until Thu08/12/21 at 1929, Anesthesia Intra-op, Routine sugammadex (Bridion) 100 mg/mL injection Given 08/12/2021 7:13 PM EDT 800 mg Intravenous, PRN, Starting on Thu08/12/21 at 1913, Until Thu08/12/21 at 192, Anesthesia Intra-op, Routine documented in this encounter Care Teams Shellfish Dredge Operator Relationship Specialty Start Date End Date Ally Ortiz APRN PCP - General Internal Medicine 04/24/21 [address] [place] [address] documented as of this encounter
--- OUTSIDE RECORDS SUMMARY | 2021-09-27 14:52 | XMS_ITS | Encounter Summary ---
:1960 [place] [address] Care Team Providers Name Role Phone DianaLexisAlly Mary MUNOZ Primary Care Provider Reason for Visit Auth/Cert Specialty Diagnoses / Procedures Referred By Contact Refer red To Contact Diagnoses Wound infection after surgery Procedures ER IPI Referral ID Status Reason Start Date Expiration Date Visits Requ ested Visits Authorized [id number] 1 1 Encounter Details Date Type Department Care Team Description 08/15/2021 Anesthesia Event Main Operating Room Adonis Varner MD [facility] [place] [address] [facility] Patricia Mendiola [facility] [place] [address] [place] [address] Anesthesia Record Procedure Summary Procedure Name Responsible Anesthesia Start Anesthesia Stop Time Anesthesiologist Time MODIFIER WOUND VAC Adonis Piedra MD 08/15/21 0308 2 0351 (N/A ) Events Date Time Event Comment 08/15/2021 0244 0308 AN Verify 0308 Start 0308 An Start Data 0310 An Induction 0311 An Intubation 0312 Anesthesia Ready 0350 Extubation/LMA Out 0351 an stop data 0351 Recovery or ICU Handoff Patient care was transferred to the destination unit staff after review of the patient's medica l history, current anesthetic/surgi mary grace status and plan, according to the Provider Handoff Checklist. 0351 Stop Name Total fentaNYL 100 mcg Propofol 250 mg Lactated Ringers 300 mL Agents Name O2 Air N2O Sevoflurane (et) Blood No blood administrations on file. Lines, Drains, and Airways Type Details Placement Removal Incision 07/23/21; 1511; midline, 07/23/21 1511 by anterior; abdomen; Nikos Avila RN vertical NPWT 08/12/21; 1926; midline; 08/12/21 1926 by Hernán, 0 08/19/21 1703 by abdomen; 08/19/21; 1703 GENA Hall, Chani Ogden RN PIV 08/13/21; 0745; basilic 08/13/21 0745 by [place], 08/18/21 0740 by vein (medial side of arm), GENA Perez Joshua M, RN left; [id number] catheter system; Ultrasound Guidance; Yes - US guidance used but Image NOT saved; 22 gauge, 3/4 in length; krysten jin rn, vas; distraction, tolerated well, complained of discomfort; 0; IV painful to flush; removed per policy/procedure, site care per policy/procedure, catheter/device intact; 08/18/21; 0740 Supraglottic Mask Ventilation: Not 08/15/21 0316 by 08/15/21 0350 by Attempted (0); LMA Type: Adonis Piedra MD S untharalingam, iGel; LMA Size: 4; MD Shauna Inserted by: gabriella documented in this encounter Social History Tobacco [...] encounter OR Notes Anesthesia Postprocedure Evaluation - Shauna Whitaker MD - 08/15/2021 3:57 AM EDT Department of Anesthesiology Post-procedure Note Patient: Jahaira Montgomery Procedure Summary Date: 08/15/21 Room / Location: [address] MAIN OR Anesthesia Start: 307 Anesthesia Stop: 350 Procedures: MODIFIER WOUND VAC (N/A ) DEBRIDEMENT SKIN, SUBCU, MUSCLE, ABDOMEN (WRVU 2.7) (Midline Abdomen) Diagnosis: (Abdominal wall abscess) Surgeons: Gabriel Daniel MD Responsible Provider: Adonis Piedra MD Anesthesia Type: general ASA Status: 3 All Anesthesia Providers: Anesthesiologist: Adonis Piedra MD Resource Specialist: Shauna Whitaker MD Vitals Value Taken Time BP Temp Pulse Resp SpO2 Pain Level Patient Location: PACU/[facility] Level of Consciousness: Conscious but Sleepy Pain Management: Pain Being Addressed PONV: None Cardiovascular Status: At Baseline and Hemodynamically Stable Respiratory Status: At Baseline and Supplemental O2 (NC or FM) Postoperative Fluid Status: Intravascular EUvolemia Possible Anesthetic Complications: NONE apparent at time of evaluation Final Primary Anesthesia Type: General (The anesthetic type performed was the same as planned.) Comments: Shauna Whitaker MD Anesthesia Preprocedure Evaluation - Joan Lepe MD - 08/14/2021 2:52 PM EDT Pre-Anesthesia Evaluation for: Jahaira Montgomery a 61 y.o. female. Procedure(s): I & D ABSCESS, SIMPLE OR SINGLE, TRUNK (WRVU 1.22) Patient Active Problem List Diagnosis Date [...] 27.9) performed by Miryam Wiley MD at [facility] MAIN OR ??? PRO COLONOSCOPY, DIAGNOSTIC N/A 08/18/2019 COLONOSCOPY, DIAGNOSTIC performed by Emigdio Lanier MD at [facility] ENDOSCOPY ??? PRO CYSTOSCOPY, INSERT URETERAL STENT Right 09/14/2019 CYSTO, STENT PLACEMENT INTRAOP, TEMPORARY (WRVU 2.82) performed by Werner Fournier MD at [facility] OR ??? PRO EXPLORATORY OF ABDOMEN N/A 04/25/2020 @EXPLORATORY LAPAROTOMY, WITH/WITHOUT BIOPSY(S) (WRVU 12.54) performed by Jerod Frost MD at [facility] OR ??? PRO IMPLANT MESH HERNIA REPAIR/DEBRIDEMENT CLOSURE N/A 2021 IMPLANT MESH FOR INCISIONAL OR VENTRAL HERNIA REPAIR (WRVU 4.88) performed by Negro Watters MD at [facility] OR ??? PRO INCISION AND DRAINAGE ABSCESS SIMPLE/SINGLE N/A 08/12/2021 I & D ABSCESS, SIMPLE OR SINGLE, TRUNK (WRVU 1.22) performed by Joshua Che MD at [facility] OR ??? PRO MOBILIZE SPLENIC FLEX N/A 09/14/2019 @MOBILIZATION OF SPLENIC FLEXURE (WRVU 2.23) performed by Miryam Wiley MD at [facility] OR ??? PRO OMENTAL FLAP, INTRA-ABDOMINAL 09/14/2019 @OMENTAL FLAP, INTRA-ABDOMINAL (WRVU 6.54) performed by Miryam Wiley MD at [facility] OR ??? PRO REPAIR RECURR INCIS HERNIA, DEONTE N/A 04/25/2020 HERNIA REPAIR, VENTRAL OR INCISIONAL, RECURRENT, INCARCERATED (WRVU 15.53) performed by Jerod Frost MD at [facility] OR ??? PRO REPAIR RECURR INCIS HERNIA, DEONTE Left 04/25/2021 HERNIA REPAIR, VENTRAL OR INCISIONAL, RECURRENT, INCARCERATED (WRVU 15.53) performed by Loco White MD at [facility] MAIN OR ??? PRO REPAIR RECURR INCIS HERNIA, DEONTE N/A 2021 HERNIA REPAIR, VENTRAL OR INCISIONAL, RECURRENT, INCARCERATED (WRVU 15.53) performed by Negro Watters MD at [facility] MAIN OR ??? PRO SIGMOIDOSCOPY, DIAGNOSTIC N/A 09/14/2019 SIGMOIDOSCOPY, FLEXIBLE W/WO SPECIMEN BY BRUSHING OR WASHING (WRVU 0.84) performed by Miryam Wiley MD at [facility] MAIN OR ??? TUBAL LIGATION Social History [...] Physical Exam: Preprocedure Vitals Current as of 08/14/21 1452 BP: 156/74 Pulse: Resp: 16 SpO2: 95 Temp: 36.7 ??C (98.1 ??F) Height: 149.9 cm (4' 11) (08/12/21) Weight: 104.3 kg (230 lb) (08/12/21) BMI: 46.45 IBW: 39.1 kg (86 lb 3.6 oz) Last edited 08/14/21 1130 by AL Airway Assessment: Mallampati: II TM distance: >3 FB Neck ROM: full Cardiovascular Assessment: Rhythm: regular Rate: normal Pulmonary Assessment: unlabored breathing Dental Assessment: Misc Assessment: Last Filed Perioperative Cognitive Screening None Anesthesia Plan: ASA 3 general, with a(n) intravenous induction Attending Assessment: ?? Patient personally seen and examined. ?? Jahaira Montgomery is a 61 y.o. 104 kg (BMI 46) female presenting for I&D of abscess of abdominal wall PMHx: significant for current smoker (25 pack years), obesity, T2DM (HbA1c 7.1%), chronic knee pain,diverticulitis s/p Lucy's procedure with reversal 03/2019, incarcerated ventral hernia in 04/2020 s/p primary repair, hospitalization in 04/2021 for recurrent incarcerated ventral hernia treated non-operatively, and most recently s/p ventral hernia repair with Ovitex on-lay mesh with 2 supra-mesh drains 07/23/[address] Watters. Patient is presenting with infected abdominal wall s/p I&D. Anesthetic History: No reported prior complications with anesthesia Airway History: Multiple GA, last GA G1V, easy mask, MAC 3 PSHx: ventral hernia repairs, I&D Aside from the above HPI, pertinent negatives and positives listed below: No cardiopulmonary issues. No recent URI. Adequate functional status No GERD (asymptomatic in preop). Denies PONV Meds: reviewed Allergies No Known Allergies Patient Vitals in the past 24 hrs: 08/14/21 1130, BP:156/74, Temp:36.7 ??C (98.1 ??F), Temp src:Oral, Resp:16, SpO2:95 % 08/14/21 0805, BP:151/77, Temp:36.9 ??C (98.4 ??F), Temp src:Oral, Resp:16, SpO2:96 % Labs: Lab Results Component Value Date HGB 11.5 (L) 08/13/2021 PLATELET 374 (H) 08/13/2021 INR 1.0 2021 NA 139 08/14/2021 K 3.1 (L) 08/14/2021 CREATININE 0.66 (L) 08/14/2021 07/23/21 0429 ABORH O Pos Lab Results Component Value Date HA1C 7.1 (H) 08/13/2021 Glucose Lvl Date Value Ref Range Status 08/14/2021 155 65 - 199 mg/dL Final Comment: Diabetes: >=200 mg/dL plus symptoms NPO status adequate ?? Plan: - standard ASA monitors, PIV - GA with LMA The patient was informed of the risks, benefits and alternatives of anesthesia. These risks included, but were not limited to, post-operative nausea and/or vomiting, pain, sore throat, dental/lip injury, and other rare but serious complications such as cardiac instability/arrest, neurologic event, awareness, severe allergic reactions, position-related nerve injuries, and need blood transfusions. All questions answered. Consent was signed and placed in chart. Region - Other Informed Consent: Anesthetic plan and risks discussed with patient. Plan discussed with BULLDOZER PRESS OPERATOR and attending. Anesthesia Screening documented in this encounter Miscellaneous Notes Addendum Note - Sosa Sandoval MD - 08/15/2021 4:48 AM EDT Addendum created 08/15/21447 by Sosa Sandoval MD Order list changed, Order sets accessed documented in this encounter Plan of Treatment Upcoming Encounters Date Type Specialty Care Team Description 09/30/2021 Office Visit General Surgery Paloma Mota, MAINTENANCE MECHANIC SUPERVISOR [facility] GENERAL SURGERY [place], [place] [address] (Wo rk) 09/30/2021 Office Visit Infectious Diseases Werner Harrell MD [facility] INFECTIOUS [place], [place] [address] (Wo rk) documented as of this encounter Visit Diagnoses Not on filedocumented in this encounter Administered Medications Inactive Administered Medications - up to 3 most recent administrations Medication Order MAR Action Action Date Dose Rate Site fentaNYL (pf) (50 mcg/mL) Given 08/15/2021 3:08 AM EDT 100 mcg multi-dose injection Intravenous, PRN, Starting on Kiara 08/15/21 at 0308, Until Kiara 08/15/21 at 0351, Anesthesia Intra-op, Routine lactated ringers infusion New Bag 08/15/2021 3:08 AM EDT Intravenous, CONTINUOUS PRN, Starting on Kiara 08/15/21 at 0308, Until Kiara 08/15/21 at 0351, Anesthesia Intra-op propofoL (Diprivan) 10 mg/mL bolus injection Given 04/2021 3:10 AM EDT 250 mg (Anesthesia) Intravenous, PRN, Starting on Kiara 08/15/21 at 0310, Until Kiara 08/15/21 at 0351, Anesthesia Intra-op documented in this encounter Care Teams Professional Volleyball Player Relationship Specialty Start Date End Date Ally Ortiz APRN PCP - General Internal Medicine 04/24/[address] [place] [address] documented as of this encounter
--- OUTSIDE RECORDS SUMMARY | 2021-09-27 14:52 | XMS_ITS | Encounter Summary ---
:1960 Author Organization [facility] [place] [address] Care Team Providers Name Role Phone Ally Ortiz Mary GARGN Primary Care Provider Reason for Visit Reason Comments Follow-up 2 week f/u Encounter Details Date Type Department Care Team Description 08/07/2021 Office Visit General Surgery at [facility] Paloma Mota, [place] [address] [address] [address] [phone] GENERAL SURGERY [place] [id number] (Wo rk) Social History Tobacco Use Types [...] Sign Reading Time Taken Comments Blood Pressure 170/82 08/07/2021 1:04 PM EDT Pulse 90 08/07/2021 1:04 PM EDT Temperature - - Respiratory Rate - - Oxygen Saturation 97% 08/07/2021 1:04 PM EDT Inhaled Oxygen Concentration - - Weight - - Height - - Body Mass Index - - documented in this encounter Progress Notes Paloma Mota APRN - 08/07/2021 1:00 PM EDT Jahaira Montgomery presents to clinic for surgical follow up. 07/23/21: Repair incisional/ventral hernia with mesh-Cooros Findings: - Multiple ventral hernia defects, no incarcerated or threatened bowel, removed visible previous PDSsutures, partial scar excision, made subcutaneous flaps and closed fascia with running 0 PDS and reinforced closure with onlay ovitex (PDS) [place] well until yesterday am when she states that her left abdomen was pressed on during her dressing change with VNA, after which she developed left sided abdominal pain. No fevers, chills, no nausea or vomiting, reports bowels are functioning and she denies any urinary symptoms. Reports R abdominal drain output<15cc x4d. EXAM: Crying in the exam room, abd soft, tender over left abdomen. Midline incision intact beneath fara. Fara were removed on exam, steri strips placed, drain removed as well there were 2 eyes of the drain visible outside of the skin prior to removal..Tolerated staple and drain removal well. Impression/plan; Transferred to ED for further evaluation, I have spoken with Transfer center and Dr Darryn Daniel. Pt is amenable to transfer. documented in this encounter Plan of Treatment Upcoming Encounters Date Type Specialty Care Team Description 09/30/2021 Office Visit General Surgery Paloma Mota APRN [facility] ER GENERAL SURGERY [place], [place] [address] (Wo rk) 09/30/2021 Office Visit Infectious Diseases Werner Harrell MD [facility] ER INFECTIOUS DISEA [place], [place] [address] (Wo rk) documented as of this encounter Visit Diagnoses Diagnosis Surgery follow-up Follow-up examination, following unspeci fied surgery documented in this encounter Care Teams Swiss Machinist Relationship Specialty Start Date End Date Ally Ortiz APRN PCP - General Internal Medicine 04/24/[address] [place] [address] documented as of this encounter
--- OUTSIDE RECORDS SUMMARY | 2021-09-27 14:52 | XMS_ITS | Encounter Summary ---
:1960 Author Organization [place] [address] Care Team Providers Name Role Phone Ally Ortiz APRN Primary Care Provider Reason for Visit Reason Comments Abdominal Pain Encounter Details Date Type Department Care Team Description 08/07/2021 Emergency Emergency Department Nella Barrera ft lower quadrant abdominal pain; [facility] Hypokalemia; [facility] History [place] [id number] Social History Tobacco Use Types Packs/Day [...] Sign Reading Time Taken Comments Blood Pressure 120/72 08/07/2021 5:15 PM EDT Pulse 80 08/07/2021 2:20 PM EDT Temperature 36.6 ??C (97.8 ??F) 08/07/2021 2:20 PM EDT Respiratory Rate - - Oxygen Saturation 96% 08/07/2021 5:15 PM EDT Inhaled Oxygen Concentration - - Weight - - Height - - Body Mass Index - - documented in this encounter Discharge Instructions Discharge InstructionsJohn Cruz PA - 08/07/2021 5:48 PM EDT -your blood work showed a mild elevation in your white blood cell count and a low potassium level -your CT scan showed your CT scan shows no acute abnormalities in your abdomen. You have some small amount of inflammation in the abdominal wall with some air there from your prior drainage tube. - You were evaluated by the surgery team. They do not feel you need to be admitted to the hospital but will see you in the office for follow-up - Your potassium level is low you were given potassium here in the emergency department. Take another dose of potassium at home tonight and continue that twice daily for the next several days - You need to have a potassium level checked on Thursday morning and follow-up with your primary doctor -continue your regular medications as prescribed -push liquids by mouth to stay well hydrated -Tylenol or Motrin for pain as needed -call your primary care provider for follow-up next week as discussed -return to the emergency department for increased pains, nausea, vomiting, not tolerating liquids, fevers, or any concerns AttachmentsThe following attachments cannot be sent through Care Everywhere. Abdominal Pain (Croatian)Hypokalemia (Croatian)documented in this encounter Medications at Time of Discharge Medication Sig Dispensed Refills Start Date End Date atorvastatin (Lipitor) 20 mg Take 20 mg by 0 05/15 Tablet mouth every evening. hydroCHLOROthiazide Take 25 mg by 0 04/22/2021 (Hydrodiuril) 25 mg Tablet mouth daily. potassium chloride ER Take 1 tablet by 12 tablet 0 08/08/19 22 08/22/2021 (K-Dur/Klor-Con) 20 mEq Tab mouth 2 times Sust.Rel. Particle/Crystal daily. Eszopiclone (LUNESTA) 1 mg Take 1 mg by 0 022 09/19/2021 Tablet mouth nightly as needed. senna (Senokot) 8.6 mg Tablet Take 2 tablets 0 08/22/2021 by mouth nightly. ALBUTEROL INHL Inhale into the 0 04/24/202008/13 lungs as needed. senna-docusate (Pericolace) Take 2 tablets 60 tablet 11 04/1608/22/2021 8.6-50 mg Tablet by mouth 2 times daily as needed for Constipation. polyethylene glycoL (Miralax) Take 17 g by 510 g 0 04/1608/22/2021 17 gram/dose Powder mouth daily as needed for up to 30 doses. nicotine (NICODERM CQ) 14 Change 1 patch 28 patch 0 202008/13/2021 mg/24 hr Patch 24 hr on the skin Q10 Weeks. nicotine polacrilex Take 1 each by 100 each 0 04/27/2020 0 08/13/2021 (NICORETTE) 2 mg Gum mouth as needed for Smoking cessation. acetaminophen (Tylenol Extra Take 1 tablet by 30 tablet 0 0 09/19/2019 09/19/2021 Strength) 500 mg Tablet mouth every 6 hours as needed for Pain. ibuprofen (Advil;Motrin) 600 Take 1 tablet by 30 tablet 0 0 09/19/2019 08/13/2021 mg Tablet mouth every 6 hours as needed for Pain. documented as of this encounter ED Notes Ten Hirsch RN - 08/07/2021 4:20 PM EDT Pt refused IV start and ordered potassium infusion stating she needs to see Gen sebastián BAUMAN prior deciding. PA aware of same. John Cruz PA - 08/07/2021 3:35 PM EDT ED Provider Note HPI: Jahaira Montgomery is a 61 y.o. female history of diverticulitis, hypertension, hypercholesterolemia, TIA,prior colectomy with colostomy and subsequent reversal. She is also had ventral incisional hernia repair most recently done with mesh on July [address] Watters. She comes in emerged from today after being seen in the surgery department for postop visit and staple removal. She has been having significant left-sided abdominal pain since yesterday. It is beside the incisional area. She is had no drainage or significant pain in the incision itself. She says she has been eating and drinking fairly well. Hadno nausea or vomiting. Her bowels been moving normally. Has not had diarrhea. Denies any urinary symptoms. Because of the significant pain she was sent into the emergency department for further surgical evaluation. Review of Systems Constitutional: Negative for chills and fever. HENT: Negative for sore throat. Eyes: Negative. Respiratory: Negative for cough and shortness of breath. Cardiovascular: Negative for chest pain and palpitations. Gastrointestinal: Positive for abdominal pain. Negative for diarrhea, nausea and vomiting. Endocrine: Negative. Genitourinary: Negative for difficulty urinating and frequency. Musculoskeletal: Negative. Skin: Negative. Neurological: Negative for headaches. Psychiatric/Behavioral: Negative. Pertinent positives and negatives are included in the HPI, otherwise at least ten systems were reviewed and negative. Past Medical and Surgical Histories, Social History, Medications, Allergies were reviewed in the chart. Vitals: ED Triage Vitals BP: (!) 143/116 [08/07/21 1421] Heart Rate: 80 [08/07/21 1420] Resp: n/a Temp: 36.6 ??C (97.8 ??F) [08/07/21 1420] Temp src: n/a SpO2: 96 % [08/07/21 1420] O2 Device: n/a O2 Flow Rate (L/min): n/a Physical Exam Vitals and nursing note reviewed. Constitutional: General: She is not in acute distress. Appearance: She is obese. Comments: Elderly appearing female resting in the stretcher HENT: Head: Normocephalic and atraumatic. Mouth/Throat: Mouth: Mucous membranes are moist. Pharynx: Oropharynx is clear. Cardiovascular: Rate and Rhythm: Normal rate and regular rhythm. Heart sounds: No murmur heard. No friction rub. No gallop. Pulmonary: Effort: Pulmonary effort is normal. Breath sounds: No wheezing, rhonchi or rales. Chest: Chest wall: No tenderness. Abdominal: General: Bowel sounds are normal. Comments: Obese, there is a healed and incision in the midline with Steri- Strips in place. Patient has significant tenderness with light palpation just lateral to the left side of the incision. Some fullness there. Abdomen is otherwise tender with radiation to that area. Musculoskeletal: General: Normal range of motion. Cervical back: Normal range of motion and neck supple. Skin: General: Skin is warm and dry. Neurological: General: No focal deficit present. Mental Status: She is alert and oriented to person, place, and time. Motor: No weakness. Psychiatric: Mood and Affect: Mood normal. ED Course: I have reviewed labs and imaging, images and available reports, CT Abdomen & Pelvis wo Contrast (Results Pending) ED Course as of 08/07/21 1620 ThuAugust 07, 2021 1513 WBC(!): 13.6 1513 Hemoglobin: 13.8 1513 Platelets(!): 368 1513 Lactate WB: 1.4 1532 Sodium: 139 1532 Potassium(!!): 2.8 1532 Chloride(!): 97 1532 CO2: 30 1532 Creatinine: 0.70 1532 BUN: 16 1532 Glucose Lvl: 120 1532 AST: 14 1532 ALT: 16 1532 Alk Phos(!): 118 1532 Total Bilirubin: 0.3 1532 Lipase: 16 1532 Lactate WB: 1.4 1619 IMPRESSION 1. Ventral hernia repair with mesh. No recurrent hernia. 2. Mostly gas containing collection ventral to the mesh 9 cm in craniocaudal dimension. This is more gas than expected 2 weeks post op. Suspicious linear tract to the right periumbilical skin surface. Suspected abscess. ?? Procedures Assessment and Plan: 61 y.o. female with with a history of diverticulitis with perforation requiring colectomy and Lucy procedure with subsequent reversal of her colostomy. She has been having problems with incisional hernias following that. She had a repair in April and then another on May 22. She was in the surgical office today for follow-up and was noted to have significant pain in the left side of the incision region. They were concerned and sent her here. Here in the emergency department she is significantly tender in the left side of the abdomen just lateral to her incision. The incision itself is intactwith the sutures out. She has significant guarding with light palpation. Blood work shows evidence of a mild leukocytosis at 13,000. Potassium level is significantly low at 2.8. We will give her some replacement for that. CT scan is still pending. I am Demetria reach out for surgery evaluation of her CT and pain on exam. 5:40 PM-patient was reevaluated she is resting comfortably no new complaints. She was evaluated by the surgery team. They reviewed her CAT scan and seen her in the emergency department. They feel the area on the CAT scan is related to the drain that was just removed. They do not see significant fluid collection. They do not feel she needs to be admitted. They are comfortable with plan for discharge and outpatient follow-up. Patient does have a low potassium. I have discussed with her coming into thehospital for this she does not want to stay. We will give her oral potassium here in the emergency department and place her on oral potassium for home for the next several days. I have asked her to foll ow-up with her primary care provider early next week for a repeat potassium check. She should returnto the emergency department she has increased pain, fevers, vomiting, diarrhea, or any concerns. He is comfortable these plans ligaments are stable amatory Final diagnosis #1 abdominal pain #2 recent ventral hernia repair #3 hypokalemia Disposition Home stable ambulatory John Cruz PA 08/07/21 0198 Tu Banegas APRN - 08/07/2021 2:18 PM EDT Patient Name: Jahaira Montgomery Patient Age/: 61 y.o./1960 Encounter Date: 08/07/2021 Brief Provider Triage Note 61 y.o. female presents to the emergency department with abdominal pain. S/p abdominal surgery for hernia repair on 07/22 w/ Dr. Watters. Had a routine follow up, suture removal and pain was severe. Sent to ED for evaluation. Moving bowels, no fever or chills. Pain /10. Taking Advil. Brief focused physical exam notable for alert female NAD in wheelchair but appears uncomfortable. Limited exam in triage. BP (!) 143/116 Pulse 80 Temp 36.6 ??C (97.8 ??F) SpO2 96% Plan: labs, U/A with reflex culture and CT A/P Patient requires further evaluation, diagnosis and management in the emergency department. PPE worn during this encounter: Level 2 mask and Eyeglasses Tu Banegas APRN 08/07/21 1426 Aarti Daniel MD - 08/07/2021 1:51 PM EDT The patient is a 61-year-old woman who is 14 days status post hernia repair with mesh by Dr. Watters.She was evaluated for routine follow-up in the surgery clinic today for staple removal. She was complaining of 10-20 out of 10 pain in her left mid abdomen. They have been unable to get her pain under control. The case was discussed with Dr. Che and she asked that the patient be sent to the ED for labs and a CT scan. Please call the [phone] pager for consultation. Aarti Daniel MD 08/07/21 1352 documented in this encounter Miscellaneous Notes Consult Note - Loco White MD - 08/07/2021 4:09 PM EDT Images from the original note were not included. [facility] Department of Surgery Emergency Department Consult Note Consultation requested by: JESSIE Hearn HPI: Jahaira Montgomery is a 61 y.o. female with a PMH of current tobacco use, obesity, DM2 (A1c 7.1%), diverticulitis s/p Lucy's procedure (Hinchey IV diverticulitis) now reversed who presents with leftlower quadrant abdominal pain since yesterday. She underwent Ovitex on-lay mesh placement on 07/23 with two supra-mesh drain placement, and the left drain was pulled before discharge. She presented to General Surgery clinic today with minimal output from the right drain which was pulled, and was sent to the ED due to report of severe LLQ abdominal pain. She describes her pain as sharp and non-radiating, worse with movement but also intermittently present at rest. She continues to tolerate PO intake with normal appetite, and is having normal bowel movements and passing flatus. Pain is temporarily relieved with Aleve. She denies fevers, chills, nausea,vomiting or other symptoms. Prior General Surgical Operations: 03/19/2019 ([facility]): Lucy's procedure 09/15/2019 (Saurabh): Lucy's reversal with colorectal anastomosis, omental flap 04/25/2020 (Santosh): Exploratory laparotomy for ventral hernia, primary repair of hernia defect 04/25/2021 (Christopher): Exploratory laparotomy for recurrent incarcerated ventral hernia, primary repair of hernia defect 2021 (Janene): Exploratory laparotomy with repair of multiple fascial defects, Ovitex mesh and fascial closure PMH: Past Medical History: Diagnosis Date ??? [...] 27.9) performed by Miryam Wiley MD at [facility] MAIN OR ??? PRO COLONOSCOPY, DIAGNOSTIC N/A 08/18/2019 COLONOSCOPY, DIAGNOSTIC performed by Emigdio Lanier MD at [facility] ENDOSCOPY ??? PRO CYSTOSCOPY, INSERT URETERAL STENT Right 09/14/2019 CYSTO, STENT PLACEMENT INTRAOP, TEMPORARY (WRVU 2.82) performed by Werner Fournier MD at [facility] MAIN OR ??? PRO EXPLORATORY OF ABDOMEN N/A 04/25/2020 @EXPLORATORY LAPAROTOMY, WITH/WITHOUT BIOPSY(S) (WRVU 12.54) performed by Jerod Frost MD at [facility] MAIN OR ??? PRO IMPLANT MESH HERNIA REPAIR/DEBRIDEMENT CLOSURE N/A 2021 IMPLANT MESH FOR INCISIONAL OR VENTRAL HERNIA REPAIR (WRVU 4.88) performed by Negro Watters MD at [facility] MAIN OR ??? PRO MOBILIZE SPLENIC FLEX N/A 09/14/2019 @MOBILIZATION OF SPLENIC FLEXURE (WRVU 2.23) performed by Miryam Wiley MD at [facility] MAIN OR ??? PRO OMENTAL FLAP, INTRA-ABDOMINAL 09/14/2019 @OMENTAL FLAP, INTRA-ABDOMINAL (WRVU 6.54) performed by Miryam Wiley MD at [facility] MAIN OR ??? PRO REPAIR RECURR INCIS HERNIA, DEONTE N/A 04/25/2020 HERNIA REPAIR, VENTRAL OR INCISIONAL, RECURRENT, INCARCERATED (WRVU 15.53) performed by Jerod Frost MD at [facility] OR ??? PRO REPAIR RECURR INCIS HERNIA, DEONTE Left 04/25/2021 HERNIA REPAIR, VENTRAL OR INCISIONAL, RECURRENT, INCARCERATED (WRVU 15.53) performed by Loco White MD at [facility] OR ??? PRO REPAIR RECURR INCIS HERNIA, DEONTE N/A 2021 HERNIA REPAIR, VENTRAL OR INCISIONAL, RECURRENT, INCARCERATED (WRVU 15.53) performed by Negro Watters MD at [facility] OR ??? PRO SIGMOIDOSCOPY, DIAGNOSTIC N/A 09/14/2019 SIGMOIDOSCOPY, FLEXIBLE W/WO SPECIMEN BY BRUSHING OR WASHING (WRVU 0.84) performed by Miryam Wiley MD at [facility] MAIN OR ??? TUBAL LIGATION MEDS: No current facility-administered medications on file prior to encounter. Current Outpatient Medications on File Prior to Encounter Medication Sig Dispense Refill ??? atorvastatin (Lipitor) 20 mg Tablet Take [...] mouth 2 times daily as needed forConstipation. 60 tablet 11 ??? polyethylene glycoL (Miralax) 17 gram/dose Powder Take 17 g by mouth daily as needed for up to 30 doses. (Patient not taking: Reported on 07/22/2021) 510 g 0 ??? nicotine (NICODERM CQ) 14 mg/24 hr Patch 24 hr Change 1 patch on the skin Q10 Weeks. (Patient not taking: No sig reported) 28 patch 0 ??? nicotine polacrilex (NICORETTE) 2 mg Gum Take 1 each by mouth as needed for Smoking cessation. (Patient not taking: No sig reported) 100 each 0 ??? acetaminophen (Tylenol Extra Strength) 500 mg Tablet Take 1 tablet by mouth every 6 hours as needed for Pain. 30 tablet 0 ??? ibuprofen (Advil;Motrin) 600 mg Tablet Take 1 tablet by mouth every 6 hours as needed for Pain. 30 tablet 0 ALL: No Known Allergies FHx: Family History Problem Relation Age of Onset ??? Cancer Father pancreas SHx: Social History Socioeconomic History ??? Marital status: [...] on file Housing Stability: Not on file ROS: A 10-point review of systems was negative except as noted in HPI. VITALS: Patient Vitals for the past 24 hrs: Temp Pulse BP SpO2 08/07/21 1420 36.6 ??C (97.8 ??F) 80 no documentation 96 % 08/07/21 1421 no documentation no documentation (Abnormal) 143/116 no documentation EXAM: Gen: NAD, resting comfortably, intermittently clutching LLQ HEENT: MMM, no scleral icterus CV: RRR Pulm: unlabored breathing on RA, no use of accessory muscles, no stridor/audible wheezing GI/Abd: soft, non-distended, point tenderness to palpation in LLQ. No rebound or guarding. Well-healing midline incision with Steri-Strips in place and minimal surrounding dried blood. MSK: extremities warm and well perfused, no notable edema Neuro: no focal deficits Skin: healing midline incision as above, otherwise warm and dry LABS: Recent Labs 08/07/21 1446 WBC 13.6* HGB 13.8 HCT 41.2 PLATELET 368* NEUTROABS 7.89* Recent Labs 08/07/21 1446 NA 139 K 2.8* CL 97* CO2 30 BUN 16 CREATININE 0.70 Recent Labs 08/07/21 1446 CALCIUM 10.1 Recent Labs 08/07/21 1446 GLUCOSE 120 No results for input(s): AMYLASE, BFAMYLASE in the last 168 hours. Recent Labs 08/07/21 1446 AST 14 ALT 16 ALKPHOS 118* BILITOT 0.3 No results for input(s): INR, PT, PTT in the last 168 hours. No results for input(s): CK in the last 168 hours. MICRO: None pertinent IMAGING/DIAGNOSTICS: CT Abdomen & Pelvis wo Contrast 08/07/2021 1. Ventral hernia repair with mesh. No recurrent hernia. 2. Mostly gas containing collection ventral to the mesh 9 cm in craniocaudal dimension. This is moregas than expected 2 weeks post op. Suspicious linear tract to the right periumbilical skin surface. Suspected abscess. ASSESSMENT: Jahaira Montgomery is a 61 y.o. female with a history of current tobacco use, obesity, DM2 (A1c 7.1%), diverticulitis s/p Ulcy's procedure with reversal and multiple incisional hernia repairswith most recent with Ovitex mesh in early July 2021, who presents to the ED from General Surgery clinic with LLQ pain. She is focally tender on exam in the LLQ without peritoneal signs. CT scan demonstrates more air than expected overlying mesh but patient had right drain removed earlier today, which was lying over mesh and communicating with atmosphere likely explaining burden of air. She does have slight leukocytosis but is not significantly elevated from WBC prior to discharge, and without left shift. There does not appear to be any drainable fluid collection on the scan and clinically the incision is well-healing without erythema, warmth or drainage. The linear tract noted to the right abdomen is also not consistent with patient's pain in the LLQ. There is low clinical concern for ovarian or pro cess such as nephrolithiasis. Discussed that patient does not have recurrent hernia which was her primary concern. Options include admission for observation and IV antibiotics versus discharge, and patient reports eagerness to go home with [id number] and continued pain control with OTC pain medications. RECS: ?? No indication for admission or surgical intervention at this time ?? Low concern for drainable abscess ?? May be discharged home from surgery standpoint, would consider electrolyte repletion prior to discharge ?? Will arrange for clinic follow-up in 2 weeks in General Surgery clinic ?? Return precautions including fever, chills, erythema, warmth, drainage, purulence, nausea, vomiting, and inability to tolerate PO reviewed ?? Above plan was discussed with Dr. Christopher Treviño MD [id number] 08/07/2021 4:10 PM SURGICAL ATTENDING NOTE: Pt discussed with the resident staff and I agree with the above note and plan with the following additions/modifications. No evidence of recurrent hernia. Air seen in the subcutaneous space most likely related to the GEE drain that was removed today. She has no evidence of ongoing infection. The woundoverall looks reasonably well. Patient was relieved by this. She would be discharged home with follow-up in the surgical clinic in the next week or so unless her clinical symptoms change. Otherwise noted above. documented in this encounter Plan of Treatment Upcoming Encounters Date Type Specialty Care Team Description 09/30/2021 Office Visit General Surgery Paloma Mota, TRANSFER ENGINEER [facility] GENERAL SURGERY [place], [place] [address] ( rk) 09/30/2021 Office Visit Infectious Diseases Werner Harrell MD [facility] INFECTIOUS DISEA [place], [place] [address] ( alexander) documented as of this encounter Procedures Procedure Name Priority Date/Time Associated Comments Diagnosis CT ABDOMEN AND PELVIS STAT 08/07/2021 3:16 PM Results for this WO CONTRAST EDT procedure are i n the results section. L-LACTATE2 WHOLE BLOOD Routine 08/07/2021 2:47 PM Results for this EDT procedure are i n the results section. HEMOGRAM STAT 08/07/2021 2:46 PM Results f or this EDT procedure are i n the results section. DIFFERENTIAL, STAT 08/07/2021 2:46 PM Results for this AUTOMATED EDT procedure are i n the results section. HC CBC,PLT & AUTO DIFF STAT 08/07/2021 2:46 PM EDT HC LIPASE STAT 08/07/2021 2:46 PM Results f or this EDT procedure are i n the results section. COMPREHENSIVE STAT 08/07/2021 2:46 PM Results for this METABOLIC PANEL EDT procedure ar e in (NON-FASTING) the results section. documented in this encounter Results CT Abdomen & Pelvis wo Contrast (08/07/2021 3:16 PM EDT) Anatomical Region Laterality Modality Abdomen, Pelvis Computed Tomography Specimen (Source) Anatomical Collection Method Collection Time Re ceived Time Location / / Volume Laterality 08/07/2021 3:33 PM EDT Impressions 08/07/2021 3:34 PM EDT 1. ??Ventral hernia repair with mesh. No recurrent hernia. 2. ??Mostly gas containing collection ve ntral to the mesh 9 cm in craniocaudal dimension. This is more gas than expecte d 2 weeks post op. Suspicious linear tract to the right periumbilical skin whitmore rface. Suspected abscess. Thank you for letting us participate in the care of this patient. ??If you are a health care provider and have any questi ons regarding this report, please contact the number below. ??For patients who have questions please contact the health child care lead teacher that requested your imaging first. ? Narrative 08/07/2021 3:34 PM EDT EXAMINATION: CT ABDOMEN AND PELVIS WO CONTRAST CLINICAL HISTORY: Abdominal pain, post-o p; abd pain ~2 weeks s/p hernia repair with mesh, eval acute process, perf, abs cess TECHNIQUE: Helical CT of the abdomen and pelvis was performed without the use of intravenous contrast. ??Multiplanar refo rmatted images were generated. COMPARISON: Outside CT of the abdomen an d pelvis 07/18/2021. CT of the abdomen and pelvis 04/24/2021 FINDINGS: The absence of intravenous contrast limi ts the evaluation of solid viscera and vasculature. Lower chest: Normal. Liver: Normal. Bile ducts: Nondilated. Gallbladder: Removed Pancreas: Normal. Spleen: Normal. Adrenals: Normal. Kidneys/ureters: Normal. Urinary Bladder: Normal. Vasculature: Moderate aortic atheroscler osis. Mild focal ectasia of the infrarenal aorta to 2.6 cm. Lymph nodes: No enlarged lymph nodes. Bowel: No enteric contrast. No gastroint estinal dilatation. Prior colonic resection with end to side anastomosis i n the midline pelvis, appears widely patent. Normal appendix. Peritoneum and mesentery: No ascites, fr ee air, or loculated fluid collection. Abdominal wall: Interval ventral hernia repair with mesh. No recurrent hernia. Ventral to the mesh is a fluid and gas c ollection (mostly gas) measuring approximately 5 cm transversely and 9 cm craniocaudally. Linear tract containing foci of gas leading to the right periumb ilical skin surface (series 3 images 90-95). Reproductive organs: Absent uterus. No a dnexal masses. Osseous structures: No suspicious lesion s. Degenerative changes. Grade 1 anterolisthesis of L5 on S1 appears seco ndary to disc height loss and facet arthropathy. Procedure Note Azar Russell MD - 08/07/2021Format ting of this note might be different from the original. EXAMINATION: CT ABDOMEN AND PELVIS WO CO NTRAST CLINICAL HISTORY: Abdominal pain, post-o p; abd pain ~2 weeks s/p hernia repair with mesh, eval acute process, perf, abs cess TECHNIQUE: Helical CT of the abdomen and pelvis was performed without the use of intravenous contrast. Multiplanar reform atted images were generated. COMPARISON: Outside CT of the abdomen an d pelvis 07/18/2021. CT of the abdomen and pelvis 04/24/2021 FINDINGS: The absence of intravenous contrast limi ts the evaluation of solid viscera and vasculature. Lower chest: Normal. Liver: Normal. Bile ducts: Nondilated. Gallbladder: Removed Pancreas: Normal. Spleen: Normal. Adrenals: Normal. Kidneys/ureters: Normal. Urinary Bladder: Normal. Vasculature: Moderate aortic atheroscler osis. Mild focal ectasia of the infrarenal aorta to 2.6 cm. Lymph nodes: No enlarged lymph nodes. Bowel: No enteric contrast. No gastroint estinal dilatation. Prior colonic resection with end to side anastomosis i n the midline pelvis, appears widely patent. Normal appendix. Peritoneum and mesentery: No ascites, fr ee air, or loculated fluid collection. Abdominal wall: Interval ventral hernia repair with mesh. No recurrent hernia. Ventral to the mesh is a fluid and gas c ollection (mostly gas) measuring approximately 5 cm transversely and 9 cm craniocaudally. Linear tract containing foci of gas leading to the right periumb ilical skin surface (series 3 images 90-95). Reproductive organs: Absent uterus. No a dnexal masses. Osseous structures: No suspicious lesion s. Degenerative changes. Grade 1 anterolisthesis of L5 on S1 appears seco ndary to disc height loss and facet arthropathy. IMPRESSION 1. Ventral hernia repair with mesh. No r ecurrent hernia. 2. Mostly gas containing collection vent ral to the mesh 9 cm in craniocaudal dimension. This is more gas than expecte d 2 weeks post op. Suspicious linear tract to the right periumbilical skin whitmore rface. Suspected abscess. Thank you for letting us participate in the care of this patient. If you are a health care provider and have any questi ons regarding this report, please contact the number below. For patients w ho have questions please contact the health child care lead teacher that requested your imaging first. Tu Lobitodaniellaanthony TRANSFER ENGINEER IMG CT ORDERABLES L-Lactate2 Whole Blood (08/07/2021 2:47 PM EDT) athologist Signature Lactate WB 1.4 0.5 - 2.2 [facility] mmol/L [facility] Specimen Anatomical Collection Method Collection Time Receive d Time (Source) Location / / Volume Laterality Blood 08/07/2021 2:47 PM 2:47 EDT PM EDT Emergency Dept CHEMISTRY ORDERABLES Performing Organization Address City/State/ZIP Code Phon e Number [place] [id number] (ABNORMAL) Differential, Automated (08/07/2021 2:46 PM EDT) [facility] gist Method Time Signature Neutrophils % 58.0 % [facility] Neutr Abs (ANC) 7.89 (H) 1.70 - [facility] 6.10 [facility] x10(3)/[facility] LABORATORY Lymphocytes % 25.1 % [facility] Lymphocytes Abs 3.4 (H) 0.9 - 3.2 [facility] x10(3)/[facility] LABORATORY Monocytes % 7.1 % [facility] Monocyte Abs 1.0 (H) 0.3 - 0.9 [facility] x10(3)/[facility] LABORATORY Eosinophils % 7.9 % [facility] Eosinophils Abs 1.1 (H) 0.0 - 0.4 [facility] x10(3)/[facility] LABORATORY Basophils % 1.5 % [facility] Basophils Abs 0.2 (H) 0.0 - 0.1 [facility] x10(3)/[facility] LABORATORY Immature Gran % 0.40 % [facility] Comment: Immature granulocytes(IG's)percentage an d absolute count will include metamyelocytes, myelocytes, and promyelo cytes. Blood smears from CBCs yielding IG's will be scanned manually for concor dance. If this scan disagrees with the automated IG or if promyelocytes are not ed, a manual differential will be performed. Shantell Gran Abs 0.05 (H) 0.00 - 0.04 x10(3)/[facility] LABORATORY Specimen Anatomical Collection Method Collection Time Receive d Time (Source) Location / / Volume Laterality Blood 08/07/2021 2:46 PM 2 2:50 EDT PM EDT Resulting Agency Comment Spec In Lab Tu Bacaicoa TRANSFER ENGINEER HEMATOLOGY ORDERABLES Performing Organization Address City/State/ZIP Code Phon e Number [place] [phone] [facility] (ABNORMAL) Hemogram (08/07/2021 2:46 PM EDT) Analysis Performed At Patho logist Time Signature WBC 13.6 (H) 4.0 - 9.5 [facility] NAVEEN x10(3)/[facility] LABORATORY RBC 4.55 4.00 - NELLA NAVEEN 5.21 [facility] x10(6)/[facility] LABORATORY Hemoglobin 13.8 11.7 - [facility] g/dL [facility] Hematocrit 41.2 35.7 - [facility] 45.8 % [facility] MCV 90.5 82.6 - [facility] 94.4 [facility] LABORATORY MCH 30.3 27.1 - NELLA NAVEEN 32.0 pg [facility] MCHC 33.5 31.7 - NELLA NAVEEN 35.0 g/dL [facility] Platelets 368 (H) 145 - 357 [facility] x10(3)/[facility] LABORATORY RDWSD 41.3 37.0 - [facility] 46.0 [facility] LABORATORY RDWCV 12.5 11.5 - [facility] NAVE[place] 14.1 % [facility] MPV 9.0 7.6 - 12.9 [facility] [place] [facility] LABORATORY nRBC % Auto 0.0 % [facility] nRBC Abs Auto 0.000 0.000 - [facility] [place] 0.000 [facility] x10(3)/[facility] LABORATORY Specimen Anatomical Collection Method Collection Time Receive d Time (Source) Location / / Volume Laterality Blood 08/07/2021 2:46 PM 2 2:50 EDT PM EDT Resulting Agency Comment Spec In Lab Tu [place]aca[place]a TRANSFER ENGINEER HEMATOLOGY ORDERABLES Performing Organization Address City/State/[place] [address] Lipase (08/07/2021 2:46 PM EDT) athologist Signature Lipase 16 0 - 60 [facility] unit/L [facility] Specimen Anatomical Collection Method Collection Time Receive d Time (Source) Location / / Volume Laterality Blood 08/07/2021 2:46 PM 2 2:50 EDT PM EDT Resulting Agency Comment Spec In Lab Tu Banegas TRANSFER ENGINEER CHEMISTRY ORDERABLES Performing Organization Address City/State/[place] [address] (ABNORMAL) Comprehensive metabolic panel (non-fasting) (08/07/2021 2:46 PM EDT) athologist Signature Glucose Lvl 120 65 - 199 [facility] mg/dL [facility] Comment: Diabetes: >=200 mg/dL plus symp toms BUN 16 8 - 18 mg/dL [facility] Creatinine 0.70 0.70 - 1.20 mg/dL [facility] Sodium 139 135 - 145 mmol/L [facility] Potassium 2.8 (Critical) 3.5 - 5.0 mmol/L [facility] Comment: Called by: Aleja, Read back by: Macy burkett, Date/Time:08/07/21 15:28. Please note: ??Patients with WBC >100,00 0 may have falsely elevated Potassium levels. ??For accurate Potassium quantif ication in these patients send serum separator tube (gold top) for subsequent determinations. ??Contact the Clinical Chemistry Laboratory if there are any qu estions. Chloride 97 (L) 98 - 107 mmol/L [facility] CO2 30 22 - 31 mmol/L [facility] Anion Gap 12 5 - 15 mmol/L [facility] Calcium 10.1 8.5 - 10.5 mg/dL [facility] Total Protein 7.4 6.1 - 8.0 g/dL [facility] Albumin 4.0 3.2 - 5.2 g/dL [facility] AST 14 0 - 30 unit/L [facility] ALT 16 0 - 30 unit/L [facility] Alk Phos 118 (H) 35 - 105 unit/L [facility] Total Bilirubin 0.3 0.2 - 1.3 mg/dL [facility] Estimated GFR 95 >=60 mL/min/1.73 m?? [facility] [...] Organization Address City/State/[place] [address] documented in this encounter Visit Diagnoses Diagnosis Left lower quadrant abdominal pain Hypokalemia Hypopotassemia History of ventral hernia repair Personal history of surgery to other org ans documented in this encounter Administered Medications Inactive Administered Medications - up to 3 most recent administrations Medication Order MAR Action Action Date Dose Rate Site potassium chloride ER Given 08/07/2021 5:46 PM EDT 40 mEq (K-Dur/Klor-Con) tablet 40 mEq 40 mEq, Oral, ONCE, 1 dose, On Thu08/07/21 at 1734, 20 mEq tablet may be dissolved in water for administration, Routine sodium chloride 0.9% infusion 125 mL/hr, Intravenous, CONTINUOUS, Starting on Thu at 1536, Until Thu08/07/21 at 1956 documented in this encounter Active and Recently Administered Medications Times are shown in EDT. Scheduled Medication Order 08/05/2021 08/06/2021 08/07/2021 potassium chloride 10 mEq in sterile water 100 mL infusion 1536 (Due) 10 mEq, Intravenous, ONCE, 1 dose, On 08/07/21 at 1536, Administer over 60 Minutes, Warning Vesicant/Irritant Medication potassium chloride ER (K-Dur/Klor-Con) tablet 40 mEq (COMPLETED) 1746 (Given - Provider: Ten Hirsch, RN) 40 mEq, Oral, ONCE, 1 dose, On Thu at 1734, 20 mEq tablet may be dissolved in water for administration, Routine Continuous Medication Order 08/05/2021 08/06/2021 08/07/2021 sodium chloride 0.9% infusion 15 36 (Due) 125 mL/hr, Intravenous, CONTINUOUS, Star ting on Thu08/07/21 at 1536, Until Thu08/07/21 at 1956 documented in this encounter Care Teams International Bank Manager Relationship Specialty Start Date End Date Ally Ortiz APRN PCP - General Internal Medicine 04/24/[address] [place] [address] documented as of this encounter
--- OUTSIDE RECORDS SUMMARY | 2021-09-27 14:52 | XMS_ITS | Encounter Summary ---
:1960 Author Organization [facility] Address [facility] [place] [address] Care Team Providers Name Role Phone Ally Ortiz APRN Primary Care Provider Reason for Visit Reason Comments Post-op Problem Auth/Cert Specialty Diagnoses / Procedures Referred By Contact Refer red To Contact Diagnoses Wound infection after surgery Procedures ER IPI Referral ID Status Reason Start Date Expiration Date Visits Requ ested Visits Authorized [id number] 1 1 Encounter Details Date Type Department Care Team Description 08/12/2021 Surgery Main Operating Room Joshua Che, I & D ABSCESS, SIMPLE Nella Xiao MD OR SINGLE, TRUNK ([facility] [address].) [facility] [place] [address] [place] [address] [phone] Social History Tobacco Use Types Packs/Day Years [...] Sign Reading Time Taken Comments Blood Pressure 118/62 08/12/2021 8:00 PM EDT Pulse 65 08/12/2021 8:00 PM EDT Temperature 36.5 ??C (97.7 ??F) 08/12/2021 7:25 PM EDT Respiratory Rate 7 08/12/2021 8:00 PM EDT Oxygen Saturation 96% 08/12/2021 8:00 PM EDT Inhaled Oxygen Concentration - - [...] (WRVU 12.04) (Midline) Operative findings: 08/12/2021 - [id number] abscess of abdominal wall over mesh. - [...] One white sponge and one black sponge placed.??[id number] wound.?? 08/17/2021 -22 x 14 x 4 [...] symptoms. Hospital Course: Ms. Montgomery presented the [facility] emergency department and subsequently seen by the [...] Procedure Component Value Units Date/Time COVID-19 PCR [[id number]] Collected: 08/15/21 1531 Lab Status: Final result [...] diagnosis of COVID-19 is performed using the [employer] m SARS-CoV-2 Assay as authorized by the FDA Emergency Use Authorization (EUA). This EUA assay is intended for In-vitro Diagnostic (IVD) use with respiratory specimens such as nasopharyngeal swabs collected from individuals during the acute phase of infection. This assay is performed based on the instructions for use provided by [employer] and additional guidance provided by CDC and FDA. Testing is performed in the [facility] Laboratory within the Department of Pathology and Laboratory Medicine at [facility], certified under the Clinical Laboratory Improvement Amendments [...] fact sheets at the following FDA website: https://www.fda.gov/medical-devices/xvxprszkscd-kraaoty-8482-kumee-22-ldccvqgwe- dqh-cmipoldpbpyhlz-ripvrdm-devices/corpg-polwbrrbqxu-pxtw SARS-Cov-2 RNA Source PATIENT ACCOUNT LIAISON Swab Body Fluid Culture, Aerobic & Anaerobic Abdominal Fluid [[id number]] (Abnormal) Collected: 08/12/211948 Lab Status: Final result Specimen: Abdominal Fluid Updated: 08/16/21 1551 Tissue Culture, Aerobic & Anaerobic Stomach [[id number]] (Abnormal) Collected: 08/12/211948 Lab Status: Final result Specimen: Stomach Updated: 08/20/21 1236 Body Fluid Culture, Aerobic [[id number]] (Abnormal) Collected: 08/12/211948 Lab Status: Final result Specimen: Abdominal Fluid Updated: 08/16/21 1319 Body Fluid Culture -- Moderate mixed Gram Positive organisms including Coagulase negative Staphylococcus species Susceptibilities previously reported Gram Stain -- Cytocentrifuge Gram Stain performed Neutrophils seen Many Gram Positive Cocci seen Results called to and read back by Dilip rojas 08/12/21 22:08:54 WS Anaerobic Culture [[id number]] Collected: 08/12/211948 Lab Status: Final result Specimen: Abdominal Fluid Updated: 08/16/21 1551 Anaerobic Culture No anaerobic organisms isolated Tissue culture [[id number]] (Abnormal) (Susceptibility) Collected: 08/12/211948 Lab Status: Final [...] Sensitive [1] Gentamicin is not appropriate for [place]-therapy. Linear View Anaerobic Culture [[id number]] (Abnormal) (Susceptibility) Collected: 08/12/21 1949 Lab Status: Final result Specimen: Stomach Updated: 08/18/21 1355 Anaerobic Culture Moderate Finegoldia magna Susceptibility Finegoldia magna MINIMUM INHIBITORY CONCENTRATION Metronidazole Sensitive Penicillin Sensitive Linear View COVID-19 PCR [[id number]] Collected: 08/12/21 1602 Lab Status: Final result [...] using the [employer]plex[employer] COVID-19 Direct Assay by [employer] as authorized by the FDA issued Emergency [...] Department of Pathology and Laboratory Medicine at [facility], certified under the Clinical Laboratory Improvement Amendments [...] fact sheets at the following FDA website: https://www.fda.gov/medical-devices/krdkqdotakk-ebvtgbz-8559-qgsjh-23-krfivflja- zwo-puvgrhlzwizafo-kgycqcl-devices/mexpi-ugzigqtixdv-cjlf SARS-CoV-2 Source PATIENT ACCOUNT LIAISON Swab Abscess/Wound Asp Culture, Aerobic and Anaerobic Deep Wound; Abdomen [[id number]] Collected: 07/23/211536 Lab Status: Final result Specimen: Deep Wound from Abdomen Updated: 07/27/21 1340 Abscess/Wound Aspirate Culture [[id number]] Collected: 07/23/211536 Lab Status: Final result Specimen: Deep Wound from Abdomen Updated: 07/27/21 1029 Abscess/Wound Aspirate Culture -- Normal cutaneous tania isolated from broth culture. No growth on original plates. Gram Stain -- Few Neutrophils seen No microorganisms seen. Anaerobic Culture [[id number]] Collected: 07/23/211536 Lab Status: Final result Specimen: [...] who have questions please contact the health insurance healthcare representative that requested your imaging first. Electronically signed by: Jas Weir MD, [facility] ([phone]), at 08/12/2021 3:53 PM Discharge Physical Examination: [...] Center 09/03/2021 10:30 AM Paloma Mota APRN [facility] SURG [facility] 09/30/2021 1:30 PM Werner Harrell MD [facility] ID [id number] [facility] Outpatient Services/Studies: Referral to Home Health Referral Priority: Routine Referral Type: Home Health Care Referral Reason: Consult, Test & Treat Referred to Provider: [facility] [place] Number of Visits Requested: 999 Special Instructions Given to Patient at Discharge:. An After Visit Summary was printed and given to the patient. Patient Instructions [facility] Department of General Surgery Discharge Instructions [...] with the Surgery nurses. The number is [phone]. - During the night or weekends call the [facility] plant control operator at [phone] and ask to speak to the surgery resident eco industrial development consultant for general surgery. Please note: Your surgeon may not be On Awake Counselor, especially during the night or on weekends, [...] Provider Department Center 09/03/2021 10:30 AM Paloma Mtoa APRN [facility] SURG [facility] 09/30/2021 1:30 PM Werner Harrell MD [facility] ID [id number] [facility] [x] Follow-up appointment with General Surgery has already been scheduled [] A request for a follow-up appointment has been made and you should receive information via phone/mail in the next week. If you do not hear anything, please call the clinic at [phone] to confirmor reschedule. If you need a prior authorization, please call the General Surgery Clinic nurses [phone] for prior authorizations assistance General Instructions None Your care was managed by the Trauma and Acute Care Surgery Team at [facility]. If you have any questions or concerns, please feel free to contact us. Provider Contact Information: General Surgery Scheduling: Nurses line for questions: [facility] (after business hours): CC: Ally Ortiz APRN Noelle Gurjit Mota APRN Signed: Rosmery Moreno MD Department of Surgery 08/22/2021 Acute Care Surgery Pager [phone] documented in this encounter Discharge Instructions Patient InstructionsRosmery Moreno MD - 08/22/2021 8:54 AM EDT [facility] Department of General Surgery Discharge Instructions [...] with the Surgery nurses. The number is [phone]. - During the night or weekends call the [facility] plant control operator at [phone] and ask to speak to the surgery resident eco industrial development consultant for general surgery. Please note: Your surgeon may not be On Awake Counselor, especially during the night or on weekends, [...] Center 09/03/2021 10:30 AM Paloma Mota APRN [facility] SURG [facility] 09/30/2021 1:30 PM Werner Harrell MD [facility] ID [id number] [facility] [x] Follow-up appointment with General Surgery has already been scheduled [] A request for a follow-up appointment has been made and you should receive information via phone/mail in the next week. If you do not hear anything, please call the clinic at [phone] to confirmor reschedule. If you need a prior authorization, please call the General Surgery Clinic nurses [phone] for prior authorizations assistance documented in this [...] WOUND OR DEHISCENCE, EXTENSIVE OR COMPLICATED, TRUNK [facility] FOLLOW-UP NEEDED: Does pt need to f-u with surgeon or PATIENT ACCOUNT LIAISON (please indicate reason if attending provider): Yes, PATIENT ACCOUNT LIAISON How soon should TACS f/u be? 2 [...] abdominal wall hernia and wound vac change. 6/2: no changes 08/16: vac reinforced in the [...] Fluid Culture, Aerobic & Anaerobic Abdominal Fluid [[id number]] (Abnormal) Collected: 08/12/211948 Lab Status: Preliminary result Specimen: Abdominal Fluid Updated: 08/14/21 1059 Tissue Culture, Aerobic & Anaerobic Stomach [[id number]] (Abnormal) Collected: 08/12/211948 Lab Status: Preliminary result Specimen: Stomach Updated: 08/15/21 0949 Body Fluid Culture, Aerobic [[id number]] (Abnormal) Collected: 08/12/211948 Lab Status: Preliminary result Specimen: Abdominal Fluid Updated: 08/14/21 1059 Body Fluid Culture -- Moderate mixed Gram Positive organisms including Coagulase negative Staphylococcus species Gram Stain -- Cytocentrifuge Gram Stain performed Neutrophils seen Many Gram Positive Cocci seen Results called to and read back by Dilip rojas 08/12/21 22:08:54 WS Anaerobic Culture [[id number]] Collected: 08/12/211948 Lab Status: Preliminary result Specimen: Abdominal Fluid Updated: 08/13/21 1135 Anaerobic Culture No anaerobic organisms isolated to date Tissue culture [[id number]] (Abnormal) (Susceptibility) Collected: 08/12/211948 Lab Status: Preliminary [...] Sensitive [1] Gentamicin is not appropriate for [place]-therapy. Linear View A/P: 61 year old female [...] Moreno MD 08/21/21 Acute Care Surgery Pager: [phone] Attending Addendum I have seen and examined [...] 27.9) performed by Miryam Wiley MD at [facility] MAIN OR ??? PRO COLONOSCOPY, DIAGNOSTIC N/A 08/18/2019 COLONOSCOPY, DIAGNOSTIC performed by Emigdio Lanier MD at [facility] ENDOSCOPY ??? PRO CYSTOSCOPY, INSERT URETERAL STENT Right 09/14/2019 CYSTO, STENT PLACEMENT INTRAOP, TEMPORARY (WRVU 2.82) performed by Werner Fournier MD at [facility] OR ? ? PRO DEBRIDEMENT MUSCLE AND FASCIA 20 SQ CM/< Midline 08/15/2021 DEBRIDEMENT SKIN, SUBCU, MUSCLE, ABDOMEN (WRVU 2.7) performed by Olya Daniel MD at [facility] OR ? ? PRO DEBRIDEMENT SUBCUTANEOUS TISSUE 20 SQCM/< Midline 08/17/2021 DEBRIDEMENT SKIN AND SUBCU, FIRST 20 SQ CM, ABDOMEN (WRVU 1.01) performed by Negro Watters MD [facility] OR ??? PRO EXPLORATION OF ABDOMEN N/A 04/25/2020 @EXPLORATORY LAPAROTOMY, WITH/WITHOUT BIOPSY(S) (WRVU 12.54) performed by Liberty Swann MD at [facility] OR ??? PRO IMPLANT MESH HERNIA REPAIR/DEBRIDEMENT CLOSURE N/A 2021 IMPLANT MESH FOR INCISIONAL OR VENTRAL HERNIA REPAIR (WRVU 4.88) performed by Negro Watters MD at [facility] OR ??? PRO INCISION AND DRAINAGE ABSCESS SIMPLE/SINGLE N/A 08/12/2021 I & D ABSCESS, SIMPLE OR SINGLE, TRUNK (WRVU 1.22) performed by Joshua Che MD at [facility] OR ??? PRO MOBILIZE SPLENIC FLEX N/A 09/14/2019 @MOBILIZATION OF SPLENIC FLEXURE (WRVU 2.23) performed by Miryam Wiley MD at [facility] OR ??? PRO OMENTAL FLAP, INTRA-ABDOMINAL 09/14/2019 @OMENTAL FLAP, INTRA-ABDOMINAL (WRVU 6.54) performed by Miryam Wiley MD at [facility] OR ??? PRO REPAIR RECURR INCIS HERNIA, DEONTE N/A 04/25/2020 HERNIA REPAIR, VENTRAL OR INCISIONAL, RECURRENT, INCARCERATED (WRVU 15.53) performed by Liberty Swann MD at [facility] OR ??? PRO REPAIR RECURR INCIS HERNIA, DEONTE Left 04/25/2021 HERNIA REPAIR, VENTRAL OR INCISIONAL, RECURRENT, INCARCERATED (WRVU 15.53) performed by Loco White MD at [facility] OR ??? PRO REPAIR RECURR INCIS HERNIA, DEONTE N/A 2021 HERNIA REPAIR, VENTRAL OR INCISIONAL, RECURRENT, INCARCERATED (WRVU 15.53) performed by Negro Watters MD at [facility] MAIN OR ??? PRO SEC CLSR SURG WOUND/DEHSN EXTENSIVE/COMPLICATED Midline 08/19/2021 SECONDARY CLOSURE SURGICAL WOUND OR DEHISCENCE, EXTENSIVE OR COMPLICATED, TRUNK (WRVU 12.04) performed by Liberty Swann MD at [facility] MAIN OR ??? PRO SIGMOIDOSCOPY, DIAGNOSTIC N/A 09/14/2019 SIGMOIDOSCOPY, FLEXIBLE W/WO SPECIMEN BY BRUSHING OR WASHING (WRVU 0.84) performed by Miryam Wiley MD at [facility] MAIN OR ??? TUBAL LIGATION Social History: [...] anything that requires bending but uses a elementary educator for picking things up from the floor, a sock aid when she wears socks, and toilet bidet for BM hygiene. Family manages chiropractor assistant, shopping and cooking. Pt uses a rollator [...] WFL Vision & Perception: WNL/WFL corrective lenses time clock mechanic Communication/Hearing: WFL Musculoskeletal: Hand dominance: right Strength/AROM: [...] and measurable assessment of functional outcome. Pager: [phone] Patricia Rai OTR/L Occupational Therapy Rehabilitation Department Werner Harrell MD - 08/20/2021 6:40 PM EDT INFECTIOUS DISEASE FOLLOW-UP NOTE Patient ID: Jahaira Montgomery Room: [address] [place] [phone] Active ID Issue(s): Abdominal SSTI infection involving [...] do not hesitate to page ID RED [phone] with any questions or concerns. Werner Harrell MD Infectious Diseases Fellow Pager #: [phone] 08/20/2021 6:22 PM Associated attestation - Liberty Tracy MD - 08/21/2021 9:42 AM EDT I have seen and examined the patient and discussed the assessment and plan with the fellow. I reviewed the fellow's note and I agree with the documented findings and recommendations. Liberty Tracy MD ID Staff Physician Posrha Santos RN - 08/20/2021 2:52 PM EDT RN/MIGDALIA has updated [employer] rep/[facility] and [place] [facility]. Pt will NOT be discharged home with VAC in place. Merle Freeman) Read, RN RN/CM - Cellphone: [phone] Pager: [phone] Covering Service RN/CM Arvin Lacy, PT - [...] 27.9) performed by Miryam Wiley MD at [facility] MAIN OR ??? PRO COLONOSCOPY, DIAGNOSTIC N/A 08/18/2019 COLONOSCOPY, DIAGNOSTIC performed by Emigdio Lanier MD at [facility] ENDOSCOPY ??? PRO CYSTOSCOPY, INSERT URETERAL STENT Right 09/14/2019 CYSTO, STENT PLACEMENT INTRAOP, TEMPORARY (WRVU 2.82) performed by Werner Fournier MD at [facility] OR ? ? PRO DEBRIDEMENT MUSCLE AND FASCIA 20 SQ CM/< Midline 08/15/2021 DEBRIDEMENT SKIN, SUBCU, MUSCLE, ABDOMEN (WRVU 2.7) performed by Olya Daniel MD at [facility] OR ? ? PRO DEBRIDEMENT SUBCUTANEOUS TISSUE 20 SQCM/< Midline 08/17/2021 DEBRIDEMENT SKIN AND SUBCU, FIRST 20 SQ CM, ABDOMEN (WRVU 1.01) performed by Negro Watters MD [facility] OR ??? PRO EXPLORATORY OF ABDOMEN N/A 04/25/2020 @EXPLORATORY LAPAROTOMY, WITH/WITHOUT BIOPSY(S) (WRVU 12.54) performed by Liberty Swann MD at [facility] MAIN OR ??? PRO IMPLANT MESH HERNIA REPAIR/DEBRIDEMENT CLOSURE N/A 2021 IMPLANT MESH FOR INCISIONAL OR VENTRAL HERNIA REPAIR (WRVU 4.88) performed by Negro Watters MD at [facility] OR ??? PRO INCISION AND DRAINAGE ABSCESS SIMPLE/SINGLE N/A 08/12/2021 I & D ABSCESS, SIMPLE OR SINGLE, TRUNK (WRVU 1.22) performed by Joshua Che MD at [facility] OR ??? PRO MOBILIZE SPLENIC FLEX N/A 09/14/2019 @MOBILIZATION OF SPLENIC FLEXURE (WRVU 2.23) performed by Miryam Wiley MD at [facility] OR ??? PRO OMENTAL FLAP, INTRA-ABDOMINAL 09/14/2019 @OMENTAL FLAP, INTRA-ABDOMINAL (WRVU 6.54) performed by Miryam Wiley MD at [facility] OR ??? PRO REPAIR RECURR INCIS HERNIA, DEONTE N/A 04/25/2020 HERNIA REPAIR, VENTRAL OR INCISIONAL, RECURRENT, INCARCERATED (WRVU 15.53) performed by Liberty Swann MD at [facility] OR ??? PRO REPAIR RECURR INCIS HERNIA, DEONTE Left 04/25/2021 HERNIA REPAIR, VENTRAL OR INCISIONAL, RECURRENT, INCARCERATED (WRVU 15.53) performed by Loco White MD at [facility] OR ??? PRO REPAIR RECURR INCIS HERNIA, DEONTE N/A 2021 HERNIA REPAIR, VENTRAL OR INCISIONAL, RECURRENT, INCARCERATED (WRVU 15.53) performed by Negro Watters MD at [facility] OR ??? PRO SEC CLSR SURG WOUND/DEHSN EXTENSIVE/COMPLICATED Midline 08/19/2021 SECONDARY CLOSURE SURGICAL WOUND OR DEHISCENCE, EXTENSIVE OR COMPLICATED, TRUNK (WRVU 12.04) performed by Liberty Swann MD at [facility] OR ??? PRO SIGMOIDOSCOPY, DIAGNOSTIC N/A 09/14/2019 SIGMOIDOSCOPY, FLEXIBLE W/WO SPECIMEN BY BRUSHING OR WASHING (WRVU 0.84) performed by Miryam Wiley MD at [facility] OR ??? TUBAL LIGATION Social History: Pt [...] in this evaluation. Time IN / OUT: 0266-1144 Total Minutes, Physical Therapy: 15 Billing Code: Swetha Lacy, PT Pager: [phone] Physical Therapy Inpatient Rehabilitation Department Ai Cunningham [...] Fluid Culture, Aerobic & Anaerobic Abdominal Fluid [[id number]] (Abnormal) Collected: 08/12/211948 Lab Status: Preliminary result Specimen: Abdominal Fluid Updated: 08/14/21 1059 Tissue Culture, Aerobic & Anaerobic Stomach [[id number]] (Abnormal) Collected: 08/12/211948 Lab Status: Preliminary result Specimen: Stomach Updated: 08/15/21 0949 Body Fluid Culture, Aerobic [[id number]] (Abnormal) Collected: 08/12/211948 Lab Status: Preliminary result Specimen: Abdominal Fluid Updated: 08/14/21 1059 Body Fluid Culture -- Moderate mixed Gram Positive organisms including Coagulase negative Staphylococcus species Gram Stain -- Cytocentrifuge Gram Stain performed Neutrophils seen Many Gram Positive Cocci seen Results called to and read back by Dilip rojas 08/12/21 22:08:54 WS Anaerobic Culture [[id number]] Collected: 08/12/211948 Lab Status: Preliminary result Specimen: Abdominal Fluid Updated: 08/13/21 1135 Anaerobic Culture No anaerobic organisms isolated to date Tissue culture [[id number]] (Abnormal) (Susceptibility) Collected: 08/12/211948 Lab Status: Preliminary [...] Sensitive [1] Gentamicin is not appropriate for [place]-therapy. Linear View A/P: 61 year old female [...] SSI HEME: DVT ppx with lovenox ID: Ning, dale MSK: RADHA PPX: PPI, IS, SCDs LINES: PIV DISPO: Floor status, Attempt Cardiopulmonary Resuscitation - Inpatient Rosmery Moreno MD 08/20/21 Acute Care Surgery Pager: [phone] Attending Addendum I have seen and examined [...] Fluid Culture, Aerobic & Anaerobic Abdominal Fluid [[id number]] (Abnormal) Collected: 08/12/211948 Lab Status: Preliminary result Specimen: Abdominal Fluid Updated: 08/14/21 1059 Tissue Culture, Aerobic & Anaerobic Stomach [[id number]] (Abnormal) Collected: 08/12/211948 Lab Status: Preliminary result Specimen: Stomach Updated: 08/15/21 0949 Body Fluid Culture, Aerobic [[id number]] (Abnormal) Collected: 08/12/211948 Lab Status: Preliminary result Specimen: Abdominal Fluid Updated: 08/14/21 1059 Body Fluid Culture -- Moderate mixed Gram Positive organisms including Coagulase negative Staphylococcus species Gram Stain -- Cytocentrifuge Gram Stain performed Neutrophils seen Many Gram Positive Cocci seen Results called to and read back by Dilip rojas 08/12/21 22:08:54 WS Anaerobic Culture [[id number]] Collected: 08/12/211948 Lab Status: Preliminary result Specimen: Abdominal Fluid Updated: 08/13/21 1135 Anaerobic Culture No anaerobic organisms isolated to date Tissue culture [[id number]] (Abnormal) (Susceptibility) Collected: 08/12/211948 Lab Status: Preliminary [...] Sensitive [1] Gentamicin is not appropriate for [place]-therapy. Linear View A/P: 61 year old female [...] Moreno MD 08/19/21 Acute Care Surgery Pager: [phone] Attending Addendum I have seen and examined [...] Fluid Culture, Aerobic & Anaerobic Abdominal Fluid [[id number]] (Abnormal) Collected: 08/12/211948 Lab Status: Preliminary result Specimen: Abdominal Fluid Updated: 08/14/21 1059 Tissue Culture, Aerobic & Anaerobic Stomach [[id number]] (Abnormal) Collected: 08/12/211948 Lab Status: Preliminary result Specimen: Stomach Updated: 08/15/21 0949 Body Fluid Culture, Aerobic [[id number]] (Abnormal) Collected: 08/12/211948 Lab Status: Preliminary result Specimen: Abdominal Fluid Updated: 08/14/21 1059 Body Fluid Culture -- Moderate mixed Gram Positive organisms including Coagulase negative Staphylococcus species Gram Stain -- Cytocentrifuge Gram Stain performed Neutrophils seen Many Gram Positive Cocci seen Results called to and read back by Dilip rojas 08/12/21 22:08:54 WS Anaerobic Culture [[id number]] Collected: 08/12/211948 Lab Status: Preliminary result Specimen: Abdominal Fluid Updated: 08/13/21 1135 Anaerobic Culture No anaerobic organisms isolated to date Tissue culture [[id number]] (Abnormal) (Susceptibility) Collected: 08/12/211948 Lab Status: Preliminary [...] Sensitive [1] Gentamicin is not appropriate for [place]-therapy. Linear View A/P: 61 year old female with history as above admitted for abdominal wall abscess now s/p I&D inOR and vac placement. - Continue ning flagyaneli. ID consult, appreciate recommendations - Cultures with [...] SSI HEME: DVT ppx with lovenox ID: Ning, dale MSK: RADHA PPX: PPI, IS, SCDs LINES: PIV DISPO: Floor status, Attempt Cardiopulmonary Resuscitation - Inpatient John Reyes MD 08/18/21 Acute Care Surgery Pager: [phone] SURGICAL ATTENDING NOTE: Pt seen and examined [...] Fluid Culture, Aerobic & Anaerobic Abdominal Fluid [[id number]] (Abnormal) Collected: 08/12/211948 Lab Status: Preliminary result Specimen: Abdominal Fluid Updated: 08/14/21 1059 Tissue Culture, Aerobic & Anaerobic Stomach [[id number]] (Abnormal) Collected: 08/12/211948 Lab Status: Preliminary result Specimen: Stomach Updated: 08/15/21 0949 Body Fluid Culture, Aerobic [[id number]] (Abnormal) Collected: 08/12/211948 Lab Status: Preliminary result Specimen: Abdominal Fluid Updated: 08/14/21 1059 Body Fluid Culture -- Moderate mixed Gram Positive organisms including Coagulase negative Staphylococcus species Gram Stain -- Cytocentrifuge Gram Stain performed Neutrophils seen Many Gram Positive Cocci seen Results called to and read back by Dilip rojas 08/12/21 22:08:54 WS Anaerobic Culture [[id number]] Collected: 08/12/211948 Lab Status: Preliminary result Specimen: Abdominal Fluid Updated: 08/13/21 1135 Anaerobic Culture No anaerobic organisms isolated to date Tissue culture [[id number]] (Abnormal) (Susceptibility) Collected: 08/12/211948 Lab Status: Preliminary [...] Sensitive [1] Gentamicin is not appropriate for [place]-therapy. Linear View A/P: 61 year old female [...] Moreno MD 08/17/21 Acute Care Surgery Pager: [phone] SURGICAL ATTENDING NOTE: Pt seen and examined [...] for vancomycin trough 20.1 Micro: Tissue culture [[id number]] (Abnormal) Collected: 08/12/211948 Lab Status: Preliminary result Specimen: Stomach Updated: 08/15/21948 Tissue Culture Moderate Coagulase negative Staphylococcus species??Abnormal?? [...] Moreno MD 08/16/21 Acute Care Surgery Pager: [phone] SURGICAL ATTENDING NOTE: Pt seen and examined [...] Fluid Culture, Aerobic & Anaerobic Abdominal Fluid [[id number]] (Abnormal) Collected: 08/12/211948 Lab Status: Preliminary result Specimen: Abdominal Fluid Updated: 08/14/21 1059 Tissue Culture, Aerobic & Anaerobic Stomach [[id number]] (Abnormal) Collected: 08/12/211948 Lab Status: Preliminary result Specimen: Stomach Updated: 08/15/21 0949 Body Fluid Culture, Aerobic [[id number]] (Abnormal) Collected: 08/12/211948 Lab Status: Preliminary result Specimen: Abdominal Fluid Updated: 08/14/21 1059 Body Fluid Culture -- Moderate mixed Gram Positive organisms including Coagulase negative Staphylococcus species Gram Stain -- Cytocentrifuge Gram Stain performed Neutrophils seen Many Gram Positive Cocci seen Results called to and read back by Dilip rojas 08/12/21 22:08:54 WS Anaerobic Culture [[id number]] Collected: 08/12/211948 Lab Status: Preliminary result Specimen: Abdominal Fluid Updated: 08/13/21 1135 Anaerobic Culture No anaerobic organisms isolated to date Tissue culture [[id number]] (Abnormal) (Susceptibility) Collected: 08/12/211948 Lab Status: Preliminary [...] Sensitive [1] Gentamicin is not appropriate for [place]-therapy. Linear View A/P: 61 year old female [...] Reyes MD 08/15/21 Acute Care Surgery Pager: [phone] Ralph Abdullahi RN - 08/15/2021 6:55 AM [...] to monitor, wound vac intact and set [id number], hemodynamically stable, receiving 6L O2 via SFM [...] monitoring]: Purposeful rounding Call glover within reach [facility] Patient-specific fall prevention interventions for sensory deficits provided, if applicable: Lights adjusted to task Non skid socks when OOB CARE PLAN GOAL OUTCOME EVALUATION: Ongoing Loco White MD - 08/14/2021 10:55 AM EDT Acute Care Surgery Inpatient Progress Note ID: Jahaira Montgomrey is a 61 y.o. female with tobacco [...] of abdominal wall abscess. OR findings: - [id number] abscess of abdominal wall over mesh. - [...] normalized K Micro: Body Fluid Culture, Aerobic [[id number]] (Abnormal) Collected: 08/12/211948 Lab Status: Preliminary result Specimen: Abdominal Fluid Updated: 08/14/21 1059 Body Fluid Culture --??Abnormal?? Moderate mixed Gram Positive organisms including Coagulase negative Staphylococcus species ??Abnormal?? Gram Stain --??Abnormal?? Cytocentrifuge Gram Stain performed Neutrophils seen Many Gram Positive Cocci seen Results called to and read back by Dilip rojas ??08/12/21 22:08:54 WS ??Abnormal?? Anaerobic Culture [[id number]] Collected: 08/12/211948 Lab Status: Preliminary result Specimen: Abdominal Fluid Updated: 08/13/21 1135 Anaerobic Culture No anaerobic organisms isolated to date Tissue culture [[id number]] (Abnormal) Collected: 08/12/211948 Lab Status: Preliminary result [...] of abdominal wall abscess. OR findings: - [id number] abscess of abdominal wall over mesh. - [...] normalized K Micro: Body Fluid Culture, Aerobic [[id number]] (Abnormal) Collected: 08/12/211948 Lab Status: Preliminary result Specimen: Abdominal Fluid Updated: 08/12/212208 Gram Stain --??Abnormal?? Cytocentrifuge Gram Stain performed Neutrophils seen Many Gram Positive Cocci seen Results called to and read back by Dilip rojas ??08/12/21 22:08:54 WS ??Abnormal?? Tissue culture [[id number]] (Abnormal) Collected: 08/12/211948 Lab Status: Preliminary result [...] (HbA1c 7.1%), chronic knee pain, diverticulitis s/p Luyc's procedure with reversal 03/2019, incarcerated ventral hernia [...] 27.9) performed by Miryam Wiley MD at [facility] MAIN OR ??? PRO COLONOSCOPY, DIAGNOSTIC N/A 08/18/2019 COLONOSCOPY, DIAGNOSTIC performed by Emigdio Lanier MD at [facility] ENDOSCOPY ??? PRO CYSTOSCOPY, INSERT URETERAL STENT Right 09/14/2019 CYSTO, STENT PLACEMENT INTRAOP, TEMPORARY (WRVU 2.82) performed by Werner Fournier MD at [facility] OR ??? PRO EXPLORATORY OF ABDOMEN N/A 04/25/2020 @EXPLORATORY LAPAROTOMY, WITH/WITHOUT BIOPSY(S) (WRVU 12.54) performed by Liberty Swann MD at [facility] OR ??? PRO IMPLANT MESH HERNIA REPAIR/DEBRIDEMENT CLOSURE N/A 2021 IMPLANT MESH FOR INCISIONAL OR VENTRAL HERNIA REPAIR (WRVU 4.88) performed by Negro Watters MD at [facility] OR ??? PRO MOBILIZE SPLENIC FLEX N/A 09/14/2019 @MOBILIZATION OF SPLENIC FLEXURE (WRVU 2.23) performed by Miryam Wiley MD at [facility] MAIN OR ??? PRO OMENTAL FLAP, INTRA-ABDOMINAL 09/14/2019 @OMENTAL FLAP, INTRA-ABDOMINAL (WRVU 6.54) performed by Miryam Wiley MD at [facility] MAIN OR ??? PRO REPAIR RECURR INCIS HERNIA, DEONTE N/A 04/25/2020 HERNIA REPAIR, VENTRAL OR INCISIONAL, RECURRENT, INCARCERATED (WRVU 15.53) performed by Liberty Swann MD at [facility] OR ??? PRO REPAIR RECURR INCIS HERNIA, DEONTE Left 04/25/2021 HERNIA REPAIR, VENTRAL OR INCISIONAL, RECURRENT, INCARCERATED (WRVU 15.53) performed by Loco White MD at [facility] OR ??? PRO REPAIR RECURR INCIS HERNIA, DEONTE N/A 2021 HERNIA REPAIR, VENTRAL OR INCISIONAL, RECURRENT, INCARCERATED (WRVU 15.53) performed by Negro Watters MD at [facility] OR ??? PRO SIGMOIDOSCOPY, DIAGNOSTIC N/A 09/14/2019 SIGMOIDOSCOPY, FLEXIBLE W/WO SPECIMEN BY BRUSHING OR WASHING (WRVU 0.84) performed by Miryam Wiley MD at [facility] MAIN OR ??? TUBAL LIGATION MEDICATIONS: Medication [...] Tamayo MD 08/12/2021 General Surgery consult pager #[phone] I saw and evaluated the patient with [...] EDT 1924: Pt. Arrived from OR to CO22. Monitors on, alarms active and audible. 2049: [...] (WITH DIFF) REQUEST FOR BLOOD GAS DRAW ([facility]) BASIC METABOLIC PANEL (NON-FASTING) BLOOD GAS 2 [...] left unit via wheelchair accompanied by the ASSOCIATE FINANCIAL PLANNER, along with personal belongings. Care Management Discharge [...] information for follow-up [facility], [place] [address] [place] [id number] Transportation: family or friend will provide Functional [...] Merle Santos RN (Jonas) RN/CM - Cellphone: [phone] Pager: [phone] Covering Service RN/CM Plan of Care - [...] GEE drain care. Patient stated that her aehdth-fl-ljz will do it when she gets home. Sawqvm-cu-btx has done it before. 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 Active bowel sounds, loose/creamy stool. Refused [...] Pt NPO for OR debridement / closure. [facility] 1535 - Pt down to OR. [...] Swann MD - 08/19/2021 5:19 PM EDT [facility] Operative Note Patient Name: Jahaira Montgomery : [id number] MR#: [id number] Case Date: 08/19/2021 Surgeon: Surgeon(s) and Role: [...] Merle Santos RN RN (Jonas)/CM - Cellphone: [phone] Pager: [phone] Covering Service RN/CM Plan of Care - Pablo Cancino RN - 08/18/2021 5:16 PM EDT OUTCOME EVALUATION NOTE: ?? OUTCOME SUMMARY: ?? Pt A&Ox4. Vanco troph critical this AM-MD and pharmacy notified-ningo held per pharmacy instructions and MD aware. [...] coloration. Pulses palpable. Bowel sounds normoactive-passing flatus. LBM??6/-offered suppository but pt declined. VSS. WCTM.? PLAN [...] AM EDT Clinical Pharmacist Note-Vanc Jahaira Montgomery [id number] 1960 Jahaira Montgomery is a 61 y.o. [...] have. Alternately, during off-hours you may call [phone] to contact a pharmacist. Kaye Peña RPH Pager [phone] Plan of Care - Clarissa Hay RN [...] Aly MD - 08/17/2021 12:09 PM EDT [facility] Operative Note Patient Name: Jahaira Montgomery : [id number] MR#: [id number] Case Date: 08/17/2021 Surgeon: Surgeon(s) and Role: [...] Services: Wound care, Registered Nurse Agency Referrals: [facility] for RN, OT and KCI for [...] below findings per operative note: Findings: - [id number] abscess of abdominal wall over mesh. - [...] One white sponge and one black sponge placed.??[id number] wound.?? At bedside interview, Jahaira reports that [...] Social History: She lives with brother and ivmaxl-dx-bei in [facility]. They own several cats and dogs. [...] Bhatt DO ID Fellow Red Team Pager: [phone] Infectious Diseases Attending I saw the patient with the infectious diseases fellow. I have made some modifications and agree withthe presentation of data and the assessment and plan as outlined above. The patient appears to understand the plan and also the challenges we face with sterilizing necessary mesh. Viviana Topete MD Professor, Department of Medicine Page [phone] minutes of this 55 minute visit were spent on the floor/unit in counseling or coordination of care with the patient, regarding treatment of infection as detailed in note above. Consult Note - Alberto Murrieta, [facility] - 08/16/2021 7:06 AM EDT Clinical Pharmacist Note-Vanc Jahaira Montgomery [id number] 1960 Jahaira Montgomery is a 61 y.o. [...] have. Alternately, during off-hours you may call [phone] to contact a pharmacist. ALBERTO MURRIETA [facility] Pager [phone] Plan of Care - Pablo Cancino RN [...] Operative Note Patient Name: Jahaira Montgomery : [id number] MR#: [id number] Case Date: 08/15/2021 Surgeon: Surgeon(s) and Role: [...] from the original note were not included. [facility] Operative Note Patient Name: Jahaira Montgomery : [id number] MR#: [id number] Case Date: 08/15/2021 Surgeon: Surgeon(s) and Role: [...] white sponge and one black sponge placed. [id number] wound. Anesthesia: General Estimated Blood Loss: 20 [...] appt to remove shelley and came back [facility] yesterday with abdominal pain d/t surgical wound infection. Pt is now s/p I&D in OR and wound vac placement. To OR tomorrow for wound vac change. Source of Information: Team, bedside nurse, medical record, and Patient Introduced self/reviewed role; services accepted. Reason for Hospitalization: Wound infection after surgery Last COVID test: Lab Results Component Value Date COVID19 Not Detected 04/27/2021 [id number] Not Detected 08/12/2021 Past medical History: Past [...] sibling would be surrogate decision maker per [place] surrogate decision making law. (Only good for 180 days) Any patient receiving care at [facility] must abide by [place] law. The hierarchy for surrogate decision making [...] (i) The agent with financial power of expansion envelope maker hand or a conservator appointed in accordance with [...] Current DME: none Home Address confirmed as: [address] [place] [address] Social & Family Supports: Extended Emergency Contact [...] Insurance: N/A Prescription Coverage: Yes Preferred Pharmacy: [facility] [address] - [address] [place] [address] [place], [place] - [address] [facility] [address] [facility] [address] [facility] [address] Status: Patient is a : No Primary Care Provider: Ally Ortiz, COMPUTER HARDWARE DEVELOPER [phone] Patient/Caregiver Goals of Treatment: feel better Potential Needs for Transition of Care: home health care Agency Referrals: I have met with the patient to: ?? discuss discharge planning needs. ?? provide the [facility], Office of Care Management letter from the Construction Driver pertaining to rehab referrals. ?? provide a letter describing our affiliations within [facility] and educate about their right to choose where referrals are sent. ?? provide a list of Home Health Agencies / Durable Medical Equipment vendors which serve their preferred geographic area. ?? provided patient with [facility] Star Quality Rating handout. They have requested referrals to: [facility] [address] PHONE: [phone] FAX: [phone] Name: ALFREDOFor wound vac Tel.#:[phone] ext [phone] fax#: Equipment ordered:wound vac Note routed to a Horse Trekking Guide who will communicate referrals to facilities and [...] Case Management Consult Note - Manuel King [facility] - 08/13/2021 12:00 PM EDT [...] Che MD - 08/12/2021 6:51 PM EDT [facility] Operative Note Patient Name: Jahaira Montgomery : [id number] MR#: [id number] Case Date: 08/12/2021 Surgeon: Surgeon(s) and Role: * Joshua Che MD - Primary * Charly Agrawal MD - Resident Preoperative diagnosis: wound infection Postoperative diagnosis: wound infection Procedure(s) (LRB): I & D ABSCESS, SIMPLE OR SINGLE, TRUNK (WRVU 1.22) (N/A) Findings: - [id number] abscess of abdominal wall over mesh. - [...] 09/30/2021 Office Visit General Surgery Paloma Mota, COMPUTER HARDWARE DEVELOPER [facility] GENERAL SURGERY [place], [place] [address] (Wo rk) 09/30/2021 Office Visit Infectious Diseases Werner Harrell MD [facility] [address] [place], [place] [address] (Wo rk) Scheduled Referrals Name [...] Signature POC Glucose 105 65 - 199 [facility] mg/dL [facility] Comment: Supplemental ranges: <140 mg/dL before meals <180 mg/dL all other times of the day Specimen Anatomical Collection Method Collection Time Receive d Time (Source) Location / / Volume Laterality Blood 08/22/2021 7:45 AM 06/09/202 2 7:45 EDT AM EDT Ai Arriaza MD POINT OF CARE TEST ORDERABLE S Performing Organization Address City/State/[place] [address] POCT Glucose (08/22/2021 3:38 AM EDT) athologist Signature POC Glucose 96 65 - 199 [place] mg/dL [facility] Comment: Supplemental ranges: <140 mg/dL before meals <180 mg/dL all other times of the day Specimen Anatomical Collection Method Collection Time Receive d Time (Source) Location / / Volume Laterality Blood 08/22/2021 3:38 AM 2 3:38 EDT AM EDT Ai Arriaza MD POINT OF CARE TEST ORDERABLE S Performing Organization Address City/State/[place] [address] POCT Glucose (08/22/2021 2:04 AM EDT) athologist Signature POC Glucose 106 65 - 199 [place] mg/dL [facility] Comment: Supplemental ranges: <140 mg/dL before meals <180 mg/dL all other times of the day Specimen Anatomical Collection Method Collection Time Receive d Time (Source) Location / / Volume Laterality Blood 08/22/2021 2:04 AM 2 2:04 EDT AM EDT Ai Arriaza MD POINT OF CARE TEST ORDERABLE S Performing Organization Address City/State/ZIP Code Phon e Number [place] [id number] POCT Glucose (08/21/2021 10:19 PM EDT) athologist Signature POC Glucose 106 65 - 199 [place] mg/dL [facility] Comment: Supplemental ranges: <140 mg/dL before meals <180 mg/dL all other times of the day Specimen Anatomical Collection Method Collection Time Receive d Time (Source) Location / / Volume Laterality Blood 08/21/2021 10:19 08/21/2021 PM EDT 10:19 PM EDT Ai Arriaza MD POINT OF CARE TEST ORDERABLE S Performing Organization Address City/State/[place] [address] POCT Glucose (08/21/2021 3:38 PM EDT) P athologist Signature POC Glucose 97 65 - 199 [place] mg/dL [facility] Comment: Supplemental ranges: <140 mg/dL before meals <180 mg/dL all other times of the day Specimen Anatomical Collection Method Collection Time Receive d Time (Source) Location / / Volume Laterality Blood 08/21/2021 3:38 PM 3:38 EDT PM EDT Ai Arriaza MD POINT OF CARE TEST ORDERABLE S Performing Organization Address City/State/[place] [address] POCT Glucose (08/21/2021 11:22 AM EDT) athologist Signature POC Glucose 144 65 - 199 [place] mg/dL [facility] Comment: Supplemental ranges: <140 mg/dL before meals <180 mg/dL all other times of the day Specimen Anatomical Collection Method Collection Time Receive d Time (Source) Location / / Volume Laterality Blood 08/21/2021 11:22 08/21/2021 AM EDT 11:22 AM EDT Loco White MD POINT OF CARE TEST ORDERABLE S Performing Organization Address City/State/[place] [address] POCT Glucose (08/21/2021 7:44 AM EDT) athologist Signature POC Glucose 105 65 - 199 [place] mg/dL [facility] Comment: Supplemental ranges: <140 mg/dL before meals <180 mg/dL all other times of the day Specimen Anatomical Collection Method Collection Time Receive d Time (Source) Location / / Volume Laterality Blood 08/21/2021 7:44 AM 7:44 EDT AM EDT Loco White MD POINT OF CARE TEST ORDERABLE S Performing Organization Address City/State/ZIP Code Phon e Number [place] [id number] POCT Glucose (08/21/2021 4:08 AM EDT) athologist Signature POC Glucose 109 65 - 199 [place] mg/dL [facility] Comment: Supplemental ranges: <140 mg/dL before meals <180 mg/dL all other times of the day Specimen Anatomical Collection Method Collection Time Receive d Time (Source) Location / / Volume Laterality Blood 08/21/2021 4:08 AM 4:08 EDT AM EDT Loco White MD POINT OF CARE TEST ORDERABLE S Performing Organization Address City/[facility]/ZIP Code Phon e Number [place] [id number] POCT Glucose (08/20/2021 11:31 PM EDT) athologist Signature POC Glucose 113 65 - 199 [place] mg/dL [facility] Comment: Supplemental ranges: <140 mg/dL before meals <180 mg/dL all other times of the day Specimen Anatomical Collection Method Collection Time Receive d Time (Source) Location / / Volume Laterality Blood 08/20/2021 11:31 08/20/2021 PM EDT 11:31 PM EDT Loco White MD POINT OF CARE TEST ORDERABLE S Performing Organization Address City/State/ZIP Code Phon e Number [place] [id number] POCT Glucose (08/20/2021 8:13 PM EDT) athologist Signature POC Glucose 118 65 - 199 [place] mg/dL [facility] Comment: Supplemental ranges: <140 mg/dL before meals <180 mg/dL all other times of the day Specimen Anatomical Collection Method Collection Time Receive d Time (Source) Location / / Volume Laterality Blood 08/20/2021 8:13 PM 8:13 EDT PM EDT Loco White MD POINT OF CARE TEST ORDERABLE S Performing Organization Address City/State/[place] [address] POCT Glucose (08/20/2021 3:30 PM EDT) athologist Signature POC Glucose 118 65 - 199 [facility] Comment: Supplemental ranges: <140 mg/dL before meals <180 mg/dL all other times of the day Specimen Anatomical Collection Method Collection Time Receive d Time (Source) Location / / Volume Laterality Blood 08/20/2021 3:30 PM 3:30 EDT PM EDT Loco White MD POINT OF CARE TEST ORDERABLE S Performing Organization Address City/State/ZIP Code Phon e Number [address] POCT Glucose (08/20/2021 11:09 AM EDT) athologist Signature POC Glucose 143 65 - 199 [facility] mg/dL [facility] Comment: Supplemental ranges: <140 mg/dL before meals <180 mg/dL all other times of the day Specimen Anatomical Collection Method Collection Time Receive d Time (Source) Location / / Volume Laterality Blood 08/20/2021 11:09 08/20/2021 AM EDT 11:09 AM EDT Loco White MD POINT OF CARE TEST ORDERABLE S Performing Organization Address City/State/[place] [address] Vancomycin, trough (08/20/2021 10:31 AM EDT) athologist Signature Vanc Trough 19.3 mg/L [facility] Comment: Therapeutic range for complicated [...] Address City/State/ZIP Code Phon e Number [address] POCT Glucose (08/20/2021 7:27 AM EDT) athologist Signature POC Glucose 113 65 - 199 [place] mg/dL [facility] Comment: Supplemental ranges: <140 mg/dL before meals <180 mg/dL all other times of the day Specimen Anatomical Collection Method Collection Time Receive d Time (Source) Location / / Volume Laterality Blood 08/20/2021 7:27 AM 2 7:27 EDT AM EDT Loco White MD POINT OF CARE TEST ORDERABLE S Performing Organization Address City/[facility]/ZIP Code Phon e Number [address] POCT Glucose (08/20/2021 5:14 AM EDT) athologist Signature POC Glucose 128 65 - 199 [place] mg/dL [facility] Comment: Supplemental ranges: <140 mg/dL before meals <180 mg/dL all other times of the day Specimen Anatomical Collection Method Collection Time Receive d Time (Source) Location / / Volume Laterality Blood 08/20/2021 5:14 AM 2 5:14 EDT AM EDT Loco White MD POINT OF CARE TEST ORDERABLE S Performing Organization Address City/State/ZIP Code Phon e Number [address] POCT Glucose (08/19/2021 11:34 PM EDT) athologist Signature POC Glucose 174 65 - 199 [place] mg/dL [facility] Comment: Supplemental ranges: <140 mg/dL before meals <180 mg/dL all other times of the day Specimen Anatomical Collection Method Collection Time Receive d Time (Source) Location / / Volume Laterality Blood 08/19/2021 11:34 08/19/2021 PM EDT 11:34 PM EDT Loco White MD POINT OF CARE TEST ORDERABLE S Performing Organization Address City/State/[place] [address] POCT Glucose (08/19/2021 8:26 PM EDT) athologist Signature POC Glucose 153 65 - 199 [place] mg/dL [facility] Comment: Supplemental ranges: <140 mg/dL before meals <180 mg/dL all other times of the day Specimen Anatomical Collection Method Collection Time Receive d Time (Source) Location / / Volume Laterality Blood 08/19/2021 8:26 PM 2 8:26 EDT PM EDT Loco White MD POINT OF CARE TEST ORDERABLE S Performing Organization Address City/State/[place] [address] POCT Glucose (08/19/2021 6:53 PM EDT) athologist Signature POC Glucose 150 65 - 199 [place] mg/dL [facility] Comment: Supplemental ranges: <140 mg/dL before meals <180 mg/dL all other times of the day Specimen Anatomical Collection Method Collection Time Receive d Time (Source) Location / / Volume Laterality Blood 08/19/2021 6:53 PM 2 6:53 EDT PM EDT Loco White MD POINT OF CARE TEST ORDERABLE S Performing Organization Address City/State/[place] [address] POCT Glucose (08/19/2021 12:02 PM EDT) athologist Signature POC Glucose 106 65 - 199 [place] mg/dL [facility] Comment: Supplemental ranges: <140 mg/dL before meals <180 mg/dL all other times of the day Specimen Anatomical Collection Method Collection Time Receive d Time (Source) Location / / Volume Laterality Blood 08/19/2021 12:02 08/19/2021 PM EDT 12:02 PM EDT Loco White MD POINT OF CARE TEST ORDERABLE S Performing Organization Address City/[facility]/[place] [address] POCT Glucose (08/19/2021 7:57 AM EDT) P athologist Signature POC Glucose 105 65 - 199 [facility] mg/dL [facility] Comment: Supplemental ranges: <140 mg/dL before meals <180 mg/dL all other times of the day Specimen Anatomical Collection Method Collection Time Receive d Time (Source) Location / / Volume Laterality Blood 08/19/2021 7:57 AM 2 7:57 EDT AM EDT Loco White MD POINT OF CARE TEST ORDERABLE S Performing Organization Address City/[facility]/[place] [address] Scan, Peripheral Blood (08/19/2021 5:50 AM EDT) [facility] Cybereason Method Time Signature Plat Estimate Increased [facility] RBC Morphology Normal [facility] Platelet Clumps Present [facility] [facility] Specimen Anatomical Collection Method Collection Time Receive d Time (Source) Location / / Volume Laterality Blood 08/19/2021 5:50 AM 2 6:07 EDT AM EDT Resulting Agency Comment Spec In Lab Lisandro Treviño MD HEMATOLOGY ORDERABLES Performing Organization Address City/[facility]/[place] [address] (ABNORMAL) Differential, Automated (08/19/2021 5:50 AM EDT) [facility] [employer] Method Time Signature Neutrophils % 39.5 % [facility] Neutr Abs (ANC) 4.74 1.70 - [facility] 6.10 [facility] x10(3)/[facility] LABORATORY Lymphocytes % 30.7 % [facility] Lymphocytes Abs 3.7 (H) 0.9 - 3.2 [facility] x10(3)/[facility] LABORATORY Monocytes % 7.6 % [facility] Monocyte Abs 0.9 0.3 - 0.9 [facility] x10(3)/[facility] LABORATORY Eosinophils % 20.8 % [facility] Eosinophils Abs 2.5 (H) 0.0 - 0.4 [facility] x10(3)/[facility] LABORATORY Basophils % 0.7 % [facility] Basophils Abs 0.1 0.0 - 0.1 [facility] x10(3)/[facility] LABORATORY Immature Gran % 0.70 % [facility] Comment: Immature granulocytes(IG's)percentage an d absolute count will include metamyelocytes, myelocytes, and promyelo cytes. Blood smears from CBCs yielding IG's will be scanned manually for concor dance. If this scan disagrees with the automated IG or if promyelocytes are not ed, a manual differential will be performed. Shantell Gran Abs 0.09 (H) 0.00 - 0.04 x10(3)/[facility] LABORATORY Specimen Anatomical Collection Method Collection Time Receive d Time (Source) Location / / Volume Laterality Blood 08/19/2021 5:50 AM 6:07 EDT AM EDT Resulting Agency Comment Spec In Lab Lisandro Treviño MD HEMATOLOGY ORDERABLES Performing Organization Address City/State/[place] [address] (ABNORMAL) Hemogram (08/19/2021 5:50 AM EDT) Analysis Performed At Patho logist Time Signature WBC 12.0 (H) 4.0 - 9.5 [facility] x10(3)/[facility] LABORATORY RBC 4.40 4.00 - [facility] 5.21 [facility] x10(6)/[facility] LABORATORY Hemoglobin 12.9 11.7 - [facility] 15.5 g/dL [facility] Hematocrit 40.0 35.7 - [facility] 45.8 % [facility] MCV 90.9 82.6 - [facility]4 [facility] LAB[facility] MCH 29.3 27.1 - [place]OCK 32.0 pg [facility] MCHC 32.3 31.7 - [place] HODGE 35.0 g/dL [facility] Platelets 419 (H) 145 - 357 [facility] x10(3)/[facility] LABORATORY RDWSD 42.9 37.0 - [place] H[place] 46.0 [facility] LABORATORY RDWCV 13.1 11.5 - [place] NAVEEN 14.1 % [facility] MPV 9.1 7.6 - 12.9 [place] HODGE [facility] LABORATORY nRBC % Auto 0.0 % [facility] nRBC Abs Auto 0.000 0.000 - [place] 0.000 [facility] x10(3)/[facility] LABORATORY Specimen Anatomical Collection Method Collection Time Receive d Time (Source) Location / / Volume Laterality Blood 08/19/2021 5:50 AM 2 6:07 EDT AM EDT Resulting Agency Comment Spec In Lab Lisandro Treviño MD HEMATOLOGY ORDERABLES Performing Organization Address City/State/ZIP Code Phon e Number [address] (ABNORMAL) Phosphorus (08/19/2021 5:50 AM EDT) P athologist Signature Phosphorus 5.2 (H) 2.5 - 4.5 [place] NAVEEN mg/dL [facility] Specimen Anatomical Collection Method Collection Time Receive d Time (Source) Location / / Volume Laterality Blood 08/19/2021 5:50 AM 2 6:07 EDT AM EDT Resulting Agency Comment Spec In Lab Loco White MD CHEMISTRY ORDERABLES Performing Organization Address City/State/ZIP Code Phon e Number [address] Magnesium (08/19/2021 5:50 AM EDT) P athologist Signature Magnesium 0.77 0.69 - 1.07 [facility] mmol/L [facility] Specimen Anatomical Collection Method Collection Time Receive d Time (Source) Location / / Volume Laterality Blood 08/19/2021 5:50 AM 6:07 EDT AM EDT Resulting Agency Comment Spec In Lab Loco White MD CHEMISTRY ORDERABLES Performing Organization Address City/State/[place] [address] (ABNORMAL) Basic Metabolic Panel (non-fasting) (08/19/2021 5:50 AM EDT) athologist Signature Glucose Lvl 115 65 - 199 [facility] mg/dL [facility] Comment: Diabetes: >=200 mg/dL plus symp toms BUN 20 (H) 8 - 18 mg/dL [facility] Creatinine 0.78 0.70 - 1.20 mg/dL [facility] Sodium 136 135 - 145 mmol/L [facility] Potassium 4.2 3.5 - 5.0 mmol/L [facility] Comment: Please note: ??Patients with WBC >100,00 0 may have falsely elevated Potassium levels. ??For accurate Potassium quantif ication in these patients send serum separator tube (gold top) for subsequent determinations. ??Contact the Clinical Chemistry Laboratory if there are any qu estions. Chloride 100 98 - 107 mmol/L [facility] CO2 22 22 - 31 mmol/L [facility] Anion Gap 14 5 - 15 mmol/L [facility]ORY Calcium 10.1 8.5 - 10.5 mg/dL [facility] Estimated GFR 83 >=60 mL/min/1.73 m?? [facility] Comment: This patient? s estimated [...] White MD CHEMISTRY ORDERABLES Performing Organization Address City/[facility]/[place] [address] (ABNORMAL) CRP, acute inflammation (08/19/2021 5:50 AM EDT) athologist Signature CRP 40.2 (H) <=4.9 mg/L [facility] Comment: result rechecked-KS Specimen Anatomical Collection Method Collection Time Receive d Time (Source) Location / / Volume Laterality Blood 08/19/2021 5:50 AM 2 6:07 EDT AM EDT Resulting Agency Comment Spec In Lab Loco White MD CHEMISTRY ORDERABLES Performing Organization Address City/[facility]/[place] [address] POCT Glucose (08/19/2021 4:39 AM EDT) athologist Signature POC Glucose 119 65 - 199 [facility] Comment: Supplemental ranges: <140 mg/dL before meals <180 mg/dL all other times of the day Specimen Anatomical Collection Method Collection Time Receive d Time (Source) Location / / Volume Laterality Blood 08/19/2021 4:39 AM 2 4:39 EDT AM EDT Loco White MD POINT OF CARE TEST ORDERABLE S Performing Organization Address City/[facility]/ZIP [facility] [place] [address] POCT Glucose (08/19/2021 12:03 AM EDT) athologist Signature POC Glucose 122 65 - 199 [facility] mg/[facility] Comment: Supplemental ranges: <140 mg/dL before meals <180 mg/dL all other times of the day Specimen Anatomical Collection Method Collection Time Receive d Time (Source) Location / / Volume Laterality Blood 08/19/2021 12:03 08/19/2021 AM EDT 12:03 AM EDT Loco White MD POINT OF CARE TEST ORDERABLE S Performing Organization Address City/State/[place] [address] POCT Glucose (08/18/2021 7:54 PM EDT) athologist Signature POC Glucose 119 65 - 199 [place] NAVEEN mg/dL [facility] Comment: Supplemental ranges: <140 mg/dL before meals <180 mg/dL all other times of the day Specimen Anatomical Collection Method Collection Time Receive d Time (Source) Location / / Volume Laterality Blood 08/18/2021 7:54 PM 2 7:54 EDT PM EDT Loco White MD POINT OF CARE TEST ORDERABLE S Performing Organization Address City/State/[place] [address] POCT Glucose (08/18/2021 5:22 PM EDT) athologist Signature POC Glucose 115 65 - 199 [place]AVEEN mg/dL [facility] Comment: Supplemental ranges: <140 mg/dL before meals <180 mg/dL all other times of the day Specimen Anatomical Collection Method Collection Time Receive d Time (Source) Location / / Volume Laterality Blood 08/18/2021 5:22 PM 2 5:22 EDT PM EDT Loco White MD POINT OF CARE TEST ORDERABLE S Performing Organization Address City/State/[place] [address] POCT Glucose (08/18/2021 12:05 PM EDT) athologist Signature POC Glucose 103 65 - 199 [place]AVEEN mg/dL [facility] Comment: Supplemental ranges: <140 mg/dL before meals <180 mg/dL all other times of the day Specimen Anatomical Collection Method Collection Time Receive d Time (Source) Location / / Volume Laterality Blood 08/18/2021 12:05 08/18/2021 PM EDT 12:05 PM EDT Loco White MD POINT OF CARE TEST ORDERABLE S Performing Organization Address City/[facility]/[place] [address] (ABNORMAL) Vancomycin, trough (08/18/2021 8:45 AM EDT) P athologist Signature Vanc Trough 25.4 mg/L [facility] (Critical) [facility] Comment: called by ARR; read [...] White MD CHEMISTRY ORDERABLES Performing Organization Address City/[facility]/[place] [address] POCT Glucose (08/18/2021 8:28 AM EDT) P athologist Signature POC Glucose 103 65 - 199 [facility] Comment: Supplemental ranges: <140 mg/dL before meals <180 mg/dL all other times of the day Specimen Anatomical Collection Method Collection Time Receive d Time (Source) Location / / Volume Laterality Blood 08/18/2021 8:28 AM 2 8:28 EDT AM EDT Loco White MD POINT OF CARE TEST ORDERABLE S Performing Organization Address City/[facility]/[place] [address] POCT Glucose (08/18/2021 4:20 AM EDT) athologist Signature POC Glucose 109 65 - 199 [place]AVE[place] mg/dL [facility] Comment: Supplemental ranges: <140 mg/dL before meals <180 mg/dL all other times of the day Specimen Anatomical Collection Method Collection Time Receive d Time (Source) Location / / Volume Laterality Blood 08/18/2021 4:20 AM 4:20 EDT AM EDT Loco White MD POINT OF CARE TEST ORDERABLE S Performing Organization Address City/State/ZIP Code Phon e Number [address] POCT Glucose (08/17/2021 11:32 PM EDT) athologist Signature POC Glucose 100 65 - 199 [place]AVE[place] mg/dL [facility] Comment: Supplemental ranges: <140 mg/dL before meals <180 mg/dL all other times of the day Specimen Anatomical Collection Method Collection Time Receive d Time (Source) Location / / Volume Laterality Blood 08/17/2021 11:32 08/17/2021 PM EDT 11:32 PM EDT Loco White MD POINT OF CARE TEST ORDERABLE S Performing Organization Address City/State/[place] [address] POCT Glucose (08/17/2021 8:02 PM EDT) athologist Signature POC Glucose 118 65 - 199 [place]AVE[place] mg/dL [facility] Comment: Supplemental ranges: <140 mg/dL before meals <180 mg/dL all other times of the day Specimen Anatomical Collection Method Collection Time Receive d Time (Source) Location / / Volume Laterality Blood 08/17/2021 8:02 PM 8:02 EDT PM EDT Loco White MD POINT OF CARE TEST ORDERABLE S Performing Organization Address City/State/[place] [address] POCT Glucose (08/17/2021 4:52 PM EDT) athologist Signature POC Glucose 87 65 - 199 [place]AVE[place] mg/dL [facility] Comment: Supplemental ranges: <140 mg/dL before meals <180 mg/dL all other times of the day Specimen Anatomical Collection Method Collection Time Receive d Time (Source) Location / / Volume Laterality Blood 08/17/2021 4:52 PM 4:52 EDT PM EDT Loco White MD POINT OF CARE TEST ORDERABLE S Performing Organization Address City/State/[place] [address] POCT Glucose (08/17/2021 12:26 PM EDT) athologist Signature POC Glucose 103 65 - 199 [place]AVE[place] mg/dL [facility] Comment: Supplemental ranges: <140 mg/dL before meals <180 mg/dL all other times of the day Specimen Anatomical Collection Method Collection Time Receive d Time (Source) Location / / Volume Laterality Blood 08/17/2021 12:26 08/17/2021 PM EDT 12:26 PM EDT Loco White MD POINT OF CARE TEST ORDERABLE S Performing Organization Address City/State/[place] [address] POCT Glucose (08/17/2021 11:20 AM EDT) athologist Signature POC Glucose 112 65 - 199 [place]AVEEN mg/dL [facility] Comment: Supplemental ranges: <140 mg/dL before meals <180 mg/dL all other times of the day Specimen Anatomical Collection Method Collection Time Receive d Time (Source) Location / / Volume Laterality Blood 08/17/2021 11:20 08/17/2021 AM EDT 11:20 AM EDT Loco White MD POINT OF CARE TEST ORDERABLE S Performing Organization Address City/State/[place] [address] POCT Glucose (08/17/2021 7:53 AM EDT) athologist Signature POC Glucose 111 65 - 199 [place] mg/dL [facility] Comment: Supplemental ranges: <140 mg/dL before meals <180 mg/dL all other times of the day Specimen Anatomical Collection Method Collection Time Receive d Time (Source) Location / / Volume Laterality Blood 08/17/2021 7:53 AM 2 7:53 EDT AM EDT Loco White MD POINT OF CARE TEST ORDERABLE S Performing Organization Address City/State/ZIP Code Phon e Number [address] POCT Glucose (08/17/2021 4:12 AM EDT) athologist Signature POC Glucose 121 65 - 199 [place] mg/dL [facility] Comment: Supplemental ranges: <140 mg/dL before meals <180 mg/dL all other times of the day Specimen Anatomical Collection Method Collection Time Receive d Time (Source) Location / / Volume Laterality Blood 08/17/2021 4:12 AM 2 4:12 EDT AM EDT Loco White MD POINT OF CARE TEST ORDERABLE S Performing Organization Address City/State/[place] [address] POCT Glucose (08/16/2021 11:06 PM EDT) athologist Signature POC Glucose 118 65 - 199 [place] NAVEEN mg/dL [facility] Comment: Supplemental ranges: <140 mg/dL before meals <180 mg/dL all other times of the day Specimen Anatomical Collection Method Collection Time Receive d Time (Source) Location / / Volume Laterality Blood 08/16/2021 11:06 08/16/2021 PM EDT 11:06 PM EDT Loco White MD POINT OF CARE TEST ORDERABLE S Performing Organization Address City/State/ZIP Code Phon e Number [address] POCT Glucose (08/16/2021 8:27 PM EDT) athologist Signature POC Glucose 116 65 - 199 [facility] Comment: Supplemental ranges: <140 mg/dL before meals <180 mg/dL all other times of the day Specimen Anatomical Collection Method Collection Time Receive d Time (Source) Location / / Volume Laterality Blood 08/16/2021 8:27 PM 2 8:27 EDT PM EDT Loco White MD POINT OF CARE TEST ORDERABLE S Performing Organization Address City/State/[place] [address] (ABNORMAL) CRP, acute inflammation (08/16/2021 5:44 PM EDT) athologist Signature CRP 54.8 (H) <=4.9 mg/L [facility] Specimen Anatomical Collection Method Collection Time Receive d Time (Source) Location / / Volume Laterality Blood 08/16/2021 5:44 PM 2 5:51 EDT PM EDT Resulting Agency Comment Spec In Lab Loco White MD CHEMISTRY ORDERABLES Performing Organization Address City/State/[place] [address] POCT Glucose (08/16/2021 4:38 PM EDT) athologist Signature POC Glucose 135 65 - 199 [place] NAVEEN mg/dL [facility] Comment: Supplemental ranges: <140 mg/dL before meals <180 mg/dL all other times of the day Specimen Anatomical Collection Method Collection Time Receive d Time (Source) Location / / Volume Laterality Blood 08/16/2021 4:38 PM 2 4:38 EDT PM EDT Loco White MD POINT OF CARE TEST ORDERABLE S Performing Organization Address City/State/[place] [address] POCT Glucose (08/16/2021 12:22 PM EDT) athologist Signature POC Glucose 105 65 - 199 [facility]/dL [facility] Comment: Supplemental ranges: <140 mg/dL before meals <180 mg/dL all other times of the day Specimen Anatomical Collection Method Collection Time Receive d Time (Source) Location / / Volume Laterality Blood 08/16/2021 12:22 08/16/2021 PM EDT 12:22 PM EDT Loco White MD POINT OF CARE TEST ORDERABLE S Performing Organization Address City/[facility]/[place] [address] POCT Glucose (08/16/2021 7:38 AM EDT) athologist Signature POC Glucose 113 65 - 199 [facility] mg/dL [facility] Comment: Supplemental ranges: <140 mg/dL before meals <180 mg/dL all other times of the day Specimen Anatomical Collection Method Collection Time Receive d Time (Source) Location / / Volume Laterality Blood 08/16/2021 7:38 AM 2 7:38 EDT AM EDT Loco White MD POINT OF CARE TEST ORDERABLE S Performing Organization Address City/[facility]/[place] [address] POCT Glucose (08/16/2021 4:26 AM EDT) athologist Signature POC Glucose 126 65 - 199 [facility] mg/dL [facility] Comment: Supplemental ranges: <140 mg/dL before meals <180 mg/dL all other times of the day Specimen Anatomical Collection Method Collection Time Receive d Time (Source) Location / / Volume Laterality Blood 08/16/2021 4:26 AM 2 4:26 EDT AM EDT Loco White MD POINT OF CARE TEST ORDERABLE S Performing Organization Address City/[facility]/[place] [address] (ABNORMAL) Vancomycin, trough (08/16/2021 4:07 AM EDT) P athologist Signature Vanc Trough 20.1 mg/L [facility] (Critical) [facility] Comment: Called by: , Read [...] White MD CHEMISTRY ORDERABLES Performing Organization Address City/[facility] Phon e Number [address] POCT Glucose (08/16/2021 12:24 AM EDT) P athologist Signature POC Glucose 131 65 - 199 [facility] mg/dL [facility] Comment: Supplemental ranges: <140 mg/dL before meals <180 mg/dL all other times of the day Specimen Anatomical Collection Method Collection Time Receive d Time (Source) Location / / Volume Laterality Blood 08/16/2021 12:24 08/16/2021 AM EDT 12:24 AM EDT Loco White MD POINT OF CARE TEST ORDERABLE S Performing Organization Address City/[facility]/[place] [address] POCT Glucose (08/15/2021 7:15 PM EDT) P athologist Signature POC Glucose 112 65 - 199 [facility] mg/dL [facility] Comment: Supplemental ranges: <140 mg/dL before meals <180 mg/dL all other times of the day Specimen Anatomical Collection Method Collection Time Receive d Time (Source) Location / / Volume Laterality Blood 08/15/2021 7:15 PM 7:15 EDT PM EDT Loco White MD POINT OF CARE TEST ORDERABLE S Performing Organization Address City/State/ZIP Code Phon e Number [address] POCT Glucose (08/15/2021 4:58 PM EDT) P athologist Signature POC Glucose 116 65 - 199 [place]AVEEN mg/dL [facility] Comment: Supplemental ranges: <140 mg/dL before meals <180 mg/dL all other times of the day Specimen Anatomical Collection Method Collection Time Receive d Time (Source) Location / / Volume Laterality Blood 08/15/2021 4:58 PM 4:58 EDT PM EDT Loco White MD POINT OF CARE TEST ORDERABLE S Performing Organization Address City/State/[place] [address] COVID-19 PCR (08/15/2021 3:31 PM EDT) Patholo gist Method Time Signature SARS-CoV-2 Not Detected Not Detected NELLA RNA [facility] Comment: This result should [...] diagnosis of COVID-19 is performed using the [employer] VERONICA S-CoV-2 Assay as authorized by the FDA Emergency Use Authorization (EUA). This EUA assay is intended for In-vitro Diagnostic (IVD) use with respiratory sp ecimens such as nasopharyngeal swabs collected from individuals during the ac nez perce phase of infection. This assay is performed based on the instructions for use provided by [employer] and additional guidance provided by CDC and FDA. Testing is performed in the [facility] Laboratory within the Department of Pathology and Laboratory Medicine at [facility], certified under the Clinical Laboratory Improvement [...] fact sheets at the following FDA website: https://www.fda.gov/medical-devices/qnrqsnrteyv-odamvxd-5066-fypfh-55-oyvnfgfwb- vfe-mrohgdffwanhmo-stygehs-devices/jwygy-xcggjphdnxp-dapu SARS-Cov-2 RNA Source PATIENT ACCOUNT LIAISON Swab [facility] Specimen (Source) Anatomical Collection Method Collection Time Re ceived Time Location / / Volume Laterality Nasopharyngeal Swab 08/15/2021 3:31 08/15 PM EDT 9:54 PM EDT Comment: Symptoms->Surveillance Resulting Agency Comment Spec In Lab Loco White MD MICROBIOLOGY - GENERAL ORDER ARLEY Performing Organization Address City/State/[place] [address] POCT Glucose (08/15/2021 12:42 PM EDT) athologist Signature POC Glucose 149 65 - 199 [place] NAVEEN mg/dL [facility] Comment: Supplemental ranges: <140 mg/dL before meals <180 mg/dL all other times of the day Specimen Anatomical Collection Method Collection Time Receive d Time (Source) Location / / Volume Laterality Blood 08/15/2021 12:42 08/15/2021 PM EDT 12:42 PM EDT Loco White MD POINT OF CARE TEST ORDERABLE S Performing Organization Address City/State/ZIP Code Phon e Number [address] POCT Glucose (08/15/2021 6:21 AM EDT) athologist Signature POC Glucose 105 65 - 199 [place] mg/dL [facility] Comment: Supplemental ranges: <140 mg/dL before meals <180 mg/dL all other times of the day Specimen Anatomical Collection Method Collection Time Receive d Time (Source) Location / / Volume Laterality Blood 08/15/2021 6:21 AM 6:21 EDT AM EDT Loco White MD POINT OF CARE TEST ORDERABLE S Performing Organization Address City/State/ZIP Code Phon e Number [address] Phosphorus (08/15/2021 5:40 AM EDT) athologist Signature Phosphorus 3.0 2.5 - 4.5 [place]AVE[place] mg/dL [facility] Specimen Anatomical Collection Method Collection Time Receive d Time (Source) Location / / Volume Laterality Blood Venous Draw / 08/15/2021 5:40 AM 08/16/19 5:46 Unknown EDT AM EDT Resulting Agency Comment Spec In Lab Lisandro Treviño MD CHEMISTRY ORDERABLES Performing Organization Address City/State/[place] [address] Magnesium (08/15/2021 5:40 AM EDT) athologist Signature Magnesium 0.81 0.69 - 1.07 [facility] mmol/L [facility] LABOR[facility]ORY Specimen Anatomical Collection Method Collection Time Receive d Time (Source) Location / / Volume Laterality Blood Venous Draw / 08/15/2021 5:40 AM 08/16/19 5:46 Unknown EDT AM EDT Resulting Agency Comment Spec In Lab Lisandro Treviño MD CHEMISTRY ORDERABLES Performing Organization Address City/State/[place] [address] (ABNORMAL) Basic Metabolic Panel (non-fasting) (08/15/2021 5:40 AM EDT) athologist Signature Glucose Lvl 106 65 - 199 [facility] mg/dL [facility] Comment: Diabetes: >=200 mg/dL plus symp toms BUN 17 8 - 18 mg/dL [facility] Creatinine 0.44 (L) 0.70 - 1.20 mg/dL [facility] LABORATORY Sodium 137 135 - 145 mmol/L [facility] Potassium 3.5 3.5 - 5.0 mmol/L [facility] Comment: Please note: ??Patients with WBC >100,00 0 may have falsely elevated Potassium levels. ??For accurate Potassium quantif ication in these patients send serum separator tube (gold top) for subsequent determinations. ??Contact the Clinical Chemistry Laboratory if there are any qu estions. Chloride 101 98 - 107 mmol/L [facility] CO2 28 22 - 31 mmol/L [facility] Anion Gap 8 5 - 15 mmol/L [facility] LABORATORY Calcium 8.6 8.5 - 10.5 mg/dL [facility] Estimated GFR 110 >=60 mL/min/1.73 m?? [facility] Comment: This patient? s estimated [...] White MD CHEMISTRY ORDERABLES Performing Organization Address City/[facility] [[email or web address]] [place] [address] POCT Glucose (08/14/2021 11:26 PM EDT) athologist Signature POC Glucose 112 65 - 199 [place]AVEEN mg/dL [facility] Comment: Supplemental ranges: <140 mg/dL before meals <180 mg/dL all other times of the day Specimen Anatomical Collection Method Collection Time Receive d Time (Source) Location / / Volume Laterality Blood 08/14/2021 11:26 08/14/2021 PM EDT 11:26 PM EDT Loco White MD POINT OF CARE TEST ORDERABLE S Performing Organization Address City/[facility]/[place] [address] POCT Glucose (08/14/2021 7:39 PM EDT) P athologist Signature POC Glucose 119 65 - 199 [place]AVEEN mg/dL [facility] Comment: Supplemental ranges: <140 mg/dL before meals <180 mg/dL all other times of the day Specimen Anatomical Collection Method Collection Time Receive d Time (Source) Location / / Volume Laterality Blood 08/14/2021 7:39 PM 7:39 EDT PM EDT Loco White MD POINT OF CARE TEST ORDERABLE S Performing Organization Address City/[facility]/ZIP Code Phon e Number [address] POCT Glucose (08/14/2021 4:34 PM EDT) athologist Signature POC Glucose 118 65 - 199 [facility] mg/dL [facility] Comment: Supplemental ranges: <140 mg/dL before meals <180 mg/dL all other times of the day Specimen Anatomical Collection Method Collection Time Receive d Time (Source) Location / / Volume Laterality Blood 08/14/2021 4:34 PM 4:34 EDT PM EDT Loco White MD POINT OF CARE TEST ORDERABLE S Performing Organization Address City/State/ZIP Code Phon e Number [address] Vancomycin, trough (08/14/2021 12:01 PM EDT) athologist Signature Vanc Trough 10.5 mg/L [facility] Comment: Therapeutic range for complicated [...] Address City/State/ZIP Code Phon e Number [address] POCT Glucose (08/14/2021 11:32 AM EDT) athologist Signature POC Glucose 107 65 - 199 [facility] mg/dL [facility] Comment: Supplemental ranges: <140 mg/dL before meals <180 mg/dL all other times of the day Specimen Anatomical Collection Method Collection Time Receive d Time (Source) Location / / Volume Laterality Blood 08/14/2021 11:32 08/14/2021 AM EDT 11:32 AM EDT Loco White MD POINT OF CARE TEST ORDERABLE S Performing Organization Address City/State/ZIP Code Phon e Number [address] POCT Glucose (08/14/2021 8:03 AM EDT) P athologist Signature POC Glucose 139 65 - 199 [facility] mg/dL [facility] Comment: Supplemental ranges: <140 mg/dL before meals <180 mg/dL all other times of the day Specimen Anatomical Collection Method Collection Time Receive d Time (Source) Location / / Volume Laterality Blood 08/14/2021 8:03 AM 2 8:03 EDT AM EDT Loco White MD POINT OF CARE TEST ORDERABLE S Performing Organization Address City/[facility]/[place] [address] EKG 12 Lead (08/14/2021 4:30 AM EDT) Component Value Ref Range Test Analysis Performed Pathologis t Method Time At Signature Ventricular rate 46 BPM MUSE SYSTEM Atrial Rate 46 BPM MUSE SYSTEM P-R Interval 114 ms MUSE SYSTEM QRS Duration 80 ms MUSE SYSTEM Q-T Interval 518 ms MUSE SYSTEM QTC Calculated 453 ms MUSE SYSTEM (Bezet) Calculated P [place] 49 degrees MUSE SYSTEM Calculated R [place] 28 degrees MUSE SYSTEM Calculated T [place] 72 degrees MUSE SYSTEM INTERPRETATION Marked sinus bradycardia MUSE SYSTEM Abnormal ECG When compared with ECG of 18-SEP-2019 11:29, Vent. rate has decreased BY ??24 BPM I personally reviewed the tracing and edited the fellows int erpretation Confirmed by fellow Senser, Cuauhtemoc Liu ([id number]) on 08/14/2021 2:2 6:50 PM Confirmed by [...] Signature Glucose Lvl 155 65 - 199 [facility] mg/dL [facility] Comment: Diabetes: >=200 mg/dL plus symp toms BUN 25 (H) 8 - 18 mg/dL [facility] Creatinine 0.66 (L) 0.70 - 1.20 mg/dL [facility] LABORATORY Sodium 139 135 - 145 mmol/L [facility] Potassium 3.1 (L) 3.5 - 5.0 mmol/L [facility] Comment: Please note: ??Patients with WBC >100,00 0 may have falsely elevated Potassium levels. ??For accurate Potassium quantif ication in these patients send serum separator tube (gold top) for subsequent determinations. ??Contact the Clinical Chemistry Laboratory if there are any qu estions. Chloride 102 98 - 107 mmol/L [facility] CO2 Not Perf 22 - [facility] Comment: Add-on request. Sample too old to perform test. Anion Gap Unable to Calculate 5 - 15 mmol/L [facility] Calcium 8.6 8.5 - 10.5 mg/dL [facility] Estimated GFR 97 >=60 mL/min/1.73 m?? [facility] Comment: This patient? s estimated [...] Moreno MD CHEMISTRY ORDERABLES Performing Organization Address City/[facility]/ZIP Code Phon e Number [address] Phosphorus (08/14/2021 3:47 AM EDT) P athologist Signature Phosphorus 2.6 2.5 - 4.5 [place] mg/dL [facility] Specimen Anatomical Collection Method Collection Time Receive d Time (Source) Location / / Volume Laterality Blood 08/14/2021 3:47 AM 2 4:13 EDT AM EDT Resulting Agency Comment Spec In Lab Joshua Che MD CHEMISTRY ORDERABLES Performing Organization Address City/[facility]/[place] [address] Magnesium (08/14/2021 3:47 AM EDT) P athologist Signature Magnesium 0.79 0.69 - 1.07 [facility]/L [facility] Specimen Anatomical Collection Method Collection Time Receive d Time (Source) Location / / Volume Laterality Blood 08/14/2021 3:47 AM 2 4:13 EDT AM EDT Resulting Agency Comment Spec In Lab Joshua Che MD CHEMISTRY ORDERABLES Performing Organization Address City/[facility]/[place] [address] POCT Glucose (08/14/2021 2:58 AM EDT) P athologist Signature POC Glucose 159 65 - 199 [facility] NAVEEN mg/dL [facility] Comment: Supplemental ranges: <140 mg/dL before meals <180 mg/dL all other times of the day Specimen Anatomical Collection Method Collection Time Receive d Time (Source) Location / / Volume Laterality Blood 08/14/2021 2:58 AM 2 2:58 EDT AM EDT Loco White MD POINT OF CARE TEST ORDERABLE S Performing Organization Address City/State/[place] [address] POCT Glucose (08/13/2021 9:40 PM EDT) athologist Signature POC Glucose 142 65 - 199 [place] NAVEEN mg/dL [facility] Comment: Supplemental ranges: <140 mg/dL before meals <180 mg/dL all other times of the day Specimen Anatomical Collection Method Collection Time Receive d Time (Source) Location / / Volume Laterality Blood 08/13/2021 9:40 PM 2 9:40 EDT PM EDT Loco White MD POINT OF CARE TEST ORDERABLE S Performing Organization Address City/[facility]/[place] [address] POCT Glucose (08/13/2021 4:44 PM EDT) athologist Signature POC Glucose 136 65 - 199 [place] NAVEEN mg/dL [facility] Comment: Supplemental ranges: <140 mg/dL before meals <180 mg/dL all other times of the day Specimen Anatomical Collection Method Collection Time Receive d Time (Source) Location / / Volume Laterality Blood 08/13/2021 4:44 PM 2 4:44 EDT PM EDT Loco White MD POINT OF CARE TEST ORDERABLE S Performing Organization Address City/State/[place] [address] (ABNORMAL) POCT Glucose (08/13/2021 1:54 PM EDT) athologist Signature POC Glucose 223 (H) 65 - 199 [place] NAVEEN mg/dL [facility] Comment: Supplemental ranges: <140 mg/dL before meals <180 mg/dL all other times of the day Specimen Anatomical Collection Method Collection Time Receive d Time (Source) Location / / Volume Laterality Blood 08/13/2021 1:54 PM 2 1:54 EDT PM EDT Loco White MD POINT OF CARE TEST ORDERABLE S Performing Organization Address City/State/[place] [address] (ABNORMAL) POCT Glucose (08/13/2021 11:47 AM EDT) P athologist Signature POC Glucose 246 (H) 65 - 199 [facility] mg/dL [facility] Comment: Supplemental ranges: <140 mg/dL before meals <180 mg/dL all other times of the day Specimen Anatomical Collection Method Collection Time Receive d Time (Source) Location / / Volume Laterality Blood 08/13/2021 11:47 08/13/2021 AM EDT 11:47 AM EDT Joshua Che MD POINT OF CARE TEST ORDERABLE S Performing Organization Address City/State/ZIP Code Phon e Number [place] [id number] [facility] LABOR[address]ORY Drive (ABNORMAL) Differential, Automated (08/13/2021 5:54 AM EDT) Patholo gist Method Time Signature Neutrophils % 82.7 % [facility] LABORATORY Neutr Abs (ANC) 10.00 (H) 1.70 - [facility] 6.10 [facility] x10(3)/[facility] LABORATORY Lymphocytes % 12.3 % [facility] LABORATORY Lymphocytes Abs 1.5 0.9 - 3.2 [facility] x10(3)/[facility] LABORATORY Monocytes % 4.1 % [facility] LABORATORY Monocyte Abs 0.5 0.3 - 0.9 [facility] x10(3)/[facility] LABORATORY Eosinophils % 0.2 % [facility] LABORATORY Eosinophils Abs 0.0 0.0 - 0.4 [facility] x10(3)/[facility] LABORATORY Basophils % 0.2 % [facility] LABORATORY Basophils Abs 0.0 0.0 - 0.1 [facility] x10(3)/[facility] LABORATORY Immature Gran % 0.50 % [facility]OR[facility]ORY Comment: Immature granulocytes(IG's)percentage an d absolute count will include metamyelocytes, myelocytes, and promyelo cytes. Blood smears from CBCs yielding IG's will be scanned manually for flor holguin. If this scan disagrees with the automated IG or if promyelocytes are not ed, a manual differential will be performed. Shantell Gran Abs 0.06 (H) 0.00 - 0.04 x10(3)/[facility] LABORATORY Specimen Anatomical Collection Method Collection Time Receive d Time (Source) Location / / Volume Laterality Blood 08/13/2021 5:54 AM 6:05 EDT AM EDT Resulting Agency Comment Spec In Lab Mavis Tamayo MD HEMATOLOGY ORDERABLES Performing Organization Address City/State/[place] [address] (ABNORMAL) Hemogram (08/13/2021 5:54 AM EDT) Analysis Performed At Patho logist Time Signature WBC 12.1 (H) 4.0 - 9.5 [facility] x10(3)/[facility] LABORATORY RBC 3.92 (L) 4.00 - [facility] 5.21 [facility] x10(6)/[facility] LABORATORY Hemoglobin 11.5 (L) 11.7 - [facility] 15.5 g/dL [facility] Hematocrit 36.2 35.7 - [facility] 45.8 % [facility] MCV 92.3 82.6 - [facility] 94.4 [facility] LABORATORY MCH 29.3 27.1 - [facility] NAVEEN 32.0 pg [facility] LABORATORY MCHC 31.8 31.7 - [facility] 35.0 g/dL [facility] Platelets 374 (H) 145 - 357 [facility] x10(3)/[facility] LABORATORY RDWSD 42.4 37.0 - [facility] NAVEEN 46.0 [facility] LABORATORY RDWCV 12.5 11.5 - [facility] NAVEEN 14.1 % [facility] LABORATORY MPV 9.2 7.6 - 12.9 [facility] LABORATORY nRBC % Auto 0.0 % [facility] LABORATORY nRBC Abs Auto 0.000 0.000 - [facility] NAVEEN 0.000 [facility] x10(3)/[facility] LABORATORY Specimen Anatomical Collection Method Collection Time Receive d Time (Source) Location / / Volume Laterality Blood 08/13/2021 5:54 AM 2 6:05 EDT AM EDT Resulting Agency Comment Spec In Lab Mavis Tamayo MD HEMATOLOGY ORDERABLES Performing Organization Address City/State/[place] [address] (ABNORMAL) Hemoglobin A1c (08/13/2021 5:54 AM EDT) Analysis Performed At Patho logist Time Signature Hemoglobin A1C 7.1 (H) 4.3 - 5.6 [facility] LABORATORY Comment: Reference Range: 4.3 - [...] Mellitus, Diabetes Care 2013; 36: Suppl. 1, S67-74 Est Avg Gluc 156 mg/dL [facility] [...] with hemoglobinopathies. Additional resources are available on [facility] website. Adrian DUMONT, Rufus J, Jaylene R, et al. ??Tr anslating the A1C assay into estimated average glucose values. ??Diabetes Care 2008:31(8):0144-6989. Specimen Anatomical Collection Method Collection Time Receive d Time (Source) Location / / Volume Laterality Blood 08/13/2021 5:54 AM 2 6:05 EDT AM EDT Resulting Agency Comment Spec In Lab Joshua Che MD CHEMISTRY ORDERABLES Performing Organization Address City/[facility]/ZIP Code Phon e Number [address] Phosphorus (08/13/2021 5:54 AM EDT) P athologist Signature Phosphorus 3.1 2.5 - 4.5 [facility] mg/dL [facility] LABORATORY Specimen Anatomical Collection Method Collection Time Receive d Time (Source) Location / / Volume Laterality Blood 08/13/2021 5:54 AM 2 6:05 EDT AM EDT Resulting Agency Comment Spec In Lab Joshua Che MD CHEMISTRY ORDERABLES Performing Organization Address City/[facility]/[place] [address] Magnesium (08/13/2021 5:54 AM EDT) P athologist Signature Magnesium 0.80 0.69 - 1.07 [facility] mmol/L [facility] LABORATORY Specimen Anatomical Collection Method Collection Time Receive d Time (Source) Location / / Volume Laterality Blood 08/13/2021 5:54 AM 2 6:05 EDT AM EDT Resulting Agency Comment Spec In Lab Joshua Che MD CHEMISTRY ORDERABLES Performing Organization Address City/[facility]/ZIP [facility] [place] [address] (ABNORMAL) Basic Metabolic Panel (non-fasting) (08/13/2021 5:54 AM EDT) P athologist Signature Glucose Lvl 196 65 - 199 [facility] mg/dL [facility] Comment: Diabetes: >=200 mg/dL plus symp toms BUN 16 8 - 18 mg/dL [facility]ORATORY Creatinine 0.59 (L) 0.70 - 1.20 mg/dL [facility] LABORATORY Sodium 136 135 - 145 mmol/L [facility] LABORATORY Potassium 3.5 3.5 - 5.0 mmol/L [facility]OR[facility]ORY Comment: Please note: ??Patients with WBC >100,00 0 may have falsely elevated Potassium levels. ??For accurate Potassium quantif ication in these patients send serum separator tube (gold top) for subsequent determinations. ??Contact the Clinical Chemistry Laboratory if there are any qu estions. Chloride 99 98 - 107 mmol/L [facility]OR[facility]ORY CO2 26 22 - 31 mmol/L [facility]OR[facility]ORY Anion Gap 11 5 - 15 mmol/L [facility] LABORATORY Calcium 8.7 8.5 - 10.5 mg/dL [facility] LABORATORY Estimated GFR 100 >=60 mL/min/1.73 m?? [facility] Comment: This patient? s estimated [...] Organization Address City/State/[place] [address] (ABNORMAL) Anaerobic Culture (08/12/2021 7:49 PM EDT) [facility] Method Time Signature Anaerobic Moderate NELLA Culture Fineelma NAVEENMARCUS loredoa (A) [facility] LABOR[facility]ORY Organism Juan Jose persaud (A) [facility] LABORATORY Specimen Anatomical Collection Method [...] Address City/State/ZIP Code Phon e Number [address] (ABNORMAL) Tissue culture (08/12/2021 7:49 PM EDT) Component Value Ref Test Analysis Performed At [facility] Range Method Time Signature Tissue Moderate NELLA Culture Coagulase [facility] species (A) LABORATORY Gram Stain Moderate Neutrophils seen MAR Y Moderate Gram Positive Cocci seen KENVIL Results called to and read back by maritza ??08/12/21 21:42:05 [facility] () [facility] LABORATORY Organism Coagulase [facility] negative KENVIL Staphylococcus [facility] species () [facility] LABORATORY Organism Gram Positive [facility] Cocci (A) [facility] LABORATORY Specimen Anatomical Collection Method [...] Comment: Gentamicin is not a ppropriate for [place]-therapy. Coagulase negative staphylococcus Levofloxacin MICROSCAN METH OD [...] - GENERAL ORDER ARLEY Performing Organization Address City/[facility]/ZIP [facility] [place] [address] Anaerobic Culture (08/12/2021 7:49 PM EDT) [facility] Method Time Signature Anaerobic No anaerobic [facility] Culture organisms [facility] LABORATORY Specimen (Source) Anatomical Collection Method Collection Time Re ceived Time Location / / Volume Laterality Abdominal Fluid 08/12/2021 7:49 8:55 PM EDT PM EDT Comment: Abdominal Wall Abscess Fluid Cu lture Resulting Agency Comment Spec In Lab Joshua Che MD MICROBIOLOGY - GENERAL ORDER ARLEY Performing Organization Address [facility] [place] [address] (ABNORMAL) Body Fluid Culture, Aerobic (08/12/2021 7:49 PM EDT) Component Value Ref Test Analysis [facility]formed At [facility] Method Time Signature Body Fluid Moderate mixed Gram Positive organisms including Coagulase negative [facility] Culture Staphylococcus species [facility] Susceptibilities previously reported [facility] ([facility] LABORATORY Gram Stain Cytocentrifuge Gram Stain performed NELLA Neutrophils seen KENVIL Many Gram Positive Cocci seen [facility] Results called to and read back by Dilip rojas ?? 2 22:08:54 [facility] () LABORATORY Organism Coagulase negative NELLA Staphylococcus NAVEEN species (A) [facility] LABORATORY Organism Gram Positive Cocci [facility] (A) [facility] LABORATORY Specimen (Source) Anatomical Collection Method Collection Time Re ceived Time Location / / Volume Laterality Abdominal Fluid 08/12/2021 7:49 8:55 PM EDT PM EDT Comment: Abdominal Wall Abscess Fluid Cu lture Resulting Agency Comment Spec In Lab Joshua Che MD MICROBIOLOGY - GENERAL ORDER ARLEY Performing Organization Address City/[facility] [[email or web address]] Code [place] [address] COVID-19 PCR (08/12/2021 4:02 PM EDT) [facility] Method Time Signature SARS-CoV-2 Not Detected Not Detected NELLA RNA PCR [facility] LABORATORY Comment: This result should [...] using the Simplexa COVID-19 Direct Assay by AcadiaSoftnoemi zhang as authorized by the FDA issued [...] of Pathology and Laboratory Medicine at [facility], certified under the Clinical Laboratory Improvement Amendmen [...] clinical management guidance information are available at [facility] CDC Coronavirus Disease 2019 (COVID-19) webpage under Information fo r Healthcare Professionals (https://www.cdc.gov/coronavirus/2019-nc ov/hcp/index.html). Additional information about this and ot her EUA tests can be found in provider and patient fact sheets at the following FDA website: https://www.fda.gov/medical-devices/igmrsxujssg-nlutngb-4264-ofypc-60-brtcnefdc- kyf-ubutammnbngvar-cpswnim-devices/cnqvi-zuisdkeflez-plvz SARS-CoV-2 Source PATIENT ACCOUNT LIAISON Swab [facility] LABORATORY Specimen (Source) Anatomical Collection Method Collection Time Re ceived Time Location / / Volume Laterality Nasopharyngeal Swab 08/12/2021 4:02 08/12 PM EDT 4:49 PM EDT Comment: Symptoms->Surveillance Resulting Agency Comment Spec In Lab Viviana Camacho MD MICROBIOLOGY - GENERAL ORDER ARLEY Performing Organization Address City/State/[place] [address] Abdomen & Pelvis [...] who have questions please contact the health insurance healthcare representative that requested your imaging first. ? Electronically signed by: Jas chairez MD, [facility] ([phone]), at 08/12/2021 3:53 PM Narrative 08/12/2021 3:53 [...] ho have questions please contact the health insurance healthcare representative that requested your imaging first. Electronically signed by: Jas chairez MD, [facility] ([phone]), at 08/12/2021 3:53 PM Tu Banegas COMPUTER HARDWARE DEVELOPER IMG CT ORDERABLES (ABNORMAL) BLOOD GAS 2 VENOUS (08/12/2021 2:15 PM EDT) Analysis Performed At Path logis Time Signature pH Lan 7.43 (H) 7.32 - [facility] 7.42 [facility] pCO2 Lan 44 41 - 51 [facility] pO2 Lan 29 25 - 40 [facility] HCO3 Lan 28.2 mmol/L [facility] BE Lan 3.8 mmol/L [facility] Hgb Blood Gas 14.2 11.7 - [facility] 15.5 g/dL [facility] O2HB Lan 51.2 % [facility] COHB Lan 5.8 % [facility] Comment: Nonsmokers: 0.5-1.5% COHB Smokers: Variable, but usually less than 10% Toxic: 20-30% COHB Lethal: Greater than 60% COHB METHB Lan 0.2 <=1.5 % [facility] Na Whole Blood 136 135 - 145 mmol/L [facility] K Whole Blood 2.6 (Critical) 3.5 - 5.0 mmol/L M [facility] Comment: Noted by blow mold machine operator. Please note: Patients with WBC >100,000 may have falsely elevated Potassium levels. Contact the Clinical Chemistry L aboratory if there are any questions. ICa Whole Blood 1.19 1.15 - 1.33 mmol/L [facility] Comment: Note: ??Total bilirubin higher than 20 m g/dL may lead to falsely low ionized calcium. CL Whole Blood 97 (L) 98 - 107 mmol/L [facility] Gluc Whole Bld 146 65 - 199 mg/dL [facility] Comment: Diabetes: >=200 mg/dL plus symp toms Lactate WB 1.7 0.5 - 2.2 mmol/L [facility] BGas Source Venous [facility] Specimen Anatomical Collection Method Collection Time Receive d Time (Source) Location / / Volume Laterality Blood 08/12/2021 2:15 PM 2 2:15 EDT PM EDT Viviana Camacho MD CHEMISTRY ORDERABLES Performing Organization Address City/State/[place] [address] (ABNORMAL) Differential, Automated (08/12/2021 2:10 PM EDT) [facility] gist Method Time Signature Neutrophils % 66.7 % [facility] Neutr Abs (ANC) 11.06 (H) 1.70 - [facility] 6.10 [facility] x10(3)/[facility] LABORATORY Lymphocytes % 18.6 % [facility] Lymphocytes Abs 3.1 0.9 - 3.2 [facility] x10(3)[facility] LABORATORY Monocytes % 7.7 % [facility] Monocyte Abs 1.3 (H) 0.3 - 0.9 [facility] x10(3)[facility] LABORATORY Eosinophils % 5.6 % [facility] Eosinophils Abs 0.9 (H) 0.0 - 0.4 [facility] x10(3)[facility] LABORATORY Basophils % 1.0 % [facility] Basophils Abs 0.2 (H) 0.0 - 0.1 [facility] x10(3)[facility] LABORATORY Immature Gran % 0.40 % [facility] Comment: Immature granulocytes(IG's)percentage an d absolute count will include metamyelocytes, myelocytes, and promyelo cytes. Blood smears from CBCs yielding IG's will be scanned manually for concor dance. If this scan disagrees with the automated IG or if promyelocytes are not ed, a manual differential will be performed. [place]ant[place] Gran Abs 0.06 (H) 0.00 - 0.04 x10(3)/[facility] LABORATORY Specimen Anatomical Collection Method Collection Time Receive d Time (Source) Location / / Volume Laterality Blood 08/12/2021 2:10 PM 2:20 EDT PM EDT Resulting Agency Comment Spec In Lab Tu Banegas APRN HEMATOLOGY ORDERABLES Performing Organization Address City/State/ZIP Code Phon e Number [place] [id number] (ABNORMAL) Hemogram (08/12/2021 2:10 PM EDT) Analysis Performed At Patho logist Time Signature WBC 16.6 (H) 4.0 - 9.5 [facility] x10(3)/[facility] LABORATORY RBC 4.60 4.00 - [facility] 5.21 [facility] x10(6)/[facility] LABORATORY Hemoglobin 13.4 11.7 - [facility] g/dL [facility] Hematocrit 40.7 35.7 - [facility] 45.8 % [facility] MCV 88.5 82.6 - [facility] 94.4 [facility]ORY MCH 29.1 27.1 - [place] [facility] 32.0 pg [facility] MCHC 32.9 31.7 - [facility] 35.0 g/dL [facility] Platelets 480 (H) 145 - 357 [facility] x[facility](3)/[facility] LABORATORY RDWSD 41.2 37.0 - [facility] 46.0 [facility] RDWCV 12.6 11.5 - [facility] 14.1 % [facility] MPV 9.2 7.6 - 12.9 [facility] LABORATORY nRBC % Auto 0.0 % [facility] nRBC Abs Auto 0.000 0.000 - [facility] 0.000 [facility] x10(3)/[facility] LABORATORY Specimen Anatomical Collection Method Collection Time Receive d Time (Source) Location / / Volume Laterality Blood 08/12/2021 2:10 PM 2 2:20 EDT PM EDT Resulting Agency Comment Spec In Lab Tu Banegas APRN HEMATOLOGY ORDERABLES Performing Organization Address City/State/[place] [address] (ABNORMAL) Basic Metabolic Panel (non-fasting) (08/12/2021 2:10 PM EDT) athologist Signature Glucose Lvl 147 65 - 199 [facility] mg/dL [facility] Comment: Diabetes: >=200 mg/dL plus symp toms BUN 16 8 - 18 mg/dL [facility] Creatinine 0.64 (L) 0.70 - 1.20 mg/dL [facility] Sodium 135 135 - 145 mmol/L [facility] Potassium 2.7 (Critical) 3.5 - 5.0 mmol/L [facility] Comment: called by EB/read back by Lana Pantoja 5-3 0-22 @ 7285 Please note: ??Patients with WBC >100,00 0 may have falsely elevated Potassium levels. ??For accurate Potassium quantif ication in these patients send serum separator tube (gold top) for subsequent determinations. ??Contact the Clinical Chemistry Laboratory if there are any qu estions. Chloride 96 (L) 98 - 107 mmol/L [facility] CO2 27 22 - 31 mmol/L [facility] Anion Gap 12 5 - 15 mmol/L [facility] Calcium 8.7 8.5 - 10.5 mg/dL [facility] Estimated GFR 98 >=60 mL/min/1.73 m?? [facility] Comment: This patient? s estimated [...] Organization Address City/State/ZIP Code Phon e Number [place] [phone] documented in this encounter [...] S tarting on Thu08/13/21 at 1130, Until Thu08/22/21 at 1409, Low blood sugar, For BG [...] Joshua Mccallum RN)1210 (Given - Provider: Evelia Druham RN)1738 (Given - Provider: Evelia Durham RN)2326 [...] - Provider: Dell Doss)1200 (Due - Provider: Melissa Adt) 0-8 Units, Subcutaneous, 3 TIMES DAILY [...] or Regular (not diet) soda OR If PATIENT ACCOUNT LIAISON O, give 15 gram glucose 40% oral [...] episode. & nbsp; For persistent hypoglycemia, con associate manager longer-acting treatment for the duration of [...] Routine documented in this encounter Care Teams Flash Ranging Crewmember Relationship Specialty Start Date End Date Ally Ortiz APRN PCP - General Internal Medicine 04/24/21 [address] [place] [address] documented as of this encounter
--- OUTSIDE RECORDS SUMMARY | 2021-09-27 14:53 | XMS_ITS | Encounter Summary ---
:1960 Author Organization [facility] [place] [address] Care Team Providers Name Role Phone Ally Ortiz Mary MUNOZ Primary Care Provider Reason for Visit Reason Comments Follow-up Encounter Details Date Type Department Care Team Description 05/09/2021 Office Visit General Surgery at [facility] Paloma Mota, [place] [address] GENERAL SURGERY [place] [id number] (Wo rk) Social History Tobacco Use Types [...] as of this encounter Progress Notes Paloma Mota, DRAG SAWYER - 05/09/2021 11:30 AM EST Jahaira Montgomery presents for surgical follow up. 04/25/21: Repair incarcerated ventral hernia-Rhynhart Findings: Superior hernia defect containing non-obstructed transverse colon. Incarcerated loop of small bowel in inferior hernia defect with distally decompressed bowel. Extensive interloop adhesions of the entire small bowel. All bowel viable. Primary fascial repair with interrupted 0 PDS sutures. Jahaira is feeling well, her fara are quite bothersome to her. She denies any fevers, chills abdominal pain, nausea or vomiting. She tells me she is eating great, moving her bowels and voiding. Denies any diarrhea. She is using her binder and being careful not to lift. EXAM: Non toxic appearing, abdomen soft non tender except over incision, non distended. Incision well approximated and healed beneath intact fara. Fara were removed on exam with the incision remaining well approximated. Steri strips placed. Once fara were removed, any remaining discomfort resolved. Impression/Plan: No evidence of infection, recurrence, or incision breakdown Will see Jahaira back in two weeks for wound check. I gave her a spare binder. I have asked her to wear her binder at all times except when sleeping. Reviewed sx for which she is to report for evaluation over the interval. She is content with this plan documented in this encounter Plan of Treatment Upcoming Encounters Date Type Specialty Care Team Description 09/30/2021 Office Visit General Surgery Pal[place] Mota APRN [facility] GENERAL SURGERY [place], [place] [address] (Wo rk) 09/30/2021 Office Visit Infectious Diseases Werner Harrell MD [facility] INF[place]OUS [place], [place] [address] (Wo rk) documented as of this encounter Visit Diagnoses Diagnosis Surgery follow-up Follow-up examination, following unspeci fied surgery documented in this encounter Care Teams Criminology Professor Relationship Specialty Start Date End Date Ally Ortiz APRN PCP - General Internal Medicine 04/24/21 [address] [place] [address] documented as of this encounter
--- OUTSIDE RECORDS SUMMARY | 2021-09-27 14:53 | XMS_ITS | Encounter Summary ---
:1960 Author Organization [facility] [place] [address] Care Team Providers Name Role Phone Ally Ortiz Mary GARGN Primary Care Provider Reason for Visit Reason Comments Follow-up 2 week f/u Encounter Details Date Type Department Care Team Description 05/23/2021 Office Visit General Surgery at [facility] Paloma Mota, [place] [address] [address] [address] [phone] GENERAL SURGERY [place], [place] [address] (Wo rk) Social History Tobacco [...] of this encounter Progress Notes Paloma Mota, ELECTRICAL CALIBRATOR - 05/23/2021 1:30 PM EST Jahaira Montgomery presents for surgical follow up. She was last seen 05/09/21. 04/25/21: Repair incarcerated ventral hernia-Rhynhart Findings:??Superior hernia defect containing non-obstructed transverse colon. Incarcerated loop of small bowel in inferior hernia defect with distally decompressed bowel. Extensive interloop adhesions of the entire small bowel. All bowel viable. Primary fascial repair with interrupted 0 PDS sutures. ?? Over the interval, Jahaira tells me she she has been doing well. She denies any fevers, chills abdominal pain, nausea or vomiting. She is eating well, moving her bowels and voiding. Denies any diarrhea. She is using her binder and being careful not to lift. ?? EXAM: Non toxic appearing, abdomen soft non tender, incision is healed. No bulge with head lift Impression/Plan: No evidence of infection, recurrence, or incision breakdown Incision healed At this time we will have Jahaira FU with us on an as needed basis, however I am happy to see her backshould anything specific arise or should there be any question or concern. She is pleases with this plan documented in this encounter Plan of Treatment Upcoming Encounters Date Type Specialty Care Team Description 09/30/2021 Office Visit General Surgery [place] M[place] APRN [facility] GENERAL SURGERY [place], [place] [address] (Wo rk) 09/30/2021 Office Visit Infectious Diseases Werner Harrell MD [facility] INFECTIOUS [place], [place] [address] (Wo rk) documented as of this encounter Visit Diagnoses Diagnosis Surgery follow-up Follow-up examination, following unspeci fied surgery documented in this encounter Care Teams Paediatrician Relationship Specialty Start Date End Date Ally Ortiz APRN PCP - General Internal Medicine 04/24/[address] [place] [place] [address] documented as of this encounter
--- OUTSIDE RECORDS SUMMARY | 2021-09-27 14:53 | XMS_ITS | Encounter Summary ---
:1960 Author Organization [facility] [place] [address] Care Team Providers Name Role Phone Ally Ortiz APRN Primary Care Provider Reason for Visit Reason Comments Abdominal Pain Auth/Cert Specialty Diagnoses / Procedures Referred By Contact Refer red To Contact Diagnoses Incarcerated ventral hernia Procedures emergency ipi Referral ID Status Reason Start Date Expiration Date Visits Requ ested Visits Authorized [id number] 1 1 Encounter Details Date Type Department Care Team Description 04/24/2021 - Hospital Encounter 3 [facility] [place] [facility] [place] [address] SBO (small bowel 04/28/2021 [facility] James Nichole MD [facility] [place] [address] obstruction) [facility] Katalina Franco MD [facility] [place] [address] [facility] Gabriel Daniel MD [facility] [place] [address] [place] [id number] Social History Tobacco Use Types Packs/Day Years [...] Sign Reading Time Taken Comments Blood Pressure 170/60 04/28/2021 1:27 PM EST Pulse 60 04/25/2021 5:40 PM EST Temperature 36.7 ??C (98.1 ??F) 04/28/2021 12:04 PM EST Respiratory Rate 18 04/28/2021 12:04 PM EST Oxygen Saturation 92% 04/28/2021 12:04 PM EST Inhaled Oxygen Concentration - - Weight 107 kg (236 lb) 04/24/2021 3:07 PM EST Height - - Body Mass Index 46.33 04/26/2020 3:39 PM EST documented in this encounter Discharge Summaries Daniela Van MD - 04/28/2021 9:09 AM EST Acute Care Surgery Discharge Summary Patient Name: Jahaira Montgomery Patient Age: 60 y.o. : 1960 Attending Physician: Gabriel Daniel MD Date of Admission: 04/24/2021 Date of Discharge: ID:Jahaira Montgomery??is a 60 y.o.??female??current smoker (20 pk-yr)??with??class III obesity, newly diagnosed diabetes (HbA1c 7.1, not treated),??and several prior abdominal surgeries who we are consultedfor out of concern for incarcerated ventral hernia. Other In-hospital Issues: - Acute Pain - Nausea Secondary Diagnosis: Past Medical History: Diagnosis Date ??? Chronic pain Chronic bilat knee (ACL) pain ??? Claudication left leg no acl right leg torn acl ??? Diverticulitis ??? Syncope fainted 10 years ago from heat Allergies: No Known Allergies Operations/Procedures: 04/25/2021 Procedure(s): HERNIA REPAIR, VENTRAL OR INCISIONAL, RECURRENT, INCARCERATED (WRVU 15.53) HPI: Jahaira Montgomery is a 60 y.o. female current smoker (20 pk-yr) with class III obesity, newly diagnosed diabetes (HbA1c 7.1, not treated), and several prior abdominal surgeries who we are consulted forout of concern for incarcerated ventral hernia. The patient underwent a Lucy's procedure in Mar 2019 for perforated diverticulitis at an OSH, with subsequent reversal with Dr. Miryam Wiley here [facility] in September 2019. She underwent primary repair of an incarcerated ventral incisional hernia in Apr [address] Frost. Since surgery, she reports noticing recurrence of the hernia many months ago but no discomfort or pain. Then, at the end of 2020, she was admitted to [facility] with obstructive symptoms that resolved with conservative treatment and enteral contrast administration. She takes Miralax daily to keep her bowel movements regular, usually two per day. ?? She has not had a bowel movement for the past 2 days (last 04/22). She describes one day of abdominal pain and nausea as well as bilious emesis that became progressively more malodorous. She was unable to tolerate food so she presented to the ED. -Bentley Dale MD 04/25/2021 Hospital Course: 60F with current smoker (20 pk-yr)??with??class III obesity, newly diagnosed diabetes (HbA1c 7.1, not treated),??and several prior abdominal surgeries presented 04/24 with recurrent incarcerated ventral hernia. Unable to be reduced at bedside, concerning for possible strangulation given tenderness on exam and elevated WBC count. Agreed to urgent exploration and underwent hernia repair. ?? Superior hernia defect containing non-obstructed transverse colon. Incarcerated loop of small bowel in inferior hernia defect with distally decompressed bowel. Extensive interloop adhesions of the entire small bowel. All bowel viable. Primary fascial repair with interrupted 0 PDS sutures ?? Pt was kep on NG suction post-op for significant output and nausea. NGT clamped 04/27 for clear liquid trail. Out 04/26 and diet advanced to carb control. Patient experinced intermittent hypertension post op that resolved within 2-3 minutes. Restarted home hydrochlorothiazide 04/28 with moderate effect. Discharged 04/28 following evidence of diet tolerance and more stable BP. Patient understands to follow up with PCP regarding elevated BP. Diabetes team managing Jahaira Montgomery's pain was adequately controlled, she was maintaining adequate oxygen saturation on room air, and was hemodynamically stable. She was tolerating a diet without abdominal complaints and voiding adequately. WBC and Hgb were stable. S/he was ambulating independently. Jahaira Montgomery was evaluated by the Surgery Team and deemed medically stable for discharge today. Plan: Neuro: -tobacco use: current smoker, offer patch when more rested -Tylenol 1,000 q2 MICHAEL - Advil 600mg q6 PRN - Dilaudid 0.2mg inj PRN Pulm: IS FEK: -BMP ordered 04/27: follow labs pending results GI: Carb Control diet 60/60/75 CHO counting level 2, NGT in place, offer enema : Pat d/c'd 04/26. ID: d/c [id number] ENDO: SSI,diabteres team consult Home Meds ?? Hold home hydrochlorothiazide ?? Hold home prednisone ?? Hold home celcoxib Pending Lab Data at Discharge: none Pertinent Lab Data: Recent Labs 04/28/2122304/27/21 0232 04/26/21 0158 WBC 12.3* 14.3* 12.2* HGB 13.9 13.3 13.4 HCT 42.9 41.8 41.3 PLATELET 241 214 195 Recent Labs 04/28/2122304/27/21 0232 04/26/21 0158 NA 140 141 140 K 3.6 3.4* 3.8 CL 100 100 102 CO2 28 30 30 BUN 14 15 21* CREATININE 0.60* 0.61* 0.64* GLUCOSE 110 96 151 CALCIUM 8.9 8.7 8.3* MAGNESIUM 0.77 0.81 0.92 PHOS 3.1 2.7 2.4* Microbiology Data: none Pertinent Imaging: ?? CT Abdomen & Pelvis w Contrast (Exam End: 04/24/2021 10:01 PM) ?? Impression ?? 1. Infraumbilical ventral hernia containing small bowel loop with associated fluid, inflammatory change and caliber change with proximal small bowel dilatation consistent with hernia with incarcerated small bowel and obstruction. 2. Ventral hernia superior to the left of the umbilicus containing transverse colon without obstruction of the transverse colon. ?? Thank you for letting us participate in the care of this patient. If you are a health care provider and have any questions regarding this report, please contact the number below. For patients who have questions please contact the health skin care specialist that requested your imaging first. Discharge Physical Examination: Vital Signs: Last value Range last 24hrs Temperature Temp: 36.7 ??C (98.1 ??F) Temp: [36.6 ??C (97.8 ??F)-37 ??C (98.6 ??F)] Heart Rate Heart Rate: 60 Heart Rate: -- Blood Pressure BP: 170/60 BP: (170-212)/(60-108) Respiratory Rate Resp: 18 Resp: [17-21] SpO2 SpO2: 92 % SpO2: [88 %-97 %] Physical Exam: General: Alert, Ox3 no acute distress Head: Atraumatic, non cyanotic Cardiac: Regular rate Pulmonary: Normal respiratory effort Abdominal: Soft, non distended, no guarding, not peritoneal, not tympanitic, non tender to palpation, dressing c/d/i under binder Neuro: Grossly intact, follows commands Extremities:??Warm and well-perfused, 2+ pulses throughout Current Medications: The following medications have been prescribed for you. If you notice any adverse reactions to your medications, please contact your primary care physician immediately or go to the nearest Emergency Department. Your Medications Continued medications, unchanged Dose Details acetaminophen 500 mg Tab Commonly known as: Tylenol Extra Strength Take 1 tablet by mouth every 6 hours as needed for Pain. 500 mg Quantity: 30 tablet Refills: 0 ALBUTEROL INHL Inhale into the lungs as needed. Refills: 0 ibuprofen 600 mg Tab Commonly known as: Advil Take 1 tablet by mouth every 6 hours as needed for Pain. 600 mg Quantity: 30 tablet Refills: 0 nicotine 14 mg/24 hr Pt24 Commonly known as: Nicoderm CQ Change 1 patch on the skin Q10 Weeks. 1 patch Quantity: 28 patch Refills: 0 nicotine polacrilex 2 mg Gum Commonly known as: Nicorette Take 1 each by mouth as needed for Smoking cessation. 2 mg Quantity: 100 each Refills: 0 polyethylene glycoL 17 gram/dose Powd Commonly known as: Miralax Take 17 g by mouth daily as needed for up to 30 doses. 17 g Quantity: 510 g Refills: 0 senna-docusate 8.6-50 mg Tab Commonly known as: Pericolace Take 2 tablets by mouth 2 times daily as needed for Constipation. 2 tablet Quantity: 60 tablet Refills: 11 Disposition: home Scheduled Appointments: The following appointments have been scheduled on your behalf: No future appointments. Outpatient Services/Studies: No discharge procedures on file. Special Instructions Given to Patient at Discharge:. An After Visit Summary was printed and given to the patient. Patient Instructions Discharge Instructions You were were admitted and treated for the following diagnosis: Repair of ventral hernia. CALL YOUR PHYSICIAN IF: 1. You have a fever greater than 101F 2. You have diarrhea or vomiting for >24 hours, or stop having bowel movements and passing flatus 3. You have worsening pain, not controlled with your pain medication. 4. You develop redness, swelling, or new drainage from your wounds Follow up: No future appointments. Narcotics: You may be given a prescription for a narcotic medication immediately following your surgery. Narcotics are prescribed for short-term (1-3 days) use to help treat your pain. Narcotics do not reduce inflammation and it is inflammation that is usually a major cause of pain after surgery. Narcotics have many side effects such as constipation, lightheadedness, dizziness, sedation, confusion, nausea and vomiting. Driving and the use of alcohol are not recommended while you are using narcotic pain medications. Non-steroidal anti-inflammatories (NSAIDS) such as aspirin, Aleve and ibuprofen (Advil, Motrin) are medications that [...] tire easily, so frequent naps may be necessary. - Talk with your doctor about when [...] 1. You will have follow-up appointments at [facility] as indicated in the ???Future Appointments and [...] on the next business day. Please call [phone] if you do not hear from us by that time, as your timely follow-up is very important to us. Your care was managed by the Trauma and Acute Care Surgery Team at [facility]. If you have any questions or concerns, please feel free to contact us. Provider Contact Information: General Surgery: [facility] (after business hours): Primary Care Physician: Ally Ortiz APRN General Instructions None Your care was managed by the Trauma and Acute Care Surgery Team at [facility]. If you have any questions or concerns, please feel free to contact us. Provider Contact Information: General Surgery Clinic: Nurses line for questions: [facility] (after business hours): CC: TAMMY Marx Gurjit Paloma Mota APRN Signed: Daniela Van MD Department of Surgery 04/28/2021 Acute Care Surgery Pager [phone] documented in this encounter Discharge Instructions Patient InstructionsSage Blunt MD - 04/28/2021 9:19 AM EST Discharge Instructions You were were admitted and treated for the following diagnosis: Repair of ventral hernia. CALL YOUR PHYSICIAN IF: You have a fever greater than 101F You have diarrhea or vomiting for >24 hours, or stop having bowel movements and passing flatus You have worsening pain, not controlled with your pain medication. You develop redness, swelling, or new drainage from your wounds Follow up: No future appointments. Narcotics: You may be given a prescription for a narcotic medication immediately following your surgery. Narcotics are prescribed for short-term (1-3 days) use to help treat your pain. Narcotics do not reduce inflammation and it is inflammation that is usually a major cause of pain after surgery. Narcotics have many side effects such as constipation, lightheadedness, dizziness, sedation, confusion, nausea and vomiting. Driving and the use of alcohol are not recommended while you are using narcotic pain medications. Non-steroidal anti-inflammatories (NSAIDS) such as aspirin, Aleve and ibuprofen (Advil, Motrin) are medications that [...] tire easily, so frequent naps may be necessary. - Talk with your doctor about when [...] 1. You will have follow-up appointments at [facility] as indicated in the ???Future Appointments and [...] on the next business day. Please call [phone] if you do not hear from us by that time, as your timely follow-up is very important to us. Your care was managed by the Trauma and Acute Care Surgery Team at [facility]. If you have any questions or concerns, please feel free to contact us. Provider Contact Information: General Surgery: [facility] (after business hours): Primary Care Physician: Ally Ortiz APRN documented in this encounter Medications at Time of Discharge Medication Sig Dispensed Refills Start Date End Date hydroCHLOROthiazide Take 25 mg by 0 04/22/2021 (Hydrodiuril) 25 mg Tablet mouth daily. Eszopiclone (LUNESTA) 1 mg Take 1 mg by 0 04/18/ 022 09/19/2021 Tablet mouth nightly as needed. ALBUTEROL INHL Inhale into the 0 04/24/202008/13 [...] documented as of this encounter Progress Notes Lena Walton RN - 04/28/2021 1:36 PM EST Discharge Note: Pt AOX4. Pain tolerable on PO pain medication. Pt discharged to home per MD order. VSS. Discharge packet reviewed with patient. No questions at this time, verbalized understanding. Daniela Ramírez MD - 04/28/2021 9:21 AM EST ID/MECHANISM OF INJURY: Jahaira Montgomery is a 60 y.o. female S/p repair of ventral hernia OR CASE INFORMATION: 04/25/2021 Procedure(s): HERNIA REPAIR, VENTRAL OR INCISIONAL, RECURRENT, INCARCERATED (WRVU 15.53) FOLLOW-UP NEEDED: Does pt need to f-u with surgeon or ACUPUNCTURE PHYSICIAN (please indicate reason if attending provider): ACUPUNCTURE PHYSICIAN How soon should TACS f/u be? 2 weeks (staple removal) Follow-up with other services? No Advise of Service and needs. Imaging orders entered: No Radiology Safety questions done for MRI/CT? N/A New or current ostomy? Ostomy nurse shared visit N/A Mobility concerns: Fully ambulatory Wound vac (requires 60min clinic visit) No On vent? If Yes - Needs to have someone from facility and supplies. No On Dialysis: No (SCHEDULE?) INCIDENTAL FINDINGS Incidental Findings (yes/no): No OPIOID CONSENT/NARCOTIC AGREEMENTS Current Month Narcotic Consent? N/A Isolation No Isolation D/c to: Home If Rehab - Rehab Name: PCP Name: Ally Ortiz APRN CC:Noelle Van MD 04/28/2021 Farheen Braga RN - 04/28/2021 5:56 AM EST OUTCOME EVALUATION NOTE: ?? OUTCOME SUMMARY: ?? Patient a/ox4, denies SOB, N/V, and CP. Intermittent dizziness w/ ambulation. Patient denied pain throughout shift. VSS on 2L NC overnight for desaturation to high 80's while asleep, SBP elevated. Abdominal incision C/D/I, LETICIA. Abdominal binder intact. Mepilex to back and sacrum intact. Turns self independently. PIV in R symptomatic, removed. PIV in L intact, IVF d/c'ed, capped. Tolerating clear liquid diet w/out nausea or discomfort. BG 90-113, no insulin coverage needed. OOB to void in BR with 1A and FWW. LBM 2/12, liquid, yellow/pink w/ mucoid consistency, team notified. Sleeping in between care. Routine COVID swab obtained, awaiting results. Will continue to monitor and help patient reach d/c goals. ?? PLAN MOVING FORWARD: ?? Pain control Mobilize POCT q 4 D/C planning ?? INDIVIDUALIZED FALL PREVENTION: Patient is currently a high risk to Fall. Patient educated on bed/chair alarm, demonstrates proper use of call van and verbalizes understanding of fall preventions implemented. Patient-specific fall risk factors per assessment: [current deficits]: PIV, Hospital Environment, Impaired Mobility, Recent Surgery ?? Assistance [level of assistance required for transfers and ambulation]: 1A w/ FWW ?? Supervision [direct monitoring required during toileting and ADLs]: Hands on, moderate assistance with ADL's ?? Surveillance [continuous indirect monitoring]: Masimo, Purposeful Rounding, Bed Alarm Set Gabriel Daniel MD - 04/28/2021 5:31 AM EST [facility] Surgery Progress Note ID:??Jahaira Montgomery??is a 60 y.o.??female??current smoker (20 pk-yr)??with??class III obesity, newly diagnosed diabetes (HbA1c 7.1, not treated),??and several prior abdominal surgeries who we are consulted for out of concern for incarcerated ventral hernia. Problem List: - Acute pain - Nausea - Bilious emesis 24 Hour Events: ?? Pt using commode ?? VSS on 2L NC overnight ?? IVF d/c'ed ?? BG 90-113, no insulin coverage needed. ?? OOB to void in BR with 1A and FWW. ?? LBM 2/12, liquid, yellow/pink w/ mucoid consistency. Physical Exam: Temp: 36.6 ??C (97.8 ??F) ( notified) Temp: [36.6 ??C (97.8 ??F)-37 ??C (98.6 ??F)] Heart Rate: 60 Heart Rate: -- BP: (!) 194/101 (Reported elevated BP to RN.) BP: (177-212)/(86-101) Resp: 17 Resp: [17-20] SpO2: 91 % SpO2: [88 %-97 %] 2LNC04/28 Physical Exam: General: Alert, Ox3 no acute distress Head: Atraumatic, non cyanotic Cardiac: Regular rate Pulmonary: Normal respiratory effort Abdominal: Soft, non distended, no guarding, not peritoneal, not tympanitic, non tender to palpation, dressing c/d/i under binder Neuro: Grossly intact, follows commands Extremities: Warm and well-perfused, 2+ pulses throughout I/O: 04/27 0701 - 04/28 0700 In: 3140 [P.O.:1260; I.V.:1880] Out: 1050 [Urine:550] Weight: Admit Weight: 107.05 kg Current Weight: Weight: 107 kg (236 lb) Scheduled Meds: ??? magnesium sulfate 2 g Intravenous Once ??? senna-docusate 2 tablet Oral BID ??? acetaminophen 1,000 mg Oral Q6H MICHAEL ??? sodium chloride 0.9 % (flush) 5 mL Intravenous BID ??? heparin (porcine) 5,000 Units Subcutaneous Q8H MICHAEL ??? insulin lispro 1-4 Units Subcutaneous Q4H MICHAEL Continuous Infusions: PRN Meds:.bisacodyL, phenoL 1.4%, ipratropium-albuteroL, [] ketorolac FOLLOWED BY ibuprofen, polyethylene glycoL, sodium chloride 0.9 % (flush), lidocaine, naloxone, ondansetron OR ondansetron, HYDROmorphone OR HYDROmorphone OR HYDROmorphone, glucose 40% oral geL OR % OR glucagon Labs: Last 3 wbc, hgb, hct plt Recent Labs 04/28/21 0224 04/27/21 0232 04/26/21 0158 WBC 12.3* 14.3* 12.2* HGB 13.9 13.3 13.4 HCT 42.9 41.8 41.3 PLATELET 241 214 195 General: Alert, no acute distress Head: Atraumatic, non cyanotic Cardiac: Regular rate Pulmonary: Normal respiratory effort Abdominal: Soft, non distended, no guarding, not peritoneal, not tympanitic, tender to deep palpation, stabled incision site clean and dry. Neuro: Grossly intact, follows commands Extremities: Warm and well-perfused Imaging: CT Abdomen & Pelvis w Contrast (Exam End: 04/24/2021 10:01 PM) Impression 1. Infraumbilical ventral hernia containing small bowel loop with associated fluid, inflammatory change and caliber change with proximal small bowel dilatation consistent with hernia with incarcerated small bowel and obstruction. 2. Ventral hernia superior to the left of the umbilicus containing transverse colon without obstruction of the transverse colon. Thank you for letting us participate in the care of this patient. If you are a health care provider and have any questions regarding this report, please contact the number below. For patients who have questions please contact the health skin care specialist that requested your imaging first. A/P: 60F with current smoker (20 pk-yr) with class III obesity, newly diagnosed diabetes (HbA1c 7.1,not treated), and several prior abdominal surgeries presented 04/24 with recurrent incarcerated ventral hernia. Unable to be reduced at bedside, concerning for possible strangulation given tenderness on exam and elevated WBC count. Agreed to urgent exploration and underwent hernia repair. She had not had a bowel movement since 04/22. She describes one day of abdominal pain and nausea as well as bilious emesis that became progressively more malodorous. She presented with an elevated WBC count(20). Superior hernia defect containing non-obstructed transverse colon. Incarcerated loop of small bowel in inferior hernia defect with distally decompressed bowel. Extensive interloop adhesions of the entire small bowel- findings of op note Morning 04/28 pt alert, pain well controlled. Intermittent hypertension over past 24 hours, Unclear if resolving Diabetes team managing PLAN - Admit to [facility] post-op Neuro: -tobacco use: current smoker, offer patch when more rested -Tylenol 1,000 q2 MICHAEL -Advil 600mg q6 PRN - Dilaudid 0.2mg inj PRN Pulm: IS FEK: -BMP ordered 04/27: follow labs pending results GI: Carb Control diet 60/60/75 CHO counting level 2, NGT in place, offer enema : Apt d/c'd 04/26, advance to commode for incontinence. ID: d/c [email or web address] ENDO: SSI,diabteres team consult Home Meds ?? Hold home hydrochlorothiazide ?? Hold home prednisone ?? Hold home celcoxib DISPO/Discharge: 04/28 likely if pt tolerating diet. Sage Blunt MD 04/28/2021 PGY1-General Surgery [facility] Surgery Service #[id number] Acute Care Surgery Attending Addendum: I have seen this patient and agree with the above note with the following additions and/or modifications. Eating well with no nausea or abdominal pain. Having bowel movements. Incision clean, dry and intact with shelley. Plan for discharge home today. Monserrat Avery MSW - 04/27/2021 12:10 PM EST OFFICE of CARE MANAGEMENT CCM Peanut Grader received a consult to follow up with Ms. Montgomery regarding discharge services and Advance Directive assistance. Peanut Grader spoke with Ms. Montgomery and discussed discharge plan and community resources. Ms. Montgomery stated she does not need any community resource referrals or Social Work assi stance at this time. She stated her family members are going to serve in the capacity of Caregiver and assist her with completing the Advance Directive form. Peanut Grader verbalized understanding. There are no additional concerns to address at this time. Monserrat Stauffer LCSW Farheen Braga RN - 04/27/2021 5:12 AM EST OUTCOME EVALUATION NOTE: OUTCOME SUMMARY: Patient a/ox4, denies SOB and CP. Intermittent dizziness w/ standing. Intermittent nausea, denies all antiemetics. Refusing all care at start of shift, MD notified, see previous note. Refused all nightmeds including heparin. Patient agreed to wear SCDs. Patient's pain adequately controlled with scheduled medications, refusing all PRN medications. VSS on 2L NC overnight. Dressing to abdomen C/D/I. Abdominal binder causing redness and skin irritation to back, Mepilex x2 applied and binder placed overgown to avoid direct contact with skin. Patient agreed to q 4 turns while asleep, sacral Mepilex applied. Discussed the implications of immobility, pt agreed to get OOB to chair. Reported dizziness andfatigue upon standing, BP elevated to 180s when OOB. Transferred back to bed for pt safety. PIV in Rintact, refused flush. PIV in L intact, IVF con't. NGT to LCWS, see chart for output. Refused 20:00 glucose check. BG 82 at 00:00 and 89 at 04:00, refused oral glucose gel. Order placed yesterday to remove pat, pt refusing to remove pat and refused pat care. Discussed the risk for infection. LBMPTA, bowel sounds hypoactive. Sleeping in between care. Due for routine covid test today. Will continue to monitor and help patient reach d/c goals. PLAN MOVING FORWARD: Pain control Mobilize Q 2 turns Remove pat POCT q 4 NGT to LCWS Covid test today D/C planning INDIVIDUALIZED FALL PREVENTION: Patient is currently a high risk to Fall. Patient educated on bed/chair alarm, demonstrates proper use of call van and verbalizes understanding of fall preventions implemented. Patient-specific fall risk factors per assessment: [current deficits]: PIVs, NGT, Pain, Medications,Hospital Environment, Impaired Mobility, Recent Surgery Assistance [level of assistance required for transfers and ambulation]: 2A w/ FWW Supervision [direct monitoring required during toileting and ADLs]: Hands on, moderate assistance with ADL's Surveillance [continuous indirect monitoring]: Paul, Purposeful Rounding, Bed Alarm Set Gabriel Caraballo MD - 04/27/2021 4:57 AM EST [facility] Surgery Progress Note ID:??Jahaira Montgomery??is a 60 y.o.??female??current smoker (20 pk-yr)??with??class III obesity, newly diagnosed diabetes (HbA1c 7.1, not treated),??and several prior abdominal surgeries who we are consulted for out of concern for incarcerated ventral hernia. Problem List: - Acute pain - Nausea - Bilious emesis 24 Hour Events: ?? Failed clamp trial overnight (numbing spray ordered) ?? 100cc since 0300 ?? UA ordered ?? Refusing meds and glucose checks until I can eat and get this tube out of my nose. ?? Pat in place, pt reports bladder incontinence, Physical Exam: Temp: 36.9 ??C (98.4 ??F) Temp: [36.5 ??C (97.7 ??F)-37.2 ??C (99 ??F)] Heart Rate: 60 Heart Rate: -- BP: 178/80 BP: (111-178)/(63-84) Resp: 16 Resp: [16-18] SpO2: 95 % SpO2: [92 %-95 %] Physical Exam: General: Alert, Ox3 no acute distress Head: Atraumatic, non cyanotic Cardiac: Regular rate Pulmonary: Normal respiratory effort Abdominal: Soft, non distended, no guarding, not peritoneal, not tympanitic, non tender to palpation, dressing c/d/i under binder Neuro: Grossly intact, follows commands Extremities: Warm and well-perfused, 2+ pulses throughout I/O: 04/26 0701 - 04/27 0700 In: 3062 [P.O.:250; I.V.:2782] Out: 3325 [Urine:1525] Weight: Admit Weight: 107.05 kg Current Weight: Weight: 107 kg (236 lb) Scheduled Meds: ??? acetaminophen 1,000 mg Oral Q6H MICHAEL ??? ketorolac 15 mg Intravenous Q6H ??? sodium chloride 0.9 % (flush) 5 mL Intravenous BID ??? heparin (porcine) 5,000 Units Subcutaneous Q8H MICHAEL ??? insulin lispro 1-4 Units Subcutaneous Q4H MICHAEL Continuous Infusions: ??? lactated Ringers 110 mL/hr (04/27/21 0407) PRN Meds:.phenoL 1.4%, ipratropium-albuteroL, ketorolac FOLLOWED BY [START ON 04/28/2021] ibuprofen, polyethylene glycoL, sodium chloride 0.9 % (flush), lidocaine, naloxone, ondansetron OR ondansetron, HYDROmorphone OR HYDROmorphone OR HYDROmorphone, glucose 40% oral geL OR [id number]% OR glucagon Labs: Last 3 wbc, hgb, hct plt Recent Labs 04/27/21 0232 04/26/21 0158 04/25/21 0600 WBC 14.3* 12.2* 23.3* HGB 13.3 13.4 15.8* HCT 41.8 41.3 48.6* PLATELET 214 195 275 Imaging: CT Abdomen & Pelvis w Contrast (Exam End: 04/24/2021 10:01 PM) Impression 1. Infraumbilical ventral hernia containing small bowel loop with associated fluid, inflammatory change and caliber change with proximal small bowel dilatation consistent with hernia with incarcerated small bowel and obstruction. 2. Ventral hernia superior to the left of the umbilicus containing transverse colon without obstruction of the transverse colon. Thank you for letting us participate in the care of this patient. If you are a health care provider and have any questions regarding this report, please contact the number below. For patients who have questions please contact the health skin care specialist that requested your imaging first. A/P: 60F with current smoker (20 pk-yr) with class III obesity, newly diagnosed diabetes (HbA1c 7.1,not treated), and several prior abdominal surgeries presented 04/24 with recurrent incarcerated ventral hernia. Unable to be reduced at bedside, concerning for possible strangulation given tenderness on exam and elevated WBC count. Agreed to urgent exploration and underwent hernia repair. She had not had a bowel movement since 04/22. She describes one day of abdominal pain and nausea as well as bilious emesis that became progressively more malodorous. She presented with an elevated WBC count(20). Superior hernia defect containing non-obstructed transverse colon. Incarcerated loop of small bowel in inferior hernia defect with distally decompressed bowel. Extensive interloop adhesions of the entire small bowel- findings of op note Morning 04/27 pt alerted, pain well controlled, NG tube put out 100 for 0000- 0700, clamped at 0700 will unclamp at 1100 and advance to liquid. Commode and remove pat Diabetes team managing [facility] note- 10/02-Has ongoing urinary frequency that is unchanged from hospital discharge and tells me she was cautioned by Urology that this would be the case. No dysuria. Ask about nicotine patch Plan to reassess NG output 1200 and consider cap trial and removal afternoon PLAN - Admit to ACS post-op Neuro: -tobacco use: current smoker, offer patch when more rested -Tylenol 1,000 q2 MICHAEL -Advil 600mg q6 PRN - Dilaudid 0.2mg inj PRN CV: -CBC ordered 04/25: follow labs pending results Pulm: IS FEK: IVF resuscitation LR 110mL/hr -BMP ordered 04/25: follow labs pending results GI: Sips and Chips (Give Meds), NGT in place, offer enema : Pat d/c'd 04/26, advance to commode for incontinence. ID: d/c zosyn ENDO: SSI,diabteres team consult Home Meds ?? Hold home hydrochlorothiazide ?? Hold home prednisone ?? Hold home celcoxib DISPO/Discharge Planning: tbd Sage Blunt MD 04/27/2021 PGY1-General Surgery [facility] Surgery Service #[id number] Acute Care Surgery Attending Addendum: I have seen this patient and agree with the above note with the following additions and/or modifications. NGT output trending down over night so will attempt a clamping trial. Dizzy yesterday with mobilization, will get out of bed to chair today and assess. Need to work on pat removal. Some flatus but no BM as of yet, would benefit from mobilization. IPI Certification I certify that I am a D-H credentialed attending provider with admitting privileges and that the patient meets or has met medical necessity to require an inpatient IPI level of care meeting a minimum of two midnights or is on the CMS inpatient only procedure list (status C) due to: ileus Farheen Doll RN - 04/26/2021 9:09 PM EST Pt refusing all meds and glucose checks. States, Not until I can eat and get this tube out of my nose. notified. Rachel Mendoza RN - 04/26/2021 6:00 PM EST NG hooked back up to LCS with immediate 250 ml light green output. Continues to complain of nausea. States if you would let me eat then I would not have any nausea orheadache. Pt continues to refuse any form of care at this time. Notified physician, who will come and talk with patient again about participation in care. Rachel Tee RN - 04/26/2021 12:[address] Blunt, clamp NG tube for 4 hours and evaluate for complaints of nausea/vomiting and amount of gastric secretions. Pt wants to just be left alone to sleep for a couple of hours. Will continue to encourage participation in care. Rachel Tee RN - 04/26/2021 12:00 PM EST Pt extremely frustrated and agitated with plan of care. Pt refusing to have pat cath removed, refusing IS, refusing any form of activity/mobility, and refusing medications at this time. Attempted to educate patient of rationale for treatments and procedures. Pt states she is not doing anything until this tube is out of my nose Dr Blunt aware and into talk with patient. Nella Nation RN - 04/26/2021 11:51 AM EST Diabetes Clinical Nurse Specialist Consulted to meet with pt who has a new Dx type 2 diabetes, based on an HbA1c of 7.1% (average glucose of 157 over the past 3 months). Pt reports a family Hx diabetes in her father and one brother. Shereports no recollection of being screened for diabetes in the past. Reviewed the components of diabetes management - eating a healthy diet, getting regular exercise, taking medication as prescribed, monitoring glucose levels and learning all she can about diabetes. Explained that this is typically a silent disease but increases the risk of serious long-term complications. Provided a One Touch Verio Flex glucose meter and a copy of the Diabetes Toolkit. Encouraged close f/u with her PCP. Gabriel Daniel MD - 04/26/2021 5:28 AM EST ACS Surgery Progress Note ID:??Jahaira Montgomery??is a 60 y.o.??female??current smoker (20 pk-yr)??with??class III obesity, newly diagnosed diabetes (HbA1c 7.1, not treated),??and several prior abdominal surgeries who we are consulted for out of concern for incarcerated ventral hernia. Problem List: - Acute pain - Nausea - Bilious emesis 24 Hour Events: ?? Admitted overnight to To OR as B case for ex lap, repair of incarcerated recurrent incisional hernia, possible bowel resection ?? Admit to ACS post-op ?? Post op check WNL ?? Pat in place, pt reports bladder incontinence Physical Exam: Temp: 37.2 ??C (99 ??F) Temp: [36 ??C (96.8 ??F)-37.2 ??C (99 ??F)] Heart Rate: 60 Heart Rate: [60-82] BP: 141/64 BP: (101-174)/(49-98) Resp: 16 Resp: [8-18] SpO2: 95 % SpO2: [94 %-100 %] Physical Exam: General: Alert, Ox3 no acute distress Head: Atraumatic, non cyanotic Cardiac: Regular rate Pulmonary: Normal respiratory effort Abdominal: Soft, non distended, no guarding, not peritoneal, not tympanitic, non tender to palpation, dressing c/d/i under binder Neuro: Grossly intact, follows commands Extremities: Warm and well-perfused, 2+ pulses throughout I/O: 04/25 0701 - 04/26 0700 In: 3589 [P.O.:50; I.V.:3469] Out: 2465 [Urine:665] Weight: Admit Weight: 107.05 kg Current Weight: Weight: 107 kg (236 lb) Labs: reviewed Imaging: CT Abdomen & Pelvis w Contrast (Exam End: 04/24/2021 10:01 PM) Impression 1. Infraumbilical ventral hernia containing small bowel loop with associated fluid, inflammatory change and caliber change with proximal small bowel dilatation consistent with hernia with incarcerated small bowel and obstruction. 2. Ventral hernia superior to the left of the umbilicus containing transverse colon without obstruction of the transverse colon. Thank you for letting us participate in the care of this patient. If you are a health care provider and have any questions regarding this report, please contact the number below. For patients who have questions please contact the health skin care specialist that requested your imaging first. A/P: 60F with current smoker (20 pk-yr) with class III obesity, newly diagnosed diabetes (HbA1c 7.1,not treated), and several prior abdominal surgeries presented 04/24 with recurrent incarcerated ventral hernia. Unable to be reduced at bedside, concerning for possible strangulation given tenderness on exam and elevated WBC count. Agreed to urgent exploration and underwent hernia repair. She had not had a bowel movement since 04/22. She describes one day of abdominal pain and nausea as well as bilious emesis that became progressively more malodorous. She presented with an elevated WBC count(20). Superior hernia defect containing non-obstructed transverse colon. Incarcerated loop of small bowel in inferior hernia defect with distally decompressed bowel. Extensive interloop adhesions of the entire small bowel- findings of op note Morning 04/26 pt alerted, pain well controlled, NG tube put out 1.8L overnight, pt endorses full feeling and fear of removing pat secondary to incontinence. Diabetes team consulted, will follow recs Plan to reassess NG output 1200 and consider cap trial and removal afternoon PLAN - Admit to ACS post-op Neuro: -tobacco use: current smoker, offer patch when more rested -Tylenol 1,000 q2 MICHAEL -Advil 600mg q6 PRN - Dilaudid 0.2mg inj PRN CV: -CBC ordered 04/25: follow labs pending results Pulm: IS FEK: IVF resuscitation LR 110mL/hr -BMP ordered 04/25: follow labs pending results GI: Sips and Chips (Give Meds), NGT in place : Pat d/c'd 04/26, monitor UOP over day ID: d/c chrissy ENDO: SSI,diabteres team consult Home Meds ?? Hold home hydrochlorothiazide ?? Hold home prednisone ?? Hold home celcoxib DISPO/Discharge Planning: tbifeanyi Blunt MD 04/26/2021 PGY1-General Surgery [facility] Surgery Service #[id number] Acute Care Surgery Attending Addendum: I have seen this patient and agree with the above note with the following additions and/or modifications. Sitting up in bed, appears comfortable and denies pain. NGT with moderate amount of bilious output. No flatus or bowel movement. Recommended ambulation and she shared some ambulation challenges given a bad knee. Continue with current regimen. IPI Certification I certify that I am a D-H credentialed attending provider with admitting privileges and that the patient meets or has met medical necessity to require an inpatient IPI level of care meeting a minimum of two midnights or is on the [facility] inpatient only procedure list (status C) due to: ileus Sage Blunt MD - 04/25/2021 9:54 AM EST Post-Operative Check Jahaira Montgomery is a 60 y.o. female s/p Procedure(s): HERNIA REPAIR, VENTRAL OR INCISIONAL, RECURRENT, INCARCERATED (WRVU 15.53) S: No nausea/vomiting, chest pain, SOB, pain well controlled, offers no complaints O: Temp: [36.1 ??C (97 ??F)] Heart Rate: [69-82] Resp: [8-18] BP: (112-174)/(57-98) SpO2: [90 %-100 %] Heart Rate from SpO2: [68 bpm-82 bpm] I/O last 3 completed shifts: In: 3810 [I.V.:3810] Out: 484 [Urine:350; Other:100; Blood:34] I/O this shift: In: 150 [I.V.:110; Other:40] Out: 175 [Urine:75; Other:100] Patient Lines/Drains/Airways Status Active Tubes/Lines/Drains Name Placement date Placement time Site Days Peripheral IV Line - Single Lumen 04/24/211651 median cubital vein (antecubital fossa), right 20 gauge 04/24/211651 -- 1 Peripheral IV Line - Single Lumen 04/25/21 0350 metacarpal vein (top of hand), left 20 gauge 04/25/21 0350 -- less than 1 Urethral Catheter 04/25/21331 latex 14 5 10 04/25/21331 -- less than 1 Naso/Oral Tube 04/25/21 0123 04/25/21122 -- less than 1 Recent Results (from the past 24 hour(s)) Comprehensive metabolic panel (non-fasting) Result Value Ref Range Glucose Lvl 156 65 - 199 mg/dL BUN 32 (H) 8 - 18 mg/dL Creatinine 0.75 0.70 - 1.20 mg/dL Sodium 136 135 - 145 mmol/L Potassium 4.0 3.5 - 5.0 mmol/L Chloride 97 (L) 98 - 107 mmol/L CO2 24 22 - 31 mmol/L Anion Gap 15 5 - 15 mmol/L Calcium 10.1 8.5 - 10.5 mg/dL Total Protein 7.7 6.1 - 8.0 g/dL Albumin 4.3 3.2 - 5.2 g/dL AST 14 0 - 30 unit/L ALT 18 0 - 30 unit/L Alk Phos 118 (H) 35 - 105 unit/L Total Bilirubin 0.4 0.2 - 1.3 mg/dL Estimated GFR 88 >=60 mL/min/1.73 m?? Lipase Result Value Ref Range Lipase 17 0 - 60 unit/L Hemogram Result Value Ref Range WBC 20.8 (H) 4.0 - 9.5 x10(3)/mcL RBC 5.59 (H) 4.00 - 5.21 x10(6)/mcL Hemoglobin 17.3 (H) 11.7 - 15.5 g/dL Hematocrit 51.4 (H) 35.7 - 45.8 % MCV 91.9 82.6 - 94.4 fL MCH 30.9 27.1 - 32.0 pg MCHC 33.7 31.7 - 35.0 g/dL Platelets 316 145 - 357 x10(3)/mcL RDWSD 44.4 37.0 - 46.0 fL RDWCV 13.1 11.5 - 14.1 % MPV 9.7 7.6 - 12.9 fL nRBC % Auto 0.0 % nRBC Abs Auto 0.000 0.000 - 0.000 x10(3)/mcL Differential, Automated Result Value Ref Range Neutrophils % 78.1 % Neutr Abs (ANC) 16.29 (H) 1.70 - 6.10 x10(3)/mcL Lymphocytes % 14.3 % Lymphocytes Abs 3.0 0.9 - 3.2 x10(3)/mcL Monocytes % 5.6 % Monocyte Abs 1.2 (H) 0.3 - 0.9 x10(3)/mcL Eosinophils % 0.8 % Eosinophils Abs 0.2 0.0 - 0.4 x10(3)/mcL Basophils % 0.5 % Basophils Abs 0.1 0.0 - 0.1 x10(3)/mcL Immature Gran % 0.70 % Shantell Gran Abs 0.15 (H) 0.00 - 0.04 x10(3)/mcL L-Lactate2 Whole Blood Result Value Ref Range Lactate WB 2.3 (H) 0.5 - 2.2 mmol/L COVID-19 PCR Specimen: Nasopharyngeal Swab Symptoms->Surveillance Result Value Ref Range SARS-CoV-2 RNA PCR Not Detected Not Detected SARS-CoV-2 Source ACUPUNCTURE PHYSICIAN Swab Basic Metabolic Panel (non-fasting) Result Value Ref Range Glucose Lvl 171 65 - 199 mg/dL BUN 25 (H) 8 - 18 mg/dL Creatinine 0.73 0.70 - 1.20 mg/dL Sodium 136 135 - 145 mmol/L Potassium 4.6 3.5 - 5.0 mmol/L Chloride 102 98 - 107 mmol/L CO2 23 22 - 31 mmol/L Anion Gap 11 5 - 15 mmol/L Calcium 8.7 8.5 - 10.5 mg/dL Estimated GFR 91 >=60 mL/min/1.73 m?? Magnesium Result Value Ref Range Magnesium 1.07 0.69 - 1.07 mmol/L Phosphorus Result Value Ref Range Phosphorus 3.4 2.5 - 4.5 mg/dL Hemogram Result Value Ref Range WBC 23.3 (H) 4.0 - 9.5 x10(3)/mcL RBC 5.17 4.00 - 5.21 x10(6)/mcL Hemoglobin 15.8 (H) 11.7 - 15.5 g/dL Hematocrit 48.6 (H) 35.7 - 45.8 % MCV 94.0 82.6 - 94.4 fL MCH 30.6 27.1 - 32.0 pg MCHC 32.5 31.7 - 35.0 g/dL Platelets 275 145 - 357 x10(3)/mcL RDWSD 45.0 37.0 - 46.0 fL RDWCV 12.9 11.5 - 14.1 % MPV 9.4 7.6 - 12.9 fL nRBC % Auto 0.0 % nRBC Abs Auto 0.000 0.000 - 0.000 x10(3)/mcL Differential, Automated Result Value Ref Range Neutrophils % 88.4 % Neutr Abs (ANC) 20.57 (H) 1.70 - 6.10 x10(3)/mcL Lymphocytes % 7.4 % Lymphocytes Abs 1.7 0.9 - 3.2 x10(3)/mcL Monocytes % 3.0 % Monocyte Abs 0.7 0.3 - 0.9 x10(3)/mcL Eosinophils % 0.3 % Eosinophils Abs 0.1 0.0 - 0.4 x10(3)/mcL Basophils % 0.3 % Basophils Abs 0.1 0.0 - 0.1 x10(3)/mcL Immature Gran % 0.60 % Shantell Gran Abs 0.15 (H) 0.00 - 0.04 x10(3)/mcL Scan, Peripheral Blood Result Value Ref Range Plat Estimate Normal RBC Morphology Normal Physical Exam Gen: A0x3, NAD, resting comfortably CVS: RRR, no murmurs/rubs/gallops Resp: Mild course breath sounds bilaterally, breathing comfortably on 2L Abd: soft, appropriately tender, nondistended : pat in place, clear yellow urine in bag Ext: SCDs in place, WWP, 2+ pulses upper and lower extremities AP Jahaira Montgomery is a 60 y.o. female s/p hernia repair for recurrent incarcerated bowel currently in stable condition and recovering well - Sips and Chips (Give Meds) - Pain well controlled - Hemodynamically stable, UOP adequate - Continue post operative plan per primary team Sage Blunt MD 04/25/2021 Paul Gallardo RN - 04/25/2021 6:39 AM EST 0530- Pt arrived in PACU, placed on monitor, alarms on, 6L simple mask in place, Expiratory wheeze audible, ABD midline Dry Intact, Abdominal binder in place, NGT to LWS, flushed, VSS, will monitor. 0600- Labs sent off, Duoneb admin, will monitor. 0630- Labs WNL will report off to day shift Sage Chicas MD - 04/25/2021 5:54 AM EST ACS Surgery Progress Note ID:??Jahaira Montgomery??is a 60 y.o.??female??current smoker (20 pk-yr)??with??class III obesity, newly diagnosed diabetes (HbA1c 7.1, not treated),??and several prior abdominal surgeries who we are consulted for out of concern for incarcerated ventral hernia. Problem List: - Acute pain - Nausea - Bilious emesis 24 Hour Events: ?? Admitted overnight to To OR as B case for ex lap, repair of incarcerated recurrent incisional hernia, possible bowel resection ?? Admit to ACS post-op ?? Post op check WNL Physical Exam: Temp: 36 ??C (96.8 ??F) Temp: [36 ??C (96.8 ??F)-36.5 ??C (97.7 ??F)] Heart Rate: 70 Heart Rate: [65-85] BP: 114/56 BP: (107-180)/(52-98) Resp: 14 Resp: [8-26] SpO2: 97 % SpO2: [88 %-100 %] Physical Exam: General: Alert, Ox3 no acute distress Head: Atraumatic, non cyanotic Cardiac: Regular rate Pulmonary: Normal respiratory effort Abdominal: Soft, non distended, no guarding, not peritoneal, not tympanitic, non tender to palpation, dressing c/d/i under binder Neuro: Grossly intact, follows commands Extremities: Warm and well-perfused, 2+ pulses throughout I/O: 04/24 0701 - 04/25 0700 In: 3810 [I.V.:3810] Out: 484 [Urine:350] Weight: Admit Weight: 107.05 kg Current Weight: Weight: 107 kg (236 lb) Labs: reviewed Imaging: CT Abdomen & Pelvis w Contrast (Exam End: 04/24/2021 10:01 PM) Impression 1. Infraumbilical ventral hernia containing small bowel loop with associated fluid, inflammatory change and caliber change with proximal small bowel dilatation consistent with hernia with incarcerated small bowel and obstruction. 2. Ventral hernia superior to the left of the umbilicus containing transverse colon without obstruction of the transverse colon. Thank you for letting us participate in the care of this patient. If you are a health care provider and have any questions regarding this report, please contact the number below. For patients who have questions please contact the health skin care specialist that requested your imaging first. A/P: 60F with current smoker (20 pk-yr) with class III obesity, newly diagnosed diabetes (HbA1c 7.1,not treated), and several prior abdominal surgeries presented 04/24 with recurrent incarcerated ventral hernia. Unable to be reduced at bedside, concerning for possible strangulation given tenderness on exam and elevated WBC count. Agreed to urgent exploration and underwent hernia repair. She had not had a bowel movement since 04/22. She describes one day of abdominal pain and nausea as well as bilious emesis that became progressively more malodorous. She presented with an elevated WBC count(20). Superior hernia defect containing non-obstructed transverse colon. Incarcerated loop of small bowel in inferior hernia defect with distally decompressed bowel. Extensive interloop adhesions of the entire small bowel- findings of op note Arrived in PACU 0530- see post op note PLAN - Admit to ACS post-op Neuro: -tobacco use: current smoker, offer patch when more rested -Tylenol 1,000 q2 MICHAEL -Advil 600mg q6 PRN - Dilaudid 0.2mg inj PRN CV: -CBC ordered 04/25: follow labs pending results Pulm: IS FEK: IVF resuscitation LR 110mL/hr -BMP ordered 04/25: follow labs pending results GI: Sips and Chips (Give Meds), NGT in place : Pat in place ID: d/c zosyn ENDO: SSI Home Meds ?? Hold home hydrochlorothiazide ?? Hold home prednisone ?? Hold home celcoxib DISPO/Discharge Planning: tbd Sage Blunt MD 04/25/2021 PGY1-General Surgery [facility] Surgery Service #[id number] Mavis Ortega RN - 04/25/2021 3:36 AM EST Assumed care of pt at 0700. See flowsheets for system assessments. Pt denies any pain. NGT to LCWS. Report given to [facility]. Transported via bed. Hilary Wing RN - 04/25/2021 3:36 AM EST 1100- Break relief. Hilary Wing RN - 04/25/2021 3:36 AM EST 1600- Break relief. documented in this encounter H&P Notes Katalina Franco MD - 04/25/2021 12:27 AM EST [facility] Department of Surgery Admission History & Physical HPI: Jahaira Montgomery is a 60 y.o. female current smoker (20 pk-yr) with class III obesity, newly diagnosed diabetes (HbA1c 7.1, not treated), and several prior abdominal surgeries who we are consulted forout of concern for incarcerated ventral hernia. The patient underwent a Lucy's procedure in Mar 2019 for perforated diverticulitis at an OSH, with subsequent reversal with Dr. Miryam Wiley here [facility] in September 2019. She underwent primary repair of an incarcerated ventral incisional hernia in Apr [address] Frost. Since surgery, she reports noticing recurrence of the hernia many months ago but no discomfort or pain. Then, at the end of 2020, she was admitted to [facility] with obstructive symptoms that resolved with conservative treatment and enteral contrast administration. She takes Miralax daily to keep her bowel movements regular, usually two per day. She has not had a bowel movement for the past 2 days (last 04/22). She describes one day of abdominal pain and nausea as well as bilious emesis that became progressively more malodorous. She was unable to tolerate food so she presented to the ED. PMH: Past Medical History: Diagnosis Date ??? Chronic pain Chronic bilat knee (ACL) pain ??? Claudication left leg no acl right leg torn acl ??? Diverticulitis ??? Syncope fainted 10 years ago from heat PSH: - hysterectomy - hernia repair x2 (one umbilical, one periumbilical) - Lucy's, 03/2019 - colostomy reversal, 09/2019 - incarcerated ventral incisional hernia repair 04/2020, primary repair without mesh Past Surgical History: Procedure Laterality Date ??? COLON SURGERY 03/19/2019 Open Lucy's ??? HERNIA REPAIR open umbilical x2 ??? HYSTERECTOMY ??? PRO CLOSE ENTEROSTOMY, RESEC+COLOREC ANAS N/A 09/14/2019 @CLOSE ENTEROSTOMY, LG,SM INTESTINE, W\RESECT COLORECTAL ANAST. (WRVU 27.9) performed by Miryam Wiley MD at [facility] MAIN OR ??? PRO COLONOSCOPY, DIAGNOSTIC N/A 08/18/2019 COLONOSCOPY, DIAGNOSTIC performed by Emigdio Lanier MD at [facility] ENDOSCOPY ??? PRO CYSTOSCOPY, INSERT URETERAL STENT Right 09/14/2019 CYSTO, STENT PLACEMENT INTRAOP, TEMPORARY (WRVU 2.82) performed by Werner Fournier MD at [facility] MAIN OR ??? PRO EXPLORATORY OF ABDOMEN N/A 04/25/2020 @EXPLORATORY LAPAROTOMY, WITH/WITHOUT BIOPSY(S) (WRVU 12.54) performed by Jerod Frost MD at [facility] MAIN OR ??? PRO MOBILIZE SPLENIC FLEX N/A 09/14/2019 @MOBILIZATION OF SPLENIC FLEXURE (WRVU 2.23) performed by Miryam Wiley MD at [facility] OR ??? PRO OMENTAL FLAP, INTRA-ABDOMINAL 09/14/2019 @OMENTAL FLAP, INTRA-ABDOMINAL (WRVU 6.54) performed by Miryam Wiley MD at [facility] OR ??? PRO REPAIR RECURR INCIS HERNIA, DEONTE N/A 04/25/2020 HERNIA REPAIR, VENTRAL OR INCISIONAL, RECURRENT, INCARCERATED (WRVU 15.53) performed by Jerod Frost MD at [facility] OR ??? PRO SIGMOIDOSCOPY, DIAGNOSTIC N/A 09/14/2019 SIGMOIDOSCOPY, FLEXIBLE W/WO SPECIMEN BY BRUSHING OR WASHING (WRVU 0.84) performed by Miryam Wiley MD at [facility] OR ??? TUBAL LIGATION MEDS: Medication Sig ??? ALBUTEROL INHL Inhale into the lungs as needed. ??? polyethylene glycoL (Miralax) 17 gram/dose Powder Take 17 g by mouth daily as needed for up to 30 doses. ??? acetaminophen 500 mg Tablet Take 1 tablet by mouth every 6 hours as needed for Pain. ALL: No Known Allergies FHx: Family History Problem Relation Age of Onset ??? Cancer Father pancreas SHx: Social History Tobacco Use ??? Smoking status: Current Every Day Smoker Packs/day: 0.50 Years: 40.00 Pack years: 20.00 Types: Cigarettes ??? Smokeless tobacco: Never Used Vaping Use ??? Vaping Use: Never used Substance Use Topics ??? Alcohol use: Never Comment: almost 20 years ??? Drug use: Never Vitals: Afebrile, HR 60-70s, normotensive (120-140 / 60-80) EXAM: Gen: no distress, resting comfortably in ED stretcher, obese HEENT: dry mucous membranes, no scleral icterus CV: HR 70s regular, radial pulses 2+ b/l Pulm: breathing comfortably on 2L GI/Abd: soft, obese, left-sided umbilical hernia visible, very tender to palpation of this, does nottolerate attempted reduction, no overlying skin changes MSK: extremities warm and well perfused, no notable edema Neuro: no focal deficits Skin: no lesions or rashes noted LABS: Recent Labs 04/25/21 0600 04/24/21 1750 WBC 23.3* 20.8* HGB 15.8* 17.3* HCT 48.6* 51.4* PLATELET 275 316 NEUTROABS 20.57* 16.29* Recent Labs 04/25/21 0600 04/24/21 1750 NA 136 136 K 4.6 4.0 CL 102 97* CO2 23 24 BUN 25* 32* CREATININE 0.73 0.75 Recent Labs 04/24/21 1750 AST 14 ALT 18 ALKPHOS 118* BILITOT 0.4 IMAGING/DIAGNOSTICS: CT A/P - images personally reviewed 1. Infraumbilical ventral hernia containing small bowel loop with associated fluid, inflammatory change and caliber change with proximal small bowel dilatation consistent with hernia with incarcerated small bowel and obstruction. 2. Ventral hernia superior to the left of the umbilicus containing transverse colon without obstruction of the transverse colon. IMPRESSION: 60F with recurrent incarcerated ventral hernia. Unable to be reduced at bedside, concerning for possible strangulation given tenderness on exam and elevated WBC count. The rationale for surgical intervention was discussed with the patient, specifically the primary goal of surgery to evaluate the bowel, ensure viability, and resect anything compromised. We discussed that we will also fix the hernia at that time, but it will almost certainly be a primary repair and given her class III obesity and active smoking, she has an almost 100% recurrence rate, which she understands. The risks of bleeding, infection, injury to surrounding structures, need for further procedures, need for ostomy, and recurrence were discussed with the patient and all questions answered. PLAN: - To OR as B case for ex lap, repair of incarcerated recurrent incisional hernia, possible bowel resection - NPO - NGT to LCWS - IVF resuscitation - Zosyn - SQH DVT ppx - Admit to ACS post-op Thank you for allowing us to participate in the care of this patient. Please do not hesitate to callwith any questions or concerns. Bentley Dale MD [id number] 04/25/2021 6:55 AM SURGICAL ATTENDING NOTE: Pt seen and examined with the resident staff in the ED and I agree with the above note and plan with the following additions/modifications. In brief patient is a 60-year-old female who presents with a symptomatic incarcerated/strangulated recurrent incisional hernia. Patient last underwent an operative repair approximately a year ago for similar presentation which was done primarily. She states she had been doing reasonably well for a fewmonths after that procedure but then had a recurrence. She states that 3 days ago the hernia became incarcerated and had increasing pain with nausea vomiting and inability to tolerate p.o. She presented to the emergency department where she was evaluated by the ED staff which included a CT scan that Vee personally reviewed. CT shows a Canadian cheese like ventral defect with a knuckle of small bowel in the more caudal defect concerning for high-grade obstruction. On exam she is alert and mild to moderate distress. She is hemodynamically normal. Her abdomen is soft obese with marked tenderness to palpation just superior to the umbilicus with a palpable mass easily identified. There is no overlying skin changes. White count is 20,000. A/P; 60-year-old female with a recurrent incisional hernia which is causing at the very least a high-grade small bowel obstruction and possibly strangulating a portion of small bowel for whom I recommended urgent exploration this evening. Patient underwent informed consent to include the risk benefits which include but are not limited to bleeding, infection, need for bowel resection, need for ostomy and near 100% recurrence given her BMI and the fact that she is an ongoing smoker. I explained to the patient the primary reason for intervention this evening is to relieve the obstruction and hopefully avoid the need for bowel resection. She understands these risks and wished to proceed. We will proceed tothe operating room as a B case. Otherwise as noted above. documented in this encounter ED Notes Terri Moss RN - 04/25/2021 2:28 AM EST Pt to go to the OR per surgery. Jassi Monae - 04/25/2021 1:50 AM EST Surgery team in with patient. Jassi Monae - 04/25/2021 12:50 AM EST Surgery team in with patient. Jassi Monae - 04/24/2021 10:01 PM EST Patient to CT. Jassi Monae - 04/24/2021 9:[address] made aware patient is agreeable for scan. Chel Iqbal RN - 04/24/2021 7:16 PM EST Report to [place] NR. Chel Iqbal RN - 04/24/2021 6:05 PM EST Pt increasingly somnolent requiring vigorous stimulation to arouse, but she is appropriate. Continueto monitor. Mami [place] LNA - 04/24/2021 5:30 PM EST Went to bring patient to Cat Scan. Patient lying in bed and shook her head with her eyes shut and said uh uh. Visitor with patient stated she was given her zofran and another med and than started vomited and her O2 went down in the 60's than back up. While in room the patients oxygen was in the 90'swith a good pleth. Nurse aware and CT called. Chel Iqbal RN - 04/24/2021 5:25 PM EST This curriculum writer informed by Markus ALCARAZ that the pt had a desaturation w/ a good pleth noted. FiO2 via NC at 2L applied. Continue to monitor. Medardo Claros MD - 04/24/2021 3:17 PM EST ED Resident Note HPI: Jahaira Montgomery is a 60 y.o. female who presents to the Emergency Department for abdominal pain, and nausea which began yesterday afternoon with associated vomiting of undigested content today in the context of no bowel movement in the past two days. The patient has a pertinent past medical history of div erticulitis and pertinent past surgical history of multiple previous abdominal surgeries including recent Lucy's procedure in 2019 for complicated diverticulitis and in 2020 had incarcerated ventral hernia with SBO where she had her hernia [place] [facility] The patient states the abdominal pain began gradually yesterday afternoon at 4:30pm and progressively became worse throughout the evening--she states that her lower abdominal dull pain feels exactly like last time with my diverticulitis. She denies SOB, chest pain, or confusion, she also denies dysuria. Presently her primary chief concern is the lower dull abdominal pain. She states that when she attempted to stand up she felt a bit lightheaded and believes it's because of the recent vomiting. In the ED setting she received zofran and tylenol, and morphine for nausea and pain management. She also received one liter of LR. Pt was seen under the supervision of an attending physician. Review of Systems Constitutional: Negative for fever. HENT: Negative for rhinorrhea and sore throat. Eyes: Negative for visual disturbance. Respiratory: Negative for chest tightness and shortness of breath. Cardiovascular: Negative for chest pain. Gastrointestinal: Positive for abdominal distention, abdominal pain, constipation, nausea and vomiting. Genitourinary: Negative for dysuria and urgency. Musculoskeletal: Negative for arthralgias and back pain. Neurological: Negative for weakness and numbness. Psychiatric/Behavioral: Negative for confusion. Pertinent positives and negatives are included in the HPI, otherwise at least ten systems were reviewed and negative. Past Medical and Surgical Histories, Social History, Medications, Allergies were reviewed in the chart. Vitals: ED Triage Vitals [04/24/21 1507] BP: (!) 151/91 Heart Rate: 85 Resp: 20 Temp: 36.5 ??C (97.7 ??F) Temp src: Oral SpO2: 97 % O2 Device: RA O2 Flow Rate (L/min): n/a Physical Exam Constitutional: General: She is in acute distress. HENT: Head: Normocephalic. Mouth/Throat: Mouth: Mucous membranes are moist. Pharynx: No oropharyngeal exudate. Eyes: Extraocular Movements: Extraocular movements intact. Conjunctiva/sclera: Conjunctivae normal. Pupils: Pupils are equal, round, and reactive to light. Cardiovascular: Rate and Rhythm: Normal rate. Heart sounds: Normal heart sounds. Pulmonary: Breath sounds: Normal breath sounds. Abdominal: General: Bowel sounds are normal. Musculoskeletal: General: Normal range of motion. Cervical back: Normal range of motion. Skin: General: Skin is warm and dry. Neurological: General: No focal deficit present. Mental Status: She is alert. Psychiatric: Behavior: Behavior normal. ED Course: I have reviewed labs and imaging, images and available reports, and they are significant for: During the patient ED stay she had CBC with diff, CMP, lactate, COVID-19 test, and lipase lab work. Additionally the patient had CT abdomen to work up diverticulitis versus SBO. Patient's CBC shows elevated WBCs at 20.8 alongside elevated RBCs and Hemoglobin at 17.3 Patient's CMP shows elevated BUN and slightly decreased chloride. She also has increased alk phos at118. Patient's lactate was found to be elevated at 2.27 mmol/L and was given a 1 liter of LR. Patient's lipase is 17 which is within normal limits. Patient's COVID-[address] abdomen and pelvis with contrast result is still pending. Last 3 wbc, hgb, hct plt Recent Labs 04/24/21 1750 WBC 20.8* HGB 17.3* HCT 51.4* PLATELET 316 Last 3 Lytes Recent Labs 04/24/21 1750 NA 136 K 4.0 CL 97* CO2 24 BUN 32* CREATININE 0.75 GLUCOSE 156 Last 3 Trop, ProBNP, CK No results for input(s): TROPONINT, PROBNP, CK in the last 7068 hours. Last 3 LFTs Recent Labs 04/24/21 1750 AST 14 ALT 18 ALKPHOS 118* BILITOT 0.4 Last Lipase Recent Labs 04/24/21 1750 LIPASE 17 Last 3 Lactates Recent Labs 04/24/21 1813 LACTATEVEN 2.3* Last 3 VBGs Recent Labs 04/24/21 1813 LACTATEVEN 2.3* Last UA No results for input(s): PHUADIP, SPGRAVITYUA, BLOODUADIP, KETONESUA, GLUCOSEU, PROTEINUADIP, BILIRUBINUA, UROBILIUADIP, NITRATEUA, LEUKOESTERUA in the last 7068 hours. Last Urine Micro No results for input(s): RBCU, WBCUA, BACTERIAUA, SQUAMEPIUA, HYALCAST in the last 72 hours. Last Urine Preg No results for input(s): HCGQUAL, POCUAHCG in the last 72 hours. Last Beta HCG No results for input(s): HCGQUANT in the last 720 hours. Last Urine Drug ScreenNo results for input(s): UBARBSCRN, UBENZOSCRN, UCOCAINESCR, UMETHMETSCRN, UOPIATESCRN, UCANNABSCRN, UOXYSCRN, UBUPRENORPHN, UFENTANYLSCR, UTRICYCLICS, UETHANOLSCRN, UAMPHETAMIN, SVTUADULTER in the last 7068 hours. Last APAP, Salicylate No results for input(s): ACTMNPHEN, SALICYLATE in the last 72 hours. Last Ca, Mg, Phos Recent Labs 04/24/21 1750 CALCIUM 10.1 Last 3 Coags No results for input(s): PT, INR, PTT in the last 7068 hours. Last D-Dimer No results for input(s): DDIMER in the last 72 hours. Last 3 TSH No results for input(s): TSH in the last 7068 hours. Invalid input(s): T4, FT4 Last CRP, SED RATENo results for input(s): CRP, SEDRATE in the last 7068 hours. Last Covid Recent Labs 04/24/21 [id number] Abdomen & Pelvis w Contrast (Results Pending) ED Course as of 04/24/212208Apr 24, [address] Abdomen & Pelvis w Contrast Procedures Assessment and Plan: 60 y.o. female with abdominal pain, and nausea and vomiting in the context of no bowel movement in the past two days. The patient's pertinent PMHx of diverticulitis and pertinent past surgical history of multiple previous abdominal surgeries raises concern for potential diverticulitis vs. SBO(e.g adhesions) and lower in the differential is colitis. The patient had an elevated lactate level and received LR in the ED setting alongside pain control medicine. The patient's previous history of diverticulitis alongside the patient's Lucy's procedure(for complicated diverticulitis) raises probability that this may be diverticulitis based on previous history alongside patient endorsing symptomatology similar in character to previous diverticulitis alongside elevated WBC. Given the patient's previous abdominal surgeries there is also increase risk of surgical adhesions which could raise concern for aSBO. Results for CT abdomen is pending. -Dispo pending CT abdomen Medardo Cooper MD Resident 04/24/212208 Associated attestation - Viviana Camacho MD - 04/25/2021 1:35 PM EST ED ATTENDING ATTESTATION NOTE The patient was seen in conjunction with the resident physician. I have independently performed the onofre portions of the history and physical exam. I have reviewed the nursing notes, vital signs, and all diagnostic studies personally including labs, imaging studies and EKGs. I have discussed the details of the case with the resident and agree with the assessment and plan as described in the resident note unless noted otherwise. Brief Summary: 60 year old female w/ hx diverticulitis and multiple SBOs iso hernias presenting withabdominal pain since last evening that feels like prior diverticulitis. Diffusely tender on exam. Had a BM yesterday but is not passing flatus. Concern for repeat obstruction vs diverticulitis. CT shows ventral hernia with incarcerated small bowel causing obstruction. Patient was admitted to surgery for further management. Final Assessment: Incarcerated ventral hernia and small bowel obstruction Noel Iqbal PA - 04/24/2021 3:05 PM EST Brief Provider Triage Note: 60 y.o. female presents to the emergency department with abdominal pain, nausea and vomiting. Symptoms have been ongoing for two days. Last bowel movement was two days ago. History of bowel obstructionin the past and this feels similar. Patient is nontoxic appearing. Preliminary testing was ordered. The patient is awaiting a bed in the Emergency Department. Noel Iqbal PA 04/24/21 1507 documented in this encounter Miscellaneous Notes Plan of Care - Gretchen Marshall RN - 04/27/2021 7:46 PM EST OUTCOME EVALUATION NOTE: OUTCOME SUMMARY: AOx4, BP elevated into 200s (MD notified), intermittently on 1-2L NC while sleeping to maintain saturation above 92, otherwise VSS. Denies pain NGT clamped on initial assessment, remained clamped per MD until 1030 when NGT was reconnected to suction and drained an additional 350cc output. Per MD, NGT was reclamped and diet advanced to clears. Tolerated diet all day with no nausea. NGT removed per MD at change of shift This AM, staff assisted pt to the edge of the bed with the intention of getting up to the chair and she became very visibly dizzy (unfocused gaze, difficulty holding self up). Her blood pressure was 201/99 and her blood glucose was 77. Dizziness improved with cranberry juice PO. Pat pulled per MD order, up to toilet to void 2 very small BMs today, pt passing frequent flatus Intermittently oob to chair today PLAN MOVING FORWARD: Advance diet BM! Discharge planning INDIVIDUALIZED FALL PREVENTION INTERVENTIONS: Patient-specific fall risk factors per assessment: [current deficits]: Dizziness, lines & drains Assistance [level of assistance required for transfers and ambulation]: 2A w/ fww Supervision [direct monitoring required during toileting and ADLs]: Eyes on, arms reach Surveillance [continuous indirect monitoring]: Thom, bed alarm Patient-specific fall prevention interventions for sensory deficits provided, if applicable: [X] N/A CPG GOAL OUTCOME EVALUATION: Plan of Care - Abbey Mcgarry RN - 04/26/2021 5:16 AM EST OUTCOME EVALUATION NOTE: OUTCOME SUMMARY: Patient AOx4, VSS on 2L NC. Denies nausea/vomiting, CP, SOB. Pain controlled w/ scheduled and PRN medications, see MAR for medications given. Dressing to midline incision, CDI-covered by gauze and medipore tape. Abdominal binder in place. NGT to LCS w/ light green/brown output. Pat catheter in place, draining CYU-low UO. NPO diet maintained. Pt endorsing r. Hand pain-Team aware. Pain does not appear to be related to the PIV running 110/hr LR. Will continue to monitor and follow up on hand pain. Patient not oob this shift. Patient sleeping in between care. Will continue to monitor. PLAN MOVING FORWARD: Pain control Mobilization Diet advancement NGT removal Monitoring I&O D/c planning INDIVIDUALIZED FALL PREVENTION INTERVENTIONS: Patient-specific fall risk factors per assessment: [current deficits]: Hospital environment, medication, pain, general weakness, recent surgery Assistance [level of assistance required for transfers and ambulation]: 1A- reported, not oob this shift. Supervision [direct monitoring required during toileting and ADLs]: Eye on, hands on Surveillance [continuous indirect monitoring]: Masimo, bed alarm, purposeful rounding, room near nurses station, NKE Patient-specific fall prevention interventions for sensory deficits provided, if applicable: [X] N/A Plan of Care - Rachel Mendoza RN - 04/25/2021 7:28 PM EST OUTCOME EVALUATION NOTE: OUTCOME SUMMARY: Pt A&Ox4, VSS on 2 l/m via NC. on day 1 of hernia repair. Midline abd incision covered with gauze and medipore tape without drainage. NG to LCS with green/brown output. Pat cath with greg urine.Pain well controlled at this time. Pt to continue NPO for night. Patient progressing towards d/c goals appropriately at this time. Patient's pain adequately controlled with scheduled and PRN medications, see MAR for medications given. Will continue to monitor and help patient reach d/c goals. PLAN MOVING FORWARD: Pain control Mobilize D/C planning INDIVIDUALIZED FALL PREVENTION: Patient is currently a high risk to Fall. Patient educated on bed/chair alarm, demonstrates proper use of call van and verbalizes understanding of fall preventions implemented. Patient-specific fall risk factors per assessment: [current deficits]: Pain, Medications, Hospital Environment, Impaired Mobility, Recent Surgery Assistance [level of assistance required for transfers and ambulation]: 1 assisit Supervision [direct monitoring required during toileting and ADLs]: 1 SBA with ADL's Surveillance [continuous indirect monitoring]: Paul, Purposeful Rounding, Nurse Knowledge Exchangeat Bedside, Bed Alarm Set Initial Assessments - Chidi Tate RN - 04/25/2021 3:06 PM EST Office of Care Management Initial Assessment Medical record reviewed. Plan of care and patient status discussed with direct care Registered Nurseand/or Care Team in multidisciplinary rounds. Reason for Hospitalization: 60 y.o.??female??current smoker (20 pk- yr)??with??class III obesity, newly diagnosed diabetes (HbA1c 7.1, not treated),??and several prior abdominal surgeries who we are consulted for out of concern for incarcerated ventral hernia. ?? Last COVID test: Lab Results Component Value Date [id number] Not Detected 04/24/2021 Present on Admission: ??? Incarcerated ventral hernia Hospitalizations Within the Past 30 Days: no previous admission in last 30 days Patient receiving hospital care under Inpatient status. Admission order reviewed. Primary Insurance on file: MEDICAID [place] Secondary Insurance on file:@ Primary care provider on file: Ally Ortiz, TAMMY [phone] Pharmacy: [facility] [address] [address] Advance Care Planning: Attempt Cardiopulmonary Resuscitation - Inpatient <no information> -Advanced Directive: No, need to discuss (Has the paperwork,, would like help filling it out) 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: Completely Dependent Functional Status Prior to Admission: Independent Home Environment: Others in the home: sibling(s), other (see comments) (Lives with brother and his partner). Current Living Arrangements: home/apartment/condo. Accessibility Concerns:2 level home, stays on first level, ramp with railing to enter. Current DME: walker - standard, grab bar - tub/shower, grab bar - toilet, shower chair [address] [facility] [address] Social & Family Supports: All names listed below confirmed with patient as current and correct Extended Emergency Contact Information Primary Emergency Contact: SOLOMON LACY Mobile Relation: Sibling Current Care Provided by: self Transportation: no concerns Transportation Anticipated: family or friend will provide Assessment: Patient with no apparent RNCM/SW needs at this time. No housing, transportation, insurance, resources concerns identified at this time. Supports in place to achieve a safe post-hospital transition. No identified barriers to accessing necessary care and/or follow-up after discharge. If homehealth is needed patient requests a referral to: [facility]. PHONE: [phone] FAX: [phone] Plan: Patient to d/c to home via family when medically ready. Registered Nurse Medical Director / Peanut Grader will continue to follow patient???s progress and remain available if situation changes for coordination of care, psychosocial support and/or discharge planning. Office of Care Management Chidi Tate RN CM(remote) Aria Shultz RN CM Pager [phone] Op Note - Bentley Dale MD - 04/25/2021 5:19 AM EST [facility] [place] Patient Name: Jahaira Montgomery : [id number] MR#: [id number] Case Date: 04/25/2021 Surgeon: Surgeon(s) and Role: * Katalina Franco MD - Primary * Bentley Dale MD - Resident Preoperative diagnosis: incarcerated ventral hernia, recurrent Postoperative diagnosis: incarcerated ventral hernia, recurrent Procedure(s) (LRB): HERNIA REPAIR, VENTRAL OR INCISIONAL, RECURRENT, INCARCERATED (WRVU 15.53) (Left) Findings: Superior hernia defect containing non-obstructed transverse colon. Incarcerated loop of small bowel in inferior hernia defect with distally decompressed bowel. Extensive interloop adhesions of the entire small bowel. All bowel viable. Primary fascial repair with interrupted 0 PDS sutures. Anesthesia: General endotracheal Estimated Blood Loss: 34 mL Specimens removed during surgery: None Drains: None Surgical Closure: Primary Closure - skin incision [...] patient.) HPI/Surgical Indications: Jahaira Montgomery is a 60 y.o. female with a history of multiple prior abdominal surgeries who presented with a recurrent incarcerated incisional hernia. Procedure Description: The patient was brought to the operating room and positioned supine on the operating room table. Following induction of general endotracheal anesthesia, SCDs were placed for perioperative VTE prophylaxis and 3.375 g of Zosyn was given as perioperative antibiotic prophylaxis. Theabdomen was prepped and draped in usual sterile fashion. A standard surgical safety timeout was performed. Entry to the abdomen was gained via an upper midline incision above the level of the superior-most hernia defect. The skin was incised sharply and dissection was carried down to the fascia with electrocautery. The fascia was scored with cautery and the peritoneum was elevated and incised sharply with Metzenbaum scissors. We then proceeded to carefully open the rest of the skin, subcutaneous tissue, and fascia inferiorly, sequentially assessing for any bowel adherent to the anterior abdominal wall. We first encountered a loop of transverse colon which was contained within a small hernia defect. Thiswas densely adherent within the hernia sac, but did not appear obstructed or ischemic in any way. The adhesions to the hernia sac were carefully taken down sharply with Metzenbaum scissors and the transverse colon was reduced into the abdomen. There were several other Canadian cheese type defects inferior to this along the midline of the anterior abdominal wall, one of which was containing a loop of small bowel. This was carefully dissected free from the overlying hernia sac with Metzenbaum scissors. There was a small knuckle of bowel which was densely adherent within a small defect; the bowel distal to this point was relatively decompressed, with dilated loops proximally. This was carefully dissected free from the surrounding attachments and reduced into the abdomen. At this point palpation along the anterior abdominal wall revealed that there was a single 1 cm circular defect about 3 cm inferior to the larger fascial defect, but other than that no further hernia defects containing any bowel. Thesmall bowel was then examined. There was some injected areas where the bowel had been adherent within the hernia sac, however all of the involved bowel looked completely viable. There were significant interloop adhesions between the remaining small bowel, preventing us from completely eviscerated the small bowel and running it in its entirety. However, there did not appear to be any further points ofobstruction, and we felt that having addressed the known point of obstruction within the hernia, proceeding with extensive lysis of adhesions would only put her at risk of enterotomy without clear benefit. We thus proceeded to irrigate the abdomen with sterile saline. Hemostasis was ensured. The nasogastric tube was confirmed in the stomach on palpation. Subcutaneous flaps were then raised along the length of the fascia. The fascia was reapproximated in the midline with a series of interrupted [id number] 0 PDS sutures. The skin was reapproximated with interrupted 3-0 Vicryl deep dermal suturesand skin shelley. A sterile Primapore dressing was applied over top. All counts were correct at the conclusion of the procedure. The patient was awakened from anesthesia, extubated, and transferred to recovery room in stable condition having suffered no untoward event. Dr. Franco was present for all critical portions of the procedure. Surgical Infection Prevention Bundle Used? N/A Bentley Dale MD Associated attestation - Katalina Franco MD - 04/25/2021 6:42 AM EST Attestation: Case Date: 04/25/2021 I was present and I participated during the entire procedure (does not need to include opening and closing). KATALINA FRANCO MD 04/25/2021 Consult Note - Bentley Dale MD - 04/25/2021 12:27 AM EST [facility] Department of Surgery Admission History & Physical HPI: Jahaira Montgomery is a 60 y.o. female current smoker (20 pk-yr) with class III obesity, newly diagnosed diabetes (HbA1c 7.1, not treated), and several prior abdominal surgeries who we are consulted forout of concern for incarcerated ventral hernia. The patient underwent a Lucy's procedure in Mar 2019 for perforated diverticulitis at an OSH, with subsequent reversal with Dr. Miryam Wiley here [facility] in September 2019. She underwent primary repair of an incarcerated ventral incisional hernia in Apr [address] Frost. Since surgery, she reports noticing recurrence of the hernia many months ago but no discomfort or pain. Then, at the end of 2020, she was admitted to [facility] with obstructive symptoms that resolved with conservative treatment and enteral contrast administration. She takes Miralax daily to keep her bowel movements regular, usually two per day. She has not had a bowel movement for the past 2 days (last 04/22). She describes one day of abdominal pain and nausea as well as bilious emesis that became progressively more malodorous. She was unable to tolerate food so she presented to the ED. PMH: Past Medical History: Diagnosis Date ??? Chronic pain Chronic bilat knee (ACL) pain ??? Claudication left leg no acl right leg torn acl ??? Diverticulitis ??? Syncope fainted 10 years ago from heat PSH: - hysterectomy - hernia repair x2 (one umbilical, one periumbilical) - Lucy's, 03/2019 - colostomy reversal, 09/2019 - incarcerated ventral incisional hernia repair 04/2020, primary repair without mesh Past Surgical History: Procedure Laterality Date ??? COLON SURGERY 03/19/2019 Open Lucy's ??? HERNIA REPAIR open umbilical x2 ??? HYSTERECTOMY ??? PRO CLOSE ENTEROSTOMY, RESEC+COLOREC ANAS N/A 09/14/2019 @CLOSE ENTEROSTOMY, LG,SM INTESTINE, W\RESECT COLORECTAL ANAST. (WRVU 27.9) performed by Miryam Wiley MD at [facility] MAIN OR ??? PRO COLONOSCOPY, DIAGNOSTIC N/A 08/18/2019 COLONOSCOPY, DIAGNOSTIC performed by Emigdio Lanier MD at [facility] ENDOSCOPY ??? PRO CYSTOSCOPY, INSERT URETERAL STENT Right 09/14/2019 CYSTO, STENT PLACEMENT INTRAOP, TEMPORARY (WRVU 2.82) performed by Werner Fournier MD at [facility] OR ??? PRO EXPLORATORY OF ABDOMEN N/A 04/25/2020 @EXPLORATORY LAPAROTOMY, WITH/WITHOUT BIOPSY(S) (WRVU 12.54) performed by Jerod Frost MD at [facility] OR ??? PRO MOBILIZE SPLENIC FLEX N/A 09/14/2019 @MOBILIZATION OF SPLENIC FLEXURE (WRVU 2.23) performed by Miryam Wiley MD at [facility] OR ??? PRO OMENTAL FLAP, INTRA-ABDOMINAL 09/14/2019 @OMENTAL FLAP, INTRA-ABDOMINAL (WRVU 6.54) performed by Miryam Wiley MD at [facility] OR ??? PRO REPAIR RECURR INCIS HERNIA, DEONTE N/A 04/25/2020 HERNIA REPAIR, VENTRAL OR INCISIONAL, RECURRENT, INCARCERATED (WRVU 15.53) performed by Jerod Frost MD at [facility] OR ??? PRO SIGMOIDOSCOPY, DIAGNOSTIC N/A 09/14/2019 SIGMOIDOSCOPY, FLEXIBLE W/WO SPECIMEN BY BRUSHING OR WASHING (WRVU 0.84) performed by Miryam Wiley MD at [facility] OR ??? TUBAL LIGATION MEDS: Medication Sig ??? ALBUTEROL INHL Inhale into the lungs as needed. ??? polyethylene glycoL (Miralax) 17 gram/dose Powder Take 17 g by mouth daily as needed for up to 30 doses. ??? acetaminophen 500 mg Tablet Take 1 tablet by mouth every 6 hours as needed for Pain. ALL: No Known Allergies FHx: Family History Problem Relation Age of Onset ??? Cancer Father pancreas SHx: Social History Tobacco Use ??? Smoking status: Current Every Day Smoker Packs/day: 0.50 Years: 40.00 Pack years: 20.00 Types: Cigarettes ??? Smokeless tobacco: Never Used Vaping Use ??? Vaping Use: Never used Substance Use Topics ??? Alcohol use: Never Comment: almost 20 years ??? Drug use: Never Vitals: Afebrile, HR 60-70s, normotensive (120-140 / 60-80) EXAM: Gen: no distress, resting comfortably in ED stretcher, obese HEENT: dry mucous membranes, no scleral icterus CV: HR 70s regular, radial pulses 2+ b/l Pulm: breathing comfortably on 2L GI/Abd: soft, obese, left-sided umbilical hernia visible, very tender to palpation of this, does nottolerate attempted reduction, no overlying skin changes MSK: extremities warm and well perfused, no notable edema Neuro: no focal deficits Skin: no lesions or rashes noted LABS: Recent Labs 04/24/21 1750 WBC 20.8* HGB 17.3* HCT 51.4* PLATELET 316 NEUTROABS 16.29* Recent Labs 04/24/21 1750 NA 136 K 4.0 CL 97* CO2 24 BUN 32* CREATININE 0.75 Recent Labs 04/24/21 1750 AST 14 ALT 18 ALKPHOS 118* BILITOT 0.4 IMAGING/DIAGNOSTICS: CT A/P - images personally reviewed 1. Infraumbilical ventral hernia containing small bowel loop with associated fluid, inflammatory change and caliber change with proximal small bowel dilatation consistent with hernia with incarcerated small bowel and obstruction. 2. Ventral hernia superior to the left of the umbilicus containing transverse colon without obstruction of the transverse colon. IMPRESSION: 60F with recurrent incarcerated ventral hernia. Unable to be reduced at bedside, concerning for possible strangulation given tenderness on exam and elevated WBC count. The rationale for surgical intervention was discussed with the patient, specifically the primary goal of surgery to evaluate the bowel, ensure viability, and resect anything compromised. We discussed that we will also fix the hernia at that time, but it will almost certainly be a primary repair and given her class III obesity and active smoking, she has an almost 100% recurrence rate, which she understands. The risks of bleeding, infection, injury to surrounding structures, need for further procedures, need for ostomy, and recurrence were discussed with the patient and all questions answered. PLAN: - To OR as B case for ex lap, repair of incarcerated recurrent incisional hernia, possible bowel resection - NPO - NGT to LCWS - IVF resuscitation - Zosyn - SQH DVT ppx - Admit to ACS post-op Thank you for allowing us to participate in the care of this patient. Please do not hesitate to callwith any questions or concerns. Bentley Dale MD [phone] 04/25/2021 12:27 AM documented in this encounter Plan of Treatment Upcoming Encounters Date Type Specialty Care Team Description 09/30/2021 Office Visit General Surgery Paloma Mota, SCRIBING MACHINE OPERATOR [facility] ER GENERAL SURGERY [place], [place] [address] (Wo rk) 09/30/2021 Office Visit Infectious Diseases Werner Harrell MD [facility] ER INFECTIOUS DISEA [place], [place] [address] (Wo rk) documented as of this encounter Procedures Procedure Name Priority Date/Time Associated Diagnosis Comme nts POCT GLUCOSE Routine 04/28/2021 7:45 Results for this AM EST procedure are i n the results section. POCT GLUCOSE Routine 04/28/2021 3:59 Results for this AM EST procedure are i n the results section. HC VENIPUNCTURE Routine 04/28/2021 2:24 Results f or this AM EST procedure are i n the results section. HC PHOSPHORUS, SERUM Routine 04/28/2021 2:24 Resu lts for this AM EST procedure are i n the results section. HC MAGNESIUM, SERUM Routine 04/28/2021 2:24 Resul ts for this AM EST procedure are i n the results section. BASIC METABOLIC PANEL Routine 04/28/2021 2:24 Res ults for this (NON-FASTING) AM EST procedure are in the results section. POCT GLUCOSE Routine 04/27/2021 11:08 Results for this PM EST procedure are i n the results section. COVID-19 PCR Routine 04/27/2021 8:00 Results for this PM EST procedure are i n the results section. POCT GLUCOSE Routine 04/27/2021 7:15 Results for this PM EST procedure are i n the results section. POCT GLUCOSE Routine 04/27/2021 3:24 Results for this PM EST procedure are i n the results section. POCT GLUCOSE Routine 04/27/2021 12:31 Results for this PM EST procedure are i n the results section. POCT GLUCOSE Routine 04/27/2021 10:10 Results for this AM EST procedure are i n the results section. POCT GLUCOSE Routine 04/27/2021 4:09 Results for this AM EST procedure are i n the results section. HC HEMOGRAM Routine 04/27/2021 2:32 Results for this AM EST procedure are i n the results section. HC PHOSPHORUS, SERUM Routine 04/27/2021 2:32 Resu lts for this AM EST procedure are i n the results section. HC MAGNESIUM, SERUM Routine 04/27/2021 2:32 Resul ts for this AM EST procedure are i n the results section. BASIC METABOLIC PANEL Routine 04/27/2021 2:32 Res ults for this (NON-FASTING) AM EST procedure are in the results section. POCT GLUCOSE Routine 04/26/2021 11:16 Results for this PM EST procedure are i n the results section. URINALYSIS MICROSCOPIC Routine 04/26/2021 6:55 Re sults for this EXAM PM EST procedure are i n the results section. URINALYSIS WITH REFLEX Routine 04/26/2021 6:55 Re sults for this CULTURE PM EST procedure are i n the results section. POCT GLUCOSE Routine 04/26/2021 12:03 Results for this PM EST procedure are i n the results section. POCT GLUCOSE Routine 04/26/2021 8:01 Results for this AM EST procedure are i n the results section. POCT GLUCOSE Routine 04/26/2021 3:55 Results for this AM EST procedure are i n the results section. HEMOGRAM Routine 04/26/2021 1:58 Results for this AM EST procedure are i n the results section. DIFFERENTIAL, Routine 04/26/2021 1:58 Results for this AUTOMATED AM EST procedure are i n the results section. HC VENIPUNCTURE Routine 04/26/2021 1:58 AM EST PHOSPHORUS Routine 04/26/2021 1:58 Results for this AM EST procedure are i n the results section. MAGNESIUM Routine 04/26/2021 1:58 Results for this AM EST procedure are i n the results section. BASIC METABOLIC PANEL Routine 04/26/2021 1:58 Res ults for this (NON-FASTING) AM EST procedure are in the results section. POCT GLUCOSE Routine 04/25/2021 11:42 Results for this PM EST procedure are i n the results section. POCT GLUCOSE Routine 04/25/2021 8:21 Results for this PM EST procedure are i n the results section. POCT GLUCOSE Routine 04/25/2021 3:39 Results for this PM EST procedure are i n the results section. SCAN, PERIPHERAL BLOOD Routine 04/25/2021 6:00 Re sults for this AM EST procedure are i n the results section. HEMOGRAM Routine 04/25/2021 6:00 Results for this AM EST procedure are i n the results section. DIFFERENTIAL, Routine 04/25/2021 6:00 Results for this AUTOMATED AM EST procedure are i n the results section. HC CBC,PLT & AUTO DIFF Routine 04/25/2021 6:00 AM EST HC PHOSPHORUS, SERUM Routine 04/25/2021 6:00 Resu lts for this AM EST procedure are i n the results section. HC MAGNESIUM, SERUM Routine 04/25/2021 6:00 Resul ts for this AM EST procedure are i n the results section. BASIC METABOLIC PANEL Routine 04/25/2021 6:00 Res ults for this (NON-FASTING) AM EST procedure are in the results section. HERNIA REPAIR, VENTRAL 04/25/2021 3:11 incarcerated ve ntral OR INCISIONAL, AM EST hernia, recurrent RECURRENT, INCARCERATED (WRVU 15.53) HERNIA REPAIR,VENTRAL Routine 04/25/2021 2:45 OR INCISIONAL, AM EST RECURRENT, INCARCERATED XR ABDOMEN 1 VIEW Routine 04/25/2021 1:44 Results for this AM EST procedure are i n the results section. CT ABDOMEN AND PELVIS STAT 04/24/2021 10:01 Re sults for this W CONTRAST PM EST procedure are i n the results section. RAPID COVID-19 PCR STAT 04/24/2021 6:32 Result s for this ([facility]/APD/NLH) PM EST procedure are in the results section. L-LACTATE2 WHOLE BLOOD Routine 04/24/2021 6:13 Re sults for this PM EST procedure are i n the results section. HEMOGRAM STAT 04/24/2021 5:50 Results for this PM EST procedure are i n the results section. DIFFERENTIAL, STAT 04/24/2021 5:50 Results for this AUTOMATED PM EST procedure are i n the results section. HC CBC,PLT & AUTO DIFF STAT 04/24/2021 5:50 PM EST HC LIPASE STAT 04/24/2021 5:50 Results for this PM EST procedure are i n the results section. COMPREHENSIVE STAT 04/24/2021 5:50 Results for this METABOLIC PANEL PM EST procedure ar e in (NON-FASTING) the results section. documented in this encounter Results POCT Glucose (04/28/2021 7:45 AM EST) athologist Signature POC Glucose 103 65 - 199 NELLA NAVEEN mg/dL [facility] Comment: Supplemental ranges: <140 mg/dL before meals <180 mg/dL all other times of the day Specimen Anatomical Collection Method Collection Time Receive d Time (Source) Location / / Volume Laterality Blood 04/28/2021 7:45 AM 2 7:45 EST AM EST Gabriel Daniel MD POINT OF CARE TEST ORDERABLE S Performing Organization Address City/[facility]/ZIP Code Phon e Number [address] POCT Glucose (04/28/2021 3:59 AM EST) athologist Signature POC Glucose 113 65 - 199 [facility] NAVEEN mg/dL [facility] Comment: Supplemental ranges: <140 mg/dL before meals <180 mg/dL all other times of the day Specimen Anatomical Collection Method Collection Time Receive d Time (Source) Location / / Volume Laterality Blood 04/28/2021 3:59 AM 2 3:59 EST AM EST Gabriel Daniel MD POINT OF CARE TEST ORDERABLE S Performing Organization Address City/[facility]/[place] [address] Phosphorus (04/28/2021 2:24 AM EST) athologist Signature Phosphorus 3.1 2.5 - 4.5 NELLA NAVEEN mg/dL [facility] Specimen Anatomical Collection Method Collection Time Receive d Time (Source) Location / / Volume Laterality Blood 04/28/2021 2:24 AM 2 2:49 EST AM EST Resulting Agency Comment Spec In Lab Katalina Franco MD CHEMISTRY ORDERABLES Performing Organization Address City/[facility]/ZIP Code Phon e Number [address] Magnesium (04/28/2021 2:24 AM EST) athologist Signature Magnesium 0.77 0.69 - 1.07 [facility] mmol/L [facility] Specimen Anatomical Collection Method Collection Time Receive d Time (Source) Location / / Volume Laterality Blood 04/28/2021 2:24 AM 2 2:49 EST AM EST Resulting Agency Comment Spec In Lab Katalina Franco MD CHEMISTRY ORDERABLES Performing Organization Address City/State/ZIP Code Phon e Number [address] (ABNORMAL) Basic Metabolic Panel (non-fasting) (04/28/2021 2:24 AM EST) athologist Signature Glucose Lvl 110 65 - 199 [facility] mg/dL [facility] Comment: Diabetes: >=200 mg/dL plus symp toms BUN 14 8 - 18 mg/dL [facility] Creatinine 0.60 (L) 0.70 - 1.20 mg/dL [facility] Sodium 140 135 - 145 mmol/L [facility] Potassium 3.6 3.5 - 5.0 mmol/L [facility] Comment: Please note: ??Patients with [...] Anion Gap 12 5 - 15 mmol/L [facility] Calcium 8.9 8.5 - 10.5 mg/dL [facility] Estimated GFR 100 >=60 mL/min/1.73 [...] (Source) Location / / Volume Laterality Blood 04/28/2021 2:24 AM 2:49 EST AM EST Resulting Agency Comment Spec In Lab Katalina Franco MD CHEMISTRY ORDERABLES Performing Organization Address City/State/ZIP Code Phon e Number [place] [phone] (ABNORMAL) Hemogram (04/28/2021 2:24 AM EST) Analysis Performed At Patho logist Time Signature WBC 12.3 (H) 4.0 - 9.5 [facility] NAVEEN x10(3)/[facility] LABORATORY RBC 4.55 4.00 - FishidyNAVEEN 5.21 [facility] x10(6)/[facility] LABORATORY Hemoglobin 13.9 11.7 - NELLA NAVEEN 15.5 g/dL [facility] Hematocrit 42.9 35.7 - NELLA NAVEEN 45.8 % [facility] MCV 94.3 82.6 - [facility] NAVE[facility] 94.4 [facility] LABORATORY MCH 30.5 27.1 - NELLA NAVEEN 32.0 pg [facility] MCHC 32.4 31.7 - NELLA NAVEEN 35.0 g/dL [facility] Platelets 241 145 - 357 [facility] LABORATORY RDWSD 44.8 37.0 - [place]VEEN 46.0 [facility] LABORATORY RDWCV 12.8 11.5 - [place] 14.1 % [facility] MPV 9.7 7.6 - 12.9 [facility] nRBC % Auto 0.0 % [facility] nRBC Abs Auto 0.000 0.000 - NELLA HODGE 0.000 [facility] x10(3)/[facility] LABORATORY Specimen Anatomical Collection Method Collection Time Receive d Time (Source) Location / / Volume Laterality Blood 04/28/2021 2:24 AM 2:49 EST AM EST Resulting Agency Comment Spec In Lab Katalina Franco MD HEMATOLOGY ORDERABLES Performing Organization Address City/State/ZIP Code Phon e Number [address] POCT Glucose (04/27/2021 11:08 PM EST) P athologist Signature POC Glucose 97 65 - 199 [facility] Comment: Supplemental ranges: <140 mg/dL before meals <180 mg/dL all other times of the day Specimen Anatomical Collection Method Collection Time Receive d Time (Source) Location / / Volume Laterality Blood 04/27/2021 11:08 04/27/2021 PM EST 11:08 PM EST Gabriel Daniel MD POINT OF CARE TEST ORDERABLE S Performing Organization Address City/State/ZIP Code Phon e Number [address] COVID-19 PCR (04/27/2021 8:00 PM EST) Patholo gist Method Time Signature SARS-CoV-2 Not Detected Not Detected NELLA CHIANG [facility] Comment: This result should be interpreted [...] diagnosis of COVID-19 is performed using the [employer] VERONICA S-CoV-2 Assay as authorized by the FDA Emergency Use Authorization (EUA). This EUA assay is intended for In-vitro Diagnostic (IVD) use with respiratory sp ecimens such as nasopharyngeal swabs collected from individuals during the ac aniak phase of infection. This assay is performed based on the instructions for use provided by [employer] and additional guidance provided by CDC and FDA. Testing is performed in the [facility] Laboratory within the Department of Pathology and Laboratory Medicine at [facility], certified under the Clinical Laboratory [...] fact sheets at the following FDA website: https://www.fda.gov/medical-devices/ldvkoeesdzq-ufdrggk-6869-ijzxo-73-vpyisjgjw- eix-ufqcjrafrgfwcx-qmfdozd-devices/qkstk-rcnthyeisdk-stfb SARS-Cov-2 RNA Source ACUPUNCTURE PHYSICIAN Swab [facility] Specimen (Source) Anatomical Collection Method Collection Time Re ceived Time Location / / Volume Laterality Nasopharyngeal Swab 04/27/2021 8:00 04/28 PM EST 4:08 PM EST Comment: Symptoms->Surveillance Resulting Agency Comment Spec In Lab Gabriel Daniel MD MICROBIOLOGY - GENERAL ORDER ARLEY Performing Organization Address City/[facility]/ZIP Code Phon e Number [address] POCT Glucose (04/27/2021 7:15 PM EST) athologist Signature POC Glucose 90 65 - 199 NELLA NAVEEN mg/dL [facility] Comment: Supplemental ranges: <140 mg/dL before meals <180 mg/dL all other times of the day Specimen Anatomical Collection Method Collection Time Receive d Time (Source) Location / / Volume Laterality Blood 04/27/2021 7:15 PM 2 7:15 EST PM EST Gabriel Daniel MD POINT OF CARE TEST ORDERABLE S Performing Organization Address City/[facility]/[place] [address] POCT Glucose (04/27/2021 3:24 PM EST) athologist Signature POC Glucose 103 65 - 199 [facility] mg/dL [facility] Comment: Supplemental ranges: <140 mg/dL before meals <180 mg/dL all other times of the day Specimen Anatomical Collection Method Collection Time Receive d Time (Source) Location / / Volume Laterality Blood 04/27/2021 3:24 PM 2 3:24 EST PM EST Gabriel Daniel MD POINT OF CARE TEST ORDERABLE S Performing Organization Address City/[facility]/ZIP Code Phon e Number [address] POCT Glucose (04/27/2021 12:31 PM EST) athologist Signature POC Glucose 177 65 - 199 [facility] mg/dL [facility] Comment: Supplemental ranges: <140 mg/dL before meals <180 mg/dL all other times of the day Specimen Anatomical Collection Method Collection Time Receive d Time (Source) Location / / Volume Laterality Blood 04/27/2021 12:31 04/27/2021 PM EST 12:31 PM EST Gabriel Daniel MD POINT OF CARE TEST ORDERABLE S Performing Organization Address City/[facility]/ZIP Code Phon e Number [address] POCT Glucose (04/27/2021 10:10 AM EST) P athologist Signature POC Glucose 77 65 - 199 NELLA HERNANDEZNAVEEN mg/dL [facility] Comment: Supplemental ranges: <140 mg/dL before meals <180 mg/dL all other times of the day Specimen Anatomical Collection Method Collection Time Receive d Time (Source) Location / / Volume Laterality Blood 04/27/2021 10:10 04/27/2021 AM EST 10:10 AM EST Gabriel Daniel MD POINT OF CARE TEST ORDERABLE S Performing Organization Address [facility]/ZIP Code Phon e Number [address] POCT Glucose (04/27/2021 4:09 AM EST) athologist Signature POC Glucose 89 65 - 199 [place]A HERNANDE[place]NAVEEN mg/dL [facility] LABORATORY Comment: Supplemental ranges: <140 mg/dL before meals <180 mg/dL all other times of the day Specimen Anatomical Collection Method Collection Time Receive d Time (Source) Location / / Volume Laterality Blood 04/27/2021 4:09 AM 2 4:09 EST AM EST Gabriel Daniel MD POINT OF CARE TEST ORDERABLE S Performing Organization Address City/[facility]/ZIP Code Phon e Number [address] Phosphorus (04/27/2021 2:32 AM EST) P athologist Signature Phosphorus 2.7 2.5 - 4.5 [place] HERNANDEZNAVEEN mg/dL [facility] LABORATORY Specimen Anatomical Collection Method Collection Time Receive d Time (Source) Location / / Volume Laterality Blood 04/27/2021 2:32 AM 3:02 EST AM EST Resulting Agency Comment Spec In Lab Katalina Franco MD CHEMISTRY ORDERABLES Performing Organization Address City/[facility]/ZIP [place] [address] [facility] [address] Magnesium (04/27/2021 2:32 AM EST) athologist Signature Magnesium 0.81 0.69 - 1.07 [facility] mmol/L [facility] LABOR[facility]ORY Specimen Anatomical Collection Method Collection Time Receive d Time (Source) Location / / Volume Laterality Blood 04/27/2021 2:32 AM 3:02 EST AM EST Resulting Agency Comment Spec In Lab Katalina Franco MD CHEMISTRY ORDERABLES Performing Organization Address City/State/ZIP [place] [address] [facility] [address] (ABNORMAL) Basic Metabolic Panel (non-fasting) (04/27/2021 2:32 AM EST) athologist Signature Glucose Lvl 96 65 - 199 [facility] mg/dL [facility]OR[facility] Comment: Diabetes: >=200 mg/dL plus symp toms BUN 15 8 - 18 mg/dL [facility] LABORATORY Creatinine 0.61 (L) 0.70 - 1.20 mg/dL [facility] LABORATORY Sodium 141 135 - 145 mmol/L [facility] LABORATORY Potassium 3.4 (L) 3.5 - 5.0 mmol/L [facility] Comment: Please note: ??Patients with WBC >100,00 0 may have falsely elevated Potassium levels. ??For accurate Potassium quantif ication in these patients send serum separator tube (gold top) for subsequent determinations. ??Contact the Clinical Chemistry Laboratory if there are any qu estions. Chloride 100 98 - 107 mmol/L [facility]OR[facility] CO2 30 22 - 31 mmol/L [facility] Anion Gap 11 5 - 15 mmol/L [facility] Calcium 8.7 8.5 - 10.5 mg/dL [facility] Estimated GFR 100 >=60 mL/min/1.73 [...] (Source) Location / / Volume Laterality Blood 04/27/2021 2:32 AM 3:02 EST AM EST Resulting Agency Comment Spec In Lab Katalina Franco MD CHEMISTRY ORDERABLES Performing Organization Address City/State/ZIP [place] [address] (ABNORMAL) Hemogram (04/27/2021 2:32 AM EST) Analysis Performed At Patho logist Time Signature WBC 14.3 (H) 4.0 - 9.5 NELLA NAVEEN x10(3)/[facility] LABORATORY RBC 4.32 4.00 - NELLA NAVEEN 5.21 [facility] x10(6)/[facility] LABORATORY Hemoglobin 13.3 11.7 - NELLA NAVEEN 15.5 g/dL [facility] Hematocrit 41.8 35.7 - NELLA NAVEEN 45.8 % [facility] LABORATORY MCV 96.8 (H) 82.6 - [facility] NAVEEN 94.4 [facility] LABORATORY MCH 30.8 27.1 - NELLA NAVEEN 32.0 pg [facility] LABORATORY MCHC 31.8 31.7 - NELLA NAVEEN 35.0 g/dL [facility]OR[facility]ORY Platelets 214 145 - 357 NELLA [facility] x10(3)/[facility] LABORATORY RDWSD 47.0 (H) 37.0 - NELLA NAVEEN 46.0 [facility] LABORATORY RDWCV 13.2 11.5 - NELLA NAVEEN 14.1 % [facility] LABORATORY MPV 9.7 7.6 - 12.9 NELLA NAVEEN [facility] LABORATORY nRBC % Auto 0.0 % [facility]ORAT[facility] nRBC Abs Auto 0.000 0.000 - [facility] 0.000 [facility] x10(3)/[facility] LABORATORY Specimen Anatomical Collection Method Collection Time Receive d Time (Source) Location / / Volume Laterality Blood 04/27/2021 2:32 AM 3:02 EST AM EST Resulting Agency Comment Spec In Lab Katalina Franco MD HEMATOLOGY ORDERABLES Performing Organization Address City/State/ZIP Code Phon e Number [address] POCT Glucose (04/26/2021 11:16 PM EST) athologist Signature POC Glucose 82 65 - 199 [facility] mg/dL [facility] Comment: Supplemental ranges: <140 mg/dL before meals <180 mg/dL all other times of the day Specimen Anatomical Collection Method Collection Time Receive d Time (Source) Location / / Volume Laterality Blood 04/26/2021 11:16 04/26/2021 PM EST 11:16 PM EST Gabriel Daniel MD POINT OF CARE TEST ORDERABLE S Performing Organization Address City/[facility]/ZIP Code Phon e Number [address] (ABNORMAL) Urinalysis Microscopic Exam (04/26/2021 6:55 PM EST) athologist Signature RBC UA 47 (H) 0 - 4 /HPF [facility] WBC UA 7 (H) 0 - 5 /HPF [facility] Squam Epith UA 1 <=4 /HPF [facility] Hyaline Cast 1 0 - 2 /LPF [facility] Specimen (Source) Anatomical Collection Method Collection Time Re ceived Time Location / / Volume Laterality Indwelling 04/26/2021 6:55 04/26/2021 7 :04 Catheter Urine PM EST PM EST Resulting Agency Comment Spec In Lab Sage Blunt MD URINE ORDERABLES Performing Organization Address City/State/ZIP Code Phon e Number [address] (ABNORMAL) Urinalysis with reflex Culture (04/26/2021 6:55 PM EST) Patholo gist Method Time Signature Glucose UA Negative Negative [facility] mg/dL [facility] Protein UA 30 (A) Negative [facility] mg/dL [facility] Bilirubin UA Negative Negative [facility] mg/dL [facility] Comment: Clinical correlation required for positi ve Urine Bilirubin results as false positive may occur with some drugs and d rug related products. If a false positive is suspected a serum total bili herring should be considered if clinically indicated. Urobilinogen UA Normal Normal mg/dL [facility] pH UA >=9.0 (A) 5.0 - 8.0 [facility]ORAT[facility] Blood UA Moderate (A) Negative mg/dL [facility] LABORATORY Ketones UA 40 (A) Negative mg/dL [facility] Nitrite UA Negative Negative [facility] Leukocytes UA Negative Negative [facility] LABORATORY Appearance UA Clear Clear [facility] Spec [place] UA 1.024 1.005 - 1.030 [facility] LABORATORY Color UA Yellow Yellow [facility] Culture Reflexed No [facility] LABORATORY Specimen (Source) Anatomical Collection Method Collection Time Re ceived Time Location / / Volume Laterality Indwelling 04/26/2021 6:55 04/26/2021 7 :04 Catheter Urine PM EST PM EST Resulting Agency Comment Spec In Lab Gabriel Daniel MD URINE ORDERABLES Performing Organization Address City/State/ZIP [place] [address] POCT Glucose (04/26/2021 12:03 PM EST) P athologist Signature POC Glucose 105 65 - 199 [facility] mg/dL [facility] Comment: Supplemental ranges: <140 mg/dL before meals <180 mg/dL all other times of the day Specimen Anatomical Collection Method Collection Time Receive d Time (Source) Location / / Volume Laterality Blood 04/26/2021 12:03 04/26/2021 PM EST 12:03 PM EST Katalina Franco MD POINT OF CARE TEST ORDERABLE S Performing Organization Address City/[facility]/ZIP Code Phon e Number [address] POCT Glucose (04/26/2021 8:01 AM EST) athologist Signature POC Glucose 137 65 - 199 [place] NAVEEN mg/dL [facility] Comment: Supplemental ranges: <140 mg/dL before meals <180 mg/dL all other times of the day Specimen Anatomical Collection Method Collection Time Receive d Time (Source) Location / / Volume Laterality Blood 04/26/2021 8:01 AM 2 8:01 EST AM EST Katalina Franco MD POINT OF CARE TEST ORDERABLE S Performing Organization Address [facility]/ZIP Code Phon e Number [address] POCT Glucose (04/26/2021 3:55 AM EST) athologist Signature POC Glucose 143 65 - 199 [place] NAVEEN mg/dL [facility] Comment: Supplemental ranges: <140 mg/dL before meals <180 mg/dL all other times of the day Specimen Anatomical Collection Method Collection Time Receive d Time (Source) Location / / Volume Laterality Blood 04/26/2021 3:55 AM 2 3:55 EST AM EST Katalina Franco MD POINT OF CARE TEST ORDERABLE S Performing Organization Address City/[facility]/[place] [address] (ABNORMAL) Phosphorus (04/26/2021 1:58 AM EST) athologist Signature Phosphorus 2.4 (L) 2.5 - 4.5 [place] NAVEEN mg/dL [facility]OR[facility] Specimen Anatomical Collection Method Collection Time Receive d Time (Source) Location / / Volume Laterality Blood Venous Draw / 04/26/2021 1:58 AM 04/26/19 2:24 Unknown EST AM EST Resulting Agency Comment Spec In Lab Jeremias Box MD CHEMISTRY ORDERABLES Performing Organization Address City/State/ZIP [place] [address] [facility] [address] Magnesium (04/26/2021 1:58 AM EST) P athologist Signature Magnesium 0.92 0.69 - 1.07 [facility] mmol/L [facility]OR[facility] Specimen Anatomical Collection Method Collection Time Receive d Time (Source) Location / / Volume Laterality Blood Venous Draw / 04/26/2021 1:58 AM 04/26/19 2:24 Unknown EST AM EST Resulting Agency Comment Spec In Lab Jeremias Box MD CHEMISTRY ORDERABLES Performing Organization Address City/State/ZIP Code Phon e Number [address] (ABNORMAL) Differential, Automated (04/26/2021 1:58 AM EST) Patholo gist Method Time Signature Neutrophils % 76.4 % [facility] Neutr Abs (ANC) 9.33 (H) 1.70 - [facility] 6.10 [facility] x10(3)/[facility] LABORATORY Lymphocytes % 11.8 % [facility] Lymphocytes Abs 1.4 0.9 - 3.2 [facility] x10(3)/[facility] LABORATORY Monocytes % 9.2 % [facility] Monocyte Abs 1.1 (H) 0.3 - 0.9 [facility] x10(3)/[facility] LABORATORY Eosinophils % 1.6 % [facility] Eosinophils Abs 0.2 0.0 - 0.4 [facility] x10(3)/[facility] LABORATORY Basophils % 0.3 % [facility] Basophils Abs 0.0 0.0 - 0.1 [facility] x10(3)/[facility] LABORATORY Immature Gran % 0.70 % [facility] Comment: Immature granulocytes(IG's)percentage an d absolute count will include metamyelocytes, myelocytes, and promyelo cytes. Blood smears from CBCs yielding IG's will be scanned manually for concchristopher danadrianna. If this scan disagrees with the automated IG or if promyelocytes are not ed, a manual differential will be performed. Shantell Gran Abs 0.08 (H) 0.00 - 0.04 x10(3)/[facility] LABORATORY Specimen Anatomical Collection Method Collection Time Receive d Time (Source) Location / / Volume Laterality Blood 04/26/2021 1:58 AM 2 2:21 EST AM EST Resulting Agency Comment Spec In Lab Sage Blunt MD HEMATOLOGY ORDERABLES Performing Organization Address City/State/ZIP [place] [address] (ABNORMAL) Hemogram (04/26/2021 1:58 AM EST) Analysis Performed At Patho logist Time Signature WBC 12.2 (H) 4.0 - 9.5 [facility] x10(3)/[facility] LABORATORY RBC 4.31 4.00 - [facility] 5.21 [facility] x10(6)/[facility] LABORATORY Hemoglobin 13.4 11.7 - [facility] 15.5 g/dL [facility] LAB[facility] Hematocrit 41.3 35.7 - [facility] 45.8 % [facility] LABORATORY MCV 95.8 (H) 82.6 - [facility] 94.4 [facility] LABORATORY MCH 31.1 27.1 - [facility] NAVEEN 32.0 pg [facility]ORATORY MCHC 32.4 31.7 - [facility] 35.0 g/dL [facility] Platelets 195 145 - 357 [facility] x10(3)/[facility] LABORATORY RDWSD 46.7 (H) 37.0 - [facility] NAVEEN 46.0 [facility] LABORATORY RDWCV 13.2 11.5 - [facility] NAVEEN 14.1 % [facility] LABORATORY MPV 9.5 7.6 - 12.9 [facility] LABORATORY nRBC % Auto 0.0 % [facility]ORAT[facility] nRBC Abs Auto 0.000 0.000 - [place] NAVEEN 0.000 [facility] x10(3)/[facility] LABORATORY Specimen Anatomical Collection Method Collection Time Receive d Time (Source) Location / / Volume Laterality Blood 04/26/2021 1:58 AM 2 2:21 EST AM EST Resulting Agency Comment Spec In Lab Sage Blunt MD HEMATOLOGY ORDERABLES Performing Organization Address City/State/ZIP [place] [address] (ABNORMAL) Basic Metabolic Panel (non-fasting) (04/26/2021 1:58 AM EST) P athologist Signature Glucose Lvl 151 65 - 199 [facility] mg/dL [facility] Comment: Diabetes: >=200 mg/dL plus symp toms BUN 21 (H) 8 - 18 mg/dL [facility] Creatinine 0.64 (L) 0.70 - 1.20 mg/dL [facility] Sodium 140 135 - 145 mmol/L [facility] Potassium 3.8 3.5 - 5.0 mmol/L [facility] Comment: Please note: ??Patients with WBC >100,00 0 may have falsely elevated Potassium levels. ??For accurate Potassium quantif ication in these patients send serum separator tube (gold top) for subsequent determinations. ??Contact the Clinical Chemistry Laboratory if there are any qu estions. Chloride 102 98 - 107 mmol/L [facility] CO2 30 22 - 31 mmol/L [facility] Anion Gap 8 5 - 15 mmol/L [facility] Calcium 8.3 (L) 8.5 - 10.5 mg/dL [facility] Estimated GFR 98 >=60 mL/min/1.73 m?? [facility] Comment: This patient? s estimated glomerular filtration rate (eGFR) is between 98 mL/min/1.73 m2 (patients with less muscl e mass) and 114 mL/min/1.73 m2 (patients with more muscle mass) [...] (Source) Location / / Volume Laterality Blood 04/26/2021 1:58 AM 2 2:21 EST AM EST Resulting Agency Comment Spec In Lab Katalina Franco MD CHEMISTRY ORDERABLES Performing Organization Address City/[facility]/ZIP Code Phon e Number [address] POCT Glucose (04/25/2021 11:42 PM EST) athologist Signature POC Glucose 138 65 - 199 [facility] mg/dL [facility] Comment: Supplemental ranges: <140 mg/dL before meals <180 mg/dL all other times of the day Specimen Anatomical Collection Method Collection Time Receive d Time (Source) Location / / Volume Laterality Blood 04/25/2021 11:42 04/25/2021 PM EST 11:42 PM EST Katalina Franco MD POINT OF CARE TEST ORDERABLE S Performing Organization Address City/[facility]/ZIP Code Phon e Number [address] POCT Glucose (04/25/2021 8:21 PM EST) athologist Signature POC Glucose 130 65 - 199 [facility] mg/dL [facility] Comment: Supplemental ranges: <140 mg/dL before meals <180 mg/dL all other times of the day Specimen Anatomical Collection Method Collection Time Receive d Time (Source) Location / / Volume Laterality Blood 04/25/2021 8:21 PM 2 8:21 EST PM EST Katalina Franco MD POINT OF CARE TEST ORDERABLE S Performing Organization Address City/[facility]/ZIP Code Phon e Number [address] POCT Glucose (04/25/2021 3:39 PM EST) athologist Signature POC Glucose 158 65 - 199 [facility] mg/dL [facility] Comment: Supplemental ranges: <140 mg/dL before meals <180 mg/dL all other times of the day Specimen Anatomical Collection Method Collection Time Receive d Time (Source) Location / / Volume Laterality Blood 04/25/2021 3:39 PM 2 3:39 EST PM EST Katalina Franco MD POINT OF CARE TEST ORDERABLE S Performing Organization Address City/State/ZIP Code Phon e Number [address] Scan, Peripheral Blood (04/25/2021 6:00 AM EST) P athologist Signature Plat Estimate Normal [facility] RBC Morphology Normal [facility] Specimen Anatomical Collection Method Collection Time Receive d Time (Source) Location / / Volume Laterality Blood 04/25/2021 6:00 AM 2 6:06 EST AM EST Resulting Agency Comment Spec In Lab Bentley Dale MD HEMATOLOGY ORDERABLES Performing Organization Address City/[facility]/[place] [address] (ABNORMAL) Differential, Automated (04/25/2021 6:00 AM EST) Patholo gist Method Time Signature Neutrophils % 88.4 % [facility] Neutr Abs (ANC) 20.57 (H) 1.70 - [facility] 6.10 [facility] x10(3)/[facility] LABORATORY Lymphocytes % 7.4 % [facility] Lymphocytes Abs 1.7 0.9 - 3.2 [facility] x10(3)/[facility] LABORATORY Monocytes % 3.0 % [facility] Monocyte Abs 0.7 0.3 - 0.9 [facility] x10(3)/[facility] LABORATORY Eosinophils % 0.3 % [facility] Eosinophils Abs 0.1 0.0 - 0.4 [facility] x10(3)/[facility] LABORATORY Basophils % 0.3 % [facility] Basophils Abs 0.1 0.0 - 0.1 [facility] x10(3)/[facility] LABORATORY Immature Gran % 0.60 % [facility] Comment: Immature granulocytes(IG's)percentage an d absolute count will include metamyelocytes, myelocytes, and promyelo cytes. Blood smears from CBCs yielding IG's will be scanned manually for flor holguin. If this scan disagrees with the automated IG or if promyelocytes are not ed, a manual differential will be performed. Shantell Gran Abs 0.15 (H) 0.00 - 0.04 x10(3)/[facility] LABORATORY Specimen Anatomical Collection Method Collection Time Receive d Time (Source) Location / / Volume Laterality Blood 04/25/2021 6:00 AM 6:06 EST AM EST Resulting Agency Comment Spec In Lab Bentley Dale MD HEMATOLOGY ORDERABLES Performing Organization Address City/State/ZIP [place] [address] (ABNORMAL) Hemogram (04/25/2021 6:00 AM EST) Analysis Performed At Patho logist Time Signature WBC 23.3 (H) 4.0 - 9.5 [facility] x10(3)/[facility] LABORATORY RBC 5.17 4.00 - [facility] NAVEEN 5.21 [facility] x10(6)/[facility] LABORATORY Hemoglobin 15.8 (H) 11.7 - [facility] N[facility]EN 15.5 g/dL [facility] Hematocrit 48.6 (H) 35.7 - [facility] 45.8 % [facility] MCV 94.0 82.6 - [facility] 94.4 [facility] LABORATORY MCH 30.6 27.1 - [place]LLA NAVEEN 32.0 pg [facility] MCHC 32.5 31.7 - [facility] 35.0 g/dL [facility] Platelets 275 145 - 357 [facility](3[facility] LABORATORY RDWSD 45.0 37.0 - [place]LLA NAVEEN 46.0 [facility] LABORATORY RDWCV 12.9 11.5 - [place]A NAVEEN 14.1 % [facility] LABORATORY MPV 9.4 7.6 - 12.9 [facility] LABORATORY nRBC % Auto 0.0 % [facility] nRBC Abs Auto 0.000 0.000 - NELLA HODGE 0.000 [facility] x10(3)/[facility] LABORATORY Specimen Anatomical Collection Method Collection Time Receive d Time (Source) Location / / Volume Laterality Blood 04/25/2021 6:00 AM 2 6:06 EST AM EST Resulting Agency Comment Spec In Lab Bentley Dale MD HEMATOLOGY ORDERABLES Performing Organization Address City/[facility]/ZIP Code Phon e Number [address] Phosphorus (04/25/2021 6:00 AM EST) P athologist Signature Phosphorus 3.4 2.5 - 4.5 [facility] mg/dL [facility] Specimen Anatomical Collection Method Collection Time Receive d Time (Source) Location / / Volume Laterality Blood 04/25/2021 6:00 AM 2 6:06 EST AM EST Resulting Agency Comment Spec In Lab Katalina Franco MD CHEMISTRY ORDERABLES Performing Organization Address City/[facility]/ZIP Code Phon e Number [address] Magnesium (04/25/2021 6:00 AM EST) P athologist Signature Magnesium 1.07 0.69 - 1.07 [facility] mmol/L [facility]OR[facility]ORY Specimen Anatomical Collection Method Collection Time Receive d Time (Source) Location / / Volume Laterality Blood 04/25/2021 6:00 AM 2 6:06 EST AM EST Resulting Agency Comment Spec In Lab Katalina Franco MD CHEMISTRY ORDERABLES Performing Organization Address City/[facility]/ZIP [facility] Phon e Number [address] (ABNORMAL) Basic Metabolic Panel (non-fasting) (04/25/2021 6:00 AM EST) P athologist Signature Glucose Lvl 171 65 - 199 [facility]/dL [facility] Comment: Diabetes: >=200 mg/dL plus symp toms BUN 25 (H) 8 - 18 mg/dL [facility] LABORATORY Creatinine 0.73 0.70 - 1.20 mg/dL [facility] Sodium 136 135 - 145 mmol/L [facility] Potassium 4.6 3.5 - 5.0 mmol/L [facility] Comment: Please note: ??Patients with WBC >100,00 0 may have falsely elevated Potassium levels. ??For accurate Potassium quantif ication in these patients send serum separator tube (gold top) for subsequent determinations. ??Contact the Clinical Chemistry Laboratory if there are any qu estions. Chloride 102 98 - 107 mmol/L [facility] CO2 23 22 - 31 mmol/L [facility] Anion Gap 11 5 - 15 mmol/L [facility] Calcium 8.7 8.5 - 10.5 mg/dL [facility] Comment: result rechecked-bm Estimated GFR 91 >=60 mL/min/1.73 m?? [facility] Comment: This patient? s estimated glomerular filtration rate (eGFR) is between 91 mL/min/1.73 m2 (patients with less muscl e mass) and 105 mL/min/1.73 m2 (patients with more muscle mass) [...] (Source) Location / / Volume Laterality Blood 04/25/2021 6:00 AM 6:06 EST AM EST Resulting Agency Comment Spec In Lab Katalina Franco MD CHEMISTRY ORDERABLES Performing Organization Address City/State/[place] [address] XR Abdomen 1 view (Generic) (04/25/2021 1:44 AM EST) Anatomical Region Laterality Modality Abdomen N/A Digital Radiography Specimen (Source) Anatomical Location Collection Method / Collectio n Time Received Time / Laterality Volume Impressions 04/25/2021 2:31 AM EST Enteric tube tip and side-port project over the stomach. Thank you for letting us participate in the care of this patient. ??If you are a health care provider and have any questi ons regarding this report, please contact the number below. ??For patients who have questions please contact the health skin care specialist that requested your imaging first. ? Narrative 04/25/2021 2:31 AM EST EXAMINATION: XR ABDOMEN 1 VIEW (GENERIC) CLINICAL HISTORY: confirm NGT placement TECHNIQUE: Portable abdominal radiograph COMPARISON: CT of the abdomen and pelvis 04/24/2021 FINDINGS: Enteric tube projects below the diaphrag m with tip and side port projecting over the stomach. No gaseous distention of th e stomach. There is contrast opacification of the nondilated left evelyn al collecting system and partially visualized bladder from prior contrast e nhanced CT. Procedure Note Kenny Chopra MD - 04/25/2021Fo rmatting of this note might be different from the original. EXAMINATION: XR ABDOMEN 1 VIEW (GENERIC) CLINICAL HISTORY: confirm NGT placement TECHNIQUE: Portable abdominal radiograph COMPARISON: CT of the abdomen and pelvis 04/24/2021 FINDINGS: Enteric tube projects below the diaphrag m with tip and side port projecting over the stomach. No gaseous distention of th e stomach. There is contrast opacification of the nondilated left evelyn al collecting system and partially visualized bladder from prior contrast e nhanced CT. IMPRESSION Enteric tube tip and side-port project o laura the stomach. Thank you for letting us participate in the care of this patient. If you are a health care provider and have any questi ons regarding this report, please contact the number below. For patients w ho have questions please contact the health skin care specialist that requested your imaging first. Katalina Franco MD IMG DX ORDERABLES CT Abdomen & Pelvis w Contrast (04/24/2021 10:01 PM EST) Anatomical Region Laterality Modality Abdomen, Pelvis Computed Tomography Specimen (Source) Anatomical Collection Method Collection Time Re ceived Time Location / / Volume Laterality 04/24/2021 10:22 PM EST Impressions 04/24/2021 11:20 PM EST 1. ??Infraumbilical ventral hernia containing small bowel loop with associated fluid, inflammatory change and caliber c hange with proximal small bowel dilatation consistent with hernia with i ncarcerated small bowel and obstruction. 2. ??Ventral hernia superior to the left of the umbilicus containing transverse colon without obstruction of the transve rse colon. Thank you for letting us participate in the care of this patient. ??If you are a health care provider and have any questi ons regarding this report, please contact the number below. ??For patients who have questions please contact the health skin care specialist that requested your imaging first. ? Narrative 04/24/2021 11:20 PM EST EXAMINATION: CT ABDOMEN AND PELVIS W CONTRAST CLINICAL HISTORY: LLQ abdominal pain TECHNIQUE: Helical CT of the abdomen and pelvis was performed following the intravenous administration of contrast. Administered 120.0 ml of OMNIPAQUE 350.00 mg/ml. No oral contrast COMPARISON: 04/24/2020 FINDINGS: Lower chest: Right basilar atelectasis. Normal heart size and no pericardial effusion. Liver: Diffuse low-attenuation consisten t with hepatic steatosis. No focal lesion. Bile ducts: Mild prominence of common he patic duct tapering in the common bile duct, normal postcholecystectomy appeara nce and stable compared to prior exam Gallbladder: Surgically absent Pancreas: Normal attenuation without rolly blu dilatation. Spleen: Normal. Adrenals: Normal. Kidneys: Symmetric nephrograms. No obstr uction. Low-attenuation lesion left kidney posteriorly image 53 series 3, to o small to characterize. Urinary Bladder: Normal. Vasculature: Atherosclerotic disease wit hout aneurysm. Patent portal vein. Patent hepatic veins. Lymph Nodes: No enlarged lymph nodes. Bowel: Sigmoid diverticuli without infla mmatory changes. Decompressed descending and sigmoid colo n. Loop of transverse colon projecting in t he ventral hernia just cephalad and to the left of the umbilicus without eviden ce of obstruction, bowel wall thickening or adjacent fluid. There is normal appearance of the distal esophagus, stomach, duodenal C-sweep and proximal small bowel. There is dilat ation of the mid small bowel with few air-fluid levels. There is a loop of sma ll bowel projecting in a ventral hernia inferior to the umbilicus with associate d fluid, inflammatory changes and caliber change with decompressed small b owel distal to the hernia. Normal terminal ileum. Normal appendix Peritoneum and mesentery: No ascites, fr ee air, or loculated fluid collection. No mesenteric inflammation. Abdominal wall: 2 ventral hernias as reed cribed in the bowel paragraph above. Reproductive organs: Status post hystere ctomy Osseous structures: Grade 1 spondylolist hesis L5 on S1. Posterior fusion L4-5 and L5-S1. Extensive asymmetric right greater than left disc degenerative change T12-L1 with retrolisthesis of T12 on L1. Procedure Note Werner Fletcher MD - 04/24/2021Formatt ing of this note might be different from the original. EXAMINATION: CT ABDOMEN AND PELVIS W CON TRAST CLINICAL HISTORY: LLQ abdominal pain TECHNIQUE: Helical CT of the abdomen and pelvis was performed following the intravenous administration of contrast. Administered 120.0 ml of OMNIPAQUE 350.00 mg/ml. No oral contrast COMPARISON: 04/24/2020 FINDINGS: Lower chest: Right basilar atelectasis. Normal heart size and no pericardial effusion. Liver: Diffuse low-attenuation consisten t with hepatic steatosis. No focal lesion. Bile ducts: Mild prominence of common he patic duct tapering in the common bile duct, normal postcholecystectomy appeara nce and stable compared to prior exam Gallbladder: Surgically absent Pancreas: Normal attenuation without rolly blu dilatation. Spleen: Normal. Adrenals: Normal. Kidneys: Symmetric nephrograms. No obstr uction. Low-attenuation lesion left kidney posteriorly image 53 series 3, to o small to characterize. Urinary Bladder: Normal. Vasculature: Atherosclerotic disease wit hout aneurysm. Patent portal vein. Patent hepatic veins. Lymph Nodes: No enlarged lymph nodes. Bowel: Sigmoid diverticuli without infla mmatory changes. Decompressed descending and sigmoid colo n. Loop of transverse colon projecting in t he ventral hernia just cephalad and to the left of the umbilicus without eviden ce of obstruction, bowel wall thickening or adjacent fluid. There is normal appearance of the distal esophagus, stomach, duodenal C-sweep and proximal small bowel. There is dilat ation of the mid small bowel with few air-fluid levels. There is a loop of sma ll bowel projecting in a ventral hernia inferior to the umbilicus with associate d fluid, inflammatory changes and caliber change with decompressed small b owel distal to the hernia. Normal terminal ileum. Normal appendix Peritoneum and mesentery: No ascites, fr ee air, or loculated fluid collection. No mesenteric inflammation. Abdominal wall: 2 ventral hernias as reed cribed in the bowel paragraph above. Reproductive organs: Status post hystere ctomy Osseous structures: Grade 1 spondylolist hesis L5 on S1. Posterior fusion L4-5 and L5-S1. Extensive asymmetric right greater than left disc degenerative change T12-L1 with retrolisthesis of T12 on L1. IMPRESSION 1. Infraumbilical ventral hernia contain ing small bowel loop with associated fluid, inflammatory change and caliber c hange with proximal small bowel dilatation consistent with hernia with i ncarcerated small bowel and obstruction. 2. Ventral hernia superior to the left o f the umbilicus containing transverse colon without obstruction of the transve rse colon. Thank you for letting us participate in the care of this patient. If you are a health care provider and have any questi ons regarding this report, please contact the number below. For patients w ho have questions please contact the health skin care specialist that requested your imaging first. Viviana Camacho MD IMG CT ORDERABLES COVID-19 PCR (04/24/2021 6:32 PM EST) [facility] Method Time Signature SARS-CoV-2 Not Detected Not Detected NELLA RNA PCR [facility] Comment: This result should be interpreted [...] using the Simplexa COVID-19 Direct Assay by [employer] as authorized by the FDA issued Emergency [...] Department of Pathology and Laboratory Medicine at [facility], certified under the Clinical Laboratory Improvement [...] clinical management guidance information are available at [facility] CDC Coronavirus Disease 2019 (COVID-19) webpage under Information fo r Healthcare Professionals (https://www.cdc.gov/coronavirus/2019-nc ov/hcp/index.html). Additional information about this and ot her EUA tests can be found in provider and patient fact sheets at the following FDA website: https://www.fda.gov/medical-devices/sdftnqrcjab-sonahah-9581-cewxd-45-sxsjcdjws- zil-wdsmccbjbvbkjy-wegdida-devices/opnil-gnvkvllpgkf-mdwq SARS-CoV-2 Source ACUPUNCTURE PHYSICIAN Swab [facility] Specimen (Source) Anatomical Collection Method Collection Time Re ceived Time Location / / Volume Laterality Nasopharyngeal Swab 04/24/2021 6:32 04/24 PM EST 7:24 PM EST Comment: Symptoms->Surveillance Resulting Agency Comment Spec In Lab James Nichole MD MICROBIOLOGY - GENERAL ORDER ARLEY Performing Organization Address City/[facility]/ZIP Code Phon e Number [address] (ABNORMAL) L-Lactate2 Whole Blood (04/24/2021 6:13 PM EST) P athologist Signature Lactate WB 2.3 (H) 0.5 - 2.2 [facility] mmol/L [facility] Specimen Anatomical Collection Method Collection Time Receive d Time (Source) Location / / Volume Laterality Blood 04/24/2021 6:13 PM 6:13 EST PM EST James Nichole MD CHEMISTRY ORDERABLES Performing Organization Address City/[facility] Phon e Number [address] (ABNORMAL) Differential, Automated (04/24/2021 5:50 PM EST) Patholo gist Method Time Signature Neutrophils % 78.1 % [facility] Neutr Abs (ANC) 16.29 (H) 1.70 - [facility] 6.10 [facility] x10(3)/[facility] L LABORATORY Lymphocytes % 14.3 % [facility] Lymphocytes Abs 3.0 0.9 - 3.2 [facility] x10(3)/[facility] LABORATORY Monocytes % 5.6 % [facility] Monocyte Abs 1.2 (H) 0.3 - 0.9 [facility] x10(3)/[facility] LABORATORY Eosinophils % 0.8 % [facility] Eosinophils Abs 0.2 0.0 - 0.4 [facility] x10(3)/[facility] LABORATORY Basophils % 0.5 % [facility] Basophils Abs 0.1 0.0 - 0.1 [facility] x10(3)/[facility] LABORATORY Immature Gran % 0.70 % [facility] Comment: Immature granulocytes(IG's)percentage an d absolute count will include metamyelocytes, myelocytes, and promyelo cytes. Blood smears from CBCs yielding IG's will be scanned manually for concor dance. If this scan disagrees with the automated IG or if promyelocytes are not ed, a manual differential will be performed. Shanetll Gran Abs 0.15 (H) 0.00 - 0.04 x10(3)/[facility] LABORATORY Specimen Anatomical Collection Method Collection Time Receive d Time (Source) Location / / Volume Laterality Blood 04/24/2021 5:50 PM 6:44 EST PM EST Resulting Agency Comment Spec In Lab Noel ROMAN HEMATOLOGY ORDERABLES Performing Organization Address City/State/ZIP [place] [address] (ABNORMAL) Hemogram (04/24/2021 5:50 PM EST) Analysis Performed At Patho logist Time Signature WBC 20.8 (H) 4.0 - 9.5 [facility] x10(3)/[facility] LABORATORY RBC 5.59 (H) 4.00 - [facility] 5.21 [facility] x10(6)/[facility] LABORATORY Hemoglobin 17.3 (H) 11.7 - [facility] 15.5 g/dL [facility] Hematocrit 51.4 (H) 35.7 - [facility] 45.8 % [facility] MCV 91.9 82.6 - NELLA HERNANDEZNAVEEN 94.4 [facility] LABORATORY MCH 30.9 27.1 - NELLA HERNANDEZNAVEEN 32.0 pg [facility] MCHC 33.7 31.7 - NELLA SHANNONCOCK 35.0 g/dL [facility] Platelets 316 145 - 357 [facility] x10(3)/[facility] LABORATORY RDWSD 44.4 37.0 - NELLA NAVEEN 46.0 [facility] LABORATORY RDWCV 13.1 11.5 - NELLA NAVEEN 14.1 % [facility] LABORATORY MPV 9.7 7.6 - 12.9 NELLA HODGE [facility] LABORATORY nRBC % Auto 0.0 % [facility] nRBC Abs Auto 0.000 0.000 - NELLA NAVEEN 0.000 [facility] x10(3)/[facility] LABORATORY Specimen Anatomical Collection Method Collection Time Receive d Time (Source) Location / / Volume Laterality Blood 04/24/2021 5:50 PM 2 6:44 EST PM EST Resulting Agency Comment Spec In Lab Noel ROMAN HEMATOLOGY ORDERABLES Performing Organization Address City/[facility]/[place] [address] Lipase (04/24/2021 5:50 PM EST) P athologist Signature Lipase 17 0 - 60 [facility] unit/L [facility] Specimen Anatomical Collection Method Collection Time Receive d Time (Source) Location / / Volume Laterality Blood 04/24/2021 5:50 PM 2 6:44 EST PM EST Resulting Agency Comment Spec In Lab Carl Coronado MD CHEMISTRY ORDERABLES Performing Organization Address City/[facility] [place] [address] (ABNORMAL) Comprehensive metabolic panel (non-fasting) (04/24/2021 5:50 PM EST) P athologist Signature Glucose Lvl 156 65 - 199 [facility] mg/dL [facility] Comment: Diabetes: >=200 mg/dL plus symp toms BUN 32 (H) 8 - 18 mg/dL [facility] Creatinine 0.75 0.70 - 1.20 mg/dL [facility] Sodium 136 135 - 145 mmol/L [facility] Potassium 4.0 3.5 - 5.0 mmol/L [facility] Comment: Please note: ??Patients with WBC >100,00 0 may have falsely elevated Potassium levels. ??For accurate Potassium quantif ication in these patients send serum separator tube (gold top) for subsequent determinations. ??Contact the Clinical Chemistry Laboratory if there are any qu estions. Chloride 97 (L) 98 - 107 mmol/L [facility] CO2 24 22 - 31 mmol/L [facility] Anion Gap 15 5 - 15 mmol/L [facility] Calcium 10.1 8.5 - 10.5 mg/dL [facility] Total Protein 7.7 6.1 - 8.0 g/dL [facility] Albumin 4.3 3.2 - 5.2 g/dL [facility] AST 14 0 - 30 unit/L [facility] ALT 18 0 - 30 unit/L [facility] Alk Phos 118 (H) 35 - 105 unit/L [facility] Total Bilirubin 0.4 0.2 - 1.3 mg/dL [facility]ORY Estimated GFR 88 >=60 mL/min/1.73 m?? [facility] Comment: This patient? s estimated glomerular filtration rate (eGFR) is between 88 mL/min/1.73 m2 (patients with less muscl e mass) and 102 mL/min/1.73 m2 (patients with more muscle mass) [...] (Source) Location / / Volume Laterality Blood 04/24/2021 5:50 PM 6:44 EST PM EST Resulting Agency Comment Spec In Lab Carl Coronado MD CHEMISTRY ORDERABLES Performing Organization Address City/State/ZIP [place] [address] documented in this encounter Visit Diagnoses Diagnosis SBO (small bowel obstruction) Unspecified intestinal obstruction Incarcerated ventral hernia Ventral hernia, unspecified, with obstru ction documented in this encounter Admitting Diagnoses Diagnosis Incarcerated ventral hernia Ventral hernia, unspecified, with obstru ction documented in this encounter Administered Medications Inactive Administered Medications - up to 3 most recent administrations Medication Order MAR Action Action Date Dose Rate Site acetaminophen (Ofirmev) (1000 Given 04/26/2021 5:23 AM 1,000 mg 400 mL/hr mg/100 mL) infusion 1,000 mg EST 1,000 mg, Intravenous, at 400 mL/hr, EVERY 6 HOURS SCHEDULED, 4 doses, First dose on Kiara 04/25/21 at 1100, Last dose on Thu04/26/21 at 0500, Maximum dose of acetaminophen is 4000 mg from all sources in 24 hours. When ordered for pain, acetaminophen should be given even when other ordered pain medications are indicated. , Routine Given 04/25/2021 11:43 PM EST 1,000 mg 400 mL/hr Given 04/25/2021 5:02 PM EST 1,000 mg 400 mL/hr acetaminophen (Ofirmev) (1000 Given 04/26/2021 1:39 PM EST 1,000 mg 400 mL/hr mg/100 mL) infusion 1,000 mg 1,000 mg, Intravenous, at 400 mL/hr, ONCE, 1 dose, On Thu04/26/21 at 1415, Maximum dose of acetaminophen is 4000 mg from all sources in 24 hours. When ordered for pain, acetaminophen should be given even when other ordered pain medications are indicated. , Routine acetaminophen (Tylenol) tablet 1,000 mg Given 04/28/2021 12:31 PM EST 1,000 mg 1,000 mg, Oral, EVERY 6 HOURS SCHEDULED, First dose on Thu04/26/21 at 1100, Until Discontinued, Maximum dose of acetaminophen is 4000 mg from all sources in 24 hours. When ordered for pain, acetaminophen should be given even when other ordered pain medications are indicated. , Routine Given 04/28/2021 5:11 AM EST 1,000 mg Given 04/27/2021 11:38 PM EST 1,000 mg bisacodyL (Dulcolax) suppository 10 mg Given 04/27/2021 1:27 PM EST 10 mg 10 mg, Rectal, DAILY PRN, Starting on 04/27/21 at 1053, Until 04/28/21 at 1627, Constipation, Routine dextrose 10% infusion 250 mL, at 1,000 mL/hr, Intravenous, IRIS RY 30 MIN PRN, Starting on [place] 04/25/21 at 1519, Until 04/28/21 at 1627, For BG 50-70 mg/dL: Oral treatment preferred: [...] EVERY 30 MIN PRN, S tarting on Kiara 04/25/21 at 1519, Until 04/28/21 at 1627, Low blood sugar, For BG 50-70 mg/dL: [...] IV access, 1 mg Glucagon IM. Rech darenll BG in 30 minutes. May repeat juice/soda, gel, dextrose or gluc agon once per episode. For persistent hypoglycemia, consider longer-acting treatment for the duration of the active insulin., Routine glucose (GLUTOSE) 40% oral geL 15-30 g, Buccal, EVERY 30 MIN PRN, Starting on Kiara 04/16 at 1519, Until 04/28/21 at 1627, Low blood sugar, For BG 50-70 mg/dL: [...] duration of the active insulin. 1 tube contains 15 grams of glucose (net weig ht of tube = 37.5 grams., Routine heparin (porcine) (5,000 units/1 mL) Given 04/28/2021 5:11 AM ES T 5,000 Units subcutaneous injection 5,000 Units 5,000 Units, Subcutaneous, EVERY 8 HOURS SCHEDULED, First dose on [facility] 04/25/21 at 2200, Until Discontinued, Routine Given 04/27/2021 9:18 PM EST 5,000 Units Given 04/26/2021 5:22 AM EST 5,000 Units hydroCHLOROthiazide (Hydrodiuril) tablet 25 mg Given 04/28/2021 9:31 AM EST 25 mg 25 mg, Oral, DAILY, First dose on [place] 04/28/21 at 0915, Until Discontinued, Routine HYDROmorphone (Dilaudid) (0.5 mg/0.5 mL) injection syringe 0.2 mg 0.2 mg, Intravenous, EVERY 4 HOURS PRN, Starting on [facility] 04/25/21 at 1745, Until [place] 04/28/21 at 1627, Pain, mild pain (1-3), May give an additional 0.2 mg in 30 minutes once if pain not relieved., Routine HYDROmorphone (Dilaudid) (0.5 mg/0.5 mL) injection syringe 0.4 mg 0.4 mg, Intravenous, EVERY 4 HOURS PRN, Starting on [facility] 04/25/21 at 1745, Until [place] 04/28/21 at 1627, Pain, moderate pain (4-6), May give a n additional 0.2 mg in 30 minutes once if pain not relieved., Routine HYDROmorphone (Dilaudid) (2 mg/mL) injec tion solution 0.6 mg 0.6 mg, Intravenous, EVERY 4 HOURS PRN, Starting on [facility] 04/25/21 at 1745, Until [place] 04/28/21 at 1627, Pain, severe pain (7-10), May give an additional 0.2 mg in 30 minutes once if pain not relieved., Routine HYDROmorphone (Dilaudid) (2 mg/mL) multi-dose Given 6:21 AM EST 0.4 mg injection solution 0.4 mg 0.4 mg, Intravenous, EVERY 10 MIN PRN, Starting on [facility] 04/25/21 at 0454, Until [facility] 04/25/21 at 1721, Pain, For Moderate to Severe Pain (6-10 out of 10), Hold for respiratory rate less than 10 per minute. Maximum dose 3 mg over one hour including administrations in the OR. If multiple pain medications are ordered, start with HYDROmorphone or morphine and use fentaNYL for breakthrough pain, PACU Recovery, Routine insulin lispro (HumaLOG;Admelog) (100 unit/mL) subcuta neous injection vial 1-4 Units 1-4 Units, Subcutaneous, EVERY 4 HOURS SCHEDULED, Firs t dose on Thu04/25/21 at 1600, Until Discontinued, CORRECTION B OLUS [1-4 Units] Sensitive Sliding Scale (BG in mg/dL): Correction factor 40 (1 unit of insulin is expected to drop the glucose 40 mg/dL) BG 160 - 200 Give 1 un it BG 201 - 240 Give 2 units BG 241 - 280 Give 3 units BG greater than 280, give 4 units and rec heck BG in 2 hours. - If recheck BG is LESS than 280, give no ins ulin and resume schedule - If recheck BG is GREATER than 280, give 4 units and repea t BG in 2 hours (no more than 3 times) & call for new insulin orders. DO NOT hold if NPO, unless specifically directed to do so by written order. Per Blood Glucose M onitoring Policy, re-check a BG of > 240 mg/dL in 2 hours., Routine iohexoL (Omnipaque) (350 mg/mL) solution Given 04/24/2021 10:00 PM EST 120 mLs 0-200 mL 0-200 mL, Intravenous, ONCE PRN, 1 dose, Starting on Thu04/24/21 at 2202, Until Thu04/24/21 at 2200, Per Protocol, Warning Vesicant/Irritant Medication , Radiology Contrast, Routine ipratropium-albuteroL (Duoneb) 0.5 mg-3 mg(2.5 mg base)/3 mL nebulizer solution 3 mL 3 mL, Nebulization, DAILY PRN, Starting on Thu04/25/21 at 0527, Until 04/28/21 at 1627, Wheezing, Routine ipratropium-albuteroL (Duoneb) 0.5 mg-3 mg(2.5 Given 0 04/25/2021 5:52 AM EST 3 mLs mg base)/3 mL nebulizer solution 3 mL 3 mL, Nebulization, EVERY 4 HOURS PRN, Starting on [place] 04/25/21 at 0543, Until [place] 04/25/21 at 1745, Wheezing, Routine ketorolac (Toradol) (30 mg/mL) injection 15 Given 04/27/2021 11:38 PM EST 15 mg mg 15 mg, Intravenous, EVERY 6 HOURS, 12 doses, First dose on [place] 04/25/21 at 0600, Last dose on Thu04/28/21 at 0000, Routine Given 04/27/2021 6:04 PM EST 15 mg Given 04/27/2021 5:55 AM EST 15 mg lactated Ringers 1,000 mL IV bolus New Bag 04/24/2021 6:52 PM EST 2000 mL/hr at 2,000 mL/hr, Intravenous, ONCE, 1 dose, On Thu04/24/21 at 1825 lactated ringers infusion New Bag 04/27/2021 4:07 AM EST 110 mL/hr 110 mL/hr 110 mL/hr, Intravenous, CONTINUOUS, Starting on [place] 04/25/21 at 0047, Until 04/27/21 at 1908 Rate/Dose Verify 04/27/2021 4:00 AM EST 110 mL/hr 110 mL/hr New Bag 04/26/2021 6:51 PM EST 110 mL/hr 110 mL/hr magnesium sulfate 2 g in sterile water New Bag 04/28/2021 6:16 AM EST 2 g 25 mL/hr 50 mL infusion 2 g, Intravenous, ONCE, 1 dose, On Thu04/28/21 at 0630, Administer over 120 Minutes morphine (4 mg/mL) injection 4 mg Given 04/24/2021 4:53 PM EST 4 mg 4 mg, Intravenous, ONCE, 1 dose, On Thu04/24/21 at 1628, STAT ondansetron (pf) (Zofran) (2 mg/mL) injection 4 Given 04/24/2021 4:53 PM EST 4 mg mg 4 mg, Intravenous, ONCE, 1 dose, On Thu04/24/21 at 1555, STAT ondansetron (pf) (Zofran) (2 mg/mL) injection Given 11:57 AM EST 4 mg 4-8 mg 4-8 mg, Intravenous, EVERY 8 HOURS PRN, Starting on Kiara 04/25/21 at 1745, Until 04/28/21 at 1627, Nausea, Start with 4mg and if ineffective in 30 minutes, give an additional 4mg If multiple antiemetics are ordered, give ondansetron first. Given 04/26/2021 10:13 AM EST 4 mg ondansetron (Zofran) tablet 4-8 mg 4-8 mg, Oral, EVERY 8 HOURS PRN, Startin g on Kiara 04/25/21 at 1745, Until 04/28/21 at 1627, Nausea, Vomiting, If multiple antiemetics are ordered, use ondansetron first. PO Preferred. If patient unable to take PO, may give IV if ordered. Start with 4mg and if ineffective in 45 minutes, give an add itional 4mg. If unable to take PO, may give IV., Routine phenoL 1.4% (Chloraseptic) spray 1 spray 1 spray, Oral, EVERY 2 HOURS PRN, Starting on 04/26 at 1249, Until 04/28/21 at 1627, Irritation, For throat soreness, Rout ine senna-docusate (Pericolace) 8.6-50 mg per Given 2021 9:17 PM EST 2 tablets tablet 2 tablet 2 tablet, Oral, 2 TIMES DAILY, First dose on [facility] 04/27/21 at 2100, Until Discontinued, Routine sodium chloride 0.9 % (flush) (BD PosiFlush Given 04/28/2021 9:0 0 AM EST 5 mLs Normal Saline 0.9) flush 5 mL 5 mL, Intravenous, 2 TIMES DAILY, First dose on Kiara 04/25/21 at 2100, Until Discontinued, Recovery (Recovery-Hospital Unit), Routine Given 04/27/2021 9:18 PM EST 5 mLs Given 04/27/2021 8:46 AM EST 5 mLs documented in this encounter Active and Recently Administered Medications Times are shown in EST. Scheduled Medication Order 04/26/2021 04/27/2021 04/28/2021 acetaminophen (Ofirmev) (1000 mg/100 mL) infusion 1,00 0 mg (COMPLETED) 0523 (Given - Provider: Farheen Doll RN) 1,000 mg, Intravenous, at 400 mL/hr, IRIS RY 6 HOURS SCHEDULED, 4 doses, First dose on Kiara 04/25/21 at 1100, Last dose on Thu04/26/21 at 0500, Maximum dose of acetaminophen is 4000 mg from all sources in 2 4 hours. When ordered for pain, acetamin ophen should be given even when other ordered pain medications are indicated. , Routine acetaminophen (Ofirmev) (1000 mg/100 mL) infusion 1,00 0 mg (COMPLETED) 1339 (Given - Provider: Rachel Mendoza RN) 1,000 mg, Intravenous, at 400 mL/hr, ONC E, 1 dose, On Thu04/26/21 at 1415, Maximum dose of acetaminophen is 4000 mg from all sources in 24 hours. When ordered for pain, acetaminophen should be given iris n when other ordered pain medications are indicated. , Routine acetaminophen (Tylenol) tablet 1,000 mg 1100 (Not Give n - Provider: Rachel Mendoza RN - Reason: NPO - Comment: NG to LCS and nausea)1700 (Not Given - Provider: Yaneth Garnica LPN - Reason: Patient/family refused)2333 (Given - Provider: Farheen Doll RN) 0555 (Given - Provider: Farheen Ruby lt, RN)1100 (Not Given - Provider: Gretchen Marshall RN - Reason: Patient/family refused - Comment: pt denies pain)1700 (Not Given - Provider: Bg Harden LPN - Reason: Patient/family refused) 0511 (Given - Provider: Farheen Doll RN)1231 (Given - Provider: Patricia Fuller RN) 1,000 mg, Oral, EVERY 6 HOURS SCHEDULED, First dose on Thu04/26/21 at 1100, Until Discontinued, Maximum dose of acetaminophen is 4000 mg from all sources in 24 hours. When ordered for pain, acetaminophe 2338 (Gi leta - Provider: Farheen Doll RN) n should be given even when other ordere d pain medications are indicated. , Routine heparin (porcine) (5,000 units/1 mL) subcutaneous inje ction 5,000 Units 0522 (Given - Provider: Farheen Doll RN)1400 (Not Given - Provider: Yaneth Garnica LPN - Reason: Patient/family refused)2200 (Not Given - Provider: Farheen Doll RN - Reason: Patient/family refused - Comment: Pt ref 0555 (Not Given - Provider: Farheen Doll RN - Reason: Patient/family refused)1400 (Not Given - Provider: Bg Harden LPN - Reason: Patient/family refused)2118 (Given - Provider: Farheen Doll RN) 0511 (Given - Provider: Farheen Doll RN)1400 (Due) 5,000 Units, Subcutaneous, EVERY 8 HOURS SCHEDULED, First dose on Kiara 04/25/21 at 2200, Until Discontinued, Routine using all meds, paged) hydroCHLOROthiazide (Hydrodiuril) tablet 25 mg 930 (Given - Provider: Lena Walton RN) 25 mg, Oral, DAILY, First dose on Thu at 0915, Until Discontinued, Routine insulin lispro (HumaLOG;Admelog) (100 un it/mL) subcutaneous injection vial 1-4 Units(Linked Group 1) 0000 (Not Given - Provider: Farheen dejesus RN - Reason: Order parameters not met - Comment: BG 138)0400 (Not Given - Provider: Farheen Doll RN - Reason: Order parameters not met - Comment: bg 143) 0000 (Not Given - Provider: Farheen Doll RN - Reason: Order parameters not met - Comment: Bg 82)0400 (Not Given - Provider: Farheen Doll RN - Reason: Order parameters not met - Comment: BG 89) 0000 (Not Given - Provider: Farheen Doll RN - Reason: Order parameters not met - Comment: BG 97)0400 (Not Given - Provider: Clarissa Garrett LPN - Reason: Patient/family refused) 1-4 Units, Subcutaneous, EVERY 4 HOURS S CHEDULED, First dose on Kiara 04/25/21 at 1600, Until Discontinued, CORRECTION BOLUS [1-4 Units] Sensitive Sliding Scale (BG in mg/dL): Correction factor 40 (1 u 0800 (Not Given - Provider: Rachel Mendoza RN - Reason: Order parameters not met)1200 (Not Given - Provider: Rachel Mendoza RN - Reason: Order parameters not met)1600 (Not Given - Provider: Yaneth Garnica LPN - Reason: Patient/family refused) 0800 (Not Given - Provider: Gretchen Marshall RN - Reason: Patient/family refused)1200 (Not Given - Provider: Gretchen Marshall RN - Reason: Contraindicated - Comment: limited PO intake, recent symptomatic hypoglycemia) 0800 (Not Given - Provider: Veronika Sanchez LPN - Reason: Order parameters not met - Comment: BG was 103 at 0745.)1200 (Not Given - Provider: Patricia Fuller RN - Reason: Patient/family refused - Comment: pt refused FS) nit of insulin is expected to drop the g lucose 40 mg/dL) BG 160 - 200 Give 1 unit BG 201 - 240 Give 2 units BG 241 - 280 Give 3 units BG greater than 280, give 4 units and recheck BG in 2 hours. - If re 2000 (Not Given - Provider: Farheen Doll RN - Reason: Patient/family refused - Comment: PT refusing all medications, refused glucose check) 1600 (Not Given - Provider: Gretchen Marshall RN - Reason: Order parameters not met)2000 (Not Given - Provider: Farheen Doll RN - Reason: Order parameters not met - Comment: BG 90) check BG is LESS than 280, give [...] > 240 mg/dL in 2 hours., Routine ketorolac (Toradol) (30 mg/mL) injection 15 mg 0522 (G iven - Provider: Farheen Doll RN)1157 (Given - Provider: Rachel Mendoza RN)1800 (Not Given - Provider: Yaneth Garnica LPN - Reason: Patient/family refused)2333 (Given - Provider: Farheen Doll RN) 0555 (Given - Provider: Farheen Ruby lt, RN)1200 (Not Given - Provider: Gretchen Marshall RN - Reason: Patient/family refused - Comment: pt denies pain)1804 (Given - Provider: Gretchen Marshall RN)2338 (Given - Provider: Farheen Doll RN) 15 mg, Intravenous, EVERY 6 HOURS, 12 do ses, First dose on Kiara 04/25/21 at 0600, Last dose on 04/28/21 at 0000, Routine magnesium sulfate 2 g in sterile water 50 mL infusion (COMPLETED ) 0616 (New Bag - Provider: Farheen Doll RN)0816 (Stopped - Provider: Lena Walton, GENA) 2 g, Intravenous, ONCE, 1 dose, On Sun at 0630, Administer over 120 Minutes senna-docusate (Pericolace) 8.6-50 mg per tablet 2 tablet 211 (Given - Provider: Farheen Doll RN) 0900 (Not Given - Provider: Lena oliver RN - Reason: Patient/family refused) 2 tablet, Oral, 2 TIMES DAILY, First dos e on 04/27/21 at 2100, Until Discontinued, Routine sodium chloride 0.9 % (flush) (BD PosiFlush Normal Harpal ine 0.9) flush 5 mL 1014 (Given - Provider: Rachel Mendoza RN)2100 (Not Given - Provider: Farheen Doll RN - Reason: See comment - Comment: Pt refusing all medications) 0846 (Given - Provider: Gretchen Masrhall RN)2118 (Given - Provider: Farheen Doll RN) 0900 (Given - Provider: Lena Walton RN) 5 mL, Intravenous, 2 TIMES DAILY, First dose on Kiara 04/25/21 at 2100, Until Discontinued, Recovery (Recovery-Hospital Unit), Routine Continuous Medication Order 04/26/2021 04/27/2021 04/28/2021 lactated ringers infusion (CANCELED) 0600 (Rate/Dose V erify - Provider: Abbey Mcgarry RN)1851 (New Bag - Provider: Rachel Mendoza RN) 0400 (Rate/Dose Verify - Provider: Farheen Doll RN)0407 (New Bag - Provider: Farheen Doll RN)1908 (Stopped - Provider: Farheen Doll RN) 110 mL/hr, Intravenous, CONTINUOUS, Star ting on Kiara 04/25/21 at 0047, Until 04/27/21 at 1908 PRN Medication Order 04/26/2021 04/27/2021 04/28/2021 bisacodyL (Dulcolax) suppository 10 mg 1 327 (Given - Provider: Gretchen Marshall RN) 10 mg, Rectal, DAILY PRN, Starting on Sa t 04/27/21 at 1053, Until 04/28/21 at 1627, Constipation, Routine dextrose 10% infusion(Linked Group 2) 250 mL, at 1,000 mL/hr, Intravenous, IRIS RY 30 MIN PRN, Starting on Kiara 04/25/21 at 1519, Until 04/28/21 at 1627, For BG 50-70 mg/dL: Oral treatment preferred: [...] mg/mL) injection solution 1 mg(Linked Elvia up 2) 1 mg, Intramuscular, EVERY 30 MIN PRN, S tarting on Kiara 04/25/21 at 1519, Until 04/28/21 at 1627, Low blood sugar, For BG 50-70 mg/dL: Oral treatment preferred: If able to drink, give 120 mL Juice o r Regular (not diet) soda OR If NPO, giv e 15 gram glucose 40% oral gel massaged [...] gel massaged in buccal mucosa OR if unconsc ious or uncooperative, give 25 gram (250 mL) Dextrose 10% IV over 15 minutes per protocol OR, if no IV access, 1 mg Glucagon IM. Recheck BG in 30 minutes. May r epeat juice/soda, gel, dextrose or gluca cami once per episode. For persistent hypoglycemia, consider longer-acting treatment for the duration of the active insulin., Routine glucose (GLUTOSE) 40% oral geL(Linked Group 2) 15-30 g, Buccal, EVERY 30 MIN PRN, Start ing on Kiara 04/25/21 at 1519, Until 04/28/21 at 1627, Low blood sugar, For BG 50-70 mg/dL: Oral treatment preferred: If able to drink, give 120 mL Juice or Re gular (not diet) soda OR If NPO, give 15 gram glucose 40% oral gel massaged into buccal mucosa OR if unconscious or uncooperative, give 25 gram (250 mL) Dextrose 10% IV over 15 minutes per protocol OR, if no IV access, 1 mg Glucagon IM. Fo r BG less than 50 mg/dL: Oral treatment preferred: If able to drink, give 240 mL Juice or Regular (not diet) soda OR If NPO, give 30 gram glucose 40% oral gel mas saged in buccal mucosa OR if unconscious or uncooperative, give 25 gram (250 mL) Dextrose 10% IV over 15 minutes per protocol OR, if no IV access, 1 mg Glucagon IM. Recheck BG in 30 minutes. May repea t juice/soda, gel, dextrose or glucagon once per episode. For persistent hypoglycemia, consider longer-acting treatment for the duration of the active insulin. 1 tube contains 15 grams of glucose (net weight of tube = 37.5 grams., Routine HYDROmorphone (Dilaudid) (0.5 mg/0.5 mL) injection syringe 0.2 mg(Linked Group 3) 0.2 mg, Intravenous, EVERY 4 HOURS PRN, Starting on Kiara 04/25/21 at 1745, Until 04/28/21 at 1627, Pain, mild pain (1-3), May give an additional 0.2 mg in 30 minutes once if pain not relieved., Routine HYDROmorphone (Dilaudid) (0.5 mg/0.5 mL) injection syringe 0.4 mg(Linked Group 3) 0.4 mg, Intravenous, EVERY 4 HOURS PRN, Starting on Kiara 04/25/21 at 1745, Until 04/28/21 at 1627, Pain, moderate pain (4-6), May give an additional 0.2 mg in 30 minutes once if pain not relieved., Routine HYDROmorphone (Dilaudid) (2 mg/mL) injection solution 0.6 mg(Ghanshyam ked Group 3) 0.6 mg, Intravenous, EVERY 4 HOURS PRN, Starting on Kiara 04/25/21 at 1745, Until 04/28/21 at 1627, Pain, severe pain (7-10), May give an additional 0.2 mg in 30 minutes once if pain not relieved., Routine ibuprofen (Advil) tablet 600 mg 600 mg, Oral, EVERY 6 HOURS PRN, Startin g on 04/28/21 at 0600, Until 04/28/21 at 1627, Pain, Administer orally with milk or food to minimize GI irritation. Maximum dose of 3,200 mg from all sources in 24 hours, Routine ipratropium-albuteroL (Duoneb) 0.5 mg-3 mg(2.5 mg base)/3 mL nebulizer solution 3 mL 3 mL, Nebulization, DAILY PRN, Starting on Kiara 04/25/21 at 0527, Until 04/28/21 at 1627, Wheezing, Routine lidocaine (Xylocaine) 1% (10 mg/mL) injection 3 mg 3 mg (0.3 mL), Subcutaneous, ONCE PRN, 1 dose, Starting on Kiara 04/25/21 at 1745, Until 04/28/21 at 1627, for discomfort with PIV insertion, Recovery (Recovery-Hospital Unit), Routine naloxone (Narcan) (0.4 mg/mL) injection 0.2 mg 0.2 mg, Intravenous, EVERY 1 MIN PRN, St arting on Kiara 04/25/21 at 1745, Until 04/28/21 at 1627, Opioid Reversal, If respiratory rate less than 6 OR the patient is unable to arouse OR SpO2 is declining , Give for respiratory rate of less than or equal to 6 and patient is heavily sedated or unarousable. May repeat every 60 seconds to increase respiratory rate. DO NOT exceed 2 mg total dose., Recovery (Recovery-Hospital Unit), Routine ondansetron (pf) (Zofran) (2 mg/mL) injection 4-8 mg(L inked Group 4) 1013 (Given - Provider: Rachel Mendoza, GENA)1157 (Given - Provider: Rachel Mendoza, GENA) 4-8 mg, Intravenous, EVERY 8 HOURS PRN, Starting on Kiara 04/25/21 at 1745, Until 04/28/21 at 1627, Nausea, Start with 4mg and if ineffective in 30 minutes, give an additional 4mg If multiple antiemetics are ordered, give ondansetron first. ondansetron (Zofran) tablet 4-8 mg(Linked Group 4) 101 3 (See Alternative - Provider: Rachel Mendoza, GENA)1157 (See Alternative - Provider: Rachel Mendoza, RN) 4-8 mg, Oral, EVERY 8 HOURS PRN, Startin g on Kiara 04/25/21 at 1745, Until 04/28/21 at 1627, Nausea, Vomiting, If multiple antiemetics are ordered, use ondansetron first. PO Preferred. If patient un able to take PO, may give IV if ordered. Start with 4mg and if ineffective in 45 minutes, give an additional 4mg. If unable to take PO, may give IV., Routine phenoL 1.4% (Chloraseptic) spray 1 spray 1 spray, Oral, EVERY 2 HOURS PRN, Starti ng on Thu04/26/21 at 1249, Until 04/28/21 at 1627, Irritation, For throat soreness, Routine polyethylene glycoL (Miralax) packet 17 g 17 g, Oral, DAILY PRN, Starting on Kiara at 1745, Until Thu04/28/21 at 1627, Constipation, Routine sodium chloride 0.9 % (flush) (BD PosiFlush Normal Saline 0.9) f lush 5-20 mL 5-20 mL, Intravenous, EVERY 1 MIN PRN, S tarting on Kiara 04/25/21 at 1745, Until Thu04/28/21 at 1627, flush, Flush pertains to all indwelling lines. Flush per protocol found in the job aid using the link p rovided on this medication record., Recovery (Recovery-Hospi blu Unit), Routine Linked Groups Order Group 1: POCT Fingerstick Glucose (CANCELED) Routine, EVERY 4 HOURS, First occurrence on [facility] 04/25/21 at 1525, Until Specified
Consider choosing EVERY 4 HOURS [...] 4 HOURS S CHEDULED, First dose on Kiara 04/25/21 at 1600, Until Discontinued
CORRECTION BOLUS [1-4 Units] Sensitive [...] mg/dL in 2 hours.
Routine Group 2: glucose (GLUTOSE) 40% oral geLJump to med 15-30 g, Buccal, EVERY 30 MIN PRN, Start ing on Kiara 04/25/21 at 1519, Until 04/28/21 at 1627, Low blood sugar
For BG 50-70 mg/dL: Oral treatment preferred: If able to drink, give 1 20 mL Juice or Regular (not diet) soda O R If NPO, give 15 gram glucose 40% oral gel massaged into buccal mucosa OR if unconscious or uncooperative, give 25 gram (250 mL) Dextrose 10% I V over 15 minutes per protocol OR, if no IV access, 1 mg Glucagon IM. For BG less than 50 mg/dL: Oral treatment preferred: If able to drink, give 240 mL Juice or Regular (n ot diet) soda OR If NPO, give 30 gram&nb sp;glucose 40% oral gel massaged in buccal mucosa OR if unconscious or uncooperative, give 25 gram (250 mL) Dextrose 10% IV over 15 minutes per&n bsp;protocol OR, if no IV access, 1 mg G lucagon IM. Recheck BG in 30 minutes. May repeat juice/soda, gel, dextrose or glucagon once per episode. For persistent hypoglycemia, consider longer-acting [place] atment for the duration of the active insulin. 1 tube contains 15 grams of glucose (net weight of tube = 37.5 grams.
Routine Or dextrose 10% infusionJump to med 250 mL, at 1,000 mL/hr, Intravenous, IRIS RY 30 MIN PRN, Starting on Kiara 04/25/21 at 1519, Until 04/28/21 at 1627
For BG 50-70 mg/dL: Oral treatment preferred: If able to drink, give&nbs p;120 mL Juice or Regular (not diet) sod a OR If NPO, give 15 gram glucose 40% oral gel massaged into buccal mucosa OR if unconscious or uncooperative, give 25 gram (250 mL) Dextrose 10 % IV over 15 minutes per protocol O [...] mL) Dextrose 10% IV over 15 minutes per&am p;nbsp;protocol OR, if no IV access, 1 m g Glucagon IM. Recheck BG in 30 minutes. May repeat juice/soda, gel, dextrose or glucagon once per episode. For persiste nt hypoglycemia, consider longer-acting treatment for the duration of the active insulin.
Or glucagon (Glucagen) (1 mg/mL) injection solution 1 mgJump to med 1 mg, Intramuscular, EVERY 30 MIN PRN, S tarting on Kiara 04/25/21 at 1519, Until 04/28/21 at 1627, Low blood sugar
For BG 50-70 mg/dL: Oral treatment preferred: If able to drink, give&nb sp;120 mL Juice or Regular (not diet) so da OR If NPO, give 15 gram glucose 40% oral gel massaged into buccal mucosa OR if unconscious or uncooperative, give 25 gram (250 mL) Dextrose 1 0% IV over 15 minutes per protocol OR, if no IV access, 1 mg Glucagon IM. For BG less than 50 mg/dL: Oral treatment preferred: If able to drink, give 240 mL Juice or Regula r (not diet) soda OR If NPO, give 30 gra m glucose 40% oral gel massaged in buccal mucosa OR if unconscious or uncooperative, give 25 gram (250 mL) Dextrose 10% IV over 15 minutes per&a mp;nbsp;protocol OR, if no IV access, 1 mg Glucagon IM. Recheck BG in 30 minutes. May repeat juice/soda, gel, dextrose or glucagon once per episode. For persist ent hypoglycemia, consider longer-acting treatment for the duration of the active insulin.
Routine Group 3: HYDROmorphone (Dilaudid) (0.5 mg/0.5 mL) injection syringe 0.2 mgJump to med 0.2 mg, Intravenous, EVERY 4 HOURS PRN, Starting on Kiara 04/25/21 at 1745, Until 04/28/21 at 1627, Pain, mild pain (1-3)
May give an additional 0.2 mg in 30 minutes once if pain not relieved.
Routine Or HYDROmorphone (Dilaudid) (0.5 mg/0.5 mL) injection syringe 0.4 mgJump to med 0.4 mg, Intravenous, EVERY 4 HOURS PRN, Starting on Kiara 04/25/21 at 1745, Until 04/28/21 at 1627, Pain, moderate pain (4-6)
May give an additional 0.2 mg in 30 minutes once if pain not relieved.
Routine Or HYDROmorphone (Dilaudid) (2 mg/mL) injection solution 0.6 mgJump to med 0.6 mg, Intravenous, EVERY 4 HOURS PRN, Starting on Kiara 04/25/21 at 1745, Until 04/28/21 at 1627, Pain, severe pain (7-10)
May give an additional 0.2 mg in 30 minutes once if pain not relieved.
Routine Group 4: ondansetron (Zofran) tablet 4-8 mgJump to med 4-8 mg, Oral, EVERY 8 HOURS PRN, Startin g on Kiara 04/25/21 at 1745, Until 04/28/21 at 1627, Nausea, Vomiting
If multiple antiemetics are ordered, use ondansetron first. PO Prefer red. If patient unable to take PO, may g nathan IV if ordered. Start with 4mg and if ineffective in 45 minutes, give an additional 4mg. If unable to take PO, may give IV.
Routine Or ondansetron (pf) (Zofran) (2 mg/mL) injection 4-8 mgJump to med 4-8 mg, Intravenous, EVERY 8 HOURS PRN, Starting on Kiara 04/25/21 at 1745, Until 04/28/21 at 1627, Nausea
Start with 4mg and if ineffective in 30 minutes, give an additional 4mg If multiple antiemetics are ordered, give ondansetron first.
documented in this encounter Care Teams [employer] Relationship Specialty Start Date End Date Ally Ortiz APRN PCP - General Internal Medicine 04/24/21 4 [place] [address] documented as of this encounter
--- OUTSIDE RECORDS SUMMARY | 2021-09-27 14:53 | XMS_ITS | Encounter Summary ---
:1960 [place] [address] Care Team Providers Name Role Phone DianaLexisAlly Mary MUNOZ Primary Care Provider Reason for Visit Auth/Cert Specialty Diagnoses / Procedures Referred By Contact Refer red To Contact Diagnoses Incarcerated ventral hernia Procedures emergency ipi Referral ID Status Reason Start Date Expiration Date Visits Requ ested Visits Authorized [id number] 1 1 Encounter Details Date Type Department Care Team Description 04/25/2021 Anesthesia Event Main Operating Room Adonis Varner MD [facility] [place] [address] [place] [address] [phone] Anesthesia Record Procedure Summary Procedure Name Responsible Anesthesia Start Anesthesia Stop Anesthesiologist Time Time HERNIA REPAIR, VENTRAL Adonis Piedra MD 04/25/2101/04 0525 OR INCISIONAL, RECURRENT, INCARCERATED (WRVU 15.53) (Left Abdomen) Events Date Time Event Comment 04/25/2021 0311 AN Verify 0311 Start 0311 An Start Data 0320 An Induction 0322 An Intubation 0325 Anesthesia Ready 0329 An Data Art Difficulty with NIBPM after induction, moved to forearm with reassuring pressures. In the interim, SPO2 an d ETCO2 reassuring, radial pulse easily pal pable 0335 Procedure Start 0345 0406 Quick Note Bowel externaliz ed 0512 Extubation/LMA Out 0520 an stop data 0525 Recovery or ICU Handoff Patient care was transferred to the destination unit staff after review of the patient's medica l history, current anesthetic/surgi mary grace status and plan, according to the Provider Handoff Checklist. 0525 Stop Name Total fentaNYL 150 mcg Propofol 170 mg Rocuronium 100 mg PHENYLephrine 800 mcg Ondansetron 8 mg Dexamethasone 4 mg Succinylcholine 160 mg piperacillin-tazobactam (Zosyn) 3.375 g vial attach to sodium chloride 3.375 g 0.9% 50 mL Mini-Bag Plus PHENYLephrine INF 1,580 mcg acetaminophen IV 1,000 mg Magnesium Sulfate 2 g Heparin 5000 units SQ 5,000 Units Sugammadex 200 mg Lactated Ringers 1,700 mL Lactated Ringers 1,000 mL Agents Name O2 Air N2O Sevoflurane (et) Blood No blood administrations on file. Lines, Drains, and Airways Type Details Placement Removal Incision 04/25/20; 0602; midline; 04/25/20 0602 by [place], 08/12/21 2200 by lower quadrant; midline; GENA Morgan Jaimie L, LDA from 04/25/21; LDA not RN present upon assessment; 08/12/21; 2200 PIV 04/24/21; 1652; median 04/24/21 1652 by 04/27/21 2205 by cubital vein (antecubital Chel Iqbal RN Thi bault, Rebekah M, fossa), right; RN axho-qvl-surkfl catheter system; 20 gauge; aam; site symptomatic; 04/27/21; 2205 Incision 04/25/21; 0000 (unsure of 04/25/21 0000 by 08/12 2200 by placement time); midline; Good Wallace RN Jalb ert, Jaimie L, upper quadrant; LDA from RN 04/25/21; LDA not present upon assessment; 08/12/21; 2200 NG/OG Tube 04/25/21; 0123; 16 Fr; 04/25/21 0123 by 04/27/21 1900 by 65; lidocaine gel; Jassi Monae Reb ekah M, stomach; gastric RN decompression; Taped; removed prior to start of shift, RN not present upon removal; 04/27/21; 1900 ETT Mask Ventilation: Not 04/25/21 0322 by Grua, 01/04 0512 by Attempted (0); ETT Type: MD Zaina West, Alin Abrams MD Cuffed, Oral; ETT Size: 7.5 mm; Lee Blade: 2; Notes: Asleep, Pre-O2, Stylette; Attempts: 1; Laryngoscopy Grade: 1; ETT Placement Verified By: Capnometry; Secured at Teeth: 21 cm; Inserted by: zaina malagon Urethral Catheter 04/25/21; 0332; Abdominal 04/25/21 0332 by 03/06 1614 by surgery; latex; 14; Good Wallace, Jas Mayers I, inserted at this [facility] facility; 1; 5; 10; none; urethral catheter removed; 04/27/21; 1614 PIV 04/25/21; 0350; 04/25/21 0350 by Zaina, 04/28/21 1100 by metacarpal vein (top of MD Isabelle West Sommer L, RN hand), left; ehdr-udg-btdaqk catheter system; Anatomical Landmarks; 20 gauge; no longer indicated, removed per physician, site symptomatic, catheter/device intact; 04/28/21; 1100 documented in this encounter Social History Tobacco [...] encounter OR Notes Anesthesia Postprocedure Evaluation - Saranya Morgan MD - 04/25/2021 5:27 AM EST Department of Anesthesiology Post-procedure Note Patient: Jahaira Montgomery Procedure Summary Date: 04/25/21 Room / Location: [facility] OR [address] [place] [address] MAIN OR Anesthesia Start: 310 Anesthesia Stop: Procedure: HERNIA REPAIR, VENTRAL OR INCISIONAL, RECURRENT, INCARCERATED (WRVU 15.53) (Left Abdomen) Diagnosis: (incarcerated ventral hernia, recurrent) Surgeons: Loco White MD Responsible Provider: Adonis Piedra MD Anesthesia Type: general ASA Status: 3 - Emergent All Anesthesia Providers: Anesthesiologist: Adonis Piedra MD Spindle Frame Carver: Saranya Morgan MD Vitals Value Taken Time BP 168/79 04/25/21 05 Temp Pulse 74 04/25/21 0526 Resp 10 04/25/21 05 SpO2 99 % 04/25/21525 Pain Level Vitals shown include unvalidated device data. Patient Location: PACU/[facility] Level of Consciousness: Conscious but Sleepy Pain Management: Satisfactory Analgesia PONV: None Cardiovascular Status: At Baseline Respiratory Status: At Baseline Postoperative Fluid Status: Possible Anesthetic Complications: NONE apparent at time of evaluation Final Primary Anesthesia Type: General (The anesthetic type performed was the same as planned.) Comments: Mild wheezing but SPO2>99%. PRN duoneb ordered. Anesthesia Preprocedure Evaluation - Adonis Piedra MD - 04/25/2021 3:05 AM EST Pre-Anesthesia Evaluation for: Jahaira Montgomery a 60 y.o. female. Procedure(s): HERNIA REPAIR, VENTRAL OR INCISIONAL, RECURRENT, INCARCERATED (WRVU 15.53) MATURATION OF OSTOMY (WRVU 15.61) @BOWEL RESECTION, SMALL INTESTINE SINGLE ANASTOMOSIS (WRVU 20.82) Patient Active Problem List Diagnosis Date Noted ??? Incarcerated ventral hernia 04/25/2021 ??? Incarcerated [...] 27.9) performed by Miryam Wiley MD at [facility] MAIN OR ??? PRO COLONOSCOPY, DIAGNOSTIC N/A 08/18/2019 COLONOSCOPY, DIAGNOSTIC performed by Emigdio Lanier MD at [facility] ENDOSCOPY ??? PRO CYSTOSCOPY, INSERT URETERAL STENT Right 09/14/2019 CYSTO, STENT PLACEMENT INTRAOP, TEMPORARY (WRVU 2.82) performed by Werner Fournier MD at [facility] MAIN OR ??? PRO EXPLORATORY OF ABDOMEN N/A 04/25/2020 @EXPLORATORY LAPAROTOMY, WITH/WITHOUT BIOPSY(S) (WRVU 12.54) performed by Jerod Frost MD at [facility] OR ??? PRO MOBILIZE SPLENIC FLEX N/A 09/14/2019 @MOBILIZATION OF SPLENIC FLEXURE (WRVU 2.23) performed by Miryam Wiley MD at [facility] OR ??? PRO OMENTAL FLAP, INTRA-ABDOMINAL 09/14/2019 @OMENTAL FLAP, INTRA-ABDOMINAL (WRVU 6.54) performed by Miryam Wiley MD at [facility] OR ??? PRO REPAIR RECURR INCIS HERNIA, DEONTE N/A 04/25/2020 HERNIA REPAIR, VENTRAL OR INCISIONAL, RECURRENT, INCARCERATED (WRVU 15.53) performed by Jerod Frost MD at [facility] OR ??? PRO SIGMOIDOSCOPY, DIAGNOSTIC N/A 09/14/2019 SIGMOIDOSCOPY, FLEXIBLE W/WO SPECIMEN BY BRUSHING OR WASHING (WRVU 0.84) performed by Miryam Wiley MD at [facility] OR ??? TUBAL LIGATION Social History Tobacco [...] Physical Exam: Preprocedure Vitals Current as of 04/25/21 0305 BP: 159/91 Pulse: 69 Resp: 9 SpO2: 90 Temp: Height: Weight: 107 kg (236 lb) (04/24/21) BMI: IBW: 40.7 kg (89 lb 10.7 oz) Last edited 04/25/21 0200 by KIM Airway Assessment: Mallampati: II TM distance: <3 FB Neck ROM: full Cardiovascular Assessment: Rate: normal Pulmonary Assessment: unlabored breathing Dental Assessment: - normal exam Misc Assessment: IV access: Peripheral line Last Filed Perioperative Cognitive Screening None Anesthesia Plan: ASA 3 emergent general, with a(n) intravenous induction 60 yo f with recurrent incarcerated ventral hernia here for repair. BMI 46. Current smoker. Prediabetic. Borderline hypertensive. No known coronary dz. Active N/V. Appears hemoconcentrated on labs. Plan GETA. Region - Other Informed Consent: Anesthetic plan and risks discussed with patient. Plan discussed with resident. Anesthesia Screening documented in this encounter Plan of Treatment Upcoming Encounters Date Type Specialty Care Team Description 09/30/2021 Office Visit General Surgery Paloma Mota, AIRCRAFT ENGINE TECHNICIAN [facility] ER GENERAL SURGERY [place], [place] [address] (Wo rk) 09/30/2021 Office Visit Infectious Diseases Werner Harrell MD [facility] [place], [place] [address] (Wo rk) documented as of this encounter Visit Diagnoses Not on filedocumented in this encounter Administered Medications Inactive Administered Medications - up to 3 most recent administrations Medication Order MAR Action Action Date Dose Rate Site acetaminophen (Ofirmev) (1000 Given 04/25/2021 4:44 AM EST 1,000 mg mg/100 mL) infusion Intravenous, PRN, Starting on Kiara 04/25/21 at 0444, Until Kiara 04/25/21 at 0528, Anesthesia Intra-op, Routine dexamethasone (Decadron) injection Given 04/25/2021 3:20 AM EST 4 mg Intravenous, PRN, Starting on Kiara 04/25/21 at 0320, Until Kiara 04/25/21 at 0528, Anesthesia Intra-op, Routine fentaNYL (pf) (50 mcg/mL) multi-dose Given 04/25/2021 4:09 AM ES T 50 mcg injection Intravenous, PRN, Starting on Kiara 04/25/21 at 0320, Until Kiara 04/25/21 at 0528, Anesthesia Intra-op, Routine Given 04/25/2021 3:20 AM EST 100 mcg heparin (pf) (porcine) (5,000 unit/mL) Given 04/25/2021 5:01 AM EST 5,000 Units multidose injection Subcutaneous, PRN, Starting on Kiara 04/25/21 at 0501, Until Kiara 04/25/21 at 0528, Anesthesia Intra-op, Routine lactated ringers infusion New Bag 04/25/2021 4:08 AM EST Intravenous, CONTINUOUS PRN, Starting on Kiara 04/25/21 at 0311, Until Kiara 04/25/21 at 0528, Anesthesia Intra-op New Bag 04/25/2021 3:11 AM EST lactated ringers infusion New Bag 04/25/2021 3:51 AM EST Intravenous, CONTINUOUS PRN, Starting on Kiara 04/25/21 at 0351, Until Kiara 04/25/21 at 0528, Anesthesia Intra-op magnesium sulfate (4 mEq/mL) (50 %) inje ction Given 04/25/2021 4:44 AM EST 2 g Intravenous, PRN, Starting on Kiara 04/25/21 at 0444, Until Kiara 04/25/21 at 0528, Anesthesia Intra-op, Routine ondansetron (pf) (Zofran) (2 mg/mL) inje ction Given 04/25/2021 4:45 AM EST 8 mg Intravenous, PRN, Starting on Kiara 04/25/21 at 0445, Until Kiara 04/25/21 at 0528, Anesthesia Intra-op, Routine PHENYLephrine Rate/Dose Change 04/25/2021 4:32 10 mcg/min 7.5 mL/hr (Osbaldo-Synephrine) (80 mcg/mL) AM EST in sodium chloride 0.9% 250 mL infusion Intravenous, CONTINUOUS PRN, Starting on Kiara 04/25/21 at 0333, Until Kiara 04/25/21 at 0528, Anesthesia Intra-op, Routine Restarted 04/25/2021 4:27 AM EST 20 mcg/min 15 mL/hr New Bag 04/25/2021 3:33 AM EST 40 mcg/min 30 mL/hr PHENYLephrine in NS (PF) (OSBALDO-SYNEPHRINE) Given 04/25/2021 3:34 AM EST 160 mcg 0.8 mg/10 mL (80 mcg/mL) multi-dose injection Syrg Intravenous, PRN, Starting on Kiara 04/25/21 at 0320, Until Kiara 04/25/21 at 0528, Anesthesia Intra-op, Routine Given 04/25/2021 3:31 AM EST 160 mcg Given 04/25/2021 3:28 AM EST 160 mcg piperacillin-tazobactam (Zosyn) 3.375 g New Bag 04/25/2021 3:20 AM EST 3.375 g vial attach to sodium chloride 0.9% 50 mL Mini-Bag Plus 3.375 g, Intravenous, DIE CLEANER TO O.R., 1 dose, On Kiara 04/25/21 at 0210, Administer over 4 Hours, Warning Vesicant/Irritant Medication Do not administer or Y-site with lactated ringers., Indication for (Active or Suspected): GI/Intra-abdominal propofoL (Diprivan) 10 mg/mL bolus injection Given 5:08 AM EST 50 mg (Anesthesia) Intravenous, PRN, Starting on Kiara 04/25/21 at 0320, Until Kiara 04/25/21 at 0528, Anesthesia Intra-op Given 04/25/2021 3:20 AM EST 120 mg rocuronium (Zemuron) (10 mg/mL) multi-dose Given 04/25/2021 4:28 AM EST 50 mg injection Intravenous, PRN, Starting on Kiara 04/25/21 at 0332, Until Kiara 2 at 0528, Anesthesia Intra-op, Routine Given 04/25/2021 3:32 AM EST 50 mg succinylcholine (Anectine;Quelicin) (20 Given 04/25/2021 3:20 AM EST 160 mg mg/mL) injection Intravenous, PRN, Starting on Kiara 04/25/21 at 0320, Until Kiara 04/25/21 at 0528, Anesthesia Intra-op, Routine sugammadex (Bridion) 100 mg/mL injection Given 04/25/2021 5:05 AM EST 100 mg Intravenous, PRN, Starting on Kiara 04/25/21 at 0502, Until Kiara 04/25/21 at 0528, Anesthesia Intra-op, Routine Given 04/25/2021 5:02 AM EST 100 mg documented in this encounter Care Teams Manager Of Product Relationship Specialty Start Date End Date Ally Ortiz APRN PCP - General Internal Medicine 04/24/[address] [place] [address] [place] [address] documented as of this encounter
--- OUTSIDE RECORDS SUMMARY | 2021-09-27 14:53 | XMS_ITS | Encounter Summary ---
:1960 Author Organization [facility] [place] [address] Care Team Providers Name Role Phone Ally Ortiz APRN Primary Care Provider Reason for Referral Consultation (Urgent) - Closed Specialty Diagnoses / Procedures Referred By Contact Refer red To Contact General Surgery Diagnoses S/P repair of ventral hernia Chronic abdominal pain Ally Ortiz APRN [facility] Gen Surgery [address] [place], [place] [id number] [place] [phone] Fax: Referral ID Status Reason Start Date Expiration Date Visits V isits Requested Authorized [id number] Closed Consult, Test 07/18/2021 07/18/2022 1 1 & Treat PCP Updated and/or Approved Encounter Details Date Type Department Care Team Description 07/18/2021 Transcribe Orders eDH Incoming Ally Ortiz, S/P re pair of ventral hernia; 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 Chronic abdominal pain [phone] [address] [place] [address] Social History Tobacco Use Types Packs/Day Years [...] Office Visit General Surgery Paloma Mota APRN [facility] ER GENERAL SURGERY [place], [place] [address] (Wo rk) 09/30/2021 Office Visit Infectious Diseases Werner Harrell MD [facility] ER INFECTIOUS DISEA [place], [place] [address] (Wo rk) Scheduled Referrals Name Type Priority Associated Diagnoses Order S chedule Referral to Outpatient Referral Routine S/P repair of Ordered : General Surgery ventral hernia 07/18/2021 Chronic abdominal pain documented as of this encounter Visit Diagnoses Diagnosis S/P repair of ventral hernia Other postprocedural status Chronic abdominal pain Abdominal pain, unspecified site documented in this encounter Care Teams Loans Consultant Relationship Specialty Start Date End Date Ally Ortiz APRN PCP - General Internal Medicine 04/24/21 [facility] [place] [place] [address] documented as of this encounter
--- OUTSIDE RECORDS SUMMARY | 2021-09-27 14:53 | XMS_ITS | Encounter Summary ---
:1960 Author Organization [facility] [place] [address] Care Team Providers Name Role Phone Ally Ortiz KETTLE GIRL Primary Care Provider Encounter Details Date Type Department Care Team Description 07/18/2021 Ancillary [facility] [address] [id number] [phone] (Wo rk) Social History Tobacco Use Types [...] Office Visit General Surgery Paloma Mota APRN [facility] ER GENERAL SURGERY [place], [place] [address] (Wo rk) 09/30/2021 Office Visit Infectious Diseases Werner Harrell MD [facility] ER [address] [place], [place] [address] (Wo rk) documented as of this encounter Procedures Procedure Name Priority Date/Time Associated Diagnosis Comme nts FILM LIBRARY Routine 07/18/2021 3:53 PM Results f or this STORAGE ONLY CT EDT procedure ar e in ABDOMEN AND PELVIS the resul ts section. documented in this encounter Results Film Library- Storage Only CT Abdomen & Pelvis (07/18/2021 3:53 PM EDT) Specimen (Source) Anatomical Location Collection Method / Collectio n Time Received Time / Laterality Volume Narrative RAD - 07/18/2021 3:53 PM EDT This exam is auto-finalizing. It's purpo se is for storage only. Ally Ortiz APRN [employer] FILM LIBRARY ORDERABLES Performing Organization Address City/State/ZIP Code Phon e Number [place], [place] documented in this encounter Visit Diagnoses Not on filedocumented in this encounter Care Teams Transportation Engineer Relationship Specialty Start Date End Date Ally Ortiz APRN PCP - General Internal Medicine 04/24/[address] [place] [address] documented as of this encounter
--- OUTSIDE RECORDS SUMMARY | 2021-09-27 14:53 | XMS_ITS | Encounter Summary ---
:1960 Author Organization [place] [address] Care Team Providers Name Role Phone Ally Ortiz APRN Primary Care Provider Reason for Referral Home Health Care (Routine) - Authorized Specialty Diagnoses / Procedures Referred By Contact Refer red To Contact Diagnoses Recurrent abdominal hernia without obstruction or gangrene, unspecified hernia type Azar Soriano MD [facility] [place] [address] Referral ID Status Reason Start Date Expiration Visits Visits Date Requested Authorized [id number] Authorized Consult, 07/25/2021 01/21/2022 999 999 Test & Treat Reason for Visit Auth/Cert Specialty Diagnoses / Procedures Referred By Contact Refer red To Contact Diagnoses Recurrent abdominal hernia incarcerated hernia Procedures EMERGENCY IPI Referral ID Status Reason Start Date Expiration Date Visits Requ ested Visits Authorized [id number] 1 1 Encounter Details Date Type Department Care Team Description 07/22/2021 - Hospital Encounter 4 Iliana Kumari, Rajiv lyman abdominal 07/25/2021 [facility] hernia without [facility] obstruction or [facility] [address] tamayo, [place], [place] [address] type [id number] [phone] Social History Tobacco Use Types Packs/Day Years [...] Sign Reading Time Taken Comments Blood Pressure 171/84 07/25/2021 11:56 AM EDT Pulse 64 07/24/2021 7:50 PM EDT Temperature 36.7 ??C (98.1 ??F) 07/25/2021 11:56 AM EDT Respiratory Rate 16 07/25/2021 11:56 AM EDT Oxygen Saturation 94% 07/25/2021 11:56 AM EDT Inhaled Oxygen Concentration - - Weight 102.4 kg (225 lb 12 oz) 07/24/2021 3:08 AM EDT Height 152 cm (4' 11.84) 07/22/2021 4:56 PM EDT Body Mass Index 44.32 07/22/2021 4:56 PM EDT documented in this encounter Discharge Summaries Azar Soriano MD - 07/25/2021 11:16 AM EDT Images from the original note were not included. Acute Care Surgery Discharge Summary Patient Name: Jahaira Montgomery Patient Age: 61 y.o. : 1960 Attending Physician: Iliana Helton MD Date of Admission: 07/22/2021 Date of Discharge: ID: 61 y.o.??female??with a hx of current tobacco use, obesity, T2DM (HbA1c 7.1%), chronic knee pain, diverticulitis s/p Lucy's procedure with reversal in March 2019 who was [facility] from 04/25-04/28/2021 with an incarcerated ventral hernia. She had a similar presentation in April 2020 at which time a hernia was reduced and hernia was repaired primarily. She presented to clinic on 07/22 with two weeks of abdominal pain to the left of midline and with recent CT A/P demonstrated two areas of hernia recurrence.?? Other In-hospital Issues: - Acute Pain - Hypertension Secondary Diagnosis: Past Medical History: Diagnosis Date ??? Chronic pain Chronic bilat knee (ACL) pain ??? Claudication left leg no acl right leg torn acl ??? Diverticulitis ??? Syncope fainted 10 years ago from heat Allergies: No Known Allergies Operations/Procedures: 2021 Procedure(s): HERNIA REPAIR, VENTRAL OR INCISIONAL, RECURRENT, INCARCERATED (WRVU 15.53) IMPLANT MESH FOR INCISIONAL OR VENTRAL HERNIA REPAIR (WRVU 4.88) HPI: Jahaira Montgomery is a 60 y.o. female with history of current tobacco use, obesity, T2DM (A1c 7.1), chronic knee pain, diverticulitis s/p Lucy's (03/19/19 with reversal on 09/14/19) who was recently hospitalized at [facility] from 04/25-04/28/21 with concern for incarcerated ventral hernia. This was unable selina reduced at the bedside and she proceeded to the OR on 04/25 for hernia repair. She was found to have a superior hernia defect containing non-obstructed transverse colon and an inferior defect with incarcerated loop of small bowel. This was reduced and all bowel appeared viable. Hernia was repaired primarily without mesh. ?? She reports initially doing well after the surgery but about 2 weeks ago started to have pain left of midline. She went to [facility] and a CT A/P was obtained demonstrated 2 small areas of hernia recurrence. She presented to clinic today and reports continuing to have severe pain that is worsened with movement. She has not taken anything more than tylenol/ibuprofen. She has tried hot and cold packs which have not helped. She otherwise denies fevers, chills, nausea, emesis. She has been having regular bowel movements and passing flatus; last bowel movement was earlier this morning. ?? She is a current smoker but has been using nicotine patches. She is here with her daughter in the clinic [place]. Hospital Course: Jahaira Montgomery was admitted from clinic on 07/22 and taken to the OR on 2021 for ventral hernia repair. She underwent open repair with placement of an overlay mesh. Her hospital course was significant for a vasovagal episode which self resolved. Her diet was advanced on POD 1. Her left GEE drain wasremoved on POD 2. Jahaira Montgomery's pain was adequately controlled, s/he was maintaining adequate oxygen saturation on room air, and was hemodynamically stable. S/he was tolerating a diet without abdominal complaints and voiding adequately. WBC and Hgb were stable. S/he was ambulating with a walker. Jahaira Montgomery was evaluated by the Surgery Team and deemed medically stable for discharge today. Plan: Neuro: tylenol q6h, ibuprofen q6h, Card: HDS, Monitor vital signs. Continue home HCTZ. Pulm: ambulation, ISC, cough, deep breathing. Nicotine patch. FENGI: low residue diet, senna-docusate. Renal/: voiding spontaneously Heme: SQH while inpatient ID: no abx PPx: ambulation, ISC, cough, deep breathing Drain: GEE to remain until output is <30cc a day for 2 consecutive days Incidental Radiographic Findings: N/A Pending Lab Data at Discharge: None Pertinent Lab Data: Recent Labs 07/23/21 0429 07/22/21 1652 WBC 12.0* 14.4* HGB 13.8 15.1 HCT 43.0 46.5* PLATELET 349 431* PT 11.6 -- INR 1.0 -- PTT 34 -- Recent Labs 07/24/21 0521 07/23/21 0429 07/22/21 1652 NA 134* 136 137 K 4.3 3.0* 3.2* CL 99 98 96* CO2 22 25 26 BUN 17 24* 20* CREATININE 0.65* 0.69* 0.76 GLUCOSE 175 166 158 CALCIUM 8.9 9.0 9.8 MAGNESIUM 0.93 0.81 0.84 PHOS 3.2 3.8 3.4 Microbiology Data: None Pertinent Imaging: None Discharge Physical Examination: Vital Signs: Last value Range last 24hrs Temperature Temp: 36.6 ??C (97.9 ??F) Temp: [36.4 ??C (97.52 ??F)-36.8 ??C (98.24 ??F)] Heart Rate Heart Rate: 64 Heart Rate: [64] Blood Pressure BP: 138/74 BP: (103-141)/(63-76) Respiratory Rate Resp: 18 Resp: [16-18] SpO2 SpO2: 94 % SpO2: [93 %-99 %] Physical Exam: Gen: NAD, pleasant, sitting comfortably in bed HEENT: normocephalic, atraumatic, EOMI, sclerae anicteric Neck: supple, trachea midline Card: RRR, no M/R/G appreciated Pulm: CTAB, no wheeze/ronchi/rales appreciated, non-labored breathing on RA, Abdomen: abdominal binder in place; midline provena vac holding suction without surrounding drainage;??GEE drain x2 with <5cc SS output on R, 15cc SS output on L; soft, minimally tender, nondistended Ext: warm, dry, no edema Neuro: A&Ox3, CN II-XII grossly intact, nonfocal, conversant ?? Current Medications: The following medications have been [...] into the lungs as needed. Refills: 0 atorvastatin 20 mg Tab Commonly known as: Lipitor Take 20 mg by mouth every evening. 20 mg Refills: 0 Eszopiclone 1 mg Tab Commonly known as: LUNESTA Take 1 mg by mouth nightly. 1 mg Refills: 0 hydroCHLOROthiazide 25 mg Tab Commonly known as: Hydrodiuril Take 25 mg by mouth daily. 25 mg Refills: 0 ibuprofen 600 mg Tab Commonly [...] mg Tab Commonly known as: Senokot Take 1 tablet by mouth daily. 1 tablet Refills: 0 senna-docusate 8.6-50 mg Tab Commonly known as: Pericolace Take 2 tablets by mouth 2 times daily as needed for Constipation. 2 tablet Quantity: 60 tablet Refills: 11 Disposition: Home Scheduled Appointments: The following appointments have been scheduled on your behalf: Future Appointments Date Time Provider Department Center 08/07/2021 1:00 PM Paloma Mota APRN [facility] Outpatient Services/Studies: Referral to Home Health Referral Priority: Routine Referral Type: Home Health Care Referral Reason: Consult, Test & Treat Number of Visits Requested: 999 Special Instructions Given to Patient at Discharge:. An After Visit Summary was printed and given to the patient. Patient Instructions Discharge Instructions You were were admitted and treated for the following diagnosis: Andrea Kimberlee CALL YOUR PHYSICIAN IF: 1. You have a fever greater than 101F 2. You have diarrhea or vomiting for >24 hours, or stop having bowel movements and passing flatus 3. You have worsening pain, not controlled with your pain medication. 4. You develop redness, swelling, or new drainage from your wounds Follow up: Future Appointments Date Time Provider Department Center 08/07/2021 1:00 PM Paloma Mota APRN [facility] Narcotics: You may be given a prescription [...] but try again the following day. - Do not lift anything heavier than 10 ls - You may tire easily, so frequent [...] 4 times a day. Wound Care: - Please track the output from your GEE drain on the provided sheet - You can shower per usual routine - Do not submerge wounds under water (avoid spas, pools and bathtubs) until fully healed. - Do not use creams, oils, or ointments on the wound. - You should wear the abdominal binder for 2 weeks. Following this you may wear it for comfort - See follow-up appointments for removal of sutures/shelley. Comfort: - Some soreness can be expected. - Take your pain medication as needed and prescribed. - Taper use of pain medication as pain lessens. Follow up appointments: 1. You will have follow-up appointments at [facility] as indicated in the ???Future Appointments and [...] on the next business day. Please call [phone] if you do not hear from us by that time, as your timely follow-up is very important to us. Your care was managed by the Trauma and Acute Care Surgery Team at [facility]. If you have any questions or concerns, please feel free to contact us. Provider Contact Information: General Surgery: [facility] (after business hours): CC: Ventral Hernia Primary Care Physician: Ally Ortiz APRN General Instructions GEE DRAIN CARE INSTRUCTIONS General Information: Drains help to keep fluid from collecting by removing the extra blood and fluid from under the skin.A drain is temporary. It stays in place until the drainage has slowed down or stopped. Your doctor or nurse will decide when each drain should be removed: This is usually after each drain has 30cc or less in 24 hours for 2 days in a row. When this happens, you should call the General Surgery Clinic toschedule an appointment with the nurses to have it/them removed. This is usually not painful and only takes a few seconds. How do I care for the drains at home? Pin your drains to your clothing by using a safety pin through the plastic loop on the top of the bulb. If the drain is not attached to your clothing, it may pull out from under your skin. Also, a drain usually feels more comfortable when it???s attached. To care for the drain at home, you will have to empty the drain, ???strip?? the drain tubing, and change the dressing if applicable. See the following pages for instructions on how to do this. What problems may I have with my drain? The bulb is not compressed- The bulb may not be squeezed tightly enough, the plug may not be closed securely, or the tube has slipped out a bit and is leaking. Follow the instructions on how to empty the drain. If the bulb remains expanded, then notify your doctor or nurse during business hours. ??? No drainage or sudden decrease in amount of drainage- This is usually due to clots in the drain.Follow the instructions on how to strip the drain tubing. ??? The tube accidentally falls out- If this happens, place a dry gauze dressing over the drain siteand notify your doctor or nurse during business hours. ??? Increased redness, swelling, or heat around the tube insertion site- This may be a sign of infection. Take your temperature: if it is higher than 101F or 38.8C, call your doctor or nurse immediately. Otherwise, notify your doctor or nurse during business hours and keep the dressing clean and dry. Post-Surgical Drain Care: After surgery, you will have one or two drains, called a Brian-Ramos (GEE) drain, placed near the incision. This device collects fluid, under suction, from your surgical area. The drain promotes healing and recovery, and reduces the chance of infection. The drain will be in place until the drainage slows enough for your body to reabsorb fluid on its own. While you are hospitalized the nursing staff will care for the drain and teach you to continue to do so at home. How to Empty Your GEE Drain Note: Wash your hands thoroughly before emptying your drain(s). 1. Have the plastic measuring cup from the hospital ready to collect and measure the drainage. Please measure the output at the same two times every 24 hours and record the amount. 2. Unpin the drain from your clothing. 3. 4. Open the top of the drain. Turn the drain upside down and squeeze the contents of the bulb into the measuring cup. Be sure to empty the bulb as completely as possible. Flush the contents in the toilet. 5. Use the drain output log chart to record the amount of drainage twice a day or any time the bulb is full. Record the total for 24 hours for each drain you have. 6. If you have more than one drain, remember to record the drainage from each drain separately. 7. To prevent infection, do not let the stopper or top of the bottle touch the measuring cup or any other surface. 8. 9. Use one hand to squeeze all of the air from the drain. With the drain still squeezed, use your other hand to replace the top. This creates the suction necessary to remove the fluids from your body. 10. Pin the drain back on your clothing to avoid pulling it out accidently. 11. Wash your hands again. Remember to wash your hands before and after the procedure to reduce the risk of infection. Stripping the Tube Often the tube may become blocked with products of healing or clot. If you do not have drainage, then: ??? Hold the tube near where it is inserted in to the skin with your one hand. ??? Use the other hand to hold a pencil and gently squeeze the tubing with the pencil while moving it down toward the drain away from your skin. This forces the more sold material into the bulb for better drainage. ??? Repeat as necessary to start the draining again. Removal of the Tube ??? The tube may be removed once a single tube output is less than 30cc (1 oz.) for 24 hours. ??? Please call the office if the output becomes thicker or has a bad odor. Brian-Ramos Drainage Record NAME: Date of Surgery: Date: Time: If more than one drain, which one: Drainage Amount (per drain) Total Amount (per drain; in 24 hours) Your care was managed by the Trauma and Acute Care Surgery Team at [facility]. If you have any questions or concerns, please feel free to contact us. Provider Contact Information: General Surgery Clinic: Nurses line for questions: [facility] (after business hours): CC: Ventral Hernia TAMMY Marx APRN Signed: Azar Soriano MD Department of Surgery 07/25/2021 Acute Care Surgery Pager [phone] documented in this encounter Discharge Instructions Discharge InstructionsAzar Soriano MD - 07/25/2021 11:36 AM EDT Images from the original note were not included. GEE DRAIN CARE INSTRUCTIONS General Information: Drains help to keep fluid from collecting by removing the extra blood and fluid from under the skin.A drain is temporary. It stays in place until the drainage has slowed down or stopped. Your doctor or nurse will decide when each drain should be removed: This is usually after each drain has 30cc or less in 24 hours for 2 days in a row. When this happens, you should call the General Surgery Clinic toschedule an appointment with the nurses to have it/them removed. This is usually not painful and only takes a few seconds. How do I care for the drains at home? Pin your drains to your clothing by using a safety pin through the plastic loop on the top of the bulb. If the drain is not attached to your clothing, it may pull out from under your skin. Also, a drain usually feels more comfortable when it???s attached. To care for the drain at home, you will have to empty the drain, ???strip?? the drain tubing, and change the dressing if applicable. See the following pages for instructions on how to do this. What problems may I have with my drain? The bulb is not compressed- The bulb may not be squeezed tightly enough, the plug may not be closed securely, or the tube has slipped out a bit and is leaking. Follow the instructions on how to empty the drain. If the bulb remains expanded, then notify your doctor or nurse during business hours. No drainage or sudden decrease in amount of drainage- This is usually due to clots in the drain. Follow the instructions on how to strip the drain tubing. The tube accidentally falls out- If this happens, place a dry gauze dressing over the drain site andnotify your doctor or nurse during business hours. Increased redness, swelling, or heat around the tube insertion site- This may be a sign of infection. Take your temperature: if it is higher than 101F or 38.8C, call your doctor or nurse immediately. Otherwise, notify your doctor or nurse during business hours and keep the dressing clean and dry. Post-Surgical Drain Care: After surgery, you will have one or two drains, called a Brian-Ramos (GEE) drain, placed near the incision. This device collects fluid, under suction, from your surgical area. The drain promotes healing and recovery, and reduces the chance of infection. The drain will be in place until the drainage slows enough for your body to reabsorb fluid on its own. While you are hospitalized the nursing staff will care for the drain and teach you to continue to do so at home. How to Empty Your GEE Drain Note: Wash your hands thoroughly before emptying your drain(s). Have the plastic measuring cup from the hospital ready to collect and measure the drainage. Please measure the output at the same two times every 24 hours and record the amount. Unpin the drain from your clothing. Open the top of the drain. Turn the drain upside down and squeeze the contents of the bulb into the measuring cup. Be sure to empty the bulb as completely as possible. Flush the contents in the toilet. Use the drain output log chart to record the amount of drainage twice a day or any time the bulb is full. Record the total for 24 hours for each drain you have. If you have more than one drain, remember to record the drainage from each drain separately. To prevent infection, do not let the stopper or top of the bottle touch the measuring cup or any other surface. Use one hand to squeeze all of the air from the drain. With the drain still squeezed, use your otherhand to replace the top. This creates the suction necessary to remove the fluids from your body. Pin the drain back on your clothing to avoid pulling it out accidently. Wash your hands again. Remember to wash your hands before and after the procedure to reduce the riskof infection. Stripping the Tube Often the tube may become blocked with products of healing or clot. If you do not have drainage, then: Hold the tube near where it is inserted in to the skin with your one hand. Use the other hand to hold a pencil and gently squeeze the tubing with the pencil while moving it down toward the drain away from your skin. This forces the more sold material into the bulb for better drainage. Repeat as necessary to start the draining again. Removal of the Tube The tube may be removed once a single tube output is less than 30cc (1 oz.) for 24 hours. Please call the office if the output becomes thicker or has a bad odor. Brian-Ramos Drainage Record NAME: Date of Surgery: Date: Time: If more than one drain, which one: Drainage Amount (per drain) Total Amount (per drain; in 24 hours) Patient InstructionsAzar Soriano MD - 07/25/2021 11:32 AM EDT Discharge Instructions You were were admitted and treated for the following diagnosis: Ventral Henria CALL YOUR PHYSICIAN IF: You have a fever greater than 101F You have diarrhea or vomiting for >24 hours, or stop having bowel movements and passing flatus You have worsening pain, not controlled with your pain medication. You develop redness, swelling, or new drainage from your wounds Follow up: Future Appointments Date Time Provider Department Center 08/07/2021 1:00 Paloma Potts, DIRECTOR HARDWARE [facility] SURG [facility] Narcotics: You may be given a prescription [...] but try again the following day. - Do not lift anything heavier than 10 ls - You may tire easily, so frequent [...] 4 times a day. Wound Care: - Please track the output from your GEE drain on the provided sheet - You can shower per usual routine - Do not submerge wounds under water (avoid spas, pools and bathtubs) until fully healed. - Do not use creams, oils, or ointments on the wound. - You should wear the abdominal binder for 2 weeks. Following this you may wear it for comfort - See follow-up appointments for removal of sutures/shelley. Comfort: - Some soreness can be expected. - Take your pain medication as needed and prescribed. - Taper use of pain medication as pain lessens. Follow up appointments: 1. You will have follow-up appointments at [facility] as indicated in the ???Future Appointments and [...] on the next business day. Please call [phone] if you do not hear from us by that time, as your timely follow-up is very important to us. Your care was managed by the Trauma and Acute Care Surgery Team at [facility]. If you have any questions or concerns, please feel free to contact us. Provider Contact Information: General Surgery: [facility] (after business hours): CC: Ventral Hernia Primary Care Physician: Ally Ortiz APRN documented [...] documented as of this encounter Progress Notes Azar Soriano MD - 07/25/2021 8:58 AM EDT ID/MECHANISM OF INJURY: Jahaira Montgomery is a 61 y.o. female S/p ex lap with ventral hernia repair with overlay mesh OR CASE INFORMATION: 2021 Procedure(s): HERNIA REPAIR, VENTRAL OR INCISIONAL, RECURRENT, INCARCERATED (WRVU 15.53) IMPLANT MESH FOR INCISIONAL OR VENTRAL HERNIA REPAIR (WRVU 4.88) FOLLOW-UP NEEDED: Does pt need to f-u with surgeon or WIRE DRAWING SETTER (please indicate reason if attending provider): WIRE DRAWING SETTER How soon should TACS f/u be? 2 weeks (with staple removal) Follow-up with other services? No Advise [...] No (SCHEDULE?) INCIDENTAL FINDINGS Incidental Findings (yes/no): N/A OPIOID CONSENT/NARCOTIC AGREEMENTS Current Month Narcotic Consent? No D/c to: Home If Rehab - Rehab Name: PCP Name: TAMMY Marx MD 07/25/2021 Arvin Lacy, PT - 07/24/2021 1:45 PM EDT Physical Therapy Evaluation Patient profile: Jahaira Montgomery is a 61 y.o. female admitted on 07/22/[address] Iliana Helton MD. Per MD notes, pt is 61 y.o. female who is 1 Day Post-Op s/p ex lap with ventral hernia repair. Patient with the following active problems: Past [...] 27.9) performed by Miryam Wiley MD at [facility] MAIN OR ??? PRO COLONOSCOPY, DIAGNOSTIC N/A 08/18/2019 COLONOSCOPY, DIAGNOSTIC performed by Emigdio Lanier MD at [facility] ENDOSCOPY ??? PRO CYSTOSCOPY, INSERT URETERAL STENT Right 09/14/2019 CYSTO, STENT PLACEMENT INTRAOP, TEMPORARY (WRVU 2.82) performed by Werner Fournier MD at [facility] MAIN OR ??? PRO EXPLORATORY OF ABDOMEN N/A 04/25/2020 @EXPLORATORY LAPAROTOMY, WITH/WITHOUT BIOPSY(S) (WRVU 12.54) performed by Jerod Frost MD at [facility] MAIN OR ??? PRO IMPLANT MESH HERNIA REPAIR/DEBRIDEMENT CLOSURE N/A 2021 IMPLANT MESH FOR INCISIONAL OR VENTRAL HERNIA REPAIR (WRVU 4.88) performed by Iliana Helton MD at [facility] OR ??? PRO MOBILIZE SPLENIC FLEX N/A 09/14/2019 @MOBILIZATION OF SPLENIC FLEXURE (WRVU 2.23) performed by Miryam Wiley MD at [facility] OR ??? PRO OMENTAL FLAP, INTRA-ABDOMINAL 09/14/2019 @OMENTAL FLAP, INTRA-ABDOMINAL (WRVU 6.54) performed by Miryam Wiley MD at [facility] OR ??? PRO REPAIR RECURR INCIS HERNIA, DEONTE N/A 04/25/2020 HERNIA REPAIR, VENTRAL OR INCISIONAL, RECURRENT, INCARCERATED (WRVU 15.53) performed by Jerod Frost MD at [facility] OR ??? PRO REPAIR RECURR INCIS HERNIA, DEONTE Left 04/25/2021 HERNIA REPAIR, VENTRAL OR INCISIONAL, RECURRENT, INCARCERATED (WRVU 15.53) performed by Loco White MD at [facility] OR ??? PRO REPAIR RECURR INCIS HERNIA, DEONTE N/A 2021 HERNIA REPAIR, VENTRAL OR INCISIONAL, RECURRENT, INCARCERATED (WRVU 15.53) performed by Iliana Helton MD at [facility] OR ??? PRO SIGMOIDOSCOPY, DIAGNOSTIC N/A 09/14/2019 SIGMOIDOSCOPY, FLEXIBLE W/WO SPECIMEN BY BRUSHING OR WASHING (WRVU 0.84) performed by Miryam Wiley MD at [facility] OR ??? TUBAL LIGATION Social History: Pt lives with multiple, various generation, family members in a large house. There is always someonearound to help as needed with bed transfer, donning binder, lower body dressing.. She has a walker because her R knee is bad. She does not climb stairs. She is indep at home other than help sometimes for socks or shoes. Precautions/Special Considerations: abdominal binder, obesity, 2 drains, Prevena vac dressing Mobility and Positioning Recommendations: ?? Pt. to utilize walker and assist for equipment for ambulation and transfers with nursing. ?? Please encourage up to chair for meal times as able. ?? Pt encouraged to ambulate frequently with staff, getting into the bathroom for toileting and walking out in the king >/= 3 times daily as able. Subjective: ???feeling better this afternoon?? Would go home if they told me I could but I dont think theyre ready to send me yet Objective: Pt seen for evaluation today. Pain: Tolerable at abdomen Vital Signs: stable Mental Status: alert, oriented to person, place, and time Musculoskeletal: ROM: Gross limitations d/t body habitus Strength: WFL Bed Mobility: Supine to Sit: indep using rail, could have help at home, will sleep on couch that is easier to get up from Sit to Supine: indep Transfers: Sit to Stand: indep Stand to Sit: indep Help only with equipment Gait: Distance: 150 feet Device used: front wheel walker Level of assist: Supervision, help with lines/equipment. Otherwise could be indep Gait mechanics: minimally relies on walker at times gestures with one hand while continuing to walk Balance: Sitting Static: good Sitting Dynamic: good Standing Static: good Standing Dynamic / Gait: good Education: patient has been educated on Precautions/protocol, Role of therapy and Discharge planningand verbalizes understanding. Patient status, treatment, and mobility recommendations discussed withnursing. Assessment: Jahaira Montgomery was seen today for physical therapy evaluation. The patient tolerated the PT eval well. Presents with pain, obesity, midline/abdominal incision, baseline mobility deficits and many attachements, all impacting his/her ambulation status and activity tolerance. Other than needinghelp with attachments, pt is indep with walker. No further PT needs. She will have abundant help at home if needed. Discharge Recommendations: Based on the current findings, Anticipated Discharge Disposition (PT): home with supervision when medically ready for hospital discharge. Consult Recommendations: No [...] behaviors, and/or participation restrictions. Addressing 1-2 elements Addressing 3 + elements x Addressing 4 + elements ?? Clinical presentation: See assessment above. Stable/Uncomplicated Evolving/Fluctuating Symptoms Unstable/Unpredictable x ?? Clinical decision making of moderate complexity based on pt's functional performance as outlined in this evaluation. Time IN / OUT: 9358-7807 Total Minutes, Physical Therapy: 25 Billing Code: Swetha Arvin Lacy, PT Pager: [phone] Physical Therapy Inpatient Rehabilitation Department Elida Kapoor I, OT - 07/24/2021 1:19 PM EDT Occupational Therapy Evaluation Patient profile: Per MD note: Jahaira Montgomery is a 61 y.o. female who is 1 Day Post-Op s/p ex lap with ventral hernia repair. Past Medical History: Diagnosis Date ??? Chronic [...] 27.9) performed by Miryam Wiley MD at [facility] OR ??? PRO COLONOSCOPY, DIAGNOSTIC N/A 08/18/2019 COLONOSCOPY, DIAGNOSTIC performed by Emigdio Lanier MD at [facility] ENDOSCOPY ??? PRO CYSTOSCOPY, INSERT URETERAL STENT Right 09/14/2019 CYSTO, STENT PLACEMENT INTRAOP, TEMPORARY (WRVU 2.82) performed by Werner Fournier MD at [facility] MAIN OR ??? PRO EXPLORATORY OF ABDOMEN N/A 04/25/2020 @EXPLORATORY LAPAROTOMY, WITH/WITHOUT BIOPSY(S) (WRVU 12.54) performed by Jerod Frost MD at [facility] MAIN OR ??? PRO IMPLANT MESH HERNIA REPAIR/DEBRIDEMENT CLOSURE N/A 2021 IMPLANT MESH FOR INCISIONAL OR VENTRAL HERNIA REPAIR (WRVU 4.88) performed by Iliana Helton MD at [facility] MAIN OR ??? PRO MOBILIZE SPLENIC FLEX N/A 09/14/2019 @MOBILIZATION OF SPLENIC FLEXURE (WRVU 2.23) performed by Miryam Wiley MD at [facility] MAIN OR ??? PRO OMENTAL FLAP, INTRA-ABDOMINAL 09/14/2019 @OMENTAL FLAP, INTRA-ABDOMINAL (WRVU 6.54) performed by Miryam Wiley MD at [facility] MAIN OR ??? PRO REPAIR RECURR INCIS HERNIA, DEONTE N/A 04/25/2020 HERNIA REPAIR, VENTRAL OR INCISIONAL, RECURRENT, INCARCERATED (WRVU 15.53) performed by Jerod Frost MD at [facility] OR ??? PRO REPAIR RECURR INCIS HERNIA, DEONTE Left 04/25/2021 HERNIA REPAIR, VENTRAL OR INCISIONAL, RECURRENT, INCARCERATED (WRVU 15.53) performed by Loco White MD at [facility] OR ??? PRO REPAIR RECURR INCIS HERNIA, DEONTE N/A 2021 HERNIA REPAIR, VENTRAL OR INCISIONAL, RECURRENT, INCARCERATED (WRVU 15.53) performed by Iliana Helton MD at [facility] MAIN OR ??? PRO SIGMOIDOSCOPY, DIAGNOSTIC N/A 09/14/2019 SIGMOIDOSCOPY, FLEXIBLE W/WO SPECIMEN BY BRUSHING OR WASHING (WRVU 0.84) performed by Miryam Wiley MD at [facility] OR ??? TUBAL LIGATION Social History: Patient lives w family in a multilevel home Home Setup: ramp to enter, stays on 1st floor, walk in shower w shower chair DME: shower chair, walker Baseline ADL/Mobility: has been limited w mobility due to R knee, does not drive, Independent w ADLs/IADLs; pt has assistance w socks and shoes Precautions/Special Considerations: abdominal binder, obesity, GEE drains x2, abdominal wound vac Subjective: someone helps me w my socks Objective: Seen today for OT evaluation. Cognitive Status/Behavior: ?? Behavior / Mood: alert and cooperative ?? Alert and oriented to: person, place, time and situation ?? Follows commands: multi step and 100% of the time ?? Attention: WFL ?? Safety awareness: WFL Vision & Perception: ?? WNL/WFL ?? corrective lenses multimedia project manager Communication: WFL Range of motion, strength, coordination: Bilateral UEs are within functional limitations LE limitations: R knee pain; see PT note for further detail Sensation: no report of numbness or tingling Activities of Daily Living: Self-feeding: independent Grooming: independent Dressing: dependent to don socks due to urgency to void; pt able to doff socks w eating disorder specialist and don socks w sock aide after initial demonstration seated in recliner chair Bathing: anticipate mod I; pt has shower chair at home Toileting: Transfer: mod I FWW; cues to utilize grab bar before sitting on toilet Hygiene: pt able to perform own pericare Functional Mobility: Supine to sit: mod I; HOB elevated Sit to stand: mod I Ambulation: 150ft SBA FWW; assist for line management Stand to sit: mod I Sit to supine: pt left in recliner with all needs met and call glover within reach Balance: Sitting balance: good Standing balance: good w FWW Vitals: VSS on RA Pain: discomfort in sitting; no numerical value given Skin: abdominal incision c/d/i Education: patient have been educated on Role of occupational therapy/rehabilitation, Transfers, Assistive device/technique, Adaptive equipment training, ADL, Positioning, Safety, Precautions/Protocol,Functional Mobility, Activity pacing/Energy conservation, Home Management, Balance, Recommendations and Discharge planning and verbalizes understanding. Patient status, treatment, and mobility recommendations discussed with nursing. Assessment: Pt has been seen for occupational therapy evaluation. Jahaira Montgomery presents 1 Day Post-Op s/p ex lap with ventral hernia repair with the following performance skill deficits and client factors: increased pain, decreased flexibility/ROM, body habitus and abdominal incision. These performance deficits have led to activity limitations and participation restrictions in the following areas of occupation: dressing, bathing, transfers/mobility, home management, leisure and community mobility. However, despite the deficits listed above pt demonstrates the ability to manage own needs. Pt educated on LH AE to assist in LB dressing tasks; pt able to demonstrate good technique after initial demonst ration. Pt reports she has family members who can assist her as needed. Pt has all appropriate AE and DME for home. Anticipate that pt will return home with assistance once medically ready. Do not anticipate further OT needs while hospitalized. Equipment Recommendations: Equipment Needs Upon Discharge (OT): None Anticipated Discharge Disposition (OT): home with supervision Other Recommendations: ?? Transfer to recliner chair and/or BR as appropriate with SBA FWW, ambulate as tolerated ?? Encourage participation in ADL's by providing set up A on tray table and physical assist only as needed Other Recommendations: No other consults recommended at this time Plan: OT: Therapy Frequency (OT): Monitor Total Minutes, Occupational Therapy: 36 (1 moderate complexity eval [id number]) OT Evaluation Code Rationale: ?? Diagnosis & Pertinent Co-Morbidities affecting Plan of Care: see PMHx ?? Occupational Profile & Client History: Brief Expanded Extensive x ?? Assessment of Occupational Performance: 1-3 performance deficits 3-5 performance deficits x 5 + performance deficits ?? Clinical Decision Making: Low Moderate High x Clinical decision making of moderate complexity using standardized patient assessment instrument andmeasurable assessment of functional outcome. Pager: [phone] Elida Kapoor OT 07/24/2021 Occupational Therapy Rehabilitation Department Willie Chandler MD - 07/24/2021 1:03 PM EDT [facility] Department of Acute CareSurgery Inpatient Progress Note Patient Name: Jahaira Montgomery Patient : 1960 Patient Patient Location: [address] [place] [address] Attending Surgeon: ILIANA HELTON ID: Jahaira Montgomery is a 61 y.o. female who is 1 Day Post-Op s/p ex lap with ventral hernia repair. 24 Hour Events / Subjective: - went to OR yesterday, had ex lap with ventral hernia repair with overlay mesh. - POC overnight normal - vasovagal episode this morning with nausea, resolved. - pain tolerated with ARCHITECTURAL DRAFTSPERSON overnight, transitioned to oral oxycodone PRN today Vitals: Temp: [36 ??C (96.8 ??F)-36.8 ??C (98.2 ??F)] Heart Rate: [61-76] Resp: [8-18] BP: (103-157)/(56-94) SpO2: [93 %-99 %] Heart Rate from SpO2: [53 bpm-83 bpm] Wt & BMI By Encounter Date Flowsheet Row Admission (Current) from 07/22/2021 in [facility] Most recent reading at 07/24/2021 3:08 AM Office Visit from 07/22/2021 in General Surgery at [facility] Most recent reading at 07/22/2021 11:48 AM Weight 102.4 kg (225 lb 12 oz) 1 07/24/2021 0308 102.4 kg (225 lb 11.2 oz) 1 07/22/2021 1148 BMI 44.31 1 07/22/2021 1656 44.31 1 07/22/2021 1148 Physical Exam: Gen: NAD, pleasant, sitting comfortably in bed HEENT: normocephalic, atraumatic, EOMI, sclerae anicteric Neck: supple, trachea midline Card: RRR, no M/R/G appreciated Pulm: CTAB, no wheeze/ronchi/rales appreciated, non-labored breathing on RA, Abdomen: abdominal binder in place; midline provena vac holding suction without surrounding drainage; GEE drain x2 with <5cc SS output on R, 15cc SS output on L; soft, minimally tender, nondistended : Pat in place with clear yellow urine Ext: warm, dry, no edema Neuro: A&Ox3, CN II-XII grossly intact, nonfocal, conversant I/O: I/O last 3 completed shifts: In: 3 [I.V.:2152] Out: 960 [Urine:810; Other:100; Blood:50] Labs: Recent Results (from the past 72 hour(s)) Basic Metabolic Panel (non-fasting) Result Value Ref Range Glucose Lvl 158 65 - 199 mg/dL BUN 20 (H) 8 - 18 mg/dL Creatinine 0.76 0.70 - 1.20 mg/dL Sodium 137 135 - 145 mmol/L Potassium 3.2 (L) 3.5 - 5.0 mmol/L Chloride 96 (L) 98 - 107 mmol/L CO2 26 22 - 31 mmol/L Anion Gap 15 5 - 15 mmol/L Calcium 9.8 8.5 - 10.5 mg/dL Estimated GFR 86 >=60 mL/min/1.73 m?? Magnesium Result Value Ref Range Magnesium 0.84 0.69 - 1.07 mmol/L Phosphorus Result Value Ref Range Phosphorus 3.4 2.5 - 4.5 mg/dL Hemogram Result Value Ref Range WBC 14.4 (H) 4.0 - 9.5 x10(3)/mcL RBC 5.08 4.00 - 5.21 x10(6)/mcL Hemoglobin 15.1 11.7 - 15.5 g/dL Hematocrit 46.5 (H) 35.7 - 45.8 % MCV 91.5 82.6 - 94.4 fL MCH 29.7 27.1 - 32.0 pg MCHC 32.5 31.7 - 35.0 g/dL Platelets 431 (H) 145 - 357 x10(3)/mcL RDWSD 43.0 37.0 - 46.0 fL RDWCV 12.7 11.5 - 14.1 % MPV 9.4 7.6 - 12.9 fL nRBC % Auto 0.0 % nRBC Abs Auto 0.000 0.000 - 0.000 x10(3)/mcL Differential, Automated Result Value Ref Range Neutrophils % 55.4 % Neutr Abs (ANC) 8.01 (H) 1.70 - 6.10 x10(3)/mcL Lymphocytes % 33.9 % Lymphocytes Abs 4.9 (H) 0.9 - 3.2 x10(3)/mcL Monocytes % 5.5 % Monocyte Abs 0.8 0.3 - 0.9 x10(3)/mcL Eosinophils % 3.7 % Eosinophils Abs 0.5 (H) 0.0 - 0.4 x10(3)/mcL Basophils % 0.9 % Basophils Abs 0.1 0.0 - 0.1 x10(3)/mcL Immature Gran % 0.60 % Shantell Gran Abs 0.08 (H) 0.00 - 0.04 x10(3)/mcL Scan, Peripheral Blood Result Value Ref Range Plat Estimate Increased RBC Morphology Normal COVID-19 PCR Specimen: Nasopharyngeal Swab Symptoms->Surveillance Result Value Ref Range SARS-CoV-2 RNA PCR Not Detected Not Detected SARS-CoV-2 Source WIRE DRAWING SETTER Swab Prothrombin Time Result Value Ref Range PT 11.6 9.4 - 12.5 sec INR 1.0 APTT Result Value Ref Range PTT 34 25 - 37 sec Comprehensive metabolic panel (non-fasting) Result Value Ref Range Glucose Lvl 166 65 - 199 mg/dL BUN 24 (H) 8 - 18 mg/dL Creatinine 0.69 (L) 0.70 - 1.20 mg/dL Sodium 136 135 - 145 mmol/L Potassium 3.0 (CRIT) 3.5 - 5.0 mmol/L Chloride 98 98 - 107 mmol/L CO2 25 22 - 31 mmol/L Anion Gap 13 5 - 15 mmol/L Calcium 9.0 8.5 - 10.5 mg/dL Total Protein 6.6 6.1 - 8.0 g/dL Albumin 3.4 3.2 - 5.2 g/dL AST 15 0 - 30 unit/L ALT 11 0 - 30 unit/L Alk Phos 99 35 - 105 unit/L Total Bilirubin <0.2 (L) 0.2 - 1.3 mg/dL Estimated GFR 95 >=60 mL/min/1.73 m?? Magnesium Result Value Ref Range Magnesium 0.81 0.69 - 1.07 mmol/L Phosphorus Result Value Ref Range Phosphorus 3.8 2.5 - 4.5 mg/dL Hemogram Result Value Ref Range WBC 12.0 (H) 4.0 - 9.5 x10(3)/mcL RBC 4.61 4.00 - 5.21 x10(6)/mcL Hemoglobin 13.8 11.7 - 15.5 g/dL Hematocrit 43.0 35.7 - 45.8 % MCV 93.3 82.6 - 94.4 fL MCH 29.9 27.1 - 32.0 pg MCHC 32.1 31.7 - 35.0 g/dL Platelets 349 145 - 357 x10(3)/mcL RDWSD 43.9 37.0 - 46.0 fL RDWCV 13.0 11.5 - 14.1 % MPV 9.4 7.6 - 12.9 fL nRBC % Auto 0.0 % nRBC Abs Auto 0.000 0.000 - 0.000 x10(3)/mcL Differential, Automated Result Value Ref Range Neutrophils % 56.0 % Neutr Abs (ANC) 6.73 (H) 1.70 - 6.10 x10(3)/mcL Lymphocytes % 32.8 % Lymphocytes Abs 4.0 (H) 0.9 - 3.2 x10(3)/mcL Monocytes % 6.0 % Monocyte Abs 0.7 0.3 - 0.9 x10(3)/mcL Eosinophils % 4.0 % Eosinophils Abs 0.5 (H) 0.0 - 0.4 x10(3)/mcL Basophils % 0.8 % Basophils Abs 0.1 0.0 - 0.1 x10(3)/mcL Immature Gran % 0.40 % Shantell Gran Abs 0.05 (H) 0.00 - 0.04 x10(3)/mcL ABO/Rh Typing Result Value Ref Range ABORh Type O Pos Antibody screen Result Value Ref Range Ab Screen Interp Negative Expires at 2359 on: 07/26/2021 ABORH Recheck Status Result Value Ref Range ABORH Type Recheck Completed Type and Screen Validity Result Value Ref Range T&S only valid at [facility] Hosp Abscess/Wound Aspirate Culture Specimen: Abdomen; Deep Wound Midline Abdominal wound - culture Result Value Ref Range Abscess/Wound Aspirate Culture No growth to date. Gram Stain Few Neutrophils seen No microorganisms seen. Anaerobic Culture Specimen: Abdomen; Deep Wound Midline Abdominal wound - culture Result Value Ref Range Anaerobic Culture No anaerobic organisms isolated to date POCT Glucose Result Value Ref Range POC Glucose 181 65 - 199 mg/dL Basic Metabolic Panel (non-fasting) Result Value Ref Range Glucose Lvl 175 65 - 199 mg/dL BUN 17 8 - 18 mg/dL Creatinine 0.65 (L) 0.70 - 1.20 mg/dL Sodium 134 (L) 135 - 145 mmol/L Potassium 4.3 3.5 - 5.0 mmol/L Chloride 99 98 - 107 mmol/L CO2 22 22 - 31 mmol/L Anion Gap 13 5 - 15 mmol/L Calcium 8.9 8.5 - 10.5 mg/dL Estimated GFR 97 >=60 mL/min/1.73 m?? Magnesium Result Value Ref Range Magnesium 0.93 0.69 - 1.07 mmol/L Phosphorus Result Value Ref Range Phosphorus 3.2 2.5 - 4.5 mg/dL POCT Glucose Result Value Ref Range POC Glucose 188 65 - 199 mg/dL Micro: Abdominal wound culture - NGTD Assessment: Jahaira Montgomery is a 61 y.o. female who is 1 Day Post-Op s/p ex lap with ventral hernia repair with overlay mesh. Recovering well post-operatively. Pain is well controlled. Had a witnessed vasovagal episode this morning with brief confusion, vision change, flushed skin, and nausea. Resolved with IV zofran and rest within a few minutes. Since then tolerating a low residue diet. Discontinued IV fluids today and removing pat catheter. Patient progressing well. Will work with PT/OT today. Not far off from discharge criteria - may go in next 1-2 days. Plan: Neuro: tylenol q6h, toradol q6h, lidocaine patches, PRN oxycodone. Card: HDS, Monitor vital signs. Continue home HCTZ. Pulm: ambulation, ISC, cough, deep breathing. Nicotine patch. FENGI: low residue diet, senna-docusate. Renal/: remove pat, monitor urine output. Daily lytes/mag/phos. Heme: SQH ID: no abx PPx: ambulation, ISC, cough, deep breathing Dispo: likely home in next 24-48 hours Willie Chandler MD 07/24/2021 Acute Care Surgery Service Pager [phone] Caroline Navarro MD - 2021 8:00 PM EDT Acute Care Surgery Post-Operative Progress Note Jahaira Montgomery 2021 Surgery: HERNIA REPAIR, VENTRAL OR INCISIONAL, RECURRENT, INCARCERATED (WRVU 15.53) IMPLANT MESH FOR INCISIONAL OR VENTRAL HERNIA REPAIR (WRVU 4.88) Attending: Dr. Helton Date of surgery: 2021 Findings: Multiple ventral hernia defects, no incarcerated or threatened bowel, removed visible previous PDS sutures, partial scar excision, made subcutaneous flaps and closed fascia with running 0 PDSand reinforced closure with onlay ovitex (PDS) ?? Subjective/Events: Pt was seen and examined. Pain well controlled. Reports some nausea but no emesis; denies chest pain, shortness of breath. Objcetive: Temp: [36 ??C (96.8 ??F)-36.8 ??C (98.2 ??F)] Heart Rate: [62-76] Resp: [8-18] BP: (117-168)/(67-95) Intake/Output Summary (Last 24 hours) at 2021 1940 Last data filed at 2021 1735 Gross per 24 hour Intake 1310 ml Output 440 ml Net 870 ml Lab Results Component Value Date NA 136 2021 K 3.0 (CRIT) 2021 CL 98 2021 CO2 25 2021 BUN 24 (H) 2021 CREATININE 0.69 (L) 2021 GLUCOSE 166 2021 CALCIUM 9.0 2021 Lab Results Component Value Date WBC 12.0 (H) 2021 HGB 13.8 2021 HCT 43.0 2021 MCV 93.3 2021 PLATELET 349 2021 Lab Results Component Value Date INR 1.0 2021 Exam: General: appears in no acute distress, A/O x 3 HEENT: NC/AT Chest: CTA b/l, unlabored breathing on 3L NC Cardiac: RRR Abdomen: abdominal binder in place; midline prevena vac holding suction without surrounding drainage; GEE drain x2 with <5cc SS output on R, 15cc SS output on L; soft, minimally tender, nondistended : Pat in place with 75cc clear yellow urine Extremity: SCDs in place, no pitting edema A/P: Jahaira Montgomery is a 61 y.o. female patient s/p ventral hernia repair, recovering well postoperatively 1. Pain control: ARCHITECTURAL DRAFTSPERSON 2. Continue mIVF 3. Diet: CLD 4. DVT prophylaxis- SCDs, SQH 5. Other: abdominal binder Caroline Navarro MD Acute Care Surgery Pager [phone] Mavis Poe RN - 2021 6:25 PM EDT 1745: VSS. Abd binder in place over Prevena drain. Bilat GEE drains intact. Resting quietly, appears comfortable. 1830: ARCHITECTURAL DRAFTSPERSON set up, attempted education with patient, however she falls asleep during education. Plan:f/u when more awake. 1845: Episode of nausea without emesis. See flowsheeet Gerardo Treviño MD - 2021 9:07 AM EDT H&P 24hr interval update/Pre-operative note Please see Dr. Samayoa's note from clinic on 07/22/2021 for further information. ID: Jahaira Montgomery is a 61 y.o. female with a hx of current tobacco use, obesity, T2DM (HbA1c 7.1%), chronic knee pain, diverticulitis s/p Lucy's procedure with reversal in March 2019 who was recently hospitalized at [facility] from 04/25- 04/28/2021 with an incarcerated ventral hernia. She had a similar presentation in April 2020 at which time a hernia was reduced and hernia was repaired primarily. She presented to clinic yesterday with two weeks of abdominal pain to the left of midline and with recent CT A/P demonstrated two areas of hernia recurrence. S: Jahaira Montgomery endorses no recent change in health. Denies any fever, chills, cough, congestion, change in bowel habits. Prior to arrival today, Jahaira Montgomery was in a normal state of health. O: Physical Exam: Patient Vitals for the past 24 hrs: Temp Heart Rate From SP02 Pulse Resp BP SpO2 O2 Device 07/22/21 1648 36.6 ??C (97.9 ??F) 76 bpm no documentation 16 148/78 96 % RA 07/22/21 1656 36.6 ??C (97.9 ??F) 76 bpm 77 16 148/78 no documentation no documentation 07/22/212015 36.8 ??C (98.2 ??F) 69 bpm no documentation 16 139/81 90 % no documentation 07/22/21 2327 36.3 ??C (97.3 ??F) 65 bpm no documentation 18 131/67 91 % RA 07/23/21 0334 36.7 ??C (98.1 ??F) 57 bpm no documentation no documentation 117/70 91 % RA 07/23/21 0745 36.8 ??C (98.2 ??F) 61 bpm no documentation 16 123/76 93 % RA Gen: NAD, AAOx3 HEENT: NC/AT, PERRL CVS: RRR Pulm: Symmetric chest excursions bilaterally, unlabored breathing on RA Abd: soft, obese, midline incision well-healed, tenderness to palpation in lower midline abdomen Ext: warm and well perfused, no edema bilaterally A/P: Jahaira Montgomery is a 61 y.o. female with history of current tobacco use, obesity, and T2DM and prior incarcerated ventral hernia repair in April 2020 and 2021 with mesh. She presented to the General Surgery clinic yesterday with evidence of hernia recurrence on CT scan and worsening subacute abdominal pain. Consent signed and scanned in media. Will proceed with planned operation. Gerardo Treviño MD 2021 General Surgery Pager [phone] Mavis Wayne RN - 07/22/2021 8:05 PM EDT Pt arrived @ 1655, from vascular clinic. VSS, A+Ox4. Pt admitted for ventral hernia repair. Pt reporting 10/10 RLQ abd pain with movement, but no pain when she is lying in bed. Tylenol and lidocaine patches applied, she can have PO oxy if needed. Pt declined nicotine patches and stool softeners (per pt report, she had 3 BMs earlier today and is passing gas). Covid swab sent to lab. Pt ate dinner (carb control). NPO at midnight for OR tomorrow. Pt admitted to [facility] w/ call [place] in reach. documented in this encounter H&P Notes Sajan Samayoa MD - 07/22/2021 3:09 PM EDT Images from the original note were not included. [facility] Department of General Surgery Admission History and Physical History of Present Illness: Jahaira Montgomery is a 60 y.o. female with history of current tobacco use, obesity, T2DM (A1c 7.1), chronic knee pain, diverticulitis s/p Lucy's (03/19/19 with reversal on 09/14/19) who was recently hospitalized at [facility] from 04/25-04/28/21 with concern for incarcerated ventral hernia. This was unable to be reduced at the bedside and she proceeded to the OR on 04/25 for hernia repair. She was found to have a superior hernia defect containing non-obstructed transverse colon and an inferior defect with incarcerated loop of small bowel. This was reduced and all bowel appeared viable. Hernia was repaired primarily without mesh. She reports initially doing well after the surgery but about 2 weeks ago started to have pain left of midline. She went to [facility] and a CT A/P was obtained demonstrated 2 small areas of hernia recurrence. She presented to clinic today and reports continuing to have severe pain that is worsened with movement. She has not taken anything more than tylenol/ibuprofen. She has tried hot and cold packs which have not helped. She otherwise denies fevers, chills, nausea, emesis. She has been having regular bowel movements and passing flatus; last bowel movement was earlier this morning. She is a current smoker but has been using nicotine patches. She is here with her daughter in the clinic [place]. Past Medical History: Past Medical History: Diagnosis [...] 27.9) performed by Miryam Wiley MD at [facility] MAIN OR ??? PRO COLONOSCOPY, DIAGNOSTIC N/A 08/18/2019 COLONOSCOPY, DIAGNOSTIC performed by Emigdio Lanier MD at [facility] ENDOSCOPY ??? PRO CYSTOSCOPY, INSERT URETERAL STENT Right 09/14/2019 CYSTO, STENT PLACEMENT INTRAOP, TEMPORARY (WRVU 2.82) performed by Werner Fournier MD at [facility] MAIN OR ??? PRO EXPLORATORY OF ABDOMEN N/A 04/25/2020 @EXPLORATORY LAPAROTOMY, WITH/WITHOUT BIOPSY(S) (WRVU 12.54) performed by Jerod Frost MD at [facility] MAIN OR ??? PRO MOBILIZE SPLENIC FLEX N/A 09/14/2019 @MOBILIZATION OF SPLENIC FLEXURE (WRVU 2.23) performed by Miryam Wiley MD at [facility] OR ??? PRO OMENTAL FLAP, INTRA-ABDOMINAL 09/14/2019 @OMENTAL FLAP, INTRA-ABDOMINAL (WRVU 6.54) performed by Miryam Wiley MD at [facility] OR ??? PRO REPAIR RECURR INCIS HERNIA, DEONTE N/A 04/25/2020 HERNIA REPAIR, VENTRAL OR INCISIONAL, RECURRENT, INCARCERATED (WRVU 15.53) performed by Jerod Frost MD at [facility] OR ??? PRO REPAIR RECURR INCIS HERNIA, DEONTE Left 04/25/2021 HERNIA REPAIR, VENTRAL OR INCISIONAL, RECURRENT, INCARCERATED (WRVU 15.53) performed by Loco White MD at [facility] OR ??? PRO SIGMOIDOSCOPY, DIAGNOSTIC N/A 09/14/2019 SIGMOIDOSCOPY, FLEXIBLE W/WO SPECIMEN BY BRUSHING OR WASHING (WRVU 0.84) performed by Miryam Wiley MD at [facility] OR ??? TUBAL LIGATION Medications No [...] tablet 0 Allergies No Known Allergies Family History: Family History Problem Relation Age [...] Stability: Not on file Review of Systems: As stated above, otherwise negative Physical Exam: Temp: [36.5 ??C (97.7 ??F)] Heart Rate: [77] Resp: [18] BP: (160)/(77) SpO2: [100 %] Heart Rate from SpO2: -- General: alert, no acute distress, pleasant and conversant Head: Atraumatic, non cyanotic Cardiac: Regular rate and rhythm Pulmonary: no increased work of breathing on room air Abdominal: soft, obese, midline incision well approximated, tenderness to palpation at lower midlineand to left of midline Neuro: grossly intact, follows commands, AAO x3. Extremities: reticular mottling of bilateral lower extremities (baseline per patient) Labs: Recent Labs 02/13/22304/27/2123104/26/21 0158 WBC 12.3* 14.3* 12.2* HGB 13.9 13.3 13.4 HCT 42.9 41.8 41.3 PLATELET 241 214 195 Recent Labs 04/28/2122304/27/2123104/26/21 0158 NA 140 141 140 K 3.6 3.4* 3.8 CL 100 100 102 CO2 28 30 30 BUN 14 15 21* CREATININE 0.60* 0.61* 0.64* Recent Labs 04/24/21 1750 AST 14 ALT 18 ALKPHOS 118* BILITOT 0.4 No results for input(s): CALCIUM, PHOS in the last 168 hours. Invalid input(s): MAGNESIUM1 No results for input(s): PT, INR, PTT in the last 168 hours. No results for input(s): CK, TROPONINT, PROBNP in the last 168 hours. No results for input(s): CRP, SEDRATE in the last 7068 hours. Imaging: CT Abdomen/Pelvis 07/18/21 Media Information Document Information Radiology and Imaging: External Radiology CT Scan Report ABD PELVIS 07/18/2021 00:00 Attached To: Scan Doc: Ct Scan [[id number]] scans only on 07/18/21 with Unknown Source Information Unknown Impression: Jahaira Montgomery is a 60 y.o. female with history of current tobacco use, obesity, T2DM (A1c7.1), chronic knee pain, diverticulitis s/p Lucy's (03/19/19 with reversal on 09/14/19) who was recently hospitalized at [facility] from 04/25-04/28/21 with concern for incarcerated ventral hernia s/p primary fascial repair on 04/25/21. She presents today in clinic with 2 weeks of worsening pain and evidence of hernia recurrence. Overall she is hemodynamically stable and non-toxic appearing and has no signs of obstruction. However, given her persistent and severe pain will plan for operative repair either Thursday or Thursday ending OR availability. In the interim will admit to hospital for pain control. Plan: - Admit to ACS, Dr Helton attending - Carb control diet for today, NPO at midnight pending OR timing - Multi modal pain control with tylenol, lidocaine patches, oxycodone prn - Admission CBC, BMP/Mg/Phos - Serial abdominal exams - No indication for antibiotics at this time - Continue to encourage smoking cessation, nicotine patches - Likely OR Thursday or Thursday for hernia repair Discussed with Dr. Helton. Sajan Samayoa MD 07/22/2021 General Surgery Consult Pager [phone] documented in this encounter Miscellaneous Notes Plan of Care - Tiana Gamez RN - 07/25/2021 4:08 PM EDTSummary: plan of care @1400 Discharge paperwork reviewew with patient. PT reports that she thought her wound vac was coming off prior to discharge- MD paged and states it is okay for RN to remove prior to discharge. This write attempted to remove wound vac. PT did not tolerate well. Dressing is stuck to pts skin. MD notified and at beside to remove. PT did not tolerate well. Area to left of the incision is firm and tender to palpate. MD to assess- okay to continue with discharge. Pt educated by MD to monitor site and notify team if there are any changes. Pt verbalized understanding. Wound covered with abd pad and secured with tape. GEE drain teaching done with pt- demonstrates proper use/understanding. PRN oxycodone given prior to discharge due to pain. Discharge paperwork reviewed with patient and personal belongings transported with pt to main entrance. Care Management Discharge - Mira Goldstein RN - 07/25/2021 9:15 AM EDT CARE MANAGEMENT FINAL DISCHARGE NOTE Chart reviewed, care reviewed with primary team and at interdisciplinary rounds. Patient is medically ready for discharge to home . Needs for Transition of Care: None Plan for discharge is: Home w/ Services Outpatient Agency/Support Group Needs: None Home Health Services: Registered Nurse Agency Referrals & Follow-up Care: Referral to [facility] care placed and orders pended for correction and evaluation for need of FISCAL ACCOUNTING CLERK Transportation: family or friend will provide Functional status prior to admission: Independent Home Environment: Others in the home: sibling(s). Current Living Arrangements: home/apartment/condo. Accessibility Concerns: . 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: Independent DME used at home: none DME Needed at Discharge: None Patient is insured through: Primary Insurance: [place] Pay[place] / Plan[place] / Product Type: *No Product type* / Secondary Insurance: N/A Prescription Coverage: Yes This plan was formulated with input from patient and team. All are in agreement with plan. Mira Goldstein [facility] [phone] Care Management - Mira Goldstein RN - 07/25/2021 9:05 AM EDT OFFICE OF CARE MANAGEMENT PROGRESS NOTE LOS: Hospital Day 3 days Chart reviewed, care reviewed with primary team and at interdisciplinary rounds. Patient continues to meet inpatient level of care related to: Abd Hernia Functional status prior to admission: Independent Home Environment: Others in the home: sibling(s). Current Living Arrangements: home/apartment/condo. Accessibility Concerns: . 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: Independent DME used at home: none DME Needed at Discharge: None Patient is insured through: Primary Insurance: [place] / Plan[place] / Product Type: *No Product type* / Secondary Insurance: N/A Last Physical Therapy Recommendation: home with supervision with None Last Occupational Therapy Recommendation: home with supervision with None Plan for discharge is: Home w/ Services Outpatient Agency/Support Group Needs: None Home Health Services: Registered Nurse Agency Referrals: I have met with the patient to: ?? discuss discharge planning needs. ?? provide the [facility], Office of Care Management letter from the Maintenance Chief pertaining to rehab referrals. ?? provide a letter describing our affiliations within the [facility] and educate about their right to choose where referrals are sent. ?? provide a list of Home Health Agencies / Durable Medical Equipment vendors which serve their preferred geographic area. ?? provided patient with [facility] Star Quality Rating handout. They have requested referrals to: [facility] [address] [place] [phone] Note routed to a High Heel Builder who will communicate referrals to facilities and provide any required information. Transportation: family or friend will provide Barriers to discharge: Discharge planning Plan going forward: Patient to discharge today with GEE drain and home care referral placed for drainmanagement and teaching. Care Management will continue to follow and assist with discharge planning and coordination of care as indicated. Anticipated Date of Discharge: 07/25/2021 Mira Goldstein [facility] [phone] Plan of Care - Kalee Simeon RN - 07/25/2021 6:12 AM EDT OUTCOME EVALUATION NOTE: OUTCOME SUMMARY: A&Ox4. Afebrile. VSS on RA. Pt denies SOB, CP, N/V, pain. 1 L PIV removed d/t pain w/ flushing, other L PIV patent. Pt tolerating PO intake. Midline abd prevena intact. Abd binder on. Abd GEE drainsintact. R GEE output> L GEE. Both GEE drains w/ sanguinous drainage. UOP low but adequate. Low PVRs<100mL. PO fluids encouraged. Passing flatus, BM x1 overnight. PLAN MOVING FORWARD: Encourage PO fluids Monitor I&Os Encourage OOB, ambulation Discharge planning home INDIVIDUALIZED FALL PREVENTION INTERVENTIONS: Patient-specific fall risk factors per assessment: [current deficits]: Lines/tubes/drains Hospital environment Assistance [level of assistance required for transfers and ambulation]: SBA, FWW Supervision [direct monitoring required during toileting and ADLs]: Arms reach Surveillance [continuous indirect monitoring]: Purposeful rounding Call glover within reach Room near nurses' station Patient-specific fall prevention interventions for sensory deficits provided, if applicable: Yes CPG GOAL OUTCOME EVALUATION: Ongoing Plan of Care - Tiana Gamez RN - 07/24/2021 11:11 AM EDTSummary: plan of care OUTCOME EVALUATION NOTE: OUTCOME SUMMARY: Pt sleeping during most of shift. Awakens spontaneously or to voice if needed. Pt alert and orientedx 4. Vitals stable. Pain denied. Pt reports she is feeling better than she was this AM. Diet advanced to low fiber diet- she ate most of her breakfast w/o nausea or pain. ABD binder in place. Bowel sound hypoactive. Abd is rounded but non distended. GEE drains to LLQ and RLQ draining sanguinous fluids. Privena woundvac to midline incision at 125 cont suction. Pat DC'd at 0930- Pt assisted up to BR after removal. Scant output in hat. Pt became very dizzy with ambulate. VS taken ad are WNL. Pt assisted back to bed and felt better with rest. paged to sari. Pt still requires o2 while sleeping- desats to mid 80's on room air. Improves to WNL with 1-2 LPM Attempted IS use- declines I choke when I use that In afternoon urine output continued to be low. paged. New order for LR 1,000Ml bolus. PT ambulated to bathroom and voided 200cc @1830 Bed in low position, call glover within reach PLAN MOVING FORWARD: Encourage activity and independence Pain control VS & I/O Discharge planning INDIVIDUALIZED FALL PREVENTION INTERVENTIONS: Patient-specific fall risk factors per assessment: [current deficits]: Recent surgery, tubes/drains,pain,medication, unfamiliar environment. Assistance [level of assistance required for transfers and ambulation]: 1-2 assist w/ fww Supervision [direct monitoring required during toileting and ADLs]: Hands on Surveillance [continuous indirect monitoring]: Masimo, rounding, bed alarm, call glover, close to RN station Patient-specific fall prevention interventions for sensory deficits provided, if applicable: Yes CPG GOAL OUTCOME EVALUATION: Onoging Consult Note - Mahsa Nava RN - 07/24/2021 6:07 AM EDT Life Safety Program Consult Note Called to see Jahaira Montgomery who is a 61 y.o.female by 4W charge for difficulty to arouse patient. Admission Date/Time 07/22/2021 4:38 PM Hospital Day 2 days Problem List: Active Hospital Problems Diagnosis ??? Recurrent abdominal hernia Resolved Hospital Problems No resolved problems to display. Active Non-Hospital Problems Diagnosis ??? Incarcerated ventral hernia ??? Incarcerated hernia ??? Ostomy nurse consultation No Known Allergies 24 hour Events: Patient had hernia repair surgery yesterday. On dilaudid ARCHITECTURAL DRAFTSPERSON Subjective: Patient difficult to arouse at first. Nausea noted. PRN zofran given prior to my arrival. Toradol given in concurrent with benadryl relatively close in time which could result in patient's lethargy. ACS team at bedside on arrival. Objective: Vital Signs: Last value Range last 8 hrs Temperature Temp: 36.8 ??C (98.2 ??F) Temp: [36.6 ??C (97.9 ??F)-36.8 ??C (98.2 ??F)] Heart Rate Heart Rate: 61 Heart Rate: -- Blood Pressure BP: 115/56 BP: (115-116)/(56-64) Respiratory Rate Resp: 18 Resp: [18] SpO2 SpO2: 93 % SpO2: [93 %-95 %] Intake/Output Summary (Last 24 hours) at 07/24/2021 0607 Last data filed at 07/24/2021 0410 Gross per 24 hour Intake 1743 ml Output 590 ml Net 1153 ml Respiratory: 2L NC applied Cardiovascular: NSR/SB to the mid 40's Neuro:alert and oriented x4, 4/5 strengths, PERRLA, lethargic, arouses to voice Current Medications: Infusions: ??? lactated Ringers 100 mL/hr (07/24/21 0321) ??? HYDROmorphone Scheduled medications: ??? ketorolac 15 mg Intravenous Q6H ??? ARCHITECTURAL DRAFTSPERSON shift total and Settings verification Intravenous 2 Times Daily- ARCHITECTURAL DRAFTSPERSON Shift Total ??? sodium chloride 0.9 % (flush) 5 mL Intravenous BID ??? heparin (porcine) 5,000 Units Subcutaneous Q8H MICHAEL ??? atorvastatin 20 mg Oral QPM ??? polyethylene glycoL 17 g Oral Daily ??? acetaminophen 1,000 mg Oral Q6H MICHAEL ??? lidocaine 3 patch Transdermal Q24H And ??? lidocaine 3 patch Transdermal Q24H ??? nicotine 1 patch Transdermal Daily And ??? nicotine 1 patch Transdermal Daily And ??? Patch Verification 1 patch Transdermal BID ??? hydroCHLOROthiazide 25 mg Oral Daily PRN Medications: diphenhydrAMINE, prochlorperazine, ondansetron, naloxone, sodium chloride 0.9 % (flush), lidocaine, senna-docusate Laboratory: Lab Results Component Value Date Potassium 4.3 07/24/2021 Calcium 8.9 07/24/2021 CO2 22 07/24/2021 BUN 17 07/24/2021 Creatinine 0.65 (L) 07/24/2021 Assessment: Paged at 05:44 for difficulty to arouse Ms. Montgomery. Upon my arrival patient was receiving 4 mg of IV zofran. Per staff she is on dilaudid ARCHITECTURAL DRAFTSPERSON, no continuous rate. She had received some IV Toradol to which she then developed nausea and increased temperature. 25 mg of IV benadryl administered after Toradol was given. Patient alert and oriented x4 but lethargic. Frequently falling asleep during my assessment. HR as low as mid 40's. BP stable with MAPs in the 90's. Dilaudid ARCHITECTURAL DRAFTSPERSON turned off. Plan: oxygen, jan monitor Remain on Floor Please page #[phone] with any questions/concerns. Thank you! Mahsa Nava, RN 6:07 AM July 24, 2021 Plan of Care - Afshan Gill RN - 07/24/2021 2:52 AM EDT OUTCOME EVALUATION NOTE: OUTCOME SUMMARY: 2037-Transferred from PACU post Hernia repair, denies pain nor nausea at the moment. Midline abdominal incision with prevena vac and with binder on. 2 JPs with minimal drainage small amount of sanguinous drainage. Instructed with ARCHITECTURAL DRAFTSPERSON use. Slept in between care. 0522-Given scheduled Toradol, patient complained of feeling hot and can't see and she tried to blinked and after a few minutes she said she can see but complaining of nausea.. Blood sugar check 188. Some episode of staring blankly in space. 0535-Given Benadryl 25 mg thinking of some allergic reaction.Called Life safety and public relations analyst. They came to see patient. Jahaira was able to answer orientation questions. 0552-Given Zofran for nausea and monitored closely. ARCHITECTURAL DRAFTSPERSON pump set aside for now. Pain button taken away from Jahaira. 0652-Sleeping at the moment with bradycardia and some sleep apnea. PLAN MOVING FORWARD: Pain control, Vac dressing and GEE care. Ambulation in am. INDIVIDUALIZED FALL PREVENTION INTERVENTIONS: Patient-specific fall risk factors per assessment: [current deficits]: Narcotics, needs assistance getting in and out of bed or chair, pain with movement/ ambulation. Assistance [level of assistance required for transfers and ambulation]: Walker, Non-skid slippers, 1person assist Supervision [direct monitoring required during toileting and ADLs]: Hands on . Surveillance [continuous indirect monitoring]: Purposeful rounding; call light in reach Patient-specific fall prevention interventions for sensory deficits provided, if applicable: Glasses, Lighting adjusted for safety. CPG GOAL OUTCOME EVALUATION: Brief Op Note - Lisandro Treviño MD - 2021 5:27 PM EDT Brief Operative Note Patient Name: Jahaira Montgomery : [id number] MR#: [id number] Case Date: 2021 Surgeon: Surgeon(s) and Role: * Iliana Helton MD - Primary * Lisandro Treviño MD - Resident * Gerardo Treviño MD - Resident Preoperative diagnosis: recurrent ventral hernia Postoperative diagnosis: recurrent ventral hernia Procedure(s) (LRB): HERNIA REPAIR, VENTRAL OR INCISIONAL, RECURRENT, INCARCERATED (WRVU 15.53) (N/A) IMPLANT MESH FOR INCISIONAL OR VENTRAL HERNIA REPAIR (WRVU 4.88) (N/A) Anesthesia: General Findings: - Multiple ventral hernia defects, no incarcerated or threatened bowel, removed visible previous PDS sutures, partial scar excision, made subcutaneous flaps and closed fascia with running 0 PDS and reinforced closure with onlay ovitex (PDS) Complications: None Estimated Blood Loss: 100cc Specimens removed during surgery: None Fluids: Intraprocedure Crystalloid Total None PRBCs: none (See Anesthesia Record/Report for Other Blood Products) Urine Output: 60 mL Drains: 15 mexican Bard round drains x 1 in the subcutaneous space (right and left abdomen) Disposition: awakened from anesthesia, extubated and taken to the recovery room in a stable condition, having suffered no apparent untoward event. Condition: doing well without problems Surgical Infection Prevention Bundle Used? N/A Lisandro Treviño MD 2021 Associated attestation - Iliana Helton MD - 07/24/2021 6:48 AM EDT I was the attending physician supervising the resident in the above care and I was present with the resident for the onofre component(s) of the procedure and remained immediately available throughout the remainder. Iliana Helton MD 07/24/2021 6:48 AM Op Note - Lisandro Treviño MD - 2021 5:[address] [facility] Operative Note Patient Name: Jahaira Montgomery : [id number] MR#: [id number] Case Date: 2021 Surgeon: Surgeon(s) and Role: * Iliana Helton MD - Primary * Lisandro Treviño MD - Resident * Gerardo Treviño MD - Resident Preoperative diagnosis: recurrent ventral hernia Postoperative diagnosis: recurrent ventral hernia Procedure(s) (LRB): HERNIA REPAIR, VENTRAL OR INCISIONAL, RECURRENT, INCARCERATED (WRVU 15.53) (N/A) IMPLANT MESH FOR INCISIONAL OR VENTRAL HERNIA REPAIR (WRVU 4.88) (N/A) Findings: - Multiple ventral hernia defects, no incarcerated or threatened bowel, removed visible previous PDSsutures, partial scar excision, made subcutaneous flaps and closed fascia with running 0 PDS and reinforced closure with onlay ovitex (PDS) Anesthesia: General Estimated Blood Loss: 50cc Specimens removed during surgery: Abdominal wall fluid culture Drains: 15 mexican bard round drain x 2 (right and left abdomen exit sites, both in the subcutaneous suprafascial space) Surgical Closure: Primary Closure - skin incision is completely closed without any wires, piotr, drains or other devices Disposition: awakened from anesthesia, extubated and taken to the recovery room in a stable condition, having suffered no apparent untoward event. Condition: doing well without problems HPI/Surgical Indications: 61 y.o. female with a hx of current tobacco use, obesity, T2DM (HbA1c 7.1%), chronic knee pain, diverticulitis s/p Lucy's procedure with reversal in March 2019 who was recently hospitalized at [facility] from 04/25-04/28/2021 with an incarcerated ventral hernia. She had a similar presentation in April 2020 at which time a hernia was reduced and hernia was repaired primarily. She presented to clinic yesterday with two weeks of abdominal pain to the left of midline and with recent CT A/P demonstrated two areas of hernia recurrence. Procedure Description: Patient was brought to the operating room and positioned supine. Pressure points were padded. The patient underwent general anesthesia and endotracheal intubation. Preoperative antibiotics were given. The abdomen was prepped and draped in a normal sterile fashion using chlorhexidine. A time out was performed, consent was confirmed, and all participants were in agreement to proceed. A midline laparotomy incison was made sharply and carried through scar sharply. We entered the abdomen at the superior aspect, noting hernia sac and bowel below that was uninjured. Bowel was sharply dissected free from fascial edges using scissors. The midline was extended caudally for 5cm below the umbilicus using the previous incision. Bowel was dissected free from the anterior abdominal wall usingblunt dissection and scissors for adhesiolysis until there was a 10cm radius of free circumferentialfascia. We did not lyse adhesions between small bowel nor did we run the small bowel. There was one pocket of serous fluid under pressure on the left abdomen beneath the areas of skin ulceration that was sent for fluid sample. We then excised excess midline scar tissue and associated PDS sutures from prior repairs. We then made subcutaneous flaps above the fascia. Fascia was closed with running 0 PDSmet in the middle. Defect was [id number]. Next, a [id number] ovitex onlay PDS mesh was secured circumferentially with anterior sheath 0 PDS sutures and then trimmed to size. Two 15 mexican Bard round drains were placed in the subcutaneous space exiting the skin on each side of the abdomen. Deep 3-0 vicryl dermal sutures approximated the skin and skin was closed with shelley and a provena wound vac. At the end of the case all counts were correct. The patient was woken from anesthesia and extubated having suffered no untoward event. They were brought to the PACU in stable condition. Dr. Helton was scrubbed for the critical portions of the case. Surgical Infection Prevention Bundle Used? N/A Lisandro Treviño MD 2021 Associated attestation - Iliana Helton MD - 07/24/2021 6:49 AM EDT Attestation: Case Date: 2021 I was the attending physician supervising the resident in the above care and I was present with the resident for the onofre component(s) of the procedure and remained immediately available throughout the remainder. Iliana Helton MD 07/24/2021 6:49 AM Plan of Care - Tiana Gamez RN - 2021 2:46 PM EDTSummary: plan of care Pt A&O VSS on room air. Pt not controlled at this time- rates a 7/10 with movement but decliningany further medication. ABD is obese, soft and tender in the LLQ. + stool and flatus. Denies nausea or vomiting. Up to [place] and is continent of [place] Pt getting Multiple runs of potassium via IV. Recheck due, phelb paged but did not come up until pt went to OR. To OR at 1430- not back at time of shift change. Initial Assessments - Iliana Fierro RN - 2021 11:04 AM EDT Office of Care Management Initial Assessment Medical record reviewed. Plan of care and patient status discussed with direct care Registered Nurseand/or Care Team in multidisciplinary rounds. Reason for Hospitalization: Ventral hernia Last COVID test: Lab Results Component Value Date COVID19 Not Detected 04/27/2021 [id number] Not Detected 07/22/2021 Present on Admission: ??? Recurrent abdominal hernia Hospitalizations Within the Past 30 Days: no previous admission in last 30 days Patient receiving hospital care under Inpatient status. Admission order reviewed. Primary Insurance on file: MEDICAID [place] Secondary Insurance on file: n/a Primary care provider on file: Ally Mary Ortiz, TAMMY [phone] Pharmacy: [id number] - [place], [place] - [address] [place] [id number] Advance Care Planning: Attempt Cardiopulmonary Resuscitation - Inpatient <no information> -Advanced Directive: No, declines 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 Functional Status Prior to Admission: Independent Home Environment: Others in the home: sibling(s). Current Living Arrangements: home/apartment/condo. Current DME: none [address] [facility] [id number] Social & Family Supports: Extended Emergency Contact [...] accessing necessary care and/or follow-up after discharge. Plan: Patient to d/c to home via family when medically ready. Registered Nurse Stator Winder / Sourcing Engineer will continue to follow patient???s progress and remain available if situation changes for coordination of care, psychosocial support and/or discharge planning. Office of Care Management Iliana Fierro RN Case Manager Pgr: [phone] Plan of Care - Afshan Gill RN - 2021 4:48 AM EDT OUTCOME EVALUATION NOTE: OUTCOME SUMMARY: 2000-Denies pain nor SOB, had uneventful night slept thru the night PLAN MOVING FORWARD: NPO post midnight for OR in am. INDIVIDUALIZED FALL PREVENTION INTERVENTIONS: Patient-specific fall risk factors per assessment: [current deficits]: Narcotics, needs assistance getting in and out of bed or chair, pain with movement/ ambulation. Assistance [level of assistance required for transfers and ambulation]: , IV pole, Non-skid slippers, stand by. Supervision [direct monitoring required during toileting and ADLs]: Arms reach . Surveillance [continuous indirect monitoring]: Purposeful rounding; call light in reach Patient-specific fall prevention interventions for sensory deficits provided, if applicable: Glasses, Lighting adjusted for safety. CPG GOAL OUTCOME EVALUATION: documented in this encounter Plan of Treatment Upcoming Encounters Date Type Specialty Care Team Description 09/30/2021 Office Visit General Surgery Paloma Mota, DIRECTOR HARDWARE [facility] GENERAL SURGERY [place], [place] [address] (Wo rk) 09/30/2021 Office Visit Infectious Diseases Werner Harrell MD [facility] INFECTIOUS DISEA [place], [place] [address] (Wo rk) Scheduled Referrals Name Type Priority Associated Diagnoses Order S chedule Referral to Home Outpatient Referral Routine Recurrent abdomin al Ordered: Health hernia without 07/25/2021 obstruction or gangrene, unspecified hernia type documented as of this encounter Procedures Procedure Name Priority Date/Time Associated Comments Diagnosis POCT GLUCOSE Routine 07/24/2021 5:33 AM Results f or this EDT procedure are i n the results section. HC PHOSPHORUS, SERUM Routine 07/24/2021 5:21 AM R esults for this EDT procedure are i n the results section. HC MAGNESIUM, SERUM Routine 07/24/2021 5:21 AM Re sults for this EDT procedure are i n the results section. HC VENIPUNCTURE Routine 07/24/2021 5:21 AM Result s for this EDT procedure are i n the results section. POCT GLUCOSE Routine 2021 5:40 PM Results f or this EDT procedure are i n the results section. IMPLANT MESH FOR Routine 2021 5:06 PM INCISIONAL OR VENTRAL EDT HERNIA REPAIR HERNIA REPAIR,VENTRAL Routine 2021 5:06 PM OR INCISIONAL, EDT RECURRENT, INCARCERATED ANAEROBIC CULTURE Routine 2021 3:37 PM Resu lts for this EDT procedure are i n the results section. HC GRAM STAIN FOR Routine 2021 3:37 PM BACTERIA EDT ABSCESS/WOUND ASPIRATE Routine 2021 3:37 PM Results for this CULTURE EDT procedure are i n the results section. IMPLANT MESH FOR 2021 2:35 PM recurrent ventral INCISIONAL OR VENTRAL EDT hernia HERNIA REPAIR (WRVU 4.88) HERNIA REPAIR, VENTRAL 2021 2:35 PM recurrent ve ntral OR INCISIONAL, EDT hernia RECURRENT, INCARCERATED (WRVU 15.53) TYPE AND SCREEN Routine 2021 4:29 AM Result s for this VALIDITY EDT procedure are i n the results section. ABORH RECHECK STATUS Routine 2021 4:29 AM R esults for this EDT procedure are i n the results section. HEMOGRAM Routine 2021 4:29 AM Results f or this EDT procedure are i n the results section. DIFFERENTIAL, AUTOMATED Routine 2021 4:29 AM Results for this EDT procedure are i n the results section. ABO/RH TYPING Routine 2021 4:29 AM Results for this EDT procedure are i n the results section. HC PARTIAL Routine 2021 4:29 AM Results f or this THROMBOPLASTIN TIME EDT procedur e are in the results section. HC PROTHROMBIN TIME Routine 2021 4:29 AM Re sults for this EDT procedure are i n the results section. HC CBC,PLT & AUTO DIFF Routine 2021 4:29 AM EDT ANTIBODY SCREEN Routine 2021 4:29 AM Result s for this EDT procedure are i n the results section. HC ABO-MICROTITER Routine 2021 4:29 AM EDT HC PHOSPHORUS, SERUM Routine 2021 4:29 AM R esults for this EDT procedure are i n the results section. HC MAGNESIUM, SERUM Routine 2021 4:29 AM Re sults for this EDT procedure are i n the results section. COMPREHENSIVE METABOLIC Routine 2021 4:29 AM Results for this PANEL (NON-FASTING) EDT procedur e are in the results section. RAPID COVID-19 PCR Routine 07/22/2021 7:21 PM Res ults for this ([facility]/APD/NLH) EDT procedure are in the results section. SCAN, PERIPHERAL BLOOD Routine 07/22/2021 4:52 PM Results for this EDT procedure are i n the results section. HEMOGRAM Routine 07/22/2021 4:52 PM Results f or this EDT procedure are i n the results section. DIFFERENTIAL, AUTOMATED Routine 07/22/2021 4:52 PM Results for this EDT procedure are i n the results section. HC VENIPUNCTURE Routine 07/22/2021 4:52 PM EDT HC PHOSPHORUS, SERUM Routine 07/22/2021 4:52 PM R esults for this EDT procedure are i n the results section. HC MAGNESIUM, SERUM Routine 07/22/2021 4:52 PM Re sults for this EDT procedure are i n the results section. BASIC METABOLIC PANEL Routine 07/22/2021 4:52 PM Results for this (NON-FASTING) EDT procedure are in the results section. documented in this encounter Results POCT Glucose (07/24/2021 5:33 AM EDT) athologist Signature POC Glucose 188 65 - 199 [facility] mg/dL [facility] Comment: Supplemental ranges: <140 mg/dL before meals <180 mg/dL all other times of the day Specimen Anatomical Collection Method Collection Time Receive d Time (Source) Location / / Volume Laterality Blood 07/24/2021 5:33 AM 5:33 EDT AM EDT Iliana Helton MD POINT OF CARE TEST ORDERABLE S Performing Organization Address City/State/[place] [address] Phosphorus (07/24/2021 5:21 AM EDT) athologist Signature Phosphorus 3.2 2.5 - 4.5 [facility] Specimen Anatomical Collection Method Collection Time Receive d Time (Source) Location / / Volume Laterality Blood 07/24/2021 5:21 AM 5:30 EDT AM EDT Resulting Agency Comment Spec In Lab Iliana Helton MD CHEMISTRY ORDERABLES Performing Organization Address City/State/ZIP Code Phon e Number [address] Magnesium (07/24/2021 5:21 AM EDT) athologist Signature Magnesium 0.93 0.69 - 1.07 [facility] mmol/L [facility] Specimen Anatomical Collection Method Collection Time Receive d Time (Source) Location / / Volume Laterality Blood 07/24/2021 5:21 AM 5:30 EDT AM EDT Resulting Agency Comment Spec In Lab Iliana Helton MD CHEMISTRY ORDERABLES Performing Organization Address City/State/ZIP Code Phon e Number [address] (ABNORMAL) Basic Metabolic Panel (non-fasting) (07/24/2021 5:21 AM EDT) athologist Signature Glucose Lvl 175 65 - 199 [facility] mg/dL [facility] Comment: Diabetes: >=200 mg/dL plus symp toms BUN 17 8 - 18 mg/dL [facility] Creatinine 0.65 (L) 0.70 - 1.20 mg/dL [facility] Sodium 134 (L) 135 - 145 mmol/L [facility] Potassium 4.3 3.5 - 5.0 mmol/L [facility] Comment: result rechecked- Please note: ??Patients with WBC >100,00 0 may have falsely elevated Potassium levels. ??For accurate Potassium quantif ication in these patients send serum separator tube (gold top) for subsequent determinations. ??Contact the Clinical Chemistry Laboratory if there are any qu estions. Chloride 99 98 - 107 mmol/L [facility] CO2 22 22 - 31 mmol/L [facility] Anion Gap 13 5 - 15 mmol/L [facility] Calcium 8.9 8.5 - 10.5 mg/dL [facility] Estimated GFR 97 >=60 mL/min/1.73 m?? [facility] Comment: This patient? s estimated [...] (Source) Location / / Volume Laterality Blood 07/24/2021 5:21 AM 2 5:30 EDT AM EDT Resulting Agency Comment Spec In Lab Iliana Helton MD CHEMISTRY ORDERABLES Performing Organization Address City/State/ZIP Code Phon e Number [address] POCT Glucose (2021 5:40 PM EDT) P athologist Signature POC Glucose 181 65 - 199 [facility] mg/dL [facility] Comment: Supplemental ranges: <140 mg/dL before meals <180 mg/dL all other times of the day Specimen Anatomical Collection Method Collection Time Receive d Time (Source) Location / / Volume Laterality Blood 2021 5:40 PM 2 5:40 EDT PM EDT Iliana Helton MD POINT OF CARE TEST ORDERABLE S Performing Organization Address City/State/[place] [address] Anaerobic Culture (2021 3:37 PM EDT) Patholo gist Method Time Signature Anaerobic No anaerobic [facility] Culture organisms [facility] LABORATORY Specimen Anatomical Collection Method Collection Time Receive d Time (Source) Location / / Volume Laterality Deep Wound ABDOMEN / Unknown 2021 3:37 PM 07/14 4:00 EDT PM EDT Comment: Midline Abdominal wound - cultu re Resulting Agency Comment Spec In Lab Lisandro Treviño MD MICROBIOLOGY - GENERAL ORDER [place] Performing Organization Address City/[facility]/ZIP Code Phon e Number [address] Abscess/Wound Aspirate Culture (2021 3:37 PM EDT) Component Value Ref Test Analysis Performed At [facility] Range Method Time Signature Abscess/Wound Normal cutaneous tania isolated from broth culture. OLGA Aspirate No growth on original plates. [facility] LABORATORY Gram Stain Few Neutrophils seen OLGA No microorganisms seen. [facility] LABOR[facility]ORY Specimen Anatomical Collection Method Collection Time Receive d Time (Source) Location / / Volume Laterality Deep Wound ABDOMEN / Unknown 2021 3:37 PM 07/14 4:00 EDT PM EDT Comment: Midline Abdominal wound - cultu re Resulting Agency Comment Spec In Lab Lisandro Treviño MD MICROBIOLOGY - GENERAL ORDER [place] Performing Organization Address City/[facility]/[place] [address] Type and Screen Validity (2021 4:29 AM EDT) [facility] Method Time Signature T&S only valid [facility] LABORATORY Comment: This Type and Screen result is only valid at the [facility] Specimen Anatomical Collection Method Collection Time Receive d Time (Source) Location / / Volume Laterality Blood 2021 4:29 AM 2 4:58 EDT AM EDT Resulting Agency Comment Spec In Lab Willie Chandler MD BLOOD BANK ORDERABLES Performing Organization Address City/[facility]/ZIP Code Phon e Number [address] ABORH Recheck Status (2021 4:29 AM EDT) [facility] Method Time Signature ABORH Type Completed [facility] LABORATORY Specimen Anatomical Collection Method Collection Time Receive d Time (Source) Location / / Volume Laterality Blood 2021 4:29 AM 2 4:58 EDT AM EDT Resulting Agency Comment Spec In Lab Willie Chandler MD BLOOD BANK ORDERABLES Performing Organization Address City/State/[place] [address] Antibody screen (2021 4:29 AM EDT) [facility] Method Time Signature Ab Screen Negative [facility] LABORATORY Expires at 07/26/2021 [facility] [id number] on: [facility] Specimen Anatomical Collection Method Collection Time Receive d Time (Source) Location / / Volume Laterality Blood 2021 4:29 AM 2 4:58 EDT AM EDT Resulting Agency Comment Spec In Lab Willie Chandler MD BLOOD BANK ORDERABLES Performing Organization Address City/[facility]/ZIP Code Phon e Number [address] ABO/Rh Typing (2021 4:29 AM EDT) athologist Signature ABORh Type O Pos [facility] Specimen Anatomical Collection Method Collection Time Receive d Time (Source) Location / / Volume Laterality Blood 2021 4:29 AM 2 4:58 EDT AM EDT Resulting Agency Comment Spec In Lab Willie Chandler MD BLOOD BANK ORDERABLES Performing Organization Address City/[facility]/[place] [address] (ABNORMAL) Differential, Automated (2021 4:29 AM EDT) [facility] Method Time Signature Neutrophils % 56.0 % [facility] Neutr Abs (ANC) 6.73 (H) 1.70 - [facility] 6.10 [facility] x10(3)/[facility] LABORATORY Lymphocytes % 32.8 % [facility] Lymphocytes Abs 4.0 (H) 0.9 - 3.2 [facility] x10(3)/[facility] LABORATORY Monocytes % 6.0 % [facility] Monocyte Abs 0.7 0.3 - 0.9 [facility] x10(3)/[facility] LABORATORY Eosinophils % 4.0 % [facility] Eosinophils Abs 0.5 (H) 0.0 - 0.4 [facility] x10(3)/[facility] LABORATORY Basophils % 0.8 % [facility] Basophils Abs 0.1 0.0 - 0.1 [facility] x10(3)/[facility] LABORATORY Immature Gran % 0.40 % [facility] Comment: Immature granulocytes(IG's)percentage an d absolute count will include metamyelocytes, myelocytes, and promyelo cytes. Blood smears from CBCs yielding IG's will be scanned manually for concor dance. If this scan disagrees with the automated IG or if promyelocytes are not ed, a manual differential will be performed. [place] Gran Abs 0.05 (H) 0.00 - 0.04 x10(3)/[facility] LABORATORY Specimen Anatomical Collection Method Collection Time Receive d Time (Source) Location / / Volume Laterality Blood 2021 4:29 AM 4:49 EDT AM EDT Resulting Agency Comment Spec In Lab Willie Chandler MD HEMATOLOGY ORDERABLES Performing Organization Address City/State/[place] [address] (ABNORMAL) Hemogram (2021 4:29 AM EDT) Analysis Performed At Patho logist Time Signature WBC 12.0 (H) 4.0 - 9.5 [facility] x10(3[facility] LAB[facility]ORY RBC 4.61 4.00 - [facility] 5.21 [facility] x10(6)/[facility] LABORATORY Hemoglobin 13.8 11.7 - [facility] 15.5 g/dL [facility] Hematocrit 43.0 35.7 - [facility] 45[facility]8 % [facility] MCV 93.3 82.6 - [facility] 94.4 fL [facility] MCH 29.9 27.1 - [facility] 32.0 pg [facility] LABORATORY MCHC 32.1 31.7 - [facility] 35.0 g/dL [facility] Platelets 349 145 - 357 [facility] x10(3)/[facility] LAB[facility]ATORY RDWSD 43.9 37.0 - [facility] 46.0 [facility] LABORATORY RDWCV 13.0 11.5 - [facility] 14.1 % [facility] LABORATORY MPV 9.4 7.6 - 12.9 [facility] LABORATORY nRBC % Auto 0.0 % [facility] nRBC Abs Auto 0.000 0.000 - [facility] 0.000 [facility] x10(3)/[facility] LABORATORY Specimen Anatomical Collection Method Collection Time Receive d Time (Source) Location / / Volume Laterality Blood 2021 4:29 AM 2 4:49 EDT AM EDT Resulting Agency Comment Spec In Lab Willie Chandler MD HEMATOLOGY ORDERABLES Performing Organization Address City/[facility]/ZIP Code Phon e Number [address] Phosphorus (2021 4:29 AM EDT) P athologist Signature Phosphorus 3.8 2.5 - 4.5 [facility] mg/dL [facility] Specimen Anatomical Collection Method Collection Time Receive d Time (Source) Location / / Volume Laterality Blood 2021 4:29 AM 2 4:49 EDT AM EDT Resulting Agency Comment Spec In Lab Iliana Helton MD CHEMISTRY ORDERABLES Performing Organization Address City/[facility]/ZIP Code Phon e Number [address] Magnesium (2021 4:29 AM EDT) P athologist Signature Magnesium 0.81 0.69 - 1.07 [facility] mmol/L [facility] Specimen Anatomical Collection Method Collection Time Receive d Time (Source) Location / / Volume Laterality Blood 2021 4:29 AM 2 4:49 EDT AM EDT Resulting Agency Comment Spec In Lab Iliana Helton MD CHEMISTRY ORDERABLES Performing Organization Address City/[facility]/ZIP Code Phon e Number [facility] [place] [address] (ABNORMAL) Comprehensive metabolic panel (non-fasting) (2021 4:29 AM EDT) athologist Signature Glucose Lvl 166 65 - 199 [facility] mg/dL [facility] Comment: Diabetes: >=200 mg/dL plus symp toms BUN 24 (H) 8 - 18 mg/dL [facility] Creatinine 0.69 (L) 0.70 - 1.20 mg/dL [facility] Sodium 136 135 - 145 mmol/L [facility] Potassium 3.0 (Critical) 3.5 - 5.0 mmol/L [facility] Comment: called by lynn/read back by carolyn alonso/ 07-23-21 [id number] Please note: ??Patients with WBC >100,00 0 may have falsely elevated Potassium levels. ??For accurate Potassium quantif ication in these patients send serum separator tube (gold top) for subsequent determinations. ??Contact the Clinical Chemistry Laboratory if there are any qu estions. Chloride 98 98 - 107 mmol/L [facility] CO2 25 22 - 31 mmol/L [facility] Anion Gap 13 5 - 15 mmol/L [facility] Calcium 9.0 8.5 - 10.5 mg/dL [facility] Total Protein 6.6 6.1 - 8.0 g/dL [facility] Albumin 3.4 3.2 - 5.2 g/dL [facility] AST 15 0 - 30 unit/L [facility] ALT 11 0 - 30 unit/L [facility] Alk Phos 99 35 - 105 unit/L [facility] Total Bilirubin <0.2 (L) 0.2 - 1.3 mg/dL [facility] Estimated GFR 95 >=60 mL/min/1.73 m?? [facility] Comment: This patient? s estimated [...] EDT Resulting Agency Comment Spec In Lab Iliana Helton MD CHEMISTRY ORDERABLES Performing Organization Address City/[facility]/[place] [address] APTT (2021 4:29 AM EDT) athologist Signature PTT 34 25 - 37 sec [facility] Comment: The PTT is NOT [...] EDT Resulting Agency Comment Spec In Lab Iliana Helton MD HEMATOLOGY ORDERABLES Performing Organization Address City/State/[place] [address] Prothrombin Time (2021 4:29 AM EDT) P athologist Signature PT 11.6 9.4 - 12.5 [facility] LABORATORY INR 1.0 [facility] Comment: An INR <2.0 indicates [...] / Volume Laterality Blood 2021 4:29 AM 4:49 EDT AM EDT Resulting Agency Comment Spec In Lab Iliana Helton MD HEMATOLOGY ORDERABLES Performing Organization Address City/State/ZIP Code [place] [address] COVID-19 PCR (07/22/2021 7:21 PM EDT) [facility] Method Time Signature SARS-CoV-2 Not Detected Not Detected [place] RNA PCR [facility] Comment: This result should [...] using the Simplex[employer] COVID-19 Direct Assay by [employer][email or web address] as authorized by the FDA issued Emergency [...] of Pathology and Laboratory Medicine at [facility], certified under the Clinical Laboratory Improvement [...] clinical management guidance information are available at [facility] CDC Coronavirus Disease 2019 (COVID-19) webpage under Information fo r Healthcare Professionals (https://www.cdc.gov/coronavirus/2019-nc ov/hcp/index.html). Additional information about this and ot her EUA tests can be found in provider and patient fact sheets at the following FDA website: https://www.fda.gov/medical-devices/ikrsxsybvfl-riehkez-1665-ifrvl-83-qaolxyifg- iis-xltgbhrtedejfe-jhcisln-devices/zgbzf-svaadlkbjpr-tgqe SARS-CoV-2 Source WIRE DRAWING SETTER Swab [facility] Specimen (Source) Anatomical Collection Method Collection Time Re ceived Time Location / / Volume Laterality Nasopharyngeal Swab 07/22/2021 7:21 07/22 PM EDT 8:21 PM EDT Comment: Symptoms->Surveillance Resulting Agency Comment Spec In Lab Iliana Helton MD MICROBIOLOGY - GENERAL ORDER [place] Performing Organization Address City/[facility]/[place] [address] Scan, Peripheral Blood (07/22/2021 4:52 PM EDT) [facility] gist Method Time Signature Plat Estimate Increased [facility] RBC Morphology Normal [facility] Specimen Anatomical Collection Method Collection Time Receive d Time (Source) Location / / Volume Laterality Blood 07/22/2021 4:52 PM 5:07 EDT PM EDT Resulting Agency Comment Spec In Lab Sajan Samayoa MD HEMATOLOGY ORDERABLES Performing Organization Address City/[facility] [place] [address] (ABNORMAL) Differential, Automated (07/22/2021 4:52 PM EDT) Patholo gist Method Time Signature Neutrophils % 55.4 % [facility] Neutr Abs (ANC) 8.01 (H) 1.70 - [facility] 6.10 [facility] HOSPITAL x10(3)/[facility] LABORATORY Lymphocytes % 33.9 % [facility]OR[facility] Lymphocytes Abs 4.9 (H) 0.9 - 3.2 [facility] x10(3)/[facility] LABORATORY Monocytes % 5.5 % [facility] Monocyte Abs 0.8 0.3 - 0.9 [facility] x10(3)/[facility] LABORATORY Eosinophils % 3.7 % [facility] Eosinophils Abs 0.5 (H) 0.0 - 0.4 [facility] x10(3)/[facility] LABORATORY Basophils % 0.9 % [facility] Basophils Abs 0.1 0.0 - 0.1 [facility] x10(3)/[facility] LABORATORY Immature Gran % 0.60 % [facility] Comment: Immature granulocytes(IG's)percentage an d absolute count will include metamyelocytes, myelocytes, and promyelo cytes. Blood smears from CBCs yielding IG's will be scanned manually for concor dance. If this scan disagrees with the automated IG or if promyelocytes are not ed, a manual differential will be performed. [place] Gran Abs 0.08 (H) 0.00 - 0.04 x10(3)/[facility] LABORATORY Specimen Anatomical Collection Method Collection Time Receive d Time (Source) Location / / Volume Laterality Blood 07/22/2021 4:52 PM 5:07 EDT PM EDT Resulting Agency Comment Spec In Lab Sajan Samayoa MD HEMATOLOGY ORDERABLES Performing Organization Address City/State/[place] [address] (ABNORMAL) Hemogram (07/22/2021 4:52 PM EDT) Analysis Performed At Patho logist Time Signature WBC 14.4 (H) 4.0 - 9.5 [facility] x[facility](3[facility] LAB[facility] RBC 5.08 4.00 - [place] 5.21 [facility] x10(6)/[facility] LABORATORY Hemoglobin 15.1 11.7 - [place] 15.5 g/dL [facility] LABORATORY Hematocrit 46.5 (H) 35.7 - [place] 45.8 % [facility] LABORATORY MCV 91.5 82.6 - [facility] MARVIN 94.4 [facility] LABORATORY MCH 29.7 27.1 - [place] 32.0 pg [facility] LABORATORY MCHC 32.5 31.7 - [place] 35.0 g/dL [facility] LABORATORY Platelets 431 (H) 145 - 357 [facility] x10(3[facility] LABORATORY RDWSD 43.0 37.0 - [place] 46.0 [facility] LABORATORY RDWCV 12.7 11.5 - [facility] MARVIN 14.1 % [facility] LABORATORY MPV 9.4 7.6 - 12.9 [place] [facility] LABORATORY nRBC % Auto 0.0 % [facility] nRBC Abs Auto 0.000 0.000 - [place]NDEZMARVIN 0.000 [facility] x10(3)/[facility] LABORATORY Specimen Anatomical Collection Method Collection Time Receive d Time (Source) Location / / Volume Laterality Blood 07/22/2021 4:52 PM 2 5:07 EDT PM EDT Resulting Agency Comment Spec In Lab Sajan Samayoa MD HEMATOLOGY ORDERABLES Performing Organization Address City/State/ZIP Code [place] [address] Phosphorus (07/22/2021 4:52 PM EDT) P athologist Signature Phosphorus 3.4 2.5 - 4.5 [place] mg/dL [facility] LABORATORY Specimen Anatomical Collection Method Collection Time Receive d Time (Source) Location / / Volume Laterality Blood 07/22/2021 4:52 PM 2 5:07 EDT PM EDT Resulting Agency Comment Spec In Lab Iliana Helton MD CHEMISTRY ORDERABLES Performing Organization Address City/State/[place] [address] [facility] [address]ORY [address] Magnesium (07/22/2021 4:52 PM EDT) athologist Signature Magnesium 0.84 0.69 - 1.07 [facility] mmol/L [facility] LABORATORY Specimen Anatomical Collection Method Collection Time Receive d Time (Source) Location / / Volume Laterality Blood 07/22/2021 4:52 PM 2 5:07 EDT PM EDT Resulting Agency Comment Spec In Lab Iliana Helton MD CHEMISTRY ORDERABLES Performing Organization Address City/State/[place] [address] [facility] [address]ORY Drive (ABNORMAL) Basic Metabolic Panel (non-fasting) (07/22/2021 4:52 PM EDT) athologist Signature Glucose Lvl 158 65 - 199 [facility] mg/dL [facility] LABORATORY Comment: Diabetes: >=200 mg/dL plus symp toms BUN 20 (H) 8 - 18 mg/dL [facility] LABORATORY Creatinine 0.76 0.70 - 1.20 mg/dL [facility] LABORATORY Sodium 137 135 - 145 mmol/L [facility] LABORATORY Potassium 3.2 (L) 3.5 - 5.0 mmol/L [facility] LABORATORY Comment: Please note: ??Patients with WBC >100,00 0 may have falsely elevated Potassium levels. ??For accurate Potassium quantif ication in these patients send serum separator tube (gold top) for subsequent determinations. ??Contact the Clinical Chemistry Laboratory if there are any qu estions. Chloride 96 (L) 98 - 107 mmol/L [facility] CO2 26 22 - 31 mmol/L [facility] Anion Gap 15 5 - 15 mmol/L [facility] LABORATORY Calcium 9.8 8.5 - 10.5 mg/dL [facility] LABORATORY Estimated GFR 86 >=60 mL/min/1.73 m?? [facility] Comment: This patient? s estimated glomerular filtration rate (eGFR) is between 86 mL/min/1.73 m2 (patients with less muscl e mass) and 100 mL/min/1.73 m2 (patients with more muscle mass) [...] (Source) Location / / Volume Laterality Blood 07/22/2021 4:52 PM 5:07 EDT PM EDT Resulting Agency Comment Spec In Lab Iliana Helton MD CHEMISTRY ORDERABLES Performing Organization Address City/State/ZIP Code Phon e Number [place] [id number] HOSPITAL LAB[address]ORY [address] documented in this encounter Visit Diagnoses Diagnosis Recurrent abdominal hernia without obstr uction or gangrene, unspecified hernia type documented in this encounter Admitting Diagnoses Diagnosis Recurrent abdominal hernia documented in this encounter Administered Medications Inactive Administered Medications - up to 3 most recent administrations Medication Order MAR Action Action Date Dose Rate Site acetaminophen (Tylenol) tablet Given 07/25/2021 6:18 AM EDT 1,00 0 mg 1,000 mg 1,000 mg, Oral, EVERY 6 HOURS SCHEDULED, First dose on Thu07/22/21 at 1800, Until Discontinued, Maximum dose of acetaminophen is 4000 mg from all sources in 24 hours. When ordered for pain, acetaminophen should be given even when other ordered pain medications are indicated. , Routine Given 07/24/2021 11:58 PM EDT 1,000 mg Given 07/24/2021 6:08 PM EDT 1,000 mg atorvastatin (Lipitor) tablet 20 mg Given 07/24/2021 4:53 PM EDT 20 mg 20 mg, Oral, EVERY EVENING, First dose on Thu07/22/21 at 1700, Until Discontinued, Routine Given 07/22/2021 5:05 PM EDT 20 mg diphenhydrAMINE (Benadryl) (50 mg/mL) Given 07/24/2021 5:35 AM E DT 25 mg injection 25 mg 25 mg, Intravenous, EVERY 30 MIN PRN, 2 doses, Starting on Thu07/23/21 at 2055, Until Thu07/24/21 at 1301, Itching, May repeat dose in 30 minutes if pruritis not relieved. Per ARCHITECTURAL DRAFTSPERSON order., Routine heparin (porcine) (5,000 units/1 mL) Given 07/25/2021 6:23 AM ED T 5,000 Units subcutaneous injection 5,000 Units 5,000 Units, Subcutaneous, EVERY 8 HOURS SCHEDULED, First dose on Thu07/22/21 at 1600, Until Discontinued, Routine Given 07/24/2021 9:55 PM EDT 5,000 Units Given 07/24/2021 2:00 PM EDT 5,000 Units hydroCHLOROthiazide (Hydrodiuril) tablet 25 mg Given 07/25/2021 8:44 AM EDT 25 mg 25 mg, Oral, DAILY, First dose on Thu07/23/21 at 0900, Until Discontinued, Routine Given 07/24/2021 9:09 AM EDT 25 mg Given 2021 8:58 AM EDT 25 mg HYDROmorphone (Dilaudid) (1 New Syringe/Cartridge 2021 6:15 PM 50 mg mg/mL) in sodium chloride 0.9% 50 EDT mL ARCHITECTURAL DRAFTSPERSON infusion Intravenous, ARCHITECTURAL DRAFTSPERSON ONLY, Starting on Thu07/23/21 at 1815, Until Thu07/24/21 at 1301 ibuprofen (Advil) tablet 600 mg 600 mg, Oral, EVERY 6 HOURS PRN, Startin g on Thu07/25/21 at 0901, Until Thu07/25/21 at 1920, Pain, Administer orally with milk or food to minimize GI irritation. Maximum dose of 3,200 mg from all sources in 24 hours, Routine ketorolac (Toradol) (15 mg/mL) injection 15 mg Given 07/25/2021 6:18 AM EDT 15 mg 15 mg, Intravenous, EVERY 6 HOURS, 20 doses, First dose on Thu07/24/21 at 0600, Last dose on Thu07/29/21 at 0000, Routine Given 07/24/2021 11:59 PM EDT 15 mg Given 07/24/2021 4:53 PM EDT 15 mg lactated Ringers 1,000 mL IV bolus New Bag 07/24/2021 4:52 PM EDT 500 mL/hr at 500 mL/hr, Intravenous, ONCE, 1 dose, On Thu07/24/21 at 1730 lactated ringers infusion New 2021 7:29 PM EDT 100 mL/hr 100 mL/hr 100 mL/hr, Intravenous, CONTINUOUS, Starting on Thu07/23/21 at 0000, Until Thu07/23/21 at 2055 New Bag 07/22/2021 11:24 PM EDT 100 mL/hr 100 mL/hr lactated ringers infusion New 07/24/2021 11:23 AM EDT 100 mL/hr 100 mL/hr 100 mL/hr, Intravenous, CONTINUOUS, Starting on Thu07/23/21 at 2145, Until Thu07/24/21 at 1430 New Bag 07/24/2021 3:21 AM EDT 100 mL/hr 100 mL/hr Continued 2021 9:18 PM EDT 100 mL/hr 100 mL/hr lidocaine (Lidoderm) 5% Patch Applied 07/24/2021 4:53 PM 3 patches 15- Thigh patch 3 patch EDT Anterior (Left) 3 patch, Transdermal, EVERY 24 HOURS, First dose on Thu07/22/21 at 1600, Until Discontinued, Apply patch(es) for 12 hours, and then remove for 12 hours., Routine Patch Applied 07/22/2021 5:06 PM EDT 3 patches 14- Abdomen (Right) lidocaine (Lidoderm) topical patch REMOV AL Transdermal, EVERY 24 HOURS, First dose on Thu07/23/21 at 0315, Until Discontinued, Remove lidocaine 5% patch lidocaine (Xylocaine) 1% (10 mg/mL) inje ction 3 mg 3 mg (0.3 mL), Subcutaneous, ONCE PRN, 1 dose, Startin g on Thu07/22/21 at 1503, Until Kiara 07/25/21 at 1920, for discomfort with PIV ins ertion, Recovery (Recovery-Hospital Unit), Routine magnesium sulfate 2 g in sterile water New 2021 6:25 AM EDT 2 g 25 mL/hr 50 mL infusion 2 g, Intravenous, ONCE, 1 dose, On Thu07/23/21 at 0645, Administer over 120 Minutes nicotine (Nicoderm CQ) 14 Given 2021 8:57 AM EDT 14 mg 09- Arm Upper (Left) mg/24 hr patch 14 mg 14 mg (1 patch), Transdermal, DAILY, First dose (after last modification) on Thu07/22/21 at 1700, Until Discontinued, Apply new patch to nonhairy, clean, dry skin on the upper body or upper outer arm; each patch should be applied to a different site , Routine nicotine (NICODERM CQ) 14 mg/24 hr patch Patch Removal Transdermal, DAILY, First dose (after la st modification) on Thu07/23/21 at 0900, Until Discontinued, Remove nicotine 14 mg/24 hr patch nicotine (NICODERM CQ) 14 mg/24 hr patch Patch Verification Transdermal, 2 TIMES DAILY, First dose ( after last modification) on Thu07/23/21 at 0415, Until Discontinued, Verify nicotine 14 mg/24 hr patch. ondansetron (pf) (Zofran) (2 mg/mL) injection 4 Given 2021 6:48 PM EDT 4 mg mg 4 mg, Intravenous, EVERY 30 MIN PRN, 2 doses, Starting on Thu07/23/21 at 1749, Until Thu07/23/21 at 1927, Nausea, Maximum total dose of 8 mg (including OR administration). If multiple antiemetics ordered, use ondansetron first and if ineffective use prochlorperazine second and if ineffective use promethazine, PACU Recovery ondansetron (pf) (Zofran) (2 mg/mL) injection 4 Given 07/24/2021 5:52 AM EDT 4 mg mg 4 mg, Intravenous, EVERY 30 MIN PRN, 2 doses, Starting on Thu07/23/21 at 2055, Until Thu07/24/21 at 1301, Nausea, May repeat dose once in 30 minutes if no relief from previous dose. If multiple antiemetics are ordered, use ondansetron first, prochlorperazine second. Per ARCHITECTURAL DRAFTSPERSON order. oxyCODONE (Roxicodone) tablet 5 mg Given 07/25/2021 3:15 PM EDT 5 mg 5 mg, Oral, EVERY 4 HOURS PRN, Starting on Thu07/24/21 at 1301, Until Kiara 07/25/21 at 1920, Pain, for pain not relieved with tylenol and toradol, Routine polyethylene glycoL (Miralax) powder 17 g 17 g, Oral, DAILY PRN, Starting on Thu at 1145, Until Thu07/25/21 at 1920, Constipation, Routine potassium chloride 10 mEq in New Bag 2021 10:12 AM EDT 10 mE q 100 mL/hr sterile water 100 mL infusion 10 mEq, Intravenous, EVERY HOUR, 4 doses, First dose on Thu07/23/21 at 0700, Last dose on Thu07/23/21 at 1000, Administer over 60 Minutes, Warning Vesicant/Irritant Medication New Bag 2021 8:57 AM EDT 10 mEq 100 mL/hr New Bag 2021 6:36 AM EDT 10 mEq 100 mL/hr potassium chloride ER (K-Dur/Klor-Con) tablet Given 6:24 AM EDT 40 mEq 40 mEq 40 mEq, Oral, ONCE, 1 dose, On Thu07/23/21 at 0645, 20 mEq tablet may be dissolved in water for administration, Routine senna-docusate (Pericolace) 8.6-50 mg per Given 2021 8:44 AM EDT 2 tablets tablet 2 tablet 2 tablet, Oral, DAILY, First dose (after last modification) on Thu07/24/21 at 1230, Until Discontinued, Routine Given 07/24/2021 11:50 AM EDT 2 tablets sodium chloride 0.9 % (flush) (BD PosiFlush Given 07/25/2021 9:0 0 AM EDT 5 mLs Normal Saline 0.9) flush 5 mL 5 mL, Intravenous, 2 TIMES DAILY, First dose on Thu07/22/21 at 2100, Until Discontinued, Recovery (Recovery-Hospital Unit), Routine Given 07/24/2021 9:48 PM EDT 5 mLs Given 07/24/2021 9:00 AM EDT 5 mLs sodium chloride 0.9 % (flush) (BD PosiFl ush Normal Saline 0.9) flush 5-20 mL 5-20 mL, Intravenous, EVERY 1 MIN PRN, S tarting on Thu07/22/21 at 1503, Until Kiara 07/25/21 at 1920, flush, Flush pertains t o all indwelling lines. Flush per protocol found in the job aid using the link prov ided on this medication record., Recovery (Recovery-Hospital Unit), Routine documented in this encounter Active and Recently Administered Medications Times are shown in EDT. Scheduled Medication Order 2021 07/24/2021 07/25/2021 acetaminophen (Tylenol) tablet 1,000 mg 0000 (Not Give n - Provider: Afshan Gill RN - Reason: Patient/family refused)0623 (Given - Provider: Afshan Gill RN)1212 (Given - Provider: Tiana Gamez RN) 0525 (Given - Provider: Afshan Gill RN)1150 (Given - Provider: Tiana Gamez RN)1808 (Given - Provider: Tiana Gamez RN)2358 (Given - Provider: Kalee Simeon RN) 0618 (Given - Provider: Kalee Simeon RN)1200 (Not Given - Provider: Tiana Gamez RN - Reason: See comment - Comment: declines. Getting discharged) 1,000 mg, Oral, EVERY 6 HOURS SCHEDULED, First dose on Thu07/22/21 at 1800, Until Discontinued, Maximum dose of acetaminophen is 4000 mg from all sources in 24 hours. When ordered for pain, acetaminophen 1435 (MAR Hold - Provider: Admin Adt - Reason: Transfer to a Procedural area)1800 (Automatically Held - Provider: Admin Adt)2038 (MAR Unhold - Provider: Admin Adt)2358 (Given - Provider: Afshan Gill RN) should be given even when other ordered pain medications are indicated. , Routine atorvastatin (Lipitor) tablet 20 mg 1435 (MAY Hold - P rovider: Admin Adt - Reason: Transfer to a Procedural area)1700 (Automatically Held - Provider: Admin Adt)2038 (MAR Unhold - Provider: Admin Adt) 1653 (Given - Provider: Tiana Gamez RN) 1700 (Due - Provider: Admin Adt) 20 mg, Oral, EVERY EVENING, First dose o n Thu07/22/21 at 1700, Until Discontinued, Routine heparin (porcine) (5,000 units/1 mL) subcutaneous inje ction 5,000 Units 0625 (Given - Provider: Afshan Gill RN)1408 (Given - Provider: Tiana Gamez RN)1435 (MAY Hold - Provider: Admin Adt - Reason: Transfer to a Procedural area)2037 (MAY Unhold - Provider: Admin Adt) 0524 (Given - Provider: Afshan Gill RN)1400 (Given - Provider: Tiana Gamez RN)2155 (Given - Provider: Kalee Simeon, GENA) 0623 (Given - Provider: Kalee Simeon, GENA)1400 (Not Given - Provider: Tiana Gamez RN - Reason: Patient/family refused) 5,000 Units, Subcutaneous, EVERY 8 HOURS SCHEDULED, First dose on Thu07/22/21 at 1600, Until Discontinued, Routine 2117 (Given - Provider: Afshan Oneil RN) hydroCHLOROthiazide (Hydrodiuril) tablet 25 mg 0858 (G iven - Provider: Tiana Gamez RN)1435 (MAY Hold - Provider: Admin Adt - Reason: Transfer to a Procedural area)2037 (MAY Unhold - Provider: Admin Adt) 0909 (Given - Provider: Tiana Gamez RN) 0844 (Given - Provider: Tiana Gamez RN) 25 mg, Oral, DAILY, First dose on 01/04 at 0900, Until Discontinued, Routine ketorolac (Toradol) (15 mg/mL) injection 15 mg (CANCELED) 0522 (Given - Provider: Afshan Gill RN)1150 (Given - Provider: Tiana Gamez RN)1653 (Given - Provider: Tiana Gamez, GENA)1800 (Not Given - Provider: Tiana Gamez RN - Reason: See comment - Comment: given early) 0618 (Given - Provider: Kalee Simeon RN) 15 mg, Intravenous, EVERY 6 HOURS, 20 do ses, First dose on Thu07/24/21 at 0600, Last dose on Thu07/29/21 at 0000, Routine 2359 (Given - Provider: Kalee Simeon, GENA) lactated Ringers 1,000 mL IV bolus (COMPLETED) 1652 (New Bag - Provider: Tiana Gamez RN)1852 (Stopped - Provider: Tiana Gamez RN) at 500 mL/hr, Intravenous, ONCE, 1 dose, On Thu07/24/21 at 1730 lidocaine (Lidoderm) 5% patch 3 patch(Linked Group 1) 1435 (MAR Hold - Provider: Admin Adt - Reason: Transfer to a Procedural area)1600 (Automatically Held - Provider: Admin Adt)2037 (MAR Unhold - Provider: Admin Adt) 1653 (Patch Applied - Provider: Tiana Gamez RN) 1600 (Not Given - Provider: Tiana yost RN - Reason: See comment - Comment: pt being discharged) 3 patch, Transdermal, EVERY 24 HOURS, Fi rst dose on Thu07/22/21 at 1600, Until Discontinued, Apply patch(es) for 12 hours, and then remove for 12 hours., Routine lidocaine (Lidoderm) topical patch REMOVAL(Linked Grou p 1) 0315 (Patch Removed - Provider: Afshan Gill RN)1435 (MAR Hold - Provider: Admin Adt - Reason: Transfer to a Procedural area)2037 (MAY Unhold - Provider: Admin Adt) 0315 (Patch Removed - Provider: Afshan Gill RN) 0315 (Patch Removed - Provider: Kalee Simeon, GENA) Transdermal, EVERY 24 HOURS, First dose on Thu07/23/21 at 0315, Until Discontinued, Remove lidocaine 5% patch magnesium sulfate 2 g in sterile water 50 mL infusion (COMPLETED) 0625 (New Bag - Provider: Afshan Gill RN)0825 (Stopped - Provider: Tiana Gamez, GENA) 2 g, Intravenous, ONCE, 1 dose, On Thu at 0645, Administer over 120 Minutes nicotine (Nicoderm CQ) 14 mg/24 hr patch 14 mg(Linked Group 2) 0857 (Given - Provider: Tiana Gamez RN)143 (MAR Hold - Provider: Admin Adt - Reason: Transfer to a Procedural area)2037 (MAY Unhold - Provider: Admin Adt) 0900 (Not Given - Provider: Tiana Gamez RN - Reason: Patient/family refused) 0900 (Not Given - Provider: Tiana Gamez RN - Reason: Patient/family refused) 14 mg (1 patch), Transdermal, DAILY, Fir st dose (after last modification) on Thu07/22/21 at 1700, Until Discontinued, Apply new patch to nonhairy, clean, dry skin on the upper body or upper outer arm; ea ch patch should be applied to a different site , Routine nicotine (NICODERM CQ) 14 mg/24 hr patch Patch Removal (Linked Group 2) 0900 (Patch Not Removed (add comment) - Provider: Tiana Gamez RN - Comment: none put on)143 (MAY Hold - Provider: Admin Adt - Reason: Transfer to a Procedural area)2037 (MAY Unhold - Provider: Admin Adt) 0900 (Patch Not Removed (add comment) - Provider: Tiana Gamez RN - Comment: Pt refusedno patch) 09 (Patch Not Removed (add comment) - Provider: Tiana Gamez RN - Comment: no patch- refuses) Transdermal, DAILY, First dose (after la st modification) on Thu07/23/21 at 0900, Until Discontinued, Remove nicotine 14 mg/24 hr patch nicotine (NICODERM CQ) 14 mg/24 hr patch Patch Verific ation(Linked Group 2) 0415 (Patch Not Verified (add comment) - Provider: Afshan Gill RN - Comment: Refused quinn'ication)143 (MAY Hold - Provider: Admin Adt - Reason: Transfer to a Procedural area)2037 (MAY Unhold - Provider: Admin Adt) 0900 (Patch Not Verified (add comment) - Provider: Tiana Gamez RN - Comment: no patch- pt refuses)2100 (Patch (dose and location) verified - Provider: Kalee Simeon RN - Comment: no patch on, pt refused application) 0900 (Patch (dose and location) verified - Provider: Tiana Gamez RN) Transdermal, 2 TIMES DAILY, First dose ( after last modification) on Thu07/23/21 at 0415, Until Discontinued, Verify nicotine 14 mg/24 hr patch. 2100 (Patch Not Verified (add comment) - Provider: Afshan Gill RN - Comment: refused) potassium chloride 10 mEq in sterile water 100 mL infu nicolasa () 0636 (New Bag - Provider: Afshan Gill RN)0736 (Stopped - Provider: Tiana Gamez RN)0857 (New Bag - Provider: Tiana Gamez RN)0957 (Stopped - Provider: Tiana Gamez RN) 10 mEq, Intravenous, EVERY HOUR, 4 doses , First dose on Thu07/23/21 at 0700, Last dose on Thu07/23/21 at 1000, Administer over 60 Minutes, Warning Vesicant/Irritant Medication 1000 (Not Given - Provider: Tiana yost RN - Reason: See comment - Comment: duplicate scan)1012 (New Bag - Provider: Tiana Gamez RN)1112 (Stopped - Provider: Tiana Gamez RN) potassium chloride ER (K-Dur/Klor-Con) tablet 40 mEq ( COMPLETED) 0624 (Given - Provider: Afshan Gill RN) 40 mEq, Oral, ONCE, 1 dose, On Thu at 0645, 20 mEq tablet may be dissolved in water for administration, Routine senna-docusate (Pericolace) 8.6-50 mg per tablet 2 tablet 1150 (Given - Provider: Tiana Gamez RN) 0844 (Given - Provider: Tiana Gamez RN) 2 tablet, Oral, DAILY, First dose (after last modification) on Thu07/24/21 at 1230, Until Discontinued, Routine sodium chloride 0.9 % (flush) (BD PosiFlush Normal Harpal ine 0.9) flush 5 mL 0858 (Given - Provider: Tiana Gamez RN)2119 (Given - Provider: Afshan Oneil RN) 0900 (Given - Provider: Tiana Gamez RN)2148 (Given - Provider: Kalee Simeon RN) 0900 (Given - Provider: Tiana Gamez RN) 5 mL, Intravenous, 2 TIMES DAILY, First dose on Thu07/22/21 at 2100, Until Discontinued, Recovery (Recovery-Hospital Unit), Routine Continuous Medication Order 2021 07/24/2021 07/25/2021 HYDROmorphone (Dilaudid) (1 mg/mL) in so dium chloride 0.9% 50 mL ARCHITECTURAL DRAFTSPERSON infusion (CANCELED) 1815 (New Syringe/Cartridge - Provider: Mavis ferguson RN) 1301 (Stopped - Provider: Tiana Gamez RN) Intravenous, ARCHITECTURAL DRAFTSPERSON ONLY, Starting on Thu at 1815, Until Thu07/24/21 at 1301 lactated ringers infusion (CANCELED) 1435 (MAY Hold - Provider: Admin Adt - Reason: Transfer to a Procedural area)1924 (MAY Unhold - Provider: Paul Modi RN)1929 (New Bag - Provider: Paul Modi RN) 100 mL/hr, Intravenous, CONTINUOUS, Star ting on Thu07/23/21 at 0000, Until Thu07/23/21 at 2055 lactated ringers infusion (CANCELED) 2117 (Continued B ag - Provider: Afshan Gill RN) 0321 (New Bag - Provider: Kandi serna RN)1123 (New Bag - Provider: Tiana Gamez RN)1430 (Stopped - Provider: Tiana Gamez RN) 100 mL/hr, Intravenous, CONTINUOUS, Star ting on Thu07/23/21 at 2145, Until Thu07/24/21 at 1430 PRN Medication Order 2021 07/24/2021 07/25/2021 diphenhydrAMINE (Benadryl) (50 mg/mL) injection 25 mg (CANCE LED) 0535 (Given - Provider: Afshan Gill RN) 25 mg, Intravenous, EVERY 30 MIN PRN, 2 doses, Starting on Thu07/23/21 at 2055, Until Thu07/24/21 at 1301, Itching, May repeat dose in 30 minutes if pruritis not relieved. Per ARCHITECTURAL DRAFTSPERSON order., Routine ibuprofen (Advil) tablet 600 mg 600 mg, Oral, EVERY 6 HOURS PRN, Startin g on Thu07/25/21 at 0901, Until Thu07/25/21 at 1920, Pain, Administer orally with milk or food to minimize GI irritation. Maximum dose of 3,200 mg from all sources in 24 hours, Routine lidocaine (Xylocaine) 1% (10 mg/mL) injection 3 mg 3 mg (0.3 mL), Subcutaneous, ONCE PRN, 1 dose, Starting on 07/22/21 at 1503, Until Thu07/25/21 at 1920, for discomfort with PIV insertion, Recovery (Recovery-Hospital Unit), Routine ondansetron (pf) (Zofran) (2 mg/mL) injection 4 mg (CA NCELED) 1848 (Given - Provider: Mavis Poe, GENA) 4 mg, Intravenous, EVERY 30 MIN PRN, 2 d oses, Starting on Thu07/23/21 at 1749, Until Thu07/23/21 at 1927, Nausea, Maximum total dose of 8 mg (including OR administration). If multiple antiemetics orde red, use ondansetron first and if ineffe ctive use prochlorperazine second and if ineffective use promethazine, PACU Recovery ondansetron (pf) (Zofran) (2 mg/mL) injection 4 mg (CANCELED ) 0552 (Given - Provider: Afshan Gill RN) 4 mg, Intravenous, EVERY 30 MIN PRN, 2 d oses, Starting on Thu07/23/21 at 2055, Until Thu07/24/21 at 1301, Nausea, May repeat dose once in 30 minutes if no relief from previous dose. If multiple antie metics are ordered, use ondansetron firs t, prochlorperazine second. Per ARCHITECTURAL DRAFTSPERSON order. oxyCODONE (Roxicodone) tablet 5 mg 1515 (Given - Provider: Tiana Gamez RN) 5 mg, Oral, EVERY 4 HOURS PRN, Starting on Thu07/24/21 at 1301, Until Thu07/25/21 at 1920, Pain, for pain not relieved with tylenol and toradol, Routine polyethylene glycoL (Miralax) powder 17 g 17 g, Oral, DAILY PRN, Starting on Thu at 1145, Until Thu07/25/21 at 1920, Constipation, Routine sodium chloride 0.9 % (flush) (BD PosiFlush Normal Saline 0.9) f lush 5-20 mL 5-20 mL, Intravenous, EVERY 1 MIN PRN, S tarting on Thu07/22/21 at 1503, Until Kiara 07/25/21 at 1920, flush, Flush pertains to all indwelling lines. Flush per protocol found in the job aid using the link pr ovided on this medication record., Recovery (Rec[facility]-Hospital U nit), Routine Linked Groups Order Group 1: lidocaine (Lidoderm) 5% patch 3 patchJump to med 3 patch, Transdermal, EVERY 24 HOURS, Fi rst dose on Thu07/22/21 at 1600, Until Discontinued
Apply patch(es) for 12 hours, and then remove for 12 hours.
Routine And lidocaine (Lidoderm) topical patch REMOVALJump to med Transdermal, EVERY 24 HOURS, First dose on Thu07/23/21 at 0315, Until Discontinued
Remove lidocaine 5% patch
Group 2: nicotine (Nicoderm CQ) 14 mg/24 hr patch 14 mgJump to med 14 mg (1 patch), Transdermal, DAILY, Fir st dose (after last modification) on Thu07/22/21 at 1700, Until Discontinued
Apply new patch to nonhairy, clean, dry skin on the upper body or upper outer arm; each patch should be applied to a different site
Routine And nicotine (NICODERM CQ) 14 mg/24 hr patch Patch VerificationJump to med Transdermal, 2 TIMES DAILY, First dose ( after last modification) on Thu07/23/21 at 0415, Until Discontinued
Verify nicotine 14 mg/24 hr patch.
And nicotine (NICODERM CQ) 14 mg/24 hr patch Patch RemovalJump to med Transdermal, DAILY, First dose (after la st modification) on Thu07/23/21 at 0900, Until Discontinued
Remove nicotine 14 mg/24 hr patch
documented in this encounter Care Teams Data Coder Operator Relationship Specialty Start Date End Date Ally Ortiz APRN PCP - General Internal Medicine 04/24/21 [facility] [address] [place] [address] documented as of this encounter
--- OUTSIDE RECORDS SUMMARY | 2021-09-27 14:53 | XMS_ITS | Encounter Summary ---
:1960 Author Organization [facility] [address] Care Team Providers Name Role Phone Ally Ortiz APRN Primary Care Provider Reason for Visit Reason Comments Follow-up Consultation (Urgent) - Closed Specialty Diagnoses / Procedures Referred By Contact Refer red To Contact General Surgery Diagnoses S/P repair of ventral hernia Chronic abdominal pain Ally Ortiz APRN [facility] [id number] [place] [phone] Fax: Referral ID Status Reason Start Date Expiration Date Visits V isits Requested Authorized [id number] Closed Consult, Test 07/18/2021 07/18/2022 1 1 & Treat PCP Updated and/or Approved Encounter Details Date Type Department Care Team Description 07/22/2021 Office Visit General Surgery at [facility] [place] [facility] [place] [facility] [address], [place], [place] [phone] Social History Tobacco Use Types Packs/Day Years [...] Sign Reading Time Taken Comments Blood Pressure 160/77 07/22/2021 11:48 AM EDT Pulse 77 07/22/2021 11:48 AM EDT Temperature 36.5 ??C (97.7 ??F) 07/22/2021 11:48 AM EDT Respiratory Rate 18 07/22/2021 11:48 AM EDT Oxygen Saturation 100% 07/22/2021 11:48 AM EDT Inhaled Oxygen Concentration - - Weight 102.4 kg (225 lb 11.2 oz) 07/22/2021 11:48 AM EDT Height 152 cm (4' 11.84) 07/22/2021 11:48 AM EDT Body Mass Index 44.31 07/22/2021 11:48 AM EDT documented in this encounter Progress Notes Sajan Samayoa MD - 07/22/2021 11:00 AM EDT [facility] Department of General Surgery 07/22/2021 CC: Recurrent abdominal pain and hernia HPI: Jahaira Montgomery is a 60 y.o. female with history of current tobacco use, obesity, T2DM (A1c 7.1), chronic knee pain, diverticulitis s/p Lucy's (03/19/19 with reversal on 09/14/19) who was [place] [facility] [place] with concern for incarcerated ventral [...] pain left of midline. She went to [facility] and a CT A/P was obtained demonstrated [...] years ago from heat Past Surgical History: Past Surgical History: Procedure Laterality Date ??? COLON SURGERY 03/19/2019 Open Lucy's ??? HERNIA REPAIR open umbilical x2 ??? HYSTERECTOMY ??? PRO CLOSE ENTEROSTOMY, RESEC+COLOREC ANAS N/A 09/14/2019 @CLOSE ENTEROSTOMY, LG,SM INTESTINE, W\RESECT COLORECTAL ANAST. (WRVU 27.9) performed by Miryam Wiley MD at [facility] MAIN OR ??? PRO COLONOSCOPY, DIAGNOSTIC N/A 08/18/2019 COLONOSCOPY, DIAGNOSTIC performed by Emigdio Lanier MD at [facility] ENDOSCOPY ??? PRO CYSTOSCOPY, INSERT URETERAL STENT Right 09/14/2019 CYSTO, STENT PLACEMENT INTRAOP, TEMPORARY (WRVU 2.82) performed by Werner Fournier MD at [facility] MAIN OR ??? PRO EXPLORATORY OF ABDOMEN N/A 04/25/2020 @EXPLORATORY LAPAROTOMY, WITH/WITHOUT BIOPSY(S) (WRVU 12.54) performed by Jerod Frost MD at [facility] MAIN OR ??? PRO MOBILIZE SPLENIC FLEX N/A 09/14/2019 @MOBILIZATION OF SPLENIC FLEXURE (WRVU 2.23) performed by Miryam Wiley MD at [facility] MAIN OR ??? PRO OMENTAL FLAP, INTRA-ABDOMINAL 09/14/2019 @OMENTAL FLAP, INTRA-ABDOMINAL (WRVU 6.54) performed by Miryam Wiley MD at [facility] MAIN OR ??? PRO REPAIR RECURR INCIS HERNIA, DEONTE N/A 04/25/2020 HERNIA REPAIR, VENTRAL OR INCISIONAL, RECURRENT, INCARCERATED (WRVU 15.53) performed by Jerod Frost MD at [facility] MAIN OR ??? PRO REPAIR RECURR INCIS HERNIA, DEONTE Left 04/25/2021 HERNIA REPAIR, VENTRAL OR INCISIONAL, RECURRENT, INCARCERATED (WRVU 15.53) performed by Loco White MD at [facility] MAIN OR ??? PRO SIGMOIDOSCOPY, DIAGNOSTIC N/A 09/14/2019 SIGMOIDOSCOPY, FLEXIBLE W/WO SPECIMEN BY BRUSHING OR WASHING (WRVU 0.84) performed by Miryam Wiley MD at [facility] MAIN OR ??? TUBAL LIGATION Medications: No outpatient medications have been marked as taking for the 07/22/21 encounter (Office Visit) with [facility] MD. Allergies:No Known Allergies Family History: Family History Problem [...] file Housing Stability: Not on file ROS: Consistent with HPI and PMHx and was otherwise negative Physical Examination: Patient Vitals for the past 24 hrs: O2 Device 07/22/21 1500 RA Body mass index is 44.31 kg/m??. General: alert, no acute distress, pleasant and conversant Head: Atraumatic, non cyanotic Cardiac: Regular rate and rhythm Pulmonary: no increased work of breathing on room air Abdominal: soft, obese, midline incision well approximated, tenderness to palpation at lower midlineand to left of midline Neuro: grossly intact, follows commands, AAO x3. Extremities: reticular mottling of bilateral lower extremities (baseline per patient) Imaging: CT A/P 07/18/21 - Several areas of hernia recurrence, containing bowel, along the anterior abdominal wall Assessment: Jahaira Montgomery is a 60 y.o. female with history of current tobacco use, obesity, T2DM (A1c 7.1), chronic knee pain, diverticulitis s/p Lucy's (03/19/19 with reversal on 09/14/19) who was [place] [facility] [place] with concern for incarcerated ventral hernia s/p primary fascial repair on 04/25/21. She presents today in clinic with 2 weeks of worsening pain and evidence of hernia recurrence. Overall she is hemodynamically stable and non-toxic appearing and has no signs of obstruction. Plan: - She reports continued severe pain and was hesitant to go home. We had discussed scheduling a repair within the next week but, given this, she was directly admitted from clinic for pain control and operative exploration. [facility] MD 2021 2:24 PM documented in this encounter Plan of Treatment Upcoming Encounters Date Type Specialty Care Team Description 09/30/2021 Office Visit General Surgery Paloma Mota APRN [facility] [place], [place] [address] (Wo rk) 09/30/2021 Office Visit Infectious Diseases Werner Harrell MD [facility] [place], [place] [address] (Wo rk) documented as of this encounter Visit Diagnoses Diagnosis Recurrent incisional hernia with incarce ration Incisional hernia with obstruction documented in this encounter Care Teams Splitter Machine Relationship Specialty Start Date End Date Ally Ortiz APRN PCP - General Internal Medicine 04/24/21 [address] [place] [address] documented as of this encounter
--- OUTSIDE RECORDS SUMMARY | 2021-09-27 14:53 | XMS_ITS | Encounter Summary ---
:1960 [place] [address] Care Team Providers Name Role Phone Ally Ortiz APRN Primary Care Provider Reason for Visit Auth/Cert Specialty Diagnoses / Procedures Referred By Contact Refer red To Contact Diagnoses Recurrent abdominal hernia incarcerated hernia Procedures EMERGENCY IPI Referral ID Status Reason Start Date Expiration Date Visits Requ ested Visits Authorized [id number] 1 1 Encounter Details Date Type Department Care Team Description 2021 Surgery Main Operating Room Mal Helton MD HERNIA REPAIR, [facility] OR INCISIONAL, [facility] Dr MARVIN, INCARCERATED [place], [place] [address] [place] [address] [phone] Social History Tobacco Use Types Packs/Day Years [...] Sign Reading Time Taken Comments Blood Pressure 151/81 2021 11:44 AM EDT Pulse 77 07/22/2021 4:56 PM EDT Temperature 36.8 ??C (98.2 ??F) 2021 11:42 AM EDT Respiratory Rate 14 2021 11:42 AM EDT Oxygen Saturation 94% 2021 11:44 AM EDT Inhaled Oxygen Concentration - - Weight 102.4 kg (225 lb 11.2 oz) 07/22/2021 4:56 PM EDT Height 152 cm (4' 11.84) 07/22/2021 [...] in March 2019 who was [place] [facility] [facility] [place] with an incarcerated ventral hernia. [...] on 09/14/19) who was recently hospitalized [place] [facility] [place] [...] pain left of midline. She went to [facility] and a CT A/P was [...] PTT 34 -- Recent Labs 07/24/21 0521 07/23/2142807/22/21 1652 NA 134* 136 137 K 4.3 [...] Center 08/07/2021 1:00 PM Paloma Mota APRN [facility] [place] [facility] Outpatient Services/Studies: Referral to Home Health Referral Priority: Routine Referral Type: Home Health Care Referral Reason: Consult, Test & Treat Number of Visits Requested: 999 Special Instructions Given to Patient at Discharge:. An After Visit Summary was printed and given to the patient. Patient Instructions Discharge Instructions You were were admitted and treated for the following diagnosis: Andrea Mohan CALL YOUR PHYSICIAN IF: 1. You have [...] Center 08/07/2021 1:00 PM Paloma Mota APRN [facility] [place] Narcotics: You may be given a prescription [...] 1. You will have follow-up appointments at [facility] as indicated in the ???Future Appointments and [...] on the next business day. Please call [phone] if you do not hear from us by that time, as your timely follow-up is very important to us. Your care was managed by the Trauma and Acute Care Surgery Team at [facility]. If you have any questions or concerns, please feel free to contact us. Provider Contact Information: General Surgery: [facility] (after business hours): CC: Ventral Hernia Primary [...] Trauma and Acute Care Surgery Team at [facility]. If you have any questions or concerns, please feel free to contact us. Provider Contact Information: General Surgery Clinic: Nurses line for questions: [facility] [place]after business hours): CC: Ventral Hernia TAMMY Marx APRN Signed: Azar Soriano MD Department of Surgery 07/25/2021 Acute Care Surgery Pager [phone] documented in this encounter Discharge Instructions Discharge [...] Center 08/07/2021 1:00 PM Paloma Mota APRN [facility] [place] [facility] Narcotics: You may be given a prescription [...] 1. You will have follow-up appointments at [facility] as indicated in the ???Future Appointments and [...] on the next business day. Please call [phone] if you do not hear from us by that time, as your timely follow-up is very important to us. Your care was managed by the Trauma and Acute Care Surgery Team at [facility]. If you have any questions or concerns, please feel free to contact us. Provider Contact Information: General Surgery: [facility] (after business hours): CC: Ventral Hernia Primary [...] pt need to f-u with surgeon or RESIDENTIAL GREEN BUILDING DESIGNER (please indicate reason if attending provider): RESIDENTIAL GREEN BUILDING DESIGNER How soon should TACS f/u be? 2 [...] 27.9) performed by Miryam Wiley MD at [facility] OR ??? PRO COLONOSCOPY, DIAGNOSTIC N/A 08/18/2019 COLONOSCOPY, DIAGNOSTIC performed by Emigdio Lanier MD at [facility] ENDOSCOPY ??? PRO CYSTOSCOPY, INSERT URETERAL STENT Right 09/14/2019 CYSTO, STENT PLACEMENT INTRAOP, TEMPORARY (WRVU 2.82) performed by Werner Fournier MD at [facility] OR ??? PRO EXPLORATORY OF ABDOMEN N/A 04/25/2020 @EXPLORATORY LAPAROTOMY, WITH/WITHOUT BIOPSY(S) (WRVU 12.54) performed by Jerod Frost MD at [facility] OR ??? PRO IMPLANT MESH HERNIA REPAIR/DEBRIDEMENT CLOSURE N/A 2021 IMPLANT MESH FOR INCISIONAL OR VENTRAL HERNIA REPAIR (WRVU 4.88) performed by Iliana Helton MD at [facility] OR ??? PRO MOBILIZE SPLENIC FLEX N/A 09/14/2019 @MOBILIZATION OF SPLENIC FLEXURE (WRVU 2.23) performed by Miryam Wiley MD at [facility] OR ??? PRO OMENTAL FLAP, INTRA-ABDOMINAL 09/14/2019 @OMENTAL FLAP, INTRA-ABDOMINAL (WRVU 6.54) performed by Miryam Wiley MD at [facility] OR ??? PRO REPAIR RECURR INCIS HERNIA, DEONTE N/A 04/25/2020 HERNIA REPAIR, VENTRAL OR INCISIONAL, RECURRENT, INCARCERATED (WRVU 15.53) performed by Jerod Frost MD at [facility] MAIN OR ??? PRO REPAIR RECURR INCIS HERNIA, DEONTE Left 04/25/2021 HERNIA REPAIR, VENTRAL OR INCISIONAL, RECURRENT, INCARCERATED (WRVU 15.53) performed by Loco White MD at [facility] MAIN OR ??? PRO REPAIR RECURR INCIS HERNIA, DEONTE N/A 2021 HERNIA REPAIR, VENTRAL OR INCISIONAL, RECURRENT, INCARCERATED (WRVU 15.53) performed by Iliana Helton MD at [facility] MAIN OR ??? PRO SIGMOIDOSCOPY, DIAGNOSTIC N/A 09/14/2019 SIGMOIDOSCOPY, FLEXIBLE W/WO SPECIMEN BY BRUSHING OR WASHING (WRVU 0.84) performed by Miryam Wiley MD at [facility] MAIN OR ??? TUBAL LIGATION Social History: [...] in this evaluation. Time IN / OUT: 9162-9615 Total Minutes, Physical Therapy: 25 Billing Code: Swetha Lacy, PT Pager: [phone] Physical Therapy Inpatient Rehabilitation Department Elida Kapoor [...] 27.9) performed by Miryam Wiley MD at [facility] OR ??? PRO COLONOSCOPY, DIAGNOSTIC N/A 08/18/2019 COLONOSCOPY, DIAGNOSTIC performed by Emigdio Lanier MD at [facility] ENDOSCOPY ??? PRO CYSTOSCOPY, INSERT URETERAL STENT Right 09/14/2019 CYSTO, STENT PLACEMENT INTRAOP, TEMPORARY (WRVU 2.82) performed by Werner Fournier MD at [facility] OR ??? PRO EXPLORATORY OF ABDOMEN N/A 04/25/2020 @EXPLORATORY LAPAROTOMY, WITH/WITHOUT BIOPSY(S) (WRVU 12.54) performed by Jerod Frost MD at [facility] OR ??? PRO IMPLANT MESH HERNIA REPAIR/DEBRIDEMENT CLOSURE N/A 2021 IMPLANT MESH FOR INCISIONAL OR VENTRAL HERNIA REPAIR (WRVU 4.88) performed by Iliana Helton MD at [facility] OR ??? PRO MOBILIZE SPLENIC FLEX N/A 09/14/2019 @MOBILIZATION OF SPLENIC FLEXURE (WRVU 2.23) performed by Miryam Wiley MD at [facility] OR ??? PRO OMENTAL FLAP, INTRA-ABDOMINAL 09/14/2019 @OMENTAL FLAP, INTRA-ABDOMINAL (WRVU 6.54) performed by Miryam Wiley MD at [facility] OR ??? PRO REPAIR RECURR INCIS HERNIA, DEONTE N/A 04/25/2020 HERNIA REPAIR, VENTRAL OR INCISIONAL, RECURRENT, INCARCERATED (WRVU 15.53) performed by Jerod Frost MD at [facility] MAIN OR ??? PRO REPAIR RECURR INCIS HERNIA, DEONTE Left 04/25/2021 HERNIA REPAIR, VENTRAL OR INCISIONAL, RECURRENT, INCARCERATED (WRVU 15.53) performed by Loco Wihte MD at [facility] MAIN OR ??? PRO REPAIR RECURR INCIS HERNIA, DEONTE N/A 2021 HERNIA REPAIR, VENTRAL OR INCISIONAL, RECURRENT, INCARCERATED (WRVU 15.53) performed by Iliana Helton MD at [facility] MAIN OR ??? PRO SIGMOIDOSCOPY, DIAGNOSTIC N/A 09/14/2019 SIGMOIDOSCOPY, FLEXIBLE W/WO SPECIMEN BY BRUSHING OR WASHING (WRVU 0.84) performed by Miryam Wiley MD at [facility] MAIN OR ??? TUBAL LIGATION Social History: [...] & Perception: ?? WNL/WFL ?? 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 Diagnosis & [...] instrument andmeasurable assessment of functional outcome. Pager: [phone] Elida Kapoor OT 07/24/2021 Occupational Therapy Rehabilitation Department Willie Chandler MD - 07/24/2021 1:03 PM EDT [facility] Department of Acute CareSurgery Inpatient Progress Note Patient Name: Jahaira Montgomery Patient : 1960 Patient Patient Location: [address] [place] [address] Attending Surgeon: ILIANA HELTON ID: Jahaira Montgomery is a 61 y.o. female who is 1 Day Post-Op s/p ex lap with ventral hernia repair. 24 Hour Events / Subjective: - went to OR yesterday, had ex lap with ventral hernia repair with overlay mesh. - POC overnight normal - vasovagal episode this morning with nausea, resolved. - pain tolerated with MOLASSES PREPARER overnight, transitioned to oral oxycodone PRN today Vitals: Temp: [36 ??C (96.8 ??F)-36.8 ??C (98.2 ??F)] Heart Rate: [61-76] Resp: [8-18] BP: (103-157)/(56-94) SpO2: [93 %-99 %] Heart Rate from SpO2: [53 bpm-83 bpm] Wt & BMI By Encounter Date Flowsheet Row Admission (Current) from 07/22/[address] [place] [address] Most recent reading at 07/24/2021 3:08 AM Office Visit from 07/22/2021 in General Surgery [place] [facility] Most recent reading at 07/22/2021 11:48 AM [...] I/O: I/O last 3 completed shifts: In: 2153 [I.V.:2153] Out: 960 [Urine:810; Other:100; Blood:50] Labs: Recent [...] PCR Not Detected Not Detected SARS-CoV-2 Source RESIDENTIAL GREEN BUILDING DESIGNER Swab Prothrombin Time Result Value Ref Range [...] Value Ref Range T&S only valid at [facility] Hosp Abscess/Wound Aspirate Culture Specimen: Abdomen; Deep [...] MD 07/24/2021 Acute Care Surgery Service Pager [phone] Caroline Navarro MD - 2021 8:00 PM [...] Intake/Output Summary (Last 24 hours) at 2021 194 Last data filed at 2021 1735 Gross [...] repair, recovering well postoperatively 1. Pain control: MOLASSES PREPARER 2. Continue mIVF 3. Diet: CLD 4. DVT prophylaxis- SCDs, SQH 5. Other: abdominal binder Caroline Navarro MD Acute Care Surgery Pager [phone] Mavis Poe RN - 2021 6:25 PM EDT 1745: VSS. Abd binder in place over Prevena drain. Bilat GEE drains intact. Resting quietly, appears comfortable. 1830: MOLASSES PREPARER set up, attempted education with patient, however [...] March 2019 who was recently [place] [facility] [place]28[place] with an incarcerated ventral [...] Gerardo Treviño MD 2021 General Surgery Pager [phone] Mavis Wayne RN - 07/22/2021 8:05 PM EDT Pt arrived @ 1655, from vascular clinic. VSS, A+Ox4. Pt admitted for ventral hernia repair. Pt reporting 10 RLQ abd pain with movement, but no [...] midnight for OR tomorrow. Pt admitted to [facility] w/ call glover in reach. documented in this encounter H&P Notes Sajan Samayoa MD - 07/22/2021 3:09 PM EDT Images from the original note were not included. [facility] Department of General Surgery Admission History and Physical History of Present Illness: Jahaira Montgomery is a 60 y.o. female with history of current tobacco use, obesity, T2DM (A1c 7.1), chronic knee pain, diverticulitis s/p Lucy's (03/19/19 with reversal on 09/14/19) who was recently [place] [facility] [place] [...] pain left of midline. She went to [facility] and a CT A/P was [...] 27.9) performed by Miryam Wiley MD at [facility] MAIN OR ??? PRO COLONOSCOPY, DIAGNOSTIC N/A 08/18/2019 COLONOSCOPY, DIAGNOSTIC performed by Emigdio Lanier MD at [facility] ENDOSCOPY ??? PRO CYSTOSCOPY, INSERT URETERAL STENT Right 09/14/2019 CYSTO, STENT PLACEMENT INTRAOP, TEMPORARY (WRVU 2.82) performed by Werner Fournier MD at [facility] OR ??? PRO EXPLORATORY OF ABDOMEN N/A 04/25/2020 @EXPLORATORY LAPAROTOMY, WITH/WITHOUT BIOPSY(S) (WRVU 12.54) performed by Jerod Frost MD at [facility] MAIN OR ??? PRO MOBILIZE SPLENIC FLEX N/A 09/14/2019 @MOBILIZATION OF SPLENIC FLEXURE (WRVU 2.23) performed by Miryam Wiley MD at [facility] OR ??? PRO OMENTAL FLAP, INTRA-ABDOMINAL 09/14/2019 @OMENTAL FLAP, INTRA-ABDOMINAL (WRVU 6.54) performed by Miryam Wiley MD at [facility] OR ??? PRO REPAIR RECURR INCIS HERNIA, DEONTE N/A 04/25/2020 HERNIA REPAIR, VENTRAL OR INCISIONAL, RECURRENT, INCARCERATED (WRVU 15.53) performed by Jerod Frost MD at [facility] MAIN OR ??? PRO REPAIR RECURR INCIS HERNIA, DEONTE Left 04/25/2021 HERNIA REPAIR, VENTRAL OR INCISIONAL, RECURRENT, INCARCERATED (WRVU 15.53) performed by Loco White MD at [facility] MAIN OR ??? PRO SIGMOIDOSCOPY, DIAGNOSTIC N/A 09/14/2019 SIGMOIDOSCOPY, FLEXIBLE W/WO SPECIMEN BY BRUSHING OR WASHING (WRVU 0.84) performed by Miryam Wiley MD at [facility] MAIN OR ??? TUBAL LIGATION Medications No [...] extremities (baseline per patient) Labs: Recent Labs 04/28/2122304/27/212 04/26/21 0158 WBC 12.3* 14.3* 12.2* HGB [...] 00:00 Attached To: Scan Doc: Ct Scan [[id number]] scans only on 07/18/21 with Unknown Source Information Unknown Impression: Jahaira Montgomery is a 60 y.o. female with history of current tobacco use, obesity, T2DM (A1c7.1), chronic knee pain, diverticulitis s/p Lucy's (03/19/19 with reversal on 09/14/19) who was recently [place] [facility] [place] [...] Samayoa MD 07/22/2021 General Surgery Consult Pager [phone] documented in this encounter Miscellaneous Notes Plan [...] Agency Referrals & Follow-up Care: Referral to [facility] and orders pended for half-way and evaluation for need of HEATER PLANER OPERATOR Transportation: family or friend will provide Functional [...] are in agreement with plan. Mira Goldstein [facility] [phone] Care Management - Mira Goldstein RN - [...] discuss discharge planning needs. ?? provide the [facility], Office of Care Management letter from the Education Courses Sales Representative pertaining to rehab referrals. ?? provide a letter describing our affiliations within the [facility] and educate about their right to choose where referrals are sent. ?? provide a list of Home Health Agencies / Durable Medical Equipment vendors which serve their preferred geographic area. ?? provided patient with [facility] Star Quality Rating handout. They have requested referrals to: [facility] [address] [place] [id number] Note routed to a Spine Nurse who will communicate referrals to facilities and [...] Anticipated Date of Discharge: 07/25/2021 Mira Goldstein CMRN [phone] Plan of Care - Kalee Simeon RN [...] had hernia repair surgery yesterday. On dilaudid MOLASSES PREPARER Subjective: Patient difficult to arouse at first. [...] ??? ketorolac 15 mg Intravenous Q6H ??? MOLASSES PREPARER shift total and Settings verification Intravenous 2 Times Daily- MOLASSES PREPARER Shift Total ??? sodium chloride 0.9 % [...] zofran. Per staff she is on dilaudid MOLASSES PREPARER, no continuous rate. She had received some IV Toradol to which she then developed nausea and increased temperature. 25 mg of IV benadryl administered after Toradol was given. Patient alert and oriented x4 but lethargic. Frequently falling asleep during my assessment. HR as low as mid 40's. BP stable with MAPs in the 90's. Dilaudid MOLASSES PREPARER turned off. Plan: oxygen, jan monitor Remain on Floor Please page #[phone] with any questions/concerns. Thank you! Mahsa Nava RN 6:07 AM July 24, 2021 Plan of Care - Afshan Gill RN - 07/24/2021 2:52 AM EDT OUTCOME EVALUATION NOTE: OUTCOME SUMMARY: 2037-Transferred from PACU post Hernia repair, denies pain nor nausea at the moment. Midline abdominal incision with prevena vac and with binder on. 2 JPs with minimal drainage small amount of sanguinous drainage. Instructed with MOLASSES PREPARER use. Slept in between care. 0522-Given scheduled Toradol, patient complained of feeling hot and can't see and she tried to blinked and after a few minutes she said she can see but complaining of nausea.. Blood sugar check 188. Some episode of staring blankly in space. 0535-Given Benadryl 25 mg thinking of some allergic reaction.Called [employer] and cfo controller. They came to see patient. Jahaira was able to answer orientation questions. 0552-Given Zofran for nausea and monitored closely. MOLASSES PREPARER pump set aside for now. Pain button [...] Operative Note Patient Name: Jahaira Montgomery : [id number] MR#: [id number] Case Date: 2021 Surgeon: Surgeon(s) and Role: * Iliana Helton MD - Primary * Lisandro Treviño MD - Resident * Gerardo Trevioñ MD - Resident Preoperative diagnosis: recurrent ventral [...] Products) Urine Output: 60 mL Drains: 15 salvadorean Bard round drains x 1 in the [...] Treviño MD - 2021 5:20 PM EDT [facility] Oper[place] Note Patient Name: Jahaira Montgomery : [id number] MR#: [id number] Case Date: 2021 Surgeon: Surgeon(s) and Role: [...] surgery: Abdominal wall fluid culture Drains: 15 salvadorean bard round drain x 2 (right and [...] March 2019 who was recently [place] [facility] [place]28[place] with an incarcerated ventral hernia. [...] 0 PDSmet in the middle. Defect was 13g33ft. Next, a 38d03js ovitex onlay PDS mesh was secured circumferentially with anterior sheath 0 PDS sutures and then trimmed to size. Two 15 salvadorean Bard round drains were placed in the [...] Component Value Date COVID19 Not Detected 04/27/2021 [id number] Not Detected 07/22/2021 Present on Admission: ??? Recurrent abdominal hernia Hospitalizations Within the Past 30 Days: no previous admission in last 30 days Patient receiving hospital care under Inpatient status. Admission order reviewed. Primary Insurance on file: MEDICAID [place] Secondary Insurance on file: n/a Primary care provider on file: Ally Ortiz, CERT PHARMACY TECH [phone] Pharmacy: [id number] - [address] [address] Advance Care Planning: Attempt Cardiopulmonary Resuscitation - Inpatient <no information> -Advanced Directive: No, declines 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 Functional Status Prior to Admission: Independent Home Environment: Others in the home: sibling(s). Current Living Arrangements: home/apartment/condo. Current DME: none [address] [facility] [address] Social & Family Supports: Extended Emergency Contact [...] via family when medically ready. Registered Nurse Interstate Bus Driver / [employer] Reading Teacher will continue to follow patient???s progress and [...] 09/30/2021 Office Visit General Surgery Paloma Mota, CERT PHARMACY TECH [facility] GENERAL SURGERY [place], [place] [address] (Wo rk) 09/30/2021 Office Visit Infectious Diseases Werner Harrell MD [facility] INFECTIOUS [place], [place] [address] (Wo rk) Scheduled Referrals Name [...] 188 65 - 199 [place]AVE[place] mg/dL [facility] Comment: Supplemental ranges: <140 mg/dL before meals <180 mg/dL all other times of the day Specimen Anatomical Collection Method Collection Time Receive d Time (Source) Location / / Volume Laterality Blood 07/24/2021 5:33 AM 2 5:33 EDT AM EDT Iliana Helton MD POINT OF CARE TEST ORDERABLE S Performing Organization Address City/[facility]/ZIP Code Phon e Number [address] Phosphorus (07/24/2021 5:21 AM EDT) athologist Signature Phosphorus 3.2 2.5 - 4.5 [place] mg/dL [facility] Specimen Anatomical Collection Method Collection Time Receive d Time (Source) Location / / Volume Laterality Blood 07/24/2021 5:21 AM 2 5:30 EDT AM EDT Resulting Agency Comment Spec In Lab Iliana Helton MD CHEMISTRY ORDERABLES Performing Organization Address City/State/[place]IP [place] [address] Magnesium (07/24/2021 5:21 AM EDT) athologist Signature Magnesium 0.93 0.69 - 1.07 [facility] NAVEEN mmol/L [facility] Specimen Anatomical Collection Method Collection Time Receive d Time (Source) Location / / Volume Laterality Blood 07/24/2021 5:21 AM 2 5:30 EDT AM EDT Resulting Agency Comment Spec In Lab Iliana Helton MD CHEMISTRY ORDERABLES Performing Organization Address City/State/[place] [address] (ABNORMAL) Basic Metabolic Panel (non-fasting) (07/24/2021 5:21 AM EDT) P athologist Signature Glucose Lvl 175 65 - 199 [facility] mg/dL [facility] Comment: Diabetes: >=200 mg/dL plus symp toms BUN 17 8 - 18 mg/dL [facility] Creatinine 0.65 (L) 0.70 - 1.20 mg/dL [facility] Sodium 134 (L) 135 - 145 mmol/L [facility] Potassium 4.3 3.5 - 5.0 mmol/L [facility] Comment: result rechecked-gh Please note: ??Patients with WBC >100,00 0 may have falsely elevated Potassium levels. ??For accurate Potassium quantif ication in these patients send serum separator tube (gold top) for subsequent determinations. ??Contact the Clinical Chemistry Laboratory if there are any qu estions. Chloride 99 98 - 107 mmol/L [facility] CO2 22 22 - 31 mmol/L [facility] Anion Gap 13 5 - 15 mmol/L [facility] Calcium 8.9 8.5 - 10.5 mg/dL [facility] Estimated GFR 97 >=60 mL/min/1.73 m?? [facility] [...] Helton MD CHEMISTRY ORDERABLES Performing Organization Address City/[facility]/ZIP Code Phon e Number [address] POCT Glucose (2021 5:40 PM EDT) P athologist Signature POC Glucose 181 65 - 199 [facility] mg/dL [facility] Comment: Supplemental ranges: <140 mg/dL before meals <180 mg/dL all other times of the day Specimen Anatomical Collection Method Collection Time Receive d Time (Source) Location / / Volume Laterality Blood 2021 5:40 PM 2 5:40 EDT PM EDT Iliana Helton MD POINT OF CARE TEST ORDERABLE S Performing Organization Address City/[facility]/[place]IP [place] [address] Anaerobic Culture (2021 3:37 PM EDT) [facility] Method Time Signature Anaerobic No anaerobic [facility] organisms [facility] LABORATORY Specimen Anatomical Collection Method Collection Time Receive d Time (Source) Location / / Volume Laterality Deep Wound ABDOMEN / Unknown 2021 3:37 PM 07/14 4:00 EDT PM EDT Comment: Midline Abdominal wound - cultu re Resulting Agency Comment Spec In Lab Lisandro Treviño MD MICROBIOLOGY - GENERAL ORDER ARLEY Performing Organization Address City/[facility]/ZIP Code Phon e Number [address] Abscess/Wound Aspirate Culture (2021 3:37 PM EDT) Component Value Ref Test Analysis Performed At [facility] gist Range Method Time Signature Abscess/Wound Normal cutaneous tania isolated from broth culture. OLGA Aspirate No growth on original plates. [facility] LABORATORY Gram Stain Few Neutrophils seen OLGA No microorganisms seen. [facility] LABORATORY Specimen Anatomical Collection Method Collection Time Receive d Time (Source) Location / / Volume Laterality Deep Wound ABDOMEN / Unknown 2021 3:37 PM 07/14 4:00 EDT PM EDT Comment: Midline Abdominal wound - cultu re Resulting Agency Comment Spec In Lab Lisandro Treviño MD MICROBIOLOGY - GENERAL ORDER ARLEY Performing Organization Address City/[facility]/[place]IP [place] [address] Type and Screen Validity (2021 4:29 AM EDT) [facility] Method Time Signature T&S only valid [facility] at [facility] LABORATORY Comment: This Type and Screen result is only valid at the [facility] Specimen Anatomical Collection Method Collection Time Receive d Time (Source) Location / / Volume Laterality Blood 2021 4:29 AM 2 4:58 EDT AM EDT Resulting Agency Comment Spec In Lab Willei Chandler MD BLOOD BANK ORDERABLES Performing Organization Address City/[facility]/ZIP Code Phon e Number [address] ABORH Recheck Status (2021 4:29 AM EDT) [facility] Method Time Signature ABORH Type Completed [facility] LABORATORY Specimen Anatomical Collection Method Collection Time Receive d Time (Source) Location / / Volume Laterality Blood 2021 4:29 AM 2 4:58 EDT AM EDT Resulting Agency Comment Spec In Lab Willie Chandler MD BLOOD BANK ORDERABLES Performing Organization Address City/[facility]/[place]IP [place] [address] Antibody screen (2021 4:29 AM EDT) [facility] Method Time Signature Ab Screen Negative [facility] LABORATORY Expires at 07/26/2021 OLGA HERNANDEZNAVEEN [id number] on: [facility] LABORATORY Specimen Anatomical Collection Method Collection Time Receive d Time (Source) Location / / Volume Laterality Blood 2021 4:29 AM 2 4:58 EDT AM EDT Resulting Agency Comment Spec In Lab Willie Chandler MD BLOOD BANK ORDERABLES Performing Organization Address City/State/ZIP Code Phon e Number [address] ABO/Rh Typing (2021 4:29 AM EDT) P athologist Signature ABORh Type O Pos [facility] LABORATORY Specimen Anatomical Collection Method Collection Time Receive d Time (Source) Location / / Volume Laterality Blood 2021 4:29 AM 2 4:58 EDT AM EDT Resulting Agency Comment Spec In Lab Willie Chandler MD BLOOD BANK ORDERABLES Performing Organization Address City/[facility]/ZIP Code Phon e Number [address] (ABNORMAL) Differential, Automated (2021 4:29 AM EDT) Patholo gist Method Time Signature Neutrophils % 56.0 % [facility] LABORATORY Neutr Abs (ANC) 6.73 (H) 1.70 - [facility] 6.10 [facility] x10(3)/[facility] LABORATORY Lymphocytes % 32.8 % [facility] LABORATORY Lymphocytes Abs 4.0 (H) 0.9 - 3.2 [facility] x10(3)/[facility] LABORATORY Monocytes % 6.0 % [facility] LABORATORY Monocyte Abs 0.7 0.3 - 0.9 [facility] x10(3)/[facility] LABORATORY Eosinophils % 4.0 % [facility] LABORATORY Eosinophils Abs 0.5 (H) 0.0 - 0.4 [facility] x10(3)/[facility] LABORATORY Basophils % 0.8 % [facility] LABORATORY Basophils Abs 0.1 0.0 - 0.1 [facility] x10(3)/[facility] LABORATORY Immature Gran % 0.40 % [facility] LABORATORY Comment: Immature granulocytes(IG's)percentage an d absolute count will include metamyelocytes, myelocytes, and promyelo cytes. Blood smears from CBCs yielding IG's will be scanned manually for concor danadrianna. If this scan disagrees with the automated IG or if promyelocytes are not ed, a manual differential will be performed. Shantell Gran Abs 0.05 (H) 0.00 - 0.04 x10(3)/[facility] LABORATORY Specimen Anatomical Collection Method Collection Time Receive d Time (Source) Location / / Volume Laterality Blood 2021 4:29 AM 4:49 EDT AM EDT Resulting Agency Comment Spec In Lab Willie Chandler MD HEMATOLOGY ORDERABLES Performing Organization Address City/State/[place] [address] (ABNORMAL) Hemogram (2021 4:29 AM EDT) Analysis Performed At Patho logist Time Signature WBC 12.0 (H) 4.0 - 9.5 [facility] x10(3)/[facility] LABORATORY RBC 4.61 4.00 - [facility] 5.21 [facility] x10(6)/[facility] LABORATORY Hemoglobin 13.8 11.7 - [facility] 15.5 g/dL [facility] LABORATORY Hematocrit 43.0 35.7 - [facility] 45.8 % [facility] LABORATORY MCV 93.3 82.6 - [facility] 94.4 [facility] LABORATORY MCH 29.9 27.1 - [facility] NAVEEN 32.0 pg [facility] LABORATORY MCHC 32.1 31.7 - [facility] 35.0 g/dL [facility] LABORATORY Platelets 349 145 - 357 [facility] x10(3)/[facility] LABORATORY RDWSD 43.9 37.0 - [facility] Affirm 46.0 [facility] LABORATORY RDWCV 13.0 11.5 - [facility] NAVEEN 14.1 % [facility] LABORATORY MPV 9.4 7.6 - 12.9 [facility] LABORATORY nRBC % Auto 0.0 % [facility] LABORATORY nRBC Abs Auto 0.000 0.000 - [facility] 0.000 [facility] x10(3)/[facility] LABORATORY Specimen Anatomical Collection Method Collection Time Receive d Time (Source) Location / / Volume Laterality Blood 2021 4:29 AM 2 4:49 EDT AM EDT Resulting Agency Comment Spec In Lab Willie Chandler MD HEMATOLOGY ORDERABLES Performing Organization Address City/[facility]/ZIP Code Phon e Number [address] Phosphorus (2021 4:29 AM EDT) P athologist Signature Phosphorus 3.8 2.5 - 4.5 [facility] LABORATORY Specimen Anatomical Collection Method Collection Time Receive d Time (Source) Location / / Volume Laterality Blood 2021 4:29 AM 2 4:49 EDT AM EDT Resulting Agency Comment Spec In Lab Iliana Helton MD CHEMISTRY ORDERABLES Performing Organization Address City/[facility]/ZIP [place] [address] Magnesium (2021 4:29 AM EDT) P athologist Signature Magnesium 0.81 0.69 - 1.07 [facility] mmol/L [facility] LABORATORY Specimen Anatomical Collection Method Collection Time Receive d Time (Source) Location / / Volume Laterality Blood 2021 4:29 AM 2 4:49 EDT AM EDT Resulting Agency Comment Spec In Lab Iliana Helton MD CHEMISTRY ORDERABLES Performing Organization Address City/[facility]/[place] [address] (ABNORMAL) Comprehensive metabolic panel (non-fasting) (2021 4:29 AM EDT) P athologist Signature Glucose Lvl 166 65 - 199 [facility] mg/dL [facility] LABORATORY Comment: Diabetes: >=200 mg/dL plus symp toms BUN 24 (H) 8 - 18 mg/dL [facility] LABORATORY Creatinine 0.69 (L) 0.70 - 1.20 mg/dL [facility] LABORATORY Sodium 136 135 - 145 mmol/L [facility] LABORATORY Potassium 3.0 (Critical) 3.5 - 5.0 mmol/L [facility] LABORATORY Comment: called by [facility]/read back by carolyn alonso/ 07-23-21 [id number] Please note: ??Patients with WBC >100,00 0 may have falsely elevated Potassium levels. ??For accurate Potassium quantif ication in these patients send serum separator tube (gold top) for subsequent determinations. ??Contact the Clinical Chemistry Laboratory if there are any qu estions. Chloride 98 98 - 107 mmol/L [facility] LABORATORY CO2 25 22 - 31 mmol/L [facility] LABORATORY Anion Gap 13 5 - 15 mmol/L [facility] LABORATORY Calcium 9.0 8.5 - 10.5 mg/dL [facility] LABORATORY Total Protein 6.6 6.1 - 8.0 g/dL [facility] LABORATORY Albumin 3.4 3.2 - 5.2 g/dL [facility] LABORATORY AST 15 0 - 30 unit/L [facility] LABORATORY ALT 11 0 - 30 unit/L [facility] LABORATORY Alk Phos 99 35 - 105 unit/L [facility] LABORATORY Total Bilirubin <0.2 (L) 0.2 - 1.3 mg/dL [facility] LABORATORY Estimated GFR 95 >=60 [...] Helton MD CHEMISTRY ORDERABLES Performing Organization Address City/[facility]/ZIP Code Phon e Number [address] APTT (2021 4:29 AM EDT) [...] Helton MD HEMATOLOGY ORDERABLES Performing Organization Address [facility]/ZIP [place] [address] Prothrombin Time (2021 4:29 AM EDT) P athologist Signature PT 11.6 9.4 - 12.5 [facility] LABORATORY INR 1.0 [facility] [...] Helton MD HEMATOLOGY ORDERABLES Performing Organization Address City/[facility]/[place]IP [place] [address] COVID-19 PCR (07/22/2021 7:21 PM EDT) [facility] Method Time Signature SARS-CoV-2 Not Detected Not Detected OLGA RNA PCR [facility] LABORATORY [...] using the Simplexa COVID-19 Direct Assay by ModusP as authorized by the FDA issued Emergency Use Authorization (EUA). This assay is intended for In-vitro Diagnostic (IVD) use with nasopharyngeal swabs collected from individuals meeting the [facility] criteria for testing. e assay is performed [...] fact sheets at the following FDA website: https://www.fda.gov/medical-devices/zyuhpmmpecl-duuvrmj-1741-rnftw-94-cxsyjlmon- fbo-yxptlmevfdiple-feegwiz-devices/vzlxd-xmusxivwzos-uskm SARS-CoV-2 Source [employer] Swab [facility] LABORATORY Specimen (Source) Anatomical Collection Method Collection Time Re ceived Time Location / / Volume Laterality Nasopharyngeal Swab 07/22/2021 7:21 07/22 PM EDT 8:21 PM EDT Comment: Symptoms->Surveillance Resulting Agency Comment Spec In Lab Iliana Helton MD MICROBIOLOGY - GENERAL ORDER AR[place] Performing Organization Address City/[facility]/[place] [address] Scan, Peripheral Blood (07/22/2021 4:52 PM EDT) CheckiO Method Time Signature Plat Estimate Increased [facility] LABORATORY RBC Morphology Normal [facility] LABORATORY Specimen Anatomical Collection Method Collection Time Receive d Time (Source) Location / / Volume Laterality Blood 07/22/2021 4:52 PM 5:07 EDT PM EDT Resulting Agency Comment Spec In Lab Sajan Samayoa MD HEMATOLOGY ORDERABLES Performing Organization Address City/[facility]/Z[place] [address] (ABNORMAL) Differential, Automated (07/22/2021 4:52 PM EDT) CheckiO Method Time Signature Neutrophils % 55.4 % [facility] LABORATORY Neutr Abs (ANC) 8.01 (H) 1.70 - [facility] 6.10 [facility] x10(3)/[facility] LABORATORY Lymphocytes % 33.9 % [facility] LABORATORY Lymphocytes Abs 4.9 (H) 0.9 - 3.2 [facility] x10(3)/[facility] LABORATORY Monocytes % 5.5 % [facility] LABORATORY Monocyte Abs 0.8 0.3 - 0.9 [facility] x10(3)/[facility] LABORATORY Eosinophils % 3.7 % [facility] LABORATORY Eosinophils Abs 0.5 (H) 0.0 - 0.4 [facility] x10(3)/[facility] LABORATORY Basophils % 0.9 % [facility] LABORATORY Basophils Abs 0.1 0.0 - 0.1 [facility] x10(3)/[facility] LABORATORY Immature Gran % 0.60 % [facility] LABORATORY Comment: Immature granulocytes(IG's)percentage an d absolute count will include metamyelocytes, myelocytes, and promyelo cytes. Blood smears from CBCs yielding IG's will be scanned manually for concor dance. If this scan disagrees with the automated IG or if promyelocytes are not ed, a manual differential will be performed. Shantell Gran Abs 0.08 (H) 0.00 - 0.04 x10(3)/[facility] LABORATORY Specimen Anatomical Collection Method Collection Time Receive d Time (Source) Location / / Volume Laterality Blood 07/22/2021 4:52 PM 2 5:07 EDT PM EDT Resulting Agency Comment Spec In Lab Sajan Samayoa MD HEMATOLOGY ORDERABLES Performing Organization Address City/State/[place] [address] (ABNORMAL) Hemogram (07/22/2021 4:52 PM EDT) Analysis Performed At Patho logist Time Signature WBC 14.4 (H) 4.0 - 9.5 [facility] x10(3)/[facility] LABORATORY RBC 5.08 4.00 - [facility] 5.21 [facility] x10(6)/[facility] LABORATORY Hemoglobin 15.1 11.7 - [facility] 15.5 g/dL [facility] LABORATORY Hematocrit 46.5 (H) 35.7 - [facility] 45.8 % [facility] MCV 91.5 82.6 - [facility] 94.4 fL [facility] LABORATORY MCH 29.7 27.1 - [facility] 32.0 pg [facility] LABORATORY MCHC 32.5 31.7 - [place] HODGE 35.0 g/dL [facility] LABORATORY Platelets 431 (H) 145 - 357 [facility] x10(3)/[facility] LABORATORY RDWSD 43.0 37.0 - [place] HODGE 46.0 [facility] LABORATORY RDWCV 12.7 11.5 - [facility] 14.1 % [facility] LABORATORY MPV 9.4 7.6 - 12.9 [facility] nRBC % Auto 0.0 % [facility] LABORATORY nRBC Abs Auto 0.000 0.000 - [place] HERNANDEZNAVEEN 0.000 [facility] x10(3)/[facility] LABORATORY Specimen Anatomical Collection Method Collection Time Receive d Time (Source) Location / / Volume Laterality Blood 07/22/2021 4:52 PM 2 5:07 EDT PM EDT Resulting Agency Comment Spec In Lab Sajan Samayoa MD HEMATOLOGY ORDERABLES Performing Organization Address City/[facility]/ZIP Code Phon e Number [address] Phosphorus (07/22/2021 4:52 PM EDT) P athologist Signature Phosphorus 3.4 2.5 - 4.5 [place] SHANNONCOCK mg/dL [facility] LABORATORY Specimen Anatomical Collection Method Collection Time Receive d Time (Source) Location / / Volume Laterality Blood 07/22/2021 4:52 PM 2 5:07 EDT PM EDT Resulting Agency Comment Spec In Lab Iliana Helton MD CHEMISTRY ORDERABLES Performing Organization Address City/State/ZIP Code Phon e Number [address] Magnesium (07/22/2021 4:52 PM EDT) P athologist Signature Magnesium 0.84 0.69 - 1.07 [place] HERNANDEZNAVEEN mmol/L [facility] LABORATORY Specimen Anatomical Collection Method Collection Time Receive d Time (Source) Location / / Volume Laterality Blood 07/22/2021 4:52 PM 2 5:07 EDT PM EDT Resulting Agency Comment Spec In Lab Iliana Helton MD CHEMISTRY ORDERABLES Performing Organization Address City/State/[place] [address] (ABNORMAL) Basic Metabolic Panel (non-fasting) (07/22/2021 4:52 PM EDT) P athologist Signature Glucose Lvl 158 65 - 199 [facility] mg/dL [facility] LABORATORY Comment: Diabetes: >=200 mg/dL plus symp toms BUN 20 (H) 8 - 18 mg/dL [facility] LABORATORY Creatinine 0.76 0.70 - 1.20 mg/dL [facility] LABORATORY Sodium 137 135 - 145 mmol/L [facility] LABORATORY Potassium 3.2 (L) 3.5 - 5.0 mmol/L [facility] LABORATORY Comment: Please note: ??Patients with WBC >100,00 0 may have falsely elevated Potassium levels. ??For accurate Potassium quantif ication in these patients send serum separator tube (gold top) for subsequent determinations. ??Contact the Clinical Chemistry Laboratory if there are any qu estions. Chloride 96 (L) 98 - 107 mmol/L [facility] LABORATORY CO2 26 22 - 31 mmol/L [facility] LABORATORY Anion Gap 15 5 - 15 mmol/L [facility] LABORATORY Calcium 9.8 8.5 - 10.5 mg/dL [facility] LABORATORY Estimated GFR 86 >=60 mL/min/1.73 m?? [facility] [...] Address City/State/ZIP Code [place] [address] documented in this encounter Visit Diagnoses Not on filedocumented in this encounter Admitting Diagnoses Diagnosis Recurrent [...] Given 07/22/2021 5:05 PM EDT 20 mg heparin (porcine) (5,000 units/1 mL) Given 07/25/2021 [...] Given 2021 8:58 AM EDT 25 mg ibuprofen (Advil) tablet 600 mg 600 mg, Oral, EVERY 6 HOURS PRN, Startin g on Thu07/25/21 at 0901, Until Thu07/25/21 at 1920, Pain, Administer orally with milk or food to minimize GI irritation. Maximum dose of 3,200 mg from all sources in 24 hours, Routine lidocaine (Lidoderm) 5% Patch Applied 07/24/2021 4:53 [...] Startin g on Thu07/22/21 at 1503, Until Thu07/25/21 at 1920, for discomfort with PIV ins ertion, Recovery (Recovery-Hospital Unit), Routine nicotine (Nicoderm CQ) 14 Given 2021 8:57 [...] Discontinued, Verify nicotine 14 mg/24 hr patch. oxyCODONE (Roxicodone) tablet 5 mg Given 07/25/2021 3:15 PM EDT 5 mg 5 mg, Oral, EVERY 4 HOURS PRN, Starting on Thu07/24/21 at 1301, Until Thu07/25/21 at 1920, Pain, for pain not relieved with tylenol and toradol, Routine polyethylene glycoL (Miralax) powder 17 g 17 g, Oral, DAILY PRN, Starting on Thu at 1145, Until Thu07/25/21 at 1920, Constipation, Routine senna-docusate (Pericolace) 8.6-50 mg per Given [...] S tarting on Thu07/22/21 at 1503, Until Thu07/25/21 at 1920, flush, Flush pertains t o [...] hours. When ordered for pain, acetaminophen 1435 (MAY Hold - Provider: Admin Adt - Reason: Transfer to a Procedural area)1800 (Automatically Held - Provider: Admin Adt)2038 (MAY Unhold - Provider: Admin Adt)2358 (Given - [...] Adt - Reason: Transfer to a Procedural area)2038 (MAR Unhold - Provider: Admin Adt) 0524 (Given - Provider: Afshan Gill RN)1400 (Given - Provider: Tiana Gamez RN)2155 (Given - Provider: Kalee Simeon RN) 0623 (Given - Provider: Kalee Simeon RN)1400 (Not Given - Provider: Tiana Gamez, GENA - Reason: Patient/family refused) 5,000 Units, Subcutaneous, EVERY 8 HOURS SCHEDULED, First dose on Thu07/22/21 at 1600, Until Discontinued, Routine 2118 (Given - Provider: Afshan Oneil RN) hydroCHLOROthiazide (Hydrodiuril) tablet 25 mg 0858 (G iven - Provider: Tiana Gamez RN)1435 (MAY Hold - Provider: Admin Adt - Reason: Transfer to a Procedural area)2037 (MAY Unhold - Provider: Admin Adt) 0909 (Given - Provider: Tiana Gamez, GENA) 0844 (Given - Provider: Tiana Gamez, GENA) 25 mg, Oral, DAILY, First dose on 01/04 at 0900, Until Discontinued, Routine ketorolac (Toradol) (15 mg/mL) injection 15 mg (CANCELED) 0522 (Given - Provider: Afshan Gill RN)1150 (Given - Provider: Tiana Gamez, GENA)1653 (Given - Provider: Tiana Gamez, GENA)1800 (Not Given - Provider: Tiana Gaemz RN - Reason: See comment - Comment: given early) 0618 (Given - Provider: Kalee Simeon RN) 15 mg, Intravenous, EVERY 6 HOURS, 20 do ses, First dose on Thu07/24/21 at 0600, Last dose on Thu07/29/21 at 0000, Routine 2359 (Given - Provider: Kalee Simeon RN) lactated Ringers 1,000 mL IV bolus (COMPLETED) 1652 (New Bag - Provider: Tiana Gamez, GENA)1852 (Stopped - Provider: Tiana Gamez RN) at 500 mL/hr, Intravenous, ONCE, 1 dose, On Thu07/24/21 at 1730 lidocaine (Lidoderm) 5% patch 3 patch(Linked Group 1) 1435 (MAY Hold - Provider: Admin Adt - Reason: Transfer to a Procedural area)1600 (Automatically Held - Provider: Admin Adt)203 (MAY Unhold - Provider: Admin Adt) 1653 (Patch [...] (Patch Removed - Provider: Afshan Gill RN)1435 (MAY Hold - Provider: Admin Adt - Reason: Transfer to a Procedural area)2037 (MAY Unhold - Provider: Admin Adt) 0315 (Patch Removed - Provider: Afshan Gill RN) 0315 (Patch Removed - Provider: Kalee Simeon RN) Transdermal, EVERY 24 HOURS, First dose on Thu07/23/21 at 0315, Until Discontinued, Remove lidocaine 5% patch magnesium sulfate 2 g in sterile water 50 mL infusion (COMPLETED) 0625 (New Bag - Provider: Afshan Gill RN)0825 (Stopped - Provider: Tiana Gamez RN) 2 g, Intravenous, ONCE, 1 dose, On Thu at 0645, Administer over 120 Minutes nicotine (Nicoderm CQ) 14 mg/24 hr patch 14 mg(Linked Group 2) 0857 (Given - Provider: Tiana Gamez RN)143 (MAY Hold - Provider: Admin Adt - [...] Gamez RN - Comment: Pt refusedno patch) 0900 (Patch Not Removed (add comment) - [...] Gamez RN)0857 (New Bag - Provider: Tiana Gamez, GENA)0957 (Stopped - Provider: Tiana Gamez, GENA) 10 mEq, Intravenous, EVERY HOUR, 4 doses [...] in so dium chloride 0.9% 50 mL [employer] infusion (CANCELED) 1815 (New Syringe/Cartridge - Provider: Mavis ferguson RN) 1301 (Stopped - Provider: Tiana Gamez RN) Intravenous, [employer] ONLY, Starting on Thu at 1815, Until Thu07/24/21 at 1301 lactated ringers infusion (CANCELED) 1435 (MAR Hold - Provider: Admin Adt - Reason: Transfer to a Procedural area)1923 (MAY Unhold - Provider: Paul Modi, GENA)192 (New Bag - Provider: Paul Modi RN) 100 mL/hr, Intravenous, CONTINUOUS, Star ting on Thu07/23/21 at 0000, Until Thu07/23/21 at 2055 lactated ringers infusion (CANCELED) 2118 (Continued B ag - Provider: Afshan Gill RN) 0321 (New Bag - Provider: Kandi serna RN)1123 (New Bag - Provider: Tiana Gamez, GENA)1430 (Stopped - Provider: Tiana Gamez RN) 100 mL/hr, Intravenous, CONTINUOUS, Star ting on Thu07/23/21 at 2145, Until Thu07/24/21 at 1430 PRN Medication Order 2021 07/24/2021 07/25/2021 diphenhydrAMINE (Benadryl) (50 mg/mL) injection 25 mg (CANCE LED) 534 (Given - Provider: Afshan Gill RN) 25 mg, Intravenous, EVERY 30 MIN PRN, 2 doses, Starting on Thu07/23/21 at 2055, Until Thu07/24/21 at 1301, Itching, May repeat dose in 30 minutes if pruritis not relieved. Per [employer] order., Routine ibuprofen (Advil) tablet 600 mg [...] dose, Starting on 07/22/21 at 1503, Until Kiara 07/25/21 at 1920, for discomfort with PIV insertion, Recovery (Recovery-Hospital Unit), Routine ondansetron (pf) (Zofran) (2 mg/mL) injection 4 mg (CA NCELED) 184 (Given - Provider: Mavis Poe, GENA) 4 [...] use ondansetron firs t, prochlorperazine second. Per [employer]ER order. oxyCODONE (Roxicodone) tablet 5 mg 1515 [...] S tarting on Thu07/22/21 at 1503, Until Thu07/25/21 at 1920, flush, Flush pertains to all [...] patch
documented in this encounter Care Teams Tram Inspector Relationship Specialty Start Date End Date Ally Ortiz APRN PCP - General Internal Medicine 04/24/21 [facility] [place] [address] documented as of this encounter
--- OUTSIDE RECORDS SUMMARY | 2021-09-27 14:53 | XMS_ITS | Encounter Summary ---
:1960 [place] [address] Care Team Providers Name Role Phone DianaAlly Mary MUNOZ Primary Care Provider Reason for Visit Auth/Cert Specialty Diagnoses / Procedures Referred By Contact Refer red To Contact Diagnoses Recurrent abdominal hernia incarcerated hernia Procedures EMERGENCY IPI Referral ID Status Reason Start Date Expiration Date Visits Requ ested Visits Authorized [id number] 1 1 Encounter Details Date Type Department Care Team Description 2021 Anesthesia Event Main Operating Room Azar Solares MD [facility] [place] [address] [place] [address] [facility] Susana Coombs [facility] [place] [place] [address] [place] [address] Anesthesia Record Procedure Summary Procedure Name Responsible Anesthesia Start Anesthesia Stop Anesthesiologist Time Time HERNIA REPAIR, VENTRAL Azar Dent MD 07/23/21 1436 0 07/23/21 1732 OR INCISIONAL, RECURRENT, INCARCERATED (WRVU 15.53) (N/A Abdomen) Events Date Time Event Comment 2021 1406 1436 AN Verify 1436 Start 1436 An Start Data 1446 An Induction 1449 An Intubation 1450 Anesthesia Ready 1610 Handoff Intra-procedure anesthesia care was transferred afte r review of the patient's history, current anesthetic/surgical status and procedural p sj, anticipated issues and expected post-op erative course (including disposition.) Colt Dent MD 1713 An Data Art 1725 Extubation/LMA Out 1727 an stop data 1732 Recovery or ICU Handoff Patient care was transferred to the destination unit staff after review of the patient's medica l history, current anesthetic/surgi mary grace status and plan, according to the Provider Handoff Checklist. 1732 Stop Name Total fentaNYL 50 mcg IV Lidocaine 50 mg Propofol 200 mg Rocuronium 100 mg ePHEDrine 30 mg Dexamethasone 4 mg Propofol INF 604.16 mg Ketamine 10 mg/mL 50 mg Dexmedetomidine 20 mcg ceFAZolin 2 g HYDROmorphone 2 mg/mL 2 mg PHENYLephrine INF 460 mcg Sugammadex 200 mg Lactated Ringers 800 mL Lactated Ringers 100 mL Agents Name O2 Air N2O Sevoflurane (et) Isoflurane (et) Blood No blood administrations on file. Lines, Drains, and Airways Type Details Placement Removal Incision 07/23/21; 1511; midline, 07/23/21 1511 by anterior; abdomen; Nikos Avila vertical RN Incision 04/25/20; 0602; midline; 04/25/20 [...] not present upon assessment; 08/12/21; 2200 PIV 07/22/21; 1854; cephalic 07/22/21 1854 by 1359 by vein (lateral side of Rylie Joy RN Cyrs, Tiana Emerson RN arm), left; [id number]-[id number] catheter system; Ultrasound Guidance; 20 gauge, 1 in length, 3/4 in length; gsr, rn vas; distraction, intradermal injection; 0; 07/25/21; 1359 Lumbar/CSF Drain 07/23/21; 1400; Left; 07/23/21 1400 by Cyrs, 1000 by anterior; lower quadrant; GENA Diehl, Tiana Emerson, RN collapsible closed device; 07/25/21; 1000 ETT Mask Ventilation: Easy 07/23/21 1449 by 07/23/21 1643 by (1); ETT Type: Cuffed; Stacey Rome Emily, CRNA ETT Size: 7 mm; Lee Blade: 2; Notes: Asleep; Attempts: 1; Laryngoscopy Grade: 1; ETT Placement Verified By: Capnometry, Visual; Secured at Teeth: 22 cm; Inserted by: Latricia PIV 07/23/21; 1450; median 07/23/21 1450 by 07/24/21 2246 by vein (underside of arm), Stacey Rome Jaimie L, left; qpwl-vqj-arkory RN catheter system; Anatomical Landmarks; 20 gauge; Karine Coombs; pain w/ flushing; site symptomatic, catheter/device intact; 07/24/21; 2246 Urethral Catheter 07/23/21; 1503; Abdominal 07/23/21 1503 by 02/04 0930 by surgery, Surgery longer Nikos Avila Cy rs, Samantha M RN than 2 hours, Physician RN order; indwelling double lumen catheter; hydrophilic coated, latex; 14; inserted at this facility (by Nikos Avila RN); 1 (smooth insertion; clear, bright yellow urine returned upon insertion); 10; 10; none; drainage bag to dependent drainage; 07/24/21; 0930 Lumbar/CSF Drain 07/23/21; 1646; Left; 07/23/21 1646 by 07/24/21 0900 by anterior; abdomen; Nikos Alan Cyrs, Samantha M, RN Eleah Porter MD; Sterile RN technique; 15 FR round silicone drain - to grenade bulb reservoir (left abdomen); 07/24/21; 0900 Lumbar/CSF Drain 07/23/21; 1652; Right; 07/23/21 1652 by 2 2200 by anterior; abdomen; Nikos Avila Jalbert, Jaimie L, collapsible closed RN RN device; Dr Lisandro Treviño MD; Sterile technique; 15FR round silicone drain to grenade bulb reservoir - (right abdomen); No GEE drain present. LDA from 07/23/21, previous admission; 08/12/21; 2199 NPWT 07/23/21; 173; midline; 07/23/21 173 by 2199 by abdomen; LDA not present, Reinaldo Vázquez, RN Kalee Zhong, LDA from 07/23/21. New warp knitter helper vac placed on abdomen 08/12/21.; LDA not present upon assessment; 08/12/21; 2199 documented in this encounter Social History Tobacco [...] encounter OR Notes Anesthesia Postprocedure Evaluation - Azar Dent MD - 2021 9:25 PM EDT Department of Anesthesiology Post-procedure Note Patient: Jahaira Montgomery Procedure Summary Date: 07/23/21 Room / Location: [facility] OR [address] [place] [address] MAIN OR Anesthesia Start: 6 Anesthesia Stop: 1731 Procedures: HERNIA REPAIR, VENTRAL OR INCISIONAL, RECURRENT, INCARCERATED (WRVU 15.53) (N/A Abdomen) IMPLANT MESH FOR INCISIONAL OR VENTRAL HERNIA REPAIR (WRVU 4.88) (N/A Abdomen) Diagnosis: (recurrent ventral hernia) Surgeons: Negro Watters MD Responsible Provider: Azar Dent MD Anesthesia Type: general ASA Status: 3 All Anesthesia Providers: Anesthesiologist: Azar Dent MD; Donato Morales MD VISUAL SUPERVISOR: Susana Coombs CRNA Student Nurse Core Checker: Stacey Rome Vitals Value Taken Time BP 125/71 07/23/212042 Temp 36.5 ??C (97.7 ??F) 07/23/212042 Pulse 67 07/23/21 1915 Resp 18 07/23/212042 SpO2 88 % 07/23/212123 Pain Level 0 07/23/21 1800 Vitals shown include unvalidated device data. Patient Location: PACU/[facility] Level of Consciousness: Awake and Alert Pain Management: Satisfactory Analgesia PONV: None Cardiovascular Status: At Baseline and Hemodynamically Stable Respiratory Status: At Baseline and Room Air Postoperative Fluid Status: Intravascular EUvolemia Possible Anesthetic Complications: NONE apparent at time of evaluation Final Primary Anesthesia Type: General (The anesthetic type performed was the same as planned.) Comments: Azar Dent MD Anesthesia Preprocedure Evaluation - Donato Morales MD - 2021 7:52 AM EDT Pre-Anesthesia Evaluation for: Jahaira Montgomery a 61 y.o. female. Procedure(s): HERNIA REPAIR, RECURRENT INCISIONAL OR VENTRAL, REDUCIBLE (WRVU 12.37) Patient Active Problem List Diagnosis Date Noted ??? Recurrent abdominal hernia 07/22/2021 ??? Incarcerated [...] 27.9) performed by Miryam Wiley MD at [facility] MAIN OR ??? PRO COLONOSCOPY, DIAGNOSTIC N/A 08/18/2019 COLONOSCOPY, DIAGNOSTIC performed by Emigdio Lanier MD at [facility] ENDOSCOPY ??? PRO CYSTOSCOPY, INSERT URETERAL STENT Right 09/14/2019 CYSTO, STENT PLACEMENT INTRAOP, TEMPORARY (WRVU 2.82) performed by Werner Fournier MD at [facility] OR ??? PRO EXPLORATORY OF ABDOMEN N/A 04/25/2020 @EXPLORATORY LAPAROTOMY, WITH/WITHOUT BIOPSY(S) (WRVU 12.54) performed by Jerod Frost MD at [facility] [...] 15.53) performed by Jerod Frost MD at [facility] [place] ??? TUBAL LIGATION Social History Tobacco [...] Physical Exam: Preprocedure Vitals Current as of 07/23/21 0752 BP: 123/76 Pulse: Resp: 16 SpO2: 93 Temp: 36.8 ??C (98.2 ??F) Height: 152 cm (4' 11.84) (07/22/21) Weight: 102.4 kg (225 lb 11.2 oz) (07/22/21) BMI: 44.31 IBW: 40.7 kg (89 lb 10.7 oz) Last edited 07/23/21 0745 by BD Airway Assessment: Mallampati: II TM distance: >3 FB Neck ROM: full Cardiovascular Assessment: Rhythm: regular Rate: normal Pulmonary Assessment: unlabored breathing Dental Assessment: - normal exam Misc Assessment: Patient is wearing No contact(s). IV access: Peripheral line Last Filed Perioperative Cognitive Screening None Anesthesia Plan: ASA 3 general, with a(n) intravenous induction Jahaira Montgomery is a 61 y.o. 102 kg female presenting for ventral hernia repair. Pt has a PMH of diverticulitis s/p Lucy's procedure and enterostomy closure now with incarcerated ventral hernia Prior anesthetic hx: Tolerated GA without issue. Previously easy mask, Gr 1 w Mac 3 Labs were reviewed Allergies: No Known Allergies NPO Status: Appropriate Anesthetic Plan: GA with ETT Standard ASA monitoring Adequate IV access Donato Morales MD PhD #[id number] Region - Other Informed Consent: Anesthetic plan and risks discussed with patient. Use of blood products discussed with patient who consented to blood products. Plan discussed with VISUAL SUPERVISOR. Anesthesia Screening documented in this encounter Plan of Treatment Upcoming Encounters Date Type Specialty Care Team Description 09/30/2021 Office Visit General Surgery Paloma Mota, WATCHMAKER APPRENTICE [facility] ER GENERAL SURGERY [place], [place] [address] (Rekha munoz) 09/30/2021 Office Visit Infectious Diseases Werner Harrell MD [facility] ER INFECTIOUS [place], [place] [address] (Rekha munoz) documented as of this encounter Visit Diagnoses Not on filedocumented in this encounter Administered Medications Inactive Administered Medications - up to 3 most recent administrations Medication Order MAR Action Action Date Dose Rate Site ceFAZolin (Ancef) 1 g in dextrose 5% Given 2021 2:53 PM ED T 2 g 50 mL infusion Intravenous, PRN, Starting on Thu07/23/21 at 1453, Until Thu07/23/21 at 1732, Administer over 30 Minutes, Anesthesia Intra-op dexamethasone (Decadron) injection Given 2021 2:59 PM EDT 4 mg Intravenous, PRN, Starting on Thu07/23/21 at 1459, Until Thu07/23/21 at 1732, Anesthesia Intra-op, Routine dexmedetomidine (Precedex) (4 mcg/mL) bolus Given 2021 3:1 2 PM EDT 8 mcg injection (Anesthsia) Intravenous, PRN, Starting on Thu07/23/21 at 1459, Until Thu07/23/21 at 1732, Anesthesia Intra-op, Routine Given 2021 2:59 PM EDT 12 mcg ePHEDrine sulfate (5 mg/mL) multi-dose Given 2021 3:35 PM EDT 5 mg injection Intravenous, PRN, Starting on Thu07/23/21 at 1504, Until Thu07/23/21 at 1732, Anesthesia Intra-op, Routine Given 2021 3:29 PM EDT 5 mg Given 2021 3:20 PM EDT 10 mg fentaNYL (pf) (50 mcg/mL) multi-dose Given 2021 2:41 PM ED T 50 mcg injection Intravenous, PRN, Starting on Thu07/23/21 at 1441, Until Thu07/23/21 at 1732, Anesthesia Intra-op, Routine HYDROmorphone (Dilaudid) (2 mg/mL) multi-dose Given 4:18 PM EDT 0.6 mg injection solution Intravenous, PRN, Starting on Thu07/23/21 at 1512, Until Thu07/23/21 at 1732, Anesthesia Intra-op, Routine Given 2021 4:10 PM EDT 0.4 mg Given 2021 3:54 PM EDT 0.4 mg ketamine (Ketalar) (10 mg/mL) IV bolus Given 2021 2:57 PM EDT 50 mg injection (Anesthesia) Intravenous, PRN, Starting on Thu07/23/21 at 1457, Until Thu07/23/21 at 1732, Anesthesia Intra-op lactated ringers infusion New Bag 2021 2:36 PM EDT Intravenous, CONTINUOUS PRN, Starting on Thu07/23/21 at 1436, Until Thu07/23/21 at 1732, Anesthesia Intra-op lactated ringers infusion New Bag 2021 2:50 PM EDT Intravenous, CONTINUOUS PRN, Starting on Thu07/23/21 at 1450, Until Thu07/23/21 at 1732, Anesthesia Intra-op lidocaine (pf) (Xylocaine) (20 mg/mL) 2% Given 2021 2:46 P M EDT 50 mg injection syringe Intravenous, PRN, Starting on Thu07/23/21 at 1446, Until Thu07/23/21 at 1732, Anesthesia Intra-op, Routine PHENYLephrine (Osbaldo-Synephrine) Rate/Dose Change 2021 3:45 20 mcg/min 15 mL/hr (80 mcg/mL) in sodium chloride PM EDT 0.9% 250 mL infusion Intravenous, CONTINUOUS PRN, Starting on Thu07/23/21 at 1539, Until Thu07/23/21 at 1732, Anesthesia Intra-op, Routine New Bag 2021 3:39 PM EDT 30 mcg/min 22.5 mL/hr propofoL (Diprivan) (10 mg/mL) New Bag 2021 2:51 PM 50 m cg/kg/min 30.72 mL/hr infusion EDT Intravenous, CONTINUOUS PRN, Starting on Thu07/23/21 at 1451, Until Thu07/23/21 at 1732, Anesthesia Intra-op, Routine propofoL (Diprivan) 10 mg/mL bolus injection Given 12/2021 2:46 PM EDT 200 mg (Anesthesia) Intravenous, PRN, Starting on Thu07/23/21 at 1446, Until Thu07/23/21 at 1732, Anesthesia Intra-op rocuronium (Zemuron) (10 mg/mL) multi-dose Given 2021 4:23 PM EDT 10 mg injection Intravenous, PRN, Starting on Thu07/23/21 at 1447, Until Thu07/23/21 at 1732, Anesthesia Intra-op, Routine Given 2021 3:54 PM EDT 10 mg Given 2021 3:12 PM EDT 30 mg sugammadex (Bridion) 100 mg/mL injection Given 2021 5:04 PM EDT 200 mg Intravenous, PRN, Starting on Thu07/23/21 at 1704, Until Thu07/23/21 at 1732, Anesthesia Intra-op, Routine documented in this encounter Care Teams Assistant Associate Professor Relationship Specialty Start Date End Date Ally Ortiz APRN PCP - General Internal Medicine 04/24/[address] [place] [address] documented as of this encounter
--- OUTSIDE RECORDS SUMMARY | 2021-09-27 14:54 | XMS_ITS | Encounter Summary ---
:1960 Author Organization [facility] [place] [address] Care Team Providers Name Role Phone Hanane Martinez MD Primary Care Provider Reason for Visit Reason Comments Hospital Transfer Abdominal Pain Auth/Cert Specialty Diagnoses / Procedures Referred By Contact Refer red To Contact Diagnoses Incarcerated hernia sbo Procedures ER IPI Referral ID Status Reason Start Date Expiration Date Visits Requ ested Visits Authorized [id number] 1 1 Encounter Details Date Type Department Care Team Description 04/24/2020 - Hospital Encounter 4 [facility] Alaina Garcia MD [facility] [place] [address] Incarcerated hernia [facility] [place] [address] [facility] [place] [address] [place] [address] Social History Tobacco Use Types Packs/Day Years [...] Sign Reading Time Taken Comments Blood Pressure 139/71 04/27/2020 8:00 AM EST Pulse 64 04/27/2020 4:57 AM EST Temperature 36.5 ??C (97.7 ??F) 04/27/2020 8:00 AM EST Respiratory Rate 15 04/27/2020 8:00 AM EST Oxygen Saturation 96% 04/27/2020 8:00 AM EST Inhaled Oxygen Concentration - - Weight 83.9 kg (185 lb) 04/26/2020 3:39 PM EST Height 152 cm (4' 11.84) 04/26/2020 3:39 PM EST Body Mass Index 36.32 04/26/2020 3:39 PM EST documented in this encounter Discharge Summaries Chary Brunner MD - 04/27/2020 6:52 AM EST Images from the original note were not included. Acute Care Surgery Discharge Summary Patient Name: Jahaira Montgomery Patient Age: 59 y.o. : 1960 Attending Physician: Deangelo Oliveira MD Date of Admission: 04/24/2020 Date of Discharge: ID: [id number] y.o.yo pt admitted on 04/24/2020 for incarcerated ventral hernia Other In-hospital Issues: - incarcerated ventral hernia with SBO - Acute Pain Secondary Diagnosis: Past Medical History: Diagnosis Date ??? Chronic pain Chronic bilat knee (ACL) pain ??? Claudication left leg no acl right leg torn acl ??? Diverticulitis ??? Syncope fainted 10 years ago from heat Allergies: No Known Allergies Operations/Procedures: 04/25/2020 Procedure(s): @EXPLORATORY LAPAROTOMY, WITH/WITHOUT BIOPSY(S) (WRVU 12.54) HERNIA REPAIR, VENTRAL OR INCISIONAL, RECURRENT, INCARCERATED (WRVU 15.53) HPI: Per Dr. Swann on 04/24 Jahaira Montgomery is a 59 y.o. female with a history multiple abdominal surgeries most recently being Lucy's procedure on 03/19/19 at [facility] for complicated diverticulitis and subsequently underwent reversalon 09/14/19 here at [facility]. She reports that she overall had been doing quite well but began to have abdominal pain on Thursday. She reports that she wound occasionally (around 1x/month) have a similar discomfort and notice a bulge, but that this was usually very short lived and not associated w/ nausea or vomiting.The pain she developed on Thursday however was of greater intensity and progressively worsened. Additionally she notes that this episode was associated w/ nausea and vomiting. She denies any blood in her vomitus. She denies any associated fever or chills. She notes that over the last 24 to 48 hours she is not had any bowel movements nor is she passing flatus. Hospital Course: 04/25: OR -> hernia able to be reduced, bowel viable, hernia defect repaired primarily. Zosyn discontinued. 04/26: pat removed, NGT removed, diet advanced, mIVF discontinued, worked with PT/OT Jahaira Montgomery's pain was adequately controlled, she was maintaining adequate oxygen saturation on room air, and was hemodynamically stable. She was tolerating a diet without abdominal complaints and voiding adequately. WBC and Hgb were stable. S/he was ambulating with walker.. Jahaira Montgomery was evaluated by the Surgery Team and deemed medically stable for discharge today. Plan: Tylenol and ibuprofen for pain F/u 3-4 wks with surgery clinic Regular diet No lifting >10 pounds for 3-4 weeks No antibiotics indicated Home with VNA Active issues to be addressed at discharge: none Incidental Radiographic Findings: none Pending Lab Data at Discharge: none Pertinent Lab Data: Recent Labs 04/26/2041504/25/2054 04/24/20 2234 WBC 15.5* 16.6* 13.8* HGB 12.9 14.4 14.9 HCT 39.4 44.1 45.1 PLATELET 243 244 274 Recent Labs 04/26/2041504/25/20 0954 04/24/20 2234 NA 142 138 137 K 3.4* 4.2 3.9 CL 104 104 105 CO2 31 24 22 BUN 13 17 19* CREATININE 0.49* 0.62* 0.60* GLUCOSE 102 152 120 CALCIUM 8.8 8.6 8.5 MAGNESIUM 0.88 -- 0.82 PHOS 2.9 -- 2.9 Microbiology Data: Microbiology Results (last 7 days) Procedure Component Value - Date/Time COVID-19 PCR [[id number]] Collected: 04/25/20 0651 Lab Status: Final result Specimen: Nasopharyngeal Swab Updated: 04/25/20 1003 Rapid SARS-CoV-2 RNA Not Detected Comment: This result [...] diagnosis of COVID-19 is performed using the [employer] COVID-19 Direct Assay by ACE as authorized by the FDA issued Emergency [...] Department of Pathology and Laboratory Medicine at [facility], certified under the Clinical Laboratory [...] fact sheets at the following FDA website: https://www.fda.gov/medical-devices/elwjphidmuj-esnxejw-8754-zfnji-93-wocahiupm- hyi-itcynktzkrdxlh-fkxumdv-devices/bqece-lumnnhnezfd-pdij SARS-CoV-2 Source LABORATORY [facility] Swab Microbiology Results (last 6 months) Procedure Component Value - Date/Time COVID-19 PCR [[id number]] Collected: 04/25/20 0651 Lab Status: Final result Specimen: Nasopharyngeal Swab Updated: 04/25/20 1003 Rapid SARS-CoV-2 RNA Not Detected Comment: This result [...] using the Simplexa COVID-19 Direct Assay by ACE as authorized by the FDA issued Emergency [...] Department of Pathology and Laboratory Medicine at [facility], certified under the Clinical Laboratory [...] fact sheets at the following FDA website: https://www.fda.gov/medical-devices/eujqhdymxov-uelfuhp-0076-cmzsk-37-edhdgshqw- yzr-bkipskxhgbsmjs-twmqxwf-devices/syvst-huydssbhlvk-bcyh SARS-CoV-2 Source LABORATORY [facility] [employer] Swab Pertinent Imaging: Results for orders placed or performed during the hospital encounter of 04/24/20 Request For [address]nd Read CT Abdomen & Pelvis (Exam End: 04/24/2020 10:47 PM) Impression 1. Small bowel obstruction with transition point at the site of a paraumbilical hernia containing loops of distal small bowel. Wall thickening and adjacent edema suggests signs of inflammation concerning for ischemia and bowel incarceration. 2. No free intraperitoneal air or loculated fluid. Preliminary report signed by: Nikos Hill at 04/24/2020 11:21 PM I have personally reviewed the image(s) and the resident's interpretation and agree with the findings, Liborio Lea MD at 04/25/2020 1:04 AM Thank you for letting us participate in the care of this patient. For questions regarding this report, please contact the number below. Abdomen 1 view (Generic) (Exam End: 04/25/2020 8:16 AM) Impression 1. Nasogastric tube tip is in the stomach. 2. Dilated small bowel unchanged from prior, consistent with known small bowel obstruction. Thank you for letting us participate in the care of this patient. For questions regarding this report, please contact the number below. Discharge Physical Examination: GEN: NAD, pleasant CV: RRR PULM: breathign comfortably on RA GI: obese, soft, appropriately tender to palpation, dressing removed revealing inferior midline incision healing well, well approximated : no pat ?? Vital Signs: Last value Range last 24hrs Temperature Temp: 36.5 ??C (97.7 ??F) Temp: [36.3 ??C (97.3 ??F)-36.7 ??C (98.1 ??F)] Heart Rate Heart Rate: 64 Heart Rate: [58-82] Blood Pressure BP: 139/71 BP: (120-162)/(66-81) Respiratory Rate Resp: 15 Resp: [14-18] SpO2 SpO2: 96 % SpO2: [91 %-96 %] Physical Exam: Current Medications: The following medications have been prescribed for you. If you notice any adverse reactions to your medications, please contact your primary care physician immediately or go to the nearest Emergency Department. Your Medications New Medications Dose Details * nicotine 21 mg/24 hr Pt24 Commonly known as: NICODERM CQ Change 1 patch on the skin daily. 1 patch Quantity: 14 patch Refills: 0 * nicotine 14 mg/24 hr Pt24 Commonly known as: NICODERM CQ Change 1 patch on the skin Q10 Weeks. 1 patch Quantity: 28 patch Refills: 0 nicotine polacrilex 2 mg Gum Commonly known as: NICORETTE Take 1 each by mouth as needed [...] 2 tablet Quantity: 60 tablet Refills: 11 * This list has 2 medication(s) that are the same as other medications prescribed for you. Read thedirections carefully, and ask your doctor or other care provider to review them with you. Continued medications, unchanged Dose Details acetaminophen 500 mg Tab Commonly known as: Tylenol Extra Strength Take 1 tablet by mouth every 6 hours as needed for Pain. 500 mg Quantity: 30 tablet Refills: 0 ibuprofen 600 mg Tab Commonly known as: Advil;Motrin Take 1 tablet by mouth every 6 hours as needed for Pain. 600 mg Quantity: 30 tablet Refills: 0 Disposition: home with VNA Scheduled Appointments: The following appointments have been scheduled on your behalf: No future appointments. 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 Name: self/patient In discussion with the attending physician, it is certified that this patient is under their care and that they, or a Nurse Practitioner,Clinical Nurse specialist or Physician Nozzle Operator who is working directly with them, had a face to face encounter that meets the physician face to face encounter requirements with this patient on 04/26/2020 The encounter with the patient was in whole, or in part, for the following medical condition, which is the primary reason for home health care services: Incarcerated ventral hernia - Would benefit fromhome PT to progress mobility off of walker as able. In discussion with the provider, it is certified that, based on their findings, the following services are medically necessary for home health services. To provide the following care/treatments with the clinical findings supporting the need for servicesas follows: HOME CARE ORDERS: PT ORDERS: Continue rehab for endurance, gait stability and strength with mobility and transfers. Home safety evaluation. Home exercise program if appropriate. HOME HEALTH CARE AGENCY: [facility]. PHONE: [phone] FAX: [phone] Start of care: 24 to 48 hours post discharge Please note that any additional orders needs or changes will need to be obtained from this patient'sPCP: Hanane Martinez MD [phone] [facility] [id number] All VNA agencies which cover the area of patient's residence have been reviewed, either verbally or in writing, and patient/family have chosen the home health care agency noted Question Response Notes Agency name and contact information [facility] What services are requested Physical Therapy Special Instructions Given to Patient at Discharge:. An After Visit Summary was printed and given to the patient. Patient Instructions Discharge Instructions You were were admitted and treated for the following diagnosis: incarcerated ventral hernia with small bowel obstruction As a result of your CT scans, you were found to have the following incidental findings, please discuss with your primary care provider at you next visit: none CALL YOUR PHYSICIAN IF: 1. You have a fever greater than 101F 2. You have diarrhea or vomiting for >24 hours, or stop having bowel movements and passing flatus 3. You have worsening pain, not controlled with your pain medication. 4. You develop redness, swelling, or new drainage from your wounds Follow up: No future appointments. - One will be made for you. Narcotics: You may be given a prescription [...] but try again the following day. - NO lifting more than 10 pounds for3-4 weeks - You may tire easily, so frequent [...] 1. You will have follow-up appointments at [facility] as indicated in the ???Future Appointments and [...] on the next business day. Please call [phone] if you do not hear from us by that time, as your timely follow-up is very important to us. Your care was managed by the Trauma and Acute Care Surgery Team at [facility]. If you have any questions or concerns, please feel free to contact us. Provider Contact Information: General Surgery: [facility] (after business hours): CC: Primary Care Physician: Hanane Martinez MD General Instructions Congratulations for quitting smoking! Your quit date for quitting smoking is 04/25/2020 ?? You have chosen to quit smoking using Nicotine patches daily and gum as needed. ?? Nicotine patch instructions: Use the 21 mg nicotine patches daily for 4 weeks then, Decrease to the 14 mg patches daily for 2 weeks then, Decrease to the 7 mg patches daily for 2 weeks. ?? If at any time when you decrease the dose you feel an increase in cravings to smoke you may go back to the higher dose for another 2 weeks and then try to decrease the dose again. Do not hesitate to call if you have questions about this or are struggling with cravings or withdrawal symptoms. Place the patch on your skin in an area that has a minimal amount of hair, typically between the neck and waist or upper arms. Avoid placing it over scars or tattoos. Change the place where you put it on your skin daily. Remove the patch each morning and replace with a new patch. Fold the patch in half, with the sticky sides in and dispose of it safely, keeping it out of reach of children or pets. Some patients experience nightmares or bad dreams on the patch. If this happens you should remove the patch at bedtime and just replace it each morning. ?? The nicotine patch releases a constant amount of nicotine in the body. The nicotine dissolves right through the skin and enters the body. Less nicotine is obtained through the patch than in cigarettes.The patch does NOT contain all the tars and poisonous gases that are found in cigarettes. ?? Side effects from wearing the patch can include: headaches, dizziness, upset stomach, weakness, blurred vision, vivid dreams, mild itching and burning on the skin, and diarrhea. ?? Wearing the nicotine patch decreases the chances of suffering from several of the major smoking withdrawal symptoms such as tenseness, irritability, drowsiness and lack of concentration. ?? The nicotine patch can be combined with other Nicotine Replacement Therapy products such as Nicotinegum or lozenges. Ask your healthcare provider about combination therapy to increase your chances of successfully quitting tobacco for good! ?? The US Food and Drug Administration has recently released a statement that there are no significant risks associated with the use of Nicotine Replacement Therapy products for longer than the labeled number of weeks of use. ?? If you are still having strong cravings to smoke or are struggling to quit completely while using the Nicotine patch talk with your healthcare provider for additional help. ?? References: Treating Tobacco Use and Dependence, Clinical Practice Guideline 2008 Update, U.S. Department of Health and Human Services, July 2007 Nicotine gum instructions: Use the 2 mg piece as soon as you wake up, 30 minutes before meals and atbedtime at a minimum. ?? Nicotine gum must be used properly in order to be effective. Nicotine from the gum is absorbed through the mucous membranes in your mouth at a certain acidity or pH level. Therefore do not eat or drinkanything but water for 15 minutes prior to or during use. ?? Directions: Nicotine gum should be chewed slowly until you can taste the nicotine or feel a slight tingling in your mouth. Then stop chewing and place (park) the chewing gum between your cheek and gum.When the tingling is almost gone (about 1 minute), start chewing again; repeat this procedure for about 30 minutes. ?? Nicotine gum come in two strengths, 2 mg and 4 mg. You should use the 2 mg pieces if you smoke your first cigarette more than 30 minutes after waking. You should use the 4 mg pieces if you smoke your first cigarette less than 30 minutes after waking. You can use up to 20 pieces of gum a day. ?? Nicotine gum can be combined with Nicotine patches for increased chances of successfully quitting tobacco for good! References: Treating Tobacco Use and Dependence, Clinical Practice Guideline 2008 Update, U.S. Department of Health and Human Services, July 2007 Your care was managed by the Trauma and Acute Care Surgery Team at [facility]. If you have any questions or concerns, please feel free to contact us. Provider Contact Information: General Surgery Clinic: Nurses line for questions: [facility] (after business hours): CC: Hanane Martinez MD [facility] Paloma Mota APRN Signed: Chary Brunner MD Department of Surgery 04/27/2020 Acute Care Surgery Pager [phone] documented in this encounter Discharge Instructions Discharge InstructionsJoshua Medina RN - 04/27/2020 11:25 AM EST Congratulations for quitting smoking! Your quit date for quitting smoking is 04/25/2020 ?? You have chosen to quit smoking using Nicotine patches daily and gum as needed. ?? Nicotine patch instructions: Use the 21 mg nicotine patches daily for 4 weeks then, Decrease to the 14 mg patches daily for 2 weeks then, Decrease to the 7 mg patches daily for 2 weeks. ?? If at any time when you decrease the dose you feel an increase in cravings to smoke you may go back to the higher dose for another 2 weeks and then try to decrease the dose again. Do not hesitate to call if you have questions about this or are struggling with cravings or withdrawal symptoms. Place the patch on your skin in an area that has a minimal amount of hair, typically between the neck and waist or upper arms. Avoid placing it over scars or tattoos. Change the place where you put it on your skin daily. Remove the patch each morning and replace with a new patch. Fold the patch in half, with the sticky sides in and dispose of it safely, keeping it out of reach of children or pets. Some patients experience nightmares or bad dreams on the patch. If this happens you should remove the patch at bedtime and just replace it each morning. ?? The nicotine patch releases a constant amount of nicotine in the body. The nicotine dissolves right through the skin and enters the body. Less nicotine is obtained through the patch than in cigarettes.The patch does NOT contain all the tars and poisonous gases that are found in cigarettes. ?? Side effects from wearing the patch can include: headaches, dizziness, upset stomach, weakness, blurred vision, vivid dreams, mild itching and burning on the skin, and diarrhea. ?? Wearing the nicotine patch decreases the chances of suffering from several of the major smoking withdrawal symptoms such as tenseness, irritability, drowsiness and lack of concentration. ?? The nicotine patch can be combined with other Nicotine Replacement Therapy products such as Nicotinegum or lozenges. Ask your healthcare provider about combination therapy to increase your chances of successfully quitting tobacco for good! ?? The US Food and Drug Administration has recently released a statement that there are no significant risks associated with the use of Nicotine Replacement Therapy products for longer than the labeled number of weeks of use. ?? If you are still having strong cravings to smoke or are struggling to quit completely while using the Nicotine patch talk with your healthcare provider for additional help. ?? References: Treating Tobacco Use and Dependence, Clinical Practice Guideline 2008 Update, U.S. Department of Health and Human Services, July 2007 Nicotine gum instructions: Use the 2 mg piece as soon as you wake up, 30 minutes before meals and atbedtime at a minimum. ?? Nicotine gum must be used properly in order to be effective. Nicotine from the gum is absorbed through the mucous membranes in your mouth at a certain acidity or pH level. Therefore do not eat or drinkanything but water for 15 minutes prior to or during use. ?? Directions: Nicotine gum should be chewed slowly until you can taste the nicotine or feel a slight tingling in your mouth. Then stop chewing and place (park) the chewing gum between your cheek and gum.When the tingling is almost gone (about 1 minute), start chewing again; repeat this procedure for about 30 minutes. ?? Nicotine gum come in two strengths, 2 mg and 4 mg. You should use the 2 mg pieces if you smoke your first cigarette more than 30 minutes after waking. You should use the 4 mg pieces if you smoke your first cigarette less than 30 minutes after waking. You can use up to 20 pieces of gum a day. ?? Nicotine gum can be combined with Nicotine patches for increased chances of successfully quitting tobacco for good! References: Treating Tobacco Use and Dependence, Clinical Practice Guideline 2008 Update, U.S. Department of Health and Human Services, July 2007 Patient InstructionsChary Brunner MD - 04/27/2020 6:48 AM EST Discharge Instructions You were were admitted and treated for the following diagnosis: incarcerated ventral hernia with small bowel obstruction As a result of your CT scans, you were found to have the following incidental findings, please discuss with your primary care provider at you next visit: none CALL YOUR PHYSICIAN IF: 1. You have a fever greater than 101F 2. You have diarrhea or vomiting for >24 hours, or stop having bowel movements and passing flatus 3. You have worsening pain, not controlled with your pain medication. 4. You develop redness, swelling, or new drainage from your wounds Follow up: No future appointments. - One will be made for you. Narcotics: You may be given a prescription [...] but try again the following day. - NO lifting more than 10 pounds for3-4 weeks - You may tire easily, so frequent [...] 1. You will have follow-up appointments at [facility] as indicated in the ???Future Appointments and [...] on the next business day. Please call [phone] if you do not hear from us by that time, as your timely follow-up is very important to us. Your care was managed by the Trauma and Acute Care Surgery Team at [facility]. If you have any questions or concerns, please feel free to contact us. Provider Contact Information: General Surgery: [facility] (after business hours): CC: Primary Care Physician: Hanane Martinez MD AttachmentsThe following attachments cannot be sent through Care Everywhere. Smoking: Stopping ([place])Smoking Cessation: Health Benefits: General Info ([place])documented in this encounter Medications at Time of Discharge Medication Sig Dispensed Refills Start Date End Date ALBUTEROL INHL Inhale into the 0 04/24/202008/13 lungs as needed. senna-docusate Take 2 tablets by 60 tablet 11 04/27/202011/2021 (Pericolace) 8.6-50 mg mouth 2 times daily Tablet as needed for Constipation. polyethylene glycoL Take 17 g by mouth 510 g 0 04/27/19 21 08/22/2021 (Miralax) 17 gram/dose daily as needed for Powder up to 30 doses. nicotine (NICODERM CQ) 21 Change 1 patch on 14 patch 0 02/202105/25/2020 mg/24 hr Patch 24 hr the skin daily. nicotine (NICODERM CQ) 14 Change 1 patch on 28 patch 0 02/202108/13/2021 mg/24 hr Patch 24 hr the skin Q10 Weeks. nicotine polacrilex Take 1 each by 100 each 0 04/27/2020 0 08/13/2021 (NICORETTE) 2 mg Gum mouth as needed for Smoking cessation. acetaminophen (Tylenol Take 1 tablet by 30 tablet 0 020 09/19/2021 Extra Strength) 500 mg mouth every 6 hours Tablet as needed for Pain. ibuprofen (Advil;Motrin) Take 1 tablet by 30 tablet 0 09/1808/13/2021 600 mg Tablet mouth every 6 hours as needed for Pain. documented as of this encounter Progress Notes Rodrigue Kennedy RN - 04/27/2020 1:07 PM EST Discharge Note AVS discharge instruction reviewed with patient. Verbalized understanding of review. Tolerating PO well. Voiding qs. Showered. LBM today. Incision benign. Home with VNA referral. Faxed DCS to agent. Will call for report. FU appointment scheduled.Home at this time escorted via w/c to [facility]. Rodrigue Kennedy RN Chary Brunner MD - 04/27/2020 6:50 AM EST ID/MECHANISM OF INJURY: Jahaira Montgomery is a 59 y.o. female S/p ex-lap for incarcerated ventral hernia reduction and primary repair OR CASE INFORMATION: 04/25/2020 Procedure(s): @EXPLORATORY LAPAROTOMY, WITH/WITHOUT BIOPSY(S) (WRVU 12.54) HERNIA REPAIR, VENTRAL OR INCISIONAL, RECURRENT, INCARCERATED (WRVU 15.53) FOLLOW-UP NEEDED: Does pt need to f-u with surgeon or [facility] (please indicate reason if attending provider): [place] What follow-up with TACS team is needed and how soon? 3-4 weeks Follow-up with other services? No Advise of Service and needs. Imaging orders entered: No Radiology Safety questions done for MRI/CT? N/A New or current ostomy? Ostomy nurse shared visit No Mobility concerns: Fully ambulatory Wound vac (requires 60min clinic visit) No On vent? If Yes - Needs to have someone from facility and supplies. No On Dialysis: No INCIDENTAL FINDINGS Incidental Findings (yes/no): N/A OPIOID CONSENT/NARCOTIC AGREEMENTS Current Month Narcotic Consent? N/A No Isolation D/c to: Home with VNA If Rehab - Rehab Name: PCP Name: MD Chary Santa MD 04/27/2020 Deangelo Oliveira MD - 04/26/2020 3:17 PM EST Patient Name: Jahaira Montgomery Patient Age: 59 y.o. Birthdate: 1960 Admit date: 04/24/2020 Attending Physician: Deangelo Oliveira MD General Surgery - Progress Note Patient Name: Jahaira Montgomery : [id number] MR#: [id number] 04/24/2020 Hospital Day 1 day Problem List: Active Hospital Problems Diagnosis ??? Incarcerated hernia Resolved Hospital Problems No resolved problems to display. Active Non-Hospital Problems Diagnosis ??? Ostomy nurse consultation Scheduled Meds: ??? bisacodyL 10 mg Rectal Once ??? senna-docusate 2 tablet Oral BID ??? sodium chloride 0.9 % (flush) 5 mL Intravenous BID ??? nicotine 1 patch Transdermal Daily And ??? Patch Verification 1 patch Transdermal BID And ??? nicotine 1 patch Transdermal Daily ??? heparin (porcine) 5,000 Units Subcutaneous Q8H MICHAEL Continuous Infusions: PRN Meds:.sodium chloride 0.9 % (flush), lidocaine, naloxone, ondansetron OR ondansetron, BUpivacaine (pf), phenol 1.4% S/P repair incarcerated ventral hernia Events over the last 24 hrs: No issues Subjective: Doing well Moving bowels and NGT removed Pain well controlled Objective: Physical Exam: Last Set of Vitals and range of vitals over past 24 hours: Last value Range last 24 hrs Temperature Temp: 36.3 ??C (97.3 ??F) Temp: [36.3 ??C (97.3 ??F)-36.9 ??C (98.4 ??F)] Heart Rate Heart Rate: 58 Heart Rate: [58-70] Blood Pressure BP: 162/81 BP: (112-162)/(56-81) Respiratory Rate Resp: 16 Resp: [14-16] SpO2 SpO2: 94 % SpO2: [92 %-95 %] Physical Exam Pleasant and in no distress Non distended No resp distress RRR ABd soft, not much pain Laboratory (Last 24 Hours): Recent Results (from the past 24 hour(s)) Basic Metabolic Panel (non-fasting) Result Value Ref Range Glucose Lvl 102 65 - 199 mg/dL BUN 13 8 - 18 mg/dL Creatinine 0.49 (L) 0.70 - 1.20 mg/dL Sodium 142 135 - 145 mmol/L Potassium 3.4 (L) 3.5 - 5.0 mmol/L Chloride 104 98 - 107 mmol/L CO2 31 22 - 31 mmol/L Anion Gap 7 5 - 15 mmol/L Calcium 8.8 8.5 - 10.5 mg/dL Estimated GFR 108 >=60 mL/min/1.73 m?? Magnesium Result Value Ref Range Magnesium 0.88 0.69 - 1.07 mmol/L Phosphorus Result Value Ref Range Phosphorus 2.9 2.5 - 4.5 mg/dL Hemogram Result Value Ref Range WBC 15.5 (H) 4.0 - 9.5 x10(3)/mcL RBC 4.24 4.00 - 5.21 x10(6)/mcL Hemoglobin 12.9 11.7 - 15.5 gm/dL Hematocrit 39.4 35.7 - 45.8 % MCV 92.9 82.6 - 94.4 fL MCH 30.4 27.1 - 32.0 pg MCHC 32.7 31.7 - 35.0 gm/dL Platelets 243 145 - 357 x10(3)/mcL RDWSD 43.6 37.0 - 46.0 fL RDWCV 12.8 11.5 - 14.1 % MPV 9.8 7.6 - 12.9 fL nRBC % Auto 0.0 % nRBC Abs Auto 0.000 0.000 - 0.000 x10(3)/mcL Differential, Automated Result Value Ref Range Neutrophils % 73.5 % Neutr Abs (ANC) 11.39 (H) 1 - 6 x10(3)/mcL Lymphocytes % 17.6 % Lymphocytes Abs 2.7 0.9 - 3.2 x10(3)/mcL Monocytes % 5.7 % Monocyte Abs 0.9 0.3 - 0.9 x10(3)/mcL Eosinophils % 2.3 % Eosinophils Abs 0.4 0.0 - 0.4 x10(3)/mcL Basophils % 0.6 % Basophils Abs 0.1 0.0 - 0.1 x10(3)/mcL Immature Gran % 0.30 % Shantell Gran Abs 0.05 (H) 0.00 - 0.04 x10(3)/mcL Assessment/Management/Plan: Discontinued NGT Clear liquids, advance as tolerated Ambulate Tole will likely be discharged tomorrow if continues to do well. DEANGELO OLIVEIRA MD 04/26/2020 Clarissa Spivey OT - 04/26/2020 2:50 PM EST Occupational Therapy Treatment Note Treatment Number OT: 2 Patient Dx: Jahaira Montgomery is a 59 y.o.female with mx abdominal surgeries now??Day of Surgery??s/p ex lap with hernia reduction with primary repair of defect for incarcerated ventral hernia resulting in SBO. Social History: Patient lives with brother and brother's partner in a house. There is an apartment attached to the property where Pt other brother and cnmnsp-ui-njf live. Pt dpkeji-no-qdd and brother's partner are home at all times and can assist Pt as needed. Home Setup: Pt has no CONSTANTINE. Pt has walk in shower with chair. Pt sleeps in a regular flat bed. DME: Walker (let sister borrow) Baseline ADL/Mobility: Pt does not work, but is typically independent with all ADL and IADL routines. Precautions/Special Considerations: Full code, NPO, abdominal incision, pat Interval History: NGT removed S: That is so great, regarding sock aid O: Patient seen for skilled OT treatment, and demonstrated the following: Activities of Daily Living: Self-feeding: Supervision for clear liquids Grooming: Supervision to comb hair and wipe face Dressing: Pt reeducated on sock aid and purpose and able to don socks without assistance Functional Mobility: Supine to sit: CGA with HOB elevated and extended time using log roll technique Sit to stand: CGA and later in session supervision Ambulation: CGA to Supervision ~150 ft with FWW (amilcar walker) Stand to sit: Supervision Sit to supine: Did not assess; Pt left up in recliner chair with all needs within reach Cognitive Status/Behavior: ?? Behavior / Mood: alert and cooperative ?? Alert and oriented to: person, place, time and situation ?? Follows commands: multi step and 100% of the time ?? Attention: WFL ?? Safety awareness: WFL ?? Vision & Perception: ?? corrective lenses bicycle i assembler ?? Vitals: WFL on RA Pain: Pt with no reports of pain during session Education: Pt/family/caregiver education ongoing regarding: Role of occupational therapy/rehabilitation, Transfers, Assistive device/technique, Adaptive equipment training, ADL, Breathing exercises, Positioning, Safety, Recommendations and Discharge planning. Staff Communication: Patient status, treatment, and mobility recommendations discussed with nursing/other staff. ASSESSMENT: Pt seen for OT services. Pt presented awake in bed and was agreeable to continuing transfer and ADL retraining. Pt participated in reeducation of AD and in transfers/ambulation. Pt has met all inpatient goals. Plan to place on monitor. Pt will be safe to return home with assistance when medically stable. Anticipated Discharge Disposition (OT): home with assist Equipment Recommendations: Amilcar walker ?? Other Recommendations: ?? Utilize upright chair position using bed features or transfer to recliner chair as appropriate with supervision with FWW, ambulate as tolerated ?? Encourage participation in ADL's by providing set up A on tray table and physical assist only as needed Goals: To be achieved by 05/10/20. 1. Pt will be conditional independent for LB dressing routines with AE as needed at seated/standing levels 2. Pt will be conditional independent for toileting routine at ambulatory level 3. Pt will be conditional independent for simple snack prep at ambulatory level 4. Pt will be independent for HEP for BUEs 5. Pt will be able to stand for 8 minutes to perform sink level grooming task with LRAD? All goals met Total Minutes, Occupational Therapy: 14; 1 [facility] Pager: [phone] Clarissa Spivey OT Occupational Therapy Rehabilitation Department Shawna Menard, RN - 04/26/2020 2:15 PM EST This author reviewed a list of Home Health Agencies/DME vendors which serve their preferred geographic area. Affiliations were reviewed with them and they were educated about their right to choose where referrals are placed. Patient requests referral to [facility] PHONE: [phone] FAX: [phone] Ortho Care Located @ [facility] [place], [place] Equipment needed: Front wheel walker Expected date of discharge: 04/27/2020 Shonda Hurley PT - 04/26/2020 1:40 PM EST Physical Therapy Evaluation Patient profile: Jahaira Montgomery is a 59 y.o.female with mx abdominal surgeries now s/p Surgery on 04/25??s/p ex lap with hernia reduction with primary repair of defect for incarcerated ventral hernia resulting in SBO. Patient with the following active problems: Past [...] 27.9) performed by Miryam Wiley MD at [facility] MAIN OR ??? PRO COLONOSCOPY, DIAGNOSTIC N/A 08/18/2019 COLONOSCOPY, DIAGNOSTIC performed by Emigdio Lanier MD at [facility] ENDOSCOPY ??? PRO CYSTOSCOPY, INSERT URETERAL STENT Right 09/14/2019 CYSTO, STENT PLACEMENT INTRAOP, TEMPORARY (WRVU 2.82) performed by Werner Fournier MD at [facility] MAIN OR ??? PRO EXPLORATORY OF ABDOMEN N/A 04/25/2020 @EXPLORATORY LAPAROTOMY, WITH/WITHOUT BIOPSY(S) (WRVU 12.54) performed by Liberty Swann MD at [facility] MAIN OR ??? PRO MOBILIZE SPLENIC FLEX N/A 09/14/2019 @MOBILIZATION OF SPLENIC FLEXURE (WRVU 2.23) performed by Miryam Wiley MD at [facility] MAIN OR ??? PRO OMENTAL FLAP, INTRA-ABDOMINAL 09/14/2019 @OMENTAL FLAP, INTRA-ABDOMINAL (WRVU 6.54) performed by Miryam Wiley MD at [facility] MAIN OR ??? PRO REPAIR RECURR INCIS HERNIA, DEONTE N/A 04/25/2020 HERNIA REPAIR, VENTRAL OR INCISIONAL, RECURRENT, INCARCERATED (WRVU 15.53) performed by Liberty Swann MD at [facility] MAIN OR ??? PRO SIGMOIDOSCOPY, DIAGNOSTIC N/A 09/14/2019 SIGMOIDOSCOPY, FLEXIBLE W/WO SPECIMEN BY BRUSHING OR WASHING (WRVU 0.84) performed by Miryam Wiley MD at [facility] MAIN OR ??? TUBAL LIGATION Active Non-Hospital Problems Diagnosis ??? Ostomy nurse consultation Social History: Patient lives with brother and brother's partner in a house. There is an apartment attached to the property where Pt other brother and sglard-es-urc live. Pt flvrhh-dl-pba and brother's partner are home at all times and can assist Pt as needed. Home Setup: Pt has no CONSTANTINE. Pt has walk in shower with chair. Pt sleeps in a regular flat bed. DME: Walker (let sister borrow) Baseline ADL/Mobility: Pt does not work, but is typically independent with all ADL and IADL routines. Precautions/Special Considerations: Full code,NGT,abdominal incision, log rolling Mobility and Positioning Recommendations: ?? Pt. to utilize RW and sup/ind for ambulation and transfers with nursing. ?? Please encourage up to chair for meal times as able. ?? Pt encouraged to ambulate frequently with staff, getting into the bathroom for toileting and walking out in the king >/= 3 times daily as able. Subjective: ???I am moving just fine?? Objective: Pt seen for evaluation today. Pain- no c/o pain Vital signs- VSS throughout session Mental Status: alert, oriented to person, place, and time Vision: corrective lenses bicycle i assembler Skin: midline abdominal incision Musculoskeletal: ROM: WFL's Strength: WFL's throughout Sensation: NA Bed Mobility: Supine to Sit: ind, log rolling technique Sit to Supine: ind, log rolling technique Transfers: Sit to Stand: modified ind with RW Stand to Sit: modified ind with RW Bed to Chair: mod ind with RW Gait: Distance: 150 feet Device used: RW Level of assist: Mod ind Gait mechanics: steady Stairs: pt does not have stairs at home Balance: Sitting Static: good Sitting Dynamic: good Standing Static: good with RW Standing Dynamic / Gait: Good with RW Education: family has been educated on Bed mobility, Transfers, Assistive device/technique, Breathing exercises, Safety , Precautions/protocol, Equipment use, Gait , Activity pacing/Energy conservation, Role of therapy and Discharge planning and verbalizes and demonstrates understanding. Patient status, treatment, and mobility recommendations discussed with nursing. Assessment: Jahaira Montgomery was seen today for physical therapy evaluation. Upon eval, pt demonstrates good strength,endurance and good balance with RW. Pt did not require any physical assist. . No further inpt PT needs. Pt can amb with [facility] [place] [place] staff and mobility tech. Will need a RW ordered for her. Would benefit from home PT to progress mobility off of walker as able. The pt would benefit from skilled therapy services while in the hospital to maximize functional abilities. Discharge Recommendations: Based on the current findings, anticipate DC to home with family and VNA when medically ready for hospital discharge. Consult Recommendations: No other consults recommended at this time. Equipment needs: Rolling walker Goals: No goals at this time. Pt is mobilizing very well. Plan: Therapy Frequency (PT): evaluation only . Patient/family understand and agree with plan as [...] in this evaluation. Time IN / OUT: 900-930 Total Minutes, Physical Therapy: 30 Shonda Cain, PT Pager: [phone] Physical Therapy Inpatient Rehabilitation Department Ebony Ramirez RN - 04/25/2020 5:37 PM EST OUTCOME SUMMARY: Jahaira had an ok day. AAOx4. VSS. Afebrile. Pt denies nausea. Pain well controlled with scheduled meds. Pt voiding adequate amounts via pat. Pt had no BMs this shift. Incisions CDI. NGT to LCWS, moderate output. Clamped to work with OT and ambulate to good affect, no N/V. Pt ambulated in halls with OT. Advanced to clear liquid diet, tolerating well. Will continue with the current plan of care and update as needed. Patient Vitals for the past 8 hrs: BP Temp Temp src Resp SpO2 04/25/20 1631 139/64 36.6 ??C (97.9 ??F) Oral 15 92 % 04/25/20 1240 107/58 36.6 ??C (97.9 ??F) Oral 15 96 % PLAN MOVING FORWARD: Encourage ambulation Encourage fluids/nutrition Maintain pain control Monitor NGT INDIVIDUALIZED FALL PREVENTION INTERVENTIONS: Patient-specific fall risk factors per assessment: [current deficits]: Lines/drains, pain, unfamiliar environment, recent surgery Assistance [level of assistance required for transfers and ambulation]: 1x assist w/ FWW Supervision [direct monitoring required during toileting and ADLs]: Eyes on/hands on Surveillance [continuous indirect monitoring]: Masimo, purposeful rounding, call glover in reach Patient-specific fall prevention interventions for sensory deficits provided, if applicable: [X] Yes, environmental modifications, lights adjusted to task, non- skid socks CPG GOAL OUTCOME EVALUATION: Ongoing Clarissa Spivey OT - 04/25/2020 4:01 PM EST Occupational Therapy Evaluation Patient profile: Jahaira Montgomery is a 59 y.o.female with mx abdominal surgeries now Day of Surgery s/p ex lap with hernia reduction with primary repair of defect for incarcerated ventral hernia resulting in SBO. Past Medical History: Diagnosis Date ??? Chronic [...] 27.9) performed by Miryam Wiley MD at [facility] OR ??? PRO COLONOSCOPY, DIAGNOSTIC N/A 08/18/2019 COLONOSCOPY, DIAGNOSTIC performed by Emigdio Lanier MD at [facility] ENDOSCOPY ??? PRO CYSTOSCOPY, INSERT URETERAL STENT Right 09/14/2019 CYSTO, STENT PLACEMENT INTRAOP, TEMPORARY (WRVU 2.82) performed by Werner Fournier MD at [facility] OR ??? PRO MOBILIZE SPLENIC FLEX N/A 09/14/2019 @MOBILIZATION OF SPLENIC FLEXURE (WRVU 2.23) performed by Miryam Wiley MD at [facility] OR ??? PRO OMENTAL FLAP, INTRA-ABDOMINAL 09/14/2019 @OMENTAL FLAP, INTRA-ABDOMINAL (WRVU 6.54) performed by Miryam Wiley MD at [facility] OR ??? PRO SIGMOIDOSCOPY, DIAGNOSTIC N/A 09/14/2019 SIGMOIDOSCOPY, FLEXIBLE W/WO SPECIMEN BY BRUSHING OR WASHING (WRVU 0.84) performed by Miryam Wiley MD at [facility] OR ??? TUBAL LIGATION Social History: Patient lives with brother and brother's partner in a house. There is an apartment attached to the property where Pt other brother and hicegj-ws-ifx live. Pt gcuomh-jk-plp and brother's partner are home at all times and can assist Pt as needed. Home Setup: Pt has no CONSTANTINE. Pt has walk in shower with chair. Pt sleeps in a regular flat bed. DME: Walker (let sister zurdo) Baseline ADL/Mobility: Pt does not work, but is typically independent with all ADL and IADL routines. Precautions/Special Considerations: Full code, NPO, NGT to suction, abdominal incision, pat Subjective: I want to walk, because then I will be closer to getting home Objective: Seen today for OT evaluation. Cognitive Status/Behavior: ?? Behavior / Mood: alert and cooperative ?? Alert and oriented to: person, place, time and situation ?? Follows commands: multi step and 100% of the time ?? Attention: WFL ?? Safety awareness: WFL Vision & Perception: ?? corrective lenses bicycle i assembler Communication: WFL Range of motion, strength, coordination: Hand dominance: right Bilateral UEs are within functional limitations LE limitations: WFL Sensation: Pt denied any changes Activities of Daily Living: Self-feeding: Supervision for clear liquids Grooming: Supervision to comb hair and wipe face Dressing: Pt issued sock aid and able to use to don socks Bathing: Did not assess; issued long handled sponge Toileting: Transfer: Supervision with FWW Hygiene: Anticipate supervision Functional Mobility: Supine to sit: CGA with HOB elevated and extended time using log roll technique Sit to stand: CGA and later in session supervision Ambulation: CGA to Supervision ~150 ft with FWW (amilcar walker) Stand to sit: Supervision Sit to supine: Did not assess; Pt left up in recliner chair with all needs within reach Balance: Sitting balance: Good Standing balance: Good Vitals: BP: 138/69 02 above 92% of RA HR 80-100 during session Pain: Pt did not rate, but reported pain with coughing Skin: Incision CDI, IV noted with bloody drainage; RN aware Education: patient have been educated on Role of occupational therapy/rehabilitation, Transfers, Assistive device/technique, Adaptive equipment training, ADL, Positioning, Safety, Functional Mobility, Balance, Recommendations and Discharge planning and verbalize understanding. Patient status, treatment, and mobility recommendations discussed with nursing. Assessment: Pt has been seen for occupational therapy evaluation. Jahaira Montgomery presents with the following performance skill deficits and client factors: increased pain, decreased activity tolerance, precautions/bracing and skin integrity. These performance deficits have led to activity limitations and participation restrictions in the following areas of occupation: dressing, bathing, self-feeding, transfers/mobility, home management and community mobility. Pt seen for OT evaluation. Pt presented asleep in bed, but was agreeable to services. Pt participated in transfer OOB, in sponge bathing, LB dressing and transfers. Pt ambulated around unit with FWW. Anticipate Pt will be safe to return home with assistance when medically stable. Pt would benefit from further inpatient OT interventions to address performance deficits and maximize participation and independence with occupations of daily living. Equipment needs at discharge: ? FWW if Pt can't get access to the one she loaned out Anticipated Discharge Disposition (OT): home with assist Other Recommendations: ?? Utilize upright chair position using bed features or transfer to recliner chair as appropriate with supervision with FWW, ambulate as tolerated ?? Encourage participation in ADL's by providing set up A on tray table and physical assist only as needed Other Recommendations: No other consults recommended at this time Goals: To be achieved by 05/10/20. 1. Pt will be conditional independent for LB dressing routines with AE as needed at seated/standing levels 2. Pt will be conditional independent for toileting routine at ambulatory level 3. Pt will be conditional independent for simple snack prep at ambulatory level 4. Pt will be independent for HEP for BUEs 5. Pt will be able to stand for 8 minutes to perform sink level grooming task with LRAD?? Plan: OT: Therapy Frequency (OT): 1-2 more times Planned OT interventions: Role of occupational therapy/rehabilitation, Transfers, Assistive device/technique, Adaptive equipment training, ADL, Exercise, Positioning, Safety, Precautions/Protocol, Functional Mobility, Activity pacing/Energy conservation, Home Program, Home Management, Balance, Recommendations, Family training and Discharge planning. Total Minutes, Occupational Therapy: 46(1 low complexity evaluation and 1 SC) 2017 OT Evaluation Code Rationale: ?? Diagnosis [...] and measurable assessment of functional outcome. Pager: [phone] Clarissa Spivey OT 04/25/2020 Occupational Therapy Rehabilitation Department Chary Brunner MD - 04/25/2020 12:15 PM EST Acute Care Surgery Daily Progress Note ID:[id number] y.o. Female admitted with incarcerated ventral hernia with SBO on 04/24/2020 Problem List: - Acute pain - incarcerated ventral hernia - SBO Procedures: Procedure(s) (LRB): @EXPLORATORY LAPAROTOMY, WITH/WITHOUT BIOPSY(S) (WRVU 12.54) (N/A) HERNIA REPAIR, VENTRAL OR INCISIONAL, RECURRENT, INCARCERATED (WRVU 15.53) (N/A) Secondary Issues: Past Medical History: Diagnosis Date ??? Chronic pain Chronic bilat knee (ACL) pain ??? Claudication left leg no acl right leg torn acl ??? Diverticulitis ??? Syncope fainted 10 years ago from heat 24 Hour Events: OR for ex lap with ventral hernia reduction and primary repair NGT to LCWS Current Medications: ??? sodium chloride 0.9 % (flush) 5 mL Intravenous BID ??? nicotine 1 patch Transdermal Daily And ??? Patch Verification 1 patch Transdermal BID And ??? [START ON 04/26/2020] nicotine 1 patch Transdermal Daily ??? heparin (porcine) 5,000 Units Subcutaneous Q8H MICHAEL ??? acetaminophen 1,000 mg Intravenous Q8H MICHAEL Vital Signs: VITALS (24hr Range): Temp Temp: [36.1 ??C (97 ??F)-36.7 ??C (98.1 ??F)] , HR Heart Rate: [59-77] , BP BP: (92-154)/(52-129) , RR Resp: [9-16] , SpO2 SpO2: [90 %-98 %] I/O: Intake/Output Summary (Last 24 hours) at 04/25/2020 1357 Last data filed at 04/25/2020 1300 Gross per 24 hour Intake 887 ml Output 765 ml Net 122 ml Physical Exam: GEN: NAD, pleasant CV: RRR PULM: breathign comfortably on 2L NC GI: obese, soft, appropriately tender to palpation : pat Labs: Recent Labs 04/25/20 0954 04/24/20 2234 WBC 16.6* 13.8* HGB 14.4 14.9 HCT 44.1 45.1 PLATELET 244 274 Recent Labs 04/25/20 0954 04/24/20 2234 NA 138 137 K 4.2 3.9 CL 104 105 CO2 24 22 BUN 17 19* CREATININE 0.62* 0.60* GLUCOSE 152 120 CALCIUM 8.6 8.5 MAGNESIUM -- 0.82 PHOS -- 2.9 Microbiology: Microbiology Results (last 7 days) Procedure Component Value - Date/Time COVID-19 PCR [[id number]] Collected: 04/25/20 0651 Lab Status: Final result Specimen: Nasopharyngeal Swab Updated: 04/25/20 1003 Rapid SARS-CoV-2 RNA Not Detected Comment: This result [...] using the Simplexa COVID-19 Direct Assay by ACE as authorized by the FDA issued Emergency [...] Department of Pathology and Laboratory Medicine at [facility], certified under the Clinical Laboratory [...] fact sheets at the following FDA website: https://www.fda.gov/medical-devices/kygjubhswqu-uggvosx-2574-kwfap-93-wazbcaabb- rjs-ptqqfoevnoduzq-qsqtzrr-devices/qkmgi-smqrgcqknnf-ftuf SARS-CoV-2 Source [facility] Swab Microbiology Results (last 6 months) Procedure Component Value - Date/Time COVID-19 PCR [[id number]] Collected: 04/25/20 0651 Lab Status: Final result Specimen: Nasopharyngeal Swab Updated: 04/25/20 1003 Rapid SARS-CoV-2 RNA Not Detected Comment: This result [...] using the Simplexa COVID-19 Direct Assay by ACE as authorized by the FDA issued Emergency [...] Department of Pathology and Laboratory Medicine at [facility], certified under the Clinical Laboratory [...] fact sheets at the following FDA website: https://www.fda.gov/medical-devices/zlmgrqgcnmb-censbkf-7434-vszhe-29-caxgvlulh- iiq-oqowrtsieaonns-mvdefsk-devices/gbmla-xyyvzdaxlzy-jeyv SARS-CoV-2 Source LABORATORY APPARATUS GLASS BLOWER Swab New Imaging: Results for orders placed or performed during the hospital encounter of 04/24/20 Request For 2nd Read CT Abdomen & Pelvis (Exam End: 04/24/2020 10:47 PM) Impression 1. Small bowel obstruction with transition point at the site of a paraumbilical hernia containing loops of distal small bowel. Wall thickening and adjacent edema suggests signs of inflammation concerning for ischemia and bowel incarceration. 2. No free intraperitoneal air or loculated fluid. Preliminary report signed by: Nikos Hill at 04/24/2020 11:21 PM I have personally reviewed the image(s) and the resident's interpretation and agree with the findings, Liborio Lea MD at 04/25/2020 1:04 AM Thank you for letting us participate in the care of this patient. For questions regarding this report, please contact the number below. Abdomen 1 view (Generic) (Exam End: 04/25/2020 8:16 AM) Impression 1. Nasogastric tube tip is in the stomach. 2. Dilated small bowel unchanged from prior, consistent with known small bowel obstruction. Thank you for letting us participate in the care of this patient. For questions regarding this report, please contact the number below. Assessment: 59 y.o.female with mx abdominal surgeries now Day of Surgery s/p ex lap with hernia reduction with primary repair of defect for incarcerated ventral hernia resulting in SBO. Doing well post-op. Discontinue zosyn. NGT to remain in place until ROBF. PT/OT Plan: Neuro: tylenol CV: HDS Pulm: wean O2 as tolerated, nicotine patch GI/FEN: NPO, NGT to LCWS, NS 100cc/hr, zofran : pat Heme: SCD, SQH ID: [email or web address] Zosyn Consults: f/u PT/OT recs, tobacco cessation Dispo: floor Patient Lines/Drains/Airways Status Active Tubes/Lines/Drains Name: Placement date: Placement time: Site: Days: Peripheral IV Line - Single Lumen 04/24/20 median cubital vein (antecubital fossa), right 18 gauge 04/24/20 -- 1 Urethral Catheter 04/25/20 0603 hydrophilic coated;latex 14 5 10 04/25/20 0603 less than 1 Naso/Oral Tube 04/25/20 0702 nasogastric right nostril 04/25/20 0702 less than 1 Incidental Findings: - none [] Incidental Findings Form Completed Chary Brunner MD 04/25/2020 Acute Care Surgery Pager [phone] Ebony Ramirez RN - 04/25/2020 9:50 AM EST Pt arrived to the floor around 0930. AAOx4. VSS. Pt oriented to unit, room, and staff. See DocFlow for assessment. Will continue to monitor. Report received from Rosario AVERY, PACU. Rosario Jennings RN - 04/25/2020 7:12 AM EST Pt arrived to PACU from OR in bed. Attached to monitors and alarms set appropriately. NGT to low continuous wall suction with yellow output. Midline incision CDI. Pat draining cloudy yellow urine. 0830: Pt reports mild soreness in abdomen but most bothered by throat. Team paged for numbing spray. 0900: Report given to GENA Beck. documented in this encounter H&P Notes Liberty Swann MD - 04/24/2020 10:20 PM EST [facility] Department of Surgery History and Physical Chief Complaint: abdominal pain HPI: Jahaira Montgomery is a 59 y.o. female with a history multiple abdominal surgeries most recently being Lucy's procedure on 03/19/19 at [facility] for complicated diverticulitis and subsequently underwent reversal on 09/14/19 here at [facility]. She reports that she overall had been doing quite well but began to have abdominal pain on Thursday. She reports that she wound occasionally (around 1x/month) have a similar discomfort and notice a bulge, but that this was usually very short lived and not associated w/ nausea or vomiting.The pain she developed on Thursday however was of greater intensity and progressively worsened. Additionally she notes that this episode was associated w/ nausea and vomiting. She denies anyblood in her vomitus. She denies any associated fever or chills. She notes that over the last 24 to 48 hours she is not had any bowel movements nor is she passing flatus. Past Medical History Past Medical History: Diagnosis [...] 27.9) performed by Miryam Wiley MD at [facility] MAIN OR ??? PRO COLONOSCOPY, DIAGNOSTIC N/A 08/18/2019 COLONOSCOPY, DIAGNOSTIC performed by Emigdio Lanier MD at [facility] ENDOSCOPY ??? PRO CYSTOSCOPY, INSERT URETERAL STENT Right 09/14/2019 CYSTO, STENT PLACEMENT INTRAOP, TEMPORARY (WRVU 2.82) performed by Werner Fournier MD at [facility] MAIN OR ??? PRO MOBILIZE SPLENIC FLEX N/A 09/14/2019 @MOBILIZATION OF SPLENIC FLEXURE (WRVU 2.23) performed by Miryam Wiley MD at [facility] MAIN OR ??? PRO OMENTAL FLAP, INTRA-ABDOMINAL 09/14/2019 @OMENTAL FLAP, INTRA-ABDOMINAL (WRVU 6.54) performed by Miryam Wiley MD at [facility] MAIN OR ??? PRO SIGMOIDOSCOPY, DIAGNOSTIC N/A 09/14/2019 SIGMOIDOSCOPY, FLEXIBLE W/WO SPECIMEN BY BRUSHING OR WASHING (WRVU 0.84) performed by Miryam Wiley MD at [facility] MAIN OR ??? TUBAL LIGATION Medications No current facility-administered medications on file prior to encounter. Current Outpatient Medications on File Prior to Encounter Medication Sig Dispense Refill ??? acetaminophen (Tylenol Extra Strength) 500 mg [...] Cigarettes ??? Smokeless tobacco: Never Used Substance and Sexual Activity ??? Alcohol use: Never Comment: almost 20 years ??? Drug use: Never ??? Sexual activity: Not on file Other Topics Concern ??? Not on file Social History Narrative ??? Not on file Social Determinants of Health Financial Resource Strain: ??? Difficulty of Paying Living Expenses: Not on file Food Insecurity: ??? Worried About Running Out of Food in the Last Year: Not on file ??? Ran Out of Food in the Last Year: Not on file Transportation Needs: ??? Lack of Transportation (Medical): Not on file ??? Lack of Transportation (Non-Medical): Not on file Physical Activity: ??? Days of Exercise per Week: Not on file ??? Minutes of Exercise per Session: Not on file Review of Systems Pertinent review of systems as per HPI Physical Exam Temp: [36.7 ??C (98.1 ??F)] Heart Rate: [69] Resp: [14] BP: (154)/(129) SpO2: [95 %] Heart Rate from SpO2: -- No intake/output data recorded. General: Resting in stretcher, no acute distress HEENT: Normocephalic/atraumatic CV: Regular rate Resp: Nonlabored breathing on room air Abd: Obese, soft/compressible, multiple well-healed incisions, exquisite tenderness to palpation between the previous midline laparotomy and prior stoma site. No overlying skin changes. Ext: Warm and well-perfused,+ lower extremity edema Neuro: Alert, oriented, appropriately conversant Labs No results found for this or any previous visit (from the past 24 hour(s)). Imaging CT abdomen and pelvis IMPRESSION 1. Small bowel obstruction with transition point at the site of a paraumbilical hernia containing loops of distal small bowel. Wall thickening and adjacent edema suggests signs of inflammation concerning for ischemia and bowel incarceration. 2. No free intraperitoneal air or loculated fluid. Assessment: This is a 59 y.o. female smoker with a history notable for multiple prior abdominal surgeries presenting with an incarcerated hernia. Given the duration of time this appears to have been incarcerated we will plan to proceed to the operating room for exploratory laparotomy, hernia reductionand possible small bowel resection. We discussed the nature of her condition and that the goal is relief of the obstruction, and resection of any nonviable bowel. She understands that she has an extremely high risk of hernia recurrence. She is currently hemodynamically stable and we will plan on resuscitating with IV fluids and initiating IV antibiotics in anticipation for the operating room. Plan: -Proceed to the OR for exploratory laparotomy, hernia reduction and possible small bowel resection. -Maintenance IV fluids LR at 100 an hour -IV Zosyn -Admit to acute care surgery, floor status Elliott Kim MD 04/24/2020 General Surgery Attending Addendum I have seen and examined the patient and reviewed the history documented above and I agree with the details as written. I have reviewed the laboratory data and viewed the pertinent imaging. The assessment and plan were formulated in discussion with me and I agree with them as documented. 59 yo female with incarcerated ventral hernia causing SBO. Unable to reduce this area and it remainsexquisitely tender. The risks, benefits and alternatives to exploration and ventral hernia repair with possible need for bowel resection were discussed and consent was obtained. Will proceed urgently to the OR. Tonya Swann MD documented in this encounter ED Notes Chel Iqbal RN - 04/25/2020 4:53 AM EST To OR via stretcher accompanied by Anesthesia. Ronel Troncoso RN - 04/25/2020 4:39 AM EST Report given to floor Ronel Troncoso RN - 04/25/2020 2:54 AM EST Pt awoken from sleep, remains A/O, states that discomfort is tolerable at this time. MD ordered for NG tube placement related to potential delay of procedure to keep stomach decompressed. Pt reports RNs at last hospital attempted x3 with no success and that MD would place NG tube in OR (also reports hx deviated septum, can only place NG tube in left nostril). executive vice president of sales states that as long as pt is willing, may attempt x1. VSS. Will continue to monitor and review plan with pt. Kimberly Weber MD - 04/24/2020 10:29 PM EST ED Resident Note Jahaira Montgomery is an 59 y.o. female who presents to the ED with: Chief Complaint Patient presents with ??? Hospital Transfer ??? Abdominal Pain I saw this patient on 04/25/2020. History is from the patient at the bedside and chart review. HPI Jahaira Montgomery is a 59 y.o. female with history of diverticulitis, cholecystectomy, , partialcolectomy with colostomy, hernia repair who presents to the Emergency Department transfer from [facility] concern about bowel obstruction. She reports 2 days of abdominal pain, p.o. intolerance of nonbloody nonbilious vomiting which prompted her to present to the ER where she had work-up remarkable for white count of 19.[address] showing ?SBO/incarcerated hernia. At [facility] she received IV fluids, Flagyl, morphine, Zofran. W hemoglobin 17, platelets 340. Lactate 1.3. Review of Systems: Review of Systems Constitutional: Negative for chills and fever. HENT: Negative. Respiratory: Negative for cough, chest tightness, shortness of breath and wheezing. Cardiovascular: Positive for leg swelling (chronic). Negative for chest pain. Gastrointestinal: Positive for abdominal pain, nausea and vomiting. Negative for diarrhea. Genitourinary: Negative. Musculoskeletal: Negative. Allergic/Immunologic: Negative for immunocompromised state. Neurological: Negative. Negative for dizziness, syncope, facial asymmetry, weakness and numbness. Psychiatric/Behavioral: Negative. Physical Exam: Patient Vitals for the past 24 hrs: BP Temp Temp src Pulse Resp SpO2 Weight 04/25/20 0400 122/65 -- -- 62 -- 92 % -- 04/25/20 0300 123/89 -- -- 74 -- 94 % -- 04/25/20 0200 101/58 -- -- 60 -- 90 % -- 04/25/20 0100 118/72 -- -- 61 -- 95 % -- 04/25/20 0000 135/56 -- -- 59 -- 97 % -- 04/24/20 2300 152/59 -- -- 70 15 94 % -- 04/24/202244 129/56 -- -- 66 11 93 % -- 04/24/202229 92/72 -- -- 73 14 94 % -- 04/24/202214 120/62 -- -- 67 12 94 % -- 04/24/202209 (!) 154/129 36.7 ??C (98.1 ??F) Oral 69 14 95 % 83.9 kg (185 lb) GEN: No acute distress. HEENT: Oropharynx clear, pink, and moist. PULM: No resp distress. CV: Normal rate. ABD: Soft, nondistended, nttp. MSK: No gross deformities. NEURO: AAOx3. PERRL. No gross CN deficits. Light touch intact face & body. Moves extremities equally. PSYCH: Normal mood and thought pattern. SKIN: No rashes. ED Course: - Patient seen under the supervision of the attending physician. - Medications, allergies, and past medical history reviewed. Recent Results (from the past 24 hour(s)) Basic Metabolic Panel (non-fasting) Result Value Ref Range Glucose Lvl 120 65 - 199 mg/dL BUN 19 (H) 8 - 18 mg/dL Creatinine 0.60 (L) 0.70 - 1.20 mg/dL Sodium 137 135 - 145 mmol/L Potassium 3.9 3.5 - 5.0 mmol/L Chloride 105 98 - 107 mmol/L CO2 22 22 - 31 mmol/L Anion Gap 10 5 - 15 mmol/L Calcium 8.5 8.5 - 10.5 mg/dL Estimated GFR 101 >=60 mL/min/1.73 m?? Magnesium Result Value Ref Range Magnesium 0.82 0.69 - 1.07 mmol/L Phosphorus Result Value Ref Range Phosphorus 2.9 2.5 - 4.5 mg/dL Lactate, whole blood, send to lab ([facility] [place]) Result Value Ref Range Lactate WB 1.4 0.5 - 2.2 mmol/L Hemogram Result Value Ref Range WBC 13.8 (H) 4.0 - 9.5 x10(3)/mcL RBC 4.83 4.00 - 5.21 x10(6)/mcL Hemoglobin 14.9 11.7 - 15.5 gm/dL Hematocrit 45.1 35.7 - 45.8 % MCV 93.4 82.6 - 94.4 fL MCH 30.8 27.1 - 32.0 pg MCHC 33.0 31.7 - 35.0 gm/dL Platelets 274 145 - 357 x10(3)/mcL RDWSD 44.8 37.0 - 46.0 fL RDWCV 13.1 11.5 - 14.1 % MPV 9.4 7.6 - 12.9 fL nRBC % Auto 0.0 % nRBC Abs Auto 0.000 0.000 - 0.000 x10(3)/mcL Differential, Automated Result Value Ref Range Neutrophils % 60.5 % Neutr Abs (ANC) 8.32 (H) 1 - 6 x10(3)/mcL Lymphocytes % 28.0 % Lymphocytes Abs 3.8 (H) 0.9 - 3.2 x10(3)/mcL Monocytes % 7.9 % Monocyte Abs 1.1 (H) 0.3 - 0.9 x10(3)/mcL Eosinophils % 2.3 % Eosinophils Abs 0.3 0.0 - 0.4 x10(3)/mcL Basophils % 0.5 % Basophils Abs 0.1 0.0 - 0.1 x10(3)/mcL Immature Gran % 0.80 % Shantell Gran Abs 0.11 (H) 0.00 - 0.04 x10(3)/mcL Blue Tube HOLD Result Value Ref Range Blue Hold Sample in lab. Gold Tube HOLD Result Value Ref Range Gold Hold Sample in lab. Martínez Tube Hold Result Value Ref Range Martínez Hold Sample in lab. Results for orders placed or performed during the hospital encounter of 04/24/20 Request For [address]nd Read CT Abdomen & Pelvis (Exam End: 04/24/2020 10:47 PM) Narrative EXAMINATION: REQUEST FOR 2ND READ CT ABDOMEN AND PELVIS CLINICAL HISTORY: Hernia; What Modality is the exam? CT Scan; Body Part (please add comments as necessary): AP; Sending Institution [facility]; Date of exam [id number]; I believe a reinterpretation of this exam may alter care of Patient. Yes TECHNIQUE: Outside hospital contrast enhanced CT of the abdomen and pelvis performed at [facility] on 04/24/2020 at 3:45 PM. Reinterpretation requested by the ordering provider, Dr. Liberty Swann. COMPARISON: CT abdomen pelvis 04/23/2019 FINDINGS: Lower chest: Bibasilar atelectasis. Liver: Borderline hepatomegaly. Normal attenuation without lesions. Bile ducts: Nondilated. Gallbladder: Surgically absent. Pancreas: Normal attenuation without ductal dilatation. Spleen: Normal. Adrenals: Normal. Kidneys: Symmetric nephrograms. No hydronephrosis or renal calculus. Subcentimeter hypodense renal cortical lesions are too small to characterize but likely represent cysts. Urinary Bladder: Normal. Vasculature: No aneurysm. Lymph Nodes: No enlarged lymph nodes. Bowel: The patient is status post partial colectomy. Dilated small bowel loops are present in the anterior abdomen with transition point at the site of a large paraumbilical hernia containing loops distal small bowel. There is segmental wall thickening of small bowel loop at this site. The previously noted left lower quadrant colostomy has been reversed during interval time period. Sigmoid diverticulosis without evidence of acute diverticulitis. The appendix is not visualized. Peritoneum and mesentery: No free air or loculated fluid. Small amount of ascites is noted adjacent to loops of bowel within the paraumbilical hernia. Abdominal wall: Local hernia containing loops of small bowel, with adjacent fat stranding suggesting inflammatory edema. Reproductive organs: The uterus is surgically absent. Osseous structures: No suspicious lesions. Impression 1. Small bowel obstruction with transition point at the site of a paraumbilical hernia containing loops of distal small bowel. Wall thickening and adjacent edema suggests signs of inflammation concerning for ischemia and bowel incarceration. 2. No free intraperitoneal air or loculated fluid. Preliminary report signed by: Nikos Hill at 04/24/2020 11:21 PM I have personally reviewed the image(s) and the resident's interpretation and agree with the findings, Liborio Lea MD at 04/25/2020 1:04 AM Thank you for letting us participate in the care of this patient. For questions regarding this report, please contact the number below. Assessment and Plan: MDM 59 y.o. female with history of diverticulitis, cholecystectomy, , partial colectomy with colostomy, hernia repair who presents to the Emergency Department transfer from [facility] with concern about bowel obstruction. Upon arrival the patient was well-appearing and hemodynamically stable with exam showing significantabdominal tenderness. Work-up at the outside hospital significant for leukocytosis and CT scan reportedly showed umbilical hernia with trapped small bowel loops causing SBO. Surgery evaluated the patient and will admit her with plan to go to the operating room. She receivedFlagyl at the outside hospital and reported well- controlled pain and nausea while in the emergency room here. Admitted to general surgery in stable condition. Kimberly Weber MD Resident 04/25/20 0528 Associated attestation - Hanane Song MD - 04/25/2020 12:28 PM EST ED ATTENDING ATTESTATION The patient was seen in conjunction with the resident physician. I have independently performed the onofre portions of the history and physical exam. I have personally reviewed nursing notes, vital signs,and diagnostic studies including labs, imaging studies and EKGs. I have discussed the details of the case with the resident and agree with the assessment and plan as described in the resident's note, unless stated otherwise in my separate note. Did this case involve critical care? No Hanane Song MD - 04/24/2020 10:16 PM EST Patient with history of diverticulitis status post patient with history of diverticulitis status post Chief Complaint Patient presents with ??? Hospital Transfer ??? Abdominal Pain The history is provided by the patient and medical records. 59 yo f with h/o diverticulitis status post Ballard's pouch in March 2019 and outside hospital who had reversal in September 2019 who presented with 2-1/2 days of lower abdominal pain constant with multiple episodes of nonbloody nonbilious vomiting to an outside hospital. She was found to have an SBO gladis site of a hernia although full interpretation of the CT scan is not available at this time. She states that she is passing gas and last moved her bowels normal amount 24 hours ago. She denies any fevers chills chest pain shortness of breath cough hemoptysis or symptoms. They attempted NG tube placement x3 at the outside hospital without success and gave her morphine Flagyl and Zofran. Past Medical History: Diagnosis Date ??? Chronic pain Chronic bilat knee (ACL) pain ??? Claudication left leg no acl right leg torn acl ??? Diverticulitis ??? Syncope fainted 10 years ago from heat No Known Allergies Review of Systems Constitutional: Negative for fever. Respiratory: Negative for cough and shortness of breath. Cardiovascular: Negative for chest pain. Gastrointestinal: Positive for abdominal distention, abdominal pain, nausea and vomiting. Negative for diarrhea. Skin: Negative for rash. All other systems reviewed and are negative. Physical Exam Vitals and nursing note reviewed. Constitutional: Appearance: She is well-developed. HENT: Head: Normocephalic and atraumatic. Cardiovascular: Rate and Rhythm: Normal rate and regular rhythm. Pulses: Normal pulses. Heart sounds: Normal heart sounds. Pulmonary: Effort: Pulmonary effort is normal. No respiratory distress. Breath sounds: Normal breath sounds. Abdominal: General: There is distension. Palpations: Abdomen is soft. Tenderness: There is abdominal tenderness. Comments: Significant ttp r.mid and L lq no R/G, diminished BS Musculoskeletal: General: Normal range of motion. Cervical back: Normal range of motion and neck supple. Skin: General: Skin is warm and dry. Neurological: Mental Status: She is alert and oriented to person, place, and time. Comments: WILLARD Psychiatric: Behavior: Behavior normal. Thought Content: Thought content normal. Judgment: Judgment normal. Procedures MDM Number of Diagnoses or Management Options Amount and/or Complexity of Data Reviewed Clinical lab tests: reviewed Tests in the radiology section of CPT??: reviewed Tests in the medicine section of CPT??: reviewed Review and summarize past medical records: yes Discuss the patient with other providers: yes Patient Progress Patient progress: stable Labs Reviewed BASIC METABOLIC PANEL (NON-FASTING) - Abnormal; Notable for the following components: Result Value BUN 19 (*) Creatinine 0.60 (*) All other components within normal limits HEMOGRAM - Abnormal; Notable for the following components: WBC 13.8 (*) All other components within normal limits DIFFERENTIAL, AUTOMATED - Abnormal; Notable for the following components: Neutr Abs (ANC) 8.32 (*) Lymphocytes Abs 3.8 (*) Monocyte Abs 1.1 (*) Shantell Gran Abs 0.11 (*) All other components within normal limits RAPID COVID-19 PCR ([facility]) CBC (WITH DIFF) MAGNESIUM PHOSPHORUS LACTATE, WHOLE BLOOD, SEND TO LAB ([facility] [place]) BLUE TUBE HOLD GOLD TUBE HOLD MARTÍNEZ TUBE HOLD ED Course: Patient with history of diverticulitis status post Lucy pouch with revision last September now with 2and half days of lower abdominal pain and nausea and vomiting found to have a hernia at the incisional site causing an SBO and transferred here. Plan for pain control continue maintenance fluids and surgical consult. Patient was seen by surgery and will be admitted to their service. plan for OR. ED Course as of Apr 24 2325 Tue Apr 24, 2020 2242 Surgery aware 2303 Repeat BP improved Hanane Song MD 04/24/202326 documented in this encounter Miscellaneous Notes Consult Note - Joshua Medina RN - 04/27/2020 11:25 AM EST TOBACCO DEPENDENCE TREATMENT NOTE 04/27/2020 Name: Jahaira Montgomery Date of : 1960 Reason for visit: Jahaira Montgomery is a current everyday smoker and was referred for smoking cessation counseling. The following information has been reviewed with the patient: Social History: Marital status: Single ETOH: Denies Drug use: Denies Caffeine: Denies Smoking history: Type of tobacco used: ( ) Smokeless tobacco ( ) e-cigarette (X ) Cigarettes Brand currently smoking:Regular generics Current amount: 0.75 ppd Age initiated: 18 Years smoked: ~42 Most smoked: 2 ppd Previous quit attempts and methods: Chantix (took for three days and discontinued 2/2 vivid nightmares), cold-turkey, NRT (Those patches didn't do anything for me.) Most recent quit attempt: When I was with my first child I quit for 2 years cold-turkey. Are there other smokers in the home: Pt lives with her brother and ROLANDO (ROLANDO +smoker). All smoking isoutside the home. Are there children in the home: No. Pt does have a son that smokes that visits everyother weekend with 4 yr old grandson. Pt does not smoke when they are visiting. What will be different this time: I never knew half the stuff about the patches and the gum that you've told me. I really want to quit smoking and give the patches another shot. Reasons for quitting: My grandson is 4 and he's my pride and paula. I really want to live as long as I can to watch him grow. I've got enough things wrong with me, I don't need to add smoking-related illnesses to the mix. Triggers for smoking: My idle mind. I smoke when I'm bored. I'm petrified to go out in public and Mathieu home alone during the day. Ready to set a quit date: 04/27/2020 Importance/Confidence Scale (How important is it for her to quit/How confident patient is that she can quit on scale of 0(Not at all important)-10(Highest importantance): 12/21 What would help increase confidence: Now that I know how to use the patches and the gum, I think I'll have an easier time. NICOTINE DEPENDENCE 0 Points 1Points 2 Points 3 Points Score 1.How soon after you wake do you smoke your first cigarette? After 60 minutes 31-60 minutes minutes 6-30 minutes Within 5 minutes 3 2. Do you find it difficult to refrain from smoking in places where it is forbidden ex [facility] No Yes0 3. Which cigarette would you hate to give up ? All others The first one in the morning 1 4. How many cigarette do you smoke a day ? 10 or less 11-20 21-30 30 or more 1 Do you smoke more frequently during the first hour after waking than the rest of the day? No Yes 1 6. Do you smoke if you are so ill that you are in bed all day ? No Yes 0 Fagerstrom Score: 6 Classification: 0-2 Very low 3-4 Low 5 Moderate 6-7 High 8-10 Very high Stage of Change: Preparation Precontemplative: Contemplative: Preparation: Action: Maintenance: Assessment/Plan: Jahaira Montgomery has a Fagerstrom Score of 6, indicating a high dependence on Nicotine.I reviewed the physiology of addiction as well as apparent health risks specific for her. I advised her that quitting smoking is one of the best things she can do for her health now and in the future. I discussed the options for treatment including NRT, Zyban and Chantix. I reviewed possible side effects of therapy. I stressed that medication alone is not optimum but used in conjunction with behavioral counseling will add to success for cessation. The patient decided that the best course of action for her would be NRT. Pt is not currently wearing NRT, though it is ordered, she has been declining. She was provided one box of 21 mg nicotine patches and one boxy of 2 mg nicotine gum. Instructions for each were reviewed and will be included in AVS for future reference. Orders for additional NRT have been pended and request sent to primary team to release with discharge orders. We reviewed the services available through the [place] quit line and patient was provided with the contact information . I reviewed several tips for helping with quitting including the 4D's, using straws cut the length of cigarettes, cinnamon sticks, flavored toothpicks, sugar free candy, etc. The patient has also been provided with a Tobacco Treatment Program brochure and the contents have been reviewed with her. The patient has my card with my contact information and has been encouraged to call if she has additional questions or concerns. This office will follow-up in one month to assess tobacco use and provide additional support/resources, if needed. Thank you. Joshua Medina, MSN, RN-, [facility] Tobacco Bottling Line Operator [facility] Pager #[phone] Plan of Care - Chiquita Morel RN - 04/27/2020 6:26 AM EST Temp: [36.3 ??C (97.3 ??F)-36.7 ??C (98.1 ??F)] Heart Rate: [58-82] Resp: [14-18] BP: (120-162)/(56-81) SpO2: [91 %-94 %] Heart Rate from SpO2: [61 bpm-82 bpm] OUTCOME EVALUATION NOTE: OUTCOME SUMMARY: Pt had a uneventful night. AxO. RA VSS. Ambulates independently. Adequate intake and output..Had twoepisode of loose stool this shift.. Denies any pain/discomfort.Midline incision CDI. Continue monitor pt. PLAN MOVING FORWARD: D/C plan today. INDIVIDUALIZED FALL PREVENTION INTERVENTIONS: Patient-specific fall risk factors per assessment: [current deficits]: Weakness Assistance [level of assistance required for transfers and ambulation]: Independent Supervision [direct monitoring required during toileting and ADLs]: Hands on Surveillance [continuous indirect monitoring]: Safety rounds done, Call glover within reach. Patient-specific fall prevention interventions for sensory deficits provided, if applicable: [X] N/A CPG GOAL OUTCOME EVALUATION: Ongoing Plan of Cherry - Ebony Ramirez RN - 04/26/2020 3:18 PM EST OUTCOME SUMMARY: Jahaira had a good day. AAOx4. VSS. Afebrile. Pt denies nausea. NGT discontinued and pat d/c, PVRs charted. Pain well controlled with scheduled meds. Pt voiding adequate amounts via BR, PVRs charted. Pt passing gas; had 2x BMs this shift. Incisions CDI. Pt ambulated in halls with OT. Diet advanced to regular diet, tolerated clears well. IV capped and fluids D/C. Will continue with the current plan ofcare and update as needed. Patient Vitals for the past 8 hrs: BP Temp Temp src Resp SpO2 04/26/20 1138 162/81 36.3 ??C (97.3 ??F) Oral 16 94 % 04/26/20 0736 121/56 -- -- -- 93 % 04/26/20 0730 -- 36.7 ??C (98.1 ??F) Oral 14 -- PLAN MOVING FORWARD: Encourage ambulation Encourage fluids/nutrition Maintain pain control D/C planning ?? INDIVIDUALIZED FALL PREVENTION INTERVENTIONS: ?? Patient-specific fall risk factors per assessment: [current deficits]: Lines/drains, pain, unfamiliar environment, recent surgery ?? Assistance [level of assistance required for transfers and ambulation]: SBA w/ FWW ?? Supervision [direct monitoring required during toileting and ADLs]: Eyes on/hands on ?? Surveillance [continuous indirect monitoring]: Masimo, purposeful rounding, call glover in reach ?? Patient-specific fall prevention interventions for sensory deficits provided, if applicable: [X] Yes, environmental modifications, lights adjusted to task, non- skid socks ? CPG GOAL OUTCOME EVALUATION: Ongoing Plan of Care - Chiquita Morel RN - 04/26/2020 6:32 AM EST Temp: [36.1 ??C (97 ??F)-36.9 ??C (98.4 ??F)] Heart Rate: [58-77] Resp: [9-16] BP: (107-139)/(52-74) SpO2: [92 %-98 %] Heart Rate from SpO2: [58 bpm-86 bpm] I/O this shift: In: 1300 [P.O.:500; I.V.:770; NG/GT:30] Out: 1750 [Urine:450; Other:1300] OUTCOME EVALUATION NOTE: OUTCOME SUMMARY: Dave had a quite night. AxO. RA. VSS. S/p Ex Lap with hernia repair. Pt on Clear liquids tolerates well. Pat's in place with borderline output.NGT to LCWS. Ambulate with 1 assist. Continue monitor pt. PLAN MOVING FORWARD: Plan for NGT clamp trial and possible NGT removal. INDIVIDUALIZED FALL PREVENTION INTERVENTIONS: Patient-specific fall risk factors per assessment: [current deficits]: Weakness Assistance [level of assistance required for transfers and ambulation]: 1 assist Supervision [direct monitoring required during toileting and ADLs]: Hands on Surveillance [continuous indirect monitoring]: Safety rounds done, Patient-specific fall prevention interventions for sensory deficits provided, if applicable: [X] N/A CPG GOAL OUTCOME EVALUATION: Initial Assessments - Porsha Santos RN - 04/25/2020 11:18 AM EST Office of Care Management Assessment Medical record reviewed. Plan of care and patient status discussed with direct care RN and/or Care Team in multidisciplinary rounds. Screening: Last COVID test: Date and Time: Resulted: 04/25/2020 10:03 Status: Final result Specimen Information: Nasopharyngeal Swab Symptoms->Surveillance ?? Component Value Flag Ref Range Units Status Rapid SARS-CoV-2 RNA Not Detected Not Detected Final 59 y.o. female here for: Present on Admission: ??? Incarcerated hernia 04/25/2020: Postoperative diagnosis: incarcerated hernia Procedure(s) (LRB): @EXPLORATORY LAPAROTOMY Patient has not been admitted to a hospital within the last 30 days. Transfer from [facility] Patient receiving hospital care under Inpatient status. Admission order reviewed. Primary Insurance on file: MEDICAID [place] Secondary Insurance on file: n/a Primary care provider on file: Hanane Martinez MD [phone] Advance Directive on file and Code Status: <no information>, Attempt Cardiopulmonary Resuscitation - Inpatient She was inpatient - September 2019 - noting: Given [place] Advance Directive booklet: wishes to identify brother Solomon and rob Chavez as DPOAHs Patient???s Functional Status: Independent; including ADL's; Drives. Living Situation: Lives with brother/Solomon and EMELIA/Kimberly [address] [place] [id number] Supports: Family Assessment: Patient with no apparent RNCM/SW needs at this time. No housing, transportation, insurance, resources concerns identified at this time. Supports in place to achieve a safe post-hospital transition. No identified barriers to accessing necessary care and/or follow-up after discharge. Has used in the past but discharged from services last year. [facility]. PHONE: [phone] FAX: [phone] Plan: Patient to d/c to home via car/family when medically ready. rental counter clerk/Agency Director will continue to follow patient???s progress and remain available if situation changes for coordination of care, psychosocial support and/or discharge planningKatherin Santos RN (Jonas) RN/CM - Cellphone: [phone] Pager: [phone] Covering Service RN/CM Op Note - Liberty Swann MD - 04/25/2020 9:38 AM EST [facility] Operative Note Patient Name: Jahaira Montgomery : [id number] MR#: [id number] Case Date: 04/25/2020 Surgeon: Surgeon(s) and Role: * Liberty Swann MD - Primary * Jean Claude Aly MD - Resident Preoperative diagnosis: incarcerated hernia Postoperative diagnosis: incarcerated hernia Procedure(s) (LRB): @EXPLORATORY LAPAROTOMY, WITH/WITHOUT BIOPSY(S) (WRVU 12.54) (N/A) HERNIA REPAIR, VENTRAL OR INCISIONAL, RECURRENT, INCARCERATED (WRVU 15.53) (N/A) Findings: hernia able to be reduced, bowel viable, hernia defect repaired primarily Anesthesia: General Estimated Blood Loss:15 mL Specimens removed during surgery: None Drains: none Surgical Closure: Primary Closure - [...] details pertinent to this patient.) HPI/Surgical Indications: 59 yo female with incarcerated ventral hernia causing SBO. Unable to reduce this area and it remains exquisitely tender. The risks, benefits and alternatives to exploration and ventral hernia repair with possible need for bowel resection were discussed and consent was obtained. Will proceed urgently to the OR. Procedure Description: The patient was identified in preoperative holding and was taken to the operating room and general anesthesia was induced. The abdomen was prepped and draped in the standard sterile fashion. Timeout was performed. Preoperative antibiotics were given. Incision was made in the midline with a #10 blade over the hernia. Hernia sac was identified and opened. The hernia contents were able to be reduced. The bowel appeared viable. Hernia sac completely excised. Attachments of the transverse colon and the omentum to th facial edge and the underside of the abdominal wall were taken down with Metzenbaum scissors and electrocautery. The fascia was opened superiorly with electrocatuery as there were several small defects in the midline. The hernia defect was 10 x 3cm in size. The small bowel was again examined and found to be normal. The omentum was replaced in the abdomen and the abdominal contents covered. The fascia was closed with running #1 PDS. The wound was irrigated and the irrigation removed. The skin was closed with running subcuticular 4-0 moncryl. The incision dressed with gauze and tape. All counts were correct at the end of the case. The patient was extubated in the OR and returned to the recovery area in stable condition. Attestation: Case Date: 04/25/2020 I was present and I participated during the entire procedure (does not need to include opening and closing). LIBERTY SWANN MD 04/25/2020 ED Triage - Janel Bourgeois RN - 04/24/2020 10:14 PM EST Pt. Transfer by [facility] ambulance from [facility] for surgical eval. Of bowel obstruction. Pt. C/o lower abdominal pain constant x 2 days. She arrives awake alert oriented able to take a few steps from the hallway to her stretcher. Skin warm pink dry. Also c/o nausea last vomited this am prior to going to [facility]> documented in this encounter Plan of Treatment Upcoming Encounters Date Type Specialty Care Team Description 09/30/2021 Office Visit General Surgery Paloma Mota, FAMILY MEMBER CARETAKER [facility] [place], [place] [address] (Wo rk) 09/30/2021 Office Visit Infectious Diseases Werner Harrell MD [facility] [place], [place] [address] (Wo rk) documented as of this encounter Procedures Procedure Name Priority Date/Time Associated Diagnosis Comme nts HEMOGRAM Routine 04/26/2020 4:16 AM Results f or this EST procedure are i n the results section. DIFFERENTIAL, Routine 04/26/2020 4:16 AM Results for this AUTOMATED EST procedure are i n the results section. HC CBC,PLT & AUTO Routine 04/26/2020 4:16 AM DIFF EST HC PHOSPHORUS, SERUM Routine 04/26/2020 4:16 AM R esults for this EST procedure are i n the results section. HC MAGNESIUM, SERUM Routine 04/26/2020 4:16 AM Re sults for this EST procedure are i n the results section. BASIC METABOLIC PANEL Routine 04/26/2020 4:16 AM Results for this (NON-FASTING) EST procedure are in the results section. HEMOGRAM Routine 04/25/2020 9:54 AM Results f or this EST procedure are i n the results section. DIFFERENTIAL, Routine 04/25/2020 9:54 AM Results for this AUTOMATED EST procedure are i n the results section. HC CBC,PLT & AUTO Routine 04/25/2020 9:54 AM DIFF EST BASIC METABOLIC PANEL Routine 04/25/2020 9:54 AM Results for this (NON-FASTING) EST procedure are in the results section. XR ABDOMEN 1 VIEW Routine 04/25/2020 8:16 AM Resu lts for this EST procedure are i n the results section. RAPID COVID-19 PCR Routine 04/25/2020 6:51 AM Res ults for this ([facility]) EST procedure are in the results section. HERNIA REPAIR,VENTRAL Routine 04/25/2020 6:43 AM OR INCISIONAL, EST RECURRENT, INCARCERATED HERNIA REPAIR, 04/25/2020 5:15 AM incarcerated hernia VENTRAL OR EST INCISIONAL, RECURRENT, INCARCERATED (WRVU 15.53) @EXPLORATORY 04/25/2020 5:15 AM incarcerated hernia LAPAROTOMY, EST WITH/WITHOUT BIOPSY(S) (WRVU 12.54) EXPLORATORY Routine 04/25/2020 4:59 AM LAPAROTOMY, EST WITH/WITHOUT BIOPSY(S) REQUEST FOR 2ND READ STAT 04/24/2020 10:[address] ABDOMEN AND PELVIS PM EST proced ure are in the results section. MARTÍNEZ TUBE HOLD STAT 04/24/2020 10:34 Results f or this PM EST procedure are i n the results section. HEMOGRAM STAT 04/24/2020 10:34 Results for this PM EST procedure are i n the results section. DIFFERENTIAL, STAT 04/24/2020 10:34 Results fo r this AUTOMATED PM EST procedure are i n the results section. GOLD TUBE HOLD STAT 04/24/2020 10:34 Results f or this PM EST procedure are i n the results section. BLUE TUBE HOLD STAT 04/24/2020 10:34 Results f or this PM EST procedure are i n the results section. HC L-LACTATE STAT 04/24/2020 10:34 Results for this PM EST procedure are i n the results section. HC CBC,PLT & AUTO STAT 04/24/2020 10:34 DIFF PM EST HC PHOSPHORUS, SERUM STAT 04/24/2020 10:34 Res ults for this PM EST procedure are i n the results section. HC MAGNESIUM, SERUM STAT 04/24/2020 10:34 Resu lts for this PM EST procedure are i n the results section. BASIC METABOLIC PANEL STAT 04/24/2020 10:34 Re sults for this (NON-FASTING) PM EST procedure are in the results section. documented in this encounter Results (ABNORMAL) Differential, Automated (04/26/2020 4:16 AM EST) [facility] Method Time Signature Neutrophils % 73.5 % [facility] Neutr Abs (ANC) 11.39 (H) 1.70 - [facility] 6.10 [facility] x10(3)/[facility] LABORATORY Lymphocytes % 17.6 % [facility] Lymphocytes Abs 2.7 0.9 - 3.2 [facility] x10(3)/[facility] LABORATORY Monocytes % 5.7 % [facility] Monocyte Abs 0.9 0.3 - 0.9 [facility] x10(3)/[facility] LABORATORY Eosinophils % 2.3 % [facility] Eosinophils Abs 0.4 0.0 - 0.4 [facility] x10(3)/[facility] LABORATORY Basophils % 0.6 % [facility] Basophils Abs 0.1 0.0 - 0.1 [facility] x10(3)/[facility] LABORATORY Immature Gran % 0.30 % [facility] Comment: Immature granulocytes(IG's)percentage an d absolute count will include metamyelocytes, myelocytes, and promyelo cytes. Blood smears from CBCs yielding IG's will be scanned manually for concor dance. If this scan disagrees with the automated IG or if promyelocytes are not ed, a manual differential will be performed. Shantell Gran Abs 0.05 (H) 0.00 - 0.04 x10(3)/[facility] LABORATORY Specimen Anatomical Collection Method Collection Time Receive d Time (Source) Location / / Volume Laterality Blood specimen 04/26/2020 4:16 AM 021 4:52 (specimen) EST AM EST Resulting Agency Comment Spec In Lab Chary Brunner MD HEMATOLOGY ORDERABLES Performing Organization Address City/State/[place] [address] (ABNORMAL) Hemogram (04/26/2020 4:16 AM EST) Analysis Performed At Patho logist Time Signature WBC 15.5 (H) 4.0 - 9.5 [facility] x10(3)/[facility] LABORATORY RBC 4.24 4[address] [facility].21 [facility] x10(6)/[facility] LABORATORY Hemoglobin 12.9 11.7 - [facility] 15.5 gm/dL [facility] Hematocrit 39.4 35.7 - [facility] 45.8 % [facility] MCV 92.9 82.6 - [facility] 94.4 [facility] LABORATORY MCH 30.4 27.1 - [facility] 32.0 pg [facility] MCHC 32.7 31.[address] [facility] 35.0 gm/dL [facility] Platelets 243 145 - 357 [facility] x10(3)/[facility] LABORATORY RDWSD 43.6 37.0 - [facility] 46.0 [facility] LABORATORY RDWCV 12.8 11.5 - [facility] 14.1 % [facility] LAB[facility] MPV 9.8 7.6 - 12.9 [facility] LABORATORY nRBC % Auto 0.0 % [facility] nRBC Abs Auto 0.000 0.000 - [facility] 0.000 [facility] x10(3)/[facility] LABORATORY Specimen Anatomical Collection Method Collection Time Receive d Time (Source) Location / / Volume Laterality Blood specimen 04/26/2020 4:16 AM 021 4:52 (specimen) EST AM EST Resulting Agency Comment Spec In Lab Chary Brunner MD HEMATOLOGY ORDERABLES Performing Organization Address City/State/ZIP Code Phon e Number [address] Phosphorus (04/26/2020 4:16 AM EST) athologist Signature Phosphorus 2.9 2.5 - 4.5 [facility] mg/dL [facility] Specimen Anatomical Collection Method Collection Time Receive d Time (Source) Location / / Volume Laterality Blood specimen 04/26/2020 4:16 AM 021 4:52 (specimen) EST AM EST Resulting Agency Comment Spec In Lab Deangelo Oliveira MD CHEMISTRY ORDERABLES Performing Organization Address City/[facility]/ZIP Code Phon e Number [address] Magnesium (04/26/2020 4:16 AM EST) athologist Signature Magnesium 0.88 0.69 - 1.07 [facility] mmol/L [facility] Specimen Anatomical Collection Method Collection Time Receive d Time (Source) Location / / Volume Laterality Blood specimen 04/26/2020 4:16 AM 021 4:52 (specimen) EST AM EST Resulting Agency Comment Spec In Lab Deangelo Oliveira MD CHEMISTRY ORDERABLES Performing Organization Address City/[facility]/ZIP [place] [address] (ABNORMAL) Basic Metabolic Panel (non-fasting) (04/26/2020 4:16 AM EST) athologist Signature Glucose Lvl 102 65 - 199 [facility] mg/dL [facility] Comment: Diabetes: >=200 mg/dL plus symp toms BUN 13 8 - 18 mg/dL [facility] Creatinine 0.49 (L) 0.70 - 1.20 mg/dL [facility] LAB[facility] Sodium 142 135 - 145 mmol/L [facility] Potassium 3.4 (L) 3.5 - 5.0 mmol/L [facility] Comment: Please note: ??Patients with WBC >100,00 0 may have falsely elevated Potassium levels. ??For accurate Potassium quantif ication in these patients send serum separator tube (gold top) for subsequent determinations. ??Contact the Clinical Chemistry Laboratory if there are any qu estions. Chloride 104 98 - 107 mmol/L [facility] CO2 31 22 - 31 mmol/L [facility] Anion Gap 7 5 - 15 mmol/L [facility]ORY Calcium 8.8 8.5 - 10.5 mg/dL [facility] Estimated GFR 108 >=60 mL/min/1.73 m?? [facility] Comment: This patient? s estimated glomerular filtration rate (eGFR) is between 108 mL/min/1.73 m2 (patients with less muscl e mass) and 125 mL/min/1.73 m2 (patients with more muscle mass) as dete rmined by the CKD-EPI equation. Assessment of eGFR is not appropriate wh en creatinine concentrations are rapidly changing. For clinical decisions where creatinine clearance will affect therapy, a 24-hour urine creatinine armando david may be advised. Assignment of CKD stage 1 ? 5 for patients with an eGFR near the transition point between stages may be based on cli nical assessment of muscle mass and symptoms in addition to eGFR. Specimen Anatomical Collection Method Collection Time Receive d Time (Source) Location / / Volume Laterality Blood specimen 04/26/2020 4:16 AM 021 4:52 (specimen) EST AM EST Resulting Agency Comment Spec In Lab Deangelo Oliveira MD CHEMISTRY ORDERABLES Performing Organization Address City/State/[place] [address] (ABNORMAL) Differential, Automated (04/25/2020 9:54 AM EST) [facility] Method Time Signature Neutrophils % 88.5 % [facility] Neutr Abs (ANC) 14.64 (H) 1.70 - [facility] 6.10 [facility] x10(3)/[facility] L LABORATORY Lymphocytes % 8.9 % [facility] Lymphocytes Abs 1.5 0.9 - 3.2 [facility] x10(3)/[facility] LABORATORY Monocytes % 1.5 % [facility] Monocyte Abs 0.2 (L) 0.3 - 0.9 [facility] x10(3)/[facility] LABORATORY Eosinophils % 0.2 % [facility] Eosinophils Abs 0.0 0.0 - 0.4 [facility] x10(3)/[facility] LABORATORY Basophils % 0.4 % [facility] Basophils Abs 0.1 0.0 - 0.1 [facility] x10(3)/[facility] LABORATORY Immature Gran % 0.50 % [facility] Comment: Immature granulocytes(IG's)percentage an d absolute count will include metamyelocytes, myelocytes, and promyelo cytes. Blood smears from CBCs yielding IG's will be scanned manually for concor dance. If this scan disagrees with the automated IG or if promyelocytes are not ed, a manual differential will be performed. Shantell Gran Abs 0.09 (H) 0.00 - 0.04 x10(3)/[facility] LABORATORY Specimen Anatomical Collection Method Collection Time Receive d Time (Source) Location / / Volume Laterality Blood specimen 04/25/2020 9:54 AM 021 (specimen) EST 10:04 AM EST Resulting Agency Comment Spec In Lab Elliott Kim MD HEMATOLOGY ORDERABLES Performing Organization Address City/State/[place] [address] (ABNORMAL) Hemogram (04/25/2020 9:54 AM EST) Analysis Performed At Patho logist Time Signature WBC 16.6 (H) 4.0 - 9.5 [facility] x10(3)/[facility] LABORATORY RBC 4.70 4.00 - [facility] 5.21 [facility] [facility] x10(6)/[facility] LABORATORY Hemoglobin 14.4 11.7 - [facility] 15.5 gm/dL [facility] LABORATORY Hematocrit 44.1 35.7 - [facility] 45.8 % [facility] LABORATORY MCV 93.8 82.[address] [facility]4 [facility] LABORATORY MCH 30.6 27.1 [facility] 32.0 pg [facility] LABORATORY MCHC 32.7 31.7 - [facility]dL [facility] LABORATORY Platelets 244 145 - 357 [facility] x10(3)/[facility] LABORATORY RDWSD 44.4 37.0 - [place] 46.0 [facility] LABORATORY RDWCV 12.9 11.5 - [facility] NAVEEN 14.1 % [facility] LABORATORY MPV 9.7 7.6 - 12.9 [facility] LABORATORY nRBC % Auto 0.0 % [facility] LABORATORY nRBC Abs Auto 0.000 0.000 - [facility] 0.000 [facility] x10(3)/[facility] LABORATORY Specimen Anatomical Collection Method Collection Time Receive d Time (Source) Location / / Volume Laterality Blood specimen 04/25/2020 9:54 AM 021 (specimen) EST 10:04 AM EST Resulting Agency Comment Spec In Lab Elliott Kim MD HEMATOLOGY ORDERABLES Performing Organization Address City/State/[place] [address] (ABNORMAL) Basic Metabolic Panel (non-fasting) (04/25/2020 9:54 AM EST) athologist Signature Glucose Lvl 152 65 - 199 [facility] mg/dL [facility] LABORATORY Comment: Diabetes: >=200 mg/dL plus symp toms BUN 17 8 - 18 mg/dL [facility] LABORATORY Creatinine 0.62 (L) 0.70 - 1.20 mg/dL [facility] LABORATORY Sodium 138 135 - 145 mmol/L [facility] LABORATORY Potassium 4.2 3.5 - 5.0 mmol/L [facility] LABORATORY Comment: Please note: ??Patients with WBC >100,00 0 may have falsely elevated Potassium levels. ??For accurate Potassium quantif ication in these patients send serum separator tube (gold top) for subsequent determinations. ??Contact the Clinical Chemistry Laboratory if there are any qu estions. Chloride 104 98 - 107 mmol/L [facility] LABORATORY CO2 24 22 - 31 mmol/L [facility] LABORATORY Anion Gap 10 5 - 15 mmol/L [facility] LABORATORY Calcium 8.6 8.5 - 10.5 mg/dL [facility] LABORATORY Estimated GFR 100 >=60 mL/min/1.73 m?? [facility] LABORATORY Comment: This patient? s [...] be advised. Assignment of CKD stage 1 ? 5 for patients with an eGFR near the transition point between stages may be based on cli nical assessment of muscle mass and symptoms in addition to eGFR. Specimen Anatomical Collection Method Collection Time Receive d Time (Source) Location / / Volume Laterality Blood specimen 04/25/2020 9:54 AM 021 (specimen) EST 10:04 AM EST Resulting Agency Comment Spec In Lab Liberty Swann MD CHEMISTRY ORDERABLES Performing Organization Address City/State/[place] [address] XR Abdomen 1 view (Generic) (04/25/2020 8:16 AM EST) Anatomical Region Laterality Modality Abdomen N/A Digital Radiography Specimen (Source) Anatomical Location Collection Method / Collectio n Time Received Time / Laterality Volume Impressions 04/25/2020 8:46 AM EST 1. ??Nasogastric tube tip is in the stomach. 2. ??Dilated small bowel unchanged from prior, consistent with known small bowel obstruction. Thank you for letting us participate in the care of this patient. For questions regarding this report, please contact e number below. ? Narrative 04/25/2020 8:46 AM EST EXAMINATION: XR ABDOMEN 1 VIEW (GENERIC) CLINICAL HISTORY: NGt placement TECHNIQUE: Portable supine abdomen 11/23/2020 at 080 5 hours COMPARISON: CT 04/24/2020 FINDINGS: Nasogastric tube tip and side-port withi n the stomach. Dilated small bowel loops measure 4 cm maximally, similar to mitchell rison. A small amount of gas is seen in the descending colon. The right hemiabdo men is excluded from the [id number]-lw-fqby. Right upper quadrant surgical clips are present from cholecystectomy. No pathologic calcifications are noted. Procedure Note Kathy Jolly MD - 04/25/2020Formatt ing of this note might be different from the original. EXAMINATION: XR ABDOMEN 1 VIEW (GENERIC) CLINICAL HISTORY: NGt placement TECHNIQUE: Portable supine abdomen 11/23/2020 at 080 5 hours COMPARISON: CT 04/24/2020 FINDINGS: Nasogastric tube tip and side-port withi n the stomach. Dilated small bowel loops measure 4 cm maximally, similar to mitchell rison. A small amount of gas is seen in the descending colon. The right hemiabdo men is excluded from the vqqvr-ku-lrks. Right upper quadrant surgical clips are present from cholecystectomy. No pathologic calcifications are noted. IMPRESSION 1. Nasogastric tube tip is in the stomac h. 2. Dilated small bowel unchanged from pr ior, consistent with known small bowel obstruction. Thank you for letting us participate in the care of this patient. For questions regarding this report, please contact e number below. Liberty Swann MD IMG DX ORDERABLES COVID-19 PCR (04/25/2020 6:51 AM EST) [facility] Method Time Signature SARS-CoV-2 Not Detected [...] using the Simplexa COVID-19 Direct Assay by [employer] as authorized by the FDA issued Emergency [...] fact sheets at the following FDA website: https://www.fda.gov/medical-devices/vfansnmriag-kuzyvat-5354-vwymt-14-lhhdrouvb- obd-jotsomhbnkjnvn-azilgrv-devices/wqxzm-dhcqgpzmknv-phay SARS-CoV-2 Source LABORATORY APPARATUS [place] Swab [facility] LABORATORY Specimen (Source) Anatomical Collection Method Collection Time Re ceived Time Location / / Volume Laterality Nasopharyngeal swab 04/25/2020 6:51 04/25 (specimen) AM EST 7:42 AM EST Comment: Symptoms->Surveillance Resulting Agency Comment Spec In Lab Liberty Swann MD MICROBIOLOGY - GENERAL ORDER ARLEY Performing Organization Address City/State/ZIP [place] [address] Request For 2nd Read CT Abdomen & Pelvis (04/24/2020 10:47 PM EST) Anatomical Region Laterality Modality Abdomen, Pelvis SO Specimen (Source) Anatomical Location Collection Method / Collectio n Time Received Time / Laterality Volume Impressions 04/25/2020 1:04 AM EST 1. ??Small bowel obstruction with transition point at the site of a paraumbilical hernia containing loops of distal small bowel. Wall thickening and adjacent edema suggests signs of inflammation con cerning for ischemia and bowel incarceration. 2. ??No free intraperitoneal air or locu lated fluid. Preliminary report signed by: Nikos gabriel at 04/24/2020 11:21 PM I have personally reviewed the image(s) and the resident's interpretation and agree with the findings, Liborio Lea MD at 04/25/2020 1:04 AM Thank you for letting us participate in the care of this patient. For questions regarding this report, please contact e number below. ? Narrative 04/25/2020 1:04 AM EST EXAMINATION: REQUEST FOR 2ND READ CT ABDOMEN AND PELVIS CLINICAL HISTORY: Hernia; What Modality is the exam? CT Scan; Body Part (please add comments as necessary): AP; Sending Institution [facility]; Date of exam [id number]; I believe a reint erpretation of this exam may alter care of Patient. Yes TECHNIQUE: Outside hospital contrast enhanced CT of the abdomen and pelvis performed at [facility] o n 04/24/2020 at 3:45 PM. Reinterpretation requested by the ordering provider, Dr. Liberty Swann. COMPARISON: CT abdomen pelvis 04/23/2019 FINDINGS: Lower chest: Bibasilar atelectasis. Liver: Borderline hepatomegaly. Normal a ttenuation without lesions. Bile ducts: Nondilated. Gallbladder: Surgically absent. Pancreas: Normal attenuation without rolly blu dilatation. Spleen: Normal. Adrenals: Normal. Kidneys: Symmetric nephrograms. No hydro nephrosis or renal calculus. Subcentimeter hypodense renal cortical l esions are too small to characterize but likely represent cysts. Urinary Bladder: Normal. Vasculature: No aneurysm. Lymph Nodes: No enlarged lymph nodes. Bowel: The patient is status post partia l colectomy. Dilated small bowel loops are present in the anterior abdomen with transition point at the site of a large paraumbilical hernia containing loops di stal small bowel. There is segmental wall thickening of small bowel loop at t his site. The previously noted left lower quadrant colostomy has been revers ed during interval time period. Sigmoid diverticulosis without evidence of acute diverticulitis. The appendix is not visualized. Peritoneum and mesentery: No free air or loculated fluid. Small amount of ascites is noted adjacent to loops of or[place] wel within the paraumbilical hernia. Abdominal wall: Local hernia containing loops of small bowel, with adjacent fat stranding suggesting inflammatory edema. Reproductive organs: The uterus is surgi rosie absent. Osseous structures: No suspicious lesion s. Procedure Note Liborio Lea MD - 04/25/2020Formatt ing of this note might be different from the original. EXAMINATION: REQUEST FOR 2ND READ CT ABD OMEN AND PELVIS CLINICAL HISTORY: Hernia; What Modality is the exam? CT Scan; Body Part (please add comments as necessary): AP; Sending Institution [facility]; Date of exam 20200424; I believe a reint erpretation of this exam may alter care of Patient. Yes TECHNIQUE: Outside hospital contrast enhanced CT of the abdomen and pelvis performed at [facility] o n 04/24/2020 at 3:45 PM. Reinterpretation requested by the ordering provider, Dr. Liberty Swann. COMPARISON: CT abdomen pelvis 04/23/2019 FINDINGS: Lower chest: Bibasilar atelectasis. Liver: Borderline hepatomegaly. Normal a ttenuation without lesions. Bile ducts: Nondilated. Gallbladder: Surgically absent. Pancreas: Normal attenuation without rolly blu dilatation. Spleen: Normal. Adrenals: Normal. Kidneys: Symmetric nephrograms. No hydro nephrosis or renal calculus. Subcentimeter hypodense renal cortical l esions are too small to characterize but likely represent cysts. Urinary Bladder: Normal. Vasculature: No aneurysm. Lymph Nodes: No enlarged lymph nodes. Bowel: The patient is status post partia l colectomy. Dilated small bowel loops are present in the anterior abdomen with transition point at the site of a large paraumbilical hernia containing loops di stal small bowel. There is segmental wall thickening of small bowel loop at t his site. The previously noted left lower quadrant colostomy has been revers ed during interval time period. Sigmoid diverticulosis without evidence of acute diverticulitis. The appendix is not visualized. Peritoneum and mesentery: No free air or loculated fluid. Small amount of ascites is noted adjacent to loops of orlando wel within the paraumbilical hernia. Abdominal wall: Local hernia containing loops of small bowel, with adjacent fat stranding suggesting inflammatory edema. Reproductive organs: The uterus is surgi rosie absent. Osseous structures: No suspicious lesion s. IMPRESSION 1. Small bowel obstruction with transiti on point at the site of a paraumbilical hernia containing loops of distal small bowel. Wall thickening and adjacent edema suggests signs of inflammation con cerning for ischemia and bowel incarceration. 2. No free intraperitoneal air or locula lorraine fluid. Preliminary report signed by: Nikos gabriel at 04/24/2020 11:21 PM I have personally reviewed the image(s) and the resident's interpretation and agree with the findings, Liborio Lea MD at 04/25/2020 1:04 AM Thank you for letting us participate in the care of this patient. For questions regarding this report, please contact e number below. Liberty Swann MD IMG OUTSIDE INTERPRETATION O RDERABLES Martínez Tube Hold (04/24/2020 10:34 PM EST) P athologist Signature Martínez Hold Sample in [facility] Specimen Anatomical Collection Method Collection Time Receive d Time (Source) Location / / Volume Laterality Blood specimen Venous Draw / 04/24/2020 10:34 04/24/19 21 (specimen) Unknown PM EST 10:41 PM EST Jean Claude Aly MD CHEMISTRY ORDERABLES Performing Organization Address City/[facility]/ZIP Code Phon e Number [address] Gold Tube HOLD (04/24/2020 10:34 PM EST) P athologist Signature Gold Hold Sample in [facility] LABORATORY Specimen Anatomical Collection Method Collection Time Receive d Time (Source) Location / / Volume Laterality Blood specimen Venous Draw / 04/24/2020 10:34 04/24/19 21 (specimen) Unknown PM EST 10:41 PM EST Jean Claude Aly MD CHEMISTRY ORDERABLES Performing Organization Address City/State/ZIP Code Phon e Number [place] [phone] HOSPITAL LABORATORY Drive Blue Tube HOLD (04/24/2020 10:34 PM EST) P athologist Signature Blue Hold Sample in [facility] LABORATORY Specimen Anatomical Collection Method Collection Time Receive d Time (Source) Location / / Volume Laterality Blood specimen Venous Draw / 04/24/2020 10:34 04/24/19 21 (specimen) Unknown PM EST 10:41 PM EST Jean Claude Aly MD HEMATOLOGY ORDERABLES Performing Organization Address City/State/ZIP [place] [address] (ABNORMAL) Differential, Automated (04/24/2020 10:34 PM EST) [facility] Method Time Signature Neutrophils % 60.5 % [facility] LABORATORY Neutr Abs (ANC) 8.32 (H) 1.70 - [facility] 6.10 [facility] x10(3)/[facility] LABORATORY Lymphocytes % 28.0 % [facility] LABORATORY Lymphocytes Abs 3.8 (H) 0.9 - 3.2 [facility] x10(3)/[facility] LABORATORY Monocytes % 7.9 % [facility] LABORATORY Monocyte Abs 1.1 (H) 0.3 - 0.9 [facility] x10(3)/[facility] LABORATORY Eosinophils % 2.3 % [facility] LABORATORY Eosinophils Abs 0.3 0.0 - 0.4 [facility] x10(3)/[facility] LABORATORY Basophils % 0.5 % [facility] LABORATORY Basophils Abs 0.1 0.0 - 0.1 [facility] x10(3)/[facility] LABORATORY Immature Gran % 0.80 % [facility] LABORATORY Comment: Immature granulocytes(IG's)percentage an d absolute count will include metamyelocytes, myelocytes, and promyelo cytes. Blood smears from CBCs yielding IG's will be scanned manually for concor dance. If this scan disagrees with the automated IG or if promyelocytes are not ed, a manual differential will be performed. Shantell Gran Abs 0.11 (H) 0.00 - 0.04 x10(3)/[facility] LABORATORY Specimen Anatomical Collection Method Collection Time Receive d Time (Source) Location / / Volume Laterality Blood specimen 04/24/2020 10:34 1 (specimen) PM EST 10:40 PM EST Resulting Agency Comment Spec In Lab Jean Claude Aly MD HEMATOLOGY ORDERABLES Performing Organization Address City/[facility]/ZIP Code Phon e Number [place] [phone] HOSPITAL LABORATORY Drive (ABNORMAL) Hemogram (04/24/2020 10:34 PM EST) Analysis Performed At Patho logist Time Signature WBC 13.8 (H) 4.0 - 9.5 [facility] x10(3)/[facility] LABORATORY RBC 4.83 4.00 - [place] [facility] 5.21 [facility] x10(6)/[facility] LABORATORY Hemoglobin 14.9 11.7 [facility]/dL [facility] LABORATORY Hematocrit 45.1 35.7 - [facility] 45.8 % [facility] LABORATORY MCV 93.4 82.6 - [facility] 94.4 [facility] LABORATORY MCH 30.8 27.1 - [facility] 32.0 pg [facility] LABORATORY MCHC 33.0 31.7 - [facility]/dL [facility] LABORATORY Platelets 274 145 - 357 [facility] x10(3)/[facility] LABORATORY RDWSD 44.8 37.0 - [facility] NAVEEN 46.0 [facility] LABORATORY RDWCV 13.1 11.5 - [facility]EN 14.1 % [facility] LABORATORY MPV 9.4 7.6 - 12.9 [facility] LABORATORY nRBC % Auto 0.0 % [facility] LABORATORY nRBC Abs Auto 0.000 0.000 - [place] 0.000 [facility] x10(3)/[facility] LABORATORY Specimen Anatomical Collection Method Collection Time Receive d Time (Source) Location / / Volume Laterality Blood specimen 04/24/2020 10:34 (specimen) PM EST 10:40 PM EST Resulting Agency Comment Spec In Lab Jean Claude Aly MD HEMATOLOGY ORDERABLES Performing Organization Address City/State/[place] [address] Lactate, whole blood, send to lab ([facility] [place] [place]) (04/24/2020 10:34 PM EST) P athologist Signature Lactate WB 1.4 0.5 - 2.2 [facility] mmol/L [facility] LABORATORY Specimen Anatomical Collection Method Collection Time Receive d Time (Source) Location / / Volume Laterality Blood specimen 04/24/2020 10:34 1 (specimen) PM EST 10:39 PM EST Resulting Agency Comment Spec In Lab Liberty Swann MD CHEMISTRY ORDERABLES Performing Organization Address City/[facility]/ZIP Code Phon e Number [address] Phosphorus (04/24/2020 10:34 PM EST) P athologist Signature Phosphorus 2.9 2.5 - 4.5 [facility] LABORATORY Specimen Anatomical Collection Method Collection Time Receive d Time (Source) Location / / Volume Laterality Blood specimen 04/24/2020 10:34 1 (specimen) PM EST 10:40 PM EST Resulting Agency Comment Spec In Lab Liberty Swann MD CHEMISTRY ORDERABLES Performing Organization Address City/[facility]/ZIP Code Phon e Number [address] Magnesium (04/24/2020 10:34 PM EST) P athologist Signature Magnesium 0.82 0.69 - 1.07 [facility] mmol/L [facility] LABORATORY Specimen Anatomical Collection Method Collection Time Receive d Time (Source) Location / / Volume Laterality Blood specimen 04/24/2020 10:34 1 (specimen) PM EST 10:40 PM EST Resulting Agency Comment Spec In Lab Liberty Swann MD CHEMISTRY ORDERABLES Performing Organization Address City/[facility]/ZIP Code [place] [address] (ABNORMAL) Basic Metabolic Panel (non-fasting) (04/24/2020 10:34 PM EST) P athologist Signature Glucose Lvl 120 65 - 199 [facility] mg/dL [facility] LABORATORY Comment: Diabetes: >=200 mg/dL plus symp toms BUN 19 (H) 8 - 18 mg/dL [facility] LABORATORY Creatinine 0.60 (L) 0.70 - 1.20 mg/dL [facility] LABORATORY Sodium 137 135 - 145 mmol/L [facility] LABORATORY Potassium 3.9 3.5 - 5.0 mmol/L [facility] LABORATORY Comment: Please note: ??Patients with WBC >100,00 0 may have falsely elevated Potassium levels. ??For accurate Potassium quantif ication in these patients send serum separator tube (gold top) for subsequent determinations. ??Contact the Clinical Chemistry Laboratory if there are any qu estions. Chloride 105 98 - 107 mmol/L [facility] LABORATORY CO2 22 22 - 31 mmol/L [facility] LABORATORY Anion Gap 10 5 - 15 mmol/L [facility] LABORATORY Calcium 8.5 8.5 - 10.5 mg/dL [facility] LABORATORY Estimated GFR 101 >=60 mL/min/1.73 m?? [facility] LABORATORY Comment: This patient? s estimated glomerular filtration rate (eGFR) is between 101 mL/min/1.73 m2 (patients with less muscl e mass) and 117 mL/min/1.73 m2 (patients with more muscle mass) as dete rmined by the CKD-EPI equation. Assessment of eGFR is not appropriate wh en creatinine concentrations are rapidly changing. For clinical decisions where creatinine clearance will affect therapy, a 24-hour urine creatinine armando david may be advised. Assignment of CKD stage 1 ? 5 for patients with an eGFR near the transition point between stages may be based on cli nical assessment of muscle mass and symptoms in addition to eGFR. Specimen Anatomical Collection Method Collection Time Receive d Time (Source) Location / / Volume Laterality Blood specimen 04/24/2020 10:34 1 (specimen) PM EST 10:40 PM EST Resulting Agency Comment Spec In Lab Liberty Swann MD CHEMISTRY ORDERABLES Performing Organization Address City/State/[place] [address] documented in this encounter Visit Diagnoses Diagnosis Incarcerated hernia Hernia of unspecified site, with obstruc tion documented in this encounter Admitting Diagnoses Diagnosis Incarcerated hernia Hernia of unspecified site, with obstruc tion documented in this encounter Administered Medications Inactive Administered Medications - up to 3 most recent administrations Medication Order MAR Action Action Date Dose Rate Site acetaminophen (Ofirmev) (1000 Given 04/25/2020 11:56 PM 1,000 mg 400 mL/hr mg/100 mL) infusion 1,000 mg EST 1,000 mg, Intravenous, at 400 mL/hr, EVERY 8 HOURS SCHEDULED, 3 doses, First dose on Thu04/25/20 at 0745, Last dose on Thu04/26/20 at 0000, Maximum dose of acetaminophen is 4000 mg from all sources in 24 hours. When ordered for pain, acetaminophen should be given even when other ordered pain medications are indicated. , Routine Given 04/25/2020 4:15 PM EST 1,000 mg 400 mL/hr Given 04/25/2020 7:26 AM EST 1,000 mg 400 mL/hr benzocaine (Hurricane One) Mucosal spray 20% Given 04/25/2020 3: 55 AM EST (restricted to adrián-procedural use) Oral, ONCE, On Thu04/25/20 at 0355, 1 dose, For Procedural use. [place] on area for one second. May repeat if necessary. Do not exceed a spray duration of 2 seconds. heparin (porcine) (5,000 units/1 mL) Given 04/27/2020 1:08 AM ES T 5,000 Units subcutaneous injection 5,000 Units 5,000 Units, Subcutaneous, EVERY 8 HOURS SCHEDULED, First dose on Thu04/25/20 at 1400, Until Discontinued, Routine Given 04/26/2020 3:42 PM EST 5,000 Units Given 04/26/2020 8:00 AM EST 5,000 Units lactated ringers infusion New Bag 04/25/2020 7:32 AM EST 100 mL/hr 100 mL/hr 100 mL/hr, Intravenous, CONTINUOUS, Starting on Thu04/24/20 at 2246, Until Thu04/25/20 at 1020 New Bag 04/24/2020 11:08 PM EST 100 mL/hr 100 mL/hr nicotine (NICODERM CQ) 7 mg/24 hr patch 7 mg 7 mg (1 patch), Transdermal, DAILY, First dose on Thu04/25/20 at 1015, Until Discontinued, Apply new patch to nonhairy, clean, dry skin on the upper body or upper outer arm; each patch should be applied to a dif ferent site , Routine nicotine (NICODERM CQ) 7 mg/24 hr patch Patch Removal Transdermal, DAILY, First dose on 02/03 at 0200, Until Discontinued, Remove nicotine 7 mg/24 hr patch nicotine (NICODERM CQ) 7 mg/24 hr patch Patch Verification Transdermal, 2 TIMES DAILY, First dose o n Thu04/25/20 at 1400, Until Discontinued, Verify nicotine 7 mg/24 hr patch. ondansetron (pf) (Zofran) (2 mg/mL) inje ction 4-8 mg 4-8 mg, Intravenous, EVERY 8 HOURS PRN, Starting on Thu04/25/20 at 0927, Until Thu04/27/20 at 1516, Nausea, Start with 4mg and if ineffective in 30 minutes, give an additional 4mg If multiple antiemetic s are ordered, give ondansetron first. ondansetron (Zofran) tablet 4-8 mg 4-8 mg, Oral, EVERY 8 HOURS PRN, Startin g on Thu04/25/20 at 0927, Until Thu04/27/20 at 1516, Nausea, Vomiting, If multiple antiemetics are ordered, use ondansetron first. PO Preferred. If patient unable to take PO, may give IV if ordered. Start with 4mg and if ineffective in 45 minutes, give an add itional 4mg. If unable to take PO, may give IV., Routine phenol 1.4% (CHLORASEPTIC) spray 1 spray 1 spray, Oral, EVERY 2 HOURS PRN, Starting on 04/25 at 0909, Until Thu04/27/20 at 1516, Irritation, Routine piperacillin-tazobactam (Zosyn) New Bag 04/25/2020 10:46 AM 3.375 g 12.5 mL/hr 3.375 g vial attach to sodium EST chloride 0.9% 50 mL Mini-Bag Plus 3.375 g, Intravenous, EVERY 8 HOURS, First dose on Thu04/25/20 at 0200, Until Discontinued, Administer over 4 Hours, Warning Vesicant/Irritant Medication Do not administer or Y-site with lactated ringers., Indication for (Active or Suspected): GI/Intra-abdominal Bolus 04/25/2020 6:42 AM EST 3.375 g New Bag 04/25/2020 3:34 AM EST 3.375 g 12.5 mL/hr senna-docusate (Pericolace) 8.6-50 mg pe r tablet 2 tablet 2 tablet, Oral, 2 TIMES DAILY, First dose on Thu at 2100, Until Discontinued, Routine sodium chloride 0.9 % (flush) flush 5 mL Given 04/27/2020 9:05 AM EST 5 mLs 5 mL, Intravenous, 2 TIMES DAILY, First dose on Thu04/25/20 at 1015, Until Discontinued, Recovery (Recovery-Hospital Unit), Routine Given 04/26/2020 9:06 PM EST 5 mLs Given 04/26/2020 9:01 AM EST 5 mLs sodium chloride 0.9% infusion New Bag 04/26/2020 1:38 AM EST 100 mL/hr 100 mL/hr 100 mL/hr, Intravenous, CONTINUOUS, Starting on Thu04/25/20 at 1115, Until Thu04/26/20 at 0717 New Bag 04/25/2020 10:48 AM EST 100 mL/hr 100 mL/hr documented in this encounter Active and Recently Administered Medications Times are shown in EST. Scheduled Medication Order 04/25/2020 04/26/2020 04/27/2020 acetaminophen (Ofirmev) (1000 mg/100 mL) infusion 1,00 0 mg (COMPLETED) 0726 (Given - Provider: Rosario Jennings RN)1615 (Given - Provider: Ebony Ramirez RN - Comment: pt request)2356 (Given - Provider: Chiquita Morel RN) 1,000 mg, Intravenous, at 400 mL/hr, IRIS RY 8 HOURS SCHEDULED, 3 doses, First dose on Thu04/25/20 at 0745, Last dose on Thu04/26/20 at 0000, Maximum dose of acetaminophen is 4000 mg from all sources in 2 4 hours. When ordered for pain, acetamin ophen should be given even when other ordered pain medications are indicated. , Routine benzocaine (Hurricane One) Mucosal spray 20% (restricted to adrián-procedural use) (COMPLETED) 0355 (Given - Provider: Ronel Troncoso, GENA) Oral, ONCE, Thu04/25/20 at 0355, 1 dose, For Procedural use. [place] on area for one second. May repeat if necessary. Do not exceed a spray duration of 2 seconds. heparin (porcine) (5,000 units/1 mL) subcutaneous inje ction 5,000 Units 1620 (Given - Provider: Ebony Ramirez RN - Comment: pt request)2357 (Given - Provider: Chiquita Morel RN) 0800 (Given - Provider: Ebony Ramirez RN)1542 (Given - Provider: Ebony Ramirez RN) 0108 (Given - Provider: Chiquita Morel RN)0904 (Not Given - Provider: Rodrigue Kennedy RN - Reason: Patient/family refused) 5,000 Units, Subcutaneous, EVERY 8 HOURS SCHEDULED, First dose on Thu04/25/20 at 1400, Until Discontinued, Routine nicotine (NICODERM CQ) 7 mg/24 hr patch 7 mg(Linked Gr oup 1) 1015 (Not Given - Provider: Ebony Ramirez RN - Reason: Patient/family refused) 0900 (Not Given - Provider: Ebony Ramirez RN - Reason: Patient/family refused) 0904 (Not Given - Provider: Rodrigue Kennedy RN - Reason: Patient/family refused) 7 mg (1 patch), Transdermal, DAILY, Firs t dose on Thu04/25/20 at 1015, Until Discontinued, Apply new patch to nonhairy, clean, dry skin on the upper body or upper outer arm; each patch should be applied to a different site , Routine nicotine (NICODERM CQ) 7 mg/24 hr patch Patch Removal(Linked Group 1) 0200 (Patch Not Removed (add comment) - Provider: Chiquita Morel RN - Comment: not applied) 0900 (Patch Not Removed (add comment) - Provider: Rodrigue Kennedy RN - Comment: no patch on) Transdermal, DAILY, First dose on 02/03 at 0200, Until Discontinued, Remove nicotine 7 mg/24 hr patch nicotine (NICODERM CQ) 7 mg/24 hr patch Patch Verifica tion(Linked Group 1) 1400 (Patch Not Verified (add comment) - Provider: Ebony Ramirez RN - Comment: not on pt)2100 (Patch Not Verified (add comment) - Provider: Chiqutia Morel RN - Comment: not applied previously) 0900 (Patch Not Verified (add comment) - Provider: Eboyn Ramirez RN - Comment: not applied)2100 (Patch Not Verified (add comment) - Provider: Chiquita Morel RN - Comment: not applied) 0900 (Patch (dose and location) verified - Provider: Rodrigue Kennedy RN) Transdermal, 2 TIMES DAILY, First dose o n Thu04/25/20 at 1400, Until Discontinued, Verify nicotine 7 mg/24 hr patch. piperacillin-tazobactam (Zosyn) 3.375 g vial attach to sodium chloride 0.9% 50 mL Mini-Bag Plus (CANCELED) 0334 (New Bag - Provider: Ronel raymond RN)0505 (MAY Hold - Provider: Admin Adt - Reason: Transfer to a Procedural area)0642 (Bolus - Provider: Chani Torres MD)0734 (Stopped - Provider: Ebony Ramirez RN) 3.375 g, Intravenous, EVERY 8 HOURS, Fir st dose on Thu04/25/20 at 0200, Until Discontinued, Administer over 4 Hours, Warning Vesicant/Irritant Medication Do not administer or Y-site with lactated 0927 (MAY Unhold - Provider: Admin Adt)1046 (New Bag - Provider: Ebony Ramirez RN)1446 (Stopped - Provider: Ebony Ramirez RN) ringers., Indication for (Active or Suspected): GI/Intra-abdomin al senna-docusate (Pericolace) 8.6-50 mg per tablet 2 tablet 2100 (Not Given - Provider: Chiquita Morel RN - Reason: Patient/family refused) 0900 (Not Given - Provider: Rodrigue Kennedy RN - Reason: Patient/family refused) 2 tablet, Oral, 2 TIMES DAILY, First dos e on Kiara 04/26/20 at 2100, Until Discontinued, Routine sodium chloride 0.9 % (flush) flush 5 mL 1047 (Given - Provider: Ebony Ramirez RN)2040 (Not Given - Provider: Chiquita Morel RN - Reason: See comment - Comment: infusing) 0901 (Given - Provider: Ebony Ramirez R Mikki)2106 (Given - Provider: Chiquita Morel RN) 0905 (Given - Provider: Rodrigue Kennedy RN) 5 mL, Intravenous, 2 TIMES DAILY, First dose on Thu04/25/20 at 1015, Until Discontinued, Recovery (Recovery-Hospital Unit), Routine Continuous Medication Order 04/25/2020 04/26/2020 04/27/2020 lactated ringers infusion (CANCELED) 0505 (MAY Hold - Provider: Admin Adt - Reason: Transfer to a Procedural area)0729 (MAY Unhold - Provider: Rosario Jennings RN)0732 (New Bag - Provider: Rosario Jennings RN) 100 mL/hr, at 100 mL/hr, Intravenous, CO NTINUOUS, Starting Tu04/24/20 at 2246, Until Thu04/25/20 at 1020 sodium chloride 0.9% infusion (CANCELED) 1048 (New Bag - Provider: Ebony Ramirez RN) 0138 (New Bag - Provider: Dell Walker) 100 mL/hr, at 100 mL/hr, Intravenous, CO NTINUOUS, Starting Thu04/25/20 at 1115, Until Kiara 04/26/20 at 0717 PRN Medication Order 04/25/2020 04/26/2020 04/27/2020 BUpivacaine (pf) (Marcaine) (5 mg/mL) 0.5% injection ( CANCELED) 0648 (Given - Provider: Liberty Swann MD) ONCE PRN, Starting Thu04/25/20 at 0648, Until Thu04/27/20 at 1516, Intra- Operative (Intra-Procedure), Routine lidocaine (Xylocaine) 1% (10 mg/mL) injection 3 mg 3 mg (0.3 mL), Subcutaneous, ONCE PRN, 1 dose, Starting Thu04/25/20 at 0927, Until Thu04/27/20 at 1516, for discomfort with PIV insertion, Recovery (Recovery-Hospital Unit), Routine naloxone (Narcan) (0.4 mg/mL) injection 0.2 mg 0.2 mg, Intravenous, EVERY 1 MIN PRN, St arting Thu04/25/20 at 0927, Until Thu04/27/20 at 1516, Opioid Reversal, If respiratory rate less than 6 OR the patient is unable to arouse OR SpO2 is declining, G nathan for respiratory rate of less than or equal to 6 and patient is heavily sedated or unarousable. May repeat every 60 seconds to increase respiratory rate. DO NOT exceed 2 mg total dose., Recovery (Recovery-Hospital Unit), Routine ondansetron (pf) (Zofran) (2 mg/mL) injection 4-8 mg(Linked Grou p 2) 4-8 mg, Intravenous, EVERY 8 HOURS PRN, Starting Thu04/25/20 at 0927, Until Thu04/27/20 at 1516, Nausea, Start with 4mg and if ineffective in 30 minutes, give an additional 4mg If multiple antiemetics are ordered, give ondansetron first. ondansetron (Zofran) tablet 4-8 mg(Linked Group 2) 4-8 mg, Oral, EVERY 8 HOURS PRN, Startin g Thu04/25/20 at 09, Until Thu04/27/20 at 1516, Nausea, Vomiting, If multiple antiemetics are ordered, use ondansetron first. PO Preferred. If patient unabl e to take PO, may give IV if ordered. St art with 4mg and if ineffective in 45 minutes, give an additional 4mg. If unable to take PO, may give IV., Routine phenol 1.4% (CHLORASEPTIC) spray 1 spray 1 spray, Oral, EVERY 2 HOURS PRN, Starti ng Thu04/25/20 at 0909, Until Thu04/27/20 at 1516, Irritation, Routine sodium chloride 0.9 % (flush) flush 5-20 mL 5-20 mL, Intravenous, EVERY 1 MIN PRN, S tarting Thu04/25/20 at 0927, Until Thu04/27/20 at 1516, flush, Flush pertains to all indwelling lines. Flush per protocol found in the job aid using the link prov ided on this medication record., Recovery (Recovery-Hospital Uni t), Routine Linked Groups Order Group 1: nicotine (NICODERM CQ) 7 mg/24 hr patch 7 mgJump to med 7 mg (1 patch), Transdermal, DAILY, Firs t dose on Thu04/25/20 at 1015, Until Discontinued
Apply new patch to nonhairy, clean, dry skin on the upper body or upper outer arm; each patch should be applied to a different site
Routine And nicotine (NICODERM CQ) 7 mg/24 hr patch Patch VerificationJump to med Transdermal, 2 TIMES DAILY, First dose o n Thu04/25/20 at 1400, Until Discontinued
Verify nicotine 7 mg/24 hr patch.
And nicotine (NICODERM CQ) 7 mg/24 hr patch Patch RemovalJump to med Transdermal, DAILY, First dose on Kiara 02/03 at 0200, Until Discontinued
Remove nicotine 7 mg/24 hr patch
Group 2: ondansetron (Zofran) tablet 4-8 mgJump to med 4-8 mg, Oral, EVERY 8 HOURS PRN, Startin g Thu04/25/20 at 0927, Until Thu04/27/20 at 1516, Nausea, Vomiting
If multiple antiemetics are ordered, use ondansetron first. PO Preferred . If patient unable to take PO, may give IV if ordered. Start with 4mg and if ineffective in 45 minutes, give an additional 4mg. If unable to take PO, may give IV.
Routine Or ondansetron (pf) (Zofran) (2 mg/mL) injection 4-8 mgJump to med 4-8 mg, Intravenous, EVERY 8 HOURS PRN, Starting Thu04/25/20 at 0927, Until Thu04/27/20 at 1516, Nausea
Start with 4mg and if ineffective in 30 minutes, give an additional 4mg If mu ltiple antiemetics are ordered, give ond ansetron first.
documented in this encounter Care Teams [employer] Curator Relationship Specialty Start Date End Date Hanane Martinez MD PCP - General Internal Medicine 08/09/19 04/23/21 [address] [place] [id number] documented as of this encounter
--- OUTSIDE RECORDS SUMMARY | 2021-09-27 14:54 | XMS_ITS | Encounter Summary ---
:1960 [place] [address] Care Team Providers Name Role Phone Ally Ortiz APRN Primary Care Provider Reason for Visit Reason Comments Abdominal Pain Auth/Cert Specialty Diagnoses / Procedures Referred By Contact Refer red To Contact Diagnoses Incarcerated ventral hernia Procedures emergency ipi Referral ID Status Reason Start Date Expiration Date Visits Requ ested Visits Authorized [id number] 1 1 Encounter Details Date Type Department Care Team Description 04/25/2021 Surgery Main Operating Room Katalina Franco, HER MATEO REPAIR, VENTRAL [facility] OR INCISIONAL, [facility] RECURRENT, INCARCERATED [facility] (WRVU 15.53) [facility] [place] [address] [place], [place] [id number] [phone] (Wo rk) Social History Tobacco Use Types [...] Sign Reading Time Taken Comments Blood Pressure 174/98 04/25/2021 6:00 AM EST Pulse 75 04/25/2021 6:00 AM EST Temperature 36.5 ??C (97.7 ??F) 04/24/2021 3:07 PM EST Respiratory Rate 17 04/25/2021 6:00 AM EST Oxygen Saturation 100% 04/25/2021 6:00 AM EST Inhaled Oxygen Concentration - - Weight 107 kg (236 lb) 04/24/2021 3:07 PM EST Height - - Body Mass Index 46.33 04/26/2020 3:39 PM EST documented in this encounter Discharge Summaries Daniela aVn MD - 04/28/2021 9:09 AM EST Acute [...] subsequent reversal with Dr. Miryam Wiley here [facility] in September 2019. She underwent primary repair of an incarcerated ventral incisional hernia in Apr [address] Frost. Since surgery, she reports noticing recurrence of the hernia many months ago but no discomfort or pain. Then, at the end of 2020, she was admitted to [facility] with obstructive symptoms that resolved with conservative [...] 2, NGT in place, offer enema : Lilli d/c'd 04/26. ID: d/c [email or web address] ENDO: SSI,diabteres team consult Home Meds ?? Hold home hydrochlorothiazide ?? Hold home prednisone ?? Hold home celcoxib Pending Lab Data at Discharge: none Pertinent Lab Data: Recent Labs 04/28/2122304/27/2123104/26/21157 WBC 12.3* 14.3* 12.2* HGB 13.9 13.3 13.4 HCT 42.9 41.8 41.3 PLATELET 241 214 195 Recent Labs 04/28/2122304/27/2123104/26/21157 NA 140 141 140 K 3.6 3.4* [...] who have questions please contact the health medicare nurse that requested your imaging first. Electronically signed by: Werner Fletcher MD, [facility] ([phone]), at 04/24/2021 11:20 PM Discharge Physical Examination: Vital Signs: Last [...] 1. You will have follow-up appointments at [facility] as indicated in the ???Future Appointments [...] on the next business day. Please call [phone] if you do not hear from us by that time, as your timely follow-up is very important to us. Your care was managed by the Trauma and Acute Care Surgery Team at [facility]. If you have any questions or concerns, please feel free to contact us. Provider Contact Information: General Surgery: [facility] (after business hours): Primary Care Physician: Ally Ortiz APRN General Instructions None Your care was managed by the Trauma and Acute Care Surgery Team at [facility]. If you have any questions or concerns, please feel free to contact us. Provider Contact Information: General Surgery Clinic: Nurses line for questions: [facility] (after business hours): CC: TAMMY Marx APRN Signed: Daniela Van MD Department of Surgery 04/28/2021 Acute Care Surgery Pager [phone] documented in this encounter Discharge Instructions Patient [...] 1. You will have follow-up appointments at [facility] as indicated in the ???Future Appointments [...] on the next business day. Please call [phone] if you do not hear from us by that time, as your timely follow-up is very important to us. Your care was managed by the Trauma and Acute Care Surgery Team at [facility]. If you have any questions or concerns, please feel free to contact us. Provider Contact Information: General Surgery: [facility] (after business hours): Primary Care Physician: Ally Ortiz APRN documented in this encounter Medications at Time of Discharge Medication Sig Dispensed Refills Start Date End Date hydroCHLOROthiazide Take 25 mg by 0 04/22/2021 (Hydrodiuril) 25 mg Tablet mouth daily. Eszopiclone (LUNESTA) 1 mg Take 1 mg by 0 04/18/2 022 09/19/2021 Tablet mouth nightly as needed. [...] pt need to f-u with surgeon or CUSTOMS COLLECTOR (please indicate reason if attending provider): CUSTOMS COLLECTOR How soon should TACS f/u be? 2 [...] Ortiz APRN CC:Noelle Van MD 04/28/2021 Farheen Doll RN - 04/28/2021 5:56 AM EST OUTCOME [...] BR with 1A and FWW. ?? LBM 2/, liquid, yellow/pink w/ mucoid consistency. Physical Exam: Temp: 36.6 ??C (97.8 ??F) (MD notified) Temp: [36.6 ??C (97.8 ??F)-37 ??C (98.6 ??F)] Heart Rate: 60 Heart Rate: -- BP: (!) 194/101 (Reported elevated BP to RN.) BP: (177-212)/(86-101) Resp: 17 Resp: [17-20] SpO2: 91 % SpO2: [88 %-97 %] 2LNC2/13 Physical Exam: General: Alert, Ox3 no acute [...] OR HYDROmorphone, glucose 40% oral geL OR gdvthjew19% OR glucagon Labs: Last 3 wbc, hgb, [...] who have questions please contact the health medicare nurse that requested your imaging first. Electronically signed by: Werner Fletcher MD, [facility] ([phone]), at 04/24/2021 11:20 PM A/P: 60F with current smoker (20 pk-yr) [...] MD 04/28/2021 PGY1-General Surgery [facility] Surgery Service #[id number] Acute Care Surgery Attending Addendum: I have seen this patient and agree with the above note with the following additions and/or modifications. Eating well with no nausea or abdominal pain. Having bowel movements. Incision clean, dry and intact with shelley. Plan for discharge home today. Monserrat Avery MSW - 04/27/2021 12:10 PM EST OFFICE of CARE MANAGEMENT CCM Vehicle Window Tinter received a consult to follow up with Ms. Montgomery regarding discharge services and Advance Directive assistance. Vehicle Window Tinter spoke with Ms. Montgomery and discussed discharge plan and community resources. Ms. Montgomery stated she does not need any community resource referrals or Social Work assi stance at this time. She stated her family members are going to serve in the capacity of Caregiver and assist her with completing the Advance Directive form. Vehicle Window Tinter verbalized understanding. There are no additional concerns [...] Paul, Purposeful Rounding, Bed Alarm Set Gabriel Daniel MD - 04/27/2021 4:57 AM EST ACS [...] overnight (numbing spray ordered) ?? 100cc since 0 ?? UA ordered ?? Refusing meds and [...] OR HYDROmorphone, glucose 40% oral geL OR zaosgnhr09% OR glucagon Labs: Last 3 wbc, hgb, [...] who have questions please contact the health medicare nurse that requested your imaging first. Electronically signed by: Werner Fletcher MD, [facility] ([phone]), at 04/24/2021 11:20 PM A/P: 60F with current smoker (20 pk-yr) [...] MD 04/27/2021 PGY1-General Surgery [facility] Surgery Service #[id number] Acute Care Surgery Attending Addendum: I have [...] list (status C) due to: ileus Farheen Braga RN - 04/26/2021 9:09 PM EST Pt refusing all meds and glucose checks. States, Not until I can eat and get this tube out of my nose. MD notified. Rachel Tee RN - 04/26/2021 6:00 PM EST NG [...] Encouraged close f/u with her PCP. Gabriel Caraballo MD - 04/26/2021 5:28 AM EST ACS [...] who have questions please contact the health medicare nurse that requested your imaging first. Electronically signed by: Werner Fletcher MD, [facility] ([phone]), at 04/24/2021 11:20 PM A/P: 60F with current smoker (20 pk-yr) [...] 04/26, monitor UOP over day ID: d/c zosyn ENDO: SSI,diabteres team consult Home Meds ?? Hold home hydrochlorothiazide ?? Hold home prednisone ?? Hold home celcoxib DISPO/Discharge Planning: tbd Sage Blunt MD 04/26/2021 PGY1-General Surgery [facility] Surgery Service #[id number] Acute Care Surgery Attending Addendum: I have [...] of two midnights or is on the [facility] inpatient only procedure list (status C) due [...] 0350 -- less than 1 Urethral Catheter 04/25/21 033 latex 14 5 10 04/25/21331 -- less than 1 Naso/Oral Tube 04/25/213 04/25/21122 -- less than 1 Recent Results [...] PCR Not Detected Not Detected SARS-CoV-2 Source CUSTOMS COLLECTOR Swab Basic Metabolic Panel (non-fasting) Result Value [...] primary team Sage Blunt MD 04/25/2021 Paul Modi RN - 04/25/2021 6:39 AM EST 0530- Pt arrived in PACU, placed on monitor, alarms on, 6L simple mask in place, Expiratory wheeze audible, ABD midline Dry Intact, Abdominal binder in place, NGT to LWS, flushed, VSS, will monitor. 0600- Labs sent off, Duoneb admin, will monitor. 0630- Labs WNL will report off to day shift Sage Blunt MD - 04/25/2021 5:54 AM EST ACS [...] who have questions please contact the health medicare nurse that requested your imaging first. Electronically signed by: Werner Fletcher MD, [facility] ([phone]), at 04/24/2021 11:20 PM A/P: 60F with current smoker (20 pk-yr) [...] Franco MD - 04/25/2021 12:[address] [facility] Department of Surgery Admission History & [...] subsequent reversal with Dr. Miryam Wiley here [facility] in September 2019. She underwent primary repair of an incarcerated ventral incisional hernia in Apr [address] Frost. Since surgery, she reports noticing recurrence of the hernia many months ago but no discomfort or pain. Then, at the end of 2020, she was admitted to [facility] with obstructive symptoms that resolved with conservative [...] 2.82) performed by Werner Fournier MD at [facility] MAIN OR ??? PRO EXPLORATORY OF ABDOMEN N/A 04/25/2020 @EXPLORATORY LAPAROTOMY, WITH/WITHOUT BIOPSY(S) (WRVU 12.54) performed by Jerod Frost MD at [facility] MAIN OR ??? PRO MOBILIZE SPLENIC FLEX N/A 09/14/2019 @MOBILIZATION OF SPLENIC FLEXURE (WRVU 2.23) performed by Miryam Wiley MD at [facility] MAIN OR ??? PRO OMENTAL FLAP, INTRA-ABDOMINAL 09/14/2019 @OMENTAL FLAP, INTRA-ABDOMINAL (WRVU 6.54) performed by [facility]am [facility] ??? TUBAL LIGATION MEDS: Medication Sig [...] that Vee personally reviewed. 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 Jassi Monae E - 04/24/2021 9:[address] made aware patient is agreeable for scan. Chel Iqbal RN - 04/24/2021 7:16 PM EST Report to [place] NRP. Chel Iqbal RN - 04/24/2021 6:05 PM [...] RN - 04/24/2021 5:25 PM EST This jingle writer informed by Markus ALCARAZ that the pt had a desaturation w/ a good pleth noted. FiO2 via NC at 2L applied. Continue to monitor. Medardo Cooper MD - 04/24/2021 3:17 PM EST ED [...] she had her hernia reduced here at [facility]. The patient states the abdominal pain began [...] src: Oral SpO2: 97 % O2 Device: O2 Flow Rate (L/min): [...] hours. Last Covid Recent Labs 04/24/21 [id number] Abdomen & Pelvis w Contrast (Results Pending) ED Course as of 04/24/212208Apr 24, 20211953 CT Abdomen & Pelvis w Contrast Procedures [...] pending CT abdomen Medardo Cooper MD Resident 04/24/21 0988 Associated attestation - Viviana Camacho MD - [...] the Emergency Department. Noel Iqbal PA 04/24/21 5829 documented in this encounter Miscellaneous Notes Plan [...] SBA with ADL's Surveillance [continuous indirect monitoring]: Masimo, [...] COVID test: Lab Results Component Value Date [id number] Not Detected 04/24/2021 Present on Admission: ??? Incarcerated ventral hernia Hospitalizations Within the Past 30 Days: no previous admission in last 30 days Patient receiving hospital care under Inpatient status. Admission order reviewed. Primary Insurance on file: MEDICAID [place] Secondary Insurance on file:@ Primary care provider on file: Ally Ortiz, MANAGER COUNTRY [phone] Pharmacy: [facility] [address] [place] [address] Advance Care Planning: Attempt Cardiopulmonary Resuscitation - [...] grab bar - toilet, shower chair [address] [facility] [address] Social & Family Supports: All names listed [...] is needed patient requests a referral to: [facility]. PHONE: [phone] FAX: [phone] Plan: Patient to d/c to home via family when medically ready. Registered Nurse Colorer / Vehicle Window Tinter will continue to follow patient???s progress and remain available if situation changes for coordination of care, psychosocial support and/or discharge planning. Office of Care Management Chidi Tate RN CM(remote) Aria Shultz RN CM Pager [phone] Op Note - Bentley Dale MD - 04/25/2021 5:19 AM EST [facility] Operative Note Patient Name: Jahaira Montgomery : [id number] MR#: [id number] Case Date: 04/25/2021 Surgeon: Surgeon(s) and Role: [...] into the abdomen. There were several other Martiniquais cheese type defects inferior to this along [...] the midline with a series of interrupted cgowlt-cl-fjqfw 0 PDS sutures. The skin was reapproximated [...] Dale MD - 04/25/2021 12:[address] [facility] Department of Surgery Admission History & [...] subsequent reversal with Dr. Miryam Wiley here [facility] in September 2019. She underwent primary repair of an incarcerated ventral incisional hernia in Apr [address] Frost. Since surgery, she reports noticing recurrence of the hernia many months ago but no discomfort or pain. Then, at the end of 2020, she was admitted to [facility] with obstructive symptoms that resolved with conservative [...] 2.82) performed by Werner Fournier MD at [facility] MAIN OR ??? PRO EXPLORATORY OF ABDOMEN N/A 04/25/2020 @EXPLORATORY LAPAROTOMY, WITH/WITHOUT BIOPSY(S) (WRVU 12.54) performed by Jerod Frost MD at [facility] MAIN OR ??? PRO MOBILIZE SPLENIC FLEX N/A 09/14/2019 @MOBILIZATION OF SPLENIC FLEXURE (WRVU 2.23) performed by Miryam Wiley MD at [facility] MAIN OR ??? PRO OMENTAL FLAP, INTRA-ABDOMINAL 09/14/2019 @OMENTAL FLAP, INTRA-ABDOMINAL (WRVU 6.54) performed by Miryam Wiley MD at [facility] OR ??? PRO REPAIR RECURR INCIS HERNIA, DEONTE N/A 04/25/2020 HERNIA REPAIR, VENTRAL OR INCISIONAL, RECURRENT, INCARCERATED (WRVU 15.53) performed by Jerod Frost MD at [facility] MAIN OR ??? PRO SIGMOIDOSCOPY, DIAGNOSTIC N/A 09/14/2019 SIGMOIDOSCOPY, FLEXIBLE W/WO SPECIMEN BY BRUSHING OR WASHING (WRVU 0.84) performed by Miryam Wiley MD at [facility] OR ??? TUBAL LIGATION MEDS: Medication Sig [...] 09/30/2021 Office Visit General Surgery Paloma Mota, MANAGER COUNTRY [facility] GENERAL SURGERY [place], [place] [address] (Wo rk) 09/30/2021 Office Visit Infectious Diseases Werner Harrell MD [facility] INFECTIOUS DISEA [facility] [place] [address] (Wo rk) documented as of this [...] Results POCT Glucose (04/28/2021 7:45 AM EST) P athologist Signature POC Glucose 103 65 - 199 [facility] mg/dL [facility] LABORATORY Comment: Supplemental ranges: <140 mg/dL before meals <180 mg/dL all other times of the day Specimen Anatomical Collection Method Collection Time Receive d Time (Source) Location / / Volume Laterality Blood 04/28/2021 7:45 AM 2 7:45 EST AM EST Gabriel Daniel MD POINT OF CARE TEST ORDERABLE S Performing Organization Address City/[facility]/ZIP [facility] Phon e Number [address] POCT Glucose (04/28/2021 3:59 AM EST) P athologist Signature POC Glucose 113 65 - 199 [place] mg/dL [facility] LABORATORY Comment: Supplemental ranges: <140 mg/dL before meals <180 mg/dL all other times of the day Specimen Anatomical Collection Method Collection Time Receive d Time (Source) Location / / Volume Laterality Blood 04/28/2021 3:59 AM 2 3:59 EST AM EST Gabriel Daniel MD POINT OF CARE TEST ORDERABLE S Performing Organization Address City/[facility]/[place] [address] Phosphorus (04/28/2021 2:24 AM EST) P athologist Signature Phosphorus 3.1 2.5 - 4.5 [place] mg/dL [facility] LABORATORY Specimen Anatomical Collection Method Collection Time Receive d Time (Source) Location / / Volume Laterality Blood 04/28/2021 2:24 AM 2 2:49 EST AM EST Resulting Agency Comment Spec In Lab Katalina Franco MD CHEMISTRY ORDERABLES Performing Organization Address City/[facility]/ZIP Code Phon e Number [address] Magnesium (04/28/2021 2:24 AM EST) P athologist Signature Magnesium 0.77 0.69 - 1.07 [facility] mmol/L [facility] LABORATORY Specimen Anatomical Collection Method Collection Time Receive d Time (Source) Location / / Volume Laterality Blood 04/28/2021 2:24 AM 2 2:49 EST AM EST Resulting Agency Comment Spec In Lab Katalina Franco MD CHEMISTRY ORDERABLES Performing Organization Address City/State/ZIP [place] [address] (ABNORMAL) Basic Metabolic Panel (non-fasting) (04/28/2021 2:24 AM EST) P athologist Signature Glucose Lvl 110 65 - 199 [facility] mg/dL [facility] LABORATORY Comment: Diabetes: >=200 mg/dL plus symp toms BUN 14 8 - 18 mg/dL [facility] LABORATORY Creatinine 0.60 (L) 0.70 - 1.20 mg/dL [facility] LABORATORY Sodium 140 135 - 145 mmol/L [facility] LABORATORY Potassium 3.6 3.5 - 5.0 mmol/L [facility] LABORATORY Comment: Please note: ??Patients with WBC >100,00 0 may have falsely elevated Potassium levels. ??For accurate Potassium quantif ication in these patients send serum separator tube (gold top) for subsequent determinations. ??Contact the Clinical Chemistry Laboratory if there are any qu estions. Chloride 100 98 - 107 mmol/L [facility] LABORATORY CO2 28 22 - 31 mmol/L [facility] LABORATORY Anion Gap 12 5 - 15 mmol/L [facility] LABORATORY Calcium 8.9 8.5 - 10.5 mg/dL [facility] LABORATORY Estimated GFR 100 >=60 mL/min/1.73 [...] City/State/ZIP Code Phon e Number [place] [id number] (ABNORMAL) Hemogram (04/28/2021 2:24 AM EST) Analysis Performed At Patho logist Time Signature WBC 12.3 (H) 4.0 - 9.5 [facility] x10(3)/[facility] LABORATORY RBC 4.55 4.00 - [facility] 5.21 [facility] x10(6)/[facility] LABORATORY Hemoglobin 13.9 11.7 - [facility] 15.[facility] g/dL [facility] LABORATORY Hematocrit 42.9 35.7 - [facility] 45.8 % [facility] LABORATORY MCV 94.3 82.6 - [facility] 94.4 [facility] LABORATORY MCH 30.5 27.1 - [place] 32.0 pg [facility] LABORATORY MCHC 32.4 31.7 - [facility] 35.0 g/dL [facility] LABORATORY Platelets 241 145 - 357 [facility] x10(3)/[facility] LABORATORY RDWSD 44.8 37.0 - [facility] 46.0 [facility] LABORATORY RDWCV 12.8 11.5 - [facility] 14.1 % [facility] LABORATORY MPV 9.7 7.6 - 12.9 [facility] nRBC % Auto 0.0 % [facility] LABORATORY nRBC Abs Auto 0.000 0.000 - [place] 0.000 [facility] x10(3)/[facility] LABORATORY Specimen Anatomical Collection Method Collection Time Receive d Time (Source) Location / / Volume Laterality Blood 04/28/2021 2:24 AM 2 2:49 EST AM EST Resulting Agency Comment Spec In Lab Katalina Franco MD HEMATOLOGY ORDERABLES Performing Organization Address City/[facility]/ZIP [place] [address] POCT Glucose (04/27/2021 11:08 PM EST) P athologist Signature POC Glucose 97 65 - 199 [place] mg/dL [facility] LABORATORY Comment: Supplemental ranges: <140 mg/dL before meals <180 mg/dL all other times of the day Specimen Anatomical Collection Method Collection Time Receive d Time (Source) Location / / Volume Laterality Blood 04/27/2021 11:08 04/27/2021 PM EST 11:08 PM EST Gabriel Daniel MD POINT OF CARE TEST ORDERABLE S Performing Organization Address City/State/ZIP [place] [address] COVID-19 PCR (04/27/2021 8:00 PM EST) Patholo gist Method Time Signature SARS-CoV-2 Not Detected Not Detected [facility] LAB[facility] Comment: This result should be interpreted [...] diagnosis of COVID-19 is performed using the Sensing Electromagnetic Plus Alinity m VERONICA S-CoV-2 Assay as authorized by the FDA Emergency Use Authorization (EUA). This EUA assay is intended for In-vitro Diagnostic (IVD) use with respiratory sp ecimens such as nasopharyngeal swabs collected from individuals during the ac bertha phase of infection. This assay is performed based on the instructions for use provided by [employer] and additional guidance provided by CDC and FDA. Testing is performed in the Clinical Genomics and Advanced Technolog y Laboratory within the Department of Pathology and Laboratory Medicine at [facility], certified under the Clinical Laboratory Improvement Amendments [...] is infected. As required or requested by main campus medical center [facility], positive specimens may be sent for [...] clinical management guidance information are available at [facility] CDC Coronavirus Disease 2019 (COVID-19) webpage under Information fo r Healthcare Professionals (https://www.cdc.gov/coronavirus/2019-nc ov/hcp/index.html) Additional information about this and ot her EUA tests can be found in provider and patient fact sheets at the following FDA website: https://www.fda.gov/medical-devices/kujxibtldvp-dfpvkfh-6387-bzilp-87-fqjzurafu- fyx-ivtknolktppzld-nikutjk-devices/htqyb-emaxxopshzm-zmic SARS-Cov-2 RNA Source CUSTOMS COLLECTOR Swab [facility] LABORATORY Specimen (Source) Anatomical Collection Method Collection Time Re ceived Time Location / / Volume Laterality Nasopharyngeal Swab 04/27/2021 8:00 04/28 PM EST 4:08 PM EST Comment: Symptoms->Surveillance Resulting Agency Comment Spec In Lab Gabriel Daniel MD MICROBIOLOGY - GENERAL ORDER [place] Performing Organization Address City/State/ZIP [place] [address] POCT Glucose (04/27/2021 7:15 PM EST) athologist Signature POC Glucose 90 65 - 199 [place] mg/dL [facility] LABORATORY Comment: Supplemental ranges: <140 mg/dL before meals <180 mg/dL all other times of the day Specimen Anatomical Collection Method Collection Time Receive d Time (Source) Location / / Volume Laterality Blood 04/27/2021 7:15 PM 2 7:15 EST PM EST Gabriel Daniel MD POINT OF CARE TEST ORDERABLE S Performing Organization Address City/State/ZIP Code Phon e Number [address] POCT Glucose (04/27/2021 3:24 PM EST) athologist Signature POC Glucose 103 65 - 199 [place] mg/dL [facility] LABORATORY Comment: Supplemental ranges: <140 mg/dL before meals <180 mg/dL all other times of the day Specimen Anatomical Collection Method Collection Time Receive d Time (Source) Location / / Volume Laterality Blood 04/27/2021 3:24 PM 2 3:24 EST PM EST Gabriel Daniel MD POINT OF CARE TEST ORDERABLE S Performing Organization Address City/State/ZIP Code Phon e Number [address] POCT Glucose (04/27/2021 12:31 PM EST) athologist Signature POC Glucose 177 65 - 199 [place] mg/dL [facility] LABORATORY Comment: Supplemental ranges: <140 mg/dL before meals <180 mg/dL all other times of the day Specimen Anatomical Collection Method Collection Time Receive d Time (Source) Location / / Volume Laterality Blood 04/27/2021 12:31 04/27/2021 PM EST 12:31 PM EST Gabriel Daniel MD POINT OF CARE TEST ORDERABLE S Performing Organization Address City/State/ZIP Code Phon e Number [address] POCT Glucose (04/27/2021 10:10 AM EST) athologist Signature POC Glucose 77 65 - 199 [place] mg/dL [facility] LABORATORY Comment: Supplemental ranges: <140 mg/dL before meals <180 mg/dL all other times of the day Specimen Anatomical Collection Method Collection Time Receive d Time (Source) Location / / Volume Laterality Blood 04/27/2021 10:10 04/27/2021 AM EST 10:10 AM EST Gabriel Daniel MD POINT OF CARE TEST ORDERABLE S Performing Organization Address City/[facility]/ZIP Code Phon e Number [address] POCT Glucose (04/27/2021 4:09 AM EST) athologist Signature POC Glucose 89 65 - 199 [place] mg/dL [facility] LABORATORY Comment: Supplemental ranges: <140 mg/dL before meals <180 mg/dL all other times of the day Specimen Anatomical Collection Method Collection Time Receive d Time (Source) Location / / Volume Laterality Blood 04/27/2021 4:09 AM 2 4:09 EST AM EST Gabriel Daniel MD POINT OF CARE TEST ORDERABLE S Performing Organization Address City/[facility]/ZIP Code Phon e Number [address] Phosphorus (04/27/2021 2:32 AM EST) athologist Signature Phosphorus 2.7 2.5 - 4.5 [place] mg/dL [facility] LABORATORY Specimen Anatomical Collection Method Collection Time Receive d Time (Source) Location / / Volume Laterality Blood 04/27/2021 2:32 AM 2 3:02 EST AM EST Resulting Agency Comment Spec In Lab Katalina Franco MD CHEMISTRY ORDERABLES Performing Organization Address City/[facility]/[place] [address] Magnesium (04/27/2021 2:32 AM EST) athologist Signature Magnesium 0.81 0.69 - 1.07 [facility] mmol/L [facility] LABORATORY Specimen Anatomical Collection Method Collection Time Receive d Time (Source) Location / / Volume Laterality Blood 04/27/2021 2:32 AM 2 3:02 EST AM EST Resulting Agency Comment Spec In Lab Katalina Franco MD CHEMISTRY ORDERABLES Performing Organization Address City/State/ZIP [place] [address] (ABNORMAL) Basic Metabolic Panel (non-fasting) (04/27/2021 2:32 AM EST) P athologist Signature Glucose Lvl 96 65 - 199 [facility] mg/dL [facility] LABORATORY Comment: Diabetes: >=200 mg/dL plus symp toms BUN 15 8 - 18 mg/dL [facility] LABORATORY Creatinine 0.61 (L) 0.70 - 1.20 mg/dL [facility] LABORATORY Sodium 141 135 - 145 mmol/L [facility] LABORATORY Potassium 3.4 (L) 3.5 - 5.0 mmol/L [facility] LABORATORY Comment: Please note: ??Patients with WBC >100,00 0 may have falsely elevated Potassium levels. ??For accurate Potassium quantif ication in these patients send serum separator tube (gold top) for subsequent determinations. ??Contact the Clinical Chemistry Laboratory if there are any qu estions. Chloride 100 98 - 107 mmol/L [facility] LABORATORY CO2 30 22 - 31 mmol/L [facility] LABORATORY Anion Gap 11 5 - 15 mmol/L [facility] LABORATORY Calcium 8.7 8.5 - 10.5 mg/dL [facility] LABORATORY Estimated GFR 100 >=60 mL/min/1.73 [...] / Volume Laterality Blood 04/27/2021 2:32 AM 2 3:02 EST AM EST Resulting Agency Comment Spec In Lab Katalina Franco MD CHEMISTRY ORDERABLES Performing Organization Address City/State/ZIP [place] [address] (ABNORMAL) Hemogram (04/27/2021 2:32 AM EST) Analysis Performed At Patho logist Time Signature WBC 14.3 (H) 4.0 - 9.5 [facility] x10(3)/[facility] LABORATORY RBC 4.32 4.00 - [place] 5.21 [facility] x10(6)/[facility] LABORATORY Hemoglobin 13.3 11.7 - [facility] 15.[facility] g/dL [facility] LABORATORY Hematocrit 41.8 35.7 - [facility] 45.8 % [facility] LABORATORY MCV 96.8 (H) 82.6 - [facility] 94.4 [facility] LABORATORY MCH 30.8 27.1 - [place] 32.0 pg [facility] LABORATORY MCHC 31.8 31.7 - [facility] 35.0 g/dL [facility] LABORATORY Platelets 214 145 - 357 [facility] x10(3)/[facility] LABORATORY RDWSD 47.0 (H) 37.0 - [facility] 46.0 [facility] LABORATORY RDWCV 13.2 11.5 - [facility] 14.1 % [facility] LABORATORY MPV 9.7 7.6 - 12.9 [facility] LABORATORY nRBC % Auto 0.0 % [facility] LABORATORY nRBC Abs Auto 0.000 0.000 - [facility] 0.000 [facility] x10(3)/[facility] LABORATORY Specimen Anatomical Collection Method Collection Time Receive d Time (Source) Location / / Volume Laterality Blood 04/27/2021 2:32 AM 2 3:02 EST AM EST Resulting Agency Comment Spec In Lab Katalina Franco MD HEMATOLOGY ORDERABLES Performing Organization Address City/State/[place] [address] POCT Glucose (04/26/2021 11:16 PM EST) P athologist Signature POC Glucose 82 65 - 199 [facility] mg/dL [facility] LABORATORY Comment: Supplemental ranges: <140 mg/dL before meals <180 mg/dL all other times of the day Specimen Anatomical Collection Method Collection Time Receive d Time (Source) Location / / Volume Laterality Blood 04/26/2021 11:16 04/26/2021 PM EST 11:16 PM EST Gabriel Daniel MD POINT OF CARE TEST ORDERABLE S Performing Organization Address City/[facility]/[place] [address] (ABNORMAL) Urinalysis Microscopic Exam (04/26/2021 6:55 PM EST) P athologist Signature RBC UA 47 (H) 0 - 4 /HPF [facility] LABORATORY WBC UA 7 (H) 0 - 5 /HPF [facility] LABORATORY Squam Epith UA 1 <=4 /HPF [facility] LABORATORY Hyaline Cast 1 0 - 2 /LPF [facility] LABORATORY Specimen (Source) Anatomical Collection Method Collection Time Re ceived Time Location / / Volume Laterality Indwelling 04/26/2021 6:55 04/26/2021 7 :04 Catheter Urine PM EST PM EST Resulting Agency Comment Spec In Lab Sage Blunt MD URINE ORDERABLES Performing Organization Address City/State/[place] [address] (ABNORMAL) Urinalysis with reflex Culture (04/26/2021 6:55 PM EST) Patholo gist Method Time Signature Glucose UA Negative Negative [facility] mg/dL [facility] LABORATORY Protein UA 30 (A) Negative [facility] mg/dL [facility] LABORATORY Bilirubin UA Negative Negative [facility] mg/dL [facility] LABORATORY Comment: Clinical correlation required for positi ve Urine Bilirubin results as false positive may occur with some drugs and d rug related products. If a false positive is suspected a serum total bili herring should be considered if clinically indicated. Urobilinogen UA Normal Normal mg/dL [facility] LABORATORY pH UA >=9.0 (A) 5.0 - 8.0 [facility] LABORATORY Blood UA Moderate (A) Negative mg/dL [facility] LABORATORY Ketones UA 40 (A) Negative mg/dL [facility] LABORATORY Nitrite UA Negative Negative [facility] LABORATORY Leukocytes UA Negative Negative mcL [facility] LABORATORY Appearance UA Clear Clear [facility] LABORATORY Spec [place] UA 1.024 1.005 - 1.030 [facility] LABORATORY Color UA Yellow Yellow [facility] LABORATORY Culture Reflexed No [facility] LABORATORY Specimen (Source) Anatomical Collection Method Collection Time Re ceived Time Location / / Volume Laterality Indwelling 04/26/2021 6:55 04/26/2021 7 :04 Catheter Urine PM EST PM EST Resulting Agency Comment Spec In Lab Gabriel Daniel MD URINE ORDERABLES Performing Organization Address City/State/ZIP Code Phon e Number [address] POCT Glucose (04/26/2021 12:03 PM EST) athologist Signature POC Glucose 105 65 - 199 [facility] mg/dL [facility] LABORATORY Comment: Supplemental ranges: <140 mg/dL before meals <180 mg/dL all other times of the day Specimen Anatomical Collection Method Collection Time Receive d Time (Source) Location / / Volume Laterality Blood 04/26/2021 12:03 04/26/2021 PM EST 12:03 PM EST Katalina Franco MD POINT OF CARE TEST ORDERABLE S Performing Organization Address City/State/ZIP Code Phon e Number [address] POCT Glucose (04/26/2021 8:01 AM EST) athologist Signature POC Glucose 137 65 - 199 [facility] mg/dL [facility] LABORATORY Comment: Supplemental ranges: <140 mg/dL before meals <180 mg/dL all other times of the day Specimen Anatomical Collection Method Collection Time Receive d Time (Source) Location / / Volume Laterality Blood 04/26/2021 8:01 AM 2 8:01 EST AM EST Katalina Franco MD POINT OF CARE TEST ORDERABLE S Performing Organization Address City/State/[place] [address] POCT Glucose (04/26/2021 3:55 AM EST) athologist Signature POC Glucose 143 65 - 199 [place] mg/dL [facility] LABORATORY Comment: Supplemental ranges: <140 mg/dL before meals <180 mg/dL all other times of the day Specimen Anatomical Collection Method Collection Time Receive d Time (Source) Location / / Volume Laterality Blood 04/26/2021 3:55 AM 2 3:55 EST AM EST Katalina Franco MD POINT OF CARE TEST ORDERABLE S Performing Organization Address City/[facility]/[place] [address] (ABNORMAL) Phosphorus (04/26/2021 1:58 AM EST) athologist Signature Phosphorus 2.4 (L) 2.5 - 4.5 [facility] mg/dL [facility] LABORATORY Specimen Anatomical Collection Method Collection Time Receive d Time (Source) Location / / Volume Laterality Blood Venous Draw / 04/26/2021 1:58 AM 04/26/19 22 2:24 Unknown EST AM EST Resulting Agency Comment Spec In Lab Jeremias Box MD CHEMISTRY ORDERABLES Performing Organization Address City/State/[place] [address] Magnesium (04/26/2021 1:58 AM EST) athologist Signature Magnesium 0.92 0.69 - 1.07 [facility] mmol/L [facility] LABORATORY Specimen Anatomical Collection Method Collection Time Receive d Time (Source) Location / / Volume Laterality Blood Venous Draw / 04/26/2021 1:58 AM 04/26/19 22 2:24 Unknown EST AM EST Resulting Agency Comment Spec In Lab Jeremias Box MD CHEMISTRY ORDERABLES Performing Organization Address City/State/ZIP Code Phon e Number [place] [id number] (ABNORMAL) Differential, Automated (04/26/2021 1:58 AM EST) [facility] Method Time Signature Neutrophils % 76.4 % [facility] LABORATORY Neutr Abs (ANC) 9.33 (H) 1.70 - [facility] 6.10 [facility] x10(3)/[facility] LABORATORY Lymphocytes % 11.8 % [facility] LABORATORY Lymphocytes Abs 1.4 0.9 - 3.2 [facility] x10(3)/[facility] LABORATORY Monocytes % 9.2 % [facility] LABORATORY Monocyte Abs 1.1 (H) 0.3 - 0.9 [facility] x10(3)/[facility] LABORATORY Eosinophils % 1.6 % [facility] LABORATORY Eosinophils Abs 0.2 0.0 - 0.4 [facility] x10(3)/[facility] LABORATORY Basophils % 0.3 % [facility] LABORATORY Basophils Abs 0.0 0.0 - 0.1 [facility] x10(3)/[facility] LABORATORY Immature Gran % 0.70 % [facility] LABORATORY Comment: Immature granulocytes(IG's)percentage an d absolute count will include metamyelocytes, myelocytes, and promyelo cytes. Blood smears from CBCs yielding IG's will be scanned manually for concor dance. If this scan disagrees with the automated IG or if promyelocytes are not ed, a manual differential will be performed. [place]ant[place] Gran Abs 0.08 (H) 0.00 - 0.04 x10(3)/[facility] LABORATORY Specimen Anatomical Collection Method Collection Time Receive d Time (Source) Location / / Volume Laterality Blood 04/26/2021 1:58 AM 2 2:21 EST AM EST Resulting Agency Comment Spec In Lab Sage Blunt MD HEMATOLOGY ORDERABLES Performing Organization Address City/State/ZIP [place] [address] (ABNORMAL) Hemogram (04/26/2021 1:58 AM EST) Analysis Performed At Patho logist Time Signature WBC 12.2 (H) 4.0 - 9.5 [place] x10(3)/[facility] LABORATORY RBC 4.31 4.00 - [place] 5.21 [facility] x10(6)/[facility] LABORATORY Hemoglobin 13.4 11.7 - [facility] 15.5 g/dL [facility] LABORATORY Hematocrit 41.3 35.7 - [facility] 45.8 % [facility] LABORATORY MCV 95.8 (H) 82.6 - [facility] 94.4 [facility] LABORATORY MCH 31.1 27.1 - [place] 32.0 pg [facility] LABORATORY MCHC 32.4 31.7 - [place] 35.0 g/dL [facility] LABORATORY Platelets 195 145 - 357 [facility] x10(3)/[facility] LABORATORY RDWSD 46.7 (H) 37.0 - [place] 46.0 [facility] LABORATORY RDWCV 13.2 11.5 - [facility] 14.1 % [facility] LABORATORY MPV 9.5 7.6 - 12.9 [facility] LABORATORY nRBC % Auto 0.0 % [facility] LABORATORY nRBC Abs Auto 0.000 0.000 - [facility] 0.000 [facility] x10(3)/[facility] LABORATORY Specimen Anatomical Collection Method Collection Time Receive d Time (Source) Location / / Volume Laterality Blood 04/26/2021 1:58 AM 2 2:21 EST AM EST Resulting Agency Comment Spec In Lab Sage Blunt MD HEMATOLOGY ORDERABLES Performing Organization Address City/State/ZIP [place] [address] (ABNORMAL) Basic Metabolic Panel (non-fasting) (04/26/2021 1:58 AM EST) P athologist Signature Glucose Lvl 151 65 - 199 [facility] mg/dL [facility] LABORATORY Comment: Diabetes: >=200 mg/dL plus symp toms BUN 21 (H) 8 - 18 mg/dL [facility] LABORATORY Creatinine 0.64 (L) 0.70 - 1.20 mg/dL [facility] LABORATORY Sodium 140 135 - 145 mmol/L [facility] LABORATORY Potassium 3.8 3.5 - 5.0 mmol/L [facility] LABORATORY Comment: Please note: ??Patients with WBC >100,00 0 may have falsely elevated Potassium levels. ??For accurate Potassium quantif ication in these patients send serum separator tube (gold top) for subsequent determinations. ??Contact the Clinical Chemistry Laboratory if there are any qu estions. Chloride 102 98 - 107 mmol/L [facility] LABORATORY CO2 30 22 - 31 mmol/L [facility] LABORATORY Anion Gap 8 5 - 15 mmol/L [facility] LABORATORY Calcium 8.3 (L) 8.5 - 10.5 mg/dL [facility] LABORATORY Estimated GFR 98 >=60 mL/min/1.73 m?? [facility] LABORATORY [...] Organization Address City/State/ZIP [place] [address] POCT Glucose (04/25/2021 11:42 PM EST) athologist Signature POC Glucose 138 65 - 199 [place] mg/dL [facility] LABORATORY Comment: Supplemental ranges: <140 mg/dL before meals <180 mg/dL all other times of the day Specimen Anatomical Collection Method Collection Time Receive d Time (Source) Location / / Volume Laterality Blood 04/25/2021 11:42 04/25/2021 PM EST 11:42 PM EST Katalina Franco MD POINT OF CARE TEST ORDERABLE S Performing Organization Address City/State/[place] [address] POCT Glucose (04/25/2021 8:21 PM EST) athologist Signature POC Glucose 130 65 - 199 [place] mg/dL [facility] LABORATORY Comment: Supplemental ranges: <140 mg/dL before meals <180 mg/dL all other times of the day Specimen Anatomical Collection Method Collection Time Receive d Time (Source) Location / / Volume Laterality Blood 04/25/2021 8:21 PM 2 8:21 EST PM EST Katalina Franco MD POINT OF CARE TEST ORDERABLE S Performing Organization Address City/State/[place] [address] POCT Glucose (04/25/2021 3:39 PM EST) athologist Signature POC Glucose 158 65 - 199 [place] mg/dL [facility] LABORATORY Comment: Supplemental ranges: <140 mg/dL before meals <180 mg/dL all other times of the day Specimen Anatomical Collection Method Collection Time Receive d Time (Source) Location / / Volume Laterality Blood 04/25/2021 3:39 PM 2 3:39 EST PM EST Katalina Franco MD POINT OF CARE TEST ORDERABLE S Performing Organization Address City/State/[place] [address] Scan, Peripheral Blood (04/25/2021 6:00 AM EST) athologist Signature Plat Estimate Normal [facility] LABORATORY RBC Morphology Normal [facility] LABORATORY Specimen Anatomical Collection Method Collection Time Receive d Time (Source) Location / / Volume Laterality Blood 04/25/2021 6:00 AM 6:06 EST AM EST Resulting Agency Comment Spec In Lab Bentley Dale MD HEMATOLOGY ORDERABLES Performing Organization Address City/State/ZIP Code Phon e Number [place] [id number]OS[address] LAB[address]ORY Drive (ABNORMAL) Differential, Automated (04/25/2021 6:00 AM EST) [facility] gist Method Time Signature Neutrophils % 88.4 % [facility] LABORATORY Neutr Abs (ANC) 20.57 (H) 1.70 - [facility] 6.10 [facility] x10(3)/[facility] LABORATORY Lymphocytes % 7.4 % [facility] LABORATORY Lymphocytes Abs 1.7 0.9 - 3.2 [facility] x10(3)/[facility] LABORATORY Monocytes % 3.0 % [facility] LABORATORY Monocyte Abs 0.7 0.3 - 0.9 [facility] x10(3)/[facility] LABORATORY Eosinophils % 0.3 % [facility] LABORATORY Eosinophils Abs 0.1 0.0 - 0.4 [facility] x10(3)/[facility] LABORATORY Basophils % 0.3 % [facility] LABORATORY Basophils Abs 0.1 0.0 - 0.1 [facility] x10(3)/[facility] LABORATORY Immature Gran % 0.60 % [facility] LABORATORY Comment: Immature granulocytes(IG's)percentage an d absolute count will include metamyelocytes, myelocytes, and promyelo cytes. Blood smears from CBCs yielding IG's will be scanned manually for concor dance. If this scan disagrees with the automated IG or if promyelocytes are not ed, a manual differential will be performed. [place] Gran Abs 0.15 (H) 0.00 - 0.04 x10(3)/[facility] LABORATORY Specimen Anatomical Collection Method Collection Time Receive d Time (Source) Location / / Volume Laterality Blood 04/25/2021 6:00 AM 2 6:06 EST AM EST Resulting Agency Comment Spec In Lab Bentley Dale MD HEMATOLOGY ORDERABLES Performing Organization Address City/State/ZIP Code Phon e Number [address] (ABNORMAL) Hemogram (04/25/2021 6:00 AM EST) Analysis Performed At Patho logist Time Signature WBC 23.3 (H) 4.0 - 9.5 [place] x10(3)/[facility] LABORATORY RBC 5.17 4.00 - [place] 5.21 [facility] x10(6)/[facility] LABORATORY Hemoglobin 15.8 (H) 11.7 - [facility] 15.5 g/dL [facility] LABORATORY Hematocrit 48.6 (H) 35.7 - [facility] 45.8 % [facility] LABORATORY MCV 94.0 82.6 - [facility] 94.4 [facility] LABORATORY MCH 30.6 27.1 - [place] 32.0 pg [facility] LABORATORY MCHC 32.5 31.7 - [place] 35.0 g/dL [facility] LABORATORY Platelets 275 145 - 357 [facility] x10(3)/[facility] LABORATORY RDWSD 45.0 37.0 - [facility] 46.0 [facility] LABORATORY RDWCV 12.9 11.5 - [place] [place] 14.1 % [facility] LABORATORY MPV 9.4 7.6 - 12.9 [facility] nRBC % Auto 0.0 % [facility] LABORATORY nRBC Abs Auto 0.000 0.000 - [place] [place] 0.000 [facility] x10(3)/[facility] LABORATORY Specimen Anatomical Collection Method Collection Time Receive d Time (Source) Location / / Volume Laterality Blood 04/25/2021 6:00 AM 2 6:06 EST AM EST Resulting Agency Comment Spec In Lab Bentley Dale MD HEMATOLOGY ORDERABLES Performing Organization Address City/State/[place] [address] Phosphorus (04/25/2021 6:00 AM EST) athologist Signature Phosphorus 3.4 2.5 - 4.5 [facility] mg/dL [facility] LABORATORY Specimen Anatomical Collection Method Collection Time Receive d Time (Source) Location / / Volume Laterality Blood 04/25/2021 6:00 AM 2 6:06 EST AM EST Resulting Agency Comment Spec In Lab Katalina Franco MD CHEMISTRY ORDERABLES Performing Organization Address City/[facility]/ZIP Code Phon e Number [address] Magnesium (04/25/2021 6:00 AM EST) athologist Signature Magnesium 1.07 0.69 - 1.07 [facility] mmol/L [facility] LABORATORY Specimen Anatomical Collection Method Collection Time Receive d Time (Source) Location / / Volume Laterality Blood 04/25/2021 6:00 AM 2 6:06 EST AM EST Resulting Agency Comment Spec In Lab Katalina Franco MD CHEMISTRY ORDERABLES Performing Organization Address City/[facility] [place] [address] (ABNORMAL) Basic Metabolic Panel (non-fasting) (04/25/2021 6:00 AM EST) athologist Signature Glucose Lvl 171 65 - 199 [facility] mg/dL [facility] [facility] Comment: Diabetes: >=200 mg/dL plus symp toms BUN 25 (H) 8 - 18 mg/dL [facility] Creatinine 0.73 0.70 - 1.20 mg/dL [facility] Sodium 136 135 - 145 mmol/L [facility] Potassium 4.6 3.5 - 5.0 mmol/L [facility] Comment: Please note: ??Patients with WBC >100,00 0 may have falsely elevated Potassium levels. ??For accurate Potassium quantif ication in these patients send serum separator tube (gold top) for subsequent determinations. ??Contact the Clinical Chemistry Laboratory if there are any qu estions. Chloride 102 98 - 107 mmol/L [facility] CO2 23 22 - 31 mmol/L [facility] Anion Gap 11 5 - 15 mmol/L [facility] Calcium 8.7 8.5 - 10.5 mg/dL [facility] Comment: result rechecked-bm Estimated GFR 91 >=60 mL/min/1.73 m?? [facility] [...] Organization Address City/State/[place] [address] XR Abdomen 1 view [...] who have questions please contact the health medicare nurse that requested your imaging first. ? Electronically signed by: Kenny cooper MD, [facility] ([phone]), at 04/25/2021 2:31 AM Narrative 04/25/2021 2:31 AM EST EXAMINATION: XR [...] ho have questions please contact the health medicare nurse that requested your imaging first. Electronically signed by: Kenny cooper MD, [facility] ([phone]), at 04/25/2021 2:31 AM Katalina Franco MD IMG DX ORDERABLES CT [...] who have questions please contact the health medicare nurse that requested your imaging first. ? Electronically signed by: Werner Fletcher MD, [facility] ([phone]), at 04/24/2021 11:20 PM Narrative 04/24/2021 11:20 PM EST EXAMINATION: CT [...] ho have questions please contact the health medicare nurse that requested your imaging first. Viviana Camacho MD IMG CT ORDERABLES COVID-19 PCR (04/24/2021 6:32 PM EST) [facility] Method Time Signature SARS-CoV-2 Not Detected Not Detected NELLA RNA PCR [facility] Comment: This result should be interpreted [...] using the Simplexa COVID-19 Direct Assay by Thrillnoemi zhang as authorized by the FDA issued [...] Department of Pathology and Laboratory Medicine at [facility], certified under the [...] fact sheets at the following FDA website: https://www.fda.gov/medical-devices/tjlykdvnvjh-pejvarn-5802-ozlkx-13-pnwkotstq- ogu-qltcnhgqciaoyv-lvqrlse-devices/ddlbe-zzlxtklyayz-zvxz SARS-CoV-2 Source CUST[employer] COLLECTOR Swab [facility] Specimen (Source) Anatomical Collection Method Collection Time Re ceived Time Location / / Volume Laterality Nasopharyngeal Swab 04/24/2021 6:32 04/24 PM EST 7:24 PM EST Comment: Symptoms->Surveillance Resulting Agency Comment Spec In Lab James Nichole MD MICROBIOLOGY - GENERAL ORDER ARLEY Performing Organization Address City/[facility]/ZIP Code Phon e Number [address] (ABNORMAL) L-Lactate2 Whole Blood (04/24/2021 6:13 PM EST) P athologist Signature Lactate WB 2.3 (H) 0.5 - 2.2 [facility] mmol/L [facility] Specimen Anatomical Collection Method Collection Time Receive d Time (Source) Location / / Volume Laterality Blood 04/24/2021 6:13 PM 6:13 EST PM EST James Nichole MD CHEMISTRY ORDERABLES Performing Organization Address City/[facility]/[place] [address] (ABNORMAL) Differential, Automated (04/24/2021 5:50 PM EST) Patholo gist Method Time Signature Neutrophils % 78.1 % [facility] Neutr Abs (ANC) 16.29 (H) 1.70 - [facility] 6.10 [facility] x10(3)/[facility] LABORATORY Lymphocytes % 14.3 % [facility] Lymphocytes Abs 3.0 0.9 - 3.2 [facility] x10(3)/[facility] LABORATORY Monocytes % 5.6 % [facility] Monocyte Abs 1.2 (H) 0.3 - 0.9 [facility] x10(3)/[facility] LABORATORY Eosinophils % 0.8 % [facility] Eosinophils Abs 0.2 0.0 - 0.4 [facility] x10(3)/[facility] LABORATORY Basophils % 0.5 % [facility] Basophils Abs 0.1 0.0 - 0.1 [facility] x10(3)/[facility] LABORATORY Immature Gran % 0.70 % [facility] Comment: Immature granulocytes(IG's)percentage an d absolute count will include metamyelocytes, myelocytes, and promyelo cytes. Blood smears from CBCs yielding IG's will be scanned manually for concor dance. If this scan disagrees with the automated IG or if promyelocytes are not ed, a manual differential will be performed. Shantell Gran Abs 0.15 (H) 0.00 - 0.04 x10(3)/[facility] LABORATORY Specimen Anatomical Collection Method Collection Time Receive d Time (Source) Location / / Volume Laterality Blood 04/24/2021 5:50 PM 6:44 EST PM EST Resulting Agency Comment Spec In Lab Noel ROMAN HEMATOLOGY ORDERABLES Performing Organization Address City/State/ZIP [place] [address] (ABNORMAL) Hemogram (04/24/2021 5:50 PM EST) Analysis Performed At Patho logist Time Signature WBC 20.8 (H) 4.0 - 9.5 [facility] x10(3)/[facility] LABORATORY RBC 5.59 (H) 4.00 - [facility] 5.21 [facility] x10(6)/[facility] LABORATORY Hemoglobin 17.3 (H) 11.7 - [facility] 15.5 g/dL [facility] Hematocrit 51.4 (H) 35.7 - [facility] 45.8 % [facility] MCV 91.9 82.6 - [facility] 94.4 [facility] LABORATORY MCH 30.9 27.1 - [facility] 32.0 pg [facility] MCHC 33.7 31.7 - [facility] 35.0 g/dL [facility] Platelets 316 145 - 357 [facility] x10(3)/[facility] LABORATORY RDWSD 44.4 37.0 - [facility] 46.0 [facility] LABORATORY RDWCV 13.1 11.5 - [facility] 14.1 % [facility] MPV 9.7 7.6 - 12.9 [facility] LABORATORY nRBC % Auto 0.0 % [facility] nRBC Abs Auto 0.000 0.000 - [facility] 0.000 [facility] x10(3)/[facility] LABORATORY Specimen Anatomical Collection Method Collection Time Receive d Time (Source) Location / / Volume Laterality Blood 04/24/2021 5:50 PM 2 6:44 EST PM EST Resulting Agency Comment Spec In Lab Noel ROMAN HEMATOLOGY ORDERABLES Performing Organization Address City/[facility]/ZIP Code Phon e Number [address] Lipase (04/24/2021 5:50 PM EST) P athologist Signature Lipase 17 0 - 60 [facility] unit/L [facility] Specimen Anatomical Collection Method Collection Time Receive d Time (Source) Location / / Volume Laterality Blood 04/24/2021 5:50 PM 2 6:44 EST PM EST Resulting Agency Comment Spec In Lab Carl Coronado MD CHEMISTRY ORDERABLES Performing Organization Address City/[facility]/ZIP Code Phon e Number [address] (ABNORMAL) Comprehensive metabolic panel (non-fasting) (04/24/2021 5:50 PM EST) P athologist Signature Glucose Lvl 156 65 - 199 [facility] mg/dL [facility] Comment: Diabetes: >=200 mg/dL plus symp toms BUN 32 (H) 8 - 18 mg/dL [facility] Creatinine 0.75 0.70 - 1.20 mg/dL [facility] Sodium 136 135 - 145 mmol/L [facility] Chloride 97 (L) 98 - 107 mmol/L [facility] CO2 24 22 - 31 mmol/L [facility] Anion Gap 15 5 - 15 mmol/L [facility] Calcium 10.1 8.5 - 10.5 mg/dL [facility] Total Protein 7.7 6.1 - 8.0 g/dL [facility] Albumin 4.3 3.2 - 5.2 g/dL [facility] AST 14 0 - 30 unit/L [facility] ALT 18 0 - 30 unit/L [facility] Alk Phos 118 (H) 35 - 105 unit/L [facility] Total Bilirubin 0.4 0.2 - 1.3 mg/dL [facility] Estimated GFR 88 >=60 mL/min/1.73 m?? [facility] [...] Organization Address City/State/Z[place] [address] documented in this encounter Visit Diagnoses Not on filedocumented in this encounter Admitting Diagnoses Diagnosis Incarcerated ventral hernia Ventral hernia, unspecified, with obstru ction documented in this encounter Administered Medications Inactive Administered Medications - up to 3 most recent administrations Medication Order MAR Action Action Date Dose Rate Site acetaminophen (Tylenol) tablet Given 04/28/2021 12:31 PM EST 1,0 00 mg 1,000 mg 1,000 mg, Oral, EVERY 6 HOURS SCHEDULED, First dose on 04/26/21 at 1100, Until Discontinued, Maximum dose of [...] EVERY 8 HOURS SCHEDULED, First dose on [facility] 04/25/21 at 2200, Until Discontinued, Routine Given 04/27/2021 9:18 PM EST 5,000 Units Given 04/26/2021 5:22 AM EST 5,000 Units hydroCHLOROthiazide (Hydrodiuril) tablet 25 mg Given 04/28/2021 9:31 AM EST 25 mg 25 mg, Oral, DAILY, First dose on [facility] 04/28/21 at 0915, Until Discontinued, Routine HYDROmorphone (Dilaudid) (0.5 mg/0.5 mL) injection syringe 0.2 mg 0.2 mg, Intravenous, EVERY 4 HOURS PRN, Starting on [facility] 04/25/21 at 1745, Until [facility] 04/28/21 at 1627, Pain, mild pain (1-3), May give an additional 0.2 mg in 30 minutes once if pain not relieved., Routine HYDROmorphone (Dilaudid) (0.5 mg/0.5 mL) injection syringe 0.4 mg 0.4 mg, Intravenous, EVERY 4 HOURS PRN, Starting on [facility] 04/25/21 at 1745, Until [facility] 04/28/21 at 1627, Pain, moderate pain (4-6), May give a n additional 0.2 mg in 30 minutes once if pain not relieved., Routine HYDROmorphone (Dilaudid) (2 mg/mL) injec tion solution 0.6 mg 0.6 mg, Intravenous, EVERY 4 HOURS PRN, Starting on [facility] 04/25/21 at 1745, Until [facility] 04/28/21 at 1627, Pain, severe pain (7-10), May give an additional 0.2 mg in 30 minutes once if pain not relieved., Routine insulin lispro (HumaLOG;Admelog) (100 unit/mL) subcuta [...] > 240 mg/dL in 2 hours., Routine ipratropium-albuteroL (Duoneb) 0.5 mg-3 mg(2.5 mg base)/3 mL nebulizer solution 3 mL 3 mL, Nebulization, DAILY PRN, Starting on Thu04/25/21 at 0527, Until 04/28/21 at 1627, Wheezing, Routine ondansetron (pf) (Zofran) (2 mg/mL) injection Given 11:57 AM EST 4 mg 4-8 mg 4-8 mg, Intravenous, EVERY 8 HOURS PRN, Starting on Thu04/25/21 at 1745, Until 04/28/21 at 1627, Nausea, [...] PRN, Starting on 04/26 at 1249, Until Thu04/28/21 at 1627, Irritation, For throat soreness, Rout ine senna-docusate (Pericolace) 8.6-50 mg per Given 2021 9:17 PM EST 2 tablets tablet 2 tablet 2 tablet, Oral, 2 TIMES DAILY, First dose on [facility] 04/27/21 at 2100, Until Discontinued, Routine sodium [...] HOURS SCHEDULED, 4 doses, First dose on Thu04/25/21 at 1100, Last dose on Thu04/26/21 at [...] EVERY 8 HOURS SCHEDULED, First dose on Thu04/25/21 at 2200, Until Discontinued, Routine using all meds, paged) hydroCHLOROthiazide (Hydrodiuril) tablet 25 mg 0931 (Given - Provider: Lena Walton RN) 25 [...] 4 HOURS S CHEDULED, First dose on Thu04/25/21 at 1600, Until Discontinued, CORRECTION BOLUS [1-4 [...] BG in 2 hours. - If re 1999 (Not Given - Provider: Farheen Doll RN [...] (Pericolace) 8.6-50 mg per tablet 2 tablet 2116 (Given - Provider: Farheen Doll RN) 0900 [...] all medications) 0846 (Given - Provider: Gretchen Marshall RN)2117 (Given - Provider: Farheen Doll RN) 0900 (Given - Provider: Lena Walton RN) 5 mL, Intravenous, 2 TIMES DAILY, First dose on [facility] 04/25/21 at 2100, Until Discontinued, Recovery (Recovery-Hospital Unit), Routine Continuous Medication Order 04/26/2021 04/27/2021 04/28/2021 lactated ringers infusion (CANCELED) 0600 (Rate/Dose V erify - Provider: Abbey Mcgarry RN)1851 (New Bag - Provider: Rachel Mendoza, GENA) 0400 (Rate/Dose Verify - Provider: Farheen Doll RN)0407 (New Bag - Provider: Farheen Doll, GENA)1908 (Stopped - Provider: Farheen Doll, GENA) 110 mL/hr, Intravenous, CONTINUOUS, Star ting on [...] tarting on [facility] 04/25/21 at 1519, Until [facility] 04/28/21 at 1627, Low blood sugar, For [...] (Dilaudid) (2 mg/mL) injection solution 0.6 mg(Ghanshyam chahal Group 3) 0.6 mg, Intravenous, EVERY 4 HOURS PRN, Starting on [facility] 04/25/21 at 1745, Until 04/28/21 at 1627, Pain, severe pain (7-10), May give an additional 0.2 mg in 30 minutes once if pain not relieved., Routine ibuprofen (Advil) tablet 600 mg 600 mg, Oral, EVERY 6 HOURS PRN, Startin g on [facility] 04/28/21 at 0600, Until [facility] 04/28/21 at 1627, Pain, Administer orally with milk or food to minimize GI irritation. Maximum dose of 3,200 mg from all sources in 24 hours, Routine ipratropium-albuteroL (Duoneb) 0.5 mg-3 mg(2.5 mg base)/3 mL nebulizer solution 3 mL 3 mL, Nebulization, DAILY PRN, Starting on [facility] 04/25/21 at 0527, Until [facility] 04/28/21 at 1627, Wheezing, Routine lidocaine (Xylocaine) 1% (10 mg/mL) injection 3 mg 3 mg (0.3 mL), Subcutaneous, ONCE PRN, 1 dose, Starting on [facility] 04/25/21 at 1745, Until [facility] 04/28/21 at 1627, for discomfort with PIV insertion, Recovery (Recovery-Hospital Unit), Routine naloxone (Narcan) (0.4 mg/mL) injection 0.2 mg 0.2 mg, Intravenous, EVERY 1 MIN PRN, St arting on [facility] 04/25/21 at 1745, Until [facility] 04/28/21 at 1627, Opioid Reversal, If respiratory [...] 4) 1013 (Given - Provider: Rachel Mendoza, RN)1157 (Given - Provider: Rachel Mendoza, GENA) 4-8 [...] GENA)1157 (See Alternative - Provider: Rachel Mendoza, GENA) 4-8 mg, Oral, EVERY 8 HOURS PRN, [...] PRN, Starting on [facility] at 1745, Until 04/28/21 at 1627, Constipation, Routine sodium chloride 0.9 % (flush) (BD PosiFlush Normal Saline 0.9) f lush 5-20 mL 5-20 mL, Intravenous, EVERY 1 MIN PRN, S tarting on [facility] 04/25/21 at 1745, Until 04/28/21 at 1627, flush, Flush pertains to all indwelling lines. Flush per protocol found in the job aid using the link p rovided on this medication record., Recovery (Recovery-Hospi blu Unit), Routine Linked Groups Order Group 1: POCT Fingerstick Glucose (CANCELED) Routine, EVERY 4 HOURS, First occurrence on [facility] 04/25/21 at 1525, Until Specified
Consider choosing [...] EVERY 30 MIN PRN, Start ing on [facility] 04/25/21 at 1519, Until 04/28/21 at 1627, [...] first.
documented in this encounter Care Teams Slag Expander Relationship Specialty Start Date End Date Ally Ortiz APRN PCP - General Internal Medicine 04/24/[address] [place] [address] documented as of this encounter
--- OUTSIDE RECORDS SUMMARY | 2021-09-27 14:54 | XMS_ITS | Encounter Summary ---
:1960 Author Organization [facility] [place] [address] Care Team Providers Name Role Phone Hanane Martinez MD Primary Care Provider Encounter Details Date Type Department Care Team Description 12/06/2019 [place] [facility] [place] Lozano Ureteral stricture, [facility] [place] [address] UROLOGY DEPT [phone] [place], [place] [address] Social History Tobacco Use Types Packs/Day Years [...] Sign Reading Time Taken Comments Blood Pressure 146/77 12/06/2019 2:07 PM EDT Pulse 95 12/06/2019 2:07 PM EDT Temperature 36.2 ??C (97.2 ??F) 12/06/2019 2:07 PM EDT Respiratory Rate - - Oxygen Saturation 98% 12/06/2019 2:07 PM EDT Inhaled Oxygen Concentration - - Weight 86.2 kg (190 lb) 12/06/2019 2:07 PM EDT Height 5 cm (1.97) 12/06/2019 2:07 PM EDT Body Mass Index 12699.01 12/06/2019 2:07 PM EDT documented in this encounter Progress Notes David Lozano MD - 12/06/2019 2:20 PM EDT I had the pleasure of seeing Mrs. Jahaira Montgomery back in clinic today to discuss her history of RIGHT ureteral stricture. She underwent ureteral stent placement by Dr. Fournier per request of Dr. Miryam Wiley who did an enterostomy closure in September 2019. From Dr. Fournier's OR note: Normal cystosocpy Left side 5F open ended ureteral catheter placed without difficulty Right side ureteral kink seen on retrograde, likely related some degree of ureteral fixation in the retroperitoneum. Given that, a 5 Fr Pollack could not be manipulated through the area of stricture, there was some minor trauma and periureteral contrast extravasation a decision was made to place a 4.8F double J ureteral stent placed on right side. She underwent cysto and RIGHT ureteral stent removal with al on 10/18/19. She now returns for f/u withrenal ultrasound. Today, she states she has been fine. No flank pain. No dysuria. 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 This was done in [place], [place], on Nov 27. REVIEW OF SYSTEMS: 10 out of 14-point systems was reviewed and is as per the history. In addition, the patient notes REVIEW OF SYSTEMS 12/06/2019 Constitutional None of the above Ear / nose / throat / mouth None of the above Eyes None of the above Respiratory None of the above Cardiovascular None of the above Gastrointestinal None of the above Skin, hair None of the above Musculoskeletal None of the above Neurological None of the above Hematologic / Lymphatic None of the above Genitourinary None of the above PHYSICAL EXAM: BP 146/77 Pulse 95 Temp 36.2 ??C (97.2 ??F) Ht (!) 5 cm (1.97) Wt 86.2 kg (190 lb) SpO2 98% BMI 62008.01 kg/m?? General: Patient is a well-appearing female in no acute distress. Head: normocephalic, atraumatic. ENT: moist mucous membranes, supple neck, midline trachea Lungs: respirations unlabored, no audible wheezing. Abdomen: soft, nontender, nondistended, no palpable masses. Back: No flank tenderness bilaterally. Neuro: awake, alert, oriented to conversation, normal gait, neurologically grossly intact LABS: Creatinine: Lab Results Component Value Date CREATININE 0.84 09/15/2019 IMAGING: I personally reviewed and reviewed with the patient her most recent renal ultrasound from today which shows no hydronephrosis bilaterally. ASSESSMENT AND PLAN: Ms. Jahaira Montgomery is a 59 y.o. female with a history of incidentally noted rightureteral kink/stricture during ureteral stent placement for colorectal procedure. There is no evidence of hydro today. We discussed follow-up prn vs. A return visit in a year with a final renal ultrasound. She prefers the latter and we will schedule. DAVID LOZANO MD 12 out of 14 minutes of this encounter was spent in counseling and coordinating care. documented in this encounter Plan of Treatment Upcoming Encounters Date Type Specialty Care Team Description 09/30/2021 Office Visit General Surgery Paloma Mota, S[employer]ER [facility] GENERAL SURGERY [place], [place] [address] (Wo rk) 09/30/2021 Office Visit Infectious Diseases Werner Harrell MD [facility] INFECTIOUS [place], [place] [address] (Wo rk) documented as of this encounter Visit Diagnoses Diagnosis Ureteral stricture, right Stricture or kinking of ureter documented in this encounter Care Teams Leather Tooler Relationship Specialty Start Date End Date Hanane Martinez MD PCP - General Internal Medicine 08/09/19 04/23/[address] [place] [phone] documented as of this encounter
--- OUTSIDE RECORDS SUMMARY | 2021-09-27 14:54 | XMS_ITS | Encounter Summary ---
:1960 Author Organization [facility] [place] [address] Care Team Providers Name Role Phone Hanane Martinez MD Primary Care Provider Reason for Visit Reason Comments Hospital Transfer Abdominal Pain Auth/Cert Specialty Diagnoses / Procedures Referred By Contact Refer red To Contact Diagnoses Incarcerated hernia sbo Procedures ER IPI Referral ID Status Reason Start Date Expiration Date Visits Requ ested Visits Authorized [id number] 1 1 Encounter Details Date Type Department Care Team Description 04/25/2020 Surgery Main Operating Room Gurdeep Swann MD @[facility] DR WITH/WITHOUT BIOPSY(S) [facility] GENERAL SURGE RY (WRVU 12.54) [place] [address] [place] [address] [phone] Social History Tobacco Use Types Packs/Day Years [...] Sign Reading Time Taken Comments Blood Pressure 127/65 04/25/2020 7:30 AM EST Pulse 69 04/25/2020 7:30 AM EST Temperature 36.5 ??C (97.7 ??F) 04/25/2020 7:04 AM EST Respiratory Rate 10 04/25/2020 7:30 AM EST Oxygen Saturation 96% 04/25/2020 7:30 AM EST Inhaled Oxygen Concentration - - Weight 83.9 kg (185 lb) 04/24/2020 10:10 PM EST Height - - Body Mass Index 36.32 04/26/2020 3:39 PM [...] and subsequently underwent reversalon 09/14/19 here at [facility]. She reports that she overall had been [...] Discharge: none Pertinent Lab Data: Recent Labs 04/26/20 0416 04/25/20 0954 04/24/20 2234 WBC 15.5* 16.6* 13.8* HGB 12.9 14.4 14.9 HCT 39.4 44.1 45.1 PLATELET 243 244 274 Recent Labs 04/26/20 0416 04/25/20 0954 04/24/20 2234 NA 142 138 137 K 3.4* 4.2 3.9 CL 104 104 105 CO2 31 24 22 BUN 13 17 19* CREATININE 0.49* 0.62* 0.60* GLUCOSE 102 152 120 CALCIUM 8.8 8.6 8.5 MAGNESIUM 0.88 -- 0.82 PHOS 2.9 -- 2.9 Microbiology Data: Microbiology Results (last 7 days) Procedure Component Value - Date/Time COVID-19 PCR [[id number]] Collected: 04/25/20 0651 Lab Status: Final result [...] using the Simplexa COVID-19 Direct Assay by CodeCombat as authorized by the FDA issued Emergency [...] Department of Pathology and Laboratory Medicine at [facility], certified under the Clinical Laboratory Improvement [...] fact sheets at the following FDA website: https://www.fda.gov/medical-devices/apvnhmwflqa-ahduvfx-4576-rlepf-53-pqbtmbpya- gef-lrjcqdqbydqgkr-idbvicx-devices/xenrg-ijtdmhbyfxa-cbgs SARS-CoV-2 Source EXPRESSIVE MUSIC THERAPIST Swab Microbiology Results (last 6 months) Procedure Component Value - Date/Time COVID-19 PCR [[id number]] Collected: 04/25/20 0651 Lab Status: Final result [...] diagnosis of COVID-19 is performed using the TrustAlerta COVID-19 Direct Assay by CodeCombat as authorized by the FDA issued Emergency [...] Department of Pathology and Laboratory Medicine at [facility], certified under the Clinical Laboratory Improvement [...] fact sheets at the following FDA website: https://www.fda.gov/medical-devices/bymotmjocck-fdruvqn-7016-pnvee-03-lstgmeypz- xuh-opdjrysaeavmof-qzltypt-devices/gumun-cfxetgjwnxr-jbgj SARS-CoV-2 Source EXPRESSIVE MUSIC THERAPIST Swab Pertinent Imaging: Results for orders placed [...] AND/OR HOSPICE SERVICES) PATIENT'S LOCATION: Jahaira Montgomery [address] [place] [id number] Cell: Telephone Information: Warehouse Order Picker's Name: self/patient In discussion with the attending physician, it is certified that this patient is under their care and that they, or a Nurse Practitioner,Clinical Nurse specialist or Physician Certified Coding Specialist who is working directly with them, had [...] program if appropriate. HOME HEALTH CARE AGENCY: [facility] PHONE: [phone] FAX: [phone] Start of care: 24 to 48 hours post discharge Please note that any additional orders needs or changes will need to be obtained from this patient'sPCP: Hanane Martinez MD [address] [facility] [address] All [facility] agencies which cover the area of patient's residence have been reviewed, either verbally or in writing, and patient/family have chosen the home health care agency noted Question Response Notes Agency name and contact information [facility] Patient location post discharge home What services [...] You will have follow-up appointments at [facility] as indicated in the ???Future Appointments and [...] on the next business day. Please call [phone] if you do not hear from us by that time, as your timely follow-up is very important to us. Your care was managed by the Trauma and Acute Care Surgery Team at [facility]. If you have any questions or concerns, please feel free to contact us. Provider Contact Information: General Surgery: [facility] (after business hours): CC: Primary Care Physician: [...] Acute Care Surgery Team at [facility]. If you have any questions or concerns, please feel free to contact us. Provider Contact Information: General Surgery Clinic: Nurses line for questions: [facility] (after business hours): CC: Hanane Martinez MD [facility] Paloma Mota APRN Signed: Chary Brunner MD Department of Surgery 04/27/2020 Acute Care Surgery Pager [phone] documented in this encounter Discharge Instructions Discharge [...] You will have follow-up appointments at [facility] as indicated in the ???Future Appointments and [...] on the next business day. Please call [phone] if you do not hear from us by that time, as your timely follow-up is very important to us. Your care was managed by the Trauma and Acute Care Surgery Team at [facility]. If you have any questions or concerns, please feel free to contact us. Provider Contact Information: General Surgery: [facility] (after business hours): CC: Primary Care Physician: Hanane Martinez MD AttachmentsThe following attachments cannot be sent through Care Everywhere. Smoking: Stopping (Slovak)Smoking Cessation: Health Benefits: General Info (Slovak)documented in this encounter Medications at Time of [...] at this time escorted via w/c to [facility]. Rodrigue Kennedy RN Chary Brunner MD - 04/27/2020 6:50 AM EST ID/MECHANISM OF INJURY: Jahaira Montgomery is a 59 y.o. female S/p ex-lap for incarcerated ventral hernia reduction and primary repair OR CASE INFORMATION: 04/25/2020 Procedure(s): @EXPLORATORY LAPAROTOMY, WITH/WITHOUT BIOPSY(S) (WRVU 12.54) HERNIA REPAIR, VENTRAL OR INCISIONAL, RECURRENT, INCARCERATED (WRVU 15.53) FOLLOW-UP NEEDED: Does pt need to f-u with surgeon or EXPRESSIVE MUSIC THERAPIST (please indicate reason if attending provider): aPloma What follow-up with TACS team is needed [...] Progress Note Patient Name: Jahaira Montgomery : [id number] MR#: [id number] 04/24/2020 Hospital Day 1 day Problem List: [...] the property where Pt other brother and krnfnx-ai-ooz live. Pt tnycsa-jn-kzd and brother's partner are home at all [...] ?? Vision & Perception: ?? corrective lenses time lock expert ?? Vitals: WFL on RA Pain: Pt [...] met Total Minutes, Occupational Therapy: 14; 1 [place] Pager: [phone] Clarissa Spivey OT Occupational Therapy Rehabilitation Department Shawna Suh RN - 04/26/2020 2:15 PM EST This author reviewed a list of Home Health Agencies/DME vendors which serve their preferred geographic area. Affiliations were reviewed with them and they were educated about their right to choose where referrals are placed. Patient requests referral to [facility]. PHONE: [phone] FAX: [phone] Ortho Care Located @ [facility] [place], [place] Equipment needed: Front wheel walker Expected date of discharge: 04/27/2020 Shonda Cain, PT - 04/26/2020 1:40 PM EST Physical [...] performed by Miryam Wiley MD at [facility] MAIN OR ??? PRO COLONOSCOPY, DIAGNOSTIC N/A 08/18/2019 COLONOSCOPY, DIAGNOSTIC performed by Emigdio Lanier MD at [facility] ENDOSCOPY ??? PRO CYSTOSCOPY, INSERT URETERAL STENT Right 09/14/2019 CYSTO, STENT PLACEMENT INTRAOP, TEMPORARY (WRVU 2.82) performed by Werner Fournier MD at [facility] MAIN OR ??? PRO EXPLORATORY OF ABDOMEN N/A 04/25/2020 @EXPLORATORY LAPAROTOMY, WITH/WITHOUT BIOPSY(S) (WRVU 12.54) performed by Liberty Swann MD at [facility] MAIN OR ??? PRO MOBILIZE SPLENIC FLEX N/A 09/14/2019 @MOBILIZATION OF SPLENIC FLEXURE (WRVU 2.23) performed by Miryam Wiley MD at [facility] MAIN OR ??? PRO OMENTAL FLAP, INTRA-ABDOMINAL 09/14/2019 @OMENTAL FLAP, INTRA-ABDOMINAL (WRVU 6.54) performed by Miryam Wiley MD at [facility] OR ??? PRO REPAIR RECURR INCIS HERNIA, DEONTE N/A 04/25/2020 HERNIA REPAIR, VENTRAL OR INCISIONAL, RECURRENT, INCARCERATED (WRVU 15.53) performed by Liberty Swann MD at [facility] MAIN OR ??? PRO SIGMOIDOSCOPY, DIAGNOSTIC N/A 09/14/2019 SIGMOIDOSCOPY, FLEXIBLE W/WO SPECIMEN BY BRUSHING OR WASHING (WRVU 0.84) performed by Miryam Wiley MD at [facility] MAIN OR ??? TUBAL LIGATION Active Non-Hospital Problems Diagnosis ??? Ostomy nurse consultation Social History: Patient lives with brother and brother's partner in a house. There is an apartment attached to the property where Pt other brother and zvyfaz-yt-wfk live. Pt xilsxg-vc-tkr and brother's partner are home at all [...] person, place, and time Vision: corrective lenses time lock expert Skin: midline abdominal incision Musculoskeletal: ROM: WFL's [...] inpt PT needs. Pt can amb with [facility] staff and mobility tech. Will need a [...] Physical Therapy: 30 Shonda Cain, PT Pager: [phone] Physical Therapy Inpatient Rehabilitation Department Ebony Diana RN - 04/25/2020 5:37 PM EST OUTCOME [...] performed by Miryam Wiley MD at [facility] MAIN OR ??? PRO COLONOSCOPY, DIAGNOSTIC N/A 08/18/2019 COLONOSCOPY, DIAGNOSTIC performed by Emigdio Lanier MD at [facility] ENDOSCOPY ??? PRO CYSTOSCOPY, INSERT URETERAL STENT Right 09/14/2019 CYSTO, STENT PLACEMENT INTRAOP, TEMPORARY (WRVU 2.82) performed by Werner Fournier MD at [facility] MAIN OR ??? PRO MOBILIZE SPLENIC FLEX N/A 09/14/2019 @MOBILIZATION OF SPLENIC FLEXURE (WRVU 2.23) performed by Miryam Wiley MD at [facility] OR ??? PRO OMENTAL FLAP, INTRA-ABDOMINAL 09/14/2019 @OMENTAL FLAP, INTRA-ABDOMINAL (WRVU 6.54) performed by Miryam Wiley MD at [facility] OR ??? PRO SIGMOIDOSCOPY, DIAGNOSTIC N/A 09/14/2019 SIGMOIDOSCOPY, FLEXIBLE W/WO SPECIMEN BY BRUSHING OR WASHING (WRVU 0.84) performed by Miryam Wiley MD at [facility] OR ??? TUBAL LIGATION Social History: Patient lives with brother and brother's partner in a house. There is an apartment attached to the property where Pt other brother and fryjzn-ju-wbi live. Pt vhhsaf-ls-jpi and brother's partner are home at all [...] WFL Vision & Perception: ?? corrective lenses time lock expert Communication: WFL Range of motion, strength, coordination: [...] and measurable assessment of functional outcome. Pager: [phone] Clarissa Spivey OT 04/25/2020 Occupational Therapy Rehabilitation Department Chary Neely MD - 04/25/2020 12:15 PM EST Acute [...] Procedure Component Value - Date/Time COVID-19 PCR [[id number]] Collected: 04/25/20 0651 Lab Status: Final result [...] diagnosis of COVID-19 is performed using the TrustAlerta COVID-19 Direct Assay by CodeCombat as authorized by the FDA issued Emergency [...] Department of Pathology and Laboratory Medicine at [facility], certified under the Clinical Laboratory Improvement [...] fact sheets at the following FDA website: https://www.fda.gov/medical-devices/cbopnfrqiwm-ptrvmve-6342-pzipk-12-mntsyexjj- ygs-jgjpjztzyttwgp-fvepjpp-devices/qpspr-tbtfmkqltpe-zror SARS-CoV-2 Source EXPRESSIVE MUSIC THERAPIST Swab Microbiology Results (last 6 months) Procedure Component Value - Date/Time COVID-19 PCR [[id number]] Collected: 04/25/20 0651 Lab Status: Final result [...] using the Simplexa COVID-19 Direct Assay by CodeCombat as authorized by the FDA issued Emergency [...] Department of Pathology and Laboratory Medicine at [facility], certified under the Clinical Laboratory Improvement [...] fact sheets at the following FDA website: https://www.fda.gov/medical-devices/vncerjctnpr-fwdkcza-8331-vjnpe-92-ioxirjcsm- vlz-ltmndqiekxmrra-bnffqev-devices/kxvhb-kzycbotzolc-bjiv SARS-CoV-2 Source EXPRESSIVE MUSIC THERAPIST Swab New Imaging: Results for orders placed [...] Brunner MD 04/25/2020 Acute Care Surgery Pager [phone] Ebony Diana RN - 04/25/2020 9:50 AM EST Pt arrived to the floor around 0930. AAOx4. VSS. Pt oriented to unit, room, and staff. See DocFlow for assessment. Will continue to monitor. Report received from Rosario AVERY, PACU. Rosario Blancas RN - 04/25/2020 7:12 AM EST Pt [...] Swann MD - 04/24/2020 10:20 PM EST [facility] Department of Surgery History and Physical Chief Complaint: abdominal pain HPI: Jahaira Montgomery is a 59 y.o. female with a history multiple abdominal surgeries most recently being Lucy's procedure on 03/19/19 at [facility] for complicated diverticulitis and subsequently underwent reversal on 09/14/19 here at [facility]. She reports that she overall had been [...] performed by Miryam Wiley MD at [facility] MAIN OR ??? PRO COLONOSCOPY, DIAGNOSTIC N/A 08/18/2019 COLONOSCOPY, DIAGNOSTIC performed by Emigdio Lanier MD at [facility] ENDOSCOPY ??? PRO CYSTOSCOPY, INSERT URETERAL STENT Right 09/14/2019 CYSTO, STENT PLACEMENT INTRAOP, TEMPORARY (WRVU 2.82) performed by Werner Fournier MD at [facility] MAIN OR ??? PRO MOBILIZE SPLENIC FLEX N/A 09/14/2019 @MOBILIZATION OF SPLENIC FLEXURE (WRVU 2.23) performed by Miryam Wiley MD at [facility] OR ??? PRO OMENTAL FLAP, INTRA-ABDOMINAL 09/14/2019 @OMENTAL FLAP, INTRA-ABDOMINAL (WRVU 6.54) performed by Miryam Wiley MD at [facility] MAIN OR ??? PRO SIGMOIDOSCOPY, DIAGNOSTIC N/A 09/14/2019 SIGMOIDOSCOPY, FLEXIBLE W/WO SPECIMEN BY BRUSHING OR WASHING (WRVU 0.84) performed by Miryam Wiley MD at [facility] OR ??? TUBAL LIGATION Medications No current [...] only place NG tube in left nostril). vice president of instruction states that as long as pt is [...] patient at the bedside and chart review. SELMA Montgomery is a 59 y.o. female with history of diverticulitis, cholecystectomy, , partialcolectomy with colostomy, hernia repair who presents to the Emergency Department transfer from [facility] concern about bowel obstruction. She reports 2 days of abdominal pain, p.o. intolerance of nonbloody nonbilious vomiting which prompted her to present to the ER where she had work-up remarkable for white count of 19.[address] showing ?SBO/incarcerated hernia. At [facility] she received IV fluids, Flagyl, morphine, Zofran. [...] -- -- 70 15 94 % -- 04/24/20 2245 129/56 -- -- 66 11 93 % -- 04/24/20 2230 92/72 -- -- 73 14 94 % -- 04/24/20 2215 120/62 -- -- 67 12 94 % -- 04/24/20 2210 (!) 154/129 36.7 ??C (98.1 ??F) Oral [...] mg/dL Lactate, whole blood, send to lab ([facility]) Result Value Ref Range Lactate WB 1.4 [...] add comments as necessary): AP; Sending Institution [facility]; Date of exam [id number]; I believe a reinterpretation of this exam may alter care of Patient. Yes TECHNIQUE: Outside hospital contrast enhanced CT of the abdomen and pelvis performed at [facility] on 04/24/2020 at 3:45 PM. Reinterpretation requested [...] presents to the Emergency Department transfer from [facility] with concern about bowel obstruction. Upon arrival [...] oriented to person, place, and time. Comments: LAMAR Psychiatric: Behavior: Behavior normal. Thought Content: Thought [...] components within normal limits RAPID COVID-19 PCR ([facility]) CBC (WITH DIFF) MAGNESIUM PHOSPHORUS LACTATE, WHOLE BLOOD, SEND TO LAB ([facility]) BLUE TUBE HOLD GOLD TUBE HOLD MARTÍNEZ [...] OR. ED Course as of Apr 24 2325ThuApr 24, 2020 224 Surgery aware 2303 Repeat BP improved Hanane [...] in places where it is forbidden ex [facility] No Yes0 3. Which cigarette would [...] We reviewed the services available through the [place] quit line and patient was provided with [...] needed. Thank you. Joshua Medina, MSN, RN-, [facility] Tobacco Air Support Operations Operator [facility] Pager #[phone] Plan of Care - Chiquita Morel RN [...] OUTCOME EVALUATION: Ongoing Plan of Care - Ebony Ramirez RN - 04/26/2020 3:18 [...] within the last 30 days. Transfer from [facility] Patient receiving hospital care under Inpatient status. Admission order reviewed. Primary Insurance on file: MEDICAID [place] Secondary Insurance on file: n/a Primary care provider on file: Hanane Martinez MD [phone] Advance Directive on file and Code Status: <no information>, Attempt Cardiopulmonary Resuscitation - Inpatient She was inpatient - September 2019 - noting: Given [place] Advance Directive booklet: wishes to identify brother Solomon and rob Chavez as DPOAHs Patient???s Functional Status: Independent; including ADL's; Drives. Living Situation: Lives with brother/Solomon and EMELIA/Kimberly [address] [place] [phone] Supports: Family Assessment: Patient with no apparent RNCM/SW needs at this time. No housing, transportation, insurance, resources concerns identified at this time. Supports in place to achieve a safe post-hospital transition. No identified barriers to accessing necessary care and/or follow-up after discharge. Has used in the past but discharged from services last year. [facility]. PHONE: [phone] FAX: [phone] Plan: Patient to d/c to home via car/family when medically ready. cage tender/Photography Spotter will continue to follow patient???s progress and remain available if situation changes for coordination of care, psychosocial support and/or discharge planningKatherin Santos RN (Jonas) RN/CM - Cellphone: [phone] Pager: [phone] Covering Service RN/CM Op Note - Liberty Swann MD - 04/25/2020 9:38 AM EST [facility] Operative Note Patient Name: Jahaira Montgomery : [id number] MR#: [id number] Case Date: 04/25/2020 Surgeon: Surgeon(s) and Role: [...] SWANN MD 04/25/2020 ED Triage - Janel Bourgeois, RN - 04/24/2020 10:14 PM EST Pt. Transfer by [facility] ambulance from [facility] for surgical eval. Of bowel obstruction. Pt. C/o lower abdominal pain constant x 2 days. She arrives awake alert oriented able to take a few steps from the hallway to her stretcher. Skin warm pink dry. Also c/o nausea last vomited this am prior to going to [facility]> documented in this encounter Plan of Treatment Upcoming Encounters Date Type Specialty Care Team Description 09/30/2021 Office Visit General Surgery Paloma Mota, HELP DESK REPRESENTATIVE [facility] ER GENERAL SURGERY [place], [place] [address] (Wo rk) 09/30/2021 Office Visit Infectious Diseases Werner Harrell MD [facility] ER INFECTIOUS DISEA [place], [place] [address] (Wo rk) documented as of [...] 04/25/2020 6:51 AM Res ults for this ([facility]) EST procedure are in the results section. [...] (ABNORMAL) Differential, Automated (04/26/2020 4:16 AM EST) [facility] Method Time Signature Neutrophils % 73.5 % [facility] LABOR[facility]ORY Neutr Abs (ANC) 11.39 (H) 1.70 - [facility] 6.10 [facility] x10(3)/[facility] LABORATORY Lymphocytes % 17.6 % [facility] Lymphocytes Abs 2.7 0.9 - 3.2 [facility] x10(3)/[facility] LABORATORY Monocytes % 5.7 % [facility] Monocyte Abs 0.9 0.3 - 0.9 [facility] x10(3)/[facility] LABORATORY Eosinophils % 2.3 % [facility] Eosinophils Abs 0.4 0.0 - 0.4 [facility] x10(3)/[facility] LABORATORY Basophils % 0.6 % [facility] Basophils Abs 0.1 0.0 - 0.1 [facility] x10(3)/[facility] LABORATORY Immature Gran % 0.30 % [facility] Comment: Immature granulocytes(IG's)percentage an d absolute count will include metamyelocytes, myelocytes, and promyelo cytes. Blood smears from CBCs yielding IG's will be scanned manually for concor dance. If this scan disagrees with the automated IG or if promyelocytes are not ed, a manual differential will be performed. Shantell Gran Abs 0.05 (H) 0.00 - 0.04 x10(3)/[facility] LABORATORY Specimen Anatomical Collection Method Collection Time Receive d Time (Source) Location / / Volume Laterality Blood specimen 04/26/2020 4:16 AM 021 4:52 (specimen) EST AM EST Resulting Agency Comment Spec In Lab Chary Brunner MD HEMATOLOGY ORDERABLES Performing Organization Address City/State/[place] [address] (ABNORMAL) Hemogram (04/26/2020 4:16 AM EST) Analysis Performed At Patho logist Time Signature WBC 15.5 (H) 4.0 - 9.5 [facility] LABORATORY RBC 4.24 4.00 - [facility] 5.21 [facility] x10(6)/[facility] LABORATORY Hemoglobin 12.9 11.7 - [facility] 15.5 gm/dL [facility] LABORATORY Hematocrit 39.4 35.7 - [facility] NAVEEN 45.8 % [facility] LABORATORY MCV 92.9 82.[address] [facility] 94.4 [facility] LABORATORY MCH 30.4 27.1 - [place] 32.0 pg [facility] LABORATORY MCHC 32.7 31.7 - [place] 35.0 gm/dL [facility] LABORATORY Platelets 243 145 - 357 [facility] x10(3)/[facility] LABORATORY RDWSD 43.6 37.0 - [facility] NAVEEN 46.0 [facility] LABORATORY RDWCV 12.8 11.5 - [place] 14.1 % [facility] LABORATORY MPV 9.8 7.6 - 12.[address] [facility] nRBC % Auto 0.0 % [facility] LABORATORY nRBC Abs Auto 0.000 0.000 - [facility] NAVEEN 0.000 [facility] x10(3)/[facility] LABORATORY Specimen Anatomical Collection Method Collection Time Receive d Time (Source) Location / / Volume Laterality Blood specimen 04/26/2020 4:16 AM 021 4:52 (specimen) EST AM EST Resulting Agency Comment Spec In Lab Chary Brunner MD HEMATOLOGY ORDERABLES Performing Organization Address City/State/[place] [address] Phosphorus (04/26/2020 4:16 AM EST) P athologist Signature Phosphorus 2.9 2.5 - [address] [facility] mg/dL [facility] LABORATORY Specimen Anatomical Collection Method Collection Time Receive d Time (Source) Location / / Volume Laterality Blood specimen 04/26/2020 4:16 AM 021 4:52 (specimen) EST AM EST Resulting Agency Comment Spec In Lab Deangelo Oliveira MD CHEMISTRY ORDERABLES Performing Organization Address City/[facility]/ZIP Code Phon e Number [address] Magnesium (04/26/2020 4:16 AM EST) P athologist Signature Magnesium 0.88 0.69 - 1.07 [facility] mmol/L [facility] LABORATORY Specimen Anatomical Collection Method Collection Time Receive d Time (Source) Location / / Volume Laterality Blood specimen 04/26/2020 4:16 AM 021 4:52 (specimen) EST AM EST Resulting Agency Comment Spec In Lab Deangelo Oliveira MD CHEMISTRY ORDERABLES Performing Organization Address City/[facility]/ZIP Code Phon e Number [address] (ABNORMAL) Basic Metabolic Panel (non-fasting) (04/26/2020 4:16 AM EST) athologist Signature Glucose Lvl 102 65 - 199 [facility] mg/dL [facility] Comment: Diabetes: >=200 mg/dL plus symp toms BUN 13 8 - 18 mg/dL [facility] LAB[facility]ORY Creatinine 0.49 (L) 0.70 - 1.20 mg/dL [facility] LABORATORY Sodium 142 135 - 145 [...] estions. Chloride 104 98 - 107 mmol/L [facility] CO2 31 22 - 31 mmol/L [facility] Anion Gap 7 5 - 15 mmol/L [facility] Calcium 8.8 8.5 - 10.5 mg/dL [facility] LABORATORY Estimated GFR 108 >=60 mL/min/1.73 m?? [facility] Comment: This patient? s estimated [...] Organization Address City/State/ZIP Code Phon e Number [place] [phone] LAB[address]ORY [address] (ABNORMAL) Differential, Automated (04/25/2020 9:54 AM EST) [facility] gist Method Time Signature Neutrophils % 88.5 % [facility] LABORATORY Neutr Abs (ANC) 14.64 (H) 1.70 - [facility] 6.10 [facility] x10(3)/[facility] L LABORATORY Lymphocytes % 8.9 % [facility] LABORATORY Lymphocytes Abs 1.5 0.9 - 3.2 [facility] x10(3)/[facility] LABORATORY Monocytes % 1.5 % [facility] LABOR[facility] Monocyte Abs 0.2 (L) 0.3 - 0.9 [facility] x10(3)/[facility] LABORATORY Eosinophils % 0.2 % [facility] LABOR[facility]ORY Eosinophils Abs 0.0 0.0 - 0.4 [facility] x10(3)/[facility] LABORATORY Basophils % 0.4 % [facility] LABORAT[facility] Basophils Abs 0.1 0.0 - 0.1 [facility] x10(3)/[facility] LABORATORY Immature Gran % 0.50 % [facility] Comment: Immature granulocytes(IG's)percentage an d absolute count will include metamyelocytes, myelocytes, and promyelo cytes. Blood smears from CBCs yielding IG's will be scanned manually for concor dance. If this scan disagrees with the automated IG or if promyelocytes are not ed, a manual differential will be performed. Shantell Gran Abs 0.09 (H) 0.00 - 0.04 x10(3)/[facility] LABORATORY Specimen Anatomical Collection Method Collection Time Receive d Time (Source) Location / / Volume Laterality Blood specimen 04/25/2020 9:54 AM 021 (specimen) EST 10:04 AM EST Resulting Agency Comment Spec In Lab Elliott Kim MD HEMATOLOGY ORDERABLES Performing Organization Address City/State/[place] [address] (ABNORMAL) Hemogram (04/25/2020 9:54 AM EST) Analysis Performed At Patho logist Time Signature WBC 16.6 (H) 4.0 - 9.5 [facility] x10(3)/[facility] LABORATORY RBC 4.70 4.00 - [facility] 5.21 [facility] x10(6)/[facility] LABORATORY Hemoglobin 14.4 11.[address] [facility] gm/dL [facility] Hematocrit 44.1 35.7 - [facility] 45.8 % [facility] MCV 93.8 82.[address] [facility].4 fL [facility] LAB[facility]ORY MCH 30.6 27.1 - [place] 32.0 pg [facility] MCHC 32.7 31.7 - [facility] 35.0 gm/dL [facility]ORY Platelets 244 145 - 357 [facility] x10(3)/[facility] LABORATORY RDWSD 44.4 37.0 - [facility] 46.0 [facility] LABORATORY RDWCV 12.9 11.5 - [facility] 14.1 % [facility] LABORATORY MPV 9.7 7.6 - 12.9 [facility] LABORATORY nRBC % Auto 0.0 % [facility] LABORATORY nRBC Abs Auto 0.000 0.000 - [facility] 0.000 [facility] x10(3)/[facility] LABORATORY Specimen Anatomical Collection Method Collection Time Receive d Time (Source) Location / / Volume Laterality Blood specimen 04/25/2020 9:54 AM 021 (specimen) EST 10:04 AM EST Resulting Agency Comment Spec In Lab Elliott Kim MD HEMATOLOGY ORDERABLES Performing Organization Address City/State/ZIP Code Phon e Number [place] [phone]OS[address]ORY Drive (ABNORMAL) Basic Metabolic Panel (non-fasting) (04/25/2020 9:54 AM EST) athologist Signature Glucose Lvl 152 65 - 199 [facility] mg/dL [facility] Comment: Diabetes: >=200 mg/dL plus symp toms BUN 17 8 - 18 mg/dL [facility] LABOR[facility]ORY Creatinine 0.62 (L) 0.70 - 1.20 mg/dL [facility] LABORATORY Sodium 138 135 - 145 [...] estions. Chloride 104 98 - 107 mmol/L [facility] CO2 24 22 - 31 mmol/L [facility] Anion Gap 10 5 - 15 mmol/L [facility] Calcium 8.6 8.5 - 10.5 mg/dL [facility] LABORATORY Estimated GFR 100 >=60 mL/min/1.73 m?? [facility] Comment: This patient? s estimated [...] Organization Address City/State/[place] [address] XR Abdomen 1 view [...] right hemiabdo men is excluded from the iucge-ma-ahba. Right upper quadrant surgical clips are present [...] right hemiabdo men is excluded from the awoud-dq-bptg. Right upper quadrant surgical clips are present from cholecystectomy. No pathologic calcifications are noted. IMPRESSION 1. Nasogastric tube tip is in the stomac h. 2. Dilated small bowel unchanged from pr ior, consistent with known small bowel obstruction. Thank you for letting us participate in the care of this patient. For questions regarding this report, please contact th e number below. Liberty Swann MD IMG DX ORDERABLES COVID-19 PCR (04/25/2020 6:51 AM EST) [facility] Method Time Signature SARS-CoV-2 Not Detected Not Detected [place] RNA PCR [facility] LABORATORY Comment: This result should be [...] using the Simplexa COVID-19 Direct Assay by [email or web address] zhang as authorized by the FDA issued Emergency Use Authorization (EUA). This assay is intended for In-vitro Diagnostic (IVD) use with nasopharyngeal swabs collected from individuals meeting the CDC criteria for testing. assay is performed based on the instructions for use and additional guid daniel provided by the FDA. Testing is performed in the Microbiology Laboratory within the Department of Pathology and Laboratory Medicine at [facility], certified under the Clinical Laboratory Improvement [...] fact sheets at the following FDA website: https://www.fda.gov/medical-devices/cyqcldkaoxl-cmgztin-4963-pgmtp-01-kqzmsctis- fvw-dcvmmusheqeywu-rksrebj-devices/lgdoo-jwfgplxdpyw-pevz SARS-CoV-2 Source EXPRESSIVE MUSIC THERAPIST Swab [facility] LABORATORY Specimen (Source) Anatomical Collection Method Collection Time Re ceived Time Location / / Volume Laterality Nasopharyngeal swab 04/25/2020 6:51 04/25 (specimen) AM EST 7:42 AM EST Comment: Symptoms->Surveillance Resulting Agency Comment Spec In Lab iLberty Swann MD MICROBIOLOGY - GENERAL ORDER [place] Performing Organization Address City/State/ZIP Code Phon e Number [place] [phone]OSPITAL [address]ORY [address] Request For 2nd Read [...] add comments as necessary): AP; [facility] Date of exam 20200424; I believe a reint erpretation of this exam may alter care of Patient. Yes TECHNIQUE: Outside hospital contrast enhanced CT of the abdomen and pelvis performed at [facility] o n 04/24/2020 at 3:45 PM. Reinterpretation [...] add comments as necessary): AP; [facility]; Date of exam 20200424; I believe a reint erpretation of this exam may alter care of Patient. Yes TECHNIQUE: Outside hospital contrast enhanced CT of the abdomen and pelvis performed at [facility] o n 04/24/2020 at 3:45 PM. Reinterpretation [...] For questions regarding this report, please contact th e number below. Liberty Swann MD IMG OUTSIDE INTERPRETATION O RDERABLES Martínez Tube Hold (04/24/2020 10:34 PM EST) P athologist Signature Martínez Hold Sample in [facility] LABORATORY Specimen Anatomical Collection Method Collection Time Receive d Time (Source) Location / / Volume Laterality Blood specimen Venous Draw / 04/24/2020 10:34 04/24/19 21 (specimen) Unknown PM EST 10:41 PM EST Jean Claude Aly MD CHEMISTRY ORDERABLES Performing Organization Address City/[facility]/ZIP Code Phon e Number [address] Gold Tube HOLD (04/24/2020 10:34 PM EST) P athologist Signature Gold Hold Sample in [facility] LABORATORY Specimen Anatomical Collection Method Collection Time Receive d Time (Source) Location / / Volume Laterality Blood specimen Venous Draw / 04/24/2020 10:34 04/24/19 21 (specimen) Unknown PM EST 10:41 PM EST Jean Claude Aly MD CHEMISTRY ORDERABLES Performing Organization Address City/[facility]/ZIP Code Phon e Number [address] Blue Tube HOLD (04/24/2020 10:34 PM EST) P athologist Signature Blue Hold Sample in [facility] LABORATORY Specimen Anatomical Collection Method Collection Time Receive d Time (Source) Location / / Volume Laterality Blood specimen Venous Draw / 04/24/2020 10:34 04/24/19 21 (specimen) Unknown PM EST 10:41 PM EST Jean Claude Aly MD HEMATOLOGY ORDERABLES Performing Organization Address City/[facility]/ZIP Code Phon e Number [address] (ABNORMAL) Differential, Automated (04/24/2020 10:34 PM EST) Patholo gist Method Time Signature Neutrophils % 60.5 % [facility] LABORATORY Neutr Abs (ANC) 8.32 (H) 1.70 - [facility] 6.10 [facility] x10(3)/[facility] LABORATORY Lymphocytes % 28.0 % [facility] LABORATORY Lymphocytes Abs 3.8 (H) 0.9 - 3.2 [facility] x10(3)/[facility] LABORATORY Monocytes % 7.9 % [facility] LABORATORY Monocyte Abs 1.1 (H) 0.3 - 0.9 [facility] x10(3)/[facility] LABORATORY Eosinophils % 2.3 % [facility] LABORATORY Eosinophils Abs 0.3 0.0 - 0.4 [facility] x10(3)/[facility] LABORATORY Basophils % 0.5 % [facility] LABOR[facility] Basophils Abs 0.1 0.0 - 0.1 [facility] x10(3)/[facility] LABORATORY Immature Gran % 0.80 % [facility] Comment: Immature granulocytes(IG's)percentage an d absolute count will include metamyelocytes, myelocytes, and promyelo cytes. Blood smears from CBCs yielding IG's will be scanned manually for concor dance. If this scan disagrees with the automated IG or if promyelocytes are not ed, a manual differential will be performed. Shantell Gran Abs 0.11 (H) 0.00 - 0.04 x10(3)/[facility] LABORATORY Specimen Anatomical Collection Method Collection Time Receive d Time (Source) Location / / Volume Laterality Blood specimen 04/24/2020 10:34 (specimen) PM EST 10:40 PM EST Resulting Agency Comment Spec In Lab Jean Claude Aly MD HEMATOLOGY ORDERABLES Performing Organization Address City/State/[place] [address] (ABNORMAL) Hemogram (04/24/2020 10:34 PM EST) Analysis Performed At Patho logist Time Signature WBC 13.8 (H) 4.0 - 9.5 [facility] x10(3)/[facility] LABORATORY RBC 4.83 4.00 - [facility] 5.21 [facility] x10(6)/[facility] LABORATORY Hemoglobin 14.9 11.7 - [place] 15.5 gm/dL [facility] LABOR[facility]ORY Hematocrit 45.1 35.7 - [place] 45.8 % [facility] LABORATORY MCV 93.4 82.6 - [facility] 94.4 [facility] LABORATORY MCH 30.8 27.1 - [place] 32.0 pg [facility] LABORATORY MCHC 33.0 31.7 - [place] 35.0 gm/dL [facility] LABORATORY Platelets 274 145 - 357 [facility] x10(3)/[facility] LABORATORY RDWSD 44.8 37.0 - [place] 46.0 [facility] LABORATORY RDWCV 13.1 11.5 - [facility] 14.1 % [facility] LABORATORY MPV 9.4 7.6 - 12.9 [facility] LABORATORY nRBC % Auto 0.0 % [facility] LABORATORY nRBC Abs Auto 0.000 0.000 - [facility] 0.000 [facility] x10(3)/[facility] LABORATORY Specimen Anatomical Collection Method Collection Time Receive d Time (Source) Location / / Volume Laterality Blood specimen 04/24/2020 10:34 1 (specimen) PM EST 10:40 PM EST Resulting Agency Comment Spec In Lab Jean Claude Aly MD HEMATOLOGY ORDERABLES Performing Organization Address City/State/ZIP Code Phon e Number [address] Lactate, whole blood, send to lab ([facility]) (04/24/2020 10:34 PM EST) P athologist Signature Lactate WB 1.4 0.5 - [address] [facility] mmol/L [facility] LABOR[facility]ORY Specimen Anatomical Collection Method Collection Time Receive d Time (Source) Location / / Volume Laterality Blood specimen 04/24/2020 10:34 1 (specimen) PM EST 10:39 PM EST Resulting Agency Comment Spec In Lab Liberty Swann MD CHEMISTRY ORDERABLES Performing Organization Address City/State/[place] [address] Phosphorus (04/24/2020 10:34 PM EST) athologist Signature Phosphorus 2.9 2.5 - 4.[address] [facility] mg/dL [facility] LABOR[facility]ORY Specimen Anatomical Collection Method Collection Time Receive d Time (Source) Location / / Volume Laterality Blood specimen 04/24/2020 10:34 1 (specimen) PM EST 10:40 PM EST Resulting Agency Comment Spec In Lab Liberty Swann MD CHEMISTRY ORDERABLES Performing Organization Address City/[facility]/ZIP Code Phon e Number [address] Magnesium (04/24/2020 10:34 PM EST) athologist Signature Magnesium 0.82 0.69 - [address] [facility] mmol/L [facility] LABORATORY Specimen Anatomical Collection Method Collection Time Receive d Time (Source) Location / / Volume Laterality Blood specimen 04/24/2020 10:34 1 (specimen) PM EST 10:40 PM EST Resulting Agency Comment Spec In Lab Liberty Swann MD CHEMISTRY ORDERABLES Performing Organization Address City/State/ZIP Code Phon e Number [address] (ABNORMAL) Basic Metabolic Panel (non-fasting) (04/24/2020 10:34 PM EST) athologist Signature Glucose Lvl 120 65 - 199 [facility] mg/dL [facility] LAB[facility]ORY Comment: Diabetes: >=200 mg/dL plus symp toms BUN 19 (H) 8 - 18 mg/dL [facility] LABOR[facility]ORY Creatinine 0.60 (L) 0.70 - 1.20 mg/dL [facility] LABORATORY Sodium 137 135 - [...] estions. Chloride 105 98 - 107 mmol/L [facility] LABOR[facility] CO2 22 22 - 31 mmol/L [facility] Anion Gap 10 5 - 15 mmol/L [facility] Calcium 8.5 8.5 - 10.5 mg/dL [facility] LABORATORY Estimated GFR 101 >=60 mL/min/1.73 m?? [facility] Comment: This patient? s estimated [...] Organization Address City/State/[place] [address] documented in this encounter Visit Diagnoses Not on filedocumented in this encounter Admitting Diagnoses Diagnosis Incarcerated hernia Hernia of unspecified site, with obstruc tion documented in this encounter Administered Medications Inactive Administered Medications - up to 3 most recent administrations Medication Order MAR Action Action Date Dose Rate Site BUpivacaine (pf) Given 04/25/2020 6:48 AM 30 mLs 19- Surgical Site (Marcaine) (5 mg/mL) 0.5% EST injection ONCE PRN, Starting on Thu04/25/20 at 0648, Until Thu04/27/20 at 1516, Intra-Operative (Intra-Procedure), Routine heparin (porcine) (5,000 units/1 mL) Given 04/27/2020 1:08 AM ES T 5,000 Units subcutaneous injection 5,000 Units 5,000 Units, Subcutaneous, EVERY 8 HOURS SCHEDULED, First dose on Thu04/25/20 at 1400, Until Discontinued, Routine Given 04/26/2020 3:42 PM EST 5,000 Units Given 04/26/2020 8:00 AM EST 5,000 Units nicotine (NICODERM CQ) 7 mg/24 hr patch [...] 0909, Until Thu04/27/20 at 1516, Irritation, Routine senna-docusate (Pericolace) 8.6-50 mg pe r tablet [...] Given 04/26/2020 9:01 AM EST 5 mLs documented in this [...] use) (COMPLETED) 0355 (Given - Provider: Ronel Troncoso RN) Oral, ONCE, Thu04/25/20 at 0355, 1 dose, For Procedural use. [place] on area for one second. May repeat [...] Provider: Chiquita Morel RN - Comment: not applied previously) 0900 (Patch Not Verified (add comment) - Provider: Ebony Ramirez RN - Comment: not applied)2100 (Patch [...] 2 TIMES DAILY, First dos e on Thu04/26/20 at 2100, Until Discontinued, Routine sodium chloride 0.9 % (flush) flush 5 mL 1047 (Given - Provider: Ebony Ramirez RN)2040 (Not Given - Provider: Chiquita Morel RN - Reason: See comment - Comment: infusing) 0901 (Given - Provider: Dell Kaplan)2106 (Given - Provider: Chiquita Morel RN) 0905 [...] 1 MIN PRN, S tarting Thu04/25/20 at 09, Until Thu04/27/20 at 151, flush, Flush pertains to all indwelling lines. [...] mg, Intravenous, EVERY 8 HOURS PRN, Starting 04/25/20 at 0927, Until Thu04/27/20 at 1516, Nausea
Start with 4mg and if ineffective in 30 minutes, give an additional 4mg If mu ltiple antiemetics are ordered, give ond ansetron first.
documented in this encounter Care Teams Solvent Plant Treater Relationship Specialty Start Date End Date Hanane Martinez MD PCP - General Internal Medicine 08/09/19 04/23/21 [address] [place] [id number] documented as of this encounter
--- OUTSIDE RECORDS SUMMARY | 2021-09-27 14:54 | XMS_ITS | Encounter Summary ---
:1960 Author Organization [facility] [place] [address] Care Team Providers Name Role Phone Hanane Martinez MD Primary Care Provider Reason for Visit Reason Comments Follow-up Encounter Details Date Type Department Care Team Description 05/25/2020 Office Visit General Surgery at [facility] Paloma Mota, [place] [address] GENERAL SURGERY [place] [id number] (Wo rk) Social History Tobacco Use Types [...] Pressure - - Pulse - - Temperature 36.3 ??C (97.4 ??F) 05/25/2020 10:48 AM EST Respiratory Rate - - Oxygen Saturation - - Inhaled Oxygen Concentration - - Weight 100.5 kg (221 lb 8 oz) 05/25/2020 10:48 AM EST Height - - Body Mass Index 43.49 04/26/2020 3:39 PM EST documented in this encounter Progress Notes Paloma Mota APRN - 05/25/2020 11:00 AM EST Jahaira Montgomery presents today for surgical follow up. 04/25/20: Exploratory laparotomy incarcerated ventral hernia repair-Santosh Findings: hernia able to be reduced, bowel viable, hernia defect repaired primarily Jahaira tells me she is doing fairly well. Reports some tenderness over the repair site however this has been improving. No fevers or chills, nausea or vomiting. She is eating well, ( ate a cheeseburger last night)her bowels are working however slower than usual and softer, she has daily to QOD bowel movements. She is passing flatus. She takes miralax twice daily. EXAM: Looks well, moves easily about the exam room and onto the exam table .Midline abdominal incision is nicely healed with the exception of a 2cm area that is open superficially. No erythema or fluctuance,no drainage. No bulge with valsalva. Impression/plan: Seen with Dr Frost, doing well. We have asked her to try senna s BID in addition to the mirilax for her bowels. Otherwise, we will have Jahaira FU with us on an as needed basis. We have asked her not to lift >15 lbs until after 6w post surgery date. documented in this encounter Plan of Treatment Upcoming Encounters Date Type Specialty Care Team Description 09/30/2021 Office Visit General Surgery Paloma Mota APRN [facility] GENERAL SURGERY [place], [place] [address] (Wo rk) 09/30/2021 Office Visit Infectious Diseases Werner Harrell MD [facility] INFECTIOUS DISEA [place], [place] [address] (Wo rk) documented as of this encounter Visit Diagnoses Diagnosis Surgery follow-up Follow-up examination, following unspeci fied surgery documented in this encounter Care Teams Cathodic Protection Technician Relationship Specialty Start Date End Date Hanane Martinez MD PCP - General Internal Medicine 08/09/19 [address] [place] [phone] documented as of this encounter
--- OUTSIDE RECORDS SUMMARY | 2021-09-27 14:54 | XMS_ITS | Encounter Summary ---
:1960 Author Organization [facility] [place] [address] Care Team Providers Name Role Phone Hanane Martinez MD Primary Care Provider Reason for Visit Reason Onset Date Comments Follow-up 05/29/2020 Tobacco Treatment Encounter Details Date Type Department Care Team Description 05/29/2020 Telephone Vascular Surgery at [facility] (Tobacco [facility], RN Treatment) [place] [address] Social History Tobacco Use Types Packs/Day [...] this encounter Miscellaneous Notes Telephone Encounter - Joshua Medina RN - 05/29/2020 1:00 PM EDT DATE: 05/29/2020 NAME: Jahaira Montgomery : 1960 Reason for Call: 1-month follow-up for Tobacco Treatment Pt reports that she continues to smoke, however, has cut down to less than half a pack/day. She still has NRT supply from [facility] and plans to begin using the nicotine gum again soon. She is on activity restriction until 06/08 and plan to commit to quitting at that time. EMR updated. This office will continue scheduled follow-ups. Pt encouraged to contact this office with any questions regarding quitting smoking. Joshua Medina, MSN, RN[facility] Marine Electrician Apprentice [facility] Pager #[phone] documented in this encounter Plan of Treatment Upcoming Encounters Date Type Specialty Care Team Description 09/30/2021 Office Visit General Surgery Paloma Mota, TAMMY [facility] MEDICAL [facility] ER GENERAL SURGERY [place], [place] [address] (Wo rk) 09/30/2021 Office Visit Infectious Diseases Werner Harrell MD [facility] ER INFECTIOUS DISEMary [place], [place] [address] (Wo rk) documented as of this encounter Visit Diagnoses Not on filedocumented in this encounter Care Teams Pipefitter Relationship Specialty Start Date End Date Hanane Martinez MD PCP - General Internal Medicine 08/09/[address] [place] [phone] documented as of this encounter
--- OUTSIDE RECORDS SUMMARY | 2021-09-27 14:54 | XMS_ITS | Encounter Summary ---
:1960 [place] [address] Care Team Providers Name Role Phone Hanane Martinez MD Primary Care Provider Encounter Details Date Type Department Care Team Description 04/24/2020 Ancillary Procedure Radiology Library at [facility], Talib Abrams [facility] [place] [address] GENERAL SURGERY [phone] [place], [place] [address] (Wo rk) Social History Tobacco [...] Office Visit General Surgery Paloma Mota, TAMMY [facility] ER GENERAL CES[place], [place] [address] (Wo rk) 09/30/2021 Office Visit Infectious Diseases Werner Harrell MD [facility] ER INFECTIOUS DISEA [place], [place] [address] (Wo rk) documented as of this encounter Procedures Procedure Name Priority Date/Time Associated Diagnosis Comme nts FILM LIBRARY Routine 04/24/2020 7:28 PM Results f or this STORAGE ONLY CT EST procedure ar e in ABDOMEN AND PELVIS the resul ts section. documented in this encounter Results Film Library- Storage Only CT Abdomen & Pelvis (04/24/2020 7:28 PM EST) Specimen (Source) Anatomical Location Collection Method / Collectio n Time Received Time / Laterality Volume Narrative [facility] - 04/24/2020 7:28 PM EST This exam is auto-finalizing. It's purpo se is for storage only. Jerod Frost MD IMG FILM LIBRARY ORDERABLES Performing Organization Address City/State/ZIP Code Phon e Number [place], [place] documented in this encounter Visit Diagnoses Not on filedocumented in this encounter Care Teams Cushion Installer Relationship Specialty Start Date End Date Hanane Martinez MD PCP - General Internal Medicine 08/09/19 [address] [place] [phone] documented as of this encounter
--- OUTSIDE RECORDS SUMMARY | 2021-09-27 14:54 | XMS_ITS | Encounter Summary ---
:1960 Author Organization [facility] [place] [address] Care Team Providers Name Role Phone Hanane Martinez MD Primary Care Provider Encounter Details Date Type Department Care Team Description 10/06/2019 Telephone General Surgery at [facility] BEDS AT [facility] Cheryl Palacios, [place] [address] Social History Tobacco Use Types Packs/Day [...] this encounter Miscellaneous Notes Telephone Encounter - Cheryl Wong RN - 10/06/2019 3:28 PM EDT I received a call from Clarissa who wanted to relay information about Jahaira's wound. I called and received her voice mail. I left a message with return phone number and the nature of my call. I called Jahaira while waiting for a call from the A and learned she has shelley still in. She was under the impression the shelley were to come out on October 17. I explained as indicated on her discharge summary her shelley were to come out on September 24 -14 th andtoday is the . The [facility] nurses will remove the shelley tomorrow as [place]air[place] over [place]. They will call if there are any problems or concerns. Jahaira under went surgery with Dr. Miryam Wiley on September 1309/14/2019 Surgeon(s) and Role: Panel 1: * Miryam Wiley MD - Primary Panel 2: * Werner Fournier MD - Primary Panel 1 @CLOSE ENTEROSTOMY, LG,SM INTESTINE, W\RESECT COLORECTAL ANAST. (WRVU 27.9): SIGMOIDOSCOPY, FLEXIBLE W/WO SPECIMEN BY BRUSHING OR WASHING (WRVU 0.84): @OMENTAL FLAP, INTRA-ABDOMINAL (WRVU 6.54): @MOBILIZATION OF SPLENIC FLEXURE (WRVU 2.23): Panel 2 CYSTO, STENT PLACEMENT INTRAOP, TEMPORARY (WRVU 2.82): ? 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 ??She desires colostomy reversal. documented in this encounter Plan of Treatment Upcoming Encounters Date Type Specialty Care Team Description 09/30/2021 Office Visit General Surgery Paloma Mota, SENIOR SALES ASSISTANT [facility] GENERAL SURGERY [place], [place] [address] (Wo rk) 09/30/2021 Office Visit Infectious Diseases Werner Harrell MD [facility] ER INFECTIOUS DISEA [place], [place] [address] (Wo rk) documented as of this encounter Visit Diagnoses Not on filedocumented in this encounter Care Teams Rn Transport Relationship Specialty Start Date End Date Hanane Martinez MD PCP - General Internal Medicine 08/09/19 04/23/21 [address] [place] [phone] documented as of this encounter
--- OUTSIDE RECORDS SUMMARY | 2021-09-27 14:54 | XMS_ITS | Encounter Summary ---
:1960 [place] [address] Care Team Providers Name Role Phone Hanane Martinez MD Primary Care Provider Encounter Details Date Type Department Care Team Description 10/18/2019 Office Visit General Surgery at [facility] Miryam Wiley MD Diverticulitis [facility] [place] [address] GENERAL SURGERY [phone] [place] [id number] (Wo rk) Social History Tobacco Use Types [...] Sign Reading Time Taken Comments Blood Pressure 137/77 10/18/2019 9:18 AM EDT Pulse 78 10/18/2019 9:18 AM EDT Temperature 36.7 ??C (98 ??F) 10/18/2019 9:18 AM EDT Respiratory Rate 16 10/18/2019 9:18 AM EDT Oxygen Saturation 97% 10/18/2019 9:18 AM EDT Inhaled Oxygen Concentration - - Weight 89 kg (196 lb 1.6 oz) 10/18/2019 9:18 AM EDT Height - - Body Mass Index 38.7 09/14/2019 11:17 AM EDT documented in this encounter Progress Notes Miryam Wiley MD - 10/18/2019 9:30 AM EDT Colorectal Surgery Follow Up HPI: Jahaira presents today for follow up after Lucy's reversal and repair parastomal hernia. She is doing great. She is not taking pain medication. Eating in her typical eating patterns. Had some anal pain with bowel movements early on but this has completely resolved. Still wearing the abdominal binder. Started smoking again after 1.5 weeks. BP 137/77 Pulse 78 Temp 36.7 ??C (98 ??F) Resp 16 Wt 89 kg (196 lb 1.6 oz) SpO2 97% BMI 38.70 kg/m?? Body mass index is 38.7 kg/m??. Gen NAD Abd soft NT ND. Incision (midline and stoma site) well healed. No hernia palpated. COREFO Responses 10/18/2019 Incontinence Scale 5.55 Social Impact Scale 2.77 Frequency Scale 25 Stool Releated Aspects 8.33 Medication Scale 0 Total COREFO Score 5.76 The COREFO questionnaire is a validated questionnaire with 27 questions to assess colorectal functional outcome. Patients are asked to consider the two week period prior before filling out the questionnaire. Category scores range from zero to 100. A total score is calculated from the categories above,also ranging from zero to 100. A higher score represents an increased level of functional disturbance. Assessment/Plan: Jahaira Montgomery is a 59 yo woman who is 4 weeks s/p open Hartmanns reversal. She was noted to have a stenotic right ureter during ureteral stent placement at the beginning of the case andhad a double J stent placed by urology. She is seeing Dr. Lozano today for stent evaluation and removal. Discussed no heavy lifting, twisting, turning for 6 weeks total. Ok to stop wearing the binder at this point. Discussed that while I do not feel a hernia on exam today, her risk is incredibly high because of the large parastomal hernia with minimal fascia between the stoma site and the midline, her obesity, and her smoking. Discussed that if she gets a bothersome hernia, an operation would be considered but she would have to loose weight and quit smoking to have any meaningful chance of the hernia not recurring after a repair. No diet limitations. Apparently the floor nurse told her not to eat nuts, seeds, or berries because of her diverticular disease. I advised her that there is no data supporting this advice though it is frequently told to patients. If she has issues after eating any of these foods, she should avoid them, but if she has no problems when eating them, then it is fine for her to continue to eat them. Next colonoscopy in 10 years (2029) based on preop colonoscopy with no polyps. I again advised Jahaira to quit smoking but she notes things are just too stressful right now for her to quit. Advised her to work with her PCP when she is ready to quit. Miryam Wiley MD FACS hoop cutter Division of Colon and Rectal Surgery [facility] Pager [phone] documented in this encounter Plan of Treatment Upcoming Encounters Date Type Specialty Care Team Description 09/30/2021 Office Visit General Surgery Paloma Mota, COILER [facility] ER GENERAL SURGERY [place], [place] [address] (Wo rk) 09/30/2021 Office Visit Infectious Diseases Werner Harrell MD [facility] ER INFECTIOUS DISEA [place], [place] [address] (Wo rk) documented as of this encounter Visit Diagnoses Diagnosis Diverticulitis Diverticulitis of colon (without mention of hemorrhage) documented in this encounter Care Teams Manufacturer Relationship Specialty Start Date End Date Hanane Martinez MD PCP - General Internal Medicine 08/09/19 04/23/21 [address] [place] [phone] documented as of this encounter
--- OUTSIDE RECORDS SUMMARY | 2021-09-27 14:54 | XMS_ITS | Encounter Summary ---
:1960 Author Organization [facility] [place] [address] Care Team Providers Name Role Phone Hanane Martinez MD Primary Care Provider Encounter Details Date Type Department Care Team Description 04/24/2020 Ancillary Procedure [place] [address] Social History Tobacco Use Types Packs/Day [...] Office Visit General Surgery Paloma Mota, TAMMY [facility] MEDICAL [facility] ER GENERAL SURGERY [place], [place] [address] (Wo rk) 09/30/2021 Office Visit Infectious Diseases Werner Harrell MD [facility] ER INFECTIOUS DISEA [place], [place] [address] (Wo rk) documented as of this encounter Procedures Procedure Name Priority Date/Time Associated Diagnosis Comme nts REQUEST FOR 2ND STAT 04/24/2020 10:47 PM Resul ts for this READ CT ABDOMEN AND EST procedur e are in PELVIS the results section. documented in this encounter Results Request For 2nd Read CT Abdomen & [...] report, please contact e number below. ? Electronically signed by: Liborio Lea MD, [facility] ([phone]), at 04/25/2020 1:04 AM Narrative 04/25/2020 1:04 AM EST EXAMINATION: REQUEST [...] of the abdomen and pelvis performed at [facility] o n 04/24/2020 at 3:45 PM. Reinterpretation requested by the ordering provider, Dr. Jerod Frost. COMPARISON: CT abdomen pelvis 04/23/2019 FINDINGS: Lower [...] add comments as necessary): AP; [facility]; Date of exam [id number]; I believe a reint erpretation of this exam may alter care of Patient. Yes TECHNIQUE: Outside hospital contrast enhanced CT of the abdomen and pelvis performed at [facility] o n 04/24/2020 at 3:45 PM. Reinterpretation requested by the ordering provider, Dr. Jerod Frost. COMPARISON: CT abdomen pelvis 04/23/2019 FINDINGS: Lower [...] report, please contact th e number below. Electronically signed by: Liborio Lea MD, [facility] ([phone]), at 04/25/2020 1:04 AM Jerod Frost MD IMG OUTSIDE INTERPRETATION O RDERABLES documented in this encounter Visit Diagnoses Not on filedocumented in this encounter Care Teams Letterset Press Set Up Operator Relationship Specialty Start Date End Date Hanane Martinez MD PCP - General Internal Medicine 08/09/19 [address] [place] [phone] documented as of this encounter
--- OUTSIDE RECORDS SUMMARY | 2021-09-27 14:54 | XMS_ITS | Encounter Summary ---
:1960 Author Organization [facility] [place] [address] Care Team Providers Name Role Phone Hanane Martinez MD Primary Care Provider Encounter Details Date Type Department Care Team Description 09/22/2019 Telephone Urology Isaac Prado MD [facility] [place] [address] UROLOGY DEPT [phone] [place], [place] [address] (Wo rk) Social History Tobacco [...] this encounter Miscellaneous Notes Telephone Encounter - Isaac Prado MD - 09/22/2019 9:42 AM EDT [facility] called regarding Jahaira - urinary frequency. Explained this is likely due to right side ureteral stent and discussed measures to help reduce stent related symptoms: hydration, tylenol, flomax. She did not have issues with retention. Stent will be removed early October documented in this encounter Plan of Treatment Upcoming Encounters Date Type Specialty Care Team Description 09/30/2021 Office Visit General Surgery Paloma Mota, TAMMY [facility] ER GENERAL SURGERY [place], [place] [address] (Wo rk) 09/30/2021 Office Visit Infectious Diseases Werner Harrell MD [facility] ER INFECTIOUS DISEA [place], [place] [address] (Wo rk) documented as of this encounter Visit Diagnoses Not on filedocumented in this encounter Care Teams Sailboat Captain Relationship Specialty Start Date End Date Hanane Martinez MD PCP - General Internal Medicine 08/09/19 [address] [place] [address] documented as of this encounter
--- OUTSIDE RECORDS SUMMARY | 2021-09-27 14:54 | XMS_ITS | Encounter Summary ---
:1960 Author Organization [facility] [place] [address] Care Team Providers Name Role Phone Hanane Martinez MD Primary Care Provider Encounter Details Date Type Department Care Team Description 10/03/2019 Telephone General Surgery at [facility] Hanane Bright, [place] [address] Social History Tobacco Use Types Packs/Day [...] encounter Miscellaneous Notes Telephone Encounter - Hanane Bright RN - 10/03/2019 10:16 AM EDT Received vm from JOHN Hill nurse, who reports a problem with pt's ML incision. Pt is s/p Lucy's reversal on 09/14/19. Liz reports pt has pinkness and tenderness at one spot on her incision with a small amount of burdick drainage from that area between her shelley. VSS: 112/64, HR 78, RR 16, 98%, and 97 temp. Returned call to - she reports she feels fine. She states she cannot come to today as she has no transportation. She agrees to take a photo of her incision and send it via [facility] so we can take a look, and we'll go from there. documented in this encounter Plan of Treatment Upcoming Encounters Date Type Specialty Care Team Description 09/30/2021 Office Visit General Surgery Paloma Mota, PICK UP [facility] ER GENERAL SURGERY [place], [place] [address] (Wo rk) 09/30/2021 Office Visit Infectious Diseases Werner Harrell MD [facility] ER INFECTIOUS DISEA [place], [place] [address] (Wo rk) documented as of this encounter Visit Diagnoses Not on filedocumented in this encounter Care Teams Sleep Lab Technician Relationship Specialty Start Date End Date Hanane Martinez MD PCP - General Internal Medicine 08/09/19 [address] [place] [phone] documented as of this encounter
--- OUTSIDE RECORDS SUMMARY | 2021-09-27 14:54 | XMS_ITS | Encounter Summary ---
:1960 [place] [address] Care Team Providers Name Role Phone Hanane Martinez MD Primary Care Provider Reason for Visit Auth/Cert Specialty Diagnoses / Procedures Referred By Contact Refer red To Contact Diagnoses Incarcerated hernia sbo Procedures ER IPI Referral ID Status Reason Start Date Expiration Date Visits Requ ested Visits Authorized [id number] 1 1 Encounter Details Date Type Department Care Team Description 04/25/2020 Anesthesia Event Main Operating Room Donato Camacho MD [facility] [place] [address] [facility] Niles Wing MD [facility] [place] [address] [place] [address] Anesthesia Record Procedure Summary Procedure Name Responsible Anesthesia Start Anesthesia Stop Time Anesthesiologist Time @EXPLORATORY Donato Morales MD 04/25/20 0508 04/25/20 0 709 LAPAROTOMY, WITH/WITHOUT BIOPSY(S) (WRVU 12.54) (N/A Abdomen) Events Date Time Event Comment 04/25/2020 0501 0508 AN Verify 0508 Start 0508 An Start Data 0515 An Induction 0519 An Intubation 0540 Anesthesia Ready 0549 Procedure Start 0658 Extubation/LMA Out 0701 an stop data 0709 Recovery or ICU Handoff Patient care was transferred to the destination unit staff after review of the patient's medica l history, current anesthetic/surgi mary grace status and plan, according to the Provider Handoff Checklist. 0709 Stop Name Total fentaNYL 100 mcg IV Lidocaine 80 mg Propofol 180 mg Rocuronium 50 mg PHENYLephrine 80 mcg ePHEDrine 25 mg Ondansetron 8 mg Dexamethasone 8 mg Succinylcholine 80 mg piperacillin-tazobactam (Zosyn) 3.375 g vial attach to sodium chloride 0.9% 3.375 g 50 mL Mini-Bag Plus Albuterol Inhaler 2 puff Lactated Ringers 600 mL Agents Name O2 Air N2O Sevoflurane (et) Blood No blood administrations on file. Lines, Drains, and Airways Type Details Placement Removal Ureteral Catheter 09/14/19; 1400; right 09/14/19 1400 by 1 0637 by ureter; drainage bag to Shawna Hong RN Carbe e, Chelsea M, dependent drainage; 4.8 F RN Variable Contour VL ; 04/25/20; 0637 Incision 09/14/19; 1430; abdomen; 09/14/19 1430 by 0637 by vertical; MARY AND Shawna Hong RN Carbee, Chelsea M, PRIMAPORE; 04/25/20; 0637 RN External Catheter 09/18/19; 1700; LDA not 09/18/19 1700 by 04/25 0637 by present upon assessment; Elise Mack, Pattie Lance, 04/25/20; 0637 RN PIV 04/24/20; (HYDRO PLANT SITE MANAGER @ [facility]); 04/24/20 0000 by 1 1340 by median cubital vein Janel Bourgeois RN Metzler, Paul L, RN (antecubital fossa), right; 18 gauge; alarming on pump and leaking; lumen/catheter not patent, site care per policy/procedure, catheter/device intact; 04/26/20; 1340 ETT Mask Ventilation: Not 04/25/20 0524 by 04/25/20 0658 by Attempted (0); ETT Type: Chani Torers MD Ja ckson, Sarah F, MD Cuffed, Oral; ETT Size: 7 mm; Mac Blade: 3; Notes: Asleep, Pre-O2, RSI, Stylette; Attempts: 1; Laryngoscopy Grade: 1; ETT Placement Verified By: Auscultation, Capnometry, Visual; Secured at Teeth: 21 cm; Inserted by: isa Incision 04/25/20; 06; midline; 04/25/20 06 by [place], 08/12/21 2200 by lower quadrant; midline; GENA Morgan Jaimie L, ASHLYN from 04/25/21; LDA not RN present upon assessment; 08/12/21; 2200 Urethral Catheter 04/25/20; 0603; Abdominal 04/25/20 06 by Alina leon, 04/26/20 0800 by surgery; indwelling GENA Morgan Erica R, RN double lumen catheter; hydrophilic coated, latex; 14; 1; 5; 10; 04/26/20; 0800 NG/OG Tube 04/25/20; 0702; 04/25/20 0702 by 04/26/20 1155 b y nasogastric; right Rosario Leonard RN Davis, E rica R, RN nostril; 67 (at end of tape); Taped; not placed by this RN, placed by anesthesia in OR; Removed by MD; 04/26/20; 1155 documented in this encounter Social History Tobacco [...] encounter OR Notes Anesthesia Postprocedure Evaluation - Donato Morales MD - 04/25/2020 7:19 AM EST Department of Anesthesiology Post-procedure Note Patient: Jahaira Montgomery Procedure Summary Date: 04/25/20 Room / Location: [facility] OR [address] [place] [address] MAIN OR Anesthesia Start: 0508 Anesthesia Stop: 708 Procedures: @EXPLORATORY LAPAROTOMY, WITH/WITHOUT BIOPSY(S) (WRVU 12.54) (N/A Abdomen) HERNIA REPAIR, VENTRAL OR INCISIONAL, RECURRENT, INCARCERATED (WRVU 15.53) (N/A Abdomen) Diagnosis:(incarcerated hernia) Surgeons: Jerod Frost MD Responsible Provider: Donato Morales MD Anesthesia Type: general ASA Status: 2 All Anesthesia Providers: Anesthesiologist: Donato Morales MD SLEEVE SEPARATOR: Paul Loving CRNA Pressroom Supervisor: Chani Torres MD Vitals Value Taken Time BP 135/57 04/25/20 0715 Temp 36.5 ??C (97.7 ??F) 04/25/20 0704 Pulse 78 04/25/20 0718 Resp 12 04/25/20 0718 SpO2 94 % 04/25/20 0718 Pain Level Vitals shown include unvalidated device [...] performed was the same as planned.) Comments: Donato Morales MD Anesthesia Preprocedure Evaluation - Donato Morales MD - 04/25/2020 4:29 AM EST Pre-Anesthesia Evaluation for: Jahaira Montgomery a 59 y.o. female. Procedure(s): @EXPLORATORY LAPAROTOMY, WITH/WITHOUT BIOPSY(S) (WRVU 12.54) Patient Active Problem List Diagnosis ??? Incarcerated hernia ??? Ostomy nurse consultation Past Medical History: Diagnosis Date ??? Chronic [...] 27.9) performed by Miryam Wiley MD at [facility] MAIN OR ??? PRO COLONOSCOPY, DIAGNOSTIC N/A 08/18/2019 COLONOSCOPY, DIAGNOSTIC performed by Emigdio Lanier MD at [facility] ENDOSCOPY ??? PRO CYSTOSCOPY, INSERT URETERAL STENT Right 09/14/2019 CYSTO, STENT PLACEMENT INTRAOP, TEMPORARY (WRVU 2.82) performed by Werner Fournier MD at [facility] OR ??? PRO MOBILIZE SPLENIC FLEX N/A 09/14/2019 @MOBILIZATION OF SPLENIC FLEXURE (WRVU 2.23) performed by Miryam Wiley MD at [facility] OR ??? PRO OMENTAL FLAP, INTRA-ABDOMINAL 09/14/2019 @OMENTAL FLAP, INTRA-ABDOMINAL (WRVU 6.54) performed by Miryam Wiley MD at [facility] MAIN OR ??? PRO SIGMOIDOSCOPY, DIAGNOSTIC N/A 09/14/2019 SIGMOIDOSCOPY, FLEXIBLE W/WO SPECIMEN BY BRUSHING OR WASHING (WRVU 0.84) performed by Miryam Wiley MD at [facility] MAIN OR ??? TUBAL LIGATION [...] home medications have been reviewed. Physical Exam: Patient Vitals for the past 24 hrs: Temp Heart Rate From SP02 Pulse Resp BP SpO2 O2 Device 04/24/20 2210 36.7 ??C (98.1 ??F) -- 69 14 (!) 154/129 95 % RA 04/24/20 2215 -- 66 bpm 67 12 120/62 94 % -- 04/24/20 2230 -- 73 bpm 73 14 92/72 94 % -- 04/24/20 2245 -- 65 bpm 66 11 129/56 93 % -- 04/24/20 2300 -- 70 bpm 70 15 152/59 94 % -- 04/25/20 0000 -- 59 bpm 59 -- 135/56 97 % -- 04/25/20 0100 -- 61 bpm 61 -- 118/72 95 % -- 04/25/20 0200 -- 59 bpm 60 -- 101/58 90 % -- 04/25/20 0300 -- 74 bpm 74 -- 123/89 94 % -- 04/25/20 0400 -- 62 bpm 62 -- 122/65 92 % -- Body mass index is 33,549.27 kg/m??. Weight: 83.9 kg (185 lb) Airway Assessment: Mallampati: II TM distance: >3 FB Neck ROM: full Cardiovascular Assessment: Rhythm: regular Rate: normal Pulmonary Assessment: unlabored breathing Dental Assessment: - normal exam Misc Assessment: Patient is wearing No contact(s). IV access: Peripheral line Anesthesia Plan: ASA 2 general, with a(n) intravenous induction Jahaira Montgomery is a 59 y.o. 84 kg female presenting for ventral hernia repair for incarcerated hernia. Pt has a PMH of diverticulitis s/p Lucy's procedure and enterostomy closure now with incarcerated ventral hernia. She has been unable to hold down any food or drink in the last several days. ?? PMHx: also chronic knee pain Prior anesthetic hx: Tolerated previous anesthesia without issue. Previously easy mask, Gr 1 w Mac 3 Labs were reviewed Allergies: No Known Allergies NPO Status: Appropriate Anesthetic Plan: GA with ETT Standard ASA monitoring Adequate IV access Donato Morales MD PhD #[id number] Region - Other Informed Consent: Anesthetic plan and risks discussed with patient. Plan discussed with resident. PAT Clinic Note documented in this encounter Plan of Treatment Upcoming Encounters Date Type Specialty Care Team Description 09/30/2021 Office Visit General Surgery Paloma Mota, WASH HELPER [facility] GENERAL SURGERY [place], [place] [address] (Wo rk) 09/30/2021 Office Visit Infectious Diseases Werner Harrell MD [facility] INFECTIOUS [place], [place] [address] (Wo rk) documented as of this encounter Visit Diagnoses Not on filedocumented in this encounter Administered Medications Inactive Administered Medications - up to 3 most recent administrations Medication Order MAR Action Action Date Dose Rate Site albuteroL 90 mcg/actuation Given 04/25/2020 6:06 AM EST 2 puffs inhaler Inhalation, PRN, Starting on Thu04/25/20 at 0606, Until Thu04/25/20 at 0709, Anesthesia Intra-op, Routine dexamethasone (Decadron) injection Given 04/25/2020 5:24 AM EST 8 mg Intravenous, PRN, Starting on Thu04/25/20 at 0524, Until Thu04/25/20 at 0709, Anesthesia Intra-op, Routine ePHEDrine (pf) (5 mg/mL) multi-dose inje ction Given 04/25/2020 5:45 AM EST 5 mg Intravenous, PRN, Starting on Thu04/25/20 at 0525, Until Thu04/25/20 at 0709, Anesthesia Intra-op, Routine Given 04/25/2020 5:36 AM EST 5 mg Given 04/25/2020 5:30 AM EST 10 mg fentaNYL (pf) (50 mcg/mL) multi-dose Given 04/25/2020 6:45 AM ES T 25 mcg injection Intravenous, PRN, Starting on Thu04/25/20 at 0515, Until Thu04/25/20 at 0709, Anesthesia Intra-op, Routine Given 04/25/2020 5:49 AM EST 25 mcg Given 04/25/2020 5:15 AM EST 50 mcg lactated ringers infusion New Bag 04/25/2020 5:08 AM EST Intravenous, CONTINUOUS PRN, Starting on Thu04/25/20 at 0508, Until Thu04/25/20 at 0709, Anesthesia Intra-op lidocaine (pf) (Xylocaine) (20 mg/mL) 2% Given 04/25/2020 5:15 A M EST 80 mg injection syringe Intravenous, PRN, Starting on Thu04/25/20 at 0515, Until Thu04/25/20 at 0709, Anesthesia Intra-op, Routine ondansetron (pf) (Zofran) (2 mg/mL) inje ction Given 04/25/2020 6:36 AM EST 8 mg Intravenous, PRN, Starting on Thu04/25/20 at 0636, Until Thu04/25/20 at 0709, Anesthesia Intra-op, Routine PHENYLephrine in NS (PF) (WENDI-SYNEPHRINE) 0.8 Given 5:43 AM EST 80 mcg mg/10 mL (80 mcg/mL) multi-dose injection Syrg Intravenous, PRN, Starting on Thu04/25/20 at 0543, Until Thu04/25/20 at 0709, Anesthesia Intra-op, Routine piperacillin-tazobactam (Zosyn) New Bag 04/25/2020 10:46 [...] 3:34 AM EST 3.375 g 12.5 mL/hr propofoL (Diprivan) 10 mg/mL bolus injection Given 12/2020 5:15 AM EST 180 mg (Anesthesia) Intravenous, PRN, Starting on Thu04/25/20 at 0515, Until Thu04/25/20 at 0709, Anesthesia Intra-op rocuronium (Zemuron) (10 mg/mL) multi-dose Given 04/25/2020 5:49 AM EST 20 mg injection Intravenous, PRN, Starting on Thu04/25/20 at 0549, Until Thu04/25/20 at 0709, Anesthesia Intra-op, Routine Given 04/25/2020 5:33 AM EST 30 mg succinylcholine (Anectine;Quelicin) (20 mg/mL) Given 0 04/25/2020 5:15 AM EST 80 mg injection Intravenous, PRN, Starting on Thu04/25/20 at 0515, Until Thu04/25/20 at 0709, Anesthesia Intra-op, Routine documented in this encounter Care Teams Tour Bus Driver Relationship Specialty Start Date End Date Hanane Martinez MD PCP - General Internal Medicine 08/09/19 04/23/21 [address] [place] [address] documented as of this encounter
--- OUTSIDE RECORDS SUMMARY | 2021-09-27 14:54 | XMS_ITS | Encounter Summary ---
:1960 Author Organization [facility] Address [address] [place] [address] Care Team Providers Name Role Phone Hanane Martinez MD Primary Care Provider Encounter Details Date Type Department Care Team Description 12/06/2019 Hospital Encounter Ultrasound at [facility] [place], Encounter for [facility] David Sharpe MD removal of ureteral Drive [facility] [place], [place] CENTER [address] UROLOGY DEPT [phone] [place] [address] Social History Tobacco Use Types Packs/Day Years [...] Sig Dispensed Refills Start Date End Date acetaminophen (Tylenol Take 1 tablet by 30 tablet 0 020 09/19/2021 Extra Strength) 500 mg mouth every 6 hours Tablet as needed for Pain. ibuprofen (Advil;Motrin) Take 1 tablet by 30 tablet 0 09/1808/13/2021 600 mg Tablet mouth every 6 hours as needed for Pain. documented as of this encounter Plan of Treatment Upcoming Encounters Date Type Specialty Care Team Description 09/30/2021 Office Visit General Surgery Paloma Mota, PATIENT DAY COORDINATOR [facility] GENERAL SURGERY [place], [place] [address] (Wo rk) 09/30/2021 Office Visit Infectious Diseases Werner Harrell MD [facility] INFECTIOUS [place], [place] [address] (Wo rk) documented as of this encounter Procedures Procedure Name Priority Date/Time Associated Comments Diagnosis US RETROPERITONEAL Routine 12/06/2019 1:36 Encounter for Resul ts for this COMPLETE PM EDT removal of procedure are i n ureteral stent the results section. documented in this encounter Results US Retroperitoneal Complete (12/06/2019 1:36 PM EDT) Anatomical Region Laterality Modality Abdomen Ultrasound Specimen (Source) Anatomical Collection Method Collection Time Re ceived Time Location / / Volume Laterality 12/06/2019 1:23 PM EDT Impressions 12/06/2019 1:51 PM EDT 1. The right kidney is normal in echoge nicity and size without hydronephrosis or shadowing stone identified. 2. The urinary bladder is relatively de compressed, limited evaluation. 3. The left kidney is normal in echogen icity and size without hydronephrosis or shadowing stone identified. Thank you for letting us participate in the care of this patient. For questions regarding this report, please contact t he number below. Electronically signed by: Yehuda smith MD, [facility] ([phone]), at 1:43 PM ?Yehuda Joy, Staff Physician Electronically Signed Final Report ?? 01:50 pm Narrative 12/06/2019 1:51 PM EDT Renal ? (Signed Final 12/06/2019 01:50 pm) PATIENT INFO: ID #: ? [id number] ?: ??[birth year] (59 yrs)(F) Name: ? BILL MONTGOMERY ? Visit Date: 12/06/2019 01:23 pm PERFORMED BY: Performed By: ? Jose Wilson RDMS Attending: ?Rufino BAUMAN, Genevieve Scanlon Referred By: ?DAVID LOZANO Location: ? [place] SERVICE(S) PROVIDED: ??URETRO - Retroperitoneal Complete - I [id number] ? [id number] INDICATIONS: ??s/p ureteral stent removal COMPARISON: CT of 04/23/19. RIGHT KIDNEY: Size (cm) ?L: ??10.9 Cortical Thickness: ?Normal Cortical Echogenicity: ?? Normal Hydronephrosis: ?No sonogr aphic evidence LEFT KIDNEY: Size (cm) ?L: ??10.6 Cortical Thickness: ?Normal Cortical Echogenicity: ?? Normal Hydronephrosis: ?No sonogr aphic evidence URINARY BLADDER: Pre-void (cm) ? L: ??2.6 ? A P: ??3.5 ? TV: ??4.6 Vol (ml): ?21.9 Comment: ?Partially distended, norm al contour Procedure Note Yehuda Joy MD - 12/06/2019Format ting of this note might be different from the original. Renal (Signed Final 12/06/2019 01:50 pm ) PATIENT INFO: ID #: [id number] : [birth year] (59 y rs)(F) Name: BILL MONTGOMERY Visit Date: 12/06/19 01:23 pm PERFORMED BY: Performed By: Jaquelin Wilson RDMS Attending: Yehuda Joy MD Referred By: DAVID LOZANO Location: [place] SERVICE(S) PROVIDED: URETRO - Retroperitoneal Complete - [facility] [id number] INDICATIONS: s/p ureteral stent removal COMPARISON: CT of 04/23/19. RIGHT KIDNEY: Size (cm) L: 10.9 Cortical Thickness: Normal Cortical Echogenicity: Normal Hydronephrosis: No sonographic evidence LEFT KIDNEY: Size (cm) L: 10.6 Cortical Thickness: Normal Cortical Echogenicity: Normal Hydronephrosis: No sonographic evidence URINARY BLADDER: Pre-void (cm) L: 2.6 AP: 3.5 TV: 4.6 Vol (ml): 21.9 Comment: Partially distended, normal co ntour IMPRESSION 1. The right kidney is normal in echoge nicity and size without hydronephrosis or shadowing stone identified. 2. The urinary bladder is relatively de compressed, limited evaluation. 3. The left kidney is normal in echogen icity and size without hydronephrosis or shadowing stone identified. Thank you for letting us participate in the care of this patient. For questions regarding this report, please contact t he number below. Electronically signed by: Yehuda smith MD, [facility] ([phone]), at 1:43 PM Yehuda Joy, Staff Physician Electronically Signed Final Report 12/05 01:50 pm David Lozano MD [facility] GEN ORDERABLES documented in this encounter Visit Diagnoses Diagnosis Encounter for removal of ureteral stent documented in this encounter Care Teams Patient Care Associate Relationship Specialty Start Date End Date Hanane Martinez MD PCP - General Internal Medicine 08/09/19 04/23/21 [address] [place] [id number] documented as of this encounter
--- OUTSIDE RECORDS SUMMARY | 2021-09-27 14:54 | XMS_ITS | Encounter Summary ---
:1960 Author Organization [facility] [place] [address] Care Team Providers Name Role Phone Hanane Martinez MD Primary Care Provider Encounter Details Date Type Department Care Team Description 10/18/2019 Procedure visit Urology at [facility] David Lozano Encounter for removal [facility] MD Dell of ureteral stent [address] [facility] [id number] UROLOGY DEPT [phone] [place], [place] [address] Social History Tobacco Use Types [...] Sign Reading Time Taken Comments Blood Pressure 118/74 10/18/2019 11:11 AM EDT Pulse 70 10/18/2019 11:11 AM EDT Temperature - - Respiratory Rate - - Oxygen Saturation - - Inhaled Oxygen Concentration - - Weight - - Height - - Body Mass Index - - documented in this encounter Patient Instructions Patient InstructionsViviana Haynes RN - 10/18/2019 10:20 AM EDT Instructions following Cystoscopy/Stent Removal Activity: As tolerated by your comfort level. Fluids: You should increase your water today. Avoid coffee, tea and cola. You do not need to exceed 64 ounces of water today. Urination: You will likely have a small amount of blood in your urine for the next several days. This is normal; however, if you are passing large amounts of blood clots or are unable to void please call our office at [phone] before 5PM or [phone] after hours. Please call if: * you have copious blood in your urine * fevers greater than 101.3 F * you are unable to void The number for questions is [phone] before 5 PM weekdays and [phone] after 5 PM and weekends. Follow-up: In 6-8 weeks with an ultrasound and follow-up appointment with Dr. Fournier. documented in this encounter Progress Notes David Lozano MD - 10/18/2019 10:20 AM EDT Ms. Montgomery underwent successful RIGHT JJ stent removal. Plan for her to RTC in 6-[address] Fournier with renal ulrasound. DAVID LOZANO MD 10/18/2019 documented in this encounter Procedure Notes David Lozano MD - 10/18/2019 10:20 AM EDTAssociated Order(s): CYSTO, STENT REMOVAL Pre-Procedure Diagnose(s): Encounter for removal of ureteral stent Cystoscopy Preoperative Diagnosis: Encounter Diagnoses Name Primary? Encounter for removal of ureteral stent From Dr. Fournier's OR note from about a month ago: Normal cystosocpy Left side 5F open ended [...] J ureteral stent placed on right side. Postoperative Diagnosis: Same Procedure/Operation Performed: Cystoscopy Attending Surgeon: DAVID LOZANO MD Resident Surgeon: Bertha Anesthesia: Xylocaine jelly Pre-Medication: Cipro Preparation: None Indications for Procedure: This 59 y.o. female presents with the diagnosis / diagnoses listed above.The procedure was described in detail to the patient. The risks, benefits, and alternatives were thoroughly discussed. The patient wished to proceed with the recommended procedure. Written informed consent was obtained and is documented in the chart. Time Out: A time-out was completed verifying correct patient, procedure, site, positioning, and implant(s) and/or special equipment prior to beginning this procedure. Procedure and Findings: The patient was prepped and draped in the usual manner in the supine frog legged position. Cystoscopy was carried out using the flexible cystoscope. The urethra was normal. The bladder mucosa was normal. The ureteral orifices were normal. Additional findings: RIGHT stent grasped with a grasper and removed in its entirety. Estimated Blood Loss: None Complications: None Impression: Successful RIGHT JJ stent removal. Plan for her to RTC in 6-[address] Fournier [facility]. documented in this encounter Plan of Treatment Upcoming Encounters Date Type Specialty Care Team Description 09/30/2021 Office Visit General Surgery Paloma Mota, TAMMY [facility] GENERAL SURGERY [place], [place] [address] (Wo alexander) 09/30/2021 Office Visit Infectious Diseases Werner Harrell MD [facility] INFECTIOUS DISEA [place], [place] [address] (Rekha munoz) documented as of this encounter Procedures Procedure Name Priority Date/Time Associated Diagnosis Comme nts CYSTO, STENT Routine 10/18/2019 10:20 AM Encounter for Results for this REMOVAL EDT removal of ureteral procedur e are in stent the results section. documented in this [...] below. Electronically signed by: Yehuda smith MD, [facility] ([phone]), at 1:43 PM ?Yehuda Joy, Staff Physician Electronically Signed Final Report ?? 01:50 pm Narrative 12/06/2019 1:51 PM EDT Renal ? (Signed Final 12/06/2019 01:50 pm) PATIENT INFO: ID #: ? [id number] ?: ??[birth year] (59 yrs)(F) Name: ? JAHAIRA MONTGOMERY ? Visit Date: 12/06/2019 01:23 pm PERFORMED BY: Performed By: ? Jose Wilson RDMS Attending: ?Rufino BAUMAN, Genevieve Scanlon Referred By: ?DAVID LOZANO Location: ? [place] SERVICE(S) PROVIDED: ??URETRO - Retroperitoneal Complete - I [id number] ? [id number] INDICATIONS: ??s/p ureteral stent removal COMPARISON: CT [...] 01:50 pm ) PATIENT INFO: ID #: [id number] : [birth year] (59 y rs)(F) Name: JAHAIRA MONTGOMERY Visit Date: 12/06/19 01:23 pm PERFORMED BY: Performed By: Jaquelin Wilson RDMS Attending: Yehuda Joy MD Referred By: DAVID LOZANO Location: [place] SERVICE(S) PROVIDED: URETRO - Retroperitoneal Complete - [facility] [place] [address]17 [id number] INDICATIONS: s/p ureteral stent removal COMPARISON: CT [...] questions regarding this report, please contact t janusz number below. Electronically signed by: Yehuda smith MD, Radiology [place] ([phone]), at 1:43 PM Yehuda Joy, Staff Physician Electronically Signed Final Report 12/05 01:50 pm David Lozano MD IM US GEN ORDERABLES Cysto, Stent Removal, clinic (10/18/2019 10:20 AM EDT) Narrative David Lozano MD - 10/18/2019 10: 20 AM EDT David Lozano MD ? 10/18/2019 11:54 AM Cystoscopy Preoperative Diagnosis: Encounter Diagno ses Name Primary? ? ? Encounter for removal of ureteral stent ?? From Dr. Fournier's OR note from about a m onth ago: Normal cystosocpy Left side 5F open ended ureteral cathete r placed without difficulty Right side ureteral kink seen on retrogr manjula, likely related some degree of ureteral fixation in the retro peritoneum. Given that, a 5 Fr Pollack could not be manipulated through the area of stricture, there was some minor trauma and periureteral contrast extravasation a decision was ma de to place a 4.8F double J ureteral stent placed on right side. Postoperative Diagnosis: Same Procedure/Operation Performed: Cystoscop y Attending Surgeon: Ki ROA Resident Surgeon: Bertha Anesthesia: Xylocaine jelly Pre-Medication: Cipro Preparation: None Indications for Procedure: This 59 y.o. female presents with the diagnosis / diagnoses listed above. The procedure was described in detail to the patient. ??The risks, b enefits, and alternatives were thoroughly discussed. The patient w ished to proceed with the recommended procedure. ??Written informe d consent was obtained and is documented in the chart. Time Out: A time-out was completed verif prieto correct patient, procedure, site, positioning, and implan t(s) and/or special equipment prior to beginning this proced ure. Procedure and Findings: The patient was prepped and draped in the usual manner in the supine frog legged p osition. Cystoscopy was carried out using the flexible cystoscop e. The urethra was normal. The bladder mucosa was normal. The ureteral orifices were normal. Additional findings: RIGHT stent grasped with a grasper and removed in its entirety. Estimated Blood Loss: None Complications: None Impression: Successful RIGHT JJ stent re moval. Plan for her to RTC in 6-[address] Fournier with re nal ulrasound. David Lozano MD UROLOGY ORDERABLES documented in this encounter Visit Diagnoses Diagnosis Encounter for removal of ureteral stent Encounter for removal of ureteral stent documented in this encounter Care Teams Sharepoint Solutions Developer Relationship Specialty Start Date End Date Hanane Martinez MD PCP - General Internal Medicine 08/09/19 [address] [place] [phone] documented as of this encounter
--- OUTSIDE RECORDS SUMMARY | 2021-09-27 14:54 | XMS_ITS | Encounter Summary ---
:1960 Author Organization [facility] [place] [address] Care Team Providers Name Role Phone Hanane Martinez MD Primary Care Provider Encounter Details Date Type Department Care Team Description 02/05/2021 Ancillary Procedure Radiology Library at Lisbet Martinez [facility] [address] [place] [phone] (Wo rk) Social History Tobacco Use Types [...] 09/30/2021 Office Visit General Surgery Paloma Mota, LEVEL [employer] GRINDER [facility] ER GENERAL SURGERY [place], [place] [address] (Wo rk) 09/30/2021 Office Visit Infectious Diseases Werner Harrell MD [facility] ER [address] [place], [place] [address] (Wo rk) documented as of this encounter Procedures Procedure Name Priority Date/Time Associated Diagnosis Comme nts FILM LIBRARY Routine 02/05/2021 12:56 PM Results for this STORAGE ONLY CT EST procedure ar e in ABDOMEN AND PELVIS the resul ts section. documented in this encounter Results Film Library- Storage Only CT Abdomen & Pelvis (02/05/2021 12:56 PM EST) Specimen (Source) Anatomical Location Collection Method / Collectio n Time Received Time / Laterality Volume Narrative RAD - 02/05/2021 12:56 PM EST This exam is auto-finalizing. It's purpo se is for storage only. Hanane Martinez MD IMG FILM LIBRARY ORDERABLES Performing Organization Address City/State/ZIP Code Phon e Number [place], [place] documented in this encounter Visit Diagnoses Not on filedocumented in this encounter Care Teams Veterinary Nurse Relationship Specialty Start Date End Date Hanane Martinez MD PCP - General Internal Medicine 08/09/19 [address] [place] [phone] documented as of this encounter
--- OUTSIDE RECORDS SUMMARY | 2021-09-27 14:55 | XMS_ITS | Encounter Summary ---
:1960 Author Organization [facility] [place] [address] Care Team Providers Name Role Phone Hanane Martinez MD Primary Care Provider Encounter Details Date Type Department Care Team Description 09/06/2019 Clinical Support Same Day at [facility] [place] [address] Social History Tobacco Use Types Packs/Day [...] documented as of this encounter Progress Notes Nita Mahajan RN - 09/06/2019 11:15 AM EDT PAT questionnaire reviewed with patient while in Pre Admission Testing. Pre- operative instruction booklet reviewed. Patient verbalizes a good understanding of all information reviewed. PLAN: Testing: Labs Special medication instructions: Procedure date: 09/13 documented in this encounter Plan of Treatment Upcoming Encounters Date Type Specialty Care Team Description 09/30/2021 Office Visit General Surgery Paloma Mota, FIELD RE[facility] GENERAL SURGERY [place], [place] [address] (Wo rk) 09/30/2021 Office Visit Infectious Diseases Werner Harrell MD [facility] INFECTIOUS DISEA [place], [place] [address] (Wo rk) documented as of this encounter Visit Diagnoses Not on filedocumented in this encounter Care Teams Fighter Pilot Relationship Specialty Start Date End Date Hanane Martinez MD PCP - General Internal Medicine 08/09/[address] [place] [phone] documented as of this encounter
--- OUTSIDE RECORDS SUMMARY | 2021-09-27 14:55 | XMS_ITS | Encounter Summary ---
:1960 Author Organization [facility] [place] [address] Care Team Providers Name Role Phone Unavailable Primary Care Provider Unavailable Reason for Referral Consultation (Routine) - Closed Specialty Diagnoses / Procedures Referred By Contact Refer red To Contact Gastroenterology Diagnoses Diverticulitis of large intestine with perforation without bleeding Miryam Wiley MD [facility] Endoscopy [address] [facility] [place] [address] [place] [address] Referral ID Status Reason Start Date Expiration Date Visits V isits Requested Authorized [id number] Closed Consult, 07/26/2019 07/25/2020 1 1 Test & Treat Reason for Visit Consultation (Routine) - Specialty Diagnoses / Procedures Referred By Contact Refer red To Contact General Surgery Diagnoses Colostomy in place Diverticulitis ? COLOSTOMY REVERSAL Colt Jiang MD [facility] 4l Procedures ? COLOSTOMY REVERSAL CONSTANTINE [id number] [place] [phone] Fax: Referral ID Status Reason Start Date Expiration Date Visits V isits Requested Authorized [id number] 05/12/2019 05/11/2020 1 1 Encounter Details Date Type Department Care Team Description 07/26/2019 Office Visit General Surgery at Miryam Wiley Dive rticulitis of large [facility] [place] [facility] perforati on without Drive [address] DR jarocho Bhakta, [place] GENERAL SURGERY [address] [place] [address] [phone] Social History Tobacco Use Types Packs/Day Years Used Date Current Every Day Smoker Alcohol Habits Answer Date Recorded How often do you have a drink containing alcohol? Never 08/18/2019 How many drinks containing alcohol do you have on a typical Not asked day when you are drinking? How often do you have six or more drinks on one occasion? No t asked Comment: Not asked Sex Assigned at Date Recorded Not on file documented as of this encounter Last Filed Vital Signs Vital Sign Reading Time Taken Comments Blood Pressure 157/93 07/26/2019 1:09 PM EDT Pulse 82 07/26/2019 1:09 PM EDT Temperature 36.8 ??C (98.2 ??F) 07/26/2019 1:09 PM EDT Respiratory Rate 18 07/26/2019 1:09 PM EDT Oxygen Saturation 98% 07/26/2019 1:09 PM EDT Inhaled Oxygen Concentration - - Weight 90.7 kg (200 lb) 07/26/2019 1:09 PM EDT Height 151.6 cm (4' 11.7) 07/26/2019 1:09 PM EDT Body Mass Index 39.45 07/26/2019 1:09 PM EDT documented in this encounter Progress Notes Miryam Wiley MD - 07/26/2019 1:00 PM EDT Colorectal Surgery Outpatient Consultation ~ Division of Colon and Rectal Surgery ~ [facility] HPI: Jahaira Montgomery is a pleasant 59 y.o. female who we were asked to see by Dr. Jiang regarding No chief complaint on file. . The patient's PCP is Abhinav Agarwal MD. Jahaira developed abdominal pain in February 2019. She was initially treated at home with PO abx. Painworsened and she was admitted Mar 16. Her pain progressively worsened on IV antibiotics and she was taken for a Lucy's procedure on Mar 19, 2019. Op note describes purulent and feculent peritonitis. H ad wound vac - midline wound now healed. Her sister in law helps care for her stoma. Has had issues with leaks, skin cracking. Sometimes changes the appliance 4 times in one week. Other times, can go 5days with no issues. She is now following with a different surgeon than the one who did her surgery. She reports she was advised that she still cannot lift more than 25 pounds. This has limited her ability to play with alexandria which is very frustrating for her. She also has not returned to work as she reports she was told she is high risk for COVID because of the colostomy. 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 She smokes 1/2 pack per day down form 1.5 packs per day. She has a history of constipation - BMs every other day. Reports needing to take stool softeners and miralax with her colostomy or she won't have any stool out for 3 days and develops abdominal pain. No Family hx CRCA. She has never had a colonoscopy Review of Systems Constitutional: Negative for fever, weight loss and chills. Respiratory: Negative for cough and shortness of breath. Genitourinary: Negative for stress incontinence and urge incontinence. Gastrointestinal: Positive for constipation. Negative for abdominal discomfort, vomiting and nausea. Psychiatric/Behavioral: Negative for depression and physiological symptoms of anxiety. Hematologic/Lymphatic: Negative for easy bleeding. Does not bruise/bleed easily. Allergic/Immunologic: Negative for immunocompromised state. Musculoskeletal: Negative for joint pain. Cardiovascular: Negative for leg edema. Skin: Negative for raised rash (skin around stoma currently very good). Past medical history: Past Medical History: Diagnosis Date ??? Diverticulitis Past surgical history: Past Surgical History: Procedure Laterality Date ??? HERNIA REPAIR open umbilical x2 ??? HYSTERECTOMY ??? TUBAL LIGATION Allergies: Patient has no known allergies. Medications: reviewed in the electronic medical record. Current Outpatient Medications on File Prior to Visit Medication Sig Dispense Refill ??? docusate sodium (Colace) 100 mg Capsule Take 100 mg by mouth 2 times daily. ??? polyethylene glycol 3350 (MIRALAX ORAL) Take by mouth. No current facility-administered medications on file prior to visit. Social history: reports that she has been smoking. She does not have any smokeless tobacco history on file. Family medical history: Family History Problem Relation Age of Onset ??? Cancer Father pancreas Patient denies a family history of: colorectal cancer, colorectal polyps, diverticular disease, Crohn disease and ulcerative colitis. Patient admits a family history of: none. Physical exam: Vitals:Blood pressure (!) 157/93, pulse 82, temperature 36.8 ??C (98.2 ??F), resp. rate 18, height 151.6 cm (4' 11.7), weight 90.7 kg (200 lb), SpO2 98 %.@BMI BMI: Body mass index is 39.45 kg/m??. General Appearance: NAD, obese Neuro: Normal gait Psych: Normal affect Eyes: EOMI ENT: MMM CV: NSR Resp: CTAB Lymph: No cervical LAD GI Abdomen: Soft NT ND. Obese. Well healed midline wound. Left sided colostomy pink. Just above skinlevel. No peristomal skin irritation. 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 Ext: No LE edema Labs: reviewed. Path: reviewed - from Mar 19 operation - diverticular disease. Imaging: reviewed. Impression/Plan: Jahaira Montgomery is a 59 yo woman with a history of Lucy's procedure Mar 2019 for perforated diverticulitis. Desires colostomy reversal. Needs colonoscopy to evaluate remainder of colon including the rectal stump for polyps, cancers - referral placed Proceed with Lucy's reversal once the colonoscopy is complete - likely early September. Discussed possible need for ileostomy, possible leaks. Discussed that from my perspective she does not have lifting restrictions and it is ok to lift her grandson. Discussed that her colostomy would not make her at increased risk for COVID and that she could return to work. Recommended smoking cessation - she reports she cannot quit now due to the stresses in her life. We did discuss the possible surgical complications related to smoking and that smokingis likely her bigger risk factor for COVID. I advised her to speak with the doctors who gave her these recommendations regarding any paperwork that she needs filled out. We did discuss that there wouldbe lifting restrictions of 15 pounds for 6 weeks following Lucy's reversal. Return for preop appointment after colonoscopy. Miryam Wiley MD environmental health technologist Division of Colon and Rectal Surgery [facility] Pager [phone] documented in this encounter Plan of Treatment Upcoming Encounters Date Type Specialty Care Team Description 09/30/2021 Office Visit General Surgery Paloma Mota, [facility] ER GENERAL SURGERY [place], [place] [address] (Wo rk) 09/30/2021 Office Visit Infectious Diseases Werner Harrell MD [facility] ER INFECTIOUS DISEA [place], [place] [address] (Wo rk) Scheduled Referrals Name Type Priority Associated Diagnoses Order S chedule Referral to Outpatient Routine Diverticulitis of Ordered: Gastroenterology Referral large intestine with 02/2020 perforation without bleeding documented as of this encounter Visit Diagnoses Diagnosis Diverticulitis of large intestine with p erforation without bleeding documented in this encounter
--- OUTSIDE RECORDS SUMMARY | 2021-09-27 14:55 | XMS_ITS | Encounter Summary ---
:1960 Author Organization [facility] [place] [address] Care Team Providers Name Role Phone Hanane Martinez MD Primary Care Provider Reason for Visit Reason Comments Follow-up attention to colostomy Encounter Details Date Type Department Care Team Description 09/06/2019 Office Visit General Surgery at [facility] [place] [phone] Social History Tobacco Use Types Packs/Day [...] documented as of this encounter Progress Notes Batsheva Torres, RN - 09/06/2019 9:00 AM EDT watch and clock repairer Consult note - pt RTC to discuss reversal surgery with Dr. Miryam Wiley and the watch and clock repairer. She is s/p Lucy's procedure with an end colostomy secondary to perforated diverticulitis on 03/19/2019 at [facility]. Jahaira is here today with her brother Solomon. She has been staying at his house and he assists with her pouch changes. The Coloplast Convex Flip pouch that I gave her to trail during her lastclinic visit did not work; it just ripped my skin off. She continues to use a Coloplast #[id number] pouch with an adapt ring and gets anywhere from 3-5 days of wear time out of each pouch. Her stoma continues to be red & viable, round ~1; and her peristomal skin is healthy & intact today. After a discussion with Dr. Wiley, there is a possibility Jahaira may need a DLI. I reviewed A&P,surgical procedure and general care of and lifestyle with an ileostomy. I discussed the differences between a colostomy and an ileostomy. I reviewed the post-op ileostomy instructions including diet modifications, ORS instructions, I/O measurement instructions & high output instructions. I reassured her she could continue with the activities she enjoys. Told her that she would probably be able tocontinue using the Coloplast #[id number] pouch post-op if needed. She gets her ostomy supplies from [facility]. Jahaira continues to dislike her stoma, mainly because she has developed a parastomal hernia and because her current stoma is right at the level of her pant waistband. I stoma sited pt, after assuming sitting and standing positions, in the RUQ; almost a mirror image of her current colostomy, but ~1 inchhigher. I darkened the site and covered with Tegaderm dressing and stressed the importance of maintaining the site until date of surgery. I gave them extra Tegaderm dressings to take home. I answered all of their questions to the best of my ability. Will follow post-op if needed. Enc them to call if any questions, concerns, and/or issues came up prior to her reversal surgery on 09/13. documented in this encounter Plan of Treatment Upcoming Encounters Date Type Specialty Care Team Description 09/30/2021 Office Visit General Surgery Paloma Mota, TAMMY [facility] GENERAL SURGERY [place], [place] [address] (Rekha munoz) 09/30/2021 Office Visit Infectious Diseases Werner Harrell MD [facility] INFECTIOUS [place], [place] [address] (Wo rk) documented as of this encounter Visit Diagnoses Diagnosis Attention to colostomy documented in this encounter Care Teams Hospital Technician Relationship Specialty Start Date End Date Hanane Martinez MD PCP - General Internal Medicine 08/09/19 [address] [place] [address] documented as of this encounter
--- OUTSIDE RECORDS SUMMARY | 2021-09-27 14:55 | XMS_ITS | Encounter Summary ---
:1960 Author Organization [facility] Address [address] [place] [address] Care Team Providers Name Role Phone Hanane Martienz MD Primary Care Provider Encounter Details Date Type Department Care Team Description 09/06/2019 Laboratory Lab at [facility] Diverticulitis of large Appointment [facility] intestine with Drive perforation [place] bleeding [id number] Social History Tobacco Use Types Packs/Day Years [...] Office Visit General Surgery Paloma Mota, [facility] ER GENERAL SURGERY [place], [place] [address] (Wo rk) 09/30/2021 Office Visit Infectious Diseases Werner Harrell MD [facility] ER INFECTIOUS DISEA [place], [place] [address] (Wo rk) documented as of this encounter Procedures Procedure Name Priority Date/Time Associated Diagnosis Comme nts ABORH RECHECK STATUS Routine 09/06/2019 11:48 Res ults for this AM EDT procedure are i n the results section. SCAN, PERIPHERAL Routine 09/06/2019 11:48 Results for this BLOOD AM EDT procedure are i n the results section. HEMOGRAM Routine 09/06/2019 11:48 Diverticulitis of Result s for this AM EDT large intestine with procedu re are in perforation without the resu lts bleeding section. DIFFERENTIAL, Routine 09/06/2019 11:48 Diverticulitis of Resul ts for this AUTOMATED AM EDT large intestine with procedu re are in perforation without the resu lts bleeding section. HC ANTIBODY Routine 09/06/2019 11:48 Diverticulitis of DETECTION,CAPTURE-R AM EDT large intestine with perforation without bleeding ABO/RH TYPING Routine 09/06/2019 11:48 Diverticulitis of Resul ts for this AM EDT large intestine with procedu re are in perforation without the resu lts bleeding section. HC VENIPUNCTURE Routine 09/06/2019 11:48 Diverticulitis of AM EDT large intestine with perforation without bleeding ANTIBODY SCREEN Routine 09/06/2019 11:48 Diverticulitis of Res ults for this AM EDT large intestine with procedu re are in perforation without the resu lts bleeding section. HEPATIC FUNCTION Routine 09/06/2019 11:48 Diverticulitis of Re sults for this PANEL AM EDT large intestine with procedu re are in perforation without the resu lts bleeding section. BASIC METABOLIC Routine 09/06/2019 11:48 Diverticulitis of Res ults for this PANEL (NON-FASTING) AM EDT large intestine with procedure are in perforation without the resu lts bleeding section. documented in this encounter Results ABORH Recheck Status (09/06/2019 11:48 AM EDT) [facility] Method Time Signature ABORH Recheck Order Placed [facility] LABORATORY ABORH Type Complete [facility] LABORATORY Specimen Anatomical Collection Method Collection Time Receive d Time (Source) Location / / Volume Laterality Blood specimen 09/06/2019 11:48 0 (specimen) AM EDT 11:55 AM EDT Resulting Agency Comment Spec In Lab Miryam Wiley MD BLOOD BANK ORDERABLES Performing Organization Address City/State/[place] [address] Scan, Peripheral Blood (09/06/2019 11:48 AM EDT) P athologist Signature Plat Estimate Normal [facility] RBC Morphology Normal [facility] Specimen Anatomical Collection Method Collection Time Receive d Time (Source) Location / / Volume Laterality Blood specimen 09/06/2019 11:48 0 (specimen) AM EDT 11:57 AM EDT Resulting Agency Comment Spec In Lab Miryam Wiley MD HEMATOLOGY ORDERABLES Performing Organization Address City/State/[place] [address] Antibody screen (09/06/2019 11:48 AM EDT) Patholo gist Method Time Signature Ab Screen Negative [facility] LABORATORY Expires at 09/17/2019 [facility] 235 on: [facility] Comment: Corrected from 09/26/19 0:00:00 EDT [Unk nown] on 09/09/19 15:22:44 EDT by Agustina Jones Specimen Anatomical Collection Method Collection Time Receive d Time (Source) Location / / Volume Laterality Blood specimen 09/06/2019 11:48 0 (specimen) AM EDT 11:55 AM EDT Resulting Agency Comment Spec In Lab Miryam Wiley MD BLOOD BANK ORDERABLES Performing Organization Address City/State/[place] [address] ABO/Rh Typing (09/06/2019 11:48 AM EDT) P athologist Signature ABORh Type O Pos [facility] Specimen Anatomical Collection Method Collection Time Receive d Time (Source) Location / / Volume Laterality Blood specimen 09/06/2019 11:48 0 (specimen) AM EDT 11:55 AM EDT Resulting Agency Comment Spec In Lab Miryam Wiley MD BLOOD BANK ORDERABLES Performing Organization Address City/State/ZIP Code Phon e Number [place] [id number]OS[address] LAB[address]ORY [address] (ABNORMAL) Differential, Automated (09/06/2019 11:48 AM EDT) [facility] Method Time Signature Neutrophils % 53.7 % [facility] Neutr Abs (ANC) 6.39 (H) 1.70 - [facility] [address] [facility] x10(3)/[facility] LABORATORY Lymphocytes % 36.3 % [facility] Lymphocytes Abs 4.3 (H) 0.9 - 3.2 [facility] x10(3)/[facility] LABORATORY Monocytes % 6.2 % [facility] Monocyte Abs 0.7 0.3 - 0.9 [facility] x10(3)/[facility] LABORATORY Eosinophils % 2.5 % [facility] Eosinophils Abs 0.3 0.0 - 0.4 [facility] x10(3)/[facility] LABORATORY Basophils % 0.8 % [facility] Basophils Abs 0.1 0.0 - 0.1 [facility] x10(3)/[facility] LABORATORY Immature Gran % 0.50 % [...] Gran Abs 0.06 (H) 0.00 - 0.04 x10(3)/[facility] LABORATORY Specimen Anatomical Collection Method Collection Time Receive d Time (Source) Location / / Volume Laterality Blood specimen 09/06/2019 11:48 0 (specimen) AM EDT 11:57 AM EDT Resulting Agency Comment Spec In Lab Miryam Wiley MD HEMATOLOGY ORDERABLES Performing Organization Address City/State/ZIP Code Phon e Number [place] [id number]OS[address] LAB[address]ORY Drive (ABNORMAL) Hemogram (09/06/2019 11:48 AM EDT) Analysis Performed At Patho logist Time Signature WBC 11.9 (H) 4.0 - 9.5 [facility] x10(3)/[facility] LABORATORY RBC 4.80 4.00 - [place] NAVEEN [address] [facility] x10(6)/[facility] LABORATORY Hemoglobin 14.9 11.7 - [facility] 15.5 gm/dL [facility] LABORATORY Hematocrit 46.5 (H) 35.7 - [facility] 45.8 % [facility] LABORATORY MCV 96.9 (H) 82.6 - [facility] 94.4 [facility] LABORATORY MCH 31.0 27.1 - [facility] NAVEEN 32.0 pg [facility] LABORATORY MCHC 32.0 31.7 - [facility] 35.0 gm/dL [facility] LABORATORY Platelets 295 145 - 357 [facility] x10(3)/[facility] LABORATORY RDWSD 45.6 37.0 - [facility] 46.0 [facility] LABORATORY RDWCV 12.7 11.[address] [facility] 14.1 % [facility] LABORATORY MPV 9.4 7.6 - 12.9 [facility] LABORATORY nRBC % Auto 0.0 % [facility] nRBC Abs Auto 0.000 0.000 - [facility] 0.[address] [facility] x10(3)/[facility] LABORATORY Specimen Anatomical Collection Method Collection Time Receive d Time (Source) Location / / Volume Laterality Blood specimen 09/06/2019 11:48 0 (specimen) AM EDT 11:57 AM EDT Resulting Agency Comment Spec In Lab Miryam Wiley MD HEMATOLOGY ORDERABLES Performing Organization Address City/State/[place] [address] (ABNORMAL) Basic Metabolic Panel (non-fasting) (09/06/2019 11:48 AM EDT) P athologist Signature Glucose Lvl 114 65 - 199 [facility] mg/dL [facility] LABORATORY Comment: Diabetes: >=200 mg/dL plus symp toms BUN 16 8 - 18 mg/dL [facility] LABOR[facility]ORY Creatinine 0.62 (L) 0.70 - 1.20 mg/dL [facility] LABOR[facility] Sodium 141 135 - 145 mmol/L [facility] LABOR[facility]ORY Potassium 4.2 3.5 - 5.0 mmol/L [facility] LABORATORY Comment: Please note: ??Patients with WBC >100,00 0 may have falsely elevated Potassium levels. ??For accurate Potassium quantif ication in these patients send serum separator tube (gold top) for subsequent determinations. ??Contact the Clinical Chemistry Laboratory if there are any qu estions. Chloride 103 98 - 107 mmol/L [facility] CO2 27 22 - 31 mmol/L [facility] Anion Gap 11 5 - 15 mmol/L [facility] LABOR[facility] Calcium 9.1 8.5 - 10.5 mg/dL [facility] LABORATORY Estimated GFR 100 >=60 mL/min/1.73 m?? [facility] Comment: The eGFR was calculated using the CKD-EP I equation. As with all creatinine based estimates of kidney function, eGFR values calculated with the CKD-EPI equation are not accurate in patients wi th acute kidney failure, extremes of body mass or the acutely ill. http://[email or web address]/[facility] eGFR 116 >=60 mL/min/1.73 m?? [facility] Comment: The eGFR was calculated using the CKD-EP I equation. As with all creatinine based estimates of kidney function, eGFR values calculated with the CKD-EPI equation are not accurate in patients wi th acute kidney failure, extremes of body mass or the acutely ill. http://[email or web address]/[facility] Specimen Anatomical Collection Method Collection Time Receive d Time (Source) Location / / Volume Laterality Blood specimen 09/06/2019 11:48 0 (specimen) AM EDT 11:57 AM EDT Resulting Agency Comment Spec In Lab Miryam Wiley MD CHEMISTRY ORDERABLES Performing Organization Address City/State/ZIP Code Phon e Number [place] [phone]OSP[address] LAB[address]ORY Drive Hepatic Function Panel (09/06/2019 11:48 AM EDT) athologist Signature Total Protein 6.9 6.1 - 8.0 [facility] gm/dL [facility] Albumin 4.0 3.2 - 5.2 [facility] AST 15 0 - [address] [facility] unit/L [facility] ALT 13 0 - [facility] unit/L [facility] LAB[facility] Alk Phos 102 35 - 105 [facility] unit/L [facility] Total 0.2 0.2 - 1.3 [facility] Bilirubin mg/dL [facility] Comment: rechecked-ds Bili, Direct <0.1 0.0 - 0.3 mg/dL [facility] LABORATORY Specimen Anatomical Collection Method Collection Time Receive d Time (Source) Location / / Volume Laterality Blood specimen 09/06/2019 11:48 0 (specimen) AM EDT 11:57 AM EDT Resulting Agency Comment Spec In Lab Miryam Wiley MD CHEMISTRY ORDERABLES Performing Organization Address City/State/[place] [address] documented in this encounter Visit Diagnoses Diagnosis Diverticulitis of large intestine with p erforation without bleeding documented in this encounter Care Teams Infrastructure Project Manager Relationship Specialty Start Date End Date Hanane Martinez MD PCP - General Internal Medicine 08/09/19 [address] [place] [address] documented as of this encounter
--- OUTSIDE RECORDS SUMMARY | 2021-09-27 14:55 | XMS_ITS | Encounter Summary ---
:1960 Author Organization [facility] [place] [address] Care Team Providers Name Role Phone Hanane Martinez MD Primary Care Provider Reason for Visit Reason Comments Follow-up Encounter Details Date Type Department Care Team Description 09/06/2019 Office Visit General Surgery at [facility], Evy Magaña rticulitis of large intestine with perforation without bleeding; [facility] Diverticulitis [facility] [address] [place], [place] GENERAL SURGERY [address] [place] [address] [phone] Social History Tobacco Use Types Packs/Day Years [...] Sign Reading Time Taken Comments Blood Pressure 161/83 09/06/2019 8:59 AM EDT Pulse 85 09/06/2019 8:59 AM EDT Temperature 36.7 ??C (98 ??F) 09/06/2019 8:59 AM EDT Respiratory Rate 16 09/06/2019 8:59 AM EDT Oxygen Saturation 100% 09/06/2019 8:59 AM EDT Inhaled Oxygen Concentration - - Weight 91.6 kg (201 lb 14.4 oz) 09/06/2019 8:59 AM EDT Height 151.6 cm (4' 11.69) 09/06/2019 8:59 AM EDT Body Mass Index 39.85 09/06/2019 8:59 AM EDT documented in this encounter Patient Instructions Patient InstructionsMagnolia Jasso RN - 09/06/2019 10:30 AM EDT Pre-Operative Bowel Preparation Instructions for Colon and Rectal Surgery ([id number] version) Purchase at your pharmacy: Cleansing agents (over the counter) ?? 238 gram bottle of MiraLAX ?? 64 oz. Gatorade ?? 8 Dulcolax pills Antibiotics: (prescription) ?? 8 (500mg tablets) neomycin pills ?? 8 (500mg tablets) metronidazole pills Anti-nausea pills: (prescription) ?? 3 (8mg tablets)Zofran (ondansetron) pills Day Before Surgery: ?? No solid foods, milk, or milk products allowed. ?? Drink only clear liquids for breakfast, lunch, and dinner. ?? Clear liquids allowed and should be pushed: water, Clear fruit juices (apple, grape, cranberry) Gatorade, Bouillon, Jell-O (no fruit), Flavored ices, Tea and black coffee (it is okay to add sugar) ?? If you are diabetic, you may need to check your blood sugars more frequently then normal and/or drink sugar free options of clear liquids ?? This bowel prep will dehydrate you, so it is important to drink plenty of clear fluids in addition to the MiraLAX mix on the day of the prep. ?? 1pm - take one Zofran(ondansetron) anti-nausea pill, and take one every 8 hours as needed after for nausea ?? 2pm - take 4 Dulcolax pills with a clear liquid of your choice ?? 4pm - mix the 238-gram bottle of MiraLAX in 64 oz. of Gatorade (chilled or not) ?? Shake the solution until the MiraLAX is dissolved ?? Drink an 8 oz. glass every 10-15 minutes until the solution is gone ?? You should complete drinking the prep within two hours (by 6pm) ?? You will begin to have bowel movements and may have a feeling of ???fullness?? which will pass. It is expected that you will have watery bowel movements. ?? 7pm - take 4 more Dulcolax pills, and 4 neomycin pills & 4 metronidazole pills ?? 11pm - take another 4 neomycin pills and 4 metronidazole pills It is important that the doses of antibiotics be 4 hours apart Day of Surgery: ?? Do not eat or drink anything else except your medications with a sip of water, unless otherwise directed by the Same Day Surgery nurses ?? Check in at Same Day Surgery (the best place to park for this is the parking garage) Medications: ?? Do Not Take any medications containing aspirin (Domonique-Horatio, Anacin, Bufferin, baby aspirin, Dristan, etc.) for 10 days prior to your surgery. Unless otherwise directed by your surgeon. Please calloffice with questions- [phone] ?? Do Not Take medications for arthritis such as Motrin, Advil, Clinoril, Nuprin, etc. for 10 days prior to your surgery. Unless otherwise directed by your surgeon. Please call office with questions- [phone] ?? You may take Tylenol (Acetaminophen). ?? Continue to take any medications prescribed for high blood pressure or heart disease. ?? IF YOU TAKE COUMADIN or PLAVIX, CALL THIS OFFICE FOR INSTRUCTIONS If you have questions about your medications or the prep, please call the Same Day Program at before 5:00PM. After 5:00PM call and ask the control operator flow coat to page the General Surgery Resident site controller. The same day surgery nurses will call you between 3:00pm and 6:00 pm the weekday before your surgeryto confirm the time of your admission and to go over any further instructions 2 enemas / One the night before and then again the morning off surgery per Dr Wiley. documented in this encounter Progress Notes Miryam Wiley MD - 09/06/2019 10:30 AM EDT Colorectal Surgery Follow Up HPI: Jahaira underwent a Lucy's procedure for Hinchey 4 Diverticulitis on Mar 19, 2019. She desirescolostomy reversal. Last seen 07/26/2019. Since then had a colonoscopy with Dr. Lanier at [facility] to rule out other lesions in the colon and rectum. She has diverticula in the descending colon and a healthy appearing rectal stump. She continues to smoke but reports she is cutting back. Weight is stable. Continues to have some peristomal skin irritation but improved. BP 161/83 (BP Location (NBP): Right arm) Pulse 85 Temp 36.7 ??C (98 ??F) Resp 16 Ht 151.6 cm(4' 11.69) Wt 91.6 kg (201 lb 14.4 oz) SpO2 100% BMI 39.85 kg/m?? Body mass index is 39.85 kg/m??. Gen NAD Unlabored Assessment/Plan: Jahaira Montgomery is a 59-year-old woman with a history of Hinchey 4 diverticulitis status post Lucy's procedure on March 19, 2019 at an outside hospital. She desires colostomy reversal. She has a colonoscopy which shows scattered diverticula in the descending colon and a healthy appearing rectum. There were no polyps identified. Jahaira has a likely parastomal hernia. She continues tosmoke. She reports she is cutting back and plans to use her surgery and time in the hospital as a way for her to quit smoking but declines referral to our smoking cessation program. I discussed with Ms. Montgomery the risks and benefits of colostomy reversal including increased risk ofanastomotic leak and hernia formation in the setting of her obesity and continued smoking. We also discussed increased risk of pulmonary complications given her ongoing smoking. We discussed the optionof deferring surgery until she is able to lose weight and quit smoking. She does not feel that she is able to do this until her colostomy is reversed. We specifically discussed risks and benefits of pain, bleeding, infection, leak from the anastomosis, need for an ileostomy, injury to surrounding structures, need for further procedures or operations,bowel, bladder, and sexual dysfunction, hernia formation, risks related to having surgery during theCOVID pandemic, and problems with other organ systems including the heart, lungs, liver, kidneys, and blood clots, some of which can be life-threatening. We also discussed the risk of recurrent diverticulitis which is typically related to inadequate resection of the distal sigmoid. Does remain a smallrisk of recurrent diverticulitis in the remaining colon but she should anticipate having diverticularemaining as this is a relatively diffuse process for her. Jahaira wishes to proceed with surgery. Given the potential for an ileostomy and the issues she has had with her colostomy, I have asked our stoma team to evaluate her for marking for a possible loop ileostomy as I worry she would have more peristomal skin issues if the ileostomy is made at the site of her current colostomy. Jahaira is scheduled for surgery next week. She will have her PAT labs and complete a bowel prep with an oral MiraLAX and antibiotic prep and 2 enemas prior to surgery. All of her questions were answered. I personally spent a total of 25 minutes in [id number] consultation with the patient, of which 15 were in patient education and counseling. Miryam Wiley MD FACS histologist technologist Division of Colon and Rectal Surgery [facility] Pager [phone] documented in this encounter Plan of Treatment Upcoming Encounters Date Type Specialty Care Team Description 09/30/2021 Office Visit General Surgery Paloma Mota, CLINICAL SPECIALIST MEDICAL DEVICE [facility] GENERAL SURGERY [place], [place] [address] (Wo rk) 09/30/2021 Office Visit Infectious Diseases Werner Harrell MD [facility] ER INFECTIOUS DISEA [place], [place] [address] (Wo rk) documented as of this encounter Visit Diagnoses Diagnosis Diverticulitis of large intestine with p erforation without bleeding Diverticulitis Diverticulitis of colon (without mention of hemorrhage) documented in this encounter Care Teams Healthcare Financial Analyst Relationship Specialty Start Date End Date Hanane Martinez MD PCP - General Internal Medicine 08/09/[address] [place] [phone] documented as of this encounter
--- OUTSIDE RECORDS SUMMARY | 2021-09-27 14:55 | XMS_ITS | Encounter Summary ---
:1960 Author Organization [facility] Address [facility] [place] [address] Care Team Providers Name Role Phone Unavailable Primary Care Provider Unavailable Reason for Visit Reason Comments Establish Care attention to colostomy Encounter Details Date Type Department Care Team Description 07/26/2019 Office Visit General Surgery at [facility] Ostomy nurse consultation [facility] [place] [phone] Social History Tobacco Use Types Packs/Day [...] as of this encounter Progress Notes Batsheva Torres RN - 07/26/2019 1:00 PM EDT inserter note - pt comes in today to establish care with Dr. Miryam Wiley and the Ostomy team; sheis specifically here to discuss colostomy reversal. She is s/p Lucy's procedure with an end ileostomy secondary to perforated diverticulitis on 03/19/2019 at [facility]. She would like the colostomy reversed as soon as possible because she doesn't feel normal with the bag. 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 She has had a terrible experience with pouching. She has had lots of leaks and her pouch wear time is variable; sometimes it will last for 5 days and other times I have to change the thing 4 times a week. She is currently living with her brother and his ; they both assist her with ostomycare. She did have [facility] after surgery and did see PERICO Noguera, a few times post-op for assistance with ostomy care. She gets her supplies from [employer] without issue. She is currently wearing a Coloplast #[id number] with an adapt ring. Her stoma is red, moist, flush, and slightly oval ~1. Wediscussed her pouching procedure and she is using a lot of skin care products - adhesive releaser wipes and skin prep wipes. I recommended that she try to use as few products as possible and suggested that she stop using the wipes as they can build up a barrier on her skin and compromise pouch adherence. She does clean her peristomal skin with just water, which I commended her for. Right now, her peristomal skin looks healthy & intact, but she does describe times when her skin looks red and moist and feels itchy. At those times, she correctly uses antifungal powder & skin prep to treat her skin. It does appear that she has developed a small parastomal hernia. Today I continued with the Coloplast #[id number] pouch and adapt ring; I did discuss omitting the ring, but Jahaira says she tried that and her pouch leaked. I did cut the opening in the wafer larger, ~ 1 1/8, and picture-framed the waferwith Coloplast barrier strips. I gave her 3 sets of barrier strips to take home. Also showed her a Coloplast convex flip pouch #[id number] and gave her 2 of these to take home and try. Dr. Wiley discussed her timeline for colostomy reversal as well as the possibility of a temporary ileostomy after the reversal. Jahaira will return on 09/05 for a f/u with Dr. Wiley, the inserter and PAT. I provided Jahaira with our card so she can be in touch with any questions, concerns, or issues. documented in this encounter Plan of Treatment Upcoming Encounters Date Type Specialty Care Team Description 09/30/2021 Office Visit General Surgery Paloma Mota, [facility] GENERAL SURGERY [place], [place] [address] (Wo rk) 09/30/2021 Office Visit Infectious Diseases Uluis, Werner Kaye MD [facility] ER INFECTIOUS DISEHENRY, [place] [address] (Wo rk) documented as of this encounter Visit Diagnoses Diagnosis Ostomy nurse consultation documented in this encounter
--- OUTSIDE RECORDS SUMMARY | 2021-09-27 14:55 | XMS_ITS | Encounter Summary ---
:1960 Author Organization [facility] Address [facility] [place] [address] Care Team Providers Name Role Phone Hanane Martinez MD Primary Care Provider Reason for Visit Auth/Cert Specialty Diagnoses / Procedures Referred By Contact Refer red To Contact Diagnoses Diverticulitis DIVERTICULITIS DIVERTICULITIS Procedures PRO CLOSE ENTEROSTOMY, RESEC+ANAST PRO SIGMOIDOSCOPY, DIAGNOSTIC PRO CYSTOSCOPY, INSERT URETERAL STENT @CLOSURE OF ENTEROSTOMY, RESECTION & ANASTOMOSIS OTHER THAN COLORECTAL (WRVU 17. 28) SIGMOIDOSCOPY, FLEXIBLE W/WO SPECIMEN BY BRUSHING OR WASHING (WRVU 0.84) CYSTO, STENT PLACEMENT INTRAOP, TEMPORARY (WRVU 2.82) Referral ID Status Reason Start Date Expiration Date Visits Requ ested Visits Authorized [id number] 1 1 Encounter Details Date Type Department Care Team Description 09/14/2019 - Hospital Encounter 3 Lanette James nsive urgency; 09/19/2019 Christian Ninoska Sharpe MD Imbalance; [facility] History of colostomy reversa l [facility] [address] [facility] [place] [phone] Social History Tobacco Use Types Packs/Day Years [...] Sign Reading Time Taken Comments Blood Pressure 144/85 09/19/2019 11:00 AM EDT Pulse 79 09/17/2019 4:07 AM EDT Temperature 36.8 ??C (98.2 ??F) 09/19/2019 11:00 AM EDT Respiratory Rate 16 09/19/2019 7:29 AM EDT Oxygen Saturation 95% 09/19/2019 11:00 AM EDT Inhaled Oxygen Concentration - - Weight 96 kg (211 lb 9.6 oz) 09/17/2019 6:51 AM EDT Height 151.6 cm (4' 11.69) 09/14/2019 11:17 AM EDT Body Mass Index 41.76 09/14/2019 11:17 AM EDT documented in this encounter Discharge Summaries Mckenna Sandoval MD - 09/14/2019 11:23 AM EDT Images from the original note were not included. Colorectal Surgery Discharge Summary Patient Name: Jahaira Montgomery Patient Age: 59 y.o. Birthdate: 1960 Admit date: 09/14/2019 Discharge date: 09/19/19 Attending Physician: LANETTE WILEY Primary Diagnosis: Admitting Diagnosis: DIVERTICULITIS Now Status Post: Procedure(s): @CLOSURE OF ENTEROSTOMY, RESECTION & ANASTOMOSIS OTHER THAN COLORECTAL (WRVU 17.28) SIGMOIDOSCOPY, FLEXIBLE W/WO SPECIMEN BY BRUSHING OR WASHING (WRVU 0.84) CYSTO, STENT PLACEMENT INTRAOP, TEMPORARY (WRVU 2.82) Date of surgery: 09/14/2019 Discharge Diagnoses (Hospital Problems): Active Hospital Problems Diagnosis ??? Diverticulitis Resolved Hospital Problems No resolved problems to display. Secondary Diagnoses (Chronic Problems): Active Non-Hospital Problems Diagnosis ??? Attention to colostomy ??? Ostomy nurse consultation Operations/Major Procedures: 09/14/2019 Surgeon(s) and Role: Panel 1: * Lanette Wiley MD - Primary Panel 2: * Anil Power MD - Primary Panel 1 @CLOSE ENTEROSTOMY, LG,SM INTESTINE, W\RESECT COLORECTAL ANAST. (WRVU 27.9): SIGMOIDOSCOPY, FLEXIBLE W/WO SPECIMEN BY BRUSHING OR WASHING (WRVU 0.84): @OMENTAL FLAP, INTRA-ABDOMINAL (WRVU 6.54): @MOBILIZATION OF SPLENIC FLEXURE (WRVU 2.23): Panel 2 CYSTO, STENT PLACEMENT INTRAOP, TEMPORARY (WRVU 2.82): HPI: Jahaira Montgomery is a 59-year-old woman with a history of Hinchey 4 diverticulitis status post Lucy's procedure on March 19, 2019 at an outside hospital. She desires colostomy reversal. She has acolonoscopy which shows scattered diverticula in the descending colon and a healthy appearing rectum. There were no polyps identified. Jahaira has a likely parastomal hernia. She continues to smoke. She reports she is cutting back and plans to use her surgery and time in the hospital as a way for her toquit smoking but declined referral to our smoking cessation program. ?? Dr. Lanette Wiley has discussed with Ms. Montgomery the risks and benefits of colostomy reversal including increased risk of anastomotic leak and hernia formation in the setting of her obesity and continued smoking. She also discussed increased risk of pulmonary complications given her ongoing smoking. Dr. Wiley discussed the option of deferring surgery until she is able to lose weight and quit smoking.Jahaira does not feel that she is able to do this until her colostomy is reversed. ?? Goals, risks, alternatives have been discussed, including possible need for temporary ileostomy - for which Jahaira has been evaluated already by fisher trawl net bertha,, the patient has expressed understanding and has elected to proceed with operative intervention at this time. Hospital Course: Jahaira Montgomery is a 59 y.o. female who was admitted on 09/14/2019 for Lucy's reversal. Jahaira Montgomery was taken to the operating room where she underwent a Lucy's reversal with colostomy takedown and a side to end primary anastomosis. Intraoperatively, Urology team placed an indwelling J-J ureteral stent. Patient will need to follow-up with Urology as an outpatient in about 4 weeksfor stent removal. This appointment has been scheduled. She tolerated the operation well and withoutcomplication. She was admitted post- operatively for clinical monitoring and further management. Patient was advanced to a regular diet and tolerated this well. During her stay, she was found to have hypertensive emergency with one episode of possible neuro changed when ambulating (blurry vision). She has not previously been diagnosed with HTN snd is not on any anti-hypertensives. We started her on 5mg of Amlodipine, that was increased to 10mg on 09/19/19. Day of discharge, herblood pressures were in the ranges of systolics of 160s. Indwelling urinary catheter was removed on 09/15 and she was voiding spontaneously. During hr hospitalstay, she had increased frequency of urination following pat removal, but she remained afebrile and denied hematuria/dysuria/urgency, so we were not concerned for a UTI. She was voiding 75-150mL witheach void. Lovenox teaching was provided as she will continue on anticoagulation with Lovenox therapy for a total of 28 days from date of surgery due to smoking history. The patient was deemed stable for discharge on 09/19/2019. Colon & Rectal Surgery Evidence-based* Discharge Criteria [x] adequate oral intake [x] adequate urine output [x] ambulating independently >4X day in hallway [x] effective peristalsis: consistently passing flatus and/or stool [x] no evidence of complications; educated about signs and symptoms of complications [x] pain controlled with oral meds [x] Tylenol alternating every three hours with Ibuprofen (with food) around the clock (assuming no contraindications to either). [x] ex. Tylenol 12pm, Ibuprofen 3pm, Tylenol 6pm, Ibuprofen 9pm [] Tramadol or Oxycodone for breatkthrough [x] follow-up appointment already scheduled -call Ana Cordova [phone] for scheduling assistance -call the General Surgery Clinic nurses [phone] for prior authorizations assistance Only if applicable (check either NA or at end after scheduled): [x] NA visiting nurse arrangements in place [] [x] NA ostomy nursing appt. POD# 12-14 [] [x] NA subQ drain(s) stay in until < 30 cc / 24 hours each x 3 days in a row [] [] NA fara out POD #12-14 (General Surgery nurses clinic for drain/staple removal) [x] *Andrei ANTONIO Jr, et al. Criteria to determine readiness for hospital discharge following colorectal surgery: an international consensus using the [place] technique. Dis Colon Rectum. 2012 Jun;55(4):416-23. Vital Signs Last value Range last 24hrs Temperature Temp: 36.8 ??C (98.2 ??F) Temp: [36.7 ??C (98.1 ??F)-37.4 ??C (99.3 ??F)] Heart Rate Heart Rate: 79 Heart Rate: -- Blood Pressure BP: 144/85 BP: (144-179)/(79-93) Respiratory Rate Resp: 16 Resp: [16] SpO2 SpO2: 95 % SpO2: [93 %-96 %] Physical Exam: Body mass index is 41.76 kg/m??. General: NAD, resting comfortably, pleasant, conversant HEENT: PERRL CVS: RRR Pulm: Breathing comfortably, no respiratory distress Abd: soft, nondistended and nontender to palpation, incision closed with fara. Old stoma site is closed not draining or erythematous Skin: warm, dry Neuro: CN 2-12 grossly intact, nonfocal,moving all four extremities spontaneously Imaging: None Condition at discharge: Stable Mental Status: awake and alert, oriented x 3 Medications: Your Medications New Medications Dose Details acetaminophen 500 mg Tab Commonly known as: Tylenol Extra Strength Take 1 tablet by mouth every 6 hours as needed for Pain. 500 mg Quantity: 30 tablet Refills: 0 amLODIPine 10 mg Tab Commonly known as: Norvasc Take 1 tablet by mouth daily. Start taking on: September 20, 2019 10 mg Quantity: 30 tablet Refills: 0 enoxaparin 40 mg/0.4 mL Syrg Commonly known as: LOVENOX Inject 0.4 mLs subcutaneously daily for 24 days. 40 mg Quantity: 9.6 mL Refills: 0 ibuprofen 600 mg Tab Commonly known as: Advil;Motrin Take 1 tablet by mouth every 6 hours as needed for Pain. 600 mg Quantity: 30 tablet Refills: 0 Continued medications, unchanged Dose Details docusate sodium 100 mg Cap Commonly known as: Colace Take 100 mg by mouth daily. 100 mg Refills: 0 MIRALAX ORAL Take by mouth. Refills: 0 Disposition: Home Allergies: No Known Allergies Outpatient Services/Studies: Referral to Home Health - at DISCHARGE Order Comments: DOCUMENTATION FOR VNA SERVICES (INCLUDING THOSE PATIENTS WITH MEDICARE COVERAGE REQUIRING HOME VNA SERVICES AND/OR HOSPICE SERVICES) PATIENT'S LOCATION: Jahaira [id number] [place] [address] Survey Coordinator's Name: Self and sister in law In discussion with the attending physician, it is certified that this patient is under their care and that they, or a Nurse Practitioner,Clinical Nurse specialist or Physician Job Analysis Manager who is working directly with them, had a face to face encounter that meets the physician face to face encounter requirements with this patient on 09/19/2019 The encounter with the patient was in whole, or in part, for the following medical condition, which is the primary reason for home health care services: S/P reversal of Rahman's procedure w continued unsteady gait post op In discussion with the provider, it is certified that, based on their findings, the following services are medically necessary for home health services. To provide the following care/treatments with the clinical findings supporting the need for servicesas follows: HOME CARE ORDERS: RN ORDERS:Assess wound or incision, vital signs, cardiopulmonary status, nutrition, hydration, elimination, meds effectiveness and management; reinforce education re health issues PT ORDERS: Continue rehab for endurance, gait stability and strength with mobility and transfers. Home safety evaluation. Home exercise program if appropriate. HOME HEALTH CARE AGENCY: [facility] PHONE: [phone] FAX: [phone] Start of care:In 48 hrs of d/c Please note that any additional orders needs or changes will need to be obtained from this patient'sPCP: Hanane Martinez MD 9 [facility] [id number] All VNA agencies which cover the area of patient's residence have been reviewed, either verbally or in writing, and patient/family have chosen the home health care agency noted Question Response Notes Agency name and contact information [facility] What services are requested Physical Therapy Responsible MD post discharge contact info [facility] and PCP Scheduled Appointments: Future Appointments and Orders Future Appointments and Orders Future Appointments Provider Department Dept Phone 10/18/2019 9:30 AM Lanette Wiley MD General Surgery at [facility] Arrive at: [place] [phone] 10/18/2019 10:20 AM Beni Lozano MD; UROLOGY, CYSTO1 Urology at [facility] Arrive at: [place] [place] [address] [phone] Future Orders Complete By Expires Referral to Home Health - at DISCHARGE [RFM2662 CPT(R)] As directed Process Instructions: Scheduling Instructions: Comments: DOCUMENTATION FOR VNA SERVICES (INCLUDING THOSE PATIENTS WITH MEDICARE COVERAGE REQUIRING HOME VNA SERVICES AND/OR HOSPICE SERVICES) PATIENT'S LOCATION: [place] [address] Survey Coordinator's Name: Self and sister in law In discussion with the attending physician, it is certified that this patient is under their care and that they, or a Nurse Practitioner,Clinical Nurse specialist or Physician Job Analysis Manager who is working directly with them, had a face to face encounter that meets the physician face to face encounter requirements with this patient on 09/19/2019 The encounter with the patient was in whole, or in part, for the following medical condition, which is the primary reason for home health care services: S/P reversal of Rahman's procedure w continued unsteady gait post op In discussion with the provider, it is certified that, based on their findings, the following services are medically necessary for home health services. To provide the following care/treatments with the clinical findings supporting the need for servicesas follows: HOME CARE ORDERS: RN ORDERS:Assess wound or incision, vital signs, cardiopulmonary status, nutrition, hydration, elimination, meds effectiveness and management; reinforce education re health issues PT ORDERS: Continue rehab for endurance, gait stability and strength with mobility and transfers. Home safety evaluation. Home exercise program if appropriate. HOME HEALTH CARE AGENCY: [facility]. PHONE: [phone] FAX: [phone] Start of care:In 48 hrs of d/c Please note that any additional orders needs or changes will need to be obtained from this patient'sPCP: Hanane Martinez MD [address] [facility] [address] All VNA agencies which cover the area of patient's residence have been reviewed, either verbally or in writing, and patient/family have chosen the home health care agency noted Questions: Agency name and contact information: [facility] Patient location post discharge: What services are requested: Physical Therapy Start date: Responsible MD post discharge contact info: [facility] and PCP Walker standard [EQ135 Custom] As directed Process Instructions: Scheduling Instructions: Comments: Jahaira Montgomery [address] [facility] [address] Diagnosis:with Unsteady gait s/p Rahman's procedure reversal now POD 6 Significant weakness, ataxia or gait abnormality Patient's: Hgt: 4.5 Wgt: 211 # VENDOR: [employer] [facility] Located @ [facility] Center [place], [place] Ordering: Front wheel walker [facility] #: 306 Questions: Vendor Name/Contact information: [employer] @ [facility] Instructions Given to Patient at Discharge: Patient Instructions Colon and Rectal Surgery Patient Discharge Instructions Activity level: Avoid heavy lifting for the next 4-6 weeks or until cleared to do so at follow-up appointment. To expound on this, no straining, lifting, pushing, pulling greater than 10 lbs during this time frame. Do not engage in any activities that would engage your core/abdominal muscles. No running, jumping, etc. Otherwise activity as tolerated by comfort level. It is OK to walk, and you should be encouraged to walk frequently. Diet: Regular diet. You should try and drink 2 liters of fluids daily. Bowel Movements after ostomy reversal: More often than not, after ostomy reversal, you may have loose and frequent stools. This is common as your body is adjusting to using your rectum again post-operatively. A good first step to counter this, is to increase natural fiber in your diet with high-fiber foods. If you are concerned about your stool frequency/urgency, please call for further instruction. Shower/Bath: You may shower and get incision(s) wet. Pat dry immediately following. Do not scrub them vigorously for the next 2-3 weeks. Do not soak incision(s) for the next 2 weeks (i.e. soaking in bath or swimming) as this may promote a wound infection. Wound Care: Wash incision with soap and water, pat dry, and cover with gauze as needed to prevent incision rubbing on clothes or for any seepage. Lovenox: You will remain on Lovenox for anticoagulation for a total of 28 days from day of surgery. Please refer to instruction from your nurse for home administration. Pain Medication: Tylenol should be used as primary vnzc-ytz-qqqjhlk pain reliever; 650mg every 6 hours or 1000mg every 8 hours as needed. Do not exceed 3000mg in 24 hours. Ibuprofen may also be used and dosed at 600mg every 6 hours as well. Ibuprofen should only be used for a maximum of 2 weeks post-op eratively. In addition to these medications, non-opioid therapies and non- pharmacologic modalities such as heating pad, ice, and activity modification are recommended as appropriate for adjunct treatment of your pain. Risks and potential side effects of opioid medications, that include but are not limited to, addiction, overdose and , dependence, tolerance, constipation, sexual dysfunction, hyperalgesia and crime victimization have been discussed. Also informed of: - the risks of keeping unused medication -counseled on keeping opioids locked -counseled on safe disposal of unused medication -dangers of operating a motor vehicle or heavy machinery -if a renewal is required, they shall return for an in-office follow up for reevaluation. The Acute Opioid Therapy Informed Consent form has been completed and sent to medical records for scanning to chart. Follow up Appointments: You will receive a phone call and/or a letter in the mail with information about your appointments. Please call [phone] (clinic number for appointments only) to confirm date and time of your appointments or if you do not receive information about your appointment in a timely manner. Future Appointments Date Time Provider Department Center 10/18/2019 9:30 AM Lanette Wiley MD [facility] SURG [facility] 10/18/2019 10:20 AM Beni Lozano MD [facility] Call your doctor if: ??? You develop any of the following sings or symptoms of infection: o Redness or swelling of your incision (some mild redness around the incision and the staple sites is normal) o Drainage or bleeding from your incision o Fever over 100.5 F o Increased pain or discomfort at the incision site ??? Persistent nausea and/or vomiting or the inability to keep foods or fluids down in a 24 hour period. ??? Signs or symptoms of dehydration: o Dry mouth o Dark, concentrated urine, or lack of urine o Lightheadedness ??? Any other concerning sign or symptom such as shortness or breath, chest pain, pain with urination or other signs of urinary tract infection (UTI), or new leg pain/swelling. Also, please call if youdevelop increasing abdominal pain, abdominal firmness, if you stop passing gas or stool for an extended period of time, or bloody bowel movements/vomiting. CALL THE GENERAL SURGERY CLINIC DURING WORKING HOURS AT , OR CALL AFTERCLINIC HOURS, WEEKENDS AND HOLIDAYS: ASK FOR THE SURGERY RESIDENT SECURITY SYSTEM ANALYST IF ANY OF THE ABOVE OCCUR. Divison of Colon and Rectal Surgery ??? [facility] ??? [address] ??? [place] [address] ??? [phone] ??? ~~~~~~~~~~~~~~~~~~~~~~~~~~~~~~~~~~~~~~~~~~~~~~~~~~~~~~~~~~~~~~~~~~~ Instructions from urology General Instructions Instructions following ureteral stent placement Wound Care: None needed Activity: As tolerated by your comfort level. Urination: You will likely have a small amount of blood in your urine for the next several days, up to 10-14 days. This is normal; however, if you are passing large amounts of blood clots, bright red blood or are bleeding an unable to urinate please call the urology office at [phone] before 5PM or [phone] after hours. It is normal for the ureteral stent to cause some irritation in your bladder. You may feel that you need to urinate often or with urgency, also there may be irritation when you urinate. This is normal.If you cannot tolerate this irritation or if you have severe back or side pain, you should call our office [phone] before 5PM or [phone] after hours. Call Doctor for: Please call urology if you have copious blood in your urine or severe back or side pain. The number for questions for urology is [phone] before 5 PM weekdays and [phone] after 5 PM and weekends. Suggested Pain Medication for Ureteral Stents: Take flomax 0.4mg daily Take 1000mg tylenol every 6 hours Take 600mg ibuprofen every 6 hours (Alternate tylenol and ibuprofen such that you are taking one of these medications every 3 hours) Follow-up: You will be seen in 1 month for ureteral stent removal. Stents are removed in the clinic. Stent removal does not require general anesthesia. Please call [phone] (clinic number for appointments) toconfirm date and time of your appointment if you do not receive your apointment in 10 days. [facility] Surgery - Provider Contact Information: [phone] Primary Camryn Physician: Hanane Martinez MD 9 [facility] [address] Signed: Mckenna Sandoval MD 09/19/19 3:07 PM documented in this encounter Discharge Instructions Discharge InstructionsIsaac Prado MD - 09/15/2019 9:21 AM EDT Instructions following ureteral stent placement Wound Care: None needed Activity: As tolerated by your comfort level. Urination: You will likely have a small amount of blood in your urine for the next several days, up to 10-14 days. This is normal; however, if you are passing large amounts of blood clots, bright red blood or are bleeding an unable to urinate please call the urology office at [phone] before 5PM or [phone] after hours. It is normal for the ureteral stent to cause some irritation in your bladder. You may feel that you need to urinate often or with urgency, also there may be irritation when you urinate. This is normal.If you cannot tolerate this irritation or if you have severe back or side pain, you should call our office [phone] before 5PM or [phone] after hours. Call Doctor for: Please call urology if you have copious blood in your urine or severe back or side pain. The number for questions for urology is [phone] before 5 PM weekdays and [phone] after 5 PM and weekends. Suggested Pain Medication for Ureteral Stents: Take flomax 0.4mg daily Take 1000mg tylenol every 6 hours Take 600mg ibuprofen every 6 hours (Alternate tylenol and ibuprofen such that you are taking one of these medications every 3 hours) Follow-up: You will be seen in 1 month for ureteral stent removal. Stents are removed in the clinic. Stent removal does not require general anesthesia. Please call [phone] (clinic number for appointments) toconfirm date and time of your appointment if you do not receive your apointment in 10 days. Patient InstructionsMckenna Sandoval MD - 09/15/2019 12:49 PM EDT Images from the original note were not included. Colon and Rectal Surgery Patient Discharge Instructions Activity level: Avoid heavy lifting for the next 4-6 weeks or until cleared to do so at follow-up appointment. To expound on this, no straining, lifting, pushing, pulling greater than 10 lbs during this time frame. Do not engage in any activities that would engage your core/abdominal muscles. No running, jumping, etc. Otherwise activity as tolerated by comfort level. It is OK to walk, and you should be encouraged to walk frequently. Diet: Regular diet. You should try and drink 2 liters of fluids daily. Bowel Movements after ostomy reversal: More often than not, after ostomy reversal, you may have loose and frequent stools. This is common as your body is adjusting to using your rectum again post-operatively. A good first step to counter this, is to increase natural fiber in your diet with high-fiber foods. If you are concerned about your stool frequency/urgency, please call for further instruction. Shower/Bath: You may shower and get incision(s) wet. Pat dry immediately following. Do not scrub them vigorously for the next 2-3 weeks. Do not soak incision(s) for the next 2 weeks (i.e. soaking in bath or swimming) as this may promote a wound infection. Wound Care: Wash incision with soap and water, pat dry, and cover with gauze as needed to prevent incision rubbing on clothes or for any seepage. Lovenox: You will remain on Lovenox for anticoagulation for a total of 28 days from day of surgery. Please refer to instruction from your nurse for home administration. Pain Medication: Tylenol should be used as primary [id number]-pfllarc pain reliever; 650mg every 6 hours or 1000mg every 8 hours as needed. Do not exceed 3000mg in 24 hours. Ibuprofen may also be used and dosed at 600mg every 6 hours as well. Ibuprofen should only be used for a maximum of 2 weeks post-op eratively. In addition to these medications, non-opioid therapies and non- pharmacologic modalities such as heating pad, ice, and activity modification are recommended as appropriate for adjunct treatment of your pain. Risks and potential side effects of opioid medications, that include but are not limited to, addiction, overdose and , dependence, tolerance, constipation, sexual dysfunction, hyperalgesia and crime victimization have been discussed. Also informed of: - the risks of keeping unused medication -counseled on keeping opioids locked -counseled on safe disposal of unused medication -dangers of operating a motor vehicle or heavy machinery -if a renewal is required, they shall return for an in-office follow up for reevaluation. The Acute Opioid Therapy Informed Consent form has been completed and sent to medical records for scanning to chart. Follow up Appointments: You will receive a phone call and/or a letter in the mail with information about your appointments. Please call [phone] (clinic number for appointments only) to confirm date and time of your appointments or if you do not receive information about your appointment in a timely manner. Future Appointments Date Time Provider Department Center 10/18/2019 9:30 AM Lanette Wiley MD [facility] SUR[facility] 10/18/2019 10:20 AM Beni Lozano MD [facility] Call your doctor if: ??? You develop any of the following sings or symptoms of infection: o Redness or swelling of your incision (some mild redness around the incision and the staple sites is normal) o Drainage or bleeding from your incision o Fever over 100.5 F o Increased pain or discomfort at the incision site ??? Persistent nausea and/or vomiting or the inability to keep foods or fluids down in a 24 hour period. ??? Signs or symptoms of dehydration: o Dry mouth o Dark, concentrated urine, or lack of urine o Lightheadedness ??? Any other concerning sign or symptom such as shortness or breath, chest pain, pain with urination or other signs of urinary tract infection (UTI), or new leg pain/swelling. Also, please call if youdevelop increasing abdominal pain, abdominal firmness, if you stop passing gas or stool for an extended period of time, or bloody bowel movements/vomiting. CALL THE GENERAL SURGERY CLINIC DURING WORKING HOURS AT , OR CALL AFTERCLINIC HOURS, WEEKENDS AND HOLIDAYS: ASK FOR THE SURGERY RESIDENT SECURITY SYSTEM ANALYST IF ANY OF THE ABOVE OCCUR. Divison of Colon and Rectal Surgery ??? [facility] ??? [address] ??? [place] [address] ??? [phone] ??? ~~~~~~~~~~~~~~~~~~~~~~~~~~~~~~~~~~~~~~~~~~~~~~~~~~~~~~~~~~~~~~~~~~~ documented in this encounter Medications at Time of Discharge Medication Sig Dispensed Refills Start Date End Date enoxaparin (LOVENOX) Inject 0.4 mLs 9.6 mL 0 09/19/2019 10/13/2019 40 mg/0.4 mL Syringe subcutaneously daily for 24 days. amLODIPine (Norvasc) Take 1 tablet by mouth 30 tablet 0 09/201910/18/2019 10 mg Tablet daily. acetaminophen (Tylenol Take 1 tablet by mouth 30 tablet 0 0 09/19/2019 09/19/2021 Extra Strength) 500 mg every 6 hours as needed Tablet for Pain. ibuprofen Take 1 tablet by mouth 30 tablet 0 09/19/2019 (Advil;Motrin) 600 mg every 6 hours as needed Tablet for Pain. docusate sodium Take 100 mg by mouth 0 10/18/2019 (Colace) 100 mg daily. Capsule polyethylene glycol Take by mouth. 0 0 10/18/2019 3350 (MIRALAX ORAL) documented as of this encounter Progress Notes Kendrick Camacho MD - 09/19/2019 4:20 PM EDT Colorectal Surgery Update We were informed that Jahaira Montgomery had a PVR of 530cc at 9:53am, she had previously had a PVR of 0ccat 8:38am and had voided 225cc between the two bladder scans. Further, she continued to void 75cc-150cc after the PVR recorded at 9:53am. Given this, we thought it was reasonable to allow Jahaira Montgomery to continue to void on her own and not straight cath her. Kendrick Camacho MD, MS Lima Chu RN - 09/19/2019 2:58 PM EDT Patient discharged to home per MD order. Voiding frequently, PVR 530mL, MD aware. VSS, assessment otherwise unchanged. Lovenox teaching provided to patient and brother. Awaiting walker for home. Pleasesee MAR and flow sheets for details. Will follow up with surgical team. Paloma Flores RN - 09/19/2019 2:37 PM EDT Office of Care Management(OCM)/Sales And Marketing Administrator(CM)/Discharge Planning Service: [facility] CM Paloma FloresRN,BSN,MA,[facility] pgr [phone] Reviewed in interdisciplinary rounds with [facility] team, CM, bioinformatics research technician, [facility] Pt is stable for d/c today. Met w pt about walker and home PT services as recommended by [facility] PT. She agreed. Reviewed choices and that she had a choice; none of her options were [facility] affiliates. Listed the 2 [employer]IC[employer] that serve her town. Listed 3-4 DME vendors for the walker. Pt agreed to: [facility]. PHONE: [phone] FAX: [phone] AND [facility] Located @ [facility] Center [place], [place] D/C is as soon as gets walker as her ride is here now. Nikos Shin RN - 09/18/2019 9:36 AM EDT Patient had elevated BP w/ AM vitals but asymptomatic, team notified and visited patient at bedside.Resident requested and verified to RN to get patient OOB due to asymptomatic. Patient stood at bedside with PT resulting in BP of 208/101, team put through PO amlodipine and labetalol orders at same time as PT visit. Patient immediately sat back down and given requested PO amlodipine, tolerated well. Patient only able to take 5mg IV labetelol before site started burning IV team paged, provider notified. New access gained. Follow-up BP was 172/88, team paged and informed nurse to continue to monitor.STAT EKG ordered and obtained, team notified. Dani Ewing MD - 09/18/2019 9:00 AM EDT INPATIENT DAILY PROGRESS NOTE Patient Name: Jahaira Montgomery Patient Age: 59 y.o. Birthdate: 1960 Admit date: 09/14/2019 Attending Physician: Lanette Wiley MD ID: Jahaira Montgomery is a 59 y.o. female with a hx of diverticulitis s/p Lucy's now 4 Days Post-Op s/p Lucy's reversal with double J indwelling stent placement on right side due to distal ureteral distortion. Operations this Admission: - see above pocedure Recent events/symptoms: - No acute changes - Tolerating regular diet, multiple BM (she does not know consistency) - Episode of blurry vision when ambulating. SBP >190 on two occasions although not symptomatic during those episodes. Received labetalol overnight with improvement - She denies complaints this morning besides some sweats which she says are normal for her O: Last value Range last 24hrs Temperature Temp: 36.8 ??C (98.2 ??F) Temp: [36.8 ??C (98.2 ??F)-37 ??C (98.6 ??F)] Heart Rate Heart Rate: 79 Heart Rate: -- Blood Pressure BP: (!) 172/94 BP: (150-192)/(71-100) Respiratory Rate Resp: 16 Resp: [16-22] SpO2 SpO2: 94 % SpO2: [93 %-97 %] Body mass index is 41.76 kg/m??. 09/16 0701 - 09/17 0700 In: 720 [P.O.:720] Out: 2875 [Urine:2875] Regular diet Intake/Output Summary (Last 24 hours) at 09/18/2019 0900 Last data filed at 09/18/2019 0845 Gross per 24 hour Intake 960 ml Output 2975 ml Net -2015 ml Physical Exam: General: comfortable, alert and appropriate HEENT: normocephalic, atraumatic, no scleral icterus CVS: regular rate Pulm: breathing comfortably on room air, nonlabored Abd: soft, mild distention and tenderness to palpation along incision with fara, some crusted drainage and slightly bruising no erythema. Old stoma site is closed not draining or erythematous : no pat Ext: warm and well perfused, no edema Neuro: Grossly intact, nonfocal, moving all four extremities spontaneously. No results for input(s): WBC, HGB, HCT, PLATELET, PT, INR, PTT in the last 72 hours. No results for input(s): NA, K, CL, CO2, BUN, CREATININE, GLUCOSE, CALCIUM, MAGNESIUM, PHOS in the last 72 hours. ASSESSMENT: Jahaira Montgomery is a 59 y.o. female 4 Days Post-Op s/p Lucy's reversal (h/o diverticulitis) and double J indwelling stent placement on right side due to distal ureteral distortion. From a postoperative GI standpoint she is doing well and appropriate for discharge. She has been quite hypertensive however with two measured SBP > 190 and one episode of possible neuro changes whenambulating, which may or may not be related. She is not on any home anti-HTN and denies BP issues inpast. Will start amlodipine today as 1st line therapy and monitor. PLAN BY SYSTEM N: Sched tylenol, gabapentin, toradol with prn tramadol. CV: Amlodipine 5mg. Prn labetalol for SBP > 175. Prior smoker, will continue ppx lovenox for 28d Pulm: encourage IS GI: Regular diet. Abdominal binder ordered for comfort/support /FE: Pat out, voiding ID: [id number] Heme: Current smoker--lovenox 28d on discharge Endo: On SSI, no insulin req. DISPO: Floor status. Anticipate home tomorrow if BP improved Code status: Full Dani Ewing MD 09/18/2019 Colorectal Surgery p.[id number] Hanane Lee RN - 09/18/2019 4:24 AM EDT Blood pressure rechecked, down to 164/82, WDL. No medication given. Nikos Shin RN - 09/17/2019 2:08 PM EDT Patient ambulated out to nurses station with staff assist and began feeling dizzy. Patient aided to chair by staff and BP taken with Blade monitor and found to be hypertensive, see doc flowsheets. Patient stood up to transfer to wheeling chair to be brought back to room, patient immediately felt nauseous and began dry heaving, appeared flush and stated she felt hot and had double vision. Patient aided to wheeling chair by staff and brought back to room after symptoms subsided. Patient aided back to bed by staff and blood pressures continued to be taken but remain hypertensive. Team paged and assessed patient at bedside, ordered prn labetelol and requested updates on patient. RN will administer labetelol after vitals taken and medication clears pharmacy. Will continue to monitor. Dani Ewing MD - 09/17/2019 9:55 AM EDT Colorectal Surgery Inpatient Progress Note Patient Name: Jahaira DEMARCO; Age: 5 1960; 59 y.o. [facility]: [facility] Today's Date: 09/17/19 ID: Jahaira Montgomery is a 59 y.o. 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 24 Hour Events/Subjective: - has been having flatus and BM (small) - pt up to urinate - intermittent O2 via NC at night when sleeping Objective VS - (Temp: [36.6 ??C (97.9 ??F)-36.8 ??C (98.2 ??F)] ) Temp: 36.8 ??C (98.2 ??F), (Heart Rate: [73-79] ) Heart Rate: 79, (BP: (111-163)/(61-80) ) BP: 163/80, (Resp: [16-18] ) Resp: 16, (SpO2: [90 %-96%] ) SpO2: 94 % Physical Exam Gen: NAD HEENT: NC/AT, EOMI CV : RRR Pulm: breathing comfortably, no respiratory distress Abd: non-distended, soft, tender on palpation upper midline, midline stapled wound CDI (slight separation of skin with serous drainage at apex of pannus), old ostomy healing w/ minimal drainage : not examined Ext: SCDs in place, no edema, warm lower extremities bilaterally Skin: warm, dry Drains: - NA 24 Hour I/O's: I/O last 3 completed shifts: In: 2170 [P.O.:1640; I.V.:530] Out: 2450 [Urine:2450] Admit Weight: 91.6 kg Current Weight: Weight: 96 kg (211 lb 9.6 oz) Labs: Recent Labs 09/15/19 04509/14/191954 HGB 14.0 15.5 HCT 44.2 49.7* Recent Labs 09/15/19 0450 09/14/191954 NA -- 140 K -- 3.8 CL -- 108* CO2 -- 20* BUN -- 11 CREATININE 0.84 0.65* GLUCOSE -- 238* CALCIUM -- 8.1* Micro: - NA New Imaging: - NA A/P: Jahaira Montgomery is a 59 y.o. 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 Jahaira is doing well this morning. She is having good flatus and beginning to have small BMs. Continue to monitor for pt tolerating regular diet. PT visit for possible dc tomorrow. NEURO: - acetaminophen 1000mg q6h - ketorolac 15mg IV 4x/day - lidocaine patches - tramadol 50g q6h prn CV: - hemodynamically stable PULM: - encourage OOB/IS GI/FEN: - Regular diet RENAL: - UOP adequate ENDO: - SSI w/ glucose checks - plan to dc as no requirement HEME: - DVT ppx with enoxaparin 40mg - plan is to d/c with Lovenox ID: - no acute issues WOUND: - dressing over ostomy changed on rounds - abdominal binder given obesity and weak fascia w/ prior surgeries PPX: - IS, SCDs LINES: - PIV DISPO: - floor status - possible dc tomorrow - Full Code Dani Ewing MD 09/17/2019 Colorectal Surgery Team pager #[phone] Dani Ewing MD - 09/16/2019 10:14 AM EDT INPATIENT DAILY PROGRESS NOTE Patient Name: Jahaira Montgomery Patient Age: 59 y.o. Birthdate: 1960 Admit date: 09/14/2019 Attending Physician: Lanette Wiley MD ID: Jahaira Montgomery is a 59 y.o. female with a hx of diverticulitis s/p Lucy's now 2 Days Post-Op s/p Lucy's reversal with double J indwelling stent placement on right side due to distal ureteral distortion. Operations this Admission: - see above pocedure Recent events/symptoms: - No acute changes - Advanced to regular diet - 1.5L IVB for low UOP. ~0.3cc/kg/hr last 24hr - She feels a little more sore this morning. Tolerating PO without nausea. + flatus / - BM yet. O: Last value Range last 24hrs Temperature Temp: 36.8 ??C (98.2 ??F) Temp: [36.7 ??C (98.1 ??F)-37.3 ??C (99.1 ??F)] Heart Rate Heart Rate: 76 Heart Rate: -- Blood Pressure BP: 114/57 BP: (95-114)/(36-57) Respiratory Rate Resp: 17 Resp: [14-17] SpO2 SpO2: 92 % SpO2: [89 %-96 %] Body mass index is 41.59 kg/m??. 09/14 0701 - 09/15 0700 In: 1506 [P.O.:886; I.V.:620] Out: 788 [Urine:788] Regular diet Intake/Output Summary (Last 24 hours) at 09/16/2019 1014 Last data filed at 09/16/2019 1011 Gross per 24 hour Intake 1706 ml Output 1108 ml Net 598 ml Physical Exam: General: mildly uncomfortable, alert and appropriate HEENT: normocephalic, atraumatic, no scleral icterus CVS: regular rate Pulm: breathing comfortably on room air, nonlabored Abd: soft, mild distention and tenderness to palpation diffusely especially upper mid abdomen, incision with fara c/d/i slight bruising no drainage or erythema. Old stoma site dressed : Pat with ship joiner output Ext: warm and well perfused, no edema Neuro: Grossly intact, nonfocal, moving all four extremities spontaneously. Recent Labs 09/15/1944909/14/191954 HGB 14.0 15.5 HCT 44.2 49.7* Recent Labs 09/15/1944909/14/191954 NA -- 140 K -- 3.8 CL -- 108* CO2 -- 20* BUN -- 11 CREATININE 0.84 0.65* GLUCOSE -- 238* CALCIUM -- 8.1* ASSESSMENT: Jahaira Montgomery is a 59 y.o. female 2 Days Post-Op s/p Lucy's reversal (h/o diverticulitis) and double J indwelling stent placement on right side due to distal ureteral distortion. Progressing appropriately, albeit more sore today. Will remove Pat, add Lido patches, increase tramadol range and encourage OOB. Will be ready for home when voiding, hydrating and ambulating with tolerable pain. PLAN BY SYSTEM N: Sched tylenol, gabapentin, toradol with prn tramadol. CV: Prior smoker, will continue ppx lovenox for 28d Pulm: encourage IS GI: Regular diet. Abdominal binder ordered for comfort/support /FE: Remove pat today. She had a temporary stent in place on the left and a double J indwelling stent in place that she will need removed at an outpatient visit in 4 weeks per urology. ID: [id number] Heme: Current smoker--lovenox ppx--will get today's dose at 1200 with teaching, SCDs Endo: On SSI, no insulin req. DISPO: Floor status. Anticipate home tomorrow Code status: Full Dani Ewing MD 09/16/2019 Colorectal Surgery p.[id number] Adwoa Krueger RN - 09/15/2019 3:21 PM EDT Pt arrived to unit from PACU. Pt A&O, VSS. Fingerstick was 111, no coverage needed. If no spikestomorrow, team will d/c order. Nurse to Nurse report rec'd from Fatemeh AVERY. Pt tolerating liquids and crackers. Mckenna Sandoval MD - 09/15/2019 10:07 AM EDT INPATIENT DAILY PROGRESS NOTE Patient Name: Jahaira Montgomery Patient Age: 59 y.o. Birthdate: 1960 Admit date: 09/14/2019 Attending Physician: Lanette Wiley MD ID: Jahaira Montgomery is a 59 y.o. female with a hx of diverticulitis s/p Lucy's now s/p Lucy's reversal with double J indwelling stent placement on right side due to distal ureteral distortion. Operations this Admission: - see above pocedure Recent events/symptoms: - She reports that she is still very tired this AM - She rports that her pain is well under control with her current pain medications - Is tolerating minimal PO intake (clear liquid diet), without nausea or emesis - Urine has been blood tinged overnight and this morning - she denies flatus or BM O: Last value Range last 24hrs Temperature Temp: 36.4 ??C (97.5 ??F) Temp: [36 ??C (96.8 ??F)-36.4 ??C (97.5 ??F)] Heart Rate Heart Rate: 76 Heart Rate: [59-80] Blood Pressure BP: 118/59 BP: (108-140)/(59-76) Respiratory Rate Resp: 16 Resp: [10-21] SpO2 SpO2: 92 % SpO2: [92 %-99 %] Body mass index is 39.86 kg/m??. 09/13 0701 - 09/14 0700 In: 3639 [P.O.:500; I.V.:3139] Out: 1420 [Urine:1220] Clear Liquid Intake/Output Summary (Last 24 hours) at 09/15/2019 1007 Last data filed at 09/15/2019 0600 Gross per 24 hour Intake 3639 ml Output 1420 ml Net 2219 ml Physical Exam: General: no distress, resting in bed, cooperative and pleasant HEENT: normocephalic, atraumatic, no scleral icterus CVS: regular rate Pulm: breathing comfortably on 2L NC, nonlabored Abd: soft, mild tenderness to palpation diffusely, non-distended, dressing in place over prior stomabetadine on dressing, midline incision with dressing in place without seepage or drainage Ext: warm and well perfused, no edema Neuro: Grossly intact, nonfocal, moving all four extremities spontaneously. Recent Labs 09/15/1944909/14/191954 HGB 14.0 15.5 HCT 44.2 49.7* Recent Labs 09/15/1944909/14/191954 NA -- 140 K -- 3.8 CL -- 108* CO2 -- 20* BUN -- 11 CREATININE 0.84 0.65* GLUCOSE -- 238* CALCIUM -- 8.1* ASSESSMENT: Jahaira Montgomery is a 59 y.o. female 1 Day Post-Op s/p Lucy's reversal with double J indwelling stent placement on right side due to distal ureteral distortion. Her pain has been well undercontrol. Her pat continues to have heme-tinged urine due to ureteral trauma during stenting, she had a temporary stent in place on the left and a double J indwelling stent in place that she will needremoved at an outpatient visit in 4 weeks per urology. Pat to continue until tomorrow. We will encourage increased PO intake, ambulation with PT. PLAN BY SYSTEM N: Sched tylenol, gabapentin, toradol with prn tramadol. CV: Prior smoker, will continue ppx lovenox for 28d Pulm: IS GI: Hx of diverticulitis with prior Rahman's procedure. Has not had significant PO intake, will continue clear liquid diet. Abdominal binder ordered for her use. /FE: Pat with heme-tinged urine due to ureteral trauma during stenting-- maintain pat. She hada temporary stent in place on the left and a double J indwelling stent in place that she will need removed at an outpatient visit in 4 weeks per urology. ID: [id number] Heme: Current smoker--lovenox ppx--will get today's dose at 1200 with teaching, SCDs Endo: No history of diagnosed DM, but post-op blood glucose was 238. Start ISS. DISPO: Floor, will need inpatient services for at least 24hours Code status: Full Mckenna Sandoval MD 09/15/2019 Colorectal Surgery p.[id number] Isaac Prado MD - 09/15/2019 9:15 AM EDT INPATIENT DAILY PROGRESS NOTE Patient Name: Jahaira Montgomery Patient Age: 59 y.o. Birthdate: 1960 Admit date: 09/14/2019 Attending Physician: Lanette Wiley MD ID: Jahaira Montgomery is a 59 y.o. female POD1 from Lucy's reversal. Required double J stent placement on right side due to distal ureteral distortion which precluded usual placement of 5F pollack catheter. Doing well today. Seen in PACU to discuss ureteral stent. O: Last value Range last 24hrs Temperature Temp: 36.4 ??C (97.5 ??F) Temp: [36 ??C (96.8 ??F)-36.4 ??C (97.5 ??F)] Heart Rate Heart Rate: 76 Heart Rate: [59-80] Blood Pressure BP: 118/59 BP: (108-140)/(59-76) Respiratory Rate Resp: 16 Resp: [10-21] SpO2 SpO2: 92 % SpO2: [92 %-99 %] 09/13 700 - 09/14 07 In: 3639 [P.O.:500; I.V.:3139] Out: 1420 [Urine:1220] Clear Liquid Physical Exam: General: NAD, : pat in place, clear urine output Recent Labs 09/15/1944909/14/191954 HGB 14.0 15.5 HCT 44.2 49.7* Recent Labs 09/15/1944909/14/191954 NA -- 140 K -- 3.8 CL -- 108* CO2 -- 20* BUN -- 11 CREATININE 0.84 0.65* GLUCOSE -- 238* CALCIUM -- 8.1* A/P: Discussed placement of stent with patient at bedside, what to expect with stent in place and plan for removal with urology in 1 month. Request placed for right side double J ureteral stent removal, appointment pending. Left temporary ureteral stent and pat catheter management per CRS. Please let urology know if any questions. Consult pager #[phone] Isaac Prado MD Associated attestation - Anil Power MD - 09/19/2019 8:22 AM EDT Attending Addendum I have seen the patient and reviewed the history and examination. I agree with the details as written. The assessment and plan were formulated in discussion with me and I agree with them as documented. I would add the following:Discussed the operative findings related to the right ureter, with the patient. Discussed that she had an indwelling stent and the importance off/u for removal in ~ 1 month. All questions answered. Sajan Taveras MD - 09/14/2019 11:26 PM EDT Post-Operative Check Jahaira Montgomery is a 59 y.o. female s/p Procedure(s): Lucy's reversal with cysto stents placed by urology S: No nausea/vomiting, chest pain, SOB, pain well controlled, offers no complaints. Was sleeping comfortably post-op. O: Temp: [36 ??C (96.8 ??F)-36.3 ??C (97.3 ??F)] Heart Rate: [62-80] Resp: [10-21] BP: (117-140)/(59-76) SpO2: [94 %-99 %] Heart Rate from SpO2: [62 bpm-80 bpm] I/O last 3 completed shifts: In: 2800 [I.V.:2800] Out: 800 [Urine:600; Blood:200] I/O this shift: In: 300 [P.O.:300] Out: - Recent Results (from the past 24 hour(s)) POCT Glucose Result Value Ref Range POC Glucose 115 65 - 199 mg/dL Basic Metabolic Panel (non-fasting) Result Value Ref Range Glucose Lvl 238 (H) 65 - 199 mg/dL BUN 11 8 - 18 mg/dL Creatinine 0.65 (L) 0.70 - 1.20 mg/dL Sodium 140 135 - 145 mmol/L Potassium 3.8 3.5 - 5.0 mmol/L Chloride 108 (H) 98 - 107 mmol/L CO2 20 (L) 22 - 31 mmol/L Anion Gap 12 5 - 15 mmol/L Calcium 8.1 (L) 8.5 - 10.5 mg/dL eGFR 99 >=60 mL/min/1.73 m?? eGFR 114 >=60 mL/min/1.73 m?? Hemoglobin and Hematocrit, blood Result Value Ref Range Hemoglobin 15.5 11.7 - 15.5 gm/dL Hematocrit 49.7 (H) 35.7 - 45.8 % Physical Exam Gen: A0x3, NAD, resting comfortably CVS: RRR, no murmurs/rubs/gallops Resp: CTAB, breathing comfortably on 2L NC Abd: soft, appropriately tender, nondistended; incisions are clean/dry/intact with overlying dressings : pat in place, blood-tinged urine in bag Ext: SCDs in place, WWP AP Jahaira Montgomery is a 59 y.o. female s/p Lucy's reversal currently in stable condition and recovering well - Clear Liquid - Pain well controlled - Hemodynamically stable, UOP adequate - Continue post operative plan per primary team Sajan Samayoa MD 09/14/2019 documented in this encounter H&P Notes Isaac Prado MD - 09/14/2019 12:41 PM EDT Patient Name: Jahaira Montgomery Patient Age: 59 y.o. Birthdate: 1960 Admit date: 09/14/2019 Attending Physician: Lanette Wiley MD Jahaira Montgomery is a 59 y.o. female with no past history who presents today for Lucy's reversal.Assistance requested from urology for temporary ureteral catheterization. Denies past hematuria, UTI, urinary frequency/urgency, malignancy or kidney stones. Gen: NAD CV: RRR P: CTAB No prior urine cultures on file. All risks, benefits and alternatives have been explained, patient wishes to proceed with scheduled procedure. Kendrick Camacho MD - 09/14/2019 11:57 AM EDT General Surgery Interval H&P HPI: Jahaira Montgomery is a 59 y.o. lady who underwent a Lucy's procedure for Hinchey 4 Diverticulitis on Mar 19, 2019. She now presents for Lucy's reversal. She was last seen in clinic on 09/06/19. Patient denies any interval changes in health. No recent fevers or infections. No new medications or medical diagnoses. O: Most Recent Vitals: 09/14/19 1042 BP: 140/71 Pulse: 59 Temp: 36.2 ??C (97.2 ??F) SpO2: 99% Physical Exam: General: NAD, resting comfortably, pleasant, conversant HEENT: NCAT, EOMI CVS: Regular rate Pulm: nonlabored breathing Abd: soft, nontender, nondistended, stoma bag in place Skin: warm, dry Ext: no cyanosis, cap refill <2sec Neuro: grossly intact, nonfocal, moving all four extremities spontaneously No results for input(s): WBC, HGB, HCT, PLATELET, PT, INR, PTT in the last 72 hours. No results for input(s): NA, K, CL, CO2, BUN, CREATININE, GLUCOSE, CALCIUM, MAGNESIUM, PHOS in the last 72 hours. ASSESSMENT/PLAN: Jahaira Montgomery is a 59 y.o. here for Lucy's reversal . A consent was signed in clinic, all questions were answered and the patient would like to proceed as planned. Kendrick Camacho MD documented in this encounter Miscellaneous Notes Plan of Care - Joshua Lewis, OT - 09/19/2019 11:18 AM EDT Occupational Therapy Treatment Note Treatment Number OT: 2 Patient Dx: Jahaira Montgomery??is a 59 y.o.??female??admitted on 09/14/2019??by Dr. 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 Social History: Patient lives with brother and his partner. Home Setup: No steps into the home and one level. Patient has a walk in shower with a seat. DME: shower seat Baseline ADL/Mobility: Patient independent ADLS and IADLS. Patient driving. ?? Precautions/Special Considerations: fall, skin breakdown, abdominal binder, abdominal incision ?? Interval History: Transfer to 3 W with some decrease in BP S: I am feeling better. O: Patient seen for skilled OT treatment, and demonstrated the following: ?? Self-care:Patient able to dress LB independently. Patient verbalized understanding on how to use AE for toileting. Patient able to stand at sink to perform grooming task independently. ?? Functional Mobility:Independent sit to/from stand with walker and Mod I mobilizing in room with walker. ?? Cognition: ?? Behavior / Mood: alert and cooperative ?? Alert and oriented to: person, place and time ?? Follows commands: 100% of the time ?? Attention: WFL ?? Safety awareness: WFL ?? Endurance:Good ?? Vitals: 61-71 bpm; 151/81 blood pressure; SO2 WFL ?? Strength/ROM:B UE WFL Pain: Patient reports minimal discomfort Education: Pt/family/caregiver education ongoing regarding: Role of occupational therapy/rehabilitation, Transfers, Assistive device/technique, Adaptive equipment training, ADL, Safety, Functional Mobility, Recommendations and Discharge planning. Staff Communication: Patient status, treatment, and mobility recommendations discussed with nursing/other staff. ASSESSMENT: Patient mobilizing with walker Mod I and able to perform ADLS Mod I with AE. Patient hasa very supportive family and able to return home. No further OT indicated. Anticipated Discharge Disposition: home with assist Equipment Recommendations: use shower chair and FWW Daily schedule / Staff Recommendations: continue encourage OOB for ADLS Goals: To be achieved by 09/28 (MET) Patient will stand at sink level with supervision x10 min for ADLs. Patient will dress lower body indep with adaptive equipment prn. Patient will perform simple kitchen mgt with appropriate assistive device as needed and supervision. Patient will ambulate to the bathroom with supervision, assistive device as needed. Patient will demonstrate energy conservation principals with all ADLs indep. ?? Therapy Frequency: monitor Total Evaluation Minutes, Occupational Therapy: 10 ADL training Pager: [phone] JOSHUA LEWIS OT Occupational Therapy Rehabilitation Department Med Student Progress Note - Niles Arellano - 09/19/2019 7:10 AM EDT Colorectal Surgery Inpatient Progress Note Patient Name: Jahaira DEMARCO; Age: 5 1960; 59 y.o. Room/Bed: [address] [place] [address] Today's Date: 09/19/19 ID: Jahaira Montgomery is a 59 y.o. 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 24 Hour Events/Subjective: - PT saw her yesterday initially had hypertension but when they returned thought home w/ assistance - no labetalol for hypertension o/n - incontinent of urine 1x o/n - was given external catheter to use - small BM o/n and 7x BM yesterday during the day - not diarrhea per pt - no blurry vision since Thursday (no PHILLIPS) Objective VS - (Temp: [36.8 ??C (98.2 ??F)-37.4 ??C (99.3 ??F)] ) Temp: 36.8 ??C (98.2 ??F), (Heart Rate: --) Heart Rate: 79, (BP: (169-179)/(79-93) ) BP: 171/79(recheck), (Resp: [16] ) Resp: 16, (SpO2: [93 %-97%] ) SpO2: 94 % Physical Exam Gen: NAD HEENT: NC/AT, EOMI CV : RRR Pulm: breathing comfortably, no respiratory distress Abd: non-distended, soft, tender on palpation, midline stapled wound CDI (slight separation of skin over pannus), old ostomy healing w/ minimal drainage, abdominal binder in place : not examined Ext: SCDs in place, minimal bilateral LE edema, warm lower extremities bilaterally Skin: warm, dry Drains: - NA 24 Hour I/O's: I/O last 3 completed shifts: In: 1900 [P.O.:1900] Out: 5375 [Urine:5375] Admit Weight: 91.6 kg Current Weight: Weight: 96 kg (211 lb 9.6 oz) Labs: No results for input(s): WBC, HGB, HCT, PLATELET, PT, INR, PTT in the last 72 hours. No results for input(s): NA, K, CL, CO2, BUN, CREATININE, GLUCOSE, CALCIUM, MAGNESIUM, PHOS in the last 72 hours. Micro: - NA New Imaging: - NA A/P: Jahaira Montgomery is a 59 y.o. 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 Jahaira is doing well this morning. She is having many small BM w/ no concern for c diff given lack ofdiarrhea. Continues to have hypertension in the 160-170s systolic but not receiving labetalol as written for >175 systolic. Amlodipine started over the weekend increased to 10mg daily today from 5mgdaily. Plan to dc later today w/ f/u for HTN this week at PCP. NEURO: - acetaminophen 1000mg q6h - ibuprofen 600mg q6h prn - lidocaine patches - tramadol 50g q6h prn CV: - hypertensive - no neurologic symptoms - amlodipine 10mg daily - labetalol 10mg q4h prn for SBP>175 - may repeat for 20mg total if inadequate response after 30min PULM: - encourage OOB/IS - PT saw her yesterday GI/FEN: - Regular diet RENAL: - UOP adequate ENDO: - no acute issues - outpt HbA1c recommended HEME: - DVT ppx with enoxaparin 40mg ID: - no acute issues WOUND: - abdominal binder given obesity and weak fascia w/ prior surgeries PPX: - IS, SCDs LINES: - PIV DISPO: - floor status - possible dc today - Full Code Niles Arellano 09/19/2019 Colorectal Surgery Team pager #[phone] Plan of Care - Juju Araya RN - 09/19/2019 4:22 AM EDT Problem: Patient Care Overview Goal: Plan of Care Review Outcome: Ongoing (Interventions Implemented as Appropriate) 09/17/19 0633 09/18/19 1930 Plan of Care Review Progress progress towards functional goals is fair -- Coping/Psychosocial Plan Of Care Reviewed With -- patient OUTCOME EVALUATION NOTE: OUTCOME SUMMARY: Patient A/Ox4, hypertensive, otherwise VSS. No PRN labetolol needed this shift. Patient denies pain this shift. Patient midline incision INSPECTOR DIALS with fara intact. ABD binder in place. Patient experiencing urgency and intermittent incontinence. Patient incontinent 1x this shift, incontinence care provided. Patient had small BM this shift. No acute events and patient rested between care, will continue to monitor. PLAN MOVING FORWARD: Monitor I/Os D/C planning INDIVIDUALIZED FALL PREVENTION INTERVENTIONS: Patient-specific fall risk factors per assessment: [current deficits]: abd discomfort, recent surgery, generalized weakness Assistance [level of assistance required for transfers and ambulation]: SBA w/ FWW Supervision [direct monitoring required during toileting and ADLs]: Hands on eyes on Surveillance [continuous indirect monitoring]: Masimo, hourly rounding, safety checks, nurse knowledge exchange CPG GOAL OUTCOME EVALUATION: Goal: Individualization & Mutuality Outcome: Ongoing (Interventions Implemented as Appropriate) 09/16/192037 Mutuality/Individual Preferences What Anxieties, Fears or Concerns Do You Have About Your Health or Care? none What Questions Do You Have About Your Health or Care? no What Information Would Help Us Give You More Personalized Care? no Goal: Fall Prevention-Safe Patient Handling Outcome: Ongoing (Interventions Implemented as Appropriate) 09/18/19 193 Restraint Interventions Safety Promotion/Fall Prevention activity supervised;nonskid shoes/slippers when out of bed;safety round/check completed Activity Activity Type activity adjusted per tolerance Activity Assistance Provided assistance, stand-by Assistive Device Utilized front-wheel walker Positioning Body Position independent Daily Care Interventions Self-Care Promotion independence encouraged Khan Fall Risk History of Falling 0 Secondary Diagnosis 15 Ambulatory Aids 15 Intravenous Therapy/Heparin/Saline Lock 20 Gait/Transferring 10 Mental Status 0 Score 60 OTHER Khan Fall Risk High Goal: Discharge Needs Assessment Outcome: Ongoing (Interventions Implemented as Appropriate) 09/16/19 1436 Discharge Needs Assessment Concerns To Be Addressed no discharge needs identified Readmission Within The Last 30 Days no previous admission in last 30 days Equipment Needed After Discharge walker, standard Discharge Disposition still a patient Activity/Self Care Review of Systems Equipment Currently Used at Home none Current Health Anticipated Changes Related to Illness none Living Environment Transportation Available car Goal: Interdisciplinary Rounds/Family Conf Outcome: Ongoing (Interventions Implemented as Appropriate) 09/16/19 1436 Interdisciplinary Rounds/Family Conf Participants patient;physician;nursing Plan of Care - Nikos Shin RN - 09/18/2019 7:22 PM EDT Problem: Patient Care Overview Goal: Plan of Care Review Outcome: Ongoing (Interventions Implemented as Appropriate) 09/17/19 0633 09/18/19 0930 Plan of Care Review Progress progress towards functional goals is fair -- Coping/Psychosocial Plan Of Care Reviewed With -- patient OUTCOME EVALUATION NOTE: OUTCOME SUMMARY: Patient alert and oriented x4 throughout shift. Pain managed with scheduled medications. Patient hypertensive in morning, team aware and managed with prn orders, see note. Patient continued to void andhave small bowel movements frequently during shift. Urine color improving but still has slight pink color. Bowel movements decreasing in size but maintaining consistency, team aware. Patient began having urgency incontinence in the afternoon and was crying saying she was embarrassed, comforted by staff and purewick put in place for urgency. Patient still agreed to get up to bathroom if time permits. Team aware of incontinence. Patient worked with PT in afternoon. Abdominal binder remains in place. Toradol discontinued, ibuprofen order put through. Patient safety maintained, will continue to monitor. PLAN MOVING FORWARD: Monitor BP. Ambulate if appropriate. Up to bathroom. Monitor urine color and BM size/consistency. Discharge planning. INDIVIDUALIZED FALL PREVENTION INTERVENTIONS: Patient-specific fall risk factors per assessment: [current deficits]: Impaired mobility. Hypertensive. IV beta blockers. Purewick. Assistance [level of assistance required for transfers and ambulation]: SBA with FWW. Supervision [direct monitoring required during toileting and ADLs]: Yes. Surveillance [continuous indirect monitoring]: Sonyaimo. Patient-specific fall prevention interventions for sensory deficits provided, if applicable: [X] No CPG GOAL OUTCOME EVALUATION: Ongoing. Plan of Care - Bill Wing PTA - 09/18/2019 4:23 PM EDT Physical Therapy Note Treatment Number PT: 2 Patient profile: Jahaira Montgomery is a 59 y.o. female admitted on 09/14/[address] 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 Recent events/symptoms: Per colorectal surg note 09/18/19: - No acute changes - Tolerating regular diet, multiple BM (she does not know consistency) - Episode of blurry vision when ambulating. SBP >190 on two occasions although not symptomatic during those episodes. Received labetalol overnight with improvement - She denies complaints this morning besides some sweats which she says are normal for her Social History: Home set-up: pt lives with her brother and his partner in a first floor unit in a house. She reportsthat her brother and sister in law live in the unit upstairs and that her sister in law can provide 24/7 assist as needed. Bathroom Set-up: walk in shower, seat Stairs: none Baseline Mobility: independent no AD Equipment at home: shower seat Fall history: pt reports no falls Precautions/Special Considerations: Full code, High risk for skin breakdown, At risk to fall, Vale precautions , Room air, (abdominal incision), abdominal binder Lines: Thom, PIV and Pat Activity Orders: [id number] Mobility and Positioning Recommendations: ?? Pt. to utilize FWW and 1 person assist for ambulation and transfers with nursing. ?? Please encourage up to chair for meal times as able. ?? Pt encouraged to ambulate frequently with staff, getting into the bathroom for toileting and walking out in the king >/= 3 times daily as able. Subjective: ???I feel fine. They've never told me that I have high blood pressure.?? Objective: Pain: Minimal c/o abdominal pain Vital Signs: BP standing at 0910 208/101. RN informed. Returned pt to supine in bed Returned this afternoon, BP taken at: Supine 166/88, HR 71 Short sit: 154/83, HR 80 Standin/99, HR 80 After walkin/119, HR 77 (RN informed all) Bed Mobility: Supine <> Sit: Supervision with HOB 30* Transfers: Sit <> Stand: Supervision with FWW Gait: Distance: 150' Device used: FWW Level of assist: Supervision Gait mechanics: reduced boom, step-length decreased (B) and swing-through gait Balance: Sitting Static: good Sitting Dynamic: good Standing Static: good Standing Dynamic / Gait: good Education: patient has been educated on Bed mobility, Transfers, Assistive device/technique, Breathing exercises, Positioning, Safety , Precautions/protocol, Equipment use, Gait , Activity pacing/Energy conservation, Role of therapy, Balance and Discharge planning and verbalizes understanding. Patient status, treatment, and mobility recommendations discussed with nursing. Assessment: Jahaira Montgomery was seen today for continued physical therapy treatment and assessment. Pt presented to physical therapy hemodynamically unstable with hypertension. Returned in the afternoon, and pt with improved BP. Pt asymptomatic throughout intervention. Pt mobilizing well with use of the FWW, and was able to safely negotiate a household distance. Anticipate pt will be able to return homewith assistance and VNA services pending medical readiness. Discharge Recommendations: Based on the current findings, Anticipated Discharge Disposition: home with home health, home with assist when medically ready for hospital discharge. Consult Recommendations: No other consults recommended at this time. Equipment needs: FWW Goals: To be achieved by September 23, 2019: all goals met 1. Pt. to perform bed mobility with modified independence. 2. Pt. to perform all transfers with supervision using LRAD. 3. Pt. to ambulate 100 feet with supervision using a LRAD. 4. Pt will tolerate progression towards upright with stable vital signs. Plan: Therapy Frequency: 2-4 times/wk for therapy including balance training, bed mobility training,gait training, home exercise program, patient/family education, range of motion, stair training, strengthening, stretching and transfer training. Patient/family understand and agree with plan as statedabove. Total Evaluation Minutes, Physical Therapy: 48(TEFx3 ([id number], [phone])) Bill Wing, EXPERIMENTAL ROCKET SLED MECHANIC Pager: [phone] Physical Therapy Inpatient Rehabilitation Department Initial Assessments - Kp Mccray RN - 09/18/2019 10:53 AM EDT Office of Care Management Assessment Medical record reviewed. Plan of care and patient status discussed with direct care RN and/or Care Team in multidisciplinary rounds. Screenin y.o. female here for diverticulitis. Present on Admission: ??? Diverticulitis Patient has not been admitted to a hospital within the last 30 days. Patient receiving hospital care under IPI- SDP Admission (IP) status. Admission order reviewed. Primary Insurance on file: MEDICAID [place] Secondary Insurance on file: None Primary care provider on file: Hanane Martinez MD [phone] Advance Directive on file and Code Status: Given [place] Advance Directive booklet: wishes to identify brother Solomon and rob Chavez as DPOAHs, Full Code Patient???s Functional Status: Stand by assist Living Situation: Lives with brothparvin Carbajal and lhfcea-yu-zce Kimberly who patient reports are supportive, independent in IADLs including driving, available to assist at home, and comfortable with doing wound care. [address] [facility] [address] Supports: Family Assessment: Patient with no apparent RNCM/SW needs at this time. No housing, transportation, insurance, resources concerns identified at this time. Supports in place to achieve a safe post-hospital transition. No identified barriers to accessing necessary care and/or follow-up after discharge. Plan: Patient to d/c to home via brother Solomon and femukx-il-ltp Kimberly's private vehicle when medically ready. capsule machine operator/Patient Care will continue to follow patient???s progress and remain available if situation changes for coordination of care, psychosocial support and/or discharge planning. Kp Mccray RN Pager [phone] Plan of Care - Hanane Lee RN - 09/18/2019 4:13 AM EDT Problem: Patient Care Overview Goal: Plan of Care Review Outcome: Ongoing (Interventions Implemented as Appropriate) 09/17/19 0633 09/17/19 2136 Plan of Care Review Progress progress towards functional goals is fair -- Coping/Psychosocial Plan Of Care Reviewed With -- patient OUTCOME EVALUATION NOTE: OUTCOME SUMMARY: Patient progressing towards d/c goals appropriately at this time. Patient's pain adequately controlled with scheduled pain medications and PRN, see MAR for medications given. Patient is alert and oriented x 4, VSS. Patient sleeping between care overnight. Ambulating to the bathroom frequently overnight, voiding adequately, pink urine, one stent remains in place. Abdominal binder in place, no new drainage. Fara intact to midline incision. Elevated BP at 0400 vitals, reported to nutrition helper MD, no symptoms reported. No other acute events overnight. Will continue to monitor. PLAN MOVING FORWARD: Pain control Mobilize IS D/c planning INDIVIDUALIZED FALL PREVENTION: Patient is currently a high risk to Fall. Patient educated on bed/chair alarm, demonstrates proper use of call glover and verbalizes understanding of fall preventions implemented. Patient-specific fall risk factors per assessment: [current deficits]: Recent surgery, Medications, Hospital Environment. Assistance [level of assistance required for transfers and ambulation]: Stand by assist with front wheel walker Supervision [direct monitoring required during toileting and ADLs]: Minimal assist with ADL's Surveillance [continuous indirect monitoring]: Masimo, Purposeful Rounding, Nurse Knowledge Exchange Patient-specific fall prevention interventions for sensory deficits provided, if applicable: Yes- glasses CPG GOAL OUTCOME EVALUATION: Plan of Care - Nikos Shin RN - 09/17/2019 7:53 PM EDT Problem: Patient Care Overview Goal: Plan of Care Review Outcome: Ongoing (Interventions Implemented as Appropriate) 09/17/19 0633 09/17/19 0906 Plan of Care Review Progress progress towards functional goals is fair -- Coping/Psychosocial Plan Of Care Reviewed With -- patient OUTCOME EVALUATION NOTE: OUTCOME SUMMARY: Patient alert and oriented x4 throughout shift. Pain managed with scheduled medications. Drainage toabdominal binder remained unchanged during shift. Incisions remain WDL. Patient up to bathroom for multiple bowel movements, remained small, loose and mucoid. Urine continues to have pink color. Patient had episode of dizziness, nausea and double vision with ambulating and became hypertensive, team aware and ordered labetalol which was effective, see previous note. Patient used bedpan for the rest ofshift after incident. Patient tolerating PO intake well. Patient safety maintained, will continue tomonitor. PLAN MOVING FORWARD: Monitor BP/manage HTN. Monitor BM. OOB if appropriate. Monitor abdominal drainage. Discharge planning (home on 09/18). INDIVIDUALIZED FALL PREVENTION INTERVENTIONS: Bed alarm. Rounding. Patient-specific fall risk factors per assessment: [current deficits]: Dizziness. Nausea. Generalized weakness. Assistance [level of assistance required for transfers and ambulation]: 1 assist with FWW. Supervision [direct monitoring required during toileting and ADLs]: Yes. Surveillance [continuous indirect monitoring]: Masimo. Patient-specific fall prevention interventions for sensory deficits provided, if applicable: [X] Yes CPG GOAL OUTCOME EVALUATION: Ongoing. Med Student Progress Note - Niles Arellano - 09/17/2019 8:27 AM EDT Colorectal Surgery Inpatient Progress Note Patient Name: Jahaira DEMARCO; Age: 5 1960; 59 y.o. Room/Bed: [address] [place], [place] [address]A Today's Date: 09/17/19 ID: Jahaira Montgomery is a 59 y.o. 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 24 Hour Events/Subjective: - has been having flatus and BM (small) - pt up to urinate - intermittent O2 via NC due to saturation in 90s Objective VS - (Temp: [36.6 ??C (97.9 ??F)-36.8 ??C (98.2 ??F)] ) Temp: 36.8 ??C (98.2 ??F), (Heart Rate: [73-79] ) Heart Rate: 79, (BP: (111-164)/(61-83) ) BP: 163/80, (Resp: [16-18] ) Resp: 16, (SpO2: [90 %-96%] ) SpO2: 94 % Physical Exam Gen: NAD HEENT: NC/AT, EOMI CV : RRR Pulm: breathing comfortably, no respiratory distress Abd: non-distended, soft, tender on palpation, midline stapled wound CDI (slight separation of skin over pannus), old ostomy healing w/ minimal drainage : not examined Ext: SCDs in place, no edema, warm lower extremities bilaterally Skin: warm, dry Drains: - NA 24 Hour I/O's: I/O last 3 completed shifts: In: 2170 [P.O.:1640; I.V.:530] Out: 2450 [Urine:2450] Admit Weight: 91.6 kg Current Weight: Weight: 96 kg (211 lb 9.6 oz) Labs: Recent Labs 09/15/19 0450 09/14/191954 HGB 14.0 15.5 HCT 44.2 49.7* Recent Labs 09/15/19 0450 09/14/191954 NA -- 140 K -- 3.8 CL -- 108* CO2 -- 20* BUN -- 11 CREATININE 0.84 0.65* GLUCOSE -- 238* CALCIUM -- 8.1* Micro: - NA New Imaging: - NA A/P: Jahaira Montgomery is a 59 y.o. 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 Jahaira is doing well this morning. She is having good flatus and beginning to have small BMs. Continue to monitor for pt tolerating regular diet. PT visit for possible dc tomorrow. NEURO: - acetaminophen 1000mg q6h - ketorolac 15mg IV 4x/day - lidocaine patches - tramadol 50g q6h prn CV: - hemodynamically stable PULM: - encourage OOB/IS GI/FEN: - Regular diet RENAL: - UOP adequate ENDO: - SSI w/ glucose checks - plan to dc as no requirement HEME: - DVT ppx with enoxaparin 40mg ID: - no acute issues WOUND: - dressing over ostomy changed on rounds - abdominal binder given obesity and weak fascia w/ prior surgeries PPX: - IS, SCDs LINES: - PIV DISPO: - floor status - possible dc tomorrow - Full Code Niles Priscilla 09/17/2019 Colorectal Surgery Team pager #[phone] Plan of Care - Shruthi Kang RN - 09/17/2019 6:42 AM EDT Problem: Patient Care Overview Goal: Plan of Care Review Outcome: Ongoing (Interventions Implemented as Appropriate) 09/17/19 0633 Plan of Care Review Progress progress towards functional goals is fair Coping/Psychosocial Plan Of Care Reviewed With patient OUTCOME EVALUATION NOTE: OUTCOME SUMMARY: Mrs Montgomery is alert and oriented and trying to become more mobile No extra pain meds given. Abd dressing with mod amt of sero-sang drainage. Her pain has been between 3-8/10. Slept in naps. Period of nausea. I thought she was going to vomit. But it quickly resolved. She experienced much less nausea. PLAN MOVING FORWARD: Pain management Mobilize Discharge planning INDIVIDUALIZED FALL PREVENTION INTERVENTIONS: Patient-specific fall risk factors per assessment: [current deficits]: IV pain meds, immobility, dizziness Assistance [level of assistance required for transfers and ambulation]: Assist with FWW. Supervision [direct monitoring required during toileting and ADLs]: Arms reach Surveillance [continuous indirect monitoring]: Purposeful rounding, call light in reach, room near nursejose e Patient-specific fall prevention interventions for sensory deficits provided, if applicable: [X] N/A CPG GOAL OUTCOME EVALUATION: Plan of Care - Nadir Fonseca - 09/16/2019 2:53 PM EDT Problem: Patient Care Overview Goal: Plan of Care Review Outcome: Ongoing (Interventions Implemented as Appropriate) 09/16/19 1436 Plan of Care Review Progress progress toward functional goals as expected Coping/Psychosocial Plan Of Care Reviewed With patient OUTCOME EVALUATION NOTE: OUTCOME SUMMARY: Patient progressing towards d/c goals appropriately at this time. Patient's pain adequately controlled with scheduled pain medications and PRN, See MAR. Pt ambulated in room and was up to chair with RNstaff today. Pt experiencing dizziness every time she walks, but pt's BP remained stable throughout shift. Team made aware. Pt passing flatus and had had one mucoidal stool that was bloody, team aware.Pat was removed today, and pt began voiding pink/red/yellow urine spontaneously. Will continue to monitor and help patient reach d/c goals. PLAN MOVING FORWARD: Pain control Mobilize Monitor I&O's and BM regimen Try and D/c planning INDIVIDUALIZED FALL PREVENTION: Patient is currently a high risk to Fall. Patient educated on bed/chair alarm, demonstrates proper use of call glover and verbalizes understanding of fall preventions implemented. Patient-specific fall risk factors per assessment: [current deficits]: Pain, Medications, Hospital Environment. Assistance [level of assistance required for transfers and ambulation]: 1 person assist w/ FWW when in room. Supervision [direct monitoring required during toileting and ADLs]: Hands on with ADL's Surveillance [continuous indirect monitoring]: Masimo, Purposeful Rounding, Nurse Knowledge Exchange Patient-specific fall prevention interventions for sensory deficits provided, if applicable: NA CPG GOAL OUTCOME EVALUATION: Goal: Fall Prevention-Safe Patient Handling Outcome: Ongoing (Interventions Implemented as Appropriate) 09/16/19 143 Restraint Interventions Safety Promotion/Fall Prevention activity supervised;fall prevention program maintained;nonskid shoes/slippers when out of bed;safety round/check completed Activity Activity Type activity adjusted per tolerance Activity Assistance Provided assistance, 1 person Assistive Device Utilized front-wheel walker Positioning Body Position independent Daily Care Interventions Self-Care Promotion independence encouraged;BADL personal routines maintained;BADL personal objects within reach Khan Fall Risk History of Falling 0 Secondary Diagnosis 15 Ambulatory Aids 15 Intravenous Therapy/Heparin/Saline Lock 20 Gait/Transferring 10 Mental Status 0 Score 60 OTHER Khan Fall Risk High Goal: Infection Control Outcome: Revised Date Met: 09/16/19 09/16/19 143 Safety Interventions Isolation Precautions standard precautions maintained Infection Prevention environmental surveillance performed Coping Strategies Supportive Measures active listening utilized;decision-making supported;self- care encouraged;self-responsibility promoted;verbalization of feelings encouraged Goal: Discharge Needs Assessment 09/16/191435 Discharge Needs Assessment Concerns To Be Addressed no discharge needs identified Readmission Within The Last 30 Days no previous admission in last 30 days Equipment Needed After Discharge walker, standard Discharge Disposition still a patient Activity/Self Care Review of Systems Equipment Currently Used at Home none Current Health Anticipated Changes Related to Illness none Living Environment Transportation Available car Goal: Interdisciplinary Rounds/Family Conf Outcome: Ongoing (Interventions Implemented as Appropriate) 09/16/19 1436 Interdisciplinary Rounds/Family Conf Participants patient;physician;nursing Plan of Care - Cindy Quinn RN - 09/16/2019 4:51 AM EDT Problem: Patient Care Overview Goal: Plan of Care Review Outcome: Ongoing (Interventions Implemented as Appropriate) 09/16/19 7798 Plan of Care Review Progress progress towards functional goals is fair Coping/Psychosocial Plan Of Care Reviewed With patient OUTCOME EVALUATION NOTE: OUTCOME SUMMARY: Patient A&O, BPs soft. Desat to 86% while sleeping, sating in high 90s% on 2L over night. Dressings to abdomen CDI, abdominal binder in place. Pain controlled with scheduled pain meds Pat draining light red urine. Will continue to monitor and help patient reach d/c goals. PLAN MOVING FORWARD: Monitor urine output Pain control Mobilize D/c planning INDIVIDUALIZED FALL PREVENTION: Patient is currently a high risk to fall. Patient educated on bed/chair alarm, demonstrates proper use of call glover and verbalizes understanding of fall preventions implemented. Patient-specific fall risk factors per assessment: [current deficits]: Pat, Pain, Medications, Hospital Environment. Assistance [level of assistance required for transfers and ambulation]: 1 assist with walker and chair follow Supervision [direct monitoring required during toileting and ADLs]: Independent with ADL's Surveillance [continuous indirect monitoring]: Bed alarm, Masimo, Purposeful Rounding, Nurse Knowledge Exchange Patient-specific fall prevention interventions for sensory deficits provided, if applicable: N/A CPG GOAL OUTCOME EVALUATION: Op Note - Lanette Wiley MD - 09/15/2019 1:11 PM EDT [facility] Operative Note Patient Name: Jahaira Montgomery : [id number] MR#: [id number] Case Date: 09/14/2019 Surgeon: Surgeon(s) and Role: Panel 1: * Lanette Wiley MD - Primary * Kendrick Camacho MD - Resident Panel 2: * Anil Power MD - Primary * Isaac Prado MD - Resident Preoperative diagnosis: DIVERTICULITIS Postoperative diagnosis: DIVERTICULITIS Procedure(s) (LRB): @CLOSE ENTEROSTOMY, LG,SM INTESTINE, W\RESECT COLORECTAL ANAST. (WRVU 27.9) (N/A) SIGMOIDOSCOPY, FLEXIBLE W/WO SPECIMEN BY BRUSHING OR WASHING (WRVU 0.84) (N/A) CYSTO, STENT PLACEMENT INTRAOP, TEMPORARY (WRVU 2.82) (Right) @OMENTAL FLAP, INTRA-ABDOMINAL (WRVU 6.54) @MOBILIZATION OF SPLENIC FLEXURE (WRVU 2.23) (N/A) Anesthesia: General Estimated Blood Loss: 200 mL Specimens removed during surgery: Order Name Source Comment Collection Info Order Time SPECIMEN TO PATHOLOGY OR [id number] DIVERTICULITIS rectosigmoid junction excision No 09/14/2019 4:13 PM Number of tissue samples (in container) 1 Time specimen removed from patient: 4:12 PM Biospecimen to store? No SPECIMEN TO PATHOLOGY [id number] DIVERTICULITIS Prior Colostomy Site excision No 09/14/2019 4:31 PM Time specimen removed from patient: 4:29 PM Number of tissue samples (in container) 1 Biospecimen to store? No SPECIMEN TO PATHOLOGY DIVERTICULITIS EEA DONUTS excision No 09/14/2019 5:36 PM Time specimen removed from patient: 5:35 PM Number of tissue samples (in container) 1 Biospecimen to store? No Drains: * No LDAs found * Surgical Closure: Primary Closure - skin incision is completely closed without any wires, piotr, drains or other devices Disposition: awakened from anesthesia, extubated and taken to the recovery room in a stable condition, having suffered no apparent untoward event. Condition: doing well without problems (Please see the Surgical Encounter Summary for any Implant and Specimen details pertinent to this patient.) HPI/Surgical Indications: Cory Montgomery is a 59-year-old woman with a history of Hinchey 4 diverticulitis status post Lucy's procedure on March 19, 2019 at an outside hospital. She desires colostomy reversal. She has a colonoscopy which shows scattered diverticula in the descending colon and a healthy appearing rectum. There were no polyps identified. Jahaira has a likely parastomal hernia. She continues to smoke. She reports she is cutting back and plans to use her surgery and time in the hospital as a way for her to quit smoking but declines referral to our smoking cessation program. ?? I discussed with Ms. Montgomery the risks [...] do this until her colostomy is reversed. ?? We specifically discussed risks and benefits of [...] is a relatively diffuse process for her. ?? Jahaira wishes to proceed with surgery. Given the potential for an ileostomy and the issues she has had with her colostomy, I have asked our stoma team to evaluate her for marking for a possible loop ileostomy as I worry she would have more peristomal skin issues if the ileostomy is made at the site of her current colostomy. Procedure Description: Ms. Montgomery was brought to the operating room and placed in the supine position on the operating room table. General anesthesia was induced without difficulty. Bilateral tap blocks were performed by the anesthesia block team for perioperative antibiotics. The patient was positioned in the low lithotomy position with the right arm tucked. A timeout was called with urology confirming the patient procedures to be performed. She received levofloxacin and Flagyl for perioperative antibiotics and 5000 units of subcu heparin and SCDs for DVT prophylaxis. Urology performed their portion of the procedure and this will be dictated separately. In brief, a kink was noted in the right ureter at the time of stent placement. A double-J stent was placed on the right side while a temporary Pollick stent was placed on the left side. A Pat catheter was placed by urology. The abdomen was then prepped with ChloraPrep and sterilely draped. We began by making a midline incision through the patient's previous midline laparotomy. There was alarge hernia that encompassed the midline incision with no appreciable fascia between the midline and the colostomy site. We lysed adhesions for approximately 2 hours until we could run the small intestine from the ligament of Treitz to the ileocecal valve. A Bookwalter was used for retraction. We didnot initially place the wound protector due to the colostomy. We were able to identify the rectal stump which had a small abscess cavity filled with fibrinous material at the top of the rectal stump. The rectum was mobilized posteriorly by identifying the superior hemorrhoidal artery and entering into the presacral space. We incised the peritoneum on either side of the rectum and then carried this anterior. A dilator in the vagina was used to identify the vagina and protect it during the dissection off of the rectal stump. We selected a transection several centimeters below the prior staple line where the rectum appeared healthy. A window was made in the mesentery and the mesentery was divided using the LigaSure device. We stapled with a 60 mm blue TX stapler and additional portion the rectum and sigmoid colon was passed off including the small abscess cavity. The colostomy was mobilized circumferentially and brought into the abdomen. An extra extra-large Ganesh wound protector was placed and the Bookwalter was repositioned. We took down the splenic flexure under direct vision. An omental flap was developed based on the right gastroepiploic artery. We excised the colostomy site as this bowel was not healthy in appearance. We had ample length for a tension free side to end colorectal anastomosis which was performed with a 28 mm EEA stapler. The anvil was brought out through the tinea and a 2-0 Prolene was used as a pursestring. The open end of the colon was closed with additional fire of the TX 60 stapler. The stapler was then advanced without difficultyto the top of the rectal stump. The spike was brought out through the transverse staple line and theanvil and spike were coupled under direct vision ensuring proper orientation. The stapler was closedand fired without difficulty. There were 2 complete donuts. Flexible sigmoidoscopy showed no evidence of leak and intact staple line that was nonbleeding. The omental flap was placed between the colorectal anastomosis of the vaginal cuff.. We irrigated with sterile saline while our counts were completed and these were correct. We excised the hernia sac and delineated the fascia in the area of the colostomy. More inferior, the patient had a prior mesh hernia repair and the mesh was well incorporated in the soft tissues. We switched to a closing Hamilton tray. The fascia was closed using #1 non-looped PDS in a simple running fashion. The subcutaneous tissues were irrigated with Irrisept and then sterile saline. The midlineincision was closed using fara and the colostomy site was closed with a 3-0 Vicryl pursestring suture and packed with a single Betadine soaked gauze 4x4. The patient was then returned to the supine position on the operating room table. She was awoken from general anesthesia and extubated in the operating room without difficulty. All counts were correct the end of the case. The left, temporary ureteral stent, was removed by the colorectal team at the end of case. The right, indwelling double- J stent, will be removed in approximately 4 weeks by the urology team. Infection Bundle used? Yes Infection present at time of surgery? Yes. Abscess present Chlorhexidine bathing night and morning before surgery: Yes Chlorhexidine wipes in Same Day prior to surgery: Yes Mechanical bowel prep: Yes Oral antibiotic prep: Yes, Flagyl + Neomycin Fingerstick glucose checked in Same Day: Yes Chlorhexidine-alcohol skin prep: Yes Pre-op IV antibiotics: Levofloxacin plus metronidazole Wound protector used: Yes Chlorhexidine (Irrisept) Wound Irrigation: Yes Sterile closure tray: Yes New suction/cautery for closure: Yes Gown and glove change for closure: Yes Re-draping for closure: Yes Attestation: Case Date: 09/14/2019 I was present and I participated during the entire procedure (does not need to include opening and closing). Lanette Wiley MD 09/15/2019 Plan of Care - Joshua Lewis OT - 09/15/2019 11:52 AM EDT Occupational Therapy Evaluation Patient profile: Jahaira Montgomery is a 59 y.o. female admitted on 09/14/[address] Lanette Wiley MD tobacco use, obesity,??umbilical hernia repair, hysterectomy, lap hattie 1995,??diverticulitis s/p rahman's procedure 03/2019 for hinchey 4 disease??now??1 Day Post-Op??s/p rahman's reversal w/ left ureteral stent removed post procedure and right JJ ureteral stent left in place. Past Medical History: Diagnosis Date ??? Chronic pain Chronic bilat knee (ACL) pain ??? Claudication left leg no acl right leg torn acl ??? Diverticulitis ??? Syncope fainted 10 years ago from heat Past Surgical History: Procedure Laterality Date ??? COLON SURGERY 03/19/2019 Open Lucy's ??? HERNIA REPAIR open umbilical x2 ??? HYSTERECTOMY ??? PRO COLONOSCOPY, DIAGNOSTIC N/A 08/18/2019 COLONOSCOPY, DIAGNOSTIC performed by Emigdio Lanier MD at [facility] ??? TUBAL LIGATION Social History: Patient lives with brother and his partner. Home Setup: No steps into the home and one level. Patient has a walk in shower with a seat. DME: shower seat Baseline ADL/Mobility: Patient independent ADLS and IADLS. Patient driving. Precautions/Special Considerations: fall, skin breakdown, abdominal binder, abdominal incision Subjective: I am dizzy. Objective: Seen today for OT evaluation with PT. Cognitive Status/Behavior: ?? Behavior / Mood: alert and cooperative ?? Alert and oriented to: person, place and time ?? Follows commands: 100% of the time ?? Attention: WFL ?? Safety awareness: WFL Communication: WFL Range of motion, strength, coordination: Hand dominance: right Bilateral UEs are within functional limitations Sensation: Appears intact Activities of Daily Living: Dressing: Patient unable to reach B LE due to increased pain and dizziness (maximal assistance for LB dressing/bathing) Functional Mobility: Supine to sit: Minimal assistance x2 with HOB fully elevated Sit to stand: Minimal assistance x2 Ambulation: Minimal assistance with walker and chair follow Stand to sit: Minimal assistance x2 Sit to supine: Moderate assistance with HOB full elevated Balance: Sitting balance: Good Standing balance:Fair with walker Vitals: At Rest With Activity SpO2 (RA) 95% 95% BP 109/62 99/73 HR 73bpm 98bpm ?? Pain: 7/10 in abdominal area with supine to sit and certain movements; patient with no pain at rest Skin: incision Education: patient have been educated on Role of occupational therapy/rehabilitation, Transfers, Positioning, Safety, Functional Mobility, Recommendations and Discharge planning and needs reinforcement. understanding. Patient status, treatment, and mobility recommendations discussed with nursing. Assessment: Pt has been seen for occupational therapy evaluation. Jahaira Montgomery presents with the following performance skill deficits and client factors: increased pain, decreased activity tolerance, decreased flexibility/ROM, decreased strength, decreased sitting/standing balance, deconditioning and compromised mobility status. These performance deficits have led to activity limitations and participation restrictions in the following areas of occupation: dressing, bathing, toileting, home management, leisure, driving and community mobility. Patient tolerating limited activity after recent surgery and with increased pain. Patient currently needs minimal assistance for mobility and chair follow due to lower SBP. Pt would benefit from further inpatient OT interventions to address performance deficits and maximize participation and independence with occupations of daily living. Equipment needs at discharge: FWW Anticipated Discharge Disposition: home with assist, home with home health Other Recommendations: ?? Utilize upright chair position using bed features or transfer to recliner chair as appropriate with Minimal assistance with walker, ambulate as tolerated ?? Encourage participation in ADL's by providing set up A on tray table and physical assist only as needed Other Recommendations: No other consults recommended at this time Goals: To be achieved by 09/28. Patient will stand at sink level with supervision x10 min for ADLs. Patient will dress lower body indep with adaptive equipment prn. Patient will perform simple kitchen mgt with appropriate assistive device as needed and supervision. Patient will ambulate to the bathroom with supervision, assistive device as needed. Patient will demonstrate energy conservation principals with all ADLs indep. Plan: OT: Therapy Frequency: -3 times/wk Planned OT interventions: Role of occupational therapy/rehabilitation, Transfers, Assistive device/technique, Adaptive equipment training, ADL, Breathing exercises, Safety, Functional Mobility, Activity pacing/Energy conservation, Home Management, Balance and Recommendations. Total Evaluation Minutes, Occupational Therapy: 37 2016 OT Evaluation Code Rationale: ?? Diagnosis & Pertinent Co-Morbidities affecting Plan of Care: see PMHx ?? Occupational Profile & Client History: Brief Expanded Extensive x ?? Assessment of Occupational Performance: 1-3 performance deficits 3-5 performance deficits 5 + performance deficits x ?? Clinical Decision Making: Low Moderate High x Clinical decision making of moderate complexity using standardized patient assessment instrument andmeasurable assessment of functional outcome. Pager: [phone] JOSHUA LEWIS OT 09/15/2019 Occupational Therapy Rehabilitation Department Plan of Care - Patricia Rosas, PT - 09/15/2019 11:32 AM EDT Physical Therapy Evaluation Patient profile: Jahaira Montgomery is a 59 y.o. female admitted on 09/14/[address] 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 Patient with the following active problems: Past Medical History: Diagnosis Date ??? Chronic pain Chronic bilat knee (ACL) pain ??? Claudication left leg no acl right leg torn acl ??? Diverticulitis ??? Syncope fainted 10 years ago from heat Past Surgical History: Procedure Laterality Date ??? COLON SURGERY 03/19/2019 Open Lucy's ??? HERNIA REPAIR open umbilical x2 ??? HYSTERECTOMY ??? PRO COLONOSCOPY, DIAGNOSTIC N/A 08/18/2019 COLONOSCOPY, DIAGNOSTIC performed by Emigdio Lanier MD at [facility] ??? TUBAL LIGATION Social History: Home set-up: pt lives with her brother and his partner in a first floor unit in a house. She reportsthat her brother and sister in law live in the unit upstairs and that her sister in law can provide 24/7 assist as needed. Bathroom Set-up: walk in shower, seat Stairs: none Baseline Mobility: independent no AD Equipment at home: shower seat Fall history: pt reports no falls Precautions/Special Considerations: Full code, High risk for skin breakdown, At risk to fall, Vale precautions , Room air, (abdominal incision), abdominal binder Lines: Thom, PIV and Pat Activity Orders: Dvvwehya4a/day Mobility and Positioning Recommendations: ?? Pt. to utilize FWW and 1 person assist +1 person chair follow for ambulation and transfers with nursing. ?? Please encourage up to chair for meal times as able. ?? Pt encouraged to ambulate frequently with staff, getting into the bathroom for toileting and walking out in the king >/= 3 times daily as able. Subjective: ???I feel really dizzy.?? Objective: Pt seen for evaluation today. Pain: Number Location At rest 0/10 N/A With activity 7/10 Abdomen Vital Signs: At Rest With Activity SpO2 (RA) 95% 95% BP 109/62 99/73 HR 73bpm 98bpm Skin: incision covered with bandage, CDI Musculoskeletal: ROM: BLE grossly WFL, trunk ROM limited by pain Strength: BLE grossly WFL Sensation: pt reported no N/T Bed Mobility: Supine to Sit: min assistx2 with HOB fully elevated Sit to Supine: mod assistx2 with use of HOB features Transfers: Sit to Stand: CGA/min assistx1-2 with FWW Stand to Sit: CGA/min assistx1-2 with FWW Gait: Distance: 20' Device used: FWW Level of assist: CGAx1 (required min/mod as she progressed - pt reported dizziness orthostatic) Gait mechanics: reduced boom, step-length decreased (B) and swing-through gait Stairs: NT Balance: Sitting Static: good Sitting Dynamic: fair Standing Static: good/fair Standing Dynamic / Gait: fair Therapeutic Exercise: Pt educated on the importance of getting OOB, ambulating in hallway with staff as able, and sitting upright in chair frequently throughout the day. Pt verbalized understanding. Education: patient has been educated on Bed mobility, Transfers, Assistive device/technique, Breathing exercises, Positioning, Safety , Precautions/protocol, Equipment use, Gait , Activity pacing/Energy conservation, Role of therapy, Balance and Discharge planning and verbalizes understanding. Patient status, treatment, and mobility recommendations discussed with nursing. Pt left long sitting in bed, with all needs met and with call glover in reach RN updated following visit. Assessment: Jahaira Montgomery was seen today for physical therapy evaluation. Pt initially reclined in bed, agreeable to participate. Pt presents with the following impairments/limitations: aerobic capacity/endurance, ergonomics and body mechanics, gait, locomotion, and balance, integumentary integrity , muscle performance, posture and ROM (range of motion). Pt reports they were independent at baseline. Pt limited this date by dizziness, pain, decreased trunk ROM and orthostatics. Pt able to come to EOB with increased time and HOB fully elevated (1-2 assist). Pt performed transfers and gait with FWW andCGAx1, yet became increasingly dizzy requiring immediate seated rest break (BP taken see above). Pt assisted back to bed and educated on the importance of sitting upright as able and mobilizing with staff as able. Pt verbalized understanding. Anticipate pt will be able to d/c home with assist and homehealth when medically ready pending progress made while here. PT will continue to work with pt whilehere and update d/c recs as appropriate. Anticipate pt may need FWW prior to d/c. The pt would benefit from skilled therapy services while in the hospital to maximize functional abilities and independency. Discharge Recommendations: Based on the current findings, Anticipated Discharge Disposition: home with assist, home with home health(pending progress) when medically ready for hospital discharge. Consult Recommendations: No other consults recommended at this time. Equipment needs: FWW Goals: To be achieved by September 23, 2019: 1. Pt. to perform bed mobility with modified independence. 2. Pt. to perform all transfers with supervision using LRAD. 3. Pt. to ambulate 100 feet with supervision using a LRAD. 4. Pt will tolerate progression towards upright with stable vital signs. Plan: Therapy Frequency: 2-4 times/wk for therapy including balance training, bed mobility training,gait training, home exercise program, patient/family education, range of motion, stair training, strengthening, stretching and transfer training. Patient/family understand and agree with plan as statedabove. 2017 PT Evaluation Code Rationale: ?? Diagnosis & Pertinent Co-Morbidities, personal factors, and present illness affecting Plan ofCare: (see above); Additional personal factors or co- morbidities that impact plan: ?? Total # of Factors: 0 1-2 3+ X ?? Examination of body system impairments, functional limitations and behaviors, and/or participation restrictions (Cardiovascular, Integumentary, Muscular, Nervous, Respiratory and Skeletal) Addressing 1-2 elements Addressing 3 + elements Addressing 4 + elements X ?? Clinical presentation: See assessment above. Orthostatic, dizzy, unable to progress Stable/Uncomplicated Evolving/Fluctuating Symptoms Unstable/Unpredictable X ?? Clinical decision making of high complexity based on pt's functional performance as outlined in this evaluation. Time IN / OUT: 1045 - 1132 Total Evaluation Minutes, Physical Therapy: 47(eval) Patricia Rosas PT, DPT Pager: [phone] Physical Therapy Inpatient Rehabilitation Department Med Student Progress Note - Niles Arellano - 09/15/2019 7:00 AM EDT Colorectal Surgery Inpatient Progress Note Patient Name: Jahaira Montgomery ; Age: 5 1960; 59 y.o. Room/Bed: [facility] Today's Date: 09/15/19 ID: Jahaira Montgomery is a 59 y.o. 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 24 Hour Events/Subjective: - no flatus or BM - no N/V - resting o/n but in PACU so difficult sleep at times - received tramadol for pain 1x this morning Objective VS - (Temp: [36 ??C (96.8 ??F)-36.4 ??C (97.5 ??F)] ) Temp: 36.4 ??C (97.5 ??F), (Heart Rate: [62-80] ) Heart Rate: 76, (BP: (108-120)/(59-61) ) BP: 118/59, (Resp: [10-21] ) Resp: 16, (SpO2: [92 %-99 %] ) SpO2: 92 % Physical Exam Gen: NAD HEENT: NC/AT, EOMI CV : RRR Pulm: breathing comfortably, no respiratory distress, CTAB Abd: non-distended, soft, tender on palpation, midline stapled wound covered this morning, old ostomy site packed w/ a gauze and covered this morning : not examined Ext: SCDs in place, no edema, warm lower extremities bilaterally Skin: warm, dry Drains: - NA 24 Hour I/O's: I/O last 3 completed shifts: In: 3639 [P.O.:500; I.V.:3139] Out: 1420 [Urine:1220; Blood:200] Admit Weight: 91.6 kg Current Weight: Weight: 91.6 kg (201 lb 15.1 oz) Labs: Recent Labs 09/15/19 0450 09/14/191954 HGB 14.0 15.5 HCT 44.2 49.7* Recent Labs 09/15/19 0450 09/14/191954 NA -- 140 K -- 3.8 CL -- 108* CO2 -- 20* BUN -- 11 CREATININE 0.84 0.65* GLUCOSE -- 238* CALCIUM -- 8.1* Micro: - NA New Imaging: - NA A/P: Jahaira Montgomery is a 59 y.o. 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 Jahaira is doing well this morning. She was on O2 NC o/n but tolerating being off O2 this morning. Herfoley bag has bloody urine which we will monitor given ureteral injury during stenting of kinked ureter on the R side. Hemoglobin is down 1.5 gm/dL and creatinine up about 0.2 from yesterday. Neither are concerning given her clinical status - encourage fluid intake for creatinine bump. Postop glucose was 238 yesterday and given her obesity we will add SSI and recheck. More likely glucose is post operative hyperglycemia. NEURO: - acetaminophen 1000mg q6h - gabapentin 300mg TID - ketorolac 15mg IV 4x/day and then change in ibuprofen if still inpt in 3-4 days - tramadol 50g q6h prn CV: - hemodynamically stable PULM: - encourage OOB/IS GI/FEN: - Clear Liquid - ondansetron 8mg q8h for today but dc this evening RENAL: - UOP adequate (pat in place at least 1 more day) - schedule urology f/u for stent removal ENDO: - SSI w/ glucose checks HEME: - DVT ppx with enoxaparin 40mg (teaching today) ID: - no acute issues WOUND: - dressing change tomorrow w/ wound check - abdominal binder given obesity and weak fascia w/ prior surgeries PPX: - IS, SCDs LINES: - PIV DISPO: - floor status - Full Code Niles Arellano 09/15/2019 Colorectal Surgery Team pager #[phone] Plan of Care - Mark Min RN - 09/15/2019 6:00 AM EDT Problem: Patient Care Overview Goal: Plan of Care Review Outcome: Ongoing (Interventions Implemented as Appropriate) 09/14/19219909/15/19 0553 Plan of Care Review Progress -- improving Coping/Psychosocial Plan Of Care Reviewed With patient -- OUTCOME EVALUATION NOTE: OUTCOME SUMMARY: Pt A+Ox4, off of 2L NC now on RA, regular heart rhythm, VSS, border in PACU overnight. Midline incision dressing CDI. Lower left old ostomy site dressing has dried drainage (marked). Pat catheter drained serosanguinous urine overnight, starting to clear in color. Catheter flushed as needed to keep pa tent. Pt on ERS protocol. Pain originally was bladder fullness which improved after catheter was flushed intermittently, pain this morning is at her midline abdominal site, PRN pain medication given. Colorectal team has been in to see pt. Insulin sliding scale added by team. PLAN MOVING FORWARD: Move to the floor. INDIVIDUALIZED FALL PREVENTION INTERVENTIONS: Patient-specific fall risk factors per assessment: [current deficits]: Generalized weakness. Post op. Assistance [level of assistance required for transfers and ambulation]: x1 w/W. Supervision [direct monitoring required during toileting and ADLs]: x1 w/W. Surveillance [continuous indirect monitoring]: Hourly rounding. Patient-specific fall prevention interventions for sensory deficits provided, if applicable: Yes. Assistance with ADLs. CPG GOAL OUTCOME EVALUATION: Goal: Fall Prevention-Safe Patient Handling 09/14/19192009/14/192199 Khan Fall Risk History of Falling -- 0 Secondary Diagnosis -- 15 Ambulatory Aids -- 0 Intravenous Therapy/Heparin/Saline Lock -- 20 Gait/Transferring -- 10 Mental Status -- 0 Score -- 45 OTHER Khan Fall Risk -- High Restraint Interventions Safety Promotion/Fall Prevention -- activity supervised Positioning Body Position supine, head elevated -- Goal: Infection Control 09/14/192199 Safety Interventions Isolation Precautions standard precautions maintained Infection Prevention environmental surveillance performed Coping Strategies Supportive Measures active listening utilized;counseling provided;decision- making supported;goal setting facilitated;positive reinforcement provided;problem solving facilitated;relaxation techniques promoted;self-care encouraged;self-reflection promoted;self-responsibility promoted;verbalization of feelings encouraged Goal: Discharge Needs Assessment 09/15/19 05 Discharge Needs Assessment Concerns To Be Addressed no discharge needs identified Goal: Interdisciplinary Rounds/Family Conf 09/15/19 05 Interdisciplinary Rounds/Family Conf Participants patient;physician;nursing Brief Op Note - Lanette Wiley MD - 09/14/2019 7:14 PM EDT Brief Operative Note Patient Name: Jahaira Montgomery : [id number] MR#: [id number] Case Date: 09/14/2019 Surgeon: Surgeon(s) and Role: Panel 1: * Lanette Wiley MD - Primary * Kendrick Camacho MD - Resident Panel 2: * Anil Power MD - Primary * Isaac Prado MD - Resident Preoperative diagnosis: DIVERTICULITIS Postoperative diagnosis: DIVERTICULITIS Procedure(s) (LRB): @CLOSE ENTEROSTOMY, LG,SM INTESTINE, W\RESECT COLORECTAL ANAST. (WRVU 27.9) (N/A) SIGMOIDOSCOPY, FLEXIBLE W/WO SPECIMEN BY BRUSHING OR WASHING (WRVU 0.84) (N/A) CYSTO, STENT PLACEMENT INTRAOP, TEMPORARY (WRVU 2.82) (Right) @OMENTAL FLAP, INTRA-ABDOMINAL (WRVU 6.54) @MOBILIZATION OF SPLENIC FLEXURE (WRVU 2.23) (N/A) Anesthesia: General Findings: Lucy's pouch identified. The descending colostomy taken down and the colon was mobilized, including take down of the splenic flexure. A side to end anastomosis created with a 28mm EEA. Negative air leak test. 2 complete donuts Complications: none apparent Estimated Blood Loss: 200 mL Specimens removed during surgery: Order Name Source Comment Collection Info Order Time SPECIMEN TO PATHOLOGY [place] 28 [id number] DIVERTICULITIS rectosigmoid junction excision No 09/14/2019 4:13 PM Number of tissue samples (in container) 1 Time specimen removed from patient: 4:12 PM Biospecimen to store? No SPECIMEN TO PATHOLOGY OR28 [id number] DIVERTICULITIS Prior Colostomy Site excision No 09/14/2019 4:31 PM Time specimen removed from patient: 4:29 PM Number of tissue samples (in container) 1 Biospecimen to store? No SPECIMEN TO PATHOLOGY DIVERTICULITIS EEA DONUTS excision No 09/14/2019 5:36 PM Time specimen removed from patient: 5:35 PM Number of tissue samples (in container) 1 Biospecimen to store? No PATHOLOGY ORDER UPDATE 09/14/2019 6:37 PM Additional information: Additional Info Enter requested changes: PRIOR COLOSTOMY SITE AND ADDITIONAL DESCENDING COLON eD-H Order Id number [id number] Fluids: Intraprocedure Crystalloid Total None PRBCs: none (See Anesthesia Record/Report for Other Blood Products) Urine Output: 600 mL Drains: Pat. There is also an indwelling right double J stent Disposition: awakened from anesthesia, extubated and taken to the recovery room in a stable condition, having suffered no apparent untoward event. Condition: doing well without problems (Please see the Surgical Encounter Summary for any Implant and Specimen details pertinent to this patient.) Op Note - Isaac Prado MD - 09/14/2019 2:39 PM EDT [facility] Operative Note Patient Name: Jahaira Montgomery : [id number] MR#: [id number] Case Date: 09/14/2019 Surgeon: Surgeon(s) and Role: Panel 1: * Lanette Wiley MD - Primary * Kendrick Camacho MD - Resident Panel 2: * Anil Power MD - Primary * Isaac Prado MD - Resident Preoperative diagnosis: DIVERTICULITIS Postoperative diagnosis: DIVERTICULITIS Procedure(s) (LRB): @CLOSURE OF ENTEROSTOMY, RESECTION & ANASTOMOSIS OTHER THAN COLORECTAL (WRVU 17.28) (N/A) SIGMOIDOSCOPY, FLEXIBLE W/WO SPECIMEN BY BRUSHING OR WASHING (WRVU 0.84) (N/A) CYSTO, STENT PLACEMENT INTRAOP, TEMPORARY (WRVU 2.82) (Right) Findings: left side 5F open ended ureteral catheter placed without difficulty, right side ureteral kink seen on retrograde, 4.8F double J ureteral stent placed on right side. Anesthesia: General Estimated Blood Loss: 2cc for urology portion Specimens removed during surgery: None Drains: Right 4.8F double J ureteral stent. Left 5F open ended ureteral catheter. 16F silicone foleycatheter with left ureteral catheter threaded in. Surgical Closure: N/A Disposition: Under general anesthesia ?? Condition: Case turned to colorectal for remainder of procedure (Please see the Surgical Encounter Summary for any Implant and Specimen details pertinent to this patient.) HPI/Surgical Indications: temporary ureteral catheters requested by colorectal for lucy's reversal procedure. ? Procedure Description: The patient was identified in the pre-operative holding area. Consent was verified. No site marking needed for urology portion of procedure as procedure was bilateral. The patient was taken to the operating room and placed supine on the operating table. General anesthesia was induced. The patient was then moved to the lithotomy position and prepped and draped in the usual sterile fashion. A timeout was performed involving all members of the OR team confirming the patient's identity and planned procedure. Preoperative antibiotics were administered. A 22 Fr rigid cystoscope was inserted into the bladder. A brief visual inspection of the bladder revealed a grossly normal bladder without tumors, foreign bodies, or stones. The ureteral orifices were noted to be in orthotopic position. ?? A 5 Fr Pollack catheter was passed without difficulty into the left ureteral orifice. ?? A 5Fr pollack catheter was inserted into the right ureteral orifice and could not be advanced further than 7cm. A wire was inserted and could not be advanced past this point. Under fluoro the position of the left ureteral catheter was verified in the left renal pelvis. Retrograde was performed on the right side, demonstrating a distal ureteral bend which prohibited advancement of the glidewire. An angled tip glidewire was advanced beyond this area and up to the right renal pelvis. A 5F pollack catheter could not be advanced over this wire. A 4.8F double J stent was advanced over the wire to the right renal pelvis. A proximal curl was seen in the right renal pelvis. A distal curl was seen in the bladder. There was no evidence of contrast extravasation on retrograde. ?? The bladder was emptied. The cystoscope was removed. A 16 Fr Silicone catheter was placed. Ten mL ofwater were used to inflate the balloon. The left side open ended catheter was secured to the pat catheter. The case was turned over to colorectal surgery to continue with their procedure. The patienttolerated the procedure well. There were no complications. ?? Dr. Power, the attending surgeon, was present for all onofre portions of the procedure. ?? Infection Bundle used? N/A Associated attestation - Anil Power MD - 09/19/2019 8:20 AM EDT Attestation: Case Date: 09/14/2019 I performed the procedure with the assistance of the resident. I performed or directly supervised all critical aspects. Notes: Normal cystosocpy Left side 5F open ended [...] J ureteral stent placed on right side. ANIL POWER MD 09/19/2019 Brief Op Note - Isaac Prado MD - 09/14/2019 2:38 PM EDT Brief Operative Note Patient Name: Jahaira Montgomery : [id number] MR#: [id number] Case Date: 09/14/2019 Surgeon: Surgeon(s) and Role: Panel 1: * Lanette Wiley MD - Primary * Kendrick Camacho MD - Resident Panel 2: * Anil Power MD - Primary * Isaac Prado MD - Resident Preoperative diagnosis: DIVERTICULITIS Postoperative diagnosis: DIVERTICULITIS Procedure(s) (LRB): @CLOSURE OF ENTEROSTOMY, RESECTION & ANASTOMOSIS OTHER THAN COLORECTAL (WRVU 17.28) (N/A) SIGMOIDOSCOPY, FLEXIBLE W/WO SPECIMEN BY BRUSHING OR WASHING (WRVU 0.84) (N/A) CYSTO, STENT PLACEMENT INTRAOP, TEMPORARY (WRVU 2.82) (Right) Anesthesia: General Findings: left side 5F open ended ureteral catheter placed without difficulty, right side ureteral kink seen on retrograde, 4.8F double J ureteral stent placed on right side. Complications: None Estimated Blood Loss: 2cc Specimens removed during surgery: None Fluids: Intraprocedure Crystalloid Total Lactated Ringers Volume (mL) 1000 mL PRBCs: none (See Anesthesia Record/Report for Other Blood Products) Urine Output: (no urine output recorded) Drains: Right 4.8F double J ureteral stent. Left 5F open ended ureteral catheter. 16F silicone foleycatheter with left ureteral catheter threaded in. Disposition: Under general anesthesia Condition: Case turned to colorectal for remainder of procedure (Please see the Surgical Encounter Summary for any Implant and Specimen details pertinent to this patient.) Infection Bundle used? N/A Findings: normal appearing bladder, orthotopic ureteral orifices, bilateral 5F pollack ureteral catheters placed without resistance showing return of urine, catheters secured to eydelman catheter with silk ties. Anesthesia: General Estimated Blood Loss: minimal Specimens removed during surgery: None Drains: bilateral 5F pollack ureteral catheters Surgical Closure: No incision made, no closure necessary Disposition: case turned over to CRS for completion Condition: under general anesthesia (Please see the Surgical Encounter Summary for any Implant and Specimen details pertinent to this patient.) HPI/Surgical Indications: temporary ureteral catheters requested by colorectal for lucy's reversal procedure. Procedure Description: The patient was identified in the pre-operative holding area. Consent was verified. No site marking needed for urology portion of procedure as procedure was bilateral. The patient was taken to the operating room and placed supine on the operating table. General anesthesia was induced. The patient was then moved to the lithotomy position and prepped and draped in the usual sterile fashion. A timeout was performed involving all members of the OR team confirming the patient's identity and planned procedure. Preoperative antibiotics were administered. A 22 Fr rigid cystoscope was inserted into the bladder. A brief visual inspection of the bladder revealed a grossly normal bladder without tumors, foreign bodies, or stones. The ureteral orifices were noted to be in orthotopic position. A 5 Fr Pollack catheter was passed without difficulty into the left ureteral orifice. A 5Fr pollack catheter was inserted into the right ureteral orifice and could not be advanced further than 7cm. A wire was inserted and could not be advanced past this point. Under fluoro the position of the left ureteral catheter was verified in the left renal pelvis. Retrograde was performed on the right side, demonstrating a distal ureteral bend which prohibited advancement of the glidewire. An angled tip glidewire was advanced beyond this area and up to the right renal pelvis. A 5F pollack catheter could not be advanced over this wire. A 4.8F double J stent was advanced over the wire to the right renal pelvis. A proximal curl was seen in the right renal pelvis. A distal curl was seen in the bladder. There was no evidence of contrast extravasation on retrograde. The bladder was emptied. The cystoscope was removed. A 16 Fr Silicone catheter was placed. Ten mL ofwater were used to inflate the balloon. The left side open ended catheter was secured to the pat catheter. The case was turned over to colorectal surgery to continue with their procedure. The patienttolerated the procedure well. There were no complications. Dr. Power, the attending surgeon, was present for all onofre portions of the procedure. Infection Bundle used? N/A documented in this encounter Plan of Treatment Upcoming Encounters Date Type Specialty Care Team Description 09/30/2021 Office Visit General Surgery Paloma Mota, [facility] [place], [place] [address] (Wo rk) 09/30/2021 Office Visit Infectious Diseases Anil Harrell MD [facility], [place] [address] (Wo rk) Scheduled Orders Name Type Priority Associated Diagnoses Order S chedule EKG 12 Lead ECG STAT Hypertensive urgency One [place] e for 1 Occurrences starting 09/18/2019 unti l 09/18/2019 documented as of this encounter Procedures Procedure Name Priority Date/Time Associated Diagnosis Comme nts EKG 12-LEAD STAT 09/18/2019 11:29 Hypertensive urgency Res ults for this AM EDT procedure are i n the results section. POCT GLUCOSE Routine 09/17/2019 2:20 PM Results f or this EDT procedure are i n the results section. POCT GLUCOSE Routine 09/17/2019 7:42 AM Results f or this EDT procedure are i n the results section. POCT GLUCOSE Routine 09/16/2019 8:14 PM Results f or this EDT procedure are i n the results section. POCT GLUCOSE Routine 09/16/2019 4:05 PM Results f or this EDT procedure are i n the results section. POCT GLUCOSE Routine 09/16/2019 11:26 Results for this AM EDT procedure are i n the results section. POCT GLUCOSE Routine 09/16/2019 6:51 AM Results f or this EDT procedure are i n the results section. POCT GLUCOSE Routine 09/15/2019 8:03 PM Results f or this EDT procedure are i n the results section. POCT GLUCOSE Routine 09/15/2019 3:20 PM Results f or this EDT procedure are i n the results section. POCT GLUCOSE Routine 09/15/2019 11:39 Results for this AM EDT procedure are i n the results section. POCT GLUCOSE Routine 09/15/2019 7:03 AM Results f or this EDT procedure are i n the results section. HC CREATININE Routine 09/15/2019 4:50 AM Results for this EDT procedure are i n the results section. HC HEMOGLOBIN, Routine 09/15/2019 4:50 AM Results for this BLOOD EDT procedure are i n the results section. HC HEMOGLOBIN, STAT 09/14/2019 7:55 PM Results for this BLOOD EDT procedure are i n the results section. BASIC METABOLIC STAT 09/14/2019 7:55 PM Result s for this PANEL (NON-FASTING) EDT procedur e are in the results section. SPECIMEN TO Routine 09/14/2019 5:36 PM Results f or this PATHOLOGY EDT procedure are i n the results section. SPECIMEN TO Routine 09/14/2019 4:31 PM Results f or this PATHOLOGY EDT procedure are i n the results section. SPECIMEN TO Routine 09/14/2019 4:13 PM Results f or this PATHOLOGY EDT procedure are i n the results section. SURGICAL PATHOLOGY Routine 09/14/2019 4:12 PM Res ults for this REPORT EDT procedure are i n the results section. XR FLUORO NO RAD Routine 09/14/2019 2:40 PM Resul ts for this <1HR - OR USE EDT procedure are in the results section. @MOBILIZATION OF 09/14/2019 12:47 DIVERTICULITIS SPLENIC FLEXURE PM EDT (WRVU 2.23) @OMENTAL FLAP, 09/14/2019 12:47 DIVERTICULITIS INTRA-ABDOMINAL PM EDT (WRVU 6.54) CYSTO, STENT 09/14/2019 12:47 DIVERTICULITIS PLACEMENT INTRAOP, PM EDT TEMPORARY (WRVU 2.82) SIGMOIDOSCOPY, 09/14/2019 12:47 DIVERTICULITIS FLEXIBLE W/WO PM EDT SPECIMEN BY BRUSHING OR WASHING (WRVU 0.84) @CLOSE ENTEROSTOMY, 09/14/2019 12:47 DIVERTICULITIS LG,SM INTESTINE, PM EDT W\RESECT COLORECTAL ANAST. (WRVU 27.9) POCT GLUCOSE Routine 09/14/2019 10:34 Results for this AM EDT procedure are i n the results section. documented in this encounter Results EKG 12 Lead (09/18/2019 11:29 AM EDT) [facility] Time Signature Ventricular rate 70 BPM MUSE SYSTEM Atrial Rate 70 BPM MUSE SYSTEM P-R Interval 118 ms MUSE SYSTEM QRS Duration 80 ms MUSE SYSTEM Q-T Interval 398 ms MUSE SYSTEM QTC Calculated 429 ms MUSE SYSTEM (Bezet) Calculated P Caret 37 degrees MUSE SYSTEM Calculated R Caret 28 degrees MUSE SYSTEM Calculated T Caret 61 degrees MUSE SYSTEM INTERPRETATION Normal sinus rhythm MUSE SYSTEM Normal ECG No previous ECGs available Confirmed by MD Tulio, Edouard Mendez ([id number]) on 09/18/2019 3:05:12 PM Specimen Anatomical Collection Method Collection Time Receive d Time (Source) Location / / Volume Laterality 09/18/2019 11:29 09/18/2019 3:05 AM EDT PM EDT Lanette Wiley MD ECG ORDERABLES Performing Organization Address City/State/ZIP Code Phon e Number MUSE SYSTEM POCT Glucose (09/17/2019 2:20 PM EDT) athologist Signature POC Glucose 93 65 - 199 [facility] mg/dL [facility] LABORATORY Comment: Supplemental ranges: <140 mg/dL before meals <180 mg/dL all other times of the day Specimen Anatomical Collection Method Collection Time Receive d Time (Source) Location / / Volume Laterality Blood specimen 09/17/2019 2:20 PM 020 2:20 (specimen) EDT PM EDT Lanette Wiley MD POINT OF CARE TEST ORDERABLE S Performing Organization Address City/State/ZIP Code Phon e Number [place] [id number] POCT Glucose (09/17/2019 7:42 AM EDT) athologist Signature POC Glucose 147 65 - 199 [place] mg/dL [facility] Comment: Supplemental ranges: <140 mg/dL before meals <180 mg/dL all other times of the day Specimen Anatomical Collection Method Collection Time Receive d Time (Source) Location / / Volume Laterality Blood specimen 09/17/2019 7:42 AM 7:42 (specimen) EDT AM EDT Lanette Wiley MD POINT OF CARE TEST ORDERABLE S Performing Organization Address City/State/ZIP Code Phon e Number [address] POCT Glucose (09/16/2019 8:14 PM EDT) athologist Signature POC Glucose 146 65 - 199 [place] mg/dL [facility] Comment: Supplemental ranges: <140 mg/dL before meals <180 mg/dL all other times of the day Specimen Anatomical Collection Method Collection Time Receive d Time (Source) Location / / Volume Laterality Blood specimen 09/16/2019 8:14 PM 020 8:14 (specimen) EDT PM EDT Lanette Wiley MD POINT OF CARE TEST ORDERABLE S Performing Organization Address City/State/ZIP Code Phon e Number [address] POCT Glucose (09/16/2019 4:05 PM EDT) athologist Signature POC Glucose 136 65 - 199 [place] mg/dL [facility]ORY Comment: Supplemental ranges: <140 mg/dL before meals <180 mg/dL all other times of the day Specimen Anatomical Collection Method Collection Time Receive d Time (Source) Location / / Volume Laterality Blood specimen 09/16/2019 4:05 PM 020 4:05 (specimen) EDT PM EDT Lanette Wiley MD POINT OF CARE TEST ORDERABLE S Performing Organization Address City/State/[place] [address] POCT Glucose (09/16/2019 11:26 AM EDT) athologist Signature POC Glucose 124 65 - 199 [place] mg/dL [facility] Comment: Supplemental ranges: <140 mg/dL before meals <180 mg/dL all other times of the day Specimen Anatomical Collection Method Collection Time Receive d Time (Source) Location / / Volume Laterality Blood specimen 09/16/2019 11:26 0 (specimen) AM EDT 11:26 AM EDT Lanette Wiley MD POINT OF CARE TEST ORDERABLE S Performing Organization Address City/State/ZIP Code Phon e Number [address] POCT Glucose (09/16/2019 6:51 AM EDT) athologist Signature POC Glucose 139 65 - 199 [place] mg/dL [facility] Comment: Supplemental ranges: <140 mg/dL before meals <180 mg/dL all other times of the day Specimen Anatomical Collection Method Collection Time Receive d Time (Source) Location / / Volume Laterality Blood specimen 09/16/2019 6:51 AM 020 6:51 (specimen) EDT AM EDT Lanette Wiley MD POINT OF CARE TEST ORDERABLE S Performing Organization Address City/State/ZIP Code Phon e Number [address] POCT Glucose (09/15/2019 8:03 PM EDT) athologist Signature POC Glucose 127 65 - 199 [place] mg/dL [facility] Comment: Supplemental ranges: <140 mg/dL before meals <180 mg/dL all other times of the day Specimen Anatomical Collection Method Collection Time Receive d Time (Source) Location / / Volume Laterality Blood specimen 09/15/2019 8:03 PM 020 8:03 (specimen) EDT PM EDT Lanette Wiley MD POINT OF CARE TEST ORDERABLE S Performing Organization Address City/State/[place] [address] POCT Glucose (09/15/2019 3:20 PM EDT) athologist Signature POC Glucose 111 65 - 199 [place] mg/dL [facility] Comment: Supplemental ranges: <140 mg/dL before meals <180 mg/dL all other times of the day Specimen Anatomical Collection Method Collection Time Receive d Time (Source) Location / / Volume Laterality Blood specimen 09/15/2019 3:20 PM 020 3:20 (specimen) EDT PM EDT Lanette Wiley MD POINT OF CARE TEST ORDERABLE S Performing Organization Address City/State/ZIP Code Phon e Number [address] POCT Glucose (09/15/2019 11:39 AM EDT) athologist Signature POC Glucose 117 65 - 199 [place] mg/dL [facility] Comment: Supplemental ranges: <140 mg/dL before meals <180 mg/dL all other times of the day Specimen Anatomical Collection Method Collection Time Receive d Time (Source) Location / / Volume Laterality Blood specimen 09/15/2019 11:39 0 (specimen) AM EDT 11:39 AM EDT Lanette Wiley MD POINT OF CARE TEST ORDERABLE S Performing Organization Address City/State/ZIP Code Phon e Number [address] POCT Glucose (09/15/2019 7:03 AM EDT) athologist Signature POC Glucose 131 65 - 199 [place] mg/dL [facility] Comment: Supplemental ranges: <140 mg/dL before meals <180 mg/dL all other times of the day Specimen Anatomical Collection Method Collection Time Receive d Time (Source) Location / / Volume Laterality Blood specimen 09/15/2019 7:03 AM 7:03 (specimen) EDT AM EDT Lanette Wiley MD POINT OF CARE TEST ORDERABLE S Performing Organization Address City/State/[place] [address] Hemoglobin and Hematocrit, blood (09/15/2019 4:50 AM EDT) athologist Signature Hemoglobin 14.0 11.7 - 15.5 [facility] Hematocrit 44.2 35.7 - 45.8 [facility] % [facility] Specimen Anatomical Collection Method Collection Time Receive d Time (Source) Location / / Volume Laterality Blood specimen 09/15/2019 4:50 AM 020 5:02 (specimen) EDT AM EDT Resulting Agency Comment Spec In Lab Lanette Wiley MD HEMATOLOGY ORDERABLES Performing Organization Address City/[facility] Phon e Number [address] Creatinine (09/15/2019 4:50 AM EDT) athologist Signature Creatinine 0.84 0.70 - [facility] 1.20 mg/dL [facility]ORY Estimated GFR 77 >=60 [facility] mL/min/1.7 [facility] 3 m?? HOSPITAL LABORATORY Comment: The eGFR was calculated using the CKD-EP I equation. As with all creatinine based estimates of kidney function, eGFR values calculated with the CKD-EPI equation are not accurate in patients wi th acute kidney failure, extremes of body mass or the acutely ill. [email or web address] eGFR 89 >=60 mL/min/1.73 m?? [facility] Comment: The eGFR was calculated using the CKD-EP I equation. As with all creatinine based estimates of kidney function, eGFR values calculated with the CKD-EPI equation are not accurate in patients wi th acute kidney failure, extremes of body mass or the acutely ill. [email or web address] Specimen Anatomical Collection Method Collection Time Receive d Time (Source) Location / / Volume Laterality Blood specimen 09/15/2019 4:50 AM 020 5:02 (specimen) EDT AM EDT Resulting Agency Comment Spec In Lab Lanette Wiley MD CHEMISTRY ORDERABLES Performing Organization Address City/[facility]/ZIP [facility] [place] [address] (ABNORMAL) Hemoglobin and Hematocrit, blood (09/14/2019 7:55 PM EDT) athologist Signature Hemoglobin 15.5 11.7 - [facility] 15.5 gm/dL [facility] Hematocrit 49.7 (H) 35.7 - [facility] 45.8 % [facility]ORY Specimen Anatomical Collection Method Collection Time Receive d Time (Source) Location / / Volume Laterality Blood specimen 09/14/2019 7:55 PM 020 8:08 (specimen) EDT PM EDT Resulting Agency Comment Spec In Lab Lanette Wiley MD HEMATOLOGY ORDERABLES Performing Organization Address City/State/[place] [address] (ABNORMAL) Basic Metabolic Panel (non-fasting) (09/14/2019 7:55 PM EDT) athologist Signature Glucose Lvl 238 (H) 65 - 199 [facility] mg/dL [facility] Comment: Diabetes: >=200 mg/dL plus symp toms BUN 11 8 - 18 mg/dL [facility] Creatinine 0.65 (L) 0.70 - 1.20 mg/dL [facility] Sodium 140 135 - 145 mmol/L [facility] Potassium 3.8 3.5 - 5.0 mmol/L [facility] Comment: Please note: ??Patients with WBC >100,00 0 may have falsely elevated Potassium levels. ??For accurate Potassium quantif ication in these patients send serum separator tube (gold top) for subsequent determinations. ??Contact the Clinical Chemistry Laboratory if there are any qu estions. Chloride 108 (H) 98 - 107 mmol/L [facility] CO2 20 (L) 22 - 31 mmol/L [facility] Anion Gap 12 5 - 15 mmol/L [facility] Calcium 8.1 (L) 8.5 - 10.5 mg/dL [facility] Estimated GFR 99 >=60 mL/min/1.73 m?? [facility] Comment: The eGFR was calculated using the CKD-EP I equation. As with all creatinine based estimates of kidney function, eGFR values calculated with the CKD-EPI equation are not accurate in patients wi th acute kidney failure, extremes of body mass or the acutely ill. [email or web address] eGFR 114 >=60 mL/min/1.73 m?? [facility] Comment: The eGFR was calculated using the CKD-EP I equation. As with all creatinine based estimates of kidney function, eGFR values calculated with the CKD-EPI equation are not accurate in patients wi th acute kidney failure, extremes of body mass or the acutely ill. [email or web address] Specimen Anatomical Collection Method Collection Time Receive d Time (Source) Location / / Volume Laterality Blood specimen 09/14/2019 7:55 PM 020 8:08 (specimen) EDT PM EDT Resulting Agency Comment Spec In Lab Lanette Wiley MD CHEMISTRY ORDERABLES Performing Organization Address City/[facility] Phon e Number [address] Specimen to Pathology (09/14/2019 5:36 PM EDT) Specimen Anatomical Collection Method Collection Time Receive d Time (Source) Location / / Volume Laterality AP Specimen 09/14/2019 5:36 PM 0 5:36 EDT PM EDT Narrative [facility] - 09/14/2019 5:36 PM EDT Specimen requisition ordered. ??Separate Pathology report to follow Lanette Wiley MD PATHOLOGY/CYTOLOGY ORDERABLE S Performing Organization Address City/State/[place] [address] Specimen to Pathology (09/14/2019 4:31 PM EDT) Specimen Anatomical Collection Method Collection Time Receive d Time (Source) Location / / Volume Laterality AP Specimen 09/14/2019 4:31 PM 0 4:31 EDT PM EDT Narrative [facility] - 09/14/2019 4:31 PM EDT Specimen requisition ordered. ??Separate Pathology report to follow Lanette Wiley MD PATHOLOGY/CYTOLOGY ORDERABLE S Performing Organization Address City/[facility] [place] [address] Specimen to Pathology (09/14/2019 4:13 PM EDT) Specimen Anatomical Collection Method Collection Time Receive d Time (Source) Location / / Volume Laterality AP Specimen 09/14/2019 4:13 PM 0 4:13 EDT PM EDT Narrative [facility] - 09/14/2019 4:13 PM EDT Specimen requisition ordered. ??Separate Pathology report to follow Lanette Wiley MD PATHOLOGY/CYTOLOGY ORDERABLE S Performing Organization Address City/State/[place] [address] Surgical Pathology Report (09/14/2019 4:12 PM EDT) Component Value Ref Test Analysis Performed At [facility] Range Method Time Signature Surgical ? Location: 3WST; 0306; A [facility] Report The signing pathologist has (i) examined the relevant preparation(s) for the [facility] specimen(s) and (ii) rendered or confirmed the diagnosis(es) . HOSPITAL LABORATORY . ?Surgic al Pathology DIAGNOSIS A - Rectosigmoid junction, resection: Diverticulosis and chronic d iverticulitis, associated with peridiverticular fibrosis and adhesion. Viable resection margins. 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 C - EEA ??doughnuts: Benign colorectal rings. Electronically signed by: ??Toby English MD Verified: ??09/20/2019 ?Pathologist Performed at: ??-[facility] Dept. of Pathology, [place], [place] SPECIMEN(S) SUBMITTED A - rectosigmoid junction, excision (1) B - Prior Colostomy Site, excision (1) C - EEA DONUTS, excision (1) CLINICAL INFORMATION Diverticulitis SPECIMEN PROCESSING A - Labeled/Fixative: Rectosigmoid junction, fresh. Resection Specimen: Intact, partial colectomy. Overall Size: 5 x 5 x 3 cm. Length/Diameter: 4 cm/2 cm. External Architecture: Preserved. Serosa: Pale pink glistening unremarkable. Mucosa: Burdick-pink folded with diverticulum. Wall: 0.5 cm thick. Sections/Processing: Elevator Troubleshooter sections in 4 cassettes as follows: ?A1-A2: ??Elevator Troubleshooter section of mucosa of a diverti culum ?A3-A4: ??Terminal margins B - Labeled/Fixative: Prior colostomy site, fresh. Resection Specimen: Intact, Three, partial colectomy. Specimen composed of three segments as following: Overall Size: 9 x 5 x 3 cm. Colon: Length/Diameter: 4 cm/1.5 cm. External Architecture: Preserved. Serosa: Burdick pink glistening with adhesion. Mucosa: Burdick-pink folded unremarkable. Wall: 0.4 cm thick. Donut: 2 x 1.5 x 1 cm, annular portion of burdick-pink mucosa. Stoma: 3 x 2.5 x 1 cm, burdick pink mucosa surrounded by pale-pink sk in, central type. . SPECIMEN PROCESSING Sections/Processing: Elevator Troubleshooter sections in 4 cassettes as follows: ?B1-B2: ??Terminal margins and compliance representative section ?B3: ??Elevator Troubleshooter section of donut ?B4: ??Elevator Troubleshooter section of stoma C - Labeled/Fixative: EEA doughnuts, fresh. Quantity/Size: ??Two, averaging 1.8 x 1 x 0.9 cm. Tissue Description: Annular portions of burdick-pink mucosa. Sections/Processing: Elevator Troubleshooter section of each is submitted in 1 cassette veto perdue C1. ??carmen Specimen (Source) Anatomical Collection Method Collection Time Re ceived Time Location / / Volume Laterality 09/14/2019 4:12 PM EDT Lanette Wiley MD PATHOLOGY/CYTOLOGY ORDERABLE S Performing Organization Address City/State/[place] [address] [facility] [address] XR Fluoro No Rad <1Hr - OR Use (09/14/2019 2:40 PM EDT) Specimen (Source) Anatomical Location Collection Method / Collectio n Time Received Time / Laterality Volume Narrative [facility] - 09/14/2019 2:40 PM EDT This exam is auto-finalizing. No interpr etation was done. Lanette Wiley MD IMG FLUORO ORDERABLES Performing Organization Address City/State/ZIP Code Phon e Number [place], [place] POCT Glucose (09/14/2019 10:34 AM EDT) athologist Signature POC Glucose 115 65 - 199 [facility] mg/dL [facility] Comment: Supplemental ranges: <140 mg/dL before meals <180 mg/dL all other times of the day Specimen Anatomical Collection Method Collection Time Receive d Time (Source) Location / / Volume Laterality Blood specimen 09/14/2019 10:34 0 (specimen) AM EDT 10:34 AM EDT Lanette Wiley MD POINT OF CARE TEST ORDERABLE S Performing Organization Address City/State/[place] [address] documented in this encounter Visit Diagnoses Diagnosis Hypertensive urgency Unspecified essential hypertension Imbalance Abnormality of gait History of colostomy reversal Diverticulitis Diverticulitis of colon (without mention of hemorrhage) documented in this encounter Admitting Diagnoses Diagnosis Diverticulitis Diverticulitis of colon (without mention of hemorrhage) documented in this encounter Administered Medications Inactive Administered Medications - up to 3 most recent administrations Medication Order MAR Action Action Date Dose Rate Site acetaminophen (Tylenol) tablet Given 09/14/2019 10:55 AM EDT 1,0 00 mg 1,000 mg 1,000 mg, Oral, ONCE, 1 dose, On Thu09/14/19 at 1100, Avoid in patients with liver dysfunction, Day of Surgery (Day of Procedure), Routine acetaminophen (Tylenol) tablet 1,000 mg Given 09/18/2019 9:21 AM EDT 1,000 mg 1,000 mg, Oral, EVERY 6 HOURS, First dose on Thu09/14/19 at 2015, Until Discontinued, Do not exceed 4,000 mg in 24 hours., Routine Given 09/18/2019 3:42 AM EDT 1,000 mg Given 09/17/2019 9:36 PM EDT 1,000 mg amLODIPine (Norvasc) tablet 10 mg Given 09/19/2019 8:55 AM EDT 10 mg 10 mg, Oral, DAILY, First dose (after last modification) on Thu09/19/19 at 0815, Until Discontinued, Routine amLODIPine (Norvasc) tablet 5 mg Given 09/18/2019 9:21 AM EDT 5 mg 5 mg, Oral, DAILY, First dose on Thu09/18/19 at 0945, Until Discontinued, Routine enoxaparin (LOVENOX) injection 40 mg Given 09/14/2019 9:52 PM EDT 40 mg 40 mg, Subcutaneous, NIGHTLY, First dose on Thu09/14/19 at 2100, Until Discontinued, Routine enoxaparin (LOVENOX) injection 40 mg Given 09/19/2019 1:41 PM EDT 40 mg 40 mg, Subcutaneous, EVERY 24 HOURS SCHEDULED (Daily), First dose (after last modification) on Kiara 09/15/19 at 1200, Until Discontinued, Please educate patient on self-administration of Lovenox. Have patient participate in evening administration of Lovenox. And show video on Lovenox self-administration. Patient will be discharged to continue Lovenox injections for 1 month total from date of surgery., Routine Given 09/18/2019 11:56 AM EDT 40 mg Given 09/17/2019 12:47 PM EDT 40 mg gabapentin (Neurontin) capsule 300 mg Given 09/16/2019 9:06 AM EDT 300 mg 300 mg, Oral, 3 TIMES DAILY, First dose on Thu09/14/19 at 2100, Until Discontinued, Routine Given 09/15/2019 9:02 PM EDT 300 mg Given 09/15/2019 2:14 PM EDT 300 mg gabapentin (Neurontin) capsule 600 mg Given 09/14/2019 10:55 AM EDT 600 mg 600 mg, Oral, ONCE, 1 dose, On Thu09/14/19 at 1100, Day of Surgery (Day of Procedure), Routine heparin (Porcine) subcutaneous Given 09/14/2019 11:02 AM EDT 5,0 00 Units injection 5,000 Units 5,000 Units, Subcutaneous, ONCE, 1 dose, On Thu09/14/19 at 1100, Day of Surgery (Day of Procedure), Routine ibuprofen (Advil;Motrin) tablet 600 mg 600 mg, Oral, EVERY 6 HOURS PRN, Startin g on Thu09/18/19 at 0905, Until Thu09/19/19 at 1820, Pain, Administer orally with milk or food to minimize GI irritation. [place] dose of 3200 mg from all sources in 24 hours, Routine ketorolac (TORADOL) injection 15 mg Given 09/17/2019 4:09 PM EDT 15 mg 15 mg, Intravenous, USER SPECIFIED (4 times per day), 20 doses, First dose on 09/14/19 at 2100, Last dose on 09/19/19 at 1500, Do not administer with other NSAIDS, Routine Given 09/17/2019 9:06 AM EDT 15 mg Given 09/17/2019 4:08 AM EDT 15 mg labetalol (NORMODYNE,TRANDATE) injection 10-20 Given 0 09/18/2019 9:21 AM EDT 10 mg mg 10-20 mg, Intravenous, EVERY 4 HOURS PRN, 1 dose, Starting on 09/18/19 at 0857, Until 09/18/19 at 0921, High Blood Pressure, Give for SBP > 175. May repeat for 20mg total if inadequate response after 30 min, Routine labetalol (NORMODYNE,TRANDATE) injection 10-20 Given 0 09/18/2019 1:21 PM EDT 10 mg mg 10-20 mg, Intravenous, EVERY 4 HOURS PRN, Starting on 09/18/19 at 1045, Until 09/19/19 at 1820, High Blood Pressure, Give for SBP > 175. May repeat for 20mg total if inadequate response after 30 min, Routine labetalol (NORMODYNE,TRANDATE) injection 20 mg Given 09/17/2019 2:22 PM EDT 20 mg 20 mg, Intravenous, ONCE, 1 dose, On 09/17/19 at 1500, Give and recheck bp after 30min, page if doesn't come down. Thanks!, Routine lactated Ringers 1,000 mL IV bolus New Bag 09/15/2019 10:45 AM EDT 1000 mL/hr at 1,000 mL/hr, Intravenous, ONCE, 1 dose, On Kiara 09/15/19 at 1045 lactated Ringers 500 mL IV bolus New Bag 09/15/2019 6:28 PM EDT 500 mL/hr at 500 mL/hr, Intravenous, ONCE, 1 dose, On Kiara 09/15/19 at 1915 lidocaine (LIDODERM) 5 Patch Applied 09/17/2019 9:06 AM 3 patches 13- Abdomen % patch 3 patch EDT (Left) 3 patch, Transdermal, DAILY, First dose on Thu09/16/19 at 0900, Until Discontinued, Apply patch(es) for 12 hours, and then remove for 12 hours, Routine Patch Applied 09/16/2019 9:05 AM EDT 3 patches 14- Abdomen (Right) lidocaine (LIDODERM) patch REMOVAL Transdermal, NIGHTLY, First dose on Thu09/16/19 at 2100, Until Discontinued, Remove Lidocaine Patch ondansetron ODT (Zofran-ODT) disintegrating Given 09/15/2019 2:1 4 PM EDT 8 mg tablet 8 mg 8 mg, Oral, EVERY 8 HOURS, 3 doses, First dose on Thu09/14/19 at 2115, Last dose on Thu09/15/19 at 1315, Recovery (Recovery-Hospital Unit), Routine Given 09/15/2019 5:02 AM EDT 8 mg Given 09/14/2019 9:52 PM EDT 8 mg sodium chloride 0.9 % (flush) flush 5 mL Given 09/19/2019 8:55 AM EDT 5 mLs 5 mL, Intravenous, 2 TIMES DAILY, First dose on Thu09/14/19 at 2115, Until Discontinued, Recovery (Recovery-Hospital Unit), Routine Given 09/18/2019 8:15 PM EDT 5 mLs Given 09/18/2019 10:45 AM EDT 5 mLs sodium chloride 0.9% infusion New Bag 09/14/2019 10:25 PM EDT 42 mL/hr 42 mL/hr 42 mL/hr, Intravenous, CONTINUOUS, Starting on Thu09/14/19 at 2115, Until Kiara 09/15/19 at 0805, Recovery (Recovery-Hospital Unit) traMADoL (Ultram) tablet 50 mg Given 09/16/2019 6:16 AM EDT 50 mg 50 mg, Oral, EVERY 6 HOURS PRN, Starting on Thu09/14/19 at 1952, Until Thu09/16/19 at 0742, Pain, May repeat 50 mg in 60 minutes if pain is not relieved. Contraindications with MAO inhibitors. Because of the potential risk and severity of serotonin syndrome or neuroleptic malignant syndrome - Like reactions, caution should be observed when administering selective serotonin reuptake inhibitors (SSRIs) with tramadol., Routine Given 09/15/2019 11:08 AM EDT 50 mg Given 09/15/2019 4:37 AM EDT 50 mg traMADoL (Ultram) tablet 50-100 mg 50-100 mg, Oral, EVERY 6 HOURS PRN, Starting on 06/02 at 0741, Until Thu09/19/19 at 1820, Pain, Please give 50mg f or moderate pain 4-7 and 100mg for severe pain 8-10 Contraindications with MAO inh ibitors. Because of the potential risk and severity of serotonin syndrome or neurol eptic malignant syndrome - Like reactions, caution should be observed when administering selectiv e serotonin reuptake inhibitors (SSRIs) with tramadol., Routine documented in this encounter Active and Recently Administered Medications Times are shown in EDT. Scheduled Medication Order 09/17/2019 09/18/2019 09/19/2019 acetaminophen (Tylenol) tablet 1,000 mg 0408 (Given - Provider: Shruthi Kang RN)1051 (Given - Provider: Nikos Shin, GENA)1609 (Given - Provider: Nikos Shin, GENA)2136 (Given - Provider: Hanane Lee RN) 0342 (Given - Provider: Hanane Lee RN)0921 (Given - Provider: Nikos Shin, GENA)1600 (Not Given - Provider: Nikos Shin RN - Reason: Patient/family refused) 0400 (Not Given - Provider: Juju Araya RN - Reason: Patient/family refused)1000 (Hold - Provider: Lima Chu RN - Reason: Patient/family refused)1600 (Due) 1,000 mg, Oral, EVERY 6 HOURS, First dos e on Thu09/14/19 at 2015, Until Discontinued, Do not exceed 4,000 mg in 24 hours., Routine 2200 (Not Given - Provider: Juju Araya RN - Reason: Patient/family refused) amLODIPine (Norvasc) tablet 10 mg 0855 (Given - Provider: Lima Chu, GENA) 10 mg, Oral, DAILY, First dose (after la st modification) on Thu09/19/19 at 0815, Until Discontinued, Routine amLODIPine (Norvasc) tablet 5 mg (CANCELED) 0921 (Given - Provider: Nikos Shin RN) 5 mg, Oral, DAILY, First dose on 09/17 at 0945, Until Discontinued, Routine enoxaparin (LOVENOX) injection 40 mg 1247 (Given - Pro vider: Nikos Shin, RN) 1156 (Given - Provider: Nikos Shin, RN) 1341 (Giv en - Provider: Lima Chu, RN - Comment: Administered per brother) 40 mg, Subcutaneous, EVERY 24 HOURS SCHE DULED (Daily), First dose (after last modification) on Kiara 09/15/19 at 1200, Until Discontinued, Please educate patient on self-administration of Lovenox. Have diane ent participate in evening administratio n of Lovenox. And show video on Lovenox self-administration. Patient will be discharged to continue Lovenox injections for 1 month total from date of surgery., Routine ketorolac (TORADOL) injection 15 mg (CANCELED) 0408 (G iven - Provider: Shruthi Kang RN)0906 (Given - Provider: Nikos Shin, GENA)1609 (Given - Provider: Nikos Shin RN)2100 (Not Given - Provider: Hanane Lee RN - Reason: Patient/family refused) 0300 (Not Given - Provider: Hanane zamora RN - Reason: Patient/family refused)0900 (Not Given - Provider: Patricia Fuller RN - Reason: Medication Discontinued) 15 mg, Intravenous, USER SPECIFIED (4 ti mes per day), 20 doses, First dose on Thu09/14/19 at 2100, Last dose on 09/19/19 at 1500, Do not administer with other NSAIDS, Routine labetalol (NORMODYNE,TRANDATE) injection 20 mg (COMPLE ELTON) 1422 (Given - Provider: Nikos Shin, GENA) 20 mg, Intravenous, ONCE, 1 dose, 09/17/19 at 1500, Give and recheck bp after 30min, page if doesn't come down. Thanks!, Routine lidocaine (LIDODERM) 5 % patch 3 patch(Linked Group 1) 0906 (Patch Applied - Provider: Nikos Shin, GENA) 0900 (Not Given - Provider: Patricia Fuller RN - Reason: Patient/family refused) 0854 (Not Given - Provider: Lima melendrez, RN - Reason: Patient/family refused) 3 patch, Transdermal, DAILY, First dose on Thu09/16/19 at 0900, Until Discontinued, Apply patch(es) for 12 hours, and then remove for 12 hours, Routine lidocaine (LIDODERM) patch REMOVAL(Linked Group 1) 210 0 (Patch Removed - Provider: Hanane Lee, RN) 2100 (Patch Not Removed (add comment) - Provider: Juju Araya, GENA - Comment: not present upon assessment) Transdermal, NIGHTLY, First dose on Thu09/16/19 at 2100, Until Discontinued, Remove Lidocaine Patch sodium chloride 0.9 % (flush) flush 5 mL 0907 (Given - Provider: Nikos Shin, RN)2137 (Given - Provider: Hanane Lee, RN) 1045 (Given - Provider: Patricia Fuller, GENA)2014 (Given - Provider: Juju Araya, GENA) 0855 (Given - Provider: Lima Chu RN) 5 mL, Intravenous, 2 TIMES DAILY, First dose on Thu09/14/19 at 2115, Until Discontinued, Recovery (Recovery-Hospital Unit), Routine PRN Medication Order 09/17/2019 09/18/2019 09/19/2019 ibuprofen (Advil;Motrin) tablet 600 mg 600 mg, Oral, EVERY 6 HOURS PRN, Startin g 09/18/19 at 0905, Until Thu09/19/19 at 1820, Pain, Administer orally with milk or food to minimize GI irritation. Maximum dose of 3200 mg from all sources in 24 hours, Routine labetalol (NORMODYNE,TRANDATE) injection 10-20 mg (COMPLETED ) 920 (Given - Provider: Nikos Shin, GENA - Comment: recieved 5mg then IV started burning, IV team paged) 10-20 mg, Intravenous, EVERY 4 HOURS PRN , 1 dose, Starting 09/18/19 at 0857, Until Discontinued, High Blood Pressure, Give for SBP > 175. May repeat for 20mg total if inadequate response after 30 min, Routine labetalol (NORMODYNE,TRANDATE) injection 10-20 mg 1321 (Given - Provider: Nikos Shin, GENA) 10-20 mg, Intravenous, EVERY 4 HOURS PRN , Starting 09/18/19 at 1045, Until Thu09/19/19 at 1820, High Blood Pressure, Give for SBP > 175. May repeat for 20mg total if inadequate response after 30 min, Routine lidocaine (XYLOCAINE) 10 mg/mL (1 %) injection 3 mg 3 mg (0.3 mL), Subcutaneous, ONCE PRN, 1 dose, Starting Thu09/14/19 at 2058, Until Thu09/19/19 at 1820, for discomfort with PIV insertion, Recovery (Recovery- Hospital Unit), Routine sodium chloride 0.9 % (flush) flush 5-20 mL 5-20 mL, Intravenous, EVERY 1 MIN PRN, S tarting Thu09/14/19 at 2058, Until Thu09/19/19 at 1820, flush, Flush pertains to all indwelling lines. Flush per protocol found in the job aid using the link provid ed on this medication record., Recovery (Recovery-Hospital Unit) , Routine traMADoL (Ultram) tablet 50-100 mg 50-100 mg, Oral, EVERY 6 HOURS PRN, Star ting Thu09/16/19 at 0741, Until Thu09/19/19 at 1820, Pain, Please give 50mg for moderate pain 4-7 and 100mg for severe pain 8-10 Contraindications with MAO inhibito rs. Because of the potential risk and se verity of serotonin syndrome or neuroleptic malignant syndrome - Like reactions, caution should be observed when administering selective serotonin reuptake inhibitors (SSRIs) with tramadol., Routine Linked Groups Order Group 1: lidocaine (LIDODERM) 5 % patch 3 patchJump to med 3 patch, Transdermal, DAILY, First dose on Thu09/16/19 at 0900, Until Discontinued
Apply patch(es) for 12 hours, and then remove for 12 hours
Routine And lidocaine (LIDODERM) patch REMOVALJump to med Transdermal, NIGHTLY, First dose on Thu09/16/19 at 2100, Until Discontinued
Remove Lidocaine Patch
documented in this encounter Care Teams Inside Solar Sales Consultant Relationship Specialty Start Date End Date Hanane Martinez MD PCP - General Internal Medicine 08/09/19 04/23/21 [address] [place] [address] documented as of this encounter
--- OUTSIDE RECORDS SUMMARY | 2021-09-27 14:55 | XMS_ITS | Encounter Summary ---
:1960 [place] [address] Care Team Providers Name Role Phone Hanane [...] Expiration Date Visits Requ ested Visits Authorized [id number] 1 1 Encounter Details Date Type Department Care Team Description 09/14/2019 Anesthesia Event Main Operating Room Sage Trent MD [facility] [place] [address] [facility] Christin Panda MD [facility] [place] [address] [place] [address] Anesthesia Record Procedure Summary Procedure Name Responsible Anesthesia Start Anesthesia Stop Anesthesiologist Time Time @CLOSE ENTEROSTOMYSuzette Adam J, MD 09/14/19 1247 09/14/19 19 23 LG,SM INTESTINE, W\RESECT COLORECTAL ANAST. (WRVU 27.9) (N/A Abdomen) Events Date Time Event Comment 09/14/2019 1247 AN Verify 1247 Start 1247 An Start Data 1300 An Induction 1302 An Intubation 1307 Anesthesia Ready 1431 Quick Note Begin laparotomy 1535 Break/Relief In I assumed care f or Break Relief before which we: 1. Identifie d the patient 2. Identified the responsible provider(s) 3. Reviewed the pertinent medica l history 4. Discussed the surgical plan an d course 5. Reviewed intra-op anesthesia manag ement and issues during anesthesia 6. Se t expectations for the relief (and/or post-pro cedure) period 7. Allowed opportunity for questions and acknowledgement of understanding Viviana Atkinson CRNA 1550 Break/Relief Out 1727 Handoff Intra-procedure anesthesia care was transferred afte r review of the patient's history, current anesthetic/surgical status and procedural p sj, anticipated issues and expected post-op erative course (including disposition.) Co steve Simeon DO 184 Quick Note OG placed to dec ompress stomach and then D/Cd 192 Extubation/LMA Out 192 an stop data 1923 Recovery or ICU Handoff Patient care was transferred to the destination unit staff after review of the patient's medica l history, current anesthetic/surgi mary grace status and plan, according to the Provider Handoff Checklist. 1923 Stop 09/20/2019 0900 Name Total fentaNYL 100 mcg IV Lidocaine 70 mg Propofol 200 mg Rocuronium 90 mg ePHEDrine 50 mg Ondansetron 4 mg Dexamethasone 4 mg Neostigmine 3 mg Glycopyrrolate 0.6 mg Succinylcholine 100 mg BUpivacaine 0.25% 40 mL PHENYLephrine INF 10,660 mcg levoFLOXacin (LEVAQUIN) 500 mg in dextrose 5% 100 mL 5 00 mg metroNIDAZOLE (FLAGYL) 500 mg in sodium chloride 0.9% 100 mL 500 mg HYDROmorphone 0.4 mg Lactated Ringers 1,800 mL Lactated Ringers 1,000 mL Agents Name O2 Air N2O Sevoflurane (et) Blood No blood administrations on file. Lines, Drains, and Airways Type Details Placement Removal Colostomy descending/sigmoid 09/14/19 1527 by 09/17/19 123 2 by colostomy; LDA not KipDiego morrissey, RN present upon assessment, reversed in surgery; 09/17/19; 1232 PIV 09/14/19; 1131; median 09/14/19 1131 by 09/18/19 1010 by cubital vein (antecubital Kimberly Connolly RN V alcourt, Karen J, fossa), left; 20 gauge; RN Kimberly Connolly, RN; distraction, tolerated well, appears comfortable; 09/18/19; 1010 ETT Mask Ventilation: Easy 09/14/19 1302 by 09/14/19 1923 by (1); ETT Type: Cuffed; Adrian Jackson, MD Bull burkett, Paul Deras, ETT Size: 7 mm; Mac DISTRICT ASSOCIATE JUDGE Blade: 3; Notes: Asleep, Pre-O2, Stylette; Attempts: 1; Laryngoscopy Grade: 1; ETT Placement Verified By: Auscultation, Capnometry, Visual; Secured at Teeth: 21 cm; Inserted by: Manuel PIV 09/14/19; 1305; 09/14/19 1305 by 09/18/19 1010 b y metacarpal vein (top of Christin Panda, Sheryl Guzman, hand), left; 20 gauge, 1 RN in length; IV very painful; site symptomatic, removed per policy/procedure, site care per policy/procedure, catheter/device intact; 09/18/19; 1010 PIV 09/14/19; 1307; 09/16/19 09/14/19 1307 by 0000 by Adrian Jackson, MD Fonseca, Silvino as H II, RN Ureteral Catheter 09/14/19; 1357; left 09/14/19 1357 by 09/14/19 1909 by ureter; drainage bag to Shawna Hong RN Bossi er, Bonnie R, dependent drainage; RN 09/14/19; 1909 Urethral Catheter 09/14/19; 1400; Abdominal 09/14/19 1400 by 06/02 0835 by surgery, Surgery longer Shawna Hong RN Rober ge, Sabrina M, than 2 hours, Physician CARDIOVASCULAR TECHNICIAN order; indwelling double lumen catheter; 100% silicone; 16; inserted at this facility; 1; 5; 10; none; drainage bag to dependent drainage; 09/16/19; 0835 Ureteral Catheter 09/14/19; 1400; right 09/14/19 1400 by 1 0637 by ureter; drainage bag to Shawna Hong RN Carbe e, Chelsea M, dependent drainage; 4.8 F RN Variable Contour VL ; 04/25/20; 0637 Incision 09/14/19; 1430; abdomen; 09/14/19 1430 by 0637 by vertical; MARY AND Shawna Hong RN Carbee, Chelsea M, PRIMAPORE; 04/25/20; 0637 RN documented in this encounter Social History [...] encounter OR Notes Anesthesia Postprocedure Evaluation - Sage Bradford MD - 09/14/2019 11:10 PM EDT Department of Anesthesiology Post-procedure Note Patient: Jahaira Montgomery Procedure Summary Date: 09/14/19 Room / Location: [address] MAIN OR Anesthesia Start: 1247 Anesthesia Stop: 1922 Procedures: @CLOSURE OF ENTEROSTOMY, RESECTION & ANASTOMOSIS OTHER THAN COLORECTAL (WRVU 17.28) (N/A Abdomen) SIGMOIDOSCOPY, FLEXIBLE W/WO SPECIMEN BY BRUSHING OR WASHING (WRVU 0.84) (N/A ) @OMENTAL FLAP, INTRA-ABDOMINAL (WRVU 6.54) (Abdomen) @MOBILIZATION OF SPLENIC FLEXURE (WRVU 2.23) (N/A Abdomen) CYSTO, STENT PLACEMENT INTRAOP, TEMPORARY (WRVU 2.82) (Right Ureter) Diagnosis: (DIVERTICULITIS) Surgeon: Miryam Wiley MD; Werner Fournier MD Responsible Provider: Sage Bradford MD Anesthesia Type: general ASA Status: 2 All Anesthesia Providers: Anesthesiologist: Howard Simeon DO; Christin Panda MD; Sage Bradford MD DISTRICT ASSOCIATE JUDGE: Paul Loving CRNA; Rosalind Jorge CRNA Sorting Machine Attendant: Leonora Escudero MD; Adrian Jackson MD Vitals Value Taken Time BP 103/58 09/14/2019 10:45 PM Temp 36 ??C (96.8 ??F) 09/14/2019 10:00 PM Pulse 61 09/14/2019 10:51 PM Resp 16 09/14/2019 11:08 PM SpO2 97 % 09/14/2019 11:08 PM Pain Level 5 09/14/2019 10:00 PM Vitals shown include unvalidated device data. Patient Location: PACU/[facility] Level of Consciousness: Awake and Alert Pain Management: Pain Being Addressed PONV: None Cardiovascular Status: At Baseline and Hemodynamically Stable Respiratory Status: At Baseline and Room Air Postoperative Fluid Status: Intravascular EUvolemia Possible Anesthetic Complications: NONE apparent at time of evaluation Final Primary Anesthesia Type: General (The anesthetic type performed was the same as planned.) Comments: Doing well in recovery. Sage Bradford MD Anesthesia Procedure Notes - Rubén Steinberg MD - 09/14/2019 1:28 PM EDTAssociated Order(s): Anesthesia Block Anesthesia Block Date/Time: 09/14/2019 1:20 PM Performed by: Rubén Steinberg MD Authorized by: Jas Crouch MD Start Time: 09/14/2019 1:10 PM End Time: 09/14/2019 1:20 PM Patient Location: Main OR Indication: Post-op Pain Control Post-op pain management at the request of surgeon. Block Type: TAP Laterality: Bilateral Position: Supine Prep: Chlorhexidine, mask, cap, sterile gloves, hand hygeine and patient draped [id number] 22 10 cm Ultrasound Guided: YES and in-plane. Ultrasound Image(s) were saved. Ultrasound guidance was used to identify the targeted neuronal structure. Ultrasound was also used to identify needle position and to identify tissue (bone, muscle, and blood vessels) to prevent inadvertent intraneural or intravascular needle placement and injection. The spread of local anesthetic was confirmed with live ultrasound imaging. Single-Shot: Single-shot BUpivacaine 0.25%, 40 mL no complications Resident/DISTRICT ASSOCIATE JUDGE:: Rubén Steinberg MD Attending Physician:: Jas Crouch MD Anesthesia Preprocedure Evaluation - Christin Panda MD - 09/13/2019 4:39 PM EDT Pre-Anesthesia Evaluation for: Jahaira Montgomery a 59 y.o. female. Procedure(s): @CLOSURE OF ENTEROSTOMY, RESECTION & ANASTOMOSIS OTHER THAN COLORECTAL (WRVU 17.28) SIGMOIDOSCOPY, FLEXIBLE W/WO SPECIMEN BY BRUSHING OR WASHING (WRVU 0.84) CYSTO, STENT PLACEMENT INTRAOP, TEMPORARY (WRVU 2.82) Patient Active Problem List Diagnosis ??? Attention to colostomy ??? Diverticulitis ??? Ostomy nurse consultation Past Medical History: [...] DIAGNOSTIC performed by Emigdio Lanier MD at [facility] ENDOSCOPY ??? TUBAL LIGATION Social History Tobacco Use ??? Smoking status: Current Every Day Smoker Packs/day: 0.50 Years: 40.00 Pack years: 20.00 Types: Cigarettes ??? Smokeless tobacco: Never Used Substance Use Topics ??? Alcohol use: Never Frequency: Never Comment: almost 20 years Social History Substance and Sexual Activity Drug Use Never No Known Allergies Medications: MAR and/or home medications have been reviewed. Physical Exam: There were no vitals filed for this visit. There is no height or weight on file to calculate BMI. Airway Assessment: Mallampati: II TM distance: >3 FB Neck ROM: full Cardiovascular Assessment: cardiovascular exam normal Pulmonary Assessment: pulmonary exam normal Dental Assessment: Misc Assessment: Patient is wearing No contact(s). IV access: Peripheral line Anesthesia Plan: ASA 2 general, with a(n) intravenous induction PRELIMINARY NOTE PER CHART REVIEW (Prior to Patient Exam): Jahaira Montgomery is a 59 y.o. female (BMI 39.8) with a hx significant for diverticulitis s/p Lucy's procedure now presenting for enterostomy closure with Dr. Wiley. PMHx: also chronic knee pain NPO adequate. Denies *. Activity prior to surgery: METS>4. * Meds: Current Outpatient Medications on File Prior to Encounter: polyethylene glycol 3350 (MIRALAX ORAL), Take by mouth., Disp: , Rfl: Allergies No Known Allergies Anesthesia Hx: No chart history available *Pt denies any complications from anesthesia and any Fhx of complications with anesthesia. EKG: NA ECHO: NA Labs: 09/06/19 1148 WBC 11.9* HGB 14.9 HCT 46.5* PLATELET 295 09/06/19 1148 NA 141 K 4.2 CL 103 CO2 27 BUN 16 CREATININE 0.62* 09/06/19 1148 AST 15 ALT 13 ALKPHOS 102 BILITOT 0.2 BILIDIR <0.1 No results for input(s): PT, INR, PTT in the last 168 hours. Lab Results Component Value Date ABORH O Pos 09/06/2019 Pertinent Imaging: NA Plan is for GA with ETT, standard ASA monitors, and adequate IV access, +/- regional block. Adrian Jackson MD 09/13/2019 Region - Other Informed Consent: Plan discussed with attending. PAT Clinic Note documented in this encounter Plan of Treatment Upcoming Encounters Date Type Specialty Care Team Description 09/30/2021 Office Visit General Surgery Paloma Mota, INSPECTOR PACKER GLASS CONTAINER [facility] ER GENERAL SURGERY [place], [place] [address] (Rekha munoz) 09/30/2021 Office Visit Infectious Diseases Werner Harrell MD [facility] ER INFECTIOUS DIS[place], [place] [address] (Rekha munoz) documented as of this encounter Procedures Procedure Name Priority Date/Time Associated Diagnosis Comme nts ANESTHESIA BLOCK Routine 09/14/2019 1:28 PM Resul ts for this EDT procedure are i n the results section. documented in this encounter Results Anesthesia Block (09/14/2019 1:28 PM EDT) Narrative Jas Crouch MD - 09/14/2019 1:28 P M EDT Rubén Steinberg MD ? 09/14/2019 ??1:31 PM Anesthesia Block Date/Time: 09/14/2019 1:20 PM Performed by: Rubén Steinberg M D Authorized by: Jas Crouch MD Start Time: ??09/14/2019 1:10 PM End Time: ??09/14/2019 1:20 PM Patient Location: ??Main OR Indication: ??Post-op Pain Control Post-op pain management at the request o f surgeon. ?? Block Type: ??TAP Laterality: ??Bilateral Position: ??Supine Prep: ??Chlorhexidine, mask, cap, steril e gloves, hand hygeine and patient draped [id number] 22 10 cm Ultrasound Guided: ??YES and in-plane. ? ?Ultrasound Image(s) were saved. Ultrasound guidance was used to identify the targeted neuronal structure. Ultrasound was also used to identify nee dle position and to identify tissue (bone, muscle, and blood vessels) to prevent inadvertent intraneural or intravascular needle plac ement and injection. The spread of local anesthetic was confirmed with live ultrasound imaging. ?? Single-Shot: ??Single-shot BUpivacaine 0.25%, 40 mL no complications ?? Resident/DISTRICT ASSOCIATE JUDGE:: ??Rubén Steinberg MD Attending Physician:: ??Jas Crouch MD Jas Crouch MD IRB COMPLIANCE COORDINATOR [facility] documented in this encounter Visit Diagnoses Not on filedocumented in this encounter Administered Medications Inactive Administered Medications - up to 3 most recent administrations Medication Order MAR Action Action Date Dose Rate Site BUpivacaine (MARACAINE) 0.25% Given 09/14/2019 1:20 PM EDT 40 mL s bolus injection (Anesthesia) Epidural, Starting on Thu09/14/19 at 1320, Until Thu09/14/19 at 1320, Anesthesia Intra-op, Routine dexamethasone (DECADRON) injection Given 09/14/2019 3:23 PM EDT 4 mg PRN, Starting on Thu09/14/19 at 1523, Until Thu09/14/19 at 1923, Anesthesia Intra-op, Routine ePHEDrine 5 mg/mL multi-dose injection Given 09/14/2019 5:23 PM EDT 5 mg PRN, Starting on Thu09/14/19 at 1304, Until Thu09/14/19 at 1923, Anesthesia Intra-op, Routine Given 09/14/2019 4:41 PM EDT 5 mg Given 09/14/2019 3:20 PM EDT 10 mg fentaNYL 50 mcg/mL multi-dose injection Given 09/14/2019 2:36 PM EDT 50 mcg PRN, Starting on Thu09/14/19 at 1322, Until Thu09/14/19 at 1923, Anesthesia Intra-op, Routine Given 09/14/2019 1:00 PM EDT 50 mcg glycopyrrolate (ROBINUL) multi-dose inje ction Given 09/14/2019 6:54 PM EDT 0.6 mg PRN, Starting on Thu09/14/19 at 1854, Until Thu09/14/19 at 1923, Anesthesia Intra-op, Routine HYDROmorphone (DILAUDID) injection Given 09/14/2019 5:14 PM EDT 0.4 mg PRN, Starting on Thu09/14/19 at 1714, Until Thu09/14/19 at 1923, Anesthesia Intra-op, Routine lactated ringers infusion New Bag 09/14/2019 12:47 PM EDT CONTINUOUS PRN, Starting on Thu09/14/19 at 1247, Until Thu09/14/19 at 1923, Anesthesia Intra-op lactated ringers infusion New Bag 09/14/2019 1:08 PM EDT CONTINUOUS PRN, Starting on Thu09/14/19 at 1308, Until Thu09/14/19 at 192, Anesthesia Intra-op levoFLOXacin (LEVAQUIN) 500 mg in dextrose 5% Given 1:07 PM EDT 500 mg 100 mL 500 mg, Intravenous, at 100 mL/hr, ONCE, 1 dose, On Thu09/14/19 at 1100, Administer over 60 minutes. Flame Annealing Machine Setter to OR, Day of Surgery (Day of Procedure), Routine lidocaine (PF) (XYLOCAINE) 100 mg/5 mL (2 %) Given 0 1:00 PM EDT 70 mg injection PRN, Starting on Thu09/14/19 at 1322, Until Thu09/14/19 at 1923, Anesthesia Intra-op, Routine metroNIDAZOLE (FLAGYL) 500 mg in sodium Given 09/14/2019 1:04 PM EDT 500 mg chloride 0.9% 100 mL 500 mg, Intravenous, ONCE, 1 dose, On Thu09/14/19 at 1100, Administer over 30 Minutes, Infuse over 30 minutes. call center operator to OR., Day of Surgery (Day of Procedure), Indication for (Active or Suspected): Prophylaxis neostigmine (BLOXIVERZ) injection Given 09/14/2019 6:54 PM EDT 3 mg PRN, Starting on Thu09/14/19 at 1854, Until Thu09/14/19 at 1923, Anesthesia Intra-op, Routine ondansetron (ZOFRAN) injection Given 09/14/2019 6:13 PM EDT 4 mg PRN, Starting on Thu09/14/19 at 1813, Until Thu09/14/19 at 192, Anesthesia Intra-op, Routine PHENYLephrine Rate/Dose Change 09/14/2019 6:41 15 mcg/min 11.3 mL/hr (WENDI-SYNEPHRINE) 20 mg in PM EDT sodium chloride 250 mL (standard ADULT & Pedi greater than 20kg) infusion CONTINUOUS PRN, Starting on Thu09/14/19 at 1342, Until Thu09/14/19 at 1923, Anesthesia Intra-op, Routine Rate/Dose Change 09/14/2019 6:09 PM EDT 20 mcg/min 15 mL/hr Rate/Dose Change 09/14/2019 5:57 PM EDT 25 mcg/min 18.8 mL/hr propofol (DIPRIVAN) 10 mg/mL bolus injection Given 0 1:26 PM EDT 50 mg (Anesthesia) PRN, Starting on Thu09/14/19 at 1322, Until Thu09/14/19 at 1923, Anesthesia Intra-op Given 09/14/2019 1:00 PM EDT 150 mg rocuronium (ZEMURON) multi-dose injectio n Given 09/14/2019 5:14 PM EDT 20 mg PRN, Starting on Thu09/14/19 at 1518, Until Thu09/14/19 at 1923, Anesthesia Intra-op, Routine Given 09/14/2019 4:34 PM EDT 20 mg Given 09/14/2019 3:41 PM EDT 10 mg succinylcholine chloride (Quelicin) inje ction Given 09/14/2019 1:01 PM EDT 100 mg PRN, Starting on Thu09/14/19 at 1301, Until Thu09/14/19 at 1923, Anesthesia Intra-op, Routine documented in this encounter Care Teams Rv Parts And Service Director Relationship Specialty Start Date End Date Hanane Martinez MD PCP - General Internal Medicine 08/09/19 04/23/21 [address] [place] [address] documented as of this encounter
--- OUTSIDE RECORDS SUMMARY | 2021-09-27 14:55 | XMS_ITS | Encounter Summary ---
:1960 [place] [address] Care Team Providers Name Role Phone Unavailable Primary Care Provider Unavailable Encounter Details Date Type Department Care Team Description 04/23/2019 Ancillary Procedure Radiology Library at [place], Yu Sharpe [facility] [place] [facility] [place] [id number] GENERAL SURGERY [phone] [place], [place] [address] (Wo rk) Social History Tobacco Use Types Packs/Day Years Used Date Never Assessed Alcohol Habits Answer Date Recorded How often [...] Office Visit General Surgery Paloma Mota, [facility] ER GENERAL SURGERY [place], [place] [address] (Wo rk) 09/30/2021 Office Visit Infectious Diseases Werner Harrell MD [facility] ER INFECTIOUS DISEA [place], [place] [address] (Wo rk) documented as of this encounter Procedures Procedure Name Priority Date/Time Associated Diagnosis Comme nts FILM LIBRARY Routine 04/23/2019 12:00 AM Results for this STORAGE ONLY CT EST procedure ar e in ABDOMEN AND PELVIS the resul ts section. documented in this encounter Results Film Library- Storage Only CT Abdomen & Pelvis (04/23/2019 12:00 AM EST) Specimen (Source) Anatomical Location Collection Method / Collectio n Time Received Time / Laterality Volume Narrative MAICOL - 05/12/2019 1:54 PM EST This exam is auto-finalizing. It's purpo se is for storage only. Miryam Wiley MD IMG FILM LIBRARY ORDERABLES Performing Organization Address City/State/ZIP Code Phon e Number [place], [place] documented in this encounter Visit Diagnoses Not on filedocumented in this encounter
--- OUTSIDE RECORDS SUMMARY | 2021-09-27 14:55 | XMS_ITS | Encounter Summary ---
:1960 [place] [address] Care Team Providers Name Role Phone Hanane [...] Expiration Date Visits Requ ested Visits Authorized [id number] 1 1 Encounter Details Date Type Department Care Team Description 09/14/2019 Surgery Main Operating Room Regulo Wiley MD @CLOSE ENTEROSTOMY, [facility] ANGEL, INTESTINE, Hospital DR Chauhan\RESECT COLORECTAL [facility] GENERAL SURGE RY ANAST. (WRVU 27.9) [place] [address] [place] [address] [phone] Social History Tobacco Use Types Packs/Day Years [...] Sign Reading Time Taken Comments Blood Pressure 140/71 09/14/2019 10:42 AM EDT Pulse 59 09/14/2019 10:42 AM EDT Temperature 36.2 ??C (97.2 ??F) 09/14/2019 10:42 AM EDT Respiratory Rate - - Oxygen Saturation 99% 09/14/2019 10:42 AM EDT Inhaled Oxygen Concentration - - Weight 91.6 kg (201 lb 15.1 oz) 09/14/2019 11:17 AM EDT Height 151.6 cm (4' 11.69) [...] which Jahaira has been evaluated already by central office equipment engineer bertha,, the patient has expressed understanding and [...] follow-up appointment already scheduled -call Ana Cordova [phone] for scheduling assistance -call the General Surgery Clinic nurses [phone] for prior authorizations assistance Only if applicable (check either NA or at end after scheduled): [x] NA visiting nurse arrangements in place [] [x] NA ostomy nursing appt. POD# 12-14 [] [x] NA subQ drain(s) stay in until < 30 cc / 24 hours each x 3 days in a row [] [] NA shelley out POD #12-14 (General Surgery nurses clinic for drain/staple removal) [x] *Andrei ANTONIO Jr, et al. Criteria to determine readiness for hospital discharge following colorectal surgery: an international consensus using the Jay technique. Dis Colon Rectum. 2012 Jun;55(4):416-23. Vital [...] and nontender to palpation, incision closed with shelley. Old stoma site is closed not draining [...] SERVICES AND/OR HOSPICE SERVICES) PATIENT'S LOCATION: Jahaira [id number] [place] [address] Door Cutter's Name: Self and sister in law In discussion with the attending physician, it is certified that this patient is under their care and that they, or a Nurse Practitioner,Clinical Nurse specialist or Physician Farm Instructor who is working directly with them, had [...] program if appropriate. HOME HEALTH CARE AGENCY: [facility] PHONE: [phone] FAX: [phone] Start of care:In 48 hrs of d/c Please note that any additional orders needs or changes will need to be obtained from this patient'sPCP: Hanane Martinez MD [address] [facility] [phone] All VNA agencies which cover the area of patient's residence have been reviewed, either verbally or in writing, and patient/family have chosen the home health care agency noted Question Response Notes Agency name and contact information [facility] What services are requested Physical Therapy Responsible MD post discharge contact info [facility] and PCP Scheduled Appointments: Future Appointments and Orders Future Appointments and Orders Future Appointments Provider Department Dept Phone 10/18/2019 9:30 AM Lanette Wiley MD General Surgery at [facility] Arrive at: Chemical Production Engineer Area 4L [phone] 10/18/2019 10:20 AM Beni Lozano MD; UROLOGY, CYSTO1 Urology at [facility] Arrive at: Chemical Production Engineer Area 5B [phone] Future Orders Complete By Expires Referral to Home Health - at DISCHARGE [MJQ1591 CPT(R)] As directed Process Instructions: Scheduling Instructions: Comments: DOCUMENTATION FOR VNA SERVICES (INCLUDING THOSE PATIENTS WITH MEDICARE COVERAGE REQUIRING HOME VNA SERVICES AND/OR HOSPICE SERVICES) PATIENT'S LOCATION: [place] [address] Door Cutter's Name: Self and sister in law In discussion with the attending physician, it is certified that this patient is under their care and that they, or a Nurse Practitioner,Clinical Nurse specialist or Physician Farm Instructor who is working directly with them, had [...] program if appropriate. HOME HEALTH CARE AGENCY: [facility]. PHONE: [phone] FAX: [phone] Start of care:In 48 hrs of d/c Please note that any additional orders needs or changes will need to be obtained from this patient'sPCP: Hanane Martinez MD [address] [facility] [id number] All VNA agencies which cover the area of patient's residence have been reviewed, either verbally or in writing, and patient/family have chosen the home health care agency noted Questions: Agency name and contact information: [facility] Patient location post discharge: What services are requested: Physical Therapy Start date: Responsible MD post discharge contact info: [facility] and PCP Walker standard [EQ135 Custom] As directed Process Instructions: Scheduling Instructions: Comments: Jahaira Montgomery [address] [facility] [address] Diagnosis:with Unsteady gait s/p Rahman's procedure reversal now POD 6 Significant weakness, ataxia or gait abnormality Patient's: Hgt: 4.5 Wgt: 211 # VENDOR: [facility] [place] [facility] Located @ [facility] Center [place], [place] Ordering: Front wheel walker Deliver to [facility] room #: 306 Questions: Vendor Name/Contact information: [facility] @ [facility] Instructions Given to Patient at Discharge: Patient [...] Medication: Tylenol should be used as primary yfqw-qdq-wrqlppk pain reliever; 650mg every 6 hours or [...] with information about your appointments. Please call [phone] (clinic number for appointments only) to confirm date and time of your appointments or if you do not receive information about your appointment in a timely manner. Future Appointments Date Time Provider Department Center 10/18/2019 9:30 AM Lanette Wiley MD [facility] SURG [facility] 10/18/2019 10:20 AM Beni Lozano MD MSO [...] AND HOLIDAYS: ASK FOR THE SURGERY RESIDENT MEDICAL RECORDS SECRETARY IF ANY OF THE ABOVE OCCUR. Divison of Colon and Rectal Surgery ??? [facility] ??? [address] ??? [place] [address] ??? [phone] ??? ~~~~~~~~~~~~~~~~~~~~~~~~~~~~~~~~~~~~~~~~~~~~~~~~~~~~~~~~~~~~~~~~~~~ Instructions from urology General Instructions [...] urinate please call the urology office at [phone] before 5PM or [phone] after hours. It is normal for the ureteral stent to cause some irritation in your bladder. You may feel that you need to urinate often or with urgency, also there may be irritation when you urinate. This is normal.If you cannot tolerate this irritation or if you have severe back or side pain, you should call our office [phone] before 5PM or [phone] after hours. Call Doctor for: Please call urology if you have copious blood in your urine or severe back or side pain. The number for questions for urology is [phone] before 5 PM weekdays and [phone] after 5 PM and weekends. Suggested Pain [...] does not require general anesthesia. Please call [phone] (clinic number for appointments) toconfirm date and time of your appointment if you do not receive your apointment in 10 days. [facility] Surgery - Provider Contact Information: [phone] Primary Camryn Physician: Hanane Martinez MD [address] [facility] [id number] Signed: Mckenna Sandoval MD 09/19/19 3:07 PM [...] urinate please call the urology office at [phone] before 5PM or [phone] after hours. It is normal for the ureteral stent to cause some irritation in your bladder. You may feel that you need to urinate often or with urgency, also there may be irritation when you urinate. This is normal.If you cannot tolerate this irritation or if you have severe back or side pain, you should call our office [phone] before 5PM or [phone] after hours. Call Doctor for: Please call urology if you have copious blood in your urine or severe back or side pain. The number for questions for urology is [phone] before 5 PM weekdays and [phone] after 5 PM and weekends. Suggested Pain [...] does not require general anesthesia. Please call [phone] (clinic number for appointments) toconfirm date and [...] Medication: Tylenol should be used as primary oxan-mqp-dlayiqb pain reliever; 650mg every 6 hours or [...] with information about your appointments. Please call [phone] (clinic number for appointments only) to confirm date and time of your appointments or if you do not receive information about your appointment in a timely manner. Future Appointments Date Time Provider Department Center 10/18/2019 9:30 AM Lanette Wiley MD [facility] SURG [facility] 10/18/2019 10:20 AM Beni Lozano MD MSO [...] AND HOLIDAYS: ASK FOR THE SURGERY RESIDENT MEDICAL RECORDS SECRETARY IF ANY OF THE ABOVE OCCUR. Divison of Colon and Rectal Surgery ??? [facility] ??? [address] ??? [place] [address] ??? [phone] ??? ~~~~~~~~~~~~~~~~~~~~~~~~~~~~~~~~~~~~~~~~~~~~~~~~~~~~~~~~~~~~~~~~~~~ documented in this encounter Medications [...] 09/19/2019 2:37 PM EDT Office of Care Management(OCM)/Automotive Internet Sales Consultant(CM)/Discharge Planning Service: [facility] CM Paloma FloresRN,BSN,MA,[facility] pgr [phone] Reviewed in interdisciplinary rounds with [facility] team, CM, cryptoanalysis teacher, [facility] Pt is stable for d/c today. Met w pt about walker and home PT services as recommended by [facility] PT. She agreed. Reviewed choices and that she had a choice; none of her options were [facility] affiliates. Listed the 2 AGRICULTURAL REAL ESTATE AGENT that serve her town. Listed 3-4 DME vendors for the walker. Pt agreed to: [facility]. PHONE: [phone] FAX: [phone] AND Ortho Care Located @ [facility] Center [place], [place] D/C is as soon as gets [...] and tenderness to palpation along incision with shelley, some crusted drainage and slightly bruising no [...] Full Dani Ewing MD 09/18/2019 Colorectal Surgery p.[phone] Hanane Lee RN - 09/18/2019 4:24 AM [...] DEMARCO; Age: 5 1960; 59 y.o. [facility]: [facility] Today's Date: 09/17/19 ID: Jahaira Montgomery [...] Ewing MD 09/17/2019 Colorectal Surgery Team pager #[phone] Dani Ewing MD - 09/16/2019 10:14 AM [...] diffusely especially upper mid abdomen, incision with shelley c/d/i slight bruising no drainage or erythema. Old stoma site dressed : Pat with forgesmith output Ext: warm and well perfused, no [...] urology know if any questions. Consult pager #[phone] Isaac Prado MD Associated attestation - Anil [...] Minutes, Occupational Therapy: 10 ADL training Pager: [phone] JOSHUA LEWIS OT Occupational Therapy Rehabilitation Department Med Student Progress Note - Niles Arellano - 09/19/2019 7:10 AM EDT Colorectal Surgery Inpatient Progress Note Patient Name: Jahaira DEMARCO; Age: 5 1960; 59 y.o. Room/Bed: [address] [place] [address] Today's Date: 09/19/19 ID: Jahaira Montgomery is [...] Niles Arellano 09/19/2019 Colorectal Surgery Team pager #[phone] Plan of Care - Juju Araya RN [...] denies pain this shift. 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 ABD binder in place. Patient experiencing [...] for skin breakdown, At risk to fall, Naper precautions , Room air, (abdominal incision), abdominal binder Lines: Thom, PIV and Pat Activity Orders: Tkopmido2o/day Mobility and Positioning Recommendations: ?? Pt. to [...] statedabove. Total Evaluation Minutes, Physical Therapy: 48(TEFx3 ([id number], [phone])) Bill Wing, TOUR OPERATOR Pager: [phone] Physical Therapy Inpatient Rehabilitation Department Initial Assessments [...] file: None Primary care provider on file: aHnane Martinez MD [phone] Advance Directive on file and Code Status: Given [place] Advance Directive booklet: wishes to identify brother Solomon and rob Chavez as DPOAHs, Full Code Patient???s Functional Status: Stand by assist Living Situation: Lives with brothparvin Carbajal and jlfdjz-it-ozy Kimberly who patient reports are supportive, independent in IADLs including driving, available to assist at home, and comfortable with doing wound care. [address] [facility] [address] Supports: Family Assessment: Patient with no apparent RNCM/SW needs at this time. No housing, transportation, insurance, resources concerns identified at this time. Supports in place to achieve a safe post-hospital transition. No identified barriers to accessing necessary care and/or follow-up after discharge. Plan: Patient to d/c to home via brother Solomon and rqnhmt-ds-sea Kimberly's private vehicle when medically ready. facilities project manager/Supervisory Geographer will continue to follow patient???s progress and remain available if situation changes for coordination of care, psychosocial support and/or discharge planning. Kp Mccray RN Pager [phone] Plan of Care - Hanane Lee RN [...] Abdominal binder in place, no new drainage. [place] intact to midline incision. Elevated BP at 0400 vitals, reported to press operator carbon blocks MD, no symptoms reported. No other acute [...] DEMARCO; Age: 5 1960; 59 y.o. Room/Bed: [address] [place], [place] [address]A Today's Date: 09/17/19 ID: Jahaira Montgomery is [...] Niles Priscilla 09/17/2019 Colorectal Surgery Team pager #[phone] Plan of Care - Shruthi Kang RN [...] Outcome: Ongoing (Interventions Implemented as Appropriate) 09/16/19 2198 Plan of Care Review Progress progress towards [...] Wiley MD - 09/15/2019 1:11 PM EDT [facility] Operative Note Patient Name: Jahaira Montgomery : [id number] MR#: [id number] Case Date: 09/14/2019 Surgeon: Surgeon(s) and Role: [...] Order Time SPECIMEN TO PATHOLOGY OR 28 22700 DIVERTICULITIS rectosigmoid junction excision No 09/14/2019 4:13 PM Number of tissue samples (in container) 1 Time specimen removed from patient: 4:12 PM Biospecimen to store? No SPECIMEN TO PATHOLOGY OR28 88067 DIVERTICULITIS Prior Colostomy Site excision No 09/14/2019 [...] sterile saline. The midlineincision was closed using shelley and the colostomy site was closed with [...] tobacco use, obesity,??umbilical hernia repair, hysterectomy, lap ahttie 1995,??diverticulitis s/p rahman's procedure 03/2019 for hinchey [...] DIAGNOSTIC performed by Emigdio Lanier MD at [facility] ??? TUBAL LIGATION Social History: Patient [...] instrument andmeasurable assessment of functional outcome. Pager: [phone] JOSHUA LEWIS OT 09/15/2019 Occupational Therapy Rehabilitation [...] DIAGNOSTIC performed by Emigdio Lanier MD at [facility] ??? TUBAL LIGATION Social History: Home [...] for skin breakdown, At risk to fall, Naper precautions , Room air, (abdominal incision), abdominal binder Lines: Thom, PIV and Pat Activity Orders: Vhpsztsv4m/day Mobility and Positioning Recommendations: ?? Pt. to [...] Therapy: 47(eval) Patricia Rosas PT, DPT Pager: [phone] Physical Therapy Inpatient Rehabilitation Department Med Student Progress Note - Niles Arellano - 09/15/2019 7:00 AM EDT Colorectal Surgery Inpatient Progress Note Patient Name: Jahaira Montgomery ; Age: 5 1960; 59 y.o. [facility] Today's Date: 09/15/19 ID: Jahaira Montgomery [...] Niles Arellano 09/15/2019 Colorectal Surgery Team pager #[phone] Plan of Care - Mark Min RN [...] Operative Note Patient Name: Jahaira Montgomery : [id number] MR#: [id number] Case Date: 09/14/2019 Surgeon: Surgeon(s) and Role: [...] Order Time SPECIMEN TO PATHOLOGY OR 28 92426 DIVERTICULITIS rectosigmoid junction excision No 09/14/2019 4:13 PM Number of tissue samples (in container) 1 Time specimen removed from patient: 4:12 PM Biospecimen to store? No SPECIMEN TO PATHOLOGY OR28 84909 DIVERTICULITIS Prior Colostomy Site excision No 09/14/2019 [...] ADDITIONAL DESCENDING COLON eD-H Order Id number [id number] Fluids: Intraprocedure Crystalloid Total None PRBCs: none [...] Prado MD - 09/14/2019 2:39 PM EDT [facility] Operative Note Patient Name: Jahaira Montgomery : [id number] MR#: [id number] Case Date: 09/14/2019 Surgeon: Surgeon(s) and Role: [...] Operative Note Patient Name: Jahaira Montgomery : [id number] MR#: [id number] Case Date: 09/14/2019 Surgeon: Surgeon(s) and Role: [...] Office Visit General Surgery Paloma Mota, TAMMY [facility] GENERAL SURGERY [place], [place] [address] (Wo rk) 09/30/2021 Office Visit Infectious Diseases Anil Harrell MD [facility] [place], [place] [address] (Wo rk) Scheduled Orders Name [...] EKG 12 Lead (09/18/2019 11:29 AM EDT) [facility] gist Method Time Signature Ventricular rate 70 BPM MUSE SYSTEM Atrial Rate 70 BPM MUSE SYSTEM P-R Interval 118 ms MUSE SYSTEM QRS Duration 80 ms MUSE SYSTEM Q-T Interval 398 ms MUSE SYSTEM QTC Calculated 429 ms MUSE SYSTEM (Bezet) Calculated P [place] 37 degrees MUSE SYSTEM Calculated R [place] 28 degrees MUSE SYSTEM Calculated T [place] 61 degrees MUSE SYSTEM INTERPRETATION Normal sinus [...] Signature POC Glucose 93 65 - 199 [facility] mg/dL [facility] Comment: Supplemental ranges: <140 mg/dL before meals <180 mg/dL all other times of the day Specimen Anatomical Collection Method Collection Time Receive d Time (Source) Location / / Volume Laterality Blood specimen 09/17/2019 2:20 PM 020 2:20 (specimen) EDT PM EDT Lanette Wiley MD POINT OF CARE TEST ORDERABLE S Performing Organization Address City/State/ZIP Code Phon e Number [place] [id number] POCT Glucose (09/17/2019 7:42 AM EDT) athologist Signature POC Glucose 147 65 - 199 [place] mg/dL [facility] Comment: Supplemental ranges: <140 mg/dL before meals <180 mg/dL all other times of the day Specimen Anatomical Collection Method Collection Time Receive d Time (Source) Location / / Volume Laterality Blood specimen 09/17/2019 7:42 AM 7:42 (specimen) EDT AM EDT Lanette Wiley MD POINT OF CARE TEST ORDERABLE S Performing Organization Address City/State/ZIP Code Phon e Number [address] POCT Glucose (09/16/2019 8:14 PM EDT) athologist Signature POC Glucose 146 65 - 199 [place] mg/dL [facility] Comment: Supplemental ranges: <140 mg/dL before meals <180 mg/dL all other times of the day Specimen Anatomical Collection Method Collection Time Receive d Time (Source) Location / / Volume Laterality Blood specimen 09/16/2019 8:14 PM 020 8:14 (specimen) EDT PM EDT Lanette Wiley MD POINT OF CARE TEST ORDERABLE S Performing Organization Address City/State/ZIP Code Phon e Number [address] POCT Glucose (09/16/2019 4:05 PM EDT) athologist Signature POC Glucose 136 65 - 199 [place] mg/dL [facility] Comment: Supplemental ranges: <140 mg/dL before meals <180 mg/dL all other times of the day Specimen Anatomical Collection Method Collection Time Receive d Time (Source) Location / / Volume Laterality Blood specimen 09/16/2019 4:05 PM 020 4:05 (specimen) EDT PM EDT Lanette Wiley MD POINT OF CARE TEST ORDERABLE S Performing Organization Address City/State/[place] [address] POCT Glucose (09/16/2019 11:26 AM EDT) athologist Signature POC Glucose 124 65 - 199 [place] mg/dL [facility] Comment: Supplemental ranges: <140 mg/dL before meals <180 mg/dL all other times of the day Specimen Anatomical Collection Method Collection Time Receive d Time (Source) Location / / Volume Laterality Blood specimen 09/16/2019 11:26 0 (specimen) AM EDT 11:26 AM EDT Lanette Wiley MD POINT OF CARE TEST ORDERABLE S Performing Organization Address City/State/ZIP Code Phon e Number [address] POCT Glucose (09/16/2019 6:51 AM EDT) athologist Signature POC Glucose 139 65 - 199 [place] mg/dL [facility] Comment: Supplemental ranges: <140 mg/dL before meals <180 mg/dL all other times of the day Specimen Anatomical Collection Method Collection Time Receive d Time (Source) Location / / Volume Laterality Blood specimen 09/16/2019 6:51 AM 020 6:51 (specimen) EDT AM EDT Lanette Wiley MD POINT OF CARE TEST ORDERABLE S Performing Organization Address City/State/ZIP Code Phon e Number [address] POCT Glucose (09/15/2019 8:03 PM EDT) athologist Signature POC Glucose 127 65 - 199 [place] mg/dL [facility] Comment: Supplemental ranges: <140 mg/dL before meals <180 mg/dL all other times of the day Specimen Anatomical Collection Method Collection Time Receive d Time (Source) Location / / Volume Laterality Blood specimen 09/15/2019 8:03 PM 020 8:03 (specimen) EDT PM EDT Lanette Wiley MD POINT OF CARE TEST ORDERABLE S Performing Organization Address City/State/[place] [address] POCT Glucose (09/15/2019 3:20 PM EDT) athologist Signature POC Glucose 111 65 - 199 [place] mg/dL [facility] Comment: Supplemental ranges: <140 mg/dL before meals <180 mg/dL all other times of the day Specimen Anatomical Collection Method Collection Time Receive d Time (Source) Location / / Volume Laterality Blood specimen 09/15/2019 3:20 PM 020 3:20 (specimen) EDT PM EDT Lanette Wiley MD POINT OF CARE TEST ORDERABLE S Performing Organization Address City/State/ZIP Code Phon e Number [address] POCT Glucose (09/15/2019 11:39 AM EDT) athologist Signature POC Glucose 117 65 - 199 [place] mg/dL [facility] Comment: Supplemental ranges: <140 mg/dL before meals <180 mg/dL all other times of the day Specimen Anatomical Collection Method Collection Time Receive d Time (Source) Location / / Volume Laterality Blood specimen 09/15/2019 11:39 0 (specimen) AM EDT 11:39 AM EDT Lanette Wiley MD POINT OF CARE TEST ORDERABLE S Performing Organization Address City/State/ZIP Code Phon e Number [address] POCT Glucose (09/15/2019 7:03 AM EDT) athologist Signature POC Glucose 131 65 - 199 [place] mg/dL [facility] Comment: Supplemental ranges: <140 mg/dL before meals <180 mg/dL all other times of the day Specimen Anatomical Collection Method Collection Time Receive d Time (Source) Location / / Volume Laterality Blood specimen 09/15/2019 7:03 AM 7:03 (specimen) EDT AM EDT Lanette Wiley MD POINT OF CARE TEST ORDERABLE S Performing Organization Address City/State/[place] [address] Hemoglobin and Hematocrit, blood (09/15/2019 4:50 AM EDT) athologist Signature Hemoglobin 14.0 11.7 - 15.5 [facility] gm/dL [facility] Hematocrit 44.2 35.7 - 45.8 [facility] % [facility] Specimen Anatomical Collection Method Collection Time Receive d Time (Source) Location / / Volume Laterality Blood specimen 09/15/2019 4:50 AM 020 5:02 (specimen) EDT AM EDT Resulting Agency Comment Spec In Lab Lanette Wiley MD HEMATOLOGY ORDERABLES Performing Organization Address City/[facility] Phon e Number [address] Creatinine (09/15/2019 4:50 AM EDT) athologist Signature Creatinine 0.84 0.70 - [facility] 1.20 mg/dL [facility] Estimated GFR 77 >=60 [facility] mL/min/1.7 [facility] 3 m?? HOSPITAL LABORATORY Comment: The eGFR was calculated using the CKD-EP I equation. As with all creatinine based estimates of kidney function, eGFR values calculated with the CKD-EPI equation are not accurate in patients wi th acute kidney failure, extremes of body mass or the acutely ill. http://[employer]/[facility] eGFR 89 >=60 mL/min/1.73 m?? [facility] Comment: The eGFR was calculated using the CKD-EP I equation. As with all creatinine based estimates of kidney function, eGFR values calculated with the CKD-EPI equation are not accurate in patients wi th acute kidney failure, extremes of body mass or the acutely ill. http://[employer]/[facility] Specimen Anatomical Collection Method Collection Time Receive d Time (Source) Location / / Volume Laterality Blood specimen 09/15/2019 4:50 AM 020 5:02 (specimen) EDT AM EDT Resulting Agency Comment Spec In Lab Lanette Wiley MD CHEMISTRY ORDERABLES Performing Organization Address City/[facility]/ZIP [facility] [place] [address] (ABNORMAL) Hemoglobin and Hematocrit, blood (09/14/2019 7:55 PM EDT) athologist Signature Hemoglobin 15.5 11.7 - [facility] 15.5 gm/dL [facility] Hematocrit 49.7 (H) 35.7 - [facility] 45.8 % [facility] Specimen Anatomical Collection Method Collection Time Receive d Time (Source) Location / / Volume Laterality Blood specimen 09/14/2019 7:55 PM 020 8:08 (specimen) EDT PM EDT Resulting Agency Comment Spec In Lab Lanette Wiley MD HEMATOLOGY ORDERABLES Performing Organization Address City/State/ZIP [place] [address] (ABNORMAL) Basic Metabolic Panel (non-fasting) (09/14/2019 7:55 PM EDT) athologist Signature Glucose Lvl 238 (H) 65 - 199 [facility] mg/dL [facility] Comment: Diabetes: >=200 mg/dL plus symp toms BUN 11 8 - 18 mg/dL [facility] Creatinine 0.65 (L) 0.70 - 1.20 mg/dL [facility] Sodium 140 135 - 145 mmol/L [facility] Potassium 3.8 3.5 - 5.0 mmol/L [facility] Comment: Please note: ??Patients with WBC >100,00 0 may have falsely elevated Potassium levels. ??For accurate Potassium quantif ication in these patients send serum separator tube (gold top) for subsequent determinations. ??Contact the Clinical Chemistry Laboratory if there are any qu estions. Chloride 108 (H) 98 - 107 mmol/L [facility] CO2 20 (L) 22 - 31 mmol/L [facility] Anion Gap 12 5 - 15 mmol/L [facility] Calcium 8.1 (L) 8.5 - 10.5 mg/dL [facility] Estimated GFR 99 >=60 mL/min/1.73 m?? [facility] Comment: The eGFR was calculated using the CKD-EP I equation. As with all creatinine based estimates of kidney function, eGFR values calculated with the CKD-EPI equation are not accurate in patients wi th acute kidney failure, extremes of body mass or the acutely ill. http://[employer]/[facility] eGFR 114 >=60 mL/min/1.73 m?? [facility] Comment: The eGFR was calculated using the CKD-EP I equation. As with all creatinine based estimates of kidney function, eGFR values calculated with the CKD-EPI equation are not accurate in patients wi th acute kidney failure, extremes of body mass or the acutely ill. http://[employer]/[facility] Specimen Anatomical Collection Method Collection Time Receive d Time (Source) Location / / Volume Laterality Blood specimen 09/14/2019 7:55 PM 020 8:08 (specimen) EDT PM EDT Resulting Agency Comment Spec In Lab Lanette Wiley MD CHEMISTRY ORDERABLES Performing Organization Address City/[facility] Phon e Number [address] Specimen to Pathology (09/14/2019 5:36 PM EDT) Specimen Anatomical Collection Method Collection Time Receive d Time (Source) Location / / Volume Laterality AP Specimen 09/14/2019 5:36 PM 0 5:36 EDT PM EDT Narrative [facility] [place] 09/14/2019 5:36 PM EDT Specimen requisition ordered. ??Separate Pathology report to follow Lanette Wiley MD PATHOLOGY/CYTOLOGY ORDERABLE S Performing Organization Address City/State/[place] [address] Specimen to Pathology (09/14/2019 4:31 PM EDT) Specimen Anatomical Collection Method Collection Time Receive d Time (Source) Location / / Volume Laterality AP Specimen 09/14/2019 4:31 PM 0 4:31 EDT PM EDT Narrative [facility] [place] 09/14/2019 4:31 PM EDT Specimen requisition ordered. ??Separate Pathology report to follow Lanette Wiley MD PATHOLOGY/CYTOLOGY ORDERABLE S Performing Organization Address City/[facility] [place] [address] Specimen to Pathology (09/14/2019 4:13 PM EDT) Specimen Anatomical Collection Method Collection Time Receive d Time (Source) Location / / Volume Laterality AP Specimen 09/14/2019 4:13 PM 0 4:13 EDT PM EDT Narrative [facility] - 09/14/2019 4:13 PM EDT Specimen requisition ordered. ??Separate Pathology report to follow Lanette Wiley MD PATHOLOGY/CYTOLOGY ORDERABLE S Performing Organization Address City/State/ZIP [place] [address] Surgical Pathology Report (09/14/2019 4:12 PM EDT) Component Value Ref Test Analysis Performed At [facility] Range Method Time Signature Surgical ? Location: 3WST; 0306; A [facility] Report The signing pathologist has (i) examined the relevant preparation(s) for the [facility] specimen(s) and (ii) rendered or confirmed the [...] English MD Verified: ??09/20/2019 ?Pathologist Performed at: ??-[facility] Dept. of Pathology, [place], [place] SPECIMEN(S) SUBMITTED A - rectosigmoid junction, [...] with diverticulum. Wall: 0.5 cm thick. Sections/Processing: Manufacturing Controller sections in 4 cassettes as follows: ?A1-A2: ??Manufacturing Controller section of mucosa of a diverti culum [...] in, central type. . SPECIMEN PROCESSING Sections/Processing: Manufacturing Controller sections in 4 cassettes as follows: ?B1-B2: ??Terminal margins and traveling representative section ?B3: ??Manufacturing Controller section of donut ?B4: ??Manufacturing Controller section of stoma C - Labeled/Fixative: EEA doughnuts, fresh. Quantity/Size: ??Two, averaging 1.8 x 1 x 0.9 cm. Tissue Description: Annular portions of burdick-pink mucosa. Sections/Processing: Manufacturing Controller section of each is submitted in 1 cassette veto perdue C1. ??carmen Specimen (Source) Anatomical Collection Method Collection Time Re ceived Time Location / / Volume Laterality 09/14/2019 4:12 PM EDT Lanette Wiley MD PATHOLOGY/CYTOLOGY ORDERABLE S Performing Organization Address City/State/ZIP [place] [address] [facility] [address] XR Fluoro No Rad <1Hr - OR Use (09/14/2019 2:40 PM EDT) Specimen (Source) Anatomical Location Collection Method / Collectio n Time Received Time / Laterality Volume Narrative [facility] - 09/14/2019 2:40 PM EDT This exam is auto-finalizing. No interpr etation was done. Lanette Wiley MD IMG FLUORO ORDERABLES Performing Organization Address City/State/ZIP Code Phon e Number [place], [place] POCT Glucose (09/14/2019 10:34 AM EDT) athologist Signature POC Glucose 115 65 - 199 [facility] mg/dL [facility] Comment: Supplemental ranges: <140 mg/dL before meals <180 mg/dL all other times of the day Specimen Anatomical Collection Method Collection Time Receive d Time (Source) Location / / Volume Laterality Blood specimen 09/14/2019 10:34 0 (specimen) AM EDT 10:34 AM EDT Lanette Wiley MD POINT OF CARE TEST ORDERABLE S Performing Organization Address City/State/ZIP [place] [address] documented in this encounter Visit Diagnoses Not on filedocumented in this encounter Admitting Diagnoses Diagnosis Diverticulitis Diverticulitis of colon (without mention of hemorrhage) documented in this encounter Administered Medications Inactive Administered Medications - up to 3 most recent administrations Medication Order MAR Action Action Date Dose Rate Site acetaminophen (Tylenol) tablet Given 09/18/2019 9:21 AM EDT 1,00 0 mg 1,000 mg [...] on Thu09/19/19 at 0815, Until Discontinued, Routine enoxaparin (LOVENOX) injection 40 [...] Given 09/17/2019 12:47 PM EDT 40 mg ibuprofen (Advil;Motrin) tablet 600 mg 600 mg, Oral, EVERY 6 HOURS PRN, Startin g on Thu09/18/19 at 0905, Until Thu09/19/19 at 1820, Pain, Administer orally with milk or food to minimize GI irritation. Maximum dose of 3200 mg from all sources in 24 hours, Routine labetalol (NORMODYNE,TRANDATE) injection 10-20 Given 0 09/18/2019 1:21 PM EDT 10 mg mg 10-20 mg, Intravenous, EVERY 4 HOURS PRN, Starting on Thu09/18/19 at 1045, Until Thu09/19/19 at 1820, High Blood Pressure, Give for SBP > 175. May repeat for 20mg total if inadequate response after 30 min, Routine lidocaine (LIDODERM) 5 Patch Applied 09/17/2019 9:06 [...] Given 09/18/2019 10:45 AM EDT 5 mLs traMADoL (Ultram) tablet 50-100 mg 50-100 mg, Oral, EVERY 6 HOURS PRN, Starting on 06/02 at 0741, Until 7/6/20 at 1820, Pain, Please give 50mg f [...] Shin, GENA)1609 (Given - Provider: Nikos Shin, RN)2136 (Given - Provider: Hanane Lee RN) 0342 (Given - Provider: Hanane Lee RN)0921 (Given - Provider: Nikos Shin RN)1600 (Not Given - Provider: Nikos Shin RN [...] 10 mg 0855 (Given - Provider: Lima Chu RN) 10 mg, Oral, DAILY, First dose (after la st modification) on Thu09/19/19 at 0815, Until Discontinued, Routine amLODIPine (Norvasc) tablet 5 mg (CANCELED) 0921 (Given - Provider: Nikos Shin RN) 5 mg, Oral, DAILY, First dose on 09/17 at 0945, Until Discontinued, Routine enoxaparin (LOVENOX) injection 40 mg 1247 (Given - Pro vider: Nikos Shin RN) 1156 (Given - Provider: Nikos Shin RN) 1341 (Giv en - Provider: Lima Chu RN - Comment: Administered per brother) 40 [...] (CANCELED) 0408 (G iven - Provider: Shruthi Kang, GENA)0906 (Given - Provider: Nikos Shin, GENA)1609 (Given - Provider: Nikos Shin, GENA)2100 (Not Given - Provider: Hanane Lee RN - Reason: Patient/family refused) 0300 (Not Given - Provider: Hanane zamora RN - Reason: Patient/family refused)0900 (Not Given - Provider: Patricia Fuller RN - Reason: Medication Discontinued) 15 mg, Intravenous, USER SPECIFIED (4 ti mes per day), 20 doses, First dose on Thu09/14/19 at 2100, Last dose on Thu09/19/19 at 1500, Do not administer with other [...] refused) 0854 (Not Given - Provider: Lima melendrez RN - Reason: Patient/family refused) 3 patch, Transdermal, DAILY, First dose on Thu09/16/19 at 0900, Until Discontinued, Apply patch(es) for 12 hours, and then remove for 12 hours, Routine lidocaine (LIDODERM) patch REMOVAL(Linked Group 1) 210 0 (Patch Removed - Provider: Hanane Lee RN) 2100 (Patch Not Removed (add comment) - Provider: Juju Araya RN - Comment: not present upon assessment) Transdermal, NIGHTLY, First dose on Thu09/16/19 at 2100, Until Discontinued, Remove Lidocaine Patch sodium chloride 0.9 % (flush) flush 5 mL 0907 (Given - Provider: Nikos Shin RN)2137 (Given - Provider: Hanane Lee RN) 1045 (Given - Provider: Patricia Fuller RN)2014 (Given - Provider: Juju Araya, GENA) 0855 (Given - Provider: Lima Chu RN) 5 mL, Intravenous, 2 TIMES DAILY, First dose on Thu09/14/19 at 2115, Until Discontinued, Recovery (Recovery-Hospital Unit), Routine PRN Medication Order 09/17/2019 09/18/2019 09/19/2019 ibuprofen (Advil;Motrin) tablet 600 mg 600 mg, Oral, EVERY 6 HOURS PRN, Startin g Thu09/18/19 at 0905, Until Thu09/19/19 at 1820, Pain, Administer orally with milk or food to minimize GI irritation. Maximum dose of 3200 mg from all sources in 24 hours, Routine labetalol (NORMODYNE,TRANDATE) injection 10-20 mg (COMPLETED ) 920 (Given - Provider: Nikos Shin RN - Comment: recieved 5mg then IV started burning, IV team paged) 10-20 mg, Intravenous, EVERY 4 HOURS PRN , 1 dose, Starting Thu09/18/19 at 0857, Until Discontinued, High Blood Pressure, Give for SBP > 175. May repeat for 20mg total if inadequate response after 30 min, Routine labetalol (NORMODYNE,TRANDATE) injection 10-20 mg 1321 (Given - Provider: Nikos Shin, GENA) 10-20 mg, Intravenous, EVERY 4 HOURS PRN , Starting Thu09/18/19 at 1045, Until Thu09/19/19 at 1820, High [...] Patch
documented in this encounter Care Teams Dermatology Procedural Physician Relationship Specialty Start Date End Date Hanane Martinez MD PCP - General Internal Medicine 08/09/19 04/23/21 [address] [place] [id number] documented as of this encounter
--- OUTSIDE RECORDS SUMMARY | 2021-09-27 14:55 | XMS_ITS | Encounter Summary ---
:1960 Author Organization [facility] [place] [address] Care Team Providers Name Role Phone Hanane Martinez MD Primary Care Provider Encounter Details Date Type Department Care Team Description 08/18/2019 Surgery Gastroenterology at [facility] Emigdio Lanier COLONOSCOPY, [facility] [place] [address] [facility] [phone] DR GASTROENTEROLOGY [place], [place] [address] (Wo rk) Social History Tobacco Use Types Packs/Day Years Used Date Current Every Day Smoker 0.5 Smokeless Tobacco: Never Used Alcohol Use Standard [...] Sign Reading Time Taken Comments Blood Pressure 125/61 08/18/2019 2:00 PM EDT Pulse 61 08/18/2019 1:45 PM EDT Temperature 37 ??C (98.6 ??F) 08/18/2019 12:31 PM EDT Respiratory Rate 17 08/18/2019 2:00 PM EDT Oxygen Saturation 96% 08/18/2019 2:00 PM EDT Inhaled Oxygen Concentration - - Weight 87.5 kg (193 lb) 08/18/2019 12:31 PM EDT Height - - Body Mass Index 38.07 07/26/2019 1:09 PM EDT documented in this encounter Discharge Instructions Discharge InstructionsJas Joe RN - 08/18/2019 1:56 PM EDT Colonoscopy: What to Expect at Home Your Recovery Your doctor will talk to you about when you will need your next colonoscopy. Your doctor can help you decide how often you need to be checked. This will depend on the results of your test and your riskfor colorectal cancer. After the test, you may be bloated or have gas pains. You may need to pass gas. If a biopsy was doneor a polyp was removed, you may have streaks of blood in your stool (feces) for a few days. Problemssuch as heavy rectal bleeding may not occur until several weeks after the test. This isn't common. But it can happen after polyps are removed. This care sheet gives you a general idea about how long it will take for you to recover. But each person recovers at a different pace. Follow the steps below to get better as quickly as possible. How can you care for yourself at home? Activity Rest when you feel tired. ?? You can do your normal activities when it feels okay to do so. Diet ?? Follow your doctor's directions for eating. ?? Unless your doctor has told you not to, drink plenty of fluids. This helps to replace the fluidsthat were lost during the colon prep. ?? Do not drink alcohol. Medicines ?? Your doctor will tell you if and when you can restart your medicines. He or she will also give you instructions about taking any new medicines. ?? If you take blood thinners, such as warfarin (Coumadin), clopidogrel (Plavix), or aspirin, be sure to talk to your doctor. He or she will tell you if and when to start taking those medicines again.Make sure that you understand exactly what your doctor wants you to do. ?? If polyps were removed or a biopsy was done during the test, your doctor may tell you not to take aspirin or other anti-inflammatory medicines for a few days. These include ibuprofen (Advil, Motrin) and naproxen (Aleve). Other instructions ?? For your safety, do not drive or operate machinery until the medicine wears off and you can think clearly. Your doctor may tell you not to drive or operate machinery until the day after your test. ?? Do not sign legal documents or make major decisions until the medicine wears off and you can think clearly. The anesthesia can make it hard for you to fully understand what you are agreeing to. Additional Information for Sedation Patients For patients who received sedation: ?? You may have received medications before and/or during your procedure which effects your judgement and reaction time. ?? Do not drive, operate machinery, drink alcoholic beverages or make important decisions for 24 hours. ?? Be careful on stairs as you may be unsteady on your feet. ?? You may eat a regular diet as tolerated. ?? Do not smoke if you are alone. ?? IV site: Slight redness or tenderness is normal, you can use a warm compress if you would like. If tenderness and/or redness increase or if foul drainage occurs, please contact your Doctor. Please call [phone] before 8pm Mon-Fri with problems, questions or concerns. If you call after 8pm or on weekends, call the Hospital at [phone] and ask to speak to the Industrial Order Clerk risk control director and the tier lift truck operator will contact that person for you. When should you call for help? Call [phone] anytime you think you may need emergency care. For example, call if: ?? You passed out (lost consciousness). ?? You pass maroon or bloody stools. ?? You have trouble breathing. Call your doctor now or seek immediate medical care if: ?? You have pain that does not get better after you take pain medicine. ?? You are sick to your stomach or cannot drink fluids. ?? You have new or worse belly pain. ?? You have blood in your stools. ?? You have a fever. ?? You cannot pass stools or gas. Watch closely for changes in your health, and be sure to contact your doctor if you have any problems. Where can you learn more? [facility] View your After Visit Summary and more online at [email or web address] If you would like to provide feedback about your hospital experience, please call the Office of Patient and Family Relations at . If you have received this After Visit Summary in error, please immediately return it in person to the department, or notify the [facility] Privacy Office by calling toll free at between the hours of 8AM and 5PM to arrange for our retrieval of the documents at no cost to you. Content Version: 12.2 ?? [id number] [employer]. Care instructions adapted under license by [facility]. If you have questions about a medical condition or this instruction, always ask your healthcare professional. [employer] disclaims any warranty or liability for your use of this information. documented in this encounter Medications at Time [...] docusate sodium Take 100 mg by mouth 2 0 09/06/2019 (Colace) 100 mg times daily. Capsule polyethylene glycol Take by mouth. 0 0 10/18/2019 3350 (MIRALAX ORAL) documented as of this encounter H&P Notes Emigdio Lanier MD - 08/18/2019 12:48 PM EDT Patient Name: Jahaira Montgomery Patient Age: 59 y.o. Birthdate: 1960 Admit date: 08/18/2019 Attending Physician: Emigdio Lanier MD Gastroenterology & Hepatology Pre-Procedure History and Physical Planned Procedure: Colonoscopy: Indication: follow-up diverticulitis, scope of Lucy pouch and colostomy before surgery for pouchreversal. Patient Active Problem List Diagnosis Code ??? Ostomy nurse consultation Z71.89 ??? Diverticulitis K57.92 Medications: Reviewed in EDH No Known Allergies Social History/Family History: Reviewed in EDH. No changes Exam: Most Recent Vitals: 08/18/19 1231 BP: 144/66 Pulse: 75 Resp: 16 Temp: 37 ??C (98.6 ??F) SpO2: 97% GEN: NAD, AAOX3 HEENT: NC/AT dryMM, anicteric Chest: CTAB Heart: RRR, nl s1, s2 Abdomen: normal bowel sounds, soft, non tender Assessment and Plan: Proceed with Colonoscopy: ASA Grade: ASA 2 - Patient with mild systemic disease with no functional limitations Mallampati: II (soft palate, uvula, fauces visible) Sedation plan: IV Conscious Sedation Risks and benefits of the procedure were discussed with the patient. Risks discussed including bleeding, infection, reaction to anesthesia, perforation or other intraabdominal trauma, pancreatitis (if applicable), missing a cancer (if applicable) and/or other unforseen complication. Informed Consent signed by patient (or representative phlebotomy services). documented in this encounter Plan of Treatment Upcoming Encounters Date Type Specialty Care Team Description 09/30/2021 Office Visit General Surgery Paloma Mota, COUNTERINTELLIGENCE SPECIALIST [facility] GENERAL SURGERY [place], [place] [address] (Wo rk) 09/30/2021 Office Visit Infectious Diseases Werner Harrell MD [facility] INFECTIOUS DISEA [place], [place] [address] (Wo rk) documented as of this encounter Procedures Procedure Name Priority Date/Time Associated Diagnosis Comme nts COLONOSCOPY, 08/18/2019 1:00 perforated DIAGNOSTIC PM EDT diverticulitis Mar 2019 at OSH. Needs colonoscopy through stoma and through anus prior to surgery to reverse colostomy. COLONOSCOPY Routine 08/18/2019 12:33 Results for this PM EDT procedure are i n the results section. documented in this encounter Results COLONOSCOPY (08/18/2019 12:33 PM EDT) [facility] Method Time Signature COLONOSCOPY [facility] Endoscopy Procedure Date: 08/18/2019 12:33 PM ? Patient Name: Jahaira Montgomery ? Date of : 1960 ? Age: 59 ? Order #: [id number] ? Instrument Name: [id number] ? Procedure: ? Colonoscopy Indications: ? Preoperative assessment, Follow-up of ? diverticulitis Patient Profile: ? This is a 59 year old female. Refer ? to note in patient chart for ? documentation of history and ? physical. Last Colonoscopy: n one. The ? patient's first colonoscopy i s today. Providers: ? Emigdio Lanier MD, Chastity Briones ? Ade, GENA, Tena Melendez, Karen Eduardo MD: ?Hanane Martinez Requesting Provider: Miryam Wiley MD Medicines: ? Midazolam 2 mg IV, Fentanyl 200 ? micrograms IV Complications: ? No immediate complications. Procedure: ? Pre-Anesthesia Assessment: ? - Prior to the procedure, a H istory ? and Physical was performed, a nd ? patient medications and aller gies ? were reviewed. The patient's ? tolerance of previous anesthe elke was ? also reviewed. The risks and benefits ? of the procedure and the britany tion ? options and risks were discus sed with ? the patient. All questions we re ? answered, and informed consen t was ? obtained. Prior Anticoagulant s: The ? patient has taken no previous ? anticoagulant or antiplatelet agents. ? ASA Grade Assessment: II - A patient ? with mild systemic disease. A fter ? reviewing the risks and benef its, the ? patient was deemed in satisfa ctory ? condition to undergo the proc edure. ? The procedure, indications, b enefits, ? risks and alternatives were e xplained ? to the patient. Specifically ? discussed were potential ? complications including, but not ? limited to, bleeding, perfora tion, ? infection, missing a cancer, and ? adverse medication reactions. The ? patient was placed in the lef t ? lateral decubitus position, a nd a ? digital rectal exam was perfo rmed. ? The Colonoscope was inserted in the ? descending colostomy and unde r direct ? visualization, advanced to th e cecum, ? identified by appendiceal liza fice and ? ileocecal valve. Careful insp ection ? was made as the colonoscope w as ? withdrawn. The colonoscopy wa s ? performed without difficulty. The ? patient tolerated the procedu re well. ? The quality of the bowel prep aration ? was evaluated using the BBPS ([place] ? Bowel Preparation Scale) with scores ? of: Right Colon = 2 (minor am ount of ? residual staining, small frag ments of ? stool and/or opaque liquid, b ut ? mucosa seen well), Transverse Colon = ? 2 (minor amount of residual s taining, ? small fragments of stool and/ or ? opaque liquid, but mucosa see n well) ? and Left Colon = 2 (minor bushra unt of ? residual staining, small frag ments of ? stool and/or opaque liquid, b ut ? mucosa seen well). The total BBPS ? score equals 6. The quality o f the ? bowel preparation was good. T he ? ileocecal valve and the appen diceal ? orifice were photographed. Sc ope ? withdrawal time was 11 minute s. ? Findings: ? There was evidence of a widely patent end colostomy ? in the descending colon. This was characterized by ? healthy appearing mucosa. ? The colon (entire examined portion) appeared normal ? from descending colostomy to cecum with normal ? appendiceal orifice. There are scattered diverticulum ? in the remaining descending colon. ? Ileocecal valve was visualized but unable to intubate ? due to looping and redundant colon. ? The patient was then placed in the left lateral ? decubitus position and a digital rectal exam ? performed. There was tenderness with exam and ? hemorrhoid noted but otherwise normal. The ? colonoscope was then used to examine the ? rectum/Lucy's pouch. A small amount of mucous was ? noted, remaining colon was otherwise normal with ? blind end at approximately 22 cm. ? Moderate Sedation: ? Moderate (conscious) sedation was administered by the ? endoscopy nurse and supervised by the endoscopist. ? The patient's oxygen saturation, heart rate, blood ? pressure and response to care were monitored. ? I was present during the intraservice time as ? documented by the sedation RN. Impression: ?- Widely patent end colostomy with ? healthy appearing mucosa in t he ? descending colon. ? - Diverticulosis in the desce nding ? colon. ? - The entire examined colon i s ? otherwise normal from end-col ostomy ? to cecum and the remnant Mojica valencia's ? pouch. ? - No specimens collected. Recommendation: ?- Follow-up with Dr. Wiley for ? colostomy reversal. ? Attending Participation: ? I personally performed the entire procedure. ? I was present during the intraservice time as ? documented by the sedation RN. ? Dr. Senthil Lanier Emigdio Lanier MD 08/18/2019 2:07:47 PM Number of Addenda: 0 Note Initiated On: 08/18/2019 12:33 PM Specimen (Source) Anatomical Collection Method Collection Time Re ceived Time Location / / Volume Laterality 08/18/2019 12:33 PM EDT Hanane Martinez MD GENERAL SURGICAL ORDERABLES Performing Organization Address City/State/ZIP Code Phon e Number [place] documented in this encounter Visit Diagnoses Not on filedocumented in this encounter Administered Medications Inactive Administered Medications - up to 3 most recent administrations Medication Order MAR Action Action Date Dose Rate Site fentaNYL 50 mcg/mL multi-dose Given 08/18/2019 1:43 PM EDT 50 mc g injection ONCE PRN, Starting on Kiara 08/17/20 at 1306, Until Kiara 620 at 1646, Intra-Operative (Intra-Procedure), Routine Given 08/18/2019 1:24 PM EDT 50 mcg Given 08/18/2019 1:09 PM EDT 50 mcg lactated ringers infusion New Bag 08/18/2019 12:46 PM EDT 100 mL/hr 100 mL/hr 100 mL/hr, Intravenous, CONTINUOUS, Starting on Kiara 6 at 1245, Until Kiara 620 at 1445, Endoscopy (Day of Procedure) midazolam (PF) (VERSED) multi-dose injec tion Given 08/18/2019 1:09 PM EDT 1 mg ONCE PRN, Starting on Kiara 620 at 1306, Until Kiara 620 at 1646, Intra-Operative (Intra-Procedure), Routine Given 08/18/2019 1:06 PM EDT 1 mg documented in this encounter Active and Recently Administered Medications Times are shown in EDT. Continuous Medication Order 08/16/2019 08/17/2019 08/18/2019 lactated ringers infusion (CANCELED) 1246 (New Bag - Provider: Viviana Andrade RN) 100 mL/hr, at 100 mL/hr, Intravenous, CO NTINUOUS, Starting Kiara 620 at 1245, Until Kiara 620 at 1445, Endo (Day of Procedure) PRN Medication Order 08/16/2019 08/17/2019 08/18/2019 fentaNYL 50 mcg/mL multi-dose injection (CANCELED) 1306 (Given - Provider: Chastity Booker RN)1309 (Given - Provider: Chastity Booker RN)1324 (Given - Provider: Chastity Booker, GENA)1343 (Given - Provider: Chastity Booker, GENA) ONCE PRN, Starting Kiara 620 at 1306, U ntil Kiara 20 at 1646, Intra-Operative (Intra-Procedure), Routine midazolam (PF) (VERSED) multi-dose injection (CANCELED) 1306 (Given - Provider: Chastity Booker RN)1309 (Given - Provider: Chastity Booker RN)1312 (Canceled Entry - Provider: Chastity Booker RN)1326 (Canceled Entry - Provider: Chastity Booker RN) ONCE PRN, Starting Kiara 08/18/19 at 1306, U ntil Kiara 08/18/19 at 1646, Intra-Operative (Intra-Procedure), Routine documented in this encounter Care Teams Make Up Operator Helper Relationship Specialty Start Date End Date Hanane Martinez MD PCP - General Internal Medicine 08/09/19 04/23/21 9 [place] [address] documented as of this encounter
--- OUTSIDE RECORDS SUMMARY | 2021-09-27 14:55 | XMS_ITS | Encounter Summary ---
:1960 Author Organization [facility] [place] [address] Care Team Providers Name Role Phone Unavailable Primary Care Provider Unavailable Encounter Details Date Type Department Care Team Description 08/05/2019 Telephone Gastroenterology at [facility] Viviana Marino [facility] [place] [address] Social History Tobacco Use Types Packs/Day [...] this encounter Miscellaneous Notes Telephone Encounter - Viviana Marino - 08/05/2019 1:02 PM EDT Jahaira Montgomery [id number] Diagnosis/Indication: perforated diverticulitis Mar 2019 at OSH. Needs colonoscopy through stoma andthrough anus prior to surgery to reverse colostomy. Needs PO prep and enemas 1. Have you ever had a/an Colonoscopy before? No If yes, did you have any problems with the procedure? No What type of sedation was used: None 2. Do you take any Blood Thinners? No 3. Do you have a Pacemaker or Defibrillator device? No 4. Are you a diabetic? No 5. Do you have any Allergies to Eggs, Latex or Medications? No 6. Do you take any Oral Iron Supplements (Including multi-vitamins)? No 7. Do you have a history of three or more abdominal surgeries? Yes 8. Have you had a problem with sedation or anesthesia? No 9. Do you have a c-pap machine or oxygen tank? Neither 10. Do you take prescription narcotic pain medications, including suboxone or methodone? No 11. Do you have a preference regarding the gender of your provider? No Preference 12. Is there any other information you would like to give us to aid in scheduling? No 13. Say to patient: You must have a responsible republican who will drive you to your procedure, stay on campus for the entire duration of your procedure, and drive you home from your procedure? Height: 5' Weight: 190 BMI: 37.1 Age:59 y.o. documented in this encounter Plan of Treatment Upcoming Encounters Date Type Specialty Care Team Description 09/30/2021 Office Visit General Surgery Paloma Mota APRN [facility] GENERAL SURGERY [place], [place] [address] (Rekha munoz) 09/30/2021 Office Visit Infectious Diseases Werner Harrell MD [facility] INFECTIOUS DIS[place], [place] [address] (Wo alexander) documented as of this encounter Visit Diagnoses Not on filedocumented in this encounter
--- OUTSIDE RECORDS SUMMARY | 2021-09-27 14:55 | XMS_ITS | Encounter Summary ---
:1960 Author Organization [facility] [place] [address] Care Team Providers Name Role Phone Hanane Martinez MD Primary Care Provider Encounter Details Date Type Department Care Team Description 08/18/2019 Hospital Encounter [place] [facility] [place] Emigdio Lanier [facility] [place] [address] [facility] [phone] DR GASTROENTEROLOGY [place], [place] [address] (Wo rk) Social History Tobacco [...] occurs, please contact your Doctor. Please call [phone] before 8pm Mon-Fri with problems, questions or concerns. If you call after 8pm or on weekends, call the Hospital at [phone] and ask to speak to the Military Cook human relations professor and the non acoustic operator will contact that person for you. When should you call for help? Call [phone] anytime you think you may need emergency [...] any problems. Where can you learn more? [facility] View your After Visit Summary and more online at [email or web address] If you would like to provide [...] cost to you. Content Version: 12.2 ?? [id number] [employer]. Care instructions adapted under license by [facility]. If you have questions about a medical condition or this instruction, always ask your healthcare professional. [employer] disclaims any warranty or liability for your [...] complication. Informed Consent signed by patient (or mechanical service representative). documented in this encounter Plan of Treatment Upcoming Encounters Date Type Specialty Care Team Description 09/30/2021 Office Visit General Surgery Paloma Mota, CHAMBER WALKER [facility] GENERAL SURGERY [place], [place] [address] (Wo rk) 09/30/2021 Office Visit Infectious Diseases Werner Harrell MD [facility] INFECTIOUS [place], [place] [address] (Wo rk) documented as of [...] encounter Results COLONOSCOPY (08/18/2019 12:33 PM EDT) [facility] Method Time Signature COLONOSCOPY [facility] Endoscopy Procedure Date: 08/18/2019 12:33 PM ? Patient Name: Jahaira Montgomery ? Date of : 1960 ? Age: 59 ? Order #: [id number] ? Instrument Name: [id number] ? Procedure: ? Colonoscopy Indications: ? Preoperative assessment, Follow-up of ? diverticulitis Patient Profile: ? This is a 59 year old female. Refer ? to note in patient chart for ? documentation of history and ? physical. Last Colonoscopy: n one. The ? patient's first colonoscopy i s today. Providers: ? Emigdio Lanier MD, Chastity Briones ? Ade, GENA, Tena Melendez, Karen rivas Referring MD: ?Hanane Martinez Requesting Provider: Miryam Wiley [...] aration ? was evaluated using the BBPS ([place] ? Bowel Preparation Scale) with scores ? [...] MAR Action Action Date Dose Rate Site lactated ringers infusion New Bag 08/18/2019 12:46 PM 100 mL/hr 100 mL/hr 100 mL/hr, Intravenous, EDT CONTINUOUS, Starting on Kiara 6/4/20 at 1245, Until Kiara 6//20 at 1445, Endoscopy (Day of Procedure) documented in this encounter Active and Recently Administered Medications Times are shown in EDT. Continuous Medication Order 08/16/2019 08/17/2019 08/18/2019 lactated ringers infusion (CANCELED) 1246 (New Bag - Provider: Viviana Andrade RN) 100 mL/hr, at 100 mL/hr, Intravenous, CO NTINUOUS, Starting Kiara 6/4/20 at 1245, Until Kiara 6//20 at 1445, Endo (Day of Procedure) PRN Medication Order 08/16/2019 08/17/2019 08/18/2019 fentaNYL 50 mcg/mL multi-dose injection (CANCELED) 1306 (Given - Provider: Chastity Booker RN)1309 (Given - Provider: Chastity Booker, GENA)1324 (Given - Provider: Chastity Booker RN)1343 (Given - Provider: Chastity Booker, GENA) ONCE PRN, Starting Kiara 6/4/20 at 1306, U ntil Kiara 6/4/20 at 1646, Intra-Operative (Intra-Procedure), Routine midazolam (PF) (VERSED) multi-dose injection (CANCELED) 1306 (Given - Provider: Chastity Booker RN)1309 (Given - Provider: Chastity Booker, GENA)1312 (Canceled Entry - Provider: Chastity Booker RN)1326 (Canceled Entry - Provider: Chastity Booker RN) ONCE PRN, Starting Kiara 6/4/20 at 1306, U ntil Kiara 6/4/20 at 1646, Intra-Operative (Intra-Procedure), Routine documented in this encounter Care Teams Nut Grinder Relationship Specialty Start Date End Date Hanane Martinez MD PCP - General Internal Medicine 08/09/19 04/23/21 [address] [place] [address] documented as of this encounter
--- NOTE | 2021-09-27 15:00 | DI.CT_ITS ---
Exam(s) CT ABDOMEN PELVIS W EXAM: CT ABDOMEN PELVIS W CLINICAL HISTORY: recent hernia operation, ?abscess. TECHNIQUE: Imaging Protocol: Axial computed tomography images with coronal and sagittal reformatted images were created and reviewed CONTRAST MATERIAL: Intravenous: Omnipaque 100cc Oral: Yes COMPARISON: CT CT ABDOMEN PELVIS WO from 07/18/2021 FINDINGS: VISUALIZED LUNG BASES: Mild increased markings in the lung bases. No confluent infiltrates and no pl eural effusions. ABDOMEN: There is no ascites. LIVER: There are no focal hepatic lesions evident . GALLBLADDER/BILIARY: The gallbladder surgically absent. CBD is not dilated. PANCREAS: No evidence of pancreatic mass nor dilatation of the pancreatic duct. SPLEEN: Spleen is not enlarged. No obvious intrasplenic lesions. Splenic and portal veins are paten t. ADRENALS: Tiny nodule measuring 8 x 9 millimeters at the genu of the left adrenal gland noted. Uncha nged from previous. Right adrenal gland unremarkable. KIDNEYS:Small cortical cysts in the posterior left kidney measuring 7 millimeters. No solid renal ma sses. No calculi. No hydronephrosis.. ABDOMINAL AORTA: Fusiform infrarenal abdominal aortic aneurysm which exhibits maximum diameter 2.7 cm . Arterial megaly does not continue into the iliac arteries. LYMPH NODES:There is no retroperitoneal nor paraaortic adenopathy. ABDOMINAL WALL: Anterior abdominal wall open skin wound which is probably healing by 2nd intention. There are few associated tiny foci of air but no drainable fluid collection. GI: No evidence of bowel obstruction. PELVIS: GI: No evidence of appendicitis.Sigmoid diverticulosis. Partial sigmoid resection. No acute diverti culitis. No no free fluid. LYMPH NODES: There is no intrapelvic nor inguinal adenopathy. REPRODUCTIVE: Uterus is surgically absent. No abnormal adnexal masses. No free fluid. URINARY BLADDER: No calculi nor obvious masses evident OSSEOUS: No significant osseous lesions. Degenerative anterolisthesis L5 upon S1. No fractures. IMPRESSION: 1. There is evidence of previous cholecystectomy, hysterectomy, and anterior abdominal wall surgery. There is also been partial sigmoid resection. 2. No anterior abdominal hernia at this time but there is an open midline abdominal wound with a few punctate foci of soft tissue air around the surgical wound. Could represent sinus tracts. Correlati on with clinical and drainage findings recommended. There is no abscess or fluid within the abdomina l cavity. 3. There diverticuli in the sigmoid but no evidence of acute diverticulitis. No appendicitis. 4. Small 7 millimeter left adrenal nodule which is probably an incidental adenoma. Other findings as above. RADIATION DOSE DELIVERED: 2,275.02mGy.cm Total DLP DATA REPOSITORY: All CT scans at this facility are submitted to the National Radiology Data Registry (NRDR) Dose Index Registry (DIR) with the [employer] (A[employer]). RADIATION OPTIMIZATION: All CT scans at this facility use at least one of these dose optimization te chniques: automated exposure control; mA and/or kV adjustment per patient size (includes targeted exa ms where dose is matched to clinical indication); or iterative reconstruction.
--- NOTE | 2021-09-27 15:04 | ED.GENADUL_ITS ---
Discharge Plan Disposition Patient Disposition: HOME Condition: Stable Discharge Details Clinical Impression: Abdominal pain Primary Care Provider: Ally Ortiz ED Provider: Jas Workman Home Meds and New Rx's Prescriptions: Continued hydrochlorothiazide 25 mg tablet 25 mg PO DAILY Qty: 90 1RF atorvastatin 20 mg tablet 20 mg PO QPM Qty: 90 3RF clopidogrel [Plavix] 75 mg tablet 75 mg PO DAILY Qty: 90 3RF alprazolam 0.5 mg tablet 0.5 mg PO ONCE PRN (Reason: claustrophobia) Qty: 2 0RF Rx Instructions: Take within 3o minutes of MRI. Repeat x 1 if necessary. doxycycline hyclate 100 mg capsule 100 mg PO BID Label Comments: 08/22/21 d/c from Rx Instructions: x 6weeks gabapentin 300 mg capsule 600 mg PO TID hydromorphone 2 mg tablet 2 mg PO Q4H Rx Instructions: For wound dressing changes only Discharge Instructions Instructions: Abdominal Pain (ED) Additional Instructions: your cat scan did not show any hernia or abscess follow up as scheduled with your surgeon Thursday If you feel more ill, have severe worsening pain or fevers return to the emergency department Medical Decision Making 61 yo female with multiple medical problems and multiple abdominal ventral hernia repairs and revisions who had another one done on 09/19 at [facility] per patient comes in with concerns for infection. She states home health felt what they believe could be an abscess so they sent her here. She denies fevers, chills, n/v, and her pain is at the surgical site. Her surgical site is in the left anterior abdomen just below the umbilicus and is open, with serous drainage no purulent drainage. There is no significant erythema on exam, just superior to the open wound is a soft mass that is not warm to touch. Concern for possible recurrent hernia vs abscess, will obtain labs and ct to further evaluate. labs show very mild low k and low mag and mild leukocytosis to 15 but seems to chronically have mild leukocytosis. CT shows no abscess, has a bulging of the atnerior midline abdominal wall without hernia which is likely the area that the home health provider was concerned about. She feels much better and has no tenderness now, no tracking lesions in her wound. She is stable for d/c, will continue doxy and has f/u Thursday with her general surgeron, return precautions given Differential Diagnosis Differential Diagnosis: abscess, surgical site infection Medical Records Medical records reviewed: Yes I reviewed the patient's medical records. Imaging Data Radiologic Study: Attestation: I personally reviewed and interpreted this imaging study as follows: Imaging: CT Scan Radiologist's impression: IMPRESSION: 1. New postoperative changes of anterior midline abdominal wall hernia repair. No recurrent hernia is identified. 2. No abscess in the region of the open anterior midline abdominal wall wound is identified. There are a few punctate foci of soft tissue air around the surgical wound, which could represent small superficial sinus tracts. Recommend clinical correlation. 3. Sigmoid diverticulosis without evidence for acute diverticulitis. 4. No evidence for bowel obstruction or inflammation. 5. Status post cholecystectomy and hysterectomy. Lab Data Lab results reviewed: Yes I reviewed the patient's lab results. HPI General Mode of arrival: ambulatory . Date/Time Provider Initiated Documentation: 09/27/21 14:55 . Limitations to Documentation: no limitations . Information obtained by: patient . History of Present Illness 61 year old F presents to the emergency department with the chief complaint of abdominal pain, described as moderate, Quality is described as sharp, and is localized to the abdomen. Patient reports no radiation. Patient started experiencing this day(s) (3) and it has been constant. No relieving factors improve symptom(s), No exacerbating factors reported . Patient notes no other symptoms.. Patient did receive the following treatments prior to arrival, none Related Data Home Medications Medication Instructions Recorded Confirmed hydrochlorothiazide 25 mg tablet 25 mg PO DAILY #90 tabs 04/22/21 09/27/21 atorvastatin 20 mg tablet 20 mg PO QPM #90 tabs 06/10/21 09/27/21 alprazolam 0.5 mg tablet 0.5 mg PO ONCE PRN claustrophobia 07/22/21 07/31/21 #2 tabs clopidogrel 75 mg tablet (Plavix) 75 mg PO DAILY #90 tabs 07/31/21 09/27/21 doxycycline hyclate 100 mg capsule 100 mg PO BID 08/26/21 09/27/21 gabapentin 300 mg capsule 600 mg PO TID 09/23/21 09/27/21 hydromorphone 2 mg tablet 2 mg PO Q4H 09/23/21 09/27/21 Previous Rx's Medication Instructions Recorded hydrochlorothiazide 25 mg tablet 25 mg PO DAILY #90 tabs 04/22/21 atorvastatin 20 mg tablet 20 mg PO QPM #90 tabs 06/10/21 alprazolam 0.5 mg tablet 0.5 mg PO ONCE PRN claustrophobia 07/22/21 #2 tabs clopidogrel 75 mg tablet (Plavix) 75 mg PO DAILY #90 tabs 07/31/21 Allergies Allergy/AdvReac Type Severity Reaction Status Date / Time No Known Allergies Allergy Verified 09/27/21 14:58 General Stated Complaint: GenMedical TAE: 2 Review of Systems All systems reviewed & are unremarkable except as noted in HPI and below Constitutional Constitutional: Denies chills, Denies fever(s) and Denies weakness Cardiovascular Cardiovascular: Denies chest pain and Denies dyspnea Respiratory Respiratory: Denies cough and Denies dyspnea Gastrointestinal Gastrointestinal: Denies nausea and Denies vomiting Genitourinary Genitourinary: Denies dysuria Musculoskeletal Musculoskeletal: Denies joint swelling Neurologic Neurologic: Denies weakness PFSH All Active Problems (Updated 09/27/21 @ 18:17 by Jas Workman MD) Abdominal pain (Acute) Stroke (Chronic) Mild cognitive impairment (Acute) De Quervain's tenosynovitis, left (Acute) Delayed wound healing (Acute) Two area of scabbing with Hx exudate and delayed healing 08/12/21 admitted ABD Wall Absess - debrided and Vac placed Hyperlipidemia (Acute) Asthma (Chronic) Hypertension (Chronic) Chronic apical abscess (Acute) Diabetes mellitus type 2, controlled (Acute ~04/2021) Tobacco abuse (Acute) SBO (small bowel obstruction) (Acute) BMI 45.0-49.9, adult (Acute) Dehydration (Acute) Recurrent ventral hernia (Acute) Repair at [facility] [place] , incarcerated 04/25/21 Ventral hernia with bowel obstruction (Acute) Internal derangement of right knee (Acute) Depo-medrol injection: 01/21/2021 Internal derangement of left knee (Acute) DEPO MEDROL INJECTION 04/17/21 Medical History (Updated 09/27/21 @ 18:17 by Jas Workman MD) Abscess of abdominal wall [facility] [place] 09/19/21 note Anal fissure Diverticulitis History of anal fissures Surgical History (Updated 09/23/21 @ 12:55 by Nya Floyd RN) 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 H/O hernia repair (04/25/21) Repair incarcerated ventral hernia-[place] H/O hernia repair (~07/23/21) Repair incisional/ventral hernia with mesh-[place] History of x2 History of cholecystectomy History of colostomy History of hernia repair umbilical x3 History of partial colectomy Hx of colonoscopy S/P debridement (~09/13/21) Abscess of ABD wall, [facility] [place] Status post arthroscopy of right knee (12/04/20) With partial medial meniscectomy Status post hysterectomy Family History Father Alcohol use disorder Cancer pancreatic Diabetes Hypertension Brother Alcohol use disorder Depression Hypertension Sister Alcohol use disorder Asthma Depression Mother Anxiety Heart disease Hypertension Son Asthma Social History Smoking/Tobacco Use Status: Current every day Tobacco Type: cigarettes Smoking packs per day: 1 Smoking cigarettes per day: 20.0 Years smoked: 43 Smoking pack- years: 43.00 Quit status: considering quitting Second Hand Exposure: No Smoking risk assessment performed?: Yes Alcohol Intake: never Drug use: Never Substance use type: does not use Adopted: No Caregiver/Support person: No Foster care: No Household members: family Housing: house Number of Children: 2 number of grandchildren: 1 Communication Needs: None Education Level: college Details: Associate's Degree Do you need help understanding health information?: Rarely Pets and animals: Yes (2) Pets and animals: cat(s) Sexually active: No Current gender identity: female What is your relationship status?: never How often do you talk on the phone with friends or family?: twice per week Do you belong to any clubs or organized social groups?: no Panel score (0-1 are the most socially isolated patients): 0 What type of physical activity do you participate in: none Nubia/Pentecostalism: None Special nubia needs: No Seatbelt use: always Helmet use: No 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 Do you feel safe at home: Yes Do you feel safe in your relationship?: Yes Exam Const General: no acute distress Orientation: alert HENMT Head: normal to inspection Ears: external ears normal General nose exam: external nose normal Mouth: moist mucous membranes Eyes General: appearance normal, both eyes and all related structures Neck Neck: normal visual inspection Resp Effort & Inspection: normal respiratory effort and able to speak in complete sentences Cardio Rate: regular rate GI Palpation: soft and tender Skin General skin exam: elasticity normal Neuro General: patient alert and patient oriented x3 Extrem General: normal to inspection Psych Mental Status: mental status grossly normal Course Vital Signs Vital signs: Vital Signs Temperature 36.8 C 09/27/21 14:48 Pulse 99 H 09/27/21 14:48 Respiratory Rate 16 09/27/21 14:48 Blood Pressure 127/75 09/27/21 14:48 Pulse Oximetry 92 09/27/21 14:48 Temperature 36.8 C 09/27/21 14:48 Temperature Source Temporal Artery Scan 09/27/21 14:48 Pulse 99 H 09/27/21 14:48 Respiratory Rate 16 09/27/21 14:48 Blood Pressure 127/75 09/27/21 14:48 Pulse Oximetry 92 09/27/21 14:48 Oxygen Delivery Method Room Air 09/27/21 14:48 Oxygen Flow Rate 0 09/27/21 14:48 Pain Level 10 09/27/21 14:48 Lab/Test Results Lab/Test Results: 09/27/21 15:01 Blood Blood Culture - Pending 09/27/21 15:01 Blood Blood Culture - Pending
[2021-09-27 15:48] LABS: Abs Immature Grans 0.04 10^3/uL (0.0-0.06); Absolute Basophil Count 0.12 10^3/uL (0.0-0.2); Absolute Monocyte Count 1.08 10^3/uL (0.1-0.8); Basophils % 0.8; Eosinophils % 3.3; HCT 39.7 % (36.0-46.0); HGB 13.3 g/dL (11.2-15.7); Immature Grans % 0.3; Lymphocytes % 24.2; MCH 30.2 pg (27.0-33.0); MCHC 33.5 % (32.0-36.0); MCV 90 fL (80-95); MPV 9.2 fL (8.0-11.0); Monocytes % 7.1; Neutrophils % 64.3; Platelet Count 408 10^3/uL (130-400); RDW 14.6 % (11.7-14.6); RDW-SD 48.3 fL; WBC 15.19 10^3/uL (4.4-10.8)
[2021-09-27 15:49] LABS: Absolute Lymphocyte Count 3.68 10^3/uL (1.2-3.4); Absolute Neutrophil Count 9.77 10^3/uL (1.2-6.7)
[2021-09-27] MEDS: Normal Saline Flush 10 ML SYR IVP (15:49)
[2021-09-27] MEDS: HYDROmorphone 2 MG/ML VIAL 1 MG IVP (15:49)
[2021-09-27 16:05] LABS: ALT 25 U/L (14-59); AST 21 U/L (15-37); Albumin 2.9 g/dL (3.4-5.0); Alkaline Phosphatase 99 U/L (46-116); Anion Gap 6.7 mmol/L (3-11); BUN 20 mg/dL (7-18); Bilirubin, Total 0.3 mg/dL (0.2-1.0); CO2 33.3 mmol/L (21.0-32.0); CREATININE 0.7 mg/dL (0.55-1.02); Calcium 9.5 mg/dL (8.5-10.1); Chloride 100 mmol/L (98-107); Glucose 176 mg/dL (74-106); Lipase 83 U/L (73-393); Magnesium 1.6 mg/dL (1.8-2.4); Potassium 3.1 mmol/L (3.5-5.1); Sodium 140 mmol/L (136-145); Total Protein 7.5 g/dL (6.4-8.2)
[2021-09-27 16:45] VITALS: BP 119/64; PULSE 79; TEMP 36.6; O2SAT 96
[2021-09-27] MEDS: Breeza Beverage 473 ML BTL PO ×2 (17:15→17:25)
[2021-09-27] MEDS: Omnipaque 350 MG/ML 100 ML BTL IJ (17:17)
--- NOTE | 2021-09-27 17:54 | DI.VRAD_ITS ---
PROCEDURE INFORMATION: Exam: CT Abdomen And Pelvis With Contrast Exam date and time: 09/27/2021 5:01 PM Age: 61 years old Clinical indication: Other: Infection; Prior surgery; Surgery date: <1 month; Surgery type: Hernial TECHNIQUE: Imaging protocol: Computed tomography of the abdomen and pelvis with contrast. Contrast material: OMNIPAQUE 350; Contrast volume: 100 ml; Contrast route: INTRAVENOUS (IV); Other contrast: Oral, Gastroview , 25 mL; COMPARISON: CT ABDOMEN PELVIS WO 07/18/2021 11:48 AM FINDINGS: Lungs: There is mild subsegmental atelectasis within both lung bases. Liver: Normal. No mass. Gallbladder and bile ducts: There has been a cholecystectomy. Pancreas: The pancreas is moderately atrophic but appears otherwise unremarkable without focal lesion or evidence of acute inflammation. Spleen: Normal. No splenomegaly. Adrenal glands: Normal. No mass. Kidneys and ureters: There is a tiny subcentimeter left renal lesion which is too small to characterize but likely represents a benign cyst. No renal or ureteral stones are identified. There is no hydronephrosis or hydroureter. Stomach and bowel: There is an anastomotic staple line involving rectum near the junction with the sigmoid colon, without evidence for focal mass lesion. There is sigmoid diverticulosis without evidence for acute diverticulitis. There is no evidence for bowel obstruction or inflammation. Appendix: No evidence of appendicitis. Intraperitoneal space: There is no free intraperitoneal air. Vasculature: The aorta and iliac arteries demonstrate moderate atherosclerotic calcification without aneurysm formation. Lymph nodes: Unremarkable. No enlarged lymph nodes. Urinary bladder: Unremarkable as visualized. Reproductive: There has been a hysterectomy. Bones/joints: There is moderate facet arthrosis of the lower lumbar spine. There is mild grade 1 anterolisthesis of L5 on S1 without spondylolysis. There is multilevel [id number] spondylosis of the lower thoracic and lumbar spine. No acute fractures are identified. Soft tissues: There has been interval repair of the multiple small anterior midline abdominal wall hernias on prior study. There is mild broad-based bulging of the anterior midline abdominal wall on today's study, without evidence for recurrent hernia. There is an open abdominal wound at the anterior midline lower abdominal wall, with a few associated tiny foci of air soft tissue air inferiorly within the region of the scar, as seen on images 66, 68 and 72, series 5. No defined fluid collection to suggest abscess is present, but small superficial sinus tracts in the region of the open wound cannot be excluded. IMPRESSION: 1. New postoperative changes of anterior midline abdominal wall hernia repair. No recurrent hernia is identified. 2. No abscess in the region of the open anterior midline abdominal wall wound is identified. There are a few punctate foci of soft tissue air around the surgical wound, which could represent small superficial sinus tracts. Recommend clinical correlation. 3. Sigmoid diverticulosis without evidence for acute diverticulitis. 4. No evidence for bowel obstruction or inflammation. 5. Status post cholecystectomy and hysterectomy. Dictated and Authenticated by: Werner Lang MD. Ordering:PREET Mark MD
[2021-09-27 18:21] VITALS: BP 106/62; PULSE 78; TEMP 36.7; O2SAT 96
== END 2021-09-27 18:36 | disposition home or self-care (01) ==
PROVIDERS: Emergency Provider Emergency Medicine; PCP Nurse Practitioner
DX: F17.210 Nicotine dependence, cigarettes, uncomplicated; G89.18 Other acute postprocedural pain; R10.9 Unspecified abdominal pain; D72.829 Elevated white blood cell count, unspecified; E87.6 Hypokalemia; E83.42 Hypomagnesemia
CPT/HCPCS: 36415; 80053; 83690; 87040; 96374; 99285; 74177; 83735; 85025; 99284; J3490

== ENCOUNTER 2021-11-27 12:06 | Outpatient (CLI) | payer MEDICAID, SELFPAY | END 2021-11-27 12:07 | disposition home or self-care (01) | LOC: RT 12:06 | PROVIDERS: PCP Nurse Practitioner; Visit Provider Nurse Practitioner Adult Health | DX: I63.9 Cerebral infarction, unspecified (principal) | CPT/HCPCS: 93270 ==

== ENCOUNTER 2021-12-11 09:46 | Emergency (ER) | payer MEDICAID, SELFPAY ==
[2021-12-11 09:54] VITALS: BP 145/85; PULSE 90; RESP 24; TEMP 36.6; O2SAT 98
--- NOTE | 2021-12-11 10:21 | ED.GENADUL_ITS ---
Discharge Plan Disposition Patient Disposition: HOME Condition: Improving Discharge Details Clinical Impression: Open abdominal wall wound Primary Care Provider: Ally Ortiz ED Provider: Konstantin Miller Home Meds and New Rx's Prescriptions: Continued hydrochlorothiazide 25 mg tablet 25 mg PO DAILY Qty: 90 3RF metformin 500 mg tablet 500 mg PO DAILY Qty: 90 3RF bupropion HCl [Wellbutrin XL] 150 mg tablet extended release 24 hr 150 mg PO QAM Qty: 90 3RF atorvastatin 20 mg tablet 20 mg PO QPM Qty: 90 3RF sennosides 8.6 mg tablet 17.2 mg PO DAILY clopidogrel [Plavix] 75 mg tablet 75 mg PO DAILY Qty: 90 3RF ciprofloxacin HCl [Cipro] 500 mg tablet 500 mg PO BID Qty: 14 0RF metronidazole 500 mg tablet 500 mg PO TID Qty: 21 0RF gabapentin 300 mg capsule See Rx Instructions PO TID Qty: 240 3RF Rx Instructions: 2 caps every morning, 3 caps at dinner time and 3 caps at HS eszopiclone [Lunesta] 2 mg tablet 2 mg PO QHS Label Comments: 10/17/21 note (DME) Blood Glucose Test Strip See Rx Instructions .ROUTE .MEDSUPPLY Qty: 100 3RF Rx Instructions: As directed to check blood glucose daily. No insulin. ONE TOUCH VERIO hydromorphone 2 mg tablet 1 tab PO Q6H Discharge Instructions Instructions: Acute Wound Care (ED) Additional Instructions: At this time your CT imaging does not reveal any obvious emergent process. I discussed the case with your surgical team at [facility], Dr. Cabrera. He was able to personally review your CT imaging. He did not believe that any surgical intervention was required now and did not recommend starting antibiotics. He will have you evaluated in the surgical office tomorrow. Please contact the clinic later today or first thing tomorrow to set this up. Please watch for new or worsening symptoms and return to the ER for any concerns Discharge Data Discharge Date/Time-TO BE ENTERED AT DEPARTURE: 12/11/21 14:35 Medical Decision Making 61-year-old female with a complicated surgical history regarding her abdomen presents for acute on chronic lower abdominal pain. Denies recent illness or trauma. Given her complicated history will obtain IV access, and screening laboratory values including a lactate and obtain CT imaging of her abdomen pelvis with IV contrast. Patient given 1 mg IV Dilaudid for discomfort. White blood cell minimally elevated 11.10. Lactate 2.3. Your potassium 3.0. Will replenish potassium with both oral and IV potassium and obtain EKG. CT imaging is unremarkable. Images were pushed to [facility] and I was able to discuss the case with the surgical team there, Dr. Cabrera. He reports that he knows the patient well, does not believe that this is a surgical process at this time, she has been dealing with chronic pain ever since the surgery, and does not believe that she requires transfer or additional intervention now. He plans to review the CT and call me back. Patient already on Cipro and Flagyl from her PCP, no reason to initiate additional antibiotics. Patient reports pain returning, given 2 mg IV Dilaudid I did discuss the case with our surgical team, Dr. Wayne, who personally came to the ER to evaluate the patient. Please see her note. She 2 does not believe that any surgical intervention is required emergently. She recommends cleaning the wound with wound cleanser and repacking of the wound and then applying Aquacel dressing. Patient has now received [address] Wayne recommends repeating a lactate and adding on a procalcitonin. Repeat lactate is now normal at 1.2 and the procalcitonin is less than 0.1. I received a call at [address] Cabrera, surgery at [facility]. He was able to personally review the CT imaging and has no additional recommendations. Does not believe that this is a surgical process, does not require emergent debridement. No obvious fluid collection to require additional antibiotics. He believes the patient to be safely discharged and he will have the patient followed in the surgical clinic tomorrow at [facility] My conversations with Dr. Cabrera were relayed to the patient. She has no additional questions or concerns and is comfortable with this plan. She will follow-up with the surgical clinic tomorrow at [facility]. Standard discharge and return precautions were provided. Patient understands, is agreeable to this plan, and has no additional questions or concerns upon discharge. This documentation was generated using [employer] system, please disregard any oddities of phrase or misspellings. Medical Records Medical records reviewed: Yes I reviewed the patient's medical records. Imaging Data Radiologic Study: Attestation: I personally reviewed and interpreted this imaging study as follows: Imaging: CT Scan Radiologist's impression: Exam(s) CT ABDOMEN PELVIS W EXAM: CT ABDOMEN PELVIS W INDICATION: Multiple abdominal surgeries, increased pain. COMPARISON: CT CT ABDOMEN PELVIS W from 09/27/2021 TECHNIQUE: FINDINGS: CT examination of the abdomen and pelvis was performed with intravenous infusion of 100 cc of Omnipaque 350. The examination is compared with prior examination of September 27, there has been apparent increased healing of an anterior abdominal wound. Anterior abdominal wall is patulous with no true hernia seen. Images obtained through the lung bases are unremarkable. The liver shows decreased attenuation in a somewhat geographic pattern consistent with hepatic steatosis. Gallbladder and bile ducts are CT normal. Pancreas appears normal. Spleen is unremarkable in appearance. Adrenals appear normal. The kidneys are unremarkable with no evidence of hydronephrosis, nephrolithiasis, or renal mass.. Urinary bladder unremarkable. Abdominal aorta is of normal diameter and no major vascular abnormality is seen. No abdominal wall hernia. No abdominal or pelvic adenopathy. Uterus is atrophic or absent.. Appendix is normal. No evidence of diverticulitis or bowel obstruction. IMPRESSION: No evidence of acute process. Lab Data Lab results reviewed: Yes I reviewed the patient's lab results. Labs: Laboratory Tests Range/Units 12/11/21 12/11/21 12/11/21 10:08 10:08 10:08 WBC (4.4-10.8) 10^3/uL 11.10 H RBC (3.93-5.22) 10^6/uL 4.53 Hgb (11.2-15.7) g/dL 13.8 Hct (36.0-46.0) % 42.3 MCV (80-95) fL 93 MCH (27.0-33.0) pg 30.5 MCHC (32.0-36.0) % 32.6 RDW (11.7-14.6) % 12.7 Plt Count (130-400) 10^3/uL 325 MPV (8.0-11.0) fL 9.2 Immature Gran % 0.5 Neutrophils % 61.3 Lymphocytes % 27.2 Monocytes % 7.4 Eosinophils % 2.8 Basophils % 0.8 Nucleated RBC % (0.0-0.3) % 0.0 Absolute Neutrophils (1.2-6.7) 10^3/uL 6.80 H Absolute Lymphocytes (1.2-3.4) 10^3/uL 3.02 Absolute Monocytes (0.1-0.8) 10^3/uL 0.82 H Absolute Eosinophils (0.0-0.7) 10^3/uL 0.31 Absolute Basophils (0.0-0.2) 10^3/uL 0.09 PT (9.3-11.0) sec INR (0.9-1.1) APTT (21.0-27.5) sec VBG Lactate (0.6-1.4) mmol/L 2.3 H* Sodium (136-145) mmol/L 137 Potassium (3.5-5.1) mmol/L 3.0 L Chloride (98-107) mmol/L 98 Carbon Dioxide (21.0-32.0) mmol/L 32.1 H Anion Gap (3-11) mmol/L 6.9 BUN (7-18) mg/dL 17 Creatinine (0.55-1.02) mg/dL 0.8 Est GFR (CKD-EPI 2020) (mL/min/1.73m2) 84.82 Glucose (74-106) mg/dL 131 H Calcium (8.5-10.1) mg/dL 9.6 Magnesium (1.8-2.4) mg/dL Total Bilirubin (0.2-1.0) mg/dL 0.3 AST (15-37) U/L 16 ALT (14-59) U/L 23 Alkaline Phosphatase (46-116) U/L 127 H Total Protein (6.4-8.2) g/dL 7.6 Albumin (3.4-5.0) g/dL 3.2 L Lipase (73-393) U/L 82 Procalcitonin ng/mL COVID-19 Source SARS-CoV-2 (PCR) (Negative) Range/Units 12/11/21 12/11/21 12/11/21 10:08 10:08 10:50 WBC (4.4-10.8) 10^3/uL RBC (3.93-5.22) 10^6/uL Hgb (11.2-15.7) g/dL Hct (36.0-46.0) % MCV (80-95) fL MCH (27.0-33.0) pg MCHC (32.0-36.0) % RDW (11.7-14.6) % Plt Count (130-400) 10^3/uL MPV (8.0-11.0) fL Immature Gran % Neutrophils % Lymphocytes % Monocytes % Eosinophils % Basophils % Nucleated RBC % (0.0-0.3) % Absolute Neutrophils (1.2-6.7) 10^3/uL Absolute Lymphocytes (1.2-3.4) 10^3/uL Absolute Monocytes (0.1-0.8) 10^3/uL Absolute Eosinophils (0.0-0.7) 10^3/uL Absolute Basophils (0.0-0.2) 10^3/uL PT (9.3-11.0) sec 10.1 INR (0.9-1.1) 1.0 APTT (21.0-27.5) sec 29.6 H VBG Lactate (0.6-1.4) mmol/L Sodium (136-145) mmol/L Potassium (3.5-5.1) mmol/L Chloride (98-107) mmol/L Carbon Dioxide (21.0-32.0) mmol/L Anion Gap (3-11) mmol/L BUN (7-18) mg/dL Creatinine (0.55-1.02) mg/dL Est GFR (CKD-EPI 2020) (mL/min/1.73m2) Glucose (74-106) mg/dL Calcium (8.5-10.1) mg/dL Magnesium (1.8-2.4) mg/dL 1.5 L Total Bilirubin (0.2-1.0) mg/dL AST (15-37) U/L ALT (14-59) U/L Alkaline Phosphatase (46-116) U/L Total Protein (6.4-8.2) g/dL Albumin (3.4-5.0) g/dL Lipase (73-393) U/L Procalcitonin ng/mL < 0.1 COVID-19 Source SARS-CoV-2 (PCR) (Negative) Range/Units 12/11/21 12/11/21 11:15 13:12 WBC (4.4-10.8) 10^3/uL RBC (3.93-5.22) 10^6/uL Hgb (11.2-15.7) g/dL Hct (36.0-46.0) % MCV (80-95) fL MCH (27.0-33.0) pg MCHC (32.0-36.0) % RDW (11.7-14.6) % Plt Count (130-400) 10^3/uL MPV (8.0-11.0) fL Immature Gran % Neutrophils % Lymphocytes % Monocytes % Eosinophils % Basophils % Nucleated RBC % (0.0-0.3) % Absolute Neutrophils (1.2-6.7) 10^3/uL Absolute Lymphocytes (1.2-3.4) 10^3/uL Absolute Monocytes (0.1-0.8) 10^3/uL Absolute Eosinophils (0.0-0.7) 10^3/uL Absolute Basophils (0.0-0.2) 10^3/uL PT (9.3-11.0) sec INR (0.9-1.1) APTT (21.0-27.5) sec VBG Lactate (0.6-1.4) mmol/L 1.2 Sodium (136-145) mmol/L Potassium (3.5-5.1) mmol/L Chloride (98-107) mmol/L Carbon Dioxide (21.0-32.0) mmol/L Anion Gap (3-11) mmol/L BUN (7-18) mg/dL Creatinine (0.55-1.02) mg/dL Est GFR (CKD-EPI 2020) (mL/min/1.73m2) Glucose (74-106) mg/dL Calcium (8.5-10.1) mg/dL Magnesium (1.8-2.4) mg/dL Total Bilirubin (0.2-1.0) mg/dL AST (15-37) U/L ALT (14-59) U/L Alkaline Phosphatase (46-116) U/L Total Protein (6.4-8.2) g/dL Albumin (3.4-5.0) g/dL Lipase (73-393) U/L Procalcitonin ng/mL COVID-19 Source Nasal/Nares SARS-CoV-2 (PCR) (Negative) Negative ECG Data Attestation: I personally reviewed and interpreted this ECG (s) as follows: Interpretation: Sinus rhythm, ventricular of 68, no STEMI HPI General Mode of arrival: ambulatory . Date/Time Provider Initiated Documentation: 12/11/21 10:03 . Limitations to Documentation: no limitations . Information obtained by: patient and family . HPI Narrative: This is a 61-year-old female, past medical history of diabetes, depression, morbid obesity, CVA, on Plavix, hypertension, extensive abdominal surgical history presenting to the ER reporting increased pain and bleeding from her abdominal surgical site over the past 3 days. She denies recent illness or trauma. She denies fever, chest pain, diarrhea, constipation or black tarry stools or bright red blood in her stools. Patient states that she took a single Dilaudid prior to arrival for the severe pain, has not taken this in about 2 months. She states that she was originally followed extensively at [facility] and subsequently with multiple admissions but is now trying to follow-up with her PCP as travel is quite a hardship. She denies recent fall, lifting mechanism, etc. that caused any of the symptoms. I was able to review a record from [facility] and it would appear as though she had her original surgery in July, primary fascial closure after ventral hernia repair with overtax overlay, she subsequently developed a wound infection which required debridement of much of the mesh, subsequent admission to [facility], brought back to the OR on 10-08-2021 for exploration and debridement. Patient was seen by her PCP yesterday and placed on Cipro and Flagyl. Related Data Home Medications Medication Instructions Recorded Confirmed atorvastatin 20 mg tablet 20 mg PO QPM #90 tabs 06/10/21 12/11/21 eszopiclone 2 mg tablet (Lunesta) 2 mg PO QHS 10/23/21 12/11/21 bupropion HCl 150 mg 24 hr tablet, 150 mg PO QAM #90 tabs 11/12/21 12/11/21 extended release (Wellbutrin XL) hydrochlorothiazide 25 mg tablet 25 mg PO DAILY #90 tabs 11/12/21 12/11/21 metformin 500 mg tablet 500 mg PO DAILY #90 tabs 11/12/21 12/11/21 clopidogrel 75 mg tablet (Plavix) 75 mg PO DAILY #90 tabs 11/27/21 12/11/21 sennosides 8.6 mg tablet 17.2 mg PO DAILY 11/27/21 12/11/21 blood sugar diagnostic (Blood #100 ea 12/10/21 12/11/21 Glucose Test strips) ciprofloxacin HCl 500 mg tablet 500 mg PO BID #14 tabs 12/10/21 12/11/21 (Cipro) gabapentin 300 mg capsule See Rx Instructions PO TID #240 12/10/21 12/11/21 caps metronidazole 500 mg tablet 500 mg PO TID #21 tabs 12/10/21 12/11/21 hydromorphone 2 mg tablet 1 tab PO Q6H 12/11/21 12/11/21 Previous Rx's Medication Instructions Recorded atorvastatin 20 mg tablet 20 mg PO QPM #90 tabs 06/10/21 bupropion HCl 150 mg 24 hr tablet, 150 mg PO QAM #90 tabs 11/12/21 extended release (Wellbutrin XL) hydrochlorothiazide 25 mg tablet 25 mg PO DAILY #90 tabs 11/12/21 metformin 500 mg tablet 500 mg PO DAILY #90 tabs 11/12/21 clopidogrel 75 mg tablet (Plavix) 75 mg PO DAILY #90 tabs 11/27/21 blood sugar diagnostic (Blood #100 ea 12/10/21 Glucose Test strips) ciprofloxacin HCl 500 mg tablet 500 mg PO BID #14 tabs 12/10/21 (Cipro) gabapentin 300 mg capsule See Rx Instructions PO TID #240 12/10/21 caps metronidazole 500 mg tablet 500 mg PO TID #21 tabs 12/10/21 Allergies Allergy/AdvReac Type Severity Reaction Status Date / Time No Known Allergies Allergy Verified 12/11/21 10:02 General Stated Complaint: Abd Prob TAE: 2 Review of Systems Constitutional Constitutional: Denies fever(s) and Denies weakness ENT Ears, Nose, Mouth, and Throat: Denies neck pain Cardiovascular Cardiovascular: Denies chest pain and Denies dyspnea Respiratory Respiratory: Denies cough and Denies dyspnea Gastrointestinal Gastrointestinal: Reports abdominal pain, Denies constipation, Denies diarrhea, Denies nausea and Denies vomiting Genitourinary Genitourinary: Denies dysuria Musculoskeletal Musculoskeletal: Denies back pain and Denies neck pain Integumentary/Breasts Skin/Breast: Denies rash Neurologic Neurologic: Denies weakness Hematologic/Lymphatic Hematologic/Lymphatic: Reports easy bleeding and Reports easy bruising [facility] All Active Problems (Updated 12/11/21 @ 14:17 by JESSIE Barber) Open abdominal wall wound (Acute) Obesity (Chronic) Bilateral knee pain (Acute) Bilateral primary osteoarthritis of knee (Acute) Depression (Chronic) Open abdominal wall wound (Acute) Infection and inflammatory reaction due to other internal prosthetic devices, implants and grafts, subsequent encounter (Acute ~09/30/21) 09/30/21 Infectious Disease Neuropathic pain (Acute ~10/2021) 10/17/21 Surgical Note Unspecified open wound of abdominal wall, unspecified quadrant without penetration into peritoneal cavity, subsequent encounter (Acute ~07/2021) 10/07/21 F/u General Surgery Stroke (Chronic) Mild cognitive impairment (Acute) De Quervain's tenosynovitis, left (Acute) Delayed wound healing (Acute) Two area of scabbing with Hx exudate and delayed healing 08/12/21 admitted ABD Wall Absess - debrided and Vac placed Hyperlipidemia (Acute) Asthma (Chronic) Hypertension (Chronic) Chronic apical abscess (Acute) Diabetes mellitus type 2, controlled (Acute ~04/2021) Tobacco abuse (Acute) SBO (small bowel obstruction) (Acute) BMI 45.0-49.9, adult (Acute) Dehydration (Acute) Recurrent ventral hernia (Acute) Repair at [facility] , incarcerated 04/25/21 Ventral hernia with bowel obstruction (Acute) Internal derangement of right knee (Acute) Depo-medrol injection: 01/21/2021 Internal derangement of left knee (Acute) DEPO MEDROL INJECTION 04/17/21 Medical History Abscess of abdominal wall [facility] 09/19/21 note Anal fissure Diverticulitis History of anal fissures Surgical History 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 H/O hernia repair (04/25/21) Repair incarcerated ventral hernia-[place] H/O hernia repair (~07/23/21) Repair incisional/ventral hernia with mesh-[place] History of x2 History of cholecystectomy History of colostomy History of hernia repair umbilical x3 History of partial colectomy Hx of colonoscopy S/P debridement (~09/13/21) Abscess of ABD wall, [facility] Status post arthroscopy of right knee (12/04/20) With partial medial meniscectomy Status post hysterectomy Family History Father Alcohol use disorder Cancer pancreatic Diabetes Hypertension Brother Alcohol use disorder Depression Hypertension Sister Alcohol use disorder Asthma Depression Mother Anxiety Heart disease Hypertension Son Asthma Social History Smoking/Tobacco Use Status: Current every day Tobacco Type: cigarettes Smoking packs per day: 1 Smoking cigarettes per day: 20.0 Years smoked: 43 Smoking pack- years: 43.00 Quit status: considering quitting Second Hand Exposure: No Smoking risk assessment performed?: Yes Alcohol Intake: never Drug use: Never Substance use type: does not use Adopted: No Caregiver/Support person: No Foster care: No Household members: family Housing: house Number of Children: 2 number of grandchildren: 1 Communication Needs: None Education Level: college Details: Associate's Degree Do you need help understanding health information?: Rarely Pets and animals: Yes (2) Pets and animals: cat(s) Sexually active: No Current gender identity: female What is your relationship status?: never How often do you talk on the phone with friends or family?: twice per week Do you belong to any clubs or organized social groups?: no Panel score (0-1 are the most socially isolated patients): 0 What type of physical activity do you participate in: none Nubia/Mormon: None Special nubia needs: No Seatbelt use: always Helmet use: No Drive intox or ride w/intox superintendent drivers: No Do you feel safe at home: Yes Do you feel safe in your relationship?: Yes Exam Const General: cooperative, comfortable, no acute distress and ill appearing chronically Orientation: alert and awake [facility] Head: normal to inspection, normocephalic and atraumatic Face and sinus: normal facial exam Mouth: moist mucous membranes Eyes Conjunctivae: conjunctivae normal Neck Neck: normal visual inspection, full ROM, trachea midline and supple Resp Effort & Inspection: normal respiratory effort and able to speak in complete sentences Auscultation: clear to auscultation bilaterally Cardio Rate: regular rate Rhythm: regular rhythm GI Inspection: obesity Palpation: soft, not firm, no guarding, no pulsatile masses and tender Auscultation: normal bowel sounds Other: There is a chronic appearing surgical wound-incision that is packed, diffuse mild tenderness, worse along the inferior aspect. There is no surrounding erythema or warmth. There is no active bleeding. Just inferior to the main wound there is a nickel sized shallow wound. Packing removed from the larger wound, rather shallow in nature, there is a small amount of necrotic tissue along the margins. There is no obvious purulent drainage. Back/Spine/Pelvis Back: No back tenderness Skin General skin exam: no rashes or lesions noted Neuro General: patient alert, patient awake, moves all extremities and no focal motor deficits Cognition: normal cognition Speech: speech normal Sensory Exam: no sensory deficits noted Extrem General: normal to inspection, full ROM and capillary refill normal Psych Appearance: grossly normal Mental Status: mental status grossly normal Course Vital Signs Vital signs: Vital Signs Temperature 36.6 C 12/11/21 09:54 Pulse 90 12/11/21 09:54 Respiratory Rate 24 12/11/21 09:54 Blood Pressure 145/85 H 12/11/21 09:54 Pulse Oximetry 98 12/11/21 09:54 Temperature 36.6 C 12/11/21 09:54 Temperature Source Temporal Artery Scan 12/11/21 09:54 Pulse 90 12/11/21 09:54 Respiratory Rate 24 12/11/21 09:54 Respiratory Effort Non-Labored 12/11/21 09:58 Blood Pressure 145/85 H 12/11/21 09:54 Blood Pressure Position Supine 12/11/21 09:54 Pulse Oximetry 98 12/11/21 09:54 Oxygen Delivery Method Room Air 12/11/21 09:54 Oxygen Flow Rate 0 12/11/21 09:54 Pain Level 10 12/11/21 09:54
[2021-12-11] MEDS: Normal Saline 1,000 ML 1000 ML IV (10:34)
[2021-12-11] MEDS: HYDROmorphone 2 MG/ML SYR 1 MG IVP (10:35)
[2021-12-11 10:38] LABS: Abs Immature Grans 0.06 10^3/uL (0.0-0.06); Absolute Basophil Count 0.09 10^3/uL (0.0-0.2); Absolute Eosinophil Count 0.31 10^3/uL (0.0-0.7); Absolute Lymphocyte Count 3.02 10^3/uL (1.2-3.4); Absolute Monocyte Count 0.82 10^3/uL (0.1-0.8); Basophils % 0.8; Eosinophils % 2.8; HCT 42.3 % (36.0-46.0); HGB 13.8 g/dL (11.2-15.7); Immature Grans % 0.5; Lymphocytes % 27.2; MCH 30.5 pg (27.0-33.0); MCHC 32.6 % (32.0-36.0); MCV 93 fL (80-95); MPV 9.2 fL (8.0-11.0); Monocytes % 7.4; Neutrophils % 61.3; Platelet Count 325 10^3/uL (130-400); RBC 4.53 10^6/uL (3.93-5.22); RDW 12.7 % (11.7-14.6); RDW-SD 43.9 fL
[2021-12-11 10:40] LABS: Lactate 2.3 mmol/L (0.6-1.4)
[2021-12-11 10:55] LABS: ALT 23 U/L (14-59); AST 16 U/L (15-37); Albumin 3.2 g/dL (3.4-5.0); Alkaline Phosphatase 127 U/L (46-116); Anion Gap 6.9 mmol/L (3-11); BUN 17 mg/dL (7-18); Bilirubin, Total 0.3 mg/dL (0.2-1.0); CO2 32.1 mmol/L (21.0-32.0); CREATININE 0.8 mg/dL (0.55-1.02); Calcium 9.6 mg/dL (8.5-10.1); Chloride 98 mmol/L (98-107); Estimated GFR 84.82 (mL/min/1.73m2); Glucose 131 mg/dL (74-106); Lipase 82 U/L (73-393); Sodium 137 mmol/L (136-145); Total Protein 7.6 g/dL (6.4-8.2)
--- NOTE | 2021-12-11 11:00 | RT.EKG_ITS ---
APPROVED REPORT Exam: Resting ECG Reason for Exam: Hypokalemia Patient Location: E HR:68 bpm ECG Measurements Heart Rate 68 AXIS MA 139 P 38 QRSd 63 QRS 15 QT 424 T 68 QTc 450 Conclusion Sinus rhythm...normal P axis, V-rate 60- 99 sinus rhythm, normal axis, normal intervals, nonischemic
--- NOTE | 2021-12-11 11:00 | DI.CT_ITS ---
Exam(s) CT ABDOMEN PELVIS W EXAM: CT ABDOMEN PELVIS W INDICATION: Multiple abdominal surgeries, increased pain. COMPARISON: CT CT ABDOMEN PELVIS W from 09/27/2021 TECHNIQUE: FINDINGS: CT examination of the abdomen and pelvis was performed with intravenous infusion of 100 cc of Omnipaq ue 350. The examination is compared with prior examination of September 27, there has been apparent increased he aling of an anterior abdominal wound. Anterior abdominal wall is patulous with no true hernia seen. Images obtained through the lung bases are unremarkable. The liver shows decreased attenuation in a somewhat geographic pattern consistent with hepatic steato sis. Gallbladder and bile ducts are CT normal. Pancreas appears normal. Spleen is unremarkable in appearance. Adrenals appear normal. The kidneys are unremarkable with no evidence of hydronephrosis, nephrolithiasis, or renal mass.. Ur inary bladder unremarkable. Abdominal aorta is of normal diameter and no major vascular abnormality is seen. No abdominal wall hernia. No abdominal or pelvic adenopathy. Uterus is atrophic or absent.. Appendix is normal. No evidence of diverticulitis or bowel obstruction. IMPRESSION: No evidence of acute process. RADIATION DOSE DELIVERED: 1,680.69mGy.cm Total DLP 1,680.69mGy.cm Total DLP !Error CTDIvol RADIATION OPTIMIZATION: All CT scans at this facility use at least one of these dose optimization te chniques: automated exposure control; mA and/or kV adjustment per patient size (includes targeted exa ms where dose is matched to clinical indication); or iterative reconstruction.
[2021-12-11 11:18] LABS: PTT Activated 29.6 sec (21.0-27.5); Prothrombin Time 10.1 sec (9.3-11.0)
[2021-12-11] MEDS: Potassium Chloride 20 MEQ TABCR 40 MEQ PO (11:19)
[2021-12-11] MEDS: POTASSIUM CHLORIDE 10 MEQ/100 ML BAG 100 MEQ IVPB (11:19)
[2021-12-11 11:22] LABS: Magnesium 1.5 mg/dL (1.8-2.4)
[2021-12-11] MEDS: HYDROmorphone 2 MG/ML SYR IVP (11:23)
[2021-12-11 11:31] LABS: Source Nasal/Nares
[2021-12-11] MEDS: Omnipaque 350 MG/ML 100 ML BTL IJ (11:48)
[2021-12-11 12:13] LABS: COVID-19 PCR Negative (Negative)
[2021-12-11] MEDS: MAGNESIUM SULFATE 1 GM/100 ML BAG IVPB (12:59)
[2021-12-11 13:16] LABS: Lactate 1.2 mmol/L (0.6-1.4)
--- NOTE | 2021-12-11 13:16 | SCONE_ITS ---
Date of service: 12/11/21 Time of Service: 13:16 Assessment and Plan Assessment and plan (1) Open abdominal wall wound: Status: Acute Assessment and plan: Ms Montgomery is a 61-year-old female with multiple health issues who comes in with increase in pain along one of her wounds from a midline incision. She has had multiple abdominal surgeries after a ventral hernia repair done at [facility]. CT scan does not suggest a drainable abscess. The wound itself just does not look healthy. There is not a lot of bright red granulation tissue. There is some fatty necrosis noted at around 6:00. The wounds have only been getting changed Thursday. Recommend checking another lactic acid to make sure that this has come down after hydration. Recommend checking a procalcitonin. Recommend changing the dressings to Aquacel Ag with daily dressing changes for the next couple of weeks. Follow-up with [facility]. History of Present Illness Narrative: Ms Montgomery is a 61-year-old female, with a past medical history of diabetes, depression, morbid obesity, CVA, on Plavix, hypertension, extensive abdominal surgical history presenting to the ER reporting increased pain and bleeding from her abdominal surgical site over the past 3 days.? She denies recent illness or trauma.? She denies fever, chest pain, diarrhea, constipation or black tarry stools or bright red blood in her stools.? Patient states that she took a single Dilaudid prior to arrival for the severe pain, has not taken this in about 2 months.? She states that she was originally followed extensively at [facility] and subsequently with multiple admissions but is now trying to follow-up with her PCP as travel is quite a hardship.? She denies recent fall, lifting mechanism, etc. that caused any of the symptoms.? I was able to review a record from [facility] and it would appear as though she had her original surgery in July, primary fascial closure after ventral hernia repair with overtax overlay, she subsequently developed a wound infection which required debridement of much of the mesh, subsequent admission to [facility], brought back to the OR on 10-08-2021 for exploration and debridement.? Patient was seen by her PCP yesterday and placed on Cipro and Flagyl. She is followed by Solitario Lopze who is changing her dressings on [facility]. She is afebrile in the ER. She has a mild leukocytosis. Consults Consult date: 12/11/21 Requesting physician: Konstantin Miller Review of Systems Constitutional Constitutional: Denies fever(s), Denies headache(s), Denies night sweats and Denies weight loss Eyes Eyes: Reports system reviewed and no additional complaints, except as documented ENT Ears, Nose, Mouth, and Throat: Denies dysphagia, Denies headache(s) and Denies hoarseness Cardiovascular Cardiovascular: Denies chest pain, Denies chest pain at rest, Denies irregular heart rhythm, Denies palpitations and Denies dyspnea Respiratory Respiratory: Denies cough and Denies dyspnea Gastrointestinal Gastrointestinal: Denies melena, Denies coffee ground emesis, Denies constipation, Denies dysphagia, Denies diarrhea and Denies vomiting Genitourinary Genitourinary: Reports system reviewed and no additional complaints, except as documented Musculoskeletal Musculoskeletal: Reports system reviewed and no additional complaints, except as documented Integumentary/Breasts Skin/Breast: Reports as per HPI Neurologic Neurologic: Denies headache(s) Endocrine Endocrine: Denies palpitations PFSH All Active Problems Obesity (Chronic) Bilateral knee pain (Acute) Bilateral primary osteoarthritis of knee (Acute) Depression (Chronic) Open abdominal wall wound (Acute) Infection and inflammatory reaction due to other internal prosthetic devices, implants and grafts, subsequent encounter (Acute ~09/30/21) 09/30/21 Infectious Disease Neuropathic pain (Acute ~10/2021) 10/17/21 Surgical Note Unspecified open wound of abdominal wall, unspecified quadrant without penetration into peritoneal cavity, subsequent encounter (Acute ~07/2021) 10/07/21 F/u General Surgery Stroke (Chronic) Mild cognitive impairment (Acute) De Quervain's tenosynovitis, left (Acute) Delayed wound healing (Acute) Two area of scabbing with Hx exudate and delayed healing 08/12/21 admitted ABD Wall Absess - debrided and Vac placed Hyperlipidemia (Acute) Asthma (Chronic) Hypertension (Chronic) Chronic apical abscess (Acute) Diabetes mellitus type 2, controlled (Acute ~04/2021) Tobacco abuse (Acute) SBO (small bowel obstruction) (Acute) BMI 45.0-49.9, adult (Acute) Dehydration (Acute) Recurrent ventral hernia (Acute) [place] [facility] [place] Ventral hernia with bowel obstruction (Acute) Internal derangement of right knee (Acute) Depo-medrol injection: 01/21/2021 Internal derangement of left knee (Acute) DEPO MEDROL INJECTION 04/17/21 Medical History [place]cess [place] [facility] [place] Anal fissure Diverticulitis History of anal fissures Surgical History 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 H/O hernia repair (04/25/21) Repair incarcerated ventral hernia-[place] H/O hernia repair (~07/23/21) Repair incisional/ventral hernia with mesh-[place] History of x2 History of cholecystectomy History of colostomy History of hernia repair umbilical x3 History of partial colectomy Hx of colonoscopy S/P debridement (~09/13/21) [place] [facility] [place] post arthroscopy of right knee (12/04/20) With partial medial meniscectomy Status post hysterectomy Family History Father Alcohol use disorder Cancer pancreatic Diabetes Hypertension Brother Alcohol use disorder Depression Hypertension Sister Alcohol use disorder Asthma Depression Mother Anxiety Heart disease Hypertension Son Asthma Social History Smoking/Tobacco Use Status: Current every day Tobacco Type: cigarettes Smoking packs per day: 1 Smoking cigarettes per day: 20.0 Years smoked: 43 Smoking pack- years: 43.00 Quit status: considering quitting Second Hand Exposure: No Smoking risk assessment performed?: Yes Alcohol Intake: never Drug use: Never Substance use type: does not use Adopted: No Caregiver/Support person: No Foster care: No Household members: family Housing: house Number of Children: 2 number of grandchildren: 1 Communication Needs: None Education Level: college Details: Associate's Degree Do you need help understanding health information?: Rarely Pets and animals: Yes (2) Pets and animals: cat(s) Sexually active: No Current gender identity: female What is your relationship status?: never How often do you talk on the phone with friends or family?: twice per week Do you belong to any clubs or organized social groups?: no Panel score (0-1 are the most socially isolated patients): 0 What type of physical activity do you participate in: none Nubia/Baptist: None Special nubia needs: No Seatbelt use: always Helmet use: No Drive intox or ride w/intox recycle driver: No Do you feel safe at home: Yes Do you feel safe in your relationship?: Yes Exam Const General: cooperative, comfortable and no acute distress HENMT Head: normocephalic and atraumatic Resp Effort & Inspection: normal respiratory effort GI Other: Abdominal wall- There is a 10 x 15 x 1 cm open wound. There is bloody discharge on the dressings. There is some necrotic fat noted at 6 o'clock. No tunneling is noted. No overtly purulent discharge noted. NO smell. There is another 1 x 1.5 x0.1 cm wound at the inferior portion of her midline wound which is tender to palpation. There is no fluctuance. NO erythema around the wound. Results Last Vital Signs Temp 97.9 F 12/11/21 09:54 Pulse 90 12/11/21 09:54 Resp 24 12/11/21 09:54 BP 145/85 H 12/11/21 09:54 Pulse Ox 98 12/11/21 09:54 Labs Result diagrams: 12/11/21 10:08 12/11/21 10:08 Labs: Laboratory Results - last 24 hr 12/11/21 12/11/21 12/11/21 10:08 10:08 10:08 WBC 11.10 H RBC 4.53 Hgb 13.8 Hct 42.3 MCV 93 MCH 30.5 MCHC 32.6 RDW 12.7 Plt Count 325 MPV 9.2 Immature Gran % 0.5 Neutrophils % 61.3 Lymphocytes % 27.2 Monocytes % 7.4 Eosinophils % 2.8 Basophils % 0.8 Nucleated RBC % 0.0 Absolute Neutrophils 6.80 H Absolute Lymphocytes 3.02 Absolute Monocytes 0.82 H Absolute Eosinophils 0.31 Absolute Basophils 0.09 PT INR APTT VBG Lactate 2.3 H* Sodium 137 Potassium 3.0 L Chloride 98 Carbon Dioxide 32.1 H Anion Gap 6.9 BUN 17 Creatinine 0.8 Est GFR (CKD-EPI 2020) 84.82 Glucose 131 H Calcium 9.6 Magnesium Total Bilirubin 0.3 AST 16 ALT 23 Alkaline Phosphatase 127 H Total Protein 7.6 Albumin 3.2 L Lipase 82 COVID-19 Source SARS-CoV-2 (PCR) 12/11/21 12/11/21 12/11/21 10:08 10:50 11:15 WBC RBC Hgb Hct MCV MCH MCHC RDW Plt Count MPV Immature Gran % Neutrophils % Lymphocytes % Monocytes % Eosinophils % Basophils % Nucleated RBC % Absolute Neutrophils Absolute Lymphocytes Absolute Monocytes Absolute Eosinophils Absolute Basophils PT 10.1 INR 1.0 APTT 29.6 H VBG Lactate Sodium Potassium Chloride Carbon Dioxide Anion Gap BUN Creatinine Est GFR (CKD-EPI 2020) Glucose Calcium Magnesium 1.5 L Total Bilirubin AST ALT Alkaline Phosphatase Total Protein Albumin Lipase COVID-19 Source Nasal/Nares SARS-CoV-2 (PCR) Negative Imaging Abdomen CT scan report/results: report reviewed and image reviewed
[2021-12-11 13:37] LABS: Procalcitonin < 0.1 ng/mL
[2021-12-11] MEDS: Ondansetron O.D.T. 4 MG TABEF (14:36)
== END 2021-12-11 14:35 | disposition home or self-care (01) ==
PROVIDERS: Emergency Provider Physician Assistant; PCP Nurse Practitioner
DX: S31.109A Unspecified open wound of abdominal wall, unspecified quadrant without penetration into peritoneal cavity, initial encounter (principal); E11.9 Type 2 diabetes mellitus without complications; I10 Essential (primary) hypertension; Z90.49 Acquired absence of other specified parts of digestive tract; Z90.710 Acquired absence of both cervix and uterus; Z98.890 Other specified postprocedural states; E87.6 Hypokalemia; D72.829 Elevated white blood cell count, unspecified; Z79.84 Long term (current) use of oral hypoglycemic drugs; X58.XXXA Exposure to other specified factors, initial encounter; Z20.822 Contact with and (suspected) exposure to COVID-19
CPT/HCPCS: 36415; 80053; 83690; 84145; 87635; 93005; 96361; 96365; 96367; 96375; 96376; 99285; 74177; 83605; 83735; 85025; 85610; 85730; 93010; 99284; J1170; J3475; J3480; J3490

== ENCOUNTER 2021-12-27 12:30 | Emergency (ER) | payer MEDICAID, SELFPAY ==
[2021-12-27] VITALS (59 sets, daily range): BP systolic 103–171; BP diastolic 57–93; PULSE 53–90; RESP 8–21; O2SAT 82–99
--- NOTE | 2021-12-27 15:15 | DI.CT_ITS ---
Exam(s) CT ABDOMEN PELVIS W EXAM: CT ABDOMEN PELVIS W CLINICAL HISTORY: abd wall pain and post ops infection TECHNIQUE: Imaging Protocol: Axial computed tomography images with coronal and sagittal reformatted images were created and reviewed CONTRAST MATERIAL: Intravenous: Omnipaque 350 Contrast volume:100 mL Oral: No COMPARISON: CT CT ABDOMEN PELVIS W from 12/11/2021 FINDINGS: ABDOMEN: Lung Bases: Mild dependent atelectasis. Liver: Normal density. No measurable mass. Portal, Superior Mesenteric, and Splenic Veins: Unremarkable. Gallbladder and Biliary Tract: Status post cholecystectomy. No significant biliary ductal dilatation . Pancreas: Normal density, no abnormal calcifications or inflammatory process. Spleen: Normal. Adrenals: No masses seen. Kidneys: Normal size, contour and axis. No radiodense stones or obstructive uropathy. Tiny hypodensit ies are seen in the kidneys. They are too small for further characterization, but likely reflect sma ll cysts. Abdominal Aorta: Abdominal portion non-dilated. Atherosclerosis is present. Bowel: No obstruction or bowel wall thickening. No evidence of appendicitis. There are few scattered sigmoid diverticula but no evidence of acute diverticulitis. Peritoneal Cavity: No ascites, collection or mesenteric inflammatory response. No free air. Lymph Nodes: Within normal limits. Bones: Within normal limits for the patient's age. Soft Tissues: Midline abdominal wall defect with mild subcutaneous fat stranding. No evidence of an abdominal wall hernia. PELVIS: Bladder: Symmetric distention, no gross wall thickening. Reproductive Organs: Status post hysterectomy. Lymph Nodes: Within normal limits. Bones: Within normal limits for the patient's age. IMPRESSION: Stable midline abdominal wall defect with fat stranding in the subcutaneous tissues but no evidence o f an abdominal wall abscess. RADIATION DOSE DELIVERED: 1,385.83mGy.cm Total DLP DATA REPOSITORY: All CT scans at this facility are submitted to the National Radiology Data Registry (NRDR) Dose Index Registry (DIR) with the [employer] (ACR). RADIATION OPTIMIZATION: All CT scans at this facility use at least one of these dose optimization te chniques: automated exposure control; mA and/or kV adjustment per patient size (includes targeted exa ms where dose is matched to clinical indication); or iterative reconstruction.
[2021-12-27 15:32] LABS: Abs Immature Grans 0.05 10^3/uL (0.0-0.06); Absolute Eosinophil Count 0.36 10^3/uL (0.0-0.7); Absolute Lymphocyte Count 3.49 10^3/uL (1.2-3.4); Absolute Monocyte Count 0.81 10^3/uL (0.1-0.8); Absolute Neutrophil Count 6.56 10^3/uL (1.2-6.7); Basophils % 0.9; Eosinophils % 3.2; HCT 41.4 % (36.0-46.0); HGB 13.7 g/dL (11.2-15.7); Immature Grans % 0.4; Lymphocytes % 30.7; MCHC 33.1 % (32.0-36.0); MCV 91 fL (80-95); MPV 8.9 fL (8.0-11.0); Monocytes % 7.1; Neutrophils % 57.7; Platelet Count 394 10^3/uL (130-400); RBC 4.57 10^6/uL (3.93-5.22); RDW 12.5 % (11.7-14.6); RDW-SD 41.6 fL; WBC 11.37 10^3/uL (4.4-10.8)
[2021-12-27 15:34] LABS: Lactate 1.4 mmol/L (0.6-1.4)
[2021-12-27] MEDS: HYDROmorphone 2 MG/ML SYR 1 MG IVP ×2 (15:42→17:05)
[2021-12-27] MEDS: Normal Saline 250 ML IV (15:42)
[2021-12-27 15:48] LABS: ALT 20 U/L (14-59); AST 10 U/L (15-37); Alkaline Phosphatase 121 U/L (46-116); Anion Gap 7.2 mmol/L (3-11); BUN 17 mg/dL (7-18); Bilirubin, Total 0.2 mg/dL (0.2-1.0); CO2 31.8 mmol/L (21.0-32.0); CREATININE 0.7 mg/dL (0.55-1.02); Calcium 9.6 mg/dL (8.5-10.1); Chloride 98 mmol/L (98-107); Estimated GFR 99.57 (mL/min/1.73m2); Glucose 160 mg/dL (74-106); Magnesium 1.7 mg/dL (1.8-2.4); Sodium 137 mmol/L (136-145); Total Protein 7.6 g/dL (6.4-8.2)
[2021-12-27 15:56] LABS: Potassium 2.9 mmol/L (3.5-5.1)
--- NOTE | 2021-12-27 16:02 | ED.GENADUL_ITS ---
Discharge Plan Disposition Patient Disposition: HOME Condition: Stable Discharge Details Clinical Impression: Abdominal pain, Hypokalemia, Hypomagnesemia, Abdominal wound dehiscence Primary Care Provider: Ally Ortiz ED Provider: Beti Ward Home Meds and New Rx's Prescriptions: New potassium chloride 10 mEq capsule, extended release 10 meq PO DAILY Qty: 10 0RF Continued hydrochlorothiazide 25 mg tablet 25 mg PO DAILY Qty: 90 3RF metformin 500 mg tablet 500 mg PO DAILY Qty: 90 3RF bupropion HCl [Wellbutrin XL] 150 mg tablet extended release 24 hr 150 mg PO QAM Qty: 90 3RF atorvastatin 20 mg tablet 20 mg PO QPM Qty: 90 3RF sennosides 8.6 mg tablet 17.2 mg PO DAILY clopidogrel [Plavix] 75 mg tablet 75 mg PO DAILY Qty: 90 3RF ciprofloxacin HCl [Cipro] 500 mg tablet 500 mg PO BID Qty: 14 0RF metronidazole 500 mg tablet 500 mg PO TID Qty: 21 0RF gabapentin 300 mg capsule See Rx Instructions PO TID Qty: 240 3RF Rx Instructions: 2 caps every morning, 3 caps at dinner time and 3 caps at HS eszopiclone [Lunesta] 2 mg tablet 2 mg PO QHS Label Comments: 10/17/21 DH note (DME) Blood Glucose Test Strip See Rx Instructions .ROUTE .MEDSUPPLY Qty: 100 3RF Rx Instructions: As directed to check blood glucose daily. No insulin. ONE TOUCH VERIO hydromorphone 2 mg tablet 1 tab PO Q6H Discharge Instructions Instructions: Oxycodone, Rapid Release (By mouth), Hypokalemia (ED), Abdominal Pain (ED) Additional Instructions: Your CT did not show any deep space infections. Your labs are also reassuring here from an infection standpoint. However, I am concerned about your potassium. As this did seem to be muscular spasm, it could be associated with the low potassium. You are choosing to leave prior to my final consultation with [facility] surgery. I will call you after I have spoken with them. If you do not hear from you in the next hour, please call the emergency department at [phone]. Please continue the gabapentin as previously prescribed. You may use Tylenol and ibuprofen as needed for discomfort. Please encourage hydration. If this is unsuccessful with your discomfort, you may augment this with the oxycodone as prescribed. Please not drive or take this medication. You may take 1 tab every 6 hours as needed for breakthrough pain. Do not drink alcohol or take other sedating medications while using this medication. Please follow-u p with your surgical team next week for reevaluation. If you develop any new or worsening symptoms please seek care urgently once again. Referrals: Ally Ortiz NP [Primary Care Provider] - Discharge Data Discharge Date/Time-TO BE ENTERED AT DEPARTURE: 12/27/21 22:37 Medical Decision Making <Rubén Mccray NP - Last Filed: 12/28/21 08:47> Patient presenting to the emergency department for chief complaint of open abdominal wall wound that is worsening. She states that home health attempted to change dressing and was unable to change dressings due to severe pain and discomfort. She attempted to be seen at [facility] [place] 2 days ago but due to wait time left prior to full completion of evaluation. Patient states pain and discharge has worsened causing her to come to the emergency department. Patient denies any fever chills, or vomiting diarrhea or consti pation. Review of systems otherwise negative. Physical exam shows 3 open wounds to the anterior aspect of the midline abdomen with the mid superior wound being worse. Patient does have significant drainage from the wound but no significant surrounding erythema or severe cellulitis noted. We will draw labs and obtain wound culture along with CT imaging for any concern of tunneling wound. Will give patient fluids and analgesia pending results. Recommended reassessment of patient's abdomen after she receives pain medication for better exam. Beti Ward Care transitioned to myself from Chad Mccray NP, with FINDINGS: Lungs: The visualized portions of the lung bases are normal. Liver: Normal. No mass. Gallbladder and bile ducts: There has been a cholecystectomy. Pancreas: Normal. No ductal dilation. Spleen: Normal. No splenomegaly. Adrenal glands: Normal. No mass. Kidneys and ureters: Normal. No hydronephrosis. Stomach and bowel: Mild diverticulosis is present in the distal colon. Appendix: No evidence of appendicitis. Intraperitoneal space: Unremarkable. No free air. No significant fluid collection. Vasculature: The vasculature demonstrates diffuse moderate atherosclerotic calcification. Lymph nodes: Unremarkable. No enlarged lymph nodes. Urinary bladder: Unremarkable as visualized. Reproductive: Unremarkable as visualized. Bones/joints: Unremarkable. No acute fracture. Soft tissues: Stable midline abdominal wall defect with mild subcutaneous fat stranding and areas of scarring. No evidence of abdominal wall abscess. IMPRESSION: 1. Stable midline abdominal wall defect with mild subcutaneous fat stranding and areas of scarring.? No evidence of abdominal wall abscess. 2. Mild sigmoid diverticulosis. After patient left, I did speak with the surgical team at [facility]. She was able to review the images that were sent to her with patient permission as well as the CT scan. She agrees that this is not suggestive of infectious source. Is questioning if this could be associated with the dressings. Patient does have an appointment with them Thursday afternoon. She has agreed to the concern of potentially having these waves of discomfort associated with her electrolyte abnormalities that have since been corrected. She does not feel that antibiotics are warranted at this time. I did call the patient and relay these information with her as she left prior to my discussion with surgery. <JESSIE Everett - Last Filed: 01/03/22 08:23> Patient presenting to the emergency department for chief complaint of open abdominal wall wound that is worsening. She states that home health attempted to change dressing and was unable to change dressings due to severe pain and discomfort. She attempted to be seen at [facility] [place] 2 days ago but due to wait time left prior to full completion of evaluation. Patient states pain and discharge has worsened causing her to come to the emergency department. Patient denies any fever chills, or vomiting diarrhea or constipation. Review of systems otherwise negative. Physical exam shows 3 open wounds to the anterior aspect of the midline abdomen with the mid superior wound being worse. Patient does have significant drainage from the wound but no significant surrounding erythema or severe cellulitis noted. We will draw labs and obtain wound culture along with CT imaging for any concern of tunneling wound. Will give patient fluids and analgesia pending results. Recommended reassessment of patient's abdomen after she receives pain medication for better exam. Beti Ward Care transitioned to myself from Chad Mccray NP, with labs and imaging pending. Please see his initial note regarding history, presentation and exam. At the t nargis that Mr. Mccray had initially evaluated the patient, her pain was quite severe and exam was limited. After she had been medicated, I preformed another abdominal exam. Her pain is fairly diffuse, it does extend toard the R>L laterals aspect of the abdomen. She has no real cellulitic changes, the erythema around the chronic wound appears more like an abrasion. She has not had any trauma, I am wondering if this was associated with the dressing. She does not have significant drainage. I did gently probe with q-tip and no tracking area noted, what could be colleted was sent for culture. Pain much more controlled. Labs reviewed, mild leukocytosis of 11.3. Lactate WNL. Potassium 2.9, replenished IV and PO. CT reviewed by radiologist: FINDINGS: Lungs: The visualized portions of the lung bases are normal. Liver: Normal. No mass. Gallbladder and bile ducts: There has been a cholecystectomy. Pancreas: Normal. No ductal dilation. Spleen: Normal. No splenomegaly. Adrenal glands: Normal. No mass. Kidneys and ureters: Normal. No hydronephrosis. Stomach and bowel: Mild diverticulosis is present in the distal colon. Appendix: No evidence of appendicitis. Intraperitoneal space: Unremarkable. No free air. No significant fluid collection. Vasculature: The vasculature demonstrates diffuse moderate atherosclerotic calcification. Lymph nodes: Unremarkable. No enlarged lymph nodes. Urinary bladder: Unremarkable as visualized. Reproductive: Unremarkable as visualized. Bones/joints: Unremarkable. No acute fracture. Soft tissues: Stable midline abdominal wall defect with mild subcutaneous fat stranding and areas of scarring. No evidence of abdominal wall abscess. IMPRESSION: 1. Stable midline abdominal wall defect with mild subcutaneous fat stranding and areas of scarring.? No evidence of abdominal wall abscess. 2. Mild sigmoid diverticulosis. Pushed images to [facility]. Asked for consultation with her general surgeryr team. Spoke with sanitation technician general surgeon. With patient permission, photo of the chronic wound was sent to her. She advised she is going into the OR and will call back after she is able to review the CT. While awaiting call back, patient reports that she would like to go home. I do not see evidence of acute cellulitis. Her CT is reassuring, showing chronic wound. She had been having waves of pain, some witnessed by myself. She appeared to be having spasms, questioning if this could have been associated with her hypokalemia which has since been replaced. 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 Will continue with pain regimen. Will send home with a few oxycodone to help with severe break through pain. We discussed risks of this medication, SE and that she should not drink ETOH or drive. She left me her cell phone juleeparvin, I will call with the continued management plan after speaking with the general surgery team. She is aware she may return at any time. Strict return precautions discussed. All of her questions and concerns were addressed, she is agreement with this plan. After patient left, I did speak with the surgical team at [facility]. She was able to review the images that were sent to her with patient permission as well as the CT scan. She agrees that this is not suggestive of infectious source. Is questioning if this could be associated with the dressings. Patient does have an appointment with them Thursday afternoon. She has agreed to the concern of potentially having these waves of discomfort associated with her electrolyte abnormalities that have since been corrected. She does not feel that antibiotics are warranted at this time. I did call the patient and relay these information with her as she left prior to my discussion with surgery. HPI <Rubén Mccray NP - Last Filed: 12/28/21 08:47> General Mode of arrival: wheelchair . Date/Time Provider Initiated Documentation: 12/27/21 12:49 . Limitations to Documentation: no limitations . Information obtained by: patient, RN notes reviewed and old records reviewed . History of Present Illness 61 year old F presents to the emergency department with the chief complaint of Abdominal pain and wound infection, described as severe, with intensity rated at 10. Quality is described as aching and sharp, and is localized to the abdomen. Patient started experiencing this day(s) (5) and it has been intermittent (Has been waxing and waning since July). No relieving factors improve symptom(s), No exacerbating factors reported . Patient notes no other symptoms.. Patient did receive the following treatments prior to arrival, none Related Data Home Medications Medication Instructions Recorded Confirmed atorvastatin 20 mg tablet 20 mg PO QPM #90 tabs 06/10/21 12/27/21 eszopiclone 2 mg tablet (Lunesta) 2 mg PO QHS 10/23/21 12/27/21 bupropion HCl 150 mg 24 hr tablet, 150 mg PO QAM #90 tabs 11/12/21 12/27/21 extended release (Wellbutrin XL) hydrochlorothiazide 25 mg tablet 25 mg PO DAILY #90 tabs 11/12/21 12/27/21 metformin 500 mg tablet 500 mg PO DAILY #90 tabs 11/12/21 12/27/21 clopidogrel 75 mg tablet (Plavix) 75 mg PO DAILY #90 tabs 11/27/21 12/27/21 sennosides 8.6 mg tablet 17.2 mg PO DAILY 11/27/21 12/27/21 blood sugar diagnostic (Blood #100 ea 12/10/21 12/27/21 Glucose Test strips) ciprofloxacin HCl 500 mg tablet 500 mg PO BID #14 tabs 12/10/21 12/27/21 (Cipro) gabapentin 300 mg capsule See Rx Instructions PO TID #240 12/10/21 12/27/21 caps metronidazole 500 mg tablet 500 mg PO TID #21 tabs 12/10/21 12/27/21 hydromorphone 2 mg tablet 1 tab PO Q6H 12/11/21 12/27/21 potassium chloride 10 mEq 10 meq PO DAILY #10 caps 12/27/21 capsule,extended release Previous Rx's Medication Instructions Recorded atorvastatin 20 mg tablet 20 mg PO QPM #90 tabs 06/10/21 bupropion HCl 150 mg 24 hr tablet, 150 mg PO QAM #90 tabs 11/12/21 extended release (Wellbutrin XL) hydrochlorothiazide 25 mg tablet 25 mg PO DAILY #90 tabs 11/12/21 metformin 500 mg tablet 500 mg PO DAILY #90 tabs 11/12/21 clopidogrel 75 mg tablet (Plavix) 75 mg PO DAILY #90 tabs 11/27/21 blood sugar diagnostic (Blood #100 ea 12/10/21 Glucose Test strips) ciprofloxacin HCl 500 mg tablet 500 mg PO BID #14 tabs 12/10/21 (Cipro) gabapentin 300 mg capsule See Rx Instructions PO TID #240 12/10/21 caps metronidazole 500 mg tablet 500 mg PO TID #21 tabs 12/10/21 potassium chloride 10 mEq 10 meq PO DAILY #10 caps 12/27/21 capsule,extended release Allergies Allergy/AdvReac Type Severity Reaction Status Date / Time No Known Allergies Allergy Verified 12/11/21 10:02 General Stated Complaint: GenMedical TAE: 3 Review of Systems <Rubén Mccray NP - Last Filed: 12/28/21 08:47> Constitutional Constitutional: Denies chills, Denies fever(s) and Reports poor appetite ENT Ears, Nose, Mouth, and Throat: Reports sore throat Cardiovascular Cardiovascular: Denies chest pain, Denies syncope and Denies dyspnea Respiratory Respiratory: Denies cough and Denies dyspnea Gastrointestinal Gastrointestinal: Reports abdominal pain, Denies change in stool character, Denies diarrhea, Denies nausea and Denies vomiting Genitourinary Genitourinary: Denies dysuria Integumentary/Breasts Skin/Breast: Reports as per HPI and Reports non-healing lesions Neurologic Neurologic: Denies syncope [facility] <Rubén Mccary NP - Last Filed: 12/28/21 08:47> All Active Problems (Updated 12/27/21 @ 20:18 by JESSIE Everett) Open abdominal wall wound (Acute) Abdominal pain (Acute) Hypokalemia (Acute) Hypomagnesemia (Acute) Abdominal wound dehiscence (Acute) Obesity (Chronic) Bilateral knee pain (Acute) Bilateral primary osteoarthritis of knee (Acute) Depression (Chronic) Open abdominal wall wound (Acute) Infection and inflammatory reaction due to other internal prosthetic devices, implants and grafts, subsequent encounter (Acute ~09/30/21) 09/30/21 Infectious Disease Neuropathic pain (Acute ~10/2021) 10/17/21 Surgical Note Unspecified open wound of abdominal wall, unspecified quadrant without penetration into peritoneal cavity, subsequent encounter (Acute ~07/2021) 10/07/21 F/u General Surgery Stroke (Chronic) Mild cognitive impairment (Acute) De Quervain's tenosynovitis, left (Acute) Delayed wound healing (Acute) Two area of scabbing with Hx exudate and delayed healing 08/12/21 admitted ABD Wall Absess - debrided and Vac placed Hyperlipidemia (Acute) Asthma (Chronic) Hypertension (Chronic) Chronic apical abscess (Acute) Diabetes mellitus type 2, controlled (Acute ~04/2021) Tobacco abuse (Acute) SBO (small bowel obstruction) (Acute) BMI 45.0-49.9, adult (Acute) Dehydration (Acute) Recurrent ventral hernia (Acute) Repair at [facility] [place] 04/25/21 Ventral hernia with bowel obstruction (Acute) Internal derangement of right knee (Acute) Depo-medrol injection: 01/21/2021 Internal derangement of left knee (Acute) DEPO MEDROL INJECTION 04/17/21 Medical History Abscess of abdominal wall [facility] 09/19/21 note Anal fissure Diverticulitis History of anal fissures Surgical History 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 H/O hernia repair (04/25/21) Repair incarcerated ventral hernia-[place] H/O hernia repair (~07/23/21) Repair incisional/ventral hernia with mesh-[place] History of x2 History of cholecystectomy History of colostomy History of hernia repair umbilical x3 History of partial colectomy Hx of colonoscopy S/P debridement (~09/13/21) Abscess of ABD wall, [facility] Status post arthroscopy of right knee (12/04/20) With partial medial meniscectomy Status post hysterectomy Family History Father Alcohol use disorder Cancer pancreatic Diabetes Hypertension Brother Alcohol use disorder Depression Hypertension Sister Alcohol use disorder Asthma Depression Mother Anxiety Heart disease Hypertension Son Asthma Social History Smoking/Tobacco Use Status: Current every day Tobacco Type: cigarettes Smoking packs per day: 1 Smoking cigarettes per day: 20.0 Years smoked: 43 Smoking pack- years: 43.00 Quit status: considering quitting Second Hand Exposure: No Smoking risk assessment performed?: Yes Alcohol Intake: never Drug use: Never Substance use type: does not use Adopted: No Caregiver/Support person: No Foster care: No Household members: family Housing: house Number of Children: 2 number of grandchildren: 1 Communication Needs: None Education Level: college Details: Associate's Degree Do you need help understanding health information?: Rarely Pets and animals: Yes (2) Pets and animals: cat(s) Sexually active: No Current gender identity: female What is your relationship status?: never How often do you talk on the phone with friends or family?: twice per week Do you belong to any clubs or organized social groups?: no Panel score (0-1 are the most socially isolated patients): 0 What type of physical activity do you participate in: none Nubia/Synagogue: None Special nubia needs: No Seatbelt use: always Helmet use: No 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 Do you feel safe at home: Yes Do you feel safe in your relationship?: Yes Exam <Rubén Mccray NP - Last Filed: 12/28/21 08:47> Narrative Exam Narrative: Abdominal exam some difficult due to anxiety and patient's reported severe pain Const General: cooperative, in distress moderate and anxious Nutritional Appearance: obese Orientation: alert, awake and oriented x3 Resp Effort & Inspection: normal respiratory effort, able to speak in complete sentences, no respiratory distress and tachypneic Auscultation: clear to auscultation bilaterally Cardio Rate: regular rate Rhythm: regular rhythm Heart Sounds: S1 normal and S2 normal GI Inspection: large pannus, obesity and other (Open abdominal wounds) Palpation: soft and guarding Neuro General: patient alert, patient awake, patient oriented x3 and moves all extremities Course <Rubén Mccray NP - Last Filed: 12/28/21 08:47> Vital Signs Vital signs: Vital Signs Pulse 90 12/27/21 12:38 Respiratory Rate 18 12/27/21 12:38 Blood Pressure 162/84 H 12/27/21 12:38 Pulse Oximetry 96 12/27/21 12:38 Temperature Source Oral 12/27/21 12:38 Pulse 90 12/27/21 12:38 Respiratory Rate 16 12/27/21 14:54 Respiratory Effort Non-Labored 12/27/21 14:54 Respiratory Depth Normal 12/27/21 14:54 Respiratory Pattern Normal 12/27/21 14:54 Blood Pressure 162/84 H 12/27/21 12:38 Blood Pressure Position Sitting 12/27/21 12:38 Pulse Oximetry 96 12/27/21 12:38 Oxygen Delivery Method Room Air 12/27/21 12:38 Oxygen Flow Rate 0 12/27/21 12:38 Pain Level 10 12/27/21 12:38 Lab/Test Results Lab/Test Results: 12/27/21 15:45 Abdomen Wound Culture - Pending 12/27/21 15:45 Abdomen Gram Stain - Pending Laboratory Tests Range/Units 12/27/21 12/27/21 12/27/21 15:08 15:08 15:29 WBC (4.4-10.8) 10^3/uL 11.37 H RBC (3.93-5.22) 10^6/uL 4.57 Hgb (11.2-15.7) g/dL 13.7 Hct (36.0-46.0) % 41.4 MCV (80-95) fL 91 MCH (27.0-33.0) pg 30.0 MCHC (32.0-36.0) % 33.1 RDW (11.7-14.6) % 12.5 Plt Count (130-400) 10^3/uL 394 MPV (8.0-11.0) fL 8.9 Immature Gran % 0.4 Neutrophils % 57.7 Lymphocytes % 30.7 Monocytes % 7.1 Eosinophils % 3.2 Basophils % 0.9 Nucleated RBC % (0.0-0.3) % 0.0 Absolute Neutrophils (1.2-6.7) 10^3/uL 6.56 Absolute Lymphocytes (1.2-3.4) 10^3/uL 3.49 H Absolute Monocytes (0.1-0.8) 10^3/uL 0.81 H Absolute Eosinophils (0.0-0.7) 10^3/uL 0.36 Absolute Basophils (0.0-0.2) 10^3/uL 0.10 VBG Lactate (0.6-1.4) mmol/L 1.4 Sodium (136-145) mmol/L 137 Potassium (3.5-5.1) mmol/L 2.9 L Chloride (98-107) mmol/L 98 Carbon Dioxide (21.0-32.0) mmol/L 31.8 Anion Gap (3-11) mmol/L 7.2 BUN (7-18) mg/dL 17 Creatinine (0.55-1.02) mg/dL 0.7 Est GFR (CKD-EPI 2020) (mL/min/1.73m2) 99.57 Glucose (74-106) mg/dL 160 H Calcium (8.5-10.1) mg/dL 9.6 Magnesium (1.8-2.4) mg/dL 1.7 L Total Bilirubin (0.2-1.0) mg/dL 0.2 AST (15-37) U/L 10 L ALT (14-59) U/L 20 Alkaline Phosphatase (46-116) U/L 121 H Total Protein (6.4-8.2) g/dL 7.6 Albumin (3.4-5.0) g/dL 3.0 L Sign Out <Rubén Mccray NP - Last Filed: 12/28/21 08:47> Sign Out Data: Sign Out Comment: Patient pending labs and CT imaging for chief complaint of abdominal wall chronic wound with acute worsening pain drainage and size Last updated by Rubén Mccray NP at 12/27/21 16:07
[2021-12-27 16:11] LABS: Procalcitonin < 0.1 ng/mL
[2021-12-27] MEDS: Potassium Chloride 20 MEQ TABCR 40 MEQ PO (16:34)
[2021-12-27] MEDS: Magnesium Oxide 400 MG TAB PO (16:34)
[2021-12-27] MEDS: Omnipaque 350 MG/ML 100 ML BTL IJ (16:39)
[2021-12-27] MEDS: POTASSIUM CHLORIDE 20 MEQ/100 ML BAG 50 MEQ IVPB (17:04)
--- NOTE | 2021-12-27 17:26 | DI.VRAD_ITS ---
PROCEDURE INFORMATION: Exam: CT Abdomen And Pelvis With Contrast Exam date and time: 12/27/2021 4:34 PM Age: 61 years old Clinical indication: Other: Abd wall pain post ops infection TECHNIQUE: Imaging protocol: Computed tomography of the abdomen and pelvis with contrast. Radiation optimization: All CT scans at this facility use at least one of these dose optimization techniques: automated exposure control; mA and/or kV adjustment per patient size (includes targeted exams where dose is matched to clinical indication); or iterative reconstruction. Contrast material: 350; Contrast volume: 100 ml; Contrast route: INTRAVENOUS (IV); COMPARISON: CT ABDOMEN PELVIS W 12/11/2021 11:47 AM FINDINGS: Lungs: The visualized portions of the lung bases are normal. Liver: Normal. No mass. Gallbladder and bile ducts: There has been a cholecystectomy. Pancreas: Normal. No ductal dilation. Spleen: Normal. No splenomegaly. Adrenal glands: Normal. No mass. Kidneys and ureters: Normal. No hydronephrosis. Stomach and bowel: Mild diverticulosis is present in the distal colon. Appendix: No evidence of appendicitis. Intraperitoneal space: Unremarkable. No free air. No significant fluid collection. Vasculature: The vasculature demonstrates diffuse moderate atherosclerotic calcification. Lymph nodes: Unremarkable. No enlarged lymph nodes. Urinary bladder: Unremarkable as visualized. Reproductive: Unremarkable as visualized. Bones/joints: Unremarkable. No acute fracture. Soft tissues: Stable midline abdominal wall defect with mild subcutaneous fat stranding and areas of scarring. No evidence of abdominal wall abscess. IMPRESSION: 1. Stable midline abdominal wall defect with mild subcutaneous fat stranding and areas of scarring. No evidence of abdominal wall abscess. 2. Mild sigmoid diverticulosis. Dictated and Authenticated by: Panchito Irene MD. Ordering:JUAREZ Montana MD
[2021-12-27 18:58] LABS: Bilirubin Negative (Negative); Blood Trace-lysed (Negative); Clarity Clear (Clear); Glucose Negative (Negative); Ketones Negative (Negative); Leukocyte Esterase Negative (Negative); Nitrite Negative (Negative); Specific Gravity 1.015 (1.005-1.025); Urobilinogen 0.2 EU/dL (Up TO 0.2); pH 6.5 (5-8)
[2021-12-27 19:44] LABS: Bacteria Rare HPF (Negative); C & S Indicated? No; Casts Negative LPF (Negative); Epithelial Cells Moderate HPF (Negative); Mucus Negative (Negative); RBC 0-2 HPF (0-2); WBC 0-2 HPF (0-5)
[2021-12-27 19:49] LABS: Crystals Negative HPF (Negative)
== END 2021-12-27 22:37 | disposition home or self-care (01) ==
PROVIDERS: Nurse Practitioner Family; Emergency Provider Physician Assistant; PCP Nurse Practitioner
DX: T81.30XA Disruption of wound, unspecified, initial encounter (principal); R10.9 Unspecified abdominal pain; E87.6 Hypokalemia; E83.42 Hypomagnesemia
CPT/HCPCS: 36415; 80053; 84145; 87077; 96361; 96365; 96366; 96375; 96376; 99285; 74177; 81003; 81015; 83605; 83735; 85025; 87070; 87186; 87205; 99284; J1170; J3480; J3490

== ENCOUNTER 2022-01-06 14:41 | Outpatient (CLI) | payer MEDICAID, SELFPAY ==
--- NOTE | 2022-01-06 15:06 | W.CARDEVENT ---
Date of service: 01/06/22 Time of Service: 15:06 Cardiac Event Recorder Referring Provider:: Shawna Hunter Indications:: Stroke Cardiac Event Note: This is a 30-day cardiac event monitor ordered for stroke Rhythm was sinus with an average heart rate of 78. Minimum was 57, maximum 106 There was no atrial fibrillation, no high-grade AV block, no pauses greater than 3 seconds There was one 4 beat run of nonsustained ventricular tachycardia There were no apparent patient symptoms
== END 2022-01-06 14:42 | disposition home or self-care (01) ==
LOC: CARDOPNVT 14:41
PROVIDERS: PCP Nurse Practitioner; Visit Provider Internal Medicine Cardiovascular Disease
DX: I63.9 Cerebral infarction, unspecified (principal); I47.20 Ventricular tachycardia, unspecified

== ENCOUNTER 2022-01-08 14:52 | Outpatient (CLI) | payer MEDICAID, SELFPAY ==
[2022-01-08 14:04] LABS: Anion Gap 4.1 mmol/L (3-11); BUN 20 mg/dL (7-18); CO2 33.9 mmol/L (21.0-32.0); CREATININE 0.8 mg/dL (0.55-1.02); Calcium 9.8 mg/dL (8.5-10.1); Chloride 99 mmol/L (98-107); Estimated GFR 84.82 (mL/min/1.73m2); Glucose 174 mg/dL (74-106); Potassium 3.1 mmol/L (3.5-5.1); Sodium 137 mmol/L (136-145)
== END 2022-01-08 14:53 | disposition home or self-care (01) ==
LOC: LBO 15:01
PROVIDERS: PCP Nurse Practitioner; Visit Provider Nurse Practitioner
DX: E87.6 Hypokalemia (principal)
CPT/HCPCS: 36415; 80048

== ENCOUNTER → 2022-03-04 01:10 | Outpatient (CLI) | payer MEDICAID, SELFPAY ==
[2022-03-04] MEDS: Barium Sulfate 2% W/V-Berry Smoothie 450 ML BTL 900 ML PO (07:14)
[2022-03-04] MEDS: Omnipaque 350 MG/ML 500 ML BTL-Imaging package IJ (09:23)
[2022-03-04] MEDS: Normal Saline - Diluent 50 ML VIAL IJ (09:24)
--- NOTE | 2022-03-04 09:30 | DI.CT_ITS ---
Exam(s) CT ABDOMEN PELVIS W EXAM: CT ABDOMEN PELVIS W CLINICAL HISTORY: OPEN WOUND ABD WALL, S31.109D,ABSCESS,TRAUMA. TECHNIQUE: Imaging Protocol: Axial computed tomography images with coronal and sagittal reformatted images were created and reviewed CONTRAST MATERIAL: Intravenous: Omnipaque-350 100cc Oral: Yes. Oral contrast was administered for bowel opacification. COMPARISON: CT CT ABDOMEN PELVIS W from 12/27/2021 FINDINGS: VISUALIZED LUNG BASES: No nodules nor pleural effusions evident. ABDOMEN: There is no ascites. Anterior abdominal wound healing by secondary intention. There is no abscess. No true hernia at this level. No small bowel obstruction. All the bowel loops exhibit normal diame ters and without abnormal thickened hurley. LIVER: There are no focal hepatic lesions evident . GALLBLADDER/BILIARY: Gallbladder is again noted be surgically absent. CBD not dilated. CBD is not d ilated. PANCREAS: No evidence of pancreatic mass nor dilatation of the pancreatic duct. SPLEEN: Spleen is not enlarged. No obvious intrasplenic lesions. Splenic and portal veins are paten t. ADRENALS: There are no significant adrenal masses. KIDNEYS:Small 5 millimeter cyst in the posterior cortex of the left kidney. No other significant evelyn al findings. No solid renal masses. No calculi nor hydronephrosis.. ABDOMINAL AORTA: Fusiform infrarenal abdominal aortic aneurysm. Maximum diameter 2.7 cm. Common carol ac arteries are not dilated. LYMPH NODES:There is no retroperitoneal nor paraaortic adenopathy. ABDOMINAL WALL: As above with some further improvement in the appearance with less subcutaneous strea cristopher when compared to 12/27/2021. GI: There is no evidence of bowel obstruction, free air, nor abscess. PELVIS: GI: No evidence of appendicitis.Sigmoid diverticulosis but no evidence of acute diverticulitis.There is also evidence of partial sigmoid resection. No inflammatory findings at this level. LYMPH NODES: There is no intrapelvic nor inguinal adenopathy. REPRODUCTIVE: Uterus is surgically absent. There are no abnormal adnexal masses. No free fluid in t he pelvis. URINARY BLADDER: Unremarkable. OSSEOUS: No significant osseous lesions. Degenerative anterolisthesis L5 upon S1. No fractures evident. IMPRESSION: 1. Compared to prior CT of 12/27/2021 there is again noted evidence of a healing anterior abdominal w all wound by secondary intention. There is less subcutaneous streaking on the present study. No forme d abscess. No free air. No bowel obstruction. 2. Other findings as above. RADIATION DOSE DELIVERED: 1,733.27mGy.cm Total DLP DATA REPOSITORY: All CT scans at this facility are submitted to the National Radiology Data Registry (NRDR) Dose Index Registry (DIR) with the [employer] (ACR). RADIATION OPTIMIZATION: All CT scans at this facility use at least one of these dose optimization te chniques: automated exposure control; mA and/or kV adjustment per patient size (includes targeted exa ms where dose is matched to clinical indication); or iterative reconstruction.
== END ==
PROVIDERS: PCP Nurse Practitioner; Visit Provider Surgery
DX: S31.109D Unspecified open wound of abdominal wall, unspecified quadrant without penetration into peritoneal cavity, subsequent encounter (principal); X58.XXXD Exposure to other specified factors, subsequent encounter
CPT/HCPCS: 74177

== ENCOUNTER 2022-03-24 17:28 | Emergency (ER) | payer MEDICAID, SELFPAY ==
[2022-03-24 17:39] VITALS: BP 142/92; PULSE 90; RESP 20; TEMP 37.2; O2SAT 96
[2022-03-24 18:15] LABS: Source Nasal/Nares
[2022-03-24 18:17] LABS: Abs Immature Grans 0.06 10^3/uL (0.0-0.06); Absolute Eosinophil Count 0.37 10^3/uL (0.0-0.7); Absolute Lymphocyte Count 3.74 10^3/uL (1.2-3.4); Basophils % 0.8; Eosinophils % 3.1; HCT 46.1 % (36.0-46.0); HGB 14.9 g/dL (11.2-15.7); Immature Grans % 0.5; Lymphocytes % 31.3; MCH 28.8 pg (27.0-33.0); MCHC 32.3 % (32.0-36.0); MCV 89 fL (80-95); MPV 9.3 fL (8.0-11.0); Monocytes % 5.9; Neutrophils % 58.4; Platelet Count 359 10^3/uL (130-400); RBC 5.17 10^6/uL (3.93-5.22); RDW-SD 45.7 fL; WBC 11.94 10^3/uL (4.4-10.8)
[2022-03-24 18:19] LABS: Absolute Neutrophil Count 6.97 10^3/uL (1.2-6.7)
[2022-03-24 18:32] LABS: ALT 25 U/L (14-59); AST 15 U/L (15-37); Albumin 3.6 g/dL (3.4-5.0); Alkaline Phosphatase 144 U/L (46-116); Anion Gap 7.8 mmol/L (3-11); BUN 25 mg/dL (7-18); Bilirubin, Total 0.3 mg/dL (0.2-1.0); CO2 31.2 mmol/L (21.0-32.0); CREATININE 0.9 mg/dL (0.55-1.02); Calcium 9.7 mg/dL (8.5-10.1); Chloride 99 mmol/L (98-107); Estimated GFR 73.64 (mL/min/1.73m2); Glucose 175 mg/dL (74-106); Potassium 3.1 mmol/L (3.5-5.1); Sodium 138 mmol/L (136-145); Total Protein 8.3 g/dL (6.4-8.2)
[2022-03-24 18:37] LABS: ETHANOL BLOOD < 3.0 mg/dL (<10)
[2022-03-24 18:38] LABS: Acetaminophen < 2 ug/mL (10-30)
[2022-03-24 18:47] LABS: COVID-19 PCR Negative (Negative)
--- NOTE | 2022-03-24 19:41 | ED.GENADUL_ITS ---
Discharge Plan Disposition Patient Disposition: Home Condition: Stable Discharge Details Clinical Impression: Depression with suicidal ideation Primary Care Provider: Ally Ortiz ED Provider: Rubén Mccray Home Meds and New Rx's Prescriptions: Continued hydrochlorothiazide 25 mg tablet 25 mg PO DAILY Qty: 90 3RF metformin 500 mg tablet 500 mg PO DAILY Qty: 90 3RF magnesium oxide [MgO] 400 mg (241.3 mg magnesium) tablet 400 mg PO DAILY Qty: 90 3RF bupropion HCl 300 mg tablet extended release 24 hr 300 mg PO QAM Qty: 90 3RF baclofen 10 mg tablet 10 mg PO BID Qty: 60 3RF hydromorphone 2 mg tablet 2 mg PO DAILY MDD 2mg PRN (Reason: pain) Qty: 12 0RF Rx Instructions: Take 1 tab prior to dressing changes 3x weekly. pregabalin 50 mg capsule 50 mg PO TID Qty: 84 0RF Rx Instructions: Start when Gabapentin taper complete. potassium chloride 20 mEq tablet extended release 20 meq PO DAILY Qty: 90 0RF atorvastatin 20 mg tablet 20 mg PO QPM Qty: 90 3RF sennosides 8.6 mg tablet 17.2 mg PO DAILY clopidogrel [Plavix] 75 mg tablet 75 mg PO DAILY Qty: 90 3RF eszopiclone [Lunesta] 2 mg tablet 2 mg PO QHS PRN (Reason: Insomnia) Label Comments: 10/17/21 note (DME) Blood Glucose Test Strip See Rx Instructions .ROUTE .MEDSUPPLY Qty: 100 3RF Rx Instructions: As directed to check blood glucose daily. No insulin. ONE TOUCH VERIO Discharge Instructions Instructions: Depression (ED), Help Prevent Suicide (ED) Additional Instructions: Please follow the established safety plan. If you have a change in your condition or have significant worsening of your suicidal thoughts or depression feel free to return to the emergency department for reevaluation and reconsideration of admission. Referrals: [facility] [Outside] (Follow-up as discussed on safety plan) Discharge Data Discharge Date/Time-TO BE ENTERED AT DEPARTURE: 03/24/22 20:05 Medical Decision Making Patient presenting to the emergency department for chief complaint of severe depression with today starting to have suicidal ideations. Patient stated that she contemplated taking all of her medications in attempt to end her life. She states this is due to chronic abdominal pain from open postsurgical wound that is now chronic in nature. Patient denies any change of medical condition and states no worsening of symptoms. She states her only reason he came here is becoming suicidal due to severe depression that has been exacerbated by complete change of lifestyle and inability to do her normal daily functions. Physical exam shows sad tearful patient that is alert and oriented x4 normal cardiac and respiratory exam, patient has wound dressing on abdomen and states that it was just changed. No obvious or significant drainage noted no surrounding erythema. Given that patient contemplated overdose we will check labs and obtain a psychiatric evaluation. Reviewed labs and patient had stable CBC with pretty much no changes noted from previous ones on record, CMP did show slightly low potassium which patient states she will take when she gets home given that she has not taken her normal evening dose, slightly elevated BUN of 25, normal creatinine and GFR, glucose slightly elevated 175, alk phos 144 total protein high. Patient is not intoxicated and remainder of labs are unremarkable. Patient was seen by mental health screener they were able to develop a safety plan with [id number] who is present. Patient is voluntary and I see no concern for her being discharged given that she states that she does not want to be admitted at this time due to multiple hospital admissions and feeling that this will actually make her depression and suicidality worse. Did inform patient to return for any new or significant worsening of condition otherwise to follow establish safety plan that was developed. After discussion of diagnosis and plan of care patient has no further needs, questions, or concerns and states clear understanding to return to the emergency department for any worsening symptoms. This documentation was generated using [employer] dictation system, please disregard any oddities of phrase or misspellings. HPI General Mode of arrival: ambulatory . Date/Time Provider Initiated Documentation: 03/24/22 17:35 . Information obtained by: patient, family and RN notes reviewed . History of Present Illness 61 year old F presents to the emergency department with the chief complaint of Depression with suicidal ideations, described as severe, and is localized to the abdomen (Chronic unchanged abdominal pain). Patient started experiencing this month(s) and it has been constant. No relieving factors improve symptom(s), No exacerbating factors reported . Patient notes no other symptoms.. Patient did receive the following treatments prior to arrival, none Related Data Home Medications Medication Instructions Recorded Confirmed atorvastatin 20 mg tablet 20 mg PO QPM #90 tabs 06/10/21 02/25/22 eszopiclone 2 mg tablet (Lunesta) 2 mg PO QHS PRN Insomnia 10/23/21 02/25/22 hydrochlorothiazide 25 mg tablet 25 mg PO DAILY #90 tabs 11/12/21 02/25/22 metformin 500 mg tablet 500 mg PO DAILY #90 tabs 11/12/21 02/25/22 clopidogrel 75 mg tablet (Plavix) 75 mg PO DAILY #90 tabs 11/27/21 02/25/22 sennosides 8.6 mg tablet 17.2 mg PO DAILY 11/27/21 02/25/22 blood sugar diagnostic (Blood #100 ea 12/10/21 02/25/22 Glucose Test strips) magnesium oxide 400 mg (241.3 mg 400 mg PO DAILY #90 tabs 01/15/22 02/25/22 magnesium) tablet (MgO) baclofen 10 mg tablet 10 mg PO BID #60 tabs 01/29/22 02/25/22 bupropion HCl 300 mg 24 hr tablet, 300 mg PO QAM #90 tabs 01/29/22 02/25/22 extended release hydromorphone 2 mg tablet 2 mg PO DAILY PRN pain #12 tabs 02/26/22 02/26/22 potassium chloride 20 mEq 20 meq PO DAILY #90 tabs 02/26/22 02/26/22 tablet,extended release pregabalin 50 mg capsule 50 mg PO TID #84 caps 02/26/22 02/26/22 Previous Rx's Medication Instructions Recorded atorvastatin 20 mg tablet 20 mg PO QPM #90 tabs 06/10/21 hydrochlorothiazide 25 mg tablet 25 mg PO DAILY #90 tabs 11/12/21 metformin 500 mg tablet 500 mg PO DAILY #90 tabs 11/12/21 clopidogrel 75 mg tablet (Plavix) 75 mg PO DAILY #90 tabs 11/27/21 blood sugar diagnostic (Blood #100 ea 12/10/21 Glucose Test strips) magnesium oxide 400 mg (241.3 mg 400 mg PO DAILY #90 tabs 01/15/22 magnesium) tablet (MgO) baclofen 10 mg tablet 10 mg PO BID #60 tabs 01/29/22 bupropion HCl 300 mg 24 hr tablet, 300 mg PO QAM #90 tabs 01/29/22 extended release hydromorphone 2 mg tablet 2 mg PO DAILY PRN pain #12 tabs 02/26/22 potassium chloride 20 mEq 20 meq PO DAILY #90 tabs 02/26/22 tablet,extended release pregabalin 50 mg capsule 50 mg PO TID #84 caps 02/26/22 Allergies Allergy/AdvReac Type Severity Reaction Status Date / Time aspirin AdvReac Unknown N/V Verified 03/04/22 07:40 oxycodone AdvReac Unknown N/V Verified 03/04/22 07:40 General Stated Complaint: PsychEval TAE: 2 Review of Systems Narrative: 8 systems reviewed and unremarkable except what is marked below. Gastrointestinal Gastrointestinal: Reports abdominal pain (Chronic unchanged) Psychiatric Psychiatric: Reports as per HPI, Reports change in appetite, Reports depression, Denies homicidal ideation and Reports suicidal ideation PFSH All Active Problems Depression with suicidal ideation (Acute) Chronic pain following surgery or procedure (Acute) due to ventral hernia repair abd abscess of abd wall 07/23/21 Obesity (Chronic) Bilateral knee pain (Acute) Bilateral primary osteoarthritis of knee (Acute) Depression (Chronic) Open abdominal wall wound (Acute) Infection and inflammatory reaction due to other internal prosthetic devices, implants and grafts, subsequent encounter (Acute ~09/30/21) 09/30/21 Infectious Disease Neuropathic pain (Acute ~10/2021) 10/17/21 Surgical Note Unspecified open wound of abdominal wall, unspecified quadrant without penetration into peritoneal cavity, subsequent encounter (Acute ~07/2021) 10/07/21 F/u General Surgery Stroke (Chronic) Mild cognitive impairment (Acute) De Quervain's tenosynovitis, left (Acute) Delayed wound healing (Acute) Two area of scabbing with Hx exudate and delayed healing 08/12/21 admitted ABD Wall Absess - debrided and Vac placed Hyperlipidemia (Acute) Asthma (Chronic) Hypertension (Chronic) Chronic apical abscess (Acute) Diabetes mellitus type 2, controlled (Acute ~04/2021) Tobacco abuse (Acute) SBO (small bowel obstruction) (Acute) BMI 45.0-49.9, adult (Acute) Dehydration (Acute) Recurrent ventral hernia (Acute) Repair at [facility] [place] [place] , incarcerated 04/25/21 Ventral hernia with bowel obstruction (Acute) Internal derangement of right knee (Acute) Depo-medrol injection: 01/21/2021 Internal derangement of left knee (Acute) DEPO MEDROL INJECTION 04/17/21 Medical History Abscess of abdominal wall [facility] [place] [place] 09/19/21 note Anal fissure Diverticulitis History of anal fissures Surgical History 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 H/O hernia repair (04/25/21) Repair incarcerated ventral hernia-[place] H/O hernia repair (~07/23/21) Repair incisional/ventral hernia with mesh-[place] History of x2 History of cholecystectomy History of colostomy History of hernia repair umbilical x3 History of partial colectomy Hx of colonoscopy S/P debridement (~09/13/21) Abscess of ABD wall, [facility] [place] [place] Status post arthroscopy of right knee (12/04/20) With partial medial meniscectomy Status post hysterectomy Family History Father Alcohol use disorder Cancer pancreatic Diabetes Hypertension Brother Alcohol use disorder Depression Hypertension Sister Alcohol use disorder Asthma Depression Mother Anxiety Heart disease Hypertension Son Asthma Social History Smoking/Tobacco Use Status: Current every day Tobacco Type: cigarettes Smoking packs per day: 1 Smoking cigarettes per day: 20.0 Years smoked: 43 Smoking pack-years: 43.00 Quit status: considering quitting Second Hand Exposure: No Smoking risk assessment performed?: Yes Alcohol Intake: never Drug use: Never Substance use type: does not use Adopted: No Caregiver/Support person: No Foster care: No Household members: family Housing: house Number of Children: 2 number of grandchildren: 1 Communication Needs: None Education Level: college Details: Associate's Degree Do you need help understanding health information?: Rarely Pets and animals: Yes (2) Pets and animals: cat(s) Sexually active: No Current gender identity: female What is your relationship status?: never How often do you talk on the phone with friends or family?: twice per week Do you belong to any clubs or organized social groups?: no Panel score (0-1 are the most socially isolated patients): 0 What type of physical activity do you participate in: none Nubia/Rastafarian: None Special nubia needs: No Seatbelt use: always Helmet use: No Drive intox or ride w/intox parts delivery driver: No Do you feel safe at home: Yes Do you feel safe in your relationship?: Yes Exam Const General: cooperative Orientation: alert, awake and oriented x3 Limitations: mental status not altered [facility] Head: normal to inspection, normocephalic and atraumatic Ears: hearing grossly normal bilaterally Mouth: moist mucous membranes Eyes General: appearance normal, both eyes and all related structures Pupils: PERRL EOM: EOM intact bilaterally Neck Thyroid: thyroid normal Resp Effort & Inspection: normal respiratory effort, able to speak in complete sentences and no respiratory distress Auscultation: clear to auscultation bilaterally Cardio Rate: regular rate and not tachycardic Rhythm: regular rhythm Heart Sounds: S1 normal, S2 normal, no click, no gallops, no murmurs and no rubs GI Inspection: obesity and other (Abdominal wound dressing in place with no drainage noted no surrounding bryan) Neuro General: patient alert, patient awake, patient oriented x3, gait normal, moves all extremities and no focal motor deficits Cognition: normal cognition Speech: speech normal Psych Speech and Movement: speech and movement normal and speech clear Affect: sad Attitude: cooperative Thought Process: normal Thought Content: normal and suicidality Course Vital Signs Vital signs: Vital Signs Temperature 37.2 C 03/24/22 17:39 Pulse 90 03/24/22 17:39 Respiratory Rate 20 03/24/22 17:39 Blood Pressure 142/92 H 03/24/22 17:39 Pulse Oximetry 96 03/24/22 17:39 Temperature 37.2 C 03/24/22 17:39 Temperature Source Oral 03/24/22 17:39 Pulse 90 03/24/22 17:39 Respiratory Rate 20 03/24/22 17:39 Respiratory Effort 03/24/22 18:21 Blood Pressure 142/92 H 03/24/22 17:39 Blood Pressure Position Sitting 03/24/22 17:39 Pulse Oximetry 96 03/24/22 17:39 Oxygen Delivery Method Room Air 03/24/22 17:39 Oxygen Flow Rate 0 03/24/22 17:39 Pain Level 8 03/24/22 17:39 Lab/Test Results Lab/Test Results: Laboratory Tests Range/Units 03/24/22 03/24/22 03/24/22 18:09 18:09 18:09 WBC (4.4-10.8) 10^3/uL 11.94 H RBC (3.93-5.22) 10^6/uL 5.17 Hgb (11.2-15.7) g/dL 14.9 Hct (36.0-46.0) % 46.1 H MCV (80-95) fL 89 MCH (27.0-33.0) pg 28.8 MCHC (32.0-36.0) % 32.3 RDW (11.7-14.6) % 14.0 Plt Count (130-400) 10^3/uL 359 MPV (8.0-11.0) fL 9.3 Immature Gran % 0.5 Neutrophils % 58.4 Lymphocytes % 31.3 Monocytes % 5.9 Eosinophils % 3.1 Basophils % 0.8 Nucleated RBC % (0.0-0.3) % 0.0 Absolute Neutrophils (1.2-6.7) 10^3/uL 6.97 H Absolute Lymphocytes (1.2-3.4) 10^3/uL 3.74 H Absolute Monocytes (0.1-0.8) 10^3/uL 0.70 Absolute Eosinophils (0.0-0.7) 10^3/uL 0.37 Absolute Basophils (0.0-0.2) 10^3/uL 0.10 Sodium (136-145) mmol/L 138 Potassium (3.5-5.1) mmol/L 3.1 L Chloride (98-107) mmol/L 99 Carbon Dioxide (21.0-32.0) mmol/L 31.2 Anion Gap (3-11) mmol/L 7.8 BUN (7-18) mg/dL 25 H Creatinine (0.55-1.02) mg/dL 0.9 Est GFR (CKD-EPI 2020) (mL/min/1.73m2) 73.64 Glucose (74-106) mg/dL 175 H Calcium (8.5-10.1) mg/dL 9.7 Total Bilirubin (0.2-1.0) mg/dL 0.3 AST (15-37) U/L 15 ALT (14-59) U/L 25 Alkaline Phosphatase (46-116) U/L 144 H Total Protein (6.4-8.2) g/dL 8.3 H Albumin (3.4-5.0) g/dL 3.6 Salicylates (<2.8) mg/dL 4.0 Acetaminophen (10-30) ug/mL < 2 Ethyl Alcohol (<10) mg/dL < 3.0 COVID-19 Source SARS-CoV-2 (PCR) (Negative) Range/Units 03/24/22 18:10 WBC (4.4-10.8) 10^3/uL RBC (3.93-5.22) 10^6/uL Hgb (11.2-15.7) g/dL Hct (36.0-46.0) % MCV (80-95) fL MCH (27.0-33.0) pg MCHC (32.0-36.0) % RDW (11.7-14.6) % Plt Count (130-400) 10^3/uL MPV (8.0-11.0) fL Immature Gran % Neutrophils % Lymphocytes % Monocytes % Eosinophils % Basophils % Nucleated RBC % (0.0-0.3) % Absolute Neutrophils (1.2-6.7) 10^3/uL Absolute Lymphocytes (1.2-3.4) 10^3/uL Absolute Monocytes (0.1-0.8) 10^3/uL Absolute Eosinophils (0.0-0.7) 10^3/uL Absolute Basophils (0.0-0.2) 10^3/uL Sodium (136-145) mmol/L Potassium (3.5-5.1) mmol/L Chloride (98-107) mmol/L Carbon Dioxide (21.0-32.0) mmol/L Anion Gap (3-11) mmol/L BUN (7-18) mg/dL Creatinine (0.55-1.02) mg/dL Est GFR (CKD-EPI 2020) (mL/min/1.73m2) Glucose (74-106) mg/dL Calcium (8.5-10.1) mg/dL Total Bilirubin (0.2-1.0) mg/dL AST (15-37) U/L ALT (14-59) U/L Alkaline Phosphatase (46-116) U/L Total Protein (6.4-8.2) g/dL Albumin (3.4-5.0) g/dL Salicylates (<2.8) mg/dL Acetaminophen (10-30) ug/mL Ethyl Alcohol (<10) mg/dL COVID-19 Source Nasal/Nares SARS-CoV-2 (PCR) (Negative) Negative
--- NOTE | 2022-03-24 20:28 | PDOC.MHCN_ITS ---
Date of service: 03/24/22 Time of Service: 19:30 PHQ-9 Over the last 2 weeks, how often have you been bothered by any of the following problems? 1. Little interest or pleasure in doing things: nearly every day 2. Feeling down, depressed, or hopeless: nearly every day 3. Trouble falling or staying asleep, or sleeping too much: nearly every day 4. Feeling tired or having little energy: nearly every day 5. Poor appetite or overeating: nearly every day 6. Feeling bad about yourself - or that you are a failure or have let yourself and your family down: nearly every day 7. Trouble concentrating on things, such as reading the newspaper or watching television: not at all 8. Moving or speaking so slowly that other people could have noticed? - Or the opposite - being so fidgety or restless that you have been moving around a lot more than usual: more than half the days 9. Thoughts that you would be better off or of hurting yourself in some way: nearly every day Total score: 23 If you checked off any problems, how difficult have these problems made it for you to do your work, take care of things at home, or get along with other people?: extremely difficult PHQ-9 Results: Positive Source: Developed by Drs. Jena Claude Bloom, Jaclyn Shane, Loco Lizama and colleagues, with an educational priya from [employer]. Suicide Severity Rate CSSRS Have you wished you were or wished you could go to sleep and not wake up?: Yes Have you actually had any thoughts of killing yourself?: Yes CSSRS2 Have you been thinking about how you might do this?: Yes Have you had these thoughts and had some intention of acting on them?: Yes Have you started to work out or worked out the details of how to kill yourself? Do you intend to carry out this plan?: No CSSRS3 Have you ever done anything, started to do anything or prepared to do anything to end your life?: No CSSRS4 Was this within the past three months?: No Screening Score Total Score: 4 Screening: Positive Mental Health Emergency Note Release [facility] release signed:: Yes Reason for Visit Jahaira presented to the emergency room after her and her brother in law called [phone] about how she was feeling. Jahaira has been feeling worthless and suicidal. In the last 2 weeks has the pt presented for ES prior to today?: Unknown Client Information Client is: New Well Housed: Yes Non Suicidal Self Injury Current: No History: No Safety Risk/Harm to Self or Others Current Ideation to Harm Self or Others: No Risk: Does risk to harm exist?: No Risk: N/A Duty to warn indicated: No Asssessment/Mental Status Appearance: Disheveled Attitude: Cooperative Behavior: Unremarkable Speech: Normal Affect: Cogruent with mood Mood: Sad, Stressed and Depressed Thought process: Unremarkable Hallucinations: No evidence Delusions: No evidence Attention: Unremarkable Perception: Not impaired Orientation: Fully orientated Memory: Intact Insight: Good Judgement: Fair Neurovegetative Symptoms Sleep: No change (Client reports sleeping for a few hours then waking up and repeating.) Appetitie: Decrease (Client reports her appetite is slowly decreasing.) Interests: Decrease Energy: Decrease Libido: Not applicable Substance Use: Do you use nicotine?: No Have you used substances in the last 7 days?: No Additional Issues: Assaultive/Threatening Behavior: No Medical Concerns: No Client engaged in active self harm w/weapon: No Threatening to run away: No Child reported abuse/neglect: No Voluntarily presenting for services: Yes Extreme Psychosis or extreme behavior is present: No Impression Jahaira presents to the emergency room with increased depression, feelings of being worthless, and suicidal ideation. Jahaira reports she wanted to overdose on her prescriptions today; but she gave her brother in law her medications. Jahaira reports she has great family supports. Jahaira stated if he has the medications she will be safe. Jahaira has never attempted suicide, but does have fleeting thoughts and a history of fleeting thoughts. Jahaira reports a decrease in appetite, an unusual sleep schedule, and decrease in interests due to being bed ridden.Jahaira lists her family as deterrents, specifically her grandson. Jahaira is tired of being bed ridden due to medical concerns. Jahaira and this underwriter mortgage loan created a safety plan with a referral to [facility] and consideration for the carebed included. Resources Reosmiya reviewed and given:: [phone], Crisis Bed, Community therapist and [facility] Plan/Disposition Recommended Disposition: Crisis bed, (Jahaira plans to consider the [facility] bed and discuss with her family.) No, [facility] Services [facility]: Therapy and Community resources. Plan: Jahaira is being safety planned home to follow up with [facility] daily in addition to a therapy referral and consideration for the carebed. Person reported agreement to plan: Yes Reports/communication Outcome discussed with: ED/Personnel
== END 2022-03-24 20:05 | disposition home or self-care (01) ==
PROVIDERS: Emergency Provider Nurse Practitioner Family; PCP Nurse Practitioner
DX: F32.A Depression, unspecified (principal); R45.851 Suicidal ideations; R10.9 Unspecified abdominal pain; G89.29 Other chronic pain; E87.6 Hypokalemia; R79.89 Other specified abnormal findings of blood chemistry; Z20.822 Contact with and (suspected) exposure to COVID-19
CPT/HCPCS: 80053; 87635; 99285; 80320; 80329; 85025

== ENCOUNTER 2022-03-26 14:43 | Outpatient (REF) | payer MEDICAID, SELFPAY ==
[2022-03-27 14:17] LABS: COVID-19 RT-PCR UVMMC Result Negative (Negative)
== END 2022-03-26 14:44 | disposition home or self-care (01) ==
LOC: LBN 14:43
PROVIDERS: PCP Nurse Practitioner; Referring Provider Nurse Practitioner; Visit Provider Nurse Practitioner
DX: Z20.822 Contact with and (suspected) exposure to COVID-19 (principal)
CPT/HCPCS: U0003

== ENCOUNTER 2022-04-17 03:20 | Outpatient (CLI) | payer MEDICAID, SELFPAY ==
[2022-04-17 09:29] LABS: HCT 45.3 % (36.0-46.0); HGB 14.6 g/dL (11.2-15.7); MCH 29.6 pg (27.0-33.0); MCHC 32.2 % (32.0-36.0); MCV 92 fL (80-95); MPV 9.5 fL (8.0-11.0); Platelet Count 331 10^3/uL (130-400); RBC 4.93 10^6/uL (3.93-5.22); RDW 14.2 % (11.7-14.6); RDW-SD 48.1 fL; WBC 10.06 10^3/uL (4.4-10.8)
[2022-04-17 10:00] LABS: ALT 22 U/L (14-59); AST 16 U/L (15-37); Albumin 3.4 g/dL (3.4-5.0); Alkaline Phosphatase 127 U/L (46-116); Anion Gap 6.2 mmol/L (3-11); BUN 21 mg/dL (7-18); Bilirubin, Total 0.3 mg/dL (0.2-1.0); CO2 32.8 mmol/L (21.0-32.0); CREATININE 0.9 mg/dL (0.55-1.02); Calcium 9.9 mg/dL (8.5-10.1); Calculated LDL 92 mg/dL (<100); Chloride 102 mmol/L (98-107); Cholesterol 162 mg/dL (<200); Estimated GFR 73.64 (mL/min/1.73m2); Glucose 133 mg/dL (74-106); HDL Cholesterol 43 mg/dL (40-60); Magnesium 1.8 mg/dL (1.8-2.4); Sodium 141 mmol/L (136-145); Total Protein 7.6 g/dL (6.4-8.2); Triglyceride 138 mg/dL (<150)
[2022-04-18 10:30] LABS: HIV-1/2 Ag & Ab Screen Negative (Negative)
[2022-04-18 10:38] LABS: Hepatitis C Ab w Rflx HCV PCR Negative (Negative)
== END 2022-04-17 03:21 | disposition home or self-care (01) ==
LOC: LBO 03:21
PROVIDERS: PCP Nurse Practitioner; Visit Provider Nurse Practitioner
DX: E11.9 Type 2 diabetes mellitus without complications (principal); E66.9 Obesity, unspecified; E78.5 Hyperlipidemia, unspecified; K04.7 Periapical abscess without sinus; Z11.59 Encounter for screening for other viral diseases; E83.42 Hypomagnesemia
CPT/HCPCS: 36415; 80053; 80061; 85027; 86803; 87389; 83735

== ENCOUNTER 2022-05-02 01:14 | Outpatient (CLI) | payer MEDICAID, SELFPAY ==
[2022-05-02 07:37] LABS: Anion Gap 8.6 mmol/L (3-11); BUN 19 mg/dL (7-18); CO2 27.4 mmol/L (21.0-32.0); CREATININE 0.8 mg/dL (0.55-1.02); Calcium 9.5 mg/dL (8.5-10.1); Chloride 106 mmol/L (98-107); Estimated GFR 84.82 (mL/min/1.73m2); Glucose 101 mg/dL (74-106); Potassium 3.9 mmol/L (3.5-5.1); Sodium 142 mmol/L (136-145)
== END 2022-05-02 01:15 | disposition home or self-care (01) ==
LOC: LBO 01:14
PROVIDERS: PCP Nurse Practitioner; Visit Provider Nurse Practitioner
DX: E87.6 Hypokalemia (principal)
CPT/HCPCS: 36415; 80048

== ENCOUNTER 2022-06-26 02:08 | Outpatient (CLI) | payer MEDICAID, SELFPAY ==
--- NOTE | 2022-06-26 14:00 | NS.NUTBLAN_ITS ---
Jahaira was referred for weight and glycemic management. 4'9 213 lbs Has lost over 30 lbs in last 2 years BMI: 46. Labs (04/17/22) Chol: 162, LDL:92, HDL: 43, Tri. A1C: 6.0% Meds: metformin 500 mg qd, ozempic .25 mg q week. Jahaira reports she has had severe pain since diverticulitis surgery last July. Her wound finally healed. Is seen weekly at [facility] wound clinic. She has been checking her blood sugars daily and her fasting levels are <120 mg/dl. She is eager to get knee surgery as she needs knee surgery. She lives with her family and typically eats a well balanced diet prepared by her brother. No excess simple sugars reported. Unable to exercise secondary to back and knee pain. Session today focused on ways to help reduce weight. Recommend continue eating 3 meals daily with focus on lean protein, healthy fats and complex carbs. No follow up planned at this time.
== END 2022-06-26 02:09 | disposition home or self-care (01) ==
PROVIDERS: PCP Nurse Practitioner; Visit Provider Dietitian, Registered
DX: E66.8 Other obesity (principal); E11.9 Type 2 diabetes mellitus without complications; Z68.42 Body mass index [BMI] 45.0-49.9, adult; Z71.3 Dietary counseling and surveillance; Z79.84 Long term (current) use of oral hypoglycemic drugs
CPT/HCPCS: 97802

== ENCOUNTER 2022-07-31 02:57 | Outpatient (CLI) | payer MEDICAID, SELFPAY ==
[2022-08-01 19:25] LABS: PTT (UVM) 34 secs (26-37)
[2022-08-01 19:34] LABS: D-Dimer (UVM) <150 ng/mL DDU (<=230)
[2022-08-04 10:17] LABS: Antithrombin 3, Funct. 100 % (85-125); Factor 8 Assay 122 % (50-150)
[2022-08-04 14:48] LABS: Dilute Russell Viper Venom 37.8 secs (25.2-42.2); LA Cascade Summary (See Note); Silica Clotting Time 61.1 secs (30.2-48.4)
[2022-08-04 22:13] LABS: Phospholipid Ab, IgG <9.4 GPL
[2022-08-05 15:58] LABS: Beta 2 GP1 Ab IgG <9.4 SGU; Beta 2 GP1 Ab IgM <9.4 SMU
[2022-08-06 11:54] LABS: Protein C, Functional >150 % (71-199); Protein S, Functional 114 % (64-147)
== END 2022-07-31 02:58 | disposition home or self-care (01) ==
LOC: LBO 02:57
PROVIDERS: PCP Nurse Practitioner; Visit Provider Student in an Organized Health Care Education/Training Program
DX: Z86.73 Personal history of transient ischemic attack (TIA), and cerebral infarction without residual deficits (principal)
CPT/HCPCS: 36415; 81240; 81241; 82784; 85300; 85303; 85306; 85610; 85613; 85730; 85732; 85240; 85379